=== PATIENT | male | born 1950 | race Caucasian/White ===

== ENCOUNTER → 2017-08-10 08:59 | Outpatient (CLI) | payer MEDICARE, MEDICAID, SELFPAY ==
[2017-08-10 10:46] VITALS: PULSE 83; PULSE 84; PULSE 91; PULSE 95; PULSE 98; PULSE 99; O2SAT 94; O2SAT 95; O2SAT 96; O2SAT 97
--- NOTE | 2017-08-10 12:11 | WT_ITS ---
PSN 6 Minute Walk Test - 6 Minute Walk Test 6 Minute Walk Test: 6 Minute Walk Test PSN:6-Minute Walk Test Start: 08/10/17 09: 33 Freq: Status: Active Protocol: RESP.6MINW Document 08/10/17 10:46 MISAELSANDEE (Rec: 08/10/17 10:48 TATYANALUCASSANDEE [id number]) 6 Minute Walk Test Date Performed 08/10/17 Time Performed 09:15 Height 5 ft 8 in Weight: 205 lb Weight in Pounds 205.[address]: Carlos Pop Assistive device used: None Pre-test Oxygen Delivery Method Room Air Pulse Ox (%) 94 Pulse Rate (60-100 beats/min) 84 Dyspnea Rico Scale (0-10) 0 Exertion Rico Scale (6-20) 6 1st minute Oxygen Delivery Method Room Air Pulse Ox (%) 95 Pulse Rate (60-100 beats/min) 91 2nd minute Oxygen Delivery Method Room Air Pulse Ox (%) 95 Pulse Rate (60-100 beats/min) 99 3rd minute Oxygen Delivery Method Room Air Pulse Ox (%) 95 Pulse Rate (60-100 beats/min) 95 4th minute Oxygen Delivery Method Room Air Pulse Ox (%) 95 Pulse Rate (60-100 beats/min) 98 5th minute Oxygen Delivery Method Room Air Pulse Ox (%) 95 Pulse Rate (60-100 beats/min) 98 6th minute Oxygen Delivery Method Room Air Pulse Ox (%) 96 Pulse Rate (60-100 beats/min) 98 Dyspnea Rico Scale (0-10) 2 Exertion Rico Scale (6-20) 14 Post-test Oxygen Delivery Method Room Air Pulse Ox (%) 97 Pulse Rate (60-100 beats/min) 83 Full Laps Walked 14 Partial Lap, Number of Tiles Walked 15 Total Distance Walked (ft) 841 - Interpretation Interpretation: The patient ambulated 841 feet over the course of 6 minutes on room air without assistive devices or breaks. Pretesting oxygen saturation was noted to be 94% on room air. With ambulation, the michelle oxygen saturation was 95%. Although there was evidence of impaired walk distance, there was no significant exertional oxygen desaturation noted. - Recommendations Recommendations: There is no indication for the use of supplemental oxygen at this time.
== END ==
PROVIDERS: Family Provider Family Medicine; PCP Family Medicine; Visit Provider Internal Medicine Critical Care Medicine
DX: J44.9 Chronic obstructive pulmonary disease, unspecified (principal)
CPT/HCPCS: 94618

== ENCOUNTER 2017-08-20 04:36 | Emergency (ER) | payer MEDICARE, MEDICAID, SELFPAY ==
[2017-08-20 04:37] VITALS: BP 123/65; PULSE 87; RESP 17; TEMP 36.5; O2SAT 98; BMI 30.2
--- NOTE | 2017-08-20 04:58 | CT_ITS ---
STUDY: CT ABDOMEN AND PELVIS WITHOUT CONTRAST REASON FOR EXAM: Male, 67 years old. Nausea and vomiting. Lower abdominal pain for 5 days. History of gastric ulcer, MRI, stent, CABG, and lumbar surgery. RADIATION DOSAGE (If Supplied By Facility): CTDIvol = ( 13.87 ) mGy, DLP = ( 678.97 ) mGycm TECHNIQUE: Transaxial images were obtained from the dome of the diaphragm to the symphysis pubis without oral contrast, and without intravenous contrast. Sagittal and coronal images were reconstructed. Individualized dose optimization techniques were used for this CT. COMPARISON: CT scan 03/10/2017. 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 There is no demonstrated pulmonary infiltrate. The visualized portions of the heart are within normal limits. There are pacemaker wires. Normal liver. Normal gallbladder and extrahepatic biliary system. Normal spleen. Normal pancreas. Normal bilateral adrenal glands. Normal right kidney. Normal left kidney. There is a small hiatal hernia. Assessment of the stomach is otherwise limited by nondistention. Normal small intestine. There are multiple colonic diverticula consistent with diverticulosis. The appendix is visualized on axial images 102-109 and it appears normal.. There is diffuse atherosclerotic calcification of the abdominal aorta, without a demonstrated aneurysm. Normal inferior vena cava. Normal retroperitoneum. Normal urinary bladder. There is 400 mL of urine in the urinary bladder. There are small inguinal hernias which contain fat, but no bowel. There are multilevel degenerative changes of the visualized lumbar spine. CT/Abdomen/Pelvis without Cont IMPRESSION: Mild colonic diverticulosis, without evidence for acute diverticulitis. Small hiatal hernia. Atherosclerosis. No evidence for acute pathology. No demonstrated urinary calculi or hydronephrosis. No evidence for appendicitis. Electronically Signed: Aleksey Christian MD at 5:59 EST , Service support ,
--- NOTE | 2017-08-20 04:58 | EKG12_ITS ---
Test Reason : Blood Pressure : / mmHG Vent. Rate : 070 BPM Atrial Rate : 070 BPM P-R Int : 146 ms QRS Dur : 100 ms QT Int : 426 ms P-R-T Axes : 055 001 144 degrees QTc Int : 460 ms Normal sinus rhythm ST & T wave abnormality, consider anterolateral ischemia Prolonged QT Abnormal ECG Confirmed by GERONIMO BLOOM ([id number]), newspaper or periodical editor LANDRY YARBROUGH ([id number]) on 08/25/2017 10:12:36 AM Referred By: BRODIE Confirmed By:GERONIMO BLOOM
--- NOTE | 2017-08-20 05:00 | ED.VISSUMM ---
- ER Visit Summary Date of Service: 08/20/17 Chief Complaint: Nausea and vomiting History of Present Illness: The patient is a 67 M presenting with nausea and vomiting ?5 days. Patient states he has been dry heaving all day today. He has not been able to keep food or liquids down. He complains of diffuse abdominal cramping from dry heaving. Denies diarrhea. Denies fever. Denies chest pain or shortness of breath. He has Zofran at home which is not helping his symptoms. Physical Examination: Vitals are stable. Patient is afebrile. Alert no acute distress. HEENT exam is unremarkable. Neck is supple. Lungs are clear and equal bilaterally. Heart is regular rate and rhythm. Abdomen is soft mild diffuse tenderness with no rebound or guarding Extremities are unremarkable. Skin is warm and dry. No focal neurologic deficit. Remainder of exam is unremarkable. Emergency Department Course and Treatment: Patient is given IV fluids, Zofran. CBC, chemistries show BUN 25 creatinine 1.60 this is similar to previous. Liver lipase are normal. Troponin is negative. EKG is sinus rate 70 with anterolateral T-wave inversion unchanged from previous EKG. CT abdomen pelvis shows no acute pathology. Patient continues to have nausea. He was given Phenergan. He states he has had this in the past without allergy. He is feeling improved following Phenergan. He is able to tolerate p.o. in the emergency department. He will follow-up with his primary care physician. He is advised return to ED if worsening complaints. Disposition: Discharge home Impression: Nausea and vomiting This note was generated with TriOv[employer] dictation software. It may contain incorrect words, spelling, and punctuation that were not noted in review of the chart prior to signing ED Disposition - Plan for ED Patient: Disposition: Home or Assisted Living Chief Complaint: Nausea/Vomiting Referrals: Juan De La Vega III, MD [Primary Care Provider] -
[2017-08-20] MEDS: Ondansetron 4 MG/2 ML Vial IV (05:15)
[2017-08-20] MEDS: 0.9% Normal Saline 1,000 ML 1000 ML IV (05:15)
[2017-08-20 05:21] LABS: Absolute Lymphocyte Count 1.61 X10^3/ul (0.83-4.51); Absolute Neutrophil Count 4.3 X10^3/uL (2.0-7.7); Basophil# 0.03 X10^3/uL; Basophil% 0.4 % (0-1); Eosinophil# 0.26 X10^3/uL; Eosinophils% 3.7 % (0-5); Hematocrit 40.2 % (40-54); Hemoglobin 13.3 g/dl (13.0-16.5); Lymphocyte # 1.61 X10^3/ul (4.0); Lymphocyte % 22.9 % (19-41); Mean Corp Hgb Conc 33.1 g/gl (32-36); Mean Corpuscular Hgb 30.2 pg (27.0-32.0); Mean Corpuscular Volume 91.2 fL (80-94); Mean Platelet Vol. 9.8 fl (6.2-12.0); Monocyte# 0.79 X10^3/uL; Monocyte% 11.2 % (0-10); Neutrophil # 4.34 X10^3/uL (2.7-7.7); Neutrophil % 61.7 % (47-70); POSITIVE COUNT NO; POSITIVE DIFFERENTIAL NO; POSITIVE MORPHOLOGY NO; Platelet Count 280 K/mm3 (150-450); RBC Distribution Width CV 15.1 % (11.6-14.6); RBC Distribution Width SD 49.5 fl (35.1-43.9); Red Blood Count 4.41 M/mm3 (4.6-6.2)
--- NOTE | 2017-08-20 05:31 | ED.RN ---
PT REQUESTS PAIN MEDICATION, DR. CALLOWAY MADE AWARE.
[2017-08-20 05:47] LABS: ALB/GLOB Ratio 1.1 RATIO (0.9-2.4); AST(SGOT) 28 U/L (15-37); Alanine Aminotransfer ALT/SGPT 38 U/L (12-78); Albumin, Serum 3.9 g/dL (3.4-5.0); Alkaline Phosphatase 53 U/L (45-117); Anion Gap 10 (5-15); BUN 25 mg/dL (7-18); BUN/Creat Ratio 15.6 RATIO (10-20); Calcium,Total 8.5 mg/dL (8.5-10.1); Chloride 104 mmol/L (98-107); EST Glomerular Filtration Rate 46 mL/min (>60); Est Glom Filt Rate - Afr Amer 56 mL/min (>60); Estimated Creatinine Clearance 45.41 ml/min; Globulin 3.6 g/dL (2.2-4.2); Glucose 105 mg/dL (70-110); Lipase 65 U/L (73-393); Potassium 4.2 mmol/L (3.5-5.1); Protein, Total 7.5 g/dL (6.4-8.2); Sodium Level 138 mmol/L (136-145)
[2017-08-20 07:02] VITALS: BP 135/58; PULSE 68; O2SAT 94
--- NOTE | 2017-08-20 07:28 | ED.DEP ---
ED Disposition - Plan for ED Patient: Disposition: Home or Assisted Living Chief Complaint: Nausea/Vomiting Instructions: ED Nausea Vomiting Prescriptions: ProMETHAzine [Phenergan] 25 mg PO Q6H PRN PRN #10 tablet PRN Reason: Nausea Referrals: Juan De La Vega III, MD [Primary Care Provider] -
[2017-08-20 08:18] VITALS: BP 129/79; PULSE 72; RESP 18; O2SAT 97
== END 2017-08-20 08:23 | disposition home or self-care (01) ==
LOC: ED 05:20
PROVIDERS: Emergency Provider Emergency Medicine; Family Provider Family Medicine; PCP Family Medicine
DX: R11.2 Nausea with vomiting, unspecified (principal); R10.9 Unspecified abdominal pain; K21.9 Gastro-esophageal reflux disease without esophagitis; I25.10 Atherosclerotic heart disease of native coronary artery without angina pectoris; J44.9 Chronic obstructive pulmonary disease, unspecified; I50.9 Heart failure, unspecified; I25.2 Old myocardial infarction; E11.9 Type 2 diabetes mellitus without complications; E78.00 Pure hypercholesterolemia, unspecified; I12.9 Hypertensive chronic kidney disease with stage 1 through stage 4 chronic kidney disease, or unspecified chronic kidney disease; M10.9 Gout, unspecified
CPT/HCPCS: 74176; 80053; 83690; 84484; 85025; 87804; 93005; 96361; 96374; 96375; 99283; J7030; J2405

== ENCOUNTER 2017-09-08 06:36 | Day surgery (SDC) | payer MEDICARE, MEDICAID, SELFPAY ==
--- NOTE | 2017-09-07 08:30 | EGD_PTH ---
PATIENT: LANNY WRIGHT LOC: EN U#:[id number] AGE/SX: 67/M ROOM: RE09/08/[address]: Dr. Shimon De La Vega MD : [id number] BED: DIS: 09/08/2017 SPEC #: [id number] RECD: 09/08/17 12:42 STATUS: ISSA MARIO #: [id number] SHILOH: 09/07/17 08:[address]: Shimon De La Vega DEPT: SURGICAL PATHOLOGY RECD BY: Abrahan Hughes ENTERED: 09/08/17 13:57 SP TYPE: EGD BIOPSY DANUTA DR: Dr. Juan De La Vega III, MD Tissues: A - Gastric mucous membrane B - Esophageal mucous membrane C - Transverse colon Procedures: Surgery Specimen Level IV HEADER OPERATION: EGD with biopsy, colonoscopy with polypectomy PRE-OP DIAGNOSIS: Nausea and vomiting, abdomen pain TISSUE SUBMITTED: A ? Antrum biopsy, B ? Distal esophagus biopsy, C ? Mid transverse polyp MICROSCOPIC DIAGNOSIS A. Gastric antrum, biopsy: Minimal chronic inflammation. B. Distal esophagus, biopsy: No significant pathologic change. No change of reflux. C. Mid transverse colon polyp, biopsy: Tubular adenoma. Fecal debris. AM:violette 09/09/17 MICROSCOPIC DESCRIPTION Slides are reviewed. GROSS DESCRIPTION A - Received in fixative is one container labeled with the patient's name and designated antrum biopsy. The specimen consists of one irregular fragment of light cordova soft tissue that measures 0.3 x 0.3 x 0.1 cm. The specimen is totally submitted in one cassette. B - Received in fixative is one container labeled with the patient's name and designated distal esophagus. The specimen consists of one irregular fragment of light cordova soft tissue that measures 0.6 x 0.2 x 0.1 cm. The specimen is totally submitted in one cassette. C - Received in fixative is one container labeled with the patient's name and designated mid transverse polyp. The specimen consists of multiple irregular fragments of light cordova soft tissue that in aggregate measure 0.5 x 0.3 x 0.1 cm. The specimen is totally submitted in one cassette. / AM:violette 09/08/17 TC:5 CPT: 11841 x3
[2017-09-08 07:01] VITALS: BP 123/65; PULSE 90; RESP 18; TEMP 36.8; O2SAT 99
[2017-09-08 07:56] LABS: Bedside Glucose 105 mg/dL (70-110)
--- NOTE | 2017-09-08 09:02 | PCM.OPRPT ---
Problem List (1) Abdominal pain Status: Acute Qualifiers: Abdominal location: generalized Qualified Code(s): R10.84 - Generalized abdominal pain Report of Operation Date of Procedure: 09/08/17 Pre-Operative Diagnosis: Nausea and vomiting and diffuse abdominal pain with history of peptic ulcer disease. Post-Operative Diagnosis: Minimal antral gastritis, moderate hiatal hernia, nonobstructing Schatzki ring. 1.2 cm sessile mid transverse colon polyp. Descending and sigmoid diverticulosis Surgery/Procedure Performed:: Esophago-gastroduodenoscopy with antral and distal esophageal biopsies. Colonoscopy with saline lift and snare polypectomy with hemostatic clip placement Description of Surgical Findings:: Informed consent was obtained 67-year-old gentleman was taken to the endoscopy suite. Because of medical comorbidities who underwent monitored anesthesia care. Oropharynx anesthetized with Cetacaine. Flexible gastroscope was inserted through the proximal mid distal esophagus. The EG junction was at 40 cm. A small hiatal hernia noted with a nonobstructing Schatzki ring. The scope was advanced into the stomach and then readily advanced through the pylorus. The first and second portion of the duodenum were inspected this was not remarkable. The scope was withdrawn back into the stomach and the prior [place] area was carefully inspected. I did not see any evidence of ongoing ulceration. The scope was retroflexed the EG junction and cardia inspected. Small hiatal hernia noted. The greater and lesser curvatures were inspected this did not appear to be remarkable. Scope was advanced back to the prepyloric area where biopsy was obtained. Excess fluid and air was aspirated free the scope was withdrawn to the distal esophagus where the wide-open hiatal hernia and Schatzki ring was identified. Distal esophageal biopsy was obtained. It is of note that the patient was very reactive with a lot of oral secretions and the lack of movement despite the monitored anesthesia care. Visualization was challenged by this. I did not want to over stay treatment. The scope was withdrawn with the patient tolerating it well. Patient was kept in left upper skin position. Digital rectal exam demonstrated moderate internal and external hemorrhoids. 2+ smooth prostate. Flexible colonoscope inserted the rectum and advanced through a tortuous sigmoid colon the scope was then advanced through the transverse colon into the cecum. The cecum ileocecal valve area was achieved. The scope was carefully withdrawn from the ascending and transverse colon. In the mid transverse colon I thought there was a 1.2 cm diameter sessile polyp. Photographs obtained. Saline lift was used to inject and elevate the polyp. I then used a hot snare in piecemeal fashion to re-resect and retrieved. I placed 2 hemostatic clips to assure hemostasis and integrity. The scope was then further withdrawn through the remainder of the transverse colon descending colon and sigmoid colon. Diverticulosis of the descending and sigmoid colon noted but no active inflammation. The scope was withdrawn to the rectum retroflex anorectal verge inspected hemorrhoidal changes noted but no active bleeding. The procedure was completed with the patient tolerating it well. Impression resolved prepyloric ulcer with no evidence of active gastric disease. Hiatal hernia with Schatzki ring. Tiny would be suspicious for reflux esophagitis. Sessile polyp of the mid transverse colon. Diverticulosis of the descending and sigmoid colon. These findings correlate with abdominal pain. The patient will be notified of pathology results as they become available. Previous flexible sigmoidoscopy was February 13, 2016. Will recommend follow-up colonoscopy in 5 years. The patient will be notified of pathology results as they become available. Cc: Dr. Juan De La Vega, III The upper endoscopy was initiated at 0827. And completed at 0832. The colonoscopy was initiated at 0835. The cecum was reached at 0843.56. The upper endoscopy was completed at 0857.32 Type of Anesthesia:: MAC
[2017-09-08 09:07] VITALS: BP 123/65; BP 124/75; PULSE 78; RESP 20; TEMP 36.2; O2SAT 96
[2017-09-08 09:10] VITALS: BP 123/65; BP 124/75; PULSE 81; RESP 20; O2SAT 99
[2017-09-08 09:15] VITALS: BP 123/65; BP 132/85; PULSE 77; RESP 22; O2SAT 98
[2017-09-08 09:25] VITALS: BP 123/65; PULSE 69; RESP 20; TEMP 36.2; O2SAT 97
[2017-09-08 09:50] VITALS: BP 123/65
== END 2017-09-08 09:53 | disposition home or self-care (01) ==
LOC: EN 06:37 → AC 06:39
PROVIDERS: Family Provider Family Medicine; PCP Family Medicine; Visit Provider Surgery
PROC: 0DJD8ZZ Inspection of Lower Intestinal Tract, Via Natural or Artificial Opening Endoscopic (ICD-10-PCS; CPT 45378; principal; 2017-09-08 07:40)
DX: D12.3 Benign neoplasm of transverse colon (principal); R10.84 Generalized abdominal pain; K22.2 Esophageal obstruction; K57.30 Diverticulosis of large intestine without perforation or abscess without bleeding; K44.9 Diaphragmatic hernia without obstruction or gangrene; K64.4 Residual hemorrhoidal skin tags; I25.5 Ischemic cardiomyopathy; J44.9 Chronic obstructive pulmonary disease, unspecified; K21.9 Gastro-esophageal reflux disease without esophagitis; E78.00 Pure hypercholesterolemia, unspecified; E11.9 Type 2 diabetes mellitus without complications; N18.3 Chronic kidney disease, stage 3 (moderate); I12.9 Hypertensive chronic kidney disease with stage 1 through stage 4 chronic kidney disease, or unspecified chronic kidney disease; Z87.891 Personal history of nicotine dependence; I25.10 Atherosclerotic heart disease of native coronary artery without angina pectoris; I25.2 Old myocardial infarction; Z95.810 Presence of automatic (implantable) cardiac defibrillator; I50.22 Chronic systolic (congestive) heart failure; Z79.82 Long term (current) use of aspirin
CPT/HCPCS: 43239; 45385; 82962; 88305; J7120; A4216

== ENCOUNTER 2017-09-16 06:14 | Emergency (ER) | payer MEDICARE, MEDICAID, SELFPAY ==
[2017-09-16 06:15] VITALS: BP 140/68; PULSE 97; RESP 20; TEMP 36.4; O2SAT 99; BMI 31.3
--- NOTE | 2017-09-16 06:33 | CT_ITS ---
STUDY: CT ABDOMEN AND PELVIS WITHOUT CONTRAST REASON FOR EXAM: Male, 67 years old. 4 day history of abdominal pain and vomiting. RADIATION DOSAGE (If Supplied By Facility): CTDIvol = ( 13.27 ) mGy, DLP = ( 623.03 ) mGycm TECHNIQUE: Transaxial images were obtained from the dome of the diaphragm to the symphysis pubis without oral contrast, and without intravenous contrast. Sagittal and coronal images were reconstructed. Individualized dose optimization techniques were used for this CT. COMPARISON: Comparison is made with prior study dated August 20, 2017. FINDINGS: Stable mild increased markings of the lung bases suggests mild scarring. A dual-chamber pacemaker device is seen. Normal liver. Normal gallbladder and extrahepatic biliary system. Normal spleen. Normal pancreas. Normal bilateral adrenal glands. Normal right kidney. Normal left kidney. There is a small hiatal hernia. Normal small intestine. There are multiple colonic diverticula consistent with diverticulosis. The appendix is visualized and appears normal. There is diffuse atherosclerotic calcification of the abdominal aorta, without a demonstrated aneurysm. Normal inferior vena cava. There is borderline retroperitoneal lymphadenopathy with enlarged nodes no greater than 10mm in the short axis diameter. Distended urinary bladder. There are prostatic calcifications. Small bilateral inguinal hernias containing fat. Small benign-appearing bilateral inguinal lymph nodes. There are diffuse degenerative changes of the visualized lumbar spine. CT/Abdomen/Pelvis without Cont IMPRESSION: Small hiatal hernia. Sigmoid diverticulosis without evidence of diverticulitis. No other abnormality is seen. Electronically Signed: Arcenio Leary MD at 8:24 EST Tel [phone], Service support ,
[2017-09-16] MEDS: Ondansetron 4 MG/2 ML Vial IV (06:42)
[2017-09-16 06:51] LABS: Absolute Lymphocyte Count 1.52 X10^3/ul (0.83-4.51); Absolute Neutrophil Count 5.8 X10^3/uL (2.0-7.7); Basophil# 0.02 X10^3/uL; Basophil% 0.2 % (0-1); Eosinophil# 0.33 X10^3/uL; Eosinophils% 3.9 % (0-5); Hematocrit 39.3 % (40-54); Hemoglobin 12.8 g/dl (13.0-16.5); Lymphocyte # 1.52 X10^3/ul (4.0); Lymphocyte % 18.2 % (19-41); Mean Corp Hgb Conc 32.6 g/gl (32-36); Mean Platelet Vol. 9.9 fl (6.2-12.0); Monocyte% 8.4 % (0-10); Neutrophil # 5.78 X10^3/uL (2.7-7.7); Neutrophil % 69.2 % (47-70); Platelet Count 262 K/mm3 (150-450); RBC Distribution Width CV 14.8 % (11.6-14.6); RBC Distribution Width SD 49.6 fl (35.1-43.9); Red Blood Count 4.27 M/mm3 (4.6-6.2); White Blood Count 8.4 K/mm3 (4.4-11.0)
[2017-09-16 06:54] LABS: POSITIVE COUNT NO; POSITIVE DIFFERENTIAL NO; POSITIVE MORPHOLOGY NO
[2017-09-16 06:55] LABS: AST(SGOT) 46 U/L (15-37); Alanine Aminotransfer ALT/SGPT 39 U/L (16-61); Albumin, Serum 3.8 g/dL (3.2-5.0); Alkaline Phosphatase 81 U/L (45-117); Anion Gap 9 (5-15); BUN 33 mg/dL (7-18); BUN/Creat Ratio 15.3 RATIO (10-20); Calcium,Total 8.7 mg/dL (8.5-10.1); Chloride 105 mmol/L (98-107); Creatinine, Serum 2.15 mg/dL (0.70-1.30); EST Glomerular Filtration Rate 33 mL/min (>60); Est Glom Filt Rate - Afr Amer 40 mL/min (>60); Globulin 3.7 g/dL (2.2-4.2); Glucose 110 mg/dL (74-106); Lipase 102 U/L (73-393); Potassium 4.8 mmol/L (3.5-5.1); Protein, Total 7.5 g/dL (6.4-8.2); Sodium Level 140 mmol/L (136-145)
--- NOTE | 2017-09-16 07:32 | ED.RN ---
pt states medication not working. dr jensen
--- NOTE | 2017-09-16 08:05 | ED.VISSUMM ---
- ER Visit Summary Date of Service: 09/16/17 Chief Complaint: Abdominal pain, nausea or vomiting History of Present Illness: The patient is a 67 M 4 day history of generalized abdominal pain, nausea and vomiting. No hematemesis. He states over the past 4 days of vomiting 5060 times. Normal bowel movement yesterday. States that EGD, colonoscopy approximately a week ago by Dr. De La Vega, states his ulcers were not acting up also had a polypectomy. States he was told possibly his gallbladder. He has not eaten in 4 days. No urinary symptoms. Kidney stones when he was younger. States chronic kidney disease history. History of CHF. Inguinal hernia repair in the past. Physical Examination: General: Alert and oriented ?3, mild tress HEENT: Normocephalic, atraumatic. Dry generalized tenderness without guarding or rebound. Mucosa membranes Neck: supple, nontender. Cardiovascular: Regular rate and rhythm, no murmurs Respiratory: Normal breath sounds, symmetric, no distress Abdomen: Soft, generalized tenderness, mostly right upper quadrant, lower quadrants, no guarding or rebound. Incisional hernia epigastric region, reducible. Extremities: Nontender, no edema, pulses intact ?4 Neuro: no focal neurological deficits. Test Results: CBC with white count 8.9. Hemoglobin 12.8. Creatinine 2.15. BUN 33. Lipase 102. Liver enzymes normal. UA pending. CT abdomen pelvis pending Emergency Department Course and Treatment: Patient with a nonsurgical abdomen. However with discomfort given morphine Zofran IV fluids. Additional Phenergan was given. Abdominal labs normal except for creatinine 2.15. Previous creatinine was between 1.45-1.60. Continued IV fluids. CT scan is pending. Urine is pending. Patient will be signed out to morning physician for re-evaluation. Treatment Plan: [] Disposition: Pending Impression: 1. Abdominal pain 2. Nausea vomiting 3. Acute on chronic renal insufficiency This note was generated with F[employer]ptop dictation software. It may contain incorrect words, spelling, and punctuation that were not noted in review of the chart prior to signing ED Disposition - Plan for ED Patient: Chief Complaint: Nausea/Vomiting Diagnosis: Abdominal pain, Nausea and vomiting, Acute on chronic renal insufficiency Referrals: Juan De La Vega III, MD [Primary Care Provider] -
--- NOTE | 2017-09-16 08:15 | ED.DCSUM_ITS ---
- ER Visit Summary Date of Service: 09/16/17 Chief Complaint: Abdominal pain, nausea or vomiting History of Present Illness: The patient is a 67 M 4 day history of generalized abdominal pain, nausea and vomiting. No hematemesis. He states over the past 4 days of vomiting 5060 times. Normal bowel movement yesterday. States that EGD, colonoscopy approximately a week ago by Dr. De La Vega, states his ulcers were not acting up also had a polypectomy. States he was told possibly his gallbladder. He has not eaten in 4 days. No urinary symptoms. Kidney stones when he was younger. States chronic kidney disease history. History of CHF. Inguinal hernia repair in the past. Physical Examination: General: Alert and oriented ?3, mild tress HEENT: Normocephalic, atraumatic. Dry generalized tenderness without guarding or rebound. Mucosa membranes Neck: supple, nontender. Cardiovascular: Regular rate and rhythm, no murmurs Respiratory: Normal breath sounds, symmetric, no distress Abdomen: Soft, generalized tenderness, mostly right upper quadrant, lower quadrants, no guarding or rebound. Incisional hernia epigastric region, reducible. Extremities: Nontender, no edema, pulses intact ?4 Neuro: no focal neurological deficits. Test Results: CBC with white count 8.9. Hemoglobin 12.8. Creatinine 2.15. BUN 33. Lipase 102. Liver enzymes normal. UA pending. CT abdomen pelvis pending Emergency Department Course and Treatment: Patient with a nonsurgical abdomen. However with discomfort given morphine Zofran IV fluids. Additional Phenergan was given. Abdominal labs normal except for creatinine 2.15. Previous creatinine was between 1.45-1.60. Continued IV fluids. CT scan is pending. Urine is pending. Patient will be signed out to morning physician for re- evaluation. Treatment Plan: [] Disposition: Pending Impression: 1. Abdominal pain 2. Nausea vomiting 3. Acute on chronic renal insufficiency This note was generated with [employer] dictation software. It may contain incorrect words, spelling, and punctuation that were not noted in review of the chart prior to signing ED Disposition - Plan for ED Patient: Chief Complaint: Nausea/Vomiting Diagnosis: Abdominal pain, Nausea and vomiting, Acute on chronic renal insufficiency Referrals: Juan De La Vega III, MD [Primary Care Provider] -
[2017-09-16 08:26] VITALS: BP 111/65; PULSE 81; RESP 17; O2SAT 95
[2017-09-16] MEDS: 0.9% Normal Saline 1,000 ML 150 ML IV (09:02)
[2017-09-16 09:03] VITALS: BP 117/67; PULSE 89; RESP 20; O2SAT 96
[2017-09-16 09:04] LABS: Bacteria 0 SEEN /hpf (None Seen); Mucous, Urine 0 SEEN /hpf (<or=2+); Squamous Epithelial Cells - UA 0 SEEN /hpf (0-5)
[2017-09-16 09:06] LABS: Color, Urine Yellow (Yellow); Glucose, Dipstick Normal (Normal); Ketone-Dipstick Negative (Negative); Leukocyte Esterase-Dipstick Negative /ul (Negative); Nitrite-Dipstick Negative (Negative); Occult Blood-Urine Negative /ul (Negative); Protein-Dipstick Negative (Negative); Specific Gravity, Urine 1.015 (1.002-1.030); Urine Bilirubin Dipstick Negative (Negative); Urine Clarity Clear (Clear); Urine Urobilinogen Normal (Normal)
[2017-09-16 09:23] LABS: Red Blood Cells-Urine 0-5 SEEN /hpf (0-5); White Blood Cells 0-5 SEEN /hpf (0-5)
--- NOTE | 2017-09-16 09:43 | ED.RN ---
pt sleeping. respirations even and unlabored. maldonado has drained approx 1000
--- NOTE | 2017-09-16 09:55 | ED.DEP ---
ED Disposition - Plan for ED Patient: Disposition: Home or Assisted Living Chief Complaint: Nausea/Vomiting Diagnosis: Acute on chronic renal insufficiency Instructions: ED Retention Urinary Male, ED Insufficiency Renal Prescriptions: Tamsulosin HCl [Flomax] 0.4 mg PO DAILY #30 cap Referrals: Juan De La Vega III, MD [Primary Care Provider] - As soon as possible Adam Ryder MD [STAFF PHYSICIAN] - As soon as possible Additional Instructions: You will need to follow-up either with Dr. Juan De La Vega your primary care physician or Dr. Strauss prolonged no urologist to be reassessed. They will need to remove your Med[place] catheter and make sure that you are able to urinate. The reason why you are having abdominal pain today is because you are retaining urine. Only place the Medina catheter your bladder had over 1 L of urine in it. He will be placed on Flomax medication to help you urinate. He will need all this reevaluated. Your kidney function was a little worse today but that may improve now that you are able to urinate.
[2017-09-16 11:28] VITALS: BP 133/100; BP 133/107; PULSE 77; RESP 17
== END 2017-09-16 11:30 | disposition home or self-care (01) ==
PROVIDERS: Emergency Provider Emergency Medicine; Family Provider Family Medicine; PCP Family Medicine
DX: R33.9 Retention of urine, unspecified (principal); R10.9 Unspecified abdominal pain; R11.2 Nausea with vomiting, unspecified; R05 Cough; E11.9 Type 2 diabetes mellitus without complications; I12.9 Hypertensive chronic kidney disease with stage 1 through stage 4 chronic kidney disease, or unspecified chronic kidney disease; N18.9 Chronic kidney disease, unspecified; J44.9 Chronic obstructive pulmonary disease, unspecified; K21.9 Gastro-esophageal reflux disease without esophagitis; I25.10 Atherosclerotic heart disease of native coronary artery without angina pectoris; I50.9 Heart failure, unspecified; I25.2 Old myocardial infarction; Z95.1 Presence of aortocoronary bypass graft; Z72.0 Tobacco use; Z87.442 Personal history of urinary calculi
CPT/HCPCS: 51702; 74176; 80053; 81001; 83690; 85025; 96361; 96374; 96375; 99285; J7030; J7040; A4216; J2405

== ENCOUNTER 2017-10-16 08:50 | Observation (INO) | payer MEDICARE, SELFPAY ==
[2017-10-16] VITALS (18 sets, daily range): BP systolic 95–128; BP diastolic 55–76; PULSE 59–84; RESP 12–20; TEMP 36.6–37.1; O2SAT 94–100; BMI 30.9; BMI 32.5
--- NOTE | 2017-10-16 08:53 | EKG12_ITS ---
Test Reason : CP Blood Pressure : / mmHG Vent. Rate : 078 BPM Atrial Rate : 078 BPM P-R Int : 148 ms QRS Dur : 100 ms QT Int : 420 ms P-R-T Axes : 041 -01 148 degrees QTc Int : 478 ms Normal sinus rhythm ST & T wave abnormality, consider lateral ischemia Abnormal ECG Confirmed by SHAVONNE LUNDBERG, LISA ([id number]), continuity editor LANDRY YARBROUGH ([id number]) on 10/20/2017 1:29:08 PM Referred By: SELVIN Confirmed By:LISA MARVIN MD
--- NOTE | 2017-10-16 09:02 | RAD_ITS ---
STUDY: X-RAY CHEST REASON FOR EXAM: Male, 67 years old. Chest pain TECHNIQUE: Single AP portable view of the chest. COMPARISON: None. FINDINGS: Pacemaker is seen on the left side The lungs are clear and expanded. There is no demonstrated pleural abnormality. Normal size heart. Normal mediastinum and serjio. Normal visualized pulmonary arteries. Normal visualized aortic arch and descending thoracic aorta. Normal visualized thoracic spine. Normal visualized ribs, clavicles, and shoulders. There is no demonstrated abnormality of the visualized soft tissue structures of the upper abdomen. RAD/Chest 1 View (Portable) IMPRESSION: Normal x-ray examination of the chest. Electronically Signed: Lisa Aguilar MD at 9:25 EDT Tel , Service support ,
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
[2017-10-16 09:06] LABS: Absolute Lymphocyte Count 1.33 X10^3/ul (0.83-4.51); Absolute Neutrophil Count 4.1 X10^3/uL (2.0-7.7); Basophil# 0.02 X10^3/uL; Basophil% 0.3 % (0-1); Eosinophil# 0.35 X10^3/uL; Eosinophils% 5.3 % (0-5); Hemoglobin 12.1 g/dl (13.0-16.5); Lymphocyte # 1.33 X10^3/ul (4.0); Lymphocyte % 20.3 % (19-41); Mean Corp Hgb Conc 32.7 g/gl (32-36); Mean Corpuscular Hgb 30.3 pg (27.0-32.0); Mean Corpuscular Volume 92.5 fL (80-94); Mean Platelet Vol. 9.7 fl (6.2-12.0); Monocyte# 0.75 X10^3/uL; Monocyte% 11.5 % (0-10); Neutrophil # 4.09 X10^3/uL (2.7-7.7); Neutrophil % 62.4 % (47-70); Platelet Count 255 K/mm3 (150-450); RBC Distribution Width CV 14.6 % (11.6-14.6); White Blood Count 6.6 K/mm3 (4.4-11.0)
[2017-10-16 09:07] LABS: POSITIVE COUNT NO; POSITIVE DIFFERENTIAL NO; POSITIVE MORPHOLOGY NO
[2017-10-16] MEDS: 0.9% Normal Saline 1,000 ML 999 ML IV (09:09)
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
[2017-10-16 09:23] LABS: Anion Gap 7 (5-15); BUN 31 mg/dL (7-18); BUN/Creat Ratio 16.8 RATIO (10-20); Calcium,Total 8.4 mg/dL (8.5-10.1); Chloride 102 mmol/L (98-107); Creatinine, Serum 1.85 mg/dL (0.70-1.30); EST Glomerular Filtration Rate 39 mL/min (>60); Est Glom Filt Rate - Afr Amer 47 mL/min (>60); Estimated Creatinine Clearance 41.83 ml/min; Glucose 102 mg/dL (74-106); Potassium 3.8 mmol/L (3.5-5.1); Sodium Level 140 mmol/L (136-145)
[2017-10-16 09:31] LABS: Bacteria 0 SEEN /hpf (None Seen); Mucous, Urine 0 SEEN /hpf (<or=2+); Red Blood Cells-Urine 0 SEEN /hpf (0-5); Squamous Epithelial Cells - UA 0 SEEN /hpf (0-5); White Blood Cells 0 SEEN /hpf (0-5)
[2017-10-16 09:37] LABS: Color, Urine Yellow (Yellow); Glucose, Dipstick Normal (Normal); Ketone-Dipstick Negative (Negative); Leukocyte Esterase-Dipstick Negative /ul (Negative); Nitrite-Dipstick Negative (Negative); Occult Blood-Urine Negative /ul (Negative); Protein-Dipstick Negative (Negative); Specific Gravity, Urine 1.015 (1.002-1.030); Urine Bilirubin Dipstick Negative (Negative); Urine Clarity Clear (Clear); Urine Urobilinogen Normal (Normal)
[2017-10-16 09:45] LABS: Lactic Acid 1.3 mmol/L (0.4-2.0)
--- NOTE | 2017-10-16 09:55 | NURSING ---
HOSPITALIST PAGED DR MARVIN PAGED
--- NOTE | 2017-10-16 10:16 | NURSING ---
INTERIGATING PATIENTS
--- NOTE | 2017-10-16 10:47 | NURSING ---
DR VICKERS FOR DR RIVERA
--- NOTE | 2017-10-16 10:49 | NURSING ---
DR VICKERS WILL CALL BACK.
--- NOTE | 2017-10-16 11:12 | PCM.PACRNU ---
Pacer Nurse Hospital Visit Notes: Dual Chamber ICD Evaluation: Interrogation completed at bedside in ED rm#5 per MD order for ICD shocks reported by patient. Interrogation shows no VT/VF episodes since last check 05/14/17. Left pectoral pocket/incision w/o s/s of infection or erosion. Pt c/o chest pain and states he keeps getting shocked. Pt also stated this is not what I wanted to do on a Thursday afternoon and it is Thursday morning. Presenting rhythm shows NSR @ 77 bpm. Battery longevity approx 10.5 yrs. 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 1 MS episode, <1% total time since last check 05/14/17. Stored e-gram shows atrial flutter with appropriate MS lasting approx 3 secs. Lead impedances, sensing and ventricular threshold remain stable. Atrial threshold elevated since last threshold on 05/14/17 which was 0.9V/0.4ms today threshold is 1.7V/0.4ms. Increased A/V outputs for 2x safety margin. Counters cleared. ER physician, Dr. Khan notified of above and Dr. Inman notified of above. Pt had device implanted and has device followed at [facility]. Joy Abebe RN - Pacer Check Procedure Procedures: 53467 ICD Eval Dual
--- NOTE | 2017-10-16 11:31 | NURSING ---
PCU OBS CONFUSION??, ICD FIRED, LETHARGY ASHELFAH
[2017-10-16] MEDS: 0.9% Normal Saline 1,000 ML 75 ML IV (12:37)
--- NOTE | 2017-10-16 12:37 | PCM.HP.STD ---
Problem List (1) Diabetes mellitus Status: Chronic (2) Coronary atherosclerosis Status: Chronic (3) CHF (congestive heart failure) Status: Chronic (4) Chronic back pain Status: Chronic (5) HTN (hypertension) Status: Chronic (6) Presence of automatic implantable cardioverter-defibrillator Status: Resolved (7) H/O coronary artery bypass surgery Status: Resolved Comment: HUMPHREY-LAD, SVG-D1, SVG-OM (8) Chronic renal failure, stage 3 (moderate) Status: Chronic (9) Ischemic cardiomyopathy Status: Chronic Comment: 25% ejection fraction in November 2016 (10) Hyperlipidemia Status: Chronic (11) Type 2 diabetes mellitus Status: Chronic History of Present Illness Date of Admission: 10/16/17 Chief Complaint: Unclear history, reported firing defibrillator. The patient is a 67 year old M with multiple medical comorbidities as mentioned above presented to the emergency room because his ICD fired and because of reported chest pain. The patient is very poor informant and was not able to provide good history. When I asked him what is your main presenting symptom, he said abdominal pain that has been going on for months. Reportedly, patient was trying to drive himself to the hospital because of reported chest pain although at this time, patient denies any chest pain whatsoever today. Reportedly, patient's ICD fired. At this time, patient is somewhat sleepy and lethargic. He is oriented ?2, disoriented to time but he knows his full name, his date of and what he is at. At this time, he denied chest pain or shortness of breath. He mentioned that he take Percocet for chronic pain and today morning, he took his medication and he does not think that he overdosed on those medications. He had a history of CAD status post CABG and he has been on aspirin, Plavix, isosorbide mononitrate, metoprolol. He has a history of ischemic cardiomyopathy/chronic systolic CHF status post ICD and reportedly, his ICD fired today. He has a history of type 2 diabetes mellitus and has been on metformin, his most recent hemoglobin A1c was 6.7 on May,. In the emergency room, patient was afebrile, heart rate was stable, blood pressure was 95/65 and his pulse ox was 98% on room air. His routine blood work was remarkable for chronic anemia and creatinine 1.85 which is also chronic. His EKG revealed sinus rhythm without bundle branch block, no acute ischemic changes or cardiac arrhythmias. Chest x-ray showed no acute infiltrate, consolidation or effusion. ICD interrogation performed at the bedside in the ER showed no V. tach/V. fib episodes. Dr. Inman identified and he mentioned that his ICD did not fire today. He is being admitted for lethargy, confusion and questionable ICD firing. Past Medical History Past Medical History (Chronic Problems): Chronic Problems (Last Reviewed 08/25/17 @ 12:41 by Tara Baxter) Tobacco dependence in remission (Chronic) Obesity (Chronic) Nicotine dependence (Chronic) Chronic bronchitis (Chronic) Tubular adenoma of colon (Chronic) Tinea manus (Chronic) Heart failure (Chronic) Diabetes mellitus (Chronic) Degenerative cervical disc (Chronic) Coronary atherosclerosis (Chronic) Claudication (Chronic) CHF (congestive heart failure) (Chronic) Chronic back pain (Chronic) HTN (hypertension) (Chronic) Presence of automatic implantable cardioverter-defibrillator (Chronic) Chronic renal failure, stage 3 (moderate) (Chronic) Chronic back pain greater than 3 months duration (Chronic) Chronic systolic (congestive) heart failure (Chronic) Stented coronary artery (Chronic ~12/2016) has had 7 stents as of 06/15/17 Ischemic cardiomyopathy (Chronic) 25% ejection fraction in November 2016 V-tach (Chronic) has an AICD Benign essential hypertension (Chronic) Gastroesophageal reflux disease (Chronic) Hyperlipidemia (Chronic) Type 2 diabetes mellitus (Chronic) Morbid obesity (Chronic) Tobacco abuse (Chronic) CAD (coronary artery disease) (Chronic) Colitis (Chronic) Allergies chlorpromazine HCl [From Thorazine] Allergy (Severe, Verified 09/16/17 06:18) Hives PER PATIENT tramadol HCl [From Ultram] Allergy (Severe, Verified 09/16/17 06:18) Hives PER PATIENT codeine Allergy (Intermediate, Verified 09/16/17 06:18) Hives atorvastatin Adverse Reaction (Intermediate, Verified 09/16/17 06:18) Other LEG PAIN/CRAMPS naproxen Adverse Reaction (Verified 09/16/17 06:18) Upset Stomach Home Medications: Ambulatory Orders Medication Instructions Recorded Metformin HCl [Glucophage] 250 mg PO BIDCM 11/16/13 Nitroglycerin [Nitrostat] 0.4 mg SUBLINGUAL Q5M PRN 09/17/15 Isosorbide Mononitrate [Imdur] 30 mg PO DAILY 02/18/17 Albuterol Aerosols [Ventolin 2.5 mg INHALATION Q4H PRN PRN 02/23/17 Aerosols] Ondansetron [Zofran Odt] 4 mg PO Q4H PRN PRN #10 tab.rapdis 02/23/17 Allopurinol 100 mg PO DAILY 05/05/17 Oxycodone HCl/Acetaminophen 1 tab PO Q6H PRN PRN 06/15/17 [Percocet 7.5-325 mg Tablet] Clopidogrel Bisulfate [Plavix] 75 mg PO DAILY #30 tab 06/17/17 metoprolol succinate ER 50 mg 50 mg PO DAILY 07/09/17 tablet,extended release [address] 40 mg granules 40 mg PO QDAY 07/09/17 delayed-release for susp in packet albuterol sulfate HFA 90 2 puff INHALATION Q4H PRN g 07/31/17 mcg/actuation aerosol inhaler aspirin 81 mg tablet,delayed 81 mg PO QDAY 07/31/17 release fenofibrate nanocrystallized 145 145 mg PO DAILY 07/31/17 mg tablet guaifenesin ER 600 mg tablet, 600 mg PO Q12H PRN 07/31/17 extended release 12 hr hydroxyzine HCl 25 mg tablet 25 mg PO Q6H PRN tab 07/31/17 metoclopramide 10 mg tablet 10 mg PO QAC PRN tab 07/31/17 nicotine 14 mg/24 hr daily 14 mg TRANSDERMAL Q24H 07/31/17 transdermal patch rosuvastatin 40 mg tablet 40 mg PO DAILY 07/31/17 spironolactone 25 mg tablet 25 mg PO QAM 07/31/17 proMETHazine tablet [Phenergan] 25 mg PO Q6H PRN PRN #10 tab 08/20/17 Furosemide 40 mg PO DAILY 09/03/17 Umeclidinium Brm/Vilanterol Tr 1 inh INHALATION DAILY 09/03/17 [Anoro Ellipta 62.5-25 Mcg INH] Tamsulosin HCl [Flomax] 0.4 mg PO DAILY #30 cap 09/16/17 Surgical History: coronary bypass surgery, - - defibrillater, 2 back surgery, hernia surgery. has had PTCA with 7 stents Psychiatric History: No pertinent psych hx Smoking Status: Current every day smoker Alcohol: None Drugs: None - *Family History Paternal History Items: Cancer, Heart Disease Maternal History Items: Cancer Review of Systems Constitutional: Reports: Weakness. Denies: Anorexia, Chills, Fever Eyes: Denies: Blurred vision, Double vision, Drainage, Redness HEENT: Denies: Difficulty Hearing, Ear Pain, Eye Pain, Nasal Congestion, Sore Throat Cardiovascular: Denies: Chest Pain, Chest Pressure, Chest Tightness, Palpitations, Syncope Respiratory: Denies: Cough, Pleuritic Pain, Shortness of Breath, Sputum production Gastrointestinal: Reports: Abdominal Pain, Constipation. Denies: Diarrhea, Nausea, Vomiting Genitourinary: Denies: Dysuria, Frequency, Hematuria Musculoskeletal: Denies: Arm Pain, Foot Pain, Hand Pain, Leg Pain, Shoulder Pain Skin: Denies: Dryness, Rash Neurological: Reports: Confusion. Denies: Balance problems, Change in Speech, Slurred speech, Headaches, Incoordination, Numbness Psychiatric: Denies: Anxiety, Depression Endocrine: Denies: Change in Body Habitus, Polydipsia VTE Information - Inpt Only VTE Present on Admission: No VTE Mechan Device Prophylaxis: None VTE Pharm Prophylaxis ordered?: Yes - Physical Exam General: Alert, Lethargic - Sleepy, oriented ?2, disoriented to time. HEENT: Atraumatic, PERRLA, EOMI Oral: Moist Mucosa, No Gingival or Mucosal Lesions/ Ulcerations Neck: Supple, No JVD, Negative Carotid Bruits, Trachea Midline, Thyroid Normal Size and Texture Lungs: Clear to auscultation, No rhonchi, No wheeze, No rales, Diminished Cardiovascular: Regular rate, Regular Rhythm, Normal S1, Normal S2, PMI Normal Abdomen: Bowel Sounds Present, Soft, Non Tender, Non-Distended, No Hepato-splenomegaly Extremities: No clubbing, No cyanosis, Edema - Trace edema. Skin: No rashes, No breakdown Lymphatic: No Cervical, Supraclavicular, or Inguinal Adenopathy Neurological: Cranial nerves II-XII grossly intact, Motor Exam 5/5 strength throughout Psych/Mental Status: Flat Affect Vital Signs Temp Pulse Resp BP Pulse Ox 98.5 F 65 17 108/55 L 95 10/16/17 08:53 10/16/17 11:16 10/16/17 11:16 10/16/17 11:16 10/16/17 11:16 Weight: 213 lb 13.574 oz Body Mass Index (BMI) 32.5 Laboratory Tests 10/16/17 10/16/17 10/16/17 Range/Units 09:25 09:10 08:58 WBC (4.4-11.0) K/mm3 RBC (4.6-6.2) M/mm3 Hgb (13.0-16.5) g/dl Hct (40-54) % MCV (80-94) fL MCH (27.0-32.0) pg MCHC (32-36) g/gl RDW (11.6-14.6) % RDW Differential (35.1-43.9) fl Plt Count (150-450) K/mm3 MPV (6.2-12.0) fl Immature Gran % (Auto) (0.0-0.9) % Neut % (Auto) (47-70) % Lymph % (Auto) (19-41) % [place] % (Auto) (0-10) % Eos % (Auto) (0-5) % Baso % (Auto) (0-1) % Absolute Neuts (auto) (2.0-7.7) X10^3/uL Absolute Lymphs (auto) (0.83-4.51) X10^3/ul Total Counted Sodium 140 (136-145) mmol/L Potassium 3.8 (3.5-5.1) mmol/L Chloride 102 (98-107) mmol/L Carbon Dioxide 31.0 (21.0-32.0) mmol/L Anion Gap 7 (5-15) BUN 31 H (7-18) mg/dL Creatinine 1.85 H (0.70-1.30) mg/dL Estim Creat Clear Calc 41.83 ml/min Est GFR (MDRD) Af Amer 47 L (>60) mL/min Est GFR (MDRD) Non-Af 39 L (>60) mL/min BUN/Creatinine Ratio 16.8 (10-20) RATIO Glucose 102 (74-106) mg/dL Lactic Acid 1.3 (0.4-2.0) mmol/L Calcium 8.4 L (8.5-10.1) mg/dL Troponin I < 0.02 (<0.06) ng/mL Urine Color Yellow (Yellow) Urine Clarity Clear (Clear) Urine pH 6.0 (5.0 - 8.0) Ur Specific [place] 1.015 (1.002-1.030) Urine Protein Negative (Negative) mg/dl Urine Glucose (UA) Normal (Normal) mg/dl Urine Ketones Negative (Negative) mg/dl Urine Occult Blood Negative (Negative) /ul Urine Nitrite Negative (Negative) Urine Bilirubin Negative (Negative) mg/dL Urine Urobilinogen Normal (Normal) mg/dl Ur Leukocyte Esterase Negative (Negative) /ul Urine RBC 0 SEEN (0-5) /hpf Urine WBC 0 SEEN (0-5) /hpf Ur Squamous Epith Cells 0 SEEN (0-5) /hpf Urine Bacteria 0 SEEN (None Seen) /hpf Urine Mucus 0 SEEN (<or=2+) /hpf 10/16/17 Range/Units 08:58 WBC 6.6 (4.4-11.0) K/mm3 RBC 4.00 L (4.6-6.2) M/mm3 Hgb 12.1 L (13.0-16.5) g/dl Hct 37.0 L (40-54) % MCV 92.5 (80-94) fL MCH 30.3 (27.0-32.0) pg MCHC 32.7 (32-36) g/gl RDW 14.6 (11.6-14.6) % RDW Differential 48.0 H (35.1-43.9) fl Plt Count 255 (150-450) K/mm3 MPV 9.7 (6.2-12.0) fl Immature Gran % (Auto) 0.200 (0.0-0.9) % Neut % (Auto) 62.4 (47-70) % Lymph % (Auto) 20.3 (19-41) % Jefferson % (Auto) 11.5 H (0-10) % Eos % (Auto) 5.3 H (0-5) % Baso % (Auto) 0.3 (0-1) % Absolute Neuts (auto) 4.1 (2.0-7.7) X10^3/uL Absolute Lymphs (auto) 1.33 (0.83-4.51) X10^3/ul Total Counted Not Reportable Sodium (136-145) mmol/L Potassium (3.5-5.1) mmol/L Chloride (98-107) mmol/L Carbon Dioxide (21.0-32.0) mmol/L Anion Gap (5-15) BUN (7-18) mg/dL Creatinine (0.70-1.30) mg/dL Estim Creat Clear Calc ml/min Est GFR (MDRD) Af Amer (>60) mL/min Est GFR (MDRD) Non-Af (>60) mL/min BUN/Creatinine Ratio (10-20) RATIO Glucose (74-106) mg/dL Lactic Acid (0.4-2.0) mmol/L Calcium (8.5-10.1) mg/dL Troponin I (<0.06) ng/mL Urine Color (Yellow) Urine Clarity (Clear) Urine pH (5.0 - 8.0) Ur Specific [place] (1.002-1.030) Urine Protein (Negative) mg/dl Urine Glucose (UA) (Normal) mg/dl Urine Ketones (Negative) mg/dl Urine Occult Blood (Negative) /ul Urine Nitrite (Negative) Urine Bilirubin (Negative) mg/dL Urine Urobilinogen (Normal) mg/dl Ur Leukocyte Esterase (Negative) /ul Urine RBC (0-5) /hpf Urine WBC (0-5) /hpf Ur Squamous Epith Cells (0-5) /hpf Urine Bacteria (None Seen) /hpf Urine Mucus (<or=2+) /hpf Clinical Impression(s) from Imaging Studies Chest X-Ray 10/16/17 09:02 IMPRESSION: Normal x-ray examination of the chest. Electronically Signed: Lisa Aguilar MD at 9:25 EDT Tel , Service support , Assessment/Plan This is a 67 years old male patient brought to the emergency room by squad because of unclear history, reported chest pain, ICD fired and patient complains of vague abdominal pain that has been going on for a few months. #1 lethargy/sleepiness/possible encephalopathy: Unclear etiology. Patient is sleepy during my examination. Patient has been on Percocet for long time for chronic pain syndrome. He denies any focal deficit. He is oriented ?2, disoriented to time. His vital signs are stable, afebrile. His routine blood work was unremarkable, revealed chronic anemia and chronic elevated creatinine, otherwise normal. EKG revealed normal sinus rhythm and right bundle branch block, no acute ischemic changes or cardiac arrhythmias. Troponin is negative. Patient takes hydroxyzine, Reglan, Percocet and Phenergan at home and this is could be the etiology of his encephalopathy. There was a concern that patient may have hypotension but his blood pressure in the ER was 95/65. Plan: Admit to PCU for observation, cardiac monitoring, serial cardiac enzymes, IV fluids, hold narcotics and antihistamines, repeat CBC and BMP tomorrow morning, PT OT evaluation and treatment. #2 reported chest pain/ICD findings: There is a conflicting report about the chest pain. When I asked the patient about chest pain, he said no chest pain whatsoever today. Reportedly, patient had an episode chest pain. EKG revealed no acute ischemic changes. Troponin is negative ?2. Also, patient reports that his ICD fired today. ICD interrogation performed and showed no evidence of cardiac arrhythmias today. At this time, he is in sinus rhythm, heart rate stable, blood pressure stable. Plan: Serial cardiac enzymes, repeat EKG tomorrow morning. #3 ischemic cardiomyopathy/chronic systolic CHF/status post ICD: Clinically stable, euvolemic. No evidence of acute CHF. Continue isosorbide mononitrate, metoprolol and Aldactone, hold Lasix for tonight. #4 type 2 diabetes mellitus: ADA diet, Accu-Cheks, and sometimes scale, continue metformin. #5 hypertension: Blood pressure has been stable based on his ejection fraction 65%. Plan to continue isosorbide mononitrate, metoprolol and Aldactone, hold Lasix. #6 stage III chronic kidney disease: Baseline creatinine is around 1.3-1.7 mg/dL. Admission creatinine is 1.85 and recently in August,, it was 2.15. Seems to be fairly stable, plan to repeat BMP tomorrow morning, gentle IV fluids for hydration to avoid volume overload. #7 chronic pain syndrome: Hold Percocet, Phenergan, hydroxyzine as above. Tylenol as needed for pain. #8 DVT prophylaxis: Subcu heparin. This note was generated with Dragon dictation software. It may contain incorrect words, spelling, and punctuation that were not noted in checking the note before signing. Code Visit OBSV E&M: 15810 Initial observation care L3
--- NOTE | 2017-10-16 12:39 | NURSING ---
admitted to pcu 109, pt very lethargic returns to sleep after each question ask, unsure of month,able to answer other questions before returning to sleep, fall precautions initiated, sr on monitor
[2017-10-16 15:57] LABS: Bedside Glucose 87 mg/dL (70-110)
[2017-10-16] MEDS: Heparin Injection 5,000 UNITS/ML Syringe 5000 UNITS SC (16:43)
[2017-10-16] MEDS: guaiFENesin 600 MG Tablet PO (16:45)
[2017-10-16] MEDS: Naloxone 0.4 MG/ML Syringe IV (17:29)
--- NOTE | 2017-10-16 17:38 | NURSING ---
narcan 0.4iv x1 given as per order awakens briefly
[2017-10-16] MEDS: Albuterol 2.5 MG/3 ML VIAL.NEB. INHALATION (17:42)
[2017-10-16 22:45] LABS: Bedside Glucose 91 mg/dL (70-110)
[2017-10-17] VITALS (11 sets, daily range): BP systolic 107–137; BP diastolic 53–77; PULSE 67–85; RESP 16–20; TEMP 36.6–36.9; O2SAT 95–97
[2017-10-17] MEDS: Acetaminophen 325 MG Tablet 650 MG PO ×2 (02:31→10:52)
[2017-10-17 06:26] LABS: Absolute Lymphocyte Count 1.42 X10^3/ul (0.83-4.51); Absolute Neutrophil Count 2.8 X10^3/uL (2.0-7.7); Basophil# 0.02 X10^3/uL; Basophil% 0.4 % (0-1); Eosinophil# 0.27 X10^3/uL; Eosinophils% 5.4 % (0-5); Hematocrit 37.8 % (40-54); Hemoglobin 12.1 g/dl (13.0-16.5); Lymphocyte # 1.42 X10^3/ul (4.0); Lymphocyte % 28.2 % (19-41); Mean Corpuscular Volume 93.6 fL (80-94); Monocyte# 0.57 X10^3/uL; Monocyte% 11.3 % (0-10); Neutrophil # 2.75 X10^3/uL (2.7-7.7); Neutrophil % 54.7 % (47-70); POSITIVE COUNT NO; POSITIVE DIFFERENTIAL NO; POSITIVE MORPHOLOGY NO; Platelet Count 241 K/mm3 (150-450); RBC Distribution Width CV 14.5 % (11.6-14.6); RBC Distribution Width SD 48.1 fl (35.1-43.9); Red Blood Count 4.04 M/mm3 (4.6-6.2)
[2017-10-17 06:58] LABS: Anion Gap 8 (5-15); BUN 25 mg/dL (7-18); BUN/Creat Ratio 19.1 RATIO (10-20); Calcium,Total 8.2 mg/dL (8.5-10.1); Chloride 105 mmol/L (98-107); Creatinine, Serum 1.31 mg/dL (0.70-1.30); EST Glomerular Filtration Rate 58 mL/min (>60); Est Glom Filt Rate - Afr Amer 70 mL/min (>60); Estimated Creatinine Clearance 53.66 ml/min; Glucose 74 mg/dL (74-106); Potassium 3.8 mmol/L (3.5-5.1); Sodium Level 141 mmol/L (136-145)
[2017-10-17 07:00] LABS: Bedside Glucose 77 mg/dL (70-110)
[2017-10-17] MEDS: Albuterol 2.5 MG/3 ML VIAL.NEB. INHALATION (07:00)
--- NOTE | 2017-10-17 07:48 | EKG12_ITS ---
Test Reason : CP Blood Pressure : / mmHG Vent. Rate : 072 BPM Atrial Rate : 072 BPM P-R Int : 154 ms QRS Dur : 106 ms QT Int : 420 ms P-R-T Axes : 058 026 134 degrees QTc Int : 459 ms Normal sinus rhythm Incomplete left bundle branch block ST & T wave abnormality, consider lateral ischemia Abnormal ECG When compared with ECG of 16-OCT-2017 08:49, MANUAL COMPARISON REQUIRED, DATA IS UNCONFIRMED Confirmed by SHAVONNE LUNDBERG, LISA ([id number]), image editor LANDRY YARBROUGH ([id number]) on 10/22/2017 3:39:14 PM Referred By: SHAVONNE Confirmed By:LISA MARVIN MD
--- NOTE | 2017-10-17 07:59 | CT_ITS ---
STUDY: CT BRAIN WITHOUT CONTRAST REASON FOR EXAM: Male, 67 years old. Confusion, disorientation, lethargy RADIATION DOSAGE (If Supplied By Facility): CTDIvol = ( 44.99 ) mGy, DLP = ( 745.49 ) mGycm TECHNIQUE: Transaxial CT imaging of the brain was performed without administration of intravenous contrast material. Sagittal and coronal images are reformatted. Individualized dose optimization techniques were used for this CT. COMPARISON: 11/08/2016. FINDINGS: Normal soft tissue structures. Normal calvarium. Normal size ventricles and extra-axial spaces for the patient's age. There are areas of decreased attenuation within the white matter tracts of the supratentorial brain, consistent with microvascular disease changes. Area of encephalomalacia posterior left parietal lobe. Normal basal ganglia and thalami. Normal brainstem. Normal cerebellum. There is no intracranial hemorrhage. There are no findings of an acute ischemic infarction. Normal visualized paranasal sinuses. CT/Brain/Head without Contrast IMPRESSION: Chronic involutional changes of the brain. 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 No acute intracranial process. Electronically Signed: Jeremy Villafuerte DO at 9:51 EDT , Service support ,
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
[2017-10-17] MEDS: oxyCODONE 5 MG Tablet PO ×2 (08:56→10:52)
[2017-10-17] MEDS: Furosemide 40 MG/4 ML Vial IV (08:56)
[2017-10-17] MEDS: Tamsulosin HCl 0.4 MG Capsule PO (08:58)
[2017-10-17] MEDS: Fenofibrate 145 MG Tablet PO (09:03)
[2017-10-17] MEDS: Aspirin E.C. 81 MG Tablet PO (09:03)
[2017-10-17] MEDS: Allopurinol 100 MG Tablet PO (09:04)
[2017-10-17] MEDS: Metoprolol(XL)Succ 50 MG Tablet PO (10:49)
[2017-10-17] MEDS: Clopidogrel Bisulfate 75 MG Tablet PO (10:49)
[2017-10-17] MEDS: Pantoprazole Sodium 40 MG Tablet PO (10:49)
[2017-10-17] MEDS: ROSUVASTATIN CALCIUM 40 MG TABLET PO (10:49)
[2017-10-17] MEDS: Isosorbide Mononitrate 30 MG Tablet PO (10:49)
[2017-10-17] MEDS: Spironolactone 25 MG Tablet PO (10:49)
[2017-10-17] MEDS: Furosemide 40 MG Tablet PO (10:49)
[2017-10-17] MEDS: Ipratropium/Albuterol Sulfate 3 ML AMPUL.NEB INHALATION (10:53)
[2017-10-17 11:11] LABS: Bedside Glucose 99 mg/dL (70-110)
--- NOTE | 2017-10-17 14:06 | PCM.DC ---
You will use the following diet at home:: Cardiac Your food should be the consistency of: Regular Discharge Activity: Return to Normal Activity, May not drive while taking narcotic pain medications. Weight Bearing Status: Weight bearing as tolerated Call your doctor if you observe: Fever of 101 or Higher, Shortness of breath, Dizziness, Fainting spells, Chest pain, Increased palpitations (irregular heartbeat), Uncontrolled pain Allergies/Adverse Reactions: Allergies chlorpromazine HCl [From Thorazine] Allergy (Severe, Verified 09/16/17 06:18) Hives PER PATIENT tramadol HCl [From Ultram] Allergy (Severe, Verified 09/16/17 06:18) Hives PER PATIENT codeine Allergy (Intermediate, Verified 09/16/17 06:18) Hives atorvastatin Adverse Reaction (Intermediate, Verified 09/16/17 06:18) Other LEG PAIN/CRAMPS naproxen Adverse Reaction (Verified 09/16/17 06:18) Upset Stomach Medications to take at Discharge Metformin HCl [Glucophage] 250 mg PO BIDCM 11/16/13 Nitroglycerin [Nitrostat] 0.4 mg SUBLINGUAL Q5M PRN 09/17/15 Isosorbide Mononitrate [Imdur] 30 mg PO DAILY 02/18/17 Albuterol Aerosols [Ventolin Aerosols] 2.5 mg INHALATION Q4H PRN PRN 02/23/17 Ondansetron [Zofran Odt] 4 mg PO Q4H PRN PRN #10 tab.rapdis 02/23/17 Allopurinol 100 mg PO DAILY 05/05/17 Oxycodone HCl/Acetaminophen [Percocet 7.5-325 mg Tablet] 1 tab PO Q6H PRN PRN 06/15/17 Clopidogrel Bisulfate [Plavix] 75 mg PO DAILY #30 tab 06/17/17 metoprolol succinate ER 50 mg tablet,extended release 24 hr 50 mg PO DAILY 07/09/[address] 40 mg granules delayed-release for susp in packet 40 mg PO QDAY 07/09/17 albuterol sulfate HFA 90 mcg/actuation aerosol inhaler 2 puff INHALATION Q4H PRN g 07/31/17 aspirin 81 mg tablet,delayed release 81 mg PO QDAY 07/31/17 fenofibrate nanocrystallized 145 mg tablet 145 mg PO DAILY 07/31/17 guaifenesin ER 600 mg tablet, extended release 12 hr 600 mg PO Q12H PRN 07/31/17 metoclopramide 10 mg tablet 10 mg PO QAC PRN tab 07/31/17 nicotine 14 mg/24 hr daily transdermal patch 14 mg TRANSDERMAL Q24H 07/31/17 rosuvastatin 40 mg tablet 40 mg PO DAILY 07/31/17 spironolactone 25 mg tablet 25 mg PO QAM 07/31/17 Furosemide 40 mg PO DAILY 09/03/17 Umeclidinium Brm/Vilanterol Tr [Anoro Ellipta 62.5-25 Mcg INH] 1 inh INHALATION DAILY 09/03/17 Tamsulosin HCl [Flomax] 0.4 mg PO DAILY #30 cap 09/16/17 Primary Care Physician: Juan De La Vega III, MD [Primary Care Provider] - Please follow up with your Primary Care Physician in: 1 week.
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
--- NOTE | 2017-10-17 15:40 | NURSING ---
Reviewed and agreed on all charting with Brett Santillan RN
== END 2017-10-17 15:20 | disposition home or self-care (01) ==
LOC: ED 11:46 → PCU 11:48
PROVIDERS: Admitting Provider Hospitalist; Emergency Provider Emergency Medicine; Family Provider Family Medicine; PCP Family Medicine; Visit Provider Hospitalist
DX: G93.40 Encephalopathy, unspecified (principal); R53.83 Other fatigue; I13.0 Hypertensive heart and chronic kidney disease with heart failure and stage 1 through stage 4 chronic kidney disease, or unspecified chronic kidney disease; E11.22 Type 2 diabetes mellitus with diabetic chronic kidney disease; N18.3 Chronic kidney disease, stage 3 (moderate); I50.22 Chronic systolic (congestive) heart failure; E78.5 Hyperlipidemia, unspecified; I25.10 Atherosclerotic heart disease of native coronary artery without angina pectoris; J44.9 Chronic obstructive pulmonary disease, unspecified; E66.01 Morbid (severe) obesity due to excess calories; Z68.32 Body mass index [BMI] 32.0-32.9, adult; Z71.3 Dietary counseling and surveillance; Z79.899 Other long term (current) drug therapy; Z79.84 Long term (current) use of oral hypoglycemic drugs; Z95.810 Presence of automatic (implantable) cardiac defibrillator; Z79.02 Long term (current) use of antithrombotics/antiplatelets; Z79.82 Long term (current) use of aspirin; Z95.1 Presence of aortocoronary bypass graft; K21.9 Gastro-esophageal reflux disease without esophagitis; F17.200 Nicotine dependence, unspecified, uncomplicated; G89.4 Chronic pain syndrome
CPT/HCPCS: 36415; 70450; 71045; 80048; 81001; 82962; 83605; 84484; 85025; 87633; 93005; 94640; 96361; 96372; 96374; 96375; 97162; 97165; 97530; 99218; 99285; 99406; J7030; A4216; G0378; J1940; J2310

== ENCOUNTER 2017-11-15 04:33 | Inpatient (IN) | payer MEDICARE, MEDICAID, SELFPAY ==
[2017-11-15] VITALS (24 sets, daily range): BP systolic 96–128; BP diastolic 42–104; PULSE 78–103; RESP 15–22; TEMP 36.3–37.1; O2SAT 92–97; BMI 33.0; BMI 32.5
--- NOTE | 2017-11-15 05:25 | EKG12_ITS ---
Test Reason : SOB Blood Pressure : / mmHG Vent. Rate : 080 BPM Atrial Rate : 080 BPM P-R Int : 156 ms QRS Dur : 106 ms QT Int : 434 ms P-R-T Axes : 042 -33 132 degrees QTc Int : 500 ms Normal sinus rhythm Left axis deviation T wave abnormality, consider lateral ischemia Prolonged QT Abnormal ECG Confirmed by SHAVONNE LUNDBERG, LISA ([id number]), field map editor LANDRY YARBROUGH ([id number]) on 11/20/2017 1:13:55 PM Referred By: EDUARDO Confirmed By:LISA MARVIN MD
--- NOTE | 2017-11-15 05:27 | RAD_ITS ---
STUDY: X-RAY CHEST REASON FOR EXAM: Male, 67 years old. Shortness of breath for a few days. TECHNIQUE: Single AP portable view of the chest. 2 images COMPARISON: 10/16/2017. 04/12/2017 FINDINGS: There is a left subclavian approach multilead permanent pacemaker. Stable small calcified nodule right base. There is no demonstrated pleural abnormality. Sternal cerclage wires and vascular clips are present from a prior sternotomy and coronary artery bypass graft procedure (CABG). Normal mediastinum and serjio. Normal visualized pulmonary arteries. Normal visualized aortic arch and descending thoracic aorta. Normal visualized thoracic spine. Normal visualized ribs, clavicles, and shoulders. There is no demonstrated abnormality of the visualized soft tissue structures of the upper abdomen. RAD/Chest 1 View (Portable) IMPRESSION: No acute cardiopulmonary disease. No significant interval change. Electronically Signed: Mónica Castañeda MD at 5:48 EDT , Service support ,
[2017-11-15] MEDS: Ipratropium/Albuterol Sulfate 3 ML AMPUL.NEB INHALATION ×6 (05:33→22:42)
[2017-11-15] MEDS: MethylPREDNISolone 125 MG/2 ML Vial IV (05:49)
[2017-11-15] MEDS: Morphine 4 MG/ML Syringe IV ×2 (06:06→08:03)
[2017-11-15] MEDS: Ondansetron 4 MG/2 ML Vial IV (06:06)
[2017-11-15 06:13] LABS: Absolute Lymphocyte Count 1.29 X10^3/ul (0.83-4.51); Absolute Neutrophil Count 6.1 X10^3/uL (2.0-7.7); Basophil# 0.02 X10^3/uL; Basophil% 0.2 % (0-1); Eosinophil# 0.31 X10^3/uL; Eosinophils% 3.7 % (0-5); Hemoglobin 11.9 g/dl (13.0-16.5); Lymphocyte # 1.29 X10^3/ul (4.0); Lymphocyte % 15.2 % (19-41); Mean Corp Hgb Conc 32.2 g/gl (32-36); Mean Corpuscular Hgb 29.9 pg (27.0-32.0); Mean Platelet Vol. 9.6 fl (6.2-12.0); Monocyte% 9.4 % (0-10); Neutrophil # 6.05 X10^3/uL (2.7-7.7); Neutrophil % 71.4 % (47-70); Platelet Count 252 K/mm3 (150-450); RBC Distribution Width CV 14.8 % (11.6-14.6); RBC Distribution Width SD 48.6 fl (35.1-43.9); Red Blood Count 3.98 M/mm3 (4.6-6.2); White Blood Count 8.5 K/mm3 (4.4-11.0)
[2017-11-15 06:15] LABS: POSITIVE COUNT NO; POSITIVE DIFFERENTIAL NO; POSITIVE MORPHOLOGY NO
[2017-11-15 06:16] LABS: Anion Gap 9 (5-15); BUN 56 mg/dL (7-18); BUN/Creat Ratio 20.4 RATIO (10-20); Calcium,Total 8.2 mg/dL (8.5-10.1); Chloride 102 mmol/L (98-107); Creatinine, Serum 2.75 mg/dL (0.70-1.30); EST Glomerular Filtration Rate 25 mL/min (>60); Est Glom Filt Rate - Afr Amer 30 mL/min (>60); Estimated Creatinine Clearance 25.56 ml/min; Glucose 121 mg/dL (74-106); Potassium 4.2 mmol/L (3.5-5.1); Sodium Level 141 mmol/L (136-145)
--- NOTE | 2017-11-15 06:32 | ED.RN ---
LAB CALLS WITH CRITICAL RESULT, D-DIMER 0.50, DR. RIVERA MADE AWARE.
--- NOTE | 2017-11-15 07:30 | ED.VISSUMM ---
- ER Visit Summary Date of Service: 11/15/17 Chief Complaint: Chest pain shortness of breath. History of Present Illness: The patient is a 67 M history of CAD prior [place] 10 cardiac stents, defibrillator, diabetes, COPD and prior bypass 11 years ago. Patient states that he has had chest with shortness of breath for the last 3 days. Progressively getting worse. It is intermittent. Denies any hemoptysis. Nonproductive cough. Is not on home O2. He denies any prior history of DVT or PE he denies any calf pain or leg swelling. He has had several recent admissions in the last 3 months. Physical Examination: Older male vital signs are stable afebrile. Pulse ox 90% on room air no hypoxia. HEENT exam unremarkable neck nontender lungs clear to auscultation. Heart regular rhythm chest wall nontender abdomen soft nontender nondistended no giving or masses extremities moves all 4. Calves nontender no edema no cords neurologically he is awake alert answering questions following commands. Test Results: Chest x-ray shows chronic changes no acute process read both by myself and the radiologist. Left-sided pacemaker defibrillator. EKG sinus rhythm rate 80 and is unchanged from 1 from 09/2017. CBC shows chronic anemia hemoglobin 11.9. BMP shows a BUN of 56 creatinine 2.75 which is worsening chronic renal insufficiency prior creatinine was 1.3. Troponin normal d-dimer is barely above normal 0.5. We cannot do a CTA on the patient due to his renal function. Emergency Department Course and Treatment: Patient is doing better after IV morphine and Zofran. He requested a NicoDerm patch. I spoke to the hospitalist Dr. Staci grider and she will admit the patient for further evaluation and workup. At this time we are not anticoagulate him any further he is already on Plavix and aspirin. She will decide any further workup for PE or DVT but I think that is less likely. Treatment Plan: Admission Disposition: Admission Impression: Atypical chest pain and shortness of breath History of known prior [place], prior quadruple bypass, cardiac stents ?10, pacemaker defibrillator This note was generated with [employer] dictation software. It may contain incorrect words, spelling, and punctuation that were not noted in review of the chart prior to signing ED Disposition - Plan for ED Patient: Chief Complaint: Shortness of Breath Referrals: Juan De La Vega III, MD [Primary Care Provider] -
--- NOTE | 2017-11-15 07:34 | ED.DCSUM_ITS ---
- ER Visit Summary Date of Service: 11/15/17 Chief Complaint: Chest pain shortness of breath. History of Present Illness: The patient is a 67 M history of CAD prior [place] 10 cardiac stents, defibrillator, diabetes, COPD and prior bypass 11 years ago. Patient states that he has had chest with shortness of breath for the last 3 days. Progressively getting worse. It is intermittent. Denies any hemoptysis. Nonproductive cough. Is not on home O2. He denies any prior history of DVT or PE he denies any calf pain or leg swelling. He has had several recent admissions in the last 3 months. Physical Examination: Older male vital signs are stable afebrile. Pulse ox 90% on room air no hypoxia. HEENT exam unremarkable neck nontender lungs clear to auscultation. Heart regular rhythm chest wall nontender abdomen soft nontender nondistended no giving or masses extremities moves all 4. Calves nontender no edema no cords neurologically he is awake alert answering questions following commands. Test Results: Chest x-ray shows chronic changes no acute process read both by myself and the radiologist. Left-sided pacemaker defibrillator. EKG sinus rhythm rate 80 and is unchanged from 1 from 09/2017. CBC shows chronic anemia hemoglobin 11.9. BMP shows a BUN of 56 creatinine 2.75 which is worsening chronic renal insufficiency prior creatinine was 1.3. Troponin normal d-dimer is barely above normal 0.5. We cannot do a CTA on the patient due to his renal function. Emergency Department Course and Treatment: Patient is doing better after IV morphine and Zofran. He requested a NicoDerm patch. I spoke to the hospitalist Dr. Staci grider and she will admit the patient for further evaluation and workup. At this time we are not anticoagulate him any further he is already on Plavix and aspirin. She will decide any further workup for PE or DVT but I think that is less likely. Treatment Plan: Admission Disposition: Admission Impression: Atypical chest pain and shortness of breath History of known prior [place], prior quadruple bypass, cardiac stents ?10, pacemaker defibrillator This note was generated with [employer] dictation software. It may contain incorrect words, spelling, and punctuation that were not noted in review of the chart prior to signing ED Disposition - Plan for ED Patient: Chief Complaint: Shortness of Breath Referrals: Juan De La Vega III, MD [Primary Care Provider] -
--- NOTE | 2017-11-15 07:59 | HP.PCM_ITS ---
Problem List (1) Musculoskeletal chest pain Status: Acute (2) URI (upper respiratory infection) Status: Acute (3) Acute renal failure superimposed on stage 3 chronic kidney disease Status: Acute (4) Abdominal pain Status: Resolved Qualifiers: Abdominal location: generalized Qualified Code(s): R10.84 - Generalized abdominal pain (5) Acute non-ST segment elevation myocardial infarction Status: Resolved (6) Gout Status: Chronic (7) Hx of hernia repair Status: Inactive (8) Sciatica Status: Chronic (9) Benign essential hypertension Status: Chronic (10) CAD (coronary artery disease) Status: Chronic (11) Chronic back pain Status: Chronic (12) Chronic bronchitis Status: Chronic (13) Chronic renal failure, stage 3 (moderate) Status: Chronic (14) Chronic systolic (congestive) heart failure Status: Chronic (15) Claudication Status: Chronic (16) Colitis Status: Inactive (17) Degenerative cervical disc Status: Chronic (18) Gastroesophageal reflux disease Status: Chronic (19) Hyperlipidemia Status: Chronic (20) Ischemic cardiomyopathy Status: Chronic Comment: 25% ejection fraction in November 2016 (21) Morbid obesity Status: Chronic (22) Nicotine dependence Status: Chronic Qualifiers: Substance use status: in remission (23) Presence of automatic implantable cardioverter-defibrillator Status: Chronic (24) Stented coronary artery Status: Chronic Comment: has had 7 stents as of 06/15/17 (25) Tinea manus Status: Inactive (26) Tubular adenoma of colon Status: Inactive (27) Type 2 diabetes mellitus Status: Chronic (28) V-tach Status: Chronic Comment: has an AICD (29) Sleep-disordered breathing Status: Suspected (30) H/O coronary artery bypass surgery Status: Resolved Comment: HUMPHREY-LAD, SVG-D1, SVG-OM (31) Presence of automatic implantable cardioverter-defibrillator Status: Resolved (32) Previous back surgery Status: Inactive (33) Status post left heart catheterization Status: Inactive History of Present Illness Date of Admission: 11/15/17 Chief Complaint: dry cough, SOB and chest pain with coughing The patient is a 67 year old M with COPD, CAD, hx of CABG, Hx of PTCA/EZ X 10, DM II, HLD, former smoking hx (in remission currently with ongoing Nicoderm requirement), sleep disordered breathing, ischemic CM, chronic back pain with sciatica, VT with AICD placement, PVD with claudication and CRF stage 3 who presented to the ED at [facility] on 11/15/17 c/o SOB with coughing and exertion, CP with coughing, dry cough for 3 days, myalgias, malaise and sore throat. He denied fever and chills. Denied sick contacts. The chest pain is only with coughing. AICD has not recently fired. Has been taking Motrin 2-4 times a day for pain. No recent changes in his prescribed medications. No change in urine output recently. He admits to occasional lightheadedness when first standing up...but this is not new. Vital signs at presentation to the emergency room were temperature 97.8, pulse rate 89, blood pressure 128/104, respiratory rate 19 and he was 92% saturated on room air. White blood cell count was normal at 8.5 with an unremarkable differential. Hemoglobin is 11.9 and the platelet count is 252,000. Electrolytes are within normal limits and the BUN is 56 with a creatinine of 2.75. Creatinine on October 17, 2017 was 1.31. He admitted that he has been taking Motrin 2-4 times a day. Troponin was less than 0.02. Chest x-ray showed no pleural effusions, infiltrates or pulmonary vascular congestion. EKG showed no significant ST or T-wave changes. He was diagnosed with a URI and probable musculoskeletal chest pain and admitted to a monitored bed on PCU. Past Medical History Past Medical History (Chronic Problems): Chronic Problems (Last Reviewed 08/25/17 @ 12:41 by Tara Baxter) Nicotine dependence (Chronic) Chronic bronchitis (Chronic) Sciatica (Chronic) Gout (Chronic) Degenerative cervical disc (Chronic) Claudication (Chronic) Chronic back pain (Chronic) Presence of automatic implantable cardioverter-defibrillator (Chronic) Chronic renal failure, stage 3 (moderate) (Chronic) Chronic systolic (congestive) heart failure (Chronic) Stented coronary artery (Chronic ~12/2016) has had 7 stents as of 06/15/17 Ischemic cardiomyopathy (Chronic) 25% ejection fraction in November 2016 V-tach (Chronic) has an AICD Benign essential hypertension (Chronic) Gastroesophageal reflux disease (Chronic) Hyperlipidemia (Chronic) Type 2 diabetes mellitus (Chronic) Morbid obesity (Chronic) CAD (coronary artery disease) (Chronic) Allergies chlorpromazine HCl [From Thorazine] Allergy (Severe, Verified 11/15/17 04:34) Hives PER PATIENT tramadol HCl [From Ultram] Allergy (Severe, Verified 11/15/17 04:34) Hives PER PATIENT codeine Allergy (Intermediate, Verified 11/15/17 04:34) Hives atorvastatin Adverse Reaction (Intermediate, Verified 11/15/17 04:34) Other LEG PAIN/CRAMPS naproxen Adverse Reaction (Verified 11/15/17 04:34) Upset Stomach Home Medications: Ambulatory Orders Medication Instructions Recorded Nitroglycerin [Nitrostat] 0.4 mg SUBLINGUAL Q5M PRN 09/17/15 Isosorbide Mononitrate [Imdur] 30 mg PO DAILY 02/18/17 Albuterol Aerosols [Ventolin 2.5 mg INHALATION Q4H PRN PRN 02/23/17 Aerosols] Ondansetron [Zofran Odt] 4 mg PO Q4H PRN PRN #10 tab.rapdis 02/23/17 Allopurinol 300 mg PO DAILY 05/05/17 Oxycodone HCl/Acetaminophen 1 tab PO Q6H PRN PRN 06/15/17 [Percocet 7.5-325 mg Tablet] Clopidogrel Bisulfate [Plavix] 75 mg PO DAILY #30 tab 06/17/17 metoprolol succinate ER 50 mg 100 mg PO DAILY 07/09/17 tablet,extended release 24 hr albuterol sulfate HFA 90 2 puff INHALATION Q4H PRN g 07/31/17 mcg/actuation aerosol inhaler fenofibrate nanocrystallized 145 145 mg PO DAILY 07/31/17 mg tablet nicotine 14 mg/24 hr daily 21 mg TRANSDERMAL Q24H 07/31/17 transdermal patch rosuvastatin 40 mg tablet 40 mg PO DAILY 07/31/17 spironolactone 25 mg tablet 25 mg PO QAM 07/31/17 Furosemide 40 mg PO DAILY 09/03/17 Umeclidinium Brm/Vilanterol Tr 1 inh INHALATION DAILY 09/03/17 [Anoro Ellipta 62.5-25 Mcg INH] Tamsulosin HCl [Flomax] 0.4 mg PO DAILY #30 cap 09/16/17 Aspirin 325 mg PO DAILY@0800 11/15/17 Pantoprazole Sodium [Protonix] 40 mg PO DAILY 11/15/17 Surgical History: coronary bypass surgery, - - defibrillater, 2 back surgery, hernia surgery. has had PTCA with 7 stents Psychiatric History: No pertinent psych hx Lives: Alone Smoking Status: Former smoker - using a nicotine patch Tobacco Use: Non-smoker Alcohol: Occasional Drugs: None - *Family History Paternal History Items: Cancer, Heart Disease Maternal History Items: Cancer Review of Systems Constitutional: Reports: Malaise. Denies: Anorexia, Chills, Fever Eyes: Denies: Blurred vision, Redness HEENT: Reports: Sore Throat. Denies: Difficulty Hearing, Difficulty Swallowing , Ear Pain, Nasal bleeding Cardiovascular: Reports: Chest Pain - only with coughing, Light Headedness - occasional when first standing up. Denies: Orthopnea, Palpitations, Paroxysmal Noc. Dyspnea, Syncope Respiratory: Reports: Cough, Shortness of Breath, Shortness of breath upon exertion, Wheezing. Denies: Sputum production Gastrointestinal: Denies: Abdominal Pain, Diarrhea, Nausea, Vomiting Genitourinary: Denies: Dysuria Musculoskeletal: Reports: Muscle pain Skin: Denies: Jaundice, Rash, Wounds Neurological: Denies: Numbness, Tingling, Focal weakness Psychiatric: Denies: Homicidal Ideations, Suicidal Ideations Endocrine: Denies: Change in Body Habitus Hematologic/ Lymphatic: Denies: Hx of blood clot VTE Information - Inpt Only VTE Present on Admission: No VTE Mechan Device Prophylaxis: SCD's VTE Pharm Prophylaxis ordered?: Yes Patient Problems: Active and Suspected Problems (Last Reviewed 08/25/17 @ 12:41 by Tara Baxter) Musculoskeletal chest pain (Acute) URI (upper respiratory infection) (Acute) Acute renal failure superimposed on stage 3 chronic kidney disease (Acute) - Physical Exam General: Alert, Oriented x3, Cooperative, Well developed, Well nourished, - - He was getting an aerosol when I initially entered the room and when he coughs he grabs his chest. HEENT: Atraumatic, PERRLA, EOMI, Normocephalic Oral: Moist Mucosa, No Gingival or Mucosal Lesions/ Ulcerations Neck: Supple, No Nodes, No Nuchal Rigidity, Trachea Midline Lungs: No rhonchi, No rales, Diminished, Wheezes - occasional Cardiovascular: Regular rate, Regular Rhythm, Normal S1, Normal S2, No murmurs, No rub noted, No Gallop, - - heart sounds are distant Abdomen: Bowel Sounds Present, Soft, Non Tender, Non-Distended, Obese, - - he has a ventral hernia.....reduces easily Extremities: No cyanosis, No edema, Diminished Peripheral Pulses, - - both feet are warm to touch Skin: No rashes, No breakdown, - - superficial varicosities of the LE's Musculoskeletal: No Muscle Wasting, Arthritic Changes, - - no red, swollen or tender joints Neurological: Cranial nerves II-XII grossly intact, Neuro grossly intact Psych/Mental Status: Normal Affect, Appropriate Vital Signs Temp Pulse Resp BP Pulse Ox 97.8 F 86 15 114/77 93 11/15/17 04:34 11/15/17 07:45 11/15/17 07:45 11/15/17 07:45 11/15/17 07:45 Oxygen Flow Rate (L/min) 4 Oxygen Delivery Method Nasal Cannula Weight: 217 lb 2.485 oz Body Mass Index (BMI) 33.0 Laboratory Tests Past 24 Hrs 11/15/17 11/15/17 11/15/17 05:45 05:45 05:45 WBC 8.5 RBC 3.98 L Hgb 11.9 L Hct 37.0 L MCV 93.0 MCH 29.9 MCHC 32.2 RDW 14.8 H RDW Differential 48.6 H Plt Count 252 MPV 9.6 Immature Gran % (Auto) 0.100 Neut % (Auto) 71.4 H Lymph % (Auto) 15.2 L Lea % (Auto) 9.4 Eos % (Auto) 3.7 Baso % (Auto) 0.2 Absolute Neuts (auto) 6.1 Absolute Lymphs (auto) 1.29 Total Counted Not Reportable D-Dimer Quant (PE/DVT) 0.50 H Sodium 141 Potassium 4.2 Chloride 102 Carbon Dioxide 30.0 Anion Gap 9 BUN 56 H Creatinine 2.75 H Estim Creat Clear Calc 25.56 Est GFR (MDRD) Af Amer 30 L Est GFR (MDRD) Non-Af 25 L BUN/Creatinine Ratio 20.4 H Glucose 121 H Calcium 8.2 L Troponin I < 0.02 Assessment/Plan Active and Suspected Problems (Last Reviewed 08/25/17 @ 12:41 by Tara Baxter) Musculoskeletal chest pain (Acute) URI (upper respiratory infection) (Acute) Acute renal failure superimposed on stage 3 chronic kidney disease (Acute) Impressions 1. URI, likely viral, with exacerbation COPD 2. acute exacerbation COPD - mild 3. musculoskeletal chest pain 4. CAD with hx of CABG and PTCA X 10 with stents 5. severe ischemic CM 6. DM II 7. probable PVD - has claudication 8. former smoker 9. HLD 10. HTN 11. BPH 12. sleep disordered breathing Sputum for GM stain C&S Influenza swab Respiratory panel Legionella and Streptococcal antigens in the urine Around the clock aerosol treatments and Q 2H ALbuterol aerosols for wheezing/SOB Prednisone 40 mg p.o. daily Mucinex Incentive spirometry PEP therapy DVT prophylaxis Ambulatory pulse ox prior to DC Serial cardiac enzymes Liver panel, magnesium, phosphorus, lipid panel now If troponin turns + will consult Dr. Lay Code Visit Inpatient E&M: 78629 Init Hosp L2
[2017-11-15 09:12] LABS: AST(SGOT) 50 U/L (15-37); Alanine Aminotransfer ALT/SGPT 39 U/L (16-61); Albumin, Serum 3.8 g/dL (3.2-5.0); Alkaline Phosphatase 53 U/L (45-117); Bilirubin, Direct 0.08 mg/dL (0.00-0.30); Cholesterol 188 mg/dL (200); Globulin 3.2 g/dL (2.2-4.2); High Density Lipoprotein 15 mg/dL; Magnesium 2.6 mg/dL (1.6-2.6); Triglycerides 420 mg/dL
[2017-11-15 09:13] LABS: Hemoglobin A1c 6.5 % (4.2-6.3)
[2017-11-15] MEDS: oxyCODONE 5 MG Tablet PO ×4 (09:32→23:44)
[2017-11-15] MEDS: ROSUVASTATIN CALCIUM 40 MG TABLET PO (10:21)
[2017-11-15] MEDS: Clopidogrel Bisulfate 75 MG Tablet PO (10:21)
[2017-11-15] MEDS: Tamsulosin HCl 0.4 MG Capsule PO (10:21)
[2017-11-15] MEDS: Spironolactone 25 MG Tablet PO (10:21)
[2017-11-15] MEDS: Pantoprazole Sodium 40 MG Tablet PO (10:21)
[2017-11-15] MEDS: Metoprolol(XL)Succ 50 MG Tablet PO (10:21)
[2017-11-15] MEDS: Aspirin E.C. 81 MG Tablet PO (10:21)
[2017-11-15] MEDS: Furosemide 40 MG Tablet PO (10:21)
[2017-11-15] MEDS: Allopurinol 100 MG Tablet PO (10:21)
[2017-11-15 10:31] LABS: Bedside Glucose 158 mg/dL (70-110)
[2017-11-15 12:01] LABS: Bedside Glucose 221 mg/dL (70-110)
[2017-11-15] MEDS: Nitroglycerin Oint 1 INCH PACKET TRANSDERM. (12:09)
[2017-11-15] MEDS: Heparin Injection 5,000 UNITS/ML Syringe 5000 UNITS SC ×2 (13:29→21:30)
[2017-11-15 16:36] LABS: Bedside Glucose 218 mg/dL (70-110)
[2017-11-15] MEDS: guaiFENesin 600 MG Tablet PO (19:35)
[2017-11-15 22:30] LABS: Bedside Glucose 151 mg/dL (70-110)
[2017-11-16] VITALS (18 sets, daily range): BP systolic 110–128; BP diastolic 50–72; PULSE 70–89; RESP 16–22; TEMP 36.2–36.9; O2SAT 93–97
[2017-11-16] MEDS: Ipratropium/Albuterol Sulfate 3 ML AMPUL.NEB INHALATION ×6 (03:07→22:41)
[2017-11-16] MEDS: oxyCODONE 5 MG Tablet PO ×5 (03:50→21:20)
[2017-11-16] MEDS: Albuterol 2.5 MG/3 ML VIAL.NEB. INHALATION ×2 (04:52→13:17)
[2017-11-16] MEDS: Heparin Injection 5,000 UNITS/ML Syringe 5000 UNITS SC ×3 (05:33→21:21)
--- NOTE | 2017-11-16 05:55 | EKG12_ITS ---
Test Reason : AM EKG Blood Pressure : / mmHG Vent. Rate : 073 BPM Atrial Rate : 073 BPM P-R Int : 164 ms QRS Dur : 120 ms QT Int : 446 ms P-R-T Axes : 058 -06 145 degrees QTc Int : 491 ms Normal sinus rhythm Incomplete left bundle branch block T wave abnormality, consider lateral ischemia Abnormal ECG Confirmed by BERYL LUNDBERG, MICHELLE ([id number]), editorial project manager LANDRY YARBROUGH ([id number]) on 11/19/2017 1:43:24 PM Referred By: PAZ Confirmed By:MICHELLE CORDOBA MD
[2017-11-16 06:02] LABS: Hematocrit 35.8 % (40-54); Hemoglobin 11.5 g/dl (13.0-16.5); Mean Corp Hgb Conc 32.1 g/gl (32-36); Mean Corpuscular Hgb 29.9 pg (27.0-32.0); Mean Corpuscular Volume 93.2 fL (80-94); Mean Platelet Vol. 9.9 fl (6.2-12.0); Platelet Count 259 K/mm3 (150-450); RBC Distribution Width CV 14.8 % (11.6-14.6); RBC Distribution Width SD 48.5 fl (35.1-43.9); Red Blood Count 3.84 M/mm3 (4.6-6.2); White Blood Count 6.5 K/mm3 (4.4-11.0)
[2017-11-16 06:05] LABS: Anion Gap 8 (5-15); BUN 40 mg/dL (7-18); BUN/Creat Ratio 23.3 RATIO (10-20); Calcium,Total 8.4 mg/dL (8.5-10.1); Chloride 102 mmol/L (98-107); Creatinine, Serum 1.72 mg/dL (0.70-1.30); EST Glomerular Filtration Rate 42 mL/min (>60); Est Glom Filt Rate - Afr Amer 51 mL/min (>60); Estimated Creatinine Clearance 40.87 ml/min; Glucose 120 mg/dL (74-106); Magnesium 2.6 mg/dL (1.6-2.6); Phosphorus 3.3 mg/dL (2.5-4.9); Potassium 4.3 mmol/L (3.5-5.1); Sodium Level 138 mmol/L (136-145)
[2017-11-16 06:20] LABS: Scan Indicated on CBC? Y/N NO
[2017-11-16 06:50] LABS: Bedside Glucose 128 mg/dL (70-110)
[2017-11-16] MEDS: Aspirin E.C. 81 MG Tablet PO (07:58)
[2017-11-16] MEDS: predniSONE 20 MG Tablet 40 MG PO (08:01)
--- NOTE | 2017-11-16 10:16 | VDLE_ITS ---
Reason For Study: LEG PAIN RIGHT LEFT GSV is normal. GSV is normal. CFV is compressible, spontaneous, phasic, CFV is compressible, spontaneous, phasic, competent and demonstrates normal competent, and demonstrates normal augmentation. augmentation. FV is compressible, spontaneous, phasic, FV is compressible, spontaneous, phasic, competent and demonstrates normal competent and demonstrates normal augmentation. augmentation. POP V is compressible, spontaneous, phasic, POP V is compressible, spontaneous, phasic, competent and demonstrates normal competent and demonstrates normal augmentation. augmentation. T/P Trunk is compressible. T/P Trunk is compressible. PTV is compressible. PTV is compressible. RT PerV is compressible. LT PerV is compressible. Procedure Exam performed in department. A preliminary report was called and/or faxed to [facility]. Interpretation Summary No evidence for acute deep venous thrombosis bilateral lower extremities with patent and compressible bilateral great saphenous veins. Ordering Physician: Miguel Barbosa Referring Physician: LISA De La Vega M.D. Performed By: Bozena Mauro RVT
[2017-11-16] MEDS: Spironolactone 25 MG Tablet PO (10:30)
[2017-11-16] MEDS: Furosemide 40 MG Tablet PO (10:30)
[2017-11-16] MEDS: Tamsulosin HCl 0.4 MG Capsule PO (10:30)
[2017-11-16] MEDS: Isosorbide Mononitrate 30 MG Tablet PO (10:30)
[2017-11-16] MEDS: ROSUVASTATIN CALCIUM 40 MG TABLET PO (10:30)
[2017-11-16] MEDS: Metoprolol(XL)Succ 50 MG Tablet PO (10:31)
[2017-11-16] MEDS: Pantoprazole Sodium 40 MG Tablet PO (10:31)
[2017-11-16] MEDS: Allopurinol 100 MG Tablet PO (10:31)
[2017-11-16] MEDS: Clopidogrel Bisulfate 75 MG Tablet PO (10:31)
--- NOTE | 2017-11-16 11:16 | PCM.PN.HOSP ---
Patient Problems: Active and Suspected Problems (Last Reviewed 08/25/17 @ 12:41 by Tara Baxter) Musculoskeletal chest pain (Acute) URI (upper respiratory infection) (Acute) Acute renal failure superimposed on stage 3 chronic kidney disease (Acute) Subjective: Patient is a 67-year-old gentleman with multiple comorbidities who presented with progressive shortness of breath associated with a dry cough imaging studies obtained on admission did not demonstrate any infiltrates and assessment of suspected infectious bronchitis made admitted to regular nursing floor where patient has since been managed 11/16/2017: Patient seen complains of excruciating pain in both coughs more on the right than the left; venous duplex ordered for subsequent evaluation Objective: GENERAL; cooperative HEENT: Clear conjunctiva, NECK; supple, normal thyroid, CHEST: Diminished to auscultation bilaterally, HEART: Regular S1 S2, ABDOMEN: soft, normoactive bowel sounds, RECTAL: deferred EXTREMITIES: No edema, no clubbing, no cyanosis. 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, no lateralizing signs SKIN: No rash Vitals/I&O's: Vital Signs Temp Pulse Resp BP Pulse Ox 98.0 F 89 20 H 110/69 93 11/16/17 07:56 11/16/17 11:02 11/16/17 10:47 11/16/17 07:56 11/16/17 07:56 Oxygen Flow Rate (L/min) 2 Oxygen Delivery Method Room Air Weight: 97.1 kg Body Mass Index (BMI) 32.5 Intake and Output for Last 24 Hours 11/14/17 11/15/17 11/16/17 23:59 23:59 23:59 Intake Total 1160 / 1160 220 / 220 Output Total 520 / 520 Balance 1160 / 1160 -300 / -300 Microbiology Past 72 Hours 11/15/17 Unknown Sputum, Expectorated/Coughed Gram Stain - Preliminary 11/15/17 14:45 Urine, Clean Catch Legionella Antigen - Final 11/15/17 14:45 Urine, Clean Catch Streptococcus pneumoniae Antigen (M - Final 11/15/17 08:45 Mucosa - Nasopharyngeal Respiratory Panel (PCR) - Final Laboratory Results 11/15/17 11:55: POC Glucose 221 H 11/15/17 13:25: Troponin I < 0.02 11/15/17 16:28: POC Glucose 218 H 11/15/17 19:35: Troponin I < 0.02 11/15/17 21:28: POC Glucose 151 H 11/16/17 05:10: WBC 6.5, RBC 3.84 L, Hgb 11.5 L, Hct 35.8 L, MCV 93.2, MCH 29.9, MCHC 32.1, RDW 14.8 H, RDW Differential 48.5 H, Plt Count 259, MPV 9.9 11/16/17 05:10: Sodium 138, Potassium 4.3, Chloride 102, Carbon Dioxide 28.0, Anion Gap 8, BUN 40 H, Creatinine 1.72 H, Estim Creat Clear Calc 40.87, Est GFR (MDRD) Af Amer 51 L, Est GFR (MDRD) Non-Af 42 L, BUN/Creatinine Ratio 23.3 H, Glucose 120 H, Calcium 8.4 L, Phosphorus 3.3, Magnesium 2.6 11/16/17 05:10: D-Dimer Quant (PE/DVT) Pending 11/16/17 06:44: POC Glucose 128 H Current Medications Albuterol Sulfate (Ventolin Aerosols) 2.5 mg INHALATION Q2H PRN PRN Reason: WHEEZING Last Admin: 11/16/17 04:52 Dose: 2.5 mg Albuterol/Ipratropium (Duoneb) 3 ml INHALATION Q4H.RT [facility] Last Admin: 11/16/17 10:49 Dose: 3 ml Allopurinol (Zyloprim) 100 mg PO DAILY [facility] Last Admin: 11/16/17 10:31 Dose: 100 mg [facility] ([facility]) [facility] Last Admin: 11/16/17 07:58 Dose: 81 mg Clopidogrel Bisulfate (Plavix) 75 mg PO DAILY [facility] Last Admin: 11/16/17 10:31 Dose: 75 mg Dextrose (D50w Syringe) 0 gm IV X1 PRN; Protocol PRN Reason: Hypoglycemia Furosemide (Lasix) 40 mg PO DAILY [facility] Last Admin: 11/16/17 10:30 Dose: 40 mg Glucagon () 1 mg IM .X1 PRN PRN Reason: Hypoglycemia Guaifenesin (Mucinex) 600 mg PO Q12H PRN PRN Reason: COUGH Last Admin: 11/15/17 19:35 Dose: 600 mg Heparin Sodium (Porcine) () 5,000 units SC Q8 [facility] Last Admin: 11/16/17 05:33 Dose: 5,000 units Hydrocodone Bit/Homatropine Methylb (Hycodan Syrup) 10 ml PO Q6H PRN PRN PRN Reason: dry cough Last Admin: 11/15/17 18:25 Dose: 10 ml Insulin Aspart (Novolog Flexpen (Bkc)) 0 units SC ACHS CAROLYN PRN Reason: Protocol Last Admin: 11/16/17 07:42 Dose: Not Given Isosorbide Mononitrate (Imdur) 30 mg PO DAILY [facility] Last Admin: 11/16/17 10:30 Dose: 30 mg Magnesium Hydroxide (Milk Of Magnesia) 30 ml PO DAILY PRN PRN Reason: Constipation Metoprolol Succinate (Toprol Xl (Beta Sina)) 50 mg PO DAILY [facility] Last Admin: 11/16/17 10:31 Dose: 50 mg Nicotine (Nicoderm Cq (Pbkc)) 14 mg TRANSDERM. Q24 [facility] Last Admin: 11/16/17 10:31 Dose: 14 mg Nitroglycerin (Nitrostat) 0.4 mg SUBLINGUAL Q5M PRN PRN Reason: Chest Pain Ondansetron HCl (Zofran Odt) 4 mg PO Q4H PRN PRN PRN Reason: NAUSEA Oxycodone HCl (Oxyir) 5 - 10 mg PO Q4H PRN PRN PRN Reason: SEVERE PAIN (6-10/10) Last Admin: 11/16/17 07:58 Dose: 10 mg Pantoprazole Sodium (Protonix) 40 mg PO DAILY [facility] Last Admin: 11/16/17 10:31 Dose: 40 mg Prednisone () 40 mg PO DAILY@0800 [facility] Last Admin: 11/16/17 08:01 Dose: 40 mg Rosuvastatin Calcium (Crestor) 40 mg PO DAILY [facility] Last Admin: 11/16/17 10:30 Dose: 40 mg Sodium Chloride () 5 - 30 ml IV UD PRN PRN Reason: SALINE FLUSH Spironolactone (Aldactone) 25 mg PO QAM [facility] Last Admin: 11/16/17 10:30 Dose: 25 mg Tamsulosin HCl (Flomax) 0.4 mg PO DAILY [facility] Last Admin: 11/16/17 10:30 Dose: 0.4 mg Medical Necessity - Tobacco Use Smoking Status: Former smoker Tobacco Use: Non-smoker Assessment/Plan Active and Suspected Problems (Last Reviewed 08/25/17 @ 12:41 by Tara Baxter) Musculoskeletal chest pain (Acute) URI (upper respiratory infection) (Acute) Acute renal failure superimposed on stage 3 chronic kidney disease (Acute) Patient is a 67-year-old gentleman with multiple comorbidities who presented with progressive shortness of breath associated with a dry cough imaging studies obtained on admission did not demonstrate any infiltrates and assessment of suspected infectious bronchitis made admitted to regular nursing floor where patient has since been managed 1. Acute infectious bronchitis: Patient admitted to a monitored bed check history obtained on admission did not demonstrate any infiltrate managed symptomatically with Mucinex as well as aerosol treatment 2. CAD with previous CABG and subsequent stentS placement. Optimal medical therapy 3. History of VT status post AICD placement 4. Chronic kidney disease stage III secondary to diabetic nephropathy 5. Hypertension blood pressure stable did continue with home meds 6. COPD mild exacerbation management as discussed above 7. Diabetes mellitus type II patient is on metformin but continue also placed on oxygen position at bedtime, sliding scale insulin 8. Obesity with BMI of 32.5 weight reduction counseled 9. Dyslipidemia patient is on statin therapy at home 10. GERD patient is on PPI 11. Suspected sleep apnea 12. Chronic back pain with sciatica 13. Gout On allopurinol 14. DVT prophylaxis SC Heparin Code Visit Inpatient E&M: [id number] [facility] Hosp L3
[2017-11-16 11:21] LABS: D-Dimer Quantitative (DVT/PE) 0.96 FEU/ug/m (0.27-0.49)
[2017-11-16 11:31] LABS: Bedside Glucose 155 mg/dL (70-110)
--- NOTE | 2017-11-16 11:43 | NM_ITS ---
CLINICAL: Male, 67 years old. Infectious bronchitis. NUCLEAR VENTILATION/PERFUSION - LUNG TECHNIQUE: The patient was administered 5.7 mCi of Tc MAA followed by a perfusion lung scan. The patient was administered 50 mCi of Tc DTPA aerosol followed by a ventilation lung scan. Comparison made to prior chest radiograph dated November 15, 2017. COMPARISON STUDIES : NM - None. CR - Not available for review at this time. CT - Not available for review at this time. MR - Not available for review at this time. FINDINGS: The pulmonary perfusion study demonstrates uniform perfusion throughout both lung bui. There are no demonstrated segmental or subsegmental perfusion defects The ventilation study demonstrates uniform ventilation throughout both lung bui. There are no segmental or subsegmental ventilation abnormalities. There is central clumping of aerosol. NM/Lung Scan Vent/Perf IMPRESSION: Normal 99m Tc MAA pulmonary perfusion Tc DTPA aerosol ventilation imaging survey, according to revised PIOPED interpretive criteria. Electronically Signed: Willie Moreno MD at 13:23 EDT , Service support ,
--- NOTE | 2017-11-16 12:49 | CASEMGMT ---
Face to Face with patient for initial transition planning/care coordination assessment. RN ESTIVEN introduced self and role at [facility], pt voices understanding and consents to assessment at this time. Pt is lying in bed in no distress at this time. Pt is A/Ox4 at this time and answers all questions appropriately at this time. Care providers, pharmacy, and demographics verified. See attached link. Pt voices no further concerns/needs at this time. Advised pt to ask for CM if any further questions/concerns/needs arise, voices understanding. CM to follow for any further discharge planning/needs. [place] [facility]
[2017-11-16 16:16] LABS: Bedside Glucose 223 mg/dL (70-110)
[2017-11-16 18:40] LABS: CPK Total, Creatine Kinase 652 U/L (39-308)
[2017-11-16 21:21] LABS: Bedside Glucose 174 mg/dL (70-110)
[2017-11-17] VITALS (12 sets, daily range): BP systolic 112–125; BP diastolic 48–74; PULSE 74–85; RESP 16–20; TEMP 36.4–36.6; O2SAT 93–97
[2017-11-17] MEDS: oxyCODONE 5 MG Tablet PO ×3 (01:27→10:52)
[2017-11-17] MEDS: Ipratropium/Albuterol Sulfate 3 ML AMPUL.NEB INHALATION ×3 (02:33→11:08)
[2017-11-17] MEDS: Heparin Injection 5,000 UNITS/ML Syringe 5000 UNITS SC (05:58)
[2017-11-17 06:46] LABS: Bedside Glucose 105 mg/dL (70-110)
[2017-11-17] MEDS: Aspirin E.C. 81 MG Tablet PO (08:04)
[2017-11-17] MEDS: predniSONE 20 MG Tablet 40 MG PO (08:04)
[2017-11-17] MEDS: Tamsulosin HCl 0.4 MG Capsule PO (09:35)
[2017-11-17] MEDS: Pantoprazole Sodium 40 MG Tablet PO (09:35)
[2017-11-17] MEDS: Metoprolol(XL)Succ 50 MG Tablet PO (09:35)
[2017-11-17] MEDS: Isosorbide Mononitrate 30 MG Tablet PO (09:35)
[2017-11-17] MEDS: Clopidogrel Bisulfate 75 MG Tablet PO (09:35)
[2017-11-17] MEDS: Furosemide 40 MG Tablet PO (09:35)
[2017-11-17] MEDS: Allopurinol 100 MG Tablet PO (09:35)
[2017-11-17] MEDS: ROSUVASTATIN CALCIUM 40 MG TABLET PO (09:36)
[2017-11-17] MEDS: Spironolactone 25 MG Tablet PO (09:36)
--- NOTE | 2017-11-17 10:22 | PCM.DC ---
- Discharge Diagnoses Current Active Problems: Current Active and Chronic Problems (Last Reviewed 08/25/17 @ 12:41 by Tara Baxter) Musculoskeletal chest pain (Acute) URI (upper respiratory infection) (Acute) Acute renal failure superimposed on stage 3 chronic kidney disease (Acute) Allergies/Adverse Reactions: Allergies chlorpromazine HCl [From Thorazine] Allergy (Severe, Verified 11/15/17 04:34) Hives PER PATIENT tramadol HCl [From Ultram] Allergy (Severe, Verified 11/15/17 04:34) Hives PER PATIENT codeine Allergy (Intermediate, Verified 11/15/17 04:34) Hives atorvastatin Adverse Reaction (Intermediate, Verified 11/15/17 04:34) Other LEG PAIN/CRAMPS naproxen Adverse Reaction (Verified 11/15/17 04:34) Upset Stomach Medications to take at Discharge Nitroglycerin [Nitrostat] 0.4 mg SUBLINGUAL Q5M PRN 09/17/15 Isosorbide Mononitrate [Imdur] 30 mg PO DAILY 02/18/17 Albuterol Aerosols [Ventolin Aerosols] 2.5 mg INHALATION Q4H PRN PRN 02/23/17 Ondansetron [Zofran Odt] 4 mg PO Q4H PRN PRN #10 tab.rapdis 02/23/17 Allopurinol 300 mg PO DAILY 05/05/17 Oxycodone HCl/Acetaminophen [Percocet 7.5-325 mg Tablet] 1 tab PO Q6H PRN PRN 06/15/17 Clopidogrel Bisulfate [Plavix] 75 mg PO DAILY #30 tab 06/17/17 metoprolol succinate ER 50 mg tablet,extended release 24 hr 100 mg PO DAILY 07/09/17 albuterol sulfate HFA 90 mcg/actuation aerosol inhaler 2 puff INHALATION Q4H PRN g 07/31/17 fenofibrate nanocrystallized 145 mg tablet 145 mg PO DAILY 07/31/17 nicotine 14 mg/24 hr daily transdermal patch 21 mg TRANSDERMAL Q24H 07/31/17 rosuvastatin 40 mg tablet 40 mg PO DAILY 07/31/17 spironolactone 25 mg tablet 25 mg PO QAM 07/31/17 Furosemide 40 mg PO DAILY 09/03/17 Umeclidinium Brm/Vilanterol Tr [Anoro Ellipta 62.5-25 Mcg INH] 1 inh INHALATION DAILY 09/03/17 Tamsulosin HCl [Flomax] 0.4 mg PO DAILY #30 cap 09/16/17 Aspirin 325 mg PO DAILY@0800 11/15/17 Pantoprazole Sodium [Protonix] 40 mg PO DAILY 11/15/17 Doxycycline 100 mg PO BID #14 cap 11/17/17 Guaifenesin [Mucinex] 1,200 mg PO BID #14 tab 11/17/17 Prednisone 20 mg PO BID #10 tab 11/17/17 The following prescriptions were given: Doxycycline 100 mg PO BID #14 cap Guaifenesin [Mucinex] 1,200 mg PO BID #14 tab Prednisone 20 mg PO BID #10 tab Primary Care Physician: Juan De La Vega III, MD [Primary Care Provider] - Proposed Discharge Date: 11/17/17
[2017-11-17 10:27] LABS: Anion Gap 6 (5-15); BUN 34 mg/dL (7-18); BUN/Creat Ratio 21.4 RATIO (10-20); Calcium,Total 8.4 mg/dL (8.5-10.1); Chloride 103 mmol/L (98-107); Creatinine, Serum 1.59 mg/dL (0.70-1.30); EST Glomerular Filtration Rate 46 mL/min (>60); Est Glom Filt Rate - Afr Amer 56 mL/min (>60); Estimated Creatinine Clearance 44.21 ml/min; Glucose 209 mg/dL (74-106); Potassium 3.8 mmol/L (3.5-5.1); Sodium Level 137 mmol/L (136-145)
--- NOTE | 2017-11-17 10:29 | DCINST_ITS ---
- Discharge Diagnoses Current Active Problems: Current Active and Chronic Problems (Last Reviewed 08/25/17 @ 12:41 by Tara Baxter) Musculoskeletal chest pain (Acute) URI (upper respiratory infection) (Acute) Acute renal failure superimposed on stage 3 chronic kidney disease (Acute) Allergies/Adverse Reactions: Allergies chlorpromazine HCl [From Thorazine] Allergy (Severe, Verified 11/15/17 04:34) Hives PER PATIENT tramadol HCl [From Ultram] Allergy (Severe, Verified 11/15/17 04:34) Hives PER PATIENT codeine Allergy (Intermediate, Verified 11/15/17 04:34) Hives atorvastatin Adverse Reaction (Intermediate, Verified 11/15/17 04:34) Other LEG PAIN/CRAMPS naproxen Adverse Reaction (Verified 11/15/17 04:34) Upset Stomach Medications to take at Discharge Nitroglycerin [Nitrostat] 0.4 mg SUBLINGUAL Q5M PRN 09/17/15 Isosorbide Mononitrate [Imdur] 30 mg PO DAILY 02/18/17 Albuterol Aerosols [Ventolin Aerosols] 2.5 mg INHALATION Q4H PRN PRN 02/23/17 Ondansetron [Zofran Odt] 4 mg PO Q4H PRN PRN #10 tab.rapdis 02/23/17 Allopurinol 300 mg PO DAILY 05/05/17 Oxycodone HCl/Acetaminophen [Percocet 7.5-325 mg Tablet] 1 tab PO Q6H PRN PRN Clopidogrel Bisulfate [Plavix] 75 mg PO DAILY #30 tab 06/17/17 metoprolol succinate ER 50 mg tablet,extended release 24 hr 100 mg PO DAILY albuterol sulfate HFA 90 mcg/actuation aerosol inhaler 2 puff INHALATION Q4H PRN g 07/31/17 fenofibrate nanocrystallized 145 mg tablet 145 mg PO DAILY 07/31/17 nicotine 14 mg/24 hr daily transdermal patch 21 mg TRANSDERMAL Q24H 07/31/17 rosuvastatin 40 mg tablet 40 mg PO DAILY 07/31/17 spironolactone 25 mg tablet 25 mg PO QAM 07/31/17 Furosemide 40 mg PO DAILY 09/03/17 Umeclidinium Brm/Vilanterol Tr [Anoro Ellipta 62.5-25 Mcg INH] 1 inh INHALATION DAILY 09/03/17 Tamsulosin HCl [Flomax] 0.4 mg PO DAILY #30 cap 09/16/17 Aspirin 325 mg PO DAILY@0800 11/15/17 Pantoprazole Sodium [Protonix] 40 mg PO DAILY 11/15/17 Doxycycline 100 mg PO BID #14 cap 11/17/17 Guaifenesin [Mucinex] 1,200 mg PO BID #14 tab 11/17/17 Prednisone 20 mg PO BID #10 tab 11/17/17 The following prescriptions were given: Doxycycline 100 mg PO BID #14 cap Guaifenesin [Mucinex] 1,200 mg PO BID #14 tab Prednisone 20 mg PO BID #10 tab Primary Care Physician: Juan De La Vega III, MD [Primary Care Provider] - Proposed Discharge Date: 11/17/17
--- NOTE | 2017-11-17 10:37 | PCM.DC.SUM ---
Discharge Date and Diagnosis - Problem List Patient Problems: Active and Suspected Problems (Last Reviewed 08/25/17 @ 12:41 by Tara Baxter) Musculoskeletal chest pain (Acute) URI (upper respiratory infection) (Acute) Acute renal failure superimposed on stage 3 chronic kidney disease (Acute) Date of Admission: 11/15/17 Date of Discharge: 11/17/17 - Primary Discharge Diagnosis Active and Suspected Problems (Last Reviewed 08/25/17 @ 12:41 by Tara Baxter) Musculoskeletal chest pain (Acute) URI (upper respiratory infection) (Acute) Acute renal failure superimposed on stage 3 chronic kidney disease (Acute) - Secondary Discharge Diagnosis Chronic Problems (Last Reviewed 08/25/17 @ 12:41 by Tara Baxter) Nicotine dependence (Chronic) Chronic bronchitis (Chronic) Sciatica (Chronic) Gout (Chronic) Degenerative cervical disc (Chronic) Claudication (Chronic) Chronic back pain (Chronic) Presence of automatic implantable cardioverter-defibrillator (Chronic) Chronic renal failure, stage 3 (moderate) (Chronic) Chronic systolic (congestive) heart failure (Chronic) Stented coronary artery (Chronic ~12/2016) has had 7 stents as of 06/15/17 Ischemic cardiomyopathy (Chronic) 25% ejection fraction in November 2016 V-tach (Chronic) has an AICD Benign essential hypertension (Chronic) Gastroesophageal reflux disease (Chronic) Hyperlipidemia (Chronic) Type 2 diabetes mellitus (Chronic) Morbid obesity (Chronic) CAD (coronary artery disease) (Chronic) Hospital Course and Treatment Imaging Results: Clinical Impression(s) from Imaging Studies Chest X-Ray 11/15/17 05:27 IMPRESSION: No acute cardiopulmonary disease. No significant interval change. Electronically Signed: Mónica Castañeda MD at 5:48 EDT , Service support , Lung Scan-VQ DE 11/16/17 11:43 IMPRESSION: Normal 99m Tc MAA pulmonary perfusion Tc DTPA aerosol ventilation imaging survey, according to revised PIOPED interpretive criteria. Electronically Signed: Willie Moreno MD at 13:23 EDT , Service support , Operations: None Summary of Care Provided: Patient is a 67-year-old gentleman with multiple comorbidities who presented with progressive shortness of breath associated with a dry cough imaging studies obtained on admission did not demonstrate any infiltrates and assessment of suspected infectious bronchitis made admitted to regular nursing floor where patient has since been managed 1. Acute infectious bronchitis: Patient admitted to a monitored bed chest Xray obtained on admission did not demonstrate any infiltrate managed symptomatically with Mucinex as well as aerosol treatment patient also had venous duplex as well as VQ scan as a result of elevated d-dimer both of which came back unremarkable 2. CAD with previous CABG and subsequent stents placement. Optimal medical therapy 3. History of VT status post AICD placement 4. Chronic kidney disease stage III secondary to diabetic nephropathy 5. Hypertension blood pressure stable did continue with home meds 6. COPD mild exacerbation management as discussed above 7. Diabetes mellitus type II patient is on metformin but continue also placed on oxygen position at bedtime, sliding scale insulin 8. Obesity with BMI of 32.5 weight reduction counseled 9. Dyslipidemia patient is on statin therapy at home 10. GERD patient is on PPI 11. Suspected sleep apnea 12. Chronic back pain with sciatica 13. Gout On allopurinol 14. DVT prophylaxis SC Heparin Discharge Diet: Low fat/ Low Cholesterol Home Medications: Medications to take at Discharge Nitroglycerin [Nitrostat] 0.4 mg SUBLINGUAL Q5M PRN 09/17/15 Isosorbide Mononitrate [Imdur] 30 mg PO DAILY 02/18/17 Albuterol Aerosols [Ventolin Aerosols] 2.5 mg INHALATION Q4H PRN PRN 02/23/17 Ondansetron [Zofran Odt] 4 mg PO Q4H PRN PRN #10 tab.rapdis 02/23/17 Allopurinol 300 mg PO DAILY 05/05/17 Oxycodone HCl/Acetaminophen [Percocet 7.5-325 mg Tablet] 1 tab PO Q6H PRN PRN 06/15/17 Clopidogrel Bisulfate [Plavix] 75 mg PO DAILY #30 tab 06/17/17 metoprolol succinate ER 50 mg tablet,extended release 24 hr 100 mg PO DAILY 07/09/17 albuterol sulfate HFA 90 mcg/actuation aerosol inhaler 2 puff INHALATION Q4H PRN g 07/31/17 fenofibrate nanocrystallized 145 mg tablet 145 mg PO DAILY 07/31/17 nicotine 14 mg/24 hr daily transdermal patch 21 mg TRANSDERMAL Q24H 07/31/17 rosuvastatin 40 mg tablet 40 mg PO DAILY 07/31/17 spironolactone 25 mg tablet 25 mg PO QAM 07/31/17 Furosemide 40 mg PO DAILY 09/03/17 Umeclidinium Brm/Vilanterol Tr [Anoro Ellipta 62.5-25 Mcg INH] 1 inh INHALATION DAILY 09/03/17 Tamsulosin HCl [Flomax] 0.4 mg PO DAILY #30 cap 09/16/17 Aspirin 325 mg PO DAILY@0800 11/15/17 Pantoprazole Sodium [Protonix] 40 mg PO DAILY 11/15/17 Doxycycline 100 mg PO BID #14 cap 11/17/17 Guaifenesin [Mucinex] 1,200 mg PO BID #14 tab 11/17/17 Prednisone 20 mg PO BID #10 tab 11/17/17 Following Prescrptions Were Given to Patient: Doxycycline 100 mg PO BID #14 cap Guaifenesin [Mucinex] 1,200 mg PO BID #14 tab Prednisone 20 mg PO BID #10 tab Primary Care Physician: Juan De La Vega III, MD [Primary Care Provider] - Please follow up with your Primary Care Physician in: in 5-7 days Disposition: Home Minutes spent on discharge:: 35 Patient Condition:: Stable Medical Necessity - Tobacco Use Smoking Status: Former smoker Tobacco Use: Non-smoker Meaningful Use Info Meaningful Use Diagnoses (Choose all that apply): None applicable Code Visit Inpatient E&M: 19329 Disch Hosp
--- NOTE | 2017-11-17 10:40 | DS.PCM_ITS ---
Discharge Date and Diagnosis - Problem List Patient Problems: Active and Suspected Problems (Last Reviewed 08/25/17 @ 12:41 by Tara Baxter) Musculoskeletal chest pain (Acute) URI (upper respiratory infection) (Acute) Acute renal failure superimposed on stage 3 chronic kidney disease (Acute) Date of Admission: 11/15/17 Date of Discharge: 11/17/17 - Primary Discharge Diagnosis Active and Suspected Problems (Last Reviewed 08/25/17 @ 12:41 by Tara Baxter) Musculoskeletal chest pain (Acute) URI (upper respiratory infection) (Acute) Acute renal failure superimposed on stage 3 chronic kidney disease (Acute) - Secondary Discharge Diagnosis Chronic Problems (Last Reviewed 08/25/17 @ 12:41 by Tara Baxter) Nicotine dependence (Chronic) Chronic bronchitis (Chronic) Sciatica (Chronic) Gout (Chronic) Degenerative cervical disc (Chronic) Claudication (Chronic) Chronic back pain (Chronic) Presence of automatic implantable cardioverter-defibrillator (Chronic) Chronic renal failure, stage 3 (moderate) (Chronic) Chronic systolic (congestive) heart failure (Chronic) Stented coronary artery (Chronic ~12/2016) has had 7 stents as of 06/15/17 Ischemic cardiomyopathy (Chronic) 25% ejection fraction in November 2016 V-tach (Chronic) has an AICD Benign essential hypertension (Chronic) Gastroesophageal reflux disease (Chronic) Hyperlipidemia (Chronic) Type 2 diabetes mellitus (Chronic) Morbid obesity (Chronic) CAD (coronary artery disease) (Chronic) Hospital Course and Treatment Imaging Results: Clinical Impression(s) from Imaging Studies Chest X-Ray 11/15/17 05:27 IMPRESSION: No acute cardiopulmonary disease. No significant interval change. Electronically Signed: Mónica Castañeda MD at 5:48 EDT , Service support , Lung Scan-VQ [place] 11/16/17 11:43 IMPRESSION: Normal 99m Tc MAA pulmonary perfusion Tc DTPA aerosol ventilation imaging survey, according to revised PIOPED interpretive criteria. Electronically Signed: Willie Moreno MD at 13:23 EDT , Service support , Operations: None Summary of Care Provided: Patient is a 67-year-old gentleman with multiple comorbidities who presented with progressive shortness of breath associated with a dry cough imaging studies obtained on admission did not demonstrate any infiltrates and assessment of suspected infectious bronchitis made admitted to regular nursing floor where patient has since been managed 1. Acute infectious bronchitis: Patient admitted to a monitored bed chest Xray obtained on admission did not demonstrate any infiltrate managed symptomatically with Mucinex as well as aerosol treatment patient also had venous duplex as well as VQ scan as a result of elevated d-dimer both of which came back unremarkable 2. CAD with previous CABG and subsequent stents placement. Optimal medical therapy 3. History of VT status post AICD placement 4. Chronic kidney disease stage III secondary to diabetic nephropathy 5. Hypertension blood pressure stable did continue with home meds 6. COPD mild exacerbation management as discussed above 7. Diabetes mellitus type II patient is on metformin but continue also placed on oxygen position at bedtime, sliding scale insulin 8. Obesity with BMI of 32.5 weight reduction counseled 9. Dyslipidemia patient is on statin therapy at home 10. GERD patient is on PPI 11. Suspected sleep apnea 12. Chronic back pain with sciatica 13. Gout On allopurinol 14. DVT prophylaxis SC Heparin Discharge Diet: Low fat/ Low Cholesterol Home Medications: Medications to take at Discharge Nitroglycerin [Nitrostat] 0.4 mg SUBLINGUAL Q5M PRN 09/17/15 Isosorbide Mononitrate [Imdur] 30 mg PO DAILY 02/18/17 Albuterol Aerosols [Ventolin Aerosols] 2.5 mg INHALATION Q4H PRN PRN 02/23/17 Ondansetron [Zofran Odt] 4 mg PO Q4H PRN PRN #10 tab.rapdis 02/23/17 Allopurinol 300 mg PO DAILY 05/05/17 Oxycodone HCl/Acetaminophen [Percocet 7.5-325 mg Tablet] 1 tab PO Q6H PRN PRN Clopidogrel Bisulfate [Plavix] 75 mg PO DAILY #30 tab 06/17/17 metoprolol succinate ER 50 mg tablet,extended release 24 hr 100 mg PO DAILY albuterol sulfate HFA 90 mcg/actuation aerosol inhaler 2 puff INHALATION Q4H PRN g 07/31/17 fenofibrate nanocrystallized 145 mg tablet 145 mg PO DAILY 07/31/17 nicotine 14 mg/24 hr daily transdermal patch 21 mg TRANSDERMAL Q24H 07/31/17 rosuvastatin 40 mg tablet 40 mg PO DAILY 07/31/17 spironolactone 25 mg tablet 25 mg PO QAM 07/31/17 Furosemide 40 mg PO DAILY 09/03/17 Umeclidinium Brm/Vilanterol Tr [Anoro Ellipta 62.5-25 Mcg INH] 1 inh INHALATION DAILY 09/03/17 Tamsulosin HCl [Flomax] 0.4 mg PO DAILY #30 cap 09/16/17 Aspirin 325 mg PO DAILY@0800 11/15/17 Pantoprazole Sodium [Protonix] 40 mg PO DAILY 11/15/17 Doxycycline 100 mg PO BID #14 cap 11/17/17 Guaifenesin [Mucinex] 1,200 mg PO BID #14 tab 11/17/17 Prednisone 20 mg PO BID #10 tab 11/17/17 Following Prescrptions Were Given to Patient: Doxycycline 100 mg PO BID #14 cap Guaifenesin [Mucinex] 1,200 mg PO BID #14 tab Prednisone 20 mg PO BID #10 tab Primary Care Physician: Juan De La Vega III, MD [Primary Care Provider] - Please follow up with your Primary Care Physician in: in 5-7 days Disposition: Home Minutes spent on discharge:: 35 Patient Condition:: Stable Medical Necessity - Tobacco Use Smoking Status: Former smoker Tobacco Use: Non-smoker Meaningful Use Info Meaningful Use Diagnoses (Choose all that apply): None applicable Code Visit Inpatient E&M: 59777 Disch Hosp
[2017-11-17 12:01] LABS: Bedside Glucose 155 mg/dL (70-110)
--- NOTE | 2017-11-20 16:25 | CASEMGMT ---
RN CM DISCHARGE F/U PHONE CALL- ATTEMPTED AT THIS TIME WITHOUT SUCCESS, LEFT VOICEMAIL WITH RN CM CONTACT INFORMATION. SSTATEN RN CM
--- NOTE | 2017-11-20 16:34 | CASEMGMT ---
LEONIE JEAN-BAPTISTE DISCHARGE F/U PHONE CALL LACE: 13 STRATA: 4 CALL DATE: 11/20/17 DISCHARGE DATE: 11/17/17 TIME OF CALL: 1633 DURATION: 3 MINUTES ADM DX: JILLIAN, CHEST PAIN, CAD PT STATES HAS BEEN DOING 'GOOD' SINCE DISCHARGE. PT STATES NO QUESTIONS REGARDING D/C INSTRUCTIONS OR MEDICATIONS AT THIS TIME. PT STATES THAT HE GOT ALL HIS SCRIPTS FILLED. PT STATES PLANS TO ATTEND F/U APPT SCHEDULED WITH DR BECK ON 11/24. PT STATES THAT EVERYONE AT [facility] 'DID GREAT' AND STATES NO CONCERNS/SUGGESTIONS AT THIS TIME. PT STATES NO FURTHER CONCERNS/NEEDS AT THIS TIME AND THAT HE HAS THIS LEONIE JEAN-BAPTISTE'S PHONE NUMBER ON HIS PHONE FOR ANY FURTHER QUESTIONS/CONCERNS/NEEDS. SSTATEN LEONIE JEAN-BAPTISTE
== END 2017-11-17 12:25 | disposition home or self-care (01) | DRG 191 ==
LOC: ED 05:36 → PCU 08:11
PROVIDERS: Admitting Provider Internal Medicine; Emergency Provider Emergency Medicine; Family Provider Family Medicine; PCP Family Medicine; Visit Provider Internal Medicine
DX: J44.0 Chronic obstructive pulmonary disease with (acute) lower respiratory infection (principal); N17.9 Acute kidney failure, unspecified; I50.32 Chronic diastolic (congestive) heart failure; J44.1 Chronic obstructive pulmonary disease with (acute) exacerbation; J20.9 Acute bronchitis, unspecified; I12.9 Hypertensive chronic kidney disease with stage 1 through stage 4 chronic kidney disease, or unspecified chronic kidney disease; N18.3 Chronic kidney disease, stage 3 (moderate); I25.10 Atherosclerotic heart disease of native coronary artery without angina pectoris; K21.9 Gastro-esophageal reflux disease without esophagitis; E66.01 Morbid (severe) obesity due to excess calories; Z95.1 Presence of aortocoronary bypass graft; Z95.810 Presence of automatic (implantable) cardiac defibrillator; Z68.32 Body mass index [BMI] 32.0-32.9, adult; Z87.891 Personal history of nicotine dependence; E78.5 Hyperlipidemia, unspecified; M10.9 Gout, unspecified; M54.30 Sciatica, unspecified side; G89.29 Other chronic pain; E11.21 Type 2 diabetes mellitus with diabetic nephropathy; E11.22 Type 2 diabetes mellitus with diabetic chronic kidney disease; G47.30 Sleep apnea, unspecified; I25.5 Ischemic cardiomyopathy
CPT/HCPCS: 36415; 71045; 78582; 80048; 80061; 80076; 82550; 82962; 83036; 83735; 84100; 84484; 85025; 85027; 85379; 87070; 87205; 87449; 87633; 93005; 93970; 94640; 99283; 99406; A9540; A9567; A4216

== ENCOUNTER 2017-12-02 03:55 | Inpatient (IN) | payer MEDICARE, MEDICAID, SELFPAY ==
[2017-12-02] VITALS (22 sets, daily range): BP systolic 108–125; BP diastolic 56–69; PULSE 74–101; RESP 17–32; TEMP 36.4–37.2; O2SAT 92–97; BMI 32.2; BMI 31.2; BMI 31.3
--- NOTE | 2017-12-02 04:01 | RAD_ITS ---
STUDY: X-RAY CHEST REASON FOR EXAM: Male, 67 years old. Chest pain and shortness of breath TECHNIQUE: PA and lateral COMPARISON: 11/15/2017 FINDINGS: Pacemaker leads are in proper position. There is a calcified granuloma the RIGHT lung base. There are fibrotic changes at the lung bases. There is a 15 mm nodular shadow along the LEFT heart border. Pulmonary nodule not excluded. There is NO pleural effusion or pneumothorax. Normal size heart. There has been open heart surgery. Normal mediastinum and serjio. Normal visualized pulmonary arteries. Normal visualized aortic arch and descending thoracic aorta. Normal visualized thoracic spine. Normal visualized ribs, clavicles, and shoulders. There is no demonstrated abnormality of the visualized soft tissue structures of the upper abdomen. RAD/Chest PA and Lateral IMPRESSION: Pacemaker leads are in proper position. There is a calcified granuloma the RIGHT lung base. There are fibrotic changes at the lung bases. There is a 15 mm nodular shadow along the LEFT heart border. Pulmonary nodule not excluded. There is NO pleural effusion or pneumothorax. Normal size heart. There has been open heart surgery. Electronically Signed: Serge Motley MD at 4:55 EDT , Service support ,
--- NOTE | 2017-12-02 04:01 | EKG12_ITS ---
Test Reason : CP Blood Pressure : / mmHG Vent. Rate : 082 BPM Atrial Rate : 082 BPM P-R Int : 146 ms QRS Dur : 098 ms QT Int : 396 ms P-R-T Axes : 058 031 158 degrees QTc Int : 462 ms Normal sinus rhythm ST & T wave abnormality, consider inferolateral ischemia Prolonged QT Abnormal ECG Confirmed by SHAVONNE LUNDBERG, LISA ([id number]), medical editor LANDRY YARBROUGH ([id number]) on 12/04/2017 1:59:16 PM Referred By: BRUNILDA Confirmed By:LISA MARVIN MD
--- NOTE | 2017-12-02 04:06 | ED.DCSUM_ITS ---
- ER Visit Summary Date of Service: 12/02/17 Chief Complaint: [Chest pain, shortness of breath] History of Present Illness: The patient is a 67 M [who presents the emergency department with chest pain and shortness of breath. He started coughing at 12 AM. At 2 AM he became short of breath and had pain in his chest. He thinks it is from coughing so much. He is not coughing up anything. He has a history of coronary artery disease and is status post bypass 11 years ago and has had 10 stents. He also has COPD. He denies any fever. Denies any pain or swelling in his legs. States that he was admitted to the hospital for 3 days 2 weeks ago for pneumonia.] Physical Examination: [] Blood pressure 125/56 heart rate 83 respiratory rate 32 pulse ox 96% on room air temperature 98.2 WN WD mild distress PERRL EOMI MMM NECK supple and nontender, no masses RRR no murmur rub or gallop, no peripheral edema, symmetric radial pulses Diminished breath sounds diffusely with end expiratory wheezing mild accessory muscle use and tachypnea ABDOMEN is soft and nontender, normal bowel sounds, no distension, no rebound or guarding SKIN is warm and dry no rashes Alert and Oriented x3, CN II-XII in tact, no motor or sensory deficits, gait normal No lymphadenopathy Test Results: [] Emergency Department Course and Treatment: [EKG was obtained and sinus at a rate of 82 is unchanged from previous]. Patient was given aerosols and Solu- Medrol. He had really no improvement. He had severe pain in his left chest especially when coughing. He was given aspirin and [place]. And nitro. I do think the patient's symptoms represent a COPD exacerbation. His chest x-ray shows chronic changes. He has a very complex cardiac history and I do think he requires admission. Patient is in agreement with this plan. Treatment Plan: [] Disposition: [Admit] Impression: [1. COPD exacerbation 2. Chest pain] This note was generated with [employer] dictation software. It may contain incorrect words, spelling, and punctuation that were not noted in review of the chart prior to signing ED Disposition - Plan for ED Patient: Chief Complaint: Shortness of Breath Referrals: Juan De La Vega III, MD [Primary Care Provider] -
[2017-12-02] MEDS: Aspirin 81 MG TAB.CHEW 324 MG PO (04:09)
[2017-12-02] MEDS: MethylPREDNISolone 125 MG/2 ML Vial IV (04:09)
[2017-12-02] MEDS: Ipratropium/Albuterol Sulfate 3 ML AMPUL.NEB INHALATION ×6 (04:09→23:55)
[2017-12-02] MEDS: Albuterol 2.5 MG/3 ML VIAL.NEB. INHALATION ×3 (04:09→04:22)
[2017-12-02 04:22] LABS: Absolute Neutrophil Count 6.4 X10^3/uL (2.0-7.7); Basophil# 0.04 X10^3/uL; Basophil% 0.4 % (0-1); Eosinophil# 0.29 X10^3/uL; Eosinophils% 3.2 % (0-5); Hematocrit 38.6 % (40-54); Hemoglobin 12.8 g/dl (13.0-16.5); Lymphocyte % 14.6 % (19-41); Mean Corp Hgb Conc 33.2 g/gl (32-36); Mean Corpuscular Volume 90.6 fL (80-94); Mean Platelet Vol. 10.2 fl (6.2-12.0); Monocyte# 0.84 X10^3/uL; Monocyte% 9.4 % (0-10); Neutrophil # 6.44 X10^3/uL (2.7-7.7); Neutrophil % 72.2 % (47-70); Platelet Count 266 K/mm3 (150-450); RBC Distribution Width CV 14.5 % (11.6-14.6); RBC Distribution Width SD 47.2 fl (35.1-43.9); Red Blood Count 4.26 M/mm3 (4.6-6.2); White Blood Count 8.9 K/mm3 (4.4-11.0)
[2017-12-02 04:23] LABS: POSITIVE COUNT NO; POSITIVE DIFFERENTIAL NO; POSITIVE MORPHOLOGY NO
[2017-12-02 04:46] LABS: Anion Gap 10 (5-15); BUN 35 mg/dL (7-18); BUN/Creat Ratio 16.8 RATIO (10-20); Chloride 108 mmol/L (98-107); Creatinine, Serum 2.08 mg/dL (0.70-1.30); EST Glomerular Filtration Rate 34 mL/min (>60); Est Glom Filt Rate - Afr Amer 41 mL/min (>60); Estimated Creatinine Clearance 34.93 ml/min; Glucose 137 mg/dL (74-106); Potassium 4.6 mmol/L (3.5-5.1); Sodium Level 142 mmol/L (136-145)
[2017-12-02 04:54] LABS: BNP,B-Type NATRIURETIC PEPTIDE 111.3 pg/mL (0-100)
[2017-12-02] MEDS: HYDROcodone Bitartrate/Apap 5/325 Tablet PO (05:36)
--- NOTE | 2017-12-02 05:41 | PCM.HP.STD ---
Problem List (1) COPD (chronic obstructive pulmonary disease) Status: Chronic Qualifiers: COPD type: unspecified COPD Qualified Code(s): J44.9 - Chronic obstructive pulmonary disease, unspecified (2) Obesity (BMI 30.0-34.9) Status: Chronic (3) Chronic back pain Status: Chronic Qualifiers: Back pain location: back pain in unspecified location Back pain laterality: unspecified Qualified Code(s): M54.9 - Dorsalgia, unspecified; G89.29 - Other chronic pain (4) Presence of automatic implantable cardioverter-defibrillator Status: Chronic (5) H/O coronary artery bypass surgery Status: Resolved Comment: HUMPHREY-LAD, SVG-D1, SVG-OM (6) Chronic renal failure, stage 3 (moderate) Status: Chronic (7) Chronic systolic (congestive) heart failure Status: Chronic (8) Stented coronary artery Status: Chronic Comment: has had 7 stents as of 06/15/17 (9) Ischemic cardiomyopathy Status: Chronic Comment: 25% ejection fraction in November 2016 (10) Benign essential hypertension Status: Chronic (11) Gastroesophageal reflux disease Status: Chronic Qualifiers: Esophagitis presence: esophagitis presence not specified Qualified Code(s): K21.9 - Gastro-esophageal reflux disease without esophagitis (12) Hyperlipidemia Status: Chronic Qualifiers: Hyperlipidemia type: unspecified Qualified Code(s): E78.5 - Hyperlipidemia, unspecified (13) Type 2 diabetes mellitus Status: Chronic Qualifiers: Diabetes mellitus penitentiary insulin use: without termination clerk use Diabetes mellitus complication status: with unspecified complications Qualified Code(s): E11.8 - Type 2 diabetes mellitus with unspecified complications (14) CAD (coronary artery disease) Status: Chronic Qualifiers: Coronary Disease-Associated Artery/Lesion type: unspecified vessel or lesion type [place] vs. transplanted heart: unspecified whether [place] or transplanted heart Associated angina: angina presence unspecified Qualified Code(s): I25.10 - Atherosclerotic heart disease of [place] coronary artery without angina pectoris (15) COPD exacerbation Status: Acute (16) Chest pain Status: Acute Qualifiers: Chest pain type: unspecified Qualified Code(s): R07.9 - Chest pain, unspecified (17) JILLIAN (acute kidney injury) Status: Acute History of Present Illness Date of Admission: 12/02/17 Chief Complaint: Chest pain, dyspnea, coughing The patient is a 67 y/o M w/ PMHx: CAD s/p CABG and PCI x 10, Diabetes mellitus type II, Obesity, HTN, HLD, Chronic COPD, Tobacco use history, Chronic Back Pain, Chronic Systolic CHF/Ischemic Cardiomyopathy, Hx VT s/p AICD placement, PVD w/ chronic claudication, CKD stage III (baseline Cr 1.6) who was recently evaluated 11/15/17-11/16/17 for URI, JILLAIN and musculoskeletal chest discomfort who now re-presents to the [facility] ED on 12/02/17 with mild improvement over the last week; however, had onset last 24 hours worsened cough, mildly productive cough with associated diffuse, although he notes > left sided chest discomfort, severe pain primarily with coughing or palpation w/ initial ED presentation w/ accessory usage, increased RR, notably wheezing. In the ED work-up included T 98.2, heart rate 83, BP 125/56, respiratory rate 32, 96% on room air, CBC with W BC 8.9, hemoglobin 12.8, platelet 266 without market shift, BMP with chloride 108, BUN 35/creatinine 2.08, glucose 137, troponin less than 0.02, BNP 111.3, rapid influenza negative, chest x-ray with calcified granuloma right lung base, fibrotic lung changes, 50 mm nodular shadow along the left heart border, status post CABG, EKG with chronic changes w/ no acute evidence ischemic. In the ED patient administered Solu-Medrol, aspirin, DuoNeb, albuterol, [place]. Past Medical History Past Medical History (Chronic Problems): Chronic Problems (Last Reviewed 08/25/17 @ 12:41 by Tara Baxter) COPD (chronic obstructive pulmonary disease) (Chronic) Obesity (BMI 30.0-34.9) (Chronic) Nicotine dependence (Chronic) Chronic bronchitis (Chronic) Sciatica (Chronic) Gout (Chronic) Degenerative cervical disc (Chronic) Claudication (Chronic) Chronic back pain (Chronic) Presence of automatic implantable cardioverter-defibrillator (Chronic) Chronic renal failure, stage 3 (moderate) (Chronic) Chronic systolic (congestive) heart failure (Chronic) Stented coronary artery (Chronic ~12/2016) has had 7 stents as of 06/15/17 Ischemic cardiomyopathy (Chronic) 25% ejection fraction in November 2016 V-tach (Chronic) has an AICD Benign essential hypertension (Chronic) Gastroesophageal reflux disease (Chronic) Hyperlipidemia (Chronic) Type 2 diabetes mellitus (Chronic) Morbid obesity (Chronic) CAD (coronary artery disease) (Chronic) Allergies chlorpromazine HCl [From Thorazine] Allergy (Severe, Verified 12/02/17 04:08) Hives PER PATIENT tramadol HCl [From Ultram] Allergy (Severe, Verified 12/02/17 04:08) Hives PER PATIENT codeine Allergy (Intermediate, Verified 12/02/17 04:08) Hives atorvastatin Adverse Reaction (Intermediate, Verified 12/02/17 04:08) Other LEG PAIN/CRAMPS naproxen Adverse Reaction (Verified 12/02/17 04:08) Upset Stomach Home Medications: Ambulatory Orders Medication Instructions Recorded Nitroglycerin [Nitrostat] 0.4 mg SUBLINGUAL Q5M PRN 09/17/15 Isosorbide Mononitrate [Imdur] 30 mg PO DAILY 02/18/17 Albuterol Aerosols [Ventolin 2.5 mg INHALATION Q4H PRN PRN 02/23/17 Aerosols] Ondansetron [Zofran Odt] 4 mg PO Q4H PRN PRN #10 tab.rapdis 02/23/17 Allopurinol 300 mg PO DAILY 05/05/17 Oxycodone HCl/Acetaminophen 1 tab PO Q6H PRN PRN 06/15/17 [Percocet 7.5-325 mg Tablet] Clopidogrel Bisulfate [Plavix] 75 mg PO DAILY #30 tab 06/17/17 metoprolol succinate ER 50 mg 100 mg PO DAILY 07/09/17 tablet,extended release 24 hr albuterol sulfate HFA 90 2 puff INHALATION Q4H PRN g 07/31/17 mcg/actuation aerosol inhaler fenofibrate nanocrystallized 145 145 mg PO DAILY 07/31/17 mg tablet nicotine 14 mg/24 hr daily 21 mg TRANSDERMAL Q24H 07/31/17 transdermal patch rosuvastatin 40 mg tablet 40 mg PO DAILY 07/31/17 spironolactone 25 mg tablet 25 mg PO QAM 07/31/17 Furosemide 40 mg PO DAILY 09/03/17 Umeclidinium Brm/Vilanterol Tr 1 inh INHALATION DAILY 09/03/17 [Anoro Ellipta 62.5-25 Mcg INH] Aspirin 325 mg PO DAILY@0800 11/15/17 Pantoprazole Sodium [Protonix] 40 mg PO DAILY 11/15/17 Surgical History: - - AICD placement, back surgery x 2, hernia repair, CABG x 4, PCI x 10. Psychiatric History: Anxiety, Depression Lives: Spouse/ Significant Other, With Family Smoking Status: Former smoker - Quit 3 months prior, using NR patch. Tobacco Use: Non-smoker Alcohol: None Drugs: None - *Family History Paternal History Items: Cancer, Heart Disease Maternal History Items: Cancer Review of Systems Constitutional: Reports: Malaise, Weakness, Fatigue. Denies: Chills, Fever, Weight Change HEENT: Denies: Head Aches, Sinus Congestion, Sinus Drainage Cardiovascular: Reports: Chest Pain. Denies: Palpitations Respiratory: Reports: Cough, Pleuritic Pain, Shortness of Breath, Shortness of breath at rest, Shortness of breath upon exertion, Sputum production, Wheezing Gastrointestinal: Denies: Abdominal Pain, Nausea, Vomiting Genitourinary: Denies: Dysuria Musculoskeletal: Reports: Back Pain. Denies: Joint Pain, Joint Tenderness Skin: Denies: Rash, Wounds Neurological: Denies: Numbness, Tingling, Focal weakness Psychiatric: Reports: Anxiety, Depression. Denies: Homicidal Ideations, Suicidal Ideations Hematologic/ Lymphatic: Reports: Anemia. Denies: Easy Bruising, Easy Bleeding VTE Information - Inpt Only VTE Present on Admission: No VTE Mechan Device Prophylaxis: SCD's VTE Pharm Prophylaxis ordered?: Yes Patient Problems: Active and Suspected Problems (Last Reviewed 08/25/17 @ 12:41 by Tara Baxter) COPD exacerbation (Acute) Chest pain (Acute) JILLIAN (acute kidney injury) (Acute) Subjective: Seated upright in the ED bed, fatigued appearance, coughing during examination, gasping in pain and grabbing chest w/ coughing. Objective: Physical Examination: General: awake, alert, oriented x 3 and cooperative, seated upright in the ED bed, fatigued appearance, notes ongoing chest discomfort w/ coughing. Skin: normal color, turgor, no icterus, cyanosis. HEENT: AT/NC, EOMI, PERRLA, moderately dry MM, no carotid bruits or JVD noted. Lungs: Severely diminished, > bases, poor effort, harshing coughing but no productive sputum, expiratory wheezing. Heart: Regular rate and rhythm; no gallop, rub audible, + diffuse discomfort w/ anterior chest palpation. Abdomen: soft, obese, NTTP, ND, normal BS, no HSM. Extremities: no cyanosis, clubbing, or edema. Neurological: patient awake, alert, oriented x 3; cognitive function intact; pupils equally reactive to light and accomodation; cranial nerves II-XII grossly normal, moving all 4 extremities, no focal deficits, strength severely globally decreased secondary to acute presentation. Psychiatric: affect appears fatigued, no acute evidence of depressive or anxiety feelings. - Physical Exam Vital Signs Temp Pulse Resp BP Pulse Ox 98.2 F 89 20 H 108/57 L 94 12/02/17 03:56 12/02/17 05:15 12/02/17 05:15 12/02/17 05:15 12/02/17 05:15 Oxygen Delivery Method Room Air Weight: 218 lb 4.122 oz Body Mass Index (BMI) 32.2 Microbiology Past 72 Hours 12/02/17 04:08 Influenza Types A,B Direct FA (PAT) - Final Mucosa - Nose Laboratory Tests Past 24 Hrs 12/02/17 12/02/17 12/02/17 04:05 04:05 04:05 WBC 8.9 RBC 4.26 L Hgb 12.8 L Hct 38.6 L MCV 90.6 MCH 30.0 MCHC 33.2 RDW 14.5 RDW Differential 47.2 H Plt Count 266 MPV 10.2 Immature Gran % (Auto) 0.200 Neut % (Auto) 72.2 H Lymph % (Auto) 14.6 L [place] % (Auto) 9.4 Eos % (Auto) 3.2 Baso % (Auto) 0.4 Absolute Neuts (auto) 6.4 Absolute Lymphs (auto) 1.30 Total Counted Not Reportable Sodium 142 Potassium 4.6 Chloride 108 H Carbon Dioxide 24.0 Anion Gap 10 BUN 35 H Creatinine 2.08 H Estim Creat Clear Calc 34.93 Est GFR (MDRD) Af Amer 41 L Est GFR (MDRD) Non-Af 34 L BUN/Creatinine Ratio 16.8 Glucose 137 H Calcium 8.0 L Troponin I < 0.02 B-Natriuretic Peptide 111.3 H Assessment/Plan Active and Suspected Problems (Last Reviewed 08/25/17 @ 12:41 by Tara Baxter) COPD exacerbation (Acute) Chest pain (Acute) JILLIAN (acute kidney injury) (Acute) The patient is a 67 y/o M w/ PMHx: CAD s/p CABG and PCI x 10, Diabetes mellitus type II, Obesity, HTN, HLD, Chronic COPD, Tobacco use history, Chronic Back Pain, Chronic Systolic CHF/Ischemic Cardiomyopathy, Hx VT s/p AICD placement, PVD w/ chronic claudication, CKD stage III (baseline Cr 1.6) who was recently evaluated 11/15/17-11/16/17 for URI, JILLIAN and musculoskeletal chest discomfort who now re-presents to the [facility] ED on 12/02/17 with mild improvement over the last week; however, had onset last 24 hours worsened cough, mildly productive cough with associated diffuse, although he notes > left sided chest discomfort, severe pain primarily with coughing or palpation w/ initial ED presentation w/ accessory usage, increased RR, notably wheezing. (1) Acute on chronic COPD exacerbation: CXR w/ chronic changes. Will admit to PCU, maintain on oxygen with wean as tolerated to room air, continue ATC duonebs, PRN albuterol, IV methylprednisolone with prednisone transition, HOB, IS parameters, defer abx, pending sputum Cx request, pending respiratory viral panel. (2) Acute kidney injury: Secondary to recently acute illness, decreased oral intake. Admission BUN/Cr 35/2.08, prior baseline creatinine noted to be 1.6. Will gently hydrate given CHF history, hold nephrotoxic medications and repeat chemistry in AM. (3) Chest Pain: EKG without acute findings, trop normal x 1, EKG with chronic changes. Will place on a monitored bed to assure no acute myocardial infarction with serial cardiac enzymes and EKGs. Likely secondary to #1. ASA, NG, morphine. (4) Diabetes mellitus type II: Hold oral home regimen, ADA diet, accu checks w/ ISS. (5) CAD: s/p CABG and PCI history. Will continue home regimen asa, plavix, statin, BB. (6) Hypertension: Continue home regimen including lasix, imdur, isosorbid, PRN hydralazine. (7) Hyperlipidemia: Continue home statin and fenofibrate regimen. (8) Tobacco: Encouraged continued cessation with nicotine patch usage, RT for cessation education. (9) Chronic Systolic CHF/Ischemic Cardiomyopathy: s/p AICD history, maintained on asa, plavix, statin, BB, spironolactone, not on ACEI/ARB. (10) Hx VT; s/p AICD placement. (11) GERD: PPI. (12) DVT Prophylaxis: SCDs, heparin. Code Visit Inpatient E&M: 54676 Init Hosp L3
--- NOTE | 2017-12-02 05:54 | HP.PCM_ITS ---
Problem List (1) COPD (chronic obstructive pulmonary disease) Status: Chronic Qualifiers: COPD type: unspecified COPD Qualified Code(s): J44.9 - Chronic obstructive pulmonary disease, unspecified (2) Obesity (BMI 30.0-34.9) Status: Chronic (3) Chronic back pain Status: Chronic Qualifiers: Back pain location: back pain in unspecified location Back pain laterality : unspecified Qualified Code(s): M54.9 - Dorsalgia, unspecified; G89.29 - Other chronic pain (4) Presence of automatic implantable cardioverter-defibrillator Status: Chronic (5) H/O coronary artery bypass surgery Status: Resolved Comment: HUMPHREY-LAD, SVG-D1, SVG-OM (6) Chronic renal failure, stage 3 (moderate) Status: Chronic (7) Chronic systolic (congestive) heart failure Status: Chronic (8) Stented coronary artery Status: Chronic Comment: has had 7 stents as of 06/15/17 (9) Ischemic cardiomyopathy Status: Chronic Comment: 25% ejection fraction in November 2016 (10) Benign essential hypertension Status: Chronic (11) Gastroesophageal reflux disease Status: Chronic Qualifiers: Esophagitis presence: esophagitis presence not specified Qualified Code(s) : K21.9 - Gastro-esophageal reflux disease without esophagitis (12) Hyperlipidemia Status: Chronic Qualifiers: Hyperlipidemia type: unspecified Qualified Code(s): E78.5 - Hyperlipidemia , unspecified (13) Type 2 diabetes mellitus Status: Chronic Qualifiers: Diabetes mellitus senior care insulin use: without senior care use Diabetes mellitus complication status: with unspecified complications Qualified Code(s) : E11.8 - Type 2 diabetes mellitus with unspecified complications (14) CAD (coronary artery disease) Status: Chronic Qualifiers: Coronary Disease-Associated Artery/Lesion type: unspecified vessel or lesion type [place] vs. transplanted heart: unspecified whether [place] or transplanted heart Associated angina: angina presence unspecified Qualified Code(s): I25.10 - Atherosclerotic heart disease of [place] coronary artery without angina pectoris (15) COPD exacerbation Status: Acute (16) Chest pain Status: Acute Qualifiers: Chest pain type: unspecified Qualified Code(s): R07.9 - Chest pain, unspecified (17) JILLIAN (acute kidney injury) Status: Acute History of Present Illness Date of Admission: 12/02/17 Chief Complaint: Chest pain, dyspnea, coughing The patient is a 67 y/o M w/ PMHx: CAD s/p CABG and PCI x 10, Diabetes mellitus type II, Obesity, HTN, HLD, Chronic COPD, Tobacco use history, Chronic Back Pain , Chronic Systolic CHF/Ischemic Cardiomyopathy, Hx VT s/p AICD placement, PVD w / chronic claudication, CKD stage III (baseline Cr 1.6) who was recently evaluated 11/15/17-11/16/17 for URI, JILLIAN and musculoskeletal chest discomfort who now re-presents to the [facility] ED on 12/02/17 with mild improvement over the last week ; however, had onset last 24 hours worsened cough, mildly productive cough with associated diffuse, although he notes > left sided chest discomfort, severe pain primarily with coughing or palpation w/ initial ED presentation w/ accessory usage, increased RR, notably wheezing. In the ED work-up included T 98.2, heart rate 83, BP 125/56, respiratory rate 32, 96% on room air, CBC with W BC 8.9, hemoglobin 12.8, platelet 266 without market shift, BMP with chloride 108, BUN 35/creatinine 2.08, glucose 137, troponin less than 0.02, BNP 111.3, rapid influenza negative, chest x-ray with calcified granuloma right lung base, fibrotic lung changes, 50 mm nodular shadow along the left heart border, status post CABG, EKG with chronic changes w/ no acute evidence ischemic. In the ED patient administered Solu-Medrol, aspirin, DuoNeb, albuterol, Mauldin. Past Medical History Past Medical History (Chronic Problems): Chronic Problems (Last Reviewed 08/25/17 @ 12:41 by Tara Baxter) COPD (chronic obstructive pulmonary disease) (Chronic) Obesity (BMI 30.0-34.9) (Chronic) Nicotine dependence (Chronic) Chronic bronchitis (Chronic) Sciatica (Chronic) Gout (Chronic) Degenerative cervical disc (Chronic) Claudication (Chronic) Chronic back pain (Chronic) Presence of automatic implantable cardioverter-defibrillator (Chronic) Chronic renal failure, stage 3 (moderate) (Chronic) Chronic systolic (congestive) heart failure (Chronic) Stented coronary artery (Chronic ~12/2016) has had 7 stents as of 06/15/17 Ischemic cardiomyopathy (Chronic) 25% ejection fraction in November 2016 V-tach (Chronic) has an AICD Benign essential hypertension (Chronic) Gastroesophageal reflux disease (Chronic) Hyperlipidemia (Chronic) Type 2 diabetes mellitus (Chronic) Morbid obesity (Chronic) CAD (coronary artery disease) (Chronic) Allergies chlorpromazine HCl [From Thorazine] Allergy (Severe, Verified 12/02/17 04:08) Hives PER PATIENT tramadol HCl [From Ultram] Allergy (Severe, Verified 12/02/17 04:08) Hives PER PATIENT codeine Allergy (Intermediate, Verified 12/02/17 04:08) Hives atorvastatin Adverse Reaction (Intermediate, Verified 12/02/17 04:08) Other LEG PAIN/CRAMPS naproxen Adverse Reaction (Verified 12/02/17 04:08) Upset Stomach Home Medications: Ambulatory Orders Medication Instructions Recorded Nitroglycerin [Nitrostat] 0.4 mg SUBLINGUAL Q5M PRN 09/17/15 Isosorbide Mononitrate [Imdur] 30 mg PO DAILY 02/18/17 Albuterol Aerosols [Ventolin 2.5 mg INHALATION Q4H PRN PRN 02/23/17 Aerosols] Ondansetron [Zofran Odt] 4 mg PO Q4H PRN PRN #10 tab.rapdis 02/23/17 Allopurinol 300 mg PO DAILY 05/05/17 Oxycodone HCl/Acetaminophen 1 tab PO Q6H PRN PRN 06/15/17 [Percocet 7.5-325 mg Tablet] Clopidogrel Bisulfate [Plavix] 75 mg PO DAILY #30 tab 06/17/17 metoprolol succinate ER 50 mg 100 mg PO DAILY 07/09/17 tablet,extended release 24 hr albuterol sulfate HFA 90 2 puff INHALATION Q4H PRN g 07/31/17 mcg/actuation aerosol inhaler fenofibrate nanocrystallized 145 145 mg PO DAILY 07/31/17 mg tablet nicotine 14 mg/24 hr daily 21 mg TRANSDERMAL Q24H 07/31/17 transdermal patch rosuvastatin 40 mg tablet 40 mg PO DAILY 07/31/17 spironolactone 25 mg tablet 25 mg PO QAM 07/31/17 Furosemide 40 mg PO DAILY 09/03/17 Umeclidinium Brm/Vilanterol Tr 1 inh INHALATION DAILY 09/03/17 [Anoro Ellipta 62.5-25 Mcg INH] Aspirin 325 mg PO DAILY@0800 11/15/17 Pantoprazole Sodium [Protonix] 40 mg PO DAILY 11/15/17 Surgical History: - - AICD placement, back surgery x 2, hernia repair, CABG x 4 , PCI x 10. Psychiatric History: Anxiety, Depression Lives: Spouse/ Significant Other, With Family Smoking Status: Former smoker - Quit 3 months prior, using NR patch. Tobacco Use: Non-smoker Alcohol: None Drugs: None - *Family History Paternal History Items: Cancer, Heart Disease Maternal History Items: Cancer Review of Systems Constitutional: Reports: Malaise, Weakness, Fatigue. Denies: Chills, Fever, Weight Change HEENT: Denies: Head Aches, Sinus Congestion, Sinus Drainage Cardiovascular: Reports: Chest Pain. Denies: Palpitations Respiratory: Reports: Cough, Pleuritic Pain, Shortness of Breath, Shortness of breath at rest, Shortness of breath upon exertion, Sputum production, Wheezing Gastrointestinal: Denies: Abdominal Pain, Nausea, Vomiting Genitourinary: Denies: Dysuria Musculoskeletal: Reports: Back Pain. Denies: Joint Pain, Joint Tenderness Skin: Denies: Rash, Wounds Neurological: Denies: Numbness, Tingling, Focal weakness Psychiatric: Reports: Anxiety, Depression. Denies: Homicidal Ideations, Suicidal Ideations Hematologic/ Lymphatic: Reports: Anemia. Denies: Easy Bruising, Easy Bleeding VTE Information - Inpt Only VTE Present on Admission: No VTE Mechan Device Prophylaxis: SCD's VTE Pharm Prophylaxis ordered?: Yes Patient Problems: Active and Suspected Problems (Last Reviewed 08/25/17 @ 12:41 by Tara Baxter) COPD exacerbation (Acute) Chest pain (Acute) JILLIAN (acute kidney injury) (Acute) Subjective: Seated upright in the ED bed, fatigued appearance, coughing during examination, gasping in pain and grabbing chest w/ coughing. Objective: Physical Examination: General: awake, alert, oriented x 3 and cooperative, seated upright in the ED bed, fatigued appearance, notes ongoing chest discomfort w/ coughing. Skin: normal color, turgor, no icterus, cyanosis. HEENT: AT/NC, EOMI, PERRLA, moderately dry MM, no carotid bruits or JVD noted. Lungs: Severely diminished, > bases, poor effort, harshing coughing but no productive sputum, expiratory wheezing. Heart: Regular rate and rhythm; no gallop, rub audible, + diffuse discomfort w/ anterior chest palpation. Abdomen: soft, obese, NTTP, ND, normal BS, no HSM. Extremities: no cyanosis, clubbing, or edema. Neurological: patient awake, alert, oriented x 3; cognitive function intact; pupils equally reactive to light and accomodation; cranial nerves II-XII grossly normal, moving all 4 extremities, no focal deficits, strength severely globally decreased secondary to acute presentation. Psychiatric: affect appears fatigued, no acute evidence of depressive or anxiety feelings. - Physical Exam Vital Signs Temp Pulse Resp BP Pulse Ox 98.2 F 89 20 H 108/57 L 94 12/02/17 03:56 12/02/17 05:15 12/02/17 05:15 12/02/17 05:15 12/02/17 05:15 Oxygen Delivery Method Room Air Weight: 218 lb 4.122 oz Body Mass Index (BMI) 32.2 Microbiology Past 72 Hours 12/02/17 04:08 Influenza Types A,B Direct FA (PAT) - Final Mucosa - Nose Laboratory Tests Past 24 Hrs 12/02/17 12/02/17 12/02/17 04:05 04:05 04:05 WBC 8.9 RBC 4.26 L Hgb 12.8 L Hct 38.6 L MCV 90.6 MCH 30.0 MCHC 33.2 RDW 14.5 RDW Differential 47.2 H Plt Count 266 MPV 10.2 Immature Gran % (Auto) 0.200 Neut % (Auto) 72.2 H Lymph % (Auto) 14.6 L Charles % (Auto) 9.4 Eos % (Auto) 3.2 Baso % (Auto) 0.4 Absolute Neuts (auto) 6.4 Absolute Lymphs (auto) 1.30 Total Counted Not Reportable Sodium 142 Potassium 4.6 Chloride 108 H Carbon Dioxide 24.0 Anion Gap 10 BUN 35 H Creatinine 2.08 H Estim Creat Clear Calc 34.93 Est GFR (MDRD) Af Amer 41 L Est GFR (MDRD) Non-Af 34 L BUN/Creatinine Ratio 16.8 Glucose 137 H Calcium 8.0 L Troponin I < 0.02 B-Natriuretic Peptide 111.3 H Assessment/Plan Active and Suspected Problems (Last Reviewed 08/25/17 @ 12:41 by Tara Baxter) COPD exacerbation (Acute) Chest pain (Acute) JILLIAN (acute kidney injury) (Acute) The patient is a 67 y/o M w/ PMHx: CAD s/p CABG and PCI x 10, Diabetes mellitus type II, Obesity, HTN, HLD, Chronic COPD, Tobacco use history, Chronic Back Pain , Chronic Systolic CHF/Ischemic Cardiomyopathy, Hx VT s/p AICD placement, PVD w / chronic claudication, CKD stage III (baseline Cr 1.6) who was recently evaluated 11/15/17-11/16/17 for URI, JILLIAN and musculoskeletal chest discomfort who now re-presents to the [facility] ED on 12/02/17 with mild improvement over the last week ; however, had onset last 24 hours worsened cough, mildly productive cough with associated diffuse, although he notes > left sided chest discomfort, severe pain primarily with coughing or palpation w/ initial ED presentation w/ accessory usage, increased RR, notably wheezing. (1) Acute on chronic COPD exacerbation: CXR w/ chronic changes. Will admit to PCU, maintain on oxygen with wean as tolerated to room air, continue ATC duonebs , PRN albuterol, IV methylprednisolone with prednisone transition, HOB, IS parameters, defer abx, pending sputum Cx request, pending respiratory viral panel. (2) Acute kidney injury: Secondary to recently acute illness, decreased oral intake. Admission BUN/Cr 35/2.08, prior baseline creatinine noted to be 1.6. Will gently hydrate given CHF history, hold nephrotoxic medications and repeat chemistry in AM. (3) Chest Pain: EKG without acute findings, trop normal x 1, EKG with chronic changes. Will place on a monitored bed to assure no acute myocardial infarction with serial cardiac enzymes and EKGs. Likely secondary to #1. ASA, NG, morphine. (4) Diabetes mellitus type II: Hold oral home regimen, ADA diet, accu checks w/ ISS. (5) CAD: s/p CABG and PCI history. Will continue home regimen asa, plavix, statin, BB. (6) Hypertension: Continue home regimen including lasix, imdur, isosorbid, PRN hydralazine. (7) Hyperlipidemia: Continue home statin and fenofibrate regimen. (8) Tobacco: Encouraged continued cessation with nicotine patch usage, RT for cessation education. (9) Chronic Systolic CHF/Ischemic Cardiomyopathy: s/p AICD history, maintained on asa, plavix, statin, BB, spironolactone, not on ACEI/ARB. (10) Hx VT; s/p AICD placement. (11) GERD: PPI. (12) DVT Prophylaxis: SCDs, heparin. Code Visit Inpatient E&M: 60594 Init Hosp L3
--- NOTE | 2017-12-02 07:13 | EKG12_ITS ---
Test Reason : ROUTINE Blood Pressure : / mmHG Vent. Rate : 082 BPM Atrial Rate : 082 BPM P-R Int : 148 ms QRS Dur : 100 ms QT Int : 430 ms P-R-T Axes : 067 036 178 degrees QTc Int : 502 ms Normal sinus rhythm ST & T wave abnormality, consider inferior ischemia ST & T wave abnormality, consider anterolateral ischemia Prolonged QT Abnormal ECG When compared with ECG of 02-DEC-2017 03:59, MANUAL COMPARISON REQUIRED, DATA IS UNCONFIRMED Confirmed by SHAVONNE LUNDBERG, LISA ([id number]), book editor LANDRY YARBROUGH ([id number]) on 12/04/2017 2:26:49 PM Referred By: AMBROSIO Confirmed By:LISA MARVIN MD
[2017-12-02] MEDS: Aspirin 325 MG Tablet PO (09:06)
[2017-12-02] MEDS: Metoprolol(XL)Succ 100 MG Tablet PO (09:06)
[2017-12-02] MEDS: 0.9% Normal Saline 1,000 ML 100 ML IV (09:06)
[2017-12-02] MEDS: Furosemide 40 MG Tablet PO (09:06)
[2017-12-02] MEDS: guaiFENesin 1,200 MG Tablet 1200 MG PO ×2 (09:06→21:04)
[2017-12-02] MEDS: Spironolactone 25 MG Tablet PO (09:06)
[2017-12-02] MEDS: Allopurinol 300 MG Tablet PO (09:06)
[2017-12-02] MEDS: Pantoprazole Sodium 40 MG Tablet PO (09:06)
[2017-12-02] MEDS: Fenofibrate 145 MG Tablet PO (09:06)
[2017-12-02] MEDS: Isosorbide Mononitrate 30 MG Tablet PO (09:06)
[2017-12-02] MEDS: Clopidogrel Bisulfate 75 MG Tablet PO (09:06)
[2017-12-02 09:21] LABS: Bedside Glucose 158 mg/dL (70-110)
[2017-12-02] MEDS: Morphine 2 MG/ML Syringe IV ×3 (11:23→17:49)
[2017-12-02 12:00] LABS: Bedside Glucose 289 mg/dL (70-110)
--- NOTE | 2017-12-02 12:04 | CASEMGMT ---
Face to Face with patient for initial transition planning/care coordination assessment. RN ESTIVEN introduced self and role at [facility], pt voices understanding and consents to assessment at this time. Pt is lying in bed in no distress at this time. Pt is A/O x4 at this time and answers all questions appropriately at this time. Care providers, pharmacy, and demographics verified. See attached link. Pt voices no further concerns/needs at this time. Advsied pt to ask for CM for any further questions/concerns/needs arise, voices understanding. CM to follow for any further discharge planning/needs. PLAN[place] [facility]
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
--- NOTE | 2017-12-02 13:47 | ECHOCS_ITS ---
Reason For Study: CAD/ASHD Procedure This was a 2D Doppler, Color Flow transthoracic echocardiogram. The study was technically difficult. Exam performed portable in patient room. Left Ventricle Mildly dilated left ventricle. The estimated ejection fraction is 25 %. Stage 1 diastolic dysfunction. There are regional wall motion abnormalities as specified. Right Ventricle Normal size and thickness. ICD or pacer leads identified within the right ventricle. Normal systolic function. Atria The left atrium is mildly enlarged. Normal right atrium. Normal atrial septum. Mitral Valve Mild diffuse mitral valve thickening. Mild mitral valve stenosis. Trivial mitral valve insufficiency. Tricuspid Valve Normal tricuspid valve. Trivial tricuspid valve insufficiency. Unable to estimate RV systolic pressure/pulmonary artery pressure due to technically difficult study. Aortic Valve Trisinus/trileaflet aortic valve. Mild diffuse aortic valve thickening. Mild aortic stenosis. Pulmonic Valve Normal pulmonic valve. Great Vessels Normal aortic root. Normal arch. Normal inferior vena cava. Inferior vena cava collapse with sniff. Pericardium/Pleural No pericardial effusion. Medication Definity0.5ml given slow IV push to enhance endocardial definition. MMode/2D Measurements & Calculations LVIDd: 5.1 cm IVSd: 1.3 cm LVOT diam: 2.1 cm LVIDs: 4.4 cm LVPWd: 1.1 cm LVOT area: 3.5 cm2 RVDd: 4.1 cm FS: 14.2 % Ao root diam: 3.6 cm LAV(MOD-bp): 61.9 ml LA A4 area: 21.6 cm2 LA dimension: 4.4 cm LAV(MOD-bp) Indexed: 29.3 ml/m2 LAV(MOD-sp2): 55.4 ml LAV(MOD-sp4): 73.2 ml RA A4 area: 12.8 cm2 Time Measurements MV dec time: 0.06 sec Doppler Measurements & Calculations MV E max neal: 83.7 cm/sec Lat Peak E' Neal: 6.8 cm/sec Med Peak E' Neal: 3.6 cm/sec MV A max neal: 141.4 cm/sec E/E' lat: 12.2 E/E' med: 23.2 MV E/A: 0.59 MV V2 max: 158.5 cm/sec MV P1/2t max neal: 105.2 cm/sec Ao V2 max: 218.9 cm/sec MV max P.1 mmHg MV P1/2t: 80.3 msec Ao max P.2 mmHg MV V2 mean: 93.8 cm/sec MV dec slope: 383.7 cm/sec2 Ao V2 mean: 146.3 cm/sec MV mean P.0 mmHg MVA(P1/2t): 2.7 cm2 Ao mean P.7 mmHg MV V2 VTI: 34.2 cm Ao V2 VTI: 39.6 cm MVA(VTI): 2.6 cm2 DEMETRIS(I,D): 2.3 cm2 DEMETRIS(V,D): 2.1 cm2 LV V1 max: 128.8 cm/sec SV(LVOT): 90.0 ml PA V2 max: 146.4 cm/sec LV V1 max P.6 mmHg LV V1 mean P.6 mmHg LV V1 mean: 89.8 cm/sec LV V1 VTI: 25.6 cm Interpretation Summary Mildly dilated left ventricle. The estimated ejection fraction is 25 %. Stage 1 diastolic dysfunction. There are regional wall motion abnormalities as specified. Unable to estimate RV systolic pressure/pulmonary artery pressure due to technically difficult study. Mild aortic stenosis. Mild mitral valve stenosis. Compared to echo report dated 11/28/2016, no appreciable changes noted. The study was technically difficult. Contrast injection was performed. Ordering Physician: Gentyr Ponce Referring Physician: Juan De La Vega Performed By: Jeanette Park, KALINA, RVT
[2017-12-02] MEDS: Heparin Injection (Vial) 5,000 UNIT/ML VIAL 5000 UNIT SC ×2 (14:12→21:04)
--- NOTE | 2017-12-02 14:43 | CON.PCM_ITS ---
Problem List (1) COPD exacerbation Status: Acute (2) Chest pain Status: Acute Qualifiers: Chest pain type: unspecified Qualified Code(s): R07.9 - Chest pain, unspecified (3) Nicotine dependence Status: Chronic Qualifiers: Substance use status: in remission (4) Presence of automatic implantable cardioverter-defibrillator Status: Chronic (5) H/O coronary artery bypass surgery Status: Resolved Comment: HUMPHREY-LAD, SVG-D1, SVG-OM (6) Ischemic cardiomyopathy Status: Chronic Comment: 25% ejection fraction in November 2016 (7) Hyperlipidemia Status: Chronic Qualifiers: Hyperlipidemia type: unspecified Qualified Code(s): E78.5 - Hyperlipidemia , unspecified (8) CAD (coronary artery disease) Status: Chronic Qualifiers: Coronary Disease-Associated Artery/Lesion type: unspecified vessel or lesion type [place] vs. transplanted heart: unspecified whether [place] or transplanted heart Associated angina: angina presence unspecified Qualified Code(s): I25.10 - Atherosclerotic heart disease of [place] coronary artery without angina pectoris Reason for Consult Date of Consultation: 12/02/17 Reason for Consultation: Chest pain, shortness of breath, coronary disease, ischemic cardio myopathy, status post AICD, History of Present Illness: The patient is a 67 year old M, former patient of Dr. Santos, current patient of Dr. Inman, last seen in the office on 07/09/[address] Inman. He has a history of hypertension, hypercholesterolemia, chronic renal insufficiency, coronary artery disease status post urgent four-vessel bypass surgery by Dr. Payton on 04/30/09. At that time he received a HUMPHREY to the LAD, saphenous vein graft to the diagonal, saphenous vein graft to the right ventricular branch of the RCA, and a saphenous vein graft of the obtuse marginal. Patient has had several catheterizations since that time, and has required a total of 10 stents over that period of time. The most recent occurred on 08/05/16 at which time he was transferred [facility] and when repeat catheterization by Dr. Worley. This demonstrated severe three-vessel coronary artery disease atretic HUMPHREY to the LAD, occluded saphenous vein grafts to the first diagonal and distal RCA, patent saphenous vein graft to the OM #1 with a patent proximal body stent with 50% mid in-stent restenosis, 90% mid body de romi stenosis which was last remaining conduit. At that time he had a high risk intervention receiving a 4.0X 16 drug-eluting stent to the saphenous vein graft to the OM. His EF is 25% and he has an AICD. He has had no AICD discharges. Patient was doing well until yesterday when he had consumed a copious amount of pickles as well as the pickle juice itself, as well as a copious amount of salted chicken noodle soup. Last night while he was sleeping he was awoken with substernal chest pain and significant shortness of breath requiring him to come to the emergency room. In the emergency room he was found to be in respiratory distress and received IV diuretic therapy, DuoNeb, and steroid therapy. An EKG was done which showed normal sinus rhythm with a incomplete left bundle branch block anterior T-wave inversion and old anterior septal wall myocardial infarction. Overnight the patient has been doing fairly well, has a significant cough. He denies any fevers or chills. He does produce some mucus as well. His first 2 troponins were essentially negative. Echocardiogram is pending. Patient states that he is compliant with his medicines but has an increased abdominal girth, early satiety, and progressively worsening orthopnea. He is also medically noncompliant with salt and fluid intake. [] Past Medical History Allergies/Adverse Reactions: Allergies chlorpromazine HCl [From Thorazine] Allergy (Severe, Verified 12/02/17 04:08) Hives PER PATIENT tramadol HCl [From Ultram] Allergy (Severe, Verified 12/02/17 04:08) Hives PER PATIENT codeine Allergy (Intermediate, Verified 12/02/17 04:08) Hives atorvastatin Adverse Reaction (Intermediate, Verified 12/02/17 04:08) Other LEG PAIN/CRAMPS naproxen Adverse Reaction (Verified 12/02/17 04:08) Upset Stomach Home Medications: Ambulatory Orders Medication Instructions Recorded Nitroglycerin [Nitrostat] 0.4 mg SUBLINGUAL Q5M PRN 09/17/15 Isosorbide Mononitrate [Imdur] 30 mg PO DAILY 02/18/17 Albuterol Aerosols [Ventolin 2.5 mg INHALATION Q4H PRN PRN 02/23/17 Aerosols] Ondansetron [Zofran Odt] 4 mg PO Q4H PRN PRN #10 tab.rapdis 02/23/17 Allopurinol 300 mg PO DAILY 05/05/17 Oxycodone HCl/Acetaminophen 1 tab PO Q6H PRN PRN 06/15/17 [Percocet 7.5-325 mg Tablet] Clopidogrel Bisulfate [Plavix] 75 mg PO DAILY #30 tab 06/17/17 metoprolol succinate ER 50 mg 100 mg PO DAILY 07/09/17 tablet,extended release 24 hr albuterol sulfate HFA 90 2 puff INHALATION Q4H PRN g 07/31/17 mcg/actuation aerosol inhaler fenofibrate nanocrystallized 145 145 mg PO DAILY 07/31/17 mg tablet nicotine 14 mg/24 hr daily 21 mg TRANSDERMAL Q24H 07/31/17 transdermal patch rosuvastatin 40 mg tablet 40 mg PO DAILY 07/31/17 spironolactone 25 mg tablet 25 mg PO QAM 07/31/17 Furosemide 40 mg PO DAILY 09/03/17 Umeclidinium Brm/Vilanterol Tr 1 inh INHALATION DAILY 09/03/17 [Anoro Ellipta 62.5-25 Mcg INH] Aspirin 325 mg PO DAILY@0800 11/15/17 Pantoprazole Sodium [Protonix] 40 mg PO DAILY 11/15/17 Past Medical History (Chronic Problems): Chronic Problems (Last Reviewed 08/25/17 @ 12:41 by Tara Baxter) COPD (chronic obstructive pulmonary disease) (Chronic) Obesity (BMI 30.0-34.9) (Chronic) Nicotine dependence (Chronic) Chronic bronchitis (Chronic) Sciatica (Chronic) Gout (Chronic) Degenerative cervical disc (Chronic) Claudication (Chronic) Chronic back pain (Chronic) Presence of automatic implantable cardioverter-defibrillator (Chronic) Chronic renal failure, stage 3 (moderate) (Chronic) Chronic systolic (congestive) heart failure (Chronic) Stented coronary artery (Chronic ~12/2016) has had 7 stents as of 06/15/17 Ischemic cardiomyopathy (Chronic) 25% ejection fraction in November 2016 V-tach (Chronic) has an AICD Benign essential hypertension (Chronic) Gastroesophageal reflux disease (Chronic) Hyperlipidemia (Chronic) Type 2 diabetes mellitus (Chronic) Morbid obesity (Chronic) CAD (coronary artery disease) (Chronic) Surgical History: - - AICD placement, back surgery x 2, hernia repair, CABG x 4 , PCI x 10. Psychiatric History: Anxiety, Depression - *Family History Paternal Family History: Family History (Last Reviewed 08/25/17 @ 12:41 by Tara Baxter) Brother CAD (coronary artery disease) Myocardial infarction Sudden cardiac Mother Cancer Hypertension Father Cancer COPD (chronic obstructive pulmonary disease) History Items: Cancer, Heart Disease Maternal Family History: Family History (Last Reviewed 08/25/17 @ 12:41 by Tara Baxter) Brother CAD (coronary artery disease) Myocardial infarction Sudden cardiac Mother Cancer Hypertension Father Cancer COPD (chronic obstructive pulmonary disease) History Items: Cancer Lives: Spouse/ Significant Other, With Family Smoking Status: Former smoker Tobacco Use: Non-smoker Alcohol: None Drugs: None Subjectve: Patient laying in bed, no acute distress. Objective: Vital Signs Temp Pulse Resp BP Pulse Ox 98.4 F 99 18 119/59 L 94 12/02/17 11:36 12/02/17 11:36 12/02/17 11:36 12/02/17 11:36 12/02/17 11:36 Oxygen Delivery Method Room Air Weight: 211 lb 10.3 oz Body Mass Index (BMI) 31.2 Intake and Output for Last 24 Hours 11/30/17 12/01/17 12/02/17 23:59 23:59 23:59 Intake Total 886 / 886 Balance 886 / 886 General: Awake, Alert, Oriented x 3 HEENT: PERRL, EOMI, Sclera Non Icteric Neck: Supple, Good ROM, No Lymph Node Enlargement Lungs: Expiratory Wheezes-Stone Cardiovascular: Regular Rhythm, Normal S1, Normal S2, No Murmurs, No Rubs, No Gallops Vascular: No Carotid Bruits, Normal Femoral Pulses, Normal Radial Pulses, Normal Dorsalis Pedal Pulse, Normal Posterior Tibial Pulses Abdomen: Bowel Sounds Present, Soft, Non Tender, No HSM, No Organomegaly Extremities: No Cyanosis, No Clubbing, No edema Neurological: No Focal Motor or Sensory Deficit 12/02/17 07:15: Troponin I 0.02 12/02/17 10:00: Troponin I 0.028 Rhythm: EKG: As above ECHO: Pending Stress Test: Pending Cardiac Cath: PCI: CT Surgery: Holter monitor: EPS: PPM: CXR: Chest CT Scan: Assessment/Plan 1. Ischemic cardiomyopathy: The patient has had dietary and fluid noncompliance going on now for many weeks, and presents with acute shortness of breath which is similar to his anginal equivalent that he had recently requiring high risk angioplasty of the vein graft to the obtuse marginal. Patient has known severe multivessel coronary disease, and severe graft disease as well. He has reportedly maintain his medical treatment, but has had increased abdominal girth which may prohibit absorption of his medications. Patient has audible wheezing bilaterally upon expiration which may be due to cardiac asthma versus his COPD which is known. Recommend IV diuretic therapy in the form of Lasix 40 mg IV twice daily, and obtain a 2D echo with Doppler. His chest x-ray shows minimal pulmonary edema, and no evidence of pleural effusions. In addition I would recommend a Lexiscan/MPI to determine whether he has any areas of ischemia that may benefit from repeat catheterization given his multitude of previous stents, and chronic renal insufficiency. If the patient has a large area of lateral ischemia, consistent with his previous angioplasty site, may require repeat catheterization and perhaps repeat angioplasty of that area. As it appears it may be the last remaining coronary, he may not be a candidate for intervention here [facility] should that be necessary. In addition I recommend a 1500 cc fluid restriction. 2. Dietary indiscretion: I had a long and thorough discussion relating the patient's ischemic cardiomyopathy with respect to his dietary intake and chronic renal insufficiency. I told him that he should not consume any more pickles, to say nothing of the pickle juice that he drinks as well. I have explained to him the relationship between the fluid intake, salt intake, and the need to get rid of it with diuretic therapy. Patient has voiced understanding, and hopefully will comply. 3. Hyperlipidemia: Recommend obtaining a fasting lipid profile. His LDL should be less than 70. Continue Zocor. 4. Thank you very much for the opportunity to participate in the cardiac care of your patient. Consultation time took place between 1 PM and 1:30 PM. Code Visit Inpatient E&M: 81393 Init Hosp L2
--- NOTE | 2017-12-02 14:54 | PCM.PROGNOTE ---
<Taras Burden - Last Filed: 12/02/17 14:54> Patient Problems: Active and Suspected Problems (Last Reviewed 08/25/17 @ 12:41 by Tara Baxter) COPD exacerbation (Acute) Chest pain (Acute) JILLIAN (acute kidney injury) (Acute) Subjective: Pt seen this AM sitting upright side of bed clutching chest, cough, very red in face and stating he was having severe BL anterior chest pain radiating across the front of his chest. He has had no improvement in SOB/wheeziness/ or CP since admission. he has had multiple admission in the past 6 months. He had a stress test last year that was negative. - Physical Exam General: Alert, Oriented x3, Cooperative, - - face very red HEENT: Atraumatic, PERRLA, EOMI, Normocephalic Neck: Supple, No JVD, Negative Carotid Bruits Lungs: Wheezes - BL expiratory Cardiovascular: Regular rate, No murmurs, - - + pimentel sign Abdomen: Bowel Sounds Present, Soft, Non Tender Extremities: No edema, Capillary Refill Less than 3 Seconds Skin: No rashes, No breakdown Musculoskeletal: No Tenderness to Palpation of Joints or Extremities Neurological: Cranial nerves II-XII grossly intact Psych/Mental Status: Normal Affect, Appropriate, Alert and oriented to time, place, person, mood and affect Vital Signs Temp Pulse Resp BP Pulse Ox 98.4 F 99 18 119/59 L 94 12/02/17 11:36 12/02/17 11:36 12/02/17 11:36 12/02/17 11:36 12/02/17 11:36 Oxygen Delivery Method Room Air Weight: 96 kg Body Mass Index (BMI) 31.2 Intake and Output for Last 24 Hours 11/30/17 12/01/17 12/02/17 23:59 23:59 23:59 Intake Total 886 / 886 Balance 886 / 886 Laboratory Tests Past 24 Hrs 12/02/17 12/02/17 07:15 10:00 Troponin I 0.02 0.028 POC Glucose 12/02/17 12/02/17 11:40 06:59 POC Glucose 289 H 158 H Medical Necessity - Tobacco Use Smoking Status: Former smoker Tobacco Use: Non-smoker Assessment/Plan Active and Suspected Problems (Last Reviewed 08/25/17 @ 12:41 by Tara Baxter) COPD exacerbation (Acute) Chest pain (Acute) JILLIAN (acute kidney injury) (Acute) 1. Chest pain / SOB / underlying CAD with prior CABG/PCI - possibly 2/2 acute systolic congestive heart failure exacerbation complicated by hx of ischemic cardiomyopathy-increased SOB, wheezing, chest pain. Pulmonology and Cardiology consulted. Pulmonology does not feel that this necessarily represents worsening of his COPD. He has end expiratory wheezing. He will remain on prednisone and duonebs. The patient has had a large salt intake over the past week and has severe dietary noncompliance which cardiology discussed with him thoroughly. They have placed him on Lasix. Will discontinue fluids. Monitor strict I's and O's. 1500 mg salt daily restriction. Repeat echo is pending. He may undergo repeat stress test. -continue BB, statin, isosorbide, plavix, asa -troponin neg -BNP elevated -Mag normal -Prior EF 25% -Has AICD 2. ? Acute COPD exacerbation - contineu steroids and aerosols. IS. 3. DNt2 with obesity - dietary restrictions. Hold orals. SSI. 4. HLD - on statin, DC fenofibrate for now. 5. JILLIAN on CKDIII -suspect secondary to dietary noncompliance and fluid overload. Elevated Creatinine, will monitor closely with addition of lasix therapy. 6. Tobacco abuse - patch 7. GERD - PPI DVT ppx: Heparin DC planning: pending further workup and response to therapy. Minimal improvement at this point. This patient was seen by Taras Burden PA-C under the supervision of Doctor Chelsey. <Mgiuel Barbosa - Last Filed: 12/02/17 16:14> - Physical Exam Vital Signs Temp Pulse Resp BP Pulse Ox 98.4 F 99 18 119/59 L 94 12/02/17 11:36 12/02/17 11:36 12/02/17 11:36 12/02/17 11:36 12/02/17 11:36 Oxygen Delivery Method Room Air Weight: 96 kg Body Mass Index (BMI) 31.2 Intake and Output for Last 24 Hours 11/30/17 12/01/17 12/02/17 23:59 23:59 23:59 Intake Total 886 / 886 Balance 886 / 886 Laboratory Tests Past 24 Hrs 05/09/18 05/09/18 07:15 10:00 Troponin I 0.02 0.028 POC Glucose 12/02/17 12/02/17 11:40 06:59 POC Glucose 289 H 158 H Assessment/Plan This patient was seen in conjunction with Tarsa LINDSAY. I have independently interviewed and examined the patient and reviewed pertinent historical, laboratory, and other data. Please refer to Taras LINDSAY note for details of this patient's presentation, findings, and recommendations. I have reviewed Taras LINDSAY note and concur with documented findings. In brief, patient is a 7-year-old gentleman with known history of CAD who presents with progressive shortness of breath as well as left shoulder pain Physical Examination: GENERAL: cooperative HEENT: Clear conjunctiva, NECK; supple, normal thyroid, CHEST: Diminished to auscultation bilaterally, HEART: Regular S1 S2, ABDOMEN: soft, normoactive bowel sounds, RECTAL: deferred EXTREMITIES: No clubbing, no cyanosis. PAROLE DIRECTOR: Awake, no lateralizing signs Assessment: 1. Chest pain in a patient with underlying known CAD 2. Ischemic cardiomyopathy 3. Acute kidney injury 4. COPD with mild exacerbation 5. Diabetes mellitus type II 6. Dyslipidemia 7. Obesity with BMI of 31.3 8. Tobacco dependence. 9. GERD 10. DVT prophylaxis SC Heparin Recommendations: 1. I have discussed the results of my overview and impressions with the patient 2. Options for management were reviewed Code Visit Inpatient E&M: 69841 Subs Hosp L3
[2017-12-02] MEDS: Furosemide 40 MG/4 ML Vial IV (16:02)
[2017-12-02] MEDS: 0.9% NaCl Peripheral Flush Adult/Peds IV ×2 (16:02→21:04)
[2017-12-02 16:51] LABS: Bedside Glucose 167 mg/dL (70-110)
[2017-12-02 17:33] LABS: Amphetamine Urine VISTA NEGATIVE (<1000 ng/mL); Barbiturate Urine VISTA NEGATIVE (< 200 ng/mL); Benzodiazepine Urine VISTA NEGATIVE (< 200 ng/mL); Cocaine Urine VISTA NEGATIVE (< 300 ng/mL); Ecstacy Urine VISTA NEGATIVE (< 500 ng/mL); Methadone Urine VISTA NEGATIVE (< 300 ng/mL); PCP Urine VISTA NEGATIVE (< 25 ng/mL); THC Urine VISTA NEGATIVE (< 50 ng/mL); Vista UDS pH Range 5
--- NOTE | 2017-12-02 17:42 | PCM.CONS.R ---
Consultation - Renal 12/02/17 PCP/ Referring MD: Requesting physician: Miguel Barbosa Primary care physician: Juan De La Vega Reason for Consultation:: JILLIAN on CKD stage 3 - History of Present Illness History of Present Illness: The patient is a 67 y/o M who was admitted for sudden onset of shortness of breath, cough with chest tightness last night. He felt fine all day yesterday until last night. He denied fever, chills. Denied jaw pain, arm pain but admit to pain on left sided rib cage worse with cough. He has a history of CAD s/p CABG, multiple stents, DM type 2, HTN, HPL, PAD. He has COPD with history of tobacco use. He was treated for COPD exacerbation in ED. He admits to sick contact with grandjung last week. He has systolic ischemic CMP s/p AICD placement. He has CKD stage 3 with baseline creatinine of 1.6 on 11/17/17. Creatinine on admit was 2.08. He has a history of chronic NSAID use with ibuprofen 800mg three times a day for diffuse arthritic pain. He is on percocet as well. He has BPH but denied hesitancy, urgency or dribbling. He was recently hospitalized on 11/15/17-11/16/17 for URI, JILLIAN and musculoskeletal chest discomfort. Creatinine was 2.7 improved to 1.7 prior to discharge. In ER, BNP was 111.3, rapid influenza negative, chest x-ray with calcified granuloma right lung base, fibrotic lung changes, 50 mm nodular shadow along the left heart border. - Allergies Allergies: Allergies chlorpromazine HCl [From Thorazine] Allergy (Severe, Verified 12/02/17 04:08) Hives PER PATIENT tramadol HCl [From Ultram] Allergy (Severe, Verified 12/02/17 04:08) Hives PER PATIENT codeine Allergy (Intermediate, Verified 12/02/17 04:08) Hives atorvastatin Adverse Reaction (Intermediate, Verified 12/02/17 04:08) Other LEG PAIN/CRAMPS naproxen Adverse Reaction (Verified 12/02/17 04:08) Upset Stomach - Current Medications Current Medications: Current Medications Acetaminophen (Tylenol) 650 mg PO Q6H PRN PRN PRN Reason: Mild Pain (scale 0-3)/T>100.7 Al Hydroxide/Mg Hydroxide (Mylanta Ii) 30 ml PO Q6H PRN PRN PRN Reason: Gastric burning Albuterol Sulfate (Ventolin Aerosols) 2.5 mg INHALATION Q2H PRN PRN PRN Reason: SHORTNESS OF BREATH Albuterol/Ipratropium (Duoneb) 3 ml INHALATION Q4H.RT [facility] Last Admin: 12/02/17 14:25 Dose: 3 ml Allopurinol (Zyloprim) 300 mg PO DAILY [facility] Last Admin: 12/02/17 09:06 Dose: 300 mg Aspirin (Aspirin) 325 mg PO DAILY@0800 [facility] Last Admin: 12/02/17 09:06 Dose: 325 mg Clopidogrel Bisulfate (Plavix) 75 mg PO DAILY [facility] Last Admin: 12/02/17 09:06 Dose: 75 mg Dextrose (D50w Syringe) 0 gm IV X1 PRN; Protocol PRN Reason: Hypoglycemia Furosemide (Lasix) 40 mg IV BID@1000,1800 [facility] Last Admin: 12/02/17 16:02 Dose: 40 mg Glucagon () 1 mg IM .X1 PRN PRN Reason: Hypoglycemia Guaifenesin (Mucinex) 1,200 mg PO BID [facility] Last Admin: 12/02/17 09:06 Dose: 1,200 mg Heparin Sodium (Porcine) (Heparin Na) 5,000 unit SC Q8 [facility] Last Admin: 12/02/17 14:12 Dose: 5,000 units Hydralazine HCl (Apresoline Iv) 10 mg IV Q4H PRN PRN PRN Reason: SBP > 160 Sodium Chloride () 250 mls @ 15 mls/hr IV .[id number] PRN PRN Reason: SALINE FLUSH Insulin Aspart (Novolog Flexpen (Bkc)) 0 units SC ACHS [facility] PRN Reason: Protocol Last Admin: 12/02/17 16:40 Dose: 167 unit Isosorbide Mononitrate (Imdur) 30 mg PO DAILY [facility] Last Admin: 12/02/17 09:06 Dose: 30 mg Magnesium Hydroxide (Milk Of Magnesia) 30 ml PO DAILY PRN PRN Reason: Constipation Metoprolol Succinate (Toprol Xl (Beta Sina)) 100 mg PO DAILY [facility] Last Admin: 12/02/17 09:06 Dose: 100 mg Morphine Sulfate () 2 - 4 mg IV Q3H PRN PRN PRN Reason: Severe Pain (pain scale 6-10) Last Admin: 12/02/17 14:19 Dose: 4 mg Morphine Sulfate () 1 - 2 mg IV Q4H PRN PRN PRN Reason: Moderate Pain (pain scale 4-5) Nicotine (Nicoderm Cq (Pbkc)) 14 mg TRANSDERM. DAILY [facility] Last Admin: 12/02/17 09:06 Dose: 14 mg Ondansetron HCl (Zofran) 4 mg IV Q8H PRN PRN PRN Reason: NAUSEA Oxycodone HCl (Oxyir) 5 mg PO Q4H PRN PRN PRN Reason: Moderate Pain (pain scale 4-5) Pantoprazole Sodium (Protonix) 40 mg PO DAILY [facility] Last Admin: 12/02/17 09:06 Dose: 40 mg Prednisone () 40 mg PO DAILY@0800 [facility] Rosuvastatin Calcium (Crestor) 40 mg PO QHS [facility] Sodium Chloride () 5 - 30 ml IV UD PRN PRN Reason: SALINE FLUSH Last Admin: 12/02/17 16:02 Dose: 10 ml Temazepam (Restoril) 15 mg PO QHS PRN PRN PRN Reason: insomnia - Past Medical History Past Medical History (Chronic Problems): Chronic Problems (Last Reviewed 08/25/17 @ 12:41 by Tara Baxter) COPD (chronic obstructive pulmonary disease) (Chronic) Obesity (BMI 30.0-34.9) (Chronic) Nicotine dependence (Chronic) Chronic bronchitis (Chronic) Sciatica (Chronic) Gout (Chronic) Degenerative cervical disc (Chronic) Claudication (Chronic) Chronic back pain (Chronic) Presence of automatic implantable cardioverter-defibrillator (Chronic) Chronic renal failure, stage 3 (moderate) (Chronic) Chronic systolic (congestive) heart failure (Chronic) Stented coronary artery (Chronic ~12/2016) has had 7 stents as of 06/15/17 Ischemic cardiomyopathy (Chronic) 25% ejection fraction in November 2016 V-tach (Chronic) has an AICD Benign essential hypertension (Chronic) Gastroesophageal reflux disease (Chronic) Hyperlipidemia (Chronic) Type 2 diabetes mellitus (Chronic) Morbid obesity (Chronic) CAD (coronary artery disease) (Chronic) - Past Surgical History Surgical History: angioplasty - stents x10, coronary bypass surgery, - - AICD placement, back surgery x 2, hernia repair - Social History Smoking Status: Former smoker Alcohol: None Drugs: None - Family History Paternal Family History: Family History (Last Reviewed 08/25/17 @ 12:41 by Tara Baxter) Brother CAD (coronary artery disease) Myocardial infarction Sudden cardiac Mother Cancer Hypertension Father Cancer COPD (chronic obstructive pulmonary disease) History Items: Cancer, Heart Disease Maternal Family History: Family History (Last Reviewed 08/25/17 @ 12:41 by Tara Baxter) Brother CAD (coronary artery disease) Myocardial infarction Sudden cardiac Mother Cancer Hypertension Father Cancer COPD (chronic obstructive pulmonary disease) History Items: Cancer Review of Systems Constitutional: Denies: Anorexia, Chills, Fever, Weight Change Eyes: Denies: Blurred vision HEENT: Denies: Difficulty Hearing, Head Aches, Sore Throat Cardiovascular: Reports: Chest Pain. Denies: Edema, Syncope Respiratory: Reports: Cough, Pleuritic Pain - left sided rib pain, Shortness of Breath. Denies: Hemoptysis Gastrointestinal: Denies: Abdominal Pain, Constipation, Diarrhea, Nausea, Vomiting Genitourinary: Reports: Hesitancy, - - BPH. Denies: Dysuria, Frequency, Incontinence, Retention, Urgency Musculoskeletal: Reports: Back Pain, Joint stiffness, Neck Pain, - - hip pain, knee pain, - - cramps in legs Skin: Denies: Rash Neurological: Denies: Balance problems, Focal weakness, Tremor, Seizures Psychiatric: Denies: Anxiety, Depression Endocrine: Denies: Polydipsia, Polyuria Hematologic/ Lymphatic: Denies: Anemia, Hx of blood clot - Physical Exam General: Alert, Oriented x3, Cooperative, - - coughing with chest wall pain HEENT: PERRLA, EOMI Oral: Dry Mucosa Neck: Supple, No JVD Lungs: Clear to auscultation Cardiovascular: Regular rate, - - no carotid bruit Abdomen: Bowel Sounds Present, Soft, Non Tender, Non-Distended Extremities: No edema, Diminished Peripheral Pulses, - - audible femoral bruit bilat Lymphatic: No Cervical, Supraclavicular, or Inguinal Adenopathy Neurological: Cranial nerves II-XII grossly intact Psych/Mental Status: Normal Affect, Appropriate, Alert and oriented to time, place, person, mood and affect Vital Signs Temp Pulse Resp BP Pulse Ox 98.9 F 93 20 H 122/68 H 94 12/02/17 16:20 12/02/17 16:20 12/02/17 16:20 12/02/17 16:20 12/02/17 16:20 Oxygen Flow Rate (L/min) [ 0 AMBULATING on Room Air] Oxygen Delivery Method Room Air Weight: 96 kg Body Mass Index (BMI) 31.2 Intake and Output for Last 24 Hours 11/30/17 12/01/17 12/02/17 23:59 23:59 23:59 Intake Total 886 / 886 Balance 886 / 886 Laboratory Tests Past 24 Hrs 12/02/17 12/02/17 12/02/17 07:15 10:00 16:35 Troponin I 0.02 0.028 Urine Opiates Screen POSITIVE H Urine Methadone Screen NEGATIVE Ur Barbiturates Screen NEGATIVE Ur Phencyclidine Scrn NEGATIVE Ur Amphetamines Screen NEGATIVE U Methamphetamin-MDMA NEGATIVE U Benzodiazepines Scrn NEGATIVE Urine Cocaine Screen NEGATIVE U Cannabinoids Screen NEGATIVE Ur Drug Screen Comment POC Glucose 12/02/17 12/02/17 12/02/17 16:32 11:40 06:59 POC Glucose 167 H 289 H 158 H Clinical Impression(s) from Imaging Studies Chest X-Ray 12/02/17 04:01 IMPRESSION: Pacemaker leads are in proper position. There is a calcified granuloma the RIGHT lung base. There are fibrotic changes at the lung bases. There is a 15 mm nodular shadow along the LEFT heart border. Pulmonary nodule not excluded. There is NO pleural effusion or pneumothorax. Normal size heart. There has been open heart surgery. Electronically Signed: Serge Motley MD at 4:55 EDT , Service support , Assessment/Plan 1. Acute on CKD stage 3. Creatinine 2.08 with baseline at 1.6 likely due to NSAID use, ibuprofen. Advised to avoid NSAIDs. May have underlying arterionephrosclerosis. Check renal US. UA without protein from September 2017. 2. CAD s/p CABG, Stents, SC, ischemic cmp. Cardiology consulted. Stress test possible heart cath. Discussed risk of contrast nephropathy if requires heart cath. 3. Acute dyspnea, cough with chest pain. BNP unremarkable. Flu, resp panel negative. Possible COPD exacerbation vs cardiac event 4. DM2 A1C 6.5 on 11/15 5. HTN stable 6. COPD exacerbation. 7. PAD with claudication
--- NOTE | 2017-12-02 17:52 | CON.PCM_ITS ---
Consultation - Renal 12/02/17 PCP/ Referring MD: Requesting physician: Miguel Barbosa Primary care physician: Juan De La Vega Reason for Consultation:: JILLIAN on CKD stage 3 - History of Present Illness History of Present Illness: The patient is a 67 y/o M who was admitted for sudden onset of shortness of breath, cough with chest tightness last night. He felt fine all day yesterday until last night. He denied fever, chills. Denied jaw pain, arm pain but admit to pain on left sided rib cage worse with cough. He has a history of CAD s/p CABG, multiple stents, DM type 2, HTN, HPL, PAD. He has COPD with history of tobacco use. He was treated for COPD exacerbation in ED. He admits to sick contact with grandjung last week. He has systolic ischemic CMP s/p AICD placement. He has CKD stage 3 with baseline creatinine of 1.6 on 11/17/17. Creatinine on admit was 2.08. He has a history of chronic NSAID use with ibuprofen 800mg three times a day for diffuse arthritic pain. He is on percocet as well. He has BPH but denied hesitancy, urgency or dribbling. He was recently hospitalized on 11/15/17-11/16/17 for URI, JILLIAN and musculoskeletal chest discomfort. Creatinine was 2.7 improved to 1.7 prior to discharge. In ER, BNP was 111.3, rapid influenza negative, chest x- ray with calcified granuloma right lung base, fibrotic lung changes, 50 mm nodular shadow along the left heart border. - Allergies Allergies: Allergies chlorpromazine HCl [From Thorazine] Allergy (Severe, Verified 12/02/17 04:08) Hives PER PATIENT tramadol HCl [From Ultram] Allergy (Severe, Verified 12/02/17 04:08) Hives PER PATIENT codeine Allergy (Intermediate, Verified 12/02/17 04:08) Hives atorvastatin Adverse Reaction (Intermediate, Verified 12/02/17 04:08) Other LEG PAIN/CRAMPS naproxen Adverse Reaction (Verified 12/02/17 04:08) Upset Stomach - Current Medications Current Medications: Current Medications Acetaminophen (Tylenol) 650 mg PO Q6H PRN PRN PRN Reason: Mild Pain (scale 0-3)/T>100.7 Al Hydroxide/Mg Hydroxide (Mylanta Ii) 30 ml PO Q6H PRN PRN PRN Reason: Gastric burning Albuterol Sulfate (Ventolin Aerosols) 2.5 mg INHALATION Q2H PRN PRN PRN Reason: SHORTNESS OF BREATH Albuterol/Ipratropium (Duoneb) 3 ml INHALATION Q4H.RT [facility] Last Admin: 12/02/17 14:25 Dose: 3 ml Allopurinol (Zyloprim) 300 mg PO DAILY [facility] Last Admin: 12/02/17 09:06 Dose: 300 mg Aspirin (Aspirin) 325 mg PO DAILY@0800 [facility] Last Admin: 12/02/17 09:06 Dose: 325 mg Clopidogrel Bisulfate (Plavix) 75 mg PO DAILY [facility] Last Admin: 12/02/17 09:06 Dose: 75 mg Dextrose (D50w Syringe) 0 gm IV X1 PRN; Protocol PRN Reason: Hypoglycemia Furosemide (Lasix) 40 mg IV BID@1000,1800 [facility] Last Admin: 12/02/17 16:02 Dose: 40 mg Glucagon () 1 mg IM .X1 PRN PRN Reason: Hypoglycemia Guaifenesin (Mucinex) 1,200 mg PO BID [facility] Last Admin: 12/02/17 09:06 Dose: 1,200 mg Heparin Sodium (Porcine) (Heparin Na) 5,000 unit SC Q8 [facility] Last Admin: 12/02/17 14:12 Dose: 5,000 units Hydralazine HCl (Apresoline Iv) 10 mg IV Q4H PRN PRN PRN Reason: SBP > 160 Sodium Chloride () 250 mls @ 15 mls/hr IV .[id number] PRN PRN Reason: SALINE FLUSH Insulin Aspart (Novolog Flexpen (Bkc)) 0 units SC ACHS [facility] PRN Reason: Protocol Last Admin: 12/02/17 16:40 Dose: 167 unit Isosorbide Mononitrate (Imdur) 30 mg PO DAILY [facility] Last Admin: 12/02/17 09:06 Dose: 30 mg Magnesium Hydroxide (Milk Of Magnesia) 30 ml PO DAILY PRN PRN Reason: Constipation Metoprolol Succinate (Toprol Xl (Beta Sina)) 100 mg PO DAILY [facility] Last Admin: 12/02/17 09:06 Dose: 100 mg Morphine Sulfate () 2 - 4 mg IV Q3H PRN PRN PRN Reason: Severe Pain (pain scale 6-10) Last Admin: 12/02/17 14:19 Dose: 4 mg Morphine Sulfate () 1 - 2 mg IV Q4H PRN PRN PRN Reason: Moderate Pain (pain scale 4-5) Nicotine (Nicoderm Cq (Pbkc)) 14 mg TRANSDERM. DAILY [facility] Last Admin: 12/02/17 09:06 Dose: 14 mg Ondansetron HCl (Zofran) 4 mg IV Q8H PRN PRN PRN Reason: NAUSEA Oxycodone HCl (Oxyir) 5 mg PO Q4H PRN PRN PRN Reason: Moderate Pain (pain scale 4-5) Pantoprazole Sodium (Protonix) 40 mg PO DAILY [facility] Last Admin: 12/02/17 09:06 Dose: 40 mg Prednisone () 40 mg PO DAILY@0800 [facility] Rosuvastatin Calcium (Crestor) 40 mg PO QHS [facility] Sodium Chloride () 5 - 30 ml IV UD PRN PRN Reason: SALINE FLUSH Last Admin: 12/02/17 16:02 Dose: 10 ml Temazepam (Restoril) 15 mg PO QHS PRN PRN PRN Reason: insomnia - Past Medical History Past Medical History (Chronic Problems): Chronic Problems (Last Reviewed 08/25/17 @ 12:41 by Tara Baxter) COPD (chronic obstructive pulmonary disease) (Chronic) Obesity (BMI 30.0-34.9) (Chronic) Nicotine dependence (Chronic) Chronic bronchitis (Chronic) Sciatica (Chronic) Gout (Chronic) Degenerative cervical disc (Chronic) Claudication (Chronic) Chronic back pain (Chronic) Presence of automatic implantable cardioverter-defibrillator (Chronic) Chronic renal failure, stage 3 (moderate) (Chronic) Chronic systolic (congestive) heart failure (Chronic) Stented coronary artery (Chronic ~12/2016) has had 7 stents as of 06/15/17 Ischemic cardiomyopathy (Chronic) 25% ejection fraction in November 2016 V-tach (Chronic) has an AICD Benign essential hypertension (Chronic) Gastroesophageal reflux disease (Chronic) Hyperlipidemia (Chronic) Type 2 diabetes mellitus (Chronic) Morbid obesity (Chronic) CAD (coronary artery disease) (Chronic) - Past Surgical History Surgical History: angioplasty - stents x10, coronary bypass surgery, - - AICD placement, back surgery x 2, hernia repair - Social History Smoking Status: Former smoker Alcohol: None Drugs: None - Family History Paternal Family History: Family History (Last Reviewed 08/25/17 @ 12:41 by Tara Baxter) Brother CAD (coronary artery disease) Myocardial infarction Sudden cardiac Mother Cancer Hypertension Father Cancer COPD (chronic obstructive pulmonary disease) History Items: Cancer, Heart Disease Maternal Family History: Family History (Last Reviewed 08/25/17 @ 12:41 by Tara Baxter) Brother CAD (coronary artery disease) Myocardial infarction Sudden cardiac Mother Cancer Hypertension Father Cancer COPD (chronic obstructive pulmonary disease) History Items: Cancer Review of Systems Constitutional: Denies: Anorexia, Chills, Fever, Weight Change Eyes: Denies: Blurred vision HEENT: Denies: Difficulty Hearing, Head Aches, Sore Throat Cardiovascular: Reports: Chest Pain. Denies: Edema, Syncope Respiratory: Reports: Cough, Pleuritic Pain - left sided rib pain, Shortness of Breath. Denies: Hemoptysis Gastrointestinal: Denies: Abdominal Pain, Constipation, Diarrhea, Nausea, Vomiting Genitourinary: Reports: Hesitancy, - - BPH. Denies: Dysuria, Frequency, Incontinence, Retention, Urgency Musculoskeletal: Reports: Back Pain, Joint stiffness, Neck Pain, - - hip pain, knee pain, - - cramps in legs Skin: Denies: Rash Neurological: Denies: Balance problems, Focal weakness, Tremor, Seizures Psychiatric: Denies: Anxiety, Depression Endocrine: Denies: Polydipsia, Polyuria Hematologic/ Lymphatic: Denies: Anemia, Hx of blood clot - Physical Exam General: Alert, Oriented x3, Cooperative, - - coughing with chest wall pain HEENT: PERRLA, EOMI Oral: Dry Mucosa Neck: Supple, No JVD Lungs: Clear to auscultation Cardiovascular: Regular rate, - - no carotid bruit Abdomen: Bowel Sounds Present, Soft, Non Tender, Non-Distended Extremities: No edema, Diminished Peripheral Pulses, - - audible femoral bruit bilat Lymphatic: No Cervical, Supraclavicular, or Inguinal Adenopathy Neurological: Cranial nerves II-XII grossly intact Psych/Mental Status: Normal Affect, Appropriate, Alert and oriented to time, place, person, mood and affect Vital Signs Temp Pulse Resp BP Pulse Ox 98.9 F 93 20 H 122/68 H 94 12/02/17 16:20 12/02/17 16:20 12/02/17 16:20 12/02/17 16:20 12/02/17 16:20 Oxygen Flow Rate (L/min) [ 0 AMBULATING on Room Air] Oxygen Delivery Method Room Air Weight: 96 kg Body Mass Index (BMI) 31.2 Intake and Output for Last 24 Hours 11/30/17 12/01/17 12/02/17 23:59 23:59 23:59 Intake Total 886 / 886 Balance 886 / 886 Laboratory Tests Past 24 Hrs 12/02/17 12/02/17 12/02/17 07:15 10:00 16:35 Troponin I 0.02 0.028 Urine Opiates Screen POSITIVE H Urine Methadone Screen NEGATIVE Ur Barbiturates Screen NEGATIVE Ur Phencyclidine Scrn NEGATIVE Ur Amphetamines Screen NEGATIVE U Methamphetamin-MDMA NEGATIVE U Benzodiazepines Scrn NEGATIVE Urine Cocaine Screen NEGATIVE U Cannabinoids Screen NEGATIVE Ur Drug Screen Comment POC Glucose 12/02/17 12/02/17 12/02/17 16:32 11:40 06:59 POC Glucose 167 H 289 H 158 H Clinical Impression(s) from Imaging Studies Chest X-Ray 12/02/17 04:01 IMPRESSION: Pacemaker leads are in proper position. There is a calcified granuloma the RIGHT lung base. There are fibrotic changes at the lung bases. There is a 15 mm nodular shadow along the LEFT heart border. Pulmonary nodule not excluded. There is NO pleural effusion or pneumothorax. Normal size heart. There has been open heart surgery. Electronically Signed: Serge Motley MD at 4:55 EDT , Service support , Assessment/Plan 1. Acute on CKD stage 3. Creatinine 2.08 with baseline at 1.6 likely due to NSAID use, ibuprofen. Advised to avoid NSAIDs. May have underlying arterionephrosclerosis. Check renal US. UA without protein from September 2017. 2. CAD s/p CABG, Stents, CT, ischemic cmp. Cardiology consulted. Stress test possible heart cath. Discussed risk of contrast nephropathy if requires heart cath. 3. Acute dyspnea, cough with chest pain. BNP unremarkable. Flu, resp panel negative. Possible COPD exacerbation vs cardiac event 4. DM2 A1C 6.5 on 11/15 5. HTN stable 6. COPD exacerbation. 7. PAD with claudication
[2017-12-02] MEDS: ROSUVASTATIN CALCIUM 40 MG TABLET PO (21:04)
[2017-12-02] MEDS: Morphine 4 MG/ML Syringe IV (21:05)
[2017-12-02 21:56] LABS: Bedside Glucose 179 mg/dL (70-110)
[2017-12-03] VITALS (9 sets, daily range): BP systolic 105–107; BP diastolic 63–89; PULSE 75–95; RESP 16–20; TEMP 36.3–36.6; O2SAT 92–96
[2017-12-03] MEDS: Morphine 4 MG/ML Syringe IV ×2 (01:38→05:37)
[2017-12-03] MEDS: 0.9% NaCl Peripheral Flush Adult/Peds IV ×4 (01:40→11:14)
[2017-12-03] MEDS: Ondansetron 4 MG/2 ML Vial IV ×2 (01:43→11:59)
[2017-12-03 05:36] LABS: Mean Corp Hgb Conc 33.3 g/gl (32-36); Mean Corpuscular Hgb 30.2 pg (27.0-32.0); Mean Corpuscular Volume 90.7 fL (80-94); Mean Platelet Vol. 10.1 fl (6.2-12.0); Platelet Count 237 K/mm3 (150-450); RBC Distribution Width CV 14.4 % (11.6-14.6); RBC Distribution Width SD 47.1 fl (35.1-43.9); Red Blood Count 3.97 M/mm3 (4.6-6.2); White Blood Count 11.4 K/mm3 (4.4-11.0)
[2017-12-03] MEDS: Aspirin 325 MG Tablet PO (05:37)
[2017-12-03] MEDS: Clopidogrel Bisulfate 75 MG Tablet PO (05:37)
[2017-12-03 05:40] LABS: Prothrombin Time (Protime)PT. 12.8 SECONDS (11.7-14.9)
[2017-12-03 05:41] LABS: Partial Thromboplast Time 29.7 Seconds (24.1-36.2)
[2017-12-03 05:43] LABS: Scan Indicated on CBC? Y/N NO
[2017-12-03 05:46] LABS: Bedside Glucose 179 mg/dL (70-110)
[2017-12-03 05:48] LABS: Anion Gap 9 (5-15); BUN 37 mg/dL (7-18); BUN/Creat Ratio 23.7 RATIO (10-20); Calcium,Total 8.9 mg/dL (8.5-10.1); Chloride 103 mmol/L (98-107); Creatinine, Serum 1.56 mg/dL (0.70-1.30); EST Glomerular Filtration Rate 48 mL/min (>60); Est Glom Filt Rate - Afr Amer 57 mL/min (>60); Estimated Creatinine Clearance 46.58 ml/min; Glucose 170 mg/dL (74-106); Potassium 3.9 mmol/L (3.5-5.1); Sodium Level 138 mmol/L (136-145)
--- NOTE | 2017-12-03 05:55 | EKG12_ITS ---
Test Reason : AM EKG Blood Pressure : / mmHG Vent. Rate : 083 BPM Atrial Rate : 083 BPM P-R Int : 152 ms QRS Dur : 116 ms QT Int : 402 ms P-R-T Axes : 063 035 145 degrees QTc Int : 472 ms Normal sinus rhythm Incomplete left bundle branch block ST & T wave abnormality, consider lateral ischemia Prolonged QT Abnormal ECG Confirmed by BERYL LUNDBERG, MICHELLE ([id number]), content editor LANDRY YARBROUGH ([id number] on 12/10/2017 1:11:01 PM Referred By: RUBI Confirmed By:MICHELLE CORDOBA MD
--- NOTE | 2017-12-03 07:10 | PN.CARD_ITS ---
Subjectve: Patient seen and evaluated this morning appears to be doing well is breathing much better. Objective: Vital Signs Temp Pulse Resp BP Pulse Ox 97.8 F 80 20 H 107/63 94 12/03/17 03:04 12/03/17 03:21 12/03/17 03:21 12/03/17 03:04 12/03/17 03:23 Oxygen Flow Rate (L/min) [ 0 AMBULATING on Room Air] Oxygen Delivery Method Room Air Weight: 211 lb 10.3 oz Body Mass Index (BMI) 31.2 Intake and Output for Last 24 Hours 12/01/17 12/02/17 12/03/17 23:59 23:59 23:59 Intake Total 1606 / 1606 Output Total 2925 / 2925 400 / 400 Balance -1319 / -1319 -400 / -400 General: Awake, Alert, Oriented x 3 HEENT: PERRL, EOMI, Sclera Non Icteric Neck: Supple, Good ROM, No Lymph Node Enlargement Lungs: Clear to auscultation Cardiovascular: Regular Rhythm, Normal S1, Normal S2, No Murmurs, No Rubs, No Gallops Vascular: No Carotid Bruits, Normal Femoral Pulses, Normal Radial Pulses, Normal Dorsalis Pedal Pulse, Normal Posterior Tibial Pulses Abdomen: Bowel Sounds Present, Soft, Non Tender, No HSM, No Organomegaly Extremities: No Cyanosis, No Clubbing, No edema Neurological: No Focal Motor or Sensory Deficit 12/02/17 07:15: Troponin I 0.02 12/02/17 10:00: Troponin I 0.028 12/03/17 05:00: WBC 11.4 H, RBC 3.97 L, Hgb 12.0 L, Hct 36.0 L, MCV 90.7, MCH 30.2, MCHC 33.3, RDW 14.4, RDW Differential 47.1 H, Plt Count 237, MPV 10.1 12/03/17 05:00: Sodium 138, Potassium 3.9, Chloride 103, Carbon Dioxide 26.0, Anion Gap 9, BUN 37 H, Creatinine 1.56 H, Est GFR (MDRD) Af Amer 57 L, Est GFR ( MDRD) Non-Af 48 L, BUN/Creatinine Ratio 23.7 H, Glucose 170 H, Calcium 8.9 12/03/17 05:00: PT 12.8, INR 1.0, APTT 29.7 Rhythm: EKG: Normal sinus rhythm. Medical Necessity - Tobacco Use Smoking Status: Former smoker Tobacco Use: Non-smoker Assessment/Plan 1. Chest pain with abnormal cardiac enzymes. The patient is scheduled to undergo a myocardial perfusion scan this morning. His previous scan had demonstrated extensive anterior anterolateral and apical infarct as well as inferior infarct. The lateral wall was well perfused. Depending on what his scan shows this morning further recommendations will be made. In the meantime he will be continued on his medical therapy. 2. Ischemic cardiomyopathy. He does have a history of ischemic cardiomyopathy and appears to have gone into mild congestive heart failure likely secondary to dietary indiscretion. He will be continued on his current medications as well as diuretics and be followed up as an outpatient. 3. Status post ICD implantation. His ICD is in place. There is no evidence that he has had any defibrillator firing. We will continue to monitor the above through the office. 4. Risk factor modification. He will continue with aggressive risk factor modification with lipid lowering medication to attempt to get his LDL less than 70. Thank you for allowing me to participate in the care of your patient. Please don't hesitate to call if any issues arise
--- NOTE | 2017-12-03 08:52 | PCM.PROGNOTE ---
Patient Problems: Active and Suspected Problems (Last Reviewed 08/25/17 @ 12:41 by Tara Baxter) COPD exacerbation (Acute) Chest pain (Acute) JILLIAN (acute kidney injury) (Acute) Subjective: The patient was seen and examined. He is sitting up at the bedside. Reports he is still having chest pain. His cough has improved. Denies sputum production. He underwent a stress test this morning and is waiting on the results. Objective: Recent lab and culture data reviewed. Respiratory viral panel was negative. Patient remains afebrile and hemodynamically stable. Echocardiogram 12/02 showed mildly dilated left ventricle with an estimated EF of 25%, stage I diastolic dysfunction, regional wall motion abnormalities, RVSP was not estimated secondary to technically difficult study. There is mild aortic and mitral valve stenosis. - Physical Exam General: Alert, Oriented x3, Cooperative, - - no conversational dyspnea HEENT: Atraumatic, Normocephalic Oral: Moist Mucosa Neck: Supple, Trachea Midline Lungs: No rhonchi, No wheeze, No rales, Diminished Cardiovascular: Regular rate, Regular Rhythm, Normal S1, Normal S2, No murmurs, No rub noted, No Gallop Abdomen: Bowel Sounds Present, Soft, Non Tender, Obese Extremities: No clubbing, No cyanosis, No edema Skin: - - no changes Musculoskeletal: Tenderness - to L scapular area, unchanged from previous assmt Lymphatic: No Cervical, Supraclavicular, or Inguinal Adenopathy Neurological: Neuro grossly intact Psych/Mental Status: Alert and oriented to time, place, person, mood and affect Vital Signs Temp Pulse Resp BP Pulse Ox 97.8 F 81 20 H 107/63 94 12/03/17 03:04 12/03/17 06:13 12/03/17 03:21 12/03/17 03:04 12/03/17 03:23 Oxygen Flow Rate (L/min) [ 0 AMBULATING on Room Air] Oxygen Delivery Method Room Air Weight: 211 lb 10.3 oz Body Mass Index (BMI) 31.2 Intake and Output for Last 24 Hours 12/01/17 12/02/17 12/03/17 23:59 23:59 23:59 Intake Total 1606 / 1606 Output Total 2925 / 2925 400 / 400 Balance -1319 / -1319 -400 / -400 Laboratory Tests Past 24 Hrs 12/02/17 12/02/17 12/03/17 10:00 16:35 05:00 WBC 11.4 H RBC 3.97 L Hgb 12.0 L Hct 36.0 L MCV 90.7 MCH 30.2 MCHC 33.3 RDW 14.4 RDW Differential 47.1 H Plt Count 237 MPV 10.1 PT INR APTT Sodium Potassium Chloride Carbon Dioxide Anion Gap BUN Creatinine Estim Creat Clear Calc Est GFR (MDRD) Af Amer Est GFR (MDRD) Non-Af BUN/Creatinine Ratio Glucose Calcium Troponin I 0.028 Urine Opiates Screen POSITIVE H Urine Methadone Screen NEGATIVE Ur Barbiturates Screen NEGATIVE Ur Phencyclidine Scrn NEGATIVE Ur Amphetamines Screen NEGATIVE U Methamphetamin-MDMA NEGATIVE U Benzodiazepines Scrn NEGATIVE Urine Cocaine Screen NEGATIVE U Cannabinoids Screen NEGATIVE Ur Drug Screen Comment 12/03/17 12/03/17 05:00 05:00 WBC RBC Hgb Hct MCV MCH MCHC RDW RDW Differential Plt Count MPV PT 12.8 INR 1.0 APTT 29.7 Sodium 138 Potassium 3.9 Chloride 103 Carbon Dioxide 26.0 Anion Gap 9 BUN 37 H Creatinine 1.56 H Estim Creat Clear Calc 46.58 Est GFR (MDRD) Af Amer 57 L Est GFR (MDRD) Non-Af 48 L BUN/Creatinine Ratio 23.7 H Glucose 170 H Calcium 8.9 Troponin I Urine Opiates Screen Urine Methadone Screen Ur Barbiturates Screen Ur Phencyclidine Scrn Ur Amphetamines Screen U Methamphetamin-MDMA U Benzodiazepines Scrn Urine Cocaine Screen U Cannabinoids Screen Ur Drug Screen Comment POC Glucose 12/03/17 12/02/17 12/02/17 05:41 20:58 16:32 POC Glucose 179 H 179 H 167 H 12/02/17 12/02/17 11:40 06:59 POC Glucose 289 H 158 H Medical Necessity - Tobacco Use Smoking Status: Former smoker Tobacco Use: Non-smoker Assessment/Plan Active and Suspected Problems (Last Reviewed 08/25/17 @ 12:41 by Tara Baxter) COPD exacerbation (Acute) Chest pain (Acute) JILLIAN (acute kidney injury) (Acute) RECOMMENDATIONS 1. Oxygen supplementation to keep saturations greater than 89%. 2. Encourage incentive spirometer 3. Increase activity as tolerated, mobilize 4. Continue aerosols, at discharge continue Anoro and PRN albuterol 5. Oral steroids for 5 day burst 6. Continue nicotine patches, mucolytic, diuresis, fluid restriction with education on CHF and ongoing smoking cessation 7. Use narcotics cautiously, patient likely has sleep disordered breathing/known apnea 8. Await stress test results, okay to discharge from pulmonary perspective pending testing 9. Ambulatory pulse oximetry prior to discharge 10. Follow-up in the pulmonary clinic in 2 weeks with REDUCTION PLANT SUPERVISOR IMPRESSIONS 1. Atypical chest pain/CAD/history of CHF Unclear etiology. Does not appear to be in an acute COPD exacerbation. Patient does have wheezing but it is with forced expiration only. No sputum production, cough and shortness of breath came on suddenly while sleeping, associated with chest pain. Suspect muscle strain with forceful coughing. Patient does also have significant cardiac history with prior CAD/CABG. Last known ejection fraction was 25%. No increased lower extremity edema or abdominal distention. BNP was mildly elevated. Potential etiology of shortness of breath is untreated sleep disordered breathing. Noncompliant with dietary restrictions. Patient has yet to be evaluated for ARIADNA, he has canceled his last 2 pulmonary appointments. Could also have pulmonary embolism, however unlikely. Patient had a lung VQ scan 11/16/[address] was in January 2017. We will switch steroids to oral, this may help with his pleuritic pain and back pain. Continue nicotine replacement therapy, patient advised this is not for long-term therapy. He has not smoked in 3 months. Cardiology following, awaiting stress test results. 2. COPD/shortness of breath PFTs in July 2017 show a mild obstructive ventilatory defect. Patient currently on Anoro and as needed albuterol MDI as well as nebulizers. He complains of ongoing shortness of breath intermittently at home, using his albuterol at least 4 times per day. Suspect has an element of anxiety that is contributory to his shortness of breath as his symptoms do not correlate with level of COPD. No significant changes in echocardiogram. Patient should follow-up in 2 weeks in the pulmonary clinic, at which time testing can be reviewed and we can pursue polysomnogram. If cardiac etiology ruled out, can discuss further plan of care for his shortness of breath. 3. JILLIAN/stage III CKD Improved. Follow labs. 4. Hypertension/hyperlipidemia/type II DM/chronic back pain with narcotic use/gout/obesity/suspected sleep apnea Complicates care, management, recovery, and prognosis. Continue medications per hospitalist recommendations. Patient takes narcotics daily, may have some medication seeking behaviors. Will run OARRS. Thank you for the opportunity to participate in this patient's care, please do not hesitate to contact us with any further questions or concerns. This note was generated with [employer] dictation software. It may contain incorrect words, spelling, and punctuation that were not noted in checking the note before signing.
--- NOTE | 2017-12-03 09:11 | PN_ITS ---
Patient Problems: Active and Suspected Problems (Last Reviewed 08/25/17 @ 12:41 by Tara Baxter) COPD exacerbation (Acute) Chest pain (Acute) JILLIAN (acute kidney injury) (Acute) Subjective: The patient was seen and examined. He is sitting up at the bedside. Reports he is still having chest pain. His cough has improved. Denies sputum production. He underwent a stress test this morning and is waiting on the results. Objective: Recent lab and culture data reviewed. Respiratory viral panel was negative. Patient remains afebrile and hemodynamically stable. Echocardiogram 12/02 showed mildly dilated left ventricle with an estimated EF of 25%, stage I diastolic dysfunction, regional wall motion abnormalities, RVSP was not estimated secondary to technically difficult study. There is mild aortic and mitral valve stenosis. - Physical Exam General: Alert, Oriented x3, Cooperative, - - no conversational dyspnea HEENT: Atraumatic, Normocephalic Oral: Moist Mucosa Neck: Supple, Trachea Midline Lungs: No rhonchi, No wheeze, No rales, Diminished Cardiovascular: Regular rate, Regular Rhythm, Normal S1, Normal S2, No murmurs, No rub noted, No Gallop Abdomen: Bowel Sounds Present, Soft, Non Tender, Obese Extremities: No clubbing, No cyanosis, No edema Skin: - - no changes Musculoskeletal: Tenderness - to L scapular area, unchanged from previous assmt Lymphatic: No Cervical, Supraclavicular, or Inguinal Adenopathy Neurological: Neuro grossly intact Psych/Mental Status: Alert and oriented to time, place, person, mood and affect Vital Signs Temp Pulse Resp BP Pulse Ox 97.8 F 81 20 H 107/63 94 12/03/17 03:04 12/03/17 06:13 12/03/17 03:21 12/03/17 03:04 12/03/17 03:23 Oxygen Flow Rate (L/min) [ 0 AMBULATING on Room Air] Oxygen Delivery Method Room Air Weight: 211 lb 10.3 oz Body Mass Index (BMI) 31.2 Intake and Output for Last 24 Hours 12/01/17 12/02/17 12/03/17 23:59 23:59 23:59 Intake Total 1606 / 1606 Output Total 2925 / 2925 400 / 400 Balance -1319 / -1319 -400 / -400 Laboratory Tests Past 24 Hrs 12/02/17 12/02/17 12/03/17 10:00 16:35 05:00 WBC 11.4 H RBC 3.97 L Hgb 12.0 L Hct 36.0 L MCV 90.7 MCH 30.2 MCHC 33.3 RDW 14.4 RDW Differential 47.1 H Plt Count 237 MPV 10.1 PT INR APTT Sodium Potassium Chloride Carbon Dioxide Anion Gap BUN Creatinine Estim Creat Clear Calc Est GFR (MDRD) Af Amer Est GFR (MDRD) Non-Af BUN/Creatinine Ratio Glucose Calcium Troponin I 0.028 Urine Opiates Screen POSITIVE H Urine Methadone Screen NEGATIVE Ur Barbiturates Screen NEGATIVE Ur Phencyclidine Scrn NEGATIVE Ur Amphetamines Screen NEGATIVE U Methamphetamin-MDMA NEGATIVE U Benzodiazepines Scrn NEGATIVE Urine Cocaine Screen NEGATIVE U Cannabinoids Screen NEGATIVE Ur Drug Screen Comment 12/03/17 12/03/17 05:00 05:00 WBC RBC Hgb Hct MCV MCH MCHC RDW RDW Differential Plt Count MPV PT 12.8 INR 1.0 APTT 29.7 Sodium 138 Potassium 3.9 Chloride 103 Carbon Dioxide 26.0 Anion Gap 9 BUN 37 H Creatinine 1.56 H Estim Creat Clear Calc 46.58 Est GFR (MDRD) Af Amer 57 L Est GFR (MDRD) Non-Af 48 L BUN/Creatinine Ratio 23.7 H Glucose 170 H Calcium 8.9 Troponin I Urine Opiates Screen Urine Methadone Screen Ur Barbiturates Screen Ur Phencyclidine Scrn Ur Amphetamines Screen U Methamphetamin-MDMA U Benzodiazepines Scrn Urine Cocaine Screen U Cannabinoids Screen Ur Drug Screen Comment POC Glucose 12/03/17 12/02/17 12/02/17 05:41 20:58 16:32 POC Glucose 179 H 179 H 167 H 12/02/17 12/02/17 11:40 06:59 POC Glucose 289 H 158 H Medical Necessity - Tobacco Use Smoking Status: Former smoker Tobacco Use: Non-smoker Assessment/Plan Active and Suspected Problems (Last Reviewed 08/25/17 @ 12:41 by Tara Baxter) COPD exacerbation (Acute) Chest pain (Acute) JILLIAN (acute kidney injury) (Acute) RECOMMENDATIONS 1. Oxygen supplementation to keep saturations greater than 89%. 2. Encourage incentive spirometer 3. Increase activity as tolerated, mobilize 4. Continue aerosols, at discharge continue Anoro and PRN albuterol 5. Oral steroids for 5 day burst 6. Continue nicotine patches, mucolytic, diuresis, fluid restriction with education on CHF and ongoing smoking cessation 7. Use narcotics cautiously, patient likely has sleep disordered breathing/ known apnea 8. Await stress test results, okay to discharge from pulmonary perspective pending testing 9. Ambulatory pulse oximetry prior to discharge 10. Follow-up in the pulmonary clinic in 2 weeks with SENIOR PROPERTY ACCOUNTANT IMPRESSIONS 1. Atypical chest pain/CAD/history of CHF Unclear etiology. Does not appear to be in an acute COPD exacerbation. Patient does have wheezing but it is with forced expiration only. No sputum production, cough and shortness of breath came on suddenly while sleeping, associated with chest pain. Suspect muscle strain with forceful coughing. Patient does also have significant cardiac history with prior CAD/CABG. Last known ejection fraction was 25%. No increased lower extremity edema or abdominal distention. BNP was mildly elevated. Potential etiology of shortness of breath is untreated sleep disordered breathing. Noncompliant with dietary restrictions. Patient has yet to be evaluated for ARIADNA, he has canceled his last 2 pulmonary appointments. Could also have pulmonary embolism, however unlikely. Patient had a lung VQ scan 11/16/[address] was in January 2017. We will switch steroids to oral, this may help with his pleuritic pain and back pain. Continue nicotine replacement therapy, patient advised this is not for long-term therapy. He has not smoked in 3 months. Cardiology following, awaiting stress test results. 2. COPD/shortness of breath PFTs in July 2017 show a mild obstructive ventilatory defect. Patient currently on Anoro and as needed albuterol MDI as well as nebulizers. He complains of ongoing shortness of breath intermittently at home, using his albuterol at least 4 times per day. Suspect has an element of anxiety that is contributory to his shortness of breath as his symptoms do not correlate with level of COPD. No significant changes in echocardiogram. Patient should follow -up in 2 weeks in the pulmonary clinic, at which time testing can be reviewed and we can pursue polysomnogram. If cardiac etiology ruled out, can discuss further plan of care for his shortness of breath. 3. JILLIAN/stage III CKD Improved. Follow labs. 4. Hypertension/hyperlipidemia/type II DM/chronic back pain with narcotic use/ gout/obesity/suspected sleep apnea Complicates care, management, recovery, and prognosis. Continue medications per hospitalist recommendations. Patient takes narcotics daily, may have some medication seeking behaviors. Will run OARRS. Thank you for the opportunity to participate in this patient's care, please do not hesitate to contact us with any further questions or concerns. This note was generated with [employer] dictation software. It may contain incorrect words, spelling, and punctuation that were not noted in checking the note before signing.
[2017-12-03] MEDS: guaiFENesin 1,200 MG Tablet 1200 MG PO (09:16)
[2017-12-03] MEDS: predniSONE 20 MG Tablet 40 MG PO (09:16)
[2017-12-03] MEDS: oxyCODONE 5 MG Tablet PO (09:16)
[2017-12-03] MEDS: Pantoprazole Sodium 40 MG Tablet PO (09:17)
[2017-12-03] MEDS: Allopurinol 300 MG Tablet PO (09:17)
[2017-12-03] MEDS: Isosorbide Mononitrate 30 MG Tablet PO (09:17)
--- NOTE | 2017-12-03 09:54 | STRESSREP ---
Stress Test Report Date: 12/03/2017 Procedure: Pharmacologic stress nuclear imaging study Indications: Chest pain; CAD; CT; PCI; CABG; ICD Consent: Per the patient Procedure: The patient underwent pharmacologic (Regadenoson) evaluation with a peak heart rate of 96 beats per minute (62 predicted maximal heart rate) and a peak blood pressure of 122/70 mmHg. The baseline ECG demonstrated normal sinus rhythm, poor R-wave progression, ST/T-wave abnormality. The peak pharmacologic ECG demonstrated somatic/motion artifact with no obvious ECG changes. There were no cardiac dysrhythmias pretest, during pharmacologic infusion, or recovery. There was no complaint of chest discomfort during pharmacologic infusion or recovery. The examination was discontinued secondary to completion of protocol. Impression: 1. Pharmacologic (Regadenoson) evaluation 2. Peak pharmacologic ECG with no obvious ECG changes. 3. No cardiac dysrhythmias pretest, during pharmacologic infusion, or recovery 4. Nuclear images pending Myocardial perfusion imaging study: Technique: The patient was injected with 14.4 millicuries of technetium 99m Cardiolite and subsequently rest SPECT Cardiolite nuclear imaging was obtained in the horizontal long, vertical long, and short axis views. The patient underwent pharmacologic (Regadenoson) evaluation with a peak heart rate of 96 beats per minute (62 % percent predicted maximal heart rate) and a peak blood pressure of 122/70 mmHg. The patient was injected with 44.2 millicuries of technetium 99m Cardiolite and subsequently stress SPECT Cardiolite nuclear imaging was obtained in the horizontal long, vertical long, and short axis views. A gated Cardiolite study at peak stress was obtained. Interpretation: Rest and stress SPECT Cardiolite nuclear imaging status post realignment, normalization, and attenuation correction demonstrate the appearance of diminished absence of myocardial perfusion/tracer uptake in portions of the mid to distal anterior, mid to distal anterolateral, distal anteroseptal, distal inferior, and apical segments without significant change between rest and stress. There is diminished end systolic thickening and brightening in the aforementioned areas. The gated Cardiolite study demonstrates diminished myocardial thickening and inward wall motion in the aforementioned areas. The reported LVEF is 24 %. Impression: 1. Rest and stress SPECT Cardiolite nuclear imaging demonstrating myocardial perfusion changes compatible with previous myocardial injury/infarction involving portions of the mid to distal anterior, distal anterolateral, distal anteroseptal, distal inferior, and apical segments with no myocardial perfusion changes consider diagnostic for associated stress-induced myocardial ischemia. 2. The gated Cardiolite study reports an LVEF of 24%. This note was generated with [employer] software. It may contain incorrect words, spelling, and punctuation that were not noted in checking the note before signing.
--- NOTE | 2017-12-03 10:01 | STRESSREP_ITS ---
Stress Test Report Date: 12/03/2017 Procedure: Pharmacologic stress nuclear imaging study Indications: Chest pain; CAD; LA; PCI; CABG; ICD Consent: Per the patient Procedure: The patient underwent pharmacologic (Regadenoson) evaluation with a peak heart rate of 96 beats per minute (62 predicted maximal heart rate) and a peak blood pressure of 122/70 mmHg. The baseline ECG demonstrated normal sinus rhythm, poor R-wave progression, ST/T -wave abnormality. The peak pharmacologic ECG demonstrated somatic/motion artifact with no obvious ECG changes. There were no cardiac dysrhythmias pretest, during pharmacologic infusion, or recovery. There was no complaint of chest discomfort during pharmacologic infusion or recovery. The examination was discontinued secondary to completion of protocol. Impression: 1. Pharmacologic (Regadenoson) evaluation 2. Peak pharmacologic ECG with no obvious ECG changes. 3. No cardiac dysrhythmias pretest, during pharmacologic infusion, or recovery 4. Nuclear images pending Myocardial perfusion imaging study: Technique: The patient was injected with 14.4 millicuries of technetium 99m Cardiolite and subsequently rest SPECT Cardiolite nuclear imaging was obtained in the horizontal long, vertical long, and short axis views. The patient underwent pharmacologic (Regadenoson) evaluation with a peak heart rate of 96 beats per minute (62 % percent predicted maximal heart rate) and a peak blood pressure of 122/70 mmHg. The patient was injected with 44.2 millicuries of technetium 99m Cardiolite and subsequently stress SPECT Cardiolite nuclear imaging was obtained in the horizontal long, vertical long, and short axis views. A gated Cardiolite study at peak stress was obtained. Interpretation: Rest and stress SPECT Cardiolite nuclear imaging status post realignment, normalization, and attenuation correction demonstrate the appearance of diminished absence of myocardial perfusion/tracer uptake in portions of the mid to distal anterior, mid to distal anterolateral, distal anteroseptal, distal inferior, and apical segments without significant change between rest and stress. There is diminished end systolic thickening and brightening in the aforementioned areas. The gated Cardiolite study demonstrates diminished myocardial thickening and inward wall motion in the aforementioned areas. The reported LVEF is 24 %. Impression: 1. Rest and stress SPECT Cardiolite nuclear imaging demonstrating myocardial perfusion changes compatible with previous myocardial injury/infarction involving portions of the mid to distal anterior, distal anterolateral, distal anteroseptal, distal inferior, and apical segments with no myocardial perfusion changes consider diagnostic for associated stress-induced myocardial ischemia. 2. The gated Cardiolite study reports an LVEF of 24%. This note was generated with [employer] software. It may contain incorrect words, spelling, and punctuation that were not noted in checking the note before signing.
--- NOTE | 2017-12-03 10:34 | PCM.DC ---
- Discharge Diagnoses Current Active Problems: Current Active and Chronic Problems (Last Reviewed 08/25/17 @ 12:41 by Tara Baxter) COPD (chronic obstructive pulmonary disease) (Chronic) Obesity (BMI 30.0-34.9) (Chronic) COPD exacerbation (Acute) Chest pain (Acute) JILLIAN (acute kidney injury) (Acute) You will use the following diet at home:: Cardiac Instructions: ED Chest Pain NonCardiac Allergies/Adverse Reactions: Allergies chlorpromazine HCl [From Thorazine] Allergy (Severe, Verified 12/02/17 04:08) Hives PER PATIENT tramadol HCl [From Ultram] Allergy (Severe, Verified 12/02/17 04:08) Hives PER PATIENT codeine Allergy (Intermediate, Verified 12/02/17 04:08) Hives atorvastatin Adverse Reaction (Intermediate, Verified 12/02/17 04:08) Other LEG PAIN/CRAMPS naproxen Adverse Reaction (Verified 12/02/17 04:08) Upset Stomach Medications to take at Discharge Nitroglycerin [Nitrostat] 0.4 mg SUBLINGUAL Q5M PRN 09/17/15 Isosorbide Mononitrate [Imdur] 30 mg PO DAILY 02/18/17 Albuterol Aerosols [Ventolin Aerosols] 2.5 mg INHALATION Q4H PRN PRN 02/23/17 Ondansetron [Zofran Odt] 4 mg PO Q4H PRN PRN #10 tab.rapdis 02/23/17 Allopurinol 300 mg PO DAILY 05/05/17 Clopidogrel Bisulfate [Plavix] 75 mg PO DAILY #30 tab 06/17/17 metoprolol succinate ER 50 mg tablet,extended release 24 hr 100 mg PO DAILY 07/09/17 albuterol sulfate HFA 90 mcg/actuation aerosol inhaler 2 puff INHALATION Q4H PRN g 07/31/17 fenofibrate nanocrystallized 145 mg tablet 145 mg PO DAILY 07/31/17 nicotine 14 mg/24 hr daily transdermal patch 21 mg TRANSDERMAL Q24H 07/31/17 rosuvastatin 40 mg tablet 40 mg PO DAILY 07/31/17 spironolactone 25 mg tablet 25 mg PO QAM 07/31/17 Furosemide 40 mg PO DAILY 09/03/17 Umeclidinium Brm/Vilanterol Tr [Anoro Ellipta 62.5-25 Mcg INH] 1 inh INHALATION DAILY 09/03/17 Aspirin 325 mg PO DAILY@0800 11/15/17 Pantoprazole Sodium [Protonix] 40 mg PO DAILY 11/15/17 Acetaminophen [Tylenol Tablet] 650 mg PO Q6H PRN PRN #0 tablet 12/03/17 Doxycycline 100 mg PO BID #14 cap 12/03/17 Guaifenesin [Mucinex] 1,200 mg PO BID #14 tab 12/03/17 Oxycodone HCl/Acetaminophen [Percocet 7.5-325 mg Tablet] 1 tab PO Q6H PRN PRN 5 Days #15 tab 12/03/17 Prednisone 10 mg PO UD #30 tab 12/03/17 The following prescriptions were given: Doxycycline 100 mg PO BID #14 cap Guaifenesin [Mucinex] 1,200 mg PO BID #14 tab Oxycodone HCl/Acetaminophen [Percocet 7.5-325 mg Tablet] 1 tab PO Q6H PRN PRN 5 Days #15 tab PRN Reason: Pain Prednisone 10 mg PO UD #30 tab Primary Care Physician: Juan De La Vega III, MD [Primary Care Provider] - Please follow up with your Primary Care Physician in: in 3-5 days Please Follow Up With: Gordy Inman MD When: in 2-4 weeks Please Follow Up With: Sandy Edmond DO When: in 1-2 weeks Proposed Discharge Date: 12/03/17
--- NOTE | 2017-12-03 10:37 | PCM.DC.SUM ---
Discharge Date and Diagnosis - Problem List Patient Problems: Active and Suspected Problems (Last Reviewed 08/25/17 @ 12:41 by Tara Baxter) COPD exacerbation (Acute) Chest pain (Acute) JILLIAN (acute kidney injury) (Acute) Date of Admission: 12/02/17 Date of Discharge: 12/03/17 - Primary Discharge Diagnosis Active and Suspected Problems (Last Reviewed 08/25/17 @ 12:41 by Tara Baxter) COPD exacerbation (Acute) Chest pain (Acute) JILLIAN (acute kidney injury) (Acute) - Secondary Discharge Diagnosis Chronic Problems (Last Reviewed 08/25/17 @ 12:41 by Tara Baxter) COPD (chronic obstructive pulmonary disease) (Chronic) Obesity (BMI 30.0-34.9) (Chronic) Nicotine dependence (Chronic) Chronic bronchitis (Chronic) Sciatica (Chronic) Gout (Chronic) Degenerative cervical disc (Chronic) Claudication (Chronic) Chronic back pain (Chronic) Presence of automatic implantable cardioverter-defibrillator (Chronic) Chronic renal failure, stage 3 (moderate) (Chronic) Chronic systolic (congestive) heart failure (Chronic) Stented coronary artery (Chronic ~12/2016) has had 7 stents as of 06/15/17 Ischemic cardiomyopathy (Chronic) 25% ejection fraction in November 2016 V-tach (Chronic) has an AICD Benign essential hypertension (Chronic) Gastroesophageal reflux disease (Chronic) Hyperlipidemia (Chronic) Type 2 diabetes mellitus (Chronic) Morbid obesity (Chronic) CAD (coronary artery disease) (Chronic) Hospital Course and Treatment Imaging Results: Clinical Impression(s) from Imaging Studies Chest X-Ray 12/02/17 04:01 IMPRESSION: Pacemaker leads are in proper position. There is a calcified granuloma the RIGHT lung base. There are fibrotic changes at the lung bases. There is a 15 mm nodular shadow along the LEFT heart border. Pulmonary nodule not excluded. There is NO pleural effusion or pneumothorax. Normal size heart. There has been open heart surgery. Electronically Signed: Serge Motley MD at 4:55 EDT , Service support , Operations: None Summary of Care Provided: In brief, patient is a 7-year-old gentleman with known history of CAD who presents with progressive shortness of breath as well as left shoulder pain 1. Chest pain in a patient with underlying known CAD and was placed on a monitored bed did rule out [place] with serial cardiac enzymes patient underwent a nuclear stress test as recommended by cardiology which was negative for stress-induced ischemia 2. Acute infectious bronchitis with underlying COPD treated with aerosol treatment discharge him on doxycycline with plans for patient to follow-up with pulmonary medicine as outpatient 3. Ischemic cardiomyopathy with an ejection fraction of 20-25% status post AICD placement 4. Acute kidney injury secondary to frequent use of NSAIDs patient was counseled on the need to quit was also seen in consultation by Dr. Sandy Edmond with neurology. Patient kidney function did improve prior to discharge 5. Diabetes mellitus type II 6. Dyslipidemia 7. Obesity with BMI of 31.3 8. Tobacco dependence. 9. GERD 10. Chronic pain syndrome secondary to degenerative joint disease patient is on chronic narcotics was instructed to follow-up with PCP to consider alternative treatment 10. DVT prophylaxis SC Heparin Physical Examination on Discharge GENERAL: cooperative HEENT: Clear conjunctiva, NECK; supple, normal thyroid, CHEST: Diminished to auscultation bilaterally, HEART: Regular S1 S2, ABDOMEN: soft, normoactive bowel sounds, RECTAL: deferred EXTREMITIES: No clubbing, no cyanosis. EDUCATION LIAISON: Awake, no lateralizing signs Discharge Diet: Low fat/ Low Cholesterol Home Medications: Medications to take at Discharge Nitroglycerin [Nitrostat] 0.4 mg SUBLINGUAL Q5M PRN 09/17/15 Isosorbide Mononitrate [Imdur] 30 mg PO DAILY 02/18/17 Albuterol Aerosols [Ventolin Aerosols] 2.5 mg INHALATION Q4H PRN PRN 02/23/17 Ondansetron [Zofran Odt] 4 mg PO Q4H PRN PRN #10 tab.rapdis 02/23/17 Allopurinol 300 mg PO DAILY 05/05/17 Clopidogrel Bisulfate [Plavix] 75 mg PO DAILY #30 tab 06/17/17 metoprolol succinate ER 50 mg tablet,extended release 24 hr 100 mg PO DAILY 07/09/17 albuterol sulfate HFA 90 mcg/actuation aerosol inhaler 2 puff INHALATION Q4H PRN g 07/31/17 fenofibrate nanocrystallized 145 mg tablet 145 mg PO DAILY 07/31/17 nicotine 14 mg/24 hr daily transdermal patch 21 mg TRANSDERMAL Q24H 07/31/17 rosuvastatin 40 mg tablet 40 mg PO DAILY 07/31/17 spironolactone 25 mg tablet 25 mg PO QAM 07/31/17 Furosemide 40 mg PO DAILY 09/03/17 Umeclidinium Brm/Vilanterol Tr [Anoro Ellipta 62.5-25 Mcg INH] 1 inh INHALATION DAILY 09/03/17 Aspirin 325 mg PO DAILY@0800 11/15/17 Pantoprazole Sodium [Protonix] 40 mg PO DAILY 11/15/17 Acetaminophen [Tylenol Tablet] 650 mg PO Q6H PRN PRN #0 tablet 12/03/17 Doxycycline 100 mg PO BID #14 cap 12/03/17 Guaifenesin [Mucinex] 1,200 mg PO BID #14 tab 12/03/17 Oxycodone HCl/Acetaminophen [Percocet 7.5-325 mg Tablet] 1 tab PO Q6H PRN PRN 5 Days #15 tab 12/03/17 Prednisone 10 mg PO UD #30 tab 12/03/17 Following Prescrptions Were Given to Patient: Doxycycline 100 mg PO BID #14 cap Guaifenesin [Mucinex] 1,200 mg PO BID #14 tab Oxycodone HCl/Acetaminophen [Percocet 7.5-325 mg Tablet] 1 tab PO Q6H PRN PRN 5 Days #15 tab PRN Reason: Pain Prednisone 10 mg PO UD #30 tab Primary Care Physician: Juan De La Vega III, MD [Primary Care Provider] - Please follow up with your Primary Care Physician in: in 3-5 days Please Follow Up With: Gordy Inman MD When: in 2-4 weeks Please Follow Up With: Sandy Edmond DO When: in 1-2 weeks Patient Instructions: ED Chest Pain NonCardiac Disposition: Home Minutes spent on discharge:: 35 Patient Condition:: Stable Medical Necessity - Tobacco Use Smoking Status: Former smoker Tobacco Use: Non-smoker Meaningful Use Info Meaningful Use Diagnoses (Choose all that apply): None applicable Code Visit Inpatient E&M: 90882 Disch Hosp
--- NOTE | 2017-12-03 10:47 | DS.PCM_ITS ---
Discharge Date and Diagnosis - Problem List Patient Problems: Active and Suspected Problems (Last Reviewed 08/25/17 @ 12:41 by Tara Baxter) COPD exacerbation (Acute) Chest pain (Acute) JILLIAN (acute kidney injury) (Acute) Date of Admission: 12/02/17 Date of Discharge: 12/03/17 - Primary Discharge Diagnosis Active and Suspected Problems (Last Reviewed 08/25/17 @ 12:41 by Tara Baxter) COPD exacerbation (Acute) Chest pain (Acute) JILLIAN (acute kidney injury) (Acute) - Secondary Discharge Diagnosis Chronic Problems (Last Reviewed 08/25/17 @ 12:41 by Tara Baxter) COPD (chronic obstructive pulmonary disease) (Chronic) Obesity (BMI 30.0-34.9) (Chronic) Nicotine dependence (Chronic) Chronic bronchitis (Chronic) Sciatica (Chronic) Gout (Chronic) Degenerative cervical disc (Chronic) Claudication (Chronic) Chronic back pain (Chronic) Presence of automatic implantable cardioverter-defibrillator (Chronic) Chronic renal failure, stage 3 (moderate) (Chronic) Chronic systolic (congestive) heart failure (Chronic) Stented coronary artery (Chronic ~12/2016) has had 7 stents as of 06/15/17 Ischemic cardiomyopathy (Chronic) 25% ejection fraction in November 2016 V-tach (Chronic) has an AICD Benign essential hypertension (Chronic) Gastroesophageal reflux disease (Chronic) Hyperlipidemia (Chronic) Type 2 diabetes mellitus (Chronic) Morbid obesity (Chronic) CAD (coronary artery disease) (Chronic) Hospital Course and Treatment Imaging Results: Clinical Impression(s) from Imaging Studies Chest X-Ray 12/02/17 04:01 IMPRESSION: Pacemaker leads are in proper position. There is a calcified granuloma the RIGHT lung base. There are fibrotic changes at the lung bases. There is a 15 mm nodular shadow along the LEFT heart border. Pulmonary nodule not excluded. There is NO pleural effusion or pneumothorax. Normal size heart. There has been open heart surgery. Electronically Signed: Serge Motley MD at 4:55 EDT , Service support , Operations: None Summary of Care Provided: In brief, patient is a 7-year-old gentleman with known history of CAD who presents with progressive shortness of breath as well as left shoulder pain 1. Chest pain in a patient with underlying known CAD and was placed on a monitored bed did rule out [place] with serial cardiac enzymes patient underwent a nuclear stress test as recommended by cardiology which was negative for stress- induced ischemia 2. Acute infectious bronchitis with underlying COPD treated with aerosol treatment discharge him on doxycycline with plans for patient to follow-up with pulmonary medicine as outpatient 3. Ischemic cardiomyopathy with an ejection fraction of 20-25% status post AICD placement 4. Acute kidney injury secondary to frequent use of NSAIDs patient was counseled on the need to quit was also seen in consultation by Dr. Sandy Edmond with neurology. Patient kidney function did improve prior to discharge 5. Diabetes mellitus type II 6. Dyslipidemia 7. Obesity with BMI of 31.3 8. Tobacco dependence. 9. GERD 10. Chronic pain syndrome secondary to degenerative joint disease patient is on chronic narcotics was instructed to follow-up with PCP to consider alternative treatment 10. DVT prophylaxis SC Heparin Physical Examination on Discharge GENERAL: cooperative HEENT: Clear conjunctiva, NECK; supple, normal thyroid, CHEST: Diminished to auscultation bilaterally, HEART: Regular S1 S2, ABDOMEN: soft, normoactive bowel sounds, RECTAL: deferred EXTREMITIES: No clubbing, no cyanosis. FOOD SERVICE REPRESENTATIVE: Awake, no lateralizing signs Discharge Diet: Low fat/ Low Cholesterol Home Medications: Medications to take at Discharge Nitroglycerin [Nitrostat] 0.4 mg SUBLINGUAL Q5M PRN 09/17/15 Isosorbide Mononitrate [Imdur] 30 mg PO DAILY 02/18/17 Albuterol Aerosols [Ventolin Aerosols] 2.5 mg INHALATION Q4H PRN PRN 02/23/17 Ondansetron [Zofran Odt] 4 mg PO Q4H PRN PRN #10 tab.rapdis 02/23/17 Allopurinol 300 mg PO DAILY 05/05/17 Clopidogrel Bisulfate [Plavix] 75 mg PO DAILY #30 tab 06/17/17 metoprolol succinate ER 50 mg tablet,extended release 24 hr 100 mg PO DAILY albuterol sulfate HFA 90 mcg/actuation aerosol inhaler 2 puff INHALATION Q4H PRN g 07/31/17 fenofibrate nanocrystallized 145 mg tablet 145 mg PO DAILY 07/31/17 nicotine 14 mg/24 hr daily transdermal patch 21 mg TRANSDERMAL Q24H 07/31/17 rosuvastatin 40 mg tablet 40 mg PO DAILY 07/31/17 spironolactone 25 mg tablet 25 mg PO QAM 07/31/17 Furosemide 40 mg PO DAILY 09/03/17 Umeclidinium Brm/Vilanterol Tr [Anoro Ellipta 62.5-25 Mcg INH] 1 inh INHALATION DAILY 09/03/17 Aspirin 325 mg PO DAILY@0800 11/15/17 Pantoprazole Sodium [Protonix] 40 mg PO DAILY 11/15/17 Acetaminophen [Tylenol Tablet] 650 mg PO Q6H PRN PRN #0 tablet 12/03/17 Doxycycline 100 mg PO BID #14 cap 12/03/17 Guaifenesin [Mucinex] 1,200 mg PO BID #14 tab 12/03/17 Oxycodone HCl/Acetaminophen [Percocet 7.5-325 mg Tablet] 1 tab PO Q6H PRN PRN 5 Days #15 tab 12/03/17 Prednisone 10 mg PO UD #30 tab 12/03/17 Following Prescrptions Were Given to Patient: Doxycycline 100 mg PO BID #14 cap Guaifenesin [Mucinex] 1,200 mg PO BID #14 tab Oxycodone HCl/Acetaminophen [Percocet 7.5-325 mg Tablet] 1 tab PO Q6H PRN PRN 5 Days #15 tab PRN Reason: Pain Prednisone 10 mg PO UD #30 tab Primary Care Physician: Juan De La Vega III, MD [Primary Care Provider] - Please follow up with your Primary Care Physician in: in 3-5 days Please Follow Up With: Gordy Inman MD When: in 2-4 weeks Please Follow Up With: Sandy Edmond DO When: in 1-2 weeks Patient Instructions: ED Chest Pain NonCardiac Disposition: Home Minutes spent on discharge:: 35 Patient Condition:: Stable Medical Necessity - Tobacco Use Smoking Status: Former smoker Tobacco Use: Non-smoker Meaningful Use Info Meaningful Use Diagnoses (Choose all that apply): None applicable Code Visit Inpatient E&M: 09561 Disch Hosp
[2017-12-03] MEDS: Ipratropium/Albuterol Sulfate 3 ML AMPUL.NEB INHALATION (11:09)
[2017-12-03] MEDS: Furosemide 40 MG/4 ML Vial IV (11:12)
[2017-12-03] MEDS: HYDROmorphone 1 MG/ML Syringe IV (11:13)
[2017-12-03] MEDS: Metoprolol(XL)Succ 100 MG Tablet PO (11:13)
[2017-12-03 12:41] LABS: Bedside Glucose 132 mg/dL (70-110)
== END 2017-12-03 12:36 | disposition home or self-care (01) | DRG 191 ==
LOC: ED 04:19 → PCU 06:31
PROVIDERS: Internal Medicine Cardiovascular Disease; Internal Medicine Critical Care Medicine; Admitting Provider Family Medicine; Emergency Provider Emergency Medicine; Family Provider Family Medicine; PCP Family Medicine; Visit Provider Internal Medicine
DX: J44.0 Chronic obstructive pulmonary disease with (acute) lower respiratory infection (principal); N17.9 Acute kidney failure, unspecified; I13.0 Hypertensive heart and chronic kidney disease with heart failure and stage 1 through stage 4 chronic kidney disease, or unspecified chronic kidney disease; I50.22 Chronic systolic (congestive) heart failure; J20.9 Acute bronchitis, unspecified; J44.1 Chronic obstructive pulmonary disease with (acute) exacerbation; E66.9 Obesity, unspecified; I25.10 Atherosclerotic heart disease of native coronary artery without angina pectoris; E78.5 Hyperlipidemia, unspecified; E11.22 Type 2 diabetes mellitus with diabetic chronic kidney disease; N18.3 Chronic kidney disease, stage 3 (moderate); Z68.31 Body mass index [BMI] 31.0-31.9, adult; F17.200 Nicotine dependence, unspecified, uncomplicated; I25.5 Ischemic cardiomyopathy; Z95.5 Presence of coronary angioplasty implant and graft; K21.9 Gastro-esophageal reflux disease without esophagitis; Z95.810 Presence of automatic (implantable) cardiac defibrillator; M10.9 Gout, unspecified; Z95.1 Presence of aortocoronary bypass graft; M54.30 Sciatica, unspecified side; G89.4 Chronic pain syndrome; M19.90 Unspecified osteoarthritis, unspecified site; Z79.899 Other long term (current) drug therapy
CPT/HCPCS: 36415; 71046; 78452; 80048; 80307; 82962; 83735; 83880; 84484; 85025; 85027; 85610; 85730; 87633; 87804; 93005; 93017; 93306; 94640; 99251; 99285; A9500; J7030; Q9957; A4216; C8929; G0463; J1940; J2405; J2785

== ENCOUNTER 2017-12-06 11:14 | Inpatient (IN) | payer MEDICARE, MEDICAID, SELFPAY ==
[2017-12-06] VITALS (17 sets, daily range): BP systolic 96–127; BP diastolic 45–86; PULSE 75–89; RESP 12–28; TEMP 36.6–36.8; O2SAT 94–99; BMI 33.5; BMI 31.1; BMI 31.2
--- NOTE | 2017-12-06 11:39 | EKG12_ITS ---
Test Reason : Blood Pressure : / mmHG Vent. Rate : 085 BPM Atrial Rate : 085 BPM P-R Int : 142 ms QRS Dur : 106 ms QT Int : 388 ms P-R-T Axes : 052 031 135 degrees QTc Int : 461 ms Normal sinus rhythm ST & T wave abnormality, consider lateral ischemia Prolonged QT Abnormal ECG Confirmed by SHAVONNE LUNDBERG, LISA ([id number]), purchasing expeditor LANDRY YARBROUGH ([id number]) on 12/08/2017 1:23:35 PM Referred By: Confirmed By:LISA MARVIN MD
--- NOTE | 2017-12-06 11:45 | RAD_ITS ---
STUDY: X-RAY CHEST REASON FOR EXAM: Male, 67 years old. Chest pain TECHNIQUE: Frontal view of the chest COMPARISON: 12/02/2017 FINDINGS: The lungs are clear. There are no pleural effusions. There is no pneumothorax. The heart is normal in size.. Again noted is a pacemaker. The visualized osseous structures are within normal limits. RAD/Chest 1 View (Portable) IMPRESSION: No acute thoracic pathology. Electronically Signed: Mehdi Campa, at 12:12 EDT Tel , Service support ,
[2017-12-06 11:49] LABS: Absolute Lymphocyte Count 1.82 X10^3/ul (0.83-4.51); Absolute Neutrophil Count 7.3 X10^3/uL (2.0-7.7); Basophil# 0.02 X10^3/uL; Basophil% 0.2 % (0-1); Hematocrit 41.1 % (40-54); Hemoglobin 13.6 g/dl (13.0-16.5); Lymphocyte # 1.82 X10^3/ul (4.0); Lymphocyte % 18.2 % (19-41); Mean Corp Hgb Conc 33.1 g/gl (32-36); Mean Corpuscular Hgb 29.7 pg (27.0-32.0); Mean Corpuscular Volume 89.7 fL (80-94); Mean Platelet Vol. 9.3 fl (6.2-12.0); Monocyte# 0.69 X10^3/uL; Monocyte% 6.9 % (0-10); Neutrophil # 7.28 X10^3/uL (2.7-7.7); Neutrophil % 72.6 % (47-70); POSITIVE COUNT NO; POSITIVE DIFFERENTIAL NO; POSITIVE MORPHOLOGY NO; Platelet Count 264 K/mm3 (150-450); RBC Distribution Width CV 14.1 % (11.6-14.6); RBC Distribution Width SD 46.3 fl (35.1-43.9); Red Blood Count 4.58 M/mm3 (4.6-6.2)
[2017-12-06] MEDS: Morphine 4 MG/ML Syringe IV ×2 (12:02→13:22)
[2017-12-06 12:03] LABS: Anion Gap 9 (5-15); BUN 29 mg/dL (7-18); BUN/Creat Ratio 21.8 RATIO (10-20); Calcium,Total 9.4 mg/dL (8.5-10.1); Chloride 101 mmol/L (98-107); Creatinine, Serum 1.33 mg/dL (0.70-1.30); EST Glomerular Filtration Rate 57 mL/min (>60); Est Glom Filt Rate - Afr Amer 69 mL/min (>60); Estimated Creatinine Clearance 54.63 ml/min; Glucose 141 mg/dL (74-106); Potassium 3.6 mmol/L (3.5-5.1); Sodium Level 137 mmol/L (136-145)
[2017-12-06] MEDS: Ondansetron 4 MG/2 ML Vial IV (12:03)
--- NOTE | 2017-12-06 12:57 | ED.VISSUMM ---
- ER Visit Summary Date of Service: 12/06/17 Chief Complaint: Shortness of breath History of Present Illness: The patient is a 67 M presenting with chest pain and shortness of breath. Patient states this started around 3 AM. He states he started suddenly having difficulty breathing. This morning he called EMS. He was put on CPAP en route to the hospital. On arrival he continues to have increased work of breathing and was switched to BiPAP. Patient was recently admitted and had a stress test which was negative for stress-induced ischemia. He has a history of diabetes, hypertension, hypercholesterolemia, CHF, COPD, chronic kidney disease, ischemic cardiomyopathy with an EF of 25%. He has a defibrillator. He denies fever or other complaints. Physical Examination: Vitals are stable. Patient is afebrile. Alert no acute distress. HEENT exam is unremarkable. Neck is supple. Lungs diminished breath sounds with rales bases bilaterally. Accessory muscle use Heart is regular rate and rhythm. Abdomen is soft nontender nondistended. Extremities are unremarkable. Skin is warm and dry. No focal neurologic deficit. Remainder of exam is unremarkable. Emergency Department Course and Treatment: EKG is sinus rate of 85 unchanged from previous. Chest x-ray shows no acute process. CBC, chemistries unremarkable other than glucose 141, BUN 29, creatinine 1.33. Troponin 0 0.023. Patient was given aspirin, morphine, Zofran. His breathing has improved while on BiPAP. Discussed with Dr. Barbosa for admission. Disposition: Admission Impression: Respiratory failure, history of ischemic cardiomyopathy This note was generated with [employer] dictation software. It may contain incorrect words, spelling, and punctuation that were not noted in review of the chart prior to signing ED Disposition - Plan for ED Patient: Disposition: Acute Care Hospital [facility] Chief Complaint: Chest Pain
--- NOTE | 2017-12-06 13:01 | ED.DCSUM_ITS ---
- ER Visit Summary Date of Service: 12/06/17 Chief Complaint: Shortness of breath History of Present Illness: The patient is a 67 M presenting with chest pain and shortness of breath. Patient states this started around 3 AM. He states he started suddenly having difficulty breathing. This morning he called EMS. He was put on CPAP en route to the hospital. On arrival he continues to have increased work of breathing and was switched to BiPAP. Patient was recently admitted and had a stress test which was negative for stress-induced ischemia. He has a history of diabetes, hypertension, hypercholesterolemia, CHF, COPD, chronic kidney disease, ischemic cardiomyopathy with an EF of 25%. He has a defibrillator. He denies fever or other complaints. Physical Examination: Vitals are stable. Patient is afebrile. Alert no acute distress. HEENT exam is unremarkable. Neck is supple. Lungs diminished breath sounds with rales bases bilaterally. Accessory muscle use Heart is regular rate and rhythm. Abdomen is soft nontender nondistended. Extremities are unremarkable. Skin is warm and dry. No focal neurologic deficit. Remainder of exam is unremarkable. Emergency Department Course and Treatment: EKG is sinus rate of 85 unchanged from previous. Chest x-ray shows no acute process. CBC, chemistries unremarkable other than glucose 141, BUN 29, creatinine 1.33. Troponin 0 0.023. Patient was given aspirin, morphine, Zofran. His breathing has improved while on BiPAP. Discussed with Dr. Barbosa for admission. Disposition: Admission Impression: Respiratory failure, history of ischemic cardiomyopathy This note was generated with [employer] dictation software. It may contain incorrect words, spelling, and punctuation that were not noted in review of the chart prior to signing ED Disposition - Plan for ED Patient: Disposition: Acute Care Hospital [facility] Chief Complaint: Chest Pain
--- NOTE | 2017-12-06 13:16 | PCM.HP.STD ---
Problem List (1) Acute hypoxemic respiratory failure Status: Acute (2) COPD exacerbation Status: Acute (3) Chest pain Status: Chronic Qualifiers: (4) Musculoskeletal chest pain Status: Chronic (5) URI (upper respiratory infection) Status: Resolved (6) Benign essential hypertension Status: Chronic (7) CAD (coronary artery disease) Status: Chronic Qualifiers: (8) COPD (chronic obstructive pulmonary disease) Status: Chronic Qualifiers: (9) Chronic back pain Status: Chronic Qualifiers: (10) Chronic bronchitis Status: Chronic (11) Chronic renal failure, stage 3 (moderate) Status: Chronic (12) Chronic systolic (congestive) heart failure Status: Chronic (13) Claudication Status: Chronic (14) Degenerative cervical disc Status: Chronic (15) Gastroesophageal reflux disease Status: Chronic Qualifiers: (16) Gout Status: Chronic (17) Hyperlipidemia Status: Chronic Qualifiers: (18) Ischemic cardiomyopathy Status: Chronic Comment: 25% ejection fraction in November 2016 (19) Morbid obesity Status: Chronic (20) Nicotine dependence Status: Chronic (21) Obesity (BMI 30.0-34.9) Status: Chronic (22) Presence of automatic implantable cardioverter-defibrillator Status: Chronic (23) Sciatica Status: Chronic (24) Stented coronary artery Status: Chronic Comment: has had 7 stents as of 06/15/17 (25) Type 2 diabetes mellitus Status: Chronic Qualifiers: (26) V-tach Status: Chronic Comment: has an AICD (27) Sleep-disordered breathing Status: Suspected (28) H/O coronary artery bypass surgery Status: Resolved Comment: HUMPHREY-LAD, SVG-D1, SVG-OM (29) Presence of automatic implantable cardioverter-defibrillator Status: Resolved History of Present Illness Date of Admission: 12/06/17 Chief Complaint: Shortness of breath The patient is a 67 year old M with multiple comorbidities including cardiomyopathy with an ejection fraction of 25% discharged from the hospital 3 days prior to his readmission. Patient was on admission for chest pain underwent a nuclear stress test which was negative for stress-induced ischemia. Patient woke up on the morning of his presentation around 3 AM with significant difficulty breathing. His condition worsened as the morning progressed he finally called the squad who found him to be significantly dyspneic. Was placed on noninvasive ventilation and brought to the emergency department. In the emergency department patient underwent imaging studies with chest x-ray which was questionable for fluid overload. Patient was maintained on BiPAP and admitted to monitored bed for further management Past Medical History Past Medical History (Chronic Problems): Chronic Problems (Last Reviewed 08/25/17 @ 12:41 by Tara Baxter) Musculoskeletal chest pain (Chronic) COPD (chronic obstructive pulmonary disease) (Chronic) Obesity (BMI 30.0-34.9) (Chronic) Chest pain (Chronic) Nicotine dependence (Chronic) Chronic bronchitis (Chronic) Sciatica (Chronic) Gout (Chronic) Degenerative cervical disc (Chronic) Claudication (Chronic) Chronic back pain (Chronic) Presence of automatic implantable cardioverter-defibrillator (Chronic) Chronic renal failure, stage 3 (moderate) (Chronic) Chronic systolic (congestive) heart failure (Chronic) Stented coronary artery (Chronic ~12/2016) has had 7 stents as of 06/15/17 Ischemic cardiomyopathy (Chronic) 25% ejection fraction in November 2016 V-tach (Chronic) has an AICD Benign essential hypertension (Chronic) Gastroesophageal reflux disease (Chronic) Hyperlipidemia (Chronic) Type 2 diabetes mellitus (Chronic) Morbid obesity (Chronic) CAD (coronary artery disease) (Chronic) Allergies chlorpromazine HCl [From Thorazine] Allergy (Severe, Verified 12/06/17 11:20) Hives PER PATIENT tramadol HCl [From Ultram] Allergy (Severe, Verified 12/06/17 11:20) Hives PER PATIENT codeine Allergy (Intermediate, Verified 12/06/17 11:20) Hives atorvastatin Adverse Reaction (Intermediate, Verified 12/06/17 11:20) Other LEG PAIN/CRAMPS naproxen Adverse Reaction (Verified 12/06/17 11:20) Upset Stomach Home Medications: Ambulatory Orders Medication Instructions Recorded Nitroglycerin [Nitrostat] 0.4 mg SUBLINGUAL Q5M PRN 09/17/15 Isosorbide Mononitrate [Imdur] 30 mg PO DAILY 02/18/17 Albuterol Aerosols [Ventolin 2.5 mg INHALATION Q4H PRN PRN 02/23/17 Aerosols] Ondansetron [Zofran Odt] 4 mg PO Q4H PRN PRN #10 tab.rapdis 02/23/17 Allopurinol 300 mg PO DAILY 05/05/17 Clopidogrel Bisulfate [Plavix] 75 mg PO DAILY #30 tab 06/17/17 metoprolol succinate ER 50 mg 100 mg PO DAILY 07/09/17 tablet,extended release 24 hr albuterol sulfate HFA 90 2 puff INHALATION Q4H PRN g 07/31/17 mcg/actuation aerosol inhaler fenofibrate nanocrystallized 145 145 mg PO DAILY 07/31/17 mg tablet nicotine 14 mg/24 hr daily 21 mg TRANSDERMAL Q24H 07/31/17 transdermal patch rosuvastatin 40 mg tablet 40 mg PO DAILY 07/31/17 spironolactone 25 mg tablet 25 mg PO QAM 07/31/17 Furosemide 40 mg PO DAILY 09/03/17 Umeclidinium Brm/Vilanterol Tr 1 inh INHALATION DAILY 09/03/17 [Anoro Ellipta 62.5-25 Mcg INH] Pantoprazole Sodium [Protonix] 40 mg PO DAILY 11/15/17 Acetaminophen [Tylenol Tablet] 650 mg PO Q6H PRN PRN #0 tablet 12/03/17 Doxycycline 100 mg PO BID #14 cap 12/03/17 Guaifenesin [Mucinex] 1,200 mg PO BID #14 tab 12/03/17 Oxycodone HCl/Acetaminophen 1 tab PO Q6H PRN PRN 5 Days #15 tab 12/03/17 [Percocet 7.5-325 mg Tablet] Prednisone 10 mg PO UD #30 tab 12/03/17 Surgical History: angioplasty - stents x10, coronary bypass surgery, - - AICD placement, back surgery x 2, hernia repair Smoking Status: Former smoker - *Family History Paternal History Items: Cancer, Heart Disease Maternal History Items: Cancer Review of Systems Constitutional: Denies: Anorexia, Chills, Fever, Night Sweats, Weight Change HEENT: Denies: Head Aches, Sinus Congestion, Sinus Drainage Cardiovascular: Reports: Chest Pain. Denies: Orthopnea, Palpitations, Paroxysmal Noc. Dyspnea Respiratory: Reports: Shortness of Breath. Denies: Cough Gastrointestinal: Denies: Abdominal Pain, Hematemesis, Hematochezia, Nausea, Melena, Vomiting Genitourinary: Denies: Dysuria, Frequency, Hematuria, Urgency Musculoskeletal: Denies: Joint Pain, Joint Tenderness Skin: Denies: Rash Neurological: Denies: Focal weakness, Numbness, Tingling Psychiatric: Denies: Homicidal Ideations, Suicidal Ideations Hematologic/ Lymphatic: Denies: Easy Bruising, Easy Bleeding VTE Information - Inpt Only VTE Present on Admission: No VTE Mechan Device Prophylaxis: Knee High FLAVIA Hose VTE Pharm Prophylaxis ordered?: Yes Patient Problems: Active and Suspected Problems (Last Reviewed 08/25/17 @ 12:41 by Tara Baxter) Acute hypoxemic respiratory failure (Acute) Objective: GENERAL: Dyspneic at rest using accessory muscles in breathing HEENT: Clear conjunctiva, moist oral mucosa NECK; supple, normal thyroid, no distended JVD. CHEST: Markedly diminished to auscultation bilaterally, HEART: Regular S1 S2, tachycardiac ABDOMEN: soft, non-tender, normoactive bowel sounds, RECTAL: deferred EXTREMITIES: No edema, no clubbing, no cyanosis. OVEN TECHNICIAN: Awake; no lateralizing signs. SKIN: No Rash - Physical Exam Vital Signs Temp Pulse Resp BP Pulse Ox 97.9 F 77 17 110/76 94 12/06/17 11:15 12/06/17 13:01 12/06/17 13:01 12/06/17 13:01 12/06/17 13:01 Oxygen Delivery Method Bi-pap Weight: 102.8 kg Body Mass Index (BMI) 33.5 Laboratory Tests Past 24 Hrs 12/06/17 12/06/17 11:25 11:25 WBC 10.0 RBC 4.58 L Hgb 13.6 Hct 41.1 MCV 89.7 MCH 29.7 MCHC 33.1 RDW 14.1 RDW Differential 46.3 H Plt Count 264 MPV 9.3 Immature Gran % (Auto) 0.100 Neut % (Auto) 72.6 H Lymph % (Auto) 18.2 L [place] % (Auto) 6.9 Eos % (Auto) 2.0 Baso % (Auto) 0.2 Absolute Neuts (auto) 7.3 Absolute Lymphs (auto) 1.82 Total Counted Not Reportable Sodium 137 Potassium 3.6 Chloride 101 Carbon Dioxide 27.0 Anion Gap 9 BUN 29 H Creatinine 1.33 H Estim Creat Clear Calc 54.63 Est GFR (MDRD) Af Amer 69 Est GFR (MDRD) Non-Af 57 L BUN/Creatinine Ratio 21.8 H Glucose 141 H Calcium 9.4 Troponin I 0.023 Assessment/Plan Active and Suspected Problems (Last Reviewed 01/30/18 @ 12:41 by Tara Baxter) Acute hypoxemic respiratory failure (Acute) Patient is a 67-year-old gentleman with known history of CAD who presents with progressive shortness of breath; and assessment of acute hypoxic respiratory failure made admitted to a monitored bed for further management 1. Acute hypoxemic respiratory failure secondary to combination of COPD as well as CHF patient placed on noninvasive ventilation BiPAP admitted to monitored bed for further management 2. Musculoskeletal chest pain patient underwent a nuclear stress test during his previous admission which was negative for stress-induced ischemia 3. Acute on chronic systolic heart failure with an ejection fraction of 20-25% patient is on Lasix did continue also placed on fluid restriction as well as noninvasive ventilation 4. Recent admission for Acute infectious bronchitis with underlying COPD; patient is on doxycycline did continue in addition to his local dilator treatment as well as systemic steroid 5. CAD patient is on recommended medications including dual antiplatelet therapy as well as started therapy 6. Dyslipidemia-patient is on statin therapy, continued at home dose 7. Obesity with BMI of 33.5 ; weight loss advised 8. Tobacco dependence counseled on cessation, offered nicotine patch for tobacco cravings 9. GERD 10. Chronic pain syndrome secondary to degenerative joint disease 11. DVT prophylaxis SC Lovenox Advanced planning did discuss with patient again regarding his wishes in the event of cardiopulmonary arrest patient wishes to remain full code time spent in discussion 18 minutes Code Visit Inpatient E&M: 78862 Subs Hosp L2 Procedures: 86088 Advncd Care Plan 30 Min
[2017-12-06] MEDS: Ipratropium/Albuterol Sulfate 3 ML AMPUL.NEB INHALATION ×3 (15:10→22:56)
[2017-12-06] MEDS: Morphine 2 MG/ML Syringe IV (15:55)
[2017-12-06 17:11] LABS: Bedside Glucose 196 mg/dL (70-110)
[2017-12-06] MEDS: guaiFENesin 1,200 MG Tablet 1200 MG PO (21:01)
[2017-12-06] MEDS: Acetaminophen 325 MG Tablet 650 MG PO (21:01)
[2017-12-06] MEDS: 0.9% NaCl Peripheral Flush Adult/Peds IV (21:02)
[2017-12-06] MEDS: oxyCODONE 5 MG Tablet PO (21:03)
[2017-12-06] MEDS: Doxycycline 100 MG CAPSULE PO (21:04)
[2017-12-06] MEDS: Rosuvastatin 20 MG Tablet 40 MG PO (21:21)
[2017-12-06 22:16] LABS: Bedside Glucose 234 mg/dL (70-110)
[2017-12-07] VITALS (17 sets, daily range): BP systolic 107–120; BP diastolic 46–68; PULSE 66–89; RESP 16–20; TEMP 36.5–37; O2SAT 92–96
--- NOTE | 2017-12-07 00:41 | CPS ---
Patient refused Bipap
[2017-12-07] MEDS: Morphine 4 MG/ML Syringe IV ×4 (01:12→15:48)
[2017-12-07] MEDS: 0.9% NaCl Peripheral Flush Adult/Peds IV ×5 (01:13→22:29)
[2017-12-07] MEDS: Ondansetron ODT 4 MG Tablet PO (01:18)
--- NOTE | 2017-12-07 02:16 | CPS ---
Patient refuses Bipap.
[2017-12-07] MEDS: Ipratropium/Albuterol Sulfate 3 ML AMPUL.NEB INHALATION ×6 (02:51→23:23)
[2017-12-07 05:24] LABS: Hematocrit 37.9 % (40-54); Mean Corp Hgb Conc 34.3 g/gl (32-36); Mean Corpuscular Volume 90.2 fL (80-94); Mean Platelet Vol. 9.7 fl (6.2-12.0); Platelet Count 263 K/mm3 (150-450); RBC Distribution Width CV 13.9 % (11.6-14.6); RBC Distribution Width SD 45.2 fl (35.1-43.9); White Blood Count 9.6 K/mm3 (4.4-11.0)
[2017-12-07 05:36] LABS: Scan Indicated on CBC? Y/N NO
--- NOTE | 2017-12-07 05:42 | CPS ---
Patient refused Bipap
[2017-12-07 05:45] LABS: Anion Gap 10 (5-15); BUN 38 mg/dL (7-18); BUN/Creat Ratio 23.2 RATIO (10-20); Calcium,Total 8.8 mg/dL (8.5-10.1); Chloride 100 mmol/L (98-107); Creatinine, Serum 1.64 mg/dL (0.70-1.30); EST Glomerular Filtration Rate 45 mL/min (>60); Est Glom Filt Rate - Afr Amer 54 mL/min (>60); Estimated Creatinine Clearance 42.87 ml/min; Glucose 231 mg/dL (74-106); Potassium 4.4 mmol/L (3.5-5.1); Sodium Level 136 mmol/L (136-145)
[2017-12-07 07:06] LABS: Bedside Glucose 223 mg/dL (70-110)
[2017-12-07] MEDS: oxyCODONE 5 MG Tablet PO (08:25)
[2017-12-07] MEDS: Allopurinol 300 MG Tablet PO (08:25)
[2017-12-07] MEDS: guaiFENesin 1,200 MG Tablet 1200 MG PO ×2 (10:51→22:59)
[2017-12-07] MEDS: Isosorbide Mononitrate 30 MG Tablet PO (10:51)
[2017-12-07] MEDS: Spironolactone 25 MG Tablet PO (10:51)
[2017-12-07] MEDS: Furosemide 40 MG Tablet PO (10:51)
[2017-12-07] MEDS: Doxycycline 100 MG CAPSULE PO ×2 (10:51→22:59)
[2017-12-07] MEDS: Enoxaparin 40 MG/0.4 ML Syringe SC (10:52)
[2017-12-07] MEDS: Clopidogrel Bisulfate 75 MG Tablet PO (10:52)
[2017-12-07] MEDS: Pantoprazole Sodium 40 MG Tablet PO (10:52)
[2017-12-07] MEDS: Metoprolol(XL)Succ 100 MG Tablet PO (10:52)
[2017-12-07] MEDS: Fenofibrate 145 MG Tablet PO (10:52)
[2017-12-07 11:11] LABS: Bedside Glucose 174 mg/dL (70-110)
--- NOTE | 2017-12-07 12:13 | PN_ITS ---
<Alyssa Corbett - Last Filed: 12/07/17 12:13> Patient Problems: Active and Suspected Problems (Last Reviewed 08/25/17 @ 12:41 by Tara Baxter) Acute hypoxemic respiratory failure (Acute) Subjective: Patient seen and examined. Denies further shortness of breath. Denies chest pain. Complains of significant back pain. States Dilaudid is the only thing that has worked for him in the past. He states he takes Percocet at home. States he has chronic back pain however this is worse than normal. Denies other complaints. - Physical Exam General: Alert, Oriented x3, Cooperative HEENT: Atraumatic, PERRLA, EOMI, Normocephalic Neck: Supple, No JVD, Negative Carotid Bruits Lungs: Clear to auscultation, Diminished Cardiovascular: Regular rate, No murmurs Abdomen: Bowel Sounds Present, Soft, Non Tender, Non-Distended, Obese Extremities: No clubbing, No cyanosis, No edema, Capillary Refill Less than 3 Seconds Skin: No rashes, No breakdown Musculoskeletal: No Tenderness to Palpation of Joints or Extremities Neurological: Cranial nerves II-XII grossly intact, Neuro grossly intact Psych/Mental Status: Normal Affect, Appropriate Vital Signs Temp Pulse Resp BP Pulse Ox 98.3 F 84 18 112/46 L 94 12/07/17 10:45 12/07/17 11:09 12/07/17 10:45 12/07/17 10:45 12/07/17 10:45 Oxygen Flow Rate (L/min) 2 Oxygen Delivery Method Nasal Cannula Weight: 93.1 kg Body Mass Index (BMI) 31.1 Intake and Output for Last 24 Hours 12/05/17 12/06/17 12/07/17 23:59 23:59 23:59 Intake Total 1320 / 1320 220 / 220 Output Total 700 / 700 400 / 400 Balance 620 / 620 -180 / -180 Laboratory Tests Past 24 Hrs 12/07/17 12/07/17 05:05 05:05 WBC 9.6 RBC 4.20 L Hgb 13.0 Hct 37.9 L MCV 90.2 MCH 31.0 MCHC 34.3 RDW 13.9 RDW Differential 45.2 H Plt Count 263 MPV 9.7 Sodium 136 Potassium 4.4 Chloride 100 Carbon Dioxide 26.0 Anion Gap 10 BUN 38 H Creatinine 1.64 H Estim Creat Clear Calc 42.87 Est GFR (MDRD) Af Amer 54 L Est GFR (MDRD) Non-Af 45 L BUN/Creatinine Ratio 23.2 H Glucose 231 H Calcium 8.8 POC Glucose 12/07/17 12/07/17 12/06/17 11:02 06:52 21:07 POC Glucose 174 H 223 H 234 H 12/06/17 17:04 POC Glucose 196 H Medical Necessity - Tobacco Use Smoking Status: Former smoker Assessment/Plan Active and Suspected Problems (Last Reviewed 08/25/17 @ 12:41 by Tara Baxter) Acute hypoxemic respiratory failure (Acute) Patient is a 67-year-old male admitted 12/06/2017 due to shortness of breath. He has a past medical history of CAD, type 2 diabetes mellitus, hypertension, hyperlipidemia, GERD, V. tach status post AICD, ischemic cardiomyopathy, chronic systolic CHF, chronic kidney disease stage III, chronic back pain with degenerative cervical disc disease, sciatica, chronic bronchitis, nicotine dependence, COPD, obesity. 1. Acute on chronic back pain-reported history of degenerative cervical disc disease, sciatica. No previous imaging in our records or outside records. Patient states he had an MRI at [facility] facility in the past. Request records. Obtain MRI lumbar and thoracic spine if possible given patient's AICD. Consult Dr. Gamez. Continue current pain regimen. PT/OT. Suspect possible pain seeking behavior. Patient states he prefers Dilaudid. 2. Shortness of breath-resolved. Recent discharge for acute bronchitis and COPD exacerbation 12/03/2017. Patient follows with Dr. Pop, pulmonary medicine. Continue previously prescribed doxycycline and prednisone taper regimen. Continue albuterol and DuoNeb aerosols. Complete walking pulse ox. Wean oxygen as tolerated to maintain O2 at or above 90%. Lungs are clear at time of examination. Patient denies further shortness of breath. Denies cough , fever, chills. 3. Acute kidney injury on chronic kidney disease stage III-decrease Lasix regimen. Monitor BMP. Patient has been seen by Dr. Edmond during previous admission. Consider consult if no improvement of creatinine. 4. Chronic COPD/chronic bronchitis-no acute exacerbation. Continue current treatment as noted above. 5. Chronic systolic CHF-no acute exacerbation. Echocardiogram December 03, 2017 showed an EF of 25%, stage I diastolic dysfunction, mild aortic stenosis. 6. History of V. tach/ischemic cardiomyopathy-status post AICD. 7. Hypertension-stable, continue current regimen. 8. Hyperlipidemia-continue statin. 9. Type 2 diabetes [id number] before meals at bedtime with sliding scale insulin. 10. CAD-recent stress test 12/03/2017 without evidence of ischemia. Continue home regimen including Plavix, Imdur, metoprolol, statin. 11. Nicotine dependence-encourage smoking cessation. 12. Obesity-encouraged diet and lifestyle modifications. 13. GERD-continue PPI. DVT prophylaxis-Lovenox subcu. This patient was seen by TISH Kerns under the supervision of Dr. Lara. <Malaika Lara - Last Filed: 12/07/17 15:34> - Physical Exam Vital Signs Temp Pulse Resp BP Pulse Ox 98.3 F 89 18 112/46 L 94 12/07/17 10:45 12/07/17 15:03 12/07/17 10:45 12/07/17 10:45 12/07/17 10:45 Oxygen Flow Rate (L/min) 2 Oxygen Delivery Method Nasal Cannula Weight: 93.1 kg Body Mass Index (BMI) 31.1 Intake and Output for Last 24 Hours 12/05/17 12/06/17 12/07/17 23:59 23:59 23:59 Intake Total 1320 / 1320 920 / 920 Output Total 700 / 700 400 / 400 Balance 620 / 620 520 / 520 Laboratory Tests Past 24 Hrs 12/07/17 12/07/17 05:05 05:05 WBC 9.6 RBC 4.20 L Hgb 13.0 Hct 37.9 L MCV 90.2 MCH 31.0 MCHC 34.3 RDW 13.9 RDW Differential 45.2 H Plt Count 263 MPV 9.7 Sodium 136 Potassium 4.4 Chloride 100 Carbon Dioxide 26.0 Anion Gap 10 BUN 38 H Creatinine 1.64 H Estim Creat Clear Calc 42.87 Est GFR (MDRD) Af Amer 54 L Est GFR (MDRD) Non-Af 45 L BUN/Creatinine Ratio 23.2 H Glucose 231 H Calcium 8.8 POC Glucose 12/07/17 12/07/17 12/06/17 11:02 06:52 21:07 POC Glucose 174 H 223 H 234 H 12/06/17 17:04 POC Glucose 196 H Assessment/Plan Patient was seen and examined independently. I agree with the above interval history physical exam and assessment and plan as outlined by nurse practitioner Alyssa Corbett. Patient complains of severe back pain. Denies any numbness or tingling or weakness of the lower extremities. Admits to having had an MRI about a year ago and also hospital. Denies any fever or chills. Vitals reviewed and are stable. Physical exam is significant for tenderness over the cervical, thoracic and lumbar spine. Otherwise no wheezes on exam. Medications reviewed. We will consult pain management, Dr. Evans. Will get an MRI of the thoracic and lumbar spine. Continue current pain medications Code Visit Inpatient E&M: 72383 Subs Hosp L2
[2017-12-07] MEDS: Lidocaine 5% Patch 2 PATCH TOPICAL (14:44)
--- NOTE | 2017-12-07 15:03 | CASEMGMT ---
Readmission Chart Review-see assessment completed by this RN CM on 12/02/17. Pt returns for dyspnea and chest pain. Per Dr. Lara, pt is repeatedly asking for Dilaudid but none has been ordered at this time, only Morphine. MRI added on today for pt c/o back pain. CM to follow for any further discharge planning/needs. S[place]en LEONIE JEAN-BAPTISTE
[2017-12-07 16:31] LABS: Bedside Glucose 190 mg/dL (70-110)
--- NOTE | 2017-12-07 19:30 | NURSING ---
Dr. Evans here to see pt. Verbal orders given for CT scan w/o contrast lumbar spine and Dilaudid 0.5 mg IV Q 4 hours prn
--- NOTE | 2017-12-07 19:50 | CT_ITS ---
STUDY: CT LUMBAR SPINE WITHOUT CONTRAST REASON FOR EXAM: Male, 67 years old. Lower back pain RADIATION DOSAGE (If Supplied By Facility): CTDIvol = ( 25.19 ) mGy, DLP = ( 618.33 ) mGycm TECHNIQUE: The patient was scanned in a multi detector CT scanner. High resolution transaxial imaging was performed. Images were obtained through the lumbar spine. Sagittal and coronal images were reconstructed. Individualized dose optimization techniques were used for this CT. COMPARISON: None FINDINGS: There is no evidence of fracture or dislocation in the lumbar spine. The vertebral body heights are well-maintained. There are moderate multilevel degenerative changes with facet hypertrophy, disc space narrowing and small osteophytes. The visualized paraspinal soft tissues are within normal limits. CT/Spine Lumbar without Contrast IMPRESSION: No fracture or dislocation in the lumbar spine. Moderate degenerative change. Electronically Signed: Mehdi Campa, at 21:09 EDT Tel , Service support ,
[2017-12-07] MEDS: HYDROmorphone 0.5 MG/0.5 ML SYRINGE IV (22:28)
[2017-12-07] MEDS: Rosuvastatin 20 MG Tablet 40 MG PO (22:59)
[2017-12-07 23:25] LABS: Bedside Glucose 127 mg/dL (70-110)
[2017-12-08] VITALS (9 sets, daily range): BP systolic 101–103; BP diastolic 61–66; PULSE 64–82; RESP 16–20; TEMP 36.4–36.6; O2SAT 94–96
[2017-12-08] MEDS: Morphine 4 MG/ML Syringe IV ×2 (02:15→08:22)
[2017-12-08] MEDS: 0.9% NaCl Peripheral Flush Adult/Peds IV ×5 (02:16→11:28)
[2017-12-08] MEDS: Ipratropium/Albuterol Sulfate 3 ML AMPUL.NEB INHALATION ×3 (03:28→10:50)
[2017-12-08] MEDS: HYDROmorphone 0.5 MG/0.5 ML SYRINGE IV ×2 (06:01→11:28)
[2017-12-08 06:49] LABS: Anion Gap 8 (5-15); BUN 39 mg/dL (7-18); BUN/Creat Ratio 26.4 RATIO (10-20); Calcium,Total 9.2 mg/dL (8.5-10.1); Chloride 100 mmol/L (98-107); Creatinine, Serum 1.48 mg/dL (0.70-1.30); EST Glomerular Filtration Rate 50 mL/min (>60); Est Glom Filt Rate - Afr Amer 61 mL/min (>60); Glucose 86 mg/dL (74-106); Potassium 4.1 mmol/L (3.5-5.1); Sodium Level 137 mmol/L (136-145)
[2017-12-08 07:01] LABS: Bedside Glucose 123 mg/dL (70-110)
[2017-12-08] MEDS: predniSONE 10 MG Tablet 40 MG PO (08:21)
[2017-12-08] MEDS: Allopurinol 300 MG Tablet PO (08:22)
[2017-12-08] MEDS: Doxycycline 100 MG CAPSULE PO (10:02)
[2017-12-08] MEDS: Enoxaparin 40 MG/0.4 ML Syringe SC (10:02)
[2017-12-08] MEDS: Furosemide 20 MG Tablet PO (10:02)
[2017-12-08] MEDS: Spironolactone 25 MG Tablet PO (10:02)
[2017-12-08] MEDS: Metoprolol(XL)Succ 100 MG Tablet PO (10:02)
[2017-12-08] MEDS: guaiFENesin 1,200 MG Tablet 1200 MG PO (10:02)
[2017-12-08] MEDS: Clopidogrel Bisulfate 75 MG Tablet PO (10:02)
[2017-12-08] MEDS: Fenofibrate 145 MG Tablet PO (10:02)
[2017-12-08] MEDS: Pantoprazole Sodium 40 MG Tablet PO (10:02)
[2017-12-08] MEDS: Isosorbide Mononitrate 30 MG Tablet PO (10:02)
--- NOTE | 2017-12-08 10:20 | PCM.DC ---
- Discharge Diagnoses Current Active Problems: Current Active and Chronic Problems (Last Reviewed 08/25/17 @ 12:41 by Tara Baxter) Acute hypoxemic respiratory failure (Acute) You will use the following diet at home:: Cardiac Discharge Activity: Return to Normal Activity Call your doctor if you observe: Shortness of breath, Dizziness, Fainting spells, Chest pain Allergies/Adverse Reactions: Allergies chlorpromazine HCl [From Thorazine] Allergy (Severe, Verified 12/06/17 11:20) Hives PER PATIENT tramadol HCl [From Ultram] Allergy (Severe, Verified 12/06/17 11:20) Hives PER PATIENT codeine Allergy (Intermediate, Verified 12/06/17 11:20) Hives atorvastatin Adverse Reaction (Intermediate, Verified 12/06/17 11:20) Other LEG PAIN/CRAMPS naproxen Adverse Reaction (Verified 12/06/17 11:20) Upset Stomach Medications to take at Discharge Nitroglycerin [Nitrostat] 0.4 mg SUBLINGUAL Q5M PRN 09/17/15 Isosorbide Mononitrate [Imdur] 30 mg PO DAILY 02/18/17 Albuterol Aerosols [Ventolin Aerosols] 2.5 mg INHALATION Q4H PRN PRN 02/23/17 Ondansetron [Zofran Odt] 4 mg PO Q4H PRN PRN #10 tab.rapdis 02/23/17 Allopurinol 300 mg PO DAILY 05/05/17 Clopidogrel Bisulfate [Plavix] 75 mg PO DAILY #30 tab 06/17/17 metoprolol succinate ER 50 mg tablet,extended release 24 hr 100 mg PO DAILY 07/09/17 albuterol sulfate HFA 90 mcg/actuation aerosol inhaler 2 puff INHALATION Q4H PRN g 07/31/17 fenofibrate nanocrystallized 145 mg tablet 145 mg PO DAILY 07/31/17 nicotine 14 mg/24 hr daily transdermal patch 21 mg TRANSDERMAL Q24H 07/31/17 rosuvastatin 40 mg tablet 40 mg PO DAILY 07/31/17 spironolactone 25 mg tablet 25 mg PO QAM 07/31/17 Umeclidinium Brm/Vilanterol Tr [Anoro Ellipta 62.5-25 Mcg INH] 1 inh INHALATION DAILY 09/03/17 Pantoprazole Sodium [Protonix] 40 mg PO DAILY 11/15/17 Acetaminophen [Tylenol Tablet] 650 mg PO Q6H PRN PRN #0 tablet 12/03/17 Guaifenesin [Mucinex] 1,200 mg PO BID #14 tab 12/03/17 Oxycodone HCl/Acetaminophen [Percocet 7.5-325 mg Tablet] 1 tab PO Q6H PRN PRN 5 Days #15 tab 12/03/17 Doxycycline 100 mg PO BID #14 cap 12/08/17 Furosemide [Lasix] 20 mg PO DAILY #30 tab 12/08/17 Prednisone See Taper PO UD #26 tab 12/08/17 The following prescriptions were given: Furosemide [Lasix] 20 mg PO DAILY #30 tab Prednisone See Taper PO UD #26 tab Primary Care Physician: Juan De La Vega III, MD [Primary Care Provider] - Please follow up with your Primary Care Physician in: 1 Week Please Follow Up With: Nicole Evans MD When: Call to schedule prior to DC, soonest available. Please Follow Up With: aCrlos Pop DO When: 1 Week Please Follow Up With: Sandy Edmond DO When: 1-2 Weeks Please Follow Up With: Richard Park NP-C When: As scheduled 12/23/18 Proposed Discharge Date: 12/08/17
--- NOTE | 2017-12-08 10:26 | DCINST_ITS ---
- Discharge Diagnoses Current Active Problems: Current Active and Chronic Problems (Last Reviewed 08/25/17 @ 12:41 by Tara Baxter) Acute hypoxemic respiratory failure (Acute) You will use the following diet at home:: Cardiac Discharge Activity: Return to Normal Activity Call your doctor if you observe: Shortness of breath, Dizziness, Fainting spells , Chest pain Allergies/Adverse Reactions: Allergies chlorpromazine HCl [From Thorazine] Allergy (Severe, Verified 12/06/17 11:20) Hives PER PATIENT tramadol HCl [From Ultram] Allergy (Severe, Verified 12/06/17 11:20) Hives PER PATIENT codeine Allergy (Intermediate, Verified 12/06/17 11:20) Hives atorvastatin Adverse Reaction (Intermediate, Verified 12/06/17 11:20) Other LEG PAIN/CRAMPS naproxen Adverse Reaction (Verified 12/06/17 11:20) Upset Stomach Medications to take at Discharge Nitroglycerin [Nitrostat] 0.4 mg SUBLINGUAL Q5M PRN 09/17/15 Isosorbide Mononitrate [Imdur] 30 mg PO DAILY 02/18/17 Albuterol Aerosols [Ventolin Aerosols] 2.5 mg INHALATION Q4H PRN PRN 02/23/17 Ondansetron [Zofran Odt] 4 mg PO Q4H PRN PRN #10 tab.rapdis 02/23/17 Allopurinol 300 mg PO DAILY 05/05/17 Clopidogrel Bisulfate [Plavix] 75 mg PO DAILY #30 tab 06/17/17 metoprolol succinate ER 50 mg tablet,extended release 24 hr 100 mg PO DAILY albuterol sulfate HFA 90 mcg/actuation aerosol inhaler 2 puff INHALATION Q4H PRN g 07/31/17 fenofibrate nanocrystallized 145 mg tablet 145 mg PO DAILY 07/31/17 nicotine 14 mg/24 hr daily transdermal patch 21 mg TRANSDERMAL Q24H 07/31/17 rosuvastatin 40 mg tablet 40 mg PO DAILY 07/31/17 spironolactone 25 mg tablet 25 mg PO QAM 07/31/17 Umeclidinium Brm/Vilanterol Tr [Anoro Ellipta 62.5-25 Mcg INH] 1 inh INHALATION DAILY 09/03/17 Pantoprazole Sodium [Protonix] 40 mg PO DAILY 11/15/17 Acetaminophen [Tylenol Tablet] 650 mg PO Q6H PRN PRN #0 tablet 12/03/17 Guaifenesin [Mucinex] 1,200 mg PO BID #14 tab 12/03/17 Oxycodone HCl/Acetaminophen [Percocet 7.5-325 mg Tablet] 1 tab PO Q6H PRN PRN 5 Days #15 tab 12/03/17 Doxycycline 100 mg PO BID #14 cap 12/08/17 Furosemide [Lasix] 20 mg PO DAILY #30 tab 12/08/17 Prednisone See Taper PO UD #26 tab 12/08/17 The following prescriptions were given: Furosemide [Lasix] 20 mg PO DAILY #30 tab Prednisone See Taper PO UD #26 tab Primary Care Physician: Juan De La Vega III, MD [Primary Care Provider] - Please follow up with your Primary Care Physician in: 1 Week Please Follow Up With: Nicole Evans MD When: Call to schedule prior to DC, soonest available. Please Follow Up With: Carlos Pop DO When: 1 Week Please Follow Up With: Sandy Edmond DO When: 1-2 Weeks Please Follow Up With: Richard Park NP-C When: As scheduled 12/23/18 Proposed Discharge Date: 12/08/17
--- NOTE | 2017-12-08 10:26 | PCM.DC.SUM ---
<Alyssa Corbett - Last Filed: 12/08/17 10:32> Discharge Date and Diagnosis Date of Admission: 12/06/17 Date of Discharge: 12/08/17 - Primary Discharge Diagnosis Active and Suspected Problems (Last Reviewed 08/25/17 @ 12:41 by Tara Baxter) 1. Acute on chronic back pain 2. Acute kidney injury on chronic kidney disease stage III 3. Suspected pain seeking behavior - Secondary Discharge Diagnosis Chronic Problems (Last Reviewed 08/25/17 @ 12:41 by Tara Baxter) Musculoskeletal chest pain (Chronic) COPD (chronic obstructive pulmonary disease) (Chronic) Obesity (BMI 30.0-34.9) (Chronic) Chest pain (Chronic) Nicotine dependence (Chronic) Chronic bronchitis (Chronic) Sciatica (Chronic) Gout (Chronic) Degenerative cervical disc (Chronic) Claudication (Chronic) Chronic back pain (Chronic) Presence of automatic implantable cardioverter-defibrillator (Chronic) Chronic renal failure, stage 3 (moderate) (Chronic) Chronic systolic (congestive) heart failure (Chronic) Stented coronary artery (Chronic ~12/2016) has had 7 stents as of 06/15/17 Ischemic cardiomyopathy (Chronic) 25% ejection fraction in November 2016 V-tach (Chronic) has an AICD Benign essential hypertension (Chronic) Gastroesophageal reflux disease (Chronic) Hyperlipidemia (Chronic) Type 2 diabetes mellitus (Chronic) Morbid obesity (Chronic) CAD (coronary artery disease) (Chronic) Hospital Course and Treatment Imaging Results: Diagnostic Data Chest X-Ray 12/06/17 11:45 IMPRESSION: No acute thoracic pathology. Electronically Signed: Mehdi Campa, at 12:12 EDT Tel , Service support , Lumbar Spine CT 12/07/17 19:50 IMPRESSION: No fracture or dislocation in the lumbar spine. Moderate degenerative change. Electronically Signed: Mehdi Campa, at 21:09 EDT Tel , Service support , Dr. Evans- Pain management Operations: None Procedures: None Summary of Care Provided: Patient is a 67-year-old male admitted 12/06/2017 due to shortness of breath. He has a past medical history of CAD, type 2 diabetes mellitus, hypertension, hyperlipidemia, GERD, V. tach status post AICD, ischemic cardiomyopathy, chronic systolic CHF, chronic kidney disease stage III, chronic back pain with degenerative cervical disc disease, sciatica, chronic bronchitis, nicotine dependence, COPD, obesity. 1. Acute on chronic back pain-reported history of degenerative cervical disc disease, sciatica. No previous imaging in our records or outside records. Patient states he had an MRI at [facility] in the past. Records were requested but not able to be obtained. Unable to obtain MRI of lumbar and thoracic spine given patient's AICD. Dr. Gamez consulted who patient will follow up with as outpatient for pain management. Patient requesting Dilaudid during admission. Suspect pain seeking behavior. Lumbar spine CT showed no fracture or dislocation in the lumbar spine. Moderate degenerative changes. Patient will continue home Percocet regimen and follow-up as outpatient with pain management. 2. Shortness of breath-resolved. Recent discharge for acute bronchitis and COPD exacerbation 12/03/2017. Patient follows with Dr. Pop, pulmonary medicine. Continue previously prescribed doxycycline and prednisone taper regimen. Walking pulse ox completed prior to discharge and patient did not qualify for home oxygen. Oxygen stable on room air. Patient denies further shortness of breath, fever, chills. Continue outpatient follow-up with Dr. Pop. 3. Acute kidney injury on chronic kidney disease stage III-decrease home Lasix regimen to 20 mg daily. Creatinine improved with decreased Lasix dosing. Patient has been seen by Dr. Edmond during previous admission. Follow-up with Dr. Edmond in 1-2 weeks. 4. Chronic COPD/chronic bronchitis-no acute exacerbation. 5. Chronic systolic CHF-no acute exacerbation. Echocardiogram December 03, 2017 showed an EF of 25%, stage I diastolic dysfunction, mild aortic stenosis. 6. History of V. tach/ischemic cardiomyopathy-status post AICD. 7. Hypertension-stable, continue current regimen. 8. Hyperlipidemia-continue statin. 9. Type 2 diabetes cyweiznd-Ghle-[id number] before meals at bedtime with sliding scale insulin. 10. CAD-recent stress test 12/03/2017 without evidence of ischemia. Continue home regimen including Plavix, Imdur, metoprolol, statin. 11. Nicotine dependence-encourage smoking cessation. 12. Obesity-encouraged diet and lifestyle modifications. 13. GERD-continue PPI. General: Alert, Oriented x3, Cooperative HEENT: Atraumatic, PERRLA, EOMI, Normocephalic Neck: Supple, No JVD, Negative Carotid Bruits Lungs: Clear to auscultation, Diminished Cardiovascular: Regular rate, No murmurs Abdomen: Bowel Sounds Present, Soft, Non Tender, Non-Distended, Obese Extremities: No clubbing, No cyanosis, No edema, Capillary Refill Less than 3 Seconds Skin: No rashes, No breakdown Musculoskeletal: No Tenderness to Palpation of Joints or Extremities Neurological: Cranial nerves II-XII grossly intact, Neuro grossly intact Psych/Mental Status: Normal Affect, Appropriate Patient seen and examined prior to discharge. Physical assessment as noted above. Patient stable for discharge home with the recommendations as noted above. This patient was seen by TISH Kerns under the supervision of Dr. Lara. Discharge Diet: Low fat/ Low Cholesterol, 8 Cup Fluid Restriciton, 2000 mg Sodium Diet Discharge Activity: Return to Normal Activity Call your doctor if you observe: Shortness of breath, Dizziness, Fainting spells, Chest pain Home Medications: Medications to take at Discharge Nitroglycerin [Nitrostat] 0.4 mg SUBLINGUAL Q5M PRN 09/17/15 Isosorbide Mononitrate [Imdur] 30 mg PO DAILY 02/18/17 Albuterol Aerosols [Ventolin Aerosols] 2.5 mg INHALATION Q4H PRN PRN 02/23/17 Ondansetron [Zofran Odt] 4 mg PO Q4H PRN PRN #10 tab.rapdis 02/23/17 Allopurinol 300 mg PO DAILY 05/05/17 Clopidogrel Bisulfate [Plavix] 75 mg PO DAILY #30 tab 06/17/17 metoprolol succinate ER 50 mg tablet,extended release 24 hr 100 mg PO DAILY 07/09/17 albuterol sulfate HFA 90 mcg/actuation aerosol inhaler 2 puff INHALATION Q4H PRN g 07/31/17 fenofibrate nanocrystallized 145 mg tablet 145 mg PO DAILY 07/31/17 nicotine 14 mg/24 hr daily transdermal patch 21 mg TRANSDERMAL Q24H 07/31/17 rosuvastatin 40 mg tablet 40 mg PO DAILY 07/31/17 spironolactone 25 mg tablet 25 mg PO QAM 07/31/17 Umeclidinium Brm/Vilanterol Tr [Anoro Ellipta 62.5-25 Mcg INH] 1 inh INHALATION DAILY 09/03/17 Pantoprazole Sodium [Protonix] 40 mg PO DAILY 11/15/17 Acetaminophen [Tylenol Tablet] 650 mg PO Q6H PRN PRN #0 tablet 12/03/17 Guaifenesin [Mucinex] 1,200 mg PO BID #14 tab 12/03/17 Oxycodone HCl/Acetaminophen [Percocet 7.5-325 mg Tablet] 1 tab PO Q6H PRN PRN 5 Days #15 tab 12/03/17 Doxycycline 100 mg PO BID #14 cap 12/08/17 Furosemide [Lasix] 20 mg PO DAILY #30 tab 12/08/17 Prednisone See Taper PO UD #26 tab 12/08/17 Following Prescrptions Were Given to Patient: Furosemide [Lasix] 20 mg PO DAILY #30 tab Prednisone See Taper PO UD #26 tab Primary Care Physician: Juan De La Vega III, MD [Primary Care Provider] - Please follow up with your Primary Care Physician in: 1 Week Please Follow Up With: Nicole Evans MD When: Call to schedule prior to DC, soonest available. Please Follow Up With: Carlos Pop DO When: 1 Week Please Follow Up With: Sandy Edmond DO When: 1-2 Weeks Please Follow Up With: Richard Park NP-C When: As scheduled 12/23/18 Disposition: Home Minutes spent on discharge:: 35 Patient Condition:: Stable Medical Necessity - Tobacco Use Smoking Status: Former smoker Meaningful Use Info Meaningful Use Diagnoses (Choose all that apply): None applicable <Marco,[place] - Last Filed: 12/08/17 11:10> Discharge Date and Diagnosis - Secondary Discharge Diagnosis Chronic Problems (Last Reviewed 08/25/17 @ 12:41 by Tara Baxter) Musculoskeletal chest pain (Chronic) COPD (chronic obstructive pulmonary disease) (Chronic) Obesity (BMI 30.0-34.9) (Chronic) Chest pain (Chronic) Nicotine dependence (Chronic) Chronic bronchitis (Chronic) Sciatica (Chronic) Gout (Chronic) Degenerative cervical disc (Chronic) Claudication (Chronic) Chronic back pain (Chronic) Presence of automatic implantable cardioverter-defibrillator (Chronic) Chronic renal failure, stage 3 (moderate) (Chronic) Chronic systolic (congestive) heart failure (Chronic) Stented coronary artery (Chronic ~12/2016) has had 7 stents as of 06/15/17 Ischemic cardiomyopathy (Chronic) 25% ejection fraction in November 2016 V-tach (Chronic) has an AICD Benign essential hypertension (Chronic) Gastroesophageal reflux disease (Chronic) Hyperlipidemia (Chronic) Type 2 diabetes mellitus (Chronic) Morbid obesity (Chronic) CAD (coronary artery disease) (Chronic) Hospital Course and Treatment Summary of Care Provided: The patient is a 67 year old M [] Code Visit Inpatient E&M: 84025 Disch Hosp
--- NOTE | 2017-12-08 10:31 | DS.PCM_ITS ---
<Alyssa Corbett - Last Filed: 12/08/17 10:32> Discharge Date and Diagnosis Date of Admission: 12/06/17 Date of Discharge: 12/08/17 - Primary Discharge Diagnosis Active and Suspected Problems (Last Reviewed 08/25/17 @ 12:41 by Tara Baxter) 1. Acute on chronic back pain 2. Acute kidney injury on chronic kidney disease stage III 3. Suspected pain seeking behavior - Secondary Discharge Diagnosis Chronic Problems (Last Reviewed 08/25/17 @ 12:41 by Tara Baxter) Musculoskeletal chest pain (Chronic) COPD (chronic obstructive pulmonary disease) (Chronic) Obesity (BMI 30.0-34.9) (Chronic) Chest pain (Chronic) Nicotine dependence (Chronic) Chronic bronchitis (Chronic) Sciatica (Chronic) Gout (Chronic) Degenerative cervical disc (Chronic) Claudication (Chronic) Chronic back pain (Chronic) Presence of automatic implantable cardioverter-defibrillator (Chronic) Chronic renal failure, stage 3 (moderate) (Chronic) Chronic systolic (congestive) heart failure (Chronic) Stented coronary artery (Chronic ~12/2016) has had 7 stents as of 06/15/17 Ischemic cardiomyopathy (Chronic) 25% ejection fraction in November 2016 V-tach (Chronic) has an AICD Benign essential hypertension (Chronic) Gastroesophageal reflux disease (Chronic) Hyperlipidemia (Chronic) Type 2 diabetes mellitus (Chronic) Morbid obesity (Chronic) CAD (coronary artery disease) (Chronic) Hospital Course and Treatment Imaging Results: Diagnostic Data Chest X-Ray 12/06/17 11:45 IMPRESSION: No acute thoracic pathology. Electronically Signed: Mehdi Campa, at 12:12 EDT Tel , Service support , Lumbar Spine CT 12/07/17 19:50 IMPRESSION: No fracture or dislocation in the lumbar spine. Moderate degenerative change. Electronically Signed: Mehdi Campa, at 21:09 EDT Tel , Service support , Dr. Evans- Pain management Operations: None Procedures: None Summary of Care Provided: Patient is a 67-year-old male admitted 12/06/2017 due to shortness of breath. He has a past medical history of CAD, type 2 diabetes mellitus, hypertension, hyperlipidemia, GERD, V. tach status post AICD, ischemic cardiomyopathy, chronic systolic CHF, chronic kidney disease stage III, chronic back pain with degenerative cervical disc disease, sciatica, chronic bronchitis, nicotine dependence, COPD, obesity. 1. Acute on chronic back pain-reported history of degenerative cervical disc disease, sciatica. No previous imaging in our records or outside records. Patient states he had an MRI at [facility] in the past. Records were requested but not able to be obtained. Unable to obtain MRI of lumbar and thoracic spine given patient's AICD. Dr. Gamez consulted who patient will follow up with as outpatient for pain management. Patient requesting Dilaudid during admission. Suspect pain seeking behavior. Lumbar spine CT showed no fracture or dislocation in the lumbar spine. Moderate degenerative changes. Patient will continue home Percocet regimen and follow-up as outpatient with pain management. 2. Shortness of breath-resolved. Recent discharge for acute bronchitis and COPD exacerbation 12/03/2017. Patient follows with Dr. Pop, pulmonary medicine. Continue previously prescribed doxycycline and prednisone taper regimen. Walking pulse ox completed prior to discharge and patient did not qualify for home oxygen. Oxygen stable on room air. Patient denies further shortness of breath, fever, chills. Continue outpatient follow-up with Dr. Pop. 3. Acute kidney injury on chronic kidney disease stage III-decrease home Lasix regimen to 20 mg daily. Creatinine improved with decreased Lasix dosing. Patient has been seen by Dr. Edmond during previous admission. Follow-up with Dr. Edmond in 1-2 weeks. 4. Chronic COPD/chronic bronchitis-no acute exacerbation. 5. Chronic systolic CHF-no acute exacerbation. Echocardiogram December 03, 2017 showed an EF of 25%, stage I diastolic dysfunction, mild aortic stenosis. 6. History of V. tach/ischemic cardiomyopathy-status post AICD. 7. Hypertension-stable, continue current regimen. 8. Hyperlipidemia-continue statin. 9. Type 2 diabetes [id number]-[id number]-[id number] before meals at bedtime with sliding scale insulin. 10. CAD-recent stress test 12/03/2017 without evidence of ischemia. Continue home regimen including Plavix, Imdur, metoprolol, statin. 11. Nicotine dependence-encourage smoking cessation. 12. Obesity-encouraged diet and lifestyle modifications. 13. GERD-continue PPI. General: Alert, Oriented x3, Cooperative HEENT: Atraumatic, PERRLA, EOMI, Normocephalic Neck: Supple, No JVD, Negative Carotid Bruits Lungs: Clear to auscultation, Diminished Cardiovascular: Regular rate, No murmurs Abdomen: Bowel Sounds Present, Soft, Non Tender, Non-Distended, Obese Extremities: No clubbing, No cyanosis, No edema, Capillary Refill Less than 3 Seconds Skin: No rashes, No breakdown Musculoskeletal: No Tenderness to Palpation of Joints or Extremities Neurological: Cranial nerves II-XII grossly intact, Neuro grossly intact Psych/Mental Status: Normal Affect, Appropriate Patient seen and examined prior to discharge. Physical assessment as noted above. Patient stable for discharge home with the recommendations as noted above. This patient was seen by TISH Kerns under the supervision of Dr. Lara. Discharge Diet: Low fat/ Low Cholesterol, 8 Cup Fluid Restriciton, 2000 mg Sodium Diet Discharge Activity: Return to Normal Activity Call your doctor if you observe: Shortness of breath, Dizziness, Fainting spells , Chest pain Home Medications: Medications to take at Discharge Nitroglycerin [Nitrostat] 0.4 mg SUBLINGUAL Q5M PRN 09/17/15 Isosorbide Mononitrate [Imdur] 30 mg PO DAILY 02/18/17 Albuterol Aerosols [Ventolin Aerosols] 2.5 mg INHALATION Q4H PRN PRN 02/23/17 Ondansetron [Zofran Odt] 4 mg PO Q4H PRN PRN #10 tab.rapdis 02/23/17 Allopurinol 300 mg PO DAILY 05/05/17 Clopidogrel Bisulfate [Plavix] 75 mg PO DAILY #30 tab 06/17/17 metoprolol succinate ER 50 mg tablet,extended release 24 hr 100 mg PO DAILY albuterol sulfate HFA 90 mcg/actuation aerosol inhaler 2 puff INHALATION Q4H PRN g 07/31/17 fenofibrate nanocrystallized 145 mg tablet 145 mg PO DAILY 07/31/17 nicotine 14 mg/24 hr daily transdermal patch 21 mg TRANSDERMAL Q24H 07/31/17 rosuvastatin 40 mg tablet 40 mg PO DAILY 07/31/17 spironolactone 25 mg tablet 25 mg PO QAM 07/31/17 Umeclidinium Brm/Vilanterol Tr [Anoro Ellipta 62.5-25 Mcg INH] 1 inh INHALATION DAILY 09/03/17 Pantoprazole Sodium [Protonix] 40 mg PO DAILY 11/15/17 Acetaminophen [Tylenol Tablet] 650 mg PO Q6H PRN PRN #0 tablet 12/03/17 Guaifenesin [Mucinex] 1,200 mg PO BID #14 tab 12/03/17 Oxycodone HCl/Acetaminophen [Percocet 7.5-325 mg Tablet] 1 tab PO Q6H PRN PRN 5 Days #15 tab 12/03/17 Doxycycline 100 mg PO BID #14 cap 12/08/17 Furosemide [Lasix] 20 mg PO DAILY #30 tab 12/08/17 Prednisone See Taper PO UD #26 tab 12/08/17 Following Prescrptions Were Given to Patient: Furosemide [Lasix] 20 mg PO DAILY #30 tab Prednisone See Taper PO UD #26 tab Primary Care Physician: Juan De La Vega III, MD [Primary Care Provider] - Please follow up with your Primary Care Physician in: 1 Week Please Follow Up With: Nicole Evans MD When: Call to schedule prior to DC, soonest available. Please Follow Up With: Carlos Pop DO When: 1 Week Please Follow Up With: Sandy Edmond DO When: 1-2 Weeks Please Follow Up With: Richard Park NP-C When: As scheduled 12/23/18 Disposition: Home Minutes spent on discharge:: 35 Patient Condition:: Stable Medical Necessity - Tobacco Use Smoking Status: Former smoker Meaningful Use Info Meaningful Use Diagnoses (Choose all that apply): None applicable <Marco,[place] - Last Filed: 12/08/17 11:10> Discharge Date and Diagnosis - Secondary Discharge Diagnosis Chronic Problems (Last Reviewed 08/25/17 @ 12:41 by Tara Baxter) Musculoskeletal chest pain (Chronic) COPD (chronic obstructive pulmonary disease) (Chronic) Obesity (BMI 30.0-34.9) (Chronic) Chest pain (Chronic) Nicotine dependence (Chronic) Chronic bronchitis (Chronic) Sciatica (Chronic) Gout (Chronic) Degenerative cervical disc (Chronic) Claudication (Chronic) Chronic back pain (Chronic) Presence of automatic implantable cardioverter-defibrillator (Chronic) Chronic renal failure, stage 3 (moderate) (Chronic) Chronic systolic (congestive) heart failure (Chronic) Stented coronary artery (Chronic ~12/2016) has had 7 stents as of 06/15/17 Ischemic cardiomyopathy (Chronic) 25% ejection fraction in November 2016 V-tach (Chronic) has an AICD Benign essential hypertension (Chronic) Gastroesophageal reflux disease (Chronic) Hyperlipidemia (Chronic) Type 2 diabetes mellitus (Chronic) Morbid obesity (Chronic) CAD (coronary artery disease) (Chronic) Hospital Course and Treatment Summary of Care Provided: The patient is a 67 year old M [] Code Visit Inpatient E&M: 05862 Disch Hosp
[2017-12-08 11:26] LABS: Bedside Glucose 205 mg/dL (70-110)
--- NOTE | 2017-12-11 11:48 | CASEMGMT ---
LEONIE JEAN-BAPTISTE DC F/U Phone Call. Intro role of CM to patient via his home phone call. Pt states he is still painful, no significant improvement. States he was able to have prescriptions filled. No questions re: instructions for medications. F/U: pt states he has made f/u appointments and has appointment to see Dr. Evans this afternoon. Pt denied needing assistance/information re: any other dc needs. LEONIE JEAN-BAPTISTE inquired re: his stay and any suggestions. Pt states staff was wonderful, no suggestions. LEONIE JEAN-BAPTISTE thanked pt for using [facility]. Frankie HADLEY BSN ACM
== END 2017-12-08 12:10 | disposition home or self-care (01) | DRG 291 ==
LOC: ED 11:46 → PCU 13:20
PROVIDERS: Nurse Practitioner Family; Admitting Provider Internal Medicine; Emergency Provider Emergency Medicine; Family Provider Family Medicine; PCP Family Medicine; Visit Provider Internal Medicine
DX: I13.0 Hypertensive heart and chronic kidney disease with heart failure and stage 1 through stage 4 chronic kidney disease, or unspecified chronic kidney disease (principal); J96.01 Acute respiratory failure with hypoxia; I50.23 Acute on chronic systolic (congestive) heart failure; J44.1 Chronic obstructive pulmonary disease with (acute) exacerbation; E11.22 Type 2 diabetes mellitus with diabetic chronic kidney disease; I25.10 Atherosclerotic heart disease of native coronary artery without angina pectoris; K21.9 Gastro-esophageal reflux disease without esophagitis; E78.5 Hyperlipidemia, unspecified; M10.9 Gout, unspecified; F17.210 Nicotine dependence, cigarettes, uncomplicated; Z95.810 Presence of automatic (implantable) cardiac defibrillator; M54.9 Dorsalgia, unspecified; Z68.31 Body mass index [BMI] 31.0-31.9, adult; G89.4 Chronic pain syndrome; I25.5 Ischemic cardiomyopathy; E66.01 Morbid (severe) obesity due to excess calories; I35.0 Nonrheumatic aortic (valve) stenosis
CPT/HCPCS: 36415; 71045; 72131; 80048; 82962; 84484; 85025; 85027; 93005; 94002; 94640; 97162; 97802; 99251; 99285; 99406; A4216; G0463; J2405

== ENCOUNTER 2017-12-17 02:51 | Emergency (ER) | payer MEDICARE, MEDICAID, SELFPAY ==
[2017-12-17] VITALS (9 sets, daily range): BP systolic 108–151; BP diastolic 44–86; PULSE 93–108; RESP 16–25; TEMP 37.2; O2SAT 94–97; BMI 33.7
--- NOTE | 2017-12-17 03:07 | EKG12_ITS ---
Test Reason : SHORTNESS OF BREATH Blood Pressure : / mmHG Vent. Rate : 088 BPM Atrial Rate : 088 BPM P-R Int : 144 ms QRS Dur : 096 ms QT Int : 370 ms P-R-T Axes : 061 043 136 degrees QTc Int : 447 ms Normal sinus rhythm with sinus arrhythmia Poor R wave progression ST & T wave abnormality, consider anterolateral ischemia Abnormal ECG Confirmed by BERYL LUNDBERG, MICHELLE ([id number]), newspaper or periodical editor LANDRY YARBROUGH ([id number]) on 12/23/2017 1:33:40 PM Referred By: BRODIE Confirmed By:MICHELLE CORDOBA MD
--- NOTE | 2017-12-17 03:10 | RAD_ITS ---
STUDY: X-RAY CHEST REASON FOR EXAM: Male, 67 years old. Chest pain with cough. Vomiting. TECHNIQUE: Single AP portable view of the chest. COMPARISON: 12/06/2017. FINDINGS: There is a calcified granuloma overlying the right lung base. There are no demonstrated pulmonary infiltrates. There is no demonstrated pleural abnormality. Normal size heart. There is an atrioventricular pacemaker. There are sternotomy wires and surgical clips suggesting previous CABG. Normal mediastinum and serjio. Normal visualized pulmonary arteries. Normal visualized aortic arch and descending thoracic aorta. Normal visualized thoracic spine. Normal visualized ribs, clavicles, and shoulders. There is no demonstrated abnormality of the visualized soft tissue structures of the upper abdomen. RAD/Chest 1 View (Portable) IMPRESSION: No evidence for acute cardiopulmonary pathology. Pacemaker. Electronically Signed: Aleksey Christian MD at 3:45 EDT , Service support ,
--- NOTE | 2017-12-17 03:27 | ED.VISSUMM ---
- ER Visit Summary Date of Service: 12/17/17 Chief Complaint: Nausea, vomiting History of Present Illness: The patient is a 67 M presenting with nausea, vomiting. He also has chest pain with coughing and shortness of breath. He has history of similar symptoms multiple times in the past. He was discharged from the hospital on December 06, 2017. He has a history of CAD, ischemic cardiomyopathy, CHF, COPD, diabetes, hypertension, hypercholesteremia, chronic back pain, chronic kidney disease. He has a defibrillator. He states his chest pain is worsened with cough. He had a stress test earlier this month which showed no evidence of ischemia. Physical Examination: Vitals are stable. Patient is afebrile. Alert no acute distress. HEENT exam is unremarkable. Neck is supple. Lungs are clear and equal bilaterally. Heart is regular rate and rhythm. Abdomen is soft nontender nondistended. Extremities are unremarkable. Skin is warm and dry. No focal neurologic deficit. Remainder of exam is unremarkable. Emergency Department Course and Treatment: EKG is sinus rate of 88 with anterolateral T-wave changes unchanged from previous EKG. he was given morphine, Phenergan. CBC shows a white count of 16.4. Chemistries shows glucose 112, BUN 37, creatinine 1.73. Lipase is normal. Troponin 0.024. This is similar to previous. Chest x-ray shows no acute process. Patient was given additional Phenergan and Zofran. He continues to have nausea and vomiting. Discussed with Dr. Landeros. Patient was evaluated by the hospitalist in the emergency department. He feels there is no indication for admission at this time. Patient has had 3 admissions to the hospital in the past month. He requested a social work consult for possible placement. Disposition pending social work. Disposition: pending Impression: Intractable nausea vomiting This note was generated with [employer] dictation software. It may contain incorrect words, spelling, and punctuation that were not noted in review of the chart prior to signing ED Disposition - Plan for ED Patient: Chief Complaint: Shortness of Breath Referrals: Juan De La Vega III, MD [Primary Care Provider] -
[2017-12-17 03:28] LABS: Absolute Lymphocyte Count 2.37 X10^3/ul (0.83-4.51); Absolute Neutrophil Count 12.9 X10^3/uL (2.0-7.7); Basophil# 0.03 X10^3/uL; Basophil% 0.2 % (0-1); Eosinophil# 0.37 X10^3/uL; Eosinophils% 2.3 % (0-5); Hematocrit 41.3 % (40-54); Hemoglobin 13.7 g/dl (13.0-16.5); Lymphocyte # 2.37 X10^3/ul (4.0); Lymphocyte % 14.4 % (19-41); Mean Corp Hgb Conc 33.2 g/gl (32-36); Mean Corpuscular Hgb 30.8 pg (27.0-32.0); Mean Corpuscular Volume 92.8 fL (80-94); Mean Platelet Vol. 9.4 fl (6.2-12.0); Monocyte# 0.69 X10^3/uL; Monocyte% 4.2 % (0-10); Neutrophil # 12.88 X10^3/uL (2.7-7.7); Neutrophil % 78.4 % (47-70); Platelet Count 233 K/mm3 (150-450); RBC Distribution Width CV 14.9 % (11.6-14.6); RBC Distribution Width SD 48.8 fl (35.1-43.9); Red Blood Count 4.45 M/mm3 (4.6-6.2); White Blood Count 16.4 K/mm3 (4.4-11.0)
[2017-12-17 03:34] LABS: POSITIVE COUNT NO; POSITIVE DIFFERENTIAL NO; POSITIVE MORPHOLOGY NO
[2017-12-17] MEDS: proMETHazine 25 MG/ML Syringe 6.25 MG IV ×2 (03:34→04:27)
[2017-12-17] MEDS: Morphine 4 MG/ML Syringe IV (03:37)
[2017-12-17 03:39] LABS: Anion Gap 9 (5-15); BUN 37 mg/dL (7-18); BUN/Creat Ratio 21.4 RATIO (10-20); Calcium,Total 8.5 mg/dL (8.5-10.1); Chloride 102 mmol/L (98-107); Creatinine, Serum 1.73 mg/dL (0.70-1.30); EST Glomerular Filtration Rate 42 mL/min (>60); Est Glom Filt Rate - Afr Amer 51 mL/min (>60); Estimated Creatinine Clearance 40.64 ml/min; Glucose 112 mg/dL (74-106); Lipase 125 U/L (73-393); Sodium Level 141 mmol/L (136-145)
[2017-12-17] MEDS: Aspirin 81 MG TAB.CHEW 324 MG PO (04:27)
[2017-12-17] MEDS: Ondansetron 4 MG/2 ML Vial IV (05:06)
--- NOTE | 2017-12-17 07:44 | ED.RN ---
PT RESTING IN BED W/EYES CLOSED WHEN THIS NURSE ENTERED ROOM- PT ASKED FOR WATER- WATER GIVEN. PT FALLS BACK TO SLEEP. 5MIN LATER THIS NURSE ENTERS THE ROOM AGAIN PT OPENS EYES I DON'T FEEL GOOD MY HEAD AND STOMACH HURT. THEN PT FALLS BACK TO SLEEP. DR CORTES-HARRIETO. PT RESTING IN BED W/EYES CLOSED NO DISTRESS NOTED.
--- NOTE | 2017-12-17 10:05 | ED.RN ---
QUINCY,DENYS NOTIFIED THAT PT NEEDS [facility]. QUINCY TO COME EVALUATE PT.
--- NOTE | 2017-12-17 10:57 | CM.ED ---
CM ASSESSMENT: Referral to case management for discharge planning. Home: Patient lives in a two story home with his . Patient denies any problems with the stairs and ambulating. HHS/Aides: Patient states he had aide services a few months ago. They would come clean. No services at this time. Patient states his drives him to his appointments. DME: Denies use of DME and need. Home Oxygen: Denies. Pharmacy: [facility] in [place] Advance Directives: Denies and declines assistance at this time. PCP: Juan De La Vega Specialists: Dr. Inman (cardiology) and Dr. Cai (pulmonology) Discussed palliative care services and CCN. Patient is agreeable to referral. Patient states he is agreeable with discharging to home at this time. Care team updated. DC Plan: Home with referral to [facility]
--- NOTE | 2017-12-17 11:04 | ED.DEP ---
ED Disposition - Plan for ED Patient: Disposition: Home or Assisted Living Chief Complaint: Shortness of Breath Instructions: ED Diet Vomiting Diarrhea Referrals: Juan De La Vega III, MD [Primary Care Provider] -
--- NOTE | 2017-12-17 11:52 | CM.ED ---
Patient's , Alma Rosa, is now at bedside and requests to speak with CM. Alma Rosa states that the patient is noncompliant with his diet. She says, I caught him drinking a jar of pickle juice yesterday. Patient states he is so tired of being in the hospital that he just doesn't care anymore. Reviewed Palliative Care and CCN referrals with Alam Rosa. Alma Rosa is agreeable with these referrals and states she does feel palliative services would help the patient. I did ask Alma Rosa if she felt anxiety was any component of the patient's shortness of breath and she states she does not believe so. Patient states he does have a nebulizer at home, but that [facility] told him his insurance won't pay for his aerosols. I called [facility] in [place] and they do not have the patient's [employer] card on file. Alma Rosa was updated that if she brings his card to the pharmacy they will fill his prescription. Provided contact information to Alma Rosa and asked her to call me if she has any problems or needs any assistance. Alma Rosa states agreement and understanding. She states the patient was home and went to lay down at this time.
--- NOTE | 2017-12-17 12:15 | CM.ED ---
Becky, from Palliative Care, received referral and states she will call the patient. Email sent to Golden, with CCN. Golden replies that they will reach out to the patient next week.
--- NOTE | 2017-12-18 10:01 | CM.ED ---
ED CALLBACK: Follow-up call placed to patient. Patient's , Alma Rosa, answers and states the patient is feeling better today and that he is out with a friend. Alma Rosa states that Palliative Care has not yet been in touch with them. I told her they should be in touch today and to please call me if she needs any assistance.
--- NOTE | 2018-01-05 09:38 | CCN.REFER ---
PATIENT ADAMANTLY DECLINING CCN. SHILPA MADE AWARE.
== END 2017-12-17 11:29 | disposition home or self-care (01) ==
LOC: ED 05:00 → MS2 05:23 → ED 11:05
PROVIDERS: Emergency Provider Emergency Medicine; Family Provider Family Medicine; PCP Family Medicine
DX: R11.2 Nausea with vomiting, unspecified (principal); R10.9 Unspecified abdominal pain; R05 Cough; R07.9 Chest pain, unspecified; R06.00 Dyspnea, unspecified; I25.10 Atherosclerotic heart disease of native coronary artery without angina pectoris; K21.9 Gastro-esophageal reflux disease without esophagitis; E11.9 Type 2 diabetes mellitus without complications; E78.00 Pure hypercholesterolemia, unspecified; J44.9 Chronic obstructive pulmonary disease, unspecified; I25.5 Ischemic cardiomyopathy; Z87.891 Personal history of nicotine dependence; G89.29 Other chronic pain; M54.9 Dorsalgia, unspecified; I12.9 Hypertensive chronic kidney disease with stage 1 through stage 4 chronic kidney disease, or unspecified chronic kidney disease; N18.9 Chronic kidney disease, unspecified
CPT/HCPCS: 71045; 80048; 83690; 84484; 85025; 93005; 96374; 96375; 99285; J7030; A4216; J2405

== ENCOUNTER 2018-02-02 09:52 | Observation (INO) | payer MEDICARE, MEDICAID, SELFPAY ==
[2018-02-02] VITALS (14 sets, daily range): BP systolic 108–115; BP diastolic 59–69; PULSE 61–93; RESP 14–18; TEMP 36.5–36.8; O2SAT 91–99; BMI 30.4; BMI 31.4
--- NOTE | 2018-02-02 10:04 | EKG12_ITS ---
Test Reason : CP Blood Pressure : / mmHG Vent. Rate : 072 BPM Atrial Rate : 072 BPM P-R Int : 146 ms QRS Dur : 102 ms QT Int : 418 ms P-R-T Axes : 058 002 132 degrees QTc Int : 457 ms Normal sinus rhythm ST & T wave abnormality, consider lateral ischemia Abnormal ECG Confirmed by SHAVONNE LUNDBERG, LISA ([id number]), video editor LANDRY YARBROUGH ([id number]) on 02/04/2018 1:40:32 PM Referred By: MARVIN Confirmed By:LISA MARVIN MD
[2018-02-02] MEDS: Ipratropium/Albuterol Sulfate 3 ML AMPUL.NEB INHALATION ×3 (10:15→18:51)
[2018-02-02 10:24] LABS: Absolute Lymphocyte Count 2.27 X10^3/ul (0.83-4.51); Absolute Neutrophil Count 5.8 X10^3/uL (2.0-7.7); Basophil# 0.02 X10^3/uL; Basophil% 0.2 % (0-1); Eosinophil# 0.16 X10^3/uL; Eosinophils% 1.7 % (0-5); Hematocrit 43.8 % (40-54); Lymphocyte # 2.27 X10^3/ul (4.0); Lymphocyte % 24.4 % (19-41); Mean Corp Hgb Conc 34.2 g/gl (32-36); Mean Corpuscular Hgb 30.1 pg (27.0-32.0); Mean Platelet Vol. 9.2 fl (6.2-12.0); Monocyte# 0.99 X10^3/uL; Monocyte% 10.7 % (0-10); Neutrophil # 5.83 X10^3/uL (2.7-7.7); Neutrophil % 62.8 % (47-70); POSITIVE COUNT NO; POSITIVE DIFFERENTIAL NO; POSITIVE MORPHOLOGY NO; Platelet Count 272 K/mm3 (150-450); RBC Distribution Width CV 14.4 % (11.6-14.6); RBC Distribution Width SD 46.1 fl (35.1-43.9); Red Blood Count 4.98 M/mm3 (4.6-6.2); White Blood Count 9.3 K/mm3 (4.4-11.0)
[2018-02-02] MEDS: Albuterol 2.5 MG/3 ML VIAL.NEB. INHALATION (10:25)
[2018-02-02 10:43] LABS: Anion Gap 9 (5-15); BUN 19 mg/dL (7-18); BUN/Creat Ratio 13.6 RATIO (10-20); Calcium,Total 9.9 mg/dL (8.5-10.1); Chloride 100 mmol/L (98-107); EST Glomerular Filtration Rate 54 mL/min (>60); Est Glom Filt Rate - Afr Amer 65 mL/min (>60); Estimated Creatinine Clearance 50.21 ml/min; Glucose 109 mg/dL (74-106); Potassium 4.4 mmol/L (3.5-5.1); Sodium Level 137 mmol/L (136-145)
[2018-02-02] MEDS: MethylPREDNISolone 125 MG/2 ML Vial IV (10:49)
[2018-02-02] MEDS: Ketorolac 15 MG/ML Vial IV (10:50)
--- NOTE | 2018-02-02 10:53 | RAD_ITS ---
STUDY: X-RAY CHEST REASON FOR EXAM: Male, 67 years old. Shortness of breath/dyspnea. TECHNIQUE: PA and lateral views of the chest. COMPARISON: Comparison is made with prior study dated December 17, 2017. FINDINGS: EKG electrodes are seen. Stable calcified granulomas. Mild increased linear markings at the lung bases suggestive mild scarring. There is no demonstrated pleural abnormality. Sternal cerclage wires and vascular clips are present from a prior sternotomy and coronary artery bypass graft procedure (CABG). A left-sided dual-chamber pacemaker is seen. Normal mediastinum and serjio. There is prominence of the pulmonary hilar arteries without peripheral pulmonary vascular congestion, suggesting pulmonary hypertension. There is atherosclerotic calcification of the aortic arch with tortuosity. There are degenerative changes of the visualized thoracic spine. Normal visualized ribs, clavicles, and shoulders. There is no demonstrated abnormality of the visualized soft tissue structures of the upper abdomen. RAD/Chest PA and Lateral IMPRESSION: Stable mild bibasilar linear scarring. Prominence of the central pulmonary arteries. Electronically Signed: Arcenio Leary MD at 11:14 EDT Tel [phone], Service support ,
--- NOTE | 2018-02-02 11:29 | NURSING ---
DR CRAIG FOR DR WONG
[2018-02-02] MEDS: Azithromycin 250 MG Tablet 500 MG PO (11:46)
--- NOTE | 2018-02-02 11:47 | NURSING ---
219 RAFA COPD EXAC
--- NOTE | 2018-02-02 11:48 | NURSING ---
DR CRAIG IN ER
[2018-02-02] MEDS: oxyCODONE 5 MG Tablet PO ×3 (13:03→22:19)
[2018-02-02] MEDS: Heparin Injection (Vial) 5,000 UNIT/ML VIAL 5000 UNIT SC ×2 (13:03→22:18)
[2018-02-02] MEDS: Furosemide 20 MG/2 ML VIAL IV (13:03)
[2018-02-02 13:11] LABS: BNP,B-Type NATRIURETIC PEPTIDE 115.6 pg/mL (0-100)
--- NOTE | 2018-02-02 13:51 | NURSING ---
1216 called ed charge and notified ready to recieve patient
--- NOTE | 2018-02-02 14:41 | EKG12_ITS ---
Test Reason : CHEST PAIN Blood Pressure : / mmHG Vent. Rate : 077 BPM Atrial Rate : 077 BPM P-R Int : 152 ms QRS Dur : 106 ms QT Int : 432 ms P-R-T Axes : 053 -18 132 degrees QTc Int : 488 ms Normal sinus rhythm Incomplete left bundle branch block T wave abnormality, consider lateral ischemia Prolonged QT Abnormal ECG Confirmed by SHAVONNE LUNDBERG, LISA ([id number]), editor house organ LANDRY YARBROUGH ([id number]) on 02/08/2018 2:14:44 PM Referred By: RAFA Confirmed By:LISA MARVIN MD
--- NOTE | 2018-02-02 16:13 | HP.PCM_ITS ---
Problem List (1) Shortness of breath Status: Acute History of Present Illness Date of Admission: 02/02/18 Chief Complaint: Shortness of breath The patient is a 67 year old M who was seen in the emergency room at [facility] with chief complaint of increasing shortness of breath over the last 48 hours. Patient denies any purulent sputum production, chills, fever , admits to increased cough. Patient denies any hemoptysis. Patient complains of chest discomfort but he states that he has been coughing over the last couple of days and he feels it may be from that. Evaluation in the emergency room included a chest x-ray which showed bibasilar linear scarring, labs showed a normal white blood cell count, creatinine was 1.4 and BUN was 19. Patient's pulse ox on room air was 99%. According to the emergency room physician, patient had expiratory wheezes and rhonchi bilaterally on initial examination, aerosol treatments were given to the patient and he received IV Solu-Medrol. At the time my examination, I heard no expiratory wheezes, there was significant inspiratory rales at the bases bilaterally however. Patient did not appear in any distress but he was on 2 L of oxygen. Patient will be placed in observation status for exacerbation of COPD and possible CHF, a BNP was ordered, if this is elevated significantly, I will place the patient on IV Lasix , for now, I have placed him on IV Lasix until the results of the BNP are back. Patient will receive aerosol treatments and I will place him on IV Solu-Medrol Past Medical History Past Medical History (Chronic Problems): Chronic Problems (Last Reviewed 12/15/17 @ 10:18 by Ramonita Alcantar) Musculoskeletal chest pain (Chronic) COPD (chronic obstructive pulmonary disease) (Chronic) Obesity (BMI 30.0-34.9) (Chronic) Chest pain (Chronic) Nicotine dependence (Chronic) Chronic bronchitis (Chronic) Sciatica (Chronic) Gout (Chronic) Degenerative cervical disc (Chronic) Claudication (Chronic) Chronic back pain (Chronic) Presence of automatic implantable cardioverter-defibrillator (Chronic) Chronic renal failure, stage 3 (moderate) (Chronic) Chronic systolic (congestive) heart failure (Chronic) Stented coronary artery (Chronic ~12/2016) has had 7 stents as of 06/15/17 Ischemic cardiomyopathy (Chronic) 25% ejection fraction in November 2016 V-tach (Chronic) has an AICD Benign essential hypertension (Chronic) Gastroesophageal reflux disease (Chronic) Hyperlipidemia (Chronic) Type 2 diabetes mellitus (Chronic) Morbid obesity (Chronic) CAD (coronary artery disease) (Chronic) Medical History: Medical History (Last Reviewed 12/15/17 @ 10:18 by Ramonita Alcantar) Nicotine dependence (Chronic) F17.200 Chronic bronchitis (Chronic) J42 Sciatica (Chronic) M54.30 Gout (Chronic) M10.9 Degenerative cervical disc (Chronic) M50.30 Claudication (Chronic) I73.9 Chronic back pain (Chronic) M54.9, G89.29 Chronic renal failure, stage 3 (moderate) (Chronic) N18.3 Chronic systolic (congestive) heart failure (Chronic) I50.22 Ischemic cardiomyopathy (Chronic) I25.5 25% ejection fraction in November 2016 V-tach (Chronic) I47.2 has an AICD Benign essential hypertension (Chronic) I10 Gastroesophageal reflux disease (Chronic) K21.9 Hyperlipidemia (Chronic) E78.5 Type 2 diabetes mellitus (Chronic) E11.9 Morbid obesity (Chronic) E66.01 CAD (coronary artery disease) (Chronic) I25.10 Acute non-ST segment elevation myocardial infarction (Resolved) I21.4 Colitis (Inactive) Tinea manus (Inactive) B35.2 Tubular adenoma of colon (Inactive) D12.6 Allergies chlorpromazine HCl [From Thorazine] Allergy (Severe, Verified 02/02/18 09:52) Hives PER PATIENT tramadol HCl [From Ultram] Allergy (Severe, Verified 02/02/18 09:52) Hives PER PATIENT codeine Allergy (Intermediate, Verified 02/02/18 09:52) Hives atorvastatin Adverse Reaction (Intermediate, Verified 02/02/18 09:52) Other LEG PAIN/CRAMPS naproxen Adverse Reaction (Verified 02/02/18 09:52) Upset Stomach promethazine [From Phenergan] Adverse Reaction (Verified 02/02/18 09:52) Other CONFUSION Home Medications: Ambulatory Orders Medication Instructions Recorded Nitroglycerin [Nitrostat] 0.4 mg SUBLINGUAL Q5M PRN 09/17/15 Isosorbide Mononitrate [Imdur] 30 mg PO DAILY 02/18/17 Albuterol Aerosols [Ventolin 2.5 mg INHALATION Q4H PRN PRN 02/23/17 Aerosols] Allopurinol 300 mg PO DAILY 05/05/17 Clopidogrel Bisulfate [Plavix] 75 mg PO DAILY #30 tab 06/17/17 metoprolol succinate ER 50 mg 100 mg PO DAILY 07/09/17 tablet,extended release 24 hr albuterol sulfate HFA 90 2 puff INHALATION Q4H PRN g 07/31/17 mcg/actuation aerosol inhaler fenofibrate nanocrystallized 145 145 mg PO DAILY 07/31/17 mg tablet nicotine 14 mg/24 hr daily 21 mg TRANSDERMAL Q24H 07/31/17 transdermal patch rosuvastatin 40 mg tablet 40 mg PO DAILY 07/31/17 spironolactone 25 mg tablet 25 mg PO QAM 07/31/17 Umeclidinium Brm/Vilanterol Tr 1 inh INHALATION DAILY 09/03/17 [Anoro Ellipta 62.5-25 Mcg INH] Pantoprazole Sodium [Protonix] 40 mg PO DAILY 11/15/17 Oxycodone HCl/Acetaminophen 1 tab PO Q6H PRN PRN 5 Days #15 tab 12/03/17 [Percocet 7.5-325 mg Tablet] Furosemide [Lasix] 20 mg PO DAILY #30 tab 12/08/17 Aspirin E.C. [Ecotrin] 81 mg PO DAILY 02/02/18 Dicyclomine HCl 20 mg PO TID PRN 02/02/18 Metoclopramide [Reglan] 10 mg PO TID PRN 02/02/18 proMETHazine tablet [Phenergan 25 mg PO Q6H PRN PRN 02/02/18 tablet] Surgical History: Surgical History (Last Reviewed 12/15/17 @ 10:18 by Ramonita Alcantar) Presence of automatic implantable cardioverter-defibrillator (Resolved) Z95.810 H/O coronary artery bypass surgery (Resolved) Onset Date: ~2008 Z95.1 HUMPHREY-LAD, SVG-D1, SVG-OM Stented coronary artery (Chronic) Onset Date: ~12/2016 has had 7 stents as of 06/15/17 Hx of hernia repair (Inactive) Z98.890, Z87.19 Previous back surgery (Inactive) Z98.890 Status post left heart catheterization (Inactive) Onset Date: ~12/2016 Z98.890 Surgical History: angioplasty - stents x10, coronary bypass surgery, - - AICD placement, back surgery x 2, hernia repair Psychiatric History: No pertinent psych hx Lives: Spouse/ Significant Other Smoking Status: Light Smoker (<10/day) Tobacco Use: Cigarettes Alcohol: None Drugs: None - *Family History Paternal Family History: Family History (Last Reviewed 12/15/17 @ 10:18 by Ramonita Alcantar) Brother CAD (coronary artery disease) Myocardial infarction Sudden cardiac Mother Cancer Hypertension Father Cancer COPD (chronic obstructive pulmonary disease) History Items: Cancer, Heart Disease Maternal Family History: Family History (Last Reviewed 12/15/17 @ 10:18 by Ramonita Alcantar) Brother CAD (coronary artery disease) Myocardial infarction Sudden cardiac Mother Cancer Hypertension Father Cancer COPD (chronic obstructive pulmonary disease) History Items: Cancer Review of Systems Constitutional: Denies: Anorexia, Chills, Fever, Night Sweats, Malaise, Weakness , Weight Change, Fatigue Eyes: Denies: Blurred vision, Cataracts, Conjunctivae Inflammation, Double vision, Drainage HEENT: Denies: Difficulty Hearing, Difficulty Swallowing, Dysphasia, Ear Pain, Eye Pain, Hearing Changes, Nasal bleeding, Nasal Congestion, Post Nasal Drip Cardiovascular: Reports: Chest Pain. Denies: Claudication, Chest Pressure, Chest Tightness, Edema, Heaviness, Light Headedness, Orthopnea, Palpitations, Paroxysmal Noc. Dyspnea, Syncope Respiratory: Reports: Cough, Pleuritic Pain, Shortness of Breath, Shortness of breath at rest, Shortness of breath upon exertion. Denies: Hemoptysis, Sputum production Gastrointestinal: Denies: Abdominal Pain, Constipation, Diarrhea, Hematemesis, Hematochezia, Nausea, Melena, Vomiting Genitourinary: Denies: Dysuria, Frequency, Hematuria, Hesitancy, Incontinence, Urgency Musculoskeletal: Reports: Back Pain - Patient has chronic back pain and takes narcotics chronically. Denies: Foot Pain, Hand Pain, Joint Pain, Joint stiffness, Joint swelling, Joint Tenderness, Leg Pain Skin: Denies: Dryness, Pruritis, Rash Neurological: Denies: Balance problems, Blurred vision, Double vision, Slurred speech, Difficulty swallowing, Focal weakness, Headaches, Incoordination, Numbness, Tingling Psychiatric: Denies: Anxiety, Depression, Homicidal Ideations, Suicidal Ideations Endocrine: Denies: Change in Body Habitus, Heat/ Cold Intolerance, Polydipsia, Polyuria Hematologic/ Lymphatic: Denies: Adenopathy, Anemia, Easy Bruising, Easy Bleeding , Petechiae, Purpura VTE Information - Inpt Only VTE Present on Admission: No VTE Mechan Device Prophylaxis: None VTE Pharm Prophylaxis ordered?: Yes Patient Problems: Active and Suspected Problems (Last Reviewed 12/15/17 @ 10:18 by Ramonita Alcantar) Shortness of breath (Acute) - Physical Exam General: Alert, Oriented x3, Cooperative, No apparent distress, Well developed, Well nourished HEENT: Atraumatic, PERRLA, EOMI, Normocephalic Oral: Moist Mucosa Neck: Supple, No JVD, Negative Carotid Bruits, No Nuchal Rigidity, Trachea Midline, Thyroid Normal Size and Texture Lungs: Clear to auscultation, Normal air movement, No rhonchi, No wheeze, Rales - Inspiratory rales are noted at the bases bilaterally Cardiovascular: Regular rate, Regular Rhythm, Normal S1, Normal S2, No murmurs, PMI Normal, No rub noted, No Gallop Abdomen: Bowel Sounds Present, Soft, Non Tender, Non-Distended, No hernias noted Extremities: No clubbing, No cyanosis, No edema, Capillary Refill Less than 3 Seconds Skin: No rashes, No breakdown Musculoskeletal: No Tenderness to Palpation of Joints or Extremities Neurological: Cranial nerves II-XII grossly intact, Neuro grossly intact, Sensory exam intact to light touch and pain, Coordination normal Psych/Mental Status: Normal Affect, Appropriate, Alert and oriented to time, place, person, mood and affect Vital Signs Temp Pulse Resp BP Pulse Ox 97.8 F 87 16 115/59 L 91 02/02/18 12:44 02/02/18 15:00 02/02/18 13:34 02/02/18 12:44 02/02/18 13:34 Oxygen Delivery Method Room Air Weight: 90.9 kg Body Mass Index (BMI) 31.4 Assessment/Plan All Active Problems (Last Reviewed 12/15/17 @ 10:18 by Ramonita Alcantar) Shortness of breath (Acute) URI (upper respiratory infection) (Resolved) Acute renal failure superimposed on stage 3 chronic kidney disease (Resolved) COPD exacerbation (Acute) JILLIAN (acute kidney injury) (Resolved) Acute hypoxemic respiratory failure (Resolved) Presence of automatic implantable cardioverter-defibrillator (Resolved) H/O coronary artery bypass surgery (Resolved ~2008) Abdominal pain (Resolved) Acute non-ST segment elevation myocardial infarction (Resolved) NSTEMI (non-ST elevated myocardial infarction) (Resolved) Non-STEMI (non-ST elevated myocardial infarction) (Resolved) #1 acute exacerbation of COPD-patient will be placed and observation status on PCU, aerosol treatments will be given, patient will receive IV Solu-Medrol and pulse ox will be monitored. 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
--- NOTE | 2018-02-02 16:36 | ED.VISSUMM ---
- ER Visit Summary Date of Service: 02/02/18 Chief Complaint: Patient presents with shortness of breath History of Present Illness: The patient is a 67 M with a history of COPD and CHF. Yesterday he felt ill and went to bed for 18 hours. When he woke up last evening she felt extremely short of breath. He tried some aerosols. He is not sure of what dose of his diuretic he should be taking. Denies any fevers. Denies any sputum production but does note that he has been cautious feeding very forcefully causing the anterior aspect of his chest to hurt. Physical Examination: Afebrile vital signs are stable Gen: Well-nourished well-developed Head: Normocephalic atraumatic Eyes: Perrl EOMI ENT: TMs clear no rhinorrhea moist mucous membranes Neck: Supple no lymphadenopathy no JVD nontender CVS: Regular rate rhythm no murmurs normal S1-S2 Respiratory: Patient is tachypneic with bilateral inspiratory expiratory wheezing and rhonchi anterior chest wall is diffusely tender to palpation Abdomen: Soft nontender nondistended normal bowel sounds no masses Back: Nontender Extremity: Nontender no edema Skin: Normal color no rash Neuro: alert orientated ?3 CN II-XII intact normal strength sensation reflexes gait cerebellar Psych: Normal affect normal mood Test Results: Patient chest x-ray does not show overt failure or infiltrate. EKG showed a sinus rhythm. Troponin negative. Emergency Department Course and Treatment: Patient received breathing treatments. He also received Solu-Medrol and azithromycin. The patient continues to have inspiratory expiratory wheezing. He continues to have rhonchi. I believe he would benefit from inpatient care. Impression: 1. COPD exacerbation This note was generated with K[employer] dictation software. It may contain incorrect words, spelling, and punctuation that were not noted in review of the chart prior to signing ED Disposition - Plan for ED Patient: Chief Complaint: Chest Other
[2018-02-02] MEDS: 0.9% NaCl Peripheral Flush Adult/Peds IV ×2 (16:46→22:19)
[2018-02-02] MEDS: Insulin Lispro 100 UNIT/ML INSULN.PEN SC (22:19)
[2018-02-02 23:00] LABS: Bedside Glucose 281 mg/dL (70-110)
[2018-02-03] VITALS (10 sets, daily range): BP systolic 103–123; BP diastolic 58–60; PULSE 78–91; RESP 16–18; TEMP 36.5–36.9; O2SAT 91–96
[2018-02-03] MEDS: Ipratropium/Albuterol Sulfate 3 ML AMPUL.NEB INHALATION ×2 (00:15→07:01)
[2018-02-03] MEDS: oxyCODONE 5 MG Tablet PO ×2 (02:23→08:07)
[2018-02-03 06:17] LABS: Anion Gap 12 (5-15); BUN 33 mg/dL (7-18); BUN/Creat Ratio 17.5 RATIO (10-20); Calcium,Total 8.4 mg/dL (8.5-10.1); Chloride 100 mmol/L (98-107); Creatinine, Serum 1.89 mg/dL (0.70-1.30); EST Glomerular Filtration Rate 38 mL/min (>60); Est Glom Filt Rate - Afr Amer 46 mL/min (>60); Estimated Creatinine Clearance 35.95 ml/min; Glucose 182 mg/dL (74-106); Sodium Level 135 mmol/L (136-145)
[2018-02-03] MEDS: Heparin Injection (Vial) 5,000 UNIT/ML VIAL 5000 UNIT SC (06:19)
[2018-02-03] MEDS: 0.9% NaCl Peripheral Flush Adult/Peds IV (06:19)
[2018-02-03 07:00] LABS: Bedside Glucose 184 mg/dL (70-110)
[2018-02-03] MEDS: Insulin Lispro 100 UNIT/ML INSULN.PEN SC (08:05)
[2018-02-03] MEDS: Allopurinol 300 MG Tablet PO (09:46)
[2018-02-03] MEDS: Metoprolol(XL)Succ 100 MG Tablet PO (09:47)
[2018-02-03] MEDS: Isosorbide Mononitrate 30 MG Tablet PO (09:47)
[2018-02-03] MEDS: Spironolactone 25 MG Tablet PO (09:47)
[2018-02-03] MEDS: Clopidogrel Bisulfate 75 MG Tablet PO (09:47)
[2018-02-03] MEDS: Furosemide 40 MG Tablet PO (09:47)
[2018-02-03] MEDS: Pantoprazole Sodium 40 MG Tablet PO (09:47)
--- NOTE | 2018-02-03 10:02 | PCM.DC ---
- Discharge Diagnoses Current Active Problems: Current Active and Chronic Problems (Last Reviewed 12/15/17 @ 10:18 by Ramonita Alcantar) Shortness of breath (Acute) You will use the following diet at home:: Regular Your food should be the consistency of: Regular Your liquids should be the consistency of: Regular/Thin Discharge Activity: Return to Normal Activity Weight Bearing Status: Full weight bearing Additional Instructions: no smoking Allergies/Adverse Reactions: Allergies chlorpromazine HCl [From Thorazine] Allergy (Severe, Verified 02/02/18 09:52) Hives PER PATIENT tramadol HCl [From Ultram] Allergy (Severe, Verified 02/02/18 09:52) Hives PER PATIENT codeine Allergy (Intermediate, Verified 02/02/18 09:52) Hives atorvastatin Adverse Reaction (Intermediate, Verified 02/02/18 09:52) Other LEG PAIN/CRAMPS naproxen Adverse Reaction (Verified 02/02/18 09:52) Upset Stomach promethazine [From Phenergan] Adverse Reaction (Verified 02/02/18 09:52) Other CONFUSION Medications to take at Discharge Nitroglycerin [Nitrostat] 0.4 mg SUBLINGUAL Q5M PRN 09/17/15 Isosorbide Mononitrate [Imdur] 30 mg PO DAILY 02/18/17 Albuterol Aerosols [Ventolin Aerosols] 2.5 mg INHALATION Q4H PRN PRN 02/23/17 Allopurinol 300 mg PO DAILY 05/05/17 Clopidogrel Bisulfate [Plavix] 75 mg PO DAILY #30 tab 06/17/17 metoprolol succinate ER 50 mg tablet,extended release 24 hr 100 mg PO DAILY 07/09/17 albuterol sulfate HFA 90 mcg/actuation aerosol inhaler 2 puff INHALATION Q4H PRN g 07/31/17 fenofibrate nanocrystallized 145 mg tablet 145 mg PO DAILY 07/31/17 rosuvastatin 40 mg tablet 40 mg PO DAILY 07/31/17 spironolactone 25 mg tablet 25 mg PO QAM 07/31/17 Umeclidinium Brm/Vilanterol Tr [Anoro Ellipta 62.5-25 Mcg INH] 1 inh INHALATION DAILY 09/03/17 Pantoprazole Sodium [Protonix] 40 mg PO DAILY 11/15/17 Oxycodone HCl/Acetaminophen [Percocet 7.5-325 mg Tablet] 1 tab PO Q6H PRN PRN 5 Days #15 tab 12/03/17 Aspirin E.C. [Ecotrin] 81 mg PO DAILY 02/02/18 proMETHazine tablet [Phenergan tablet] 25 mg PO Q6H PRN PRN 02/02/18 Furosemide [Lasix] 40 mg PO DAILY #60 tab 02/03/18 Nicotine [Nicoderm] 14 mg TRANSDERM. DAILY #30 patch 02/03/18 Prednisone 10 mg PO UD #30 tab 02/03/18 The following prescriptions were given: Furosemide [Lasix] 40 mg PO DAILY #60 tab Nicotine [Nicoderm] 14 mg TRANSDERM. DAILY #30 patch Prednisone 10 mg PO UD #30 tab Primary Care Physician: Juan De La Vega III, MD [Primary Care Provider] - Please follow up with your Primary Care Physician in: in 7 days Test Results: Test results from this visit will be discussed in further detail at your follow-up appointment, if applicable.
--- NOTE | 2018-02-04 17:51 | PCM.DC.SUM ---
Discharge Date and Diagnosis Date of Admission: 02/02/18 Date of Discharge: 02/03/18 - Primary Discharge Diagnosis #1 acute exacerbation of COPD #2 dyspnea secondary to #1 #3 noncompliance with medical regimen #4 ischemic cardiomyopathy with reduced ejection fraction #5 chronic kidney disease stage III Congestive heart failure was ruled out - Secondary Discharge Diagnosis Chronic Problems (Last Reviewed 12/15/17 @ 10:18 by Ramonita Alcantar) Musculoskeletal chest pain (Chronic) COPD (chronic obstructive pulmonary disease) (Chronic) Obesity (BMI 30.0-34.9) (Chronic) Chest pain (Chronic) Nicotine dependence (Chronic) Chronic bronchitis (Chronic) Sciatica (Chronic) Gout (Chronic) Degenerative cervical disc (Chronic) Claudication (Chronic) Chronic back pain (Chronic) Presence of automatic implantable cardioverter-defibrillator (Chronic) Chronic renal failure, stage 3 (moderate) (Chronic) Chronic systolic (congestive) heart failure (Chronic) Stented coronary artery (Chronic ~12/2016) has had 7 stents as of 06/15/17 Ischemic cardiomyopathy (Chronic) 25% ejection fraction in November 2016 V-tach (Chronic) has an AICD Benign essential hypertension (Chronic) Gastroesophageal reflux disease (Chronic) Hyperlipidemia (Chronic) Type 2 diabetes mellitus (Chronic) Morbid obesity (Chronic) CAD (coronary artery disease) (Chronic) Hospital Course and Treatment Operations: None Procedures: None Summary of Care Provided: The patient is a 67 year old M at [facility] with a chief complaint of increased shortness of breath over 48 hours prior to being seen in the emergency room. Evaluation in the emergency room included chest x-ray which showed bibasilar linear scarring, patient's pulse ox on room air was 99%, he had a normal white blood cell count, BUN was slightly elevated as was his creatinine. On examination patient had marked expiratory wheezing and was given aerosol treatments and IV Solu-Medrol. Hospitalist service was called to admit the patient for exacerbation of COPD, I did not feel the patient needed to be a full admission and he was placed and observation status, given IV Solu-Medrol, aerosol treatments, and a beta natruretic peptide was obtained to rule out congestive heart failure-the beta natruretic peptide did not indicate the patient had CHF. The following day on 02/03/18, patient was seen and examined, he had significantly less wheezing, he did not require supplemental oxygen. I had a long discussion with him about smoking at home-he continued to smoke at home and using nicotine patch, I told him he could not do both and that he had to stop smoking and decrease his nicotine patch to 14 mcg. Patient was discharged on 02/03/18 in stable condition Discharge Activity: Return to Normal Activity Weight Bearing Status: Full weight bearing Home Medications: Medications to take at Discharge Nitroglycerin [Nitrostat] 0.4 mg SUBLINGUAL Q5M PRN 09/17/15 Isosorbide Mononitrate [Imdur] 30 mg PO DAILY 02/18/17 Albuterol Aerosols [Ventolin Aerosols] 2.5 mg INHALATION Q4H PRN PRN 02/23/17 Allopurinol 300 mg PO DAILY 05/05/17 Clopidogrel Bisulfate [Plavix] 75 mg PO DAILY #30 tab 06/17/17 metoprolol succinate ER 50 mg tablet,extended release 24 hr 100 mg PO DAILY 07/09/17 albuterol sulfate HFA 90 mcg/actuation aerosol inhaler 2 puff INHALATION Q4H PRN g 07/31/17 fenofibrate nanocrystallized 145 mg tablet 145 mg PO DAILY 07/31/17 rosuvastatin 40 mg tablet 40 mg PO DAILY 07/31/17 spironolactone 25 mg tablet 25 mg PO QAM 07/31/17 Umeclidinium Brm/Vilanterol Tr [Anoro Ellipta 62.5-25 Mcg INH] 1 inh INHALATION DAILY 09/03/17 Pantoprazole Sodium [Protonix] 40 mg PO DAILY 11/15/17 Oxycodone HCl/Acetaminophen [Percocet 7.5-325 mg Tablet] 1 tab PO Q6H PRN PRN 5 Days #15 tab 12/03/17 Aspirin E.C. [Ecotrin] 81 mg PO DAILY 02/02/18 proMETHazine tablet [Phenergan tablet] 25 mg PO Q6H PRN PRN 02/02/18 Furosemide [Lasix] 40 mg PO DAILY #60 tab 02/03/18 Nicotine [Nicoderm] 14 mg TRANSDERM. DAILY #30 patch 02/03/18 Prednisone 10 mg PO UD #30 tab 02/03/18 Following Prescrptions Were Given to Patient: Furosemide [Lasix] 40 mg PO DAILY #60 tab Nicotine [Nicoderm] 14 mg TRANSDERM. DAILY #30 patch Prednisone 10 mg PO UD #30 tab Primary Care Physician: Juan De La Vega III, MD [Primary Care Provider] - Please follow up with your Primary Care Physician in: in 7 days Disposition: Home Minutes spent on discharge:: 25 Patient Condition:: Stable Medical Necessity - Tobacco Use Smoking Status: Light Smoker (<10/day) Tobacco Use: Cigarettes Meaningful Use Info Meaningful Use Diagnoses (Choose all that apply): None applicable Code Visit OBSV E&M: 37018 Observation care discharge
== END 2018-02-03 10:03 | disposition home or self-care (01) ==
LOC: ED 12:17 → PCU 12:20
PROVIDERS: Admitting Provider Internal Medicine; Emergency Provider Emergency Medicine; Family Provider Family Medicine; PCP Family Medicine; Visit Provider Internal Medicine
DX: J44.1 Chronic obstructive pulmonary disease with (acute) exacerbation (principal); I25.5 Ischemic cardiomyopathy; I13.0 Hypertensive heart and chronic kidney disease with heart failure and stage 1 through stage 4 chronic kidney disease, or unspecified chronic kidney disease; E11.22 Type 2 diabetes mellitus with diabetic chronic kidney disease; N18.3 Chronic kidney disease, stage 3 (moderate); I50.22 Chronic systolic (congestive) heart failure; K21.9 Gastro-esophageal reflux disease without esophagitis; E78.5 Hyperlipidemia, unspecified; G89.29 Other chronic pain; M10.9 Gout, unspecified; I25.2 Old myocardial infarction; E66.01 Morbid (severe) obesity due to excess calories; Z68.31 Body mass index [BMI] 31.0-31.9, adult; Z71.3 Dietary counseling and surveillance; Z91.19 Patient's noncompliance with other medical treatment and regimen; Z79.02 Long term (current) use of antithrombotics/antiplatelets; Z79.899 Other long term (current) drug therapy; Z79.82 Long term (current) use of aspirin; Z95.5 Presence of coronary angioplasty implant and graft; F17.210 Nicotine dependence, cigarettes, uncomplicated; M47.896 Other spondylosis, lumbar region
CPT/HCPCS: 36415; 71046; 80048; 82962; 83880; 84484; 85025; 93005; 94640; 96372; 96374; 96375; 96376; 99218; 99251; 99282; A4216; G0378; G0463; J1940

== ENCOUNTER 2018-04-24 12:24 | Emergency (ER) | payer MEDICARE, MEDICAID, SELFPAY ==
[2018-04-24 12:26] VITALS: BP 109/60; PULSE 74; RESP 15; TEMP 36.5; O2SAT 96; BMI 33.4
--- NOTE | 2018-04-24 12:53 | CT_ITS ---
STUDY: CT BRAIN WITHOUT CONTRAST REASON FOR EXAM: Male, 68 years old. Fall with head injury RADIATION DOSAGE (If Supplied By Facility): CTDIvol = ( 44.99 ) mGy, DLP = ( 829.85 ) mGycm TECHNIQUE: Transaxial CT imaging of the brain was performed without administration of intravenous contrast material. Individualized dose optimization techniques were used for this CT. COMPARISON: 10/17/2017 FINDINGS: Normal soft tissue structures. Normal calvarium. There is moderate cerebral atrophy with widening of the extra-axial spaces and ventricular dilatation. There are areas of decreased attenuation within the white matter tracts of the supratentorial brain, consistent with microvascular disease changes. Normal basal ganglia and thalami. Normal brainstem. There is mild cerebellar atrophy. 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 There is no intracranial hemorrhage. There are no findings of an acute ischemic infarction. Normal visualized paranasal sinuses. CT/Brain/Head without Contrast IMPRESSION: Chronic involutional changes of the brain. Electronically Signed: Yosef Simpson DO at 13:55 EDT Tel , Service support ,
--- NOTE | 2018-04-24 12:54 | CT_ITS ---
STUDY: CT ABDOMEN AND PELVIS WITHOUT CONTRAST REASON FOR EXAM: Male, 68 years old. Back pain after fall RADIATION DOSAGE (If Supplied By Facility): CTDIvol = ( 22.05 ) mGy, DLP = ( 1057.86 ) mGycm TECHNIQUE: Transaxial images were obtained from the dome of the diaphragm to the symphysis pubis without oral contrast, and without intravenous contrast. Sagittal and coronal images were reconstructed. Individualized dose optimization techniques were used for this CT. COMPARISON: 09/16/2017 FINDINGS: The visualized lung bases are unremarkable. Cardiomegaly. Normal liver. Normal gallbladder and extrahepatic biliary system. Normal spleen. Normal pancreas. Normal bilateral adrenal glands. Normal right kidney. Normal left kidney. There is a small hiatal hernia. Normal small intestine. There are multiple colonic diverticula consistent with diverticulosis. The appendix is visualized and appears normal. There is diffuse atherosclerotic calcification of the abdominal aorta, without a demonstrated aneurysm. Normal inferior vena cava. Normal retroperitoneum. Normal urinary bladder. Normal visualized prostate gland. Normal abdominal wall. There are diffuse degenerative changes of the visualized lumbar spine. CT/Abdomen/Pelvis without Cont IMPRESSION: No acute findings. Stable chronic changes. Electronically Signed: Yosef Simpson DO at 13:51 EDT Tel , Service support ,
--- NOTE | 2018-04-24 12:54 | CT_ITS ---
STUDY: CT CERVICAL SPINE WITHOUT CONTRAST REASON FOR EXAM: Male, 68 years old. Status post fall with neck pain RADIATION DOSAGE (If Supplied By Facility): CTDIvol = ( 27.45 ) mGy, DLP = ( 605.08 ) mGycm TECHNIQUE: High resolution transaxial imaging was performed without contrast material. Sagittal and coronal images were reconstructed. Individualized dose optimization techniques were used for this CT. COMPARISON: 12/07/2017 FINDINGS: Normal craniovertebral junction. Normal anterior atlantoaxial articulation. Normal odontoid process. Normal cervical lordosis. Normal vertebral bodies and posterior osseous elements. No acute fracture or listhesis. Mild multilevel degenerative disc disease without critical central canal stenosis. Normal visualized soft tissue structures. CT/Spine Cervical without Contras IMPRESSION: Multilevel degenerative changes, as described above. Electronically Signed: Yosef Simpson DO at 13:53 EDT Tel , Service support ,
--- NOTE | 2018-04-24 12:55 | RAD_ITS ---
STUDY: X-RAY - LEFT SHOULDER REASON FOR EXAM: Male, 68 years old. Pain following fall. TECHNIQUE: 2 view(s) of the shoulder. COMPARISON: None. FINDINGS: Normal glenohumeral articulation. Normal acromioclavicular joint. Normal acromion. Normal humeral head and visualized proximal humerus. There is periarticular soft tissue calcification consistent with a calcific tendinitis. There is a dual-chamber left pacemaker. RAD/Shoulder min 2 Views IMPRESSION: 1. No demonstrated acute fracture or dislocation. 2. Minimal calcific tendinitis of the left shoulder. Electronically Signed: Bruno Mccullough MD at 14:02 EDT Tel , Service support ,
[2018-04-24] MEDS: 0.9% Normal Saline 1,000 ML 150 ML IV (13:11)
[2018-04-24] MEDS: Ondansetron 4 MG/2 ML Vial IV (13:11)
[2018-04-24] MEDS: Morphine 4 MG/ML Syringe IV (13:11)
--- NOTE | 2018-04-24 13:30 | RAD_ITS ---
STUDY: X-RAY - LEFT ELBOW REASON FOR EXAM: Male, 68 years old. Left elbow pain after fall TECHNIQUE: 3 view(s) of the elbow. COMPARISON: None. FINDINGS: Normal visualized humerus, radius and ulna. Normal radiocapitellar and ulnotrochlear articulations. The soft tissue structures are unremarkable. RAD/Elbow min 3 Views IMPRESSION: Normal x-ray examination of the elbow. Electronically Signed: Yosef Simpson DO at 14:19 EDT Tel , Service support ,
[2018-04-24] MEDS: HYDROmorphone 1 MG/ML Syringe IV (13:50)
--- NOTE | 2018-04-24 14:07 | ED.VISSUMM ---
- ER Visit Summary Date of Service: 04/24/18 Chief Complaint: [Fall] History of Present Illness: The patient is a 68 M [since the emergency department complaint of a fall that occurred randomly 40 minutes prior to coming the emergency department. Patient states that he tripped over his new house slippers while walking down the driveway. Patient states he was walking his great granddaughter out to her car. Patient states that he kind of fell backwards with his low back against the curb. Patient did hit his head but denies loss of consciousness. Patient was able to stand was ambulatory but presents via EMS. Patient complains of pain in his neck, left shoulder, left elbow, back, and left hip.] Physical Examination: [HEENT-PERRLA, EOMI. Cranial nerves II through XII grossly intact. TMs clear. Mucous membranes moist. No adenopathy. Patient has a c-collar in place and diffuse tenderness to palpation over the C-spine. No bony step-offs noted. Cardiovascular-regular rate and rhythm without murmur or ectopy Lungs-clear to auscultation, chest wall stable without crepitus or subcu emphysema Abdomen-normoactive bowel sounds, soft, nontender, no rebound or rigidity, no peritoneal signs. Back exam-patient does have tenderness diffusely about the lumbar spine. No significant tenderness over the thoracic spine. No bony step-offs noted. Extremities-intact ?4, normal range of motion, normal pulses. Patient has some mild tenderness over the left shoulder diffusely. No obvious deformity. No sulcus sign. Patient also has some mild tenderness diffusely about the elbow and he does have a superficial skin avulsion. Neurovascular intact distally. Left hip-mild tenderness to palpation however there is no shortening or external rotation of the extremity. Test Results: [CT scan of the brain without contrast showed chronic involutional changes otherwise nothing acute. CT C-spine showed degenerative changes. CT abdomen and pelvis showed nothing acute. X-rays of the left shoulder and left elbow were negative for fracture.] Emergency Department Course and Treatment: [Initially medicated with morphine and Zofran however he continued complaint of pain and was medicated with Dilaudid 1 mg IV.] Treatment Plan: [Patient advised to follow-up with his primary care physician within next 5-7 days. Patient has Percocet at home for pain.] Disposition: [Discharged home in stable condition] Impression: [Mechanical fall Close head injury Cervical strain Contusion back Contusion left elbow and shoulder.] This note was generated with [employer] dictation software. It may contain incorrect words, spelling, and punctuation that were not noted in review of the chart prior to signing ED Disposition - Plan for ED Patient: Chief Complaint: Fall Referrals: Juan De La Vega III, MD [Primary Care Provider] -
--- NOTE | 2018-04-24 14:10 | ED.DEP ---
ED Disposition - Plan for ED Patient: Chief Complaint: Fall Instructions: ED Mechanical Fall, ED Sprain Strain Neck, ED Head Injury Closed, ED Contusion Back, ED Contusion Elbow Referrals: Juan De La Vega III, MD [Primary Care Provider] - 5-7 Days
[2018-04-24] MEDS: Diphth,Pertuss(Acell),Tet Vac 0.5 ML Vial IM (14:41)
== END 2018-04-24 14:47 | disposition home or self-care (01) ==
LOC: ED 13:43
PROVIDERS: Emergency Provider Emergency Medicine; Family Provider Family Medicine; PCP Family Medicine
DX: S16.1XXA Strain of muscle, fascia and tendon at neck level, initial encounter (principal); S30.0XXA Contusion of lower back and pelvis, initial encounter; S50.02XA Contusion of left elbow, initial encounter; S40.012A Contusion of left shoulder, initial encounter; W18.09XA Striking against other object with subsequent fall, initial encounter; Y93.01 Activity, walking, marching and hiking; Y92.093 Driveway of other non-institutional residence as the place of occurrence of the external cause; Y99.9 Unspecified external cause status; I25.10 Atherosclerotic heart disease of native coronary artery without angina pectoris; E11.9 Type 2 diabetes mellitus without complications; E78.00 Pure hypercholesterolemia, unspecified; J44.9 Chronic obstructive pulmonary disease, unspecified; N18.9 Chronic kidney disease, unspecified; M54.9 Dorsalgia, unspecified; G89.29 Other chronic pain; Z95.1 Presence of aortocoronary bypass graft; I12.9 Hypertensive chronic kidney disease with stage 1 through stage 4 chronic kidney disease, or unspecified chronic kidney disease
CPT/HCPCS: 70450; 72125; 73030; 73080; 74176; 90471; 90715; 96361; 96374; 96375; 99285; J7030; J2405

== ENCOUNTER 2018-05-08 10:49 | Emergency (ER) | payer MEDICARE, MEDICAID, SELFPAY ==
[2018-05-08] VITALS (9 sets, daily range): BP systolic 81–108; BP diastolic 45–70; PULSE 69–89; RESP 13–21; TEMP 36.5; O2SAT 91–97; BMI 33.4
--- NOTE | 2018-05-08 11:19 | EKG12_ITS ---
Test Reason : CP Blood Pressure : / mmHG Vent. Rate : 089 BPM Atrial Rate : 089 BPM P-R Int : 150 ms QRS Dur : 100 ms QT Int : 404 ms P-R-T Axes : 045 -06 125 degrees QTc Int : 491 ms Normal sinus rhythm ST & T wave abnormality, consider lateral ischemia Prolonged QT Abnormal ECG Confirmed by SHAVONNE LUNDBERG, LISA ([id number]), content editor LANDRY YARBROUGH ([id number]) on 05/10/2018 3:32:07 PM Referred By: ISABELL/MAURO Confirmed By:LISA MARVIN MD
--- NOTE | 2018-05-08 11:19 | RAD_ITS ---
STUDY: X-RAY CHEST REASON FOR EXAM: Male, 68 years old. Chest pain and dyspnea. TECHNIQUE: PA and lateral views of the chest. COMPARISON: 02/02/2018. FINDINGS: There again is a dual-chamber left pacemaker in stable position. There is a small calcified granuloma in the right lower lung. No new infiltrate is seen. There is no demonstrated pleural abnormality. Sternal cerclage wires and vascular clips are present from a prior sternotomy and coronary artery bypass graft procedure (CABG). The heart is within normal limits in size. Normal mediastinum and serjio. Normal visualized pulmonary arteries. There is mild atherosclerotic tortuosity of the aortic arch and descending thoracic aorta. There are mild degenerative changes of the visualized thoracic spine. Normal visualized ribs, clavicles, and shoulders. There is no demonstrated abnormality of the visualized soft tissue structures of the upper abdomen. RAD/Chest PA and Lateral IMPRESSION: 1. No significant change. 2. No active pulmonary disease. 3. Left pacemaker in stable position. 4. Status post CABG. Electronically Signed: Bruno Mccullough MD at 13:23 EDT Tel , Service support ,
--- NOTE | 2018-05-08 11:24 | ED.DCSUM_ITS ---
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 Started with coughing and wheezing, progressively worsening, and progressing to gradual onset of bilateral chest discomfort that is much worse with movement and coughing especially. He states it does not feel like angina. - Past Medical History (1) Benign essential hypertension Status: Chronic (2) CAD (coronary artery disease) Status: Chronic (3) COPD (chronic obstructive pulmonary disease) Status: Chronic (4) Chronic back pain Status: Chronic (5) Chronic renal failure, stage 3 (moderate) Status: Chronic (6) Chronic systolic (congestive) heart failure Status: Chronic (7) Degenerative cervical disc Status: Chronic (8) Gastroesophageal reflux disease Status: Chronic (9) Gout Status: Chronic (10) Hyperlipidemia Status: Chronic (11) Ischemic cardiomyopathy Status: Chronic Comment: 25% ejection fraction in November 2016 (12) Presence of automatic implantable cardioverter-defibrillator Status: Chronic (13) Sciatica Status: Chronic (14) Type 2 diabetes mellitus Status: Chronic (15) V-tach Status: Chronic Comment: has an AICD (16) H/O coronary artery bypass surgery Status: Resolved Comment: HUMPHREY-LAD, SVG-D1, SVG-OM Past Medical History - Allergies and Home Meds Allergies/Adverse Reactions: Allergies chlorpromazine HCl [From Thorazine] Allergy (Severe, Verified 05/08/18 11:10) Hives PER PATIENT tramadol HCl [From Ultram] Allergy (Severe, Verified 05/08/18 11:10) Hives PER PATIENT codeine Allergy (Intermediate, Verified 05/08/18 11:10) Hives atorvastatin Adverse Reaction (Intermediate, Verified 05/08/18 11:10) Other LEG PAIN/CRAMPS naproxen Adverse Reaction (Verified 05/08/18 11:10) Upset Stomach promethazine [From Phenergan] Adverse Reaction (Verified 05/08/18 11:10) Other CONFUSION Primary Care Physician: Juan De La Vega III, MD [Primary Care Provider] - Surgical History: angioplasty - stents x10, coronary bypass surgery, - - AICD placement, back surgery x 2, hernia repair Smoking Status: Current some day smoker - Family History Paternal Family History: Family History (Last Reviewed 12/15/17 @ 10:18 by Ramonita Alcantar) Brother CAD (coronary artery disease) Myocardial infarction Sudden cardiac Mother Cancer Hypertension Father Cancer COPD (chronic obstructive pulmonary disease) Family History: Reports: Cancer, Heart Disease Maternal Family History: Family History (Last Reviewed 12/15/17 @ 10:18 by Ramonita Alcantar) Brother CAD (coronary artery disease) Myocardial infarction Sudden cardiac Mother Cancer Hypertension Father Cancer COPD (chronic obstructive pulmonary disease) Family History: Reports: Cancer Review of Systems General: Reports: Malaise. Denies: Chills, Fever, Sweats Eyes: Denies: Visual changes - bilaterally, Diplopia ENT: Denies: Bilateral ear pain, Sore throat Cardiovascular: Reports: Chest pain. Denies: Palpitations Respiratory: Reports: Dyspnea, Cough, Dyspnea on exertion. Denies: Sputum, Orthopnea Gastrointestinal: Reports: Nausea, Vomiting. Denies: Abdominal pain, Diarrhea, Melena, Hematochezia Genitourinary: Denies: Dysuria, Hematuria, Frequency Musculoskeletal: Reports: Myalgias - Especially calves, cramping, Back pain - Chronic. Denies: Swelling Skin: Denies: Rash, Wounds Neurological: Denies: Headache, Weakness, Numbness Psych: Denies: Depression, Anxiety Endocrine: Denies: Heat intolerance, Cold intolerance Hematologic: Denies: Easy bruising, Easy bleeding Allergy: Denies: Swelling of the mouth, Swelling of the tongue Physical Exam Vital Signs/Narrative: Vital Signs Temp Pulse Resp BP Pulse Ox 05/08/18 10:53 89 20 H 93/62 97 05/08/18 10:50 97.7 F L 88 20 H 93/62 95 Inital Vital Signs reviewed: Yes General: Well nourished, Well developed Head: Normocephalic, Atraumatic Eyes: Perrl, EOMI ENT: Moist mucous membranes, No rhinorrhea Neck: Supple, Nontender, No lymphadenopathy, No JVD Cardiovascular: Regular rate, Regular rhythm, No murmurs Respiratory: No distress, Wheezing, Chest tenderness - diffuse significantly tender anteriorly. Negative for: Rales, Rhonchi Abdomen: Soft, Nontender, Nondistended, Normal bowel sounds Back: Normal Inspection. Negative for: CVA tenderness Extremities: Nontender, No edema Skin: Normal color, No rash Neurological: Alert, Oriented x3, Cranial nerves II-XII grossly intact, Normal Strength, Normal Sensation Psychological: Normal affect Diagnostic/Tx/Re-eval Impressions Chest X-Ray 05/08/18 11:19 IMPRESSION: 1. No significant change. 2. No active pulmonary disease. 3. Left pacemaker in stable position. 4. Status post CABG. Electronically Signed: Bruno Mccullough MD at 13:23 EDT Tel , Service support , 05/08/18 11:19 Chest PA and Lateral [RAD] Stat Laboratory Results 05/08/18 05/08/18 05/08/18 11:00 11:00 15:28 WBC 7.1 RBC 3.86 L Hgb 11.6 L Hct 35.5 L MCV 92.0 MCH 30.1 MCHC 32.7 RDW 15.0 H RDW Differential 50.3 H Plt Count 202 MPV 9.8 Immature Gran % (Auto) 0.000 Neut % (Auto) 54.2 Lymph % (Auto) 28.5 [place] % (Auto) 11.6 H Eos % (Auto) 5.6 H Baso % (Auto) 0.1 Absolute Neuts (auto) 3.8 Absolute Lymphs (auto) 2.02 Total Counted Not Reportable Sodium 141 Potassium 4.3 Chloride 105 Carbon Dioxide 24.0 Anion Gap 12 BUN 36 H Creatinine 1.66 H Estim Creat Clear Calc 43.18 Est GFR (MDRD) Af Amer 53 L Est GFR (MDRD) Non-Af 44 L BUN/Creatinine Ratio 21.7 H Glucose 126 H Calcium 8.9 Troponin I 0.022 Urine Color Yellow Urine Clarity Clear Urine pH 6.0 Ur Specific [place] 1.015 Urine Protein Negative Urine Glucose (UA) Normal Urine Ketones Negative Urine Occult Blood Negative Urine Nitrite Negative Urine Bilirubin Negative Urine Urobilinogen Normal Ur Leukocyte Esterase Negative - Rhythm Strip Rhythm Strip: Sinus Rhythm Rate: 89 Ectopy: None - EKG Initial EKG Interpretation: Sinus Rhythm, No Acute Injury Pattern, Non-Specific ST Changes, - - mildly prolonged QTc - Medical Decision Making Patient received several doses of morphine as well as a half dose of Toradol because of his chest wall pain. And troponin confirm that he is not having acute coronary syndrome. His x-ray shows no infiltrates. He had done for her albuterol treatments prior to arrival so he was given a duo nebulizer, improved but still wanted some more treatment so later he was given 2 more albuterol's. He was much better on reevaluation but after the pain medication his blood pressure dropped to 85/50. He was a little somnolent but easily arousable. He states that his doctor once his blood pressure on the low side, around 100 systolic. He was 93/67 when he got here which I think is okay, he was given 500 cc of fluid, his blood pressure is now 108/70 and he is doing well. He was given Solu-Medrol 125 mg IV. His chest discomfort was much better, clearly musculoskeletal in nature. He wanted something prior to discharge so he was given Tylenol. I do not think he needs to be prescribed narcotics for this. I think he is okay to be discharged home. Given his slight decrease in blood pressure, we performed a urinalysis that is normal showing no signs of infection. I do not think he is septic. He is discharged on doxycycline given his mildly prolonged QTC, avoiding macrolides and fluoroquinolones, as well as prednisone taper. Advised to follow-up closely. ED Disposition - Plan for ED Patient: Disposition: Home or Assisted Living Chief Complaint: Chest Pain Diagnosis: Musculoskeletal chest pain, Chronic bronchitis, COPD exacerbation Instructions: ED Strain Chest Wall, ED COPD Flare Prescriptions: Prednisone 10 mg PO UD #30 tab Doxycycline Hyclate 1 cap PO BID #20 cap Referrals: Juan De La Vega III, MD [Primary Care Provider] - 3-5 Days if not improving
[2018-05-08] MEDS: Ipratropium/Albuterol Sulfate 3 ML AMPUL.NEB INHALATION (11:28)
[2018-05-08 11:32] LABS: Absolute Lymphocyte Count 2.02 X10^3/ul (0.83-4.51); Absolute Neutrophil Count 3.8 X10^3/uL (2.0-7.7); Basophil# 0.01 X10^3/uL; Basophil% 0.1 % (0-1); Eosinophils% 5.6 % (0-5); Hematocrit 35.5 % (40-54); Hemoglobin 11.6 g/dl (13.0-16.5); Lymphocyte # 2.02 X10^3/ul (4.0); Lymphocyte % 28.5 % (19-41); Mean Corp Hgb Conc 32.7 g/gl (32-36); Mean Corpuscular Hgb 30.1 pg (27.0-32.0); Mean Platelet Vol. 9.8 fl (6.2-12.0); Monocyte# 0.82 X10^3/uL; Monocyte% 11.6 % (0-10); Neutrophil # 3.83 X10^3/uL (2.7-7.7); Neutrophil % 54.2 % (47-70); POSITIVE COUNT NO; POSITIVE DIFFERENTIAL NO; POSITIVE MORPHOLOGY NO; Platelet Count 202 K/mm3 (150-450); RBC Distribution Width SD 50.3 fl (35.1-43.9); Red Blood Count 3.86 M/mm3 (4.6-6.2); White Blood Count 7.1 K/mm3 (4.4-11.0)
[2018-05-08] MEDS: Ondansetron 4 MG/2 ML Vial IV (11:37)
[2018-05-08] MEDS: MethylPREDNISolone 125 MG/2 ML Vial IV (11:37)
[2018-05-08] MEDS: Morphine 4 MG/ML Syringe IV ×2 (11:38→13:29)
[2018-05-08] MEDS: Ketorolac 15 MG/ML Vial IV (11:42)
[2018-05-08 11:46] LABS: Anion Gap 12 (5-15); BUN 36 mg/dL (7-18); BUN/Creat Ratio 21.7 RATIO (10-20); Calcium,Total 8.9 mg/dL (8.5-10.1); Chloride 105 mmol/L (98-107); Creatinine, Serum 1.66 mg/dL (0.70-1.30); EST Glomerular Filtration Rate 44 mL/min (>60); Est Glom Filt Rate - Afr Amer 53 mL/min (>60); Estimated Creatinine Clearance 43.18 ml/min; Glucose 126 mg/dL (74-106); Potassium 4.3 mmol/L (3.5-5.1); Sodium Level 141 mmol/L (136-145)
--- NOTE | 2018-05-08 12:43 | ED.RN ---
NOTIFIED DR. WHYTE OF PATIENTS BLOOD PRESSURE.
[2018-05-08] MEDS: Albuterol 2.5 MG/3 ML VIAL.NEB. INHALATION ×2 (12:46)
[2018-05-08] MEDS: Mag Hydrox/Al Hydrox/Simeth 30 ML UDC PO (12:52)
[2018-05-08 15:40] LABS: Bacteria 0 SEEN /hpf (None Seen); Mucous, Urine 0 SEEN /hpf (<or=2+); Red Blood Cells-Urine 0 SEEN /hpf (0-5); Squamous Epithelial Cells - UA 0 SEEN /hpf (0-5)
[2018-05-08 15:41] LABS: Color, Urine Yellow (Yellow); Glucose, Dipstick Normal (Normal); Ketone-Dipstick Negative (Negative); Leukocyte Esterase-Dipstick Negative /ul (Negative); Nitrite-Dipstick Negative (Negative); Occult Blood-Urine Negative /ul (Negative); Protein-Dipstick Negative (Negative); Specific Gravity, Urine 1.015 (1.002-1.030); Urine Bilirubin Dipstick Negative (Negative); Urine Clarity Clear (Clear); Urine Urobilinogen Normal (Normal)
[2018-05-08] MEDS: Acetaminophen 325 MG Tablet 650 MG PO (16:15)
[2018-05-08 16:28] LABS: Hyaline Cast 5-10 SEEN /lpf (0-5)
[2018-05-08 16:30] LABS: White Blood Cells 0-5 SEEN /hpf (0-5)
== END 2018-05-08 16:43 | disposition home or self-care (01) ==
PROVIDERS: Emergency Provider Emergency Medicine; Family Provider Family Medicine; PCP Family Medicine
DX: R07.89 Other chest pain (principal); J42 Unspecified chronic bronchitis; I25.10 Atherosclerotic heart disease of native coronary artery without angina pectoris; I50.32 Chronic diastolic (congestive) heart failure; N18.3 Chronic kidney disease, stage 3 (moderate); I12.9 Hypertensive chronic kidney disease with stage 1 through stage 4 chronic kidney disease, or unspecified chronic kidney disease; E78.5 Hyperlipidemia, unspecified; E11.9 Type 2 diabetes mellitus without complications; M54.9 Dorsalgia, unspecified; G89.29 Other chronic pain; K21.9 Gastro-esophageal reflux disease without esophagitis; M10.9 Gout, unspecified; I25.5 Ischemic cardiomyopathy; Z95.1 Presence of aortocoronary bypass graft; F17.200 Nicotine dependence, unspecified, uncomplicated
CPT/HCPCS: 71046; 80048; 81001; 84484; 85025; 93005; 94640; 99285; J7030; J7040; A4216; J2405

== ENCOUNTER 2018-05-11 12:27 | Emergency (ER) | payer MEDICARE, MEDICAID, SELFPAY ==
[2018-05-11 12:28] VITALS: BP 147/70; PULSE 102; RESP 20; TEMP 36.5; O2SAT 97; BMI 33.6
--- NOTE | 2018-05-11 12:58 | CT_ITS ---
STUDY: CT CERVICAL SPINE WITHOUT CONTRAST REASON FOR EXAM: Male, 68 years old. History of fall. Nasal abrasion. RADIATION DOSAGE (If Supplied By Facility): CTDIvol = ( 36.53 ) mGy, DLP = ( 743.90 ) mGycm TECHNIQUE: High resolution transaxial imaging was performed without contrast material. Sagittal and coronal images were reconstructed. Individualized dose optimization techniques were used for this CT. COMPARISON: Comparison is made with prior study dated April 24, 2018. FINDINGS: Normal craniovertebral junction. There are degenerative changes of the anterior atlantoaxial articulation. Normal odontoid process. There is straightening of the normal cervical lordosis. Normal vertebral bodies and posterior osseous elements. C2-3: Normal endplates. Normal disc height and morphology. Normal central canal and intervertebral neuroforamina. C3-4: Normal endplates. Normal disc height and morphology. Normal central canal and intervertebral neuroforamina. C4-5: Moderate degree of disc space narrowing with spondylosis. Uncovertebral arthrosis. Bilateral neural foraminal stenosis is worse on the right side. C5-6: Mild degree of disc space narrowing. Minimal anterior listhesis of C5 on C6. Facet joint hypertrophy and osteoarthritis of the right facet joint. Uncovertebral arthrosis. Bilateral neural foraminal stenosis worse on the right side. C6-7: Normal endplates. Normal disc height and morphology. Normal central canal and intervertebral neuroforamina. Normal visualized soft tissue structures. CT/Spine Cervical without Contras IMPRESSION: Multilevel degenerative changes, as described above. Electronically Signed: Arcenio Leary MD at 14:03 EDT Tel [phone], Service support ,
--- NOTE | 2018-05-11 12:58 | CT_ITS ---
STUDY: CT BRAIN WITHOUT CONTRAST REASON FOR EXAM: Male, 68 years old. Nasal laceration following a fall. Dizziness. RADIATION DOSAGE (If Supplied By Facility): CTDIvol = ( 60.81 ) mGy, DLP = ( 1067.08 ) mGycm TECHNIQUE: Transaxial CT imaging of the brain was performed without administration of intravenous contrast material. Individualized dose optimization techniques were used for this CT. COMPARISON: Comparison is made with prior study dated April 24, 2018. FINDINGS: Normal soft tissue structures. Normal calvarium. There is mild cerebral atrophy with widening of the extra-axial spaces and ventricular dilatation. There are areas of decreased attenuation within the white matter tracts of the supratentorial brain, consistent with microvascular disease changes. Stable encephalomalacia in the posterior aspect of the left parietal occipital lobes. Normal basal ganglia and thalami. Normal brainstem. Normal cerebellum. There is no intracranial hemorrhage. There are no findings of an acute ischemic infarction. Atherosclerotic calcification of the vertebral arteries and cavernous portions of the internal carotid arteries bilaterally. Mucosal thickening of the ethmoid sinuses. CT/Brain/Head without Contrast IMPRESSION: Chronic involutional changes of the brain. 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 No acute abnormality is seen. Electronically Signed: Arcenio Leary MD at 13:49 EDT Tel [phone], Service support ,
--- NOTE | 2018-05-11 13:02 | ED.DCSUM_ITS ---
- ER Visit Summary Date of Service: 05/11/18 Chief Complaint: [] Fall out of bed today History of Present Illness: The patient is a 68 M [] history of CABG, chronic lumbar back pain lumbar back surgery, reports he simply turned in bed did not realize he was at the edge of the bed and fell out of the bed striking his face. He had no LOC, he takes Percocet chronically for back pain indicates that back pain persisted he had some slight dizziness so he basically came to the emergency department via public transportation for evaluation. He has had no vomiting chest or abdominal pain his cardiovascular status and general health condition has been very stable and he again reports he simply turned and fell off the edge of the bed Physical Examination: [] Small abrasion to the bridge of his nose he is vital signs are within normal range she is in no distress his HEENT exam is otherwise unremarkable pupils equal reactive cranial nerves are normal complaint is very not mild paracervical neck discomfort no real midline neck discomfort his neck has full range of motion the chest heart tones seem normal and regular the lungs sound clear the abdomen soft nontender pelvis is stable he complains of vague pain to the low lumbar back he has full range of motion of his lower extremities and upper extremities his cranial nerves are normal his NIH is 0 He Did Walk into the emergency department without difficulty Test Results: [] Emergency Department Course and Treatment: [] His complaints and the fact that he is on Plavix head CT neck CT lumbar spine [place] for pain The patient's head and neck CT and lumbar spine x-rays show DJD old findings nothing acute, I made the patient aware of all the above he is currently on Percocet for chronic pain management I have asked him to continue to use that is given head injury instruction sheets I have cautioned him at the concept of multilevel cervical spine DJD and the need to follow-up his family doctors for all the above and he will do so, he is comfortable with discharge Treatment Plan: [] Disposition: [] Home stable Impression: [] fall With head neck and lumbar back injury This note was generated with [employer] [place] - 2 dictation software. It may contain incorrect words, spelling, and punctuation that were not noted in review of the chart prior to signing ED Disposition - Plan for ED Patient: Chief Complaint: Fall Referrals: Juan De La Vega III, MD [Primary Care Provider] -
[2018-05-11] MEDS: HYDROcodone Bitartrate/Apap 5/325 Tablet PO (13:12)
--- NOTE | 2018-05-11 13:27 | RAD_ITS ---
STUDY: X-RAY - LUMBAR SPINE REASON FOR EXAM: Male, 68 years old. Back pain following a fall. TECHNIQUE: 5 view(s) of the lumbar spine were obtained including oblique views. COMPARISON: Comparison is made with prior study dated October 12, 2015. FINDINGS: Normal lumbar lordosis. There is no substantial scoliosis. There is a normal alignment of the vertebrae. There is multilevel endplate spondylosis of the lumbar vertebrae. There is multi-level degenerative disc disease with multi-level disc space narrowing. There is atherosclerotic calcification of the abdominal aorta without a demonstrated aneurysm. RAD/L/S Spine Min 4 Views IMPRESSION: Degenerative changes of the spine, as detailed above. Electronically Signed: Arcenio Leary MD at 14:04 EDT Tel [phone], Service support ,
--- NOTE | 2018-05-11 14:09 | ED.DEP ---
ED Disposition - Plan for ED Patient: Chief Complaint: Fall Instructions: ED Mechanical Fall, ED Head Injury Closed Referrals: Juan De La Vega III, MD [Primary Care Provider] -
[2018-05-11 14:27] VITALS: RESP 18
== END 2018-05-11 14:33 | disposition home or self-care (01) ==
LOC: ED 13:24
PROVIDERS: Emergency Provider Emergency Medicine; Family Provider Family Medicine; PCP Family Medicine
DX: S39.92XA Unspecified injury of lower back, initial encounter (principal); S09.90XA Unspecified injury of head, initial encounter; S19.9XXA Unspecified injury of neck, initial encounter; W06.XXXA Fall from bed, initial encounter; Y93.9 Activity, unspecified; Y92.003 Bedroom of unspecified non-institutional (private) residence as the place of occurrence of the external cause; Y99.9 Unspecified external cause status; M54.5 Low back pain; G89.29 Other chronic pain; Z95.1 Presence of aortocoronary bypass graft
CPT/HCPCS: 70450; 72110; 72125; 99283

== ENCOUNTER 2018-05-20 15:44 | Inpatient (IN) | payer MEDICARE, MEDICAID, SELFPAY ==
[2018-05-20] VITALS (15 sets, daily range): BP systolic 87–114; BP diastolic 55–75; PULSE 79–99; RESP 16–28; TEMP 36.4–36.9; O2SAT 90–95; BMI 30.8; BMI 30.7
--- NOTE | 2018-05-20 16:26 | EKG12_ITS ---
Test Reason : Blood Pressure : / mmHG Vent. Rate : 086 BPM Atrial Rate : 086 BPM P-R Int : 138 ms QRS Dur : 104 ms QT Int : 404 ms P-R-T Axes : 053 008 130 degrees QTc Int : 483 ms Sinus rhythm with Premature atrial complexes ST & T wave abnormality, consider lateral ischemia Prolonged QT Abnormal ECG Confirmed by GERONIMO BLOOM ([id number]), legal editor LANDRY YARBROUGH ([id number] on 05/25/2018 8:50:34 AM Referred By: BRODIE Confirmed By:GERONIMO BLOOM
--- NOTE | 2018-05-20 16:26 | RAD_ITS ---
STUDY: X-RAY CHEST REASON FOR EXAM: Male, 68 years old. Severe cough and shortness of breath. TECHNIQUE: Single AP portable view of the chest. COMPARISON: Prior chest radiograph of May 08, 2018. FINDINGS: Lung bui are expanded with stable chronic changes without new consolidation, focal atelectasis or a substantial pleural effusion. There is no demonstrated pleural abnormality. Normal size heart. Status post prior midline sternotomy with a right atrial pacemaker in good position and a right ventricular defibrillator lead in good position. Normal visualized pulmonary arteries. Mild elongation of the thoracic aorta. Normal visualized ribs, clavicles, and shoulders. There is no demonstrated abnormality of the visualized soft tissue structures of the upper abdomen. RAD/Chest 1 View (Portable) IMPRESSION: Lung bui expanded without new consolidation, focal atelectasis or a substantial pleural effusion. Normal cardiac size status post prior midline sternotomy with ICD in good position. Electronically Signed: Rupinder Levine MD at 16:55 EDT , Service support ,
[2018-05-20 16:40] LABS: Absolute Lymphocyte Count 2.65 X10^3/ul (0.83-4.51); Basophil# 0.01 X10^3/uL; Basophil% 0.1 % (0-1); Eosinophil# 0.14 X10^3/uL; Eosinophils% 1.3 % (0-5); Hematocrit 40.5 % (40-54); Hemoglobin 13.2 g/dl (13.0-16.5); Lymphocyte # 2.65 X10^3/ul (4.0); Lymphocyte % 25.3 % (19-41); Mean Corp Hgb Conc 32.6 g/gl (32-36); Mean Corpuscular Hgb 30.4 pg (27.0-32.0); Mean Corpuscular Volume 93.3 fL (80-94); Mean Platelet Vol. 9.7 fl (6.2-12.0); Monocyte# 0.64 X10^3/uL; Monocyte% 6.1 % (0-10); Neutrophil # 7.02 X10^3/uL (2.7-7.7); Neutrophil % 66.9 % (47-70); Platelet Count 227 K/mm3 (150-450); RBC Distribution Width SD 51.3 fl (35.1-43.9); Red Blood Count 4.34 M/mm3 (4.6-6.2); White Blood Count 10.5 K/mm3 (4.4-11.0)
[2018-05-20] MEDS: Albuterol 2.5 MG/3 ML VIAL.NEB. INHALATION ×3 (16:45→17:26)
[2018-05-20 16:50] LABS: POSITIVE COUNT NO; POSITIVE DIFFERENTIAL NO; POSITIVE MORPHOLOGY NO
[2018-05-20 17:04] LABS: Lactic Acid 1.2 mmol/L (0.4-2.0)
[2018-05-20 17:05] LABS: Anion Gap 10 (5-15); BUN 31 mg/dL (7-18); BUN/Creat Ratio 21.4 RATIO (10-20); Calcium,Total 8.5 mg/dL (8.5-10.1); Chloride 102 mmol/L (98-107); Creatinine, Serum 1.45 mg/dL (0.70-1.30); EST Glomerular Filtration Rate 52 mL/min (>60); Est Glom Filt Rate - Afr Amer 62 mL/min (>60); Estimated Creatinine Clearance 49.44 ml/min; Glucose 181 mg/dL (74-106); Potassium 3.4 mmol/L (3.5-5.1); Sodium Level 139 mmol/L (136-145)
[2018-05-20] MEDS: MethylPREDNISolone 125 MG/2 ML Vial IV (17:43)
--- NOTE | 2018-05-20 17:46 | ED.VISSUMM ---
- ER Visit Summary Date of Service: 05/20/18 Chief Complaint: Shortness of breath History of Present Illness: The patient is a 68 M who presents with shortness of breath. This is been worse over the past 2 days. He was recently seen and diagnosed with COPD exacerbation. He was placed on prednisone at that time. He complains of congestion rhinorrhea sore throat sweats severe cough. He has had some mild diarrhea as well. He complains of bilateral rib pain from coughing. He states that he is not coughing so hard it has caused him to pass out. This has occurred before. He does have a history of coronary disease with AICD and prior CABG. He also has a history of congestive heart failure. Physical Examination: Afebrile vitals are stable Patient is tachypneic with bilateral rhonchi and wheezing Heart is regular rate and rhythm Abdomen soft 1+ symmetric lower extremity edema Alert Normal affect Test Results: EKG shows sinus rhythm at a rate of 86. He has T wave inversions in the lateral leads in 1 aVL and V4 through V6 this is similar to prior. Chest x-ray shows prior sternotomy and ICD no acute process. Labs notable for BUN 31, creatinine 1.45. Troponin negative. Lactic normal. Emergency Department Course and Treatment: Patient was given a DuoNeb aerosol. He was given a [place] for his chest wall pain. He was given IV Solu-Medrol. I do not believe his pain is due to acute cardiac ischemia given unchanged EKG and negative troponin and reproducibility of pain. I do believe this is likely related to chest wall strain from coughing associated with COPD exacerbation. Given the severity of his symptoms and reported posttussive syncope I feel he should be admitted. Treatment Plan: [] Disposition: Admit Impression: COPD exacerbation This note was generated with [employer] dictation software. It may contain incorrect words, spelling, and punctuation that were not noted in review of the chart prior to signing ED Disposition - Plan for ED Patient: Chief Complaint: Shortness of Breath Referrals: Juan De La Vega III, MD [Primary Care Provider] -
[2018-05-20] MEDS: oxyCODONE 5 MG Tablet PO (17:55)
--- NOTE | 2018-05-20 18:05 | PCM.HP.STD ---
Problem List (1) Shortness of breath Status: Acute History of Present Illness Date of Admission: 05/20/18 Chief Complaint: shortness of breath, cough The patient is a 68 year old M with a history of COPD, heart failure with reduced ejection fraction, Hypertension and hyperlipidemia, as well as CAD s/p CABG and AICD. He was admitted through the ED with a complaint of worsening shortness of breath for the past 3 days. He had assisted orthopnea, PND, wheezing but denied any lower extremity edema. He was recently seen and diagnosed with COPD exacerbation and given prednisone taper at that time and also complains of congestion, rhinorrhea, sore throat and sweats. He also had a cough which was productive of scanty sputum. He denies any assisted fever or chills, and also denied chest pain, abdominal pain, any diarrhea vomiting or lower extremity swelling. In the ED, vitals were significant for blood pressure 100/55 respiratory rate of 19 as well as temperature of 97.6. He was saturating at 95% on 2 L of oxygen. He is not on oxygen at home. Chemistry was significant for potassium of 3.4 and creatinine 1.45, which is around his baseline. CBC was unremarkable. EKG showed normal sinus rhythm with rate of 86 and T wave inversions in the lateral leads which is similar to previous EKGs. Chest x-ray showed sternotomy and ICD in no acute cardia pulmonary process. Initial troponin was negative. He has been admitted to be managed for COPD exacerbation. [] Past Medical History Past Medical History (Chronic Problems): Chronic Problems (Last Reviewed 12/15/17 @ 10:18 by Ramonita Alcantar) Musculoskeletal chest pain (Chronic) COPD (chronic obstructive pulmonary disease) (Chronic) Obesity (BMI 30.0-34.9) (Chronic) Chest pain (Chronic) Nicotine dependence (Chronic) Chronic bronchitis (Chronic) Sciatica (Chronic) Gout (Chronic) Degenerative cervical disc (Chronic) Claudication (Chronic) Chronic back pain (Chronic) Presence of automatic implantable cardioverter-defibrillator (Chronic) Chronic renal failure, stage 3 (moderate) (Chronic) Chronic systolic (congestive) heart failure (Chronic) Stented coronary artery (Chronic ~12/2016) has had 7 stents as of 06/15/17 Ischemic cardiomyopathy (Chronic) 25% ejection fraction in November 2016 V-tach (Chronic) has an AICD Benign essential hypertension (Chronic) Gastroesophageal reflux disease (Chronic) Hyperlipidemia (Chronic) Type 2 diabetes mellitus (Chronic) Morbid obesity (Chronic) CAD (coronary artery disease) (Chronic) Medical History: Medical History (Last Reviewed 12/15/17 @ 10:18 by Ramonita Alcantar) Nicotine dependence (Chronic) F17.200 Chronic bronchitis (Chronic) J42 Sciatica (Chronic) M54.30 Gout (Chronic) M10.9 Degenerative cervical disc (Chronic) M50.30 Claudication (Chronic) I73.9 Chronic back pain (Chronic) M54.9, G89.29 Chronic renal failure, stage 3 (moderate) (Chronic) N18.3 Chronic systolic (congestive) heart failure (Chronic) I50.22 Ischemic cardiomyopathy (Chronic) I25.5 25% ejection fraction in November 2016 V-tach (Chronic) I47.2 has an AICD Benign essential hypertension (Chronic) I10 Gastroesophageal reflux disease (Chronic) K21.9 Hyperlipidemia (Chronic) E78.5 Type 2 diabetes mellitus (Chronic) E11.9 Morbid obesity (Chronic) E66.01 CAD (coronary artery disease) (Chronic) I25.10 Acute non-ST segment elevation myocardial infarction (Resolved) I21.4 Colitis (Inactive) Tinea manus (Inactive) B35.2 Tubular adenoma of colon (Inactive) D12.6 Allergies chlorpromazine HCl [From Thorazine] Allergy (Severe, Verified 05/20/18 15:45) Hives PER PATIENT tramadol HCl [From Ultram] Allergy (Severe, Verified 05/20/18 15:45) Hives PER PATIENT codeine Allergy (Intermediate, Verified 05/20/18 15:45) Hives atorvastatin Adverse Reaction (Intermediate, Verified 05/20/18 15:45) Other LEG PAIN/CRAMPS naproxen Adverse Reaction (Verified 05/20/18 15:45) Upset Stomach promethazine [From Phenergan] Adverse Reaction (Verified 05/20/18 15:45) Other CONFUSION Home Medications: Ambulatory Orders Medication Instructions Recorded Nitroglycerin [Nitrostat] 0.4 mg SUBLINGUAL Q5M PRN 09/17/15 Isosorbide Mononitrate [Imdur] 30 mg PO DAILY 02/18/17 Albuterol Aerosols [Ventolin 2.5 mg INHALATION Q4H PRN PRN 02/23/17 Aerosols] Clopidogrel Bisulfate [Plavix] 75 mg PO DAILY #30 tab 06/17/17 albuterol sulfate HFA 90 2 puff INHALATION Q4H PRN g 07/31/17 mcg/actuation aerosol inhaler fenofibrate nanocrystallized 145 145 mg PO DAILY 07/31/17 mg tablet rosuvastatin 40 mg tablet 40 mg PO DAILY 07/31/17 spironolactone 25 mg tablet 25 mg PO QAM 07/31/17 Pantoprazole Sodium [Protonix] 40 mg PO DAILY 11/15/17 Oxycodone HCl/Acetaminophen 1 tab PO Q6H PRN PRN 5 Days #15 tab 12/03/17 [Percocet 7.5-325 mg Tablet] Aspirin E.C. [Ecotrin] 81 mg PO DAILY 02/02/18 proMETHazine tablet [Phenergan 25 mg PO Q6H PRN PRN 02/02/18 tablet] Prednisone 10 mg PO UD #30 tab 02/03/18 umeclidinium 62.5 mcg-vilanterol 1 inh INHALATION DAILY #60 ea 02/05/18 25 mcg/actuation powdr for inhalation Doxycycline Hyclate 1 cap PO BID #20 cap 05/08/18 Prednisone 10 mg PO UD #30 tab 05/08/18 Allopurinol 300 mg PO DAILY 05/20/18 Furosemide 40 mg PO DAILY 05/20/18 Metoprolol Succinate [Toprol Xl] 100 mg PO DAILY 05/20/18 Nicotine [Nicotine Patch] 21 mg TP DAILY 05/20/18 Surgical History: Surgical History (Last Reviewed 12/15/17 @ 10:18 by Ramonita Alcantar) Presence of automatic implantable cardioverter-defibrillator (Resolved) Z95.810 H/O coronary artery bypass surgery (Resolved) Onset Date: ~2008 Z95.1 HUMPHREY-LAD, SVG-D1, SVG-OM Stented coronary artery (Chronic) Onset Date: ~12/2016 has had 7 stents as of 06/15/17 Hx of hernia repair (Inactive) Z98.890, Z87.19 Previous back surgery (Inactive) Z98.890 Status post left heart catheterization (Inactive) Onset Date: ~12/2016 Z98.890 Surgical History: angioplasty - stents x10, coronary bypass surgery, - - AICD placement, back surgery x 2, hernia repair Smoking Status: Current some day smoker - *Family History Paternal Family History: Family History (Last Reviewed 12/15/17 @ 10:18 by Ramonita Alcantar) Brother CAD (coronary artery disease) Myocardial infarction Sudden cardiac Mother Cancer Hypertension Father Cancer COPD (chronic obstructive pulmonary disease) History Items: Cancer, Heart Disease Maternal Family History: Family History (Last Reviewed 12/15/17 @ 10:18 by Ramonita Alcantar) Brother CAD (coronary artery disease) Myocardial infarction Sudden cardiac Mother Cancer Hypertension Father Cancer COPD (chronic obstructive pulmonary disease) History Items: Cancer Review of Systems Constitutional: Reports: Malaise, Weakness, Fatigue. Denies: Anorexia, Chills, Fever Eyes: Denies: Blurred vision HEENT: Denies: Head Aches, Sinus Congestion, Sinus Drainage Cardiovascular: Reports: Orthopnea, Paroxysmal Noc. Dyspnea. Denies: Chest Pain, Chest Pressure, Edema, Light Headedness, Palpitations Respiratory: Reports: Cough, Shortness of Breath, Shortness of breath at rest, Shortness of breath upon exertion, Sputum production, Wheezing Gastrointestinal: Denies: Abdominal Pain, Nausea, Vomiting Genitourinary: Denies: Dysuria Musculoskeletal: Denies: Joint Pain, Joint Tenderness Skin: Denies: Rash, Wounds Neurological: Denies: Numbness, Tingling, Focal weakness Psychiatric: Denies: Anxiety, Depression, Homicidal Ideations, Suicidal Ideations Hematologic/ Lymphatic: Denies: Easy Bruising, Easy Bleeding VTE Information - Inpt Only VTE Present on Admission: No VTE Pharm Prophylaxis ordered?: Yes - Physical Exam General: Alert, Oriented x3, Cooperative, - - patient looks uncomfortable HEENT: Atraumatic, PERRLA, EOMI, Normocephalic Oral: Moist Mucosa Neck: Supple, No JVD, Negative Carotid Bruits Lungs: - - bilateral wheezing in all lung bui, with some coarse crackles bibasally. Cardiovascular: Regular Rhythm, Normal S1, Normal S2, No murmurs, Tachycardic Abdomen: Bowel Sounds Present, Soft, Non Tender, Non-Distended, No Hepato-splenomegaly Extremities: No clubbing, No cyanosis, No edema, Capillary Refill Less than 3 Seconds Skin: No rashes, No breakdown Musculoskeletal: No Tenderness to Palpation of Joints or Extremities Lymphatic: No Cervical, Supraclavicular, or Inguinal Adenopathy Neurological: Cranial nerves II-XII grossly intact, Neuro grossly intact Psych/Mental Status: Normal Affect, Appropriate, Alert and oriented to time, place, person, mood and affect Vital Signs Temp Pulse Resp BP Pulse Ox 97.6 F L 88 19 H 100/55 L 95 05/20/18 15:46 05/20/18 17:56 05/20/18 17:56 05/20/18 17:56 05/20/18 17:56 Oxygen Flow Rate (L/min) 2 Oxygen Delivery Method Nasal Cannula Weight: 208 lb 15.971 oz Body Mass Index (BMI) 30.8 Laboratory Tests Past 24 Hrs 05/20/18 05/20/18 05/20/18 16:20 16:20 16:20 WBC 10.5 RBC 4.34 L Hgb 13.2 Hct 40.5 MCV 93.3 MCH 30.4 MCHC 32.6 RDW 15.0 H RDW Differential 51.3 H Plt Count 227 MPV 9.7 Immature Gran % (Auto) 0.300 Neut % (Auto) 66.9 Lymph % (Auto) 25.3 [place] % (Auto) 6.1 Eos % (Auto) 1.3 Baso % (Auto) 0.1 Absolute Neuts (auto) 7.0 Absolute Lymphs (auto) 2.65 Total Counted Not Reportable Sodium 139 Potassium 3.4 L Chloride 102 Carbon Dioxide 27.0 Anion Gap 10 BUN 31 H Creatinine 1.45 H Estim Creat Clear Calc 49.44 Est GFR (MDRD) Af Amer 62 Est GFR (MDRD) Non-Af 52 L BUN/Creatinine Ratio 21.4 H Glucose 181 H Lactic Acid 1.2 Calcium 8.5 Troponin I < 0.015 Diagnostic Data Chest X-Ray 05/20/18 16:26 IMPRESSION: Lung bui expanded without new consolidation, focal atelectasis or a substantial pleural effusion. Normal cardiac size status post prior midline sternotomy with ICD in good position. Electronically Signed: Rupinder Levine MD at 16:55 EDT , Service support , Assessment/Plan All Active Problems (Last Reviewed 12/15/17 @ 10:18 by Ramonita Alcantar) Shortness of breath (Acute) URI (upper respiratory infection) (Resolved) Acute renal failure superimposed on stage 3 chronic kidney disease (Resolved) COPD exacerbation (Acute) JILLIAN (acute kidney injury) (Resolved) Acute hypoxemic respiratory failure (Resolved) Presence of automatic implantable cardioverter-defibrillator (Resolved) H/O coronary artery bypass surgery (Resolved ~2008) Abdominal pain (Resolved) Acute non-ST segment elevation myocardial infarction (Resolved) NSTEMI (non-ST elevated myocardial infarction) (Resolved) Non-STEMI (non-ST elevated myocardial infarction) (Resolved) [age]-year-old male with a history of COPD and heart failure with reduced ejection fraction admitted with a complaint of worsening shortness of breath and wheezing as well as a cough for the past 3 days. 1. COPD exacerbation Has wheezing in all lung bui and crackles bibasally Chest x-ray showed no acute cardia pulmonary process Previously admitted recently and given prednisone taper for COPD exacerbation. admit To PCU with telemetry IV Solu Medrol 40 mg every 8 Breathing treatments with duo nebs In light of recent COPD exacerbation, will start IV Levaquin Patient has received flu shot. Will still screen for influenza. We will cycle troponin to be sure to not due to coronary artery disease. Will also check BNP to make sure that it is not related to heart failure. guafenesin for cough 2. Hypokalemia: K is 3.4. will replace. 3. CAD s/p CSBG: on aspirina nd plavix, metoprolol and rosuvastatin. 4. HFrEF s/p AICD: EF ~ 25%. On lasix 40mg bid, imdur, and spironolactone 25 mg daily. 5. Hypertension: On metoprolol 50 mg daily and spironolactone. 6. Hyperlipidemia: On statin and fenofibrate DVT prophylaxis: Heparin GI prophylaxis: Famotidine CODE STATUS: FUll code Patient counseled extensively about different types of CODE STATUS including full code, DNR CCA and DNR CCA. Patient elects to be full code. [id number] time 18 minutes. Code Visit Inpatient E&M: 74869 Init Hosp L3 Procedures: 30003 Advncd Care Plan 30 Min
--- NOTE | 2018-05-20 18:10 | HP.PCM_ITS ---
Problem List (1) Shortness of breath Status: Acute History of Present Illness Date of Admission: 05/20/18 Chief Complaint: shortness of breath, cough The patient is a 68 year old M with a history of COPD, heart failure with reduced ejection fraction, Hypertension and hyperlipidemia, as well as CAD s/p CABG and AICD. He was admitted through the ED with a complaint of worsening shortness of breath for the past 3 days. He had assisted orthopnea, PND, w heezing but denied any lower extremity edema. He was recently seen and diagnosed with COPD exacerbation and given prednisone taper at that time and also complains of congestion, rhinorrhea, sore throat and sweats. He also had a cough which was productive of scanty sputum. He denies any assisted fever or chills, and also denied chest pain, abdominal pain, any diarrhea vomiting or lower extremity swelling. In the ED, vitals were significant for blood pressure 100/55 respiratory rate of 19 as well as temperature of 97.6. He was saturating at 95% on 2 L of oxygen. He is not on oxygen at home. Chemistry was significant for potassium of 3.4 and creatinine 1.45, which is around his baseline. CBC was unremarkable. EKG showed normal sinus rhythm with rate of 86 and T wave inversions in the lateral leads which is similar to previous EKGs. Chest x-ray showed sternotomy and ICD in no acute cardia pulmonary process. Initial troponin was negative. He has been admitted to be managed for COPD exacerbation. [] Past Medical History Past Medical History (Chronic Problems): Chronic Problems (Last Reviewed 12/15/17 @ 10:18 by Ramonita Alcantar) Musculoskeletal chest pain (Chronic) COPD (chronic obstructive pulmonary disease) (Chronic) Obesity (BMI 30.0-34.9) (Chronic) Chest pain (Chronic) Nicotine dependence (Chronic) Chronic bronchitis (Chronic) Sciatica (Chronic) Gout (Chronic) Degenerative cervical disc (Chronic) Claudication (Chronic) Chronic back pain (Chronic) Presence of automatic implantable cardioverter-defibrillator (Chronic) Chronic renal failure, stage 3 (moderate) (Chronic) Chronic systolic (congestive) heart failure (Chronic) Stented coronary artery (Chronic ~12/2016) has had 7 stents as of 06/15/17 Ischemic cardiomyopathy (Chronic) 25% ejection fraction in November 2016 V-tach (Chronic) has an AICD Benign essential hypertension (Chronic) Gastroesophageal reflux disease (Chronic) Hyperlipidemia (Chronic) Type 2 diabetes mellitus (Chronic) Morbid obesity (Chronic) CAD (coronary artery disease) (Chronic) Medical History: Medical History (Last Reviewed 12/15/17 @ 10:18 by Ramonita Alcantar) Nicotine dependence (Chronic) F17.200 Chronic bronchitis (Chronic) J42 Sciatica (Chronic) M54.30 Gout (Chronic) M10.9 Degenerative cervical disc (Chronic) M50.30 Claudication (Chronic) I73.9 Chronic back pain (Chronic) M54.9, G89.29 Chronic renal failure, stage 3 (moderate) (Chronic) N18.3 Chronic systolic (congestive) heart failure (Chronic) I50.22 Ischemic cardiomyopathy (Chronic) I25.5 25% ejection fraction in November 2016 V-tach (Chronic) I47.2 has an AICD Benign essential hypertension (Chronic) I10 Gastroesophageal reflux disease (Chronic) K21.9 Hyperlipidemia (Chronic) E78.5 Type 2 diabetes mellitus (Chronic) E11.9 Morbid obesity (Chronic) E66.01 CAD (coronary artery disease) (Chronic) I25.10 Acute non-ST segment elevation myocardial infarction (Resolved) I21.4 Colitis (Inactive) Tinea manus (Inactive) B35.2 Tubular adenoma of colon (Inactive) D12.6 Allergies chlorpromazine HCl [From Thorazine] Allergy (Severe, Verified 05/20/18 15:45) Hives PER PATIENT tramadol HCl [From Ultram] Allergy (Severe, Verified 05/20/18 15:45) Hives PER PATIENT codeine Allergy (Intermediate, Verified 05/20/18 15:45) Hives atorvastatin Adverse Reaction (Intermediate, Verified 05/20/18 15:45) Other LEG PAIN/CRAMPS naproxen Adverse Reaction (Verified 05/20/18 15:45) Upset Stomach promethazine [From Phenergan] Adverse Reaction (Verified 05/20/18 15:45) Other CONFUSION Home Medications: Ambulatory Orders Medication Instructions Recorded Nitroglycerin [Nitrostat] 0.4 mg SUBLINGUAL Q5M PRN 09/17/15 Isosorbide Mononitrate [Imdur] 30 mg PO DAILY 02/18/17 Albuterol Aerosols [Ventolin 2.5 mg INHALATION Q4H PRN PRN 02/23/17 Aerosols] Clopidogrel Bisulfate [Plavix] 75 mg PO DAILY #30 tab 06/17/17 albuterol sulfate HFA 90 2 puff INHALATION Q4H PRN g 07/31/17 mcg/actuation aerosol inhaler fenofibrate nanocrystallized 145 145 mg PO DAILY 07/31/17 mg tablet rosuvastatin 40 mg tablet 40 mg PO DAILY 07/31/17 spironolactone 25 mg tablet 25 mg PO QAM 07/31/17 Pantoprazole Sodium [Protonix] 40 mg PO DAILY 11/15/17 Oxycodone HCl/Acetaminophen 1 tab PO Q6H PRN PRN 5 Days #15 tab 12/03/17 [Percocet 7.5-325 mg Tablet] Aspirin E.C. [Ecotrin] 81 mg PO DAILY 02/02/18 proMETHazine tablet [Phenergan 25 mg PO Q6H PRN PRN 02/02/18 tablet] Prednisone 10 mg PO UD #30 tab 02/03/18 umeclidinium 62.5 mcg-vilanterol 1 inh INHALATION DAILY #60 ea 02/05/18 25 mcg/actuation powdr for inhalation Doxycycline Hyclate 1 cap PO BID #20 cap 05/08/18 Prednisone 10 mg PO UD #30 tab 05/08/18 Allopurinol 300 mg PO DAILY 05/20/18 Furosemide 40 mg PO DAILY 05/20/18 Metoprolol Succinate [Toprol Xl] 100 mg PO DAILY 05/20/18 Nicotine [Nicotine Patch] 21 mg TP DAILY 05/20/18 Surgical History: Surgical History (Last Reviewed 12/15/17 @ 10:18 by Ramonita Alcantar) Presence of automatic implantable cardioverter-defibrillator (Resolved) Z95.810 H/O coronary artery bypass surgery (Resolved) Onset Date: ~2008 Z95.1 HUMPHREY-LAD, SVG-D1, SVG-OM Stented coronary artery (Chronic) Onset Date: ~12/2016 has had 7 stents as of 06/15/17 Hx of hernia repair (Inactive) Z98.890, Z87.19 Previous back surgery (Inactive) Z98.890 Status post left heart catheterization (Inactive) Onset Date: ~12/2016 Z98.890 Surgical History: angioplasty - stents x10, coronary bypass surgery, - - AICD placement, back surgery x 2, hernia repair Smoking Status: Current some day smoker - *Family History Paternal Family History: Family History (Last Reviewed 12/15/17 @ 10:18 by Ramonita Alcantar) Brother CAD (coronary artery disease) Myocardial infarction Sudden cardiac Mother Cancer Hypertension Father Cancer COPD (chronic obstructive pulmonary disease) History Items: Cancer, Heart Disease Maternal Family History: Family History (Last Reviewed 12/15/17 @ 10:18 by Ramonita Alcantar) Brother CAD (coronary artery disease) Myocardial infarction Sudden cardiac Mother Cancer Hypertension Father Cancer COPD (chronic obstructive pulmonary disease) History Items: Cancer Review of Systems Constitutional: Reports: Malaise, Weakness, Fatigue. Denies: Anorexia, Chills, Fever Eyes: Denies: Blurred vision HEENT: Denies: Head Aches, Sinus Congestion, Sinus Drainage Cardiovascular: Reports: Orthopnea, Paroxysmal Noc. Dyspnea. Denies: Chest Pain, Chest Pressure, Edema, Light Headedness, Palpitations Respiratory: Reports: Cough, Shortness of Breath, Shortness of breath at rest, Shortness of breath upon exertion, Sputum production, Wheezing Gastrointestinal: Denies: Abdominal Pain, Nausea, Vomiting Genitourinary: Denies: Dysuria Musculoskeletal: Denies: Joint Pain, Joint Tenderness Skin: Denies: Rash, Wounds Neurological: Denies: Numbness, Tingling, Focal weakness Psychiatric: Denies: Anxiety, Depression, Homicidal Ideations, Suicidal Ideations Hematologic/ Lymphatic: Denies: Easy Bruising, Easy Bleeding VTE Information - Inpt Only VTE Present on Admission: No VTE Pharm Prophylaxis ordered?: Yes - Physical Exam General: Alert, Oriented x3, Cooperative, - - patient looks uncomfortable HEENT: Atraumatic, PERRLA, EOMI, Normocephalic Oral: Moist Mucosa Neck: Supple, No JVD, Negative Carotid Bruits Lungs: - - bilateral wheezing in all lung bui, with some coarse crackles bibasally. Cardiovascular: Regular Rhythm, Normal S1, Normal S2, No murmurs, Tachycardic Abdomen: Bowel Sounds Present, Soft, Non Tender, Non-Distended, No Hepato- splenomegaly Extremities: No clubbing, No cyanosis, No edema, Capillary Refill Less than 3 Seconds Skin: No rashes, No breakdown Musculoskeletal: No Tenderness to Palpation of Joints or Extremities Lymphatic: No Cervical, Supraclavicular, or Inguinal Adenopathy Neurological: Cranial nerves II-XII grossly intact, Neuro grossly intact Psych/Mental Status: Normal Affect, Appropriate, Alert and oriented to time, place, person, mood and affect Vital Signs Temp Pulse Resp BP Pulse Ox 97.6 F L 88 19 H 100/55 L 95 05/20/18 15:46 05/20/18 17:56 05/20/18 17:56 05/20/18 17:56 05/20/18 17:56 Oxygen Flow Rate (L/min) 2 Oxygen Delivery Method Nasal Cannula Weight: 208 lb 15.971 oz Body Mass Index (BMI) 30.8 Laboratory Tests Past 24 Hrs 05/20/18 05/20/18 05/20/18 16:20 16:20 16:20 WBC 10.5 RBC 4.34 L Hgb 13.2 Hct 40.5 MCV 93.3 MCH 30.4 MCHC 32.6 RDW 15.0 H RDW Differential 51.3 H Plt Count 227 MPV 9.7 Immature Gran % (Auto) 0.300 Neut % (Auto) 66.9 Lymph % (Auto) 25.3 Curry % (Auto) 6.1 Eos % (Auto) 1.3 Baso % (Auto) 0.1 Absolute Neuts (auto) 7.0 Absolute Lymphs (auto) 2.65 Total Counted Not Reportable Sodium 139 Potassium 3.4 L Chloride 102 Carbon Dioxide 27.0 Anion Gap 10 BUN 31 H Creatinine 1.45 H Estim Creat Clear Calc 49.44 Est GFR (MDRD) Af Amer 62 Est GFR (MDRD) Non-Af 52 L BUN/Creatinine Ratio 21.4 H Glucose 181 H Lactic Acid 1.2 Calcium 8.5 Troponin I < 0.015 Diagnostic Data Chest X-Ray 05/20/18 16:26 IMPRESSION: Lung bui expanded without new consolidation, focal atelectasis or a substantial pleural effusion. Normal cardiac size status post prior midline sternotomy with ICD in good position. Electronically Signed: Rupinder Levine MD at 16:55 EDT , Service support , Assessment/Plan All Active Problems (Last Reviewed 12/15/17 @ 10:18 by Ramonita Alcantar) Shortness of breath (Acute) URI (upper respiratory infection) (Resolved) Acute renal failure superimposed on stage 3 chronic kidney disease (Resolved) COPD exacerbation (Acute) JILLIAN (acute kidney injury) (Resolved) Acute hypoxemic respiratory failure (Resolved) Presence of automatic implantable cardioverter-defibrillator (Resolved) H/O coronary artery bypass surgery (Resolved ~2008) Abdominal pain (Resolved) Acute non-ST segment elevation myocardial infarction (Resolved) NSTEMI (non-ST elevated myocardial infarction) (Resolved) Non-STEMI (non-ST elevated myocardial infarction) (Resolved) [age]-year-old male with a history of COPD and heart failure with reduced ejection fraction admitted with a complaint of worsening shortness of breath and wheezing as well as a cough for the past 3 days. 1. COPD exacerbation * Has wheezing in all lung bui and crackles bibasally * Chest x-ray showed no acute cardia pulmonary process * Previously admitted recently and given prednisone taper for COPD exacerbation. * admit To PCU with telemetry * IV Solu Medrol 40 mg every 8 * Breathing treatments with duo nebs * In light of recent COPD exacerbation, will start IV Levaquin * Patient has received flu shot. Will still screen for influenza. * We will cycle troponin to be sure to not due to coronary artery disease. Will also check BNP to make sure that it is not related to heart failure. * guafenesin for cough 2. Hypokalemia: K is 3.4. will replace. 3. CAD s/p CSBG: on aspirina nd plavix, metoprolol and rosuvastatin. 4. HFrEF s/p AICD: EF ~ 25%. On lasix 40mg bid, imdur, and spironolactone 25 mg daily. 5. Hypertension: On metoprolol 50 mg daily and spironolactone. 6. Hyperlipidemia: On statin and fenofibrate DVT prophylaxis: Heparin GI prophylaxis: Famotidine CODE STATUS: FUll code * Patient counseled extensively about different types of CODE STATUS including full code, DNR CCA and DNR CCA. Patient elects to be full code. [id number] time 18 minutes. Code Visit Inpatient E&M: 74688 Init Hosp L3 Procedures: 02303 Advncd Care Plan 30 Min
[2018-05-20] MEDS: levoFLOXacin IV 750 MG/150 ML BAG 100 MG IV (19:27)
[2018-05-20 19:39] LABS: BNP,B-Type NATRIURETIC PEPTIDE 128.8 pg/mL (0-100)
[2018-05-20] MEDS: Ipratropium/Albuterol Sulfate 3 ML AMPUL.NEB INHALATION ×2 (19:53→23:40)
[2018-05-20] MEDS: Morphine 2 MG/ML Syringe IV (21:28)
[2018-05-20] MEDS: Rosuvastatin 20 MG Tablet 40 MG PO (21:33)
[2018-05-20 21:45] LABS: Bedside Glucose 198 mg/dL (70-110)
[2018-05-20] MEDS: 0.9% NaCl Peripheral Flush Adult/Peds IV (23:02)
[2018-05-20] MEDS: Insulin Lispro 100 UNIT/ML INSULN.PEN SC (23:02)
[2018-05-21] VITALS (19 sets, daily range): BP systolic 101–138; BP diastolic 53–78; PULSE 81–103; RESP 16–18; TEMP 36.6–37.2; O2SAT 92–96
[2018-05-21] MEDS: oxyCODONE 5 MG Tablet 7.5 MG PO ×4 (00:28→22:07)
[2018-05-21] MEDS: Morphine 2 MG/ML Syringe IV ×2 (02:42→10:38)
[2018-05-21] MEDS: 0.9% NaCl Peripheral Flush Adult/Peds IV ×5 (02:43→22:11)
[2018-05-21] MEDS: Ipratropium/Albuterol Sulfate 3 ML AMPUL.NEB INHALATION ×5 (03:26→18:44)
[2018-05-21 06:46] LABS: Bedside Glucose 228 mg/dL (70-110)
[2018-05-21] MEDS: Insulin Lispro 100 UNIT/ML INSULN.PEN SC ×4 (08:20→22:10)
[2018-05-21] MEDS: Aspirin E.C. 81 MG Tablet PO (08:20)
[2018-05-21] MEDS: Fenofibrate 145 MG Tablet PO (08:21)
[2018-05-21] MEDS: Allopurinol 300 MG Tablet PO (08:21)
[2018-05-21] MEDS: Metoprolol(XL)Succ 100 MG Tablet PO (08:22)
[2018-05-21] MEDS: Spironolactone 25 MG Tablet PO (08:22)
[2018-05-21] MEDS: Enoxaparin 40 MG/0.4 ML Syringe SC (08:22)
[2018-05-21] MEDS: Clopidogrel Bisulfate 75 MG Tablet PO (08:22)
[2018-05-21] MEDS: Pantoprazole Sodium 40 MG Tablet PO (08:22)
[2018-05-21] MEDS: Isosorbide Mononitrate 30 MG Tablet PO (08:22)
[2018-05-21] MEDS: Furosemide 40 MG Tablet PO (08:22)
--- NOTE | 2018-05-21 08:28 | NURSING ---
medications given early per pt request to be given with breakfast
[2018-05-21 09:52] LABS: Hemoglobin A1c 6.6 % (4.2-6.3)
--- NOTE | 2018-05-21 10:25 | CASEMGMT ---
LEONIE JEAN-BAPTISTE assessment: Face to Face with patient for initial transition planning/care coordination assessment. LEONIE JEAN-BAPTISTE introduced self and role at [facility], pt voices understanding and consents to assessment at this time. Pt is sitting up on side of bed in no distress at this time. Pt is A/Ox4 at this time and answers all questions appropriately at this time. Care providers, pharmacy, and demographics verified at this time. PCP: Yolette GONZALEZ Specialists: Henny-cardio; Mayito-nephro Preferred Pharmacy: [facility] Insurance: [facility] Living Will/HPOA: Pt states does not have LW/HPOA and declines info at this time. LNOK: Alma Rosa [place], Living Arrangements: Pt lives with in apt and states has flight of stairs to 2nd floor and states no concerns at home at this time. Transportation: Pt states drives self and states no transportation concerns at this time. DME/HHC: Pt states has a walker(does not use) and nebulizer at home and states no need for any further DME at this time. Pt states no hx of HHC or SNF in the past. Pt states no concern with going home at time of discharge. Pt states smokes 1-2cigarettes/day but knows that he needs to quit and states does not drink ETOH. Pt voices no further concerns/needs at this time. CM to follow for any further discharge planning/needs. Advised pt to ask for CM if any further questions/concerns/needs arise, voices understanding. Plan: [place] LEONIE JEAN-BAPTISTE
[2018-05-21 11:21] LABS: Bedside Glucose 202 mg/dL (70-110)
[2018-05-21 16:15] LABS: Bedside Glucose 174 mg/dL (70-110)
--- NOTE | 2018-05-21 17:46 | PCM.PN.HOSP ---
Subjective: Breathing a little easier. Still with wheezing. HAs chronic back pain. Vitals/I&O's: Vital Signs Temp Pulse Resp BP Pulse Ox 97.8 F 92 16 111/59 L 92 05/21/18 17:28 05/21/18 17:28 05/21/18 17:28 05/21/18 17:28 05/21/18 17:28 Oxygen Flow Rate (L/min) 2 Oxygen Delivery Method Room Air Weight: 208 lb 1.862 oz Body Mass Index (BMI) 30.7 Intake and Output for Last 24 Hours 05/19/18 05/20/18 05/21/18 23:59 23:59 23:59 Intake Total 2383 / 2383 Output Total 500 / 500 Balance 1883 / 1883 General: Alert, Oriented x3, Cooperative, No apparent distress HEENT: Atraumatic, EOMI, Normocephalic Oral: Moist Mucosa Neck: Supple, No JVD Lungs: Normal air movement, No rhonchi, No rales, Wheezes Cardiovascular: Regular rate, Regular Rhythm, Normal S1, Normal S2, No murmurs Abdomen: Soft, Non Tender, Non-Distended, No Hepato-splenomegaly Skin: No rashes, No breakdown Neurological: Neuro grossly intact, Sensory exam intact to light touch and pain Psych/Mental Status: Normal Affect, Appropriate Laboratory Results 05/20/18 16:20: B-Natriuretic Peptide 128.8 H 05/20/18 20:44: Troponin I < 0.015 05/20/18 21:39: POC Glucose 198 H 05/21/18 06:40: POC Glucose 228 H 05/21/18 09:28: Hemoglobin A1c 6.6 H 05/21/18 11:07: POC Glucose 202 H 05/21/18 16:08: POC Glucose 174 H Current Medications Albuterol Sulfate (Ventolin Aerosols) 2.5 mg INHALATION Q2H PRN PRN PRN Reason: shortness of breath/wheezing Albuterol/Ipratropium (Duoneb) 3 ml INHALATION Q4HWA.RT [facility] Last Admin: 05/21/18 15:27 Dose: 3 ml [facility] ([facility]) [facility] Last Admin: 05/21/18 08:21 Dose: 300 mg Aspirin (Ecotrin) [facility] Last Admin: 05/21/18 08:20 Dose: 81 mg Clopidogrel Bisulfate (Plavix) 75 mg PO DAILY [facility] Last Admin: 05/21/18 08:22 Dose: 75 mg Enoxaparin Sodium (Lovenox) 40 mg SC DAILY@1000 [facility] Last Admin: 05/21/18 08:22 Dose: 40 mg Fenofibrate (Tricor) 145 mg PO DAILYCM [facility] Last Admin: 05/21/18 08:21 Dose: 145 mg Furosemide (Lasix) 40 mg PO DAILY [facility] Last Admin: 05/21/18 08:22 Dose: 40 mg Insulin Human Lispro (Humalog Kwikpen (Bkc)) 0 unit SC [facility]; Protocol Last Admin: 05/21/18 16:09 Dose: 1 u Isosorbide Mononitrate (Imdur) 30 mg PO DAILY [facility] Last Admin: 05/21/18 08:22 Dose: 30 mg Magnesium Hydroxide (Milk Of Magnesia) 30 ml PO DAILY PRN PRN PRN Reason: Constipation Melatonin (Melatonin) 3 mg PO QHS [facility] Methylprednisolone (Solu-Medrol) 40 mg IV Q8 [facility] Last Admin: 05/21/18 13:48 Dose: 40 mg Metoprolol Succinate (Toprol Xl (Beta Sina)) 100 mg PO DAILY [facility] Last Admin: 05/21/18 08:22 Dose: 100 mg Morphine Sulfate () 1 - 2 mg IV Q4H PRN PRN PRN Reason: PAIN Last Admin: 05/21/18 10:38 Dose: 2 mg Nicotine (Nicoderm Cq (Pbkc)) 21 mg TRANSDERM. DAILY [facility] Last Admin: 05/21/18 08:23 Dose: 21 mg Nitroglycerin (Nitrostat) 0.4 mg SUBLINGUAL Q5M PRN PRN Reason: Chest Pain Oxycodone HCl (Oxyir) 7.5 mg PO Q6H PRN PRN PRN Reason: PAIN Last Admin: 05/21/18 16:02 Dose: 7.5 mg Pantoprazole Sodium (Protonix) 40 mg PO DAILY [facility] Last Admin: 05/21/18 08:22 Dose: 40 mg Rosuvastatin Calcium (Crestor) 40 mg PO QHS [facility] Last Admin: 05/20/18 21:33 Dose: 40 mg Sodium Chloride () 5 - 30 ml IV UD PRN PRN Reason: SALINE FLUSH Last Admin: 05/21/18 13:48 Dose: 10 ml Spironolactone (Aldactone) 25 mg PO QAM [facility] Last Admin: 05/21/18 08:22 Dose: 25 mg Medical Necessity - Tobacco Use Smoking Status: Current some day smoker Assessment/Plan All Active Problems (Last Reviewed 12/15/17 @ 10:18 by Ramonita Alcantar) Shortness of breath (Acute) URI (upper respiratory infection) (Resolved) Acute renal failure superimposed on stage 3 chronic kidney disease (Resolved) COPD exacerbation (Acute) JILLIAN (acute kidney injury) (Resolved) Acute hypoxemic respiratory failure (Resolved) Presence of automatic implantable cardioverter-defibrillator (Resolved) H/O coronary artery bypass surgery (Resolved ~2008) Abdominal pain (Resolved) Acute non-ST segment elevation myocardial infarction (Resolved) NSTEMI (non-ST elevated myocardial infarction) (Resolved) Non-STEMI (non-ST elevated myocardial infarction) (Resolved) 1. COPD exacerbation - Currently not requiring any O2 - CXR was negative for any infiltrate, consolidation or pleural effusion - Solumedrol 40 mg TID - Was very recently discharged from the ER with a steroid taper over the course of a week - C/w duonebs - Troponin negative x2 - No productive cough 2. CAD s/p CABG/chronic systolic CHF/HTN/HLD - C/w lasix 40 mg BID, imdur and aldactone - monitor renal function - Stable not active at the moment - C/w BB, statin and fenofibrate DVT prophylaxis: Heparin Code Visit Inpatient E&M: 26442 Subs Hosp L2
--- NOTE | 2018-05-21 17:51 | PN_ITS ---
Subjective: Breathing a little easier. Still with wheezing. HAs chronic back pain. Vitals/I&O's: Vital Signs Temp Pulse Resp BP Pulse Ox 97.8 F 92 16 111/59 L 92 05/21/18 17:28 05/21/18 17:28 05/21/18 17:28 05/21/18 17:28 05/21/18 17:28 Oxygen Flow Rate (L/min) 2 Oxygen Delivery Method Room Air Weight: 208 lb 1.862 oz Body Mass Index (BMI) 30.7 Intake and Output for Last 24 Hours 05/19/18 05/20/18 05/21/18 23:59 23:59 23:59 Intake Total 2383 / 2383 Output Total 500 / 500 Balance 1883 / 1883 General: Alert, Oriented x3, Cooperative, No apparent distress HEENT: Atraumatic, EOMI, Normocephalic Oral: Moist Mucosa Neck: Supple, No JVD Lungs: Normal air movement, No rhonchi, No rales, Wheezes Cardiovascular: Regular rate, Regular Rhythm, Normal S1, Normal S2, No murmurs Abdomen: Soft, Non Tender, Non-Distended, No Hepato-splenomegaly Skin: No rashes, No breakdown Neurological: Neuro grossly intact, Sensory exam intact to light touch and pain Psych/Mental Status: Normal Affect, Appropriate Laboratory Results 05/20/18 16:20: B-Natriuretic Peptide 128.8 H 05/20/18 20:44: Troponin I < 0.015 05/20/18 21:39: POC Glucose 198 H 05/21/18 06:40: POC Glucose 228 H 05/21/18 09:28: Hemoglobin A1c 6.6 H 05/21/18 11:07: POC Glucose 202 H 05/21/18 16:08: POC Glucose 174 H Current Medications Albuterol Sulfate (Ventolin Aerosols) 2.5 mg INHALATION Q2H PRN PRN PRN Reason: shortness of breath/wheezing Albuterol/Ipratropium (Duoneb) 3 ml INHALATION Q4HWA.RT ON LICENSE OF [facility] Last Admin: 05/21/18 15:27 Dose: 3 ml [facility]) [facility] Admin: 05/21/18 08:21 Dose: 300 mg Aspirin (Ecotrin) [facility] Last Admin: 05/21/18 08:20 Dose: 81 mg Clopidogrel Bisulfate (Plavix) 75 mg PO DAILY [facility] Last Admin: 05/21/18 08:22 Dose: 75 mg Enoxaparin Sodium (Lovenox) 40 mg SC DAILY@1000 [facility] Last Admin: 05/21/18 08:22 Dose: 40 mg Fenofibrate (Tricor) 145 mg PO DAILYCM ON LICENSE OF [facility] Last Admin: 05/21/18 08:21 Dose: 145 mg Furosemide (Lasix) 40 mg PO DAILY [facility] Last Admin: 05/21/18 08:22 Dose: 40 mg Insulin Human Lispro (Humalog Kwikpen (Bkc)) 0 unit SC [facility] ON LICENSE OF [facility]; Protocol Last Admin: 05/21/18 16:09 Dose: 1 u Isosorbide Mononitrate (Imdur) 30 mg PO DAILY [facility] Last Admin: 05/21/18 08:22 Dose: 30 mg Magnesium Hydroxide (Milk Of Magnesia) 30 ml PO DAILY PRN PRN PRN Reason: Constipation Melatonin (Melatonin) 3 mg PO QHS ON LICENSE OF [facility] Methylprednisolone (Solu-Medrol) 40 mg IV Q8 [facility] Last Admin: 05/21/18 13:48 Dose: 40 mg Metoprolol Succinate (Toprol Xl (Beta Sina)) 100 mg PO DAILY [facility] OF [facility] Last Admin: 05/21/18 08:22 Dose: 100 mg Morphine Sulfate () 1 - 2 mg IV Q4H PRN PRN PRN Reason: PAIN Last Admin: 05/21/18 10:38 Dose: 2 mg Nicotine (Nicoderm Cq (Pbkc)) 21 mg TRANSDERM. DAILY [facility] OF [facility] Last Admin: 05/21/18 08:23 Dose: 21 mg Nitroglycerin (Nitrostat) 0.4 mg SUBLINGUAL Q5M PRN PRN Reason: Chest Pain Oxycodone HCl (Oxyir) 7.5 mg PO Q6H PRN PRN PRN Reason: PAIN Last Admin: 05/21/18 16:02 Dose: 7.5 mg Pantoprazole Sodium (Protonix) 40 mg PO DAILY [facility] OF [facility] Last Admin: 05/21/18 08:22 Dose: 40 mg Rosuvastatin Calcium (Crestor) 40 mg PO QHS [facility] OF [facility] Last Admin: 05/20/18 21:33 Dose: 40 mg Sodium Chloride () 5 - 30 ml IV UD PRN PRN Reason: SALINE FLUSH Last Admin: 05/21/18 13:48 Dose: 10 ml Spironolactone (Aldactone) 25 mg PO QAM [facility] Last Admin: 05/21/18 08:22 Dose: 25 mg Medical Necessity - Tobacco Use Smoking Status: Current some day smoker Assessment/Plan All Active Problems (Last Reviewed 12/15/17 @ 10:18 by Ramonita Alcantar) Shortness of breath (Acute) URI (upper respiratory infection) (Resolved) Acute renal failure superimposed on stage 3 chronic kidney disease (Resolved) COPD exacerbation (Acute) JILLIAN (acute kidney injury) (Resolved) Acute hypoxemic respiratory failure (Resolved) Presence of automatic implantable cardioverter-defibrillator (Resolved) H/O coronary artery bypass surgery (Resolved ~2008) Abdominal pain (Resolved) Acute non-ST segment elevation myocardial infarction (Resolved) NSTEMI (non-ST elevated myocardial infarction) (Resolved) Non-STEMI (non-ST elevated myocardial infarction) (Resolved) 1. COPD exacerbation - Currently not requiring any O2 - CXR was negative for any infiltrate, consolidation or pleural effusion - Solumedrol 40 mg TID - Was very recently discharged from the ER with a steroid taper over the course of a week - C/w duonebs - Troponin negative x2 - No productive cough 2. CAD s/p CABG/chronic systolic CHF/HTN/HLD - C/w lasix 40 mg BID, imdur and aldactone - monitor renal function - Stable not active at the moment - C/w BB, statin and fenofibrate DVT prophylaxis: Heparin Code Visit Inpatient E&M: 22667 Subs Hosp L2
[2018-05-21] MEDS: MELATONIN 3 MG TABLET PO (22:07)
[2018-05-21] MEDS: Rosuvastatin 20 MG Tablet 40 MG PO (22:12)
[2018-05-21] MEDS: Albuterol 2.5 MG/3 ML VIAL.NEB. INHALATION (22:22)
[2018-05-21 23:01] LABS: Bedside Glucose 244 mg/dL (70-110)
[2018-05-22] VITALS (14 sets, daily range): BP systolic 109–121; BP diastolic 68–73; PULSE 70–93; RESP 16–24; TEMP 36.3–36.9; O2SAT 94–95
[2018-05-22] MEDS: oxyCODONE 5 MG Tablet 7.5 MG PO ×2 (04:29→11:24)
[2018-05-22] MEDS: 0.9% NaCl Peripheral Flush Adult/Peds IV ×5 (05:54→21:22)
[2018-05-22 06:55] LABS: Bedside Glucose 223 mg/dL (70-110)
[2018-05-22 07:11] LABS: Anion Gap 8 (5-15); BUN 31 mg/dL (7-18); BUN/Creat Ratio 22.8 RATIO (10-20); Chloride 104 mmol/L (98-107); Creatinine, Serum 1.36 mg/dL (0.70-1.30); EST Glomerular Filtration Rate 56 mL/min (>60); Est Glom Filt Rate - Afr Amer 67 mL/min (>60); Estimated Creatinine Clearance 52.71 ml/min; Glucose 172 mg/dL (74-106); Potassium 4.2 mmol/L (3.5-5.1); Sodium Level 138 mmol/L (136-145)
[2018-05-22] MEDS: Ipratropium/Albuterol Sulfate 3 ML AMPUL.NEB INHALATION ×4 (07:22→19:20)
[2018-05-22] MEDS: Fenofibrate 145 MG Tablet PO (08:04)
[2018-05-22] MEDS: Aspirin E.C. 81 MG Tablet PO (08:04)
[2018-05-22] MEDS: Allopurinol 300 MG Tablet PO (08:05)
[2018-05-22] MEDS: Insulin Lispro 100 UNIT/ML INSULN.PEN SC ×4 (08:06→21:20)
[2018-05-22] MEDS: Pantoprazole Sodium 40 MG Tablet PO (10:02)
[2018-05-22] MEDS: Spironolactone 25 MG Tablet PO (10:03)
[2018-05-22] MEDS: Metoprolol(XL)Succ 100 MG Tablet PO (10:03)
[2018-05-22] MEDS: Isosorbide Mononitrate 30 MG Tablet PO (10:03)
[2018-05-22] MEDS: Enoxaparin 40 MG/0.4 ML Syringe SC (10:03)
[2018-05-22] MEDS: Furosemide 40 MG Tablet PO (10:04)
[2018-05-22] MEDS: Clopidogrel Bisulfate 75 MG Tablet PO (10:04)
[2018-05-22 11:41] LABS: Bedside Glucose 199 mg/dL (70-110)
--- NOTE | 2018-05-22 16:27 | PCM.PN.HOSP ---
Subjective: Breathing about the same but states that his back pain is worse today. Vitals/I&O's: Vital Signs Temp Pulse Resp BP Pulse Ox 98.0 F 80 20 H 119/73 95 05/22/18 10:01 05/22/18 15:13 05/22/18 11:09 05/22/18 10:03 05/22/18 10:01 Oxygen Flow Rate (L/min) 2 Oxygen Delivery Method Room Air Weight: 208 lb 1.862 oz Body Mass Index (BMI) 30.7 Intake and Output for Last 24 Hours 05/20/18 05/21/18 05/22/18 23:59 23:59 23:59 Intake Total 2383 / 2383 700 / 700 Output Total 500 / 500 Balance 1883 / 1883 700 / 700 General: Alert, Oriented x3, Cooperative, No apparent distress HEENT: Atraumatic, EOMI, Normocephalic Oral: Moist Mucosa Neck: Supple, No JVD Lungs: Normal air movement, No rhonchi, No rales, Wheezes in all bui, a little improved from yesterday Cardiovascular: Regular rate, Regular Rhythm, Normal S1, Normal S2, No murmurs Abdomen: Soft, Non Tender, Non-Distended, No Hepato-splenomegaly Extremities: No edema Skin: No rashes, No breakdown Neurological: Neuro grossly intact, Sensory exam intact to light touch and pain Psych/Mental Status: Normal Affect, Appropriate Laboratory Results 05/21/18 22:09: POC Glucose 244 H 05/22/18 05:45: Sodium 138, Potassium 4.2, Chloride 104, Carbon Dioxide 26.0, Anion Gap 8, BUN 31 H, Creatinine 1.36 H, Estim Creat Clear Calc 52.71, Est GFR (MDRD) Af Amer 67, Est GFR (MDRD) Non-Af 56 L, BUN/Creatinine Ratio 22.8 H, Glucose 172 H, Calcium 9.0 05/22/18 06:50: POC Glucose 223 H 05/22/18 11:23: POC Glucose 199 H Current Medications Acetaminophen (Tylenol) 650 mg PO Q6H PRN PRN PRN Reason: pain Albuterol Sulfate (Ventolin Aerosols) 2.5 mg INHALATION Q2H PRN PRN PRN Reason: shortness of breath/wheezing Last Admin: 05/21/18 22:22 Dose: 2.5 mg Albuterol/Ipratropium (Duoneb) 3 ml INHALATION Q4HWA.RT [facility] Last Admin: 05/22/18 14:56 Dose: 3 [facility] Last Admin: 05/22/18 08:05 Dose: 300 mg Aspirin (Ecotrin) 81 mg PO DAILYCM [facility] Last Admin: 05/22/18 08:04 Dose: 81 mg Clopidogrel Bisulfate (Plavix) 75 mg PO DAILY [facility] Last Admin: 05/22/18 10:04 Dose: 75 mg Enoxaparin Sodium (Lovenox) 40 mg SC DAILY@1000 [facility] Last Admin: 05/22/18 10:03 Dose: 40 mg [facility]ofibrate (Tricor) [facility] Last Admin: 05/22/18 08:04 Dose: 145 mg Furosemide (Lasix) 40 mg PO DAILY [facility] Last Admin: 05/22/18 10:04 Dose: 40 mg Insulin Human Lispro (Humalog Kwikpen (Bkc)) 0 unit SC [facility]; Protocol Last Admin: 05/22/18 11:25 Dose: 2 u Isosorbide Mononitrate (Imdur) 30 mg PO DAILY [facility] Last Admin: 05/22/18 10:03 Dose: 30 mg Magnesium Hydroxide (Milk Of Magnesia) 30 ml PO DAILY PRN PRN PRN Reason: Constipation Melatonin (Melatonin) 3 mg PO QHS [facility] Last Admin: 05/21/18 22:07 Dose: 3 mg Methylprednisolone (Solu-Medrol) 40 mg IV Q8 [facility] Last Admin: 05/22/18 14:42 Dose: 40 mg Metoprolol Succinate (Toprol Xl (Beta Sina)) 100 mg PO DAILY [facility] Last Admin: 05/22/18 10:03 Dose: 100 mg Nicotine (Nicoderm Cq (Pbkc)) 21 mg TRANSDERM. DAILY [facility] Last Admin: 05/22/18 10:02 Dose: 21 mg Nitroglycerin (Nitrostat) 0.4 mg SUBLINGUAL Q5M PRN PRN Reason: Chest Pain Oxycodone HCl (Oxyir) 0 mg PO Q6H PRN PRN PRN Reason: PAIN Pantoprazole Sodium (Protonix) 40 mg PO DAILY [facility] Last Admin: 05/22/18 10:02 Dose: 40 mg Rosuvastatin Calcium (Crestor) 40 mg PO QHS [facility] Last Admin: 05/21/18 22:12 Dose: 40 mg Sodium Chloride () 5 - 30 ml IV UD PRN PRN Reason: SALINE FLUSH Last Admin: 05/22/18 14:42 Dose: 10 ml Spironolactone (Aldactone) 25 mg PO QAM [facility] Last Admin: 05/22/18 10:03 Dose: 25 mg Medical Necessity - Tobacco Use Smoking Status: Current some day smoker Assessment/Plan All Active Problems (Last Reviewed 12/15/17 @ 10:18 by Ramonita Alcantar) Shortness of breath (Acute) URI (upper respiratory infection) (Resolved) Acute renal failure superimposed on stage 3 chronic kidney disease (Resolved) COPD exacerbation (Acute) JILLIAN (acute kidney injury) (Resolved) Acute hypoxemic respiratory failure (Resolved) Presence of automatic implantable cardioverter-defibrillator (Resolved) H/O coronary artery bypass surgery (Resolved ~2008) Abdominal pain (Resolved) Acute non-ST segment elevation myocardial infarction (Resolved) NSTEMI (non-ST elevated myocardial infarction) (Resolved) Non-STEMI (non-ST elevated myocardial infarction) (Resolved) 1. COPD exacerbation - Currently not requiring any O2 - CXR was negative for any infiltrate, consolidation or pleural effusion - Solumedrol 40 mg TID - Was very recently discharged from the ER with a steroid taper over the course of a week - If no improvement tomorrow will consult pulmonary medicine, CXR in the am - BNP 128 on admission, he has been as high as the 700's on previous admission - C/w duonebs - Troponin negative x2 - No productive cough 2. CAD s/p CABG/chronic systolic CHF/HTN/HLD - C/w lasix 40 mg BID, imdur and aldactone - monitor renal function - Stable not active at the moment - C/w BB, statin and fenofibrate 3. Chronic back pain - He takes percocet 7.5 mg at home q6 hours - occasionally he will take 2 - C/w oxycodone 7.5 mg 1-2 q6 prn - His biggest concern seems to be his back pain and not his breathing, I would recommend pain management as an outpatient DVT prophylaxis: Heparin Code Visit Inpatient E&M: 36297 Subs Hosp L2
--- NOTE | 2018-05-22 16:44 | PN_ITS ---
Subjective: Breathing about the same but states that his back pain is worse today. Vitals/I&O's: Vital Signs Temp Pulse Resp BP Pulse Ox 98.0 F 80 20 H 119/73 95 05/22/18 10:01 05/22/18 15:13 05/22/18 11:09 05/22/18 10:03 05/22/18 10:01 Oxygen Flow Rate (L/min) 2 Oxygen Delivery Method Room Air Weight: 208 lb 1.862 oz Body Mass Index (BMI) 30.7 Intake and Output for Last 24 Hours 05/20/18 05/21/18 05/22/18 23:59 23:59 23:59 Intake Total 2383 / 2383 700 / 700 Output Total 500 / 500 Balance 1883 / 1883 700 / 700 General: Alert, Oriented x3, Cooperative, No apparent distress HEENT: Atraumatic, EOMI, Normocephalic Oral: Moist Mucosa Neck: Supple, No JVD Lungs: Normal air movement, No rhonchi, No rales, Wheezes in all bui, a little improved from yesterday Cardiovascular: Regular rate, Regular Rhythm, Normal S1, Normal S2, No murmurs Abdomen: Soft, Non Tender, Non-Distended, No Hepato-splenomegaly Extremities: No edema Skin: No rashes, No breakdown Neurological: Neuro grossly intact, Sensory exam intact to light touch and pain Psych/Mental Status: Normal Affect, Appropriate Laboratory Results 05/21/18 22:09: POC Glucose 244 H 05/22/18 05:45: Sodium 138, Potassium 4.2, Chloride 104, Carbon Dioxide 26.0, Anion Gap 8, BUN 31 H, Creatinine 1.36 H, Estim Creat Clear Calc 52.71, Est GFR (MDRD) Af Amer 67, Est GFR (MDRD) Non-Af 56 L, BUN/Creatinine Ratio 22.8 H, Glucose 172 H, Calcium 9.0 05/22/18 06:50: POC Glucose 223 H 05/22/18 11:23: POC Glucose 199 H Current Medications Acetaminophen (Tylenol) 650 mg PO Q6H PRN PRN PRN Reason: pain Albuterol Sulfate (Ventolin Aerosols) 2.5 mg INHALATION Q2H PRN PRN PRN Reason: shortness of breath/wheezing Last Admin: 05/21/18 22:22 Dose: 2.5 mg Albuterol/Ipratropium (Duoneb) 3 ml INHALATION Q4HWA.RT [facility] Last Admin: 05/22/18 14:56 Dose: 3 ml [facility]) [facility] Last Admin: 05/22/18 08:05 Dose: 300 mg Aspirin (Ecotrin) 81 mg PO DAILYCM [facility] Last Admin: 05/22/18 08:04 Dose: 81 mg Clopidogrel Bisulfate (Plavix) 75 mg PO DAILY [facility] Last Admin: 05/22/18 10:04 Dose: 75 mg Enoxaparin Sodium (Lovenox) 40 mg SC DAILY@1000 [facility] Last Admin: 05/22/18 10:03 Dose: 40 mg Fenofibrate (Tricor) [facility] Last Admin: 05/22/18 08:04 Dose: 145 mg Furosemide (Lasix) 40 mg PO DAILY [facility] Last Admin: 05/22/18 10:04 Dose: 40 mg Insulin Human Lispro (Humalog Kwikpen (Bkc)) 0 unit SC [facility]; Protocol Last Admin: 05/22/18 11:25 Dose: 2 u Isosorbide Mononitrate (Imdur) 30 mg PO DAILY [facility] Last Admin: 05/22/18 10:03 Dose: 30 mg Magnesium Hydroxide (Milk Of Magnesia) 30 ml PO DAILY PRN PRN PRN Reason: Constipation Melatonin (Melatonin) 3 mg PO QHS [facility] Last Admin: 05/21/18 22:07 Dose: 3 mg Methylprednisolone (Solu-Medrol) 40 mg IV Q8 [facility] Last Admin: 05/22/18 14:42 Dose: 40 mg Metoprolol Succinate (Toprol Xl (Beta Sina)) 100 mg PO DAILY [facility] Last Admin: 05/22/18 10:03 Dose: 100 mg Nicotine (Nicoderm Cq (Pbkc)) 21 mg TRANSDERM. DAILY [facility] Last Admin: 05/22/18 10:02 Dose: 21 mg Nitroglycerin (Nitrostat) 0.4 mg SUBLINGUAL Q5M PRN PRN Reason: Chest Pain Oxycodone HCl (Oxyir) 0 mg PO Q6H PRN PRN PRN Reason: PAIN Pantoprazole Sodium (Protonix) 40 mg PO DAILY [facility] Last Admin: 05/22/18 10:02 Dose: 40 mg Rosuvastatin Calcium (Crestor) 40 mg PO QHS [facility] Last Admin: 05/21/18 22:12 Dose: 40 mg Sodium Chloride () 5 - 30 ml IV UD PRN PRN Reason: SALINE FLUSH Last Admin: 05/22/18 14:42 Dose: 10 ml Spironolactone (Aldactone) 25 mg PO QAM [facility] Last Admin: 05/22/18 10:03 Dose: 25 mg Medical Necessity - Tobacco Use Smoking Status: Current some day smoker Assessment/Plan All Active Problems (Last Reviewed 12/15/17 @ 10:18 by Ramonita Alcantar) Shortness of breath (Acute) URI (upper respiratory infection) (Resolved) Acute renal failure superimposed on stage 3 chronic kidney disease (Resolved) COPD exacerbation (Acute) JILLIAN (acute kidney injury) (Resolved) Acute hypoxemic respiratory failure (Resolved) Presence of automatic implantable cardioverter-defibrillator (Resolved) H/O coronary artery bypass surgery (Resolved ~2008) Abdominal pain (Resolved) Acute non-ST segment elevation myocardial infarction (Resolved) NSTEMI (non-ST elevated myocardial infarction) (Resolved) Non-STEMI (non-ST elevated myocardial infarction) (Resolved) 1. COPD exacerbation - Currently not requiring any O2 - CXR was negative for any infiltrate, consolidation or pleural effusion - Solumedrol 40 mg TID - Was very recently discharged from the ER with a steroid taper over the course of a week - If no improvement tomorrow will consult pulmonary medicine, CXR in the am - BNP 128 on admission, he has been as high as the 700's on previous admission - C/w duonebs - Troponin negative x2 - No productive cough 2. CAD s/p CABG/chronic systolic CHF/HTN/HLD - C/w lasix 40 mg BID, imdur and aldactone - monitor renal function - Stable not active at the moment - C/w BB, statin and fenofibrate 3. Chronic back pain - He takes percocet 7.5 mg at home q6 hours - occasionally he will take 2 - C/w oxycodone 7.5 mg 1-2 q6 prn - His biggest concern seems to be his back pain and not his breathing, I would recommend pain management as an outpatient DVT prophylaxis: Heparin Code Visit Inpatient E&M: 02953 Subs Hosp L2
[2018-05-22 16:51] LABS: Bedside Glucose 207 mg/dL (70-110)
[2018-05-22] MEDS: Budesonide Respules 0.5 MG/2 ML AMPUL.NEB. INHALATION (19:20)
[2018-05-22] MEDS: oxyCODONE 5 MG Tablet PO (20:01)
[2018-05-22] MEDS: Acetaminophen 325 MG Tablet 650 MG PO (20:01)
[2018-05-22] MEDS: MELATONIN 3 MG TABLET PO (21:20)
[2018-05-22] MEDS: Rosuvastatin 20 MG Tablet 40 MG PO (21:20)
[2018-05-22 23:10] LABS: Bedside Glucose 256 mg/dL (70-110)
[2018-05-23] VITALS (18 sets, daily range): BP systolic 110–129; BP diastolic 54–71; PULSE 70–86; RESP 18–24; TEMP 36.3–37.1; O2SAT 89–96
[2018-05-23] MEDS: Ipratropium/Albuterol Sulfate 3 ML AMPUL.NEB INHALATION ×5 (02:13→18:44)
[2018-05-23] MEDS: Acetaminophen 325 MG Tablet 650 MG PO ×4 (02:22→22:04)
[2018-05-23] MEDS: oxyCODONE 5 MG Tablet PO ×4 (02:23→22:04)
[2018-05-23] MEDS: 0.9% NaCl Peripheral Flush Adult/Peds IV ×5 (05:20→22:05)
[2018-05-23 06:55] LABS: Bedside Glucose 226 mg/dL (70-110)
[2018-05-23 07:07] LABS: Absolute Neutrophil Count 14.4 X10^3/uL (2.0-7.7); Hematocrit 38.6 % (40-54); Hemoglobin 12.4 g/dl (13.0-16.5); Lymphocyte % 5.7 % (19-41); Mean Corp Hgb Conc 32.1 g/gl (32-36); Mean Corpuscular Hgb 29.9 pg (27.0-32.0); Mean Platelet Vol. 10.2 fl (6.2-12.0); Monocyte# 0.36 X10^3/uL; Monocyte% 2.3 % (0-10); Neutrophil # 14.38 X10^3/uL (2.7-7.7); Neutrophil % 91.9 % (47-70); Platelet Count 222 K/mm3 (150-450); RBC Distribution Width CV 15.1 % (11.6-14.6); RBC Distribution Width SD 51.3 fl (35.1-43.9); Red Blood Count 4.15 M/mm3 (4.6-6.2); White Blood Count 15.7 K/mm3 (4.4-11.0)
[2018-05-23 07:15] LABS: POSITIVE COUNT NO; POSITIVE DIFFERENTIAL NO; POSITIVE MORPHOLOGY NO
[2018-05-23] MEDS: Budesonide Respules 0.5 MG/2 ML AMPUL.NEB. INHALATION ×2 (07:23→18:44)
[2018-05-23 07:40] LABS: Anion Gap 11 (5-15); BUN 40 mg/dL (7-18); Calcium,Total 8.7 mg/dL (8.5-10.1); Chloride 101 mmol/L (98-107); Creatinine, Serum 1.38 mg/dL (0.70-1.30); EST Glomerular Filtration Rate 55 mL/min (>60); Est Glom Filt Rate - Afr Amer 66 mL/min (>60); Estimated Creatinine Clearance 51.94 ml/min; Glucose 211 mg/dL (74-106); Potassium 4.4 mmol/L (3.5-5.1); Sodium Level 139 mmol/L (136-145)
--- NOTE | 2018-05-23 08:00 | RAD_ITS ---
STUDY: X-RAY CHEST REASON FOR EXAM: Male, 68 years old. Shortness of breath. TECHNIQUE: PA and lateral views. COMPARISON: 05/20/2018. FINDINGS: Pacing lead tips remain in the right atrium and right ventricle. Small calcified granuloma in the lateral segment of the right middle lobe. No confluent infiltrates. No suspicious pulmonary nodules. There is no demonstrated pleural abnormality. Normal size heart. Median sternotomy from prior CABG procedure. Normal mediastinum and serjio. Normal visualized pulmonary arteries. Normal visualized aortic arch and descending thoracic aorta. Minimal anterior wedging of the T11 superior endplate is presumably from remote injury. Normal visualized ribs, clavicles, and shoulders. There is no demonstrated abnormality of the visualized soft tissue structures of the upper abdomen. RAD/Chest PA and Lateral IMPRESSION: 1. No acute cardiopulmonary pathology. 2. Pulmonary hyperinflation with flattening of the hemidiaphragms are suggestive of mild COPD. 3. Minimal anterior wedging of T11 vertebral body is presumably from remote injury. 4. No significant interval changes when compared to 05/20/2018. Electronically Signed: Davi Mendoza MD at 8:14 EDT , Service support ,
[2018-05-23] MEDS: Insulin Lispro 100 UNIT/ML INSULN.PEN SC ×4 (08:41→22:05)
[2018-05-23] MEDS: Pantoprazole Sodium 40 MG Tablet PO (08:41)
[2018-05-23] MEDS: Metoprolol(XL)Succ 100 MG Tablet PO (08:42)
[2018-05-23] MEDS: Enoxaparin 40 MG/0.4 ML Syringe SC (08:42)
[2018-05-23] MEDS: Furosemide 40 MG Tablet PO (08:42)
[2018-05-23] MEDS: Isosorbide Mononitrate 30 MG Tablet PO (08:42)
[2018-05-23] MEDS: Aspirin E.C. 81 MG Tablet PO (08:43)
[2018-05-23] MEDS: Allopurinol 300 MG Tablet PO (08:43)
[2018-05-23] MEDS: Clopidogrel Bisulfate 75 MG Tablet PO (08:43)
[2018-05-23] MEDS: Spironolactone 25 MG Tablet PO (08:43)
[2018-05-23] MEDS: Fenofibrate 145 MG Tablet PO (08:43)
[2018-05-23 11:30] LABS: Bedside Glucose 205 mg/dL (70-110)
--- NOTE | 2018-05-23 11:47 | PCM.PN.HOSP ---
Subjective: Pain is improved and now he is concerned that his breathing is not better than when he came in. He still feels SOB. Per nursing he is using his Oxygen periodically. Vitals/I&O's: Vital Signs Temp Pulse Resp BP Pulse Ox 97.7 F L 70 18 119/71 96 05/23/18 08:39 05/23/18 08:42 05/23/18 08:39 05/23/18 08:42 05/23/18 08:39 Oxygen Flow Rate (L/min) 2 Oxygen Delivery Method Room Air Weight: 208 lb 1.862 oz Body Mass Index (BMI) 30.7 Intake and Output for Last 24 Hours 05/21/18 05/22/18 05/23/18 23:59 23:59 23:59 Intake Total 2383 / 2383 1780 / 1780 400 / 400 Output Total 500 / 500 Balance 1883 / 1883 1780 / 1780 400 / 400 General: Alert, Oriented x3, Cooperative, No apparent distress HEENT: Atraumatic, EOMI, Normocephalic Oral: Moist Mucosa Neck: Supple, No JVD Lungs: Normal air movement, No rhonchi, No rales, Wheezes in all bui Cardiovascular: Regular rate, Regular Rhythm, Normal S1, Normal S2, No murmurs Abdomen: Soft, Non Tender, Non-Distended, No Hepato-splenomegaly Extremities: No edema Skin: No rashes, No breakdown Neurological: Neuro grossly intact, Sensory exam intact to light touch and pain Psych/Mental Status: Normal Affect, Appropriate Laboratory Results 05/22/18 16:35: POC Glucose 207 H 05/22/18 21:14: POC Glucose 256 H 05/23/18 05:50: WBC 15.7 H, RBC 4.15 L, Hgb 12.4 L, Hct 38.6 L, MCV 93.0, MCH 29.9, MCHC 32.1, RDW 15.1 H, RDW Differential 51.3 H, Plt Count 222, MPV 10.2, Immature Gran % (Auto) 0.100, Neut % (Auto) 91.9 H, Lymph % (Auto) 5.7 L, Divide % (Auto) 2.3, Eos % (Auto) 0.0, Baso % (Auto) 0.0, Absolute Neuts (auto) 14.4 H, Absolute Lymphs (auto) 0.90, Total Counted Not Reportable 05/23/18 05:50: Sodium 139, Potassium 4.4, Chloride 101, Carbon Dioxide 27.0, Anion Gap 11, BUN 40 H, Creatinine 1.38 H, Estim Creat Clear Calc 51.94, Est GFR (MDRD) Af Amer 66, Est GFR (MDRD) Non-Af 55 L, BUN/Creatinine Ratio 29.0 H, Glucose 211 H, Calcium 8.7 05/23/18 06:48: POC Glucose 226 H 05/23/18 11:19: POC Glucose 205 H Current Medications Acetaminophen (Tylenol) 650 mg PO Q6H PRN PRN PRN Reason: pain Last Admin: 05/23/18 08:54 Dose: 650 mg Albuterol Sulfate (Ventolin Aerosols) 2.5 mg INHALATION Q2H PRN PRN PRN Reason: shortness of breath/wheezing Last Admin: 05/21/18 22:22 Dose: 2.5 mg Albuterol/Ipratropium (Duoneb) 3 ml INHALATION Q4HWA.RT [facility] Last Admin: 05/23/18 10:48 Dose: 3 ml [facility] ([facility]) [facility] Last Admin: 05/23/18 08:43 Dose: 300 mg [facility]irin (Ecotrin) [facility] Last Admin: 05/23/18 08:43 Dose: 81 mg Budesonide (Pulmicort Aerosol) 0.5 mg INHALATION BID.RT [facility] Last Admin: 05/23/18 07:23 Dose: 0.5 mg Clopidogrel Bisulfate (Plavix) 75 mg PO DAILY [facility] Last Admin: 05/23/18 08:43 Dose: 75 mg Enoxaparin Sodium (Lovenox) 40 mg SC DAILY@1000 [facility] Last Admin: 05/23/18 08:42 Dose: 40 mg Fenofibrate (Tricor) [facility] Last Admin: 05/23/18 08:43 Dose: 145 mg Furosemide (Lasix) 40 mg PO DAILY [facility] Last Admin: 05/23/18 08:42 Dose: 40 mg Insulin Human Lispro (Humalog Kwikpen (Bkc)) 0 unit SC [facility]; Protocol Last Admin: 05/23/18 11:21 Dose: 2 u Isosorbide Mononitrate (Imdur) 30 mg PO DAILY [facility] Last Admin: 05/23/18 08:42 Dose: 30 mg Magnesium Hydroxide (Milk Of Magnesia) 30 ml PO DAILY PRN PRN PRN Reason: Constipation Melatonin (Melatonin) 3 mg PO QHS [facility] Last Admin: 05/22/18 21:20 Dose: 3 mg Metoprolol Succinate (Toprol Xl (Beta Sina)) 100 mg PO DAILY [facility] Last Admin: 05/23/18 08:42 Dose: 100 mg Nicotine (Nicoderm Cq (Pbkc)) 21 mg TRANSDERM. DAILY [facility] Last Admin: 05/23/18 08:42 Dose: 21 mg Nitroglycerin (Nitrostat) 0.4 mg SUBLINGUAL Q5M PRN PRN Reason: Chest Pain Oxycodone HCl (Oxyir) 7.5 - 15 mg PO Q6H PRN PRN PRN Reason: PAIN Last Admin: 05/23/18 08:54 Dose: 10 mg Pantoprazole Sodium (Protonix) 40 mg PO DAILY [facility] Last Admin: 05/23/18 08:41 Dose: 40 mg Rosuvastatin Calcium (Crestor) 40 mg PO QHS [facility] Last Admin: 05/22/18 21:20 Dose: 40 mg Sodium Chloride () 5 - 30 ml IV UD PRN PRN Reason: SALINE FLUSH Last Admin: 05/23/18 05:20 Dose: 10 ml Spironolactone (Aldactone) 25 mg PO QAM [facility] Last Admin: 05/23/18 08:43 Dose: 25 mg Medical Necessity - Tobacco Use Smoking Status: Current some day smoker Assessment/Plan All Active Problems (Last Reviewed 12/15/17 @ 10:18 by Ramonita Alcantar) Shortness of breath (Acute) URI (upper respiratory infection) (Resolved) Acute renal failure superimposed on stage 3 chronic kidney disease (Resolved) COPD exacerbation (Acute) JILLIAN (acute kidney injury) (Resolved) Acute hypoxemic respiratory failure (Resolved) Presence of automatic implantable cardioverter-defibrillator (Resolved) H/O coronary artery bypass surgery (Resolved ~2008) Abdominal pain (Resolved) Acute non-ST segment elevation myocardial infarction (Resolved) NSTEMI (non-ST elevated myocardial infarction) (Resolved) Non-STEMI (non-ST elevated myocardial infarction) (Resolved) 1. COPD exacerbation - Charted as 96% on RA and then sitting in the room with the NC inplace at 2 L - CXR was negative for any infiltrate, consolidation or pleural effusion - Solumedrol 40 mg TID, which is causing his leukocytosis given he is afebrile - Was very recently discharged from the ER with a steroid taper over the course of a week - Added inhaled budesonide - C/w levaquin for now - BNP 128 on admission, he has been as high as the 700's on previous admission - C/w duonebs - Troponin negative x2 - No productive cough - PFT a year ago with irreversible airway disease and DLCO of 60% - Will obtain an ambulatory pulse-Ox today 2. CAD s/p CABG/chronic systolic CHF/HTN/HLD - C/w lasix 40 mg BID, imdur and aldactone - monitor renal function - Stable not active at the moment - C/w BB, statin and fenofibrate 3. Chronic back pain - He takes percocet 7.5 mg at home q6 hours - occasionally he will take 2 - C/w oxycodone 7.5 mg 1-2 q6 prn - His biggest concern seems to be his back pain and not his breathing, I would recommend pain management as an outpatient DVT prophylaxis: Heparin Code Visit Inpatient E&M: 58741 Subs Hosp L2
--- NOTE | 2018-05-23 11:59 | PN_ITS ---
Subjective: Pain is improved and now he is concerned that his breathing is not better than when he came in. He still feels SOB. Per nursing he is using his Oxygen periodically. Vitals/I&O's: Vital Signs Temp Pulse Resp BP Pulse Ox 97.7 F L 70 18 119/71 96 05/23/18 08:39 05/23/18 08:42 05/23/18 08:39 05/23/18 08:42 05/23/18 08:39 Oxygen Flow Rate (L/min) 2 Oxygen Delivery Method Room Air Weight: 208 lb 1.862 oz Body Mass Index (BMI) 30.7 Intake and Output for Last 24 Hours 05/21/18 05/22/18 05/23/18 23:59 23:59 23:59 Intake Total 2383 / 2383 1780 / 1780 400 / 400 Output Total 500 / 500 Balance 1883 / 1883 1780 / 1780 400 / 400 General: Alert, Oriented x3, Cooperative, No apparent distress HEENT: Atraumatic, EOMI, Normocephalic Oral: Moist Mucosa Neck: Supple, No JVD Lungs: Normal air movement, No rhonchi, No rales, Wheezes in all bui Cardiovascular: Regular rate, Regular Rhythm, Normal S1, Normal S2, No murmurs Abdomen: Soft, Non Tender, Non-Distended, No Hepato-splenomegaly Extremities: No edema Skin: No rashes, No breakdown Neurological: Neuro grossly intact, Sensory exam intact to light touch and pain Psych/Mental Status: Normal Affect, Appropriate Laboratory Results 05/22/18 16:35: POC Glucose 207 H 05/22/18 21:14: POC Glucose 256 H 05/23/18 05:50: WBC 15.7 H, RBC 4.15 L, Hgb 12.4 L, Hct 38.6 L, MCV 93.0, MCH 29.9, MCHC 32.1, RDW 15.1 H, RDW Differential 51.3 H, Plt Count 222, MPV 10.2, Immature Gran % (Auto) 0.100, Neut % (Auto) 91.9 H, Lymph % (Auto) 5.7 L, [place] % (Auto) 2.3, Eos % (Auto) 0.0, Baso % (Auto) 0.0, Absolute Neuts (auto) 14.4 H, Absolute Lymphs (auto) 0.90, Total Counted Not Reportable 05/23/18 05:50: Sodium 139, Potassium 4.4, Chloride 101, Carbon Dioxide 27.0, Anion Gap 11, BUN 40 H, Creatinine 1.38 H, Estim Creat Clear Calc 51.94, Est GFR (MDRD) Af Amer 66, Est GFR (MDRD) Non-Af 55 L, BUN/Creatinine Ratio 29.0 H, Glucose 211 H, Calcium 8.7 05/23/18 06:48: POC Glucose 226 H 05/23/18 11:19: POC Glucose 205 H Current Medications Acetaminophen (Tylenol) 650 mg PO Q6H PRN PRN PRN Reason: pain Last Admin: 05/23/18 08:54 Dose: 650 mg Albuterol Sulfate (Ventolin Aerosols) 2.5 mg INHALATION Q2H PRN PRN PRN Reason: shortness of breath/wheezing Last Admin: 05/21/18 22:22 Dose: 2.5 mg Albuterol/Ipratropium (Duoneb) 3 ml INHALATION Q4HWA.RT [facility] Last Admin: 05/23/18 10:48 Dose: 3 ml Allop[facility] ([facility]oprim) [facility] Last Admin: 05/23/18 08:43 Dose: 300 mg Aspirin (Ecotrin) [facility] Last Admin: 05/23/18 08:43 Dose: 81 mg Budesonide (Pulmicort Aerosol) 0.5 mg INHALATION BID.RT [facility] Last Admin: 05/23/18 07:23 Dose: 0.5 mg Clopidogrel Bisulfate (Plavix) 75 mg PO DAILY [facility] Last Admin: 05/23/18 08:43 Dose: 75 mg Enoxaparin Sodium (Lovenox) 40 mg SC DAILY@1000 [facility] Last Admin: 05/23/18 08:42 Dose: 40 mg Fenofibrate (Tricor) [facility] Last Admin: 05/23/18 08:43 Dose: 145 mg Furosemide (Lasix) 40 mg PO DAILY [facility] Last Admin: 05/23/18 08:42 Dose: 40 mg Insulin Human Lispro (Humalog Kwikpen (Bkc)) 0 unit SC [facility]; Protocol Last Admin: 05/23/18 11:21 Dose: 2 u Isosorbide Mononitrate (Imdur) 30 mg PO DAILY [facility] Last Admin: 05/23/18 08:42 Dose: 30 mg Magnesium Hydroxide (Milk Of Magnesia) 30 ml PO DAILY PRN PRN PRN Reason: Constipation Melatonin (Melatonin) 3 mg PO QHS [facility] Last Admin: 05/22/18 21:20 Dose: 3 mg Metoprolol Succinate (Toprol Xl (Beta Sina)) 100 mg PO DAILY [facility] Last Admin: 05/23/18 08:42 Dose: 100 mg Nicotine (Nicoderm Cq (Pbkc)) 21 mg TRANSDERM. DAILY [facility] Last Admin: 05/23/18 08:42 Dose: 21 mg Nitroglycerin (Nitrostat) 0.4 mg SUBLINGUAL Q5M PRN PRN Reason: Chest Pain Oxycodone HCl (Oxyir) 7.5 - 15 mg PO Q6H PRN PRN PRN Reason: PAIN Last Admin: 05/23/18 08:54 Dose: 10 mg Pantoprazole Sodium (Protonix) 40 mg PO DAILY [facility] Last Admin: 05/23/18 08:41 Dose: 40 mg Rosuvastatin Calcium (Crestor) 40 mg PO QHS [facility] Last Admin: 05/22/18 21:20 Dose: 40 mg Sodium Chloride () 5 - 30 ml IV UD PRN PRN Reason: SALINE FLUSH Last Admin: 05/23/18 05:20 Dose: 10 ml Spironolactone (Aldactone) 25 mg PO QAM [facility] Last Admin: 05/23/18 08:43 Dose: 25 mg Medical Necessity - Tobacco Use Smoking Status: Current some day smoker Assessment/Plan All Active Problems (Last Reviewed 12/15/17 @ 10:18 by Ramonita Alcantar) Shortness of breath (Acute) URI (upper respiratory infection) (Resolved) Acute renal failure superimposed on stage 3 chronic kidney disease (Resolved) COPD exacerbation (Acute) JILLIAN (acute kidney injury) (Resolved) Acute hypoxemic respiratory failure (Resolved) Presence of automatic implantable cardioverter-defibrillator (Resolved) H/O coronary artery bypass surgery (Resolved ~2008) Abdominal pain (Resolved) Acute non-ST segment elevation myocardial infarction (Resolved) NSTEMI (non-ST elevated myocardial infarction) (Resolved) Non-STEMI (non-ST elevated myocardial infarction) (Resolved) 1. COPD exacerbation - Charted as 96% on RA and then sitting in the room with the NC inplace at 2 L - CXR was negative for any infiltrate, consolidation or pleural effusion - Solumedrol 40 mg TID, which is causing his leukocytosis given he is afebrile - Was very recently discharged from the ER with a steroid taper over the course of a week - Added inhaled budesonide - C/w levaquin for now - BNP 128 on admission, he has been as high as the 700's on previous admission - C/w duonebs - Troponin negative x2 - No productive cough - PFT a year ago with irreversible airway disease and DLCO of 60% - Will obtain an ambulatory pulse-Ox today 2. CAD s/p CABG/chronic systolic CHF/HTN/HLD - C/w lasix 40 mg BID, imdur and aldactone - monitor renal function - Stable not active at the moment - C/w BB, statin and fenofibrate 3. Chronic back pain - He takes percocet 7.5 mg at home q6 hours - occasionally he will take 2 - C/w oxycodone 7.5 mg 1-2 q6 prn - His biggest concern seems to be his back pain and not his breathing, I would recommend pain management as an outpatient DVT prophylaxis: Heparin Code Visit Inpatient E&M: 00955 Subs Hosp L2
[2018-05-23] MEDS: levoFLOXacin IV 750 MG/150 ML BAG 100 MG IV (13:15)
[2018-05-23 14:50] LABS: Bedside Glucose 173 mg/dL (70-110)
[2018-05-23 16:55] LABS: Bedside Glucose 182 mg/dL (70-110)
[2018-05-23] MEDS: Rosuvastatin 20 MG Tablet 40 MG PO (22:00)
[2018-05-23] MEDS: MELATONIN 3 MG TABLET PO (22:04)
[2018-05-23 22:41] LABS: Bedside Glucose 225 mg/dL (70-110)
[2018-05-24] VITALS (11 sets, daily range): BP systolic 115–121; BP diastolic 68–74; PULSE 65–86; RESP 16–20; TEMP 36.6; O2SAT 93–94
[2018-05-24] MEDS: Albuterol 2.5 MG/3 ML VIAL.NEB. INHALATION (00:12)
[2018-05-24] MEDS: oxyCODONE 5 MG Tablet PO ×2 (05:40→11:43)
[2018-05-24] MEDS: 0.9% NaCl Peripheral Flush Adult/Peds IV ×2 (05:40→09:09)
[2018-05-24] MEDS: Acetaminophen 325 MG Tablet 650 MG PO ×2 (05:40→11:42)
[2018-05-24 06:36] LABS: Absolute Lymphocyte Count 0.81 X10^3/ul (0.83-4.51); Absolute Neutrophil Count 9.7 X10^3/uL (2.0-7.7); Basophil# 0.01 X10^3/uL; Basophil% 0.1 % (0-1); Hematocrit 40.3 % (40-54); Hemoglobin 13.1 g/dl (13.0-16.5); Lymphocyte # 0.81 X10^3/ul (4.0); Lymphocyte % 7.4 % (19-41); Mean Corp Hgb Conc 32.5 g/gl (32-36); Mean Corpuscular Hgb 30.4 pg (27.0-32.0); Mean Corpuscular Volume 93.5 fL (80-94); Monocyte# 0.34 X10^3/uL; Monocyte% 3.1 % (0-10); Neutrophil # 9.74 X10^3/uL (2.7-7.7); Platelet Count 212 K/mm3 (150-450); RBC Distribution Width CV 14.9 % (11.6-14.6); RBC Distribution Width SD 51.1 fl (35.1-43.9); Red Blood Count 4.31 M/mm3 (4.6-6.2); White Blood Count 10.9 K/mm3 (4.4-11.0)
[2018-05-24 06:40] LABS: POSITIVE COUNT NO; POSITIVE DIFFERENTIAL NO; POSITIVE MORPHOLOGY NO
[2018-05-24 06:46] LABS: Anion Gap 9 (5-15); BUN 40 mg/dL (7-18); BUN/Creat Ratio 28.4 RATIO (10-20); Calcium,Total 8.4 mg/dL (8.5-10.1); Chloride 103 mmol/L (98-107); Creatinine, Serum 1.41 mg/dL (0.70-1.30); EST Glomerular Filtration Rate 53 mL/min (>60); Est Glom Filt Rate - Afr Amer 64 mL/min (>60); Estimated Creatinine Clearance 50.84 ml/min; Glucose 150 mg/dL (74-106); Magnesium 2.6 mg/dL (1.6-2.6); Potassium 4.6 mmol/L (3.5-5.1); Sodium Level 140 mmol/L (136-145)
[2018-05-24 07:16] LABS: Bedside Glucose 162 mg/dL (70-110)
[2018-05-24] MEDS: Ipratropium/Albuterol Sulfate 3 ML AMPUL.NEB INHALATION ×2 (07:17→11:33)
[2018-05-24] MEDS: Budesonide Respules 0.5 MG/2 ML AMPUL.NEB. INHALATION (07:17)
[2018-05-24] MEDS: Insulin Lispro 100 UNIT/ML INSULN.PEN SC ×2 (09:04→11:20)
[2018-05-24] MEDS: Allopurinol 300 MG Tablet PO (09:05)
[2018-05-24] MEDS: Fenofibrate 145 MG Tablet PO (09:05)
[2018-05-24] MEDS: Furosemide 40 MG Tablet PO (09:05)
[2018-05-24] MEDS: Aspirin E.C. 81 MG Tablet PO (09:05)
[2018-05-24] MEDS: Spironolactone 25 MG Tablet PO (09:05)
[2018-05-24] MEDS: Isosorbide Mononitrate 30 MG Tablet PO (09:05)
[2018-05-24] MEDS: Pantoprazole Sodium 40 MG Tablet PO (09:06)
[2018-05-24] MEDS: Metoprolol(XL)Succ 100 MG Tablet PO (09:06)
[2018-05-24] MEDS: Clopidogrel Bisulfate 75 MG Tablet PO (09:06)
[2018-05-24] MEDS: levoFLOXacin IV 750 MG/150 ML BAG 100 MG IV (09:09)
[2018-05-24] MEDS: predniSONE 20 MG Tablet 40 MG PO (09:09)
--- NOTE | 2018-05-24 09:29 | DCINST_ITS ---
You will use the following diet at home:: Cardiac Your food should be the consistency of: Regular Discharge Activity: Return to Normal Activity Weight Bearing Status: Weight bearing as tolerated Call your doctor if you observe: Fever of 101 or Higher, Shortness of breath, Dizziness, Fainting spells, Chest pain, Increased palpitations (irregular heartbeat), Uncontrolled pain Instructions: Discharge Instructions: COPD Allergies/Adverse Reactions: Allergies chlorpromazine HCl [From Thorazine] Allergy (Severe, Verified 05/20/18 15:45) Hives PER PATIENT tramadol HCl [From Ultram] Allergy (Severe, Verified 05/20/18 15:45) Hives PER PATIENT codeine Allergy (Intermediate, Verified 05/20/18 15:45) Hives atorvastatin Adverse Reaction (Intermediate, Verified 05/20/18 15:45) Other LEG PAIN/CRAMPS naproxen Adverse Reaction (Verified 05/20/18 15:45) Upset Stomach promethazine [From Phenergan] Adverse Reaction (Verified 05/20/18 15:45) Other CONFUSION Medications to take at Discharge Nitroglycerin [Nitrostat] 0.4 mg SUBLINGUAL Q5M PRN 09/17/15 Isosorbide Mononitrate [Imdur] 30 mg PO DAILY 02/18/17 Albuterol Aerosols [Ventolin Aerosols] 2.5 mg INHALATION Q4H PRN PRN 02/23/17 Clopidogrel Bisulfate [Plavix] 75 mg PO DAILY #30 tab 06/17/17 albuterol sulfate HFA 90 mcg/actuation aerosol inhaler 2 puff INHALATION Q4H PRN g 07/31/17 fenofibrate nanocrystallized 145 mg tablet 145 mg PO DAILY 07/31/17 rosuvastatin 40 mg tablet 40 mg PO DAILY 07/31/17 spironolactone 25 mg tablet 25 mg PO QAM 07/31/17 Pantoprazole Sodium [Protonix] 40 mg PO DAILY 11/15/17 Oxycodone HCl/Acetaminophen [Percocet 7.5-325 mg Tablet] 1 tab PO Q6H PRN PRN 5 Days #15 tab 12/03/17 Aspirin E.C. [Ecotrin] 81 mg PO DAILY 02/02/18 proMETHazine tablet [Phenergan tablet] 25 mg PO Q6H PRN PRN 02/02/18 umeclidinium 62.5 mcg-vilanterol 25 mcg/actuation powdr for inhalation 1 inh INHALATION DAILY #60 ea 02/05/18 Allopurinol 300 mg PO DAILY 05/20/18 Furosemide 40 mg PO DAILY 05/20/18 Metoprolol Succinate [Toprol Xl] 100 mg PO DAILY 05/20/18 Nicotine [Nicotine Patch] 21 mg TP DAILY 05/20/18 Lisinopril [Zestril] 2.5 mg PO DAILY 05/21/18 Levofloxacin [Levaquin] 500 mg PO DAILY #5 tablet 05/24/18 Prednisone 40 mg PO DAILY #5 tab 05/24/18 The following prescriptions were given: Levofloxacin [Levaquin] 500 mg PO DAILY #5 tablet Prednisone 40 mg PO DAILY #5 tab Primary Care Physician: Juan De La Vega III, MD [Primary Care Provider] - Please follow up with your Primary Care Physician in: 1 week. Test Results: Test results from this visit will be discussed in further detail at your follow- up appointment, if applicable.
--- NOTE | 2018-05-24 09:40 | CPS ---
Patient reported working on PEP therapy on own.
[2018-05-24 11:30] LABS: Bedside Glucose 178 mg/dL (70-110)
--- NOTE | 2018-05-24 14:45 | PCM.DC.SUM ---
Discharge Date and Diagnosis Date of Admission: 05/20/18 Date of Discharge: 05/24/18 - Primary Discharge Diagnosis Acute COPD exacerbation. - Secondary Discharge Diagnosis Chronic Problems (Last Reviewed 12/15/17 @ 10:18 by Ramonita Alcantar) Musculoskeletal chest pain (Chronic) COPD (chronic obstructive pulmonary disease) (Chronic) Obesity (BMI 30.0-34.9) (Chronic) Chest pain (Chronic) Nicotine dependence (Chronic) Chronic bronchitis (Chronic) Sciatica (Chronic) Gout (Chronic) Degenerative cervical disc (Chronic) Claudication (Chronic) Chronic back pain (Chronic) Presence of automatic implantable cardioverter-defibrillator (Chronic) Chronic renal failure, stage 3 (moderate) (Chronic) Chronic systolic (congestive) heart failure (Chronic) Stented coronary artery (Chronic ~12/2016) has had 7 stents as of 06/15/17 Ischemic cardiomyopathy (Chronic) 25% ejection fraction in November 2016 V-tach (Chronic) has an AICD Benign essential hypertension (Chronic) Gastroesophageal reflux disease (Chronic) Hyperlipidemia (Chronic) Type 2 diabetes mellitus (Chronic) Morbid obesity (Chronic) CAD (coronary artery disease) (Chronic) Hospital Course and Treatment Imaging Results: Clinical Impression(s) from Imaging Studies Chest X-Ray 05/20/18 16:26 IMPRESSION: Lung bui expanded without new consolidation, focal atelectasis or a substantial pleural effusion. Normal cardiac size status post prior midline sternotomy with ICD in good position. Electronically Signed: Rupinder Levine MD at 16:55 EDT , Service support , Chest X-Ray 05/23/18 08:00 IMPRESSION: 1. No acute cardiopulmonary pathology. 2. Pulmonary hyperinflation with flattening of the hemidiaphragms are suggestive of mild COPD. 3. Minimal anterior wedging of T11 vertebral body is presumably from remote injury. 4. No significant interval changes when compared to 05/20/2018. Electronically Signed: Davi Mendoza MD at 8:14 EDT , Service support , Operations: None Procedures: None Summary of Care Provided: Patient seen and examined on the day of discharge and appeared to be stable to be discharged home. Reported continuing improvement of his shortness of breath and his walking pulse oximeter was 92% on room air. Reported cough without sputum production. His vital signs are stable. Hospital course: The patient is a 68 year old M admitted because of worsening shortness of breath and dry cough and he was found to have acute COPD exacerbation. His chest x-ray showed chronic findings consistent with COPD without evidence of acute infiltrate. Pneumonia ruled out. He was treated with bronchodilators, IV steroids and antibiotics. His routine blood work was remarkable for mild hypokalemia and chronic elevated creatinine which was stable. With above-mentioned treatment, patient was improved. His walking pulse oximeter done twice and on May 23, 2018, it was 89% on room air with ambulation. On the day of discharge, walking pulse oximeter was 92% on room air with ambulation. Patient symptoms improved and he was able to maintain his pulse ox without oxygen. There was no indication for home oxygen. Patient discharged home in a stable medical condition, discharged on tapering course of prednisone, discharged on Levaquin for 5 days, continued on albuterol as needed and Vilanterol, continued his other home medication without any changes, recommended from PCP in 1 week. - Physical Exam General: Alert, Oriented x3, Cooperative HEENT: Atraumatic, PERRLA, EOMI, Normocephalic Oral: Moist Mucosa, No Gingival or Mucosal Lesions/ Ulcerations Neck: Supple, No JVD, Negative Carotid Bruits, Trachea Midline, Thyroid Normal Size and Texture Lungs: No wheeze, No rales, Diminished, Rhonchi, - - Diminished breath sounds bilateral, scattered rhonchi. Cardiovascular: Regular rate, Regular Rhythm, Normal S1, Normal S2, PMI Normal Abdomen: Bowel Sounds Present, Soft, Non Tender, Non-Distended, No Hepato-splenomegaly Extremities: No clubbing, No cyanosis, No edema Skin: No rashes, No breakdown Lymphatic: No Cervical, Supraclavicular, or Inguinal Adenopathy Neurological: Cranial nerves II-XII grossly intact, Motor Exam 5/5 strength throughout Psych/Mental Status: Normal Affect, Alert and oriented to time, place, person, mood and affect Vital Signs Temp Pulse Resp BP Pulse Ox 97.9 F 82 18 115/68 93 05/24/18 08:32 05/24/18 11:35 05/24/18 11:35 05/24/18 08:32 05/24/18 09:01 Oxygen Flow Rate (L/min) [ 0 AMBULATING on Room Air] Oxygen Flow Rate (L/min) 2 Oxygen Delivery Method Room Air Weight: 208 lb 1.862 oz Body Mass Index (BMI) 30.7 Intake and Output for Last 24 Hours 05/22/18 05/23/18 05/24/18 23:59 23:59 23:59 Intake Total 1780 / 1780 2463 / 2463 799 / 799 Balance 1780 / 1780 2463 / 2463 799 / 799 Laboratory Tests Past 24 Hrs 05/24/18 05/24/18 05:36 05:36 WBC 10.9 RBC 4.31 L Hgb 13.1 Hct 40.3 MCV 93.5 MCH 30.4 MCHC 32.5 RDW 14.9 H RDW Differential 51.1 H Plt Count 212 MPV 10.0 Immature Gran % (Auto) 0.400 Neut % (Auto) 89.0 H Lymph % (Auto) 7.4 L [place] % (Auto) 3.1 Eos % (Auto) 0.0 Baso % (Auto) 0.1 Absolute Neuts (auto) 9.7 H Absolute Lymphs (auto) 0.81 L Total Counted Not Reportable Sodium 140 Potassium 4.6 Chloride 103 Carbon Dioxide 28.0 Anion Gap 9 BUN 40 H Creatinine 1.41 H Estim Creat Clear Calc 50.84 Est GFR (MDRD) Af Amer 64 Est GFR (MDRD) Non-Af 53 L BUN/Creatinine Ratio 28.4 H Glucose 150 H Calcium 8.4 L Magnesium 2.6 POC Glucose 05/24/18 05/24/18 05/23/18 11:18 07:04 21:59 POC Glucose 178 H 162 H 225 H 05/23/18 05/23/18 16:34 14:48 POC Glucose 182 H 173 H Discharge Activity: Return to Normal Activity Weight Bearing Status: Weight bearing as tolerated Call your doctor if you observe: Fever of 101 or Higher, Shortness of breath, Dizziness, Fainting spells, Chest pain, Increased palpitations (irregular heartbeat), Uncontrolled pain Home Medications: Medications to take at Discharge Nitroglycerin [Nitrostat] 0.4 mg SUBLINGUAL Q5M PRN 09/17/15 Isosorbide Mononitrate [Imdur] 30 mg PO DAILY 02/18/17 Albuterol Aerosols [Ventolin Aerosols] 2.5 mg INHALATION Q4H PRN PRN 02/23/17 Clopidogrel Bisulfate [Plavix] 75 mg PO DAILY #30 tab 06/17/17 albuterol sulfate HFA 90 mcg/actuation aerosol inhaler 2 puff INHALATION Q4H PRN g 07/31/17 fenofibrate nanocrystallized 145 mg tablet 145 mg PO DAILY 07/31/17 rosuvastatin 40 mg tablet 40 mg PO DAILY 07/31/17 spironolactone 25 mg tablet 25 mg PO QAM 07/31/17 Pantoprazole Sodium [Protonix] 40 mg PO DAILY 11/15/17 Oxycodone HCl/Acetaminophen [Percocet 7.5-325 mg Tablet] 1 tab PO Q6H PRN PRN 5 Days #15 tab 12/03/17 Aspirin E.C. [Ecotrin] 81 mg PO DAILY 02/02/18 proMETHazine tablet [Phenergan tablet] 25 mg PO Q6H PRN PRN 02/02/18 umeclidinium 62.5 mcg-vilanterol 25 mcg/actuation powdr for inhalation 1 inh INHALATION DAILY #60 ea 02/05/18 Allopurinol 300 mg PO DAILY 05/20/18 Furosemide 40 mg PO DAILY 05/20/18 Metoprolol Succinate [Toprol Xl] 100 mg PO DAILY 05/20/18 Nicotine [Nicotine Patch] 21 mg TP DAILY 05/20/18 Lisinopril [Zestril] 2.5 mg PO DAILY 05/21/18 Levofloxacin [Levaquin] 500 mg PO DAILY #5 tablet 05/24/18 Prednisone 40 mg PO DAILY #5 tab 05/24/18 Following Prescrptions Were Given to Patient: Levofloxacin [Levaquin] 500 mg PO DAILY #5 tablet Prednisone 40 mg PO DAILY #5 tab Primary Care Physician: Juan De La Vega III, MD [Primary Care Provider] - Please follow up with your Primary Care Physician in: 1 week. Patient Instructions: Discharge Instructions: COPD Medical Necessity - Tobacco Use Smoking Status: Current some day smoker Tobacco Use: Cigarettes Meaningful Use Info Meaningful Use Diagnoses (Choose all that apply): None applicable Code Visit Inpatient E&M: 60462 Disch Hosp
--- NOTE | 2018-05-25 12:04 | CASEMGMT ---
FOLLOW-UP CALL: Call placed to patient's home phone number. A member of the household answered the phone and offered to take a message, as the patient is sleeping. I provided return contact information to the family member.
== END 2018-05-24 12:20 | disposition home or self-care (01) | DRG 191 ==
LOC: ED 17:09 → PCU 18:36
PROVIDERS: Family Medicine; Admitting Provider Student in an Organized Health Care Education/Training Program; Emergency Provider Emergency Medicine; Family Provider Family Medicine; PCP Family Medicine; Visit Provider Hospitalist
DX: J44.1 Chronic obstructive pulmonary disease with (acute) exacerbation (principal); I50.22 Chronic systolic (congestive) heart failure; E87.6 Hypokalemia; E78.5 Hyperlipidemia, unspecified; I25.10 Atherosclerotic heart disease of native coronary artery without angina pectoris; M10.9 Gout, unspecified; G89.29 Other chronic pain; M54.9 Dorsalgia, unspecified; I25.5 Ischemic cardiomyopathy; E66.01 Morbid (severe) obesity due to excess calories; K21.9 Gastro-esophageal reflux disease without esophagitis; I12.9 Hypertensive chronic kidney disease with stage 1 through stage 4 chronic kidney disease, or unspecified chronic kidney disease; N18.3 Chronic kidney disease, stage 3 (moderate); Z95.810 Presence of automatic (implantable) cardiac defibrillator; Z95.1 Presence of aortocoronary bypass graft; Z66 Do not resuscitate; Z68.30 Body mass index [BMI] 30.0-30.9, adult; F17.200 Nicotine dependence, unspecified, uncomplicated
CPT/HCPCS: 36415; 71045; 71046; 80048; 82962; 83036; 83605; 83735; 83880; 84484; 85025; 93005; 94640; 94667; 94668; 97802; 99285; 99406; J7040; A4216

== ENCOUNTER 2018-05-31 10:09 | Emergency (ER) | payer MEDICARE, MEDICAID, SELFPAY ==
[2018-05-31 10:11] VITALS: BP 101/59; PULSE 83; RESP 18; TEMP 36.1; O2SAT 94
[2018-05-31 11:10] VITALS: PULSE 85; RESP 18
[2018-05-31] MEDS: Ipratropium/Albuterol Sulfate 3 ML AMPUL.NEB INHALATION (11:10)
[2018-05-31 11:12] VITALS: O2SAT 96
--- NOTE | 2018-05-31 11:15 | RAD_ITS ---
STUDY: X-RAY CHEST REASON FOR EXAM: Male, 68 years old. Cough. History of chronic bronchitis. TECHNIQUE: PA and lateral views of the chest. COMPARISON: Comparison is made with prior study dated May 23, 2018. FINDINGS: Hyperinflation. Scattered calcified granulomas. There is no demonstrated pleural abnormality. Sternal cerclage wires and vascular clips are present from a prior sternotomy and coronary artery bypass graft procedure (CABG). A left-sided dual-chamber pacemaker is seen. Normal mediastinum and serjio. There is prominence of the pulmonary hilar arteries without peripheral pulmonary vascular congestion, suggesting pulmonary hypertension. Normal visualized aortic arch and descending thoracic aorta. There are degenerative changes of the visualized thoracic spine. Normal visualized ribs, clavicles, and shoulders. There is no demonstrated abnormality of the visualized soft tissue structures of the upper abdomen. RAD/Chest PA and Lateral IMPRESSION: Hyperinflation. No acute abnormality is seen. Electronically Signed: Arcenio Leary MD at 11:32 EST Tel [phone], Service support ,
--- NOTE | 2018-05-31 12:25 | ED.DCSUM_ITS ---
- ER Visit Summary Date of Service: 05/31/18 Chief Complaint: [Mouth pain] History of Present Illness: The patient is a 68 M [presents the emergency department complaint of mouth pain for for 5 days. Patient states that he was just admitted to the hospital last week and discharged after being diagnosed wit h an upper respiratory infection. Patient's been on Levaquin which she finished and is still currently on prednisone. Patient continues to cough but really not much, not. He denies any fever. Patient does have a history of COPD, diabetes, high cholesterol, and coronary artery disease.] Physical Examination: [HEENT-PERRLA, EOMI. Cranial nerves II through XII grossly intact. TMs clear. Mucous membranes moist. No adenopathy. Patient does have diffuse erythema of the soft palate and oral mucosa as well as of the tongue. No white plaques noted. Cardiovascular-regular rate and rhythm without murmur or ectopy Lungs-good aeration bilaterally. Patient has some faint expiratory wheezes bilaterally. No accessory muscle use or retractions. Abdomen-normoactive bowel sounds, soft, nontender, no rebound or rigidity, no peritoneal signs. Extremities-intact ?4, normal range of motion, normal pulses, atraumatic] Test Results: [Chest x-ray obtained showed nothing acute. I did send off a throat culture which is pending.] Emergency Department Course and Treatment: [Case was discussed with Dr. Ravin day of ENT who asked that we start patient on nystatin oral solution. Patient to follow-up with his office.] Treatment Plan: [We will treat with nystatin and Magic mouthwash. Patient to follow-up with ENT] Disposition: [Discharged home stable condition] Impression: [Glossitis-Patsy infection] This note was generated with [employer] dictation software. It may contain incorrect words, spelling, and punctuation that were not noted in review of the chart prior to signing ED Disposition - Plan for ED Patient: Chief Complaint: Cough Referrals: Juan De La Vega III, MD [Primary Care Provider] -
--- NOTE | 2018-05-31 12:26 | ED.DEP ---
ED Disposition - Plan for ED Patient: Chief Complaint: Cough Instructions: Oral Thrush Prescriptions: Nystatin 100,000 unit PO BID #20 oral.susp Magic Mouth Wash 10 ml PO TID #150 ml Referrals: Juan De La Vega III, MD [Primary Care Provider] - Ravin Cornejo MD [STAFF PHYSICIAN] - 5-7 Days
[2018-05-31 12:35] VITALS: BP 118/64; PULSE 78; RESP 18; O2SAT 96
== END 2018-05-31 12:36 | disposition home or self-care (01) ==
LOC: ED 11:08
PROVIDERS: Emergency Provider Emergency Medicine; Family Provider Family Medicine; PCP Family Medicine
DX: K14.0 Glossitis (principal); B37.9 Candidiasis, unspecified; J44.9 Chronic obstructive pulmonary disease, unspecified; E11.9 Type 2 diabetes mellitus without complications; E78.00 Pure hypercholesterolemia, unspecified; I25.10 Atherosclerotic heart disease of native coronary artery without angina pectoris; R05 Cough; Z72.0 Tobacco use
CPT/HCPCS: 71046; 87070; 94640; 99282

== ENCOUNTER 2018-06-16 14:54 | Emergency (ER) | payer MEDICARE, MEDICAID, SELFPAY ==
[2018-06-16 14:56] VITALS: BP 107/66; PULSE 77; RESP 28; TEMP 36.6; O2SAT 93; BMI 31.3
[2018-06-16 15:00] VITALS: O2SAT 97
--- NOTE | 2018-06-16 15:14 | CT_ITS ---
STUDY: CT CHEST WITH CONTRAST REASON FOR EXAM: Male, 68 years old. Trauma RADIATION DOSAGE (If Supplied By Facility): CTDIvol = ( 19.75 ) mGy, DLP = ( 1814.37 ) mGycm TECHNIQUE: Transaxial imaging was performed following intravenous administration of 100CC ml of Isovue 300 contrast material. Individualized dose optimization techniques were used for this CT. COMPARISON: Previous study of 12/30/2012 FINDINGS: A left-sided pacemaker is present with intracardiac wires noted. Evaluation of the lungs is limited due to significant breathing motion artifact. There are mild emphysematous changes of the upper lobes. There is no demonstrated pleural abnormality. The heart size is within normal limits. There is no pericardial effusion. Intracardiac pacing wires are seen. Coronary arterial calcifications are noted. There are scattered nonpathologically enlarged mediastinal nodes. Normal hilar regions. Normal enhanced pulmonary arteries. There are calcified plaques of the thoracic aorta. There are nondisplaced fractures of the lateral right sixth and seventh ribs. Status post sternotomy changes are evident. There is mild endplate spondylosis of the thoracic spine. Abdominal findings are reported separately. CT/Chest WITH Contrast IMPRESSION: 1. Nondisplaced fractures of the lateral right sixth and seventh ribs. 2. There is no evidence of hemo or pneumothorax or pulmonary contusion. 3. Mild emphysematous changes of the upper lobes. 4. Status post sternotomy. Electronically Signed: Ziyad Howell MD at 17:02 EST , Service support ,
--- NOTE | 2018-06-16 15:14 | CT_ITS ---
STUDY: CT ABDOMEN AND PELVIS WITH CONTRAST REASON FOR EXAM: Male, 68 years old. Trauma RADIATION DOSAGE (If Supplied By Facility): CTDIvol = ( 19.75 ) mGy, DLP = ( 1814.37 ) mGycm TECHNIQUE: Transaxial images were obtained from the dome of the diaphragm to the symphysis pubis without oral contrast. 100CC ml of Isovue 300 contrast was administered. Sagittal and coronal images were reconstructed. Individualized dose optimization techniques were used for this CT. COMPARISON: Previous study of 04/24/2018 FINDINGS: Chest findings are reported separately. Normal liver. Normal gallbladder and extrahepatic biliary system. Normal spleen. Normal pancreas. Normal bilateral adrenal glands. Normal right kidney. Normal left kidney. Normal visualized stomach. Normal small intestine. There are scattered colonic diverticuli with no evidence of associated diverticulitis. The appendix is visualized and appears normal. There are calcified plaques of the abdominal aorta and common iliac arteries. Normal inferior vena cava. Normal retroperitoneum. Normal urinary bladder. There are small bilateral fat-containing inguinal hernias. There are severe degenerative changes of the lumbar spine. CT/Abdomen/Pelvis W IV Cont ONLY IMPRESSION: 1. Colonic diverticulosis with no evidence of associated diverticulitis. 2. Small bilateral fat-containing inguinal hernias. 3. Severe degenerative changes of the lumbar spine. 4. There is no evidence of free intra-abdominal or intrapelvic air or fluid. Electronically Signed: Ziyad Howell MD at 16:55 EST , Service support ,
--- NOTE | 2018-06-16 15:23 | ED.VISSUMM ---
- ER Visit Summary Date of Service: 06/16/18 Chief Complaint: Fall History of Present Illness: The patient is a 68 M presenting after fall. Patient was sleeping and states he rolled out of bed. He hit his right side of his chest on a chair. He denies hitting his head. He denies loss of consciousness. He was able to ambulate after the fall. Denies other injuries. He is on Plavix. Physical Examination: Vitals are stable. Patient is afebrile. Alert no acute distress. HEENT exam is unremarkable. Neck is nontender Lungs are clear and equal bilaterally. Right lateral chest tenderness with no crepitus Heart is regular rate and rhythm. Abdomen is soft right upper quadrant tenderness with no rebound or guarding Extremities are unremarkable. Skin is warm and dry. No focal neurologic deficit. Remainder of exam is unremarkable. Emergency Department Course and Treatment: Patient is given Dilaudid and Zofran IV. CT chest shows nondisplaced fracture right sixth and seventh rib with no evidence of pneumothorax. CT abdomen and pelvis shows no acute process. Patient was given additional Dilaudid IV. CBC, chemistries unremarkable other than BUN 24. Discussed with the hospitalist for admission for pain control. Patient was seen by Dr. Solis in the ED. He had discussion with the patient and his . Patient prefers to go home for Thanksgiving. He will be discharged on Percocet. He was given an incentive spirometer. Advised return to ED if worsening complaints. Disposition: Discharge home Impression: Right sixth and seventh rib fracture This note was generated with [employer] dictation software. It may contain incorrect words, spelling, and punctuation that were not noted in review of the chart prior to signing ED Disposition - Plan for ED Patient: Chief Complaint: Fall Instructions: ED Fx Rib Prescriptions: Oxycodone HCl/Acetaminophen [Percocet 5/325] 1 tablet PO Q6H PRN PRN 5 Days #20 tablet PRN Reason: Pain Referrals: Juan De La Vega III, MD [Primary Care Provider] -
[2018-06-16] MEDS: HYDROmorphone 1 MG/ML Syringe IV ×2 (15:53→17:25)
[2018-06-16] MEDS: Ondansetron 4 MG/2 ML Vial IV (15:53)
[2018-06-16] MEDS: 0.9% Normal Saline 1,000 ML 999 ML IV (15:53)
[2018-06-16 17:00] VITALS: BP 130/78; PULSE 80; RESP 16; O2SAT 98
[2018-06-16 17:54] LABS: Absolute Lymphocyte Count 1.66 X10^3/ul (0.83-4.51); Absolute Neutrophil Count 4.8 X10^3/uL (2.0-7.7); Basophil# 0.01 X10^3/uL; Basophil% 0.1 % (0-1); Eosinophil# 0.12 X10^3/uL; Eosinophils% 1.6 % (0-5); Hemoglobin 13.6 g/dl (13.0-16.5); Lymphocyte # 1.66 X10^3/ul (4.0); Lymphocyte % 22.1 % (19-41); Mean Corp Hgb Conc 32.4 g/gl (32-36); Mean Corpuscular Hgb 30.6 pg (27.0-32.0); Mean Corpuscular Volume 94.4 fL (80-94); Mean Platelet Vol. 9.5 fl (6.2-12.0); Monocyte# 0.87 X10^3/uL; Monocyte% 11.6 % (0-10); Neutrophil # 4.83 X10^3/uL (2.7-7.7); Neutrophil % 64.3 % (47-70); Platelet Count 223 K/mm3 (150-450); RBC Distribution Width CV 15.3 % (11.6-14.6); RBC Distribution Width SD 52.2 fl (35.1-43.9); Red Blood Count 4.45 M/mm3 (4.6-6.2); White Blood Count 7.5 K/mm3 (4.4-11.0)
[2018-06-16 17:58] LABS: POSITIVE COUNT NO; POSITIVE DIFFERENTIAL NO; POSITIVE MORPHOLOGY NO
[2018-06-16 18:06] LABS: Anion Gap 7 (5-15); BUN 24 mg/dL (7-18); BUN/Creat Ratio 19.7 RATIO (10-20); Calcium,Total 8.3 mg/dL (8.5-10.1); Chloride 102 mmol/L (98-107); Creatinine, Serum 1.22 mg/dL (0.70-1.30); EST Glomerular Filtration Rate 63 mL/min (>60); Est Glom Filt Rate - Afr Amer 76 mL/min (>60); Estimated Creatinine Clearance 58.76 ml/min; Glucose 82 mg/dL (74-106); Potassium 3.9 mmol/L (3.5-5.1); Sodium Level 138 mmol/L (136-145)
--- NOTE | 2018-06-16 18:40 | ED.DEP ---
ED Disposition - Plan for ED Patient: Chief Complaint: Fall Instructions: ED Fx Rib Prescriptions: Oxycodone HCl/Acetaminophen [Percocet 5/325] 1 tablet PO Q6H PRN PRN 5 Days #20 tablet PRN Reason: Pain Referrals: Juan De La Vega III, MD [Primary Care Provider] -
[2018-06-16 19:00] VITALS: BP 134/90; PULSE 75; RESP 22; O2SAT 94
[2018-06-16 19:10] VITALS: BP 134/90; PULSE 75; RESP 22; O2SAT 94
== END 2018-06-16 19:12 | disposition home or self-care (01) ==
LOC: ED 15:25
PROVIDERS: Emergency Provider Emergency Medicine; Family Provider Family Medicine; PCP Family Medicine
DX: S22.31XA Fracture of one rib, right side, initial encounter for closed fracture (principal); W06.XXXA Fall from bed, initial encounter; E11.9 Type 2 diabetes mellitus without complications; I10 Essential (primary) hypertension; E78.00 Pure hypercholesterolemia, unspecified; I25.10 Atherosclerotic heart disease of native coronary artery without angina pectoris; J44.9 Chronic obstructive pulmonary disease, unspecified; K21.9 Gastro-esophageal reflux disease without esophagitis; Z95.1 Presence of aortocoronary bypass graft; Z72.0 Tobacco use
CPT/HCPCS: 71260; 74177; 80048; 85025; 96361; 96374; 96375; 96376; 99285; J7030; Q9967; A4216; J2405

== ENCOUNTER 2018-06-20 06:32 | Emergency (ER) | payer MEDICARE, MEDICAID, SELFPAY ==
[2018-06-20 06:33] VITALS: BP 106/89; PULSE 82; RESP 25; TEMP 36.1; O2SAT 97; BMI 30.4
[2018-06-20 06:35] VITALS: O2SAT 96
--- NOTE | 2018-06-20 07:33 | EKG12_ITS ---
Test Reason : SOB Blood Pressure : / mmHG Vent. Rate : 083 BPM Atrial Rate : 083 BPM P-R Int : 138 ms QRS Dur : 102 ms QT Int : 390 ms P-R-T Axes : 060 -06 141 degrees QTc Int : 458 ms Sinus rhythm with Premature atrial complexes ST & T wave abnormality, consider anterolateral ischemia Abnormal ECG Confirmed by SHAVONNE LUNDBERG, LISA ([id number]), editorial writer AYESHA HARRIS ([id number]) on 06/22/2018 4:20:48 PM Referred By: AMEENA Confirmed By:LISA MARVIN MD
[2018-06-20] MEDS: Ipratropium/Albuterol Sulfate 3 ML AMPUL.NEB INHALATION (07:42)
[2018-06-20 07:43] VITALS: PULSE 73; RESP 20
--- NOTE | 2018-06-20 07:47 | ED.DCSUM_ITS ---
- ER Visit Summary Date of Service: 06/20/18 Chief Complaint: Chest pain and shortness of breath History of Present Illness: The patient is a 68 M who presents with the above chief complaint that has been getting worse over the past week. Patient states he fell out of bed last week and has fractures of his right lower ribs. Patient states his breathing has been getting worse. Patient states his breathing is worse with deep breathing and coughing. Patient denies any fevers or chills. Patient denies any sputum production. Patient describes his pain is squeezing. Patient states it is over the right lower chest area. Patient denies any nausea or vomiting. Patient denies any diaphoresis. Physical Examination: Vital signs are stable. Patient is afebrile. Patient is in no acute distress. Oral mucosa is pink and moist. Neck is supple. Trachea is midline. There is no JVD noted. Heart was regular rate and rhythm. Lungs showed diffuse expiratory wheezing. There is tenderness over the right lower chest area. Abdomen is soft. Bowel sounds are normal. There is some mild tenderness over the epigastric area. There is no rebound or guarding noted. Cranial nerves II through XII are intact. There are no focal motor or sensory deficits noted. The remaining physical exam is within normal limits. Test Results: EKG showed normal sinus rhythm with rate of 83. There is an occasional PAC noted. There is T wave inversion in the lateral leads. This was unchanged compared to previous EKG dated 05/20/2018. PA and lateral chest x-ray was obtained. There is no acute cardiopulmonary process. Emergency Department Course and Treatment: Patient was given a DuoNeb aerosol here. Patient was given a repeat albuterol aerosol here. Patient was given a dose of morphine here. Patient was instructed to take 10-15 deep breaths every hour while awake to prevent atelectasis and pneumonia. Patient was given a prescription for a short course of Binford. Patient was instructed to follow-up with his primary care physician in 5-7 days. Patient understood and was agreeable with the plan. All questions were answered. Disposition: Discharged home Impression: 1. Dyspnea 2. History of right lower rib fractures This note was generated with [employer] software. It may contain incorrect words, spelling, and punctuation that were not noted in review of the chart prior to signing ED Disposition - Plan for ED Patient: Disposition: Home or Assisted Living Chief Complaint: Shortness of Breath Diagnosis: Dyspnea, Right rib fracture Instructions: ED COPD Flare Prescriptions: Hydrocodone Bitart/Apap 5-325 [Binford 5MG-325MG] 1 tab PO Q6H PRN PRN 3 Days #10 tab PRN Reason: Pain Referrals: Juan De La Vega III, MD [Primary Care Provider] -
--- NOTE | 2018-06-20 08:18 | RAD_ITS ---
STUDY: X-RAY CHEST REASON FOR EXAM: Male, 68 years old. Pain with shortness of breath. With known rib fracture on the right side. TECHNIQUE: PA and lateral chest COMPARISON: 05/31/2018. FINDINGS: Left pectoral AICD device with 2 wire leads, stable. Median sternotomy with apparent CABG. Minimal basilar atelectasis. No defined infiltrate. No effusion or pneumothorax. No cardiomegaly. Normal mediastinal silhouette, serjio and pleural margins. There is no visible rib fracture. RAD/Chest PA and Lateral IMPRESSION: Minimal lung base atelectasis. Otherwise no acute cardiopulmonary process. Electronically Signed: Babatunde Ferguson MD at 8:48 EST Tel , Service support ,
[2018-06-20] MEDS: Albuterol 2.5 MG/3 ML VIAL.NEB. INHALATION (09:34)
[2018-06-20] MEDS: Morphine 4 MG/ML Syringe IV (09:36)
[2018-06-20 09:43] VITALS: PULSE 82; RESP 20
[2018-06-20 09:57] VITALS: BP 119/49; PULSE 79; RESP 16; O2SAT 98
== END 2018-06-20 10:32 | disposition home or self-care (01) ==
PROVIDERS: Emergency Provider Emergency Medicine; Family Provider Family Medicine; PCP Family Medicine
DX: R07.9 Chest pain, unspecified (principal); R06.00 Dyspnea, unspecified
CPT/HCPCS: 71046; 93005; 94640; 99284; A4216

== ENCOUNTER 2018-07-03 12:36 | Emergency (ER) | payer MEDICARE, MEDICAID, SELFPAY ==
[2018-07-03 12:37] VITALS: BP 141/119; PULSE 87; RESP 22; TEMP 37; O2SAT 94; BMI 31.0
--- NOTE | 2018-07-03 12:51 | RAD_ITS ---
STUDY: X-RAY CHEST REASON FOR EXAM: Male, 68 years old. Cough. Chest pain. Fell last night. Dizziness. TECHNIQUE: PA and lateral views of the chest. COMPARISON: June 20, 2018. FINDINGS: The lungs are clear and expanded. There is no demonstrated pleural abnormality. Sternal cerclage wires are present from a prior sternotomy. The heart remains enlarged. Stable cardiac pacemaker. Normal mediastinum and serjio. Normal visualized pulmonary arteries. Normal visualized aortic arch and descending thoracic aorta. There is demineralization of the osseous structures. Normal visualized ribs, clavicles, and shoulders. There is no demonstrated abnormality of the visualized soft tissue structures of the upper abdomen. RAD/Chest PA and Lateral IMPRESSION: Cardiomegaly with cardiac pacemaker and evidence of median sternotomy. There is no acute pulmonary disease. Electronically Signed: Dawit Robins DO at 14:15 EST Tel [phone], Service support ,
--- NOTE | 2018-07-03 12:51 | EKG12_ITS ---
Test Reason : CP Blood Pressure : / mmHG Vent. Rate : 082 BPM Atrial Rate : 082 BPM P-R Int : 148 ms QRS Dur : 102 ms QT Int : 396 ms P-R-T Axes : 047 000 129 degrees QTc Int : 462 ms Normal sinus rhythm ST & T wave abnormality, consider lateral ischemia Prolonged QT Abnormal ECG Confirmed by SHAVONNE LUNDBERG, LISA ([id number]), publishing editor LANDRY YARBROUGH ([id number]) on 07/05/2018 1:41:19 PM Referred By: BENJAMIN Confirmed By:LISA MARVIN MD
--- NOTE | 2018-07-03 12:59 | CT_ITS ---
STUDY: CT CERVICAL SPINE WITHOUT CONTRAST REASON FOR EXAM: Male, 68 years old. Injury. Fall. RADIATION DOSAGE (If Supplied By Facility): CTDIvol = ( 27.25 ) mGy, DLP = ( 549.48 ) mGycm TECHNIQUE: High resolution transaxial imaging was performed without contrast material. Sagittal and coronal images were reconstructed. Individualized dose optimization techniques were used for this CT. COMPARISON: April 23, 2018 FINDINGS: Normal craniovertebral junction. There are degenerative changes of the anterior atlantoaxial articulation. Normal odontoid process. There is straightening of the normal cervical lordosis. There is no acute fracture seen. Normal vertebral bodies and posterior osseous elements. C2-3: Normal endplates. Normal disc height and morphology. Normal central canal and intervertebral neuroforamina. C3-4: Mild spurring. Facet spurring on the left. Normal central canal and intervertebral neuroforamina. C4-5: Disc space narrowing with endplate changes. Disc bulge and spurring flattening the thecal sac. Facet and uncovertebral spurring with right greater than left foraminal narrowing and encroachment. Moderate canal stenosis. C5-6: Disc bulge with mild spurring. Facet spurring on the right more than the left. Uncovertebral spurring with right foraminal narrowing. No canal stenosis. C6-7: Disc bulge. Facet spurring on the right more than the left. No canal stenosis or foraminal encroachment. C7-T1: Normal endplates. Normal disc height and morphology. Normal central canal and intervertebral neuroforamina. Normal visualized soft tissue structures. There are atherosclerotic calcifications of the carotid arteries with moderate narrowing suggested at the right carotid bifurcation. CT/Spine Cervical without Contras IMPRESSION: Multilevel degenerative changes, as described above. Electronically Signed: Willie Moreno MD at 14:08 EST , Service support ,
--- NOTE | 2018-07-03 12:59 | CT_ITS ---
STUDY: CT BRAIN WITHOUT CONTRAST REASON FOR EXAM: Male, 68 years old. Injury. Fall yesterday. RADIATION DOSAGE (If Supplied By Facility): CTDIvol = ( 44.99 ) mGy, DLP = ( 779.24 ) mGycm TECHNIQUE: Transaxial CT imaging of the brain was performed without administration of intravenous contrast material. Individualized dose optimization techniques were used for this CT. COMPARISON: May 11, 2018. FINDINGS: Normal soft tissue structures. Normal calvarium. There is mild cerebral atrophy with widening of the extra-axial spaces and ventricular dilatation. Normal white matter tracts of the cerebral hemispheres. There is encephalomalacia involving the left posterior parietal lobe suggesting remote infarct. Normal basal ganglia and thalami. Normal brainstem. Normal cerebellum. There is no intracranial hemorrhage. There are no findings of an acute ischemic infarction. Normal visualized paranasal sinuses. 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 There is no interval change. Electronically Signed: Dawit Robins DO at 13:56 EST Tel [phone], Service support ,
[2018-07-03] MEDS: Morphine 4 MG/ML Syringe IV (13:01)
[2018-07-03] MEDS: MethylPREDNISolone 125 MG/2 ML Vial IV (13:01)
[2018-07-03] MEDS: Ipratropium/Albuterol Sulfate 3 ML AMPUL.NEB INHALATION (13:01)
[2018-07-03 13:08] VITALS: O2SAT 91
[2018-07-03 13:10] VITALS: PULSE 83; RESP 16
[2018-07-03 13:13] LABS: Absolute Lymphocyte Count 1.58 X10^3/ul (0.83-4.51); Basophil# 0.02 X10^3/uL; Basophil% 0.3 % (0-1); Eosinophil# 0.15 X10^3/uL; Eosinophils% 2.3 % (0-5); Hemoglobin 12.6 g/dl (13.0-16.5); Lymphocyte # 1.58 X10^3/ul (4.0); Lymphocyte % 24.2 % (19-41); Mean Corp Hgb Conc 32.3 g/gl (32-36); Mean Corpuscular Volume 92.9 fL (80-94); Mean Platelet Vol. 9.4 fl (6.2-12.0); Monocyte# 0.75 X10^3/uL; Monocyte% 11.5 % (0-10); Neutrophil # 4.01 X10^3/uL (2.7-7.7); Neutrophil % 61.5 % (47-70); Platelet Count 280 K/mm3 (150-450); RBC Distribution Width CV 14.5 % (11.6-14.6); RBC Distribution Width SD 48.7 fl (35.1-43.9); White Blood Count 6.5 K/mm3 (4.4-11.0)
[2018-07-03 13:14] LABS: POSITIVE COUNT NO; POSITIVE DIFFERENTIAL NO; POSITIVE MORPHOLOGY NO
[2018-07-03 13:25] LABS: Anion Gap 10 (5-15); BUN 19 mg/dL (7-18); BUN/Creat Ratio 11.2 RATIO (10-20); Calcium,Total 8.8 mg/dL (8.5-10.1); Chloride 104 mmol/L (98-107); EST Glomerular Filtration Rate 43 mL/min (>60); Est Glom Filt Rate - Afr Amer 52 mL/min (>60); Estimated Creatinine Clearance 42.17 ml/min; Glucose 158 mg/dL (74-106); Potassium 3.9 mmol/L (3.5-5.1); Sodium Level 140 mmol/L (136-145)
[2018-07-03 13:52] VITALS: BP 119/59; PULSE 74; RESP 20; O2SAT 97
[2018-07-03 14:15] VITALS: BP 107/82; PULSE 76; RESP 18; O2SAT 96
--- NOTE | 2018-07-03 14:33 | ED.DCSUM_ITS ---
- ER Visit Summary Date of Service: 07/03/18 Chief Complaint: Syncope History of Present Illness: The patient is a [address] Martinez C1 Dr. Inman. He reports that yesterday he was standing in the [place] and had a coughing episode. States the next thing he knew he woke up on the floor. Reports that he did hit his head. He has a headache to 6 out of 10 severity. He has neck pain Zeta 10 severity. He reports he has chronic back pain that is unchanged. He denies any shoulder, wrist, or hip pain. Patient also reports that he is short of breath and that that began yesterday. Is gradually gotten worse. Severe at worst moderate currently. Is worsened by exertion. Is taking albuterol with minimal relief. Reports he had a nonproductive cough for the past week. He denies any fever or chills. Patient also reports that he has lower chest pain on the right that is sharp. States that it is been constant since he fell out of bed and fractured my ribs approximately 2 weeks ago. Reports pain is 10-10 at worst and 6 out of 10 currently. Physical Examination: Vitals: Stable. Afebrile. General: Well-nourished and well-developed. Head: Normocephalic atraumatic. Neck: Supple, no lymphadenopathy. No JVD. Moderate diffuse tenderness palpation over the entire C-spine. No point tenderness. Full range of motion without any difficulty.. Cardiovascular: Regular rate and rhythm. No murmurs. Respiratory: No respiratory distress. Clear to auscultation bilaterally. Severe tenderness palpation over the lower ribs on the right. Abdominal: Soft, nontender, nondistended, normal bowel sounds. No guarding, rebound, or peritoneal signs. Back: Nontender. Extremities: Nontender, no edema. Skin: Normal color, no rash. Neurologic: Alert and oriented ?3. Cranial nerves II through XII are intact. Normal strength and sensation. Psych: Normal affect. Test Results: EKG is sinus at 82 with T wave inversions in leads unchanged from last month. Troponin is negative. Chem-7 is more for BUN of 19, creatinine 1.7, glucose 158. Patient does have renal insufficiency. However, this is the highest his creatinine is been since January. CBC is marked for an H&H of 12.6 and 39.0 and monocytes of 12. Chest x-ray shows cardiomegaly and chronic changes. No acute disease. CT brain shows chronic changes. CT C-spine shows degenerative changes. Emergency Department Course and Treatment: An [facility] report was obtained which shows the patient had 17 prescriptions for opiates in the past year. Currently he takes 4 7.5 mg Percocet a day. He was given a dose of morphine IV here. However, I discussed them that further treatment of his pain with opiate-based medications is not in his best interest. I offered Tylenol. He reports that he cannot take Tylenol and asked for ibuprofen. I discussed his renal insufficiency with him and suggested that he not take ibuprofen any further. Patient shortness of breath was treated with an albuterol aerosol here. On repeat exam his wheezing has essentially resolved and his air movement is improved. His pulse ox is 96% on room air. He was given a dose of Solu-Medrol IV. Treatment Plan: The patient was discussed with Dr. Inman. At this time it is not felt that he needs to be admitted for this syncopal episode which seemed to have a clear inciting cause. He will be discharged instructions continue his Percocet. Follow-up with Dr. Juan De La Vega iii for further treatment of his pain. Follow-up Dr. Inman as an outpatient for the syncopal episode. Return to the emergency department for any worsening symptoms. Disposition: To home in improved and stable condition. Impression: 1. Syncope, vasovagal. 2. Concussion. 3. COPD. This note was generated with [employer] dictation software. It may contain incorrect words, spelling, and punctuation that were not noted in review of the chart prior to signing ED Disposition - Plan for ED Patient: Disposition: Home or Assisted Living Chief Complaint: Shortness of Breath Instructions: ED Fainting Unkn Cause Referrals: Juan De La Vega III, MD [Primary Care Provider] - 3-5 Days Gordy Inman MD [STAFF PHYSICIAN] - As soon as possible
[2018-07-03 14:43] VITALS: BP 106/68; PULSE 79; RESP 17; O2SAT 93
== END 2018-07-03 14:47 | disposition home or self-care (01) ==
LOC: ED 13:17
PROVIDERS: Emergency Provider Emergency Medicine; Family Provider Family Medicine; PCP Family Medicine
DX: R55 Syncope and collapse (principal); S06.0X9A Concussion with loss of consciousness of unspecified duration, initial encounter; W18.30XA Fall on same level, unspecified, initial encounter; Y93.9 Activity, unspecified; Y92.000 Kitchen of unspecified non-institutional (private) residence as the place of occurrence of the external cause; Y99.9 Unspecified external cause status; J44.9 Chronic obstructive pulmonary disease, unspecified; G89.29 Other chronic pain; M54.9 Dorsalgia, unspecified; E11.9 Type 2 diabetes mellitus without complications; I10 Essential (primary) hypertension; I25.10 Atherosclerotic heart disease of native coronary artery without angina pectoris; E78.00 Pure hypercholesterolemia, unspecified; F17.210 Nicotine dependence, cigarettes, uncomplicated; Z95.5 Presence of coronary angioplasty implant and graft; N28.9 Disorder of kidney and ureter, unspecified; I51.7 Cardiomegaly
CPT/HCPCS: 70450; 71046; 72125; 80048; 84484; 85025; 93005; 94640; 96374; 96375; 99285; A4216

== ENCOUNTER 2018-08-22 22:38 | Emergency (ER) | payer MEDICARE, MEDICAID, SELFPAY ==
[2018-08-22 22:40] VITALS: BP 142/74; PULSE 104; RESP 25; TEMP 36.7; O2SAT 96; BMI 32.8
--- NOTE | 2018-08-22 22:56 | ED.VISSUMM ---
- ER Visit Summary Date of Service: 08/22/18 Chief Complaint: [] Nausea and vomiting History of Present Illness: The patient is a 68 M who stated he started vomiting 4 days ago. He has been feeling nauseous. He has had a lot of dry heaves. He thinks he is probably vomited more than 10 times per day. He has had this in the past. He has Zofran and Phenergan at home but states he cannot keep keep any of his home meds down. He does not have oral dissolving Zofran. He also has chronic COPD he said is at its baseline. He has chronic dry cough. No significant changes. He uses albuterol 4 times a day. No sick contacts. No bad food exposures and he stated he has had no significant diarrhea. No fevers or chills. He stated that he is unsure why this happens to him. Physical Examination: [] Vital signs reviewed General: Well-nourished well-developed Head: Normocephalic atraumatic Eyes: Pupils equal round and reactive to light extraocular movements intact ENT: TMs clear no hemotympanum no trauma Neck: Nontender full range of motion Cardiovascular: Regular cardia with normal rhythm no murmurs normal S1-S2 Respiratory: No distress. Mild end expiratory wheezes throughout all lung bui chest nontender Abdomen: Soft nontender nondistended normal bowel sounds no masses Back: Nontender no CVA tenderness Extremities: Nontender active range of motion ?4 extremities no trauma Skin: Normal color no trauma Neuro alert oriented cranial nerves II through XII intact normal strength sensation reflexes Test Results: [] Emergency Department Course and Treatment: [] Patient given IV fluids, Zofran for his nausea and vomiting. Lab work obtained. Patient also given a DuoNeb breathing treatment for his expiratory wheezes Treatment Plan: [] Disposition: [] Impression: [] This note was generated with [employer] dictation software. It may contain incorrect words, spelling, and punctuation that were not noted in review of the chart prior to signing ED Disposition - Plan for ED Patient: Chief Complaint: Nausea/Vomiting Referrals: Juan De La Vega III, MD [Primary Care Provider] -
[2018-08-22] MEDS: Ipratropium/Albuterol Sulfate 3 ML AMPUL.NEB INHALATION (22:58)
[2018-08-22 22:59] VITALS: PULSE 107; RESP 23
[2018-08-22] MEDS: 0.9% Normal Saline 1,000 ML 1000 ML IV (23:01)
[2018-08-22] MEDS: Ondansetron 4 MG/2 ML Vial IV (23:01)
[2018-08-22 23:03] LABS: Absolute Lymphocyte Count 2.04 X10^3/ul (0.83-4.51); Absolute Neutrophil Count 3.7 X10^3/uL (2.0-7.7); Basophil# 0.03 X10^3/uL; Basophil% 0.5 % (0-1); Eosinophil# 0.15 X10^3/uL; Eosinophils% 2.3 % (0-5); Hematocrit 40.5 % (40-54); Hemoglobin 13.7 g/dl (13.0-16.5); Lymphocyte # 2.04 X10^3/ul (4.0); Lymphocyte % 31.2 % (19-41); Mean Corp Hgb Conc 33.8 g/gl (32-36); Mean Corpuscular Hgb 31.3 pg (27.0-32.0); Mean Corpuscular Volume 92.5 fL (80-94); Mean Platelet Vol. 9.9 fl (6.2-12.0); Monocyte# 0.61 X10^3/uL; Monocyte% 9.3 % (0-10); Neutrophil # 3.69 X10^3/uL (2.7-7.7); Neutrophil % 56.5 % (47-70); POSITIVE COUNT NO; POSITIVE DIFFERENTIAL NO; POSITIVE MORPHOLOGY NO; Platelet Count 216 K/mm3 (150-450); RBC Distribution Width CV 14.4 % (11.6-14.6); RBC Distribution Width SD 47.3 fl (35.1-43.9); Red Blood Count 4.38 M/mm3 (4.6-6.2); White Blood Count 6.5 K/mm3 (4.4-11.0)
[2018-08-22 23:12] LABS: ALB/GLOB Ratio 0.9 RATIO (0.9-2.4); AST(SGOT) 21 U/L (15-37); Alanine Aminotransfer ALT/SGPT 43 U/L (16-61); Albumin, Serum 3.3 g/dL (3.2-5.0); Alkaline Phosphatase 99 U/L (45-117); Anion Gap 11 (5-15); BUN 27 mg/dL (7-18); BUN/Creat Ratio 20.9 RATIO (10-20); Calcium,Total 8.4 mg/dL (8.5-10.1); Chloride 111 mmol/L (98-107); Creatinine, Serum 1.29 mg/dL (0.70-1.30); EST Glomerular Filtration Rate 59 mL/min (>60); Est Glom Filt Rate - Afr Amer 71 mL/min (>60); Estimated Creatinine Clearance 50.14 ml/min; Globulin 3.7 g/dL (2.2-4.2); Glucose 150 mg/dL (74-106); Lipase 170 U/L (73-393); Potassium 3.8 mmol/L (3.5-5.1); Sodium Level 144 mmol/L (136-145)
[2018-08-23 00:25] VITALS: BP 123/73; PULSE 97; RESP 20; O2SAT 94
--- NOTE | 2018-08-23 00:28 | ED.DEP ---
ED Disposition - Plan for ED Patient: Disposition: Home or Assisted Living Chief Complaint: Nausea/Vomiting Instructions: ED Nausea Vomiting Prescriptions: Ondansetron [Zofran Odt] 4 mg PO Q8H PRN PRN #10 tab PRN Reason: Nausea Referrals: Juan De La Vega III, MD [Primary Care Provider] -
[2018-08-23] MEDS: Ketorolac 30 MG/ML Syringe IV (00:29)
== END 2018-08-23 00:37 | disposition home or self-care (01) ==
PROVIDERS: Emergency Provider Emergency Medicine; Family Provider Family Medicine; PCP Family Medicine
DX: R11.2 Nausea with vomiting, unspecified (principal); J44.9 Chronic obstructive pulmonary disease, unspecified; E66.9 Obesity, unspecified; I25.10 Atherosclerotic heart disease of native coronary artery without angina pectoris; I10 Essential (primary) hypertension; E11.9 Type 2 diabetes mellitus without complications; Z72.0 Tobacco use
CPT/HCPCS: 80053; 83690; 85025; 94640; 96361; 96374; 96375; 99285; J7030; A4216; J2405

== ENCOUNTER 2018-09-01 05:13 | Observation (INO) | payer MEDICARE, MEDICAID, SELFPAY ==
[2018-09-01] VITALS (15 sets, daily range): BP systolic 97–132; BP diastolic 40–83; PULSE 71–95; RESP 16–20; TEMP 36.5–37.3; O2SAT 2–97; BMI 31.3; BMI 34.4; BMI 34.5
--- NOTE | 2018-09-01 06:29 | EKG12_ITS ---
Test Reason : SOB Blood Pressure : / mmHG Vent. Rate : 072 BPM Atrial Rate : 072 BPM P-R Int : 148 ms QRS Dur : 106 ms QT Int : 450 ms P-R-T Axes : 064 002 129 degrees QTc Int : 492 ms Normal sinus rhythm Incomplete left bundle branch block T wave abnormality, consider anterolateral ischemia Prolonged QT Abnormal ECG Confirmed by SHAVONNE LUNDBERG, LISA ([id number]), graphic editor LANDRY YARBROUGH ([id number]) on 09/06/2018 9:49:33 AM Referred By: AMEENA Confirmed By:LISA MARVIN MD
[2018-09-01] MEDS: Albuterol 2.5 MG/3 ML VIAL.NEB. INHALATION (06:50)
[2018-09-01] MEDS: Ipratropium/Albuterol Sulfate 3 ML AMPUL.NEB INHALATION ×3 (06:50→14:52)
[2018-09-01 07:03] LABS: Absolute Lymphocyte Count 1.76 X10^3/ul (0.83-4.51); Absolute Neutrophil Count 3.3 X10^3/uL (2.0-7.7); Basophil# 0.03 X10^3/uL; Basophil% 0.5 % (0-1); Eosinophil# 0.26 X10^3/uL; Eosinophils% 4.3 % (0-5); Hematocrit 38.1 % (40-54); Hemoglobin 12.3 g/dl (13.0-16.5); Lymphocyte # 1.76 X10^3/ul (4.0); Lymphocyte % 29.1 % (19-41); Mean Corp Hgb Conc 32.3 g/gl (32-36); Mean Corpuscular Hgb 30.5 pg (27.0-32.0); Mean Corpuscular Volume 94.5 fL (80-94); Mean Platelet Vol. 9.8 fl (6.2-12.0); Monocyte% 11.6 % (0-10); Neutrophil # 3.29 X10^3/uL (2.7-7.7); Neutrophil % 54.3 % (47-70); Platelet Count 191 K/mm3 (150-450); RBC Distribution Width CV 14.7 % (11.6-14.6); RBC Distribution Width SD 50.2 fl (35.1-43.9); Red Blood Count 4.03 M/mm3 (4.6-6.2); White Blood Count 6.1 K/mm3 (4.4-11.0)
[2018-09-01 07:04] LABS: Differential Indicated SCAN CRITERIA MET; POSITIVE COUNT NO; POSITIVE DIFFERENTIAL NO; POSITIVE MORPHOLOGY YES
[2018-09-01] MEDS: MethylPREDNISolone 125 MG/2 ML Vial IV (07:05)
[2018-09-01 07:14] LABS: Anion Gap 7 (5-15); BUN 39 mg/dL (7-18); BUN/Creat Ratio 19.7 RATIO (10-20); Calcium,Total 8.6 mg/dL (8.5-10.1); Chloride 104 mmol/L (98-107); Creatinine, Serum 1.98 mg/dL (0.70-1.30); EST Glomerular Filtration Rate 36 mL/min (>60); Est Glom Filt Rate - Afr Amer 44 mL/min (>60); Glucose 97 mg/dL (74-106); Potassium 4.1 mmol/L (3.5-5.1); Sodium Level 139 mmol/L (136-145)
[2018-09-01 07:16] LABS: Allen Test POS; Base Excess 2 mmol/L (-2 to +2); Bicarbonate 27.3 mmol/L (22-26); Blood Gas Specimen Type ART; O2 Delivery Device Nasal Can; PO2 67 mmHG (75-100); SITE L Radial; SO2 92 % (95-99); Time Given 655; Total Carbon Dioxide 29 mmol/L; pCO2 48.2 mmHg (35-45); pH 7.36 (7.35-7.45)
--- NOTE | 2018-09-01 07:34 | ED.VISSUMM ---
- ER Visit Summary Date of Service: 09/01/18 Chief Complaint: Fall and shortness of breath History of Present Illness: The patient is a 68 M who essentially presents with 2 separate complaints. He fell on the ice 4 days ago. He slipped and fell onto his left hip. Since that time he has been having pain in his lower back radiating into his left hip and all the way down to his ankle. He is able to ambulate although this is becoming increasingly limited and painful. He also notes that over the last couple of days he has developed shortness of breath. He does complain of some congestion. He complains of a nonproductive cough. Prior to his fall he was having some nausea and vomiting several days ago which she was seen in the emergency department for. This has since resolved. He denies any abdominal pain. He denies chest pain. No fevers that he is aware of although he has not checked temperature at home. When he fell on the ice he denies any head injury or loss of consciousness no headache. In regards to shortness of breath he is concerned he may be in congestive heart failure as he is also developed some lower extremity edema. He does have a history of COPD but is not on home oxygen. Physical Examination: Temperature 97.8 initial pulse ox was 85% on room air he was placed on 2 L nasal cannula with improvement in 95%. Blood pressure heart rate normal. Respiratory rate 20 Patient is in no distress but he is slightly tachypneic he has decreased air exchange and diffuse inspiratory and expiratory wheezing Heart is regular rate and rhythm Abdomen is soft nontender nondistended Patient has been mild midline lumbar left paraspinal tenderness he has pain with range of motion of the left hip he has 2+ symmetric lower extremity pitting edema Alert and oriented with a GCS of 15 no focal or lateralizing neurological deficit Test Results: EKG shows sinus rhythm at a rate of 72 with no acute ischemic changes. ABG shows pH 7.36, PCO2 48, PO2 67. Labs notable for hemoglobin 12.3, BUN 39, creatinine 1.98. Troponin is negative. BNP pending at the time of this dictation. There is delay due to maintenance on the machine. Chest x-ray on my review shows no acute process. Left hip x-rays and lumbar x-rays as reviewed by me show no acute fractures. Emergency Department Course and Treatment: Patient was symptomatically treated here with albuterol and Atrovent aerosols. He was given IV Solu-Medrol. He was given morphine for his back and hip pain. Given his report of dry cough congestion and significant wheezing I believe his hypoxia is most likely related to acute COPD exacerbation. He was also given doxycycline for COPD exacerbation. Patient to be discussed with the hospitalist and admitted. Treatment Plan: [] Disposition: Admit Impression: Acute hypoxic respiratory failure COPD exacerbation Mechanical fall Left hip contusion Sciatica This note was generated with [employer] dictation software. It may contain incorrect words, spelling, and punctuation that were not noted in review of the chart prior to signing ED Disposition - Plan for ED Patient: Referrals: Juan De La Vega III, MD [Primary Care Provider] -
--- NOTE | 2018-09-01 07:36 | RAD_ITS ---
STUDY: X-RAY CHEST REASON FOR EXAM: Male, 68 years old. Shortness of breath. COPD. TECHNIQUE: Single AP portable view of the chest. COMPARISON: Comparison is made with prior study dated July 03, 2018. FINDINGS: The lungs are clear and expanded. There is no demonstrated pleural abnormality. Sternal cerclage wires and vascular clips are present from a prior sternotomy and coronary artery bypass graft procedure (CABG). A left-sided dual-chamber pacemaker is seen. Normal mediastinum and serjio. Normal visualized pulmonary arteries. There is atherosclerotic tortuosity of the aortic arch and descending thoracic aorta. Normal visualized thoracic spine. Normal visualized ribs, clavicles, and shoulders. There is no demonstrated abnormality of the visualized soft tissue structures of the upper abdomen. RAD/Chest 1 View (Portable) IMPRESSION: No acute abnormality is seen. Electronically Signed: Arcenio Leary MD at 8:31 EST , Service support ,
--- NOTE | 2018-09-01 07:41 | RAD_ITS ---
STUDY: X-RAY - PELVIS AND LEFT HIP REASON FOR EXAM: Pain status post fall. TECHNIQUE: 2 views of the pelvis and hip. COMPARISON: None. FINDINGS: There is vascular calcification. Normal bilateral iliac wings, sacroiliac joints and visualized sacrum. Normal bilateral superior and inferior pubic rami. Normal pubic symphysis. There is mild enthesopathy of the bilateral ischial tuberosities. Normal visualized femoral head. Normal acetabulum. Normal hip joint. RAD/HIP, UNI W/ Pelvis 2-3 Views IMPRESSION: Mild enthesopathy. No demonstrated fracture. Electronically Signed: Dany Hayes MD at 8:37 EST Tel , Service support ,
--- NOTE | 2018-09-01 07:49 | RAD_ITS ---
STUDY: X-RAY - LUMBAR SPINE REASON FOR EXAM: Male, 68 years old. Pain following a fall. TECHNIQUE: 3 view(s) of the lumbar spine were obtained. COMPARISON: None FINDINGS: Normal lumbar lordosis. There is no substantial scoliosis. Minimal retrolisthesis of L2 on L3 and L3 on L4 most likely secondary to facet joint osteoarthritis. There is multilevel endplate spondylosis of the lumbar vertebrae. There is multi-level degenerative disc disease with multi-level disc space narrowing. There is atherosclerotic calcification of the abdominal aorta without a demonstrated aneurysm. RAD/Lumbar Spine 2 or 3 Views IMPRESSION: Degenerative changes of the spine, as detailed above. Electronically Signed: Arcenio Leary MD at 8:30 EST , Service support ,
[2018-09-01] MEDS: Morphine 4 MG/ML Syringe IV (08:09)
[2018-09-01] MEDS: Doxycycline 100 MG CAPSULE PO (08:09)
[2018-09-01] MEDS: Ondansetron 4 MG/2 ML Vial IV (08:10)
[2018-09-01] MEDS: oxyCODONE 5 MG Tablet PO (16:20)
[2018-09-01] MEDS: Furosemide 40 MG/4 ML Vial IV (16:21)
--- NOTE | 2018-09-01 16:57 | HP.PCM_ITS ---
Problem List (1) COPD (chronic obstructive pulmonary disease) Status: Chronic Qualifiers: COPD type: COPD with acute exacerbation Qualified Code(s): J44.1 - Chronic obstructive pulmonary disease with (acute) exacerbation (2) Obesity (BMI 30.0-34.9) Status: Chronic (3) Nicotine dependence Status: Chronic (4) Gout Status: Chronic (5) Degenerative cervical disc Status: Chronic (6) Chronic back pain Status: Chronic Qualifiers: (7) Chronic systolic (congestive) heart failure Status: Chronic (8) Stented coronary artery Status: Chronic Comment: has had 7 stents as of 06/15/17 (9) Benign essential hypertension Status: Chronic (10) Gastroesophageal reflux disease Status: Chronic Qualifiers: (11) Hyperlipidemia Status: Chronic Qualifiers: (12) Type 2 diabetes mellitus Status: Chronic Qualifiers: History of Present Illness Date of Admission: 09/01/18 Chief Complaint: Shortness of breath and left hip pain The patient is a 68 year old M with PMH as below who presents after a fall 4 days ago on ice. He states that he landed on his left side and has since had progressively worsening pain in his left hip and in his low back. He also states that he has been more short of breath over the last couple of weeks but has not gone to his primary care physician. He has noticed that he is wheezing more and also that his swelling has worsened in his lower extremities. In the ER he was hypoxic at 86% necessitating oxygen therapy. He was given a dose of IV steroids. Chest x-ray did not show any significant signs of vascular congestion to indicate a heart failure exacerbation. X-rays of the left hip and low back were negative for fracture. He does have chronic pain for which she takes Percocet at home. Past Medical History Past Medical History (Chronic Problems): Chronic Problems (Last Updated 05/24/18 @ 14:48 by Kana Khan MD) COPD (chronic obstructive pulmonary disease) (Chronic) Obesity (BMI 30.0-34.9) (Chronic) Nicotine dependence (Chronic) Gout (Chronic) Degenerative cervical disc (Chronic) Claudication (Chronic) Chronic back pain (Chronic) Presence of automatic implantable cardioverter-defibrillator (Chronic) Chronic renal failure, stage 3 (moderate) (Chronic) Chronic systolic (congestive) heart failure (Chronic) Stented coronary artery (Chronic ~12/2016) has had 7 stents as of 06/15/17 Ischemic cardiomyopathy (Chronic) 25% ejection fraction in November 2016 V-tach (Chronic) has an AICD Benign essential hypertension (Chronic) Gastroesophageal reflux disease (Chronic) Hyperlipidemia (Chronic) Type 2 diabetes mellitus (Chronic) Morbid obesity (Chronic) CAD (coronary artery disease) (Chronic) Medical History: Medical History (Last Updated 05/24/18 @ 14:48 by Kana Khan MD) Nicotine dependence (Chronic) F17.200 Gout (Chronic) M10.9 Degenerative cervical disc (Chronic) M50.30 Claudication (Chronic) I73.9 Chronic back pain (Chronic) M54.9, G89.29 Chronic renal failure, stage 3 (moderate) (Chronic) N18.3 Chronic systolic (congestive) heart failure (Chronic) I50.22 Ischemic cardiomyopathy (Chronic) I25.5 25% ejection fraction in November 2016 V-tach (Chronic) I47.2 has an AICD Benign essential hypertension (Chronic) I10 Gastroesophageal reflux disease (Chronic) K21.9 Hyperlipidemia (Chronic) E78.5 Type 2 diabetes mellitus (Chronic) E11.9 Morbid obesity (Chronic) E66.01 CAD (coronary artery disease) (Chronic) I25.10 Acute non-ST segment elevation myocardial infarction (Resolved) I21.4 Colitis (Inactive) Tinea manus (Inactive) B35.2 Tubular adenoma of colon (Inactive) D12.6 Allergies chlorpromazine HCl [From Thorazine] Allergy (Severe, Verified 08/22/18 22:44) Hives PER PATIENT tramadol HCl [From Ultram] Allergy (Severe, Verified 08/22/18 22:44) Hives PER PATIENT codeine Allergy (Intermediate, Verified 08/22/18 22:44) Hives atorvastatin Adverse Reaction (Intermediate, Verified 08/22/18 22:44) Other LEG PAIN/CRAMPS naproxen Adverse Reaction (Verified 08/22/18 22:44) Upset Stomach promethazine [From Phenergan] Adverse Reaction (Verified 08/22/18 22:44) Other CONFUSION Home Medications: Ambulatory Orders Medication Instructions Recorded Nitroglycerin [Nitrostat] 0.4 mg SUBLINGUAL Q5M PRN 09/17/15 Isosorbide Mononitrate [Imdur] 30 mg PO DAILY 02/18/17 Albuterol Aerosols [Ventolin 2.5 mg INHALATION Q4H PRN PRN 02/23/17 Aerosols] albuterol sulfate HFA 90 2 puff INHALATION Q4H PRN g 07/31/17 mcg/actuation aerosol inhaler fenofibrate nanocrystallized 145 145 mg PO DAILY 07/31/17 mg tablet Pantoprazole Sodium [Protonix] 40 mg PO DAILY 11/15/17 umeclidinium 62.5 mcg-vilanterol 1 inh INHALATION DAILY #60 ea MDD 02/05/18 25 mcg/actuation powdr for copd inhalation Allopurinol 300 mg PO DAILY 05/20/18 Metoprolol Succinate [Toprol Xl] 100 mg PO DAILY 05/20/18 Nicotine [Nicotine Patch] 21 mg TP DAILY 05/20/18 Lisinopril [Zestril] 2.5 mg PO DAILY 05/21/18 Rosuvastatin Calcium [Crestor] 40 mg PO DAILY 06/16/18 Spironolactone 25 mg PO DAILY 06/16/18 Clopidogrel Bisulfate [Plavix] 75 mg PO DAILY 09/01/18 Furosemide 40 mg PO DAILY 09/01/18 Surgical History: Surgical History (Last Reviewed 12/15/17 @ 10:18 by Ramonita Alcantar) Presence of automatic implantable cardioverter-defibrillator (Resolved) Z95.810 H/O coronary artery bypass surgery (Resolved) Onset Date: ~2008 Z95.1 HUMPHREY-LAD, SVG-D1, SVG-OM Stented coronary artery (Chronic) Onset Date: ~12/2016 has had 7 stents as of 06/15/17 Hx of hernia repair (Inactive) Z98.890, Z87.19 Previous back surgery (Inactive) Z98.890 Status post left heart catheterization (Inactive) Onset Date: ~12/2016 Z98.890 Surgical History: angioplasty - stents x10, coronary bypass surgery, - - AICD placement, back surgery x 2, hernia repair Smoking Status: Current every day smoker Tobacco Use: Cigarettes Alcohol: None Drugs: None - *Family History Paternal Family History: Family History (Last Reviewed 12/15/17 @ 10:18 by Ramonita Alcantar) Brother CAD (coronary artery disease) Myocardial infarction Sudden cardiac Mother Cancer Hypertension Father Cancer COPD (chronic obstructive pulmonary disease) History Items: Cancer, Heart Disease Maternal Family History: Family History (Last Reviewed 12/15/17 @ 10:18 by Ramonita Alcantar) Brother CAD (coronary artery disease) Myocardial infarction Sudden cardiac Mother Cancer Hypertension Father Cancer COPD (chronic obstructive pulmonary disease) History Items: Cancer Review of Systems Constitutional: Denies: Chills, Fever, Weight Change HEENT: Denies: Head Aches, Sinus Congestion, Sinus Drainage Cardiovascular: Reports: Edema. Denies: Chest Pain, Orthopnea, Palpitations Respiratory: Reports: Shortness of Breath. Denies: Cough, Shortness of breath at rest, Sputum production Gastrointestinal: Denies: Abdominal Pain, Nausea, Vomiting Genitourinary: Denies: Dysuria Musculoskeletal: Reports: Back Pain, Leg Pain. Denies: Joint Pain, Joint Tenderness Skin: Denies: Rash, Wounds Neurological: Denies: Numbness, Tingling, Focal weakness Psychiatric: Denies: Anxiety, Depression Hematologic/ Lymphatic: Denies: Easy Bruising, Easy Bleeding VTE Information - Inpt Only VTE Present on Admission: No - Physical Exam General: Alert, Oriented x3, Cooperative, No apparent distress HEENT: Atraumatic, PERRLA, EOMI, Normocephalic Oral: Moist Mucosa Neck: Supple, No JVD, Trachea Midline Lungs: Normal air movement, No rhonchi, No rales, Wheezes Cardiovascular: Regular rate, Regular Rhythm, Normal S1, Normal S2, No murmurs Abdomen: Soft, Non Tender, Non-Distended, No Hepato-splenomegaly Extremities: Capillary Refill Less than 3 Seconds, Edema - Trace Skin: No rashes, No breakdown, - - Ecchymosis of her left hip Musculoskeletal: Tenderness - Palpation of left hip Neurological: Neuro grossly intact, Sensory exam intact to light touch and pain Psych/Mental Status: Normal Affect, Appropriate Vital Signs Temp Pulse Resp BP Pulse Ox 98.5 F 80 18 118/79 92 09/01/18 15:57 09/01/18 15:57 09/01/18 15:57 09/01/18 15:57 09/01/18 15:57 Oxygen Flow Rate (L/min) 95 Oxygen Delivery Method Room Air Weight: 220 lb 3.869 oz Body Mass Index (BMI) 34.4 Intake and Output for Last 24 Hours 08/30/18 08/31/18 09/01/18 23:59 23:59 23:59 Intake Total 240 / 240 Balance 240 / 240 Laboratory Tests Past 24 Hrs 09/01/18 09/01/18 09/01/18 06:45 06:45 06:45 WBC 6.1 RBC 4.03 L Hgb 12.3 L Hct 38.1 L MCV 94.5 H MCH 30.5 MCHC 32.3 RDW 14.7 H RDW Differential 50.2 H Plt Count 191 MPV 9.8 Immature Gran % (Auto) 0.200 Neut % (Auto) 54.3 Lymph % (Auto) 29.1 [place] % (Auto) 11.6 H Eos % (Auto) 4.3 Baso % (Auto) 0.5 Absolute Neuts (auto) 3.3 Absolute Lymphs (auto) 1.76 Total Counted Not Reportable Specimen Type Sample Site pH Bicarbonate Actual POC Total CO2 Base Excess O2 Saturation ABG pCO2 ABG pO2 Greg Test O2 Delivery Device Liter Flow Blood Gas Notified Whom Blood Gas Notified Time Sodium 139 Potassium 4.1 Chloride 104 Carbon Dioxide 28.0 Anion Gap 7 BUN 39 H Creatinine 1.98 H Estim Creat Clear Calc 36.20 Est GFR (MDRD) Af Amer 44 L Est GFR (MDRD) Non-Af 36 L BUN/Creatinine Ratio 19.7 Glucose 97 Calcium 8.6 Troponin I < 0.015 B-Natriuretic Peptide 279.0 H 09/01/18 07:08 WBC RBC Hgb Hct MCV MCH MCHC RDW RDW Differential Plt Count MPV Immature Gran % (Auto) Neut % (Auto) Lymph % (Auto) [place] % (Auto) Eos % (Auto) Baso % (Auto) Absolute Neuts (auto) Absolute Lymphs (auto) Total Counted Specimen Type ART Sample Site L Radial pH 7.36 Bicarbonate Actual 27.3 H POC Total CO2 29 Base Excess 2 O2 Saturation 92 L ABG pCO2 48.2 H ABG pO2 67 L Greg Test POS O2 Delivery Device Nasal Can Liter Flow 3.0 Blood Gas Notified Whom ED MD Blood Gas Notified Time 655 Sodium Potassium Chloride Carbon Dioxide Anion Gap BUN Creatinine Estim Creat Clear Calc Est GFR (MDRD) Af Amer Est GFR (MDRD) Non-Af BUN/Creatinine Ratio Glucose Calcium Troponin I B-Natriuretic Peptide Assessment/Plan All Active Problems (Last Updated 05/24/18 @ 14:48 by Kana Khan MD) Presence of automatic implantable cardioverter-defibrillator (Resolved) H/O coronary artery bypass surgery (Resolved ~2008) Abdominal pain (Resolved) Acute non-ST segment elevation myocardial infarction (Resolved) NSTEMI (non-ST elevated myocardial infarction) (Resolved) Non-STEMI (non-ST elevated myocardial infarction) (Resolved) 1. Mechanical fall with contusion of left hip/chronic back pain -X-ray of hip and low back were negative for fracture -He does have a contusion on his left hip that I explained to him will get worse before it gets better -We will continue his pain regimen here in the hospital and plan for him to go home without any changes to his narcotic regimen 2. Acute hypoxic respiratory failure secondary to COPD exacerbation/acute on chronic systolic CHF/HLD/HTN/coronary artery disease status post CABG and stents x7/CKD 3 -His BNP is elevated more than it usually is which could be secondary to his renal dysfunction -We will continue with IV Solu-Medrol and breathing treatments for his COPD -He is on home Lasix will transition to IV 40 mg twice daily -Continue with Aldactone, Crestor, Imdur, Plavix, metoprolol 3. Gout -Stable -Continue with allopurinol 4. GERD -Stable -Continue with Protonix DVT: SCDs Code Visit Inpatient E&M: 70882 Init Hosp L3
[2018-09-01] MEDS: 0.9% NaCl Peripheral Flush Adult/Peds IV (22:43)
[2018-09-02] VITALS (8 sets, daily range): BP systolic 91–128; BP diastolic 57–63; PULSE 76–93; RESP 16–20; TEMP 36.7–37.1; O2SAT 93–95
[2018-09-02] MEDS: oxyCODONE 5 MG Tablet PO ×2 (03:58→09:59)
[2018-09-02] MEDS: 0.9% NaCl Peripheral Flush Adult/Peds IV ×3 (05:12→09:56)
[2018-09-02 07:05] LABS: Anion Gap 10 (5-15); BUN 34 mg/dL (7-18); BUN/Creat Ratio 24.1 RATIO (10-20); Calcium,Total 8.6 mg/dL (8.5-10.1); Chloride 106 mmol/L (98-107); Creatinine, Serum 1.41 mg/dL (0.70-1.30); EST Glomerular Filtration Rate 53 mL/min (>60); Est Glom Filt Rate - Afr Amer 64 mL/min (>60); Estimated Creatinine Clearance 47.53 ml/min; Glucose 183 mg/dL (74-106); Potassium 4.7 mmol/L (3.5-5.1); Sodium Level 139 mmol/L (136-145)
[2018-09-02] MEDS: Spironolactone 25 MG Tablet PO (09:56)
[2018-09-02] MEDS: Clopidogrel Bisulfate 75 MG Tablet PO (09:56)
[2018-09-02] MEDS: Metoprolol(XL)Succ 100 MG Tablet PO (09:56)
[2018-09-02] MEDS: Fenofibrate 145 MG Tablet PO (09:56)
[2018-09-02] MEDS: Allopurinol 300 MG Tablet PO (09:56)
[2018-09-02] MEDS: Lisinopril 2.5 MG Tablet PO (09:56)
[2018-09-02] MEDS: Pantoprazole Sodium 40 MG Tablet PO (09:56)
[2018-09-02] MEDS: Isosorbide Mononitrate 30 MG Tablet PO (09:56)
[2018-09-02] MEDS: Rosuvastatin 20 MG Tablet 40 MG PO (09:57)
[2018-09-02] MEDS: Furosemide 40 MG/4 ML Vial IV (09:57)
[2018-09-02] MEDS: Ipratropium/Albuterol Sulfate 3 ML AMPUL.NEB INHALATION (10:47)
--- NOTE | 2018-09-02 10:52 | DCINST_ITS ---
You will use the following diet at home:: Calorie/Carbohydrate Controlled (specify 1200, 1400, etc), Cardiac Your food should be the consistency of: Regular Your liquids should be the consistency of: Regular/Thin Discharge Activity: Return to Normal Activity Call your doctor if you observe: Fever of 101 or Higher, Shortness of breath, Dizziness, Fainting spells, Chest pain, Prolonged hiccoughing Allergies/Adverse Reactions: Allergies chlorpromazine HCl [From Thorazine] Allergy (Severe, Verified 08/22/18 22:44) Hives PER PATIENT tramadol HCl [From Ultram] Allergy (Severe, Verified 08/22/18 22:44) Hives PER PATIENT codeine Allergy (Intermediate, Verified 08/22/18 22:44) Hives atorvastatin Adverse Reaction (Intermediate, Verified 08/22/18 22:44) Other LEG PAIN/CRAMPS naproxen Adverse Reaction (Verified 08/22/18 22:44) Upset Stomach promethazine [From Phenergan] Adverse Reaction (Verified 08/22/18 22:44) Other CONFUSION Medications to take at Discharge Nitroglycerin [Nitrostat] 0.4 mg SUBLINGUAL Q5M PRN 09/17/15 Isosorbide Mononitrate [Imdur] 30 mg PO DAILY 02/18/17 Albuterol Aerosols [Ventolin Aerosols] 2.5 mg INHALATION Q4H PRN PRN 02/23/17 albuterol sulfate HFA 90 mcg/actuation aerosol inhaler 2 puff INHALATION Q4H PRN g 07/31/17 fenofibrate nanocrystallized 145 mg tablet 145 mg PO DAILY 07/31/17 Pantoprazole Sodium [Protonix] 40 mg PO DAILY 11/15/17 umeclidinium 62.5 mcg-vilanterol 25 mcg/actuation powdr for inhalation 1 inh INHALATION DAILY #60 ea MDD copd 02/05/18 Allopurinol 300 mg PO DAILY 05/20/18 Metoprolol Succinate [Toprol Xl] 100 mg PO DAILY 05/20/18 Nicotine [Nicotine Patch] 21 mg TP DAILY 05/20/18 Lisinopril [Zestril] 2.5 mg PO DAILY 05/21/18 Rosuvastatin Calcium [Crestor] 40 mg PO DAILY 06/16/18 Spironolactone 25 mg PO DAILY 06/16/18 Clopidogrel Bisulfate [Plavix] 75 mg PO DAILY 09/01/18 Furosemide 40 mg PO DAILY 09/01/18 Prednisone [Deltasone] 40 mg PO DAILY #14 tablet 09/02/18 The following prescriptions were given: Prednisone [Deltasone] 40 mg PO DAILY #14 tablet Primary Care Physician: Juan De La Vega III, MD [Primary Care Provider] - Please follow up with your Primary Care Physician in: 3-5 days Test Results: Test results from this visit will be discussed in further detail at your follow- up appointment, if applicable.
--- NOTE | 2018-09-02 10:52 | PCM.DC.SUM ---
Discharge Date and Diagnosis Date of Admission: 09/01/18 Date of Discharge: 09/02/18 - Secondary Discharge Diagnosis Chronic Problems (Last Updated 05/24/18 @ 14:48 by Kana Khan MD) COPD (chronic obstructive pulmonary disease) (Chronic) Obesity (BMI 30.0-34.9) (Chronic) Nicotine dependence (Chronic) Gout (Chronic) Degenerative cervical disc (Chronic) Claudication (Chronic) Chronic back pain (Chronic) Presence of automatic implantable cardioverter-defibrillator (Chronic) Chronic renal failure, stage 3 (moderate) (Chronic) Chronic systolic (congestive) heart failure (Chronic) Stented coronary artery (Chronic ~12/2016) has had 7 stents as of 06/15/17 Ischemic cardiomyopathy (Chronic) 25% ejection fraction in November 2016 V-tach (Chronic) has an AICD Benign essential hypertension (Chronic) Gastroesophageal reflux disease (Chronic) Hyperlipidemia (Chronic) Type 2 diabetes mellitus (Chronic) Morbid obesity (Chronic) CAD (coronary artery disease) (Chronic) Hospital Course and Treatment Imaging Results: CXR: IMPRESSION: No acute abnormality is seen. L Hip XR: IMPRESSION: Mild enthesopathy. No demonstrated fracture. Lumbar XR: IMPRESSION: Degenerative changes of the spine, as detailed above. Consults: None Operations: None Procedures: None Summary of Care Provided: HPI: The patient is a 68 year old M with PMH as below who presents after a fall 4 days ago on ice. He states that he landed on his left side and has since had progressively worsening pain in his left hip and in his low back. He also states that he has been more short of breath over the last couple of weeks but has not gone to his primary care physician. He has noticed that he is wheezing more and also that his swelling has worsened in his lower extremities. In the ER he was hypoxic at 86% necessitating oxygen therapy. He was given a dose of IV steroids. Chest x-ray did not show any significant signs of vascular congestion to indicate a heart failure exacerbation. X-rays of the left hip and low back were negative for fracture. He does have chronic pain for which she takes Percocet at home. Hospital Course: 1. Mechanical fall with contusion of his left hip/chronic back pain-x-rays of his left hip and low back were negative he does have a large ecchymosis on his left hip and I explained to him that this will likely be painful for the next several days to possibly weeks. He does have Percocet at home which is the only thing that I would recommend for this at this time as he has no acute fracture. 2. Acute hypoxic respiratory failure secondary to a COPD exacerbation and possible acute on chronic systolic CHF/HLD/HTN/CAD status post CABG and stents x7/CKD 3-renal function is much improved today from 1.9 to 1.4. He did receive a dose of 40 mg of IV Lasix yesterday. He continues to have very coarse breath sounds however he is breathing a little bit better and was taken off of oxygen yesterday evening. He has remained on room air and is satting 93%. Will discharge with his home inhalers as well as a 7-day course of prednisone 40 mg daily. He will need to follow-up with his primary care physician as an outpatient in 3-5 days. Explained to him that he can increase his p.o. Lasix to twice a day for the next 2 days for improved diuresis. He improved much faster than anticipated. 3. His other medical diagnoses were evaluated and his home medications were continued where appropriate Objective: General: Alert, Oriented x3, Cooperative, No apparent distress HEENT: Atraumatic, PERRLA, EOMI, Normocephalic Oral: Moist Mucosa Neck: Supple, No JVD, Trachea Midline Lungs: Normal air movement, No rhonchi, No rales, Wheezes bilaterally and coarse Cardiovascular: Regular rate, Regular Rhythm, Normal S1, Normal S2, No murmurs Abdomen: Soft, Non Tender, Non-Distended, No Hepato-splenomegaly Extremities: Capillary Refill Less than 3 Seconds, Edema - Trace Skin: No rashes, No breakdown, - - Ecchymosis of his left hip Musculoskeletal: Tenderness - Palpation of left hip Neurological: Neuro grossly intact, Sensory exam intact to light touch and pain Psych/Mental Status: Normal Affect, Appropriate - Physical Exam Vital Signs Temp Pulse Resp BP Pulse Ox 98.1 F 76 18 114/57 L 93 09/02/18 08:30 09/02/18 09:56 09/02/18 08:30 09/02/18 08:30 09/02/18 08:30 Oxygen Flow Rate (L/min) 95 Oxygen Delivery Method Room Air Weight: 220 lb 3.869 oz Body Mass Index (BMI) 34.4 Intake and Output for Last 24 Hours 08/31/18 09/01/18 09/02/18 23:59 23:59 23:59 Intake Total 840 / 840 240 / 240 Balance 840 / 840 240 / 240 Laboratory Tests Past 24 Hrs 09/02/18 06:05 Sodium 139 Potassium 4.7 Chloride 106 Carbon Dioxide 23.0 Anion Gap 10 BUN 34 H Creatinine 1.41 H Estim Creat Clear Calc 47.53 Est GFR (MDRD) Af Amer 64 Est GFR (MDRD) Non-Af 53 L BUN/Creatinine Ratio 24.1 H Glucose 183 H Calcium 8.6 Discharge Activity: Return to Normal Activity Call your doctor if you observe: Fever of 101 or Higher, Shortness of breath, Dizziness, Fainting spells, Chest pain, Prolonged hiccoughing Home Medications: Medications to take at Discharge Nitroglycerin [Nitrostat] 0.4 mg SUBLINGUAL Q5M PRN 09/17/15 Isosorbide Mononitrate [Imdur] 30 mg PO DAILY 02/18/17 Albuterol Aerosols [Ventolin Aerosols] 2.5 mg INHALATION Q4H PRN PRN 02/23/17 albuterol sulfate HFA 90 mcg/actuation aerosol inhaler 2 puff INHALATION Q4H PRN g 07/31/17 fenofibrate nanocrystallized 145 mg tablet 145 mg PO DAILY 07/31/17 Pantoprazole Sodium [Protonix] 40 mg PO DAILY 11/15/17 umeclidinium 62.5 mcg-vilanterol 25 mcg/actuation powdr for inhalation 1 inh INHALATION DAILY #60 ea MDD copd 02/05/18 Allopurinol 300 mg PO DAILY 05/20/18 Metoprolol Succinate [Toprol Xl] 100 mg PO DAILY 05/20/18 Nicotine [Nicotine Patch] 21 mg TP DAILY 05/20/18 Lisinopril [Zestril] 2.5 mg PO DAILY 05/21/18 Rosuvastatin Calcium [Crestor] 40 mg PO DAILY 06/16/18 Spironolactone 25 mg PO DAILY 06/16/18 Clopidogrel Bisulfate [Plavix] 75 mg PO DAILY 09/01/18 Furosemide 40 mg PO DAILY 09/01/18 Prednisone [Deltasone] 40 mg PO DAILY #14 tablet 09/02/18 Following Prescrptions Were Given to Patient: Prednisone [Deltasone] 40 mg PO DAILY #14 tablet Primary Care Physician: Juan De La Vega III, MD [Primary Care Provider] - Please follow up with your Primary Care Physician in: 3-5 days Disposition: Home Minutes spent on discharge:: 35 Patient Condition:: Good Medical Necessity - Tobacco Use Smoking Status: Current every day smoker Tobacco Use: Cigarettes Meaningful Use Info Meaningful Use Diagnoses (Choose all that apply): None applicable Code Visit Inpatient E&M: 48528 Disch Hosp
--- NOTE | 2018-09-02 10:56 | CASEMGMT ---
LEONIE JEAN-BAPTISTE assessment: Face to Face with patient for initial transition planning/care coordination assessment. LEONIE JEAN-BAPTISTE introduced self and role at [facility], pt voices understanding and consents to assessment at this time. Pt is sitting up in bed in no distress at this time. Pt is A/Ox4 at this time and answers all questions appropriately at this time. Care providers, pharmacy, and demographics verified at this time. PCP: Yolette Specialists: Henny, cardio; marlena Cai Preferred Pharmacy: [facility] Insurance: [facility] dual/[facility] Prescription Benefit: Yes Living Will/HPOA: Pt states does not have LW/HPOA and declines info at this time. LNOK: Alma Rosa [place], Living Arrangements: Pt states lives with in an apartment with flight of stairs. Pt states struggles at times with stairs. Pt states completes ADL's independently at home. Transportation: Pt states drives self and states no transportation concerns at this time. DME/HHC: Pt states has a walker and nebulizer at home and states no need for any further DME at this time. Pt states no hx of HHC or SNF in the past. Pt states no concerns with going home at time of discharge. Pt states is retired. Pt states smokes 2-3cigarettes daily and does not drink ETOH. Pt states no further concerns/needs at this time. CM to follow for any further discharge planning/needs. Advised pt to ask for CM if any further questions/concerns/needs arise, voices understanding. Plan: [place] LEONIE JEAN-BAPTISTE
== END 2018-09-02 11:30 | disposition home or self-care (01) ==
LOC: ED 06:14 → PCU 09:42
PROVIDERS: Admitting Provider Family Medicine; Emergency Provider Emergency Medicine; Family Provider Family Medicine; PCP Family Medicine; Visit Provider Family Medicine
DX: J44.1 Chronic obstructive pulmonary disease with (acute) exacerbation (principal); S70.02XA Contusion of left hip, initial encounter; W00.0XXA Fall on same level due to ice and snow, initial encounter; Y93.9 Activity, unspecified; Y92.9 Unspecified place or not applicable; J96.01 Acute respiratory failure with hypoxia; M10.9 Gout, unspecified; E78.5 Hyperlipidemia, unspecified; K21.9 Gastro-esophageal reflux disease without esophagitis; E11.22 Type 2 diabetes mellitus with diabetic chronic kidney disease; I13.0 Hypertensive heart and chronic kidney disease with heart failure and stage 1 through stage 4 chronic kidney disease, or unspecified chronic kidney disease; N18.3 Chronic kidney disease, stage 3 (moderate); F17.210 Nicotine dependence, cigarettes, uncomplicated; I50.23 Acute on chronic systolic (congestive) heart failure; E66.01 Morbid (severe) obesity due to excess calories; G89.29 Other chronic pain; Z79.899 Other long term (current) drug therapy; Z79.02 Long term (current) use of antithrombotics/antiplatelets; Z68.34 Body mass index [BMI] 34.0-34.9, adult; Z71.3 Dietary counseling and surveillance; Z95.810 Presence of automatic (implantable) cardiac defibrillator
CPT/HCPCS: 36415; 36600; 71045; 72100; 73502; 80048; 82803; 83880; 84484; 85025; 93005; 94640; 96374; 96375; 96376; 99218; 99284; 99406; A4216; G0378; J1940; J2405

== ENCOUNTER 2018-09-20 13:06 | Observation (INO) | payer MEDICARE, SELFPAY ==
[2018-09-01 10:11] VITALS: BMI 34.4
[2018-09-20] VITALS (12 sets, daily range): BP systolic 83–123; BP diastolic 60–88; PULSE 67–90; RESP 14–20; TEMP 36.4–36.9; O2SAT 93–98; BMI 31.0; BMI 33.2
--- NOTE | 2018-09-20 13:53 | EKG12_ITS ---
Test Reason : SOB/CP Blood Pressure : / mmHG Vent. Rate : 070 BPM Atrial Rate : 070 BPM P-R Int : 146 ms QRS Dur : 112 ms QT Int : 444 ms P-R-T Axes : 053 -10 131 degrees QTc Int : 479 ms Normal sinus rhythm Incomplete left bundle branch block ST & T wave abnormality, consider anterolateral ischemia Prolonged QT Abnormal ECG Confirmed by BERYL LUNDBERG, MICHELLE ([id number]), scientific publications editor AYESHA HARRIS ([id number]) on 09/22/2018 9:57:22 AM Referred By: Lyla Swanson Confirmed By:MICHELLE CORDOBA MD
--- NOTE | 2018-09-20 13:53 | RAD_ITS ---
STUDY: X-RAY CHEST REASON FOR EXAM: Male, 68 years old. Chest pain. Cough. TECHNIQUE: Single AP portable view of the chest. COMPARISON: Comparison is made with prior study dated September 01, 2018. FINDINGS: EKG electrodes are seen. Stable mild degree of increased markings at the lung bases suggesting scarring. Hyperinflation. There is no demonstrated pleural abnormality. Sternal cerclage wires and vascular clips are present from a prior sternotomy and coronary artery bypass graft procedure (CABG). A left-sided dual-chamber pacemaker is seen. Mild cardiomegaly. Normal mediastinum and serjio. Normal visualized pulmonary arteries. Normal visualized aortic arch and descending thoracic aorta. Normal visualized thoracic spine. Normal visualized ribs, clavicles, and shoulders. There is no demonstrated abnormality of the visualized soft tissue structures of the upper abdomen. RAD/Chest 1 View (Portable) IMPRESSION: Hyperinflation. The lungs are clear. Electronically Signed: Arcenio Leary MD at 15:04 EST , Service support ,
[2018-09-20] MEDS: Aspirin 81 MG TAB.CHEW 324 MG PO (14:06)
[2018-09-20 14:08] LABS: Absolute Neutrophil Count 6.1 X10^3/uL (2.0-7.7); Basophil# 0.02 X10^3/uL; Basophil% 0.2 % (0-1); Eosinophil# 0.17 X10^3/uL; Eosinophils% 1.9 % (0-5); Hematocrit 46.3 % (40-54); Lymphocyte % 22.1 % (19-41); Mean Corp Hgb Conc 32.4 g/gl (32-36); Mean Corpuscular Hgb 29.9 pg (27.0-32.0); Mean Corpuscular Volume 92.2 fL (80-94); Mean Platelet Vol. 10.1 fl (6.2-12.0); Monocyte# 0.79 X10^3/uL; Monocyte% 8.7 % (0-10); Neutrophil # 6.05 X10^3/uL (2.7-7.7); Neutrophil % 66.8 % (47-70); POSITIVE COUNT NO; POSITIVE DIFFERENTIAL NO; POSITIVE MORPHOLOGY NO; Platelet Count 201 K/mm3 (150-450); RBC Distribution Width CV 14.1 % (11.6-14.6); RBC Distribution Width SD 47.1 fl (35.1-43.9); Red Blood Count 5.02 M/mm3 (4.6-6.2); White Blood Count 9.1 K/mm3 (4.4-11.0)
[2018-09-20 14:14] LABS: Anion Gap 9 (5-15); BUN 26 mg/dL (7-18); BUN/Creat Ratio 20.6 RATIO (10-20); Calcium,Total 9.2 mg/dL (8.5-10.1); Chloride 104 mmol/L (98-107); Creatinine, Serum 1.26 mg/dL (0.70-1.30); EST Glomerular Filtration Rate 61 mL/min (>60); Est Glom Filt Rate - Afr Amer 73 mL/min (>60); Estimated Creatinine Clearance 56.89 ml/min; Glucose 91 mg/dL (74-106); Potassium 3.8 mmol/L (3.5-5.1); Sodium Level 138 mmol/L (136-145)
[2018-09-20] MEDS: Ipratropium/Albuterol Sulfate 3 ML AMPUL.NEB INHALATION ×3 (14:37→22:57)
[2018-09-20] MEDS: Albuterol 2.5 MG/3 ML VIAL.NEB. INHALATION (14:43)
--- NOTE | 2018-09-20 16:04 | PCM.HP.STD ---
Problem List (1) COPD exacerbation Status: Acute (2) COPD (chronic obstructive pulmonary disease) Status: Chronic Qualifiers: COPD type: COPD with acute exacerbation Qualified Code(s): J44.1 - Chronic obstructive pulmonary disease with (acute) exacerbation (3) Obesity (BMI 30.0-34.9) Status: Chronic (4) Nicotine dependence Status: Chronic Qualifiers: Nicotine product type: cigarettes (5) Chronic back pain Status: Chronic Qualifiers: Back pain location: back pain in unspecified location Back pain laterality: unspecified Qualified Code(s): M54.9 - Dorsalgia, unspecified; G89.29 - Other chronic pain (6) Presence of automatic implantable cardioverter-defibrillator Status: Chronic (7) H/O coronary artery bypass surgery Status: Chronic Comment: HUMPHREY-LAD, SVG-D1, SVG-OM (8) Chronic renal failure, stage 3 (moderate) Status: Chronic (9) Chronic systolic (congestive) heart failure Status: Chronic (10) Ischemic cardiomyopathy Status: Chronic Comment: 25% ejection fraction in November 2016 (11) Benign essential hypertension Status: Chronic (12) Gastroesophageal reflux disease Status: Chronic Qualifiers: Esophagitis presence: esophagitis presence not specified Qualified Code(s): K21.9 - Gastro-esophageal reflux disease without esophagitis (13) Hyperlipidemia Status: Chronic Qualifiers: Hyperlipidemia type: pure hypercholesterolemia Qualified Code(s): E78.00 - Pure hypercholesterolemia, unspecified; E78.0 - Pure hypercholesterolemia (14) Type 2 diabetes mellitus Status: Chronic Qualifiers: Diabetes mellitus manager terminal insulin use: without longterm use Diabetes mellitus complication status: with unspecified complications Qualified Code(s): E11.8 - Type 2 diabetes mellitus with unspecified complications (15) CAD (coronary artery disease) Status: Chronic Qualifiers: Coronary Disease-Associated Artery/Lesion type: unspecified vessel or lesion type [place] vs. transplanted heart: unspecified whether [place] or transplanted heart Associated angina: angina presence unspecified Qualified Code(s): I25.10 - Atherosclerotic heart disease of [place] coronary artery without angina pectoris History of Present Illness Date of Admission: 09/20/18 Chief Complaint: Cough, severe intracostal muscle pain w/ coughing, dyspnea, wheezing, N/V/D The patient is a 68 y/o M w/ PMHx: CAD s/p CABG and PCI x 10, Diabetes mellitus type II, Obesity, HTN, HLD, Chronic COPD, Tobacco use history, Chronic Back Pain, Chronic Systolic CHF/Ischemic Cardiomyopathy, Hx VT s/p AICD placement, PVD w/ chronic claudication, CKD stage III (baseline Cr 1.6) who presents to the [facility] ED on 09/20/18 with history of ongoing fatigue, malaise, minimally productive cough with dyspnea and wheezing with severe intercostal muscle pain notably with coughing it is become very debilitating with additionally nausea occasional emesis and loose stool over the last week, not improving prompting eventual ED presentation. Workup in the ED included T 97.5, heart rate 67, BP 110/63--> P BP 83/66 improvement with hydration to 100/66, respiratory rate 20, initially 97% on room air CBC with WBC 9.1, hemoglobin 15, platelet 201 without marked shift, BMP with BUN/Cr 26/1.26, glucose 91, trop < 0.015 rapid influenza negative, chest x-ray with no acute cardio pony findings with chronic changes. In the ED patient administered albuterol, DuoNeb's, aspirin, fentanyl, Solu-Medrol 125 mg IV x1 as well as normal saline IV fluid bolus. Past Medical History Past Medical History (Chronic Problems): Chronic Problems (Last Updated 05/24/18 @ 14:48 by Kana Khan MD) COPD (chronic obstructive pulmonary disease) (Chronic) Obesity (BMI 30.0-34.9) (Chronic) Nicotine dependence (Chronic) Gout (Chronic) Degenerative cervical disc (Chronic) Claudication (Chronic) Chronic back pain (Chronic) Presence of automatic implantable cardioverter-defibrillator (Chronic) Presence of automatic implantable cardioverter-defibrillator (Chronic) H/O coronary artery bypass surgery (Chronic ~2008) HUMPHREY-LAD, SVG-D1, SVG-OM Chronic renal failure, stage 3 (moderate) (Chronic) Chronic systolic (congestive) heart failure (Chronic) Stented coronary artery (Chronic ~12/2016) has had 7 stents as of 06/15/17 Ischemic cardiomyopathy (Chronic) 25% ejection fraction in November 2016 V-tach (Chronic) has an AICD Benign essential hypertension (Chronic) Gastroesophageal reflux disease (Chronic) Hyperlipidemia (Chronic) Type 2 diabetes mellitus (Chronic) Morbid obesity (Chronic) CAD (coronary artery disease) (Chronic) Medical History: Medical History (Last Updated 05/24/18 @ 14:48 by Kana Khan MD) Nicotine dependence (Chronic) F17.200 Gout (Chronic) M10.9 Degenerative cervical disc (Chronic) M50.30 Claudication (Chronic) I73.9 Chronic back pain (Chronic) M54.9, G89.29 Chronic renal failure, stage 3 (moderate) (Chronic) N18.3 Chronic systolic (congestive) heart failure (Chronic) I50.22 Ischemic cardiomyopathy (Chronic) I25.5 25% ejection fraction in November 2016 V-tach (Chronic) I47.2 has an AICD Benign essential hypertension (Chronic) I10 Gastroesophageal reflux disease (Chronic) K21.9 Hyperlipidemia (Chronic) E78.5 Type 2 diabetes mellitus (Chronic) E11.9 Morbid obesity (Chronic) E66.01 CAD (coronary artery disease) (Chronic) I25.10 Acute non-ST segment elevation myocardial infarction (Resolved) I21.4 Colitis (Inactive) Tinea manus (Inactive) B35.2 Tubular adenoma of colon (Inactive) D12.6 Allergies chlorpromazine HCl [From Thorazine] Allergy (Severe, Verified 09/20/18 13:14) Hives PER PATIENT tramadol HCl [From Ultram] Allergy (Severe, Verified 09/20/18 13:14) Hives PER PATIENT codeine Allergy (Intermediate, Verified 09/20/18 13:14) Hives atorvastatin Adverse Reaction (Intermediate, Verified 09/20/18 13:14) Other LEG PAIN/CRAMPS naproxen Adverse Reaction (Verified 09/20/18 13:14) Upset Stomach promethazine [From Phenergan] Adverse Reaction (Verified 09/20/18 13:14) Other CONFUSION Home Medications: Ambulatory Orders Medication Instructions Recorded Nitroglycerin [Nitrostat] 0.4 mg SUBLINGUAL Q5M PRN 09/17/15 Isosorbide Mononitrate [Imdur] 30 mg PO DAILY 02/18/17 Albuterol Aerosols [Ventolin 2.5 mg INHALATION Q4H PRN PRN 02/23/17 Aerosols] albuterol sulfate HFA 90 2 puff INHALATION Q4H PRN g 07/31/17 mcg/actuation aerosol inhaler Pantoprazole Sodium [Protonix] 40 mg PO DAILY 11/15/17 umeclidinium 62.5 mcg-vilanterol 1 inh INHALATION DAILY #60 ea MDD 02/05/18 25 mcg/actuation powdr for copd inhalation Metoprolol Succinate [Toprol Xl] 100 mg PO DAILY 05/20/18 Lisinopril [Zestril] 2.5 mg PO DAILY 05/21/18 Rosuvastatin Calcium [Crestor] 40 mg PO DAILY 06/16/18 Spironolactone 25 mg PO DAILY 06/16/18 Clopidogrel Bisulfate [Plavix] 75 mg PO DAILY 09/01/18 Furosemide 40 mg PO DAILY 09/01/18 Allopurinol 300 mg PO DAILY 09/20/18 Aspirin E.C. [Ecotrin] 325 mg PO DAILY@0800 09/20/18 Nicotine [Nicoderm Cq ([facility])] 21 mg TRANSDERM. DAILY 09/20/18 Surgical History: Surgical History (Last Reviewed 12/15/17 @ 10:18 by Ramonita Alcantar) Presence of automatic implantable cardioverter-defibrillator (Resolved) Z95.810 H/O coronary artery bypass surgery (Resolved) Onset Date: ~2008 Z95.1 HUMPHREY-LAD, SVG-D1, SVG-OM Stented coronary artery (Chronic) Onset Date: ~12/2016 has had 7 stents as of 06/15/17 Hx of hernia repair (Inactive) Z98.890, Z87.19 Previous back surgery (Inactive) Z98.890 Status post left heart catheterization (Inactive) Onset Date: ~12/2016 Z98.890 Surgical History: angioplasty - stents x10, coronary bypass surgery, - - AICD placement, back surgery x 2, hernia repair Psychiatric History: No pertinent psych hx Lives: Spouse/ Significant Other Smoking Status: Current every day smoker - Patient is currently down to 2 cigarettes/day although prior to this was 1 pack/day since he was a teenager. He notes he has been using a nicotine 21 mg replacement for the last 2 months with plan transition down to 14 mg and likely 1 month. Tobacco Use: Cigarettes Alcohol: None Drugs: None - *Family History Paternal Family History: Family History (Last Reviewed 12/15/17 @ 10:18 by Ramonita Alcantar) Brother CAD (coronary artery disease) Myocardial infarction Sudden cardiac Mother Cancer Hypertension Father Cancer COPD (chronic obstructive pulmonary disease) History Items: Cancer, Heart Disease Maternal Family History: Family History (Last Reviewed 12/15/17 @ 10:18 by Ramonita Alcantar) Brother CAD (coronary artery disease) Myocardial infarction Sudden cardiac Mother Cancer Hypertension Father Cancer COPD (chronic obstructive pulmonary disease) History Items: - - Patient notes a paternal family history of chronic lung disease, lung cancer with history of tobacco use. Review of Systems Constitutional: Reports: Anorexia, Malaise, Weakness, Fatigue. Denies: Chills, Fever, Weight Change HEENT: Reports: Post Nasal Drip, Sinus Congestion, Sinus Drainage. Denies: Head Aches Cardiovascular: Reports: Chest Pain. Denies: Palpitations Respiratory: Reports: Cough, Pleuritic Pain, Shortness of Breath, Shortness of breath at rest, Shortness of breath upon exertion, Sputum production, Wheezing Gastrointestinal: Reports: Diarrhea, Nausea, Vomiting. Denies: Abdominal Pain Genitourinary: Denies: Dysuria Musculoskeletal: Reports: Back Pain, Joint Pain, Muscle pain. Denies: Joint Tenderness Skin: Denies: Rash, Wounds Neurological: Denies: Numbness, Tingling, Focal weakness Psychiatric: Denies: Anxiety, Depression, Homicidal Ideations, Suicidal Ideations Hematologic/ Lymphatic: Denies: Easy Bruising, Easy Bleeding VTE Information - Inpt Only VTE Present on Admission: No VTE Mechan Device Prophylaxis: SCD's VTE Pharm Prophylaxis ordered?: Yes Patient Problems: Active and Suspected Problems (Last Updated 05/24/18 @ 14:48 by Kana Khan MD) COPD exacerbation (Acute) Subjective: Seated upright in the ED bedside chair, fatigued appearing, holding his chest with noted severe discomfort with any coughing. Objective: Physical Examination: General: awake, alert, oriented x 3 and cooperative, seated upright in the ED bedside chair, fatigued appearance, ongoing chest pain w/ coughing fits. Skin: normal color, turgor, no icterus, cyanosis. HEENT: AT/NC, EOMI, PERRLA, moderately dry MM, no carotid bruits or JVD noted. Lungs: Severely diminished, > bases, poor effort, harsh coughing with severe intercostal muscle discomfort, reproducible with palpation, and expiratory wheezing noted. Heart: Regular rate and rhythm; no gallop, rub audible, reproducible discomfort with palpation of intercostal muscles. Abdomen: soft, obese, NTTP, ND, normal BS, no HSM. Extremities: no cyanosis, clubbing, or edema. Neurological: patient awake, alert, oriented x 3; cognitive function intact; pupils equally reactive to light and accomodation; cranial nerves II-XII grossly normal, moving all 4 extremities, no focal deficits, strength severely globally decreased secondary to acute presentation. Psychiatric: affect appears fatigued, ill-appearing, no acute evidence of depressive or anxiety feelings. - Physical Exam Vital Signs Temp Pulse Resp BP Pulse Ox 97.5 F L 80 14 83/66 L 95 09/20/18 13:07 09/20/18 15:00 09/20/18 15:00 09/20/18 15:00 09/20/18 15:00 Oxygen Flow Rate (L/min) 2 Oxygen Delivery Method Room Air Weight: 210 lb Body Mass Index (BMI) 31.0 Microbiology Past 72 Hours 09/20/18 14:52 Influenza Types A,B Direct FA (PAT) - Final Mucosa - Nasopharyngeal Laboratory Tests Past 24 Hrs 09/20/18 09/20/18 13:20 13:20 WBC 9.1 RBC 5.02 Hgb 15.0 Hct 46.3 MCV 92.2 MCH 29.9 MCHC 32.4 RDW 14.1 RDW Differential 47.1 H Plt Count 201 MPV 10.1 Immature Gran % (Auto) 0.300 Neut % (Auto) 66.8 Lymph % (Auto) 22.1 [place] % (Auto) 8.7 Eos % (Auto) 1.9 Baso % (Auto) 0.2 Absolute Neuts (auto) 6.1 Absolute Lymphs (auto) 2.00 Total Counted Not Reportable Sodium 138 Potassium 3.8 Chloride 104 Carbon Dioxide 25.0 Anion Gap 9 BUN 26 H Creatinine 1.26 Estim Creat Clear Calc 56.89 Est GFR (MDRD) Af Amer 73 Est GFR (MDRD) Non-Af 61 BUN/Creatinine Ratio 20.6 H Glucose 91 Calcium 9.2 Troponin I < 0.015 Assessment/Plan All Active Problems (Last Updated 05/24/18 @ 14:48 by Kana Khan MD) COPD exacerbation (Acute) Abdominal pain (Resolved) Acute non-ST segment elevation myocardial infarction (Resolved) NSTEMI (non-ST elevated myocardial infarction) (Resolved) Non-STEMI (non-ST elevated myocardial infarction) (Resolved) The patient is a 68 y/o M w/ PMHx: CAD s/p CABG and PCI x 10, Diabetes mellitus type II, Obesity, HTN, HLD, Chronic COPD, Tobacco use history, Chronic Back Pain, Chronic Systolic CHF/Ischemic Cardiomyopathy, Hx VT s/p AICD placement, PVD w/ chronic claudication, CKD stage III (baseline Cr 1.6) who presents to the [facility] ED on 09/20/18 with history of ongoing fatigue, malaise, minimally productive cough with dyspnea and wheezing with severe intercostal muscle pain notably with coughing it is become very debilitating with additionally nausea occasional emesis and loose stool over the last week, not improving prompting eventual ED presentation. (1) Acute on chronic COPD exacerbation w/ suspected Acute Viral Syndrome, Possibly Influenza B (N/V/D associated): Workup in the ED included T 97.5, heart rate 67, BP 110/63--> P BP 83/66 improvement with hydration to 100/66, respiratory rate 20, initially 97% on room air CBC with W BC 9.1, heme globin 15, platelet 201 without marked shift, BMP with BUN/Cr 26/1.26, glucose 91, trop < 0.015 rapid influenza negative, chest x-ray with no acute cardio pony findings with chronic changes. As noted patient with concurrent recent nausea, emesis and diarrhea over the last week. Will admit to [facility], maintain on oxygen with wean as tolerated to room air, continue ATC duonebs, PRN albuterol, IV methylprednisolone, HOB, IS parameters, defer antibiotics and suspected viral etiology, obtain respiratory viral panel as given presentation suspect possible influenza B or alternate viral syndrome, obtain sputum culture. To be cautious, stool cultures also requested but again suspected viral syndrome. (2) Hypotensive: Likely secondary to GI losses, improved w/ hydration in the ED, will continue to gently hydrate and place hold parameters on patient BP/cardiac regimen. (3) CAD: s/p CABG x 4 and PCI x 7. Will continue home regimen asa, plavix, statin, BB. (4) Hypertension: Continue home regimen including lasix, imdur, isosorbid, metoprolol, ACEI with hold parameters given hypotensive upon initial ED presentation, PRN hydralazine. (5) Hyperlipidemia: Continue home statin regimen. (6) Tobacco Use: Encouraged continued reduction tobacco use, currently using 21 mg NR, will continue with encouraged reduction to 14 mg patch, tobacco cessation requested. (7) Chronic Systolic CHF/Ischemic Cardiomyopathy: s/p AICD history, maintained on asa, plavix, statin, BB, spironolactone, BEHZAD w/ hold parameters given hypotension upon initial presentation likely suspected to GI losses. (8) CKD stage III: Admission BUN/Cr 26/1.26, baseline from prior appears 1.6, gently hydrating given cardiac disease history, repeat BMP in AM. (9) Diabetes mellitus type II: Regimen, obtain hemoglobin A1c with level 6.8%, ADA diet, accu checks w/ ISS, consulted for education and teaching. (10) Hx VT; s/p AICD placement. (11) GERD: PPI. (12) DVT Prophylaxis: SCDs, lovenox. Code Visit Inpatient E&M: 97483 Init Hosp L3
--- NOTE | 2018-09-20 16:10 | NURSING ---
MED SURG COPD EXAC WHITE
--- NOTE | 2018-09-20 16:23 | ED.VISSUMM ---
- ER Visit Summary Date of Service: 09/20/18 Chief Complaint: Chest pain, shortness of breath History of Present Illness: The patient is a 68 M presenting with chest pain, shortness of breath. He states his symptoms have been ongoing for the past week. Pain is worse with coughing and deep inspiration. He was seen by Dr. De La Vega today his primary care physician and was sent to the ED for further evaluation. Patient has a history of coronary disease, CHF, COPD, diabetes, hypertension. He complains of nonproductive cough. He has had vomiting and diarrhea. Denies fever. Physical Examination: Vitals are stable. Blood pressure is 83/66. Patient is afebrile. Alert no acute distress. HEENT exam is unremarkable. Neck is supple. Lungs are clear and equal bilaterally. Heart is regular rate and rhythm. Abdomen is soft nontender nondistended. Extremities are unremarkable. Skin is warm and dry. No focal neurologic deficit. Remainder of exam is unremarkable. Emergency Department Course and Treatment: EKG is sinus rate of 70 unchanged from previous. Chest x-ray shows hyperinflation. CBC, chemistries unremarkable. Troponin is negative. Influenza negative. He was given albuterol Atrovent aerosols. He is given Solu-Medrol IV. He was given aspirin on arrival. He was given fentanyl for pain. Discussed with the hospitalist for admission. Disposition: Admission Impression: COPD exacerbation This note was generated with [employer] dictation software. It may contain incorrect words, spelling, and punctuation that were not noted in review of the chart prior to signing ED Disposition - Plan for ED Patient: Referrals: Juan De La Vega III, MD [Primary Care Provider] -
[2018-09-20] MEDS: fentaNYL 100 MCG/2 ML Ampul 50 MCG IV (16:38)
[2018-09-20] MEDS: MethylPREDNISolone 125 MG/2 ML Vial IV (16:38)
[2018-09-20 17:19] LABS: Magnesium 1.8 mg/dL (1.6-2.6)
[2018-09-20] MEDS: 0.9% Normal Saline 1,000 ML 100 ML IV (17:31)
[2018-09-20] MEDS: guaiFENesin 10 ML UDC (200MG/10ML) PO ×2 (17:31→22:50)
[2018-09-20] MEDS: Morphine 2 MG/ML Syringe IV ×2 (17:31→21:20)
[2018-09-20 17:40] LABS: Hemoglobin A1c 6.8 % (4.2-6.3)
[2018-09-20] MEDS: MELATONIN 3 MG TABLET PO (22:50)
[2018-09-20] MEDS: oxyCODONE 5 MG Tablet PO (22:50)
[2018-09-20] MEDS: Insulin Lispro 100 UNIT/ML INSULN.PEN SC (22:55)
[2018-09-20 23:06] LABS: Bedside Glucose 253 mg/dL (70-110)
[2018-09-21] VITALS (11 sets, daily range): BP systolic 109–129; BP diastolic 42–75; PULSE 70–97; RESP 18–20; TEMP 36.2–37; O2SAT 92–95
[2018-09-21] MEDS: Ketorolac 15 MG/ML Vial IV (00:36)
[2018-09-21] MEDS: Ipratropium/Albuterol Sulfate 3 ML AMPUL.NEB INHALATION ×4 (02:26→15:21)
[2018-09-21] MEDS: Morphine 2 MG/ML Syringe IV (02:52)
[2018-09-21] MEDS: guaiFENesin 10 ML UDC (200MG/10ML) PO (02:52)
--- NOTE | 2018-09-21 04:19 | NURSING ---
I had told patient at the beginning of the shift that he is not allowed to leave his room as we had to put him on contact precautions. I found Pt in bed eating and frozen ice from the freezer. I ask patient if he had gone and gotten them because I told the aid he couldn't have anymore because his sugar was high. Patient said he had left room. I told him again he is not allowed to leave his room because of the contact precautions and that he could possibably transmit them to other patients. He tried giving me the frozen ice, but I told him once they were in his room I can't put them back in the freezer. I moved the remaining icees to the other freezer.
--- NOTE | 2018-09-21 05:55 | RAD_ITS ---
STUDY: X-RAY CHEST REASON FOR EXAM: Male, 68 years old. Cough and shortness of breath TECHNIQUE: PA and lateral views of the chest. COMPARISON: Chest x-ray yesterday FINDINGS: Stable COPD. Lungs are clear. Stable right lower lobe granuloma. There is no demonstrated pleural abnormality. Sternal cerclage wires are present from a prior sternotomy. Stable mild cardiomegaly with left chest wall pacing device. Normal mediastinum and serjio. Normal visualized pulmonary arteries. Normal visualized aortic arch and descending thoracic aorta. Normal visualized thoracic spine. Normal visualized ribs, clavicles, and shoulders. There is no demonstrated abnormality of the visualized soft tissue structures of the upper abdomen. RAD/Chest PA and Lateral IMPRESSION: No acute cardiopulmonary disease Electronically Signed: Yosef Simpson DO at 15:07 EST Tel , Service support ,
[2018-09-21] MEDS: oxyCODONE 5 MG Tablet PO ×2 (05:56→15:20)
[2018-09-21] MEDS: 0.9% NaCl Peripheral Flush Adult/Peds IV (05:56)
[2018-09-21 06:25] LABS: Anion Gap 13 (5-15); BUN 29 mg/dL (7-18); Calcium,Total 8.3 mg/dL (8.5-10.1); Chloride 102 mmol/L (98-107); Creatinine, Serum 1.53 mg/dL (0.70-1.30); EST Glomerular Filtration Rate 48 mL/min (>60); Est Glom Filt Rate - Afr Amer 59 mL/min (>60); Estimated Creatinine Clearance 42.28 ml/min; Glucose 286 mg/dL (74-106); Potassium 3.9 mmol/L (3.5-5.1); Sodium Level 135 mmol/L (136-145)
[2018-09-21 06:26] LABS: Absolute Lymphocyte Count 0.38 X10^3/ul (0.83-4.51); Hemoglobin 12.4 g/dl (13.0-16.5); Lymphocyte # 0.38 X10^3/ul (4.0); Lymphocyte % 8.6 % (19-41); Mean Corp Hgb Conc 32.6 g/gl (32-36); Mean Corpuscular Hgb 30.2 pg (27.0-32.0); Mean Corpuscular Volume 92.7 fL (80-94); Monocyte# 0.06 X10^3/uL; Monocyte% 1.4 % (0-10); Neutrophil # 3.98 X10^3/uL (2.7-7.7); Platelet Count 189 K/mm3 (150-450); RBC Distribution Width CV 13.5 % (11.6-14.6); RBC Distribution Width SD 44.6 fl (35.1-43.9); White Blood Count 4.4 K/mm3 (4.4-11.0)
[2018-09-21 06:35] LABS: POSITIVE COUNT NO; POSITIVE DIFFERENTIAL YES
[2018-09-21 06:36] LABS: Differential Indicated SCAN CRITERIA MET; POSITIVE MORPHOLOGY NO
[2018-09-21] MEDS: Insulin Lispro 100 UNIT/ML INSULN.PEN SC ×2 (06:36→12:06)
[2018-09-21 06:50] LABS: Bedside Glucose 227 mg/dL (70-110)
[2018-09-21] MEDS: Aspirin E.C. 325 MG Tablet PO (08:31)
[2018-09-21] MEDS: Isosorbide Mononitrate 30 MG Tablet PO (10:56)
[2018-09-21] MEDS: Metoprolol(XL)Succ 100 MG Tablet PO (10:57)
[2018-09-21] MEDS: Pantoprazole Sodium 40 MG Tablet PO (10:57)
[2018-09-21] MEDS: Spironolactone 25 MG Tablet PO (10:57)
[2018-09-21] MEDS: Clopidogrel Bisulfate 75 MG Tablet PO (10:57)
[2018-09-21] MEDS: Enoxaparin 40 MG/0.4 ML Syringe SC (10:57)
[2018-09-21] MEDS: Lisinopril 2.5 MG Tablet PO (10:57)
[2018-09-21] MEDS: Allopurinol 300 MG Tablet PO (10:57)
[2018-09-21] MEDS: Furosemide 40 MG Tablet PO (10:57)
[2018-09-21] MEDS: Rosuvastatin 20 MG Tablet 40 MG PO (11:03)
[2018-09-21 11:35] LABS: Bedside Glucose 195 mg/dL (70-110)
--- NOTE | 2018-09-21 13:17 | CASEMGMT ---
RN CM Assessment Presentation: COPD exacerbation Intro role of CM and purpose of RN CM assessment. Pt sitting at side of bed, able to participate in RN CM Assessment. Pt states he is independent @ home and helps care for his when needed. is also patient in hospital presently. Pt states he has not seen her yet due to being in isolation. PCP: Dr. Vane Morgan Preferred [facility]acy: [email or web address] [facility] Prescription Benefit: yes through insurance LNOK: [place]. Living Arrangements: Two story home with bedroom, bathroom on second floor. No steps into home. Transportation: Drives DME: nebulizer. (no oxygen, cpap or ambulatory device use per pt) HHC: none DC PLAN: Home, no needs identified. Frankie SAUCEDO RN ACM
[2018-09-21] MEDS: predniSONE 20 MG Tablet 40 MG PO (13:59)
[2018-09-21] MEDS: Glucerna Shake 120 ML LIQUID PO (14:00)
--- NOTE | 2018-09-21 15:06 | DCINST_ITS ---
- Discharge Diagnoses Current Active Problems: Current Active and Chronic Problems (Last Updated 05/24/18 @ 14:48 by Kana Khan MD) COPD exacerbation (Acute) You will use the following diet at home:: Other - resume previous diet Your food should be the consistency of: Regular Your liquids should be the consistency of: Regular/Thin Discharge Activity: May not drive while taking narcotic pain medications. - This includes the cough medication you are being sent home with Call your doctor if you observe: Fever of 101 or Higher, Shortness of breath, Dizziness, Fainting spells, Chest pain, - - worsening symptoms Additional Instructions: 1. You do not have Pneumonia. The respiratory panel is negative for any respiratory viruses we have a test for but, you most likely had a virus. You do not have the flu. Antibiotics do NOT work for viruses and you just have to ride it out. 2. I have given you a prescription for Hycodan cough syrup to suppress the dry cough. This medication can make you sleepy and you should not drive while taking this. 3. Get plenty of rest but, get up and take a walk around the house at least every 2 hours. Use the aerosol machine every 4 hours while awake for the next 3-4 days at least. I am sending you home with a prescription for prednisone and this will tapered over the next 10 days. Pending Tests on Discharge: final on the sputum culture Allergies/Adverse Reactions: Allergies chlorpromazine HCl [From Thorazine] Allergy (Severe, Verified 09/20/18 13:14) Hives PER PATIENT tramadol HCl [From Ultram] Allergy (Severe, Verified 09/20/18 13:14) Hives PER PATIENT codeine Allergy (Intermediate, Verified 09/20/18 13:14) Hives atorvastatin Adverse Reaction (Intermediate, Verified 09/20/18 13:14) Other LEG PAIN/CRAMPS naproxen Adverse Reaction (Verified 09/20/18 13:14) Upset Stomach promethazine [From Phenergan] Adverse Reaction (Verified 09/20/18 13:14) Other CONFUSION Medications to take at Discharge Nitroglycerin [Nitrostat] 0.4 mg SUBLINGUAL Q5M PRN 09/17/15 Isosorbide Mononitrate [Imdur] 30 mg PO DAILY 02/18/17 Albuterol Aerosols [Ventolin Aerosols] 2.5 mg INHALATION Q4H PRN PRN 02/23/17 albuterol sulfate HFA 90 mcg/actuation aerosol inhaler 2 puff INHALATION Q4H PRN g 07/31/17 Pantoprazole Sodium [Protonix] 40 mg PO DAILY 11/15/17 umeclidinium 62.5 mcg-vilanterol 25 mcg/actuation powdr for inhalation 1 inh INHALATION DAILY #60 ea MDD copd 02/05/18 Metoprolol Succinate [Toprol Xl] 100 mg PO DAILY 05/20/18 Lisinopril [Zestril] 2.5 mg PO DAILY 05/21/18 Rosuvastatin Calcium [Crestor] 40 mg PO DAILY 06/16/18 Spironolactone 25 mg PO DAILY 06/16/18 Clopidogrel Bisulfate [Plavix] 75 mg PO DAILY 09/01/18 Furosemide 40 mg PO DAILY 09/01/18 Allopurinol 300 mg PO DAILY 09/20/18 Aspirin E.C. [Ecotrin] 325 mg PO DAILY@0800 09/20/18 Hydrocodone Bit/Homatropine [Hycodan Syrup] 5 ml GT Q6H PRN PRN 7 Days #90 mls 09/21/18 Nicotine [Nicoderm Cq] 21 mg TRANSDERM. DAILY #28 patch 09/21/18 Prednisone 10 mg PO UD #30 tab 09/21/18 The following prescriptions were given: Hydrocodone Bit/Homatropine [Hycodan Syrup] 5 ml GT Q6H PRN PRN 7 Days #90 mls PRN Reason: dry cough Nicotine [Nicoderm Cq] 21 mg TRANSDERM. DAILY #28 patch Prednisone 10 mg PO UD #30 tab Primary Care Physician: Juan De La Vega III, MD [Primary Care Provider] - Please follow up with your Primary Care Physician in: 7-10 days Test Results: Test results from this visit will be discussed in further detail at your follow- up appointment, if applicable. Proposed Discharge Date: 09/21/18
--- NOTE | 2018-09-21 15:22 | DS.PCM_ITS ---
Discharge Date and Diagnosis - Problem List Patient Problems: Active and Suspected Problems (Last Updated 05/24/18 @ 14:48 by Kana Khan MD) COPD exacerbation (Acute) Date of Admission: 09/20/18 Date of Discharge: 09/21/18 - Primary Discharge Diagnosis Active and Suspected Problems (Last Updated 05/24/18 @ 14:48 by Kana Khan MD) COPD exacerbation (Acute) - Secondary Discharge Diagnosis Chronic Problems (Last Updated 05/24/18 @ 14:48 by Kana Khan MD) COPD (chronic obstructive pulmonary disease) (Chronic) Obesity (BMI 30.0-34.9) (Chronic) Nicotine dependence (Chronic) Gout (Chronic) Degenerative cervical disc (Chronic) Claudication (Chronic) Chronic back pain (Chronic) Presence of automatic implantable cardioverter-defibrillator (Chronic) Presence of automatic implantable cardioverter-defibrillator (Chronic) H/O coronary artery bypass surgery (Chronic ~2008) HUMPHREY-LAD, SVG-D1, SVG-OM Chronic renal failure, stage 3 (moderate) (Chronic) Chronic systolic (congestive) heart failure (Chronic) Stented coronary artery (Chronic ~12/2016) has had 7 stents as of 06/15/17 Ischemic cardiomyopathy (Chronic) 25% ejection fraction in November 2016 V-tach (Chronic) has an AICD Benign essential hypertension (Chronic) Gastroesophageal reflux disease (Chronic) Hyperlipidemia (Chronic) Type 2 diabetes mellitus (Chronic) Morbid obesity (Chronic) CAD (coronary artery disease) (Chronic) Hospital Course and Treatment Imaging Results: Clinical Impression(s) from Imaging Studies Chest X-Ray 09/20/18 13:53 IMPRESSION: Hyperinflation. The lungs are clear. Electronically Signed: Arcenio Leary MD at 15:04 EST , Service support , Chest X-Ray 09/21/18 05:55 IMPRESSION: No acute cardiopulmonary disease Electronically Signed: Yosef Simpson DO at 15:07 EST Tel , Service support , Laboratory Results - last 24 hr 0209/20/18 09/20/18 13:20 13:20 22:55 WBC RBC Hgb Hct MCV MCH MCHC RDW RDW Differential Plt Count MPV Immature Gran % (Auto) Neut % (Auto) Lymph % (Auto) Sibley % (Auto) Eos % (Auto) Baso % (Auto) Absolute Neuts (auto) Absolute Lymphs (auto) Total Counted Sodium Potassium Chloride Carbon Dioxide Anion Gap BUN Creatinine Estim Creat Clear Calc Est GFR (MDRD) Af Amer Est GFR (MDRD) Non-Af BUN/Creatinine Ratio Glucose Hemoglobin A1c 6.8 H Calcium Magnesium 1.8 POC Glucose 253 H 09/21/18 09/21/18 09/21/18 05:25 05:25 06:34 WBC 4.4 RBC 4.10 L Hgb 12.4 L Hct 38.0 L MCV 92.7 MCH 30.2 MCHC 32.6 RDW 13.5 RDW Differential 44.6 H Plt Count 189 MPV 10.0 Immature Gran % (Auto) 0.000 Neut % (Auto) 90.0 H Lymph % (Auto) 8.6 L Sibley % (Auto) 1.4 Eos % (Auto) 0.0 Baso % (Auto) 0.0 Absolute Neuts (auto) 4.0 Absolute Lymphs (auto) 0.38 L Total Counted Not Reportable Sodium 135 L Potassium 3.9 Chloride 102 Carbon Dioxide 20.0 L Anion Gap 13 BUN 29 H Creatinine 1.53 H Estim Creat Clear Calc 42.28 Est GFR (MDRD) Af Amer 59 L Est GFR (MDRD) Non-Af 48 L BUN/Creatinine Ratio 19.0 Glucose 286 H Hemoglobin A1c Calcium 8.3 L Magnesium POC Glucose 227 H 09/21/18 11:34 WBC RBC Hgb Hct MCV MCH MCHC RDW RDW Differential Plt Count MPV Immature Gran % (Auto) Neut % (Auto) Lymph % (Auto) Sibley % (Auto) Eos % (Auto) Baso % (Auto) Absolute Neuts (auto) Absolute Lymphs (auto) Total Counted Sodium Potassium Chloride Carbon Dioxide Anion Gap BUN Creatinine Estim Creat Clear Calc Est GFR (MDRD) Af Amer Est GFR (MDRD) Non-Af BUN/Creatinine Ratio Glucose Hemoglobin A1c Calcium Magnesium POC Glucose 195 H Microbiology 09/20/18 20:56 Sputum, Expectorated/Coughed Gram Stain - Final 09/20/18 20:56 Sputum, Expectorated/Coughed Respiratory Culture - Preliminary Appears to be normal respiratory zhang. Further studies to follow. 09/20/18 19:35 Mucosa - Nasopharyngeal Respiratory Panel (PCR) - Final 09/20/18 14:52 Mucosa - Nasopharyngeal Influenza Types A,B Direct FA (PAT) - Final none Operations: None Procedures: None Summary of Care Provided: The patient is a 68 year old M with a past medical history of COPD, ongoing tobacco dependence, coronary artery disease, multiple PCI's, AICD placement, ischemic cardiomyopathy with a 25% ejection fraction, chronic back pain, diabetes mellitus type 2, chronic renal failure stage III, hypertension, GERD, hyperlipidemia who presented to the emergency department at [facility] on 09/20/2018 complaining of a dry cough, chest pain with coughing, wheezing, fatigue and intermittent nausea/vomiting/loose stool over the preceding week. Vital signs in the emergency room were temperature 97.5, heart rate 67, blood pressure 110/63, respiratory rate 20 and he was 97% saturated on room air. CBC showed a normal white blood cell count at 9.1 with a normal differential. Hemoglobin was 10 and the platelet count was 201,000. Electrolytes were within normal limits and the BUN was 26 with a creatinine of 1.26 which is within his baseline over the past few years. Troponin was less than 0.015. Hemoglobin A1c was 6.8. Rapid influenza swab was negative. Chest x-ray showed no pleural effusions, pulmonary vascular congestion or infiltrates. Auscultation of the lungs by Dr. Bowen in the emergency department revealed them to be clear to auscultation and equal bilaterally. Auscultation of the lungs by the admitting hospitalist revealed him to be diminished and there was a poor inspiratory effort. There was end-expiratory wheezing noted. He was admitted to the hospital and placed on inhaled bronchodilators, intravenous steroids and Toradol for the musculoskeletal pain. He was afebrile for the duration of his hospital visit. The respiratory panel was negative. Sputum Gram stain had 1+ WBCs and the preliminary report appears to be normal respiratory zhang. Chest x-ray was repeated on 09/21/2018 and once again had no infiltrates, pleural effusions or pulmonary vascular congestion. He was observed walking from his room in 317 to his 's room in 308 and when he got there he was not tachypneic and his lungs were CTA. He was discharged home with a probable viral URI. His tested + for HMP virus and I suspect this is what he had as well....he was ill first. Was discharged with a prescription for prednisone 40 mg and this will be tapered over the next 10 days. He was given a prescription for Hycodan, 90 cc, and will take 1 teaspoon every 6 hours as needed for dry cough. He was instructed not to drive while taking the cough syrup. He will follow-up with Dr. Juan De La Vega iii in the office in 7-10 days. Smoking cessation was advised. Alert and oriented x3, no apparent distress Heart-regular rate and rhythm, no gallop Lungs-diminished but clear to auscultation throughout, not tachypneic, no conversational dyspnea, no accessory muscle use Abdomen-soft, nontender, nondistended, normal bowel sounds..... He has had good oral intake and took 2690 cc overnight without nausea/vomiting/diarrhea. No peripheral edema This note was generated with [employer] dictation software. It may contain incorrect words, spelling, and punctuation that were not noted in checking the note before signing. Patient Problems: Active and Suspected Problems (Last Updated 05/24/18 @ 14:48 by Kana Khan MD) COPD exacerbation (Acute) - Physical Exam Vital Signs Temp Pulse Resp BP Pulse Ox 98.6 F 89 18 129/75 H 93 09/21/18 14:04 09/21/18 14:04 09/21/18 14:04 09/21/18 14:04 09/21/18 14:04 Oxygen Flow Rate (L/min) 2 Oxygen Delivery Method Room Air Weight: 213 lb 13.574 oz Body Mass Index (BMI) 33.2 Intake and Output for Last 24 Hours 09/19/18 09/20/18 09/21/18 23:59 23:59 23:59 Intake Total 3855 / 3855 Output Total 400 / 400 Balance 3455 / 3455 Microbiology Past 72 Hours 09/20/18 20:56 Gram Stain - Final Sputum, Expectorated/Coughed Respiratory Culture - Preliminary Appears to be normal respiratory zhang. Further studies to follow. 09/20/18 19:35 Respiratory Panel (PCR) - Final Mucosa - Nasopharyngeal 09/20/18 14:52 Influenza Types A,B Direct FA (PAT) - Final Mucosa - Nasopharyngeal Laboratory Tests Past 24 Hrs 09/20/18 09/20/18 09/21/18 13:20 13:20 05:25 WBC 4.4 RBC 4.10 L Hgb 12.4 L Hct 38.0 L MCV 92.7 MCH 30.2 MCHC 32.6 RDW 13.5 RDW Differential 44.6 H Plt Count 189 MPV 10.0 Immature Gran % (Auto) 0.000 Neut % (Auto) 90.0 H Lymph % (Auto) 8.6 L Sibley % (Auto) 1.4 Eos % (Auto) 0.0 Baso % (Auto) 0.0 Absolute Neuts (auto) 4.0 Absolute Lymphs (auto) 0.38 L Total Counted Not Reportable Sodium Potassium Chloride Carbon Dioxide Anion Gap BUN Creatinine Estim Creat Clear Calc Est GFR (MDRD) Af Amer Est GFR (MDRD) Non-Af BUN/Creatinine Ratio Glucose Hemoglobin A1c 6.8 H Calcium Magnesium 1.8 09/21/18 05:25 WBC RBC Hgb Hct MCV MCH MCHC RDW RDW Differential Plt Count MPV Immature Gran % (Auto) Neut % (Auto) Lymph % (Auto) Sibley % (Auto) Eos % (Auto) Baso % (Auto) Absolute Neuts (auto) Absolute Lymphs (auto) Total Counted Sodium 135 L Potassium 3.9 Chloride 102 Carbon Dioxide 20.0 L Anion Gap 13 BUN 29 H Creatinine 1.53 H Estim Creat Clear Calc 42.28 Est GFR (MDRD) Af Amer 59 L Est GFR (MDRD) Non-Af 48 L BUN/Creatinine Ratio 19.0 Glucose 286 H Hemoglobin A1c Calcium 8.3 L Magnesium POC Glucose 09/21/18 09/21/18 09/20/18 11:34 06:34 22:55 POC Glucose 195 H 227 H 253 H Discharge Activity: May not drive while taking narcotic pain medications. - This includes the cough medication you are being sent home with Call your doctor if you observe: Fever of 101 or Higher, Shortness of breath, Dizziness, Fainting spells, Chest pain, - - worsening symptoms Home Medications: Medications to take at Discharge Nitroglycerin [Nitrostat] 0.4 mg SUBLINGUAL Q5M PRN 09/17/15 Isosorbide Mononitrate [Imdur] 30 mg PO DAILY 02/18/17 Albuterol Aerosols [Ventolin Aerosols] 2.5 mg INHALATION Q4H PRN PRN 02/23/17 albuterol sulfate HFA 90 mcg/actuation aerosol inhaler 2 puff INHALATION Q4H PRN g 07/31/17 Pantoprazole Sodium [Protonix] 40 mg PO DAILY 11/15/17 umeclidinium 62.5 mcg-vilanterol 25 mcg/actuation powdr for inhalation 1 inh INHALATION DAILY #60 ea MDD copd 02/05/18 Metoprolol Succinate [Toprol Xl] 100 mg PO DAILY 05/20/18 Lisinopril [Zestril] 2.5 mg PO DAILY 05/21/18 Rosuvastatin Calcium [Crestor] 40 mg PO DAILY 06/16/18 Spironolactone 25 mg PO DAILY 06/16/18 Clopidogrel Bisulfate [Plavix] 75 mg PO DAILY 09/01/18 Furosemide 40 mg PO DAILY 09/01/18 Allopurinol 300 mg PO DAILY 09/20/18 Aspirin E.C. [Ecotrin] 325 mg PO DAILY@0800 09/20/18 Hydrocodone Bit/Homatropine [Hycodan Syrup] 5 ml GT Q6H PRN PRN 7 Days #90 mls 09/21/18 Nicotine [Nicoderm Cq] 21 mg TRANSDERM. DAILY #28 patch 09/21/18 Prednisone 10 mg PO UD #30 tab 09/21/18 Following Prescrptions Were Given to Patient: Hydrocodone Bit/Homatropine [Hycodan Syrup] 5 ml GT Q6H PRN PRN 7 Days #90 mls PRN Reason: dry cough Nicotine [Nicoderm Cq] 21 mg TRANSDERM. DAILY #28 patch Prednisone 10 mg PO UD #30 tab Primary Care Physician: Juan De La Vega III, MD [Primary Care Provider] - Please follow up with your Primary Care Physician in: 7-10 days Disposition: Home Minutes spent on discharge:: 30 Patient Condition:: Stable Medical Necessity - Tobacco Use Smoking Status: Current every day smoker Tobacco Use: Cigarettes Meaningful Use Info Meaningful Use Diagnoses (Choose all that apply): None applicable Code Visit OBSV E&M: 51302 Observation care discharge
== END 2018-09-21 13:55 | disposition home or self-care (01) ==
LOC: ED 14:15 → MS3 16:48
PROVIDERS: Admitting Provider Family Medicine; Emergency Provider Emergency Medicine; Family Provider Family Medicine; PCP Family Medicine; Referring Provider Family Medicine; Visit Provider Internal Medicine
DX: R07.89 Other chest pain (principal); J44.1 Chronic obstructive pulmonary disease with (acute) exacerbation; E66.9 Obesity, unspecified; K21.9 Gastro-esophageal reflux disease without esophagitis; E78.5 Hyperlipidemia, unspecified; E11.22 Type 2 diabetes mellitus with diabetic chronic kidney disease; I13.0 Hypertensive heart and chronic kidney disease with heart failure and stage 1 through stage 4 chronic kidney disease, or unspecified chronic kidney disease; N18.3 Chronic kidney disease, stage 3 (moderate); I25.10 Atherosclerotic heart disease of native coronary artery without angina pectoris; F17.210 Nicotine dependence, cigarettes, uncomplicated; I95.9 Hypotension, unspecified; I50.22 Chronic systolic (congestive) heart failure; Z95.810 Presence of automatic (implantable) cardiac defibrillator; Z79.899 Other long term (current) drug therapy; Z79.02 Long term (current) use of antithrombotics/antiplatelets; Z79.82 Long term (current) use of aspirin; Z68.34 Body mass index [BMI] 34.0-34.9, adult; Z71.3 Dietary counseling and surveillance
CPT/HCPCS: 36415; 71045; 71046; 80048; 82962; 83036; 83735; 84484; 85025; 87070; 87205; 87633; 87804; 93005; 94640; 94667; 96361; 96372; 96374; 96375; 96376; 97802; 99218; 99285; J7030; J7040; A4216; G0378

== ENCOUNTER 2018-10-06 06:59 | Inpatient (IN) | payer MEDICARE, SELFPAY ==
[2018-09-20 17:14] VITALS: BMI 33.2
[2018-10-06] VITALS (16 sets, daily range): BP systolic 85–117; BP diastolic 41–91; PULSE 71–94; RESP 12–26; TEMP 36.2–37.7; O2SAT 90–95; BMI 31.1; BMI 28.9
--- NOTE | 2018-10-06 07:08 | RAD_ITS ---
STUDY: X-RAY CHEST REASON FOR EXAM: Male, 68 years old. Cough x3 weeks. TECHNIQUE: AP upright portable view. COMPARISON: 09/21/2018. FINDINGS: Dual-chamber pacing lead tips remain in the right atrium and right ventricle. Calcified granuloma in the right middle lobe is unchanged. Mild emphysema of the right upper lobe more than the left upper lobe. No confluent infiltrates. No suspicious pulmonary nodules. There is no demonstrated pleural abnormality. Normal size heart. Median sternotomies from prior CABG procedure. Normal serjio. Normal visualized pulmonary arteries. Normal visualized aortic arch and descending thoracic aorta. Normal visualized thoracic spine. Normal visualized ribs, clavicles, and shoulders. There is no demonstrated abnormality of the visualized soft tissue structures of the upper abdomen. RAD/Chest 1 View (Portable) IMPRESSION: 1. No acute cardiopulmonary pathology. 2. 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 High resolution CT chest will be helpful for further evaluation if desired. 3. No significant interval change when compared to 09/21/2018. Electronically Signed: Davi Mendoza MD at 9:00 EDT , Service support ,
--- NOTE | 2018-10-06 07:08 | EKG12_ITS ---
Test Reason : Blood Pressure : / mmHG Vent. Rate : 092 BPM Atrial Rate : 092 BPM P-R Int : 138 ms QRS Dur : 114 ms QT Int : 396 ms P-R-T Axes : 059 004 121 degrees QTc Int : 489 ms Normal sinus rhythm ST & T wave abnormality, consider lateral ischemia Prolonged QT Abnormal ECG Confirmed by SHAVONNE LUNDBERG, LISA ([id number]), society editor LANDRY YARBROUGH ([id number]) on 10/08/2018 8:37:36 AM Referred By: TAYLOR Confirmed By:LISA MARVIN MD
--- NOTE | 2018-10-06 07:08 | CT_ITS ---
STUDY: CT ABDOMEN AND PELVIS WITH CONTRAST REASON FOR EXAM: Male, 68 years old. Nausea, vomiting and diarrhea x1 week. RADIATION DOSAGE (If Supplied By Facility): CTDIvol = ( 16.99 ) mGy, DLP = ( 1162.78 ) mGycm TECHNIQUE: Transaxial images were obtained from the dome of the diaphragm to the symphysis pubis without oral contrast. Isovue 300 75 IV was administered. Sagittal and coronal images were reconstructed. Individualized dose optimization techniques were used for this CT. COMPARISON: None. FINDINGS: New interstitial infiltrates in the right lower lobe. Cardiomegaly is unchanged. No pericardial fluid. Normal liver. Normal gallbladder and extrahepatic biliary system. Normal spleen. Normal pancreas. Normal bilateral adrenal glands. Normal right kidney. Normal left kidney. Normal visualized stomach. Normal small intestine. Normal colon. The appendix is visualized and appears normal. Atherosclerotic calcifications along the abdominal aorta and iliac arteries. Normal inferior vena cava. Normal retroperitoneum. Mild thickening of the urinary bladder wall. Normal abdominal wall. Multilevel pronounced degenerative disc space height narrowing with degenerative vacuum phenomenon at L1-L2, L2-L3, L3-L4 and L5-S1 disc space levels. No acute osseous abnormality. CT/Abdomen/Pelvis W IV Cont ONLY IMPRESSION: 1. Right lower lobe interstitial pneumonitis, new when compared to 06/16/2018. 2. Mild thickening of the urinary bladder wall is also a new finding. 3. No suspicious mass or acute abnormality in the abdomen and pelvis. 4. Pronounced multilevel degenerative disc space narrowing with degenerative vacuum phenomenon at L1-L2, L2-L3, L3-L4 and L5-S1 disc space levels. 5. No other additional findings or changes when compared to 06/16/2018. Electronically Signed: Davi Mendoza MD at 9:09 EDT , Service support ,
--- NOTE | 2018-10-06 07:08 | ED.RN ---
PT TOLD ER DR THAT HE HAS HAD A COUGH X 3 WEEKS. DENIES FEVER. STATES HAD ONE EPISODE OF DIARRHEA THIS MORNING AND DENIES VOMITING. FELT NAUSEATED THIS MORNING.
--- NOTE | 2018-10-06 07:20 | ED.DCSUM_ITS ---
- ER Visit Summary Date of Service: 10/06/18 Chief Complaint: Cough, diarrhea History of Present Illness: The patient is a 68 M with multiple complaints who presents to the emergency department with cough and diarrhea. The patient does have a history of COPD. He is not on oxygen at home. He does continue to smoke. He was recently admitted for a COPD exacerbation. He states since then, he has not been himself. He states he has had persistent cough with productive sputum. He admits to fevers and chills. He admits to exertional dyspnea. He has not had chest pain though. States today, he had explosive diarrhea. He states he is also been feeling nauseated and has had some abdominal pain. Luis arambula does have a history of four-vessel CABG. He had no other abdominal surgery. He does state he is been compliant with his medications. Physical Examination: Vital signs reviewed General: Well-nourished, well-developed Head: Normocephalic, atraumatic Eyes: Pupils equal and reactive, extraocular muscles intact Neck, supple, no lymphadenopathy Heart: Regular rate and rhythm Respiratory: No distress, wheezing throughout focal change in the right Abdomen: Soft, mildly tender in the left lower quadrant without rebound or guarding, nondistended, no peritoneal signs Back: Nontender Extremities: Nontender, no edema, no cords Skin: Normal color no rash Neuro: Alert and oriented, no focal or lateralizing deficits Test Results: [] Emergency Department Course and Treatment: The patient's symptoms do seem primarily infectious. IV was established. Patient's blood pressure was borderline. However, his maps greater than 65. He was given IV fluids. Screening labs were obtained. He does have a leukocytosis of 17,000. He did finish his steroids 10 days ago. He also has mild renal insufficiency which do es appear to be acute on chronic. Cardiac enzymes are normal. EKG does not demonstrate any acute ischemic change compared to prior. Patient's lactate was normal. Blood cultures were obtained. Chest x-ray does not show any definite infiltrate. I did obtain CT was abdomen pelvis as the patient does have a history of colitis. His abdomen was normal, but he does have a right lower lobe infiltrate. Patient does have COPD and is not on oxygen at home. He is now requiring supplemental oxygen. He has evidence of infection. He has responded to fluids. The patient had blood cultures obtained. He will be given doxycycline and Rocephin. He will be admitted. Treatment Plan: [] Disposition: Admission Impression: 1. Community-acquired pneumonia 2. Hypoxia 3. Sepsis This note was generated with [employer] dictation software. It may contain incorrect words, spelling, and punctuation that were not noted in review of the chart prior to signing ED Disposition - Plan for ED Patient: Referrals: Juan De La Vega III, MD [Primary Care Provider] -
[2018-10-06] MEDS: Morphine 4 MG/ML Syringe IV (07:35)
[2018-10-06] MEDS: 0.9% Normal Saline 1,000 ML 1000 ML IV (07:36)
[2018-10-06] MEDS: Ondansetron 4 MG/2 ML Vial IV (07:36)
[2018-10-06 08:02] LABS: Absolute Lymphocyte Count 1.14 X10^3/ul (0.83-4.51); Absolute Neutrophil Count 14.6 X10^3/uL (2.0-7.7); Basophil# 0.02 X10^3/uL; Basophil% 0.1 % (0-1); Hematocrit 44.7 % (40-54); Hemoglobin 14.5 g/dl (13.0-16.5); Lymphocyte # 1.14 X10^3/ul (4.0); Lymphocyte % 6.7 % (19-41); Mean Corp Hgb Conc 32.4 g/gl (32-36); Mean Corpuscular Hgb 29.8 pg (27.0-32.0); Mean Corpuscular Volume 91.8 fL (80-94); Mean Platelet Vol. 10.5 fl (6.2-12.0); Monocyte# 1.21 X10^3/uL; Monocyte% 7.1 % (0-10); Neutrophil # 14.55 X10^3/uL (2.7-7.7); Neutrophil % 85.9 % (47-70); Platelet Count 242 K/mm3 (150-450); RBC Distribution Width CV 14.3 % (11.6-14.6); Red Blood Count 4.87 M/mm3 (4.6-6.2)
[2018-10-06] MEDS: Ipratropium/Albuterol Sulfate 3 ML AMPUL.NEB INHALATION ×3 (08:02→19:11)
[2018-10-06] MEDS: Albuterol 2.5 MG/3 ML VIAL.NEB. INHALATION (08:02)
[2018-10-06 08:03] LABS: POSITIVE COUNT NO; POSITIVE DIFFERENTIAL NO; POSITIVE MORPHOLOGY NO
[2018-10-06 08:07] LABS: ALB/GLOB Ratio 0.5 RATIO (0.9-2.4); AST(SGOT) 75 U/L (15-37); Alanine Aminotransfer ALT/SGPT 137 U/L (16-61); Albumin, Serum 2.8 g/dL (3.2-5.0); Alkaline Phosphatase 92 U/L (45-117); Anion Gap 11 (5-15); BUN 35 mg/dL (7-18); BUN/Creat Ratio 17.8 RATIO (10-20); Calcium,Total 8.8 mg/dL (8.5-10.1); Chloride 95 mmol/L (98-107); Creatinine, Serum 1.97 mg/dL (0.70-1.30); EST Glomerular Filtration Rate 36 mL/min (>60); Est Glom Filt Rate - Afr Amer 44 mL/min (>60); Globulin 5.1 g/dL (2.2-4.2); Glucose 148 mg/dL (74-106); Potassium 3.8 mmol/L (3.5-5.1); Protein, Total 7.9 g/dL (6.4-8.2); Sodium Level 132 mmol/L (136-145)
[2018-10-06 08:25] LABS: Lactic Acid 1.5 mmol/L (0.4-2.0)
--- NOTE | 2018-10-06 09:27 | NURSING ---
MED SURG KORAM PNEUMONIA, HYPOXIA, SEPSIS
--- NOTE | 2018-10-06 09:55 | HP.PCM_ITS ---
History of Present Illness Date of Admission: 10/06/18 Chief Complaint: general malaise, cough The patient is a 68 year old M with a PMH as listed who was admitted with a complaint of cough, generalized malaise and diarrhea. Patient was recently admitted and managed for COPD exacerbation. He was discharged home but said he had not felt himself since then. He had a persistent cough which was productive of yellowish sputum as well as shortness of breath and wheezing and fever and chills. He also had some diarrhea today and had assisted nausea and abdominal pain. He denied any chest pain, palpitations, right. 3. Review of systems otherwise negative. The ED, he was found to have leukocytosis of 17 but he had just finished a steroid dose. Chest x-ray showed no acute cardiopulmonary pathology with asymmetric emphysematous changes of the left upper lobes with right greater than the left. Abdominopelvic CT done on account of diarrhea and abdominal pain showed no infiltrates in the right lower lobe. He was admitted and is being managed for health assisted pneumonia. On admission to the [facility] floor, patient started complaining of chest pain which he said felt like someone was sitting on his chest with assisted lightheadedness. EKG done showed T wave inversions in lateral leads. Initial EKG done was negative. He also be worked up for chest pain to rule out ACS. [] Past Medical History Past Medical History (Chronic Problems): Chronic Problems (Last Updated 05/24/18 @ 14:48 by Kana Khan MD) COPD (chronic obstructive pulmonary disease) (Chronic) Obesity (BMI 30.0-34.9) (Chronic) Nicotine dependence (Chronic) Gout (Chronic) Degenerative cervical disc (Chronic) Claudication (Chronic) Chronic back pain (Chronic) Presence of automatic implantable cardioverter-defibrillator (Chronic) Presence of automatic implantable cardioverter-defibrillator (Chronic) H/O coronary artery bypass surgery (Chronic ~2008) HUMPHREY-LAD, SVG-D1, SVG-OM Chronic renal failure, stage 3 (moderate) (Chronic) Chronic systolic (congestive) heart failure (Chronic) Stented coronary artery (Chronic ~12/2016) has had 7 stents as of 06/15/17 Ischemic cardiomyopathy (Chronic) 25% ejection fraction in November 2016 V-tach (Chronic) has an AICD Benign essential hypertension (Chronic) Gastroesophageal reflux disease (Chronic) Hyperlipidemia (Chronic) Type 2 diabetes mellitus (Chronic) Morbid obesity (Chronic) CAD (coronary artery disease) (Chronic) Medical History: Medical History (Last Updated 05/24/18 @ 14:48 by Kana Khan MD) Nicotine dependence (Chronic) F17.200 Gout (Chronic) M10.9 Degenerative cervical disc (Chronic) M50.30 Claudication (Chronic) I73.9 Chronic back pain (Chronic) M54.9, G89.29 Chronic renal failure, stage 3 (moderate) (Chronic) N18.3 Chronic systolic (congestive) heart failure (Chronic) I50.22 Ischemic cardiomyopathy (Chronic) I25.5 25% ejection fraction in November 2016 V-tach (Chronic) I47.2 has an AICD Benign essential hypertension (Chronic) I10 Gastroesophageal reflux disease (Chronic) K21.9 Hyperlipidemia (Chronic) E78.5 Type 2 diabetes mellitus (Chronic) E11.9 Morbid obesity (Chronic) E66.01 CAD (coronary artery disease) (Chronic) I25.10 Acute non-ST segment elevation myocardial infarction (Resolved) I21.4 Colitis (Inactive) Tinea manus (Inactive) B35.2 Tubular adenoma of colon (Inactive) D12.6 Allergies chlorpromazine HCl [From Thorazine] Allergy (Severe, Verified 09/20/18 13:14) Hives PER PATIENT tramadol HCl [From Ultram] Allergy (Severe, Verified 09/20/18 13:14) Hives PER PATIENT codeine Allergy (Intermediate, Verified 09/20/18 13:14) Hives atorvastatin Adverse Reaction (Intermediate, Verified 09/20/18 13:14) Other LEG PAIN/CRAMPS naproxen Adverse Reaction (Verified 09/20/18 13:14) Upset Stomach promethazine [From Phenergan] Adverse Reaction (Verified 09/20/18 13:14) Other CONFUSION Home Medications: Ambulatory Orders Medication Instructions Recorded Nitroglycerin [Nitrostat] 0.4 mg SUBLINGUAL Q5M PRN 09/17/15 Isosorbide Mononitrate [Imdur] 30 mg PO DAILY 02/18/17 Albuterol Aerosols [Ventolin 2.5 mg INHALATION Q4H PRN PRN 02/23/17 Aerosols] albuterol sulfate HFA 90 2 puff INHALATION Q4H PRN g 07/31/17 mcg/actuation aerosol inhaler Pantoprazole Sodium [Protonix] 40 mg PO DAILY 11/15/17 umeclidinium 62.5 mcg-vilanterol 1 inh INHALATION DAILY #60 ea MDD 02/05/18 25 mcg/actuation powdr for copd inhalation Metoprolol Succinate [Toprol Xl] 100 mg PO DAILY 05/20/18 Lisinopril [Zestril] 2.5 mg PO DAILY 05/21/18 Rosuvastatin Calcium [Crestor] 40 mg PO DAILY 06/16/18 Spironolactone 25 mg PO DAILY 06/16/18 Clopidogrel Bisulfate [Plavix] 75 mg PO DAILY 09/01/18 Furosemide 40 mg PO DAILY 09/01/18 Allopurinol 300 mg PO DAILY 09/20/18 Aspirin E.C. [Ecotrin] 325 mg PO DAILY@0800 09/20/18 Nicotine [Nicoderm Cq] 21 mg TRANSDERM. DAILY #28 patch 09/21/18 Prednisone 10 mg PO UD #30 tab 09/21/18 Surgical History: Surgical History (Last Reviewed 12/15/17 @ 10:18 by Ramonita Alcantar) Presence of automatic implantable cardioverter-defibrillator (Chronic) Z95.810 H/O coronary artery bypass surgery (Chronic) Onset Date: ~2008 Z95.1 HUMPHREY-LAD, SVG-D1, SVG-OM Stented coronary artery (Chronic) Onset Date: ~12/2016 has had 7 stents as of 06/15/17 Hx of hernia repair (Inactive) Z98.890, Z87.19 Previous back surgery (Inactive) Z98.890 Status post left heart catheterization (Inactive) Onset Date: ~12/2016 Z98.890 Surgical History: angioplasty - stents x10, coronary bypass surgery, - - AICD placement, back surgery x 2, hernia repair Psychiatric History: No pertinent psych hx Smoking Status: Current some day smoker - *Family History Paternal Family History: Family History (Last Reviewed 12/15/17 @ 10:18 by Ramonita Alcantar) Brother CAD (coronary artery disease) Myocardial infarction Sudden cardiac Mother Cancer Hypertension Father Cancer COPD (chronic obstructive pulmonary disease) History Items: Cancer, Heart Disease Maternal Family History: Family History (Last Reviewed 12/15/17 @ 10:18 by Ramonita Alcantar) Brother CAD (coronary artery disease) Myocardial infarction Sudden cardiac Mother Cancer Hypertension Father Cancer COPD (chronic obstructive pulmonary disease) History Items: - - Patient notes a paternal family history of chronic lung disease, lung cancer with history of tobacco use. Review of Systems Constitutional: Reports: Anorexia, Fever, Malaise, Weakness, Fatigue Eyes: Denies: Blurred vision HEENT: Denies: Head Aches, Sinus Congestion, Sinus Drainage Cardiovascular: Reports: Chest Pain. Denies: Chest Pressure, Chest Tightness, Edema, Heaviness, Light Headedness, Orthopnea, Palpitations, Paroxysmal Noc. Dyspnea, Syncope Respiratory: Reports: Cough, Pleuritic Pain, Shortness of Breath, Shortness of breath at rest, Shortness of breath upon exertion, Sputum production, Wheezing Gastrointestinal: Reports: Diarrhea. Denies: Abdominal Pain, Nausea, Vomiting Genitourinary: Denies: Dysuria Musculoskeletal: Denies: Joint Pain, Joint Tenderness Skin: Denies: Rash, Wounds Neurological: Denies: Numbness, Tingling, Focal weakness Psychiatric: Denies: Anxiety, Depression, Homicidal Ideations, Suicidal Ideations Hematologic/ Lymphatic: Denies: Easy Bruising, Easy Bleeding VTE Information - Inpt Only VTE Present on Admission: No VTE Pharm Prophylaxis ordered?: Yes - Physical Exam General: Alert, Oriented x3, Cooperative, No apparent distress HEENT: Atraumatic, PERRLA, EOMI, Normocephalic Oral: Dry Mucosa Neck: Supple, No JVD, Negative Carotid Bruits Lungs: Short of Breath, - - lung sound very tight, with wheezing in all lung bui, and rales. No crackles auscultated. Cardiovascular: Regular rate, Regular Rhythm, Normal S1, Normal S2, No murmurs Abdomen: Bowel Sounds Present Extremities: No clubbing, No cyanosis, No edema, Capillary Refill Less than 3 Seconds Skin: No rashes, No breakdown Musculoskeletal: No Tenderness to Palpation of Joints or Extremities Lymphatic: No Cervical, Supraclavicular, or Inguinal Adenopathy Neurological: Cranial nerves II-XII grossly intact, Neuro grossly intact Psych/Mental Status: Normal Affect, Appropriate, Alert and oriented to time, place, person, mood and affect Vital Signs Temp Pulse Resp BP Pulse Ox 98.5 F 84 20 H 110/89 H 92 10/06/18 08:26 10/06/18 08:26 10/06/18 08:26 10/06/18 08:26 10/06/18 08:26 Oxygen Flow Rate (L/min) 3 Oxygen Delivery Method Nasal Cannula Weight: 204 lb 12.951 oz Body Mass Index (BMI) 31.1 Laboratory Tests Past 24 Hrs 10/06/18 10/06/18 10/06/18 07:30 07:30 07:30 WBC 17.0 H RBC 4.87 Hgb 14.5 Hct 44.7 MCV 91.8 MCH 29.8 MCHC 32.4 RDW 14.3 RDW Differential 48.0 H Plt Count 242 MPV 10.5 Immature Gran % (Auto) 0.200 Neut % (Auto) 85.9 H Lymph % (Auto) 6.7 L [place] % (Auto) 7.1 Eos % (Auto) 0.0 Baso % (Auto) 0.1 Absolute Neuts (auto) 14.6 H Absolute Lymphs (auto) 1.14 Total Counted Not Reportable Sodium 132 L Potassium 3.8 Chloride 95 L Carbon Dioxide 26.0 Anion Gap 11 BUN 35 H Creatinine 1.97 H Estim Creat Clear Calc 35.20 Est GFR (MDRD) Af Amer 44 L Est GFR (MDRD) Non-Af 36 L BUN/Creatinine Ratio 17.8 Glucose 148 H Lactic Acid 1.5 Calcium 8.8 Total Bilirubin 0.90 AST 75 H ALT 137 H Alkaline Phosphatase 92 Troponin I 0.031 Total Protein 7.9 Albumin 2.8 L Globulin 5.1 H Albumin/Globulin Ratio 0.5 L Diagnostic Data Abdomen/Pelvis CT 10/06/18 07:08 IMPRESSION: 1. Right lower lobe interstitial pneumonitis, new when compared to 06/16/2018. 2. Mild thickening of the urinary bladder wall is also a new finding. 3. No suspicious mass or acute abnormality in the abdomen and pelvis. 4. Pronounced multilevel degenerative disc space narrowing with degenerative vacuum phenomenon at L1-L2, L2-L3, L3-L4 and L5-S1 disc space levels. 5. No other additional findings or changes when compared to 06/16/2018. Electronically Signed: Davi Mendoza MD at 9:09 EDT , Service support , Chest X-Ray 10/06/18 07:08 IMPRESSION: 1. No acute cardiopulmonary pathology. 2. 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 High resolution CT chest will be helpful for further evaluation if desired. 3. No significant interval change when compared to 09/21/2018. Electronically Signed: Davi Mendoza MD at 9:00 EDT , Service support , Assessment/Plan All Active Problems (Last Updated 05/24/18 @ 14:48 by Kana Khan MD) COPD exacerbation (Acute) Abdominal pain (Resolved) Acute non-ST segment elevation myocardial infarction (Resolved) NSTEMI (non-ST elevated myocardial infarction) (Resolved) Non-STEMI (non-ST elevated myocardial infarction) (Resolved) 68 y/o admitted with a complaint of productive cough and generalised malaise 1. Post viral pneumonia * recently admitted and managed for COPD exacerbation; symptoms however persisted and worsened * has leucocytosis, likely due to steroids * Chest x-ray showed mild COPD with asymmetric emphysema of the upper lobes * Abdominal CT showed right lower lobe infiltrates * Start patient on IV ceftriaxone and doxycycline. Unable to give azithromycin or levofloxacin on account of QT prolongation of 49 ms. * Breathing treatments. IV Solu-Medrol * Guaifenesin to help with cough. * chest physiotherapy * blood cultures, sputum cultures, respiratory panel and urine for stre and legionella Ag ordered. * 2. Chest pain to r/o ACS * started complaining of pressure like chest pain * EKG showed T wave inversions in leads I and aVL. Troponin negative and is 0.031. We will cycle troponins. * SL nitroglycerin as needed * 3. Acute hypoxic respiratory insufficiency due to post viral pneumonia * requiring up to 4L of oxygen; not on oxygen at home * on breathing treatments and steroids. * Chest physiotherapy. Titrate oxygen to maintain saturation more than 90%. * 4. Hyponatremia: na is 132. Likely due to dehydration. Will hydrate with IVF and monitor 5,. CKD 3: Cr is 0.97 which is on her baseline. Will monitor. 6. CAD status post CABG: On aspirin and Plavix as well as imdur 7. hypertension: On metoprolol and lisinopril and spironolactone DVT prophylaxis: lovenox-renally dosed CODE STATUS: DNR CCA * Patient counseled extensively about different types of CODE STATUS including full code, DNR CCA and DNR CCA. Patient elects to be DNRCCA. Total f priscila-to-face time 17 minutes. Code Visit Inpatient E&M: 83144 Init Hosp L3 Procedures: 49940 Advncd Care Plan 30 Min
[2018-10-06] MEDS: MethylPREDNISolone 125 MG/2 ML Vial IV (12:20)
[2018-10-06] MEDS: Ceftriaxone 1 GM/50 ML BAG IV (12:43)
--- NOTE | 2018-10-06 12:47 | EKG12_ITS ---
Test Reason : CP Blood Pressure : / mmHG Vent. Rate : 084 BPM Atrial Rate : 084 BPM P-R Int : 152 ms QRS Dur : 112 ms QT Int : 418 ms P-R-T Axes : 061 -08 130 degrees QTc Int : 493 ms Sinus rhythm with occasional Premature ventricular complexes and Premature atrial complexes ST & T wave abnormality, consider lateral ischemia Prolonged QT Abnormal ECG When compared with ECG of 06-OCT-2018 07:48, MANUAL COMPARISON REQUIRED, DATA IS UNCONFIRMED Confirmed by GERONIMO BLOOM ([id number]), web content editor AYESHA HARRIS ([id number]) on 10/11/2018 5:10:58 PM Referred By: ARIANNA Confirmed By:GERONIMO BLOOM
[2018-10-06] MEDS: Enoxaparin 30 MG/0.3 ML Syringe SC (15:05)
[2018-10-06] MEDS: oxyCODONE 5 MG Tablet 7.5 MG PO (16:45)
[2018-10-06] MEDS: Acetaminophen 325 MG Tablet 650 MG PO (16:46)
[2018-10-06 17:09] LABS: Red Blood Cells-Urine 0 SEEN /hpf (0-5)
[2018-10-06 17:37] LABS: Color, Urine Yellow (Yellow); Glucose, Dipstick Normal (Normal); Ketone-Dipstick Negative (Negative); Leukocyte Esterase-Dipstick Negative /ul (Negative); Nitrite-Dipstick Negative (Negative); Occult Blood-Urine 25 /ul (Negative); Protein-Dipstick 30 mg/dl (Negative); Urine Bilirubin Dipstick Negative (Negative); Urine Clarity Sl. Cloudy (Clear); Urine Urobilinogen Normal (Normal)
[2018-10-06] MEDS: Furosemide 40 MG Tablet PO (17:42)
[2018-10-06] MEDS: Aspirin E.C. 325 MG Tablet PO (17:42)
[2018-10-06 18:05] LABS: Bacteria 2+ /hpf (None Seen); Fine Granular Cast- Urine 0-5 SEEN /lpf (0-5); Hyaline Cast 0-5 SEEN /lpf (0-5); Mucous, Urine 1+ /hpf (<or=2+); Squamous Epithelial Cells - UA 0-5 SEEN /hpf (0-5); White Blood Cells 0-5 SEEN /hpf (0-5)
[2018-10-06] MEDS: Rosuvastatin 20 MG Tablet 40 MG PO (21:21)
[2018-10-06] MEDS: guaiFENesin 1,200 MG Tablet 1200 MG PO (21:21)
[2018-10-07] VITALS (18 sets, daily range): BP systolic 102–133; BP diastolic 55–76; PULSE 60–89; RESP 18–22; TEMP 36.1–36.8; O2SAT 90–98
[2018-10-07] MEDS: oxyCODONE 5 MG Tablet 7.5 MG PO ×3 (00:39→14:01)
[2018-10-07 06:16] LABS: Anion Gap 13 (5-15); BUN 38 mg/dL (7-18); BUN/Creat Ratio 19.8 RATIO (10-20); Calcium,Total 8.7 mg/dL (8.5-10.1); Chloride 98 mmol/L (98-107); Creatinine, Serum 1.92 mg/dL (0.70-1.30); EST Glomerular Filtration Rate 37 mL/min (>60); Est Glom Filt Rate - Afr Amer 45 mL/min (>60); Estimated Creatinine Clearance 37.33 ml/min; Glucose 273 mg/dL (74-106); Potassium 3.3 mmol/L (3.5-5.1); Sodium Level 134 mmol/L (136-145)
[2018-10-07 06:30] LABS: Absolute Lymphocyte Count 0.57 X10^3/ul (0.83-4.51); Absolute Neutrophil Count 6.5 X10^3/uL (2.0-7.7); Basophil# 0.01 X10^3/uL; Basophil% 0.1 % (0-1); Hematocrit 42.8 % (40-54); Hemoglobin 13.7 g/dl (13.0-16.5); Lymphocyte # 0.57 X10^3/ul (4.0); Lymphocyte % 7.8 % (19-41); Mean Corpuscular Volume 93.7 fL (80-94); Monocyte# 0.22 X10^3/uL; Neutrophil # 6.48 X10^3/uL (2.7-7.7); Platelet Count 194 K/mm3 (150-450); RBC Distribution Width SD 47.8 fl (35.1-43.9); Red Blood Count 4.57 M/mm3 (4.6-6.2); White Blood Count 7.3 K/mm3 (4.4-11.0)
[2018-10-07 06:34] LABS: Differential Indicated SCAN CRITERIA MET; POSITIVE COUNT NO; POSITIVE DIFFERENTIAL YES; POSITIVE MORPHOLOGY NO
[2018-10-07] MEDS: Ipratropium/Albuterol Sulfate 3 ML AMPUL.NEB INHALATION ×4 (06:58→19:19)
[2018-10-07 07:48] LABS: Absolute Neutrophil Count 8.1 X10^3/uL (2.0-7.7); Hematocrit 41.9 % (40-54); Hemoglobin 13.6 g/dl (13.0-16.5); Lymphocyte % 7.6 % (19-41); Mean Corp Hgb Conc 32.5 g/gl (32-36); Mean Corpuscular Hgb 29.3 pg (27.0-32.0); Mean Corpuscular Volume 90.3 fL (80-94); Mean Platelet Vol. 9.8 fl (6.2-12.0); Monocyte# 0.36 X10^3/uL; Monocyte% 3.9 % (0-10); Neutrophil # 8.09 X10^3/uL (2.7-7.7); Neutrophil % 88.3 % (47-70); Platelet Count 223 K/mm3 (150-450); RBC Distribution Width CV 13.6 % (11.6-14.6); Red Blood Count 4.64 M/mm3 (4.6-6.2); White Blood Count 9.2 K/mm3 (4.4-11.0)
[2018-10-07 07:52] LABS: POSITIVE COUNT NO; POSITIVE DIFFERENTIAL NO; POSITIVE MORPHOLOGY NO
[2018-10-07 08:12] LABS: Anion Gap 8 (5-15); BUN 40 mg/dL (7-18); BUN/Creat Ratio 21.4 RATIO (10-20); Calcium,Total 8.9 mg/dL (8.5-10.1); Chloride 97 mmol/L (98-107); Creatinine, Serum 1.87 mg/dL (0.70-1.30); EST Glomerular Filtration Rate 38 mL/min (>60); Est Glom Filt Rate - Afr Amer 47 mL/min (>60); Estimated Creatinine Clearance 38.33 ml/min; Glucose 231 mg/dL (74-106); Potassium 3.2 mmol/L (3.5-5.1); Sodium Level 132 mmol/L (136-145)
--- NOTE | 2018-10-07 08:19 | CT_ITS ---
STUDY: CT CHEST WITHOUT CONTRAST REASON FOR EXAM: Male, 68 years old. Cough and COPD. Prior myocardial infarction and stents. RADIATION DOSAGE (If Supplied By Facility): CTDIvol = ( 19.14 ) mGy, DLP = ( 693.39 ) mGycm TECHNIQUE: Transaxial imaging was performed without the administration of intravenous contrast material. Multiplanar coronal and sagittal images were reformatted. Individualized dose optimization techniques were used for this CT. COMPARISON: Comparison is made with prior study dated June 16, 2018. FINDINGS: A left-sided double-lumen pacemaker is seen. There now is evidence of bibasilar pulmonary infiltrates worse on the right side there is evidence of a emphysematous changes involving both lungs. There is no demonstrated pleural abnormality. There are calcifications of the coronary arteries. Sternal cerclage wires and vascular clips are present from a prior sternotomy and coronary artery bypass graft procedure (CABG). There are multiple small lymph nodes within the mediastinum, which are normal in size and morphology most compatible with reactive lymph hyperplasia. Normal hilar regions. Normal unenhanced pulmonary arteries. There is atherosclerotic calcification of the aortic arch with tortuosity and elongation of the aortic arch and descending thoracic aorta. There are mild degenerative changes of the thoracic spine. Healed right sixth and seventh rib fractures. There is no demonstrated abnormality of the visualized upper abdomen. CT/Chest without Contrast IMPRESSION: Bibasilar pulmonary infiltrates worse on the right side. Follow-up is recommended. Electronically Signed: Arcenio Leary, at 9:51 EDT , Service support ,
[2018-10-07] MEDS: Aspirin E.C. 325 MG Tablet PO (09:18)
[2018-10-07] MEDS: Allopurinol 300 MG Tablet PO (09:18)
[2018-10-07] MEDS: Spironolactone 25 MG Tablet PO (09:18)
[2018-10-07] MEDS: Enoxaparin 30 MG/0.3 ML Syringe SC (09:19)
[2018-10-07] MEDS: Isosorbide Mononitrate 30 MG Tablet PO (09:19)
[2018-10-07] MEDS: guaiFENesin 1,200 MG Tablet 1200 MG PO ×2 (09:19→21:20)
[2018-10-07] MEDS: Furosemide 40 MG Tablet PO (09:19)
[2018-10-07] MEDS: Clopidogrel Bisulfate 75 MG Tablet PO (09:20)
[2018-10-07] MEDS: Pantoprazole Sodium 40 MG Tablet PO (09:20)
[2018-10-07] MEDS: Metoprolol(XL)Succ 100 MG Tablet PO (09:20)
[2018-10-07] MEDS: Lisinopril 2.5 MG Tablet PO (09:21)
--- NOTE | 2018-10-07 09:40 | CASEMGMT ---
LEONIE JEAN-BAPTISTE NOTE: To room to talk with pt. Sitting up in room beside bed. Reviewed WAY form with pt, questions answered, and form signed by pt. Copy made and placed on chart and pt given original. Luca SAUCEDO RN CM
--- NOTE | 2018-10-07 10:11 | PCM.PN.HOSP ---
Subjective: Patient seen and examined. He still feels horrible and shortness of breath has not resolved. He is also wheezing badly and still coughing. He is requiring 4 L of oxygen this morning. He denied any fever or chills, palpitations or dizziness, abdominal pain, diarrhea vomiting. Review of systems otherwise negative. Vitals/I&O's: Vital Signs Temp Pulse Resp BP Pulse Ox 98.2 F 60 18 124/68 H 93 10/07/18 08:45 10/07/18 09:20 10/07/18 08:45 10/07/18 08:45 10/07/18 08:45 Oxygen Flow Rate (L/min) 4 Oxygen Delivery Method Nasal Cannula Weight: 195 lb 12.328 oz Body Mass Index (BMI) 28.9 Intake and Output for Last 24 Hours 10/05/18 10/06/18 10/07/18 23:59 23:59 23:59 Intake Total 1000 / 1000 Balance 1000 / 1000 General: Alert, Oriented x3, Cooperative, mildly distressed HEENT: Atraumatic, PERRLA, EOMI, Normocephalic Oral: Dry Mucosa Neck: Supple, No JVD, Negative Carotid Bruits Lungs: Short of Breath, - -still has coarse wheezing in all lung bui, mild bilateral crackles. on 4L of oxygen Cardiovascular: Regular rate, Regular Rhythm, Normal S1, Normal S2, No murmurs Abdomen: Bowel Sounds Present Extremities: No clubbing, No cyanosis, No edema, Capillary Refill Less than 3 Seconds Skin: No rashes, No breakdown Musculoskeletal: No Tenderness to Palpation of Joints or Extremities Lymphatic: No Cervical, Supraclavicular, or Inguinal Adenopathy Neurological: Cranial nerves II-XII grossly intact, Neuro grossly intact Psych/Mental Status: Normal Affect, Appropriate, Alert and oriented to time, place, person, mood and affect Microbiology Past 72 Hours 10/06/18 17:00 Sputum, Expectorated/Coughed Gram Stain - Preliminary 10/06/18 16:50 Urine, Clean Catch Legionella Antigen - Final 10/06/18 16:50 Urine, Clean Catch Streptococcus pneumoniae Antigen (M - Final Laboratory Results 10/06/18 13:45: Troponin I 0.032 10/06/18 16:15: Troponin I 0.019 10/06/18 16:50: Urine Color Yellow, Urine Clarity Sl. Cloudy, Urine pH 5.0, Ur Specific [place] 1.020, Urine Protein 30 H, Urine Glucose (UA) Normal, Urine Ketones Negative, Urine Occult Blood 25 H, Urine Nitrite Negative, Urine Bilirubin Negative, Urine Urobilinogen Normal, Ur Leukocyte Esterase Negative, Urine RBC 0 SEEN, Urine WBC 0-5 SEEN, Ur Squamous Epith Cells 0-5 SEEN, Urine Bacteria 2+, Hyaline Casts 0-5 SEEN, Fine Granular Casts 0-5 SEEN, Urine Mucus 1+ 10/06/18 19:30: Troponin I 0.015 10/07/18 05:14: WBC 7.3, RBC 4.57 L, Hgb 13.7, Hct 42.8, MCV 93.7, MCH 30.0, MCHC 32.0, RDW 14.0, RDW Differential 47.8 H, Plt Count 194, MPV 10.0, Immature Gran % (Auto) 0.100, Neut % (Auto) 89.0 H, Lymph % (Auto) 7.8 L, [place] % (Auto) 3.0, Eos % (Auto) 0.0, Baso % (Auto) 0.1, Absolute Neuts (auto) 6.5, Absolute Lymphs (auto) 0.57 L, Total Counted Not Reportable 10/07/18 05:14: Sodium 134 L, Potassium 3.3 L, Chloride 98, Carbon Dioxide 23.0, Anion Gap 13, BUN 38 H, Creatinine 1.92 H, Estim Creat Clear Calc 37.33, Est GFR (MDRD) Af Amer 45 L, Est GFR (MDRD) Non-Af 37 L, BUN/Creatinine Ratio 19.8, Glucose 273 H, Calcium 8.7 10/07/18 07:30: WBC 9.2, RBC 4.64, Hgb 13.6, Hct 41.9, MCV 90.3, MCH 29.3, MCHC 32.5, RDW 13.6, RDW Differential 45.0 H, Plt Count 223, MPV 9.8, Immature Gran % (Auto) 0.200, Neut % (Auto) 88.3 H, Lymph % (Auto) 7.6 L, [place] % (Auto) 3.9, Eos % (Auto) 0.0, Baso % (Auto) 0.0, Absolute Neuts (auto) 8.1 H, Absolute Lymphs (auto) 0.70 L, Total Counted Not Reportable 10/07/18 07:30: Sodium 132 L, Potassium 3.2 L, Chloride 97 L, Carbon Dioxide 27.0, Anion Gap 8, BUN 40 H, Creatinine 1.87 H, Estim Creat Clear Calc 38.33, Est GFR (MDRD) Af Amer 47 L, Est GFR (MDRD) Non-Af 38 L, BUN/Creatinine Ratio 21.4 H, Glucose 231 H, Calcium 8.9 Diagnostic Data Abdomen/Pelvis CT 10/06/18 07:08 IMPRESSION: 1. Right lower lobe interstitial pneumonitis, new when compared to 06/16/2018. 2. Mild thickening of the urinary bladder wall is also a new finding. 3. No suspicious mass or acute abnormality in the abdomen and pelvis. 4. Pronounced multilevel degenerative disc space narrowing with degenerative vacuum phenomenon at L1-L2, L2-L3, L3-L4 and L5-S1 disc space levels. 5. No other additional findings or changes when compared to 06/16/2018. Electronically Signed: Davi Mednoza MD at 9:09 EDT , Service support , Chest X-Ray 10/06/18 07:08 IMPRESSION: 1. No acute cardiopulmonary pathology. 2. 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 High resolution CT chest will be helpful for further evaluation if desired. 3. No significant interval change when compared to 09/21/2018. Electronically Signed: Davi Mendoza MD at 9:00 EDT , Service support , Chest CT 10/07/18 08:19 IMPRESSION: Bibasilar pulmonary infiltrates worse on the right side. Follow-up is recommended. Electronically Signed: Arcenio Leary, at 9:51 EDT , Service support , Current Medications Acetaminophen (Tylenol) 650 mg PO Q6H PRN PRN PRN Reason: PAIN Last Admin: 10/06/18 16:46 Dose: 325 mg Albuterol/Ipratropium (Duoneb) 3 ml INHALATION Q4HWA.RT [facility] Last Admin: 10/07/18 06:58 Dose: 3 ml Allopurinol (Zyloprim) 300 mg PO DAILYCM [facility] Last Admin: 10/07/18 09:18 Dose: 300 mg Aspirin (Ecotrin) 325 mg PO DAILY@0800 [facility] Last Admin: 10/07/18 09:18 Dose: 325 mg Clopidogrel Bisulfate (Plavix) 75 mg PO DAILY [facility] Last Admin: 10/07/18 09:20 Dose: 75 mg Enoxaparin Sodium (Lovenox) 30 mg SC DAILY@1000 [facility] Last Admin: 10/07/18 09:19 Dose: 30 mg Furosemide (Lasix) 40 mg PO DAILY [facility] Last Admin: 10/07/18 09:19 Dose: 40 mg Guaifenesin (Mucinex) 1,200 mg PO BID [facility] Last Admin: 10/07/18 09:19 Dose: 1,200 mg Ceftriaxone Sodium (Rocephin) 1 gm in 50 mls @ 100 mls/hr IV Q24 [facility] Doxycycline Hyclate 100 mg/ (Dextrose) 260 mls @ 250 mls/hr IV Q12 [facility] Last Admin: 10/07/18 09:20 Dose: 250 mls/hr Isosorbide Mononitrate (Imdur) 30 mg PO DAILY [facility] Last Admin: 10/07/18 09:19 Dose: 30 mg Lisinopril (Zestril) 2.5 mg PO DAILY [facility] Last Admin: 10/07/18 09:21 Dose: 2.5 mg Magnesium Hydroxide (Milk Of Magnesia) 30 ml PO DAILY PRN PRN PRN Reason: Constipation Methylprednisolone (Solu-Medrol) 40 mg IV Q8 [facility] Last Admin: 10/07/18 06:19 Dose: 40 mg Metoprolol Succinate (Toprol Xl (Beta Sina)) 100 mg PO DAILY [facility] Last Admin: 10/07/18 09:20 Dose: 100 mg Nicotine (Nicoderm Cq (Pbkc)) 21 mg TRANSDERM. DAILY [facility] Last Admin: 10/07/18 09:19 Dose: 21 mg Nitroglycerin (Nitrostat) 0.4 mg SUBLINGUAL Q5M PRN PRN Reason: Chest Pain Nutritional Formula (Lactose Free) (Ensure Enlive) 120 ml PO 4X/DAY [facility] Last Admin: 10/07/18 07:24 Dose: 120 ml Oxycodone HCl (Oxyir) 7.5 mg PO 4X/DAY PRN PRN Reason: PAIN Last Admin: 10/07/18 07:24 Dose: 7.5 mg Pantoprazole Sodium (Protonix) 40 mg PO DAILY [facility] Last Admin: 10/07/18 09:20 Dose: 40 mg Rosuvastatin Calcium (Crestor) 40 mg PO QHS [facility] Last Admin: 10/06/18 21:21 Dose: 40 mg Spironolactone (Aldactone) 25 mg PO DAILY [facility] Last Admin: 10/07/18 09:18 Dose: 25 mg Medical Necessity - Tobacco Use Smoking Status: Current some day smoker Assessment/Plan All Active Problems (Last Updated 05/24/18 @ 14:48 by Kana Khan MD) COPD exacerbation (Acute) Abdominal pain (Resolved) Acute non-ST segment elevation myocardial infarction (Resolved) NSTEMI (non-ST elevated myocardial infarction) (Resolved) Non-STEMI (non-ST elevated myocardial infarction) (Resolved) 68 y/o admitted with a complaint of productive cough and generalised malaise 1. 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 Breathing treatments and IV salmeterol. Early on IV ceftriaxone and doxycycline. Had mild QT prolongation and so unable to give azithromycin or levofloxacin. On guaifenesin. Chest CT obtained this morning showed bibasilar pulmonary infiltrates worse on the right side with evidence of emphysematous changes involving both lungs. Multiple lymph nodes in the mediastinum which are normal in size and morphology and compatible with reactive lymph hyperplasia. respiratory panel pending; blood and sputum cultures also pending. 2. Chest pain, likely pleuritic still complaining of chest pain. Troponins were not elevated. Worsened by coughing EKG showed T wave inversions in leads I and aVL which were also present on EKG from August 2018. Po aspirin 81mg daily. SL nitroglycerin as needed 3. Acute hypoxic respiratory insufficiency due to post viral pneumonia and bronchial hyperresponsiveness still needing 4L of oxygen. on breathing treatments and steroids. Chest physiotherapy. Titrate oxygen to maintain saturation more than 90%. 4. Hypokalemia: Potassium is 3.2 today. We will replace and monitor. 5. Hyponatremia: Na is still 132.WIll check BNP to ensure there is no fluid overload contributing to hyponatremia 6. CKD 3: Cr is 1.87 today. baseline is ~ 1.97. WIll monitor 7. Chronic HFrEF; EF is 25%, per echo done in 2017. on PO lasix 40mg daily. BNP pending. Also has a pacemaker in place. 8. CAD s/p CABG: on aspirin, plavix and imdur. 9. Hypertension: On metoprolol, lisinopril and spironolactone. 10. CKD 3: Cr is 0.97 which is on her baseline. Will monitor. 11. CAD status post CABG: On aspirin and Plavix as well as imdur 12. hypertension: On metoprolol and lisinopril and spironolactone DVT prophylaxis: lovenox-renally dosed Code Visit Inpatient E&M: [id number] [place] [id number]
--- NOTE | 2018-10-07 10:26 | PN_ITS ---
Subjective: Patient seen and examined. He still feels horrible and shortness of breath has not resolved. He is also wheezing badly and still coughing. He is requiring 4 L of oxygen this morning. He denied any fever or chills, palpitations or dizziness, abdominal pain, diarrhea vomiting. Review of systems otherwise negative. Vitals/I&O's: Vital Signs Temp Pulse Resp BP Pulse Ox 98.2 F 60 18 124/68 H 93 10/07/18 08:45 10/07/18 09:20 10/07/18 08:45 10/07/18 08:45 10/07/18 08:45 Oxygen Flow Rate (L/min) 4 Oxygen Delivery Method Nasal Cannula Weight: 195 lb 12.328 oz Body Mass Index (BMI) 28.9 Intake and Output for Last 24 Hours 10/05/18 10/06/18 10/07/18 23:59 23:59 23:59 Intake Total 1000 / 1000 Balance 1000 / 1000 General: Alert, Oriented x3, Cooperative, mildly distressed HEENT: Atraumatic, PERRLA, EOMI, Normocephalic Oral: Dry Mucosa Neck: Supple, No JVD, Negative Carotid Bruits Lungs: Short of Breath, - -still has coarse wheezing in all lung bui, mild bilateral crackles. on 4L of oxygen Cardiovascular: Regular rate, Regular Rhythm, Normal S1, Normal S2, No murmurs Abdomen: Bowel Sounds Present Extremities: No clubbing, No cyanosis, No edema, Capillary Refill Less than 3 Seconds Skin: No rashes, No breakdown Musculoskeletal: No Tenderness to Palpation of Joints or Extremities Lymphatic: No Cervical, Supraclavicular, or Inguinal Adenopathy Neurological: Cranial nerves II-XII grossly intact, Neuro grossly intact Psych/Mental Status: Normal Affect, Appropriate, Alert and oriented to time, place, person, mood and affect Microbiology Past 72 Hours 10/06/18 17:00 Sputum, Expectorated/Coughed Gram Stain - Preliminary 10/06/18 16:50 Urine, Clean Catch Legionella Antigen - Final 10/06/18 16:50 Urine, Clean Catch Streptococcus pneumoniae Antigen (M - Final Laboratory Results 10/06/18 13:45: Troponin I 0.032 10/06/18 16:15: Troponin I 0.019 10/06/18 16:50: Urine Color Yellow, Urine Clarity Sl. Cloudy, Urine pH 5.0, Ur Specific [place] 1.020, Urine Protein 30 H, Urine Glucose (UA) Normal, Urine Ketones Negative, Urine Occult Blood 25 H, Urine Nitrite Negative, Urine Bilirubin Negative, Urine Urobilinogen Normal, Ur Leukocyte Esterase Negative, Urine RBC 0 SEEN, Urine WBC 0-5 SEEN, Ur Squamous Epith Cells 0-5 SEEN, Urine Bacteria 2+, Hyaline Casts 0-5 SEEN, Fine Granular Casts 0-5 SEEN, Urine Mucus 1+ 10/06/18 19:30: Troponin I 0.015 10/07/18 05:14: WBC 7.3, RBC 4.57 L, Hgb 13.7, Hct 42.8, MCV 93.7, MCH 30.0, MCHC 32.0, RDW 14.0, RDW Differential 47.8 H, Plt Count 194, MPV 10.0, Immature Gran % (Auto) 0.100, Neut % (Auto) 89.0 H, Lymph % (Auto) 7.8 L, [place] % (Auto) 3.0, Eos % (Auto) 0.0, Baso % (Auto) 0.1, Absolute Neuts (auto) 6.5, Absolute Lymphs (auto) 0.57 L, Total Counted Not Reportable 10/07/18 05:14: Sodium 134 L, Potassium 3.3 L, Chloride 98, Carbon Dioxide 23.0, Anion Gap 13, BUN 38 H, Creatinine 1.92 H, Estim Creat Clear Calc 37.33, Est GFR (MDRD) Af Amer 45 L, Est GFR (MDRD) Non-Af 37 L, BUN/Creatinine Ratio 19.8, Glucose 273 H, Calcium 8.7 10/07/18 07:30: WBC 9.2, RBC 4.64, Hgb 13.6, Hct 41.9, MCV 90.3, MCH 29.3, MCHC 32.5, RDW 13.6, RDW Differential 45.0 H, Plt Count 223, MPV 9.8, Immature Gran % (Auto) 0.200, Neut % (Auto) 88.3 H, Lymph % (Auto) 7.6 L, [place] % (Auto) 3.9, Eos % (Auto) 0.0, Baso % (Auto) 0.0, Absolute Neuts (auto) 8.1 H, Absolute Lymphs (auto) 0.70 L, Total Counted Not Reportable 10/07/18 07:30: Sodium 132 L, Potassium 3.2 L, Chloride 97 L, Carbon Dioxide 27.0, Anion Gap 8, BUN 40 H, Creatinine 1.87 H, Estim Creat Clear Calc 38.33, Est GFR (MDRD) Af Amer 47 L, Est GFR (MDRD) Non-Af 38 L, BUN/Creatinine Ratio 21.4 H, Glucose 231 H, Calcium 8.9 Diagnostic Data Abdomen/Pelvis CT 10/06/18 07:08 IMPRESSION: 1. Right lower lobe interstitial pneumonitis, new when compared to 06/16/2018. 2. Mild thickening of the urinary bladder wall is also a new finding. 3. No suspicious mass or acute abnormality in the abdomen and pelvis. 4. Pronounced multilevel degenerative disc space narrowing with degenerative vacuum phenomenon at L1-L2, L2-L3, L3-L4 and L5-S1 disc space levels. 5. No other additional findings or changes when compared to 06/16/2018. Electronically Signed: Davi Mendoza MD at 9:09 EDT , Service support , Chest X-Ray 10/06/18 07:08 IMPRESSION: 1. No acute cardiopulmonary pathology. 2. 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 High resolution CT chest will be helpful for further evaluation if desired. 3. No significant interval change when compared to 09/21/2018. Electronically Signed: Davi Mendoza MD at 9:00 EDT , Service support , Chest CT 10/07/18 08:19 IMPRESSION: Bibasilar pulmonary infiltrates worse on the right side. Follow-up is recommended. Electronically Signed: Arcenio Leary, at 9:51 EDT , Service support , Current Medications Acetaminophen (Tylenol) 650 mg PO Q6H PRN PRN PRN Reason: PAIN Last Admin: 10/06/18 16:46 Dose: 325 mg Albuterol/Ipratropium (Duoneb) 3 ml INHALATION Q4HWA.RT [facility] Last Admin: 10/07/18 06:58 Dose: 3 ml Allopurinol (Zyloprim) 300 mg PO DAILYCM [facility] Last Admin: 10/07/18 09:18 Dose: 300 mg Aspirin (Ecotrin) 325 mg PO DAILY@0800 [facility] Last Admin: 10/07/18 09:18 Dose: 325 mg Clopidogrel Bisulfate (Plavix) 75 mg PO DAILY [facility] Last Admin: 10/07/18 09:20 Dose: 75 mg Enoxaparin Sodium (Lovenox) 30 mg SC DAILY@1000 [facility] Last Admin: 10/07/18 09:19 Dose: 30 mg Furosemide (Lasix) 40 mg PO DAILY [facility] Last Admin: 10/07/18 09:19 Dose: 40 mg Guaifenesin (Mucinex) 1,200 mg PO BID [facility] Last Admin: 10/07/18 09:19 Dose: 1,200 mg Ceftriaxone Sodium (Rocephin) 1 gm in 50 mls @ 100 mls/hr IV Q24 [facility] Doxycycline Hyclate 100 mg/ (Dextrose) 260 mls @ 250 mls/hr IV Q12 [facility] Last Admin: 10/07/18 09:20 Dose: 250 mls/hr Isosorbide Mononitrate (Imdur) 30 mg PO DAILY [facility] Last Admin: 10/07/18 09:19 Dose: 30 mg Lisinopril (Zestril) 2.5 mg PO DAILY [facility] Last Admin: 10/07/18 09:21 Dose: 2.5 mg Magnesium Hydroxide (Milk Of Magnesia) 30 ml PO DAILY PRN PRN PRN Reason: Constipation Methylprednisolone (Solu-Medrol) 40 mg IV Q8 [facility] Last Admin: 10/07/18 06:19 Dose: 40 mg Metoprolol Succinate (Toprol Xl (Beta Sina)) 100 mg PO DAILY [facility] Last Admin: 10/07/18 09:20 Dose: 100 mg Nicotine (Nicoderm Cq (Pbkc)) 21 mg TRANSDERM. DAILY [facility] Last Admin: 10/07/18 09:19 Dose: 21 mg Nitroglycerin (Nitrostat) 0.4 mg SUBLINGUAL Q5M PRN PRN Reason: Chest Pain Nutritional Formula (Lactose Free) (Ensure Enlive) 120 ml PO 4X/DAY [facility] Last Admin: 10/07/18 07:24 Dose: 120 ml Oxycodone HCl (Oxyir) 7.5 mg PO 4X/DAY PRN PRN Reason: PAIN Last Admin: 10/07/18 07:24 Dose: 7.5 mg Pantoprazole Sodium (Protonix) 40 mg PO DAILY [facility] Last Admin: 10/07/18 09:20 Dose: 40 mg Rosuvastatin Calcium (Crestor) 40 mg PO QHS [facility] Last Admin: 10/06/18 21:21 Dose: 40 mg Spironolactone (Aldactone) 25 mg PO DAILY [facility] Last Admin: 10/07/18 09:18 Dose: 25 mg Medical Necessity - Tobacco Use Smoking Status: Current some day smoker Assessment/Plan All Active Problems (Last Updated 05/24/18 @ 14:48 by Kana Khan MD) COPD exacerbation (Acute) Abdominal pain (Resolved) Acute non-ST segment elevation myocardial infarction (Resolved) NSTEMI (non-ST elevated myocardial infarction) (Resolved) Non-STEMI (non-ST elevated myocardial infarction) (Resolved) 68 y/o admitted with a complaint of productive cough and generalised malaise 1. 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 * Breathing treatments and IV salmeterol. * Early on IV ceftriaxone and doxycycline. Had mild QT prolongation and so unable to give azithromycin or levofloxacin. * On guaifenesin. * Chest CT obtained this morning showed bibasilar pulmonary infiltrates worse on the right side with evidence of emphysematous changes involving both lungs. Multiple lymph nodes in the mediastinum which are normal in size and morphology and compatible with reactive lymph hyperplasia. * respiratory panel pending; blood and sputum cultures also pending. * * 2. Chest pain, likely pleuritic * still complaining of chest pain. Troponins were not elevated. Worsened by coughing * EKG showed T wave inversions in leads I and aVL which were also present on EKG from August 2018. * Po aspirin 81mg daily. * SL nitroglycerin as needed * 3. Acute hypoxic respiratory insufficiency due to post viral pneumonia and bronchial hyperresponsiveness * still needing 4L of oxygen. * on breathing treatments and steroids. * Chest physiotherapy. Titrate oxygen to maintain saturation more than 90%. * 4. Hypokalemia: Potassium is 3.2 today. We will replace and monitor. 5. Hyponatremia: Na is still 132.WIll check BNP to ensure there is no fluid overload contributing to hyponatremia 6. CKD 3: Cr is 1.87 today. baseline is ~ 1.97. WIll monitor 7. Chronic HFrEF; EF is 25%, per echo done in 2017. on PO lasix 40mg daily. BNP pending. Also has a pacemaker in place. 8. CAD s/p CABG: on aspirin, plavix and imdur. 9. Hypertension: On metoprolol, lisinopril and spironolactone. 10. CKD 3: Cr is 0.97 which is on her baseline. Will monitor. 11. CAD status post CABG: On aspirin and Plavix as well as imdur 12. hypertension: On metoprolol and lisinopril and spironolactone DVT prophylaxis: lovenox-renally dosed Code Visit Inpatient E&M: 12667 Subs Hosp L3
--- NOTE | 2018-10-07 10:45 | CASEMGMT ---
RN [employer]IVEN [employer]BILE HOME SERVICER CM to room to meet with patient for initial transition planning/care coordination assessment. LEONIE JEAN-BAPTISTE introduced self and role at [facility]. Pt voices understanding and consents to assessment at this time. Pt sitting up in chair in no distress at this time. Pt is A/O at this time and answers all questions appropriately. Care providers, pharmacy, and demographics verified/updated at this time. PCP: Juan De La Vega Specialists: Henny-cardiology, Donn-pulmonology Preferred Pharmacy: [facility] on day of discharge only. [facility] thereafter. Insurance: [facility] [employer], [employer]. Has a Transmission Tester through the [facility] but does not remember their name. States the information is @ his home. Prescription Benefit: Yes Living Will/HPOA: does not have LW or HCPOA . Interested in more information but does not want to talk with SW at this time to complete paperwork. Provided information on advanced directives and given Social Service rac card with number to call if chooses in the future to utilize [facility] social work for advanced directive completion. Educated patient that, if patient so chooses, can come back to [facility] and meet with a SW as an outpatient to complete health care advanced directives. Patient expresses understanding. LNOK: and 6 adult children. Living Arrangements: Lives with his in 2-story apt. Bedroom and bath on 2nd floor, with rails on stairs. does struggle @ times using the stairs. No stairs to enter home. Is independent with ADL's. does most of the cooking. Transportation: provides transportation. has an appt in December in [place] to have his defibrillator tested. He states his is unable to take him because she won't drive in the city. Call placed to [facility]. They state they provide transportation and their transportation # is . Pt was made aware and given this number. He was also made aware he can call the member services number on the back of [facility] card and be directed to transportation services as well. Pt voiced understanding. DME: has the following DME: shower chair, walker, medical alert button and nebulizer. has a W/C stored @ his step-daughter's that he could get if he needed. does not have home oxygen or BIPAP/CPAP. Denies preference of DME company if he would need to go home on oxygen. Pt states he would like the small portable O2 tanks if he would need home O2. Mary, MS3 RN CM made aware. Pt states no need for further DME at this time. HHC/SNF: Has never had HHC or been to a SNF. Pt states he would like HHC once he is discharged. States his is currently receiving [facility] and that he would like [facility] as well. Pt wishes to return home and states has no concerns with going home at time of discharge. Pt states he smokes 6-7 cigarettes a day but states, I plan on going back on that patch once I get home. Discussed importance of not smoking when using oxygen and pt states he is aware. Denies drinking ETOH. CM to follow for home oxygen needs and any further discharge planning/needs. Will need home oxygen qualification testing completed prior to discharge. Discussed CCN with pt and he declines at this time. Given CCN rac card and made aware that if he is interested in CCN after [facility] has discharged him, to contact CCN to discuss with them. Pt voices understanding. Pt voices no further concerns/needs at this time. Advised pt to ask for CM if any further questions/concerns/needs arise. Voices understanding. PLAN: Home with HHC: half-way and PT/OT. Follow for Home oxygen needs. Luca SAUCEDO RN, CM
[2018-10-07 10:56] LABS: BNP,B-Type NATRIURETIC PEPTIDE 134.7 pg/mL (0-100)
[2018-10-07] MEDS: Ceftriaxone 1 GM/50 ML BAG IV (11:56)
--- NOTE | 2018-10-07 13:13 | CASEMGMT ---
Addendum entered by Mark Santamaria 10/07/18 15:37: Call received from Brittany [facility]. She states they are able to accept pt. She asked for someone to notify them if pt is not discharged tomorrow 10/08. Original Note: Addendum entered by Mark Santamaria 10/07/18 13:18: [facility]: PH:[phone] Original Note: LEONIE JEAN-BAPTISTE NOTE: Call received from [facility]. She states they are not in network with [facility] and are not able to accept pt. RN CM to room to talk with pt and he was made aware. He states he has no other preference for [facility] agency. Call placed to [facility]. She states they are in network and she was made aware anticipated discharge either tomorrow 10/08 or possibly over the weekend. Referral faxed for senior care, PT/OT. Awaiting acceptance. Luca SAUCEDO RN CM
[2018-10-07] MEDS: Acetaminophen 325 MG Tablet 650 MG PO (14:02)
--- NOTE | 2018-10-07 14:40 | CASEMGMT ---
Social Work Note SW received call from pt's CM Yuli Rodriguez at [facility]. Yuli states pt has emergency response button but has refused home health aides. DENYS informed Yuli that pt will be discharged home with [facility]. Yuli asks to be notified when pt is discharged. . Sera Galan CHICKEN HAND[employer]ER, PUBLIC HEALTH DIRECTOR
[2018-10-07] MEDS: Morphine 2 MG/ML Syringe IV ×2 (18:25→23:57)
[2018-10-07] MEDS: Rosuvastatin 20 MG Tablet 40 MG PO (21:48)
[2018-10-07 21:51] LABS: Bedside Glucose 337 mg/dL (70-110)
[2018-10-07] MEDS: Insulin Lispro 100 UNIT/ML INSULN.PEN SC (23:56)
[2018-10-08] VITALS (16 sets, daily range): BP systolic 102–117; BP diastolic 43–63; PULSE 64–87; RESP 16–20; TEMP 36.4–36.7; O2SAT 92–95
[2018-10-08 00:11] LABS: Bedside Glucose 340 mg/dL (70-110)
[2018-10-08] MEDS: Ipratropium/Albuterol Sulfate 3 ML AMPUL.NEB INHALATION ×4 (04:26→19:32)
[2018-10-08] MEDS: Morphine 2 MG/ML Syringe IV ×2 (05:16→09:37)
[2018-10-08 06:14] LABS: Absolute Lymphocyte Count 0.72 X10^3/ul (0.83-4.51); Absolute Neutrophil Count 14.5 X10^3/uL (2.0-7.7); Basophil# 0.01 X10^3/uL; Basophil% 0.1 % (0-1); Hematocrit 37.9 % (40-54); Hemoglobin 12.4 g/dl (13.0-16.5); Lymphocyte # 0.72 X10^3/ul (4.0); Lymphocyte % 4.6 % (19-41); Mean Corp Hgb Conc 32.7 g/gl (32-36); Mean Corpuscular Hgb 29.8 pg (27.0-32.0); Mean Corpuscular Volume 91.1 fL (80-94); Mean Platelet Vol. 10.6 fl (6.2-12.0); Monocyte% 2.5 % (0-10); Neutrophil # 14.52 X10^3/uL (2.7-7.7); Neutrophil % 92.5 % (47-70); Platelet Count 241 K/mm3 (150-450); RBC Distribution Width CV 13.3 % (11.6-14.6); RBC Distribution Width SD 43.3 fl (35.1-43.9); Red Blood Count 4.16 M/mm3 (4.6-6.2); White Blood Count 15.7 K/mm3 (4.4-11.0)
[2018-10-08 06:21] LABS: POSITIVE COUNT NO; POSITIVE DIFFERENTIAL NO; POSITIVE MORPHOLOGY NO
[2018-10-08 06:23] LABS: Anion Gap 8 (5-15); BUN 38 mg/dL (7-18); BUN/Creat Ratio 22.8 RATIO (10-20); Calcium,Total 8.5 mg/dL (8.5-10.1); Chloride 99 mmol/L (98-107); Creatinine, Serum 1.67 mg/dL (0.70-1.30); EST Glomerular Filtration Rate 44 mL/min (>60); Est Glom Filt Rate - Afr Amer 53 mL/min (>60); Estimated Creatinine Clearance 42.92 ml/min; Glucose 281 mg/dL (74-106); Potassium 3.5 mmol/L (3.5-5.1); Sodium Level 132 mmol/L (136-145)
[2018-10-08] MEDS: Insulin Lispro 100 UNIT/ML INSULN.PEN SC ×4 (06:51→22:18)
[2018-10-08 07:01] LABS: Bedside Glucose 238 mg/dL (70-110)
[2018-10-08 08:25] LABS: Osmolality, Serum 295 mOsm/KG (280-301)
[2018-10-08] MEDS: Ceftriaxone 1 GM/50 ML BAG IV (09:36)
[2018-10-08] MEDS: Allopurinol 300 MG Tablet PO (09:39)
[2018-10-08] MEDS: Aspirin E.C. 325 MG Tablet PO (09:39)
[2018-10-08] MEDS: Isosorbide Mononitrate 30 MG Tablet PO (09:40)
[2018-10-08] MEDS: Spironolactone 25 MG Tablet PO (09:40)
[2018-10-08] MEDS: guaiFENesin 1,200 MG Tablet 1200 MG PO ×2 (09:41→22:18)
[2018-10-08] MEDS: Enoxaparin 30 MG/0.3 ML Syringe SC (09:41)
[2018-10-08] MEDS: Furosemide 40 MG Tablet PO (09:41)
[2018-10-08] MEDS: Pantoprazole Sodium 40 MG Tablet PO (09:42)
[2018-10-08] MEDS: Metoprolol(XL)Succ 100 MG Tablet PO (09:42)
[2018-10-08] MEDS: Lisinopril 2.5 MG Tablet PO (09:42)
[2018-10-08] MEDS: Clopidogrel Bisulfate 75 MG Tablet PO (09:42)
[2018-10-08] MEDS: Glucerna Shake 120 ML LIQUID PO ×4 (10:04→22:16)
--- NOTE | 2018-10-08 11:05 | ECHOCS_ITS ---
Reason For Study: Dyspnea/SOB Procedure This was a 2D Doppler, Color Flow transthoracic echocardiogram. Exam performed portable in patient room. Left Ventricle Mildly dilated left ventricle. The estimated ejection fraction is 35 %. Stage 1 diastolic dysfunction. Septal motion consistent with IVCD. There are regional wall motion abnormalities as specified. Right Ventricle Normal size and thickness. ICD or pacer leads identified within the right ventricle. Normal systolic function. Atria The left atrium is moderately enlarged. Normal atrial septum. Mitral Valve Mild diffuse mitral valve thickening. Tricuspid Valve Normal tricuspid valve. Unable to estimate RV systolic pressure due to inadequate jet, pulmonary artery pressure probably normal. Aortic Valve Trisinus/trileaflet aortic valve. Mild diffuse aortic valve thickening. Mild aortic stenosis. Pulmonic Valve The pulmonic valve is not well visualized. Great Vessels Normal aortic root. Normal arch. Normal inferior vena cava. Inferior vena cava collapse with sniff. Pericardium/Pleural No pericardial effusion. Medication Diluted definity 4ml given slow IV push to enhance endocardial definition. MMode/2D Measurements & Calculations LVIDd: 4.4 cm IVSd: 2.1 cm LAV(MOD-bp): 72.2 ml LVIDs: 3.7 cm LVPWd: 1.2 cm FS: 15.5 % LAV(MOD-bp) Indexed: 33.6 ml/m2 LAV(MOD-sp2): 54.4 ml LAV(MOD-sp4): 95.2 ml LA A4 area: 25.0 cm2 Time Measurements MV dec time: 0.25 sec Doppler Measurements & Calculations MV E max neal: 71.8 cm/sec Lat Peak E' Neal: 5.9 cm/sec Med Peak E' Neal: 5.9 cm/sec MV A max neal: 129.8 cm/sec E/E' lat: 12.2 E/E' med: 12.2 MV E/A: 0.55 MV V2 max: 149.3 cm/sec MV P1/2t max neal: 84.7 cm/sec Ao V2 max: 185.7 cm/sec MV max P.9 mmHg MV P1/2t: 96.8 msec Ao max P.8 mmHg MV V2 mean: 69.8 cm/sec Ao V2 mean: 108.5 cm/sec MV mean P.4 mmHg MV dec slope: 256.5 cm/sec2 Ao mean P.9 mmHg MV V2 VTI: 39.2 cm MVA(P1/2t): 2.3 cm2 Ao V2 VTI: 31.1 cm LV V1 max: 96.9 cm/sec MR max neal: 410.7 cm/sec PA V2 max: 160.8 cm/sec LV V1 max P.8 mmHg MR max P.5 mmHg LV V1 mean P.8 mmHg LV V1 mean: 60.8 cm/sec LV V1 VTI: 18.3 cm Interpretation Summary Mildly dilated left ventricle. The estimated ejection fraction is 35 %. Stage 1 diastolic dysfunction. There are regional wall motion abnormalities as specified. The left atrium is moderately enlarged. Unable to estimate RV systolic pressure due to inadequate jet, pulmonary artery pressure probably normal. Mild aortic stenosis. Compared to echo report dated 12/12/2017, LV function appears to have improved from 25% to 35%, allowing for technically difficult images. The study was technically difficult. Contrast injection was performed. Ordering Physician: Preeti Gonzalez Performed By: Clem Ovalle RCS
--- NOTE | 2018-10-08 12:16 | PCM.PN.HOSP ---
Subjective: Patient seen and examined. He still feels SOB and is wheezing. Cough is less productive. He denies any fever, chills, palpitations, dizziness, diarrhea or vomiting. Review of systems otherwise negative. Labs and vitals reviewed. Vitals/I&O's: Vital Signs Temp Pulse Resp BP Pulse Ox 98.1 F 85 20 H 102/43 L 95 10/08/18 09:28 10/08/18 10:26 10/08/18 10:26 10/08/18 09:28 10/08/18 10:26 Oxygen Flow Rate (L/min) 4 Oxygen Delivery Method Nasal Cannula Weight: 195 lb 12.328 oz Body Mass Index (BMI) 28.9 Intake and Output for Last 24 Hours 10/06/18 10/07/18 10/08/18 23:59 23:59 23:59 Intake Total 1000 / 1000 1180 / 1180 Balance 1000 / 1000 1180 / 1180 General: Alert, Oriented x3, Cooperative HEENT: Atraumatic, PERRLA, EOMI, Normocephalic Oral: Dry Mucosa Neck: Supple, No JVD, Negative Carotid Bruits Lungs: Short of Breath, - -still has coarse wheezing in all lung bui, mild bilateral crackles. on 4L of oxygen Cardiovascular: Regular rate, Regular Rhythm, Normal S1, Normal S2, No murmurs Abdomen: Bowel Sounds Present Extremities: No clubbing, No cyanosis, No edema, Capillary Refill Less than 3 Seconds Skin: No rashes, No breakdown Musculoskeletal: No Tenderness to Palpation of Joints or Extremities Lymphatic: No Cervical, Supraclavicular, or Inguinal Adenopathy Neurological: Cranial nerves II-XII grossly intact, Neuro grossly intact Psych/Mental Status: Normal Affect, Appropriate, Alert and oriented to time, place, person, mood and affect Microbiology Past 72 Hours 10/07/18 11:00 Mucosa - Nasopharyngeal Respiratory Panel (PCR) - Final 10/06/18 17:00 Sputum, Expectorated/Coughed Gram Stain - Final 10/06/18 17:00 Sputum, Expectorated/Coughed Respiratory Culture - Preliminary Gram negative cocco bacillus 10/06/18 16:50 Urine, Clean Catch Legionella Antigen - Final 10/06/18 16:50 Urine, Clean Catch Streptococcus pneumoniae Antigen (M - Final Laboratory Results 10/07/18 21:35: POC Glucose 337 H 10/07/18 23:51: POC Glucose 340 H 10/08/18 05:04: WBC 15.7 H, RBC 4.16 L, Hgb 12.4 L, Hct 37.9 L, MCV 91.1, MCH 29.8, MCHC 32.7, RDW 13.3, RDW Differential 43.3, Plt Count 241, MPV 10.6, Immature Gran % (Auto) 0.300, Neut % (Auto) 92.5 H, Lymph % (Auto) 4.6 L, [place] % (Auto) 2.5, Eos % (Auto) 0.0, Baso % (Auto) 0.1, Absolute Neuts (auto) 14.5 H, Absolute Lymphs (auto) 0.72 L, Total Counted Not Reportable 10/08/18 05:04: Sodium 132 L, Potassium 3.5, Chloride 99, Carbon Dioxide 25.0, Anion Gap 8, BUN 38 H, Creatinine 1.67 H, Estim Creat Clear Calc 42.92, Est GFR (MDRD) Af Amer 53 L, Est GFR (MDRD) Non-Af 44 L, BUN/Creatinine Ratio 22.8 H, Glucose 281 H, Calcium 8.5 10/08/18 06:48: POC Glucose 238 H 10/08/18 07:45: Serum Osmolality 295 Current Medications Acetaminophen (Tylenol) 650 mg PO Q6H PRN PRN PRN Reason: PAIN Last Admin: 10/07/18 14:02 Dose: 650 mg Albuterol/Ipratropium (Duoneb) 3 ml INHALATION Q4HWA.RT [facility] Last Admin: 10/08/18 10:26 Dose: 3 ml Allopurinol (Zyloprim) 300 mg PO DAILYCM [facility] Last Admin: 10/08/18 09:39 Dose: 300 mg Aspirin (Ecotrin) 325 mg PO DAILY@0800 [facility] Last Admin: 10/08/18 09:39 Dose: 325 mg Clopidogrel Bisulfate (Plavix) 75 mg PO DAILY [facility] Last Admin: 10/08/18 09:42 Dose: 75 mg Enoxaparin Sodium (Lovenox) 30 mg SC DAILY@1000 [facility] Last Admin: 10/08/18 09:41 Dose: 30 mg Furosemide (Lasix) 40 mg PO DAILY [facility] Last Admin: 10/08/18 09:41 Dose: 40 mg Guaifenesin (Mucinex) 1,200 mg PO BID [facility] Last Admin: 10/08/18 09:41 Dose: 1,200 mg Ceftriaxone Sodium (Rocephin) 1 gm in 50 mls @ 100 mls/hr IV Q24 [facility] Last Admin: 10/08/18 09:36 Dose: 100 mls/hr Doxycycline Hyclate 100 mg/ (Dextrose) 260 mls @ 250 mls/hr IV Q12 [facility] Last Admin: 10/08/18 10:40 Dose: 250 mls/hr Insulin Human Lispro (Humalog Kwikpen (Bkc)) 0 unit SC ACHS [facility]; Protocol Last Admin: 10/08/18 06:51 Dose: 4 u Isosorbide Mononitrate (Imdur) 30 mg PO DAILY [facility] Last Admin: 10/08/18 09:40 Dose: 30 mg Lisinopril (Zestril) 2.5 mg PO DAILY [facility] Last Admin: 10/08/18 09:42 Dose: 2.5 mg Magnesium Hydroxide (Milk Of Magnesia) 30 ml PO DAILY PRN PRN PRN Reason: Constipation Methylprednisolone (Solu-Medrol) 40 mg IV Q8 [facility] Last Admin: 10/08/18 05:16 Dose: 40 mg Metoprolol Succinate (Toprol Xl (Beta Sina)) 100 mg PO DAILY [facility] Last Admin: 10/08/18 09:42 Dose: 100 mg Morphine Sulfate () 2 mg IV Q4H PRN PRN PRN Reason: SEVERE PAIN (6-10/10) Last Admin: 10/08/18 09:37 Dose: 2 mg Nicotine (Nicoderm Cq (Pbkc)) 21 mg TRANSDERM. DAILY [facility] Last Admin: 10/08/18 09:41 Dose: 21 mg Nitroglycerin (Nitrostat) 0.4 mg SUBLINGUAL Q5M PRN PRN Reason: Chest Pain Nutritional Formula (Lactose Free) (Glucerna Shake) 120 ml PO 4X/DAY [facility] Last Admin: 10/08/18 10:04 Dose: 120 ml Oxycodone HCl (Oxyir) 7.5 mg PO 4X/DAY PRN PRN Reason: PAIN Last Admin: 10/07/18 14:01 Dose: 7.5 mg Pantoprazole Sodium (Protonix) 40 mg PO DAILY [facility] Last Admin: 10/08/18 09:42 Dose: 40 mg Rosuvastatin Calcium (Crestor) 40 mg PO QHS [facility] Last Admin: 10/07/18 21:48 Dose: 40 mg Spironolactone (Aldactone) 25 mg PO DAILY [facility] Last Admin: 10/08/18 09:40 Dose: 25 mg Medical Necessity - Tobacco Use Smoking Status: Current some day smoker Assessment/Plan All Active Problems (Last Updated 05/24/18 @ 14:48 by Kana Khan MD) COPD exacerbation (Acute) Abdominal pain (Resolved) Acute non-ST segment elevation myocardial infarction (Resolved) NSTEMI (non-ST elevated myocardial infarction) (Resolved) Non-STEMI (non-ST elevated myocardial infarction) (Resolved) 68 y/o admitted with a complaint of productive cough and generalised malaise 1. 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 Breathing treatments and IV solumedrol On IV ceftriaxone and doxycycline. Had mild QT prolongation and so unable to give azithromycin or levofloxacin. On guaifenesin. Chest CT: showed bibasilar pulmonary infiltrates worse on the right side with evidence of emphysematous changes involving both lungs. Multiple lymph nodes in the mediastinum which are normal in size and morphology and compatible with reactive lymph hyperplasia. respiratory panel pending; sputum cultyures grew gram negative cocco bacillus. 2. Chest pain, likely pleuritic relieved by morphine and oxycodone. EKG showed T wave inversions in leads I and aVL which were also present on EKG from August 2018. Po aspirin 81mg daily. SL nitroglycerin as needed 3. Acute hypoxic respiratory insufficiency due to post viral pneumonia and bronchial hyperresponsiveness still needing 4L of oxygen. on breathing treatments and steroids. Chest physiotherapy. Titrate oxygen to maintain saturation more than 90%. pulmo consult as patient still remains SOB. will get 2D echo as well. 4. Hypokalemia: resolved. K is 3.5. 5. Hyponatremia: Na is still 132. BNP is 134.7. Serum osmolality is 295. WIll monitor 6. CKD 3: Cr is 1.67 today. baseline is ~ 1.97. WIll monitor 7. Chronic HFrEF; EF is 25%, per echo done in 2017. on PO lasix 40mg daily. BNP is 134.7. Also has a pacemaker in place. 8. CAD s/p CABG: on aspirin, plavix and imdur. 9. Hypertension: On metoprolol, lisinopril and spironolactone. 10. CKD 3: Cr is 0.97 which is on her baseline. Will monitor. 11. CAD status post CABG: On aspirin and Plavix as well as imdur 12. hypertension: On metoprolol and lisinopril and spironolactone DVT prophylaxis: lovenox-renally dosed Code Visit Inpatient E&M: 80448 Subs Hosp L3
--- NOTE | 2018-10-08 12:20 | PN_ITS ---
Subjective: Patient seen and examined. He still feels SOB and is wheezing. Cough is less productive. He denies any fever, chills, palpitations, dizziness, diarrhea or vomiting. Review of systems otherwise negative. Labs and vitals reviewed. Vitals/I&O's: Vital Signs Temp Pulse Resp BP Pulse Ox 98.1 F 85 20 H 102/43 L 95 10/08/18 09:28 10/08/18 10:26 10/08/18 10:26 10/08/18 09:28 10/08/18 10:26 Oxygen Flow Rate (L/min) 4 Oxygen Delivery Method Nasal Cannula Weight: 195 lb 12.328 oz Body Mass Index (BMI) 28.9 Intake and Output for Last 24 Hours 10/06/18 10/07/18 10/08/18 23:59 23:59 23:59 Intake Total 1000 / 1000 1180 / 1180 Balance 1000 / 1000 1180 / 1180 General: Alert, Oriented x3, Cooperative HEENT: Atraumatic, PERRLA, EOMI, Normocephalic Oral: Dry Mucosa Neck: Supple, No JVD, Negative Carotid Bruits Lungs: Short of Breath, - -still has coarse wheezing in all lung bui, mild bilateral crackles. on 4L of oxygen Cardiovascular: Regular rate, Regular Rhythm, Normal S1, Normal S2, No murmurs Abdomen: Bowel Sounds Present Extremities: No clubbing, No cyanosis, No edema, Capillary Refill Less than 3 Seconds Skin: No rashes, No breakdown Musculoskeletal: No Tenderness to Palpation of Joints or Extremities Lymphatic: No Cervical, Supraclavicular, or Inguinal Adenopathy Neurological: Cranial nerves II-XII grossly intact, Neuro grossly intact Psych/Mental Status: Normal Affect, Appropriate, Alert and oriented to time, place, person, mood and affect Microbiology Past 72 Hours 10/07/18 11:00 Mucosa - Nasopharyngeal Respiratory Panel (PCR) - Final 10/06/18 17:00 Sputum, Expectorated/Coughed Gram Stain - Final 10/06/18 17:00 Sputum, Expectorated/Coughed Respiratory Culture - Preliminary Gram negative cocco bacillus 10/06/18 16:50 Urine, Clean Catch Legionella Antigen - Final 10/06/18 16:50 Urine, Clean Catch Streptococcus pneumoniae Antigen (M - Final Laboratory Results 10/07/18 21:35: POC Glucose 337 H 10/07/18 23:51: POC Glucose 340 H 10/08/18 05:04: WBC 15.7 H, RBC 4.16 L, Hgb 12.4 L, Hct 37.9 L, MCV 91.1, MCH 29.8, MCHC 32.7, RDW 13.3, RDW Differential 43.3, Plt Count 241, MPV 10.6, Immature Gran % (Auto) 0.300, Neut % (Auto) 92.5 H, Lymph % (Auto) 4.6 L, [place] % (Auto) 2.5, Eos % (Auto) 0.0, Baso % (Auto) 0.1, Absolute Neuts (auto) 14.5 H, Absolute Lymphs (auto) 0.72 L, Total Counted Not Reportable 10/08/18 05:04: Sodium 132 L, Potassium 3.5, Chloride 99, Carbon Dioxide 25.0, Anion Gap 8, BUN 38 H, Creatinine 1.67 H, Estim Creat Clear Calc 42.92, Est GFR (MDRD) Af Amer 53 L, Est GFR (MDRD) Non-Af 44 L, BUN/Creatinine Ratio 22.8 H, Glucose 281 H, Calcium 8.5 10/08/18 06:48: POC Glucose 238 H 10/08/18 07:45: Serum Osmolality 295 Current Medications Acetaminophen (Tylenol) 650 mg PO Q6H PRN PRN PRN Reason: PAIN Last Admin: 10/07/18 14:02 Dose: 650 mg Albuterol/Ipratropium (Duoneb) 3 ml INHALATION Q4HWA.RT [facility] Last Admin: 10/08/18 10:26 Dose: 3 ml Allopurinol (Zyloprim) 300 mg PO DAILYCM [facility] Last Admin: 10/08/18 09:39 Dose: 300 mg Aspirin (Ecotrin) 325 mg PO DAILY@0800 [facility] Last Admin: 10/08/18 09:39 Dose: 325 mg Clopidogrel Bisulfate (Plavix) 75 mg PO DAILY [facility] Last Admin: 10/08/18 09:42 Dose: 75 mg Enoxaparin Sodium (Lovenox) 30 mg SC DAILY@1000 [facility] Last Admin: 10/08/18 09:41 Dose: 30 mg Furosemide (Lasix) 40 mg PO DAILY [facility] Last Admin: 10/08/18 09:41 Dose: 40 mg Guaifenesin (Mucinex) 1,200 mg PO BID [facility] Last Admin: 10/08/18 09:41 Dose: 1,200 mg Ceftriaxone Sodium (Rocephin) 1 gm in 50 mls @ 100 mls/hr IV Q24 [facility] Last Admin: 10/08/18 09:36 Dose: 100 mls/hr Doxycycline Hyclate 100 mg/ (Dextrose) 260 mls @ 250 mls/hr IV Q12 [facility] Last Admin: 10/08/18 10:40 Dose: 250 mls/hr Insulin Human Lispro (Humalog Kwikpen (Bkc)) 0 unit SC ACHS [facility]; Protocol Last Admin: 10/08/18 06:51 Dose: 4 u Isosorbide Mononitrate (Imdur) 30 mg PO DAILY [facility] Last Admin: 10/08/18 09:40 Dose: 30 mg Lisinopril (Zestril) 2.5 mg PO DAILY [facility] Last Admin: 10/08/18 09:42 Dose: 2.5 mg Magnesium Hydroxide (Milk Of Magnesia) 30 ml PO DAILY PRN PRN PRN Reason: Constipation Methylprednisolone (Solu-Medrol) 40 mg IV Q8 [facility] Last Admin: 10/08/18 05:16 Dose: 40 mg Metoprolol Succinate (Toprol Xl (Beta Sina)) 100 mg PO DAILY [facility] Last Admin: 10/08/18 09:42 Dose: 100 mg Morphine Sulfate () 2 mg IV Q4H PRN PRN PRN Reason: SEVERE PAIN (6-10/10) Last Admin: 10/08/18 09:37 Dose: 2 mg Nicotine (Nicoderm Cq (Pbkc)) 21 mg TRANSDERM. DAILY [facility] Last Admin: 10/08/18 09:41 Dose: 21 mg Nitroglycerin (Nitrostat) 0.4 mg SUBLINGUAL Q5M PRN PRN Reason: Chest Pain Nutritional Formula (Lactose Free) (Glucerna Shake) 120 ml PO 4X/DAY [facility] Last Admin: 10/08/18 10:04 Dose: 120 ml Oxycodone HCl (Oxyir) 7.5 mg PO 4X/DAY PRN PRN Reason: PAIN Last Admin: 10/07/18 14:01 Dose: 7.5 mg Pantoprazole Sodium (Protonix) 40 mg PO DAILY [facility] Last Admin: 10/08/18 09:42 Dose: 40 mg Rosuvastatin Calcium (Crestor) 40 mg PO QHS [facility] Last Admin: 10/07/18 21:48 Dose: 40 mg Spironolactone (Aldactone) 25 mg PO DAILY [facility] Last Admin: 10/08/18 09:40 Dose: 25 mg Medical Necessity - Tobacco Use Smoking Status: Current some day smoker Assessment/Plan All Active Problems (Last Updated 05/24/18 @ 14:48 by Kana Khan MD) COPD exacerbation (Acute) Abdominal pain (Resolved) Acute non-ST segment elevation myocardial infarction (Resolved) NSTEMI (non-ST elevated myocardial infarction) (Resolved) Non-STEMI (non-ST elevated myocardial infarction) (Resolved) 68 y/o admitted with a complaint of productive cough and generalised malaise 1. 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 * Breathing treatments and IV solumedrol * On IV ceftriaxone and doxycycline. Had mild QT prolongation and so unable to give azithromycin or levofloxacin. * On guaifenesin. * Chest CT: showed bibasilar pulmonary infiltrates worse on the right side with evidence of emphysematous changes involving both lungs. Multiple lymph nodes in the mediastinum which are normal in size and morphology and compatible with reactive lymph hyperplasia. * respiratory panel pending; sputum cultyures grew gram negative cocco bacillus. * * 2. Chest pain, likely pleuritic * relieved by morphine and oxycodone. * EKG showed T wave inversions in leads I and aVL which were also present on EKG from August 2018. * Po aspirin 81mg daily. * SL nitroglycerin as needed * 3. Acute hypoxic respiratory insufficiency due to post viral pneumonia and bronchial hyperresponsiveness * still needing 4L of oxygen. * on breathing treatments and steroids. * Chest physiotherapy. Titrate oxygen to maintain saturation more than 90%. * pulmo consult as patient still remains SOB. * will get 2D echo as well. * 4. Hypokalemia: resolved. K is 3.5. 5. Hyponatremia: Na is still 132. BNP is 134.7. Serum osmolality is 295. WIll monitor 6. CKD 3: Cr is 1.67 today. baseline is ~ 1.97. WIll monitor 7. Chronic HFrEF; EF is 25%, per echo done in 2017. on PO lasix 40mg daily. BNP is 134.7. Also has a pacemaker in place. 8. CAD s/p CABG: on aspirin, plavix and imdur. 9. Hypertension: On metoprolol, lisinopril and spironolactone. 10. CKD 3: Cr is 0.97 which is on her baseline. Will monitor. 11. CAD status post CABG: On aspirin and Plavix as well as imdur 12. hypertension: On metoprolol and lisinopril and spironolactone DVT prophylaxis: lovenox-renally dosed Code Visit Inpatient E&M: 84799 [facility] Hosp L3
[2018-10-08 12:40] LABS: Bedside Glucose 316 mg/dL (70-110)
--- NOTE | 2018-10-08 13:46 | PCM.CONS.GEN ---
Reason for Consult Date of Consultation: 10/08/18 Reason for Consultation: Acute respiratory insufficiency History of Present Illness: The patient is a 68-year-old male, with a history as outlined below, who presented to the emergency department on October 06 with complaints of exertional dyspnea and productive cough. The patient had just been discharged from the hospital on September 21 after having been admitted for a COPD exacerbation. I did see the patient one time in the pulmonary medicine clinic in July 2017. The patient subsequently completed pulmonary function studies which revealed evidence of an irreversible mild large airways obstructive ventilatory defect with associated symmetric reduction in diffusing capacity. At the time of my last office visit with the patient, he was started on Anoro and was supposed to follow-up, but failed to do so. The patient does have a history of coronary artery disease for which he underwent PCI and is post triple-vessel CABG 10 years ago. He has a long-standing tobacco abuse history of approximately 60 pack years and continues to smoke 0.5 packs/day. 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 The patient currently only utilizes an albuterol rescue inhaler at home environment and he does so on a frequent daily basis. On presentation to the emergency department, the patient was noted to be afebrile and hemodynamically stable. He was initially documented to be saturating 95% on room air. Laboratory evaluation revealed no evidence of a leukocytosis. Chemistry profile was notable for a potassium of 3.2 and an elevated creatinine of 1.87. BNP and troponin were negative. A CT abdomen/pelvis was obtained in the ED due to complaints of nausea and vomiting along with diarrhea. That imaging study did confirm evidence of a right lower lobe infiltrate. The patient received supplemental IV fluids and antibiotics. He was subsequently admitted to the hospital for ongoing management. The patient has been maintained on antibiotics, steroids and bronchodilators throughout his hospital stay. His supplemental oxygen requirement has been increased to 4 L/min. The patient's sputum culture is currently growing gram-negative coccobacillus. A CT chest was completed yesterday and did again confirm evidence of bibasilar pulmonary infiltrates, right greater than left. The patient reports ongoing cough, but has been unable to expectorate sputum. He does report continued fatigue, chest tightness, wheezing and pleuritic chest pain. Past Medical History Past Medical History (Chronic Problems): Chronic Problems (Last Updated 05/24/18 @ 14:48 by Kana Khan MD) COPD (chronic obstructive pulmonary disease) (Chronic) Obesity (BMI 30.0-34.9) (Chronic) Nicotine dependence (Chronic) Gout (Chronic) Degenerative cervical disc (Chronic) Claudication (Chronic) Chronic back pain (Chronic) Presence of automatic implantable cardioverter-defibrillator (Chronic) Presence of automatic implantable cardioverter-defibrillator (Chronic) H/O coronary artery bypass surgery (Chronic ~2008) HUMPHREY-LAD, SVG-D1, SVG-OM Chronic renal failure, stage 3 (moderate) (Chronic) Chronic systolic (congestive) heart failure (Chronic) Stented coronary artery (Chronic ~12/2016) has had 7 stents as of 06/15/17 Ischemic cardiomyopathy (Chronic) 25% ejection fraction in November 2016 V-tach (Chronic) has an AICD Benign essential hypertension (Chronic) Gastroesophageal reflux disease (Chronic) Hyperlipidemia (Chronic) Type 2 diabetes mellitus (Chronic) Morbid obesity (Chronic) CAD (coronary artery disease) (Chronic) Medical History: Medical History (Last Updated 05/24/18 @ 14:48 by Kana Khan MD) Nicotine dependence (Chronic) F17.200 Gout (Chronic) M10.9 Degenerative cervical disc (Chronic) M50.30 Claudication (Chronic) I73.9 Chronic back pain (Chronic) M54.9, G89.29 Chronic renal failure, stage 3 (moderate) (Chronic) N18.3 Chronic systolic (congestive) heart failure (Chronic) I50.22 Ischemic cardiomyopathy (Chronic) I25.5 25% ejection fraction in November 2016 V-tach (Chronic) I47.2 has an AICD Benign essential hypertension (Chronic) I10 Gastroesophageal reflux disease (Chronic) K21.9 Hyperlipidemia (Chronic) E78.5 Type 2 diabetes mellitus (Chronic) E11.9 Morbid obesity (Chronic) E66.01 CAD (coronary artery disease) (Chronic) I25.10 Acute non-ST segment elevation myocardial infarction (Resolved) I21.4 Colitis (Inactive) Tinea manus (Inactive) B35.2 Tubular adenoma of colon (Inactive) D12.6 Allergies chlorpromazine HCl [From Thorazine] Allergy (Severe, Verified 09/20/18 13:14) Hives PER PATIENT tramadol HCl [From Ultram] Allergy (Severe, Verified 09/20/18 13:14) Hives PER PATIENT codeine Allergy (Intermediate, Verified 09/20/18 13:14) Hives atorvastatin Adverse Reaction (Intermediate, Verified 09/20/18 13:14) Other LEG PAIN/CRAMPS naproxen Adverse Reaction (Verified 09/20/18 13:14) Upset Stomach promethazine [From Phenergan] Adverse Reaction (Verified 09/20/18 13:14) Other CONFUSION Home Medications: Ambulatory Orders Medication Instructions Recorded Nitroglycerin [Nitrostat] 0.4 mg SUBLINGUAL Q5M PRN 09/17/15 Isosorbide Mononitrate [Imdur] 30 mg PO DAILY 02/18/17 Albuterol Aerosols [Ventolin 2.5 mg INHALATION Q4H PRN PRN 02/23/17 Aerosols] albuterol sulfate HFA 90 2 puff INHALATION Q4H PRN g 07/31/17 mcg/actuation aerosol inhaler Pantoprazole Sodium [Protonix] 40 mg PO DAILY 11/15/17 umeclidinium 62.5 mcg-vilanterol 1 inh INHALATION DAILY #60 ea MDD 02/05/18 25 mcg/actuation powdr for copd inhalation Metoprolol Succinate [Toprol Xl] 100 mg PO DAILY 05/20/18 Lisinopril [Zestril] 2.5 mg PO DAILY 05/21/18 Rosuvastatin Calcium [Crestor] 40 mg PO DAILY 06/16/18 Spironolactone 25 mg PO DAILY 06/16/18 Clopidogrel Bisulfate [Plavix] 75 mg PO DAILY 09/01/18 Furosemide 40 mg PO DAILY 09/01/18 Allopurinol 300 mg PO DAILY 09/20/18 Aspirin E.C. [Ecotrin] 325 mg PO DAILY@0800 09/20/18 Nicotine [Nicoderm Cq] 21 mg TRANSDERM. DAILY #28 patch 09/21/18 Prednisone 10 mg PO UD #30 tab 09/21/18 Oxycodone HCl/Acetaminophen 1 tab PO 4X/DAY PRN 10/06/18 [Percocet 7.5-325 mg Tablet] Surgical History: Surgical History (Last Reviewed 12/15/17 @ 10:18 by Ramonita Alcantar) Presence of automatic implantable cardioverter-defibrillator (Chronic) Z95.810 H/O coronary artery bypass surgery (Chronic) Onset Date: ~2008 Z95.1 HUMPHREY-LAD, SVG-D1, SVG-OM Stented coronary artery (Chronic) Onset Date: ~12/2016 has had 7 stents as of 06/15/17 Hx of hernia repair (Inactive) Z98.890, Z87.19 Previous back surgery (Inactive) Z98.890 Status post left heart catheterization (Inactive) Onset Date: ~12/2016 Z98.890 Surgical History: angioplasty - stents x10, coronary bypass surgery, - - AICD placement, back surgery x 2, hernia repair Psychiatric History: No pertinent psych hx Smoking Status: Current some day smoker - *Family History Paternal Family History: Family History (Last Reviewed 12/15/17 @ 10:18 by Ramonita Alcantar) Brother CAD (coronary artery disease) Myocardial infarction Sudden cardiac Mother Cancer Hypertension Father Cancer COPD (chronic obstructive pulmonary disease) History Items: Cancer, Heart Disease Maternal Family History: Family History (Last Reviewed 12/15/17 @ 10:18 by Ramonita Alcantar) Brother CAD (coronary artery disease) Myocardial infarction Sudden cardiac Mother Cancer Hypertension Father Cancer COPD (chronic obstructive pulmonary disease) History Items: - - Patient notes a paternal family history of chronic lung disease, lung cancer with history of tobacco use. Review of Systems Constitutional: Reports: Malaise, Weakness, Fatigue Eyes: Denies: Blurred vision, Double vision HEENT: Denies: Head Aches, Sinus Congestion, Sinus Drainage Cardiovascular: Denies: Chest Pain, Palpitations Respiratory: Reports: Pleuritic Pain, Shortness of Breath, Wheezing Gastrointestinal: Denies: Abdominal Pain, Nausea, Vomiting Genitourinary: Denies: Dysuria Musculoskeletal: Denies: Joint Pain, Joint Tenderness Skin: Denies: Rash, Wounds Neurological: Denies: Numbness, Tingling, Focal weakness Psychiatric: Denies: Anxiety, Depression, Homicidal Ideations, Suicidal Ideations Hematologic/ Lymphatic: Denies: Easy Bruising, Easy Bleeding Objective: The patient's most recent lab work, culture data and imaging studies have all been personally reviewed. - Physical Exam General: Alert, Cooperative, - - Quite fatigued in appearance HEENT: Atraumatic, PERRLA, Normocephalic Oral: No Gingival or Mucosal Lesions/ Ulcerations Neck: Supple, No Nodes, Trachea Midline Lungs: Diminished, Rales, Short of Breath, Wheezes Cardiovascular: Regular rate, Regular Rhythm, Normal S1, Normal S2, No murmurs Abdomen: Bowel Sounds Present, Soft, Non Tender Extremities: No clubbing, No cyanosis, No edema Skin: No breakdown Musculoskeletal: No Tenderness to Palpation of Joints or Extremities Lymphatic: No Cervical, Supraclavicular, or Inguinal Adenopathy Neurological: Cranial nerves II-XII grossly intact, Neuro grossly intact Psych/Mental Status: Normal Affect, Appropriate Vital Signs Temp Pulse Resp BP Pulse Ox 36.7 C 72 20 H 102/43 L 95 10/08/18 09:28 10/08/18 13:41 10/08/18 10:26 10/08/18 09:28 10/08/18 10:26 Oxygen Flow Rate (L/min) 4 Oxygen Delivery Method Nasal Cannula Weight: 195 lb 12.328 oz Body Mass Index (BMI) 28.9 Intake and Output for Last 24 Hours 10/06/18 10/07/18 10/08/18 23:59 23:59 23:59 Intake Total 1000 / 1000 1180 / 1180 Balance 1000 / 1000 1180 / 1180 Microbiology Past 72 Hours 10/07/18 11:00 Respiratory Panel (PCR) - Final Mucosa - Nasopharyngeal 10/06/18 17:00 Gram Stain - Final Sputum, Expectorated/Coughed Respiratory Culture - Preliminary Gram negative cocco bacillus 10/06/18 16:50 Legionella Antigen - Final Urine, Clean Catch 10/06/18 16:50 Streptococcus pneumoniae Antigen (M - Final Urine, Clean Catch Laboratory Tests Past 24 Hrs 10/08/18 10/08/18 10/08/18 05:04 05:04 07:45 WBC 15.7 H RBC 4.16 L Hgb 12.4 L Hct 37.9 L MCV 91.1 MCH 29.8 MCHC 32.7 RDW 13.3 RDW Differential 43.3 Plt Count 241 MPV 10.6 Immature Gran % (Auto) 0.300 Neut % (Auto) 92.5 H Lymph % (Auto) 4.6 L [place] % (Auto) 2.5 Eos % (Auto) 0.0 Baso % (Auto) 0.1 Absolute Neuts (auto) 14.5 H Absolute Lymphs (auto) 0.72 L Total Counted Not Reportable Sodium 132 L Potassium 3.5 Chloride 99 Carbon Dioxide 25.0 Anion Gap 8 BUN 38 H Creatinine 1.67 H Estim Creat Clear Calc 42.92 Est GFR (MDRD) Af Amer 53 L Est GFR (MDRD) Non-Af 44 L BUN/Creatinine Ratio 22.8 H Glucose 281 H Serum Osmolality 295 Calcium 8.5 POC Glucose 10/08/18 10/08/18 10/07/18 12:06 06:48 23:51 POC Glucose 316 H 238 H 340 H 10/07/18 21:35 POC Glucose 337 H Clinical Impression(s) from Imaging Studies Abdomen/Pelvis CT 10/06/18 07:08 IMPRESSION: 1. Right lower lobe interstitial pneumonitis, new when compared to 06/16/2018. 2. Mild thickening of the urinary bladder wall is also a new finding. 3. No suspicious mass or acute abnormality in the abdomen and pelvis. 4. Pronounced multilevel degenerative disc space narrowing with degenerative vacuum phenomenon at L1-L2, L2-L3, L3-L4 and L5-S1 disc space levels. 5. No other additional findings or changes when compared to 06/16/2018. Electronically Signed: Davi Mendoza MD at 9:09 EDT , Service support , Chest X-Ray 10/06/18 07:08 IMPRESSION: 1. No acute cardiopulmonary pathology. 2. 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 High resolution CT chest will be helpful for further evaluation if desired. 3. No significant interval change when compared to 09/21/2018. Electronically Signed: Davi Mendoza MD at 9:00 EDT , Service support , Chest CT 10/07/18 08:19 IMPRESSION: Bibasilar pulmonary infiltrates worse on the right side. Follow-up is recommended. Electronically Signed: Arcenio Leary, at 9:51 EDT , Service support , Assessment/Plan All Active Problems (Last Updated 05/24/18 @ 14:48 by Kana Khan MD) COPD exacerbation (Acute) Abdominal pain (Resolved) Acute non-ST segment elevation myocardial infarction (Resolved) NSTEMI (non-ST elevated myocardial infarction) (Resolved) Non-STEMI (non-ST elevated myocardial infarction) (Resolved) RECOMMENDATIONS: 1. At this time, I am going to empirically broaden the patient's antibiotics until his sputum culture is finalized. 2. Agree with continuing scheduled bronchodilators along with IV steroids. 3. Continue to wean supplemental oxygen to maintain saturations at or above 90%. 4. Initiate bronchopulmonary hygiene with incentive spirometry and PEP therapy. 5. Continue nicotine replacement therapy. IMPRESSIONS: 1. Acute hypoxemic respiratory insufficiency secondary to bibasilar pneumonia The patient's chest CT did reveal evidence of bibasilar pneumonia, right greater than left. Sputum culture is currently growing a gram-negative. At this time, I am going to broaden the patient's antibiotics until his infectious workup is finalized. I agree with continuing scheduled bronchodilators and IV steroids. Continue to wean supplemental oxygen to maintain saturations at or above 90%. Would encourage bronchopulmonary hygiene in the form of incentive spirometer and PEP therapy. 2. Baseline mild COPD with exacerbation Continue scheduled bronchodilators along with IV steroids. The patient undoubtedly needs to follow-up in the pulmonary medicine clinic for further optimization of his baseline pulmonary status. 3. Tobacco dependency Smoking cessation is strongly advised. Agree with continuing nicotine replacement therapy. 4. Coronary artery disease/hypertension/hyperlipidemia Complicates care, management, recovery and prognosis. Continue home medications as indicated. This note was generated with [employer] software. It may contain incorrect words, spelling, and punctuation that were not noted in checking the note before signing. Code Visit Inpatient E&M: 26305 Init Hosp L3
[2018-10-08 16:55] LABS: Bedside Glucose 318 mg/dL (70-110)
[2018-10-08] MEDS: oxyCODONE 5 MG Tablet 7.5 MG PO (17:00)
[2018-10-08] MEDS: Acetaminophen 325 MG Tablet 650 MG PO (17:01)
[2018-10-08] MEDS: Rosuvastatin 20 MG Tablet 40 MG PO (22:18)
[2018-10-08 22:31] LABS: Bedside Glucose 349 mg/dL (70-110)
[2018-10-09] VITALS (19 sets, daily range): BP systolic 100–134; BP diastolic 56–64; PULSE 58–76; RESP 16–20; TEMP 36.2–36.6; O2SAT 90–96
[2018-10-09] MEDS: Acetaminophen 325 MG Tablet 650 MG PO ×3 (04:05→17:56)
[2018-10-09] MEDS: oxyCODONE 5 MG Tablet 7.5 MG PO ×2 (04:05→11:08)
[2018-10-09] MEDS: Ipratropium/Albuterol Sulfate 3 ML AMPUL.NEB INHALATION ×6 (04:14→22:25)
--- NOTE | 2018-10-09 06:50 | PCM.PROGNOTE ---
Subjective: The patient was seen and examined at the bedside this morning. Events from the last 24 hours have been reviewed. The patient is currently afebrile, hemodynamically stable and maintaining appropriate oxygen saturations on 4 L/min via nasal cannula. The patient is currently receiving an aerosol treatment and does report some interval improvement in his breathing quality. Objective: The patient's most recent lab work, culture data and imaging studies have all been personally reviewed. Pulmonary function studies revealed evidence of an irreversible mild large airways obstructive ventilatory defect with associated symmetric reduction in diffusing capacity. A CT abdomen/pelvis obtained in the ED did confirm evidence of a right lower lobe infiltrate. CT chest, dated October 07, did again confirm evidence of bibasilar pulmonary infiltrates, right greater than left. Blood cultures have been unrevealing to date. Strep and urine Legionella antigens were both negative. Respiratory viral panel was negative. Sputum culture is positive for Haemophilus influenza. - Physical Exam General: Alert, Oriented x3, Cooperative, No apparent distress HEENT: Atraumatic, PERRLA, Normocephalic Oral: No Gingival or Mucosal Lesions/ Ulcerations Neck: Supple, No Nodes, Trachea Midline Lungs: - - Improved air movement from previous. However, the patient still has bilateral expiratory wheezes. Cardiovascular: Regular rate, Regular Rhythm, Normal S1, Normal S2, No murmurs Abdomen: Bowel Sounds Present, Soft, Non Tender, Non-Distended Extremities: No clubbing, No cyanosis, No edema Skin: No breakdown Musculoskeletal: No Tenderness to Palpation of Joints or Extremities, No Muscle Wasting Lymphatic: No Cervical, Supraclavicular, or Inguinal Adenopathy Neurological: Cranial nerves II-XII grossly intact, Neuro grossly intact Psych/Mental Status: Alert and oriented to time, place, person, mood and affect Vital Signs Temp Pulse Resp BP Pulse Ox 36.6 C 61 16 134/58 H 96 10/09/18 02:20 10/09/18 04:52 10/09/18 04:15 10/09/18 02:20 10/09/18 02:20 Oxygen Flow Rate (L/min) 4 Oxygen Delivery Method Nasal Cannula Weight: 195 lb 12.328 oz Body Mass Index (BMI) 28.9 Intake and Output for Last 24 Hours 10/07/18 10/08/18 10/09/18 23:59 23:59 23:59 Intake Total 1000 / 1000 1180 / 1180 390 / 390 Output Total 100 / 100 Balance 1000 / 1000 1180 / 1180 290 / 290 Microbiology Past 72 Hours 10/06/18 17:00 Gram Stain - Final Sputum, Expectorated/Coughed Respiratory Culture - Final Haemophilus influenzae 10/07/18 11:00 Respiratory Panel (PCR) - Final Mucosa - Nasopharyngeal 10/06/18 16:50 Legionella Antigen - Final Urine, Clean Catch 10/06/18 16:50 Streptococcus pneumoniae Antigen (M - Final Urine, Clean Catch Laboratory Tests Past 24 Hrs 10/08/18 07:45 Serum Osmolality 295 POC Glucose 10/08/18 10/08/18 10/08/18 22:15 16:45 12:06 POC Glucose 349 H 318 H 316 H 10/08/18 06:48 POC Glucose 238 H Labs (Last 48 Hours) 10/07/18 10/07/18 10/07/18 05:14 07:30 07:30 WBC 9.2 RBC 4.64 Hgb 13.6 Hct 41.9 MCV 90.3 MCH 29.3 MCHC 32.5 RDW 13.6 RDW Differential 45.0 H Plt Count 223 MPV 9.8 Immature Gran % (Auto) 0.200 Neut % (Auto) 88.3 H Lymph % (Auto) 7.6 L [place] % (Auto) 3.9 Eos % (Auto) 0.0 Baso % (Auto) 0.0 Absolute Neuts (auto) 8.1 H Absolute Lymphs (auto) 0.70 L Total Counted Not Reportable Not Reportable Sodium 132 L Potassium 3.2 L Chloride 97 L Carbon Dioxide 27.0 Anion Gap 8 BUN 40 H Creatinine 1.87 H Estim Creat Clear Calc 38.33 Est GFR (MDRD) Af Amer 47 L Est GFR (MDRD) Non-Af 38 L BUN/Creatinine Ratio 21.4 H Glucose 231 H Serum Osmolality Calcium 8.9 B-Natriuretic Peptide POC Glucose 10/07/18 10/07/18 10/07/18 07:30 21:35 23:51 WBC RBC Hgb Hct MCV MCH MCHC RDW RDW Differential Plt Count MPV Immature Gran % (Auto) Neut % (Auto) Lymph % (Auto) [place] % (Auto) Eos % (Auto) Baso % (Auto) Absolute Neuts (auto) Absolute Lymphs (auto) Total Counted Sodium Potassium Chloride Carbon Dioxide Anion Gap BUN Creatinine Estim Creat Clear Calc Est GFR (MDRD) Af Amer Est GFR (MDRD) Non-Af BUN/Creatinine Ratio Glucose Serum Osmolality Calcium B-Natriuretic Peptide 134.7 H POC Glucose 337 H 340 H 10/08/18 10/08/18 10/08/18 05:04 05:04 06:48 WBC 15.7 H RBC 4.16 L Hgb 12.4 L Hct 37.9 L MCV 91.1 MCH 29.8 MCHC 32.7 RDW 13.3 RDW Differential 43.3 Plt Count 241 MPV 10.6 Immature Gran % (Auto) 0.300 Neut % (Auto) 92.5 H Lymph % (Auto) 4.6 L [place] % (Auto) 2.5 Eos % (Auto) 0.0 Baso % (Auto) 0.1 Absolute Neuts (auto) 14.5 H Absolute Lymphs (auto) 0.72 L Total Counted Not Reportable Sodium 132 L Potassium 3.5 Chloride 99 Carbon Dioxide 25.0 Anion Gap 8 BUN 38 H Creatinine 1.67 H Estim Creat Clear Calc 42.92 Est GFR (MDRD) Af Amer 53 L Est GFR (MDRD) Non-Af 44 L BUN/Creatinine Ratio 22.8 H Glucose 281 H Serum Osmolality Calcium 8.5 B-Natriuretic Peptide POC Glucose 238 H 10/08/18 10/08/18 10/08/18 07:45 12:06 16:45 WBC RBC Hgb Hct MCV MCH MCHC RDW RDW Differential Plt Count MPV Immature Gran % (Auto) Neut % (Auto) Lymph % (Auto) [place] % (Auto) Eos % (Auto) Baso % (Auto) Absolute Neuts (auto) Absolute Lymphs (auto) Total Counted Sodium Potassium Chloride Carbon Dioxide Anion Gap BUN Creatinine Estim Creat Clear Calc Est GFR (MDRD) Af Amer Est GFR (MDRD) Non-Af BUN/Creatinine Ratio Glucose Serum Osmolality 295 Calcium B-Natriuretic Peptide POC Glucose 316 H 318 H 10/08/18 22:15 WBC RBC Hgb Hct MCV MCH MCHC RDW RDW Differential Plt Count MPV Immature Gran % (Auto) Neut % (Auto) Lymph % (Auto) [place] % (Auto) Eos % (Auto) Baso % (Auto) Absolute Neuts (auto) Absolute Lymphs (auto) Total Counted Sodium Potassium Chloride Carbon Dioxide Anion Gap BUN Creatinine Estim Creat Clear Calc Est GFR (MDRD) Af Amer Est GFR (MDRD) Non-Af BUN/Creatinine Ratio Glucose Serum Osmolality Calcium B-Natriuretic Peptide POC Glucose 349 H Microbiology 10/06/18 17:00 Sputum, Expectorated/Coughed Gram Stain - Final 10/06/18 17:00 Sputum, Expectorated/Coughed Respiratory Culture - Final Haemophilus influenzae 10/07/18 11:00 Mucosa - Nasopharyngeal Respiratory Panel (PCR) - Final Clinical Impression(s) from Imaging Studies Abdomen/Pelvis CT 10/06/18 07:08 IMPRESSION: 1. Right lower lobe interstitial pneumonitis, new when compared to 06/16/2018. 2. Mild thickening of the urinary bladder wall is also a new finding. 3. No suspicious mass or acute abnormality in the abdomen and pelvis. 4. Pronounced multilevel degenerative disc space narrowing with degenerative vacuum phenomenon at L1-L2, L2-L3, L3-L4 and L5-S1 disc space levels. 5. No other additional findings or changes when compared to 06/16/2018. Electronically Signed: Davi Mendoza MD at 9:09 EDT , Service support , Chest X-Ray 10/06/18 07:08 IMPRESSION: 1. No acute cardiopulmonary pathology. 2. 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 High resolution CT chest will be helpful for further evaluation if desired. 3. No significant interval change when compared to 09/21/2018. Electronically Signed: Davi Mendoza MD at 9:00 EDT , Service support , Chest CT 10/07/18 08:19 IMPRESSION: Bibasilar pulmonary infiltrates worse on the right side. Follow-up is recommended. Electronically Signed: Arcenio Leary, at 9:51 EDT , Service support , Medical Necessity - Tobacco Use Smoking Status: Current some day smoker Assessment/Plan All Active Problems (Last Updated 05/24/18 @ 14:48 by Kana Khan MD) COPD exacerbation (Acute) Abdominal pain (Resolved) Acute non-ST segment elevation myocardial infarction (Resolved) NSTEMI (non-ST elevated myocardial infarction) (Resolved) Non-STEMI (non-ST elevated myocardial infarction) (Resolved) RECOMMENDATIONS: 1. Given the patient's positive sputum culture, will plan to de-escalate antibiotics today. 2. Continue scheduled bronchodilators along with IV steroids. Transition to prednisone beginning tomorrow. Anticipate prolonged steroid taper. 3. Continue to wean supplemental oxygen to maintain saturations at or above 90%. 4. Continue bronchopulmonary hygiene with incentive spirometry and PEP therapy. 5. Continue nicotine replacement therapy. 6. Perform walking oximetry study prior to consideration for discharge from the hospital. 7. The patient should ideally follow up in the pulmonary medicine clinic within 2 weeks of his discharge from the hospital. IMPRESSIONS: 1. Acute hypoxemic respiratory insufficiency secondary to Haemophilus influenza pneumonia The patient's chest CT did reveal evidence of bibasilar pneumonia, right greater than left. Sputum culture was noted to be positive for Haemophilus influenza. The patient's antibiotics were de-escalated this morning to Augmentin. Recommend continuing antibiotics for 7 days. Continue scheduled bronchodilators and steroids as ordered. Plan to transition to prednisone 40 mg daily beginning tomorrow. At the time of his discharge, I would taper his prednisone by 10 mg every 3 days. I do also anticipate that the patient will likely have a supplemental oxygen requirement at discharge. I stressed the importance of outpatient pulmonary follow-up to the patient. I recommend that he follow-up in the pulmonary medicine clinic within 2 weeks of his discharge from the hospital. 2. Baseline mild COPD with exacerbation Continue scheduled bronchodilators along with steroids. The patient undoubtedly needs to follow-up in the pulmonary medicine clinic for further optimization of his baseline pulmonary status. 3. Tobacco dependency Smoking cessation is strongly advised. Continue nicotine replacement therapy as ordered. 4. Coronary artery disease/hypertension/hyperlipidemia Complicates care, management, recovery and prognosis. Continue home medications as indicated. This note was generated with [employer] software. It may contain incorrect words, spelling, and punctuation that were not noted in checking the note before signing. Code Visit Inpatient E&M: 00846 Subs Hosp L2
[2018-10-09] MEDS: Insulin Lispro 100 UNIT/ML INSULN.PEN SC ×4 (06:52→23:00)
[2018-10-09 07:01] LABS: Bedside Glucose 203 mg/dL (70-110)
[2018-10-09 08:13] LABS: Absolute Lymphocyte Count 0.53 X10^3/ul (0.83-4.51); Absolute Neutrophil Count 11.8 X10^3/uL (2.0-7.7); Hematocrit 39.7 % (40-54); Lymphocyte # 0.53 X10^3/ul (4.0); Lymphocyte % 4.2 % (19-41); Mean Corp Hgb Conc 32.7 g/gl (32-36); Mean Corpuscular Volume 91.5 fL (80-94); Mean Platelet Vol. 10.4 fl (6.2-12.0); Monocyte# 0.34 X10^3/uL; Monocyte% 2.7 % (0-10); Neutrophil # 11.79 X10^3/uL (2.7-7.7); Neutrophil % 92.9 % (47-70); Platelet Count 265 K/mm3 (150-450); RBC Distribution Width CV 13.5 % (11.6-14.6); RBC Distribution Width SD 44.5 fl (35.1-43.9); Red Blood Count 4.34 M/mm3 (4.6-6.2); White Blood Count 12.7 K/mm3 (4.4-11.0)
[2018-10-09 08:15] LABS: Differential Indicated SCAN CRITERIA MET; POSITIVE COUNT NO; POSITIVE DIFFERENTIAL YES; POSITIVE MORPHOLOGY NO
[2018-10-09 08:37] LABS: Anion Gap 8 (5-15); BUN 38 mg/dL (7-18); Calcium,Total 8.8 mg/dL (8.5-10.1); Chloride 101 mmol/L (98-107); Creatinine, Serum 1.41 mg/dL (0.70-1.30); EST Glomerular Filtration Rate 53 mL/min (>60); Est Glom Filt Rate - Afr Amer 64 mL/min (>60); Estimated Creatinine Clearance 50.84 ml/min; Glucose 189 mg/dL (74-106); Potassium 3.9 mmol/L (3.5-5.1); Sodium Level 138 mmol/L (136-145)
--- NOTE | 2018-10-09 10:32 | PCM.PN.HOSP ---
Subjective: Patient seen and examined. Shortness of breath has improved slightly today though he remains on 4 L of oxygen. Wheezing is improved and his cough is improving and he is expectorating more. He denies any fever or chills but admits to some abdominal pain on account of the incessant coughing. He denies any chest pain or palpitations, dizziness, diarrhea vomiting. Review of systems otherwise negative. Labs and vitals reviewed. Antibioitics were broadened by pulmonary yesterday to IV Zosyn. Vitals/I&O's: Vital Signs Temp Pulse Resp BP Pulse Ox 98 F 60 16 134/58 H 93 10/09/18 02:20 10/09/18 07:41 10/09/18 07:41 10/09/18 02:20 10/09/18 07:41 Oxygen Flow Rate (L/min) 4 Oxygen Delivery Method Nasal Cannula Weight: 195 lb 12.328 oz Body Mass Index (BMI) 28.9 Intake and Output for Last 24 Hours 10/07/18 10/08/18 10/09/18 23:59 23:59 23:59 Intake Total 1000 / 1000 1180 / 1180 725 / 725 Output Total 100 / 100 Balance 1000 / 1000 1180 / 1180 625 / 625 General: Alert, Oriented x3, Cooperative HEENT: Atraumatic, PERRLA, EOMI, Normocephalic Oral: Dry Mucosa Neck: Supple, No JVD, Negative Carotid Bruits Lungs: Short of Breath, - -mild wheezing in all lung bui, with bilateral few crackles. on 4L of oxygen Cardiovascular: Regular rate, Regular Rhythm, Normal S1, Normal S2, No murmurs Abdomen: Bowel Sounds Present Extremities: No clubbing, No cyanosis, No edema, Capillary Refill Less than 3 Seconds Skin: No rashes, No breakdown Musculoskeletal: No Tenderness to Palpation of Joints or Extremities Lymphatic: No Cervical, Supraclavicular, or Inguinal Adenopathy Neurological: Cranial nerves II-XII grossly intact, Neuro grossly intact Psych/Mental Status: Normal Affect, Appropriate, Alert and oriented to time, place, person, mood and affect Microbiology Past 72 Hours 10/06/18 17:00 Sputum, Expectorated/Coughed Gram Stain - Final 10/06/18 17:00 Sputum, Expectorated/Coughed Respiratory Culture - Final Haemophilus influenzae 10/07/18 11:00 Mucosa - Nasopharyngeal Respiratory Panel (PCR) - Final 10/06/18 16:50 Urine, Clean Catch Legionella Antigen - Final 10/06/18 16:50 Urine, Clean Catch Streptococcus pneumoniae Antigen (M - Final Laboratory Results 10/08/18 12:06: POC Glucose 316 H 10/08/18 16:45: POC Glucose 318 H 10/08/18 22:15: POC Glucose 349 H 10/09/18 06:51: POC Glucose 203 H 10/09/18 07:36: WBC 12.7 H, RBC 4.34 L, Hgb 13.0, Hct 39.7 L, MCV 91.5, MCH 30.0, MCHC 32.7, RDW 13.5, RDW Differential 44.5 H, Plt Count 265, MPV 10.4, Immature Gran % (Auto) 0.200, Neut % (Auto) 92.9 H, Lymph % (Auto) 4.2 L, [place] % (Auto) 2.7, Eos % (Auto) 0.0, Baso % (Auto) 0.0, Absolute Neuts (auto) 11.8 H, Absolute Lymphs (auto) 0.53 L, Total Counted Not Reportable 10/09/18 07:36: Sodium 138, Potassium 3.9, Chloride 101, Carbon Dioxide 29.0, Anion Gap 8, BUN 38 H, Creatinine 1.41 H, Estim Creat Clear Calc 50.84, Est GFR (MDRD) Af Amer 64, Est GFR (MDRD) Non-Af 53 L, BUN/Creatinine Ratio 27.0 H, Glucose 189 H, Calcium 8.8 Diagnostic Data Abdomen/Pelvis CT 10/06/18 07:08 IMPRESSION: 1. Right lower lobe interstitial pneumonitis, new when compared to 06/16/2018. 2. Mild thickening of the urinary bladder wall is also a new finding. 3. No suspicious mass or acute abnormality in the abdomen and pelvis. 4. Pronounced multilevel degenerative disc space narrowing with degenerative vacuum phenomenon at L1-L2, L2-L3, L3-L4 and L5-S1 disc space levels. 5. No other additional findings or changes when compared to 06/16/2018. Electronically Signed: Davi Mendoza MD at 9:09 EDT , Service support , Chest X-Ray 10/06/18 07:08 IMPRESSION: 1. No acute cardiopulmonary pathology. 2. 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 High resolution CT chest will be helpful for further evaluation if desired. 3. No significant interval change when compared to 09/21/2018. Electronically Signed: Davi Mendoza MD at 9:00 EDT , Service support , Chest CT 10/07/18 08:19 IMPRESSION: Bibasilar pulmonary infiltrates worse on the right side. Follow-up is recommended. Electronically Signed: Arcenio Leary, at 9:51 EDT , Service support , Current Medications Acetaminophen (Tylenol) 650 mg PO Q6H PRN PRN PRN Reason: PAIN Last Admin: 10/09/18 04:05 Dose: 650 mg Albuterol/Ipratropium (Duoneb) 3 ml INHALATION Q4HWA.RT [facility] Last Admin: 10/09/18 07:41 Dose: 3 ml [facility]op[facility]) [facility] Last Admin: 10/08/18 09:39 Dose: 300 mg Amoxicillin/Clavulanate Potassium (Augmentin Tablet) 875 mg PO BID [facility] Stop: 10/15/18 22:01 Aspirin (Ecotrin) 325 mg PO DAILY@0800 [facility] Last Admin: 10/08/18 09:39 Dose: 325 mg Clopidogrel Bisulfate (Plavix) 75 mg PO DAILY [facility] Last Admin: 10/08/18 09:42 Dose: 75 mg Enoxaparin Sodium (Lovenox) 30 mg SC DAILY@1000 [facility] Last Admin: 10/08/18 09:41 Dose: 30 mg Furosemide (Lasix) 40 mg PO DAILY [facility] Last Admin: 10/08/18 09:41 Dose: 40 mg Guaifenesin (Mucinex) 1,200 mg PO BID [facility] Last Admin: 10/08/18 22:18 Dose: 1,200 mg Insulin Human Lispro (Humalog Kwikpen (Bkc)) 0 unit SC ACHS [facility]; Protocol Last Admin: 10/09/18 06:52 Dose: 4 u Isosorbide Mononitrate (Imdur) 30 mg PO DAILY [facility] Last Admin: 10/08/18 09:40 Dose: 30 mg Lisinopril (Zestril) 2.5 mg PO DAILY [facility] Last Admin: 10/08/18 09:42 Dose: 2.5 mg Magnesium Hydroxide (Milk Of Magnesia) 30 ml PO DAILY PRN PRN PRN Reason: Constipation Methylprednisolone (Solu-Medrol) 40 mg IV Q8 [facility] Last Admin: 10/09/18 06:52 Dose: 40 mg Metoprolol Succinate (Toprol Xl (Beta Sina)) 100 mg PO DAILY [facility] Last Admin: 10/08/18 09:42 Dose: 100 mg Nicotine (Nicoderm Cq (Pbkc)) 21 mg TRANSDERM. DAILY [facility] Last Admin: 10/08/18 09:41 Dose: 21 mg Nitroglycerin (Nitrostat) 0.4 mg SUBLINGUAL Q5M PRN PRN Reason: Chest Pain Nutritional Formula (Lactose Free) (Glucerna Shake) 120 ml PO 4X/DAY [facility] Last Admin: 10/08/18 22:16 Dose: 120 ml Oxycodone HCl (Oxyir) 7.5 mg PO 4X/DAY PRN PRN Reason: PAIN Last Admin: 10/09/18 04:05 Dose: 7.5 mg Pantoprazole Sodium (Protonix) 40 mg PO DAILY [facility] Last Admin: 10/08/18 09:42 Dose: 40 mg Rosuvastatin Calcium (Crestor) 40 mg PO QHS [facility] Last Admin: 10/08/18 22:18 Dose: 40 mg Sodium Chloride () 5 - 15 ml IV UD PRN PRN Reason: SALINE FLUSH Spironolactone (Aldactone) 25 mg PO DAILY [facility] Last Admin: 10/08/18 09:40 Dose: 25 mg Medical Necessity - Tobacco Use Smoking Status: Current some day smoker Assessment/Plan All Active Problems (Last Updated 05/24/18 @ 14:48 by Kana Khan MD) COPD exacerbation (Acute) Abdominal pain (Resolved) Acute non-ST segment elevation myocardial infarction (Resolved) NSTEMI (non-ST elevated myocardial infarction) (Resolved) Non-STEMI (non-ST elevated myocardial infarction) (Resolved) 68 y/o admitted with a complaint of productive cough and generalised malaise 1. Post viral pneumonia and bronchial hyperresponsiveness SOB is improving, though he is still on 4L of oxygen wbc is down to 12.7 antibiotics broadened to IV zosyn on guaifenesin, expectorating more sputum cultured H. influenzae; urine for strep and Legionella were negative. pulmo on board 2. Chest pain, likely pleuritic relieved by morphine and oxycodone. Improving. EKG showed T wave inversions in leads I and aVL which were also present on EKG from August 2018. Po aspirin 81mg daily. SL nitroglycerin as needed 3. Acute hypoxic respiratory insufficiency due to post viral pneumonia and bronchial hyperresponsiveness still on 4L of oxygen, though he is beginning to feel better on breathing treatments and steroids. Chest physiotherapy. Titrate oxygen to maintain saturation more than 90%. pulmo on board will get 2D echo as well. 4. Hypokalemia: resolved. K is 3.9 today 5. Hyponatremia: Resolved. Sodium is up to 138 today. 6. CKD 3: Cr is 1.41 today. baseline is ~ 1.97. WIll monitor 7. Chronic HFrEF; EF is 25%, per echo done in 2017. on PO lasix 40mg daily. BNP is 134.7. Also has a pacemaker in place. 8. CAD s/p CABG: on aspirin, plavix and imdur. 9. Hypertension: On metoprolol, lisinopril and spironolactone. DVT prophylaxis: lovenox-renally dosed Code Visit Inpatient E&M: [id number] [facility] L3
--- NOTE | 2018-10-09 10:39 | PN_ITS ---
Subjective: Patient seen and examined. Shortness of breath has improved slightly today though he remains on 4 L of oxygen. Wheezing is improved and his cough is improving and he is expectorating more. He denies any fever or chills but admits to some abdominal pain on account of the incessant coughing. He denies any chest pain or palpitations, dizziness, diarrhea vomiting. Review of systems otherwise negative. Labs and vitals reviewed. Antibioitics were broadened by pulmonary yesterday to IV Zosyn. Vitals/I&O's: Vital Signs Temp Pulse Resp BP Pulse Ox 98 F 60 16 134/58 H 93 10/09/18 02:20 10/09/18 07:41 10/09/18 07:41 10/09/18 02:20 10/09/18 07:41 Oxygen Flow Rate (L/min) 4 Oxygen Delivery Method Nasal Cannula Weight: 195 lb 12.328 oz Body Mass Index (BMI) 28.9 Intake and Output for Last 24 Hours 10/07/18 10/08/18 10/09/18 23:59 23:59 23:59 Intake Total 1000 / 1000 1180 / 1180 725 / 725 Output Total 100 / 100 Balance 1000 / 1000 1180 / 1180 625 / 625 General: Alert, Oriented x3, Cooperative HEENT: Atraumatic, PERRLA, EOMI, Normocephalic Oral: Dry Mucosa Neck: Supple, No JVD, Negative Carotid Bruits Lungs: Short of Breath, - -mild wheezing in all lung bui, with bilateral few crackles. on 4L of oxygen Cardiovascular: Regular rate, Regular Rhythm, Normal S1, Normal S2, No murmurs Abdomen: Bowel Sounds Present Extremities: No clubbing, No cyanosis, No edema, Capillary Refill Less than 3 Seconds Skin: No rashes, No breakdown Musculoskeletal: No Tenderness to Palpation of Joints or Extremities Lymphatic: No Cervical, Supraclavicular, or Inguinal Adenopathy Neurological: Cranial nerves II-XII grossly intact, Neuro grossly intact Psych/Mental Status: Normal Affect, Appropriate, Alert and oriented to time, place, person, mood and affect Microbiology Past 72 Hours 10/06/18 17:00 Sputum, Expectorated/Coughed Gram Stain - Final 10/06/18 17:00 Sputum, Expectorated/Coughed Respiratory Culture - Final Haemophilus influenzae 10/07/18 11:00 Mucosa - Nasopharyngeal Respiratory Panel (PCR) - Final 10/06/18 16:50 Urine, Clean Catch Legionella Antigen - Final 10/06/18 16:50 Urine, Clean Catch Streptococcus pneumoniae Antigen (M - Final Laboratory Results 10/08/18 12:06: POC Glucose 316 H 10/08/18 16:45: POC Glucose 318 H 10/08/18 22:15: POC Glucose 349 H 10/09/18 06:51: POC Glucose 203 H 10/09/18 07:36: WBC 12.7 H, RBC 4.34 L, Hgb 13.0, Hct 39.7 L, MCV 91.5, MCH 3 0.0, MCHC 32.7, RDW 13.5, RDW Differential 44.5 H, Plt Count 265, MPV 10.4, Immature Gran % (Auto) 0.200, Neut % (Auto) 92.9 H, Lymph % (Auto) 4.2 L, [place] % (Auto) 2.7, Eos % (Auto) 0.0, Baso % (Auto) 0.0, Absolute Neuts (auto) 11.8 H, Absolute Lymphs (auto) 0.53 L, Total Counted Not Reportable 10/09/18 07:36: Sodium 138, Potassium 3.9, Chloride 101, Carbon Dioxide 29.0, Anion Gap 8, BUN 38 H, Creatinine 1.41 H, Estim Creat Clear Calc 50.84, Est GFR (MDRD) Af Amer 64, Est GFR (MDRD) Non-Af 53 L, BUN/Creatinine Ratio 27.0 H, Glucose 189 H, Calcium 8.8 Diagnostic Data Abdomen/Pelvis CT 10/06/18 07:08 IMPRESSION: 1. Right lower lobe interstitial pneumonitis, new when compared to 06/16/2018. 2. Mild thickening of the urinary bladder wall is also a new finding. 3. No suspicious mass or acute abnormality in the abdomen and pelvis. 4. Pronounced multilevel degenerative disc space narrowing with degenerative vacuum phenomenon at L1-L2, L2-L3, L3-L4 and L5-S1 disc space levels. 5. No other additional findings or changes when compared to 06/16/2018. Electronically Signed: Davi Mendoza MD at 9:09 EDT , Service support , Chest X-Ray 10/06/18 07:08 IMPRESSION: 1. No acute cardiopulmonary pathology. 2. 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 High resolution CT chest will be helpful for further evaluation if desired. 3. No significant interval change when compared to 09/21/2018. Electronically Signed: Davi Mendoza MD at 9:00 EDT , Service support , Chest CT 10/07/18 08:19 IMPRESSION: Bibasilar pulmonary infiltrates worse on the right side. Follow-up is recommended. Electronically Signed: Arcenio Leary, at 9:51 EDT , Service support , Current Medications Acetaminophen (Tylenol) 650 mg PO Q6H PRN PRN PRN Reason: PAIN Last Admin: 10/09/18 04:05 Dose: 650 mg Albuterol/Ipratropium (Duoneb) 3 ml INHALATION Q4HWA.RT [facility] Last Admin: 10/09/18 07:41 Dose: 3 ml [facility]) [facility] Last Admin: 10/08/18 09:39 Dose: 300 mg Amoxicillin/Clavulanate Potassium (Augmentin Tablet) 875 mg PO BID [facility] Stop: 10/15/18 22:01 Aspirin (Ecotrin) 325 mg PO DAILY@0800 [facility] Last Admin: 10/08/18 09:39 Dose: 325 mg Clopidogrel Bisulfate (Plavix) 75 mg PO DAILY [facility] Last Admin: 10/08/18 09:42 Dose: 75 mg Enoxaparin Sodium (Lovenox) 30 mg SC DAILY@1000 [facility] Last Admin: 10/08/18 09:41 Dose: 30 mg Furosemide (Lasix) 40 mg PO DAILY [facility] Last Admin: 10/08/18 09:41 Dose: 40 mg Guaifenesin (Mucinex) 1,200 mg PO BID [facility] Last Admin: 10/08/18 22:18 Dose: 1,200 mg Insulin Human Lispro (Humalog Kwikpen ([facility])) 0 unit SC ACHS [facility]; Protocol Last Admin: 10/09/18 06:52 Dose: 4 u Isosorbide Mononitrate (Imdur) 30 mg PO DAILY [facility] Last Admin: 10/08/18 09:40 Dose: 30 mg Lisinopril (Zestril) 2.5 mg PO DAILY [facility] Last Admin: 10/08/18 09:42 Dose: 2.5 mg Magnesium Hydroxide (Milk Of Magnesia) 30 ml PO DAILY PRN PRN PRN Reason: Constipation Methylprednisolone (Solu-Medrol) 40 mg IV Q8 [facility] Last Admin: 10/09/18 06:52 Dose: 40 mg Metoprolol Succinate (Toprol Xl (Beta Sina)) 100 mg PO DAILY [facility] Last Admin: 10/08/18 09:42 Dose: 100 mg Nicotine (Nicoderm Cq (Pbkc)) 21 mg TRANSDERM. DAILY [facility] Last Admin: 10/08/18 09:41 Dose: 21 mg Nitroglycerin (Nitrostat) 0.4 mg SUBLINGUAL Q5M PRN PRN Reason: Chest Pain Nutritional Formula (Lactose Free) (Glucerna Shake) 120 ml PO 4X/DAY [facility] Last Admin: 10/08/18 22:16 Dose: 120 ml Oxycodone HCl (Oxyir) 7.5 mg PO 4X/DAY PRN PRN Reason: PAIN Last Admin: 10/09/18 04:05 Dose: 7.5 mg Pantoprazole Sodium (Protonix) 40 mg PO DAILY [facility] Last Admin: 10/08/18 09:42 Dose: 40 mg Rosuvastatin Calcium (Crestor) 40 mg PO QHS [facility] Last Admin: 10/08/18 22:18 Dose: 40 mg Sodium Chloride () 5 - 15 ml IV UD PRN PRN Reason: SALINE FLUSH Spironolactone (Aldactone) 25 mg PO DAILY [facility] Last Admin: 10/08/18 09:40 Dose: 25 mg Medical Necessity - Tobacco Use Smoking Status: Current some day smoker Assessment/Plan All Active Problems (Last Updated 05/24/18 @ 14:48 by Kana Khan MD) COPD exacerbation (Acute) Abdominal pain (Resolved) Acute non-ST segment elevation myocardial infarction (Resolved) NSTEMI (non-ST elevated myocardial infarction) (Resolved) Non-STEMI (non-ST elevated myocardial infarction) (Resolved) 68 y/o admitted with a complaint of productive cough and generalised malaise 1. Post viral pneumonia and bronchial hyperresponsiveness * SOB is improving, though he is still on 4L of oxygen * wbc is down to 12.7 * antibiotics broadened to IV zosyn * on guaifenesin, expectorating more * sputum cultured H. influenzae; urine for strep and Legionella were negative. * pulmo on board * * 2. Chest pain, likely pleuritic * relieved by morphine and oxycodone. Improving. * EKG showed T wave inversions in leads I and aVL which were also present on EKG from August 2018. * Po aspirin 81mg daily. * SL nitroglycerin as needed * 3. Acute hypoxic respiratory insufficiency due to post viral pneumonia and bronchial hyperresponsiveness * still on 4L of oxygen, though he is beginning to feel better * on breathing treatments and steroids. * Chest physiotherapy. Titrate oxygen to maintain saturation more than 90%. * pulmo on board * will get 2D echo as well. * 4. Hypokalemia: resolved. K is 3.9 today 5. Hyponatremia: Resolved. Sodium is up to 138 today. 6. CKD 3: Cr is 1.41 today. baseline is ~ 1.97. WIll monitor 7. Chronic HFrEF; EF is 25%, per echo done in 2017. on PO lasix 40mg daily. BNP is 134.7. Also has a pacemaker in place. 8. CAD s/p CABG: on aspirin, plavix and imdur. 9. Hypertension: On metoprolol, lisinopril and spironolactone. DVT prophylaxis: lovenox-renally dosed Code Visit Inpatient E&M: [id number] [facility] L3
[2018-10-09] MEDS: Lisinopril 2.5 MG Tablet PO (11:02)
[2018-10-09] MEDS: Clopidogrel Bisulfate 75 MG Tablet PO (11:02)
[2018-10-09] MEDS: Pantoprazole Sodium 40 MG Tablet PO (11:02)
[2018-10-09] MEDS: guaiFENesin 1,200 MG Tablet 1200 MG PO ×2 (11:02→22:37)
[2018-10-09] MEDS: Metoprolol(XL)Succ 100 MG Tablet PO (11:03)
[2018-10-09] MEDS: Furosemide 40 MG Tablet PO (11:03)
[2018-10-09] MEDS: Isosorbide Mononitrate 30 MG Tablet PO (11:03)
[2018-10-09] MEDS: Spironolactone 25 MG Tablet PO (11:04)
[2018-10-09] MEDS: Aspirin E.C. 325 MG Tablet PO (11:04)
[2018-10-09] MEDS: Allopurinol 300 MG Tablet PO (11:04)
[2018-10-09] MEDS: Enoxaparin 30 MG/0.3 ML Syringe SC (11:05)
[2018-10-09] MEDS: Amox/Clavulanate 875 MG Tablet PO ×2 (11:08→22:37)
[2018-10-09] MEDS: Glucerna Shake 120 ML LIQUID PO ×4 (11:14→22:57)
[2018-10-09 11:30] LABS: Bedside Glucose 322 mg/dL (70-110)
[2018-10-09 17:20] LABS: Bedside Glucose 311 mg/dL (70-110)
[2018-10-09] MEDS: oxyCODONE 5 MG Tablet 10 MG PO (17:56)
[2018-10-09] MEDS: Rosuvastatin 20 MG Tablet 40 MG PO (22:37)
[2018-10-09 23:26] LABS: Bedside Glucose 272 mg/dL (70-110)
[2018-10-10] VITALS (14 sets, daily range): BP systolic 100–132; BP diastolic 61–78; PULSE 60–92; RESP 16–20; TEMP 36.4–36.6; O2SAT 92–96
[2018-10-10] MEDS: oxyCODONE 5 MG Tablet 10 MG PO ×4 (00:04→19:38)
[2018-10-10] MEDS: Acetaminophen 325 MG Tablet 650 MG PO ×4 (00:04→19:37)
[2018-10-10] MEDS: Ipratropium/Albuterol Sulfate 3 ML AMPUL.NEB INHALATION ×4 (04:44→19:13)
--- NOTE | 2018-10-10 06:24 | PCM.PROGNOTE ---
Subjective: The patient was seen and examined at the bedside this morning. Events from the last 24 hours have been reviewed. The patient is currently afebrile, hemodynamically stable and maintaining appropriate oxygen saturations on 1 L/min via nasal cannula. The patient's IV antibiotics were in to p.o. Augmentin yesterday. The patient continues to report improvement in his shortness of breath and cough. Objective: The patient's most recent lab work, culture data and imaging studies have all been personally reviewed. Pulmonary function studies revealed evidence of an irreversible mild large airways obstructive ventilatory defect with associated symmetric reduction in diffusing capacity. A CT abdomen/pelvis obtained in the ED did confirm evidence of a right lower lobe infiltrate. CT chest, dated October 07, did again confirm evidence of bibasilar pulmonary infiltrates, right greater than left. Blood cultures have been unrevealing to date. Strep and urine Legionella antigens were both negative. Respiratory viral panel was negative. Sputum culture is positive for Haemophilus influenza. - Physical Exam General: Alert, Cooperative, No apparent distress HEENT: Atraumatic, PERRLA, Normocephalic Oral: No Gingival or Mucosal Lesions/ Ulcerations Neck: Supple, No Nodes, Trachea Midline Lungs: Diminished, - - Residual wheezing, although improved. Cardiovascular: Regular rate, Regular Rhythm, Normal S1, Normal S2, No murmurs Abdomen: Bowel Sounds Present, Soft, Non Tender Extremities: No clubbing, No cyanosis, No edema Skin: No breakdown Musculoskeletal: No Tenderness to Palpation of Joints or Extremities, No Muscle Wasting Lymphatic: No Cervical, Supraclavicular, or Inguinal Adenopathy Neurological: Cranial nerves II-XII grossly intact, Neuro grossly intact Psych/Mental Status: Alert and oriented to time, place, person, mood and affect Vital Signs Temp Pulse Resp BP Pulse Ox 36.4 C L 66 20 H 132/78 H 94 10/10/18 04:18 10/10/18 04:45 10/10/18 04:45 10/10/18 04:18 10/10/18 04:18 Oxygen Flow Rate (L/min) 1 Oxygen Delivery Method Nasal Cannula Weight: 195 lb 12.328 oz Body Mass Index (BMI) 28.9 Intake and Output for Last 24 Hours 10/08/18 10/09/18 10/10/18 23:59 23:59 23:59 Intake Total 1180 / 1180 2563.7 / 2563.7 595 / 595 Output Total 100 / 100 Balance 1180 / 1180 2463.7 / 2463.7 595 / 595 Microbiology Past 72 Hours 10/06/18 17:00 Gram Stain - Final Sputum, Expectorated/Coughed Respiratory Culture - Final Haemophilus influenzae 10/07/18 11:00 Respiratory Panel (PCR) - Final Mucosa - Nasopharyngeal Laboratory Tests Past 24 Hrs 10/09/18 10/09/18 07:36 07:36 WBC 12.7 H RBC 4.34 L Hgb 13.0 Hct 39.7 L MCV 91.5 MCH 30.0 MCHC 32.7 RDW 13.5 RDW Differential 44.5 H Plt Count 265 MPV 10.4 Immature Gran % (Auto) 0.200 Neut % (Auto) 92.9 H Lymph % (Auto) 4.2 L Saunders % (Auto) 2.7 Eos % (Auto) 0.0 Baso % (Auto) 0.0 Absolute Neuts (auto) 11.8 H Absolute Lymphs (auto) 0.53 L Total Counted Not Reportable Sodium 138 Potassium 3.9 Chloride 101 Carbon Dioxide 29.0 Anion Gap 8 BUN 38 H Creatinine 1.41 H Estim Creat Clear Calc 50.84 Est GFR (MDRD) Af Amer 64 Est GFR (MDRD) Non-Af 53 L BUN/Creatinine Ratio 27.0 H Glucose 189 H Calcium 8.8 POC Glucose 10/09/18 10/09/18 10/09/18 22:59 15:49 11:18 POC Glucose 272 H 311 H 322 H 10/09/18 06:51 POC Glucose 203 H Clinical Impression(s) from Imaging Studies Abdomen/Pelvis CT 10/06/18 07:08 IMPRESSION: 1. Right lower lobe interstitial pneumonitis, new when compared to 06/16/2018. 2. Mild thickening of the urinary bladder wall is also a new finding. 3. No suspicious mass or acute abnormality in the abdomen and pelvis. 4. Pronounced multilevel degenerative disc space narrowing with degenerative vacuum phenomenon at L1-L2, L2-L3, L3-L4 and L5-S1 disc space levels. 5. No other additional findings or changes when compared to 06/16/2018. Electronically Signed: Davi Mendoza MD at 9:09 EDT , Service support , Chest X-Ray 10/06/18 07:08 IMPRESSION: 1. No acute cardiopulmonary pathology. 2. 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 High resolution CT chest will be helpful for further evaluation if desired. 3. No significant interval change when compared to 09/21/2018. Electronically Signed: Davi Mendoza MD at 9:00 EDT , Service support , Chest CT 10/07/18 08:19 IMPRESSION: Bibasilar pulmonary infiltrates worse on the right side. Follow-up is recommended. Electronically Signed: Arcenio Sapphire, at 9:51 EDT , Service support , Medical Necessity - Tobacco Use Smoking Status: Current some day smoker Assessment/Plan All Active Problems (Last Updated 05/24/18 @ 14:48 by Kana Khan MD) COPD exacerbation (Acute) Abdominal pain (Resolved) Acute non-ST segment elevation myocardial infarction (Resolved) NSTEMI (non-ST elevated myocardial infarction) (Resolved) Non-STEMI (non-ST elevated myocardial infarction) (Resolved) RECOMMENDATIONS: 1. Continue Augmentin as ordered, with plans to complete a 7-day treatment course. 2. Continue scheduled bronchodilators. 3. Transition from IV steroids to prednisone 40 mg daily. 4. At discharge, recommend tapering the patient's prednisone by 10 mg every 3 days until follow-up in the pulmonary medicine clinic. 5. Continue to wean supplemental oxygen to maintain saturations at or above 90%. 6. Continue bronchopulmonary hygiene with incentive spirometry and PEP therapy. 7. Continue nicotine replacement therapy. 8. Perform walking oximetry study prior to consideration for discharge from the hospital. 9. The patient should ideally follow up in the pulmonary medicine clinic within 2 weeks of his discharge from the hospital. IMPRESSIONS: 1. Acute hypoxemic respiratory insufficiency secondary to Haemophilus influenza pneumonia The patient's chest CT did reveal evidence of bibasilar pneumonia, right greater than left. Sputum culture was noted to be positive for Haemophilus influenza. The patient's antibiotics were de-escalated to Augmentin, with plans to complete a 7-day treatment course. The patient's IV steroids will be transitioned to prednisone 40 mg daily by mouth beginning today. At the time of his discharge, I would taper his prednisone by 10 mg every 3 days. I do also anticipate that the patient may have a supplemental oxygen requirement at discharge. I stressed the importance of outpatient pulmonary follow-up to the patient. I recommend that he follow-up in the pulmonary medicine clinic within 2 weeks of his discharge from the hospital. 2. Baseline mild COPD with exacerbation Continue scheduled bronchodilators along with steroids. The patient undoubtedly needs to follow-up in the pulmonary medicine clinic for further optimization of his baseline pulmonary status. 3. Tobacco dependency Smoking cessation is strongly advised. Continue nicotine replacement therapy as ordered. 4. Coronary artery disease/hypertension/hyperlipidemia Complicates care, management, recovery and prognosis. Continue home medications as indicated. This note was generated with [employer] dictation software. It may contain incorrect words, spelling, and punctuation that were not noted in checking the note before signing. Code Visit Inpatient E&M: 39276 Subs Hosp L2
--- NOTE | 2018-10-10 06:28 | PN_ITS ---
Subjective: The patient was seen and examined at the bedside this morning. Events from the last 24 hours have been reviewed. The patient is currently afebrile, hemodynamically stable and maintaining appropriate oxygen saturations on 1 L/min via nasal cannula. The patient's IV antibiotics were in to p.o. Augmentin yesterday. The patient continues to report improvement in his shortness of breath and cough. Objective: The patient's most recent lab work, culture data and imaging studies have all been personally reviewed. Pulmonary function studies revealed evidence of an irreversible mild large airways obstructive ventilatory defect with associated symmetric reduction in diffusing capacity. A CT abdomen/pelvis obtained in the ED did confirm evidence of a right lower lobe infiltrate. CT chest, dated October 07, did again confirm evidence of bibasilar pulmonary infiltrates, right greater than left. Blood cultures have been unrevealing to date. Strep and urine Legionella antigens were both negative. Respiratory viral panel was negative. Sputum culture is positive for Haemophilus influenza. - Physical Exam General: Alert, Cooperative, No apparent distress HEENT: Atraumatic, PERRLA, Normocephalic Oral: No Gingival or Mucosal Lesions/ Ulcerations Neck: Supple, No Nodes, Trachea Midline Lungs: Diminished, - - Residual wheezing, although improved. Cardiovascular: Regular rate, Regular Rhythm, Normal S1, Normal S2, No murmurs Abdomen: Bowel Sounds Present, Soft, Non Tender Extremities: No clubbing, No cyanosis, No edema Skin: No breakdown Musculoskeletal: No Tenderness to Palpation of Joints or Extremities, No Muscle Wasting Lymphatic: No Cervical, Supraclavicular, or Inguinal Adenopathy Neurological: Cranial nerves II-XII grossly intact, Neuro grossly intact Psych/Mental Status: Alert and oriented to time, place, person, mood and affect Vital Signs Temp Pulse Resp BP Pulse Ox 36.4 C L 66 20 H 132/78 H 94 10/10/18 04:18 10/10/18 04:45 10/10/18 04:45 10/10/18 04:18 10/10/18 04:18 Oxygen Flow Rate (L/min) 1 Oxygen Delivery Method Nasal Cannula Weight: 195 lb 12.328 oz Body Mass Index (BMI) 28.9 Intake and Output for Last 24 Hours 10/08/18 10/09/18 10/10/18 23:59 23:59 23:59 Intake Total 1180 / 1180 2563.7 / 2563.7 595 / 595 Output Total 100 / 100 Balance 1180 / 1180 2463.7 / 2463.7 595 / 595 Microbiology Past 72 Hours 10/06/18 17:00 Gram Stain - Final Sputum, Expectorated/Coughed Respiratory Culture - Final Haemophilus influenzae 10/07/18 11:00 Respiratory Panel (PCR) - Final Mucosa - Nasopharyngeal Laboratory Tests Past 24 Hrs 10/09/18 10/09/18 07:36 07:36 WBC 12.7 H RBC 4.34 L Hgb 13.0 Hct 39.7 L MCV 91.5 MCH 30.0 MCHC 32.7 RDW 13.5 RDW Differential 44.5 H Plt Count 265 MPV 10.4 Immature Gran % (Auto) 0.200 Neut % (Auto) 92.9 H Lymph % (Auto) 4.2 L Hemphill % (Auto) 2.7 Eos % (Auto) 0.0 Baso % (Auto) 0.0 Absolute Neuts (auto) 11.8 H Absolute Lymphs (auto) 0.53 L Total Counted Not Reportable Sodium 138 Potassium 3.9 Chloride 101 Carbon Dioxide 29.0 Anion Gap 8 BUN 38 H Creatinine 1.41 H Estim Creat Clear Calc 50.84 Est GFR (MDRD) Af Amer 64 Est GFR (MDRD) Non-Af 53 L BUN/Creatinine Ratio 27.0 H Glucose 189 H Calcium 8.8 POC Glucose 10/09/18 10/09/18 10/09/18 22:59 15:49 11:18 POC Glucose 272 H 311 H 322 H 10/09/18 06:51 POC Glucose 203 H Clinical Impression(s) from Imaging Studies Abdomen/Pelvis CT 10/06/18 07:08 IMPRESSION: 1. Right lower lobe interstitial pneumonitis, new when compared to 06/16/2018. 2. Mild thickening of the urinary bladder wall is also a new finding. 3. No suspicious mass or acute abnormality in the abdomen and pelvis. 4. Pronounced multilevel degenerative disc space narrowing with degenerative vacuum phenomenon at L1-L2, L2-L3, L3-L4 and L5-S1 disc space levels. 5. No other additional findings or changes when compared to 06/16/2018. Electronically Signed: Davi Mendoza MD at 9:09 EDT , Service support , Chest X-Ray 10/06/18 07:08 IMPRESSION: 1. No acute cardiopulmonary pathology. 2. 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 High resolution CT chest will be helpful for further evaluation if desired. 3. No significant interval change when compared to 09/21/2018. Electronically Signed: Davi Mendoza MD at 9:00 EDT , Service support , Chest CT 10/07/18 08:19 IMPRESSION: Bibasilar pulmonary infiltrates worse on the right side. Follow-up is recommended. Electronically Signed: Arcenio Sapphire, at 9:51 EDT , Service support , Medical Necessity - Tobacco Use Smoking Status: Current some day smoker Assessment/Plan All Active Problems (Last Updated 05/24/18 @ 14:48 by Kana Khan MD) COPD exacerbation (Acute) Abdominal pain (Resolved) Acute non-ST segment elevation myocardial infarction (Resolved) NSTEMI (non-ST elevated myocardial infarction) (Resolved) Non-STEMI (non-ST elevated myocardial infarction) (Resolved) RECOMMENDATIONS: 1. Continue Augmentin as ordered, with plans to complete a 7-day treatment course. 2. Continue scheduled bronchodilators. 3. Transition from IV steroids to prednisone 40 mg daily. 4. At discharge, recommend tapering the patient's prednisone by 10 mg every 3 days until follow-up in the pulmonary medicine clinic. 5. Continue to wean supplemental oxygen to maintain saturations at or above 90%. 6. Continue bronchopulmonary hygiene with incentive spirometry and PEP therapy. 7. Continue nicotine replacement therapy. 8. Perform walking oximetry study prior to consideration for discharge from the hospital. 9. The patient should ideally follow up in the pulmonary medicine clinic within 2 weeks of his discharge from the hospital. IMPRESSIONS: 1. Acute hypoxemic respiratory insufficiency secondary to Haemophilus influenza pneumonia The patient's chest CT did reveal evidence of bibasilar pneumonia, right greater than left. Sputum culture was noted to be positive for Haemophilus influenza. The patient's antibiotics were de-escalated to Augmentin, with plans to complete a 7-day treatment course. The patient's IV steroids will be transitioned to prednisone 40 mg daily by mouth beginning today. At the time of his discharge, I would taper his prednisone by 10 mg every 3 days. I do also anticipate that the patient may have a supplemental oxygen requirement at discharge. I stressed the importance of outpatient pulmonary follow-up to the patient. I recommend that he follow-up in the pulmonary medicine clinic within 2 weeks of his discharge from the hospital. 2. Baseline mild COPD with exacerbation Continue scheduled bronchodilators along with steroids. The patient undoubtedly needs to follow-up in the pulmonary medicine clinic for further optimization of his baseline pulmonary status. 3. Tobacco dependency Smoking cessation is strongly advised. Continue nicotine replacement therapy as ordered. 4. Coronary artery disease/hypertension/hyperlipidemia Complicates care, management, recovery and prognosis. Continue home medications as indicated. This note was generated with [employer] dictation software. It may contain incorrect words, spelling, and punctuation that were not noted in checking the note before signing. Code Visit Inpatient E&M: 69891 Subs Hosp L2
[2018-10-10] MEDS: Insulin Lispro 100 UNIT/ML INSULN.PEN SC ×4 (06:38→22:27)
[2018-10-10 06:51] LABS: Absolute Lymphocyte Count 0.58 X10^3/ul (0.83-4.51); Absolute Neutrophil Count 9.2 X10^3/uL (2.0-7.7); Hematocrit 40.4 % (40-54); Hemoglobin 13.1 g/dl (13.0-16.5); Lymphocyte # 0.58 X10^3/ul (4.0); Lymphocyte % 5.7 % (19-41); Mean Corp Hgb Conc 32.4 g/gl (32-36); Mean Corpuscular Hgb 29.5 pg (27.0-32.0); Mean Platelet Vol. 10.2 fl (6.2-12.0); Monocyte# 0.32 X10^3/uL; Monocyte% 3.1 % (0-10); Neutrophil # 9.24 X10^3/uL (2.7-7.7); Platelet Count 273 K/mm3 (150-450); RBC Distribution Width CV 13.6 % (11.6-14.6); RBC Distribution Width SD 44.6 fl (35.1-43.9); Red Blood Count 4.44 M/mm3 (4.6-6.2); White Blood Count 10.2 K/mm3 (4.4-11.0)
[2018-10-10 06:55] LABS: Differential Indicated SCAN CRITERIA MET; POSITIVE COUNT NO; POSITIVE DIFFERENTIAL YES; POSITIVE MORPHOLOGY NO
[2018-10-10 07:11] LABS: Bedside Glucose 187 mg/dL (70-110)
[2018-10-10 07:31] LABS: Anion Gap 10 (5-15); BUN 40 mg/dL (7-18); BUN/Creat Ratio 25.5 RATIO (10-20); Calcium,Total 8.4 mg/dL (8.5-10.1); Chloride 98 mmol/L (98-107); Creatinine, Serum 1.57 mg/dL (0.70-1.30); EST Glomerular Filtration Rate 47 mL/min (>60); Est Glom Filt Rate - Afr Amer 57 mL/min (>60); Estimated Creatinine Clearance 45.66 ml/min; Glucose 223 mg/dL (74-106); Potassium 4.2 mmol/L (3.5-5.1); Sodium Level 136 mmol/L (136-145)
--- NOTE | 2018-10-10 09:42 | PCM.PN.HOSP ---
Subjective: Patient seen and examined. Shortness of breath has improved he is down to 1 L of oxygen now. He states he is able to bring up much more sputum now. He denies any chest pain palpitations or dizziness, abdominal pain, diarrhea vomiting. Review of systems otherwise negative. Vitals/I&O's: Vital Signs Temp Pulse Resp BP Pulse Ox 97.6 F L 62 20 H 132/78 H 96 10/10/18 04:18 10/10/18 07:07 10/10/18 07:07 10/10/18 04:18 10/10/18 07:07 Oxygen Flow Rate (L/min) 3 Oxygen Delivery Method Nasal Cannula Weight: 195 lb 12.328 oz Body Mass Index (BMI) 28.9 Intake and Output for Last 24 Hours 10/08/18 10/09/18 10/10/18 23:59 23:59 23:59 Intake Total 1180 / 1180 2563.7 / 2563.7 870 / 870 Output Total 100 / 100 Balance 1180 / 1180 2463.7 / 2463.7 870 / 870 General: Alert, Oriented x3, Cooperative HEENT: Atraumatic, PERRLA, EOMI, Normocephalic Oral: Dry Mucosa Neck: Supple, No JVD, Negative Carotid Bruits Lungs: Short of Breath, - -mild wheezing in all lung bui, with bilateral few crackles. on 1L of oxygen. Lungs sound much better than before Cardiovascular: Regular rate, Regular Rhythm, Normal S1, Normal S2, No murmurs Abdomen: Bowel Sounds Present Extremities: No clubbing, No cyanosis, No edema, Capillary Refill Less than 3 Seconds Skin: No rashes, No breakdown Musculoskeletal: No Tenderness to Palpation of Joints or Extremities Lymphatic: No Cervical, Supraclavicular, or Inguinal Adenopathy Neurological: Cranial nerves II-XII grossly intact, Neuro grossly intact Psych/Mental Status: Normal Affect, Appropriate, Alert and oriented to time, place, person, mood and affect Microbiology Past 72 Hours 10/06/18 17:00 Sputum, Expectorated/Coughed Gram Stain - Final 10/06/18 17:00 Sputum, Expectorated/Coughed Respiratory Culture - Final Haemophilus influenzae 10/07/18 11:00 Mucosa - Nasopharyngeal Respiratory Panel (PCR) - Final Laboratory Results 10/09/18 11:18: POC Glucose 322 H 10/09/18 15:49: POC Glucose 311 H 10/09/18 22:59: POC Glucose 272 H 10/10/18 05:40: WBC 10.2, RBC 4.44 L, Hgb 13.1, Hct 40.4, MCV 91.0, MCH 29.5, MCHC 32.4, RDW 13.6, RDW Differential 44.6 H, Plt Count 273, MPV 10.2, Immature Gran % (Auto) 0.200, Neut % (Auto) 91.0 H, Lymph % (Auto) 5.7 L, Wilkes % (Auto) 3.1, Eos % (Auto) 0.0, Baso % (Auto) 0.0, Absolute Neuts (auto) 9.2 H, Absolute Lymphs (auto) 0.58 L, Total Counted Not Reportable, Differential Comment 10/10/18 05:40: Sodium 136, Potassium 4.2, Chloride 98, Carbon Dioxide 28.0, Anion Gap 10, BUN 40 H, Creatinine 1.57 H, Estim Creat Clear Calc 45.66, Est GFR (MDRD) Af Amer 57 L, Est GFR (MDRD) Non-Af 47 L, BUN/Creatinine Ratio 25.5 H, Glucose 223 H, Calcium 8.4 L 10/10/18 06:38: POC Glucose 187 H Current Medications Acetaminophen (Tylenol) 650 mg PO Q6H PRN PRN PRN Reason: PAIN Last Admin: 10/10/18 06:36 Dose: 650 mg Albuterol/Ipratropium (Duoneb) 3 ml INHALATION Q4HWA.RT [facility] Last Admin: 10/10/18 07:07 Dose: 3 ml [facility]) [facility] Last Admin: 10/09/18 11:04 Dose: 300 mg Amoxicillin/Clavulanate Potassium (Augmentin Tablet) 875 mg PO BID [facility] Stop: 10/15/18 22:01 Last Admin: 10/09/18 22:37 Dose: 875 mg Aspirin (Ecotrin) 325 mg PO DAILY@0800 [facility] Last Admin: 10/09/18 11:04 Dose: 325 mg Clopidogrel Bisulfate (Plavix) 75 mg PO DAILY [facility] Last Admin: 10/09/18 11:02 Dose: 75 mg Enoxaparin Sodium (Lovenox) 30 mg SC DAILY@1000 [facility] Last Admin: 10/09/18 11:05 Dose: 30 mg Furosemide (Lasix) 40 mg PO DAILY [facility] Last Admin: 10/09/18 11:03 Dose: 40 mg Guaifenesin (Mucinex) 1,200 mg PO BID [facility] Last Admin: 10/09/18 22:37 Dose: 1,200 mg Insulin Human Lispro (Humalog Kwikpen (Bkc)) 0 unit SC [facility]; Protocol Last Admin: 10/10/18 06:38 Dose: 2 u Isosorbide Mononitrate (Imdur) 30 mg PO DAILY [facility] Last Admin: 10/09/18 11:03 Dose: 30 mg Lisinopril (Zestril) 2.5 mg PO DAILY [facility] Last Admin: 10/09/18 11:02 Dose: 2.5 mg Magnesium Hydroxide (Milk Of Magnesia) 30 ml PO DAILY PRN PRN PRN Reason: Constipation Metoprolol Succinate (Toprol Xl (Beta Sina)) 100 mg PO DAILY [facility] Last Admin: 10/09/18 11:03 Dose: 100 mg Nicotine (Nicoderm Cq (Pbkc)) 21 mg TRANSDERM. DAILY [facility] Last Admin: 10/09/18 11:03 Dose: 21 mg Nitroglycerin (Nitrostat) 0.4 mg SUBLINGUAL Q5M PRN PRN Reason: Chest Pain Nutritional Formula (Lactose Free) (Glucerna Shake) 120 ml PO 4X/DAY [facility] Last Admin: 10/09/18 22:57 Dose: 120 ml Oxycodone HCl (Oxyir) 10 mg PO Q6H PRN PRN PRN Reason: SEVERE PAIN (6-10/10) Last Admin: 10/10/18 06:35 Dose: 10 mg Pantoprazole Sodium (Protonix) 40 mg PO DAILY [facility] Last Admin: 10/09/18 11:02 Dose: 40 mg Prednisone () 40 mg PO DAILY@0800 [facility] Rosuvastatin Calcium (Crestor) 40 mg PO QHS [facility] Last Admin: 10/09/18 22:37 Dose: 40 mg Sodium Chloride () 5 - 15 ml IV UD PRN PRN Reason: SALINE FLUSH Spironolactone (Aldactone) 25 mg PO DAILY [facility] Last Admin: 10/09/18 11:04 Dose: 25 mg Medical Necessity - Tobacco Use Smoking Status: Current some day smoker Assessment/Plan All Active Problems (Last Updated 05/24/18 @ 14:48 by Kana Khan MD) COPD exacerbation (Acute) Abdominal pain (Resolved) Acute non-ST segment elevation myocardial infarction (Resolved) NSTEMI (non-ST elevated myocardial infarction) (Resolved) Non-STEMI (non-ST elevated myocardial infarction) (Resolved) 68 y/o admitted with a complaint of productive cough and generalised malaise 1. Post viral pneumonia and bronchial hyperresponsiveness SOB is improving, now down to 1L of oxygen wbc is down to 10.2 on guaifenesin sputum cultured H. influenzae; urine for strep and Legionella were negative. pulmo on board, antibiotics de-escalated to PO augmentin will need tapering dose of steroids upon discharge. 2. Chest pain, likely pleuritic relieved by morphine and oxycodone. Improving. Po aspirin 81mg daily. SL nitroglycerin as needed 3. Acute hypoxic respiratory insufficiency due to post viral pneumonia and bronchial hyperresponsiveness now on 1L of oxygen, feels better on breathing treatments and steroids; steroids switched to PO Chest physiotherapy. Titrate oxygen to maintain saturation more than 90%. pulmo on board 2D echo: EF of 35%, with stage 1 diastolic dysfunction. 4. Hypokalemia: resolved. K is 4.2 today 5. Hyponatremia: Resolved. 6. CKD 3: Cr is 1.41 today. baseline is ~ 1.97. WIll monitor 7. Chronic HFrEF;Repeat ECho during this admission as under 3. on PO lasix 40mg daily. Also has a pacemaker in place. 8. CAD s/p CABG: on aspirin, plavix and imdur. 9. Hypertension: On metoprolol, lisinopril and spironolactone. DVT prophylaxis: lovenox-renally dosed Code Visit Inpatient E&M: 15128 [facility] Hosp L3
--- NOTE | 2018-10-10 09:46 | PN_ITS ---
Subjective: Patient seen and examined. Shortness of breath has improved he is down to 1 L of oxygen now. He states he is able to bring up much more sputum now. He denies any chest pain palpitations or dizziness, abdominal pain, diarrhea vomiting. Review of systems otherwise negative. Vitals/I&O's: Vital Signs Temp Pulse Resp BP Pulse Ox 97.6 F L 62 20 H 132/78 H 96 10/10/18 04:18 10/10/18 07:07 10/10/18 07:07 10/10/18 04:18 10/10/18 07:07 Oxygen Flow Rate (L/min) 3 Oxygen Delivery Method Nasal Cannula Weight: 195 lb 12.328 oz Body Mass Index (BMI) 28.9 Intake and Output for Last 24 Hours 10/08/18 10/09/18 10/10/18 23:59 23:59 23:59 Intake Total 1180 / 1180 2563.7 / 2563.7 870 / 870 Output Total 100 / 100 Balance 1180 / 1180 2463.7 / 2463.7 870 / 870 General: Alert, Oriented x3, Cooperative HEENT: Atraumatic, PERRLA, EOMI, Normocephalic Oral: Dry Mucosa Neck: Supple, No JVD, Negative Carotid Bruits Lungs: Short of Breath, - -mild wheezing in all lung bui, with bilateral few crackles. on 1L of oxygen. Lungs sound much better than before Cardiovascular: Regular rate, Regular Rhythm, Normal S1, Normal S2, No murmurs Abdomen: Bowel Sounds Present Extremities: No clubbing, No cyanosis, No edema, Capillary Refill Less than 3 Seconds Skin: No rashes, No breakdown Musculoskeletal: No Tenderness to Palpation of Joints or Extremities Lymphatic: No Cervical, Supraclavicular, or Inguinal Adenopathy Neurological: Cranial nerves II-XII grossly intact, Neuro grossly intact Psych/Mental Status: Normal Affect, Appropriate, Alert and oriented to time, place, person, mood and affect Microbiology Past 72 Hours 10/06/18 17:00 Sputum, Expectorated/Coughed Gram Stain - Final 10/06/18 17:00 Sputum, Expectorated/Coughed Respiratory Culture - Final Haemophilus influenzae 10/07/18 11:00 Mucosa - Nasopharyngeal Respiratory Panel (PCR) - Final Laboratory Results 10/09/18 11:18: POC Glucose 322 H 10/09/18 15:49: POC Glucose 311 H 10/09/18 22:59: POC Glucose 272 H 10/10/18 05:40: WBC 10.2, RBC 4.44 L, Hgb 13.1, Hct 40.4, MCV 91.0, MCH 29.5, MCHC 32.4, RDW 13.6, RDW Differential 44.6 H, Plt Count 273, MPV 10.2, Immature Gran % (Auto) 0.200, Neut % (Auto) 91.0 H, Lymph % (Auto) 5.7 L, Emmons % (Auto) 3.1, Eos % (Auto) 0.0, Baso % (Auto) 0.0, Absolute Neuts (auto) 9.2 H, Absolute Lymphs (auto) 0.58 L, Total Counted Not Reportable, Differential Comment 10/10/18 05:40: Sodium 136, Potassium 4.2, Chloride 98, Carbon Dioxide 28.0, Anion Gap 10, BUN 40 H, Creatinine 1.57 H, Estim Creat Clear Calc 45.66, Est GFR (MDRD) Af Amer 57 L, Est GFR (MDRD) Non-Af 47 L, BUN/Creatinine Ratio 25.5 H, Glucose 223 H, Calcium 8.4 L 10/10/18 06:38: POC Glucose 187 H Current Medications Acetaminophen (Tylenol) 650 mg PO Q6H PRN PRN PRN Reason: PAIN Last Admin: 10/10/18 06:36 Dose: 650 mg Albuterol/Ipratropium (Duoneb) 3 ml INHALATION Q4HWA.RT [facility] Last Admin: 10/10/18 07:07 Dose: 3 ml [facility] Admin: 10/09/18 11:04 Dose: 300 mg Amoxicillin/Clavulanate Potassium (Augmentin Tablet) 875 mg PO BID [facility] Stop: 10/15/18 22:01 Last Admin: 10/09/18 22:37 Dose: 875 mg Aspirin (Ecotrin) 325 mg PO DAILY@0800 [facility] Last Admin: 10/09/18 11:04 Dose: 325 mg Clopidogrel Bisulfate (Plavix) 75 mg PO DAILY [facility] Last Admin: 10/09/18 11:02 Dose: 75 mg Enoxaparin Sodium (Lovenox) 30 mg SC DAILY@1000 [facility] Last Admin: 10/09/18 11:05 Dose: 30 mg Furosemide (Lasix) 40 mg PO DAILY [facility] Last Admin: 10/09/18 11:03 Dose: 40 mg Guaifenesin (Mucinex) 1,200 mg PO BID [facility] Last Admin: 10/09/18 22:37 Dose: 1,200 mg Insulin Human Lispro (Humalog Kwikpen (Bkc)) 0 unit SC [facility]; Protocol Last Admin: 10/10/18 06:38 Dose: 2 u Isosorbide Mononitrate (Imdur) 30 mg PO DAILY [facility] Last Admin: 10/09/18 11:03 Dose: 30 mg Lisinopril (Zestril) 2.5 mg PO DAILY [facility] Last Admin: 10/09/18 11:02 Dose: 2.5 mg Magnesium Hydroxide (Milk Of Magnesia) 30 ml PO DAILY PRN PRN PRN Reason: Constipation Metoprolol Succinate (Toprol Xl (Beta Sina)) 100 mg PO DAILY [facility] Last Admin: 10/09/18 11:03 Dose: 100 mg Nicotine (Nicoderm Cq (Pbkc)) 21 mg TRANSDERM. DAILY [facility] Last Admin: 10/09/18 11:03 Dose: 21 mg Nitroglycerin (Nitrostat) 0.4 mg SUBLINGUAL Q5M PRN PRN Reason: Chest Pain Nutritional Formula (Lactose Free) (Glucerna Shake) 120 ml PO 4X/DAY [facility] Last Admin: 10/09/18 22:57 Dose: 120 ml Oxycodone HCl (Oxyir) 10 mg PO Q6H PRN PRN PRN Reason: SEVERE PAIN (6-10/10) Last Admin: 10/10/18 06:35 Dose: 10 mg Pantoprazole Sodium (Protonix) 40 mg PO DAILY [facility] Last Admin: 10/09/18 11:02 Dose: 40 mg Prednisone () 40 mg PO DAILY@0800 [facility] Rosuvastatin Calcium (Crestor) 40 mg PO QHS [facility] Last Admin: 10/09/18 22:37 Dose: 40 mg Sodium Chloride () 5 - 15 ml IV UD PRN PRN Reason: SALINE FLUSH Spironolactone (Aldactone) 25 mg PO DAILY [facility] Last Admin: 10/09/18 11:04 Dose: 25 mg Medical Necessity - Tobacco Use Smoking Status: Current some day smoker Assessment/Plan All Active Problems (Last Updated 05/24/18 @ 14:48 by Kana Khan MD) COPD exacerbation (Acute) Abdominal pain (Resolved) Acute non-ST segment elevation myocardial infarction (Resolved) NSTEMI (non-ST elevated myocardial infarction) (Resolved) Non-STEMI (non-ST elevated myocardial infarction) (Resolved) 68 y/o admitted with a complaint of productive cough and generalised malaise 1. Post viral pneumonia and bronchial hyperresponsiveness * SOB is improving, now down to 1L of oxygen * wbc is down to 10.2 * on guaifenesin * sputum cultured H. influenzae; urine for strep and Legionella were negative. * pulmo on board, antibiotics de-escalated to PO augmentin * will need tapering dose of steroids upon discharge. * * 2. Chest pain, likely pleuritic * relieved by morphine and oxycodone. Improving. * Po aspirin 81mg daily. * SL nitroglycerin as needed * 3. Acute hypoxic respiratory insufficiency due to post viral pneumonia and bronchial hyperresponsiveness * now on 1L of oxygen, feels better * on breathing treatments and steroids; steroids switched to PO * Chest physiotherapy. Titrate oxygen to maintain saturation more than 90%. * pulmo on board * 2D echo: EF of 35%, with stage 1 diastolic dysfunction. * 4. Hypokalemia: resolved. K is 4.2 today 5. Hyponatremia: Resolved. 6. CKD 3: Cr is 1.41 today. baseline is ~ 1.97. WIll monitor 7. Chronic HFrEF;Repeat ECho during this admission as under 3. on PO lasix 40mg daily. Also has a pacemaker in place. 8. CAD s/p CABG: on aspirin, plavix and imdur. 9. Hypertension: On metoprolol, lisinopril and spironolactone. DVT prophylaxis: lovenox-renally dosed Code Visit Inpatient E&M: 52120 [facility] L3
[2018-10-10] MEDS: Aspirin E.C. 325 MG Tablet PO (09:56)
[2018-10-10] MEDS: Furosemide 40 MG Tablet PO (09:56)
[2018-10-10] MEDS: Amox/Clavulanate 875 MG Tablet PO ×2 (09:56→22:24)
[2018-10-10] MEDS: Clopidogrel Bisulfate 75 MG Tablet PO (09:57)
[2018-10-10] MEDS: Spironolactone 25 MG Tablet PO (09:57)
[2018-10-10] MEDS: Allopurinol 300 MG Tablet PO (09:57)
[2018-10-10] MEDS: guaiFENesin 1,200 MG Tablet 1200 MG PO ×2 (09:57→22:24)
[2018-10-10] MEDS: Pantoprazole Sodium 40 MG Tablet PO (09:57)
[2018-10-10] MEDS: Isosorbide Mononitrate 30 MG Tablet PO (09:58)
[2018-10-10] MEDS: Enoxaparin 30 MG/0.3 ML Syringe SC (09:58)
[2018-10-10] MEDS: predniSONE 20 MG Tablet 40 MG PO (10:00)
[2018-10-10] MEDS: Glucerna Shake 120 ML LIQUID PO ×3 (10:00→22:24)
[2018-10-10 12:16] LABS: Bedside Glucose 222 mg/dL (70-110)
[2018-10-10 17:01] LABS: Bedside Glucose 228 mg/dL (70-110)
[2018-10-10] MEDS: Rosuvastatin 20 MG Tablet 40 MG PO (22:24)
[2018-10-10 23:11] LABS: Bedside Glucose 220 mg/dL (70-110)
[2018-10-11] VITALS (8 sets, daily range): BP systolic 116–123; BP diastolic 68–76; PULSE 70–88; RESP 18–21; TEMP 36.3–36.6; O2SAT 92–94
[2018-10-11] MEDS: Acetaminophen 325 MG Tablet 650 MG PO ×2 (02:00→08:08)
[2018-10-11] MEDS: oxyCODONE 5 MG Tablet 10 MG PO ×2 (02:00→08:08)
[2018-10-11] MEDS: Ipratropium/Albuterol Sulfate 3 ML AMPUL.NEB INHALATION ×2 (03:09→07:10)
[2018-10-11 06:13] LABS: Absolute Lymphocyte Count 1.52 X10^3/ul (0.83-4.51); Absolute Neutrophil Count 7.2 X10^3/uL (2.0-7.7); Basophil# 0.02 X10^3/uL; Basophil% 0.2 % (0-1); Hematocrit 43.7 % (40-54); Hemoglobin 14.3 g/dl (13.0-16.5); Lymphocyte # 1.52 X10^3/ul (4.0); Lymphocyte % 16.2 % (19-41); Mean Corp Hgb Conc 32.7 g/gl (32-36); Mean Corpuscular Hgb 30.5 pg (27.0-32.0); Mean Corpuscular Volume 93.2 fL (80-94); Mean Platelet Vol. 10.2 fl (6.2-12.0); Monocyte# 0.56 X10^3/uL; Neutrophil # 7.23 X10^3/uL (2.7-7.7); Neutrophil % 76.9 % (47-70); Platelet Count 231 K/mm3 (150-450); RBC Distribution Width SD 47.3 fl (35.1-43.9); Red Blood Count 4.69 M/mm3 (4.6-6.2); White Blood Count 9.4 K/mm3 (4.4-11.0)
[2018-10-11 06:27] LABS: POSITIVE COUNT NO; POSITIVE DIFFERENTIAL NO; POSITIVE MORPHOLOGY NO
[2018-10-11 06:38] LABS: Anion Gap 6 (5-15); BUN 45 mg/dL (7-18); BUN/Creat Ratio 31.9 RATIO (10-20); Calcium,Total 8.3 mg/dL (8.5-10.1); Chloride 99 mmol/L (98-107); Creatinine, Serum 1.41 mg/dL (0.70-1.30); EST Glomerular Filtration Rate 53 mL/min (>60); Est Glom Filt Rate - Afr Amer 64 mL/min (>60); Estimated Creatinine Clearance 50.84 ml/min; Glucose 133 mg/dL (74-106); Potassium 3.9 mmol/L (3.5-5.1); Sodium Level 133 mmol/L (136-145)
[2018-10-11 06:56] LABS: Bedside Glucose 134 mg/dL (70-110)
[2018-10-11] MEDS: Pantoprazole Sodium 40 MG Tablet PO (08:09)
[2018-10-11] MEDS: Lisinopril 2.5 MG Tablet PO (08:09)
[2018-10-11] MEDS: guaiFENesin 1,200 MG Tablet 1200 MG PO (08:09)
[2018-10-11] MEDS: Clopidogrel Bisulfate 75 MG Tablet PO (08:09)
[2018-10-11] MEDS: Isosorbide Mononitrate 30 MG Tablet PO (08:09)
[2018-10-11] MEDS: Amox/Clavulanate 875 MG Tablet PO (08:09)
[2018-10-11] MEDS: Allopurinol 300 MG Tablet PO (08:10)
[2018-10-11] MEDS: predniSONE 20 MG Tablet 40 MG PO (08:10)
[2018-10-11] MEDS: Spironolactone 25 MG Tablet PO (08:10)
[2018-10-11] MEDS: Furosemide 40 MG Tablet PO (08:10)
[2018-10-11] MEDS: Aspirin E.C. 325 MG Tablet PO (08:10)
[2018-10-11] MEDS: Glucerna Shake 120 ML LIQUID PO (08:10)
[2018-10-11] MEDS: Enoxaparin 30 MG/0.3 ML Syringe SC (08:11)
[2018-10-11] MEDS: Metoprolol(XL)Succ 100 MG Tablet PO (08:11)
--- NOTE | 2018-10-11 09:45 | DCINST_ITS ---
You will use the following diet at home:: Cardiac Your food should be the consistency of: Regular Your liquids should be the consistency of: Regular/Thin Discharge Activity: Return to Normal Activity Weight Bearing Status: Weight bearing as tolerated Call your doctor if you observe: Fever of 101 or Higher, Shortness of breath, Chest pain Instructions: What Is Pneumonia?, Discharge Instructions for Pneumonia Allergies/Adverse Reactions: Allergies chlorpromazine HCl [From Thorazine] Allergy (Severe, Verified 09/20/18 13:14) Hives PER PATIENT tramadol HCl [From Ultram] Allergy (Severe, Verified 09/20/18 13:14) Hives PER PATIENT codeine Allergy (Intermediate, Verified 09/20/18 13:14) Hives atorvastatin Adverse Reaction (Intermediate, Verified 09/20/18 13:14) Other LEG PAIN/CRAMPS naproxen Adverse Reaction (Verified 09/20/18 13:14) Upset Stomach promethazine [From Phenergan] Adverse Reaction (Verified 09/20/18 13:14) Other CONFUSION Medications to take at Discharge Nitroglycerin [Nitrostat] 0.4 mg SUBLINGUAL Q5M PRN 09/17/15 Isosorbide Mononitrate [Imdur] 30 mg PO DAILY 02/18/17 Albuterol Aerosols [Ventolin Aerosols] 2.5 mg INHALATION Q4H PRN PRN 02/23/17 albuterol sulfate HFA 90 mcg/actuation aerosol inhaler 2 puff INHALATION Q4H PRN g 07/31/17 Pantoprazole Sodium [Protonix] 40 mg PO DAILY 11/15/17 umeclidinium 62.5 mcg-vilanterol 25 mcg/actuation powdr for inhalation 1 inh INHALATION DAILY #60 ea MDD copd 02/05/18 Metoprolol Succinate [Toprol Xl] 100 mg PO DAILY 05/20/18 Lisinopril [Zestril] 2.5 mg PO DAILY 05/21/18 Rosuvastatin Calcium [Crestor] 40 mg PO DAILY 06/16/18 Spironolactone 25 mg PO DAILY 06/16/18 Clopidogrel Bisulfate [Plavix] 75 mg PO DAILY 09/01/18 Furosemide 40 mg PO DAILY 09/01/18 Allopurinol 300 mg PO DAILY 09/20/18 Aspirin E.C. [Ecotrin] 325 mg PO DAILY@0800 09/20/18 Nicotine [Nicoderm Cq] 21 mg TRANSDERM. DAILY #28 patch 09/21/18 Oxycodone HCl/Acetaminophen [Percocet 7.5-325 mg Tablet] 1 tab PO 4X/DAY PRN 10/06/18 Amox/Clavulanate Tablet [Augmentin Tablet] 875 mg PO BID #14 tablet 10/11/18 Guaifenesin [Mucinex] 1,200 mg PO BID #30 tablet 10/11/18 MethylPREDNISolone DosePak [Medrol DosePak] 4 mg PO UD #1 box 10/11/18 The following prescriptions were given: MethylPREDNISolone DosePak [Medrol DosePak] 4 mg PO UD #1 box Amox/Clavulanate Tablet [Augmentin Tablet] 875 mg PO BID #14 tablet Guaifenesin [Mucinex] 1,200 mg PO BID #30 tablet Primary Care Physician: Juan De La Vega III, MD [Primary Care Provider] - Please follow up with your Primary Care Physician in: one week Test Results: Test results from this visit will be discussed in further detail at your follow- up appointment, if applicable. Please Follow Up With: Carlos Pop DO When: 1 week Proposed Discharge Date: 10/11/18
--- NOTE | 2018-10-11 09:45 | PCM.DC.SUM ---
Discharge Date and Diagnosis Date of Admission: 10/06/18 - Secondary Discharge Diagnosis Chronic Problems (Last Updated 05/24/18 @ 14:48 by Kana Khan MD) COPD (chronic obstructive pulmonary disease) (Chronic) Obesity (BMI 30.0-34.9) (Chronic) Nicotine dependence (Chronic) Gout (Chronic) Degenerative cervical disc (Chronic) Claudication (Chronic) Chronic back pain (Chronic) Presence of automatic implantable cardioverter-defibrillator (Chronic) Presence of automatic implantable cardioverter-defibrillator (Chronic) H/O coronary artery bypass surgery (Chronic ~2008) HUMPHREY-LAD, SVG-D1, SVG-OM Chronic renal failure, stage 3 (moderate) (Chronic) Chronic systolic (congestive) heart failure (Chronic) Stented coronary artery (Chronic ~12/2016) has had 7 stents as of 06/15/17 Ischemic cardiomyopathy (Chronic) 25% ejection fraction in November 2016 V-tach (Chronic) has an AICD Benign essential hypertension (Chronic) Gastroesophageal reflux disease (Chronic) Hyperlipidemia (Chronic) Type 2 diabetes mellitus (Chronic) Morbid obesity (Chronic) CAD (coronary artery disease) (Chronic) Hospital Course and Treatment Operations: None Summary of Care Provided: The patient is a 68 year old M [] - Physical Exam Vital Signs Temp Pulse Resp BP Pulse Ox 97.4 F L 70 18 116/68 94 10/11/18 08:10 10/11/18 08:11 10/11/18 08:10 10/11/18 08:10 10/11/18 08:10 Oxygen Flow Rate (L/min) [ 0 AMBULATING on Room Air] Oxygen Flow Rate (L/min) [At 0 REST on Room Air] Oxygen Flow Rate (L/min) 3 Oxygen Delivery Method Room Air Weight: 195 lb 12.328 oz Body Mass Index (BMI) 28.9 Intake and Output for Last 24 Hours 10/09/18 10/10/18 10/11/18 23:59 23:59 23:59 Intake Total 2563.7 / 2563.7 1570 / 1570 420 / 420 Output Total 100 / 100 Balance 2463.7 / 2463.7 1570 / 1570 420 / 420 Microbiology Past 72 Hours 10/06/18 17:00 Gram Stain - Final Sputum, Expectorated/Coughed Respiratory Culture - Final Haemophilus influenzae 10/07/18 11:00 Respiratory Panel (PCR) - Final Mucosa - Nasopharyngeal Laboratory Tests Past 24 Hrs 10/11/18 10/11/18 10/11/18 05:18 05:18 06:08 WBC 9.4 RBC 4.69 Hgb 14.3 Hct 43.7 MCV 93.2 MCH 30.5 MCHC 32.7 RDW 14.0 RDW Differential 47.3 H Plt Count 231 MPV 10.2 Immature Gran % (Auto) 0.700 Neut % (Auto) 76.9 H Lymph % (Auto) 16.2 L Hitchcock % (Auto) 6.0 Eos % (Auto) 0.0 Baso % (Auto) 0.2 Absolute Neuts (auto) 7.2 Absolute Lymphs (auto) 1.52 Total Counted Not Reportable Sodium Cancelled 133 L Potassium Cancelled 3.9 Chloride Cancelled 99 Carbon Dioxide Cancelled 28.0 Anion Gap Cancelled 6 BUN Cancelled 45 H Creatinine Cancelled 1.41 H Estim Creat Clear Calc Cancelled 50.84 Est GFR (MDRD) Af Amer Cancelled 64 Est GFR (MDRD) Non-Af Cancelled 53 L BUN/Creatinine Ratio Cancelled 31.9 H Glucose Cancelled 133 H Calcium Cancelled 8.3 L POC Glucose 10/11/18 10/10/18 10/10/18 06:38 22:27 16:51 POC Glucose 134 H 220 H 228 H 10/10/18 12:01 POC Glucose 222 H Discharge Activity: Return to Normal Activity Weight Bearing Status: Weight bearing as tolerated Call your doctor if you observe: Fever of 101 or Higher, Shortness of breath, Chest pain Home Medications: Medications to take at Discharge Nitroglycerin [Nitrostat] 0.4 mg SUBLINGUAL Q5M PRN 09/17/15 Isosorbide Mononitrate [Imdur] 30 mg PO DAILY 02/18/17 Albuterol Aerosols [Ventolin Aerosols] 2.5 mg INHALATION Q4H PRN PRN 02/23/17 albuterol sulfate HFA 90 mcg/actuation aerosol inhaler 2 puff INHALATION Q4H PRN g 07/31/17 Pantoprazole Sodium [Protonix] 40 mg PO DAILY 11/15/17 umeclidinium 62.5 mcg-vilanterol 25 mcg/actuation powdr for inhalation 1 inh INHALATION DAILY #60 ea MDD copd 02/05/18 Metoprolol Succinate [Toprol Xl] 100 mg PO DAILY 05/20/18 Lisinopril [Zestril] 2.5 mg PO DAILY 05/21/18 Rosuvastatin Calcium [Crestor] 40 mg PO DAILY 06/16/18 Spironolactone 25 mg PO DAILY 06/16/18 Clopidogrel Bisulfate [Plavix] 75 mg PO DAILY 09/01/18 Furosemide 40 mg PO DAILY 09/01/18 Allopurinol 300 mg PO DAILY 09/20/18 Aspirin E.C. [Ecotrin] 325 mg PO DAILY@0800 09/20/18 Nicotine [Nicoderm Cq] 21 mg TRANSDERM. DAILY #28 patch 09/21/18 Oxycodone HCl/Acetaminophen [Percocet 7.5-325 mg Tablet] 1 tab PO 4X/DAY PRN 10/06/18 Amox/Clavulanate Tablet [Augmentin Tablet] 875 mg PO BID #14 tablet 10/11/18 Guaifenesin [Mucinex] 1,200 mg PO BID #30 tablet 10/11/18 MethylPREDNISolone DosePak [Medrol DosePak] 4 mg PO UD #1 box 10/11/18 Following Prescrptions Were Given to Patient: MethylPREDNISolone DosePak [Medrol DosePak] 4 mg PO UD #1 box Amox/Clavulanate Tablet [Augmentin Tablet] 875 mg PO BID #14 tablet Guaifenesin [Mucinex] 1,200 mg PO BID #30 tablet Primary Care Physician: Juan De La Vega III, MD [Primary Care Provider] - Please follow up with your Primary Care Physician in: one week Please Follow Up With: Carlos Pop DO When: 1 week Patient Instructions: What Is Pneumonia?, Discharge Instructions for Pneumonia Medical Necessity - Tobacco Use Smoking Status: Current some day smoker
--- NOTE | 2018-10-11 10:19 | PN_ITS ---
Subjective: Patient did well overnight. No acute issues were reported. Patient is supposed to go home today, but feels nervous about decompensation. Patient currently on room air and doing well. - Physical Exam General: Alert, Oriented x3, Cooperative, No apparent distress, - - No conversational dyspnea appreciated. HEENT: Atraumatic, PERRLA, EOMI, Normocephalic, - - No scleral icterus or injection noted. Oral: Moist Mucosa, No Gingival or Mucosal Lesions/ Ulcerations Neck: Supple, No JVD, No Nodes, Trachea Midline Lungs: No rhonchi, No wheeze, No rales, Diminished Cardiovascular: Regular rate, Regular Rhythm, Normal S1, Normal S2, No murmurs, No rub noted, No Gallop Abdomen: Bowel Sounds Present, Soft, Non Tender, Non-Distended Extremities: No clubbing, No cyanosis, No edema, Capillary Refill Less than 3 Seconds Skin: No rashes, No breakdown, - - Dry skin noted. Musculoskeletal: No Tenderness to Palpation of Joints or Extremities Lymphatic: No Cervical, Supraclavicular, or Inguinal Adenopathy Neurological: Cranial nerves II-XII grossly intact, Neuro grossly intact, Motor Exam 5/5 strength throughout Psych/Mental Status: Alert and oriented to time, place, person, mood and affect Vital Signs Temp Pulse Resp BP Pulse Ox 36.3 C L 70 18 116/68 94 10/11/18 08:10 10/11/18 08:11 10/11/18 08:10 10/11/18 08:10 10/11/18 08:15 Oxygen Flow Rate (L/min) [ 0 AMBULATING on Room Air] Oxygen Flow Rate (L/min) [At 0 REST on Room Air] Oxygen Flow Rate (L/min) 3 Oxygen Delivery Method Room Air Weight: 88.8 kg Body Mass Index (BMI) 28.9 Intake and Output for Last 24 Hours 10/09/18 10/10/18 10/11/18 23:59 23:59 23:59 Intake Total 2563.7 / 2563.7 1570 / 1570 420 / 420 Output Total 100 / 100 Balance 2463.7 / 2463.7 1570 / 1570 420 / 420 Microbiology Past 72 Hours 10/06/18 17:00 Gram Stain - Final Sputum, Expectorated/Coughed Respiratory Culture - Final Haemophilus influenzae 10/07/18 11:00 Respiratory Panel (PCR) - Final Mucosa - Nasopharyngeal Laboratory Tests Past 24 Hrs 10/11/18 10/11/18 10/11/18 05:18 05:18 06:08 WBC 9.4 RBC 4.69 Hgb 14.3 Hct 43.7 MCV 93.2 MCH 30.5 MCHC 32.7 RDW 14.0 RDW Differential 47.3 H Plt Count 231 MPV 10.2 Immature Gran % (Auto) 0.700 Neut % (Auto) 76.9 H Lymph % (Auto) 16.2 L Benzie % (Auto) 6.0 Eos % (Auto) 0.0 Baso % (Auto) 0.2 Absolute Neuts (auto) 7.2 Absolute Lymphs (auto) 1.52 Total Counted Not Reportable Sodium Cancelled 133 L Potassium Cancelled 3.9 Chloride Cancelled 99 Carbon Dioxide Cancelled 28.0 Anion Gap Cancelled 6 BUN Cancelled 45 H Creatinine Cancelled 1.41 H Estim Creat Clear Calc Cancelled 50.84 Est GFR (MDRD) Af Amer Cancelled 64 Est GFR (MDRD) Non-Af Cancelled 53 L BUN/Creatinine Ratio Cancelled 31.9 H Glucose Cancelled 133 H Calcium Cancelled 8.3 L POC Glucose 10/11/18 10/10/18 10/10/18 06:38 22:27 16:51 POC Glucose 134 H 220 H 228 H 10/10/18 12:01 POC Glucose 222 H Medical Necessity - Tobacco Use Smoking Status: Current some day smoker Assessment/Plan All Active Problems (Last Updated 05/24/18 @ 14:48 by Kana Khan MD) COPD exacerbation (Acute) Abdominal pain (Resolved) Acute non-ST segment elevation myocardial infarction (Resolved) NSTEMI (non-ST elevated myocardial infarction) (Resolved) Non-STEMI (non-ST elevated myocardial infarction) (Resolved) RECOMMENDATIONS: 1. Continue Augmentin as ordered, with plans to complete a 7-day treatment course. 2. Wean steroids over the next 12-14 days 3. Walking oximetry prior to discharge 4. Continue bronchopulmonary hygiene with incentive spirometry and PEP therapy. 5. Continue nicotine replacement therapy. 6. The patient should ideally follow up in the pulmonary medicine clinic within 2 weeks of his discharge from the hospital with nurse practitioner. IMPRESSIONS: 1. Acute hypoxemic respiratory insufficiency secondary to Haemophilus influenza pneumonia Patient appears to be responding to therapy well. Patient has been transitioned to prednisone therapy and is tolerating this well. Patient should complete a 7-day course of antibiotics. Would be happy to see patient in 2 weeks with nurse practitioner in the office. Pulmonary function test for quantification and clarification of lung function can be completed at that time. Patient should have a walking oximetry prior to discharge to exclude exertional hypoxemia. Okay to discharge from pulmonary perspective if no supplemental oxy gen is indicated. 2. Baseline mild COPD with exacerbation Continue scheduled bronchodilators along with steroids. The patient undoubtedly needs to follow-up in the pulmonary medicine clinic for further optimization of his baseline pulmonary status. 3. Tobacco dependency Smoking cessation is strongly advised. Continue nicotine replacement therapy as ordered. 4. Coronary artery disease/hypertension/hyperlipidemia Complicates care, management, recovery and prognosis. Continue home medications as indicated. Code Visit Inpatient E&M: 39989 [facility] L2
--- NOTE | 2018-10-11 15:24 | DS.PCM_ITS ---
Discharge Date and Diagnosis Date of Admission: 10/06/18 Date of Discharge: 10/11/18 - Primary Discharge Diagnosis post viral community acquired pneumonia' acute hypoxemic respiratory insufficiency - Secondary Discharge Diagnosis Chronic Problems (Last Updated 05/24/18 @ 14:48 by Kana Khan MD) COPD (chronic obstructive pulmonary disease) (Chronic) Obesity (BMI 30.0-34.9) (Chronic) Nicotine dependence (Chronic) Gout (Chronic) Degenerative cervical disc (Chronic) Claudication (Chronic) Chronic back pain (Chronic) Presence of automatic implantable cardioverter-defibrillator (Chronic) Presence of automatic implantable cardioverter-defibrillator (Chronic) H/O coronary artery bypass surgery (Chronic ~2008) HUMPHREY-LAD, SVG-D1, SVG-OM Chronic renal failure, stage 3 (moderate) (Chronic) Chronic systolic (congestive) heart failure (Chronic) Stented coronary artery (Chronic ~12/2016) has had 7 stents as of 06/15/17 Ischemic cardiomyopathy (Chronic) 25% ejection fraction in November 2016 V-tach (Chronic) has an AICD Benign essential hypertension (Chronic) Gastroesophageal reflux disease (Chronic) Hyperlipidemia (Chronic) Type 2 diabetes mellitus (Chronic) Morbid obesity (Chronic) CAD (coronary artery disease) (Chronic) Hospital Course and Treatment Imaging Results: Diagnostic Data Abdomen/Pelvis CT 10/06/18 07:08 IMPRESSION: 1. Right lower lobe interstitial pneumonitis, new when compared to 06/16/2018. 2. Mild thickening of the urinary bladder wall is also a new finding. 3. No suspicious mass or acute abnormality in the abdomen and pelvis. 4. Pronounced multilevel degenerative disc space narrowing with degenerative vacuum phenomenon at L1-L2, L2-L3, L3-L4 and L5-S1 disc space levels. 5. No other additional findings or changes when compared to 06/16/2018. Electronically Signed: Davi Mendoza MD at 9:09 EDT , Service support , Chest X-Ray 10/06/18 07:08 IMPRESSION: 1. No acute cardiopulmonary pathology. 2. 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 High resolution CT chest will be helpful for further evaluation if desired. 3. No significant interval change when compared to 09/21/2018. Electronically Signed: Davi Mendoza MD at 9:00 EDT , Service support , Chest CT 10/07/18 08:19 IMPRESSION: Bibasilar pulmonary infiltrates worse on the right side. Follow-up is recommended. Electronically Signed: Arcenio Leary, at 9:51 EDT , Service support , pulmonology- Dr Pop Operations: None Procedures: None Summary of Care Provided: The patient is a 68 year old M with a PMH as listed who was admitted with a complaint of cough, generalized malaise and diarrhea. Patient was recently admitted and managed for COPD exacerbation. He was discharged home but said he had not felt himself since then. He had a persistent cough which was productive of yellowish sputum as well as shortness of breath and wheezing and fever and chills. He also had some diarrhea and had associated nausea and abdominal pain. He denied any chest pain, palpitations, right. 3. Review of systems otherwise negative. TIn he ED, he was found to have leukocytosis of 17 but he had just finished a steroid dose. Chest x-ray showed no acute cardiopulmonary pathology with asymmetric emphysematous changes of the left upper lobes with right greater than the left. Abdominopelvic CT done on account of diarrhea and abdominal pain showed no infiltrates in the right lower lobe. He was admitted and is managed for post viral pneumonia and bronchial hyperresponsiveness as well as acute hypoxic respiratory insufficiency. On admission to the [facility] floor, patient started complaining of chest pain which he said felt like someone was sitting on his chest with assisted lightheadedness. EKG done showed T wave inversions in lateral leads. Initial EKG done was negative. He also be worked up for chest pain to rule out ACS. Patient was started on IV ceftriaxone and doxycycline. He was also started on IV Solu-Medrol and Mucinex as well as chest physiotherapy. Sputum cultures, blood cultures and respiratory panel as well as urine for strep and Legionella were obtained. These were all negative apart from sputum culturing H influenza. Patient's chest pain was noted to be mainly with coughing and so was therefore thought to be mainly pleuritic. Troponins were also negative. Patient still remains short of breath and a 2D echo was ordered which showed EF of 35%. Pulmonology was consulted on account of patient's persistent shortness of breath and wheezing and antibiotics were broadened to IV Zosyn. Patient gradually improved and was titrated down to 1 L of oxygen and eventually came off oxygen completely. Antibiotics were narrowed down to p.o. Augmentin. Patient remained stable and walking pulse ox showed saturation of 92-93% therefore patient did not qualify for home oxygen. He was discharged home with a prescription for p.o. Augmentin for 7 days. He is to follow-up with his primary care doctor and pulmonology as he would require pulmonary function test on outpatient basis. Was also discharged with a prescription for Medrol Dosepak. Patient seen and examined prior to discharge. He had no complaints. He was shortness of breath had resolved. However he had concerns about decompensating at home as he had been admitted for COPD exacerbation, went home and then came back with his condition. Patient was counseled and reassured that he had been in the hospital for 5 days and had been treated with antibiotics and breathing treatments and so there was less likelihood that he would decompensate at home. Review of systems otherwise negative. Labs and vitals reviewed. Home medication reviewed and reconciled. o/e: Vital Signs Height 5 ft 9 in Weight: 195 lb 12.328 oz Weight in Pounds 195.8 lbs Pulse Ox [AMBULATING on Room 92 Air] Pulse Ox [At REST on Room Air] 94 Pulse Ox 94 Temperature 97.4 F Pulse Rate 70 Respiratory Rate 18 Blood Pressure [BP] 100/63 Blood Pressure 116/68 Blood Pressure Position [BP] Semi-Fowlers Blood Pressure Position Sitting General: Alert, Oriented x3, Cooperative HEENT: Atraumatic, PERRLA, EOMI, Normocephalic Oral: Dry Mucosa Neck: Supple, No JVD, Negative Carotid Bruits Lungs: Short of Breath, - -mild wheezing in all lung bui, very few crackles in lung bases. ON room air. Cardiovascular: Regular rate, Regular Rhythm, Normal S1, Normal S2, No murmurs Abdomen: Bowel Sounds Present Extremities: No clubbing, No cyanosis, No edema, Capillary Refill Less than 3 Seconds Skin: No rashes, No breakdown Musculoskeletal: No Tenderness to Palpation of Joints or Extremities Lymphatic: No Cervical, Supraclavicular, or Inguinal Adenopathy Neurological: Cranial nerves II-XII grossly intact, Neuro grossly intact Psych/Mental Status: Normal Affect, Appropriate, Alert and oriented to time, place, person, mood and affect Plan as above. - Physical Exam Vital Signs Temp Pulse Resp BP Pulse Ox 97.4 F L 70 18 116/68 94 10/11/18 08:10 10/11/18 08:11 10/11/18 08:10 10/11/18 08:10 10/11/18 08:15 Oxygen Flow Rate (L/min) [ 0 AMBULATING on Room Air] Oxygen Flow Rate (L/min) [At 0 REST on Room Air] Oxygen Flow Rate (L/min) 3 Oxygen Delivery Method Room Air Weight: 195 lb 12.328 oz Body Mass Index (BMI) 28.9 Intake and Output for Last 24 Hours 10/09/18 10/10/18 10/11/18 23:59 23:59 23:59 Intake Total 2563.7 / 2563.7 1570 / 1570 420 / 420 Output Total 100 / 100 Balance 2463.7 / 2463.7 1570 / 1570 420 / 420 Microbiology Past 72 Hours 10/06/18 08:08 Blood Culture - Final Blood Culture (Wb) - Anticubital Right No growth in 5 days. 10/06/18 07:30 Blood Culture - Final Blood Culture (Wb) - Anticubital Left No growth in 5 days. 10/06/18 17:00 Gram Stain - Final Sputum, Expectorated/Coughed Respiratory Culture - Final Haemophilus influenzae Laboratory Tests Past 24 Hrs 10/11/18 10/11/18 10/11/18 05:18 05:18 06:08 WBC 9.4 RBC 4.69 Hgb 14.3 Hct 43.7 MCV 93.2 MCH 30.5 MCHC 32.7 RDW 14.0 RDW Differential 47.3 H Plt Count 231 MPV 10.2 Immature Gran % (Auto) 0.700 Neut % (Auto) 76.9 H Lymph % (Auto) 16.2 L [place] % (Auto) 6.0 Eos % (Auto) 0.0 Baso % (Auto) 0.2 Absolute Neuts (auto) 7.2 Absolute Lymphs (auto) 1.52 Total Counted Not Reportable Sodium Cancelled 133 L Potassium Cancelled 3.9 Chloride Cancelled 99 Carbon Dioxide Cancelled 28.0 Anion Gap Cancelled 6 BUN Cancelled 45 H Creatinine Cancelled 1.41 H Estim Creat Clear Calc Cancelled 50.84 Est GFR (MDRD) Af Amer Cancelled 64 Est GFR (MDRD) Non-Af Cancelled 53 L BUN/Creatinine Ratio Cancelled 31.9 H Glucose Cancelled 133 H Calcium Cancelled 8.3 L POC Glucose 10/11/18 10/10/18 10/10/18 06:38 22:27 16:51 POC Glucose 134 H 220 H 228 H Discharge Diet: Low fat/ Low Cholesterol Discharge Activity: Return to Normal Activity Weight Bearing Status: Weight bearing as tolerated Call your doctor if you observe: Fever of 101 or Higher, Shortness of breath, Chest pain Home Medications: Medications to take at Discharge Nitroglycerin [Nitrostat] 0.4 mg SUBLINGUAL Q5M PRN 09/17/15 Isosorbide Mononitrate [Imdur] 30 mg PO DAILY 02/18/17 Albuterol Aerosols [Ventolin Aerosols] 2.5 mg INHALATION Q4H PRN PRN 02/23/17 albuterol sulfate HFA 90 mcg/actuation aerosol inhaler 2 puff INHALATION Q4H PRN g 07/31/17 Pantoprazole Sodium [Protonix] 40 mg PO DAILY 11/15/17 umeclidinium 62.5 mcg-vilanterol 25 mcg/actuation powdr for inhalation 1 inh INHALATION DAILY #60 ea MDD copd 02/05/18 Metoprolol Succinate [Toprol Xl] 100 mg PO DAILY 05/20/18 Lisinopril [Zestril] 2.5 mg PO DAILY 05/21/18 Rosuvastatin Calcium [Crestor] 40 mg PO DAILY 06/16/18 Spironolactone 25 mg PO DAILY 06/16/18 Clopidogrel Bisulfate [Plavix] 75 mg PO DAILY 09/01/18 Furosemide 40 mg PO DAILY 09/01/18 Allopurinol 300 mg PO DAILY 09/20/18 Aspirin E.C. [Ecotrin] 325 mg PO DAILY@0800 09/20/18 Nicotine [Nicoderm Cq] 21 mg TRANSDERM. DAILY #28 patch 09/21/18 Oxycodone HCl/Acetaminophen [Percocet 7.5-325 mg Tablet] 1 tab PO 4X/DAY PRN 10/06/18 Amox/Clavulanate Tablet [Augmentin Tablet] 875 mg PO BID #14 tablet 10/11/18 Guaifenesin [Mucinex] 1,200 mg PO BID #30 tablet 10/11/18 MethylPREDNISolone DosePak [Medrol DosePak] 4 mg PO UD #1 box 10/11/18 Following Prescrptions Were Given to Patient: MethylPREDNISolone DosePak [Medrol DosePak] 4 mg PO UD #1 box Amox/Clavulanate Tablet [Augmentin Tablet] 875 mg PO BID #14 tablet Guaifenesin [Mucinex] 1,200 mg PO BID #30 tablet Primary Care Physician: Juan De La Vega III, MD [Primary Care Provider] - Please follow up with your Primary Care Physician in: one week Please Follow Up With: Carlos Pop, DO When: 1 week Patient Instructions: What Is Pneumonia?, Discharge Instructions for Pneumonia Disposition: Home Minutes spent on discharge:: 40 Patient Condition:: Stable Medical Necessity - Tobacco Use Smoking Status: Current some day smoker Meaningful Use Info Meaningful Use Diagnoses (Choose all that apply): None applicable Code Visit Inpatient E&M: 05048 Disch Hosp
--- NOTE | 2018-10-12 15:59 | CASEMGMT ---
LEONIE JEAN-BAPTISTE Discharge Follow-up Phone Call: RONAK: Mee Strata: 4 Call Date: 10/12/18 Discharge Date: 10/11/18 Time of Call: 1550 Duration: 5 minutes ? Admitting Diagnosis: Pneumonia This LEONIE JEAN-BAPTISTE contacted patient via phone regarding discharge. Pt states he has been doing well since discharge. Inquired regarding contact from home health and pt stated his insurance will not pay if he is not homebound. Pt adamantly stated he would not be a prisoner in his own home and states it would be like he was in senior care. Pt denies any difficulty breathing as long as he takes it slow. Denies any difficulty maneuvering around his home. Pt states he has his follow-up appointments with Dr. Pop and Dr. Hortensia De La Vega and has obtained his prescriptions including the medrol dose julio and the antibiotic. Pt states the Mucinex was not covered by his insurance since it is available [id number] but he has some at home that he is taking. Pt denies any additional questions or concerns at this time. Elise Mckeon RN
== END 2018-10-11 10:49 | disposition home or self-care (01) | DRG 194 ==
LOC: ED 10:19 → MS3 11:45 → ED 10-07 10:20 → MS3 10-07 11:42
PROVIDERS: Admitting Provider Student in an Organized Health Care Education/Training Program; Emergency Provider Emergency Medicine; Family Provider Family Medicine; PCP Family Medicine; Visit Provider Student in an Organized Health Care Education/Training Program
DX: J14 Pneumonia due to Hemophilus influenzae (principal); E87.1 Hypo-osmolality and hyponatremia; I13.0 Hypertensive heart and chronic kidney disease with heart failure and stage 1 through stage 4 chronic kidney disease, or unspecified chronic kidney disease; I50.22 Chronic systolic (congestive) heart failure; J44.1 Chronic obstructive pulmonary disease with (acute) exacerbation; I25.10 Atherosclerotic heart disease of native coronary artery without angina pectoris; Z66 Do not resuscitate; R06.89 Other abnormalities of breathing; R09.02 Hypoxemia; E78.5 Hyperlipidemia, unspecified; E11.22 Type 2 diabetes mellitus with diabetic chronic kidney disease; N18.3 Chronic kidney disease, stage 3 (moderate); K21.9 Gastro-esophageal reflux disease without esophagitis; I25.5 Ischemic cardiomyopathy; M10.9 Gout, unspecified; Z95.5 Presence of coronary angioplasty implant and graft; I25.2 Old myocardial infarction; Z95.1 Presence of aortocoronary bypass graft; Z95.810 Presence of automatic (implantable) cardiac defibrillator; F17.200 Nicotine dependence, unspecified, uncomplicated; E87.6 Hypokalemia; G89.29 Other chronic pain; M54.9 Dorsalgia, unspecified
CPT/HCPCS: 36415; 71045; 71250; 74177; 80048; 80053; 81001; 82962; 83605; 83880; 83930; 84484; 85025; 87040; 87070; 87077; 87205; 87449; 87633; 93005; 93306; 94640; 94667; 94668; 97162; 97166; 97530; 97802; 99285; 99406; J7030; Q9957; Q9967; A4216; C8929; J2405

== ENCOUNTER 2018-10-22 09:18 | Emergency (ER) | payer MEDICARE, SELFPAY ==
[2018-10-06 12:56] VITALS: BMI 28.9
[2018-10-22 09:19] VITALS: BP 99/64; PULSE 83; RESP 18; TEMP 36.4; O2SAT 92; BMI 31.1
--- NOTE | 2018-10-22 09:37 | RAD_ITS ---
STUDY: X-RAY CHEST REASON FOR EXAM: Male, 68 years old. Cough. Shortness of breath. TECHNIQUE: PA and lateral views of the chest. COMPARISON: Comparison is made with prior study dated October 06, 2018. FINDINGS: EKG electrodes are seen. Scattered calcified granulomas. There is no demonstrated pleural abnormality. Sternal cerclage wires and vascular clips are present from a prior sternotomy and coronary artery bypass graft procedure (CABG). Coronary artery stent. A left-sided dual-chamber pacemaker is seen. Normal mediastinum and serjio. Normal visualized pulmonary arteries. There is atherosclerotic tortuosity of the aortic arch and descending thoracic aorta. There is demineralization of the osseous structures. Normal visualized ribs, clavicles, and shoulders. There is no demonstrated abnormality of the visualized soft tissue structures of the upper abdomen. RAD/Chest PA and Lateral IMPRESSION: No acute abnormality is seen. Stable examination. Electronically Signed: Arcenio Leary, at 10:39 EDT , Service support ,
--- NOTE | 2018-10-22 09:37 | EKG12_ITS ---
Test Reason : DYSRHYTHMIA Blood Pressure : / mmHG Vent. Rate : 072 BPM Atrial Rate : 072 BPM P-R Int : 140 ms QRS Dur : 104 ms QT Int : 414 ms P-R-T Axes : 047 -17 137 degrees QTc Int : 453 ms Sinus rhythm with marked sinus arrhythmia ST & T wave abnormality, consider anterolateral ischemia Poor R-Wave Progression Abnormal ECG Confirmed by BERYL LUNDBERG, MICHELLE ([id number]), content editor COREY BRYANT ([id number]) on 10/25/2018 1:41:21 PM Referred By: ISABELL Confirmed By:MICHELLE CORDOBA MD
[2018-10-22 09:41] VITALS: O2SAT 96
--- NOTE | 2018-10-22 09:43 | ED.DCSUM_ITS ---
History of Present Illness Chief Complaint: Shortness of Breath Informant: Patient Onset: Today Context: Sudden Onset - woke him up around 3am Timing: Continuous Quality: sob Location: chest Current Severity: Mild Maximum Severity: Severe Worsened by: exertion, lying down Relieved by: O2 in ED, rest Associated Symptoms: YARD HOSTLER cough Narrative: Patient states he was recently released from the hospital here, being an inpatient for pneumonia, CHF, COPD. He is on no oxygen at home. He woke up really short of breath this morning. States he has had a nonproductive cough for about a month. Feels like he needs to get sputum up but cannot (he was apparently producing yellow sputum while in the hospital). Denies any chest discomfort or palpitations or syncope. No swelling in his legs recently. He was about to perform a nebulizer treatment on himself when his home health nurse arrived and told him to go right to the ER, so he did not do his nebulizer treatment and has had no other treatments this morning. Took his last pill of antibiotic yesterday, Augmentin. - Past Medical History (1) COPD (chronic obstructive pulmonary disease) Status: Chronic (2) Gout Status: Chronic (3) Degenerative cervical disc Status: Chronic (4) Claudication Status: Chronic (5) Chronic back pain Status: Chronic (6) Presence of automatic implantable cardioverter-defibrillator Status: Chronic (7) Chronic renal failure, stage 3 (moderate) Status: Chronic (8) Chronic systolic (congestive) heart failure Status: Chronic (9) Ischemic cardiomyopathy Status: Chronic Comment: 25% ejection fraction in November 2016 (10) V-tach Status: Chronic Comment: has an AICD (11) Benign essential hypertension Status: Chronic (12) Gastroesophageal reflux disease Status: Chronic (13) Hyperlipidemia Status: Chronic (14) Type 2 diabetes mellitus Status: Chronic (15) CAD (coronary artery disease) Status: Chronic Past Medical History - Allergies and Home Meds Allergies/Adverse Reactions: Allergies chlorpromazine HCl [From Thorazine] Allergy (Severe, Verified 10/22/18 09:19) Hives PER PATIENT tramadol HCl [From Ultram] Allergy (Severe, Verified 10/22/18 09:19) Hives PER PATIENT codeine Allergy (Intermediate, Verified 10/22/18 09:19) Hives atorvastatin Adverse Reaction (Intermediate, Verified 10/22/18 09:19) Other LEG PAIN/CRAMPS naproxen Adverse Reaction (Verified 10/22/18 09:19) Upset Stomach promethazine [From Phenergan] Adverse Reaction (Verified 10/22/18 09:19) Other CONFUSION Primary Care Physician: Juan De La Vega III, MD [Primary Care Provider] - Surgical History: angioplasty - stents x10, coronary bypass surgery, - - AICD placement, back surgery x 2, hernia repair Lives: Alone Smoking Status: Former smoker Drugs: None - Family History Paternal Family History: Family History (Last Reviewed 12/15/17 @ 10:18 by Ramonita Alcantar) Brother CAD (coronary artery disease) Myocardial infarction Sudden cardiac Mother Cancer Hypertension Father Cancer COPD (chronic obstructive pulmonary disease) Family History: Reports: Cancer, Heart Disease Maternal Family History: Family History (Last Reviewed 12/15/17 @ 10:18 by Ramonita Alcantar) Brother CAD (coronary artery disease) Myocardial infarction Sudden cardiac Mother Cancer Hypertension Father Cancer COPD (chronic obstructive pulmonary disease) Family History: Reports: - - Patient notes a paternal family history of chronic lung disease, lung cancer with history of tobacco use. Review of Systems General: Reports: Fever - 101 last night, Malaise. Denies: Chills Eyes: Denies: Visual changes - bilaterally, Diplopia ENT: Denies: Rhinorrhea, Sore throat Cardiovascular: Denies: Chest pain, Palpitations Respiratory: Reports: Dyspnea, Cough, Orthopnea - chronic, Paroxysmal nocturnal dyspnea. Denies: Sputum Gastrointestinal: Denies: Abdominal pain, Nausea, Vomiting, Diarrhea, Melena, Hematochezia Genitourinary: Denies: Dysuria, Hematuria, Frequency Musculoskeletal: Denies: Back pain, Swelling, Extremity Pain Skin: Denies: Rash, Wounds Neurological: Denies: Headache, Weakness, Numbness Physical Exam Vital Signs/Narrative: Vital Signs Temp Pulse Resp BP Pulse Ox 10/22/18 09:19 97.5 F L 83 18 99/64 92 Inital Vital Signs reviewed: Yes General: Well nourished, Well developed, No Acute Distress Head: Normocephalic, Atraumatic Eyes: Perrl, EOMI ENT: Moist mucous membranes, No rhinorrhea Neck: Supple, Nontender, No JVD Cardiovascular: Regular rate, Regular rhythm, No murmurs - faint HSs Respiratory: No distress, Chest nontender, Rales - right base, Diminished - throughout, symmetrically Abdomen: Soft, Nontender, Nondistended, Normal bowel sounds Back: Nontender, Normal Inspection. Negative for: CVA tenderness Extremities: Nontender, No edema. Negative for: Calf Tenderness Skin: Normal color, No rash Neurological: Alert, Oriented x3, Cranial nerves II-XII grossly intact, Normal Strength, Normal Sensation Psychological: Normal affect, Normal Mood Diagnostic/Tx/Re-eval Impressions Chest X-Ray 10/22/18 09:37 IMPRESSION: No acute abnormality is seen. Stable examination. Electronically Signed: Arcenio Patelrichard, at 10:39 EDT , Service support , 10/22/18 09:37 Chest PA and Lateral [RAD] Stat Laboratory Results 10/22/18 10/22/18 09:59 09:59 WBC 10.5 RBC 4.60 Hgb 13.8 Hct 42.9 MCV 93.3 MCH 30.0 MCHC 32.2 RDW 15.0 H RDW Differential 50.6 H Plt Count 163 MPV 9.8 Immature Gran % (Auto) 0.400 Neut % (Auto) 78.3 H Lymph % (Auto) 12.9 L [place] % (Auto) 7.1 Eos % (Auto) 1.1 Baso % (Auto) 0.2 Absolute Neuts (auto) 8.2 H Absolute Lymphs (auto) 1.36 Total Counted Not Reportable Sodium 143 Potassium 4.3 Chloride 108 H Carbon Dioxide 29.0 Anion Gap 6 BUN 24 H Creatinine 1.89 H Estim Creat Clear Calc 36.69 Est GFR (MDRD) Af Amer 46 L Est GFR (MDRD) Non-Af 38 L BUN/Creatinine Ratio 12.7 Glucose 116 H Calcium 8.9 Troponin I 0.024 - Rhythm Strip Rhythm Strip: Sinus Rhythm Rate: 72 Ectopy: None - EKG Initial EKG Interpretation: Sinus Rhythm, No Acute Injury Pattern, LBBB, Non-Specific ST Changes - lateral repol abn Prior: Unchanged - Medical Decision Making Other than chronic renal insufficiency, his workup is unremarkable, EKG is stable. He was hypoxic in the mid 80s when he arrived here today, so he was placed on 2 L nasal cannula with oxygen saturations at 92% then. He was found to be sleeping and apneic for 20+ seconds in the ED, arousable, but refused CPAP or BiPAP. Has a history of sleep apnea. Therefore obtained an ABG, it shows that his pH is neutral with a PCO2 51, PO2 73 on 2 L nasal cannula with oxygen saturations at 94% and bicarb calculated around 30. This is consistent with compensated chronic respiratory acidosis due to COPD and subsequent CO2 retention. He was treated with a duo nebulizer treatment. He feels better afterwards. I took him off of his oxygen. He wavered between 89-92% on room air. I had him walk down the kaur and back to the room on his own, he had no dyspnea, and his pulse ox was 94% when he returned to the room immediately afterwards. He prefers to go home. I think this is reasonable. I think red oing a prednisone taper with another Medrol Dosepak would be reasonable, and putting him on a macrolide to cover for atypicals. He states that he saw his doctor 2 days ago, he heard possible persistent pneumonia in the right lower lobe, my exam also included some rhonchi/rales in the right lower lobe. In the hospital his chest x-ray did not show anything significant there, but his CT showed interstitial infiltrates in the right lower lobe, our x-ray looks good here as well. This is likely related to his COPD. I think treating him as an exacerbation that is persistent and covering for atypicals is reasonable along with close outpatient follow-up which he is already planning on doing after the weekend. Patient is comfortable with all of this plan. ED Disposition - Plan for ED Patient: Disposition: Home or Assisted Living Diagnosis: COPD exacerbation Instructions: ED COPD Flare Prescriptions: Azithromycin 250 mg PO DAILY #6 tablet MethylPREDNISolone DosePak [Medrol DosePak] 4 mg PO UD #1 box Referrals: Juan De La Vega III, MD [Primary Care Provider] - 3-5 Days
[2018-10-22] MEDS: Ipratropium/Albuterol Sulfate 3 ML AMPUL.NEB INHALATION (09:54)
[2018-10-22 09:55] VITALS: PULSE 75; RESP 16
[2018-10-22 10:07] LABS: Absolute Lymphocyte Count 1.36 X10^3/ul (0.83-4.51); Absolute Neutrophil Count 8.2 X10^3/uL (2.0-7.7); Basophil# 0.02 X10^3/uL; Basophil% 0.2 % (0-1); Eosinophil# 0.12 X10^3/uL; Eosinophils% 1.1 % (0-5); Hematocrit 42.9 % (40-54); Hemoglobin 13.8 g/dl (13.0-16.5); Lymphocyte # 1.36 X10^3/ul (4.0); Lymphocyte % 12.9 % (19-41); Mean Corp Hgb Conc 32.2 g/gl (32-36); Mean Corpuscular Volume 93.3 fL (80-94); Mean Platelet Vol. 9.8 fl (6.2-12.0); Monocyte# 0.75 X10^3/uL; Monocyte% 7.1 % (0-10); Neutrophil # 8.22 X10^3/uL (2.7-7.7); Neutrophil % 78.3 % (47-70); POSITIVE COUNT NO; POSITIVE DIFFERENTIAL NO; POSITIVE MORPHOLOGY NO; Platelet Count 163 K/mm3 (150-450); RBC Distribution Width SD 50.6 fl (35.1-43.9); White Blood Count 10.5 K/mm3 (4.4-11.0)
[2018-10-22 10:22] VITALS: BP 93/57; PULSE 72; RESP 16; TEMP 36.4; O2SAT 95
[2018-10-22 10:29] LABS: BUN 24 mg/dL (7-18); Creatinine, Serum 1.89 mg/dL (0.70-1.30); Glucose 116 mg/dL (74-106)
[2018-10-22 10:30] LABS: Anion Gap 6 (5-15); BUN/Creat Ratio 12.7 RATIO (10-20); Calcium,Total 8.9 mg/dL (8.5-10.1); Chloride 108 mmol/L (98-107); EST Glomerular Filtration Rate 38 mL/min (>60); Est Glom Filt Rate - Afr Amer 46 mL/min (>60); Estimated Creatinine Clearance 36.69 ml/min; Potassium 4.3 mmol/L (3.5-5.1); Sodium Level 143 mmol/L (136-145)
[2018-10-22 10:51] LABS: Allen Test POS; Base Excess 5 mmol/L (-2 to +2); Bicarbonate 29.9 mmol/L (22-26); Blood Gas Specimen Type ART; O2 Delivery Device Nasal Can; PO2 73 mmHG (75-100); SITE L Radial; SO2 94 % (95-99); Time Given 1044; Total Carbon Dioxide 31 mmol/L; pCO2 51.3 mmHg (35-45); pH 7.37 (7.35-7.45)
[2018-10-22 11:48] VITALS: BP 98/69; PULSE 73; RESP 22; TEMP 36.2; O2SAT 92
== END 2018-10-22 11:58 | disposition home or self-care (01) ==
PROVIDERS: Emergency Provider Emergency Medicine; Family Provider Family Medicine; PCP Family Medicine
DX: J44.1 Chronic obstructive pulmonary disease with (acute) exacerbation (principal); Z87.891 Personal history of nicotine dependence; M10.9 Gout, unspecified; M54.9 Dorsalgia, unspecified; G89.29 Other chronic pain; N18.3 Chronic kidney disease, stage 3 (moderate); Z95.810 Presence of automatic (implantable) cardiac defibrillator; I25.5 Ischemic cardiomyopathy; I12.9 Hypertensive chronic kidney disease with stage 1 through stage 4 chronic kidney disease, or unspecified chronic kidney disease; K21.9 Gastro-esophageal reflux disease without esophagitis; E78.5 Hyperlipidemia, unspecified; I25.10 Atherosclerotic heart disease of native coronary artery without angina pectoris; E11.9 Type 2 diabetes mellitus without complications
CPT/HCPCS: 36600; 71046; 80048; 82803; 84484; 85025; 93005; 94640; 99283

== ENCOUNTER 2018-11-03 16:49 | Emergency (ER) | payer MEDICARE, SELFPAY ==
[2018-11-03] VITALS (9 sets, daily range): BP systolic 86–123; BP diastolic 47–81; PULSE 60–72; RESP 14–22; TEMP 35.9; O2SAT 90–99; BMI 30.4
--- NOTE | 2018-11-03 17:27 | RAD_ITS ---
STUDY: X-RAY CHEST REASON FOR EXAM: Male, 68 years old. Not feeling well and hypotension TECHNIQUE: PA and lateral COMPARISON: October 22, 2017 FINDINGS: Lungs are mildly hyperinflated. There is tiny calcified granuloma in right lower lobe.. There is no demonstrated pleural abnormality. Postop change status post median sternotomy and CABG. Normal size heart. Normal mediastinum and serjio. Normal visualized pulmonary arteries. Normal visualized aortic arch and descending thoracic aorta. Pacer noted on the left with electrodes in satisfactory position Normal visualized thoracic spine. Normal visualized ribs, clavicles, and shoulders. There is no demonstrated abnormality of the visualized soft tissue structures of the upper abdomen. RAD/Chest PA and Lateral IMPRESSION: Mild hyperinflation and old granulomatous disease. No acute cardiopulmonary pathology. Electronically Signed: Warner Brown MD at 18:24 EDT , Service support ,
--- NOTE | 2018-11-03 17:27 | EKG12_ITS ---
Test Reason : GENERAL ILLNESS Blood Pressure : / mmHG Vent. Rate : 060 BPM Atrial Rate : 060 BPM P-R Int : 178 ms QRS Dur : 098 ms QT Int : 462 ms P-R-T Axes : -03 022 157 degrees QTc Int : 462 ms Atrial-paced rhythm ST & T wave abnormality, consider anterolateral ischemia Prolonged QT Abnormal ECG Confirmed by SHAVONEN LUNDBERG, LISA ([id number]), visual effects editor LANDRY YARBROUGH ([id number]) on 11/08/2018 4:28:38 PM Referred By: MARVIN/MAURO Confirmed By:LISA MARVIN MD
--- NOTE | 2018-11-03 17:29 | RAD_ITS ---
STUDY: X-RAY - LUMBAR SPINE REASON FOR EXAM: Male, 68 years old. Trauma with left hip pain TECHNIQUE: 3 view(s) of the lumbar spine were obtained. COMPARISON: None FINDINGS: Normal lumbar lordosis. There is mild levoscoliosis or splinting secondary to muscle spasm. There is a normal alignment of the vertebrae. No evidence for acute fracture or subluxation.. Multilevel disc space narrowing and ossific spurring. Vacuum disc degeneration at L5-S1 Calcification of cavernous carotids without evidence for aneurysm. RAD/Lumbar Spine 2 or 3 Views IMPRESSION: Moderate spondylosis. No evidence for acute fracture Electronically Signed: Warner Brown MD at 18:25 EDT , Service support ,
--- NOTE | 2018-11-03 17:29 | RAD_ITS ---
STUDY: X-RAY - PELVIS REASON FOR EXAM: Male, 68 years old. Trauma with bilateral hip pain TECHNIQUE: One view of the pelvis was obtained. COMPARISON: None. FINDINGS: There is a non-specific bowel gas pattern. Normal visualized soft tissue structures. Normal bilateral iliac wings, sacroiliac joints and visualized sacrum. There is a radiolucency traversing the left superior pubis possibly representing hairline fracture or possibly artifact.. Normal pubic symphysis. Normal ischial tuberosities. Normal visualized right femoral head. Normal right acetabulum. Narrowed right hip joint. Normal visualized left femoral head. Normal left acetabulum. Narrowed left hip joint. RAD/Pelvis 1 or 2 Views IMPRESSION: Questionable hairline fracture of the left superior pubis. Otherwise no evidence for acute fracture of the hips or pelvis. Degenerative changes of both hips. CT may be useful for further evaluation if clinically indicated Electronically Signed: Warner Brown MD at 18:28 EDT , Service support ,
[2018-11-03] MEDS: 0.9% Normal Saline 1,000 ML 1000 ML IV (17:52)
[2018-11-03] MEDS: 0.9% Normal Saline 1,000 ML 150 ML IV (17:52)
[2018-11-03 18:10] LABS: Absolute Lymphocyte Count 1.95 X10^3/ul (0.83-4.51); Absolute Neutrophil Count 2.9 X10^3/uL (2.0-7.7); Basophil# 0.02 X10^3/uL; Basophil% 0.3 % (0-1); Eosinophil# 0.21 X10^3/uL; Eosinophils% 3.5 % (0-5); Hematocrit 41.9 % (40-54); Hemoglobin 13.8 g/dl (13.0-16.5); Lymphocyte # 1.95 X10^3/ul (4.0); Lymphocyte % 32.9 % (19-41); Mean Corp Hgb Conc 32.9 g/gl (32-36); Mean Corpuscular Hgb 30.3 pg (27.0-32.0); Mean Corpuscular Volume 91.9 fL (80-94); Mean Platelet Vol. 9.2 fl (6.2-12.0); Monocyte# 0.82 X10^3/uL; Monocyte% 13.9 % (0-10); Neutrophil # 2.88 X10^3/uL (2.7-7.7); Neutrophil % 48.7 % (47-70); Platelet Count 267 K/mm3 (150-450); RBC Distribution Width CV 14.6 % (11.6-14.6); Red Blood Count 4.56 M/mm3 (4.6-6.2); White Blood Count 5.9 K/mm3 (4.4-11.0)
[2018-11-03 18:11] LABS: POSITIVE COUNT NO; POSITIVE DIFFERENTIAL NO; POSITIVE MORPHOLOGY NO
[2018-11-03 18:21] LABS: AST(SGOT) 17 U/L (15-37); Alanine Aminotransfer ALT/SGPT 27 U/L (16-61); Albumin, Serum 3.4 g/dL (3.2-5.0); Alkaline Phosphatase 89 U/L (45-117); Anion Gap 7 (5-15); BUN 29 mg/dL (7-18); BUN/Creat Ratio 19.6 RATIO (10-20); Bilirubin, Direct 0.08 mg/dL (0.00-0.30); Calcium,Total 8.7 mg/dL (8.5-10.1); Chloride 103 mmol/L (98-107); Creatinine, Serum 1.48 mg/dL (0.70-1.30); EST Glomerular Filtration Rate 50 mL/min (>60); Est Glom Filt Rate - Afr Amer 61 mL/min (>60); Estimated Creatinine Clearance 46.86 ml/min; Globulin 3.7 g/dL (2.2-4.2); Glucose 99 mg/dL (74-106); Lipase 131 U/L (73-393); Potassium 4.2 mmol/L (3.5-5.1); Protein, Total 7.1 g/dL (6.4-8.2); Sodium Level 137 mmol/L (136-145)
[2018-11-03 18:23] LABS: Bacteria 0 SEEN /hpf (None Seen); Mucous, Urine 0 SEEN /hpf (<or=2+); Red Blood Cells-Urine 0 SEEN /hpf (0-5); Squamous Epithelial Cells - UA 0 SEEN /hpf (0-5); White Blood Cells 0 SEEN /hpf (0-5)
[2018-11-03 18:27] LABS: Color, Urine Straw (Yellow); Glucose, Dipstick Normal (Normal); Ketone-Dipstick Negative (Negative); Leukocyte Esterase-Dipstick Negative /ul (Negative); Nitrite-Dipstick Negative (Negative); Occult Blood-Urine Negative /ul (Negative); Protein-Dipstick Negative (Negative); Specific Gravity, Urine 1.015 (1.002-1.030); Urine Bilirubin Dipstick Negative (Negative); Urine Clarity Clear (Clear); Urine Urobilinogen Normal (Normal)
--- NOTE | 2018-11-03 18:41 | CT_ITS ---
STUDY: CT ABDOMEN AND PELVIS WITH CONTRAST REASON FOR EXAM: Male, 68 years old. Abdominal and low back pain RADIATION DOSAGE (If Supplied By Facility): CTDIvol = ( 20.34 ) mGy, DLP = ( 1040.51 ) mGycm TECHNIQUE: Transaxial images were obtained from the dome of the diaphragm to the symphysis pubis without oral contrast. 100ML IV Isovue 300 was administered. Sagittal and coronal images were reconstructed. Individualized dose optimization techniques were used for this CT. COMPARISON: October 06, 2018 FINDINGS: There is prominence of the interstitial markings. Heart is enlarged.. Small hiatal hernia is present. Normal liver. Normal gallbladder and extrahepatic biliary system. Normal spleen. Normal pancreas. Normal bilateral adrenal glands. Normal right kidney. Normal left kidney. There is thickening of the pride of stomach and narrowing of the lumen which may be consistent with nonspecific gastritis. Normal small intestine. There is diffuse fecal retention within the colon. Diverticular changes of the descending and sigmoid colon without evidence for acute diverticulitis. The appendix is visualized and appears normal. Atherosclerotic changes of the aorta without evidence for aneurysm. Normal inferior vena cava. Normal retroperitoneum. There is mild diffuse thickening of the bladder wall. There are bilateral fat-containing inguinal hernias. Lumbar spine demonstrates mild spondylosis CT/Abdomen/Pelvis W IV Cont ONLY IMPRESSION: Bibasilar interstitial prominence. Findings which may be consistent with nonspecific gastritis. Diverticulosis of the descending and sigmoid colon without evidence for acute diverticulitis Other findings as above. Electronically Signed: Warner Brown MD at 19:30 EDT , Service support ,
--- NOTE | 2018-11-03 18:45 | ED.DCSUM_ITS ---
- ER Visit Summary Date of Service: 11/03/18 Chief Complaint: Generalized weakness History of Present Illness: The patient is a 68 M who presents the emergency department with generalized weakness. Patient states he has not been feeling well for several days. He notes decreased energy. He notes he has been sleeping more than normal. He notes decreased intake stating he is just not hungry. No vomiting or diarrhea. He states he feels short of breath and has a cough but it is not changed from normal. Today he was going on the stairs and slipped and fell landed on his buttock. He notes pain in the buttock region. States that home health took his blood pressure and stated that it was low and that he should come to the emergency room. Physical Examination: Afebrile vital signs are stable Gen: Well-nourished well-developed Head: Normocephalic atraumatic Eyes: Perrl EOMI ENT: TMs clear no rhinorrhea moist mucous membranes Neck: Supple no lymphadenopathy no JVD nontender CVS: Regular rate rhythm no murmurs normal S1-S2 Respiratory: No distress clear to auscultation bilaterally chest nontender Abdomen: Soft nontender nondistended normal bowel sounds no masses Back: Tender palpation of the lower lumbar and sacral region without contusion noted. No step-offs. Extremity: Nontender no edema Skin: Normal color no rash Neuro: alert orientated ?3 CN II-XII intact normal strength sensation reflexes Psych: Normal affect normal mood Emergency Department Course and Treatment: EKG shows an atrial paced rhythm at a rate of 60. CBC and chemistry showed a BUN of 28 creatinine 1.48. Liver lipase normal. Urinalysis normal troponin negative. Chest x-ray negative x-rays of the pelvis and lumbar spine showed a possible pubic rami fracture therefore CT of the abdomen pelvis is ordered she does not demonstrate a fracture or any other acute intra-abdominal pathology. Patient received IV fluids of 2 L. He also received OxyIR as he was having pain and then later Toradol. This point I believe the patient can be discharged home. [place] follow with primary care. He is tolerated p.o.[] Impression: 1. Weakness 2. Dehydration This note was generated with [employer] dictation software. It may contain incorrect words, spelling, and punctuation that were not noted in review of the chart prior to signing ED Disposition - Plan for ED Patient: Disposition: Home or Assisted Living Instructions: ED Weakness [facility] Referrals: Juan De La Vega III, MD [Primary Care Provider] - 2 Days
[2018-11-03] MEDS: oxyCODONE 5 MG Tablet 10 MG PO (19:26)
[2018-11-03] MEDS: 0.9% Normal Saline 1,000 ML 999 ML IV (20:28)
[2018-11-03] MEDS: Ketorolac 15 MG/ML Vial IV (21:02)
== END 2018-11-03 21:37 | disposition home or self-care (01) ==
PROVIDERS: Emergency Provider Emergency Medicine; Family Provider Family Medicine; PCP Family Medicine
DX: R53.1 Weakness (principal); E86.0 Dehydration; R51 Headache; R05 Cough; J44.9 Chronic obstructive pulmonary disease, unspecified; Z87.891 Personal history of nicotine dependence
CPT/HCPCS: 71046; 72100; 72170; 74177; 80048; 80076; 81001; 83690; 84484; 85025; 93005; 96361; 96374; 99285; J7030; Q9967; A4216

== ENCOUNTER 2018-11-06 10:37 | Emergency (ER) | payer MEDICARE, SELFPAY ==
[2018-11-03 16:50] VITALS: BMI 30.4
[2018-11-06 10:38] VITALS: BP 101/64; PULSE 83; RESP 20; TEMP 36.4; O2SAT 93; BMI 30.9
--- NOTE | 2018-11-06 10:52 | EKG12_ITS ---
Test Reason : SOB Blood Pressure : / mmHG Vent. Rate : 075 BPM Atrial Rate : 075 BPM P-R Int : 144 ms QRS Dur : 104 ms QT Int : 418 ms P-R-T Axes : 059 -22 150 degrees QTc Int : 466 ms Sinus rhythm with Premature atrial complexes ST & T wave abnormality, consider anterolateral ischemia Prolonged QT Abnormal ECG Confirmed by GERONIMO BLOOM ([id number]), magazine editor LANDRY YARBROUGH ([id number]) on 11/08/2018 4:40:34 PM Referred By: SUZI Confirmed By:GERONIMO BLOOM
--- NOTE | 2018-11-06 10:52 | RAD_ITS ---
STUDY: X-RAY CHEST REASON FOR EXAM: Male, 68 years old. Dyspnea and shortness of breath with recent pneumonia TECHNIQUE: PA and lateral views of the chest. COMPARISON: 11/03/2018 FINDINGS: EKG leads project over the chest. Coarsened interstitial lung markings in the lung bases but no airspace consolidation. There is no demonstrated pleural abnormality. Stable granuloma in the right lung base. There is mild cardiac enlargement. Two lead cardiac conduction device is seen via the left subclavian vein with lead tips projecting over the right atrium and right ventricle, respectively. Sternal wires and mediastinal surgical clips compatible with prior CABG. Normal visualized pulmonary arteries. Normal visualized aortic arch and descending thoracic aorta. There is demineralization of the osseous structures. Normal visualized ribs, clavicles, and shoulders. There is no demonstrated abnormality of the visualized soft tissue structures of the upper abdomen. RAD/Chest PA and Lateral IMPRESSION: No airspace consolidation or pleural effusion. Stable exam. Electronically Signed: Christian Bauman MD at 11:45 EDT , Service support ,
[2018-11-06] MEDS: Ipratropium/Albuterol Sulfate 3 ML AMPUL.NEB INHALATION (11:04)
[2018-11-06 11:06] VITALS: PULSE 60; RESP 18
[2018-11-06] MEDS: 0.9% Normal Saline 1,000 ML 150 ML IV (11:18)
[2018-11-06] MEDS: MethylPREDNISolone 125 MG/2 ML Vial IV (11:18)
[2018-11-06 11:31] LABS: Absolute Lymphocyte Count 1.83 X10^3/ul (0.83-4.51); Absolute Neutrophil Count 3.6 X10^3/uL (2.0-7.7); Basophil# 0.02 X10^3/uL; Basophil% 0.3 % (0-1); Eosinophil# 0.16 X10^3/uL; Eosinophils% 2.5 % (0-5); Hematocrit 41.6 % (40-54); Hemoglobin 13.9 g/dl (13.0-16.5); Lymphocyte # 1.83 X10^3/ul (4.0); Lymphocyte % 28.5 % (19-41); Mean Corp Hgb Conc 33.4 g/gl (32-36); Mean Corpuscular Volume 89.7 fL (80-94); Mean Platelet Vol. 9.3 fl (6.2-12.0); Monocyte% 12.5 % (0-10); Neutrophil # 3.58 X10^3/uL (2.7-7.7); Neutrophil % 55.7 % (47-70); POSITIVE COUNT NO; POSITIVE DIFFERENTIAL NO; POSITIVE MORPHOLOGY NO; Platelet Count 259 K/mm3 (150-450); RBC Distribution Width CV 14.4 % (11.6-14.6); RBC Distribution Width SD 46.5 fl (35.1-43.9); Red Blood Count 4.64 M/mm3 (4.6-6.2); White Blood Count 6.4 K/mm3 (4.4-11.0)
[2018-11-06 11:44] LABS: Anion Gap 6 (5-15); BUN 23 mg/dL (7-18); BUN/Creat Ratio 18.4 RATIO (10-20); Calcium,Total 8.9 mg/dL (8.5-10.1); Chloride 105 mmol/L (98-107); Creatinine, Serum 1.25 mg/dL (0.70-1.30); EST Glomerular Filtration Rate 61 mL/min (>60); Est Glom Filt Rate - Afr Amer 74 mL/min (>60); Estimated Creatinine Clearance 55.48 ml/min; Glucose 119 mg/dL (74-106); Potassium 4.2 mmol/L (3.5-5.1); Sodium Level 138 mmol/L (136-145)
[2018-11-06 12:07] LABS: BNP,B-Type NATRIURETIC PEPTIDE 157.1 pg/mL (0-100)
--- NOTE | 2018-11-06 12:52 | ED.VISSUMM ---
- ER Visit Summary Date of Service: 11/06/18 Chief Complaint: [Shortness of breath] History of Present Illness: The patient is a 68 M [presents to the emergency department with complaint of shortness of breath that started about a week ago. Patient complains of a cough that is nonproductive. He denies any fever. Patient complains of pain in his chest but only with coughing and with certain movement. Patient was sent in by his nurse who felt that patient may have pneumonia. Patient has a history of coronary artery disease, diabetes, hypertension, high cholesterol, COPD, and chronic back pain. Patient is not on home O2.] Physical Examination: [HEENT-PERRLA, EOMI. Cranial nerves II through XII grossly intact. TMs clear. Mucous membranes moist. No adenopathy. Cardiovascular-regular rate and rhythm without murmur or ectopy Lungs-mild tachypnea. No accessory muscle use or retractions. good aeration bilaterally. Patient has rhonchi next Tory wheezes bilaterally. Patient has some Abdomen-normoactive bowel sounds, soft, nontender, no rebound or rigidity, no peritoneal signs. Extremities-intact ?4, normal range of motion, normal pulses, atraumatic] Test Results: [EKG obtained arrival shows sinus rhythm with a ventricular rate of 75 bpm with some nonspecific ST changes. CBC with differential showed a white count of 6.4, hemoglobin 14, hematocrit 41, placed 259. Chemistries unremarkable troponin less than 0.015. BNP is 157]. Chest x-ray was unremarkable. Emergency Department Course and Treatment: [Patient was given a DuoNeb aerosol as well as Solu-Medrol 125 mill grams IV.] Treatment Plan: [Patient to follow-up with primary care physician 3-5 days. Patient given a prescription for doxycycline and prednisone.] Disposition: [Discharged home stable condition.] Patient to return if increasing shortness of breath or condition should worsen anyway. Impression: [COPD exacerbation.] This note was generated with [employer] dictation software. It may contain incorrect words, spelling, and punctuation that were not noted in review of the chart prior to signing ED Disposition - Plan for ED Patient: Referrals: Juan De La Vega III, MD [Primary Care Provider] -
--- NOTE | 2018-11-06 12:55 | ED.DEP ---
ED Disposition - Plan for ED Patient: Instructions: ED COPD Flare Prescriptions: Doxycycline 100 mg PO BID #20 cap Prednisone [Deltasone] 20 mg PO BID #10 tab Referrals: Juan De La Vega III, MD [Primary Care Provider] - 3-5 Days
[2018-11-06 13:05] VITALS: BP 141/75; PULSE 62; RESP 19; O2SAT 95
[2018-11-06] MEDS: Doxycycline 100 MG CAPSULE PO (13:06)
== END 2018-11-06 13:07 | disposition home or self-care (01) ==
LOC: ED 11:19
PROVIDERS: Emergency Provider Emergency Medicine; Family Provider Family Medicine; PCP Family Medicine
DX: J44.1 Chronic obstructive pulmonary disease with (acute) exacerbation (principal); I25.10 Atherosclerotic heart disease of native coronary artery without angina pectoris; E11.9 Type 2 diabetes mellitus without complications; I10 Essential (primary) hypertension; E78.00 Pure hypercholesterolemia, unspecified; K21.9 Gastro-esophageal reflux disease without esophagitis; G47.33 Obstructive sleep apnea (adult) (pediatric); G89.29 Other chronic pain; M54.9 Dorsalgia, unspecified
CPT/HCPCS: 71046; 80048; 83880; 84484; 85025; 87040; 93005; 94640; 96361; 96374; 99285; J7030

== ENCOUNTER 2018-12-01 16:38 | Inpatient (IN) | payer MEDICARE, SELFPAY ==
[2018-12-01] VITALS (9 sets, daily range): BP systolic 100–142; BP diastolic 56–91; PULSE 60–78; RESP 15–24; TEMP 36.6–36.9; O2SAT 94–100; BMI 32.4; BMI 32.1
--- NOTE | 2018-12-01 16:54 | EKG12_ITS ---
Test Reason : SOB Blood Pressure : / mmHG Vent. Rate : 070 BPM Atrial Rate : 070 BPM P-R Int : 140 ms QRS Dur : 102 ms QT Int : 424 ms P-R-T Axes : 067 -08 140 degrees QTc Int : 457 ms Normal sinus rhythm ST & T wave abnormality, consider anterolateral ischemia Abnormal ECG Confirmed by GERONIMO BLOOM ([id number]), staff editor COREY BRYANT ([id number]) on 12/06/2018 2:11:53 PM Referred By: EDUARDO Confirmed By:GERONIMO BLOOM
--- NOTE | 2018-12-01 16:57 | ED.VISSUMM ---
- ER Visit Summary Date of Service: 12/01/18 Chief Complaint: Shortness of breath History of Present Illness: The patient is a 68 M history of COPD without home O2, CAD, [place], multiple cardiac stents, prior quadruple bypass, renal insufficiency and diet-controlled diabetes. Patient states that he has been short of breath since yesterday. Nonproductive cough. No fever or chills. No chest pain except with coughing. No hemoptysis. No history of DVT or PE. No recent travel, surgery or immobilization. No leg pain or swelling. Physical Examination: Older male vital signs are stable blood pressure 123/65. Pulse ox on room air is 94%. He does not look septic or toxic. HEENT exam unremarkable. Moist with memories. Neck nontender no lymphadenopathy. No JVD. Lungs: Respiratory phase bilaterally. Wheezing throughout. No rales or rhonchi. Heart regular rhythm about 70 no murmur. Abdomen soft and nontender. Patient is moving all 4 extremities. Calves are nontender without edema or cords. Neurologically is awake and alert with no focal motor deficits. Test Results: Portable chest x-ray 1 view chronic changes no acute process. Left-sided pacemaker defibrillator. Read by myself the radiologist. EKG sinus rhythm rate of 70 inverted T waves V2 through V6. No acute OR. CBC White count 9. Hemoglobin 13. Electrolytes unremarkable creatinine 1.3. Normal gap. Troponin normal. BNP slightly elevated 171. Emergency Department Course and Treatment: Patient be treated with albuterol and DuoNeb aerosols. Also IV Solu-Medrol. Treatment Plan: Repeat exam at 1814 patient still wheezing and dyspneic even just sitting in bed. Wearing get him up to try to walking but I think she will have significant dyspnea on exertion and may become hypoxic. I do not think he will be able to go home. I will speak to the hospitalist about admission. Disposition: Admission Impression: Acute dyspnea secondary to exacerbation of COPD History of CAD, OR, diabetes, cardiac stents, defibrillator and prior quadruple bypass This note was generated with [employer] dictation software. It may contain incorrect words, spelling, and punctuation that were not noted in review of the chart prior to signing ED Disposition - Plan for ED Patient: Referrals: Juan De La Vega III, MD [Primary Care Provider] -
--- NOTE | 2018-12-01 17:00 | ED.DCSUM_ITS ---
- ER Visit Summary Date of Service: 12/01/18 Chief Complaint: Shortness of breath History of Present Illness: The patient is a 68 M history of COPD without home O2, CAD, [place], multiple cardiac stents, prior quadruple bypass, renal insufficiency and diet-controlled diabetes. Patient states that he has been sh ort of breath since yesterday. Nonproductive cough. No fever or chills. No chest pain except with coughing. No hemoptysis. No history of DVT or PE. No recent travel, surgery or immobilization. No leg pain or swelling. Physical Examination: Older male vital signs are stable blood pressure 123/65. Pulse ox on room air is 94%. He does not look septic or toxic. HEENT exam unremarkable. Moist with memories. Neck nontender no lymphadenopathy. No JVD. Lungs: Respiratory phase bilaterally. Wheezing throughout. No rales or rhonchi. Heart regular rhythm about 70 no murmur. Abdomen soft and nontender. Patient is moving all 4 extremities. Calves are nontender without edema or cords. Neurologically is awake and alert with no focal motor deficits. Test Results: Portable chest x-ray 1 view chronic changes no acute process. Left-sided pacemaker defibrillator. Read by myself the radiologist. EKG sinus rhythm rate of 70 inverted T waves V2 through V6. No acute [place]. CBC White count 9. Hemoglobin 13. Electrolytes unremarkable creatinine 1.3. Normal gap. Troponin normal. BNP slightly elevated 171. Emergency Department Course and Treatment: Patient be treated with albuterol and DuoNeb aerosols. Also IV Solu-Medrol. Treatment Plan: Repeat exam at 1814 patient still wheezing and dyspneic even just sitting in bed. Wearing get him up to try to walking but I think she will have significant dyspnea on exertion and may become hypoxic. I do not think he will be able to go home. I will speak to the hospitalist about admission. Disposition: Admission Impression: Acute dyspnea secondary to exacerbation of COPD History of CAD, [place], diabetes, cardiac stents, defibrillator and prior quadruple bypass This note was generated with [employer] dictation software. It may contain incorrect words, spelling, and punctuation that were not noted in review of the chart prior to signing ED Disposition - Plan for ED Patient: Referrals: Juan De La Vega III, MD [Primary Care Provider] -
--- NOTE | 2018-12-01 17:00 | RAD_ITS ---
STUDY: X-RAY CHEST REASON FOR EXAM: Male, 68 years old. Chest pain TECHNIQUE: Frontal view of the chest COMPARISON: X-Ray Chest November 06, 2018 FINDINGS: Left chest pacemaker is present. Intact sternotomy wires present. There is mild pulmonary vascular prominence without samara edema. There is no consolidation. There are no pleural effusions. There is no pneumothorax. The heart is normal in size. The visualized osseous structures are within normal limits. RAD/Chest 1 View (Portable) IMPRESSION: Mild pulmonary vascular prominence without samara edema. Electronically Signed: Warner Barroso, at 17:15 EDT Tel , Service support ,
[2018-12-01] MEDS: Albuterol 2.5 MG/3 ML VIAL.NEB. INHALATION ×3 (17:09)
[2018-12-01] MEDS: Ipratropium/Albuterol Sulfate 3 ML AMPUL.NEB INHALATION (17:09)
[2018-12-01] MEDS: MethylPREDNISolone 125 MG/2 ML Vial IV (17:20)
[2018-12-01 17:27] LABS: Absolute Lymphocyte Count 1.96 X10^3/ul (0.83-4.51); Absolute Neutrophil Count 5.8 X10^3/uL (2.0-7.7); Basophil# 0.02 X10^3/uL; Basophil% 0.2 % (0-1); Eosinophil# 0.25 X10^3/uL; Eosinophils% 2.7 % (0-5); Hematocrit 39.9 % (40-54); Lymphocyte # 1.96 X10^3/ul (4.0); Lymphocyte % 21.5 % (19-41); Mean Corp Hgb Conc 32.6 g/gl (32-36); Mean Corpuscular Hgb 29.8 pg (27.0-32.0); Mean Corpuscular Volume 91.5 fL (80-94); Mean Platelet Vol. 9.2 fl (6.2-12.0); Monocyte# 1.08 X10^3/uL; Monocyte% 11.8 % (0-10); Neutrophil # 5.79 X10^3/uL (2.7-7.7); Neutrophil % 63.5 % (47-70); Platelet Count 279 K/mm3 (150-450); RBC Distribution Width SD 49.3 fl (35.1-43.9); Red Blood Count 4.36 M/mm3 (4.6-6.2); White Blood Count 9.1 K/mm3 (4.4-11.0)
[2018-12-01 17:30] LABS: POSITIVE COUNT NO; POSITIVE DIFFERENTIAL NO; POSITIVE MORPHOLOGY NO
[2018-12-01 17:44] LABS: Anion Gap 5 (5-15); BUN 21 mg/dL (7-18); BUN/Creat Ratio 15.3 RATIO (10-20); Calcium,Total 8.8 mg/dL (8.5-10.1); Chloride 103 mmol/L (98-107); Creatinine, Serum 1.37 mg/dL (0.70-1.30); EST Glomerular Filtration Rate 55 mL/min (>60); Est Glom Filt Rate - Afr Amer 67 mL/min (>60); Estimated Creatinine Clearance 50.62 ml/min; Glucose 132 mg/dL (74-106); Potassium 4.2 mmol/L (3.5-5.1); Sodium Level 137 mmol/L (136-145)
[2018-12-01] MEDS: oxyCODONE 5 MG Tablet PO ×2 (18:45→21:16)
--- NOTE | 2018-12-01 18:47 | HP.PCM_ITS ---
Problem List (1) COPD (chronic obstructive pulmonary disease) Status: Chronic Qualifiers: (2) Gout Status: Chronic (3) Chronic back pain Status: Chronic Qualifiers: (4) Presence of automatic implantable cardioverter-defibrillator Status: Chronic (5) Chronic systolic (congestive) heart failure Status: Chronic (6) Stented coronary artery Status: Chronic Comment: has had 7 stents as of 06/15/17 (7) Ischemic cardiomyopathy Status: Chronic Comment: 25% ejection fraction in November 2016 (8) V-tach Status: Chronic Comment: has an AICD (9) Benign essential hypertension Status: Chronic (10) Gastroesophageal reflux disease Status: Chronic Qualifiers: (11) Hyperlipidemia Status: Chronic Qualifiers: (12) Type 2 diabetes mellitus Status: Chronic Qualifiers: (13) CAD (coronary artery disease) Status: Chronic Qualifiers: History of Present Illness Date of Admission: 12/01/18 Chief Complaint: Shortness of breath. The patient is a 68 year old M with multiple medical comorbidities as mentioned above presented to the medicine because of shortness of breath. His illness started yesterday with shortness of breath even at rest, worsen with even minimal activity, no relieving factor and associated with cough with minimal sputum as well as wheezing. He reported chest discomfort upon coughing. Denied real anterior chest pain. He denied fever or chills. He denied leg edema or weight gain. He denied PND or orthopnea. In the emergency department, he was afebrile, blood pressure and heart rate were stable and pulse ox was 97% on 3 L. His routine blood work was remarkable for BUN of 21 and creatinine of 1.27, otherwise normal. EKG revealed normal sinus rhythm with T wave inversion in lateral chest leads and those changes are chronic compared to recent EKG from November 03, 2018. No acute ischemic changes. His BNP was 171 but has been chronically elevated. Troponin was negative. Chest x-ray revealed questionable mild pulmonary vascular congestion, no acute infiltrate or consolidation. He is being admitted for acute hypoxic respiratory insufficiency likely due to acute COPD exacerbation and could be exaggerated by chronic systolic CHF. Past Medical History Past Medical History (Chronic Problems): Chronic Problems (Last Updated 12/01/18 @ 18:43 by Kana Khan MD) COPD (chronic obstructive pulmonary disease) (Chronic) Obesity (BMI 30.0-34.9) (Chronic) Nicotine dependence (Chronic) Gout (Chronic) Degenerative cervical disc (Chronic) Chronic back pain (Chronic) Presence of automatic implantable cardioverter-defibrillator (Chronic) H/O coronary artery bypass surgery (Chronic ~2008) HUMPHREY-LAD, SVG-D1, SVG-OM Chronic renal failure, stage 3 (moderate) (Chronic) Chronic systolic (congestive) heart failure (Chronic) Stented coronary artery (Chronic ~12/2016) has had 7 stents as of 06/15/17 Ischemic cardiomyopathy (Chronic) 25% ejection fraction in November 2016 V-tach (Chronic) has an AICD Benign essential hypertension (Chronic) Gastroesophageal reflux disease (Chronic) Hyperlipidemia (Chronic) Type 2 diabetes mellitus (Chronic) Morbid obesity (Chronic) CAD (coronary artery disease) (Chronic) Medical History: Medical History (Last Updated 12/01/18 @ 18:43 by Kana Khan MD) Nicotine dependence (Chronic) F17.200 Gout (Chronic) M10.9 Degenerative cervical disc (Chronic) M50.30 Chronic back pain (Chronic) M54.9, G89.29 Chronic renal failure, stage 3 (moderate) (Chronic) N18.3 Chronic systolic (congestive) heart failure (Chronic) I50.22 Ischemic cardiomyopathy (Chronic) I25.5 25% ejection fraction in November 2016 V-tach (Chronic) I47.2 has an AICD Benign essential hypertension (Chronic) I10 Gastroesophageal reflux disease (Chronic) K21.9 Hyperlipidemia (Chronic) E78.5 Type 2 diabetes mellitus (Chronic) E11.9 Morbid obesity (Chronic) E66.01 CAD (coronary artery disease) (Chronic) I25.10 Tubular adenoma of colon (Inactive) D12.6 Allergies chlorpromazine HCl [From Thorazine] Allergy (Severe, Verified 12/01/18 16:41) Hives PER PATIENT tramadol HCl [From Ultram] Allergy (Severe, Verified 12/01/18 16:41) Hives PER PATIENT codeine Allergy (Intermediate, Verified 12/01/18 16:41) Hives atorvastatin Adverse Reaction (Intermediate, Verified 12/01/18 16:41) Other LEG PAIN/CRAMPS naproxen Adverse Reaction (Verified 12/01/18 16:41) Upset Stomach promethazine [From Phenergan] Adverse Reaction (Verified 12/01/18 16:41) Other CONFUSION Home Medications: Ambulatory Orders Medication Instructions Recorded Isosorbide Mononitrate [Imdur] 30 mg PO DAILY 02/18/17 Albuterol Aerosols [Ventolin 2.5 mg INHALATION Q4H PRN PRN 02/23/17 Aerosols] albuterol sulfate HFA 90 2 puff INHALATION Q4H PRN g 07/31/17 mcg/actuation aerosol inhaler Pantoprazole Sodium [Protonix] 40 mg PO DAILY 11/15/17 umeclidinium 62.5 mcg-vilanterol 1 inh INHALATION DAILY #60 ea MDD 02/05/18 25 mcg/actuation powdr for copd inhalation Lisinopril [Zestril] 2.5 mg PO DAILY 05/21/18 Rosuvastatin Calcium [Crestor] 40 mg PO DAILY 06/16/18 Spironolactone 25 mg PO DAILY 06/16/18 Clopidogrel Bisulfate [Plavix] 75 mg PO DAILY 09/01/18 Furosemide 40 mg PO DAILY 09/01/18 Allopurinol 300 mg PO DAILY 09/20/18 Aspirin E.C. [Ecotrin] 325 mg PO DAILY@0800 09/20/18 Oxycodone HCl/Acetaminophen 1 tab PO 4X/DAY PRN 10/06/18 [Percocet 7.5-325 mg Tablet] Metoprolol Succinate 100 mg PO DAILY 12/01/18 Nicotine [Nicoderm Cq] 21 mg TRANSDERM. 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-C) Presence of automatic implantable cardioverter-defibrillator (Chronic) Z95.810 H/O coronary artery bypass surgery (Chronic) Onset Date: ~2008 Z95.1 HUMPHREY-LAD, SVG-D1, SVG-OM Stented coronary artery (Chronic) Onset Date: ~12/2016 has had 7 stents as of 06/15/17 Hx of hernia repair (Inactive) Z98.890, Z87.19 Previous back surgery (Inactive) Z98.890 Surgical History: angioplasty - stents x10, coronary bypass surgery, - - AICD placement, back surgery x 2, hernia repair Psychiatric History: No pertinent psych hx Lives: Spouse/ Significant Other Smoking Status: Current some day smoker Tobacco Use: Cigarettes Alcohol: None Drugs: None - *Family History Paternal Family History: Family History (Last Reviewed 10/27/18 @ 10:35 by TISH Blankenship) Brother CAD (coronary artery disease) Myocardial infarction Sudden cardiac Mother Cancer Hypertension Father Cancer COPD (chronic obstructive pulmonary disease) History Items: Cancer, Heart Disease Maternal Family History: Family History (Last Reviewed 10/27/18 @ 10:35 by TISH Blankenship) Brother CAD (coronary artery disease) Myocardial infarction Sudden cardiac Mother Cancer Hypertension Father Cancer COPD (chronic obstructive pulmonary disease) History Items: - - Patient notes a paternal family history of chronic lung disease, lung cancer with history of tobacco use. Review of Systems Constitutional: Reports: Weakness. Denies: Anorexia, Chills, Fever Eyes: Denies: Blurred vision, Double vision, Drainage, Redness HEENT: Denies: Difficulty Hearing, Ear Pain, Eye Pain, Nasal Congestion, Sore Throat Cardiovascular: Denies: Chest Pain, Chest Pressure, Edema, Heaviness, Light Headedness, Orthopnea, Paroxysmal Noc. Dyspnea, Syncope Respiratory: Reports: Cough, Pleuritic Pain, Shortness of Breath, Shortness of breath at rest, Shortness of breath upon exertion, Sputum production, Wheezing Gastrointestinal: Denies: Abdominal Pain, Constipation, Diarrhea, Nausea, Vomiting Genitourinary: Denies: Dysuria, Frequency, Hematuria Musculoskeletal: Denies: Arm Pain, Back Pain, Foot Pain Skin: Denies: Dryness, Rash Neurological: Denies: Balance problems, Double vision, Change in Speech, Slurred speech, Confusion, Focal weakness, Headaches, Incoordination, Numbness Psychiatric: Denies: Anxiety, Depression Endocrine: Denies: Change in Body Habitus, Polydipsia VTE Information - Inpt Only VTE Present on Admission: No VTE Mechan Device Prophylaxis: None VTE Pharm Prophylaxis ordered?: Yes - Physical Exam General: Alert, Oriented x3, Cooperative, - - Moderately short of breath at rest . HEENT: Atraumatic, PERRLA, EOMI, Normocephalic Oral: Moist Mucosa, No Gingival or Mucosal Lesions/ Ulcerations Neck: Supple, No JVD, Negative Carotid Bruits, Trachea Midline, Thyroid Normal Size and Texture Lungs: Diminished, Rhonchi, Short of Breath, Tachypneic, Wheezes, - - Decreased breath sounds bilateral, bilateral expiratory wheezes, rhonchi. Cardiovascular: Regular rate, Regular Rhythm, Normal S1, Normal S2, PMI Normal Abdomen: Bowel Sounds Present, Soft, Non Tender, Non-Distended, No Hepato- splenomegaly, Obese Extremities: No clubbing, No cyanosis, No edema Skin: No rashes, No breakdown Lymphatic: No Cervical, Supraclavicular, or Inguinal Adenopathy Neurological: Cranial nerves II-XII grossly intact, Motor Exam 5/5 strength throughout Psych/Mental Status: Normal Affect, Appropriate, Alert and oriented to time, place, person, mood and affect Vital Signs Temp Pulse Resp BP Pulse Ox 97.8 F 60 18 107/91 H 97 12/01/18 16:39 12/01/18 18:13 12/01/18 18:13 12/01/18 18:13 12/01/18 18:13 Oxygen Flow Rate (L/min) 3 Oxygen Delivery Method Nasal Cannula Weight: 213 lb 2.992 oz Body Mass Index (BMI) 32.4 Laboratory Tests Past 24 Hrs 12/01/18 12/01/18 12/01/18 17:15 17:15 17:15 WBC 9.1 RBC 4.36 L Hgb 13.0 Hct 39.9 L MCV 91.5 MCH 29.8 MCHC 32.6 RDW 15.0 H RDW Differential 49.3 H Plt Count 279 MPV 9.2 Immature Gran % (Auto) 0.300 Neut % (Auto) 63.5 Lymph % (Auto) 21.5 [place] % (Auto) 11.8 H Eos % (Auto) 2.7 Baso % (Auto) 0.2 Absolute Neuts (auto) 5.8 Absolute Lymphs (auto) 1.96 Total Counted Not Reportable Sodium 137 Potassium 4.2 Chloride 103 Carbon Dioxide 29.0 Anion Gap 5 BUN 21 H Creatinine 1.37 H Estim Creat Clear Calc 50.62 Est GFR (MDRD) Af Amer 67 Est GFR (MDRD) Non-Af 55 L BUN/Creatinine Ratio 15.3 Glucose 132 H Calcium 8.8 Troponin I 0.035 B-Natriuretic Peptide 171.0 H Clinical Impression(s) from Imaging Studies Chest X-Ray 12/01/18 17:00 IMPRESSION: Mild pulmonary vascular prominence without samara edema. Electronically Signed: Warner Barroso, at 17:15 EDT Tel , Service support , Assessment/Plan This is a 68 years old male patient presented to the emergency room because of shortness of breath, found to have acute hypoxic respiratory insufficiency likely due to acute COPD exacerbation and he is being admitted for treatment. #1 acute hypoxic respiratory insufficiency: This is attributed mainly to acute COPD exacerbation. Patient does have history of chronic suspect CHF and ischemic cardiomyopathy. His BNP is chronically elevated. Chest x-ray revealed questionable mild pulmonary vascular congestion. According to the clinical picture and his history, this acute respiratory insufficiency is likely due to acute COPD exacerbation. Plan: Admit to PCU, cardiac monitoring, serial cardiac enzymes, DuoNeb every 4 hours, albuterol as needed, IV cell Medrol, #2 acute COPD exacerbation: Chest x-ray reviewed as above. Plan: DuoNeb every 4 hours, albuterol IV Levaquin, PRN, IV Solu-Medrol, incentive spirometer, chest physiotherapy, oxygen to keep O2 saturation more than 92%. #3 ischemic cardiomyopathy/chronic systolic CHF: At this time, I doubt acute exacerbation but because of chest x-ray finding, I will give him couple of doses of IV Lasix. Continue nitrate, lisinopril and metoprolol. #4 type 2 diabetes mellitus: ADA diet, Accu-Cheks, insulin sliding scale, patient is not on any antidiabetic medications at home. #5 hypertension: Blood pressure stable, continue lisinopril, metoprolol and nitrate. #6 CAD status post CABG and stents: EKG reviewed as above, plan as above. Continue aspirin, Plavix, statins, BEHZAD inhibitors, beta-blockers and nitrates. #7 stage III chronic kidney disease: Baseline creatinine has been around 1.3 to 1.9 mg/dL, admission creatinine is 1.27, stable at baseline. #8 chronic back pain: Continue Percocet as needed, start OxyIR as needed. #9 history of V. tach status post ICD: EKG reviewed as above, no acute findings. #10 DVT prophylaxis: Subcu heparin. This note was generated with Dragon dictation software. It may contain incorrect words, spelling, and punctuation that were not noted in checking the note before signing. Code Visit Inpatient E&M: 34594 Init Hosp L3
[2018-12-01] MEDS: Heparin Injection (Vial) 5,000 UNIT/ML VIAL 5000 UNIT SC (21:00)
[2018-12-01] MEDS: levoFLOXacin IV 500 MG/100 ML BAG 100 MG IV (21:00)
[2018-12-01] MEDS: guaiFENesin 1,200 MG Tablet 1200 MG PO (21:01)
[2018-12-01] MEDS: Rosuvastatin 20 MG Tablet 40 MG PO (21:01)
[2018-12-01] MEDS: Insulin Lispro 100 UNIT/ML INSULN.PEN SQ (21:11)
[2018-12-01 22:26] LABS: Bedside Glucose 220 mg/dL (70-110)
[2018-12-02] VITALS (17 sets, daily range): BP systolic 99–123; BP diastolic 40–67; PULSE 64–103; RESP 16–20; TEMP 36.4–37.1; O2SAT 92–96
[2018-12-02] MEDS: oxyCODONE 5 MG Tablet PO ×6 (01:43→22:30)
[2018-12-02] MEDS: Ipratropium/Albuterol Sulfate 3 ML AMPUL.NEB INHALATION ×5 (02:10→22:27)
[2018-12-02] MEDS: Heparin Injection (Vial) 5,000 UNIT/ML VIAL 5000 UNIT SC ×3 (05:50→21:24)
[2018-12-02] MEDS: 0.9% NaCl Peripheral Flush Adult/Peds IV ×3 (05:51→17:31)
[2018-12-02] MEDS: Insulin Lispro 100 UNIT/ML INSULN.PEN SQ ×4 (06:34→21:24)
[2018-12-02 06:46] LABS: Absolute Lymphocyte Count 0.65 X10^3/ul (0.83-4.51); Hematocrit 40.2 % (40-54); Hemoglobin 13.2 g/dl (13.0-16.5); Lymphocyte # 0.65 X10^3/ul (4.0); Lymphocyte % 13.8 % (19-41); Mean Corp Hgb Conc 32.8 g/gl (32-36); Mean Corpuscular Hgb 29.7 pg (27.0-32.0); Mean Corpuscular Volume 90.5 fL (80-94); Mean Platelet Vol. 9.5 fl (6.2-12.0); Monocyte# 0.09 X10^3/uL; Monocyte% 1.9 % (0-10); Neutrophil # 3.98 X10^3/uL (2.7-7.7); Neutrophil % 84.3 % (47-70); Platelet Count 272 K/mm3 (150-450); RBC Distribution Width CV 14.6 % (11.6-14.6); Red Blood Count 4.44 M/mm3 (4.6-6.2); White Blood Count 4.7 K/mm3 (4.4-11.0)
[2018-12-02 06:49] LABS: POSITIVE COUNT NO; POSITIVE DIFFERENTIAL NO; POSITIVE MORPHOLOGY NO
[2018-12-02 06:56] LABS: Bedside Glucose 230 mg/dL (70-110)
[2018-12-02 06:59] LABS: Anion Gap 8 (5-15); BUN 24 mg/dL (7-18); BUN/Creat Ratio 18.6 RATIO (10-20); Calcium,Total 8.9 mg/dL (8.5-10.1); Chloride 103 mmol/L (98-107); Creatinine, Serum 1.29 mg/dL (0.70-1.30); EST Glomerular Filtration Rate 59 mL/min (>60); Est Glom Filt Rate - Afr Amer 71 mL/min (>60); Estimated Creatinine Clearance 53.76 ml/min; Glucose 211 mg/dL (74-106); Potassium 4.6 mmol/L (3.5-5.1); Sodium Level 137 mmol/L (136-145)
[2018-12-02] MEDS: Isosorbide Mononitrate 30 MG Tablet PO (09:01)
[2018-12-02] MEDS: Spironolactone 25 MG Tablet PO (09:01)
[2018-12-02] MEDS: guaiFENesin 1,200 MG Tablet 1200 MG PO ×2 (09:01→21:24)
[2018-12-02] MEDS: Pantoprazole Sodium 40 MG Tablet PO (09:02)
[2018-12-02] MEDS: Clopidogrel Bisulfate 75 MG Tablet PO (09:02)
[2018-12-02] MEDS: Aspirin E.C. 325 MG Tablet PO (09:03)
[2018-12-02] MEDS: Allopurinol 300 MG Tablet PO (09:03)
[2018-12-02] MEDS: 0.9% Normal Saline 1,000 ML 75 ML IV (09:10)
[2018-12-02] MEDS: levoFLOXacin IV 500 MG/100 ML BAG 100 MG IV (09:17)
--- NOTE | 2018-12-02 10:50 | PCM.PN.HOSP ---
Subjective: Patient seen and examined. He was admitted with a complaint of shortness of breath and is been managed for acute COPD exacerbation. As of breath is a bit better than when he came in. He initially could not expectorate his sputum but is now able to cough it up. He could not tell the color of the sputum. His does admit to some wheezing but denies any chest pain or palpitations, dizziness, diarrhea vomiting. Review of systems otherwise negative. Labs and vitals reviewed. Vitals/I&O's: Vital Signs Temp Pulse Resp BP Pulse Ox 98.8 F 70 16 99/44 L 93 12/02/18 09:00 12/02/18 09:00 12/02/18 09:00 12/02/18 09:00 12/02/18 09:00 Oxygen Flow Rate (L/min) 2 Oxygen Delivery Method Room Air Weight: 211 lb 3.2 oz Body Mass Index (BMI) 32.1 Intake and Output for Last 24 Hours 11/30/18 12/01/18 12/02/18 23:59 23:59 23:59 Intake Total 611 / 611 Balance 611 / 611 General: Alert, Oriented x3, Cooperative, No apparent distress HEENT: Atraumatic, PERRLA, EOMI, Normocephalic Oral: Moist Mucosa Neck: Supple, No JVD, Negative Carotid Bruits Lungs: Wheezes, - - decreased breath sounds bibasally, with moderate wheezes in all lung bui, and no crackles.saturating well on 2L of oxygen Cardiovascular: Regular rate, Regular Rhythm, Normal S1, Normal S2, No murmurs Abdomen: Bowel Sounds Present, Soft, Non Tender, Non-Distended, No Hepato-splenomegaly Extremities: No clubbing, No cyanosis, No edema, Capillary Refill Less than 3 Seconds Skin: No rashes, No breakdown Musculoskeletal: No Tenderness to Palpation of Joints or Extremities Lymphatic: No Cervical, Supraclavicular, or Inguinal Adenopathy Neurological: Cranial nerves II-XII grossly intact, Neuro grossly intact, Motor Exam 5/5 strength throughout Psych/Mental Status: Normal Affect, Appropriate, Alert and oriented to time, place, person, mood and affect Microbiology Past 72 Hours 12/02/18 02:15 Sputum, Expectorated/Coughed Gram Stain - Preliminary Laboratory Results 12/01/18 17:15: WBC 9.1, RBC 4.36 L, Hgb 13.0, Hct 39.9 L, MCV 91.5, MCH 29.8, MCHC 32.6, RDW 15.0 H, RDW Differential 49.3 H, Plt Count 279, MPV 9.2, Immature Gran % (Auto) 0.300, Neut % (Auto) 63.5, Lymph % (Auto) 21.5, [place] % (Auto) 11.8 H, Eos % (Auto) 2.7, Baso % (Auto) 0.2, Absolute Neuts (auto) 5.8, Absolute Lymphs (auto) 1.96, Total Counted Not Reportable 12/01/18 17:15: Sodium 137, Potassium 4.2, Chloride 103, Carbon Dioxide 29.0, Anion Gap 5, BUN 21 H, Creatinine 1.37 H, Estim Creat Clear Calc 50.62, Est GFR (MDRD) Af Amer 67, Est GFR (MDRD) Non-Af 55 L, BUN/Creatinine Ratio 15.3, Glucose 132 H, Calcium 8.8, Troponin I 0.035 12/01/18 17:15: B-Natriuretic Peptide 171.0 H 12/01/18 20:42: Troponin I < 0.015 12/01/18 21:09: POC Glucose 220 H 12/01/18 23:00: Troponin I 0.017 12/02/18 05:55: WBC 4.7, RBC 4.44 L, Hgb 13.2, Hct 40.2, MCV 90.5, MCH 29.7, MCHC 32.8, RDW 14.6, RDW Differential 48.0 H, Plt Count 272, MPV 9.5, Immature Gran % (Auto) 0.000, Neut % (Auto) 84.3 H, Lymph % (Auto) 13.8 L, [place] % (Auto) 1.9, Eos % (Auto) 0.0, Baso % (Auto) 0.0, Absolute Neuts (auto) 4.0, Absolute Lymphs (auto) 0.65 L, Total Counted Not Reportable 12/02/18 05:55: Sodium 137, Potassium 4.6, Chloride 103, Carbon Dioxide 26.0, Anion Gap 8, BUN 24 H, Creatinine 1.29, Estim Creat Clear Calc 53.76, Est GFR (MDRD) Af Amer 71, Est GFR (MDRD) Non-Af 59 L, BUN/Creatinine Ratio 18.6, Glucose 211 H, Calcium 8.9 12/02/18 06:33: POC Glucose 230 H Diagnostic Data Chest X-Ray 12/01/18 17:00 IMPRESSION: Mild pulmonary vascular prominence without samara edema. Electronically Signed: Warner Barroso, at 17:15 EDT Tel , Service support , Current Medications Acetaminophen (Tylenol) 650 mg PO Q6H PRN PRN PRN Reason: Mild pain 1-3/Temp > 100.7 F Albuterol Sulfate (Ventolin Aerosols) 2.5 mg INHALATION Q2H PRN PRN PRN Reason: SHORTNESS OF BREATH Albuterol/Ipratropium (Duoneb) 3 ml INHALATION Q4H.RT [facility] Last Admin: 12/02/18 07:35 Dose: 3 ml Allopurinol (Zyloprim) 300 mg PO DAILY [facility] Last Admin: 12/02/18 09:03 Dose: 300 mg Aspirin (Ecotrin) 325 mg PO DAILY@0800 [facility] Last Admin: 12/02/18 09:03 Dose: 325 mg Clopidogrel Bisulfate (Plavix) 75 mg PO DAILY [facility] Last Admin: 12/02/18 09:02 Dose: 75 mg Dextrose (D50w Syringe) 0 gm IV X1 PRN; Protocol PRN Reason: Hypoglycemia Furosemide (Lasix) 40 mg IV BID@1000,1800 [facility] Stop: 12/03/18 10:01 Last Admin: 12/02/18 09:16 Dose: Not Given Glucagon () 1 mg IM .X1 PRN PRN Reason: Hypoglycemia Guaifenesin (Mucinex) 1,200 mg PO BID [facility] Last Admin: 12/02/18 09:01 Dose: 1,200 mg Heparin Sodium (Porcine) (Heparin Na) 5,000 unit SC Q8 [facility] Last Admin: 12/02/18 05:50 Dose: 5,000 unit Levofloxacin (Levaquin Iv) 500 mg in 100 mls @ 100 mls/hr IV Q24 [facility] Last Admin: 12/02/18 09:17 Dose: 100 mls/hr Sodium Chloride () 1,000 mls @ 75 mls/hr IV .[id number] [facility] Stop: 12/02/18 23:49 Last Admin: 12/02/18 09:10 Dose: 75 mls/hr Insulin Human Lispro (Humalog Kwikpen (Bkc)) 0 unit SQ ACHS [facility]; Protocol Last Admin: 12/02/18 06:34 Dose: 3 u Isosorbide Mononitrate (Imdur) 30 mg PO DAILY [facility] Last Admin: 12/02/18 09:01 Dose: 30 mg Lisinopril (Zestril) 2.5 mg PO DAILY [facility] Last Admin: 12/02/18 09:17 Dose: Not Given Methylprednisolone (Solu-Medrol) 40 mg IV Q8 [facility] Last Admin: 12/02/18 05:50 Dose: 40 mg Metoprolol Succinate (Toprol Xl (Beta Sina)) 100 mg PO DAILY [facility] Last Admin: 12/02/18 09:16 Dose: Not Given Nicotine (Nicoderm Cq (Pbkc)) 21 mg TRANSDERM. DAILY [facility] Last Admin: 12/02/18 09:01 Dose: 21 mg Ondansetron HCl (Zofran) 4 mg IV Q8H PRN PRN PRN Reason: NAUSEA/VOMITING Oxycodone HCl (Oxyir) 5 - 10 mg PO Q4H PRN PRN PRN Reason: Moderate Pain (pain scale 4-5) Last Admin: 12/02/18 09:25 Dose: 10 mg Pantoprazole Sodium (Protonix) 40 mg PO DAILY [facility] Last Admin: 12/02/18 09:02 Dose: 40 mg Rosuvastatin Calcium (Crestor) 40 mg PO QHS [facility] Last Admin: 12/01/18 21:01 Dose: 40 mg Sodium Chloride () 5 - 15 ml IV UD PRN PRN Reason: SALINE FLUSH Last Admin: 12/02/18 09:17 Dose: 10 ml Spironolactone (Aldactone) 25 mg PO DAILY [facility] Last Admin: 12/02/18 09:01 Dose: 25 mg Medical Necessity - Tobacco Use Smoking Status: Current some day smoker Tobacco Use: Cigarettes Assessment/Plan 68 y/o male admitted with a complaint of shortness of breath 1. Acute hypoxic respiratory insufficiency due to COPD exacerbation still on 2L of oxygen does have some wheezing in all lung bui CXR showed mild pulmonary vascular congestion on IV solumderol and breathing treatments on IV levaquin incentive spirometry and chest physiotherapy titrate oxygen to maintain sats>92% 2. Acute COPD exacerbation: as under 1 3. Chronic HFrEF with ischemic cardiomyopathy BNP was 171 on admission, but his BNP has been chronically elevated since 2016 continue diuresis and continue metoprolol and lisinopril 4. Diabetes mellitus type 2: ISS. Accuchecks ACHS. is diet controlled at home 5. hypertension: controlled. ON metoprolol and lisinopril 6. CKD 3: Cr is 1.29, which is around his baseline. 7. History of V tach s/p ICD: stable 8. Chronic back pain: on percocet as needed\ DVT prophylaxis: SCDs Code Visit Inpatient E&M: 77223 Subs Hosp L3
--- NOTE | 2018-12-02 10:54 | CASEMGMT ---
RN CM Assessment Presentation: COPD exacerbation/CHF Intro role of CM and purpose of RN CM assessment. Demographics, PCP and Pharmacy verified. PCP: Dr. Juan De La Vega III Specialists: Dr. Carlos Pop, pulmonology; Dr. Inman, cardiology Preferred Pharmacy: [facility] Insurance: [facility] D[employer] COMP HMO Prescription Benefit: yes, denies difficulty with coverage for prescriptions LNOK: Living Arrangements: Lives with in 2 story apt. Bedroom, bath on second floor. Independent in ADL's. Ambulates independently for limited distances. Transportation: States he is not driving for now, but his is able to provide transportation. DME: Nebulizer, shower chair, walker, medical alert and WC available if needed. -oxygen weaned in hospital to RA. [facility]: [facility]- called to notify of pt admission. Pt had Skilled RN services only. PH: [phone] FX: [phone] Patient DC goals: Home DC PLAN: Anticipate home on discharge. Frankie JOHNSONN RN ACM
--- NOTE | 2018-12-02 10:59 | PN_ITS ---
Subjective: Patient seen and examined. He was admitted with a complaint of shortness of breath and is been managed for acute COPD exacerbation. As of breath is a bit better than when he came in. He initially could not expectorate his sputum but is now able to cough it up. He could not tell the color of the sputum. His does admit to some wheezing but denies any chest pain or palpitations, dizziness, diarrhea vomiting. Review of systems otherwise negative. Labs and vitals reviewed. Vitals/I&O's: Vital Signs Temp Pulse Resp BP Pulse Ox 98.8 F 70 16 99/44 L 93 12/02/18 09:00 12/02/18 09:00 12/02/18 09:00 12/02/18 09:00 12/02/18 09:00 Oxygen Flow Rate (L/min) 2 Oxygen Delivery Method Room Air Weight: 211 lb 3.2 oz Body Mass Index (BMI) 32.1 Intake and Output for Last 24 Hours 11/30/18 12/01/18 12/02/18 23:59 23:59 23:59 Intake Total 611 / 611 Balance 611 / 611 General: Alert, Oriented x3, Cooperative, No apparent distress HEENT: Atraumatic, PERRLA, EOMI, Normocephalic Oral: Moist Mucosa Neck: Supple, No JVD, Negative Carotid Bruits Lungs: Wheezes, - - decreased breath sounds bibasally, with moderate wheezes in all lung bui, and no crackles.saturating well on 2L of oxygen Cardiovascular: Regular rate, Regular Rhythm, Normal S1, Normal S2, No murmurs Abdomen: Bowel Sounds Present, Soft, Non Tender, Non-Distended, No Hepato- splenomegaly Extremities: No clubbing, No cyanosis, No edema, Capillary Refill Less than 3 Seconds Skin: No rashes, No breakdown Musculoskeletal: No Tenderness to Palpation of Joints or Extremities Lymphatic: No Cervical, Supraclavicular, or Inguinal Adenopathy Neurological: Cranial nerves II-XII grossly intact, Neuro grossly intact, Motor Exam 5/5 strength throughout Psych/Mental Status: Normal Affect, Appropriate, Alert and oriented to time, place, person, mood and affect Microbiology Past 72 Hours 12/02/18 02:15 Sputum, Expectorated/Coughed Gram Stain - Preliminary Laboratory Results 12/01/18 17:15: WBC 9.1, RBC 4.36 L, Hgb 13.0, Hct 39.9 L, MCV 91.5, MCH 29.8, MCHC 32.6, RDW 15.0 H, RDW Differential 49.3 H, Plt Count 279, MPV 9.2, Immature Gran % (Auto) 0.300, Neut % (Auto) 63.5, Lymph % (Auto) 21.5, [place] % (Auto) 11.8 H, Eos % (Auto) 2.7, Baso % (Auto) 0.2, Absolute Neuts (auto) 5.8, Absolute Lymphs (auto) 1.96, Total Counted Not Reportable 12/01/18 17:15: Sodium 137, Potassium 4.2, Chloride 103, Carbon Dioxide 29.0, Anion Gap 5, BUN 21 H, Creatinine 1.37 H, Estim Creat Clear Calc 50.62, Est GFR (MDRD) Af Amer 67, Est GFR (MDRD) Non-Af 55 L, BUN/Creatinine Ratio 15.3, Glucose 132 H, Calcium 8.8, Troponin I 0.035 12/01/18 17:15: B-Natriuretic Peptide 171.0 H 12/01/18 20:42: Troponin I < 0.015 12/01/18 21:09: POC Glucose 220 H 12/01/18 23:00: Troponin I 0.017 12/02/18 05:55: WBC 4.7, RBC 4.44 L, Hgb 13.2, Hct 40.2, MCV 90.5, MCH 29.7, MCHC 32.8, RDW 14.6, RDW Differential 48.0 H, Plt Count 272, MPV 9.5, Immature Gran % (Auto) 0.000, Neut % (Auto) 84.3 H, Lymph % (Auto) 13.8 L, [place] % (Auto) 1.9, Eos % (Auto) 0.0, Baso % (Auto) 0.0, Absolute Neuts (auto) 4.0, Absolute Lymphs (auto) 0.65 L, Total Counted Not Reportable 12/02/18 05:55: Sodium 137, Potassium 4.6, Chloride 103, Carbon Dioxide 26.0, Anion Gap 8, BUN 24 H, Creatinine 1.29, Estim Creat Clear Calc 53.76, Est GFR (MDRD) Af Amer 71, Est GFR (MDRD) Non-Af 59 L, BUN/Creatinine Ratio 18.6, Glucose 211 H, Calcium 8.9 12/02/18 06:33: POC Glucose 230 H Diagnostic Data Chest X-Ray 12/01/18 17:00 IMPRESSION: Mild pulmonary vascular prominence without samara edema. Electronically Signed: Warner Barroso, at 17:15 EDT Tel , Service support , Current Medications Acetaminophen (Tylenol) 650 mg PO Q6H PRN PRN PRN Reason: Mild pain 1-3/Temp > 100.7 F Albuterol Sulfate (Ventolin Aerosols) 2.5 mg INHALATION Q2H PRN PRN PRN Reason: SHORTNESS OF BREATH Albuterol/Ipratropium (Duoneb) 3 ml INHALATION Q4H.RT [facility] Last Admin: 12/02/18 07:35 Dose: 3 ml Allopurinol (Zyloprim) 300 mg PO DAILY [facility] Last Admin: 12/02/18 09:03 Dose: 300 mg Aspirin (Ecotrin) 325 mg PO DAILY@0800 [facility] Last Admin: 12/02/18 09:03 Dose: 325 mg Clopidogrel Bisulfate (Plavix) 75 mg PO DAILY [facility] Last Admin: 12/02/18 09:02 Dose: 75 mg Dextrose (D50w Syringe) 0 gm IV X1 PRN; Protocol PRN Reason: Hypoglycemia Furosemide (Lasix) 40 mg IV BID@1000,1800 [facility] Stop: 12/03/18 10:01 Last Admin: 12/02/18 09:16 Dose: Not Given Glucagon () 1 mg IM .X1 PRN PRN Reason: Hypoglycemia Guaifenesin (Mucinex) 1,200 mg PO BID [facility] Last Admin: 12/02/18 09:01 Dose: 1,200 mg Heparin Sodium (Porcine) (Heparin Na) 5,000 unit SC Q8 [facility] Last Admin: 12/02/18 05:50 Dose: 5,000 unit Levofloxacin (Levaquin Iv) 500 mg in 100 mls @ 100 mls/hr IV Q24 [facility] Last Admin: 12/02/18 09:17 Dose: 100 mls/hr Sodium Chloride () 1,000 mls @ 75 mls/hr IV .[id number] [facility] Stop: 12/02/18 23:49 Last Admin: 12/02/18 09:10 Dose: 75 mls/hr Insulin Human Lispro (Humalog Kwikpen (Bkc)) 0 unit SQ ACHS [facility]; Protocol Last Admin: 12/02/18 06:34 Dose: 3 u Isosorbide Mononitrate (Imdur) 30 mg PO DAILY [facility] Last Admin: 12/02/18 09:01 Dose: 30 mg Lisinopril (Zestril) 2.5 mg PO DAILY [facility] Last Admin: 12/02/18 09:17 Dose: Not Given Methylprednisolone (Solu-Medrol) 40 mg IV Q8 [facility] Last Admin: 12/02/18 05:50 Dose: 40 mg Metoprolol Succinate (Toprol Xl (Beta Sina)) 100 mg PO DAILY [facility] Last Admin: 12/02/18 09:16 Dose: Not Given Nicotine (Nicoderm Cq (Pbkc)) 21 mg TRANSDERM. DAILY [facility] Last Admin: 12/02/18 09:01 Dose: 21 mg Ondansetron HCl (Zofran) 4 mg IV Q8H PRN PRN PRN Reason: NAUSEA/VOMITING Oxycodone HCl (Oxyir) 5 - 10 mg PO Q4H PRN PRN PRN Reason: Moderate Pain (pain scale 4-5) Last Admin: 12/02/18 09:25 Dose: 10 mg Pantoprazole Sodium (Protonix) 40 mg PO DAILY [facility] Last Admin: 12/02/18 09:02 Dose: 40 mg Rosuvastatin Calcium (Crestor) 40 mg PO QHS [facility] Last Admin: 12/01/18 21:01 Dose: 40 mg Sodium Chloride () 5 - 15 ml IV UD PRN PRN Reason: SALINE FLUSH Last Admin: 12/02/18 09:17 Dose: 10 ml Spironolactone (Aldactone) 25 mg PO DAILY [facility] Last Admin: 12/02/18 09:01 Dose: 25 mg Medical Necessity - Tobacco Use Smoking Status: Current some day smoker Tobacco Use: Cigarettes Assessment/Plan 68 y/o male admitted with a complaint of shortness of breath 1. Acute hypoxic respiratory insufficiency due to COPD exacerbation * still on 2L of oxygen * does have some wheezing in all lung bui * CXR showed mild pulmonary vascular congestion * on IV solumderol and breathing treatments * on IV levaquin * incentive spirometry and chest physiotherapy * titrate oxygen to maintain sats>92% * 2. Acute COPD exacerbation: as under 1 3. Chronic HFrEF with ischemic cardiomyopathy * BNP was 171 on admission, but his BNP has been chronically elevated since 2016 * continue diuresis and continue metoprolol and lisinopril * 4. Diabetes mellitus type 2: ISS. [place] ACHS. is diet controlled at home 5. hypertension: controlled. ON metoprolol and lisinopril 6. CKD 3: Cr is 1.29, which is around his baseline. 7. History of V tach s/p ICD: stable 8. Chronic back pain: on percocet as needed\ DVT prophylaxis: SCDs Code Visit Inpatient E&M: 15645 Subs Hosp L3
[2018-12-02 12:06] LABS: Bedside Glucose 217 mg/dL (70-110)
[2018-12-02 16:56] LABS: Bedside Glucose 212 mg/dL (70-110)
[2018-12-02] MEDS: Furosemide 40 MG/4 ML Vial IV (17:31)
[2018-12-02] MEDS: Rosuvastatin 20 MG Tablet 40 MG PO (22:24)
[2018-12-02 22:40] LABS: Bedside Glucose 216 mg/dL (70-110)
[2018-12-03] VITALS (11 sets, daily range): BP systolic 94–128; BP diastolic 45–55; PULSE 71–120; RESP 16–20; TEMP 36.5–36.6; O2SAT 90–93
[2018-12-03] MEDS: oxyCODONE 5 MG Tablet PO ×2 (03:47→09:04)
[2018-12-03] MEDS: Ipratropium/Albuterol Sulfate 3 ML AMPUL.NEB INHALATION ×2 (05:14→11:21)
[2018-12-03] MEDS: Heparin Injection (Vial) 5,000 UNIT/ML VIAL 5000 UNIT SC (06:01)
[2018-12-03] MEDS: 0.9% NaCl Peripheral Flush Adult/Peds IV ×2 (06:01→09:00)
[2018-12-03] MEDS: Insulin Lispro 100 UNIT/ML INSULN.PEN SQ ×2 (06:53→12:00)
[2018-12-03 07:10] LABS: Bedside Glucose 271 mg/dL (70-110)
[2018-12-03 07:20] LABS: Absolute Lymphocyte Count 0.61 X10^3/ul (0.83-4.51); Absolute Neutrophil Count 10.4 X10^3/uL (2.0-7.7); Hematocrit 37.7 % (40-54); Hemoglobin 12.3 g/dl (13.0-16.5); Lymphocyte # 0.61 X10^3/ul (4.0); Lymphocyte % 5.3 % (19-41); Mean Corp Hgb Conc 32.6 g/gl (32-36); Mean Corpuscular Hgb 29.9 pg (27.0-32.0); Mean Corpuscular Volume 91.5 fL (80-94); Mean Platelet Vol. 9.3 fl (6.2-12.0); Monocyte# 0.56 X10^3/uL; Monocyte% 4.8 % (0-10); Neutrophil # 10.42 X10^3/uL (2.7-7.7); Neutrophil % 89.8 % (47-70); Platelet Count 262 K/mm3 (150-450); RBC Distribution Width CV 15.1 % (11.6-14.6); RBC Distribution Width SD 50.8 fl (35.1-43.9); Red Blood Count 4.12 M/mm3 (4.6-6.2); White Blood Count 11.6 K/mm3 (4.4-11.0)
[2018-12-03 07:22] LABS: POSITIVE COUNT NO; POSITIVE DIFFERENTIAL NO; POSITIVE MORPHOLOGY NO
[2018-12-03 07:33] LABS: Anion Gap 7 (5-15); BUN 34 mg/dL (7-18); BUN/Creat Ratio 23.1 RATIO (10-20); Calcium,Total 8.7 mg/dL (8.5-10.1); Chloride 103 mmol/L (98-107); Creatinine, Serum 1.47 mg/dL (0.70-1.30); EST Glomerular Filtration Rate 51 mL/min (>60); Est Glom Filt Rate - Afr Amer 61 mL/min (>60); Estimated Creatinine Clearance 47.18 ml/min; Glucose 261 mg/dL (74-106); Potassium 4.2 mmol/L (3.5-5.1); Sodium Level 135 mmol/L (136-145)
[2018-12-03] MEDS: Albuterol 2.5 MG/3 ML VIAL.NEB. INHALATION (07:48)
[2018-12-03] MEDS: Isosorbide Mononitrate 30 MG Tablet PO (08:58)
[2018-12-03] MEDS: Allopurinol 300 MG Tablet PO (08:58)
[2018-12-03] MEDS: Spironolactone 25 MG Tablet PO (08:59)
[2018-12-03] MEDS: guaiFENesin 1,200 MG Tablet 1200 MG PO (08:59)
[2018-12-03] MEDS: Pantoprazole Sodium 40 MG Tablet PO (08:59)
[2018-12-03] MEDS: Aspirin E.C. 325 MG Tablet PO (08:59)
[2018-12-03] MEDS: Clopidogrel Bisulfate 75 MG Tablet PO (09:00)
[2018-12-03] MEDS: levoFLOXacin IV 500 MG/100 ML BAG 100 MG IV (09:11)
--- NOTE | 2018-12-03 10:14 | CASEMGMT ---
Patient is active with [facility]. SW called [facility] and his worker is Catina ([phone]). The only current service he has through [employer] is an emergency response button. Green sheet on chart. Alyssa JOHNSON MSW
--- NOTE | 2018-12-03 10:22 | DCINST_ITS ---
You will use the following diet at home:: No restrictions Your food should be the consistency of: Regular Your liquids should be the consistency of: Regular/Thin Discharge Activity: Return to Normal Activity Call your doctor if you observe: Fever of 101 or Higher, Shortness of breath Allergies/Adverse Reactions: Allergies chlorpromazine HCl [From Thorazine] Allergy (Severe, Verified 12/01/18 16:41) Hives PER PATIENT tramadol HCl [From Ultram] Allergy (Severe, Verified 12/01/18 16:41) Hives PER PATIENT codeine Allergy (Intermediate, Verified 12/01/18 16:41) Hives atorvastatin Adverse Reaction (Intermediate, Verified 12/01/18 16:41) Other LEG PAIN/CRAMPS naproxen Adverse Reaction (Verified 12/01/18 16:41) Upset Stomach promethazine [From Phenergan] Adverse Reaction (Verified 12/01/18 16:41) Other CONFUSION Medications to take at Discharge Isosorbide Mononitrate [Imdur] 30 mg PO DAILY 02/18/17 Albuterol Aerosols [Ventolin Aerosols] 2.5 mg INHALATION Q4H PRN PRN 02/23/17 albuterol sulfate HFA 90 mcg/actuation aerosol inhaler 2 puff INHALATION Q4H PRN g 07/31/17 Pantoprazole Sodium [Protonix] 40 mg PO DAILY 11/15/17 umeclidinium 62.5 mcg-vilanterol 25 mcg/actuation powdr for inhalation 1 inh INHALATION DAILY #60 ea MDD copd 02/05/18 Lisinopril [Zestril] 2.5 mg PO DAILY 05/21/18 Rosuvastatin Calcium [Crestor] 40 mg PO DAILY 06/16/18 Spironolactone 25 mg PO DAILY 06/16/18 Clopidogrel Bisulfate [Plavix] 75 mg PO DAILY 09/01/18 Furosemide 40 mg PO DAILY 09/01/18 Allopurinol 300 mg PO DAILY 09/20/18 Aspirin E.C. [Ecotrin] 325 mg PO DAILY@0800 09/20/18 Oxycodone HCl/Acetaminophen [Percocet 7.5-325 mg Tablet] 1 tab PO 4X/DAY PRN 10/06/18 Metoprolol Succinate 100 mg PO DAILY 12/01/18 Nicotine [Nicoderm Cq] 21 mg TRANSDERM. DAILY 12/01/18 Nitroglycerin 0.4 mg SL PRN PRN 12/01/18 Acetaminophen [Tylenol Tablet] 650 mg PO Q6H PRN PRN tablet 12/03/18 Guaifenesin [Mucinex] 1,200 mg PO BID #10 tablet 12/03/18 Nicotine [Nicoderm Cq] 21 mg TRANSDERM. DAILY patch 12/03/18 Prednisone [Deltasone] 2 tab PO DAILY #10 tablet 12/03/18 The following prescriptions were given: Prednisone [Deltasone] 2 tab PO DAILY #10 tablet Guaifenesin [Mucinex] 1,200 mg PO BID #10 tablet Primary Care Physician: Juan De La Vega III, MD [Primary Care Provider] - Within 2 Weeks Test Results: Test results from this visit will be discussed in further detail at your follow- up appointment, if applicable. Please Follow Up With: Carlos Pop DO When: 02/02/19 Proposed Discharge Date: 12/03/18
--- NOTE | 2018-12-03 10:22 | PCM.DC.SUM ---
Discharge Date and Diagnosis Date of Admission: 12/01/18 Date of Discharge: 12/03/18 - Primary Discharge Diagnosis acute exacerbation of COPD acute hypoxic respiratory insufficiency - Secondary Discharge Diagnosis Chronic Problems (Last Updated 12/01/18 @ 18:51 by Kana Khan MD) COPD (chronic obstructive pulmonary disease) (Chronic) Obesity (BMI 30.0-34.9) (Chronic) Nicotine dependence (Chronic) Gout (Chronic) Degenerative cervical disc (Chronic) Chronic back pain (Chronic) Presence of automatic implantable cardioverter-defibrillator (Chronic) H/O coronary artery bypass surgery (Chronic ~2008) HUMPHREY-LAD, SVG-D1, SVG-OM Chronic renal failure, stage 3 (moderate) (Chronic) Chronic systolic (congestive) heart failure (Chronic) Stented coronary artery (Chronic ~12/2016) has had 7 stents as of 06/15/17 Ischemic cardiomyopathy (Chronic) 25% ejection fraction in November 2016 V-tach (Chronic) has an AICD Benign essential hypertension (Chronic) Gastroesophageal reflux disease (Chronic) Hyperlipidemia (Chronic) Type 2 diabetes mellitus (Chronic) Morbid obesity (Chronic) CAD (coronary artery disease) (Chronic) Hospital Course and Treatment Imaging Results: Clinical Impression(s) from Imaging Studies Chest X-Ray 12/01/18 17:00 IMPRESSION: Mild pulmonary vascular prominence without samara edema. Electronically Signed: Warner Barroso, at 17:15 EDT Tel , Service support , None Operations: None Procedures: None Summary of Care Provided: The patient is a 68 year old M presents with shortness of breath. Patient been feeling ill for a few days prior. Denied any recent upper respiratory infections and denies any history of seasonal allergies. Patient was diagnosed with acute COPD exacerbation started on Solu-Medrol, Levaquin and bronchodilators. Today, the patient is feeling better and has no audible wheezes. Patient will be transitioned over to prednisone 40 mg daily for 5 days. Patient already has bronchodilators at home. Chest x-ray was negative for pneumonia so will not continue with antibiotics moving forward. Patient did receive 3 days of IV Levaquin while he was here. Patient will be discharged home in stable condition, but prior to discharge, he will have an amatory pulse ox to see if he may require oxygen. [] - Physical Exam General: Alert, No apparent distress HEENT: Atraumatic, Normocephalic Oral: Moist Mucosa, No Gingival or Mucosal Lesions/ Ulcerations Neck: No Nodes, Thyroid Normal Size and Texture Lungs: Clear to auscultation, Normal air movement, No rhonchi, No wheeze Cardiovascular: Regular rate, Regular Rhythm, Normal S1, Normal S2 Abdomen: Bowel Sounds Present, Soft, Non Tender, Non-Distended Vital Signs Temp Pulse Resp BP Pulse Ox 36.6 C 79 20 H 113/45 L 91 12/03/18 08:33 12/03/18 08:33 12/03/18 08:33 12/03/18 08:33 12/03/18 08:33 Oxygen Flow Rate (L/min) 2 Oxygen Delivery Method Room Air Weight: 95.9 kg Body Mass Index (BMI) 32.1 Intake and Output for Last 24 Hours 12/01/18 12/02/18 12/03/18 23:59 23:59 23:59 Intake Total 2766 / 2766 240 / 240 Output Total 2150 / 2150 Balance 616 / 616 240 / 240 Microbiology Past 72 Hours 12/02/18 13:50 Respiratory Panel (PCR) - Final Mucosa - Nasopharyngeal 12/02/18 02:15 Gram Stain - Final Sputum, Expectorated/Coughed Laboratory Tests Past 24 Hrs 12/03/18 12/03/18 06:53 06:53 WBC 11.6 H RBC 4.12 L Hgb 12.3 L Hct 37.7 L MCV 91.5 MCH 29.9 MCHC 32.6 RDW 15.1 H RDW Differential 50.8 H Plt Count 262 MPV 9.3 Immature Gran % (Auto) 0.100 Neut % (Auto) 89.8 H Lymph % (Auto) 5.3 L [place] % (Auto) 4.8 Eos % (Auto) 0.0 Baso % (Auto) 0.0 Absolute Neuts (auto) 10.4 H Absolute Lymphs (auto) 0.61 L Total Counted Not Reportable Sodium 135 L Potassium 4.2 Chloride 103 Carbon Dioxide 25.0 Anion Gap 7 BUN 34 H Creatinine 1.47 H Estim Creat Clear Calc 47.18 Est GFR (MDRD) Af Amer 61 Est GFR (MDRD) Non-Af 51 L BUN/Creatinine Ratio 23.1 H Glucose 261 H Calcium 8.7 POC Glucose 12/03/18 12/02/18 12/02/18 06:52 21:22 16:49 POC Glucose 271 H 216 H 212 H 12/02/18 11:56 POC Glucose 217 H Discharge Diet: Low fat/ Low Cholesterol, 6 Cup Fluid Restriction, 2000 mg Sodium Diet Discharge Activity: Return to Normal Activity Call your doctor if you observe: Fever of 101 or Higher, Shortness of breath Home Medications: Medications to take at Discharge Isosorbide Mononitrate [Imdur] 30 mg PO DAILY 02/18/17 Albuterol Aerosols [Ventolin Aerosols] 2.5 mg INHALATION Q4H PRN PRN 02/23/17 albuterol sulfate HFA 90 mcg/actuation aerosol inhaler 2 puff INHALATION Q4H PRN g 07/31/17 Pantoprazole Sodium [Protonix] 40 mg PO DAILY 11/15/17 umeclidinium 62.5 mcg-vilanterol 25 mcg/actuation powdr for inhalation 1 inh INHALATION DAILY #60 ea MDD copd 02/05/18 Lisinopril [Zestril] 2.5 mg PO DAILY 05/21/18 Rosuvastatin Calcium [Crestor] 40 mg PO DAILY 06/16/18 Spironolactone 25 mg PO DAILY 06/16/18 Clopidogrel Bisulfate [Plavix] 75 mg PO DAILY 09/01/18 Furosemide 40 mg PO DAILY 09/01/18 Allopurinol 300 mg PO DAILY 09/20/18 Aspirin E.C. [Ecotrin] 325 mg PO DAILY@0800 09/20/18 Oxycodone HCl/Acetaminophen [Percocet 7.5-325 mg Tablet] 1 tab PO 4X/DAY PRN 10/06/18 Metoprolol Succinate 100 mg PO DAILY 12/01/18 Nicotine [Nicoderm Cq] 21 mg TRANSDERM. DAILY 12/01/18 Nitroglycerin 0.4 mg SL PRN PRN 12/01/18 Acetaminophen [Tylenol Tablet] 650 mg PO Q6H PRN PRN tablet 12/03/18 Guaifenesin [Mucinex] 1,200 mg PO BID #10 tablet 12/03/18 Nicotine [Nicoderm Cq] 21 mg TRANSDERM. DAILY patch 12/03/18 Prednisone [Deltasone] 2 tab PO DAILY #10 tablet 12/03/18 Following Prescrptions Were Given to Patient: Prednisone [Deltasone] 2 tab PO DAILY #10 tablet Guaifenesin [Mucinex] 1,200 mg PO BID #10 tablet Primary Care Physician: Samara De La Vega III, MD [Primary Care Provider] - Within 2 Weeks Please Follow Up With: Carlos Pop DO When: 02/02/19 Disposition: Home Minutes spent on discharge:: 32 Patient Condition:: Good Medical Necessity - Tobacco Use Smoking Status: Current some day smoker Tobacco Use: Cigarettes Meaningful Use Info Meaningful Use Diagnoses (Choose all that apply): CHF - CHF BEHZAD/ARB ordered at discharge?: Yes Documented LVEF (%): 35 Code Visit Inpatient E&M: 33244 Disch Hosp
--- NOTE | 2018-12-03 10:44 | CASEMGMT ---
Resumption of care order, D/C instructions/summary faxed to [facility] at this time. Call to Brittany at [facility] to notify, voices understanding at this time. Doug HADLEY CM
--- NOTE | 2018-12-03 10:57 | CASEMGMT ---
Patient is ready for discharge today. DENYS faxed d/c instructions to [facility]. Alyssa JOHNSON MSW
[2018-12-03 12:10] LABS: Bedside Glucose 238 mg/dL (70-110)
--- NOTE | 2018-12-06 14:46 | CASEMGMT ---
LEONIE [facility] DC PHONE CALL DC DATE: 12/03/18 DC Disposition: Home LACE/STRATA: 14 Intro role of CM to pt's . Pt was speaking with his PCP at time of call. Per , pt is doing well and is checking with his physician re: questions. Frankie SAUCEDO RN ACM.
== END 2018-12-03 12:30 | disposition home or self-care (01) | DRG 191 ==
LOC: ED 17:45 → PCU 19:10
PROVIDERS: Student in an Organized Health Care Education/Training Program; Admitting Provider Hospitalist; Emergency Provider Emergency Medicine; Family Provider Family Medicine; PCP Family Medicine
DX: J44.1 Chronic obstructive pulmonary disease with (acute) exacerbation (principal); I13.0 Hypertensive heart and chronic kidney disease with heart failure and stage 1 through stage 4 chronic kidney disease, or unspecified chronic kidney disease; I50.22 Chronic systolic (congestive) heart failure; I25.10 Atherosclerotic heart disease of native coronary artery without angina pectoris; R06.89 Other abnormalities of breathing; R09.02 Hypoxemia; E66.9 Obesity, unspecified; M10.9 Gout, unspecified; F17.210 Nicotine dependence, cigarettes, uncomplicated; G89.29 Other chronic pain; M54.9 Dorsalgia, unspecified; E78.5 Hyperlipidemia, unspecified; K21.9 Gastro-esophageal reflux disease without esophagitis; Z95.810 Presence of automatic (implantable) cardiac defibrillator; Z68.32 Body mass index [BMI] 32.0-32.9, adult; Z95.5 Presence of coronary angioplasty implant and graft; Z95.1 Presence of aortocoronary bypass graft; E11.22 Type 2 diabetes mellitus with diabetic chronic kidney disease; N18.3 Chronic kidney disease, stage 3 (moderate); I25.5 Ischemic cardiomyopathy
CPT/HCPCS: 36415; 71045; 80048; 82962; 83880; 84484; 85025; 87070; 87205; 87633; 93005; 94640; 94667; 94668; 97161; 99285; 99406; J7030; J7040; A4216; J1940

== ENCOUNTER 2019-01-01 12:52 | Emergency (ER) | payer MEDICARE, MEDICAID, SELFPAY ==
[2018-12-24 13:41] VITALS: BMI 31.6
[2019-01-01 12:52] VITALS: BP 99/55; PULSE 76; RESP 16; TEMP 36.9; O2SAT 98; BMI 32.7
--- NOTE | 2019-01-01 13:45 | RAD_ITS ---
STUDY: X-RAY - LUMBAR SPINE REASON FOR EXAM: Male, 68 years old. Trauma TECHNIQUE: 3 view(s) of the lumbar spine were obtained. COMPARISON: None FINDINGS: Degenerative changes of the lumbar spine. Multilevel neural foraminal narrowing and disc space narrowing. Mild anterior wedging of the lower thoracic and upper lumbar vertebra. Endplate degenerative changes and hypertrophy of the spinous processes. Multilevel facet arthrosis. Minimal levoconvex lumbar curvature. Degenerative changes of the sacroiliac joints. Vascular calcifications are identified. IMPRESSION: Lumbar spondylotic changes with chronic wedging of the thoracolumbar vertebra. No definite evidence for acute lumbar spine fracture seen Electronically Signed: Ismael Marroquin, at 14:38 EDT Tel , Service support , RAD/Lumbar Spine 2 or 3 Views
--- NOTE | 2019-01-01 13:45 | RAD_ITS ---
STUDY: X-RAY - PELVIS AND LEFT HIP REASON FOR EXAM: Male, 68 years old. Trauma. Hip pain and pelvic pain TECHNIQUE: Single view of the pelvis and 2 views of the left hip were obtained views of the pelvis and hip. COMPARISON: None. FINDINGS: No definite evidence for acute fractures or dislocation. No evidence for disruption of the bony pelvic ring. Vascular calcifications are seen. No evidence for femoral neck fractures. Degenerative changes in the hip joints. IMPRESSION: No evidence for acute left-sided femoral neck fractures. No evidence for disruption of the bony pelvic ring seen. Electronically Signed: Ismael Marroquin, at 14:35 EDT Tel , Service support , RAD/HIP, UNI W/ Pelvis 2-3 Views
--- NOTE | 2019-01-01 13:58 | ED.VISSUMM ---
- ER Visit Summary Date of Service: 01/01/19 Chief Complaint: Fall History of Present Illness: The patient is a 68 M who states he fell last night due to a curb. States that when he landed he landed on the left hip. He states that 2 people attempted to help him up but they dropped him and he landed on the curb again well with his low back. He has had prior low back pain and surgery. He states he was able to bear weight but painful. Has not gotten better today so he came to the emergency department. Physical Examination: Afebrile vital signs are stable Gen: Well-nourished well-developed laying on his right side Head: Normocephalic atraumatic Eyes: Perrl EOMI ENT: TMs clear no rhinorrhea moist mucous membranes Neck: Supple no lymphadenopathy no JVD nontender CVS: Regular rate rhythm no murmurs normal S1-S2 Respiratory: No distress clear to auscultation bilaterally chest nontender Abdomen: Soft nontender nondistended normal bowel sounds no masses Back: Healed midline lumbar incision. No ecchymosis. Tender to palpation diffusely Extremity: To palpation over the lateral hip. No ecchymosis. He is able to lift his leg up off the bed to get his pants off. Skin: Normal color no rash Neuro: alert orientated ?3 CN II-XII intact normal strength sensation r Psych: Normal affect normal mood Test Results: X-rays of the lumbar spine and hip and pelvis were obtained. These were negative for fracture. Emergency Department Course and Treatment: Patient will be discharged home with supportive care. I will write for Flexeril. OARS report performed. He has Rx for opiates at home. Patient will discontinue the Flexeril if he notes any sedation or confusion. Patient informed nursing that he cannot take Flexeril because it makes him nauseous. He informed them that he should just stay at home and taken a Percocet. Impression: 1. Lower back contusion 2. Left hip contusion This note was generated with [employer] dictation software. It may contain incorrect words, spelling, and punctuation that were not noted in review of the chart prior to signing ED Disposition - Plan for ED Patient: Disposition: Home or Assisted Living Instructions: ED Contusion Back Prescriptions: cycloBENZAPRine HCl [Flexeril] 10 mg PO TID PRN #10 tab PRN Reason: Muscle Spasm Referrals: Juan De La Vega III, MD [Primary Care Provider] - 1 Week if not improving
[2019-01-01 15:06] VITALS: BP 99/76; PULSE 84; RESP 16
== END 2019-01-01 15:06 | disposition home or self-care (01) ==
PROVIDERS: Emergency Provider Emergency Medicine; Family Provider Family Medicine; PCP Family Medicine
DX: S30.0XXA Contusion of lower back and pelvis, initial encounter (principal); S70.02XA Contusion of left hip, initial encounter; M47.816 Spondylosis without myelopathy or radiculopathy, lumbar region; I25.10 Atherosclerotic heart disease of native coronary artery without angina pectoris; J44.9 Chronic obstructive pulmonary disease, unspecified; E11.9 Type 2 diabetes mellitus without complications; G47.33 Obstructive sleep apnea (adult) (pediatric); W10.1XXA Fall (on)(from) sidewalk curb, initial encounter; Y93.9 Activity, unspecified; Y92.480 Sidewalk as the place of occurrence of the external cause; Y99.9 Unspecified external cause status
CPT/HCPCS: 72100; 73502; 99282

== ENCOUNTER 2019-01-11 15:09 | Emergency (ER) | payer MEDICARE, MEDICAID, SELFPAY ==
[2019-01-11 15:11] VITALS: BP 109/71; PULSE 76; PULSE 82; RESP 26; RESP 28; TEMP 36.6; O2SAT 90; O2SAT 95; BMI 32.6
--- NOTE | 2019-01-11 15:35 | EKG12_ITS ---
Test Reason : SOB Blood Pressure : / mmHG Vent. Rate : 070 BPM Atrial Rate : 070 BPM P-R Int : 150 ms QRS Dur : 104 ms QT Int : 418 ms P-R-T Axes : 042 -38 145 degrees QTc Int : 451 ms Normal sinus rhythm Left axis deviation ST & T wave abnormality, consider lateral ischemia Abnormal ECG Confirmed by GERONIMO BLOOM ([id number]), commercial production editor HARINI STONE ([id number]) on 01/17/2019 10:21:00 AM Referred By: HOANG Confirmed By:GERONIMO BLOOM
--- NOTE | 2019-01-11 15:35 | RAD_ITS ---
STUDY: X-RAY CHEST REASON FOR EXAM: Male, 68 years old. SOB cough. TECHNIQUE: Portable chest. COMPARISON: 12/01/2018. FINDINGS: Stable calcified granulomas are noted in the right lung base. Pacemaker is again noted on the left. The lungs are clear and expanded. There is no demonstrated pleural abnormality. Normal size heart. Normal mediastinum and srejio. Normal visualized pulmonary arteries. Normal visualized aortic arch and descending thoracic aorta. Normal visualized thoracic spine. Normal visualized ribs, clavicles, and shoulders. There is no demonstrated abnormality of the visualized soft tissue structures of the upper abdomen. RAD/Chest 1 View (Portable) IMPRESSION: Normal x-ray examination of the chest. Electronically Signed: Paz Gaines MD at 16:30 EDT Tel , Service support ,
--- NOTE | 2019-01-11 15:39 | ED.DCSUM_ITS ---
History of Present Illness Chief Complaint: Shortness of Breath Informant: Patient Onset: Yesterday Narrative: Worsening shortness of breath since yesterday, 1 day of cough prior to that. States nonproductive and cannot clear his sputum. No fevers. History of COPD no home oxygen. Also has history of CHF and coronary disease. Denies any increased leg swelling he is on diuretics. States chest pain with cough. No nausea or vomiting. No diarrhea. Complains of generalized weakness. No urinary symptoms. He amylase with a walker. He comes from home, states lives with his spouse. He states admitted for similar symptoms within the last month. Status post DuoNeb treatment by EMS. Prior similar symptoms: Yes Past Medical History - Allergies and Home Meds Allergies/Adverse Reactions: Allergies chlorpromazine HCl [From Thorazine] Allergy (Severe, Verified 01/11/19 15:10) Hives PER PATIENT tramadol HCl [From Ultram] Allergy (Severe, Verified 01/11/19 15:10) Hives PER PATIENT codeine Allergy (Intermediate, Verified 01/11/19 15:10) Hives atorvastatin Adverse Reaction (Intermediate, Verified 01/11/19 15:10) Other LEG PAIN/CRAMPS cyclobenzaprine [From Flexeril] Adverse Reaction (Verified 01/11/19 15:10) Upset Stomach naproxen Adverse Reaction (Verified 01/11/19 15:10) Upset Stomach promethazine [From Phenergan] Adverse Reaction (Verified 01/11/19 15:10) Other CONFUSION Primary Care Physician: Juan De La Vega III, MD [Primary Care Provider] - Surgical History: angioplasty - stents x10, coronary bypass surgery, - - AICD placement, back surgery x 2, hernia repair Smoking Status: Current every day smoker - Family History Paternal Family History: Family History (Last Reviewed 12/24/18 @ 14:09 by TISH Blankenship) Brother CAD (coronary artery disease) Myocardial infarction Sudden cardiac Mother Cancer Hypertension Father Cancer COPD (chronic obstructive pulmonary disease) Family History: Reports: Cancer, Heart Disease Maternal Family History: Family History (Last Reviewed 12/24/18 @ 14:09 by TISH Blankenship) Brother CAD (coronary artery disease) Myocardial infarction Sudden cardiac Mother Cancer Hypertension Father Cancer COPD (chronic obstructive pulmonary disease) Family History: Reports: - - Patient notes a paternal family history of chronic lung disease, lung cancer with history of tobacco use. Review of Systems General: Denies: Chills, Fever, Sweats Eyes: Denies: Visual changes - bilaterally, Diplopia ENT: Denies: Rhinorrhea, Sore throat Cardiovascular: Reports: Chest pain. Denies: Palpitations Respiratory: Reports: Dyspnea, Cough. Denies: Sputum, Dyspnea on exertion Gastrointestinal: Denies: Abdominal pain, Nausea, Vomiting, Diarrhea, Melena, Hematochezia Genitourinary: Denies: Dysuria, Hematuria, Frequency Musculoskeletal: Denies: Back pain, Extremity Pain Skin: Denies: Rash, Wounds Neurological: Denies: Headache, Weakness, Numbness Physical Exam Vital Signs/Narrative: Vital Signs Temp Pulse Resp BP Pulse Ox 01/11/19 15:11 97.8 F 82 28 H 109/71 90 General: Well nourished, Well developed, - - Speaking in short sentences. Head: Normocephalic, Atraumatic Eyes: Perrl, EOMI ENT: Moist mucous membranes, No rhinorrhea Neck: Supple, Nontender Cardiovascular: Regular rate, Regular rhythm, No murmurs Respiratory: Chest nontender, - - Coarse breath sounds lower lobes, Abdomen: Soft, Nontender, Nondistended, Normal bowel sounds Back: Nontender, Normal Inspection Extremities: Nontender, - - Minimal lower extremity edema. Skin: Normal color, No rash Neurological: Alert, Oriented x3, Cranial nerves II-XII grossly intact, Normal Strength, Normal Sensation Psychological: Normal affect, Normal Mood Diagnostic/Tx/Re-eval Chest X-Ray - ED: 1 View, Read by ED Physician, Read by Radiologist, No Acute Disease Abnormal Lab Results 01/11/19 01/11/19 01/11/19 15:45 15:45 15:45 WBC 9.9 RBC 4.79 Hgb 14.5 Hct 43.6 MCV 91.0 MCH 30.3 MCHC 33.3 RDW 14.3 RDW Differential 47.5 H Plt Count 211 MPV 9.8 Immature Gran % (Auto) 0.200 Neut % (Auto) 68.3 Lymph % (Auto) 21.2 Jennings % (Auto) 9.0 Eos % (Auto) 1.1 Baso % (Auto) 0.2 Absolute Neuts (auto) 6.8 Absolute Lymphs (auto) 2.10 Total Counted Not Reportable Sodium 138 Potassium 4.3 Chloride 104 Carbon Dioxide 27.0 Anion Gap 7 BUN 32 H Creatinine 1.08 Estim Creat Clear Calc 64.21 Est GFR (MDRD) Af Amer 88 Est GFR (MDRD) Non-Af 72 BUN/Creatinine Ratio 29.6 H Glucose 95 Lactic Acid 1.0 Calcium 9.3 Troponin I 0.016 - EKG Initial EKG Interpretation: Sinus Rhythm - Sinus rate of 70, no ST changes. T wave inversions noted on lateral leads of V5 V6 aVL and 1. - Medical Decision Making Patient afebrile, slight tachypnea on arrival. He is not hypoxic. He is placed on oxygen for comfort by nursing. Coarse breath sounds on my initial exam, aerosol treatments lower dose steroids given due to his diabetes. Work-up with EKG labs chest x-ray are normal. His oxygen was turned off, remained stable, he was ambulated on room air went from 92 to 94%. After breathing treatment, respiratory rate did improve. With patient's chronic back pain he was initially ordered for oxycodone 5 mg however per nursing declined due to taking 7 and half milligrams at home. Discussed with patient discharged with outpatient treatment he started on Zithromax. Signs and symptoms discussed return. All questions were answered. ED Disposition - Plan for ED Patient: Disposition: Home or Assisted Living Diagnosis: COPD exacerbation Instructions: Copd Flare Prescriptions: Prednisone [Deltasone] 40 mg PO DAILY #80 tablet Azithromycin [Zithromax] 250 mg PO DAILY #4 tablet Referrals: Juan De La Vega III, MD [Primary Care Provider] - 3-5 Days
[2019-01-11] MEDS: Ipratropium/Albuterol Sulfate 3 ML AMPUL.NEB INHALATION (15:46)
[2019-01-11 15:47] VITALS: PULSE 77; RESP 18
[2019-01-11] MEDS: MethylPREDNISolone 125 MG/2 ML Vial 60 MG IV (15:57)
[2019-01-11 16:17] LABS: Absolute Neutrophil Count 6.8 X10^3/uL (2.0-7.7); Basophil# 0.02 X10^3/uL; Basophil% 0.2 % (0-1); Eosinophil# 0.11 X10^3/uL; Eosinophils% 1.1 % (0-5); Hematocrit 43.6 % (40-54); Hemoglobin 14.5 g/dl (13.0-16.5); Lymphocyte % 21.2 % (19-41); Mean Corp Hgb Conc 33.3 g/gl (32-36); Mean Corpuscular Hgb 30.3 pg (27.0-32.0); Mean Platelet Vol. 9.8 fl (6.2-12.0); Monocyte# 0.89 X10^3/uL; Neutrophil # 6.77 X10^3/uL (2.7-7.7); Neutrophil % 68.3 % (47-70); Platelet Count 211 K/mm3 (150-450); RBC Distribution Width CV 14.3 % (11.6-14.6); RBC Distribution Width SD 47.5 fl (35.1-43.9); Red Blood Count 4.79 M/mm3 (4.6-6.2); White Blood Count 9.9 K/mm3 (4.4-11.0)
[2019-01-11 16:29] LABS: Anion Gap 7 (5-15); BUN 32 mg/dL (7-18); BUN/Creat Ratio 29.6 RATIO (10-20); Calcium,Total 9.3 mg/dL (8.5-10.1); Chloride 104 mmol/L (98-107); Creatinine, Serum 1.08 mg/dL (0.70-1.30); EST Glomerular Filtration Rate 72 mL/min (>60); Est Glom Filt Rate - Afr Amer 88 mL/min (>60); Estimated Creatinine Clearance 64.21 ml/min; Glucose 95 mg/dL (74-106); Potassium 4.3 mmol/L (3.5-5.1); Sodium Level 138 mmol/L (136-145)
[2019-01-11 16:30] LABS: POSITIVE COUNT NO; POSITIVE DIFFERENTIAL NO; POSITIVE MORPHOLOGY NO
[2019-01-11 17:04] VITALS: BP 96/56; PULSE 75; RESP 22; O2SAT 92; O2SAT 94
[2019-01-11 17:24] LABS: BNP,B-Type NATRIURETIC PEPTIDE 92.8 pg/mL (0-100)
--- NOTE | 2019-01-11 17:31 | ED.RN ---
pt wanting to go home. aware and to dc. without second bc
[2019-01-11] MEDS: Azithromycin 250 MG Tablet 500 MG PO (17:35)
== END 2019-01-11 17:35 | disposition home or self-care (01) ==
PROVIDERS: Emergency Provider Emergency Medicine; Family Provider Family Medicine; PCP Family Medicine
DX: J44.1 Chronic obstructive pulmonary disease with (acute) exacerbation (principal); I50.9 Heart failure, unspecified; I25.10 Atherosclerotic heart disease of native coronary artery without angina pectoris; E11.9 Type 2 diabetes mellitus without complications; M54.9 Dorsalgia, unspecified; G89.29 Other chronic pain; Z95.810 Presence of automatic (implantable) cardiac defibrillator; Z79.82 Long term (current) use of aspirin; Z79.02 Long term (current) use of antithrombotics/antiplatelets; Z79.899 Other long term (current) drug therapy; F17.200 Nicotine dependence, unspecified, uncomplicated
CPT/HCPCS: 71045; 80048; 83605; 83880; 84484; 85025; 87040; 93005; 94640; 99285; A4216

== ENCOUNTER 2019-01-20 19:48 | Observation (INO) | payer MEDICARE, MEDICAID, SELFPAY ==
[2019-01-20] VITALS (10 sets, daily range): BP systolic 81–102; BP diastolic 38–66; PULSE 63–78; RESP 11–26; TEMP 36.5–37; O2SAT 93–96; BMI 32.3; BMI 31.3
--- NOTE | 2019-01-20 20:00 | EKG12_ITS ---
Test Reason : NAUSEA Blood Pressure : / mmHG Vent. Rate : 075 BPM Atrial Rate : 075 BPM P-R Int : 156 ms QRS Dur : 100 ms QT Int : 428 ms P-R-T Axes : 054 -23 128 degrees QTc Int : 477 ms Normal sinus rhythm ST & T wave abnormality, consider anterolateral ischemia Prolonged QT Poor R- wave Progression Abnormal ECG Confirmed by BERYL LUNDBERG, MICHELLE ([id number]), supervising editor news reel HARINI STONE ([id number]) on 01/24/2019 2:25:46 PM Referred By: Kana Khan Confirmed By:MICHELLE CORDOBA MD
--- NOTE | 2019-01-20 20:00 | CT_ITS ---
STUDY: CT ABDOMEN AND PELVIS WITHOUT CONTRAST REASON FOR EXAM: Male, 68 years old. Shortness of breath RADIATION DOSAGE (If Supplied By Facility): CTDIvol = ( 13.27 ) mGy, DLP = ( 616.77 ) mGycm TECHNIQUE: Transaxial images were obtained from the dome of the diaphragm to the symphysis pubis without oral contrast, and without intravenous contrast. Sagittal and coronal images were reconstructed. Individualized dose optimization techniques were used for this CT. COMPARISON: November 03, 2018 FINDINGS: The visualized lung bases are unremarkable. The visualized portions of the heart are within normal limits. Normal liver. Normal gallbladder and extrahepatic biliary system. Normal spleen. Normal pancreas. Normal bilateral adrenal glands. Normal right kidney. Normal left kidney. Normal visualized stomach. Normal small intestine. Normal colon. The appendix is visualized and appears normal. Calcified abdominal aorta. Normal inferior vena cava. Normal retroperitoneum. Normal urinary bladder. Mild fatty density at the inguinal canals. There is a small fatty ventral hernia in the upper anterior abdominal wall just below the xiphoid. Degenerative vertebral changes. CT/Abdomen/Pelvis without Cont IMPRESSION: Small fatty ventral hernia in the upper abdominal wall. Fatty density at the inguinal canals. Electronically Signed: Jonathan Sunshine DO at 21:15 EDT Tel [phone], Service support ,
--- NOTE | 2019-01-20 20:02 | ED.VISSUMM ---
- ER Visit Summary Date of Service: 01/20/19 Chief Complaint: Nausea and vomiting, shortness of breath History of Present Illness: The patient is a 68 M who has had 2 days of nausea and vomiting. He states he vomits every time he eats or smells food. This is associated with some cramping abdominal pain which he states is mild. He denies diarrhea. No urinary symptoms. His temperature was 101.5 ?F at home today. He does feel short of breath as well. He admits to coughing. He has a history of COPD. He does not wear any home oxygen. He denies any chest pain. He does have a history of coronary disease and has had bypass as well as 7 stents. Physical Examination: Vital signs reviewed. HEENT exam unremarkable. Heart is regular rate and rhythm without murmurs. Lungs have expiratory wheezing and rhonchorous breath sounds. His abdomen is soft with left lower quadrant tenderness to palpation. His extremities have no edema. He has no rashes. Neurologic exam is normal. Test Results: EKG was sinus rhythm with lateral T wave inversions and other nonspecific changes which are unchanged from an EKG done in October 2018. Laboratory studies are normal except for a troponin of 0.155. He has had normal troponins dating back to 2017. His chest x-ray had mild atelectasis. His CAT scan of his abdomen reveals some hernias but no other acute findings. Emergency Department Course and Treatment: She is given IV fluids and Zofran. He was given an albuterol treatment. He denies any chest pain but my concern is that this dyspnea could be cardiac related due to his history and the elevated troponins. The patient will be given aspirin and I will admit him to the hospital Treatment Plan: [] Disposition: Admit Impression: Dyspnea, elevated troponin, nausea and vomiting This note was generated with [employer] dictation software. It may contain incorrect words, spelling, and punctuation that were not noted in review of the chart prior to signing ED Disposition - Plan for ED Patient: Referrals: Juan De La Vega III, MD [Primary Care Provider] -
[2019-01-20] MEDS: 0.9% Normal Saline 1,000 ML 1000 ML IV (20:05)
[2019-01-20] MEDS: Ondansetron 4 MG/2 ML Vial IV (20:05)
--- NOTE | 2019-01-20 20:10 | RAD_ITS ---
STUDY: X-RAY CHEST REASON FOR EXAM: Male, 68 years old. Shortness of breath TECHNIQUE: Frontal view COMPARISON: January 11, 2019 FINDINGS: Stable sternotomy wires and left-sided pacemaker. The lungs are expanded. Mild basilar atelectasis. Stable right base granuloma. Normal size heart. Normal mediastinum and serjio. Normal visualized pulmonary arteries. Normal visualized aortic arch and descending thoracic aorta. Normal visualized thoracic spine. Normal visualized ribs, clavicles, and shoulders. There is no demonstrated abnormality of the visualized soft tissue structures of the upper abdomen. RAD/Chest 1 View (Portable) IMPRESSION: Mild basilar atelectasis. Electronically Signed: Jonathan Sunshine DO at 20:28 EDT Tel [phone], Service support ,
[2019-01-20 20:21] LABS: Absolute Lymphocyte Count 1.38 X10^3/ul (0.83-4.51); Absolute Neutrophil Count 7.6 X10^3/uL (2.0-7.7); Basophil# 0.01 X10^3/uL; Basophil% 0.1 % (0-1); Hematocrit 42.3 % (40-54); Hemoglobin 14.2 g/dl (13.0-16.5); Lymphocyte # 1.38 X10^3/ul (4.0); Lymphocyte % 13.5 % (19-41); Mean Corp Hgb Conc 33.6 g/gl (32-36); Mean Corpuscular Hgb 30.4 pg (27.0-32.0); Mean Corpuscular Volume 90.6 fL (80-94); Mean Platelet Vol. 9.4 fl (6.2-12.0); Monocyte# 0.98 X10^3/uL; Monocyte% 9.6 % (0-10); Neutrophil # 7.62 X10^3/uL (2.7-7.7); Neutrophil % 74.6 % (47-70); Platelet Count 188 K/mm3 (150-450); RBC Distribution Width CV 14.7 % (11.6-14.6); RBC Distribution Width SD 47.6 fl (35.1-43.9); Red Blood Count 4.67 M/mm3 (4.6-6.2); White Blood Count 10.2 K/mm3 (4.4-11.0)
[2019-01-20 20:23] LABS: POSITIVE COUNT NO; POSITIVE DIFFERENTIAL NO; POSITIVE MORPHOLOGY NO
[2019-01-20] MEDS: Albuterol 2.5 MG/3 ML VIAL.NEB. INHALATION (20:38)
[2019-01-20 20:41] LABS: ALB/GLOB Ratio 1.1 RATIO (0.9-2.4); AST(SGOT) 19 U/L (15-37); Alanine Aminotransfer ALT/SGPT 42 U/L (16-61); Albumin, Serum 3.5 g/dL (3.2-5.0); Alkaline Phosphatase 70 U/L (45-117); Anion Gap 4 (5-15); BUN 27 mg/dL (7-18); BUN/Creat Ratio 22.5 RATIO (10-20); Calcium,Total 8.7 mg/dL (8.5-10.1); Chloride 103 mmol/L (98-107); EST Glomerular Filtration Rate 64 mL/min (>60); Est Glom Filt Rate - Afr Amer 78 mL/min (>60); Estimated Creatinine Clearance 57.79 ml/min; Globulin 3.3 g/dL (2.2-4.2); Glucose 113 mg/dL (74-106); Lipase 67 U/L (73-393); Potassium 3.6 mmol/L (3.5-5.1); Protein, Total 6.8 g/dL (6.4-8.2); Sodium Level 136 mmol/L (136-145)
[2019-01-20] MEDS: Metoclopramide 10 MG/2 ML Vial IV (20:52)
--- NOTE | 2019-01-20 21:04 | ED.RN ---
NOTIFIED DR. SUN OF BP 81/38. PER PT IS THIS NORMAL FOR HIM.
--- NOTE | 2019-01-20 21:50 | PCM.HP.STD ---
Problem List (1) COPD (chronic obstructive pulmonary disease) Status: Chronic Qualifiers: (2) Presence of automatic implantable cardioverter-defibrillator Status: Chronic (3) H/O coronary artery bypass surgery Status: Chronic Comment: HUMPHREY-LAD, SVG-D1, SVG-OM (4) Chronic systolic (congestive) heart failure Status: Chronic (5) Ischemic cardiomyopathy Status: Chronic Comment: 25% ejection fraction in November 2016 (6) Benign essential hypertension Status: Chronic (7) Gastroesophageal reflux disease Status: Chronic Qualifiers: (8) Hyperlipidemia Status: Chronic Qualifiers: (9) Type 2 diabetes mellitus Status: Chronic (10) CAD (coronary artery disease) Status: Chronic Qualifiers: History of Present Illness Date of Admission: 01/20/19 Chief Complaint: Nausea, vomiting and shortness of breath. The patient is a 68 year old M with past medical history as mentioned above presented to the emergency room because of nausea, vomiting or shortness of breath. His symptoms started 2 days ago with nausea and vomiting, multiple times since yesterday without abdominal pain. On the same day, he started having shortness of breath, it is exertional, aggravated with activity, relieved with rest, associated with fever of up to 101.6 Fahrenheit as well as productive cough with small amount of yellow to white sputum. He denied abdominal pain, constipation or diarrhea. He denied chest pain, palpitation, dizziness or lightheadedness. He reported frequency, denies dysuria or hematuria. He mentioned that his grand daughter was sick with strep throat couple of days ago. In the emergency department, patient was afebrile, blood pressure borderline which is chronic, pulse ox was 95% on 2 L. His routine blood work was unremarkable. His EKG revealed normal sinus rhythm with T wave inversion in lateral chest leads and this is chronic finding compared to previous EKG, no acute ischemic changes. Troponin was 0.155. LFT and lipase were normal. Lactic acid was normal. Chest x-ray revealed no evidence of infiltrate or consolidation. CT scan abdomen and pelvis without contrast showed no evidence of acute interabdominal pathology. Patient is being admitted for probable healthcare associated pneumonia and abnormal cardiac enzymes. Past Medical History Past Medical History (Chronic Problems): Chronic Problems (Last Reviewed 12/24/18 @ 14:09 by ZORAN BlankenshipC) COPD (chronic obstructive pulmonary disease) (Chronic) Obesity (BMI 30.0-34.9) (Chronic) Nicotine dependence (Chronic) Gout (Chronic) Degenerative cervical disc (Chronic) Chronic back pain (Chronic) Presence of automatic implantable cardioverter-defibrillator (Chronic) H/O coronary artery bypass surgery (Chronic ~2008) HUMPHREY-LAD, SVG-D1, SVG-OM Chronic renal failure, stage 3 (moderate) (Chronic) Chronic systolic (congestive) heart failure (Chronic) Stented coronary artery (Chronic ~12/2016) has had 7 stents as of 06/15/17 Ischemic cardiomyopathy (Chronic) 25% ejection fraction in November 2016 V-tach (Chronic) has an AICD Benign essential hypertension (Chronic) Gastroesophageal reflux disease (Chronic) Hyperlipidemia (Chronic) Type 2 diabetes mellitus (Chronic) Morbid obesity (Chronic) CAD (coronary artery disease) (Chronic) Medical History: Medical History (Last Reviewed 12/24/18 @ 14:09 by Marlene Robles AUDIO EXPERIENCE EXPERT-C) Nicotine dependence (Chronic) F17.200 Gout (Chronic) M10.9 Degenerative cervical disc (Chronic) M50.30 Chronic back pain (Chronic) M54.9, G89.29 Chronic renal failure, stage 3 (moderate) (Chronic) N18.3 Chronic systolic (congestive) heart failure (Chronic) I50.22 Ischemic cardiomyopathy (Chronic) I25.5 25% ejection fraction in November 2016 V-tach (Chronic) I47.2 has an AICD Benign essential hypertension (Chronic) I10 Gastroesophageal reflux disease (Chronic) K21.9 Hyperlipidemia (Chronic) E78.5 Type 2 diabetes mellitus (Chronic) E11.9 Morbid obesity (Chronic) E66.01 CAD (coronary artery disease) (Chronic) I25.10 Tubular adenoma of colon (Inactive) D12.6 Allergies chlorpromazine HCl [From Thorazine] Allergy (Severe, Verified 01/20/19 19:50) Hives PER PATIENT tramadol HCl [From Ultram] Allergy (Severe, Verified 01/20/19 19:50) Hives PER PATIENT codeine Allergy (Intermediate, Verified 01/20/19 19:50) Hives atorvastatin Adverse Reaction (Intermediate, Verified 01/20/19 19:50) Other LEG PAIN/CRAMPS cyclobenzaprine [From Flexeril] Adverse Reaction (Verified 01/20/19 19:50) Upset Stomach naproxen Adverse Reaction (Verified 01/20/19 19:50) Upset Stomach promethazine [From Phenergan] Adverse Reaction (Verified 01/20/19 19:50) Other CONFUSION Home Medications: Ambulatory Orders Medication Instructions Recorded Isosorbide Mononitrate [Imdur] 30 mg PO DAILY 02/18/17 Albuterol Aerosols [Ventolin 2.5 mg INHALATION Q4H PRN PRN 02/23/17 Aerosols] albuterol sulfate HFA 90 2 puff INHALATION Q4H PRN g 07/31/17 mcg/actuation aerosol inhaler Pantoprazole Sodium [Protonix] 40 mg PO DAILY 11/15/17 Lisinopril [Zestril] 2.5 mg PO DAILY 05/21/18 Rosuvastatin Calcium [Crestor] 40 mg PO DAILY 06/16/18 Clopidogrel Bisulfate [Plavix] 75 mg PO DAILY 09/01/18 Furosemide 40 mg PO DAILY 09/01/18 Allopurinol 300 mg PO DAILY 09/20/18 Aspirin E.C. [Ecotrin] 325 mg PO DAILY@0800 09/20/18 Oxycodone HCl/Acetaminophen 1 tab PO 4X/DAY PRN 10/06/18 [Percocet 7.5-325 mg Tablet] Metoprolol Succinate 100 mg PO DAILY 12/01/18 Nitroglycerin 0.4 mg SL PRN PRN 12/01/18 Nicotine [Nicoderm Cq] 21 mg TRANSDERM. DAILY patch 12/03/18 Surgical History: Surgical History (Last Reviewed 12/24/18 @ 14:09 by Marlene Robles NP-C) Presence of automatic implantable cardioverter-defibrillator (Chronic) Z95.810 H/O coronary artery bypass surgery (Chronic) Onset Date: ~2008 Z95.1 HUMPHREY-LAD, SVG-D1, SVG-OM Stented coronary artery (Chronic) Onset Date: ~12/2016 has had 7 stents as of 06/15/17 Hx of hernia repair (Inactive) Z98.890, Z87.19 Previous back surgery (Inactive) Z98.890 Surgical History: angioplasty - stents x10, coronary bypass surgery, - - AICD placement, back surgery x 2, hernia repair Psychiatric History: No pertinent psych hx Lives: Spouse/ Significant Other Smoking Status: Current every day smoker Tobacco Use: Cigarettes Alcohol: None Drugs: None - *Family History Paternal Family History: Family History (Last Reviewed 12/24/18 @ 14:09 by TISH Blankenship) Brother CAD (coronary artery disease) Myocardial infarction Sudden cardiac Mother Cancer Hypertension Father Cancer COPD (chronic obstructive pulmonary disease) History Items: Cancer, Heart Disease Maternal Family History: Family History (Last Reviewed 12/24/18 @ 14:09 by TISH Blankenship) Brother CAD (coronary artery disease) Myocardial infarction Sudden cardiac Mother Cancer Hypertension Father Cancer COPD (chronic obstructive pulmonary disease) History Items: - - Patient notes a paternal family history of chronic lung disease, lung cancer with history of tobacco use. Review of Systems Constitutional: Reports: Fever. Denies: Anorexia, Chills, Weakness Eyes: Denies: Blurred vision, Double vision, Drainage, Redness HEENT: Denies: Difficulty Hearing, Ear Pain, Eye Pain, Nasal Congestion, Sore Throat Cardiovascular: Denies: Chest Pain, Chest Pressure, Chest Tightness, Heaviness, Light Headedness, Palpitations, Syncope Respiratory: Reports: Cough, Shortness of breath upon exertion, Sputum production. Denies: Pleuritic Pain, Wheezing Gastrointestinal: Reports: Nausea, Vomiting. Denies: Abdominal Pain, Constipation, Diarrhea Genitourinary: Reports: Frequency. Denies: Dysuria, Hematuria Musculoskeletal: Reports: Back Pain. Denies: Arm Pain, Foot Pain Skin: Denies: Dryness, Rash Neurological: Denies: Balance problems, Double vision, Change in Speech, Slurred speech, Focal weakness, Incoordination Psychiatric: Denies: Anxiety, Depression Endocrine: Denies: Change in Body Habitus, Polydipsia, Polyuria VTE Information - Inpt Only VTE Present on Admission: No VTE Mechan Device Prophylaxis: None VTE Pharm Prophylaxis ordered?: Yes - Physical Exam General: Alert, Oriented x3, Cooperative, No apparent distress HEENT: Atraumatic, PERRLA, EOMI, Normocephalic Oral: Moist Mucosa, No Gingival or Mucosal Lesions/ Ulcerations Neck: Supple, No JVD, Negative Carotid Bruits, Trachea Midline, Thyroid Normal Size and Texture Lungs: No wheeze, Diminished, Rales, Rhonchi, - - Diminished breath sounds bilaterally, faint bilateral basal crackles, more on the right base. Cardiovascular: Regular rate, Regular Rhythm, Normal S1, Normal S2, PMI Normal Abdomen: Bowel Sounds Present, Soft, Non Tender, Non-Distended, No Hepato-splenomegaly, Obese Extremities: No clubbing, No cyanosis, Edema - Trace edema. Skin: No rashes, No breakdown Lymphatic: No Cervical, Supraclavicular, or Inguinal Adenopathy Neurological: Cranial nerves II-XII grossly intact, Motor Exam 5/5 strength throughout Psych/Mental Status: Normal Affect, Appropriate, Alert and oriented to time, place, person, mood and affect Vital Signs Temp Pulse Resp BP Pulse Ox 98.6 F 67 12 81/38 L 95 01/20/19 19:52 01/20/19 21:05 01/20/19 21:05 01/20/19 21:05 01/20/19 21:05 Oxygen Flow Rate (L/min) 2 Oxygen Delivery Method Nasal Cannula Weight: 212 lb 4.882 oz Body Mass Index (BMI) 32.3 Laboratory Tests Past 24 Hrs 01/20/19 01/20/19 01/20/19 20:00 20:00 20:10 WBC 10.2 RBC 4.67 Hgb 14.2 Hct 42.3 MCV 90.6 MCH 30.4 MCHC 33.6 RDW 14.7 H RDW Differential 47.6 H Plt Count 188 MPV 9.4 Immature Gran % (Auto) 0.200 Neut % (Auto) 74.6 H Lymph % (Auto) 13.5 L [place] % (Auto) 9.6 Eos % (Auto) 2.0 Baso % (Auto) 0.1 Absolute Neuts (auto) 7.6 Absolute Lymphs (auto) 1.38 Total Counted Not Reportable Sodium 136 Potassium 3.6 Chloride 103 Carbon Dioxide 29.0 Anion Gap 4 L BUN 27 H Creatinine 1.20 Estim Creat Clear Calc 57.79 Est GFR (MDRD) Af Amer 78 Est GFR (MDRD) Non-Af 64 BUN/Creatinine Ratio 22.5 H Glucose 113 H Lactic Acid 1.0 Calcium 8.7 Total Bilirubin 0.50 AST 19 ALT 42 Alkaline Phosphatase 70 Troponin I 0.155 H Total Protein 6.8 Albumin 3.5 Globulin 3.3 Albumin/Globulin Ratio 1.1 Lipase 67 L Clinical Impression(s) from Imaging Studies Abdomen/Pelvis CT 01/20/19 20:00 IMPRESSION: Small fatty ventral hernia in the upper abdominal wall. Fatty density at the inguinal canals. Electronically Signed: Jonathan Sunshine DO at 21:15 EDT Tel [phone], Service support , Chest X-Ray 01/20/19 20:10 IMPRESSION: Mild basilar atelectasis. Electronically Signed: Jonathan Sunshine DO at 20:28 EDT Tel [phone], Service support , Assessment/Plan This is a 68 years old male patient presented to the emergency room because of nausea, vomiting shortness of breath with productive cough as well as fever, found to have unremarkable routine blood work as well as abnormal cardiac enzymes, chest x-ray without obvious infiltrate or consolidation and he is being admitted for probable healthcare associated pneumonia and abnormal cardiac enzymes. #1 probable healthcare associated pneumonia: This is based on symptoms of shortness of breath, productive cough with yellow sputum and fever. Although patient was afebrile in the ED, has no leukocytosis and chest x-ray revealed no obvious infiltrate or consolidation. Patient stated that his grandkids did have strep throat couple of days ago. His lactic acid was normal. Plan: Admit to PCU, cardiac monitoring, urinalysis, urine culture, sputum culture, pneumococcal and Legionella antigen, bronchodilators, start IV Zosyn empirically, repeat chest x-ray tomorrow morning, repeat CBC and BMP tomorrow morning, PT OT evaluation and treatment. #2 abnormal cardiac enzymes: Troponin is 0.155. Patient denies any chest pain. EKG reviewed, revealed T wave inversion in lateral chest leads and this is chronic findings, no acute ischemic changes. Patient had very low ejection fraction, it was 35% back on September,. Plan: Cardiac monitoring, serial enzymes, repeat EKG tomorrow morning. At this time, this minimally elevated troponin likely due to demand ischemia secondary to probable pneumonia. Will consider cardiology consult if the cardiac enzymes continue to rise. #3 CAD status post CABG and stents: EKG without new changes, patient denies chest pain. Plan as above, continue aspirin, Plavix, nitrates, metoprolol and lisinopril. #4 ischemic cardiomyopathy/chronic systolic CHF: Status post ICD. Clinically stable, compensated. I doubt acute CHF. He had to the echocardiogram back on September, that showed ejection fraction of 35%. Continue Lasix, nitrates, lisinopril and metoprolol, fluid restriction. #5 stage III chronic kidney disease: Baseline creatinine has been fluctuating anywhere between 1.2 up to 1.9. Admission creatinine is 1.20, stable at baseline. #6 type 2 diabetes mellitus: Diet-controlled, plan for Accu-Cheks, sliding scale. #7 COPD: DuoNeb every 6 hours, albuterol as needed, oxygen by nasal cannula. #8 hypertension: Blood pressure is borderline, that his baseline and he is asymptomatic. Continue lisinopril, metoprolol, nitrate and Lasix. #9 chronic back pain: Continue Percocet as needed. #10 history of V. tach: Status post ICD. #11 DVT prophylaxis: Subcu Lovenox. This note was generated with [employer] dictation software. It may contain incorrect words, spelling, and punctuation that were not noted in checking the note before signing. . Code Visit Inpatient E&M: 96297 Init Hosp L3
[2019-01-20 22:44] LABS: BNP,B-Type NATRIURETIC PEPTIDE 233.7 pg/mL (0-100)
[2019-01-20] MEDS: oxyCODONE 5 MG Tablet 7.5 MG PO (23:22)
[2019-01-20] MEDS: 0.9% NaCl Peripheral Flush Adult/Peds IV (23:26)
[2019-01-21] VITALS (10 sets, daily range): BP systolic 93–126; BP diastolic 46–77; PULSE 64–84; RESP 10–20; TEMP 36.7–36.9; O2SAT 93–100
[2019-01-21 00:46] LABS: Bedside Glucose 118 mg/dL (70-110)
[2019-01-21 02:24] LABS: Absolute Lymphocyte Count 1.76 X10^3/ul (0.83-4.51); Absolute Neutrophil Count 4.6 X10^3/uL (2.0-7.7); Basophil# 0.01 X10^3/uL; Basophil% 0.1 % (0-1); Eosinophils% 2.7 % (0-5); Hematocrit 41.9 % (40-54); Lymphocyte # 1.76 X10^3/ul (4.0); Mean Corp Hgb Conc 33.4 g/gl (32-36); Mean Corpuscular Hgb 29.9 pg (27.0-32.0); Mean Corpuscular Volume 89.3 fL (80-94); Mean Platelet Vol. 9.4 fl (6.2-12.0); Monocyte# 0.76 X10^3/uL; Monocyte% 10.4 % (0-10); Neutrophil # 4.59 X10^3/uL (2.7-7.7); Neutrophil % 62.5 % (47-70); Platelet Count 181 K/mm3 (150-450); RBC Distribution Width CV 14.6 % (11.6-14.6); RBC Distribution Width SD 47.2 fl (35.1-43.9); Red Blood Count 4.69 M/mm3 (4.6-6.2); White Blood Count 7.3 K/mm3 (4.4-11.0)
[2019-01-21 02:28] LABS: POSITIVE COUNT NO; POSITIVE DIFFERENTIAL NO; POSITIVE MORPHOLOGY NO; Prothrombin Time (Protime)PT. 13.2 SECONDS (11.7-14.9)
[2019-01-21 02:38] LABS: Anion Gap 6 (5-15); BUN 25 mg/dL (7-18); BUN/Creat Ratio 23.8 RATIO (10-20); Calcium,Total 8.4 mg/dL (8.5-10.1); Chloride 105 mmol/L (98-107); Creatinine, Serum 1.05 mg/dL (0.70-1.30); EST Glomerular Filtration Rate 75 mL/min (>60); Est Glom Filt Rate - Afr Amer 90 mL/min (>60); Estimated Creatinine Clearance 66.05 ml/min; Glucose 99 mg/dL (74-106); Potassium 3.6 mmol/L (3.5-5.1); Sodium Level 138 mmol/L (136-145)
[2019-01-21] MEDS: oxyCODONE 5 MG Tablet 7.5 MG PO (05:28)
--- NOTE | 2019-01-21 05:55 | RAD_ITS ---
STUDY: X-RAY CHEST REASON FOR EXAM: Male, 68 years old. Fever, dyspnea and chest pain TECHNIQUE: Frontal and lateral views of the chest. COMPARISON: 01/20/2019 FINDINGS: Pacemaker is seen on the left side Calcified granuloma is seen in the right lung base measures 3 mm. There is no demonstrated pleural abnormality. Sternal cerclage wires and vascular clips are present from a prior sternotomy and coronary artery bypass graft procedure (CABG). Normal mediastinum and serjio. Normal visualized pulmonary arteries. Normal visualized aortic arch and descending thoracic aorta. Normal visualized thoracic spine. There is degenerative osteoarthritis of the bilateral shoulders. There is no demonstrated abnormality of the visualized soft tissue structures of the upper abdomen. RAD/Chest PA and Lateral IMPRESSION: Degenerative changes, as described above. No demonstrated acute cardiopulmonary process. Electronically Signed: Lisa Aguilar, at 10:15 EDT Tel , Service support ,
--- NOTE | 2019-01-21 05:55 | EKG12_ITS ---
Test Reason : AM EKG Blood Pressure : / mmHG Vent. Rate : 073 BPM Atrial Rate : 073 BPM P-R Int : 156 ms QRS Dur : 108 ms QT Int : 424 ms P-R-T Axes : 074 019 146 degrees QTc Int : 467 ms Normal sinus rhythm Incomplete left bundle branch block ST & T wave abnormality, consider anterolateral ischemia Prolonged QT Abnormal ECG Confirmed by BERYL LUNDBERG, MICHELLE ([id number]), mapping editor LANDRY YARBROUGH ([id number]) on 01/25/2019 12:01:37 PM Referred By: Kana Khan Confirmed By:MICHELLE CORDOBA MD
[2019-01-21 07:01] LABS: Mucous, Urine 0 SEEN /hpf (<or=2+); Red Blood Cells-Urine 0 SEEN /hpf (0-5); White Blood Cells 0 SEEN /hpf (0-5)
[2019-01-21] MEDS: 0.9% NaCl Peripheral Flush Adult/Peds IV ×2 (07:03→12:00)
[2019-01-21 07:06] LABS: Color, Urine Yellow (Yellow); Glucose, Dipstick Normal (Normal); Ketone-Dipstick Negative (Negative); Leukocyte Esterase-Dipstick Negative /ul (Negative); Nitrite-Dipstick Negative (Negative); Occult Blood-Urine 10 /ul (Negative); Protein-Dipstick Negative (Negative); Urine Bilirubin Dipstick Negative (Negative); Urine Clarity Clear (Clear); Urine Urobilinogen Normal (Normal)
[2019-01-21 07:12] LABS: Squamous Epithelial Cells - UA 0-5 SEEN /hpf (0-5)
[2019-01-21 07:13] LABS: Bacteria RARE /hpf (None Seen)
[2019-01-21] MEDS: Ipratropium/Albuterol Sulfate 3 ML AMPUL.NEB INHALATION ×2 (07:17→13:45)
[2019-01-21] MEDS: Allopurinol 300 MG Tablet PO (09:28)
[2019-01-21] MEDS: Enoxaparin 30 MG/0.3 ML Syringe SC (09:29)
[2019-01-21] MEDS: Clopidogrel Bisulfate 75 MG Tablet PO (09:30)
[2019-01-21] MEDS: Pantoprazole Sodium 40 MG Tablet PO (09:30)
[2019-01-21 10:25] LABS: Bedside Glucose 99 mg/dL (70-110)
--- NOTE | 2019-01-21 11:42 | NURSING ---
Antihypertensives held d/t hypotension overnight and into this morning. Dr. Dorantes is aware.
[2019-01-21 11:56] LABS: Bedside Glucose 125 mg/dL (70-110)
[2019-01-21] MEDS: Morphine 4 MG/ML Syringe IV (11:59)
[2019-01-21] MEDS: Ondansetron 4 MG/2 ML Vial IV (12:04)
--- NOTE | 2019-01-21 13:08 | CASEMGMT ---
.RN CM Assessment Presentation: COPD, pneumonia. Intro role of CM and purpose of RN CM assessment to patient. Pt is alert, oriented and able to participate in assessment. Demographics, PCP and Pharmacy verified. Pt states he is independent at home and plans to return on dc. PCP: Dr. Juan De La Vega III Preferred [facility]acy: [facility] Insurance: [facility] Dual Prescription Benefit: yes LNOK: [facility] [place], Living Arrangements: Lives in two story home,states is able to do stairs, however states it tires him. Pt states he is independent with ADL, does not require assistance. Transportation: drives. DME: States he does not use DME, however has medical alert, walker, wheelchair. Denies oxygen or Cpap use. HHC: none Patient DC goals: Home on discharge. DC PLAN: Home on discharge. Frankie SAUCEDO RN ACM
--- NOTE | 2019-01-21 14:30 | PCM.DC ---
You will use the following diet at home:: Calorie/Carbohydrate Controlled (specify 1200, 1400, etc) - 1800 matheus Your food should be the consistency of: Regular Your liquids should be the consistency of: Regular/Thin Discharge Activity: Return to Normal Activity Weight Bearing Status: Full weight bearing Allergies/Adverse Reactions: Allergies chlorpromazine HCl [From Thorazine] Allergy (Severe, Verified 01/20/19 19:50) Hives PER PATIENT tramadol HCl [From Ultram] Allergy (Severe, Verified 01/20/19 19:50) Hives PER PATIENT codeine Allergy (Intermediate, Verified 01/20/19 19:50) Hives atorvastatin Adverse Reaction (Intermediate, Verified 01/20/19 19:50) Other LEG PAIN/CRAMPS cyclobenzaprine [From Flexeril] Adverse Reaction (Verified 01/20/19 19:50) Upset Stomach naproxen Adverse Reaction (Verified 01/20/19 19:50) Upset Stomach promethazine [From Phenergan] Adverse Reaction (Verified 01/20/19 19:50) Other CONFUSION Medications to take at Discharge Isosorbide Mononitrate [Imdur] 30 mg PO DAILY 02/18/17 Albuterol Aerosols [Ventolin Aerosols] 2.5 mg INHALATION Q4H PRN PRN 02/23/17 albuterol sulfate HFA 90 mcg/actuation aerosol inhaler 2 puff INHALATION Q4H PRN g 07/31/17 Pantoprazole Sodium [Protonix] 40 mg PO DAILY 11/15/17 Lisinopril [Zestril] 2.5 mg PO DAILY 05/21/18 Rosuvastatin Calcium [Crestor] 40 mg PO DAILY 06/16/18 Clopidogrel Bisulfate [Plavix] 75 mg PO DAILY 09/01/18 Furosemide 40 mg PO DAILY 09/01/18 Allopurinol 300 mg PO DAILY 09/20/18 Oxycodone HCl/Acetaminophen [Percocet 7.5-325 mg Tablet] 1 tab PO 4X/DAY PRN 10/06/18 Metoprolol Succinate 100 mg PO DAILY 12/01/18 Nitroglycerin 0.4 mg SL PRN PRN 12/01/18 Nicotine [Nicoderm Cq] 21 mg TRANSDERM. DAILY patch 12/03/18 Albuterol Aerosols [Ventolin Aerosols] 2.5 mg INHALATION Q2H PRN PRN vial.neb. 01/21/19 Aspirin [Aspir 81] 81 mg PO DAILY #1 tablet. 01/21/19 Prednisone 10 mg PO UD #30 tab 01/21/19 levoFLOXacin tablet [Levaquin tablet] 500 mg PO DAILY #7 tab 01/21/19 The following prescriptions were given: Aspirin [Aspir 81] 81 mg PO DAILY #1 tablet.dr Transmission Status: Pending to [facility] #30 levoFLOXacin tablet [Levaquin tablet] 500 mg PO DAILY #7 tab Transmission Status: Pending to [facility] #30 Prednisone 10 mg PO UD #30 tab Prescription Printed Primary Care Physician: Juan De La Vega III, MD [Primary Care Provider] - Please follow up with your Primary Care Physician in: next week Test Results: Test results from this visit will be discussed in further detail at your follow-up appointment, if applicable.
--- NOTE | 2019-01-23 10:56 | PCM.DC.SUM ---
Discharge Date and Diagnosis Date of Admission: 01/20/19 Date of Discharge: 01/21/19 - Primary Discharge Diagnosis #1 acute exacerbation of COPD #2 acute pkxvzlokgo-pxmp-wumxfvie bacterial #3 troponin elevation-not related to cardiac event, etiology unknown #4 coronary artery disease #5 ischemic cardiomyopathy #6 hypertension #7 type 2 diabetes #8 viral gastroenteritis - Secondary Discharge Diagnosis Chronic Problems (Last Reviewed 12/24/18 @ 14:09 by ZORAN BlankenshipC) COPD (chronic obstructive pulmonary disease) (Chronic) Obesity (BMI 30.0-34.9) (Chronic) Nicotine dependence (Chronic) Gout (Chronic) Degenerative cervical disc (Chronic) Chronic back pain (Chronic) Presence of automatic implantable cardioverter-defibrillator (Chronic) H/O coronary artery bypass surgery (Chronic ~2008) HUMPHREY-LAD, SVG-D1, SVG-OM Chronic renal failure, stage 3 (moderate) (Chronic) Chronic systolic (congestive) heart failure (Chronic) Stented coronary artery (Chronic ~12/2016) has had 7 stents as of 06/15/17 Ischemic cardiomyopathy (Chronic) 25% ejection fraction in November 2016 V-tach (Chronic) has an AICD Benign essential hypertension (Chronic) Gastroesophageal reflux disease (Chronic) Hyperlipidemia (Chronic) Type 2 diabetes mellitus (Chronic) Morbid obesity (Chronic) CAD (coronary artery disease) (Chronic) Hospital Course and Treatment Operations: None Procedures: None Summary of Care Provided: The patient is a 68 year old M was seen in the emergency room with a chief complaint of nausea and vomiting shortness of breath. Patient stated that his temperature was 101.5 at home the day before. Patient complained of feeling shortness of breath and admits to coughing. Work-up in the ER included lab studies which were unremarkable except for troponin I 0.155, chest x-ray showed only mild atelectasis, CAT scan of the abdomen revealed some hernia but no acute findings. Patient was given IV fluids and Zofran, he was given an albuterol aerosol treatment and he was admitted to the hospital for dyspnea, elevated troponin, nausea and vomiting. Patient was given aerosol treatments and fluids, his condition rapidly improved so much so that the next day the patient requested discharge and felt much better and had no nausea and vomiting. He was felt to have had a viral gastroenteritis and exacerbation of COPD with bronchitis. His rapid recovery was unexpected. On 01/21/2019, patient was seen and examined: On examination he appeared in good health and spirits. Vital signs as documented. Skin warm and dry and without overt rashes. Neck without JVD. Lungs-scattered expiratory wheezes were noted. Heart exam notable for regular rhythm, normal sounds and absence of murmurs, rubs or gallops. Abdomen unremarkable and without evidence of organomegaly, masses, or abdominal aortic enlargement. Extremities nonedematous. Neuro: Cranial nerves II through XII are grossly intact, no focal motor deficits were noted, sensation to light touch and pinprick intact. Psych: Patient is alert and oriented x3, he does not appear anxious or depressed On 01/21/2019, patient was seen and examined and felt to be stable condition for discharge home - Physical Exam Vital Signs Temp Pulse Resp BP Pulse Ox 98.5 F 78 16 126/77 H 94 01/21/19 14:31 01/21/19 14:31 01/21/19 14:31 01/21/19 14:31 01/21/19 14:31 Oxygen Flow Rate (L/min) 2 Oxygen Delivery Method Room Air Weight: 93.5 kg Body Mass Index (BMI) 31.3 Intake and Output for Last 24 Hours 01/21/19 01/22/19 01/23/19 23:59 23:59 23:59 Intake Total 1495.8 / 1495.8 Output Total 0 / 0 Balance 1495.8 / 1495.8 Microbiology Past 72 Hours 01/21/19 06:35 Urine Culture - Final Urine, Clean Catch Culture exhibits no growth. 01/21/19 06:35 Streptococcus pneumoniae Antigen (M - Final Urine, Clean Catch 01/21/19 06:35 Legionella Antigen - Final Urine, Clean Catch Discharge Activity: Return to Normal Activity Weight Bearing Status: Full weight bearing Home Medications: Medications to take at Discharge Isosorbide Mononitrate [Imdur] 30 mg PO DAILY 02/18/17 Albuterol Aerosols [Ventolin Aerosols] 2.5 mg INHALATION Q4H PRN PRN 02/23/17 albuterol sulfate HFA 90 mcg/actuation aerosol inhaler 2 puff INHALATION Q4H PRN g 07/31/17 Pantoprazole Sodium [Protonix] 40 mg PO DAILY 11/15/17 Lisinopril [Zestril] 2.5 mg PO DAILY 05/21/18 Rosuvastatin Calcium [Crestor] 40 mg PO DAILY 06/16/18 Clopidogrel Bisulfate [Plavix] 75 mg PO DAILY 09/01/18 Furosemide 40 mg PO DAILY 09/01/18 Allopurinol 300 mg PO DAILY 09/20/18 Oxycodone HCl/Acetaminophen [Percocet 7.5-325 mg Tablet] 1 tab PO 4X/DAY PRN 10/06/18 Metoprolol Succinate 100 mg PO DAILY 12/01/18 Nitroglycerin 0.4 mg SL PRN PRN 12/01/18 Nicotine [Nicoderm Cq] 21 mg TRANSDERM. DAILY patch 12/03/18 Albuterol Aerosols [Ventolin Aerosols] 2.5 mg INHALATION Q2H PRN PRN vial.neb. 01/21/19 Aspirin [Aspir 81] 81 mg PO DAILY #1 tablet. 01/21/19 Prednisone 10 mg PO UD #30 tab 01/21/19 levoFLOXacin tablet [Levaquin tablet] 500 mg PO DAILY #7 tab 01/21/19 Following Prescrptions Were Given to Patient: Aspirin [Aspir 81] 81 mg PO DAILY #1 tablet. Transmission Status: Received by [facility] levoFLOXacin tablet [Levaquin tablet] 500 mg PO DAILY #7 tab Transmission Status: Received by [facility] Prednisone 10 mg PO UD #30 tab Prescription Printed Primary Care Physician: Juan De La Vega III, MD [Primary Care Provider] - Please follow up with your Primary Care Physician in: next week Disposition: Home Minutes spent on discharge:: 31 Patient Condition:: Stable Medical Necessity - Tobacco Use Smoking Status: Current every day smoker Tobacco Use: Cigarettes Meaningful Use Info Meaningful Use Diagnoses (Choose all that apply): None applicable Code Visit Inpatient E&M: 30313 Disch Hosp
--- NOTE | 2019-01-24 14:58 | CASEMGMT ---
LEONIE JEAN-BAPTISTE DC PHONE CALL DC DATE: 01/20/19 DC Disposition: Home LACE/STRATA: 06/11 DC Diagnosis: COPD exacerbation Intro role of CM to patient. Pt states he is doing well. No questions re: dc instructions or prescriptions. Pt has not made f/u phone call yet. States his was ill all night and he was taking care of her. Appt will be made tomorrow. No care improvement suggestions were given, pt states, you guys are great. Frankie JOHNSONN RN ACM
== END 2019-01-21 15:17 | disposition home or self-care (01) ==
LOC: ED 20:40 → PCU 21:41
PROVIDERS: Admitting Provider Hospitalist; Emergency Provider Emergency Medicine; Family Provider Family Medicine; PCP Family Medicine; Referring Provider Hospitalist; Visit Provider Internal Medicine
DX: J44.0 Chronic obstructive pulmonary disease with (acute) lower respiratory infection (principal); J20.8 Acute bronchitis due to other specified organisms; J44.1 Chronic obstructive pulmonary disease with (acute) exacerbation; E11.22 Type 2 diabetes mellitus with diabetic chronic kidney disease; A08.4 Viral intestinal infection, unspecified; I50.22 Chronic systolic (congestive) heart failure; N18.3 Chronic kidney disease, stage 3 (moderate); I13.0 Hypertensive heart and chronic kidney disease with heart failure and stage 1 through stage 4 chronic kidney disease, or unspecified chronic kidney disease; I25.10 Atherosclerotic heart disease of native coronary artery without angina pectoris; I25.5 Ischemic cardiomyopathy; E78.5 Hyperlipidemia, unspecified; K21.9 Gastro-esophageal reflux disease without esophagitis; G89.29 Other chronic pain; M10.9 Gout, unspecified; F17.210 Nicotine dependence, cigarettes, uncomplicated; Z95.1 Presence of aortocoronary bypass graft; Z79.899 Other long term (current) drug therapy; Z79.82 Long term (current) use of aspirin; Z79.02 Long term (current) use of antithrombotics/antiplatelets; Z95.810 Presence of automatic (implantable) cardiac defibrillator
CPT/HCPCS: 36415; 71045; 71046; 74176; 80048; 80053; 81001; 82962; 83605; 83690; 83880; 84484; 85025; 85610; 87086; 87088; 87449; 93005; 94640; 96365; 96366; 96372; 96375; 96376; 97802; 99218; 99285; J7030; J7040; A4216; G0378; J2405

== ENCOUNTER 2019-02-02 13:02 | Emergency (ER) | payer MEDICARE, MEDICAID, SELFPAY ==
[2019-01-20 22:27] VITALS: BMI 31.3
[2019-02-02 13:03] VITALS: BP 105/66; PULSE 71; RESP 20; TEMP 36.4; O2SAT 92; BMI 31.7
--- NOTE | 2019-02-02 13:31 | ED.DCSUM_ITS ---
History of Present Illness Chief Complaint: Weakness Detail of Chief Complaint: States visiting nurse thought he was lethargic Informant: Patient Onset: - - Unknown Context: - - Unknown Timing: Continuous Quality: Generalized weakness Location: Residents Current Severity: Mild Maximum Severity: Moderate Worsened by: Nothing Relieved by: Nothing Associated Symptoms: He states lethargy Narrative: Patient is a 69-year-old man whose chief complaint is generalized weakness. Apparently the visiting nurse spoke to and recommended evaluation in the emergency department. Patient has no idea why he is here. He denies fever, chills night sweats. He denies ocular, visual auditory symptoms. He denies chest pain, shortness of breath difficulty breathing. He denies nausea, vomiting or diarrhea. He denies black or maroon stool. He denies dysuria, frequency, urgency or hematuria. His only complaint is generalized weakness. He denies history of obstructive sleep apnea he is a smoker and has history of COPD. Pulse ox 9193% on room air. Prior similar symptoms: No Recent Illness/Hospitalization: No - Past Medical History (1) Benign essential hypertension Status: Chronic (2) CAD (coronary artery disease) Status: Chronic (3) COPD (chronic obstructive pulmonary disease) Status: Chronic (4) Chronic renal failure, stage 3 (moderate) Status: Chronic (5) Chronic systolic (congestive) heart failure Status: Chronic (6) Degenerative cervical disc Status: Chronic (7) Gastroesophageal reflux disease Status: Chronic (8) Gout Status: Chronic (9) Hyperlipidemia Status: Chronic (10) Ischemic cardiomyopathy Status: Chronic Comment: 25% ejection fraction in November 2016 (11) Morbid obesity Status: Chronic (12) V-tach Status: Chronic Comment: has an AICD (13) ARIADNA (obstructive sleep apnea) Status: Suspected Past Medical History - Allergies and Home Meds Allergies/Adverse Reactions: Allergies chlorpromazine HCl [From Thorazine] Allergy (Severe, Verified 02/02/19 13:02) Hives PER PATIENT tramadol HCl [From Ultram] Allergy (Severe, Verified 02/02/19 13:02) Hives PER PATIENT codeine Allergy (Intermediate, Verified 02/02/19 13:02) Hives atorvastatin Adverse Reaction (Intermediate, Verified 02/02/19 13:02) Other LEG PAIN/CRAMPS cyclobenzaprine [From Flexeril] Adverse Reaction (Verified 02/02/19 13:02) Upset Stomach naproxen Adverse Reaction (Verified 02/02/19 13:02) Upset Stomach promethazine [From Phenergan] Adverse Reaction (Verified 02/02/19 13:02) Other CONFUSION Primary Care Physician: Juan De La Vega III, MD [Primary Care Provider] - Prior records reviewed: Yes Surgical History: angioplasty - stents x10, coronary bypass surgery, - - AICD placement, back surgery x 2, hernia repair Smoking Status: Current every day smoker - Family History Paternal Family History: Family History (Last Reviewed 12/24/18 @ 14:09 by TISH Blankenship) Brother CAD (coronary artery disease) Myocardial infarction Sudden cardiac Mother Cancer Hypertension Father Cancer COPD (chronic obstructive pulmonary disease) Family History: Reports: Cancer, Heart Disease Maternal Family History: Family History (Last Reviewed 12/24/18 @ 14:09 by TISH Blankenship) Brother CAD (coronary artery disease) Myocardial infarction Sudden cardiac Mother Cancer Hypertension Father Cancer COPD (chronic obstructive pulmonary disease) Family History: Reports: - - Patient notes a paternal family history of chronic lung disease, lung cancer with history of tobacco use. Review of Systems General: Reports: Malaise. Denies: Chills, Fever, Subjective, Sweats, Weight loss, - Eyes: Denies: Visual changes - bilaterally, Diplopia ENT: Denies: Rhinorrhea, Sore throat Cardiovascular: Denies: Chest pain, Palpitations Respiratory: Denies: Dyspnea, Cough, Dyspnea on exertion Gastrointestinal: Denies: Abdominal pain, Nausea, Vomiting, Diarrhea, Melena, Hematochezia Genitourinary: Denies: Dysuria, Hematuria, Frequency Musculoskeletal: Denies: Back pain, Extremity Pain Skin: Denies: Rash, Wounds Neurological: Reports: Weakness. Denies: Headache, Parasthesia, Numbness, -, - Hematologic: Denies: Easy bruising, Easy bleeding Physical Exam Vital Signs/Narrative: Vital Signs Temp Pulse Resp BP Pulse Ox 02/02/19 13:03 97.6 F L 71 20 H 105/66 92 Inital Vital Signs reviewed: Yes General: Well nourished, Well developed, Obese, No Acute Distress Head: Normocephalic, Atraumatic Eyes: Perrl, EOMI. Negative for: Pale conjunctiva, Scleral icterus ENT: Moist mucous membranes, No rhinorrhea, TM's clear Neck: Supple, Nontender, No lymphadenopathy, No JVD, - Cardiovascular: Regular rate, Regular rhythm, No murmurs, Normal S1, Normal S2 Respiratory: No distress, CTA bilaterally, Chest nontender Abdomen: Soft, Nontender, Nondistended, Normal bowel sounds, No masses Rectal: Deferred Back: Nontender, Normal Inspection. Negative for: CVA tenderness Extremities: Nontender, No edema Skin: Normal color, No rash, No Trauma. Negative for: Cyanosis, Diaphoresis, Jaundice Neurological: Alert, Oriented x3, Cranial nerves II-XII grossly intact, Normal Strength, Normal Sensation Psychological: Normal affect, Normal Mood Diagnostic/Tx/Re-eval Laboratory Results 02/02/19 02/02/19 02/02/19 13:34 13:34 13:45 WBC 6.3 RBC 4.74 Hgb 14.4 Hct 43.6 MCV 92.0 MCH 30.4 MCHC 33.0 RDW 14.4 RDW Differential 48.8 H Plt Count 182 MPV 9.4 Immature Gran % (Auto) 0.300 Neut % (Auto) 58.1 Lymph % (Auto) 27.7 [place] % (Auto) 12.0 H Eos % (Auto) 1.7 Baso % (Auto) 0.2 Absolute Neuts (auto) 3.7 Absolute Lymphs (auto) 1.75 Total Counted Not Reportable Specimen Type Sample Site pH Bicarbonate Actual POC Total CO2 Base Excess O2 Saturation ABG pCO2 ABG pO2 Greg Test O2 Delivery Device Blood Gas Notified Whom Blood Gas Notified Time Sodium 138 Potassium 4.0 Chloride 103 Carbon Dioxide 28.0 Anion Gap 7 BUN 15 Creatinine 1.20 Estim Creat Clear Calc 57.79 Est GFR (MDRD) Af Amer 77 Est GFR (MDRD) Non-Af 64 BUN/Creatinine Ratio 12.5 Glucose 134 H Calcium 8.6 Urine Color Yellow Urine Clarity Sl. Cloudy Urine pH 6.5 Ur Specific [place] 1.010 Urine Protein Negative Urine Glucose (UA) Normal Urine Ketones Negative Urine Occult Blood Negative Urine Nitrite Negative Urine Bilirubin Negative Urine Urobilinogen Normal Ur Leukocyte Esterase Negative 02/02/19 13:58 WBC RBC Hgb Hct MCV MCH MCHC RDW RDW Differential Plt Count MPV Immature Gran % (Auto) Neut % (Auto) Lymph % (Auto) [place] % (Auto) Eos % (Auto) Baso % (Auto) Absolute Neuts (auto) Absolute Lymphs (auto) Total Counted Specimen Type ART Sample Site R Radial pH 7.42 Bicarbonate Actual 27.0 H POC Total CO2 28 Base Excess 2 O2 Saturation 93 L ABG pCO2 42.0 ABG pO2 66 L Greg Test POS O2 Delivery Device Room Air Blood Gas Notified Whom ED MD Blood Gas Notified Time 1353 Sodium Potassium Chloride Carbon Dioxide Anion Gap BUN Creatinine Estim Creat Clear Calc Est GFR (MDRD) Af Amer Est GFR (MDRD) Non-Af BUN/Creatinine Ratio Glucose Calcium Urine Color Urine Clarity Urine pH Ur Specific [place] Urine Protein Urine Glucose (UA) Urine Ketones Urine Occult Blood Urine Nitrite Urine Bilirubin Urine Urobilinogen Ur Leukocyte Esterase - Medical Decision Making Review of old records indicate patient does have obstructive sleep apnea. With concern for lethargy will obtain an ABG to acid-base status and specifically CO2 CBC was unremarkable with no evidence of anemia. Renal function and CO2 are normal. ABG does not reveal evidence of CO2 retention. With no complaints other than generalized weakness he will be discharged home since there is no known etiology for his symptoms. His urine was negative as well. ED Disposition - Plan for ED Patient: Disposition: Home or Assisted Living Diagnosis: Weakness Referrals: Juan De La Vega III, MD [Primary Care Provider] - 3-5 Days if not improving
[2019-02-02 13:52] LABS: Absolute Lymphocyte Count 1.75 X10^3/ul (0.83-4.51); Absolute Neutrophil Count 3.7 X10^3/uL (2.0-7.7); Basophil# 0.01 X10^3/uL; Basophil% 0.2 % (0-1); Eosinophil# 0.11 X10^3/uL; Eosinophils% 1.7 % (0-5); Hematocrit 43.6 % (40-54); Hemoglobin 14.4 g/dl (13.0-16.5); Lymphocyte # 1.75 X10^3/ul (4.0); Lymphocyte % 27.7 % (19-41); Mean Corpuscular Hgb 30.4 pg (27.0-32.0); Mean Platelet Vol. 9.4 fl (6.2-12.0); Monocyte# 0.76 X10^3/uL; Neutrophil # 3.67 X10^3/uL (2.7-7.7); Neutrophil % 58.1 % (47-70); Platelet Count 182 K/mm3 (150-450); RBC Distribution Width CV 14.4 % (11.6-14.6); RBC Distribution Width SD 48.8 fl (35.1-43.9); Red Blood Count 4.74 M/mm3 (4.6-6.2); White Blood Count 6.3 K/mm3 (4.4-11.0)
[2019-02-02 13:53] LABS: POSITIVE COUNT NO; POSITIVE DIFFERENTIAL NO; POSITIVE MORPHOLOGY NO
[2019-02-02 13:58] LABS: Color, Urine Yellow (Yellow); Glucose, Dipstick Normal (Normal); Ketone-Dipstick Negative (Negative); Leukocyte Esterase-Dipstick Negative /ul (Negative); Nitrite-Dipstick Negative (Negative); Occult Blood-Urine Negative /ul (Negative); Protein-Dipstick Negative (Negative); Urine Bilirubin Dipstick Negative (Negative); Urine Clarity Sl. Cloudy (Clear); Urine Urobilinogen Normal (Normal); Urine pH 6.5 (5.0 - 8.0)
[2019-02-02 13:59] LABS: Anion Gap 7 (5-15); BUN 15 mg/dL (7-18); BUN/Creat Ratio 12.5 RATIO (10-20); Calcium,Total 8.6 mg/dL (8.5-10.1); Chloride 103 mmol/L (98-107); EST Glomerular Filtration Rate 64 mL/min (>60); Est Glom Filt Rate - Afr Amer 77 mL/min (>60); Estimated Creatinine Clearance 57.79 ml/min; Glucose 134 mg/dL (74-106); Sodium Level 138 mmol/L (136-145)
[2019-02-02 14:06] LABS: Allen Test POS; Base Excess 2 mmol/L (-2 to +2); Blood Gas Specimen Type ART; O2 Delivery Device Room Air; PO2 66 mmHG (75-100); SITE R Radial; SO2 93 % (95-99); Time Given 1353; Total Carbon Dioxide 28 mmol/L; pH 7.42 (7.35-7.45)
--- NOTE | 2019-02-02 14:39 | ED.VISSUMM ---
- ER Visit Summary Date of Service: 02/02/19 Chief Complaint: [] History of Present Illness: The patient is a 68 M [] Physical Examination: [] Test Results: [] Emergency Department Course and Treatment: [] Treatment Plan: [] Disposition: [] Impression: [] This note was generated with [employer] dictation software. It may contain incorrect words, spelling, and punctuation that were not noted in review of the chart prior to signing ED Disposition - Plan for ED Patient: Disposition: Home or Assisted Living Diagnosis: Weakness Instructions: WEAKNESS, Unk Cause Referrals: Juan De La Vega III, MD [Primary Care Provider] - 3-5 Days if not improving
[2019-02-02 15:08] VITALS: BP 81/58; PULSE 75; RESP 18; O2SAT 97
--- NOTE | 2019-02-02 15:08 | RAD_ITS ---
STUDY: X-RAY CHEST REASON FOR EXAM: Male, 68 years old. Generalized weakness. TECHNIQUE: Single AP portable view of the chest. COMPARISON: Comparison is made with prior study dated January 21, 2019. FINDINGS: EKG lead clips are seen. Hyperinflation. The lungs are clear. There is no demonstrated pleural abnormality. Sternal cerclage wires and vascular clips are present from a prior sternotomy and coronary artery bypass graft procedure (CABG). A left-sided dual-chamber pacemaker is seen. Normal mediastinum and serjio. Normal visualized pulmonary arteries. Normal visualized aortic arch and descending thoracic aorta. Normal visualized thoracic spine. Normal visualized ribs, clavicles, and shoulders. There is no demonstrated abnormality of the visualized soft tissue structures of the upper abdomen. RAD/Chest 1 View (Portable) IMPRESSION: Hyperinflation. The lungs are clear. Electronically Signed: Arcenio Leary, at 15:26 EDT , Service support ,
--- NOTE | 2019-02-02 15:10 | ED.RN ---
DR. BOLTON NOTIFIED OF PATIENTS BP OF 81/58. NEW ORDERS OBTAINED. WILL CONTINUE TO MONITOR.
[2019-02-02] MEDS: 0.9% Normal Saline 1,000 ML 1000 ML IV (15:30)
[2019-02-02 15:31] VITALS: BP 105/68
[2019-02-02 16:29] VITALS: BP 112/72; PULSE 66; RESP 18; O2SAT 94
[2019-02-02] MEDS: HYDROcodone Bitartrate/Apap 5/325 Tablet PO (16:30)
== END 2019-02-02 16:32 | disposition home or self-care (01) ==
PROVIDERS: Emergency Provider Emergency Medicine; Family Provider Family Medicine; PCP Family Medicine
DX: R53.1 Weakness (principal); R05 Cough; G47.33 Obstructive sleep apnea (adult) (pediatric); F17.200 Nicotine dependence, unspecified, uncomplicated; Z95.5 Presence of coronary angioplasty implant and graft; Z95.1 Presence of aortocoronary bypass graft; Z95.810 Presence of automatic (implantable) cardiac defibrillator; E66.01 Morbid (severe) obesity due to excess calories; M10.9 Gout, unspecified; I25.5 Ischemic cardiomyopathy; E78.5 Hyperlipidemia, unspecified; K21.9 Gastro-esophageal reflux disease without esophagitis; I50.22 Chronic systolic (congestive) heart failure; N18.3 Chronic kidney disease, stage 3 (moderate); J44.9 Chronic obstructive pulmonary disease, unspecified; I25.10 Atherosclerotic heart disease of native coronary artery without angina pectoris; I13.0 Hypertensive heart and chronic kidney disease with heart failure and stage 1 through stage 4 chronic kidney disease, or unspecified chronic kidney disease
CPT/HCPCS: 36600; 71045; 80048; 81002; 82803; 83605; 85025; 96360; 99285; J7030; A4216

== ENCOUNTER 2019-02-20 06:37 | Emergency (ER) | payer MEDICARE, MEDICAID, SELFPAY ==
[2019-02-20 06:37] VITALS: BP 110/73; PULSE 81; RESP 20; TEMP 36.6; O2SAT 94; BMI 31.7
--- NOTE | 2019-02-20 06:52 | RAD_ITS ---
STUDY: X-RAY - ACUTE ABDOMINAL SERIES REASON FOR EXAM: Male, 68 years old. Difficulty eating. TECHNIQUE: Single view of the chest. Supine, 3 view(s) of the abdomen were obtained. COMPARISON: February 02, 2019. FINDINGS: A left-sided pacemaker is noted. The lungs are clear and expanded. Normal size heart. Normal mediastinum and serjio. Normal visualized pulmonary arteries. Normal visualized aortic arch and descending thoracic aorta. There is a non-specific bowel gas pattern. The soft tissue structures of the abdomen and pelvis are unremarkable. Normal visualized osseous structures. RAD/Acute Abdomen Inc Chest IMPRESSION: Normal x-ray examination of the chest, abdomen, and pelvis. Electronically Signed: Gentry Henderson, at 7:45 EDT Tel , Service support ,
--- NOTE | 2019-02-20 06:53 | ED.VIS.GEN ---
History of Present Illness Informant: Patient Onset: Days - 3 Narrative: 3-day history of nausea and vomiting. No hematemesis. No diarrhea. States vomits every time he has any oral intake. Last bowel movement yesterday reports no flatus. No abdominal surgery history. No chest pains. Chronic dyspnea with history of COPD. No cough. No fevers. No abdominal pain. States previously with symptoms will treat his symptoms and would be able to go home. No urinary symptoms. Prior similar symptoms: Yes <Landry Landaverde - Last Filed: 02/20/19 06:53> <Willie Siddiqi - Last Filed: 02/20/19 10:30> Chief Complaint: Nausea/Vomiting Past Medical History Surgical History: angioplasty - stents x10, coronary bypass surgery, - - AICD placement, back surgery x 2, hernia repair Smoking Status: Former smoker - Family History Paternal Family History: Family History (Last Reviewed 12/24/18 @ 14:09 by TISH Blankenship) Brother CAD (coronary artery disease) Myocardial infarction Sudden cardiac Mother Cancer Hypertension Father Cancer COPD (chronic obstructive pulmonary disease) Family History: Reports: Cancer, Heart Disease Maternal Family History: Family History (Last Reviewed 12/24/18 @ 14:09 by TISH Blankenship) Brother CAD (coronary artery disease) Myocardial infarction Sudden cardiac Mother Cancer Hypertension Father Cancer COPD (chronic obstructive pulmonary disease) Family History: Reports: - - Patient notes a paternal family history of chronic lung disease, lung cancer with history of tobacco use. <Landry Landaverde - Last Filed: 02/20/19 06:53> - Family History Paternal Family History: Family History (Last Reviewed 12/24/18 @ 14:09 by Marlene Robles NP-Beth) Brother CAD (coronary artery disease) Myocardial infarction Sudden cardiac Mother Cancer Hypertension Father Cancer COPD (chronic obstructive pulmonary disease) Maternal Family History: Family History (Last Reviewed 12/24/18 @ 14:09 by TISH Blankenship) Brother CAD (coronary artery disease) Myocardial infarction Sudden cardiac Mother Cancer Hypertension Father Cancer COPD (chronic obstructive pulmonary disease) <Willie Siddiqi - Last Filed: 02/20/19 10:30> - Allergies and Home Meds Allergies/Adverse Reactions: Allergies chlorpromazine HCl [From Thorazine] Allergy (Severe, Verified 02/20/19 06:40) Hives PER PATIENT tramadol HCl [From Ultram] Allergy (Severe, Verified 02/20/19 06:40) Hives PER PATIENT codeine Allergy (Intermediate, Verified 02/20/19 06:40) Hives atorvastatin Adverse Reaction (Intermediate, Verified 02/20/19 06:40) Other LEG PAIN/CRAMPS cyclobenzaprine [From Flexeril] Adverse Reaction (Verified 02/20/19 06:40) Upset Stomach naproxen Adverse Reaction (Verified 02/20/19 06:40) Upset Stomach promethazine [From Phenergan] Adverse Reaction (Verified 02/20/19 06:40) Other CONFUSION Primary Care Physician: Juan De La Vega III, MD [Primary Care Provider] - Review of Systems All systems negative except as indicated General: Denies: Chills, Fever, Sweats Eyes: Denies: Visual changes - bilaterally, Diplopia ENT: Denies: Rhinorrhea, Sore throat Cardiovascular: Denies: Chest pain, Palpitations Respiratory: Denies: Dyspnea, Cough, Dyspnea on exertion Gastrointestinal: Reports: Nausea, Vomiting. Denies: Abdominal pain, Diarrhea, Melena, Hematochezia Genitourinary: Denies: Dysuria, Hematuria, Frequency Musculoskeletal: Denies: Back pain, Extremity Pain Skin: Denies: Rash, Wounds Neurological: Denies: Headache, Weakness, Numbness <Le,Landry - Last Filed: 02/20/19 06:53> Physical Exam Vital Signs/Narrative: Vital Signs Temp Pulse Resp BP Pulse Ox 02/20/19 06:37 97.8 F 81 20 H 110/73 94 Inital Vital Signs reviewed: Yes General: Well nourished, Well developed, No Acute Distress Head: Normocephalic, Atraumatic Eyes: Perrl, EOMI ENT: Moist mucous membranes, No rhinorrhea Neck: Supple, Nontender Cardiovascular: Regular rate, Regular rhythm, No murmurs Respiratory: No distress, CTA bilaterally, Chest nontender Abdomen: Soft, Nontender, Nondistended, Hypoactive bowel sounds Back: Nontender, Normal Inspection Extremities: Nontender, No edema Skin: Normal color, No rash Neurological: Alert, Oriented x3, Cranial nerves II-XII grossly intact, Normal Strength, Normal Sensation Psychological: Normal affect, Normal Mood <Landry Landaverde - Last Filed: 02/20/19 06:53> Vital Signs/Narrative: Vital Signs Temp Pulse Resp BP Pulse Ox 02/20/19 09:26 68 15 131/74 H 97 02/20/19 06:37 97.8 F 81 20 H 110/73 94 <Willie Siddiqi - Last Filed: 02/20/19 10:30> Diagnostic/Tx/Re-eval - Medical Decision Making Patient's vital signs stable. Nontoxic, nontender abdomen. Due to reported vomiting, IVs placed Zofran ordered we will check abdominal labs and abdominal series x-ray for further evaluation. Patient will be signed out to morning physician for reevaluation and disposition. <Landry Landaverde - Last Filed: 02/20/19 06:53> Impressions Acute Abdomen Series 02/20/19 06:52 IMPRESSION: Normal x-ray examination of the chest, abdomen, and pelvis. Electronically Signed: Gentry Santiago, at 7:45 EDT Tel , Service support , 02/20/19 06:52 Acute Abdomen Inc Chest [RAD] Stat Laboratory Results 02/20/19 02/20/19 02/20/19 07:10 07:10 07:30 WBC 6.4 RBC 5.28 Hgb 16.2 Hct 48.3 MCV 91.5 MCH 30.7 MCHC 33.5 RDW Std Deviation 45.6 H RDW Coeff of Maggie 13.7 Plt Count 215 MPV 9.7 Immature Gran % (Auto) 0.500 Neut % (Auto) 54.1 Lymph % (Auto) 33.4 [place] % (Auto) 10.1 H Eos % (Auto) 1.6 Baso % (Auto) 0.3 Absolute Neuts (auto) 3.5 Absolute Lymphs (auto) 2.14 Absolute Nucleated RBC 0.00 Nucleated RBC % 0 Sodium Cancelled 135 L Potassium Cancelled 3.3 L Chloride Cancelled 101 Carbon Dioxide Cancelled 27.0 Anion Gap Cancelled 7 BUN Cancelled 23 H Creatinine Cancelled 1.41 H Estim Creat Clear Calc Cancelled 49.18 Est GFR (MDRD) Af Amer Cancelled 64 Est GFR (MDRD) Non-Af Cancelled 53 L BUN/Creatinine Ratio Cancelled 16.3 Glucose Cancelled 130 H Calcium Cancelled 9.1 Total Bilirubin Cancelled 0.50 AST Cancelled 22 ALT Cancelled 29 Alkaline Phosphatase Cancelled 72 Total Protein Cancelled 7.2 Albumin Cancelled 3.7 Globulin Cancelled 3.5 Albumin/Globulin Ratio Cancelled 1.1 Lipase Cancelled 63 L - Medical Decision Making Other than chronic renal insufficiency that is relatively stable, his work-up is unremarkable. He is asking me why do I keep getting this he has had this 6 times and the last 6 months or so. He is a diabetic and possibly he has gastroparesis, I am not able to rule that out here. Certainly not able to rule out viral gastritis, he says is not having any diarrhea or fevers however. At this time, he is feeling better he required Phenergan as his Zofran only helped a little, but now he is feeling better and tolerating oral fluids and stable for discharge. Advised to follow-up closely. <Willie Siddiqi - Last Filed: 02/20/19 10:30> ED Disposition <Landry Landaverde - Last Filed: 02/20/19 06:53> <Willie Siddiqi - Last Filed: 02/20/19 10:30> - Plan for ED Patient: Disposition: Home or Assisted Living Diagnosis: Acute gastritis without hemorrhage Instructions: VOMITING (7y-Adult) Prescriptions: proMETHazine tablet [Phenergan] 25 mg PO Q6H PRN PRN #10 tab PRN Reason: Nausea Transmission Status: Pending to [facility] Referrals: Juan De La Vega III, MD [Primary Care Provider] - 3-5 Days
[2019-02-20] MEDS: Ondansetron 4 MG/2 ML Vial IV (07:07)
[2019-02-20 07:17] LABS: Absolute Lymphocyte Count 2.14 X10^3/uL (0.83-4.51); Absolute Neutrophil Count 3.5 X10^3/uL (2.0-7.7); Basophil# 0.02 X10^3/uL; Basophil% 0.3 % (0-1); Eosinophils% 1.6 % (0-5); Hematocrit 48.3 % (40-54); Hemoglobin 16.2 g/dL (13.0-16.5); Lymphocyte # 2.14 X10^3/ul (4.0); Lymphocyte % 33.4 % (19-41); Mean Corp Hgb Conc 33.5 g/dL (32-36); Mean Corpuscular Hgb 30.7 pg (27.0-32.0); Mean Corpuscular Volume 91.5 fL (80-94); Mean Platelet Vol. 9.7 fl (6.2-12.0); Monocyte# 0.65 X10^3/uL; Monocyte% 10.1 % (0-10); NRBC Flagged by Analyzer 0 % (0-5); Neutrophil # 3.47 X10^3/uL (2.7-7.7); Neutrophil % 54.1 % (47-70); Platelet Count 215 K/mm3 (150-450); RBC Distribution Width CV 13.7 % (11.6-14.6); RBC Distribution Width SD 45.6 fl (35.1-43.9); Red Blood Count 5.28 M/mm3 (4.6-6.2); White Blood Count 6.4 K/mm3 (4.4-11.0)
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
[2019-02-20 07:54] LABS: ALB/GLOB Ratio 1.1 RATIO (0.9-2.4); AST(SGOT) 22 U/L (15-37); Alanine Aminotransfer ALT/SGPT 29 U/L (16-61); Albumin, Serum 3.7 g/dL (3.2-5.0); Alkaline Phosphatase 72 U/L (45-117); Anion Gap 7 (5-15); BUN 23 mg/dL (7-18); BUN/Creat Ratio 16.3 RATIO (10-20); Calcium,Total 9.1 mg/dL (8.5-10.1); Chloride 101 mmol/L (98-107); Creatinine, Serum 1.41 mg/dL (0.70-1.30); EST Glomerular Filtration Rate 53 mL/min (>60); Est Glom Filt Rate - Afr Amer 64 mL/min (>60); Estimated Creatinine Clearance 49.18 ml/min; Globulin 3.5 g/dL (2.2-4.2); Glucose 130 mg/dL (74-106); Lipase 63 U/L (73-393); Potassium 3.3 mmol/L (3.5-5.1); Protein, Total 7.2 g/dL (6.4-8.2); Sodium Level 135 mmol/L (136-145)
[2019-02-20] MEDS: proMETHazine 25 MG/ML Syringe 6.25 MG IV (09:23)
[2019-02-20 09:26] VITALS: BP 131/74; PULSE 68; RESP 15; O2SAT 97
[2019-02-20 10:28] VITALS: BP 115/73; PULSE 83; RESP 14; O2SAT 94
== END 2019-02-20 10:40 | disposition home or self-care (01) ==
PROVIDERS: Emergency Provider Emergency Medicine; Family Provider Family Medicine; PCP Family Medicine
DX: K29.00 Acute gastritis without bleeding (principal); Z88.8 Allergy status to other drugs, medicaments and biological substances; Z87.891 Personal history of nicotine dependence; J44.9 Chronic obstructive pulmonary disease, unspecified
CPT/HCPCS: 74022; 80053; 83690; 85025; 96361; 96374; 96375; 99284; J7040; A4216; J2405

== ENCOUNTER 2019-02-24 11:39 | Observation (INO) | payer MEDICARE, MEDICAID, SELFPAY ==
[2019-02-24] VITALS (14 sets, daily range): BP systolic 100–126; BP diastolic 54–92; PULSE 64–86; RESP 12–22; TEMP 36.4–36.8; O2SAT 95–98; BMI 32.2; BMI 31.4
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
--- NOTE | 2019-02-24 12:48 | EKG12_ITS ---
Test Reason : Blood Pressure : / mmHG Vent. Rate : 066 BPM Atrial Rate : 066 BPM P-R Int : 158 ms QRS Dur : 114 ms QT Int : 450 ms P-R-T Axes : 057 -23 135 degrees QTc Int : 471 ms Normal sinus rhythm Incomplete left bundle branch block ST & T wave abnormality, consider lateral ischemia Prolonged QT Abnormal ECG Confirmed by SHAVONNE LUNDEBRG, LISA ([id number]), acquisitions editor LANDRY YARBROUGH ([id number] on 02/28/2019 1:13:57 PM Referred By: Christiano Billings Confirmed By:LISA MARVIN MD
--- NOTE | 2019-02-24 12:49 | ED.DCSUM_ITS ---
- ER Visit Summary Date of Service: 02/24/19 Chief Complaint: Falling asleep and short of breath History of Present Illness: The patient is a 68 M past medical history of diabetes, CVA, CAD, bypass surgery, cardiomyopathy, COPD without home O2 and cardiomyopathy with multiple cardiac stents. Patient is been short of breath the last several weeks saw his primary care physician in the office his sats were dropping in the office so they sent him into be evaluated. Primary care physician did call prior to patient's arrival. Patient denies any headache or chest pain. Physical Examination: Older male acute distress. Currently is on oxygen. Vital signs are stable afebrile. Pulse ox 97%. No hypoxia. H EENT exam unremarkable atraumatic. Pupils are unreactive light. No facial droop. Normal speech. Moist wheeze members. Neck nontender no JVD. Lungs clear to auscultation bilaterally. Heart regular rhythm no murmur. Rate about 60. Abdomen soft nontender. Patient moving all 4 extremities. Calves are nontender without edema. Neurologically is awake alert with no focal motor deficits. Throughout my exam on questioning patient will answer questions and fall asleep to wake him up at least 10 times during the exam. He has no motor deficits. Test Results: CBC White count 6. Hemoglobin 14. Hematocrit 45. No bands. Electrolytes BUN 38 creatinine 2.13 he does have known renal insufficiency. Gap of 9. Troponin normal. EKG sinus rhythm rate of 66 with incomplete left bundle branch block which is seen on a prior. EKG shows chronic changes left-sided pacemaker the prior sternotomy but otherwise no acute abnormality read both by myself and the radiologist. Emergency Department Course and Treatment: Patient be treated with IV Solu- Medrol and DuoNeb aerosol. Labs and x-ray will be obtained. On repeat exam at 1555 patient is doing well. He is awake he is not hypoxic but he falls asleep he becomes hypoxic may be undiagnosed sleep apnea. Treatment Plan: I spoke with the hospitalist. Disposition: Admission Impression: Acute dyspnea with transient hypoxia History of COPD History of diabetes History of cardiomyopathy with prior bypass surgery and cardiac stents This note was generated with [employer] dictation software. It may contain incorrect words, spelling, and punctuation that were not noted in review of the chart prior to signing ED Disposition - Plan for ED Patient: Referrals: Juan De La Vega III, MD [Primary Care Provider] -
--- NOTE | 2019-02-24 12:50 | RAD_ITS ---
STUDY: X-RAY CHEST REASON FOR EXAM: Male, 68 years old. Chest pain. TECHNIQUE: Single AP portable view of the chest. COMPARISON: Comparison is made with prior examinations dated February 02, 2019. FINDINGS: EKG electrodes are seen. There are increased markings at the lung bases slightly more prominent on the left side suggestive of bibasilar atelectasis. There is no demonstrated pleural abnormality. Sternal cerclage wires and vascular clips are present from a prior sternotomy and coronary artery bypass graft procedure (CABG). A left-sided dual-chamber pacemaker is seen. Normal mediastinum and serjio. Normal visualized pulmonary arteries. There is atherosclerotic tortuosity of the aortic arch and descending thoracic aorta. Normal visualized thoracic spine. Normal visualized ribs, clavicles, and shoulders. There is no demonstrated abnormality of the visualized soft tissue structures of the upper abdomen. RAD/Chest 1 View (Portable) IMPRESSION: Mild increased markings at the lung bases more prominent on the left side suggestive of bibasilar atelectasis. Electronically Signed: Arcenio Leary, at 13:15 EDT , Service support ,
[2019-02-24] MEDS: Ipratropium/Albuterol Sulfate 3 ML AMPUL.NEB INHALATION ×2 (13:03→19:07)
[2019-02-24 13:36] LABS: Allen Test POS; Base Excess -5 mmol/L (-2 to +2); Bicarbonate 21.7 mmol/L (22-26); Blood Gas Specimen Type ART; O2 Delivery Device Nasal Can; PO2 97 mmHG (75-100); SITE L Radial; SO2 97 % (95-99); Time Given 1320; Total Carbon Dioxide 23 mmol/L; pCO2 43.4 mmHg (35-45); pH 7.31 (7.35-7.45)
[2019-02-24] MEDS: MethylPREDNISolone 125 MG/2 ML Vial IV (13:54)
[2019-02-24 13:55] LABS: Absolute Lymphocyte Count 1.51 X10^3/uL (0.83-4.51); Absolute Neutrophil Count 3.8 X10^3/uL (2.0-7.7); Basophil# 0.04 X10^3/uL; Basophil% 0.6 % (0-1); Eosinophil# 0.12 X10^3/uL; Eosinophils% 1.9 % (0-5); Hemoglobin 14.8 g/dL (13.0-16.5); Lymphocyte # 1.51 X10^3/ul (4.0); Lymphocyte % 24.2 % (19-41); Mean Corp Hgb Conc 32.9 g/dL (32-36); Mean Corpuscular Hgb 30.6 pg (27.0-32.0); Mean Corpuscular Volume 93.2 fL (80-94); Mean Platelet Vol. 9.7 fl (6.2-12.0); Monocyte# 0.75 X10^3/uL; NRBC Flagged by Analyzer 0 % (0-5); Neutrophil # 3.82 X10^3/uL (2.7-7.7); Neutrophil % 61.1 % (47-70); Platelet Count 208 K/mm3 (150-450); RBC Distribution Width CV 13.9 % (11.6-14.6); RBC Distribution Width SD 46.6 fl (35.1-43.9); Red Blood Count 4.83 M/mm3 (4.6-6.2); White Blood Count 6.3 K/mm3 (4.4-11.0)
[2019-02-24 14:12] LABS: Anion Gap 9 (5-15); BUN 38 mg/dL (7-18); BUN/Creat Ratio 17.8 RATIO (10-20); Calcium,Total 9.4 mg/dL (8.5-10.1); Chloride 104 mmol/L (98-107); Creatinine, Serum 2.13 mg/dL (0.70-1.30); EST Glomerular Filtration Rate 33 mL/min (>60); Est Glom Filt Rate - Afr Amer 40 mL/min (>60); Estimated Creatinine Clearance 32.56 ml/min; Glucose 99 mg/dL (74-106); Potassium 4.9 mmol/L (3.5-5.1); Sodium Level 140 mmol/L (136-145)
--- NOTE | 2019-02-24 15:58 | NURSING ---
HOSPITALIST FOR DR RIVERA
--- NOTE | 2019-02-24 16:11 | NURSING ---
PCU HYPOXIA AND SOB OLEGHE
--- NOTE | 2019-02-24 16:13 | CM.ED ---
Social Work Referral: Depression/Mental Health Informant: RN, Dennis Liu Attempted to meet with patient multiple times. Patient continuing to be sleeping or falling asleep during assessment. This clinical social work therapist attempted to rouse patient, but patient stating to be tired and to have not been sleeping much due to life stress. This clinical social work therapist making hand off to social work team on acute as patient is being admitted. Social work to follow up with patient on acute for possible mental health needs. Vandana ABBIN, ELIZABETH
--- NOTE | 2019-02-24 16:28 | ED.RN ---
STEP DAUGHTER CALLED AND WANTED AN UPDATE, PT SAID IT WAS OK TO UPDATE HER. [phone]
--- NOTE | 2019-02-24 18:23 | PCM.HP.STD ---
Problem List (1) Hypoxia, sleep related Status: Acute History of Present Illness Date of Admission: 02/24/19 Chief Complaint: Shortness of breath and hypoxia The patient is a 68 year old M with a history of coronary artery disease status post stent and CABG, morbid obesity, type 2 diabetes, hypertension, stage III/IV chronic kidney disease and possible obstructive sleep apnea. Admitted from his primary care physician's office where routine checking of vital signs reviewed with patient to be hypoxic. It is said that patient had also been complaining of shortness of breath. Patient has also been very somnolent and drowsy but ABGs were fairly normal. Patient denies any chest pain, denies any increasing lower extremity swelling. Patient saturations appear to be normal when awake but on falling asleep this seemed to dip. [] Past Medical History Past Medical History (Chronic Problems): Chronic Problems (Last Reviewed 12/24/18 @ 14:09 by Marlene Robles NP-C) COPD (chronic obstructive pulmonary disease) (Chronic) Obesity (BMI 30.0-34.9) (Chronic) Nicotine dependence (Chronic) Gout (Chronic) Degenerative cervical disc (Chronic) Chronic back pain (Chronic) Presence of automatic implantable cardioverter-defibrillator (Chronic) H/O coronary artery bypass surgery (Chronic ~2008) HUMPHREY-LAD, SVG-D1, SVG-OM Chronic renal failure, stage 3 (moderate) (Chronic) Chronic systolic (congestive) heart failure (Chronic) Stented coronary artery (Chronic ~12/2016) has had 7 stents as of 06/15/17 Ischemic cardiomyopathy (Chronic) 25% ejection fraction in November 2016 V-tach (Chronic) has an AICD Benign essential hypertension (Chronic) Gastroesophageal reflux disease (Chronic) Hyperlipidemia (Chronic) Type 2 diabetes mellitus (Chronic) Morbid obesity (Chronic) CAD (coronary artery disease) (Chronic) Medical History: Medical History (Last Reviewed 12/24/18 @ 14:09 by Marlene Robles INSURANCE CLAIMS SPECIALIST-C) Nicotine dependence (Chronic) F17.200 Gout (Chronic) M10.9 Degenerative cervical disc (Chronic) M50.30 Chronic back pain (Chronic) M54.9, G89.29 Chronic renal failure, stage 3 (moderate) (Chronic) N18.3 Chronic systolic (congestive) heart failure (Chronic) I50.22 Ischemic cardiomyopathy (Chronic) I25.5 25% ejection fraction in November 2016 V-tach (Chronic) I47.2 has an AICD Benign essential hypertension (Chronic) I10 Gastroesophageal reflux disease (Chronic) K21.9 Hyperlipidemia (Chronic) E78.5 Type 2 diabetes mellitus (Chronic) E11.9 Morbid obesity (Chronic) E66.01 CAD (coronary artery disease) (Chronic) I25.10 Tubular adenoma of colon (Inactive) D12.6 Allergies chlorpromazine HCl [From Thorazine] Allergy (Severe, Verified 02/24/19 12:23) Hives PER PATIENT tramadol HCl [From Ultram] Allergy (Severe, Verified 02/24/19 12:23) Hives PER PATIENT codeine Allergy (Intermediate, Verified 02/24/19 12:23) Hives atorvastatin Adverse Reaction (Intermediate, Verified 02/24/19 12:23) Other LEG PAIN/CRAMPS cyclobenzaprine [From Flexeril] Adverse Reaction (Verified 02/24/19 12:23) Upset Stomach naproxen Adverse Reaction (Verified 02/24/19 12:23) Upset Stomach promethazine [From Phenergan] Adverse Reaction (Verified 02/24/19 12:23) Other CONFUSION Home Medications: Ambulatory Orders Medication Instructions Recorded Isosorbide Mononitrate [Imdur] 30 mg PO DAILY 02/18/17 Albuterol Aerosols [Ventolin 2.5 mg INHALATION Q4H PRN PRN 02/23/17 Aerosols] Pantoprazole Sodium [Protonix] 40 mg PO DAILY 11/15/17 Lisinopril [Zestril] 2.5 mg PO DAILY 05/21/18 Rosuvastatin Calcium [Crestor] 40 mg PO DAILY 06/16/18 Clopidogrel Bisulfate [Plavix] 75 mg PO DAILY 09/01/18 Furosemide 40 mg PO DAILY 09/01/18 Allopurinol 300 mg PO DAILY 09/20/18 Oxycodone HCl/Acetaminophen 1 tab PO 4X/DAY PRN 10/06/18 [Percocet 7.5-325 mg Tablet] Metoprolol Succinate 100 mg PO DAILY 12/01/18 Nitroglycerin 0.4 mg SL PRN PRN 12/01/18 Nicotine [Nicoderm Cq] 21 mg TRANSDERM. DAILY patch 12/03/18 Aspirin [Aspir 81] 81 mg PO DAILY #1 tablet. 01/21/19 proMETHazine tablet [Phenergan] 25 mg PO Q6H PRN PRN #10 tab 02/20/19 Albuterol Inhaler [Ventolin Hfa 2 puff INHALATION Q4H PRN PRN 02/24/19 (SP)] Spironolactone 25 mg PO DAILY 02/24/19 Surgical History: Surgical History (Last Reviewed 12/24/18 @ 14:09 by TISH Blankenship) Presence of automatic implantable cardioverter-defibrillator (Chronic) Z95.810 H/O coronary artery bypass surgery (Chronic) Onset Date: ~2008 Z95.1 HUMPHREY-LAD, SVG-D1, SVG-OM Stented coronary artery (Chronic) Onset Date: ~12/2016 has had 7 stents as of 06/15/17 Hx of hernia repair (Inactive) Z98.890, Z87.19 Previous back surgery (Inactive) Z98.890 Surgical History: angioplasty - stents x10, coronary bypass surgery, - - AICD placement, back surgery x 2, hernia repair Psychiatric History: No pertinent psych hx Smoking Status: Former smoker Tobacco Use: Cigarettes - *Family History Paternal Family History: Family History (Last Reviewed 12/24/18 @ 14:09 by TISH Blankenship) Brother CAD (coronary artery disease) Myocardial infarction Sudden cardiac Mother Cancer Hypertension Father Cancer COPD (chronic obstructive pulmonary disease) History Items: Cancer, Heart Disease Maternal Family History: Family History (Last Reviewed 12/24/18 @ 14:09 by TISH Blankenship) Brother CAD (coronary artery disease) Myocardial infarction Sudden cardiac Mother Cancer Hypertension Father Cancer COPD (chronic obstructive pulmonary disease) History Items: - - Patient notes a paternal family history of chronic lung disease, lung cancer with history of tobacco use. Review of Systems Constitutional: Reports: Fatigue. Denies: Anorexia, Chills Cardiovascular: Denies: Chest Pain Respiratory: Reports: Shortness of breath upon exertion Comment: All other systems were reviewed and essentially negative. VTE Information - Inpt Only VTE Present on Admission: No VTE Mechan Device Prophylaxis: None VTE Pharm Prophylaxis ordered?: Yes Patient Problems: Active and Suspected Problems (Last Reviewed 12/24/18 @ 14:09 by TISH Blankenship) Hypoxia, sleep related (Acute) - Physical Exam General: Alert, Oriented x3, Cooperative, No apparent distress, Lethargic, - - Very drowsy, somnolent and sleepy and having a very hard time staying awake for this interview. Obese HEENT: Atraumatic Oral: Moist Mucosa Neck: Supple, No JVD Lungs: - - Diminished breath sounds bilaterally especially in the bases. Cardiovascular: Regular rate, Regular Rhythm, Normal S1, Normal S2 Abdomen: Bowel Sounds Present, Soft, Non Tender, Non-Distended, No Hepato-splenomegaly Extremities: - - Ankle edema right more than the left. Skin: No rashes, No breakdown Musculoskeletal: No Muscle Wasting Neurological: Cranial nerves II-XII grossly intact, Neuro grossly intact Psych/Mental Status: Normal Affect, Appropriate Vital Signs Temp Pulse Resp BP Pulse Ox 98.2 F 68 16 112/70 97 02/24/19 18:20 02/24/19 18:20 02/24/19 18:20 02/24/19 18:20 02/24/19 18:20 Oxygen Flow Rate (L/min) 2 Oxygen Delivery Method Nasal Cannula Weight: 96.2 kg Body Mass Index (BMI) 32.2 Laboratory Tests Past 24 Hrs 02/24/19 02/24/19 02/24/19 13:27 13:45 13:45 WBC 6.3 RBC 4.83 Hgb 14.8 Hct 45.0 MCV 93.2 MCH 30.6 MCHC 32.9 RDW Std Deviation 46.6 H RDW Coeff of Maggie 13.9 Plt Count 208 MPV 9.7 Immature Gran % (Auto) 0.200 Neut % (Auto) 61.1 Lymph % (Auto) 24.2 [place] % (Auto) 12.0 H Eos % (Auto) 1.9 Baso % (Auto) 0.6 Absolute Neuts (auto) 3.8 Absolute Lymphs (auto) 1.51 Nucleated RBC % 0 Specimen Type ART Sample Site L Radial pH 7.31 L Bicarbonate Actual 21.7 L POC Total CO2 23 Base Excess -5 L O2 Saturation 97 ABG pCO2 43.4 ABG pO2 97 Greg Test POS O2 Delivery Device Nasal Can Liter Flow 3.0 Blood Gas Notified Whom ED Blood Gas Notified Time 1320 Sodium 140 Potassium 4.9 Chloride 104 Carbon Dioxide 27.0 Anion Gap 9 BUN 38 H Creatinine 2.13 H Estim Creat Clear Calc 32.56 Est GFR (MDRD) Af Amer 40 L Est GFR (MDRD) Non-Af 33 L BUN/Creatinine Ratio 17.8 Glucose 99 Calcium 9.4 Troponin I < 0.015 Assessment/Plan All Active Problems (Last Reviewed 12/24/18 @ 14:09 by Marlene Robles, GAVIN-C) Hypoxia, sleep related (Acute) 1. Sleep-related hypoxia. Diagnosis of obstructive sleep apnea on review of chart. Suspect that this is the cause. Appears this is not being treated. Will start patient on CPAP while here in the hospital he how he does with this. Oxygen supplementation. 2. COPD. This is definitely contributing to his hypoxia. Give breathing treatments and oxygen supplementation. 3. Questionable shortness of breath. I suspect he may be at his baseline as he has multiple comorbidities that would contribute to this symptom clearly morbid obesity, coronary artery disease and chronic systolic congestive heart failure. 4. Chronic systolic congestive heart failure secondary to ischemic cardiomyopathy. This appears clinically stable at this time and patient is not decompensated or in exacerbation. 5. Morbid obesity. Lifestyle modifications. 6. Type 2 diabetes. Will continue home regimen of treatment. 7. Hypertension. Fairly well controlled. Will continue antihypertensives. 8. Coronary artery disease status post stents and CABG. Code Visit OBSV E&M: [id number] Initial observation care L3
--- NOTE | 2019-02-24 19:38 | CPS ---
PT REFUSES TO WEAR CPAP, DOESN'T WEAR AT HOME EITHER
[2019-02-24] MEDS: oxyCODONE 5 MG Tablet 7.5 MG PO (20:43)
[2019-02-24] MEDS: Heparin Injection (Vial) 5,000 UNIT/ML VIAL 5000 UNIT SC (20:51)
[2019-02-25] VITALS (17 sets, daily range): BP systolic 91–115; BP diastolic 51–75; PULSE 68–89; RESP 16–20; TEMP 36.6–36.8; O2SAT 91–95
[2019-02-25] MEDS: Ipratropium/Albuterol Sulfate 3 ML AMPUL.NEB INHALATION ×4 (00:06→18:54)
[2019-02-25] MEDS: oxyCODONE 5 MG Tablet 7.5 MG PO ×3 (06:09→18:35)
[2019-02-25] MEDS: Heparin Injection (Vial) 5,000 UNIT/ML VIAL 5000 UNIT SC ×3 (06:11→22:19)
[2019-02-25 06:50] LABS: AST(SGOT) 22 U/L (15-37); Alanine Aminotransfer ALT/SGPT 26 U/L (16-61); Albumin, Serum 3.5 g/dL (3.2-5.0); Alkaline Phosphatase 67 U/L (45-117); Anion Gap 10 (5-15); BUN 38 mg/dL (7-18); BUN/Creat Ratio 27.5 RATIO (10-20); Calcium,Total 9.3 mg/dL (8.5-10.1); Chloride 107 mmol/L (98-107); Creatinine, Serum 1.38 mg/dL (0.70-1.30); EST Glomerular Filtration Rate 55 mL/min (>60); Est Glom Filt Rate - Afr Amer 66 mL/min (>60); Estimated Creatinine Clearance 49.57 ml/min; Globulin 3.6 g/dL (2.2-4.2); Glucose 152 mg/dL (74-106); Potassium 3.9 mmol/L (3.5-5.1); Protein, Total 7.1 g/dL (6.4-8.2); Sodium Level 141 mmol/L (136-145)
--- NOTE | 2019-02-25 07:45 | CT_ITS ---
STUDY: CT BRAIN WITHOUT CONTRAST REASON FOR EXAM: Male, 69 years old. Left-sided weakness and tremors. RADIATION DOSAGE (If Supplied By Facility): CTDIvol = ( 44.99 ) mGy, DLP = ( 796.11 ) mGycm TECHNIQUE: Transaxial CT imaging of the brain was performed without administration of intravenous contrast material. Individualized dose optimization techniques were used for this CT. COMPARISON: Comparison is made with prior examination dated July 03, 2018. FINDINGS: Normal soft tissue structures. Normal calvarium. There is mild cerebral atrophy with widening of the extra-axial spaces and ventricular dilatation. Stable area of decreased attenuation in the posterior aspect of the left parietal occipital lobes in keeping with encephalomalacia. This is unchanged. Normal basal ganglia and thalami. Normal brainstem. Normal cerebellum. There is no intracranial hemorrhage. There are no findings of an acute ischemic infarction. Atherosclerotic calcification of the vertebral arteries and cavernous portions of the internal carotid arteries bilaterally. Mucosal thickening of the ethmoid sinuses bilaterally. CT/Brain/Head without Contrast IMPRESSION: Chronic involutional changes of the brain. Stable focal encephalomalacia in the posterior left parietal occipital lobes. Electronically Signed: Arcenio Leary, at 10:27 EDT , Service support ,
--- NOTE | 2019-02-25 08:10 | NURSING ---
HAND TIRE TRIMMER CAME AND GOT RN FOR T SAYING HE WAS HAVING A STROKE. uPON ARRIVAL PT RESTING IN BED. VSS. NIH WAS 3 D/T ATAXIA OF LEG AND ARM. AND LEFT ARM WEAKNESS. DR. VENEGAS WAS PAGED AND CAME DOWN AND SAW PT. CALLED RN TO SEE WHAT WAS GOING ON. ALSO TOLD RN THAT SHE THINKS PT HAS A PROBLEM WITH HIS PERCOCET'S AT HOME. SHE COUNTED THEM BECAUSE THEY WERE JUST FILLED AND HE GETS 150, THERE WAS ONLY 54 LEFT. SHE HAS TRIED TO HIDE THEM FROM HIM BUT HE ALWAYS FINDS THEM. SHE IS GOING TO TALK TO DR. BECK ABOUT IT AND ALSO GIVE THEM TO A FAMILY MEMBER SO HE WONT HAVE ACCESS TO THEM.
[2019-02-25] MEDS: Lisinopril 2.5 MG Tablet PO (09:32)
[2019-02-25] MEDS: Metoprolol(XL)Succ 100 MG Tablet PO (09:32)
[2019-02-25] MEDS: Allopurinol 300 MG Tablet PO (09:32)
[2019-02-25] MEDS: Isosorbide Mononitrate 30 MG Tablet PO (09:32)
[2019-02-25] MEDS: Clopidogrel Bisulfate 75 MG Tablet PO (09:32)
[2019-02-25] MEDS: Furosemide 40 MG Tablet PO (09:32)
[2019-02-25] MEDS: Aspirin E.C. 81 MG Tablet PO (09:32)
[2019-02-25] MEDS: Spironolactone 25 MG Tablet PO (09:33)
[2019-02-25] MEDS: Rosuvastatin 20 MG Tablet 40 MG PO (09:33)
[2019-02-25] MEDS: Pantoprazole Sodium 40 MG Tablet PO (09:33)
--- NOTE | 2019-02-25 09:42 | PCM.PN.HOSP ---
Patient Problems: Active and Suspected Problems (Last Reviewed 12/24/18 @ 14:09 by TISH Blankenship) Hypoxia, sleep related (Acute) Subjective: Patient is a 69-year-old gentleman with multiple comorbidities who presented with progressive shortness of breath; he also did complain of multiple symptoms including tremors involving both upper and lower extremities with subjective weakness involving the left side. Also did complain of significant headache and did ask for narcotics. We did obtain call from patient's complained about patient's excessive narcotic use at home. Objective: GENERAL: Patient is cooperative HEENT: Atraumatic; moist oral mucosa EYES; Anicteric, Normal Conjunctiva NECK; supple, normal thyroid, RESPIRATORY: Diminished to auscultation CARDIOVASCULAR: Regular S1 S2, GI: soft, non-tender, normoactive bowel sounds, : No Renal angle tenderness; EXTREMITIES: No edema, no clubbing, MUSCULOSKELETAL: No Joint Tenderness; NEURO: Awake; no lateralizing signs. SKIN: No Rash PSYCH;flat affect Vitals/I&O's: Vital Signs Temp Pulse Resp BP Pulse Ox 98.1 F 77 18 115/75 94 02/25/19 07:31 02/25/19 09:32 02/25/19 07:31 02/25/19 07:31 02/25/19 07:31 Oxygen Flow Rate (L/min) 2 Oxygen Delivery Method Room Air Weight: 93.6 kg Body Mass Index (BMI) 31.4 Intake and Output for Last 24 Hours 02/23/19 02/24/19 02/25/19 23:59 23:59 23:59 Intake Total 320 / 320 400 / 400 Balance 320 / 320 400 / 400 Laboratory Results 02/24/19 13:27: Specimen Type ART, Sample Site L Radial, pH 7.31 L, Bicarbonate Actual 21.7 L, POC Total CO2 23, Base Excess -5 L, O2 Saturation 97, ABG pCO2 43.4, ABG pO2 97, Greg Test POS, O2 Delivery Device Nasal Can, Liter Flow 3.0, Blood Gas Notified Whom ED , Blood Gas Notified Time 1320 02/24/19 13:45: WBC 6.3, RBC 4.83, Hgb 14.8, Hct 45.0, MCV 93.2, MCH 30.6, MCHC 32.9, RDW Std Deviation 46.6 H, RDW Coeff of Maggie 13.9, Plt Count 208, MPV 9.7, Immature Gran % (Auto) 0.200, Neut % (Auto) 61.1, Lymph % (Auto) 24.2, [place] % (Auto) 12.0 H, Eos % (Auto) 1.9, Baso % (Auto) 0.6, Absolute Neuts (auto) 3.8, Absolute Lymphs (auto) 1.51, Nucleated RBC % 0 02/24/19 13:45: Sodium 140, Potassium 4.9, Chloride 104, Carbon Dioxide 27.0, Anion Gap 9, BUN 38 H, Creatinine 2.13 H, Estim Creat Clear Calc 32.56, Est GFR (MDRD) Af Amer 40 L, Est GFR (MDRD) Non-Af 33 L, BUN/Creatinine Ratio 17.8, Glucose 99, Calcium 9.4, Troponin I < 0.015 02/25/19 05:47: Sodium 141, Potassium 3.9, Chloride 107, Carbon Dioxide 24.0, Anion Gap 10, BUN 38 H, Creatinine 1.38 H, Estim Creat Clear Calc 49.57, Est GFR (MDRD) Af Amer 66, Est GFR (MDRD) Non-Af 55 L, BUN/Creatinine Ratio 27.5 H, Glucose 152 H, Calcium 9.3, Total Bilirubin 0.30, AST 22, ALT 26, Alkaline Phosphatase 67, Total Protein 7.1, Albumin 3.5, Globulin 3.6, Albumin/Globulin Ratio 1.0 Current Medications Acetaminophen (Tylenol) 650 mg PO Q6H PRN PRN PRN Reason: Mild Pain (1-3)/Temp > 100.7 F Albuterol/Ipratropium (Duoneb) 3 ml INHALATION Q6H.RT [facility] Last Admin: 02/25/19 06:52 Dose: 3 ml Documented by: Allopurinol (Zyloprim) 300 mg PO DAILY@0800 [facility] Last Admin: 02/25/19 09:32 Dose: 300 mg Documented by: Aspirin (Ecotrin) 81 mg PO DAILY@0800 [facility] Last Admin: 02/25/19 09:32 Dose: 81 mg Documented by: Clopidogrel Bisulfate (Plavix) 75 mg PO DAILY [facility] Last Admin: 02/25/19 09:32 Dose: 75 mg Documented by: Furosemide (Lasix) 40 mg PO DAILY [facility] Last Admin: 02/25/19 09:32 Dose: 40 mg Documented by: Heparin Sodium (Porcine) (Heparin Na) 5,000 unit SC Q8 [facility] Last Admin: 02/25/19 06:11 Dose: 5,000 unit Documented by: Isosorbide Mononitrate (Imdur) 30 mg PO DAILY [facility] Last Admin: 02/25/19 09:32 Dose: 30 mg Documented by: Lisinopril (Zestril) 2.5 mg PO DAILY [facility] Last Admin: 02/25/19 09:32 Dose: 2.5 mg Documented by: Metoprolol Succinate (Toprol Xl (Beta Sina)) 100 mg PO DAILY [facility] Last Admin: 02/25/19 09:32 Dose: 100 mg Documented by: Nicotine (Nicoderm Cq (Pbkc)) 21 mg TRANSDERM. DAILY [facility] Last Admin: 02/25/19 09:32 Dose: 21 mg Documented by: Oxycodone HCl (Oxyir) 7.5 mg PO Q6H PRN PRN PRN Reason: PAIN Last Admin: 02/25/19 06:09 Dose: 7.5 mg Documented by: Pantoprazole Sodium (Protonix) 40 mg PO DAILY [facility] Last Admin: 02/25/19 09:33 Dose: 40 mg Documented by: Rosuvastatin Calcium (Crestor) 40 mg PO DAILY [facility] Last Admin: 02/25/19 09:33 Dose: 40 mg Documented by: Sodium Chloride () 10 - 40 ml IV UD PRN PRN Reason: SALINE FLUSH Spironolactone (Aldactone) 25 mg PO DAILY [facility] Last Admin: 02/25/19 09:33 Dose: 25 mg Documented by: Medical Necessity - Tobacco Use Smoking Status: Former smoker Tobacco Use: Cigarettes Assessment/Plan All Active Problems (Last Reviewed 12/24/18 @ 14:09 by TISH Blankenship) Hypoxia, sleep related (Acute) Patient is a 69-year-old gentleman with multiple comorbidities who presented with progressive shortness of breath; 1. COPD with mild exacerbation: Admitted to monitored bed moderate managed with aerosol treatment as well as inhaled corticosteroids 2. Subjective left-sided weakness and tremors. Patient on examination did not exhibit logical signs however given his CT of the head was ordered consultation placed to neurology 3. Acute kidney injury patient kidney function did improve with rehydration 4 CAD with previous CABG and subsequent stentS placement. Optimal medical therapy 5. History of VT status post AICD placement 4. Chronic kidney disease stage III secondary to diabetic nephropathy 5. Hypertension blood pressure stable did continue with home meds 6. Chronic back pain with sciatica with pain seeking behavior patient was counseled 7. Diabetes mellitus type II; managed with diet placed on Accu-Cheks before meals and at bedtime with sliding scale coverage 8. Obesity with BMI of 32.5 weight reduction counseled 9. Dyslipidemia patient is on statin therapy at home 10. GERD patient is on PPI 11. Suspected sleep apnea 12. Gout On allopurinol 13. DVT prophylaxis SC Heparin Active Medications Acetaminophen (Tylenol) 650 mg PO Q6H PRN PRN PRN Reason: Mild Pain (1-3)/Temp > 100.7 F Albuterol/Ipratropium (Duoneb) 3 ml INHALATION Q6H.RT [facility] Last Admin: 02/25/19 06:52 Dose: 3 ml Documented by: Allopurinol (Zyloprim) 300 mg PO DAILY@0800 [facility] Last Admin: 02/25/19 09:32 Dose: 300 mg Documented by: Aspirin (Ecotrin) 81 mg PO DAILY@0800 [facility] Last Admin: 02/25/19 09:32 Dose: 81 mg Documented by: Clopidogrel Bisulfate (Plavix) 75 mg PO DAILY [facility] Last Admin: 02/25/19 09:32 Dose: 75 mg Documented by: Furosemide (Lasix) 40 mg PO DAILY [facility] Last Admin: 02/25/19 09:32 Dose: 40 mg Documented by: Heparin Sodium (Porcine) (Heparin Na) 5,000 unit SC Q8 [facility] Last Admin: 02/25/19 06:11 Dose: 5,000 unit Documented by: Isosorbide Mononitrate (Imdur) 30 mg PO DAILY [facility] Last Admin: 02/25/19 09:32 Dose: 30 mg Documented by: Lisinopril (Zestril) 2.5 mg PO DAILY [facility] Last Admin: 02/25/19 09:32 Dose: 2.5 mg Documented by: Metoprolol Succinate (Toprol Xl (Beta Sina)) 100 mg PO DAILY [facility] Last Admin: 02/25/19 09:32 Dose: 100 mg Documented by: Nicotine (Nicoderm Cq (Pbkc)) 21 mg TRANSDERM. DAILY [facility] Last Admin: 02/25/19 09:32 Dose: 21 mg Documented by: Oxycodone HCl (Oxyir) 7.5 mg PO Q6H PRN PRN PRN Reason: PAIN Last Admin: 02/25/19 06:09 Dose: 7.5 mg Documented by: Pantoprazole Sodium (Protonix) 40 mg PO DAILY [facility] Last Admin: 02/25/19 09:33 Dose: 40 mg Documented by: Rosuvastatin Calcium (Crestor) 40 mg PO DAILY [facility] Last Admin: 02/25/19 09:33 Dose: 40 mg Documented by: Sodium Chloride () 10 - 40 ml IV UD PRN PRN Reason: SALINE FLUSH Spironolactone (Aldactone) 25 mg PO DAILY [facility] Last Admin: 02/25/19 09:33 Dose: 25 mg Documented by: Code Visit OBSV E&M: 79772 Subsequent observation care L3
--- NOTE | 2019-02-25 12:50 | CASEMGMT ---
DENYS met with patient, introduced self and role at [facility]. DENYS told patient SW wanted to check in with him for depression. Patient was open to talking with SW. He opened up quite a bit and shared his situation with DENYS. He is unhappy at home, he said his hates him. He can't work anymore and gets a pension that is significantly less that what he got when he was working. He feels his is mad because she can't spend money like she used to. His grandson is in assisted for drugs. His son last year. No one told him and he found out via internet. He knows he is addicted to narcotics. SW listened and provided emotional support. SW asked if he has ever been to counseling and he has not. He was open to SW giving him a list of counselors in the area. He said he doesn't drive. SW asked if he is aware of the transportation resources in the are and he is aware. SW also let him know his insurance provides transportation to app as well. DENYS gave patient a list of in network counseling agencies. DENYS asked patient if he has ever had home health. He said he has a nurse that comes out every week. He did not know the name of the agency. DENYS asked if he is on [employer] and he said yes. DENYS offered to set up home health and have a pediatric social worker come out to see him. He said no as his would listen to everything. He would rather go somewhere. DENYS called [facility] and patient is active with them. His caseworker intake is Marialuisa Arriaza ([phone]). The only service he currently has is a medical alert button. Alyssa JOHNSON [employer]
--- NOTE | 2019-02-25 14:30 | CON.PCM_ITS ---
Problem List (1) Coarse tremors Status: Acute (2) Headache Status: Chronic Reason for Consult Date of Consultation: 02/25/19 Reason for Consultation: Questionable tremors, chronic headache History of Present Illness: The patient is a 69 year old M with PMH HTN, HLD, DM, CKD, history of CVA, CAD status post CABG, ischemic cardiomyopathy, chronic systolic congestive heart failure, status post AICD, tobacco abuse, COPD, history of lumbar surgery with chronic left foot drop, obesity admitted with dyspnea and hypoxia. Neurologist been consulted with as patient has been complaining of tremors. Per patient the tremor started only yesterday 02/24/2019 and he feels his hands and legs shake. No witnessed seizures. He also complains of generalized headache, without any photophobia phonophobia, nausea or visual disturbances. He denies any focal motor weakness, bradykinesia, hallucinations, sensory loss, visual disturbances or speech disturbances. Per documentation he has been asking for narcotics. He does complain of chronic neck pain, chronic low back pain with radicular symptoms. Per patient he denies any falls, has chronic left foot drop, does not use a cane or walker to ambulate. On aspirin and Plavix at baseline. [] Past Medical History Past Medical History (Chronic Problems): Chronic Problems (Last Reviewed 12/24/18 @ 14:09 by Marlene Robles NP-C) Headache (Chronic) COPD (chronic obstructive pulmonary disease) (Chronic) Obesity (BMI 30.0-34.9) (Chronic) Nicotine dependence (Chronic) Gout (Chronic) Degenerative cervical disc (Chronic) Chronic back pain (Chronic) Presence of automatic implantable cardioverter-defibrillator (Chronic) H/O coronary artery bypass surgery (Chronic ~2008) HUMPHREY-LAD, SVG-D1, SVG-OM Chronic renal failure, stage 3 (moderate) (Chronic) Chronic systolic (congestive) heart failure (Chronic) Stented coronary artery (Chronic ~12/2016) has had 7 stents as of 06/15/17 Ischemic cardiomyopathy (Chronic) 25% ejection fraction in November 2016 V-tach (Chronic) has an AICD Benign essential hypertension (Chronic) Gastroesophageal reflux disease (Chronic) Hyperlipidemia (Chronic) Type 2 diabetes mellitus (Chronic) Morbid obesity (Chronic) CAD (coronary artery disease) (Chronic) Medical History: Medical History (Last Reviewed 12/24/18 @ 14:09 by Marlene Robles NP-C) Nicotine dependence (Chronic) F17.200 Gout (Chronic) M10.9 Degenerative cervical disc (Chronic) M50.30 Chronic back pain (Chronic) M54.9, G89.29 Chronic renal failure, stage 3 (moderate) (Chronic) N18.3 Chronic systolic (congestive) heart failure (Chronic) I50.22 Ischemic cardiomyopathy (Chronic) I25.5 25% ejection fraction in November 2016 V-tach (Chronic) I47.2 has an AICD Benign essential hypertension (Chronic) I10 Gastroesophageal reflux disease (Chronic) K21.9 Hyperlipidemia (Chronic) E78.5 Type 2 diabetes mellitus (Chronic) E11.9 Morbid obesity (Chronic) E66.01 CAD (coronary artery disease) (Chronic) I25.10 Tubular adenoma of colon (Inactive) D12.6 Allergies chlorpromazine HCl [From Thorazine] Allergy (Severe, Verified 02/24/19 12:23) Hives PER PATIENT tramadol HCl [From Ultram] Allergy (Severe, Verified 02/24/19 12:23) Hives PER PATIENT codeine Allergy (Intermediate, Verified 02/24/19 12:23) Hives atorvastatin Adverse Reaction (Intermediate, Verified 02/24/19 12:23) Other LEG PAIN/CRAMPS cyclobenzaprine [From Flexeril] Adverse Reaction (Verified 02/24/19 12:23) Upset Stomach naproxen Adverse Reaction (Verified 02/24/19 12:23) Upset Stomach promethazine [From Phenergan] Adverse Reaction (Verified 02/24/19 12:23) Other CONFUSION Home Medications: Ambulatory Orders Medication Instructions Recorded Isosorbide Mononitrate [Imdur] 30 mg PO DAILY 02/18/17 Albuterol Aerosols [Ventolin 2.5 mg INHALATION Q4H PRN PRN 02/23/17 Aerosols] Pantoprazole Sodium [Protonix] 40 mg PO DAILY 11/15/17 Lisinopril [Zestril] 2.5 mg PO DAILY 05/21/18 Rosuvastatin Calcium [Crestor] 40 mg PO DAILY 06/16/18 Clopidogrel Bisulfate [Plavix] 75 mg PO DAILY 09/01/18 Furosemide 40 mg PO DAILY 09/01/18 Allopurinol 300 mg PO DAILY 09/20/18 Oxycodone HCl/Acetaminophen 1 tab PO 4X/DAY PRN 10/06/18 [Percocet 7.5-325 mg Tablet] Metoprolol Succinate 100 mg PO DAILY 12/01/18 Nitroglycerin 0.4 mg SL PRN PRN 12/01/18 Nicotine [Nicoderm Cq] 21 mg TRANSDERM. DAILY patch 12/03/18 Aspirin [Aspir 81] 81 mg PO DAILY #1 tablet. 01/21/19 proMETHazine tablet [Phenergan] 25 mg PO Q6H PRN PRN #10 tab 02/20/19 Albuterol Inhaler [Ventolin Hfa 2 puff INHALATION Q4H PRN PRN 02/24/19 (SP)] Spironolactone 25 mg PO DAILY 02/24/19 Surgical History: Surgical History (Last Reviewed 12/24/18 @ 14:09 by TISH Blankenship) Presence of automatic implantable cardioverter-defibrillator (Chronic) Z95.810 H/O coronary artery bypass surgery (Chronic) Onset Date: ~2008 Z95.1 HUMPHREY-LAD, SVG-D1, SVG-OM Stented coronary artery (Chronic) Onset Date: ~12/2016 has had 7 stents as of 06/15/17 Hx of hernia repair (Inactive) Z98.890, Z87.19 Previous back surgery (Inactive) Z98.890 Surgical History: angioplasty - stents x10, coronary bypass surgery, - - AICD placement, back surgery x 2, hernia repair Psychiatric History: No pertinent psych hx Lives: Spouse/ Significant Other Smoking Status: Former smoker Tobacco Use: Cigarettes Alcohol: None Drugs: None - *Family History Paternal Family History: Family History (Last Reviewed 12/24/18 @ 14:09 by TISH Blankenship) Brother CAD (coronary artery disease) Myocardial infarction Sudden cardiac Mother Cancer Hypertension Father Cancer COPD (chronic obstructive pulmonary disease) History Items: Cancer, Heart Disease Maternal Family History: Family History (Last Reviewed 12/24/18 @ 14:09 by TISH Blankenship) Brother CAD (coronary artery disease) Myocardial infarction Sudden cardiac Mother Cancer Hypertension Father Cancer COPD (chronic obstructive pulmonary disease) History Items: - - Patient notes a paternal family history of chronic lung disease, lung cancer with history of tobacco use. Review of Systems Constitutional: Reports: - - Complete ROS negative except as documented in HPI Patient Problems: Active and Suspected Problems (Last Reviewed 12/24/18 @ 14:09 by TISH Blankenship) Hypoxia, sleep related (Acute) Coarse tremors (Acute) - Physical Exam General: Alert HEENT: Normocephalic Neck: Supple Lungs: Normal air movement Cardiovascular: Normal S1, Normal S2 Abdomen: Bowel Sounds Present Extremities: No cyanosis Neurological: - - Conscious, alert, CN II through XII grossly intact, power 5 out of 5 both upper and lower extremities except chronic left foot drop, no sensory loss, no cerebellar signs, gait deferred, reflexes + B/L B/S/T/K/A, tone normal both upper extremities, no resting tremors but patient was shaking his leg and arms voluntarily intermittently. Psych/Mental Status: Normal Affect Vital Signs Temp Pulse Resp BP Pulse Ox 98.3 F 89 16 107/67 95 02/25/19 11:14 02/25/19 13:21 02/25/19 13:21 02/25/19 11:14 02/25/19 11:14 Oxygen Flow Rate (L/min) 2 Oxygen Delivery Method Room Air Weight: 93.6 kg Body Mass Index (BMI) 31.4 Intake and Output for Last 24 Hours 02/23/19 02/24/19 02/25/19 23:59 23:59 23:59 Intake Total 320 / 320 800 / 800 Balance 320 / 320 800 / 800 Laboratory Tests Past 24 Hrs 02/25/19 05:47 Sodium 141 Potassium 3.9 Chloride 107 Carbon Dioxide 24.0 Anion Gap 10 BUN 38 H Creatinine 1.38 H Estim Creat Clear Calc 49.57 Est GFR (MDRD) Af Amer 66 Est GFR (MDRD) Non-Af 55 L BUN/Creatinine Ratio 27.5 H Glucose 152 H Calcium 9.3 Total Bilirubin 0.30 AST 22 ALT 26 Alkaline Phosphatase 67 Total Protein 7.1 Albumin 3.5 Globulin 3.6 Albumin/Globulin Ratio 1.0 Assessment/Plan All Active Problems (Last Reviewed 12/24/18 @ 14:09 by Marlene Robles NP-C) Hypoxia, sleep related (Acute) Coarse tremors (Acute) The patient is a 69 year old M with PMH HTN, HLD, DM, CKD, history of CVA, CAD status post CABG, ischemic cardiomyopathy, chronic systolic congestive heart failure, status post AICD, tobacco abuse, COPD, history of lumbar surgery with chronic left foot drop, obesity admitted with dyspnea and hypoxia. Neurologist been consulted with as patient has been complaining of tremors. Per patient the tremor started only yesterday 02/24/2019 and he feels his hands and legs shake. No witnessed seizures. He also complains of generalized headache, without any photophobia phonophobia, nausea or visual disturbances. He denies any focal motor weakness, bradykinesia, hallucinations, sensory loss, visual disturbances or speech disturbances. Per documentation he has been asking for narcotics. He does complain of chronic neck pain, chronic low back pain with radicular symptoms. Per patient he denies any falls, has chronic left foot drop, does not use a cane or walker to ambulate. On aspirin and Plavix at baseline. Impression Tremors possibly medication induced versus withdrawal symptom Headache?chronic daily headache with analgesic abuse headache Plan ?Check CT lumbar spine without contrast ?We will hold off any treatment for the tremors at present. ?ESR, vitamin B12 level and TSH ?Medrol Dosepak use as directed at discharge if no contraindication. ?PT/OT ?GI/DVT prophylaxis ?Fall precautions ?Further medical management per hospitalist team ?Please call with questions if any ?Thank you for allowing us to participate in patient's care and management This note has been generated using [employer] dictation software. It may contain incorrect words, spellings or punctuation's that were not noted in the review of the note prior to signing. Code Visit Inpatient E&M: 72992 Init Hosp L3
--- NOTE | 2019-02-25 14:47 | CT_ITS ---
STUDY: CT CERVICAL SPINE WITHOUT CONTRAST REASON FOR EXAM: Male, 69 years old. Neck pain RADIATION DOSAGE (If Supplied By Facility): CTDIvol = ( 33.50 ) mGy, DLP = ( 694.78 ) mGycm TECHNIQUE: High resolution transaxial imaging was performed without contrast material. Sagittal and coronal images were reconstructed. Individualized dose optimization techniques were used for this CT. COMPARISON: CT cervical spine 07/03/2018 FINDINGS: Normal craniovertebral junction. There are degenerative changes at C1-C2.. Normal odontoid process. Normal cervical lordosis. Normal vertebral bodies and posterior osseous elements. There are mild multilevel Schmorl's nodes. C2-3: Normal endplates. Normal disc height and morphology. Normal central canal and intervertebral neuroforamina. C3-4: There is mild posterior bulging annulus at C3-C4 without disc protrusion. There is no central canal stenosis or right foraminal stenosis, there is borderline left foraminal stenosis. There are moderate left facet degenerative changes. C4-5: There is significant disc space narrowing with mild posterior disc osteophyte complex mild cord compression mild central stenosis with uncinate hypertrophy. There are Moderate facet degenerative changes. There is mild left foraminal stenosis. There is moderate right foraminal stenosis. C5-6: There is mild posterior bulging disc osteophyte complex there is significant uncinate hypertrophy. There is moderate to severe right facet degenerative changes. There is mild left facet degenerative changes. There is mild right foraminal stenosis. There is no left foraminal stenosis or central canal stenosis C6-7: There is no focal disc protrusion. There are moderate facet degenerative changes. There is no central canal or foraminal stenosis. There is mild increased loss of height through the superior endplate of C7. C7-T1: Normal disc height and morphology. Normal central canal and intervertebral neuroforamina. Normal visualized soft tissue structures. CT/Spine Cervical without Contras IMPRESSION: Significant multilevel spondylosis as above Slight increased loss of height of the superior endplate of C7 which most likely represents progression of degenerative changes, however subtle endplate fracture cannot be excluded Electronically Signed: Shimon Read, at 16:23 EDT Tel , Service support ,
--- NOTE | 2019-02-25 14:47 | CT_ITS ---
STUDY: CT LUMBAR SPINE WITHOUT CONTRAST REASON FOR EXAM: Male, 69 years old. Back pain RADIATION DOSAGE (If Supplied By Facility): CTDIvol = ( 30.00 ) mGy, DLP = ( 719.66 ) mGycm TECHNIQUE: The patient was scanned in a multi detector CT scanner. High resolution transaxial imaging was performed. Sagittal and coronal images were reconstructed. Individualized dose optimization techniques were used for this CT. COMPARISON: CT lumbar spine 12/07/2017 FINDINGS: Normal lumbar lordosis. There is no substantial scoliosis. Normal vertebrae of the lumbar spine. L1-2: There is disc space narrowing. There is mild posterior disc osteophyte complex. There is Mild central canal narrowing. Mild right lateral foraminal stenosis. There is no left foraminal stenosis. There is slight enlargement subchondral geode inferior endplate of L1 L2-3: There is disc space narrowing. There is mild posterior disc osteophyte complex. Mild central canal stenosis. There is no left foraminal stenosis. There is moderate right lateral foraminal stenosis there is no change. L3-4: There is disc space narrowing with left posterior lateral disc osteophyte complex. There is mild increased sclerosis inferior endplate of L3. There is mild to moderate central canal stenosis. There is significant ligamentous hypertrophy. Mild right foraminal stenosis. There is moderate left foraminal stenosis L4-5: There is posterior bulging annulus with small inferior disc extrusion. There is significant ligamentous hypertrophy. There is stable mild to moderate central canal stenosis. There is moderate bilateral foraminal stenosis. There is no change. L5-S1: There is disc space narrowing with posterior disc osteophyte complex. Mild central canal stenosis. There may be a left laminectomy defect. There is stable moderate bilateral foraminal stenosis. There is stable moderate facet degenerative changes. No change. Normal visualized paraspinous soft tissue structures. CT/Spine Lumbar without Contrast IMPRESSION: There is mild worsening degenerative changes.. Multilevel spondylosis most significant at L4-L5 with posterior bulging annulus with small inferior disc extrusion. There is no change at this level. There is significant ligamentous hypertrophy. There is stable mild to moderate central canal stenosis. There is moderate bilateral foraminal stenosis Possible left laminectomy defect at L5 this should be correlated with surgical history Electronically Signed: Shimon Read, at 22:08 EDT Tel , Service support ,
--- NOTE | 2019-02-25 14:59 | CASEMGMT ---
LEONIE JEAN-BAPTISTE Note: Intro role of CM to patient and WAY form explained re: Observation status for treatment of COPD. Explained hospitalization will be paid per? insurance policy for Outpatient billing?and condition will continue to be evaluated for Inpt necessity. Also let pt know that [facility] sends paper in the billing packet with their phone number if questions arise. Discussed Pharmacy section of WAY form and self administered medication guideline.? Pt verbalizes understanding and does not have further questions. Form signed and placed in chart, copy to pt. AMADO HADLEY BSN CM
[2019-02-25 15:28] LABS: Vitamin B12 338 pg/mL (211-911)
[2019-02-25 15:32] LABS: Erythrocyte Sedimentation Rate 26 mm/hr (0-20)
[2019-02-26] VITALS (9 sets, daily range): BP systolic 103–120; BP diastolic 58–76; PULSE 70–82; RESP 16–20; TEMP 36.4–36.7; O2SAT 93–98
[2019-02-26] MEDS: oxyCODONE 5 MG Tablet 7.5 MG PO ×2 (01:40→07:54)
[2019-02-26] MEDS: Heparin Injection (Vial) 5,000 UNIT/ML VIAL 5000 UNIT SC (05:18)
[2019-02-26 06:16] LABS: Bedside Glucose 114 mg/dL (70-110)
[2019-02-26] MEDS: Ipratropium/Albuterol Sulfate 3 ML AMPUL.NEB INHALATION (06:51)
[2019-02-26] MEDS: Allopurinol 300 MG Tablet PO (07:53)
[2019-02-26] MEDS: Aspirin E.C. 81 MG Tablet PO (07:54)
[2019-02-26] MEDS: Furosemide 40 MG Tablet PO (09:11)
[2019-02-26] MEDS: Isosorbide Mononitrate 30 MG Tablet PO (09:11)
[2019-02-26] MEDS: Pantoprazole Sodium 40 MG Tablet PO (09:12)
[2019-02-26] MEDS: Metoprolol(XL)Succ 100 MG Tablet PO (09:12)
[2019-02-26] MEDS: Clopidogrel Bisulfate 75 MG Tablet PO (09:12)
[2019-02-26] MEDS: Spironolactone 25 MG Tablet PO (09:12)
[2019-02-26] MEDS: Rosuvastatin 20 MG Tablet 40 MG PO (09:12)
[2019-02-26] MEDS: Lisinopril 2.5 MG Tablet PO (09:13)
--- NOTE | 2019-02-26 09:22 | DCINST_ITS ---
- Discharge Diagnoses Current Active Problems: Current Active and Chronic Problems (Last Reviewed 12/24/18 @ 14:09 by TISH Blankenship) Hypoxia, sleep related (Acute) Coarse tremors (Acute) Headache (Chronic) You will use the following diet at home:: Cardiac Discharge Activity: May not drive while taking narcotic pain medications. Allergies/Adverse Reactions: Allergies chlorpromazine HCl [From Thorazine] Allergy (Severe, Verified 02/24/19 12:23) Hives PER PATIENT tramadol HCl [From Ultram] Allergy (Severe, Verified 02/24/19 12:23) Hives PER PATIENT codeine Allergy (Intermediate, Verified 02/24/19 12:23) Hives atorvastatin Adverse Reaction (Intermediate, Verified 02/24/19 12:23) Other LEG PAIN/CRAMPS cyclobenzaprine [From Flexeril] Adverse Reaction (Verified 02/24/19 12:23) Upset Stomach naproxen Adverse Reaction (Verified 02/24/19 12:23) Upset Stomach promethazine [From Phenergan] Adverse Reaction (Verified 02/24/19 12:23) Other CONFUSION Medications to take at Discharge Isosorbide Mononitrate [Imdur] 30 mg PO DAILY 02/18/17 Albuterol Aerosols [Ventolin Aerosols] 2.5 mg INHALATION Q4H PRN PRN 02/23/17 Pantoprazole Sodium [Protonix] 40 mg PO DAILY 11/15/17 Lisinopril [Zestril] 2.5 mg PO DAILY 05/21/18 Rosuvastatin Calcium [Crestor] 40 mg PO DAILY 06/16/18 Clopidogrel Bisulfate [Plavix] 75 mg PO DAILY 09/01/18 Furosemide 40 mg PO DAILY 09/01/18 Allopurinol 300 mg PO DAILY 09/20/18 Oxycodone HCl/Acetaminophen [Percocet 7.5-325 mg Tablet] 1 tab PO 4X/DAY PRN 10/06/18 Metoprolol Succinate 100 mg PO DAILY 12/01/18 Nitroglycerin 0.4 mg SL PRN PRN 12/01/18 Nicotine [Nicoderm Cq] 21 mg TRANSDERM. DAILY patch 12/03/18 Aspirin [Aspir 81] 81 mg PO DAILY #1 tablet. 01/21/19 proMETHazine tablet [Phenergan tablet] 25 mg PO Q6H PRN PRN #10 tab 02/20/19 Albuterol Inhaler [Ventolin Hfa] 2 puff INHALATION Q4H PRN PRN 02/24/19 Spironolactone 25 mg PO DAILY 02/24/19 Primary Care Physician: Juan De La Vega III, MD [Primary Care Provider] - Please follow up with your Primary Care Physician in: in 3-5 days Test Results: Test results from this visit will be discussed in further detail at your follow- up appointment, if applicable. Proposed Discharge Date: 02/26/19
--- NOTE | 2019-02-26 09:23 | PCM.DC.SUM ---
Discharge Date and Diagnosis - Problem List Patient Problems: Active and Suspected Problems (Last Reviewed 12/24/18 @ 14:09 by TISH Blankenship) Hypoxia, sleep related (Acute) Coarse tremors (Acute) Date of Admission: 02/24/19 Date of Discharge: 02/26/19 - Primary Discharge Diagnosis Active and Suspected Problems (Last Reviewed 12/24/18 @ 14:09 by TISH Blankenship) Hypoxia, sleep related (Acute) Coarse tremors (Acute) - Secondary Discharge Diagnosis Chronic Problems (Last Reviewed 12/24/18 @ 14:09 by TISH Blankenship) Headache (Chronic) COPD (chronic obstructive pulmonary disease) (Chronic) Obesity (BMI 30.0-34.9) (Chronic) Nicotine dependence (Chronic) Gout (Chronic) Degenerative cervical disc (Chronic) Chronic back pain (Chronic) Presence of automatic implantable cardioverter-defibrillator (Chronic) H/O coronary artery bypass surgery (Chronic ~2008) HUMPHREY-LAD, SVG-D1, SVG-OM Chronic renal failure, stage 3 (moderate) (Chronic) Chronic systolic (congestive) heart failure (Chronic) Stented coronary artery (Chronic ~12/2016) has had 7 stents as of 06/15/17 Ischemic cardiomyopathy (Chronic) 25% ejection fraction in November 2016 V-tach (Chronic) has an AICD Benign essential hypertension (Chronic) Gastroesophageal reflux disease (Chronic) Hyperlipidemia (Chronic) Type 2 diabetes mellitus (Chronic) Morbid obesity (Chronic) CAD (coronary artery disease) (Chronic) Hospital Course and Treatment Imaging Results: Clinical Impression(s) from Imaging Studies Chest X-Ray 02/24/19 12:50 IMPRESSION: Mild increased markings at the lung bases more prominent on the left side suggestive of bibasilar atelectasis. Electronically Signed: Arcenio Leary, at 13:15 EDT , Service support , Brain CT 02/25/19 07:45 IMPRESSION: Chronic involutional changes of the brain. Stable focal encephalomalacia in the posterior left parietal occipital lobes. Electronically Signed: Arcenio Leary, at 10:27 EDT , Service support , Cervical Spine CT 02/25/19 14:47 IMPRESSION: Significant multilevel spondylosis as above Slight increased loss of height of the superior endplate of C7 which most likely represents progression of degenerative changes, however subtle endplate fracture cannot be excluded Electronically Signed: Shimon Read, at 16:23 EDT Tel , Service support , Lumbar Spine CT 02/25/19 14:47 IMPRESSION: There is mild worsening degenerative changes.. Multilevel spondylosis most significant at L4-L5 with posterior bulging annulus with small inferior disc extrusion. There is no change at this level. There is significant ligamentous hypertrophy. There is stable mild to moderate central canal stenosis. There is moderate bilateral foraminal stenosis Possible left laminectomy defect at L5 this should be correlated with surgical history Electronically Signed: Shimon Read, at 22:08 EDT Tel , Service support , Operations: None Summary of Care Provided: Patient is a 69-year-old gentleman with multiple comorbidities who presented with progressive shortness of breath; he also did complain of multiple symptoms including tremors involving both upper and lower extremities with subjective weakness involving the left side. A 1. COPD with mild exacerbation: Admitted to monitored bed moderate managed with aerosol treatment as well as inhaled corticosteroids patient did improve with therapy charge instructed to follow-up with his primary care physician within 3 to 5 days for subsequent care 2. Subjective left-sided weakness and tremors. Patient on examination did not exhibit logical signs however given his CT of the head was ordered consultation placed to neurology CT of the head demonstrated Stable focal encephalomalacia in the posterior left parietal occipital lobes. Patient was also seen by Dr. Buck Case was discussed with him also did review his notes. Patient subjective left-sided weakness had resolved at the time of discharge 3. Acute kidney injury patient kidney function did improve with rehydration 4 CAD with previous CABG and subsequent stentS placement. Optimal medical therapy 5. History of VT status post AICD placement 4. Chronic kidney disease stage III secondary to diabetic nephropathy 5. Hypertension blood pressure stable did continue with home meds 6. Chronic back pain with sciatica with pain seeking behavior patient was counseled 7. Diabetes mellitus type II; managed with diet placed on Accu-Cheks before meals and at bedtime with sliding scale coverage 8. Obesity with BMI of 32.5 weight reduction counseled 9. Dyslipidemia patient is on statin therapy at home 10. GERD patient is on PPI 11. Suspected sleep apnea 12. Gout On allopurinol 13. DVT prophylaxis SC Heparin Patient Problems: Active and Suspected Problems (Last Reviewed 12/24/18 @ 14:09 by TISH Blankenship) Hypoxia, sleep related (Acute) Coarse tremors (Acute) Objective: GENERAL: Patient is cooperative HEENT: Atraumatic; moist oral mucosa EYES; Anicteric, Normal Conjunctiva NECK; supple, normal thyroid, RESPIRATORY: Diminished to auscultation CARDIOVASCULAR: Regular S1 S2, GI: soft, non-tender, normoactive bowel sounds, : No Renal angle tenderness; EXTREMITIES: No edema, no clubbing, MUSCULOSKELETAL: No Joint Tenderness; NEURO: Awake; no lateralizing signs. SKIN: No Rash PSYCH;flat affect - Physical Exam Vital Signs Temp Pulse Resp BP Pulse Ox 97.6 F L 72 20 H 120/64 95 02/26/19 09:08 02/26/19 09:12 02/26/19 09:08 02/26/19 09:08 02/26/19 09:08 Oxygen Flow Rate (L/min) 2 Oxygen Delivery Method Room Air Weight: 93.6 kg Body Mass Index (BMI) 31.4 Intake and Output for Last 24 Hours 02/24/19 02/25/19 02/26/19 23:59 23:59 23:59 Intake Total 320 / 320 1450 / 1690 360 / 360 Balance 320 / 320 1450 / 1690 360 / 360 Laboratory Tests Past 24 Hrs 02/25/19 02/25/19 02/25/19 05:47 05:47 05:47 ESR 26 H Vitamin B12 338 TSH 0.20 L POC Glucose 02/26/19 05:25 POC Glucose 114 H Discharge Diet: Low fat/ Low Cholesterol Discharge Activity: May not drive while taking narcotic pain medications. Home Medications: Medications to take at Discharge Isosorbide Mononitrate [Imdur] 30 mg PO DAILY 02/18/17 Albuterol Aerosols [Ventolin Aerosols] 2.5 mg INHALATION Q4H PRN PRN 02/23/17 Pantoprazole Sodium [Protonix] 40 mg PO DAILY 11/15/17 Lisinopril [Zestril] 2.5 mg PO DAILY 05/21/18 Rosuvastatin Calcium [Crestor] 40 mg PO DAILY 06/16/18 Clopidogrel Bisulfate [Plavix] 75 mg PO DAILY 09/01/18 Furosemide 40 mg PO DAILY 09/01/18 Allopurinol 300 mg PO DAILY 09/20/18 Oxycodone HCl/Acetaminophen [Percocet 7.5-325 mg Tablet] 1 tab PO 4X/DAY PRN 10/06/18 Metoprolol Succinate 100 mg PO DAILY 12/01/18 Nitroglycerin 0.4 mg SL PRN PRN 12/01/18 Nicotine [Nicoderm Cq] 21 mg TRANSDERM. DAILY patch 12/03/18 Aspirin [Aspir 81] 81 mg PO DAILY #1 tablet. 01/21/19 proMETHazine tablet [Phenergan tablet] 25 mg PO Q6H PRN PRN #10 tab 02/20/19 Albuterol Inhaler [Ventolin Hfa] 2 puff INHALATION Q4H PRN PRN 02/24/19 Spironolactone 25 mg PO DAILY 02/24/19 Primary Care Physician: Juan De La Vega III, MD [Primary Care Provider] - Please follow up with your Primary Care Physician in: in 3-5 days Disposition: Home Minutes spent on discharge:: 35 Patient Condition:: Stable Medical Necessity - Tobacco Use Smoking Status: Former smoker Tobacco Use: Cigarettes Meaningful Use Info Meaningful Use Diagnoses (Choose all that apply): None applicable Code Visit OBSV E&M: 33702 Observation care discharge
--- NOTE | 2019-02-28 11:52 | CASEMGMT ---
D/c instructions were faxed to patient's Passport CM at [facility]. Alyssa JOHNSON MSW
== END 2019-02-26 09:22 | disposition home or self-care (01) ==
LOC: ED 17:01 → PCU 19:18
PROVIDERS: Psychiatry & Neurology Neurology; Admitting Provider Internal Medicine; Emergency Provider Emergency Medicine; Family Provider Family Medicine; PCP Family Medicine; Referring Provider Internal Medicine; Visit Provider Internal Medicine
DX: G25.2 Other specified forms of tremor (principal); G47.69 Other sleep related movement disorders; I25.10 Atherosclerotic heart disease of native coronary artery without angina pectoris; J44.9 Chronic obstructive pulmonary disease, unspecified; E11.22 Type 2 diabetes mellitus with diabetic chronic kidney disease; N18.4 Chronic kidney disease, stage 4 (severe); G47.33 Obstructive sleep apnea (adult) (pediatric); G89.29 Other chronic pain; I13.0 Hypertensive heart and chronic kidney disease with heart failure and stage 1 through stage 4 chronic kidney disease, or unspecified chronic kidney disease; I50.22 Chronic systolic (congestive) heart failure; M10.9 Gout, unspecified; K21.9 Gastro-esophageal reflux disease without esophagitis; I25.5 Ischemic cardiomyopathy; N17.9 Acute kidney failure, unspecified; E66.9 Obesity, unspecified; E78.5 Hyperlipidemia, unspecified; Z68.31 Body mass index [BMI] 31.0-31.9, adult; Z71.3 Dietary counseling and surveillance; Z95.1 Presence of aortocoronary bypass graft; Z79.899 Other long term (current) drug therapy; Z79.02 Long term (current) use of antithrombotics/antiplatelets; Z95.810 Presence of automatic (implantable) cardiac defibrillator; Z87.891 Personal history of nicotine dependence
CPT/HCPCS: 36415; 36600; 70450; 71045; 72125; 72131; 80048; 80053; 82607; 82803; 82962; 84443; 84484; 85025; 85652; 93005; 94640; 96372; 96374; 99218; 99285; J7030; A4216; G0378

== ENCOUNTER 2019-03-20 10:28 | Emergency (ER) | payer MEDICARE, MEDICAID, SELFPAY ==
[2019-02-24 18:24] VITALS: BMI 31.4
[2019-03-20 10:29] VITALS: BP 99/66; PULSE 77; RESP 20; TEMP 36.6; O2SAT 89; BMI 34.3
[2019-03-20 10:32] VITALS: O2SAT 93
--- NOTE | 2019-03-20 10:54 | RAD_ITS ---
STUDY: X-RAY - LEFT KNEE REASON FOR EXAM: Male, 69 years old. Fall last night, left knee pain TECHNIQUE: 2 view(s) of the knee. COMPARISON: None. FINDINGS: Normal visualized distal femur. Normal visualized proximal tibia and fibula. Normal proximal tibiofibular articulation. Normal medial femorotibial compartment. Normal lateral femorotibial compartment. Normal patellofemoral articulation. There is no demonstrated joint effusion. Surgical clips are noted. There are vascular calcifications. RAD/Knee 1 or 2 Views IMPRESSION: No fracture demonstrated. Electronically Signed: Christian Bauman MD ([place]) at 11:45 EDT , Service support ,
--- NOTE | 2019-03-20 10:54 | RAD_ITS ---
STUDY: X-RAY - LEFT ANKLE REASON FOR EXAM: Male, 69 years old. Fall last night, left ankle pain TECHNIQUE: 3 view(s) of the ankle. COMPARISON: None. FINDINGS: Normal visualized distal tibia and fibula. Normal medial and lateral malleoli. Normal tibiotalar articulation and ankle mortise. Normal visualized talus and calcaneus. The visualized subtalar, talonavicular, calcaneocuboid and tarsal articulations are normal. The soft tissue structures are unremarkable. RAD/Ankle min 3 Views IMPRESSION: No fracture or malalignment. Electronically Signed: Christian Bauman MD ([place]) at 11:46 EDT , Service support ,
--- NOTE | 2019-03-20 10:55 | RAD_ITS ---
STUDY: X-RAY - UNILATERAL RIBS ( LEFT ) WITH CHEST REASON FOR EXAM: Male, 69 years old. Fall last night, anterior left rib pain TECHNIQUE - RIBS: 4 view(s) of the ribs. TECHNIQUE - CHEST: Frontal COMPARISON: None. FINDINGS - RIBS: Normal visualized ribs without a demonstrated fracture. FINDINGS - CHEST: The lungs are clear and expanded. There is no demonstrated pleural abnormality. Normal size heart. Two lead cardiac conduction device is seen via the left subclavian vein with lead tips projecting over the right atrium and right ventricle, respectively. Sternal wires and mediastinal surgical clips compatible with prior CABG. Normal visualized pulmonary arteries. Normal visualized aortic arch and descending thoracic aorta. There are diffuse degenerative changes of the visualized thoracolumbar spine. Normal visualized ribs, clavicles, and shoulders. There is no demonstrated abnormality of the visualized soft tissue structures of the upper abdomen. RAD/Ribs Uni Min 3V w/PA Chest IMPRESSION: RIBS: No rib fracture identified. CHEST: Nonacute x-ray examination of the chest. Electronically Signed: Christian Bauman MD ([place]) at 11:45 EDT , Service support ,
--- NOTE | 2019-03-20 10:56 | ED.VIS.FALL ---
History of Present Illness Informant: Patient Occurred: Today Mechanism/Context: Same level fall, Trip, Slip Usually ambulates: Without assistance Location: Left ribs, left knee, left ankle Quality of Pain: Sharp Current Severity: Moderate Maximum Severity: Severe Worsened by: Movement, palpation, coughing Relieved by: rest Associated Symptoms: Negative for: Parasthesias, Weakness, Loss of function, Inability to ambulate, Loss of consciousness, Amnesia Narrative: 69-year-old male with a history of coronary artery disease presents to the emergency department after a fall by squad. He had a mechanical fall at home. He is wearing a new pair of shoes and states that the rubber of the bottom of the shoe got caught on the floor. He fell on his left side. He did not have any prodromal symptoms. He did not hit his head. He did not lose consciousness. He is having pain in his left ribs knee and ankle. He was able to stand up and ambulate after this but is having pain. He is on Plavix and aspirin only. He is not short of breath. He denies any other review of systems at this time. Tetanus Immunization: Unknown Prior similar symptoms: No Recent Illness/Hospitalization: No <Piter Love - Last Filed: 03/20/19 12:11> <Cindy Pacheco - Last Filed: 03/20/19 12:55> Chief Complaint: Fall Past Medical History Prior records reviewed: Yes Past Medical History: - - Coronary artery disease Surgical History: angioplasty - stents x10, coronary bypass surgery, - - AICD placement, back surgery x 2, hernia repair Smoking Status: Current some day smoker - Family History Paternal Family History: Family History (Last Reviewed 12/24/18 @ 14:09 by TISH Blankenship) Brother CAD (coronary artery disease) Myocardial infarction Sudden cardiac Mother Cancer Hypertension Father Cancer COPD (chronic obstructive pulmonary disease) Family History: Reports: Cancer, Heart Disease Maternal Family History: Family History (Last Reviewed 12/24/18 @ 14:09 by TISH Blankenship) Brother CAD (coronary artery disease) Myocardial infarction Sudden cardiac Mother Cancer Hypertension Father Cancer COPD (chronic obstructive pulmonary disease) Family History: Reports: - - Patient notes a paternal family history of chronic lung disease, lung cancer with history of tobacco use. <Piter Love - Last Filed: 03/20/19 12:11> - Family History Paternal Family History: Family History (Last Reviewed 12/24/18 @ 14:09 by TISH Blankenship) Brother CAD (coronary artery disease) Myocardial infarction Sudden cardiac Mother Cancer Hypertension Father Cancer COPD (chronic obstructive pulmonary disease) Maternal Family History: Family History (Last Reviewed 12/24/18 @ 14:09 by TISH Blankenship) Brother CAD (coronary artery disease) Myocardial infarction Sudden cardiac Mother Cancer Hypertension Father Cancer COPD (chronic obstructive pulmonary disease) <Cindy Pacheco - Last Filed: 03/20/19 12:55> - Allergies and Home Meds Allergies/Adverse Reactions: Allergies chlorpromazine HCl [From Thorazine] Allergy (Severe, Verified 03/20/19 10:35) Hives PER PATIENT tramadol HCl [From Ultram] Allergy (Severe, Verified 03/20/19 10:35) Hives PER PATIENT codeine Allergy (Intermediate, Verified 03/20/19 10:35) Hives atorvastatin Adverse Reaction (Intermediate, Verified 03/20/19 10:35) Other LEG PAIN/CRAMPS cyclobenzaprine [From Flexeril] Adverse Reaction (Verified 03/20/19 10:35) Upset Stomach naproxen Adverse Reaction (Verified 03/20/19 10:35) Upset Stomach promethazine [From Phenergan] Adverse Reaction (Verified 03/20/19 10:35) Other CONFUSION Primary Care Physician: Juan De La Vega III, MD [Primary Care Provider] - Review of Systems All systems negative except as indicated Respiratory: Reports: - - left rib pain Musculoskeletal: Reports: Swelling, Extremity Pain <Piter Love - Last Filed: 03/20/19 12:11> Physical Exam Vital Signs/Narrative: Vital Signs Temp Pulse Resp BP Pulse Ox 03/20/19 10:32 93 03/20/19 10:29 97.9 F 77 20 H 99/66 89 Inital Vital Signs reviewed: Yes General: Well nourished, Well developed Head: Normocephalic, Atraumatic Eyes: Perrl, EOMI ENT: No hemotympanum or drainage. Negative for: Hemotympanum, Nasal trauma, Nasal septal hematoma Neck: Nontender, Full ROM. Negative for: Spinal Tenderness, Paraspinal Tenderness Cardiovascular: Regular rate, Regular rhythm Respiratory: No distress, CTA bilaterally, Chest tenderness. Negative for: Retractions Abdomen: Soft, Nontender, Nondistended, Normal bowel sounds, No masses Back: Nontender, Negative SLR - Right, Negative SLR - Left. Negative for: CVA Tenderness - Right, CVA Tenderness - Left Skin: Normal color, No rash, No Trauma Neurological: Alert, Oriented x3, Cranial nerves II-XII grossly intact, Normal Strength, Normal Sensation <Piter Love - Last Filed: 03/20/19 12:11> Vital Signs/Narrative: Vital Signs Temp Pulse Resp BP Pulse Ox 03/20/19 10:32 93 03/20/19 10:29 97.9 F 77 20 H 99/66 89 <Cindy Pacheco - Last Filed: 03/20/19 12:55> Diagnostic/Tx/Re-eval - Medical Decision Making Pain treated with oxycodone. X-rays of the chest with a rib series on the left, left knee and ankle show no acute findings. He will be discharged home. He will be given an incentive spirometer. He has Percocet to take at home for pain. He will rest ice and follow-up with primary care or return to the emergency department for worsening symptoms which we discussed. <Piter Love - Last Filed: 03/20/19 12:11> - Medical Decision Making With Piter, patient reports he fell tripping on his shoes on exam he has pain to the left chest lungs are clear heart tones are normal no abdominal pain no crepitance subcu air he has a discomfort to the left knee ankle and foot he is able to fully extend and flex the knee dorsi and plantarflex the foot he has a contusion to the second toe, chronic neuropathy to lower extremities his neurologic exam is baseline for him he has no other complaints see x-ray reports in full chart for treatment details <Cindy Pacheco - Last Filed: 03/20/19 12:55> ED Disposition <Piter Love - Last Filed: 03/20/19 12:11> <Cindy Pacheco - Last Filed: 03/20/19 12:55> - Plan for ED Patient: Disposition: Home or Assisted Living Diagnosis: Contusion of rib on left side, Contusion of left knee, Contusion of left ankle Instructions: CONTUSION, Lower Extremity, Rib Contusion Referrals: Juan De La Vega III, MD [Primary Care Provider] -
[2019-03-20] MEDS: oxyCODONE 5 MG Tablet PO ×2 (11:06→12:50)
--- NOTE | 2019-03-20 11:15 | RAD_ITS ---
STUDY: X-RAY - LEFT FOOT CLINICAL: Male, 69 years old. Fall, abrasions TECHNIQUE: 3 view(s) of the foot. COMPARISON: None. FINDINGS: There is a plantar calcaneal spur. Normal visualized subtalar, talonavicular, calcaneocuboid, tarsal and tarsometatarsal articulations. Obliquely oriented nondisplaced fracture of the fifth metatarsal is seen on the oblique view. Normal metatarsophalangeal joint of the great toe. Normal tibial and fibular sesamoid bones. Normal interphalangeal joint of the great toe. Normal phalanges of the great toe. Normal second through fifth metatarsophalangeal joints. Normal interphalangeal joints and phalanges of the lesser toes. There is soft tissue swelling of the lateral foot. RAD/Foot min 3 Views IMPRESSION: 1. Nondisplaced fifth metatarsal fracture. Electronically Signed: Christian Bauman MD ([place]) at 12:16 EDT , Service support ,
[2019-03-20 12:50] VITALS: BP 101/67; PULSE 68; RESP 18; O2SAT 91
== END 2019-03-20 13:00 | disposition home or self-care (01) ==
PROVIDERS: Emergency Provider Physician Assistant Medical; Family Provider Family Medicine; PCP Family Medicine
DX: S20.212A Contusion of left front wall of thorax, initial encounter (principal); S80.02XA Contusion of left knee, initial encounter; S90.02XA Contusion of left ankle, initial encounter; S92.355A Nondisplaced fracture of fifth metatarsal bone, left foot, initial encounter for closed fracture; W01.0XXA Fall on same level from slipping, tripping and stumbling without subsequent striking against object, initial encounter; I25.10 Atherosclerotic heart disease of native coronary artery without angina pectoris; Z79.02 Long term (current) use of antithrombotics/antiplatelets; Z79.82 Long term (current) use of aspirin; Z82.49 Family history of ischemic heart disease and other diseases of the circulatory system; Z88.6 Allergy status to analgesic agent; Z88.8 Allergy status to other drugs, medicaments and biological substances; Z95.810 Presence of automatic (implantable) cardiac defibrillator
CPT/HCPCS: 71101; 73560; 73610; 73630; 99284

== ENCOUNTER 2019-03-24 08:14 | Emergency (ER) | payer MEDICARE, MEDICAID, SELFPAY ==
[2019-03-24 08:14] VITALS: BP 101/67; PULSE 89; RESP 18; TEMP 36.4; O2SAT 96; BMI 33.2
--- NOTE | 2019-03-24 08:21 | EKG12_ITS ---
Test Reason : NAUSEA/VOMITING Blood Pressure : / mmHG Vent. Rate : 083 BPM Atrial Rate : 083 BPM P-R Int : 152 ms QRS Dur : 104 ms QT Int : 404 ms P-R-T Axes : 052 -12 140 degrees QTc Int : 474 ms Sinus rhythm with sinus arrhythmia with occasional Premature ventricular complexes ST & T wave abnormality, consider lateral ischemia Prolonged QT Abnormal ECG Confirmed by SKYLER LUNDBERG, [place] ([id number]), magazine editor HARINI STONE ([id number]) on 03/29/2019 10:24:12 AM Referred By: SRINIVAS Confirmed By:SHAKIRA HOLLAND MD
--- NOTE | 2019-03-24 08:36 | ED.VIS.GEN ---
History of Present Illness Chief Complaint: Nausea/Vomiting Informant: Patient Onset: - Current Severity: Mild Narrative: Patient indicates he is having vomiting and intermittent crampy abdominal pain for last 4 days, he has had this for many years, has had extensive evaluation including multiple GI scopes, CAT scans, he was referred to surgery, the evaluation showed no obvious explanation for these intermittent episodes of vomiting. He was told at one time he has a malfunctioning gallbladder but given his CABG and cardiovascular history cholecystectomy is not advised. He denies pain in his right upper quadrant. Indicates the vomiting he is having is typical and usual of the intermittent syndrome of vomiting he is had of her last number of years, he has had no fever no cough no antibiotics no exposure tainted food or sick individuals his bowel habits been normal he just reports a constant sense of nausea Past Medical History - Allergies and Home Meds Allergies/Adverse Reactions: Allergies chlorpromazine HCl [From Thorazine] Allergy (Severe, Verified 03/24/19 08:17) Hives PER PATIENT tramadol HCl [From Ultram] Allergy (Severe, Verified 03/24/19 08:17) Hives PER PATIENT codeine Allergy (Intermediate, Verified 03/24/19 08:17) Hives atorvastatin Adverse Reaction (Intermediate, Verified 03/24/19 08:17) Other LEG PAIN/CRAMPS cyclobenzaprine [From Flexeril] Adverse Reaction (Verified 03/24/19 08:17) Upset Stomach naproxen Adverse Reaction (Verified 03/24/19 08:17) Upset Stomach promethazine [From Phenergan] Adverse Reaction (Verified 03/24/19 08:17) Other CONFUSION Primary Care Physician: Juan De La Vega III, MD [Primary Care Provider] - Past Medical History: - - CABG, as above Surgical History: angioplasty - stents x10, coronary bypass surgery, - - AICD placement, back surgery x 2, hernia repair Smoking Status: Current some day smoker - Family History Paternal Family History: Family History (Last Reviewed 12/24/18 @ 14:09 by TISH Blankenship) Brother CAD (coronary artery disease) Myocardial infarction Sudden cardiac Mother Cancer Hypertension Father Cancer COPD (chronic obstructive pulmonary disease) Family History: Reports: Cancer, Heart Disease Maternal Family History: Family History (Last Reviewed 12/24/18 @ 14:09 by TISH Blankenship) Brother CAD (coronary artery disease) Myocardial infarction Sudden cardiac Mother Cancer Hypertension Father Cancer COPD (chronic obstructive pulmonary disease) Family History: Reports: - - Patient notes a paternal family history of chronic lung disease, lung cancer with history of tobacco use. Review of Systems General: Denies: Chills, Fever, Sweats Eyes: Denies: Visual changes - bilaterally, Diplopia ENT: Denies: Rhinorrhea, Sore throat Cardiovascular: Denies: Chest pain, Palpitations Respiratory: Denies: Dyspnea, Cough, Dyspnea on exertion Gastrointestinal: Reports: Nausea, Vomiting. Denies: Abdominal pain, Diarrhea, Melena, Hematochezia Genitourinary: Denies: Dysuria, Hematuria, Frequency Musculoskeletal: Denies: Back pain, Extremity Pain Skin: Denies: Rash, Wounds Neurological: Denies: Headache, Weakness, Numbness Physical Exam Vital Signs/Narrative: Vital Signs Temp Pulse Resp BP Pulse Ox 03/24/19 08:14 97.6 F L 89 18 101/67 96 General: Well nourished, Well developed, No Acute Distress Head: Normocephalic, Atraumatic Eyes: Perrl, EOMI ENT: Moist mucous membranes, No rhinorrhea Neck: Supple, Nontender Cardiovascular: Regular rate, Regular rhythm, No murmurs Respiratory: No distress, CTA bilaterally, Chest nontender Abdomen: Soft, Nontender, Nondistended, Normal bowel sounds Back: Nontender, Normal Inspection Extremities: Nontender, No edema Skin: Normal color, No rash Neurological: Alert, Oriented x3, Cranial nerves II-XII grossly intact, Normal Strength, Normal Sensation Psychological: Normal affect, Normal Mood Diagnostic/Tx/Re-eval - Medical Decision Making Vital signs are unremarkable the abdomen soft there is no tenderness or guarding organomegaly no right upper quadrant pain clinically he looks well except he complains persistently of nausea we discussed ED work-up he agrees he does not wish to undergo any imaging studies as he reports he has had this before the unremarkable IV fluid screening labs IV meds Patient's EKG shows a sinus rhythm rate about 80 MO interval QRS duration other intervals are unremarkable no acute injury Reevaluation patient is feeling better, the patient's labs CBC chemistry are generally unremarkable see all those reports his creatinine is 1.39 near his baseline he understands to follow-up with his outpatient providers who have been helping him manage his chronic recurring problem to be given Zofran to use and return for change in symptoms Home stable Final impression Acute recurrent nausea resolved etiology unclear ED Disposition - Plan for ED Patient: Diagnosis: Vomiting Instructions: VOMITING AND DIARRHEA, Nonspecific (Adult) Prescriptions: Ondansetron [Zofran Odt] 4 mg PO Q8H PRN PRN #10 tab PRN Reason: Nausea Prescription Printed Referrals: Juan De La Vega III, MD [Primary Care Provider] -
[2019-03-24 08:48] LABS: Absolute Lymphocyte Count 1.33 X10^3/uL (0.83-4.51); Absolute Neutrophil Count 5.4 X10^3/uL (2.0-7.7); Basophil# 0.02 X10^3/uL; Basophil% 0.3 % (0-1); Eosinophil# 0.12 X10^3/uL; Eosinophils% 1.5 % (0-5); Hematocrit 41.8 % (40-54); Hemoglobin 13.9 g/dL (13.0-16.5); Lymphocyte # 1.33 X10^3/ul (4.0); Lymphocyte % 17.2 % (19-41); Mean Corp Hgb Conc 33.3 g/dL (32-36); Mean Corpuscular Hgb 29.8 pg (27.0-32.0); Mean Corpuscular Volume 89.7 fL (80-94); Mean Platelet Vol. 9.2 fl (6.2-12.0); Monocyte# 0.81 X10^3/uL; Monocyte% 10.5 % (0-10); NRBC Flagged by Analyzer 0 % (0-5); Neutrophil # 5.44 X10^3/uL (2.7-7.7); Neutrophil % 70.1 % (47-70); Platelet Count 203 K/mm3 (150-450); RBC Distribution Width CV 14.4 % (11.6-14.6); RBC Distribution Width SD 46.6 fl (35.1-43.9); Red Blood Count 4.66 M/mm3 (4.6-6.2); White Blood Count 7.8 K/mm3 (4.4-11.0)
[2019-03-24] MEDS: Ondansetron 4 MG/2 ML Vial IV ×2 (09:07→10:21)
[2019-03-24] MEDS: Morphine 4 MG/ML Syringe IV (09:08)
[2019-03-24] MEDS: 0.9% Normal Saline 1,000 ML 125 ML IV (09:08)
[2019-03-24 09:10] LABS: AST(SGOT) 32 U/L (15-37); Alanine Aminotransfer ALT/SGPT 43 U/L (16-61); Albumin, Serum 3.6 g/dL (3.2-5.0); Alkaline Phosphatase 75 U/L (45-117); Anion Gap 12 (5-15); BUN 19 mg/dL (7-18); BUN/Creat Ratio 13.7 RATIO (10-20); Bilirubin, Direct 0.11 mg/dL (0.00-0.30); Calcium,Total 9.3 mg/dL (8.5-10.1); Chloride 101 mmol/L (98-107); Creatinine, Serum 1.39 mg/dL (0.70-1.30); EST Glomerular Filtration Rate 54 mL/min (>60); Est Glom Filt Rate - Afr Amer 65 mL/min (>60); Globulin 3.8 g/dL (2.2-4.2); Glucose 124 mg/dL (74-106); Lipase 51 U/L (73-393); Potassium 3.6 mmol/L (3.5-5.1); Protein, Total 7.4 g/dL (6.4-8.2); Sodium Level 138 mmol/L (136-145)
[2019-03-24 11:06] LABS: Bacteria 0 SEEN /hpf (None Seen); Mucous, Urine 0 SEEN /hpf (<or=2+); Red Blood Cells-Urine 0 SEEN /hpf (0-5); White Blood Cells 0 SEEN /hpf (0-5)
[2019-03-24 11:08] LABS: Color, Urine Yellow (Yellow); Glucose, Dipstick Normal (Normal); Ketone-Dipstick Negative (Negative); Leukocyte Esterase-Dipstick Negative /ul (Negative); Nitrite-Dipstick Negative (Negative); Occult Blood-Urine Negative /ul (Negative); Protein-Dipstick Negative (Negative); Urine Bilirubin Dipstick Negative (Negative); Urine Clarity Clear (Clear); Urine Urobilinogen Normal (Normal)
[2019-03-24 11:13] LABS: Hyaline Cast 0-5 SEEN /lpf (0-5); Squamous Epithelial Cells - UA 0-5 SEEN /hpf (0-5)
[2019-03-24 11:47] VITALS: RESP 18
== END 2019-03-24 11:51 | disposition home or self-care (01) ==
PROVIDERS: Emergency Provider Emergency Medicine; Family Provider Family Medicine; PCP Family Medicine
DX: R11.2 Nausea with vomiting, unspecified (principal); Z82.49 Family history of ischemic heart disease and other diseases of the circulatory system; Z88.6 Allergy status to analgesic agent; Z88.8 Allergy status to other drugs, medicaments and biological substances; Z95.1 Presence of aortocoronary bypass graft; Z95.810 Presence of automatic (implantable) cardiac defibrillator
CPT/HCPCS: 80048; 80076; 81001; 83690; 84484; 85025; 93005; 96361; 96374; 96375; 96376; 99283; J7030; A4216; J2405

== ENCOUNTER 2019-05-02 09:02 | Observation (INO) | payer MEDICARE, MEDICAID, SELFPAY ==
[2019-05-02] VITALS (15 sets, daily range): BP systolic 118–145; BP diastolic 64–91; PULSE 76–96; RESP 11–27; TEMP 36.5–37.3; O2SAT 90–99; BMI 34.6; BMI 32.6
--- NOTE | 2019-05-02 09:08 | RAD_ITS ---
STUDY: X-RAY CHEST REASON FOR EXAM: Male, 69 years old. Respiratory failure TECHNIQUE: Single AP portable view of the chest. COMPARISON: February 24, 2019 FINDINGS: There remains a dual-lead pacer defibrillator device via left-sided approach unchanged in appearance. There is evidence of prior thoracic surgery with sternal wire sutures and mediastinal clips. Calcified granuloma noted in the right lower lobe. No evidence of focal infiltrate or failure. There is no demonstrated pleural abnormality. Top normal stable heart size noted. Normal mediastinum and serjio. Normal visualized pulmonary arteries. Normal visualized aortic arch and descending thoracic aorta. Normal visualized thoracic spine. Normal visualized ribs, clavicles, and shoulders. There is no demonstrated abnormality of the visualized soft tissue structures of the upper abdomen. RAD/Chest 1 View (Portable) IMPRESSION: No acute intrathoracic process or significant interval change. No evidence of acute failure. Electronically Signed: Hillary Yeboah MD at 9:30 EDT , Service support ,
--- NOTE | 2019-05-02 09:08 | EKG12_ITS ---
Test Reason : RESPIRATORY DISTRESS Blood Pressure : / mmHG Vent. Rate : 081 BPM Atrial Rate : 081 BPM P-R Int : 142 ms QRS Dur : 102 ms QT Int : 408 ms P-R-T Axes : 058 000 148 degrees QTc Int : 473 ms Normal sinus rhythm ST & T wave abnormality, consider lateral ischemia Prolonged QT Poor R-wave Progression Abnormal ECG Confirmed by BERYL LUNDBERG, MICHELLE ([id number]), publishing editor HARINI STONE ([id number]) on 05/04/2019 1:47:15 PM Referred By: Preeti Gonzalez Confirmed By:MICHELLE CORDOBA MD
[2019-05-02 09:21] LABS: Absolute Lymphocyte Count 1.58 X10^3/uL (0.83-4.51); Basophil# 0.03 X10^3/uL; Basophil% 0.5 % (0-1); Eosinophil# 0.13 X10^3/uL; Hemoglobin 13.9 g/dL (13.0-16.5); Lymphocyte # 1.58 X10^3/ul (4.0); Lymphocyte % 24.9 % (19-41); Mean Corp Hgb Conc 33.9 g/dL (32-36); Mean Corpuscular Hgb 30.7 pg (27.0-32.0); Mean Corpuscular Volume 90.5 fL (80-94); Mean Platelet Vol. 9.2 fl (6.2-12.0); Monocyte# 0.57 X10^3/uL; NRBC Flagged by Analyzer 0 % (0-5); Neutrophil # 4.02 X10^3/uL (2.7-7.7); Neutrophil % 63.3 % (47-70); Platelet Count 203 K/mm3 (150-450); RBC Distribution Width CV 14.4 % (11.6-14.6); RBC Distribution Width SD 46.9 fl (35.1-43.9); Red Blood Count 4.53 M/mm3 (4.6-6.2); White Blood Count 6.4 K/mm3 (4.4-11.0)
[2019-05-02 09:32] LABS: Prothrombin Time (Protime)PT. 13.1 SECONDS (11.7-14.9)
[2019-05-02 09:33] LABS: Partial Thromboplast Time 31.9 Seconds (24.1-36.2)
[2019-05-02 09:41] LABS: AST(SGOT) 24 U/L (15-37); Alanine Aminotransfer ALT/SGPT 33 U/L (16-61); Albumin, Serum 3.5 g/dL (3.2-5.0); Alkaline Phosphatase 80 U/L (45-117); Anion Gap 12 (5-15); BUN 30 mg/dL (7-18); BUN/Creat Ratio 22.4 RATIO (10-20); Bilirubin, Direct 0.11 mg/dL (0.00-0.30); Calcium,Total 8.6 mg/dL (8.5-10.1); Chloride 110 mmol/L (98-107); Creatinine, Serum 1.34 mg/dL (0.70-1.30); EST Glomerular Filtration Rate 56 mL/min (>60); Est Glom Filt Rate - Afr Amer 68 mL/min (>60); Estimated Creatinine Clearance 51.04 ml/min; Globulin 3.1 g/dL (2.2-4.2); Glucose 103 mg/dL (74-106); Lipase 115 U/L (73-393); Potassium 3.7 mmol/L (3.5-5.1); Protein, Total 6.6 g/dL (6.4-8.2); Sodium Level 144 mmol/L (136-145)
[2019-05-02 09:51] LABS: BNP,B-Type NATRIURETIC PEPTIDE 154.9 pg/mL (0-100)
[2019-05-02] MEDS: Mag Hydrox/Al Hydrox/Simeth 30 ML UDC PO (10:14)
[2019-05-02] MEDS: Albuterol 2.5 MG/3 ML VIAL.NEB. INHALATION (10:21)
--- NOTE | 2019-05-02 10:41 | CT_ITS ---
STUDY: CT ABDOMEN AND PELVIS WITH CONTRAST REASON FOR EXAM: Male, 69 years old. DYSPNEA, ABD PAIN,WHEEZING, SOB, COPD, HTN, [place], HEART CATH WITH STENTS, DB, CABG RADIATION DOSAGE (If Supplied By Facility): CTDIvol = ( 26.38 ) mGy, DLP = ( 1794.35 ) mGycm TECHNIQUE: Transaxial images were obtained from the dome of the diaphragm to the symphysis pubis without oral contrast. IV 100mL Isovue-370 100 was administered. Sagittal and coronal images were reconstructed. Individualized dose optimization techniques were used for this CT. COMPARISON: Acute abdomen study February 20, 2019, CT abdomen and pelvis January 20, 2019 FINDINGS: Minimal dependent positional hypoventilatory changes lungs noted. Cardiac pacer device present. No evidence pericardial effusion. Normal liver. Normal gallbladder and extrahepatic biliary system. Normal spleen. Normal pancreas. Normal bilateral adrenal glands. Normal right kidney. Normal left kidney. Stomach is contracted. Normal small intestine. Few scattered diverticula of the colon noted. No evidence diverticulitis. The appendix is visualized and appears normal. There is diffuse atherosclerotic calcification of the abdominal aorta, without a demonstrated aneurysm. Normal inferior vena cava. Normal retroperitoneum. Normal urinary bladder. Prominent fat extends into the inguinal canals bilaterally. There are diffuse degenerative changes of the visualized lumbar spine. Multilevel disc height loss and vacuum disc phenomena noted with multilevel marginal osteophytes. CT/Abdomen/Pelvis W IV Cont ONLY IMPRESSION: No acute intra-abdominal or pelvic abnormality. Electronically Signed: Hillary Yeboah MD at 11:46 EDT , Service support ,
--- NOTE | 2019-05-02 10:41 | CT_ITS ---
STUDY: CTA CHEST REASON FOR EXAM: Male, 69 years old. DYSPNEA, ABD PAIN,WHEEZING, SOB, COPD, HTN, [place], HEART CATH WITH STENTS, DB, CABG RADIATION DOSAGE (If Supplied By Facility): CTDIvol = ( 26.38 ) mGy, DLP = ( 1794.35 ) mGycm TECHNIQUE: The examination was performed with the intravenous administration of IV 100mL Isovue-370 100. Post-processing of the angiographic images was performed, with multiplanar reformation and 3D reconstruction. Individualized dose optimization techniques were used for this CT. COMPARISON: Chest x-ray May 02, 2019 FINDINGS: Left-sided pacer defibrillator device is present. Normal enhancement of the main pulmonary artery and right and left pulmonary arteries. Normal enhancement of the bilateral peripheral pulmonary arteries. There is no demonstrated pulmonary embolism. There is atherosclerotic calcification of the aortic arch with tortuosity. There is no demonstrated aortic dissection. Mild cardiomegaly with left ventricular prominence. There are calcifications of the coronary arteries. No pathologically enlarged nodes. There are a few scattered small lymph nodes. Normal hilar regions. There is some minimal fluid debris in the posterior trachea. Paraseptal emphysematous changes noted of the lung apices. There is also mild centrilobular emphysematous change of the lungs bilaterally more prominent in the upper lobes. No suspicious pulmonary nodule. There appears a calcified granuloma in the right middle lobe. Normal pleura. Normal chest wall structures. Sternal wire sutures noted. Normal osseous structures. Normal visualized upper abdomen. CT/CTA Chest W/WO Contrast IMPRESSION: No demonstrated pulmonary embolus. Mild emphysematous change. No evidence of acute failure. Atherosclerosis. Electronically Signed: Hillary Yeboah MD at 11:42 EDT , Service support ,
[2019-05-02] MEDS: Morphine 4 MG/ML Syringe IV (12:10)
[2019-05-02] MEDS: Ondansetron 4 MG/2 ML Vial IV (12:12)
[2019-05-02] MEDS: MethylPREDNISolone 125 MG/2 ML Vial IV (12:26)
--- NOTE | 2019-05-02 12:29 | HP.PCM_ITS ---
History of Present Illness Date of Admission: 05/02/19 Chief Complaint: shortness of breath The patient is a 69 year old M with an extensive past medical history as listed. He was admitted through the ED on 05/02/2019 with a complaint of shortness of breath was started the night before admission. He had associated wheezing and shortness of breath progressively got worse until he felt like he could even breathe at all. He used his nebulizer at home but it was not helping. He therefore called the squad. He was put on BiPAP immediately he got to the ED because of increased shortness of breath. His breathing at 24 breaths/min, vitals were otherwise within normal limits. Labs showed creatinine of 1.34 and BNP of 154.9. Troponin was less than 0.015. CBC showed no leukocytosis. Chest x-ray showed no acute intrathoracic process or significant interval change and no evidence of acute heart failure. CT angiogram showed no demonstrated pulmonary embolus with mild emphysematous change and no evidence of acute failure. Pelvic CT showed no acute intra-abdominal or pelvic abnormality. EKG done showed evidence of lateral ischemia but this was present on previous EKGs as well. He has been admitted to be managed for acute hypoxic respiratory insufficiency likely due to acute bronchitis. [] Past Medical History Past Medical History (Chronic Problems): Chronic Problems (Last Reviewed 12/24/18 @ 14:09 by TISH Blankenship) Headache (Chronic) COPD (chronic obstructive pulmonary disease) (Chronic) Obesity (BMI 30.0-34.9) (Chronic) Nicotine dependence (Chronic) Gout (Chronic) Degenerative cervical disc (Chronic) Chronic back pain (Chronic) Presence of automatic implantable cardioverter-defibrillator (Chronic) H/O coronary artery bypass surgery (Chronic ~2008) HUMPHREY-LAD, SVG-D1, SVG-OM Chronic renal failure, stage 3 (moderate) (Chronic) Chronic systolic (congestive) heart failure (Chronic) Stented coronary artery (Chronic ~12/2016) has had 7 stents as of 06/15/17 Ischemic cardiomyopathy (Chronic) 25% ejection fraction in November 2016 V-tach (Chronic) has an AICD Benign essential hypertension (Chronic) Gastroesophageal reflux disease (Chronic) Hyperlipidemia (Chronic) Type 2 diabetes mellitus (Chronic) Morbid obesity (Chronic) CAD (coronary artery disease) (Chronic) Medical History: Medical History (Last Reviewed 12/24/18 @ 14:09 by Marlene Robles NP-C) Nicotine dependence (Chronic) F17.200 Gout (Chronic) M10.9 Degenerative cervical disc (Chronic) M50.30 Chronic back pain (Chronic) M54.9, G89.29 Chronic renal failure, stage 3 (moderate) (Chronic) N18.3 Chronic systolic (congestive) heart failure (Chronic) I50.22 Ischemic cardiomyopathy (Chronic) I25.5 25% ejection fraction in November 2016 V-tach (Chronic) I47.2 has an AICD Benign essential hypertension (Chronic) I10 Gastroesophageal reflux disease (Chronic) K21.9 Hyperlipidemia (Chronic) E78.5 Type 2 diabetes mellitus (Chronic) E11.9 Morbid obesity (Chronic) E66.01 CAD (coronary artery disease) (Chronic) I25.10 Tubular adenoma of colon (Inactive) D12.6 Allergies chlorpromazine HCl [From Thorazine] Allergy (Severe, Verified 03/24/19 08:17) Hives PER PATIENT tramadol HCl [From Ultram] Allergy (Severe, Verified 03/24/19 08:17) Hives PER PATIENT codeine Allergy (Intermediate, Verified 03/24/19 08:17) Hives atorvastatin Adverse Reaction (Intermediate, Verified 03/24/19 08:17) Other LEG PAIN/CRAMPS cyclobenzaprine [From Flexeril] Adverse Reaction (Verified 03/24/19 08:17) Upset Stomach naproxen Adverse Reaction (Verified 03/24/19 08:17) Upset Stomach promethazine [From Phenergan] Adverse Reaction (Verified 03/24/19 08:17) Other CONFUSION Home Medications: Ambulatory Orders Medication Instructions Recorded Isosorbide Mononitrate [Imdur] 30 mg PO DAILY 02/18/17 Albuterol Aerosols [Ventolin 2.5 mg INHALATION Q4H PRN PRN 02/23/17 Aerosols] Pantoprazole Sodium [Protonix] 40 mg PO DAILY 11/15/17 Lisinopril [Zestril] 2.5 mg PO DAILY 05/21/18 Rosuvastatin Calcium [Crestor] 40 mg PO DAILY 06/16/18 Clopidogrel Bisulfate [Plavix] 75 mg PO DAILY 09/01/18 Furosemide 40 mg PO DAILY 09/01/18 Allopurinol 300 mg PO DAILY 09/20/18 Metoprolol Succinate 100 mg PO DAILY 12/01/18 Nitroglycerin 0.4 mg SL PRN PRN 12/01/18 Nicotine [Nicoderm Cq] 21 mg TRANSDERM. DAILY patch 12/03/18 Aspirin [Aspir 81] 81 mg PO DAILY #1 tablet. 01/21/19 proMETHazine tablet [Phenergan 25 mg PO Q6H PRN PRN #10 tab 02/20/19 tablet] Albuterol Inhaler [Ventolin Hfa] 2 puff INHALATION Q4H PRN PRN 02/24/19 Spironolactone 25 mg PO DAILY 02/24/19 Ondansetron [Zofran Odt] 4 mg PO Q8H PRN PRN #10 tab 03/24/19 Surgical History: Surgical History (Last Reviewed 12/24/18 @ 14:09 by TISH Blankenship) Presence of automatic implantable cardioverter-defibrillator (Chronic) Z95.810 H/O coronary artery bypass surgery (Chronic) Onset Date: ~2008 Z95.1 HUMPHREY-LAD, SVG-D1, SVG-OM Stented coronary artery (Chronic) Onset Date: ~12/2016 has had 7 stents as of 06/15/17 Hx of hernia repair (Inactive) Z98.890, Z87.19 Previous back surgery (Inactive) Z98.890 Surgical History: angioplasty - stents x10, coronary bypass surgery, - - AICD placement, back surgery x 2, hernia repair Psychiatric History: No pertinent psych hx Lives: With Family Smoking Status: Former smoker - quit 2 months ago Alcohol: None Drugs: None - *Family History Paternal Family History: Family History (Last Reviewed 12/24/18 @ 14:09 by TISH Blankenship) Brother CAD (coronary artery disease) Myocardial infarction Sudden cardiac Mother Cancer Hypertension Father Cancer COPD (chronic obstructive pulmonary disease) History Items: Cancer, Heart Disease Maternal Family History: Family History (Last Reviewed 12/24/18 @ 14:09 by TISH Blankenship) Brother CAD (coronary artery disease) Myocardial infarction Sudden cardiac Mother Cancer Hypertension Father Cancer COPD (chronic obstructive pulmonary disease) History Items: - - Patient notes a paternal family history of chronic lung disease, lung cancer with history of tobacco use. Review of Systems Constitutional: Reports: Malaise, Fatigue. Denies: Chills, Fever, Weakness, Weight Change Eyes: Denies: Blurred vision HEENT: Denies: Head Aches, Sinus Congestion, Sinus Drainage Cardiovascular: Denies: Chest Pain, Chest Pressure, Heaviness, Light Headedness, Orthopnea, Paroxysmal Noc. Dyspnea, Syncope Respiratory: Reports: Cough, Pleuritic Pain, Shortness of Breath, Shortness of breath at rest, Shortness of breath upon exertion, Sputum production, Wheezing Gastrointestinal: Denies: Abdominal Pain, Nausea, Vomiting Genitourinary: Denies: Dysuria Musculoskeletal: Denies: Joint Pain, Joint Tenderness Skin: Denies: Rash, Wounds Neurological: Denies: Numbness, Tingling, Focal weakness Psychiatric: Denies: Anxiety, Depression, Homicidal Ideations, Suicidal Ideations Hematologic/ Lymphatic: Denies: Easy Bruising, Easy Bleeding VTE Information - Inpt Only VTE Present on Admission: No VTE Pharm Prophylaxis ordered?: Yes - Physical Exam General: Alert, Oriented x3, Cooperative, Lethargic HEENT: Atraumatic, PERRLA, EOMI, Normocephalic Oral: Dry Mucosa Neck: Supple, No JVD, Negative Carotid Bruits Lungs: - - decreased breath sounds bibasally, with crackles in mid and lower lung bui. Cardiovascular: Regular rate, Regular Rhythm, Normal S1, Normal S2, No murmurs Abdomen: Bowel Sounds Present, Soft, Non-Distended, No Hepato-splenomegaly, - - mild epigastric tenderness, no guarding or rebound tenderness- attributes it to taking too much ibuprofen Extremities: No clubbing, No cyanosis, No edema, Capillary Refill Less than 3 Seconds Skin: No rashes, No breakdown Musculoskeletal: No Tenderness to Palpation of Joints or Extremities Lymphatic: No Cervical, Supraclavicular, or Inguinal Adenopathy Neurological: Cranial nerves II-XII grossly intact, Neuro grossly intact, Motor Exam 5/5 strength throughout Psych/Mental Status: Normal Affect, Appropriate, Alert and oriented to time, place, person, mood and affect Vital Signs Temp Pulse Resp BP Pulse Ox 99.1 F 84 27 H 118/64 96 05/02/19 09:02 05/02/19 12:14 05/02/19 12:14 05/02/19 12:14 05/02/19 12:14 Oxygen Flow Rate (L/min) 2 Oxygen Delivery Method Room Air Weight: 227 lb 8.273 oz Body Mass Index (BMI) 34.6 Laboratory Tests Past 24 Hrs 05/02/19 05/02/19 05/02/19 09:05 09:05 09:05 WBC 6.4 RBC 4.53 L Hgb 13.9 Hct 41.0 MCV 90.5 MCH 30.7 MCHC 33.9 RDW Std Deviation 46.9 H RDW Coeff of Maggie 14.4 Plt Count 203 MPV 9.2 Immature Gran % (Auto) 0.300 Neut % (Auto) 63.3 Lymph % (Auto) 24.9 [place] % (Auto) 9.0 Eos % (Auto) 2.0 Baso % (Auto) 0.5 Absolute Neuts (auto) 4.0 Absolute Lymphs (auto) 1.58 Nucleated RBC % 0 PT 13.1 INR 1.0 APTT 31.9 Sodium 144 Potassium 3.7 Chloride 110 H Carbon Dioxide 22.0 Anion Gap 12 BUN 30 H Creatinine 1.34 H Estim Creat Clear Calc 51.04 Est GFR (MDRD) Af Amer 68 Est GFR (MDRD) Non-Af 56 L BUN/Creatinine Ratio 22.4 H Glucose 103 Calcium 8.6 Total Bilirubin 0.40 Direct Bilirubin 0.11 AST 24 ALT 33 Alkaline Phosphatase 80 Troponin I < 0.015 B-Natriuretic Peptide Total Protein 6.6 Albumin 3.5 Globulin 3.1 Lipase 115 05/02/19 09:05 WBC RBC Hgb Hct MCV MCH MCHC RDW Std Deviation RDW Coeff of Maggie Plt Count MPV Immature Gran % (Auto) Neut % (Auto) Lymph % (Auto) [place] % (Auto) Eos % (Auto) Baso % (Auto) Absolute Neuts (auto) Absolute Lymphs (auto) Nucleated RBC % PT INR APTT Sodium Potassium Chloride Carbon Dioxide Anion Gap BUN Creatinine Estim Creat Clear Calc Est GFR (MDRD) Af Amer Est GFR (MDRD) Non-Af BUN/Creatinine Ratio Glucose Calcium Total Bilirubin Direct Bilirubin AST ALT Alkaline Phosphatase Troponin I B-Natriuretic Peptide 154.9 H Total Protein Albumin Globulin Lipase Diagnostic Data Chest X-Ray 05/02/19 09:08 IMPRESSION: No acute intrathoracic process or significant interval change. No evidence of acute failure. Electronically Signed: Hillary Yeboah MD at 9:30 EDT , Service support , Abdomen/Pelvis CT 05/02/19 10:41 IMPRESSION: No acute intra-abdominal or pelvic abnormality. Electronically Signed: Hillary Yeboah MD at 11:46 EDT , Service support , Chest CTA 05/02/19 10:41 IMPRESSION: No demonstrated pulmonary embolus. Mild emphysematous change. No evidence of acute failure. Atherosclerosis. Electronically Signed: Hillary Yeboah MD at 11:42 EDT , Service support , Assessment/Plan All Active Problems (Last Reviewed 12/24/18 @ 14:09 by Marlene Robles NP-C) Hypoxia, sleep related (Acute) Coarse tremors (Acute) 69 y/o presenting with a complaint of shortness of breath 1. Acute hypoxic respiratory insufficiency due to bronchitis and COPD exacerbation * had to be put on BIPAP on admission in ED, but was successfully transitioned off BIPAP to nasal canula in ED. * lungs have coarse crackles in mid and lower lung bui * admit to PCU with telemetry * BNP was 154.9; BNP is chronically elevated * IV solumedrol 40mg q8;breathing treatments prn with duonebs * no need for antibiotics for now * check respiratory panel and urine for Strep and Legionella * titrate oxygen to maintain saturation >90% * 2. Acute bronchitis and COPD exacerbation * as under 1. * 3. Gastritis likely due to ibuprofen use: * says he has been taking more tablets of ibuprofen than he should due to chronic back pain. * hold ibuprofen. * PO pantoprazole. 4. Chronic HFrEF with ischemic cardiomyopathy: * on lisinopril and metoprolol 5. Type 2 diabetes mellitus: * ISS. Accuchecks ACHS. Diet controlled. 6. Hypertension: * fairly controlled. On lisinopril and metoprolol 7. CKD stage 3:Cr is 1.34, which is around his baseline. Will monitor 8. History of Vtach s/p ICD: stable 9. chronic back pain: on percocet prn DVT prophylaxis: SCDs Code status: full code * Patient counseled extensively about different types of CODE STATUS including full code, DNR CCA and DNR CCA. * Patient elects to be full code. * Total hdif-cn-agpm time 17 minutes. Code Visit OBSV E&M: 08742 Initial observation care L3 Procedures: 07647 Advncd Care Plan 30 Min
[2019-05-02] MEDS: Ipratropium/Albuterol Sulfate 3 ML AMPUL.NEB INHALATION ×3 (12:55→19:14)
--- NOTE | 2019-05-02 15:31 | ED.DCSUM_ITS ---
- ER Visit Summary Date of Service: 05/02/19 Chief Complaint: Shortness of breath History of Present Illness: The patient is a 69 M who presents the emergency department emergently with EMS after calling them for shortness of breath. Patient has a history of COPD not on home oxygen. Tells me that yesterday he began to feel short of breath more so than normal. States that during the night he started coughing up some phlegm so he started doing home aerosols. By this morning he states he could barely breathe and he was experiencing what he said was chest pain (pointing to the epigastrium). He has a history of coronary artery disease having had a CABG and stents placed he has an AICD. Chronic kidn ey disease. He is on Plavix. Former smoker. No recent fevers. Physical Examination: Afebrile patient is noted to be Tachypneic while on CPAP Gen: Well-nourished well-developed Head: Normocephalic atraumatic Eyes: Perrl EOMI ENT: TMs clear no rhinorrhea moist mucous membranes Neck: Supple no lymphadenopathy no JVD nontender CVS: Regular rate rhythm no murmurs normal S1-S2 Respiratory: And is in moderate respiratory distress with rhonchi and faint expiratory wheezing but diminished breath sounds. Chest nontender Abdomen: Soft nontender nondistended normal bowel sounds no masses Back: Nontender Extremity: Nontender no edema Skin: Normal color no rash Neuro: alert orientated ?3 CN II-XII intact normal strength sensation Psych: Patient appears anxious Test Results: CBC BMP showed creatinine 1.34. Troponin negative BNP 154.9. EKG sinus at a rate of 81. Chest x-ray showed no acute findings. CT Yareli of the chest and pelvis were also negative. Emergency Department Course and Treatment: The patient was transitioned from CPAP by EMS to BiPAP here in the emergency department. This was able to slow his breathing down into the teens. Initially we could not get much history from the patient so I felt this could possibly be a pulmonary edema issue so I initially had ordered nitroglycerin and Lasix. However after obtaining the chest x-ray I discontinued those and proceeded to administer aerosols and Solu- Medrol. Patient received a GI cocktail for his pain in his epigastrium. This did help some. He tells me he has been taking a lot of ibuprofen because of his chronic back pain that he is no longer on narcotics for. He states his stools been black but he has been drinking a large amount of Pepto-Bismol. As mentioned above his hemoglobin is stable. Looking for other potential sources a CTA of the chest and pelvis was negative. This patient could certainly have a acute bronchitis episode that developed mucous plugging during the night. Given his amount of respiratory distress today is reasonable to observe him today. Impression: 1. Acute respiratory failure 2. Acute gastritis This note was generated with [employer] dictation software. It may contain incorrect words, spelling, and punctuation that were not noted in review of the chart prior to signing ED Disposition - Plan for ED Patient: Disposition: Acute [facility]
[2019-05-02] MEDS: HYDROcodone Bitartrate/Apap 5/325 Tablet PO ×2 (15:47→22:11)
[2019-05-02] MEDS: Insulin Lispro 100 UNIT/ML INSULN.PEN SC ×2 (17:01→22:10)
[2019-05-02 17:10] LABS: Bedside Glucose 184 mg/dL (70-110)
[2019-05-02] MEDS: 0.9% NaCl Peripheral Flush Adult/Peds IV ×2 (22:10→22:12)
[2019-05-02] MEDS: Rosuvastatin 20 MG Tablet 40 MG PO (22:10)
--- NOTE | 2019-05-02 22:37 | NURSING ---
Pt states pain has gotten so bad at home that he has considered eating a bullet. This RN asked pt if he was having thoughts of hurting/killing himself at this time. He denies. States he doesn't have a gun.
[2019-05-02 23:11] LABS: Bedside Glucose 163 mg/dL (70-110)
[2019-05-02] MEDS: oxyCODONE 5 MG Tablet PO (23:35)
[2019-05-03] VITALS (15 sets, daily range): BP systolic 103–142; BP diastolic 62–82; PULSE 79–98; RESP 10–20; TEMP 36.5–36.7; O2SAT 91–94
[2019-05-03] MEDS: Ipratropium/Albuterol Sulfate 3 ML AMPUL.NEB INHALATION ×6 (01:03→22:46)
[2019-05-03] MEDS: oxyCODONE 5 MG Tablet PO ×5 (04:29→21:39)
[2019-05-03] MEDS: 0.9% NaCl Peripheral Flush Adult/Peds IV ×5 (05:27→21:39)
[2019-05-03 06:36] LABS: Absolute Lymphocyte Count 0.53 X10^3/uL (0.83-4.51); Basophil# 0.01 X10^3/uL; Basophil% 0.1 % (0-1); Eosinophil# 0.13 X10^3/uL; Eosinophils% 1.9 % (0-5); Hematocrit 38.3 % (40-54); Hemoglobin 12.7 g/dL (13.0-16.5); Lymphocyte # 0.53 X10^3/ul (4.0); Lymphocyte % 7.8 % (19-41); Mean Corp Hgb Conc 33.2 g/dL (32-36); Mean Corpuscular Hgb 30.2 pg (27.0-32.0); Mean Corpuscular Volume 91.2 fL (80-94); Mean Platelet Vol. 9.8 fl (6.2-12.0); Monocyte# 0.17 X10^3/uL; Monocyte% 2.5 % (0-10); NRBC Flagged by Analyzer 0 % (0-5); Neutrophil # 5.96 X10^3/uL (2.7-7.7); Neutrophil % 87.3 % (47-70); POSITIVE DIFFERENTIAL YES; POSITIVE MORPHOLOGY YES; Platelet Count 187 K/mm3 (150-450); RBC Distribution Width CV 14.5 % (11.6-14.6); White Blood Count 6.8 K/mm3 (4.4-11.0)
[2019-05-03 06:39] LABS: Differential Indicated SCAN CRITERIA MET
[2019-05-03 06:55] LABS: Anion Gap 11 (5-15); BUN 34 mg/dL (7-18); BUN/Creat Ratio 24.1 RATIO (10-20); Calcium,Total 8.3 mg/dL (8.5-10.1); Chloride 105 mmol/L (98-107); Creatinine, Serum 1.41 mg/dL (0.70-1.30); EST Glomerular Filtration Rate 53 mL/min (>60); Est Glom Filt Rate - Afr Amer 64 mL/min (>60); Estimated Creatinine Clearance 48.51 ml/min; Glucose 204 mg/dL (74-106); Sodium Level 136 mmol/L (136-145)
[2019-05-03] MEDS: Insulin Lispro 100 UNIT/ML INSULN.PEN SC ×3 (07:00→21:37)
[2019-05-03 07:09] LABS: Platelet Estimate ADEQUATE (ADEQ)
[2019-05-03 07:10] LABS: Bedside Glucose 194 mg/dL (70-110)
[2019-05-03 07:10] LABS: Anisocytosis RARE; Macrocytosis RARE; Red Cell Morphology N CHROM NORMAL (NORM C&C)
[2019-05-03] MEDS: Enoxaparin 40 MG/0.4 ML Syringe SC (09:12)
[2019-05-03] MEDS: Pantoprazole Sodium 40 MG Tablet PO (09:13)
[2019-05-03] MEDS: Aspirin E.C. 81 MG Tablet PO (09:13)
[2019-05-03] MEDS: Furosemide 40 MG Tablet PO (09:13)
[2019-05-03] MEDS: Spironolactone 25 MG Tablet PO (09:13)
[2019-05-03] MEDS: Metoprolol(XL)Succ 100 MG Tablet PO (09:13)
[2019-05-03] MEDS: Isosorbide Mononitrate 30 MG Tablet PO (09:13)
[2019-05-03] MEDS: Clopidogrel Bisulfate 75 MG Tablet PO (09:13)
[2019-05-03] MEDS: Lisinopril 2.5 MG Tablet PO (09:13)
[2019-05-03] MEDS: Allopurinol 300 MG Tablet PO (09:13)
--- NOTE | 2019-05-03 09:20 | PCM.PN.HOSP ---
Subjective: Patient seen and examined. He says he feels better today. He is still wheezing and short of breath, with a cough. He denies any chest pain, palpitations, dizziness, diarrhea or vomiting. Review of systems is otherwise negative. Labs and vitals reviewed. Vitals/I&O's: Vital Signs Temp Pulse Resp BP Pulse Ox 97.7 F L 98 20 H 134/76 H 94 05/03/19 09:10 05/03/19 09:13 05/03/19 09:10 05/03/19 09:10 05/03/19 09:10 Oxygen Flow Rate (L/min) 2 Oxygen Delivery Method Room Air Weight: 214 lb 11.684 oz Body Mass Index (BMI) 32.6 Intake and Output for Last 24 Hours 05/01/19 05/02/19 05/03/19 23:59 23:59 23:59 Intake Total 320 / 320 370 / 370 Balance 320 / 320 370 / 370 - Physical Exam General: Alert, Oriented x3, Cooperative HEENT: Atraumatic, PERRLA, EOMI, Normocephalic Oral: Dry Mucosa Neck: Supple, No JVD, Negative Carotid Bruits Lungs: - - decreased breath sounds bibasally, with crackles in mid and lower lung bui. Cardiovascular: Regular rate, Regular Rhythm, Normal S1, Normal S2, No murmurs Abdomen: Bowel Sounds Present, Soft, Non-Distended, No Hepato-splenomegaly,epigastric tenderness has resolved Extremities: No clubbing, No cyanosis, No edema, Capillary Refill Less than 3 Seconds Skin: No rashes, No breakdown Musculoskeletal: No Tenderness to Palpation of Joints or Extremities Lymphatic: No Cervical, Supraclavicular, or Inguinal Adenopathy Neurological: Cranial nerves II-XII grossly intact, Neuro grossly intact, Motor Exam 5/5 strength throughout Psych/Mental Status: Normal Affect, Appropriate, Alert and oriented to time, place, person, mood and affect Microbiology Past 72 Hours 05/02/19 15:20 Urine, Clean Catch Legionella Antigen - Final 05/02/19 15:20 Urine, Clean Catch Streptococcus pneumoniae Antigen (M - Final Laboratory Results 05/02/19 09:05: WBC 6.4, RBC 4.53 L, Hgb 13.9, Hct 41.0, MCV 90.5, MCH 30.7, MCHC 33.9, RDW Std Deviation 46.9 H, RDW Coeff of Maggie 14.4, Plt Count 203, MPV 9.2, Immature Gran % (Auto) 0.300, Neut % (Auto) 63.3, Lymph % (Auto) 24.9, Kerr % (Auto) 9.0, Eos % (Auto) 2.0, Baso % (Auto) 0.5, Absolute Neuts (auto) 4.0, Absolute Lymphs (auto) 1.58, Nucleated RBC % 0 05/02/19 09:05: PT 13.1, INR 1.0, APTT 31.9 05/02/19 09:05: Sodium 144, Potassium 3.7, Chloride 110 H, Carbon Dioxide 22.0, Anion Gap 12, BUN 30 H, Creatinine 1.34 H, Estim Creat Clear Calc 51.04, Est GFR (MDRD) Af Amer 68, Est GFR (MDRD) Non-Af 56 L, BUN/Creatinine Ratio 22.4 H, Glucose 103, Calcium 8.6, Total Bilirubin 0.40, Direct Bilirubin 0.11, AST 24, ALT 33, Alkaline Phosphatase 80, Troponin I < 0.015, Total Protein 6.6, Albumin 3.5, Globulin 3.1, Lipase 115 05/02/19 09:05: B-Natriuretic Peptide 154.9 H 05/02/19 16:55: POC Glucose 184 H 05/02/19 22:08: POC Glucose 163 H 05/03/19 06:16: WBC 6.8, RBC 4.20 L, Hgb 12.7 L, Hct 38.3 L, MCV 91.2, MCH 30.2, MCHC 33.2, RDW Std Deviation 48.0 H, RDW Coeff of Maggie 14.5, Plt Count 187, MPV 9.8, Immature Gran % (Auto) 0.400, Neut % (Auto) 87.3 H, Lymph % (Auto) 7.8 L, Kerr % (Auto) 2.5, Eos % (Auto) 1.9, Baso % (Auto) 0.1, Absolute Neuts (auto) 6.0, Absolute Lymphs (auto) 0.53 L, Nucleated RBC % 0, Differential Comment SEE COMMENT, Diff Path Review May foll, Platelet Estimate ADEQUATE, RBC Morphology N CHROM, Anisocytosis RARE, Macrocytosis RARE 10/08/19 06:16: Sodium 136, Potassium 4.0, Chloride 105, Carbon Dioxide 20.0 L, Anion Gap 11, BUN 34 H, Creatinine 1.41 H, Estim Creat Clear Calc 48.51, Est GFR (MDRD) Af Amer 64, Est GFR (MDRD) Non-Af 53 L, BUN/Creatinine Ratio 24.1 H, Glucose 204 H, Calcium 8.3 L 05/03/19 06:58: POC Glucose 194 H Current Medications Albuterol/Ipratropium (Duoneb) 3 ml INHALATION Q4HWA.RT [facility] Last Admin: 05/03/19 07:17 Dose: 3 ml Documented by: Allopurinol (Zyloprim) 300 mg PO DAILY [facility] Last Admin: 05/03/19 09:13 Dose: 300 mg Documented by: Aspirin (Ecotrin) 81 mg PO DAILY@0800 [facility] Last Admin: 05/03/19 09:13 Dose: 81 mg Documented by: Clopidogrel Bisulfate (Plavix) 75 mg PO DAILY [facility] Last Admin: 05/03/19 09:13 Dose: 75 mg Documented by: Dextrose (D50w Syringe) 0 gm IV X1 PRN; Protocol PRN Reason: Hypoglycemia Enoxaparin Sodium (Lovenox) 40 mg SC DAILY@1000 [facility] Last Admin: 05/03/19 09:12 Dose: 40 mg Documented by: Furosemide (Lasix) 40 mg PO DAILY [facility] Last Admin: 05/03/19 09:13 Dose: 40 mg Documented by: Glucagon () 1 mg IM .X1 PRN PRN Reason: Hypoglycemia Guaifenesin (Robitussin) 20 ml PO Q4H PRN PRN PRN Reason: COUGH Sodium Chloride () 250 mls @ 15 mls/hr IV .[id number] PRN PRN Reason: SALINE FLUSH Insulin Human Lispro (Humalog Kwikpen (Bkc)) 0 unit SC ACHS [facility]; Protocol Last Admin: 05/03/19 07:00 Dose: 2 units Documented by: Isosorbide Mononitrate (Imdur) 30 mg PO DAILY [facility] Last Admin: 05/03/19 09:13 Dose: 30 mg Documented by: Lisinopril (Zestril) 2.5 mg PO DAILY [facility] Last Admin: 05/03/19 09:13 Dose: 2.5 mg Documented by: Methylprednisolone (Solu-Medrol) 40 mg IV Q8 [facility] Last Admin: 05/03/19 05:20 Dose: 40 mg Documented by: Metoprolol Succinate (Toprol Xl (Beta Sina)) 100 mg PO DAILY [facility] Last Admin: 05/03/19 09:13 Dose: 100 mg Documented by: Morphine Sulfate () 4 mg IV X1 PRN PRN Reason: Pain Score 1-10/10 Last Admin: 05/02/19 12:10 Dose: 4 mg Documented by: Nicotine (Nicoderm Cq (Pbkc)) 21 mg TRANSDERM. DAILY [facility] Last Admin: 05/03/19 09:11 Dose: 21 mg Documented by: Nitroglycerin (Nitrostat) 0.4 mg SUBLINGUAL .Q5M PRN PRN PRN Reason: CHEST PAIN Ondansetron HCl (Zofran) 4 mg IV Q4H PRN PRN PRN Reason: NAUSEA Last Admin: 05/02/19 12:12 Dose: 4 mg Documented by: Ondansetron HCl (Zofran Odt) 4 mg PO Q8H PRN PRN PRN Reason: NAUSEA Oxycodone HCl (Oxyir) 5 mg PO Q4H PRN PRN PRN Reason: Pain Score 6-10/10 Last Admin: 05/03/19 09:13 Dose: 5 mg Documented by: Pantoprazole Sodium (Protonix) 40 mg PO DAILY [facility] Last Admin: 05/03/19 09:13 Dose: 40 mg Documented by: Promethazine HCl (Phenergan Tablet) 25 mg PO Q6H PRN PRN PRN Reason: NAUSEA Rosuvastatin Calcium (Crestor) 40 mg PO QHS [facility] Last Admin: 05/02/19 22:10 Dose: 40 mg Documented by: Sodium Chloride () 5 - 15 ml IV UD PRN PRN Reason: SALINE FLUSH Last Admin: 05/03/19 05:28 Dose: 10 ml Documented by: Spironolactone (Aldactone) 25 mg PO DAILY [facility] Last Admin: 05/03/19 09:13 Dose: 25 mg Documented by: Medical Necessity - Tobacco Use Smoking Status: Former smoker Assessment/Plan All Active Problems (Last Reviewed 12/24/18 @ 14:09 by Marlene Robles NP-C) Hypoxia, sleep related (Acute) Coarse tremors (Acute) 69 y/o presenting with a complaint of shortness of breath 1. Acute hypoxic respiratory insufficiency due to bronchitis and COPD exacerbation feels better today on IV solumedrol 40mg q8 and breathing treatments with duonebs urine for strep and legionella antigens were negative respiratory panel is pending titrate oxygen to maintain saturations >90% 2. Acute bronchitis and COPD exacerbation as under 1. 3. Gastritis likely due to ibuprofen use: abdominal tenderness has resolved PO pantoprazole. 4. Chronic HFrEF with ischemic cardiomyopathy: on lisinopril and metoprolol 5. Type 2 diabetes mellitus: ISS. Accuchecks ACHS. Diet controlled. 6. Hypertension: fairly controlled. On lisinopril and metoprolol 7. CKD stage 3:Cr is 1.34, which is around his baseline. Will monitor 8. History of Vtach s/p ICD: stable 9. chronic back pain: on percocet prn. encouraged to follow up with pain management as he says only a nerve block has relieved his pain in the past. DVT prophylaxis: lovenox Code Visit OBSV E&M: 05723 Subsequent observation care L2
[2019-05-03 10:13] LABS: Pathologist Review Reviewed
[2019-05-03 11:21] LABS: Bedside Glucose 217 mg/dL (70-110)
--- NOTE | 2019-05-03 13:25 | CASEMGMT ---
Case Management Progress Note: This casualty underwriter went to patient bedside, watching tv, introduced self and role. Explained and reviewed WAY form with patient. Notified patient that Outpatient billing will be determined by his insurance policy and status will continue to be reviewed for any changes in condition that may warrant inpatient stay. Patient states understanding and signed WAY form which was placed in patient chart. Patient provided a copy of WAY form and denies any questions or concerns at this time. Joy Mahan RNCM
[2019-05-03 16:36] LABS: Bedside Glucose 147 mg/dL (70-110)
[2019-05-03] MEDS: MELATONIN 3 MG TABLET PO (21:38)
[2019-05-03] MEDS: Rosuvastatin 20 MG Tablet 40 MG PO (21:41)
[2019-05-04 02:11] LABS: Bedside Glucose 207 mg/dL (70-110)
--- NOTE | 2019-05-04 02:47 | NURSING ---
Verbal report given to Ariella Polk RN. She will resume care of patient at this time.
[2019-05-04] MEDS: oxyCODONE 5 MG Tablet PO ×3 (02:51→10:55)
[2019-05-04 03:00] VITALS: BP 122/72; PULSE 72; PULSE 81; RESP 18; TEMP 36.7; O2SAT 93
--- NOTE | 2019-05-04 05:28 | NURSING ---
This RN resuming care of patient at this time.
[2019-05-04] MEDS: 0.9% NaCl Peripheral Flush Adult/Peds IV ×2 (05:54→05:59)
[2019-05-04 06:30] VITALS: PULSE 82; RESP 20; O2SAT 92
[2019-05-04] MEDS: Ipratropium/Albuterol Sulfate 3 ML AMPUL.NEB INHALATION ×2 (06:30→10:46)
[2019-05-04] MEDS: Insulin Lispro 100 UNIT/ML INSULN.PEN SC (06:51)
[2019-05-04 06:55] LABS: Absolute Neutrophil Count 8.3 X10^3/uL (2.0-7.7); Eosinophil# 0.17 X10^3/uL; Eosinophils% 1.8 % (0-5); Hematocrit 37.4 % (40-54); Hemoglobin 12.2 g/dL (13.0-16.5); Lymphocyte % 7.3 % (19-41); Mean Corp Hgb Conc 32.6 g/dL (32-36); Mean Corpuscular Volume 91.9 fL (80-94); Mean Platelet Vol. 9.9 fl (6.2-12.0); Monocyte# 0.39 X10^3/uL; Monocyte% 4.1 % (0-10); NRBC Flagged by Analyzer 0 % (0-5); Neutrophil % 86.5 % (47-70); POSITIVE MORPHOLOGY YES; Platelet Count 204 K/mm3 (150-450); RBC Distribution Width CV 14.6 % (11.6-14.6); RBC Distribution Width SD 48.8 fl (35.1-43.9); Red Blood Count 4.07 M/mm3 (4.6-6.2); White Blood Count 9.6 K/mm3 (4.4-11.0)
[2019-05-04 07:01] LABS: Bedside Glucose 161 mg/dL (70-110)
[2019-05-04 07:02] VITALS: PULSE 80
[2019-05-04 07:03] LABS: Differential Indicated SCAN CRITERIA MET
[2019-05-04 07:19] LABS: Anion Gap 7 (5-15); BUN 42 mg/dL (7-18); BUN/Creat Ratio 32.6 RATIO (10-20); Calcium,Total 8.5 mg/dL (8.5-10.1); Chloride 109 mmol/L (98-107); Creatinine, Serum 1.29 mg/dL (0.70-1.30); EST Glomerular Filtration Rate 59 mL/min (>60); Est Glom Filt Rate - Afr Amer 71 mL/min (>60); Estimated Creatinine Clearance 53.02 ml/min; Glucose 168 mg/dL (74-106); Potassium 4.2 mmol/L (3.5-5.1); Sodium Level 139 mmol/L (136-145)
[2019-05-04 09:00] VITALS: BP 123/57; PULSE 82; RESP 20; TEMP 36.4; O2SAT 95
[2019-05-04 09:09] VITALS: PULSE 82
[2019-05-04] MEDS: Metoprolol(XL)Succ 100 MG Tablet PO (09:09)
[2019-05-04] MEDS: Allopurinol 300 MG Tablet PO (09:09)
[2019-05-04] MEDS: Isosorbide Mononitrate 30 MG Tablet PO (09:09)
[2019-05-04] MEDS: Clopidogrel Bisulfate 75 MG Tablet PO (09:09)
[2019-05-04] MEDS: Furosemide 40 MG Tablet PO (09:09)
[2019-05-04] MEDS: Lisinopril 2.5 MG Tablet PO (09:09)
[2019-05-04] MEDS: Pantoprazole Sodium 40 MG Tablet PO (09:09)
[2019-05-04] MEDS: Aspirin E.C. 81 MG Tablet PO (09:10)
[2019-05-04] MEDS: Enoxaparin 40 MG/0.4 ML Syringe SC (09:10)
[2019-05-04] MEDS: Spironolactone 25 MG Tablet PO (09:10)
--- NOTE | 2019-05-04 10:27 | PCM.DC ---
You will use the following diet at home:: Cardiac Your food should be the consistency of: Regular Your liquids should be the consistency of: Regular/Thin Discharge Activity: Return to Normal Activity Weight Bearing Status: Weight bearing as tolerated Call your doctor if you observe: Fever of 101 or Higher, Shortness of breath, Dizziness, Fainting spells, Swelling in the ankles, Chest pain Instructions: Treatments for COPD, Dyphylline, Guaifenesin Oral tablet, Chronic Lung Disease: Becoming More Active, Chronic Lung Disease: Preventing Lung Infections Allergies/Adverse Reactions: Allergies chlorpromazine HCl [From Thorazine] Allergy (Severe, Verified 03/24/19 08:17) Hives PER PATIENT tramadol HCl [From Ultram] Allergy (Severe, Verified 03/24/19 08:17) Hives PER PATIENT codeine Allergy (Intermediate, Verified 03/24/19 08:17) Hives atorvastatin Adverse Reaction (Intermediate, Verified 03/24/19 08:17) Other LEG PAIN/CRAMPS cyclobenzaprine [From Flexeril] Adverse Reaction (Verified 03/24/19 08:17) Upset Stomach naproxen Adverse Reaction (Verified 03/24/19 08:17) Upset Stomach promethazine [From Phenergan] Adverse Reaction (Verified 03/24/19 08:17) Other CONFUSION Medications to take at Discharge Isosorbide Mononitrate [Imdur] 30 mg PO DAILY 02/18/17 Albuterol Aerosols [Ventolin Aerosols] 2.5 mg INHALATION Q4H PRN PRN 02/23/17 Pantoprazole Sodium [Protonix] 40 mg PO DAILY 11/15/17 Lisinopril [Zestril] 2.5 mg PO DAILY 05/21/18 Rosuvastatin Calcium [Crestor] 40 mg PO DAILY 06/16/18 Clopidogrel Bisulfate [Plavix] 75 mg PO DAILY 09/01/18 Furosemide 40 mg PO DAILY 09/01/18 Allopurinol 300 mg PO DAILY 09/20/18 Metoprolol Succinate 100 mg PO DAILY 12/01/18 Nitroglycerin 0.4 mg SL PRN PRN 12/01/18 Nicotine [Nicoderm Cq] 21 mg TRANSDERM. DAILY patch 12/03/18 Aspirin [Aspir 81] 81 mg PO DAILY #1 tablet. 01/21/19 proMETHazine tablet [Phenergan tablet] 25 mg PO Q6H PRN PRN #10 tab 02/20/19 Albuterol Inhaler [Ventolin Hfa] 2 puff INHALATION Q4H PRN PRN 02/24/19 Spironolactone 25 mg PO DAILY 02/24/19 Ondansetron [Zofran Odt] 4 mg PO Q8H PRN PRN #10 tab 03/24/19 Oxycodone HCl/Acetaminophen [Oxycodon-Acetaminophen 7.5-325] 1 tab PO Q6H PRN 05/02/19 Guaifenesin [Mucinex] 1,200 mg PO BID #30 tbmp.12hr 05/04/19 predniSONE tablet 40 mg PO DAILY 5 Days #10 tab 05/04/19 The following prescriptions were given: Guaifenesin [Mucinex] 1,200 mg PO BID #30 tbmp.12hr Transmission Status: Pending to [facility] [place] #30 predniSONE tablet 40 mg PO DAILY 5 Days #10 tab Transmission Status: Pending to [facility] [place] #30 Primary Care Physician: Juan De La Vega III, MD [Primary Care Provider] - Please follow up with your Primary Care Physician in: 1-2 weeks Test Results: Test results from this visit will be discussed in further detail at your follow-up appointment, if applicable. Proposed Discharge Date: 05/04/19
--- NOTE | 2019-05-04 10:30 | DS.PCM_ITS ---
Discharge Date and Diagnosis Date of Admission: 05/02/19 Date of Discharge: 05/04/19 - Primary Discharge Diagnosis acute hypoxic respiratory insufficiency acute bronchitis COPD exacerbation - Secondary Discharge Diagnosis Chronic Problems (Last Reviewed 12/24/18 @ 14:09 by TISH Blankenship) Headache (Chronic) COPD (chronic obstructive pulmonary disease) (Chronic) Obesity (BMI 30.0-34.9) (Chronic) Nicotine dependence (Chronic) Gout (Chronic) Degenerative cervical disc (Chronic) Chronic back pain (Chronic) Presence of automatic implantable cardioverter-defibrillator (Chronic) H/O coronary artery bypass surgery (Chronic ~2008) HUMPHREY-LAD, SVG-D1, SVG-OM Chronic renal failure, stage 3 (moderate) (Chronic) Chronic systolic (congestive) heart failure (Chronic) Stented coronary artery (Chronic ~12/2016) has had 7 stents as of 06/15/17 Ischemic cardiomyopathy (Chronic) 25% ejection fraction in November 2016 V-tach (Chronic) has an AICD Benign essential hypertension (Chronic) Gastroesophageal reflux disease (Chronic) Hyperlipidemia (Chronic) Type 2 diabetes mellitus (Chronic) Morbid obesity (Chronic) CAD (coronary artery disease) (Chronic) Hospital Course and Treatment Imaging Results: Diagnostic Data Chest X-Ray 05/02/19 09:08 IMPRESSION: No acute intrathoracic process or significant interval change. No evidence of acute failure. Electronically Signed: Hillary Yeboah MD at 9:30 EDT , Service support , Abdomen/Pelvis CT 05/02/19 10:41 IMPRESSION: No acute intra-abdominal or pelvic abnormality. Electronically Signed: Hillary Yeboah MD at 11:46 EDT , Service support , Chest CTA 05/02/19 10:41 IMPRESSION: No demonstrated pulmonary embolus. Mild emphysematous change. No evidence of acute failure. Atherosclerosis. Electronically Signed: Hillary Yeboah MD at 11:42 EDT , Service support , Operations: None Procedures: None Summary of Care Provided: The patient is a 69 year old M with an extensive past medical history as listed. He was admitted through the ED on 05/02/2019 with a complaint of shortness of breath was started the night before admission. He had associated wheezing and shortness of breath progressively got worse until he felt like he could even breathe at all. He used his nebulizer at home but it was not helping. He therefore called the squad. He was put on BiPAP immediately he got to the ED because of increased shortness of breath. His breathing at 24 breaths/min, vitals were otherwise within normal limits. Labs showed creatinine of 1.34 and BNP of 154.9. Troponin was less than 0.015. CBC showed no leukocytosis. Chest x-ray showed no acute intrathoracic process or significant interval change and n o evidence of acute heart failure. CT angiogram showed no demonstrated pulmonary embolus with mild emphysematous change and no evidence of acute failure. Pelvic CT showed no acute intra-abdominal or pelvic abnormality. EKG done showed evidence of lateral ischemia but this was present on previous EKGs as well. He has been admitted to be managed for acute hypoxic respiratory insufficiency likely due to acute bronchitis. He was started on IV solumedrol and breathing treatments. Respiratory panel was negative and urine for strep and Legionella antigens were also negative. Patient improved on IV Solu-Medrol and breathing treatments. He was transitioned off of oxygen. He remained stable and was discharged home on 05/04/2018 with a prescription for p.o. prednisone for 5 days. He is to follow-up with his primary care doctor. He was counseled to be compliant with his inhaler use and also abstain from smoking. Patient seen and examined prior to discharge. He had no complaints. Shortness of breath had improved significantly. Review of systems otherwise negative. Labs and vitals reviewed. Home medication reviewed and reconciled. o/e: Vital Signs Height 5 ft 8 in Weight: 214 lb 11.684 oz Weight in Pounds 214.7 lbs Pulse Ox 95 Temperature 97.6 F Pulse Rate 82 Respiratory Rate 20 Blood Pressure 123/57 Blood Pressure Position Sitting General: Alert, Oriented x3, Cooperative HEENT: Atraumatic, PERRLA, EOMI, Normocephalic Oral: Dry Mucosa Neck: Supple, No JVD, Negative Carotid Bruits Lungs: - -clear to auscultation Cardiovascular: Regular rate, Regular Rhythm, Normal S1, Normal S2, No murmurs Abdomen: Bowel Sounds Present, Soft, Non-Distended, No Hepato- splenomegaly,epigastric tenderness has resolved Extremities: No clubbing, No cyanosis, No edema, Capillary Refill Less than 3 Seconds Skin: No rashes, No breakdown Musculoskeletal: No Tenderness to Palpation of Joints or Extremities Lymphatic: No Cervical, Supraclavicular, or Inguinal Adenopathy Neurological: Cranial nerves II-XII grossly intact, Neuro grossly intact, Motor Exam 5/5 strength throughout Psych/Mental Status: Normal Affect, Appropriate, Alert and oriented to time, place, person, mood and affect Plan as above. - Physical Exam Vital Signs Temp Pulse Resp BP Pulse Ox 97.6 F L 82 20 H 123/57 H 95 05/04/19 09:00 05/04/19 09:09 05/04/19 09:00 05/04/19 09:00 05/04/19 09:00 Oxygen Flow Rate (L/min) 2 Oxygen Delivery Method Room Air Weight: 214 lb 11.684 oz Body Mass Index (BMI) 32.6 Intake and Output for Last 24 Hours 05/02/19 05/03/19 05/04/19 23:59 23:59 23:59 Intake Total 320 / 320 1330 / 1330 200 / 200 Balance 320 / 320 1330 / 1330 200 / 200 Microbiology Past 72 Hours 05/02/19 14:51 Respiratory Panel (PCR) - Final Mucosa - Nose 05/02/19 15:20 Legionella Antigen - Final Urine, Clean Catch 05/02/19 15:20 Streptococcus pneumoniae Antigen (M - Final Urine, Clean Catch Laboratory Tests Past 24 Hrs 05/04/19 05/04/19 06:15 06:15 WBC 9.6 RBC 4.07 L Hgb 12.2 L Hct 37.4 L MCV 91.9 MCH 30.0 MCHC 32.6 RDW Std Deviation 48.8 H RDW Coeff of Maggie 14.6 Plt Count 204 MPV 9.9 Immature Gran % (Auto) 0.300 Neut % (Auto) 86.5 H Lymph % (Auto) 7.3 L [place] % (Auto) 4.1 Eos % (Auto) 1.8 Baso % (Auto) 0.0 Absolute Neuts (auto) 8.3 H Absolute Lymphs (auto) 0.70 L Nucleated RBC % 0 Sodium 139 Potassium 4.2 Chloride 109 H Carbon Dioxide 23.0 Anion Gap 7 BUN 42 H Creatinine 1.29 Estim Creat Clear Calc 53.02 Est GFR (MDRD) Af Amer 71 Est GFR (MDRD) Non-Af 59 L BUN/Creatinine Ratio 32.6 H Glucose 168 H Calcium 8.5 POC Glucose 05/04/19 05/03/19 05/03/19 06:49 21:26 16:29 POC Glucose 161 H 207 H 147 H 05/03/19 11:10 POC Glucose 217 H Discharge Diet: Low fat/ Low Cholesterol Discharge Activity: Return to Normal Activity Weight Bearing Status: Weight bearing as tolerated Call your doctor if you observe: Fever of 101 or Higher, Shortness of breath, Dizziness, Fainting spells, Swelling in the ankles, Chest pain Home Medications: Medications to take at Discharge Isosorbide Mononitrate [Imdur] 30 mg PO DAILY 02/18/17 Albuterol Aerosols [Ventolin Aerosols] 2.5 mg INHALATION Q4H PRN PRN 02/23/17 Pantoprazole Sodium [Protonix] 40 mg PO DAILY 11/15/17 Lisinopril [Zestril] 2.5 mg PO DAILY 05/21/18 Rosuvastatin Calcium [Crestor] 40 mg PO DAILY 06/16/18 Clopidogrel Bisulfate [Plavix] 75 mg PO DAILY 09/01/18 Furosemide 40 mg PO DAILY 09/01/18 Allopurinol 300 mg PO DAILY 09/20/18 Metoprolol Succinate 100 mg PO DAILY 12/01/18 Nitroglycerin 0.4 mg SL PRN PRN 12/01/18 Nicotine [Nicoderm Cq] 21 mg TRANSDERM. DAILY patch 12/03/18 Aspirin [Aspir 81] 81 mg PO DAILY #1 tablet. 01/21/19 proMETHazine tablet [Phenergan tablet] 25 mg PO Q6H PRN PRN #10 tab 02/20/19 Albuterol Inhaler [Ventolin Hfa] 2 puff INHALATION Q4H PRN PRN 02/24/19 Spironolactone 25 mg PO DAILY 02/24/19 Ondansetron [Zofran Odt] 4 mg PO Q8H PRN PRN #10 tab 03/24/19 Oxycodone HCl/Acetaminophen [Oxycodon-Acetaminophen 7.5-325] 1 tab PO Q6H PRN 05/02/19 Guaifenesin [Mucinex] 1,200 mg PO BID #30 tbmp.12hr 05/04/19 predniSONE tablet 40 mg PO DAILY 5 Days #10 tab 05/04/19 Following Prescrptions Were Given to Patient: Guaifenesin [Mucinex] 1,200 mg PO BID #30 tbmp.12hr Transmission Status: Received by [facility] #30 predniSONE tablet 40 mg PO DAILY 5 Days #10 tab Transmission Status: Received by [facility] [place] #30 Primary Care Physician: Juan De La Vega III, MD [Primary Care Provider] - Please follow up with your Primary Care Physician in: 1-2 weeks Patient Instructions: Dyphylline, Guaifenesin Oral tablet, Chronic Lung Disease: Preventing Lung Infections, Chronic Lung Disease: Becoming More Active, Treatments for COPD Disposition: Home Minutes spent on discharge:: 40 Patient Condition:: Stable Medical Necessity - Tobacco Use Smoking Status: Former smoker Meaningful Use Info Meaningful Use Diagnoses (Choose all that apply): None applicable Code Visit Inpatient E&M: 36692 Disch Hosp
[2019-05-04 10:46] VITALS: RESP 20
== END 2019-05-04 10:28 | disposition home or self-care (01) ==
LOC: ED 09:21 → PCU 12:54
PROVIDERS: Admitting Provider Student in an Organized Health Care Education/Training Program; Emergency Provider Emergency Medicine; Family Provider Family Medicine; PCP Family Medicine; Referring Provider Student in an Organized Health Care Education/Training Program; Visit Provider Student in an Organized Health Care Education/Training Program
DX: J44.0 Chronic obstructive pulmonary disease with (acute) lower respiratory infection (principal); J20.9 Acute bronchitis, unspecified; J44.1 Chronic obstructive pulmonary disease with (acute) exacerbation; M1A.9XX0 Chronic gout, unspecified, without tophus (tophi); G89.29 Other chronic pain; K29.00 Acute gastritis without bleeding; E66.9 Obesity, unspecified; I13.0 Hypertensive heart and chronic kidney disease with heart failure and stage 1 through stage 4 chronic kidney disease, or unspecified chronic kidney disease; N18.3 Chronic kidney disease, stage 3 (moderate); I50.22 Chronic systolic (congestive) heart failure; K21.9 Gastro-esophageal reflux disease without esophagitis; R06.89 Other abnormalities of breathing; I25.10 Atherosclerotic heart disease of native coronary artery without angina pectoris; E78.5 Hyperlipidemia, unspecified; E11.22 Type 2 diabetes mellitus with diabetic chronic kidney disease; I25.5 Ischemic cardiomyopathy; Z68.32 Body mass index [BMI] 32.0-32.9, adult; Z71.3 Dietary counseling and surveillance; Z95.810 Presence of automatic (implantable) cardiac defibrillator; Z95.1 Presence of aortocoronary bypass graft; Z79.899 Other long term (current) drug therapy; Z79.02 Long term (current) use of antithrombotics/antiplatelets; Z79.82 Long term (current) use of aspirin; Z87.891 Personal history of nicotine dependence
CPT/HCPCS: 36415; 71045; 71275; 74177; 80048; 80076; 82962; 83690; 83880; 84484; 85025; 85610; 85730; 87449; 87633; 93005; 94002; 94640; 96372; 96374; 96375; 96376; 97802; 99218; 99251; 99285; J7030; Q9967; A4216; G0378; G0463; J2405

== ENCOUNTER 2019-05-13 08:31 | Emergency (ER) | payer MEDICARE, MEDICAID, SELFPAY ==
[2019-05-02 13:52] VITALS: BMI 32.6
[2019-05-13 08:33] VITALS: BP 107/59; PULSE 69; RESP 16; TEMP 36.2; O2SAT 93; BMI 32.5
--- NOTE | 2019-05-13 08:48 | RAD_ITS ---
STUDY: X-RAY - ACUTE ABDOMINAL SERIES REASON FOR EXAM: Male, 69 years old. 3 day history of nausea and vomiting. Dyspnea. TECHNIQUE: Single view of the chest. Supine, and erect view(s) of the abdomen were obtained. COMPARISON: Comparison is made with prior chest radiograph dated May 02, 2019. FINDINGS: Atelectasis and/or infiltrate at the left lung base. Mild increased linear markings at the right lung base suggestive of atelectasis and/or scarring. There is blunting of the left costophrenic angle. Prior CABG. A left-sided dual-chamber pacemaker is seen. Normal mediastinum and serjio. Normal visualized pulmonary arteries. There is atherosclerotic tortuosity of the aortic arch and descending thoracic aorta. There is a moderate amount of colonic fecal material. The soft tissue structures of the abdomen and pelvis are unremarkable. There are diffuse degenerative changes of the visualized lumbar spine. RAD/Acute Abdomen Inc Chest IMPRESSION: Moderate amount of fecal material is seen in the colon. Left basilar infiltration and mild right basilar atelectasis. Electronically Signed: Arcenio Leary, at 10:11 EDT , Service support ,
[2019-05-13 09:01] LABS: Bedside Glucose 143 mg/dL (70-110)
[2019-05-13 09:19] LABS: Absolute Neutrophil Count 7.4 X10^3/uL (2.0-7.7); Basophil# 0.01 X10^3/uL; Basophil% 0.1 % (0-1); Eosinophil# 0.05 X10^3/uL; Eosinophils% 0.5 % (0-5); Hematocrit 42.6 % (40-54); Hemoglobin 13.9 g/dL (13.0-16.5); Lymphocyte % 11.6 % (19-41); Mean Corp Hgb Conc 32.6 g/dL (32-36); Mean Corpuscular Hgb 30.7 pg (27.0-32.0); Mean Platelet Vol. 9.3 fl (6.2-12.0); Monocyte# 0.86 X10^3/uL; NRBC Flagged by Analyzer 0 % (0-5); Neutrophil # 7.42 X10^3/uL (2.7-7.7); Neutrophil % 78.1 % (47-70); Platelet Count 186 K/mm3 (150-450); RBC Distribution Width CV 15.4 % (11.6-14.6); RBC Distribution Width SD 53.2 fl (35.1-43.9); Red Blood Count 4.53 M/mm3 (4.6-6.2); White Blood Count 9.5 K/mm3 (4.4-11.0)
[2019-05-13] MEDS: 0.9% Normal Saline 1,000 ML 1000 ML IV (09:24)
[2019-05-13] MEDS: Ondansetron 4 MG/2 ML Vial IV (09:24)
[2019-05-13] MEDS: Mag Hydrox/Al Hydrox/Simeth 30 ML UDC PO (09:24)
[2019-05-13 09:33] LABS: ALB/GLOB Ratio 1.1 RATIO (0.9-2.4); AST(SGOT) 24 U/L (15-37); Alanine Aminotransfer ALT/SGPT 43 U/L (16-61); Albumin, Serum 3.6 g/dL (3.2-5.0); Alkaline Phosphatase 62 U/L (45-117); Anion Gap 9 (5-15); BUN 25 mg/dL (7-18); BUN/Creat Ratio 19.4 RATIO (10-20); Calcium,Total 8.8 mg/dL (8.5-10.1); Chloride 97 mmol/L (98-107); Creatinine, Serum 1.29 mg/dL (0.70-1.30); EST Glomerular Filtration Rate 59 mL/min (>60); Est Glom Filt Rate - Afr Amer 71 mL/min (>60); Estimated Creatinine Clearance 53.02 ml/min; Globulin 3.3 g/dL (2.2-4.2); Glucose 142 mg/dL (74-106); Lipase 94 U/L (73-393); Potassium 3.5 mmol/L (3.5-5.1); Protein, Total 6.9 g/dL (6.4-8.2); Sodium Level 135 mmol/L (136-145)
--- NOTE | 2019-05-13 09:47 | ED.VISSUMM ---
- ER Visit Summary Date of Service: 05/13/19 Chief Complaint: Nausea and vomiting History of Present Illness: The patient is a 69 M with nausea and vomiting for 3 days. Patient is currently having dry heaves. Last bowel movement was 3 or 4 days ago. He said he has had this before and attributes it to taking [id number]-ayr-[id number] remedies for pain like ibuprofen. He is concerned he may have an ulcer. He is not having abdominal pain. He is having a headache. He suspects this is secondary to his nausea and vomiting with decreased sleep. Past medical history includes coronary disease, COPD, GERD, type 2 diabetes, hypertension, hyperlipidemia, obstructive sleep apnea, gout, CKD, cardia myopathy, V. tach, implanted defibrillator, stents, hernia repair, back surgery. Patient takes aspirin and Plavix among his other medications. Physical Examination: Afebrile and vital signs are unremarkable. Patient is holding an emesis bag which is empty. He appears uncomfortable but not toxic or in distress. Head normal inspection. Cranial nerves grossly intact. Moves all extremities. Heart regular. Lungs clear. Abdomen soft, nontender, nondistended, normal bowel sounds, no masses. Test Results: Labs unremarkable except sodium 135, chloride 97, glucose 142, BUN 25. CBC, hepatic panel, lipase unremarkable. Urinalysis and x-rays pending. Emergency Department Course and Treatment: Patient treated with fluids, Zofran, GI cocktail while awaiting x-rays, labs, and urinalysis. On reevaluation, patient had continued nausea. He was treated with Phenergan and his nausea resolved. His headache resolved. X-ray showed moderate fecal burden with left basilar infiltrate and right basilar atelectasis. I do not believe the patient has pneumonia. He has no cough, no sputum, no shortness of breath, no fevers, no leukocytosis. He has no urinary symptoms. His metabolic panel and lipase were normal. On reevaluation, patient is resting. He is symptom-free. He will be discharged with a course of Phenergan. He has had multiple ER evaluations for this including multiple abdominal CTs. There is no indication for further emergent testing. Treatment Plan: As above Disposition: Discharge Impression: 1. Nausea vomiting This note was generated with [employer] software. It may contain incorrect words, spelling, and punctuation that were not noted in review of the chart prior to signing ED Disposition - Plan for ED Patient: Referrals: Juan De La Vega III, MD [Primary Care Provider] -
[2019-05-13] MEDS: proMETHazine 25 MG/ML Syringe 6.25 MG IV (10:01)
[2019-05-13 11:00] VITALS: BP 105/66; PULSE 73; RESP 16; O2SAT 92
--- NOTE | 2019-05-13 11:02 | ED.DEP ---
ED Disposition - Plan for ED Patient: Instructions: VOMITING (7y-Adult) Prescriptions: proMETHazine tablet [Phenergan] 25 mg PO Q8H PRN PRN #10 tab PRN Reason: Nausea Prescription Printed Referrals: Juan De La Vega III, MD [Primary Care Provider] -
== END 2019-05-13 11:30 | disposition home or self-care (01) ==
LOC: ED 09:19
PROVIDERS: Emergency Provider Emergency Medicine; Family Provider Family Medicine; PCP Family Medicine
DX: R11.2 Nausea with vomiting, unspecified (principal); R51 Headache; I25.10 Atherosclerotic heart disease of native coronary artery without angina pectoris; J44.9 Chronic obstructive pulmonary disease, unspecified; K21.9 Gastro-esophageal reflux disease without esophagitis; E78.00 Pure hypercholesterolemia, unspecified; G47.33 Obstructive sleep apnea (adult) (pediatric); M10.9 Gout, unspecified; E11.22 Type 2 diabetes mellitus with diabetic chronic kidney disease; I12.9 Hypertensive chronic kidney disease with stage 1 through stage 4 chronic kidney disease, or unspecified chronic kidney disease; N18.9 Chronic kidney disease, unspecified; I42.9 Cardiomyopathy, unspecified; I47.2 Ventricular tachycardia; Z95.810 Presence of automatic (implantable) cardiac defibrillator; Z79.02 Long term (current) use of antithrombotics/antiplatelets; Z79.82 Long term (current) use of aspirin; Z79.899 Other long term (current) drug therapy; Z72.0 Tobacco use
CPT/HCPCS: 74022; 80053; 82962; 83690; 85025; 96361; 96374; 96375; 99285; J7030; A4216; J2405

== ENCOUNTER 2019-06-16 10:07 | Emergency (ER) | payer MEDICARE, SELFPAY ==
[2019-06-16] VITALS (8 sets, daily range): BP systolic 90–105; BP diastolic 58–68; PULSE 67–112; RESP 14–25; TEMP 36.4–36.8; O2SAT 94–989; BMI 32.5
--- NOTE | 2019-06-16 10:21 | EKG12_ITS ---
Test Reason : DYSPNEA Blood Pressure : / mmHG Vent. Rate : 076 BPM Atrial Rate : 076 BPM P-R Int : 150 ms QRS Dur : 114 ms QT Int : 428 ms P-R-T Axes : 060 -21 128 degrees QTc Int : 481 ms Normal sinus rhythm ST & T wave abnormality, consider lateral ischemia Prolonged QT Abnormal ECG Confirmed by SKYLER LUNDBERG, [place]VER ([id number]), editor news HARINI STONE ([id number]) on 06/20/2019 9:15:54 AM Referred By: NICOLE Confirmed By:SHAKIRA HOLLAND MD
--- NOTE | 2019-06-16 10:22 | ED.VISSUMM ---
- ER Visit Summary Date of Service: 06/16/19 Chief Complaint: Shortness of breath with cough and nausea, vomiting and diarrhea History of Present Illness: The patient is a 69 M history of CAD, CHF, COPD not on home O2. He had quadruple bypass and 7 cardiac stents. Has a history of diet-controlled diabetes and A. fib for which he is on Plavix and aspirin. Patient states for 5 days ago he started having cough at times yellowish sputum. No hemoptysis. Really no chest pain. Progressive shortness of breath. No leg pain or swelling. No recent travel or surgery. He thinks he may have been hospitalized in either March or April. He is never had a DVT or PE and he had a recent CTA of his chest that was unremarkable. He denies any melena. Physical Examination: Older male vital signs stable except for his initial blood pressure 90/58. Pulse ox 96% on room air no signs of hypoxia. He is afebrile. He does not look septic or toxic. H EENT exam mildly dry mixed membranes. Neck nontender no JVD. Lungs coarse breath sounds throughout. Cough. Expiratory wheezing throughout. No rales or rhonchi. Heart regular rhythm no murmur. Chest wall nontender. Abdomen soft and nontender. Normal bowel sounds no peritoneal signs. He is moving all 4 extremities. There are neurovascular intact. Calves are nontender without edema. Neurologically is awake and alert with no focal motor deficits. Test Results: Chest x-ray shows chronic changes no acute process also prior sternotomy and left-sided pacer defibrillator. EKG sinus rhythm rate of 76 with no acute signs of MO. There are inverted T waves in V3 through V6. Will obtain an old EKG for comparison. CBC normal white count of 5. Hemoglobin 13. No bands chemistries normal except for creatinine of 1.7. Troponin normal BNP elevated to 28. Chest x-ray was one view read by myself and radiologist. Emergency Department Course and Treatment: Older male with COPD and shortness of breath. Rule out COPD flare versus pneumonia versus other etiologies. Also receive IV fluids for his hypotension and clinical dehydration. And IV Zofran for his nausea. He will also receive aerosols and Solu-Medrol IV. Repeat exam the patient is doing well at 12:57 PM. He states that his blood pressure is always in the 90s. He states they keep it that low to make it less work on his heart. Patient I went over all his test. Treatment Plan: Prednisone 40 mg a day for 1 week. Follow-up with his primary care physician. Return if worse. Disposition: Discharge Impression: Acute dyspnea acute bronchitis and COPD History of COPD History of prior quadruple bypass, CAD and stents This note was generated with [employer] dictation software. It may contain incorrect words, spelling, and punctuation that were not noted in review of the chart prior to signing ED Disposition - Plan for ED Patient: Referrals: Juan De La Vega III, MD [Primary Care Provider] -
[2019-06-16] MEDS: Ipratropium/Albuterol Sulfate 3 ML AMPUL.NEB INHALATION (10:32)
[2019-06-16] MEDS: Albuterol 2.5 MG/3 ML VIAL.NEB. INHALATION ×3 (10:32)
[2019-06-16] MEDS: MethylPREDNISolone 125 MG/2 ML Vial IV (10:40)
[2019-06-16] MEDS: Ondansetron 4 MG/2 ML Vial IV ×2 (10:40→12:44)
[2019-06-16 10:41] LABS: Absolute Lymphocyte Count 1.66 X10^3/uL (0.83-4.51); Basophil# 0.02 X10^3/uL; Basophil% 0.4 % (0-1); Eosinophil# 0.14 X10^3/uL; Eosinophils% 2.6 % (0-5); Hematocrit 41.8 % (40-54); Hemoglobin 13.7 g/dL (13.0-16.5); Lymphocyte # 1.66 X10^3/ul (4.0); Lymphocyte % 31.3 % (19-41); Mean Corp Hgb Conc 32.8 g/dL (32-36); Mean Corpuscular Hgb 30.9 pg (27.0-32.0); Mean Corpuscular Volume 94.1 fL (80-94); Mean Platelet Vol. 9.4 fl (6.2-12.0); Monocyte# 0.53 X10^3/uL; NRBC Flagged by Analyzer 0 % (0-5); Neutrophil # 2.95 X10^3/uL (2.7-7.7); Neutrophil % 55.5 % (47-70); Platelet Count 222 K/mm3 (150-450); RBC Distribution Width CV 14.4 % (11.6-14.6); RBC Distribution Width SD 49.6 fl (35.1-43.9); Red Blood Count 4.44 M/mm3 (4.6-6.2); White Blood Count 5.3 K/mm3 (4.4-11.0)
[2019-06-16 10:44] LABS: Anion Gap 8 (5-15); BUN 29 mg/dL (7-18); BUN/Creat Ratio 17.1 RATIO (10-20); Calcium,Total 9.1 mg/dL (8.5-10.1); Chloride 104 mmol/L (98-107); EST Glomerular Filtration Rate 43 mL/min (>60); Est Glom Filt Rate - Afr Amer 52 mL/min (>60); Estimated Creatinine Clearance 40.24 ml/min; Glucose 107 mg/dL (74-106); Potassium 4.3 mmol/L (3.5-5.1); Sodium Level 138 mmol/L (136-145)
[2019-06-16 11:12] LABS: BNP,B-Type NATRIURETIC PEPTIDE 228.2 pg/mL (0-100)
--- NOTE | 2019-06-16 11:25 | RAD_ITS ---
STUDY: X-RAY CHEST REASON FOR EXAM: Male, 69 years old. Shortness of breath. Wheezing and productive cough. TECHNIQUE: PA and lateral views of the chest. COMPARISON: Comparison is made with prior study May 13, 2019. FINDINGS: EKG electrodes are seen. Hyperinflation. Stable increased markings at the lung bases suggestive of scarring. Scattered calcified granulomas. There is no demonstrated pleural abnormality. Sternal cerclage wires and vascular clips are present from a prior sternotomy and coronary artery bypass graft procedure (CABG). A left-sided dual-chamber pacemaker is seen. Normal mediastinum and serjio. Normal visualized pulmonary arteries. There is atherosclerotic calcification of the aortic arch with tortuosity. There are mild degenerative changes of the visualized thoracic spine. Normal visualized ribs, clavicles, and shoulders. There is no demonstrated abnormality of the visualized soft tissue structures of the upper abdomen. RAD/Chest PA and Lateral IMPRESSION: Stable mild degree of increased markings at the lung bases suggestive of scarring. Electronically Signed: Arcenio Leary, at 12:35 EST , Service support ,
--- NOTE | 2019-06-16 13:18 | ED.DEP ---
ED Disposition - Plan for ED Patient: Disposition: Home or Assisted Living Instructions: BRONCHITIS with Wheezing (Adult), Copd Flare Prescriptions: predniSONE tablet 40 mg PO DAILY #7 tab Prescription Printed Azithromycin [Zithromax Z-Anthony] 250 mg PO UD #1 box Prescription Printed Referrals: Juan De La Vega III, MD [Primary Care Provider] - 3-5 Days if not improving Additional Instructions: This seems to be a viral bronchitis. I wrote you for an antibiotic but I would not start that unless you are not improving in the next 3 to 5 days. I do not think the antibiotic would be necessary. Prednisone 40 mg a day for the next 7 days for the wheezing you can start that tomorrow. We gave you IV steroids here today. Plenty of fluids and rest. Follow-up with your doctor.
== END 2019-06-16 13:33 | disposition home or self-care (01) ==
PROVIDERS: Emergency Provider Emergency Medicine; Family Provider Family Medicine; PCP Family Medicine
DX: J44.0 Chronic obstructive pulmonary disease with (acute) lower respiratory infection (principal); J20.9 Acute bronchitis, unspecified; E11.9 Type 2 diabetes mellitus without complications; I25.10 Atherosclerotic heart disease of native coronary artery without angina pectoris; I48.91 Unspecified atrial fibrillation; I50.9 Heart failure, unspecified; Z79.02 Long term (current) use of antithrombotics/antiplatelets; Z79.82 Long term (current) use of aspirin; Z95.1 Presence of aortocoronary bypass graft; Z95.5 Presence of coronary angioplasty implant and graft
CPT/HCPCS: 71046; 80048; 83880; 84484; 85025; 93005; 94640; 96361; 96374; 96375; 96376; 99251; 99284; J7040; A4216; G0463; J2405

== ENCOUNTER 2019-06-27 10:01 | Emergency (ER) | payer MEDICARE, SELFPAY ==
[2019-06-16 10:09] VITALS: BMI 32.5
[2019-06-27 10:03] VITALS: BP 114/72; PULSE 66; RESP 20; TEMP 36.4; O2SAT 95; BMI 31.9
[2019-06-27 10:14] VITALS: BP 114/72; PULSE 66; RESP 20; TEMP 36.4; O2SAT 95
--- NOTE | 2019-06-27 10:33 | EKG12_ITS ---
Test Reason : ILNESS Blood Pressure : / mmHG Vent. Rate : 063 BPM Atrial Rate : 063 BPM P-R Int : 146 ms QRS Dur : 106 ms QT Int : 444 ms P-R-T Axes : 063 -12 140 degrees QTc Int : 454 ms Normal sinus rhythm Incomplete left bundle branch block ST & T wave abnormality, consider anterolateral ischemia Abnormal ECG Confirmed by BERYL LUNDBERG, MICHELLE ([id number]), film editor supervisor COREY BRYANT ([id number]) on 06/29/2019 12:56:59 PM Referred By: SUSSY Confirmed By:MICHELLE CORDOBA MD
--- NOTE | 2019-06-27 10:33 | RAD_ITS ---
STUDY: X-RAY CHEST REASON FOR EXAM: Male, 69 years old. 4 day history of fatigue and productive cough. TECHNIQUE: PA and lateral views of the chest. COMPARISON: Comparison is made with prior study dated June 16, 2019. FINDINGS: EKG electrodes are seen. Hyperinflation. Stable mild increased markings at the lung bases suggestive of scarring. There is no demonstrated pleural abnormality. Sternal cerclage wires and vascular clips are present from a prior sternotomy and coronary artery bypass graft procedure (CABG). A left-sided dual-chamber pacemaker is seen. Normal mediastinum and serjio. Normal visualized pulmonary arteries. There is atherosclerotic calcification of the aortic arch with tortuosity. There are diffuse degenerative changes of the visualized thoracic spine. Normal visualized ribs, clavicles, and shoulders. There is no demonstrated abnormality of the visualized soft tissue structures of the upper abdomen. RAD/Chest PA and Lateral IMPRESSION: Hyperinflation. Stable increased markings at the lung bases suggestive of scarring. Electronically Signed: Arcenio Leary, at 12:33 EST , Service support ,
--- NOTE | 2019-06-27 10:35 | ED.VIS.GEN ---
History of Present Illness Chief Complaint: General Illness Detail of Chief Complaint: Fatigue, cough, headache, body aches Informant: Patient Onset: Days - 4 days Context: Gradual Onset Timing: Waxes and wanes Current Severity: Moderate Maximum Severity: Moderate Narrative: Patient presents with extreme fatigue and body aches over the past 4 days. He does report a frontal headache that is throbbing in nature. He has had cough with occasional white sputum. He does feel he is wheezing. He also reports some mid back pain. He denies fever but has noted chills. He states to his great granddaughters were around him for the holidays and did have strep throat. Patient denies having a sore throat or URI type symptoms. - Past Medical History (1) Benign essential hypertension Status: Chronic (2) CAD (coronary artery disease) Status: Chronic (3) COPD (chronic obstructive pulmonary disease) Status: Chronic (4) Chronic back pain Status: Chronic (5) Chronic renal failure, stage 3 (moderate) Status: Chronic (6) Chronic systolic (congestive) heart failure Status: Chronic (7) Gastroesophageal reflux disease Status: Chronic (8) Gout Status: Chronic (9) H/O coronary artery bypass surgery Status: Chronic Comment: HUMPHREY-LAD, SVG-D1, SVG-OM (10) Hyperlipidemia Status: Chronic (11) Ischemic cardiomyopathy Status: Chronic Comment: 25% ejection fraction in November 2016 (12) Presence of automatic implantable cardioverter-defibrillator Status: Chronic (13) Type 2 diabetes mellitus Status: Chronic Past Medical History - Allergies and Home Meds Allergies/Adverse Reactions: Allergies chlorpromazine HCl [From Thorazine] Allergy (Severe, Verified 06/27/19 10:03) Hives PER PATIENT tramadol HCl [From Ultram] Allergy (Severe, Verified 06/27/19 10:03) Hives PER PATIENT codeine Allergy (Intermediate, Verified 06/27/19 10:03) Hives atorvastatin Adverse Reaction (Intermediate, Verified 06/27/19 10:03) Other LEG PAIN/CRAMPS cyclobenzaprine [From Flexeril] Adverse Reaction (Verified 06/27/19 10:03) Upset Stomach naproxen Adverse Reaction (Verified 06/27/19 10:03) Upset Stomach promethazine [From Phenergan] Adverse Reaction (Verified 06/27/19 10:03) Other CONFUSION Primary Care Physician: Juan De La Vega III, MD [Primary Care Provider] - 1 Week if not improving Prior records reviewed: Yes Surgical History: angioplasty - stents x10, coronary bypass surgery, - - AICD placement, back surgery x 2, hernia repair Smoking Status: Current every day smoker - Family History Paternal Family History: Family History (Last Reviewed 12/24/18 @ 14:09 by TISH Blaneknship) Brother CAD (coronary artery disease) Myocardial infarction Sudden cardiac Mother Cancer Hypertension Father Cancer COPD (chronic obstructive pulmonary disease) Family History: Reports: Cancer, Heart Disease Maternal Family History: Family History (Last Reviewed 12/24/18 @ 14:09 by TISH Blankenship) Brother CAD (coronary artery disease) Myocardial infarction Sudden cardiac Mother Cancer Hypertension Father Cancer COPD (chronic obstructive pulmonary disease) Family History: Reports: - - Patient notes a paternal family history of chronic lung disease, lung cancer with history of tobacco use. Review of Systems General: Reports: Chills. Denies: Fever Eyes: Denies: Visual changes - bilaterally ENT: Denies: Bilateral ear pain, Sore throat Cardiovascular: Denies: Chest pain Respiratory: Reports: Dyspnea, Cough, Sputum Gastrointestinal: Denies: Vomiting, Diarrhea, Constipation Genitourinary: Denies: Dysuria Musculoskeletal: Reports: Myalgias, Back pain Skin: Denies: Rash Neurological: Reports: Headache, Weakness - Generalized weakness Allergy: Denies: Uticaria Physical Exam Vital Signs/Narrative: Vital Signs Temp Pulse Resp BP Pulse Ox 06/27/19 10:14 97.6 F L 66 20 H 114/72 95 06/27/19 10:03 97.6 F L 66 20 H 114/72 95 Inital Vital Signs reviewed: Yes General: Well nourished, Well developed Head: Normocephalic ENT: Moist mucous membranes Neck: Supple Cardiovascular: Regular rate, Regular rhythm Respiratory: Wheezing - Mild end expratory wheezes Abdomen: Soft, Nontender, Hypoactive bowel sounds Extremities: Nontender, No edema Skin: Normal color, No rash Neurological: Alert, Oriented x3 Psychological: Normal affect Diagnostic/Tx/Re-eval Impressions Chest X-Ray 06/27/19 10:33 IMPRESSION: Hyperinflation. Stable increased markings at the lung bases suggestive of scarring. Electronically Signed: Arcenio Leary, at 12:33 EST , Service support , 06/27/19 10:33 Chest PA and Lateral [RAD] Stat 06/27/19 10:48 Mucosa - Nasopharyngeal Influenza Types A,B Direct FA ([facility]) - Final Laboratory Results 06/27/19 06/27/19 11:13 11:13 WBC 8.6 RBC 4.45 L Hgb 13.8 Hct 42.2 MCV 94.8 H MCH 31.0 MCHC 32.7 RDW Std Deviation 49.1 H RDW Coeff of Maggie 14.2 Plt Count 203 MPV 9.3 Immature Gran % (Auto) 0.800 Neut % (Auto) 66.7 Lymph % (Auto) 19.3 [place]iebach % (Auto) 11.6 H Eos % (Auto) 1.2 Baso % (Auto) 0.4 Absolute Neuts (auto) 5.7 Absolute Lymphs (auto) 1.65 Nucleated RBC % 0 Sodium 137 Potassium 4.4 Chloride 106 Carbon Dioxide 23.0 Anion Gap 8 BUN 34 H Creatinine 1.77 H Estim Creat Clear Calc 38.64 Est GFR (MDRD) Af Amer 49 L Est GFR (MDRD) Non-Af 41 L BUN/Creatinine Ratio 19.2 Glucose 97 Calcium 8.7 - EKG Initial EKG Interpretation: Sinus Rhythm - Sinus at 63. Include left bundle branch block is noted. This is not significantly changed when compared to prior study. He has chronic T inversions in anterolateral precordial leads that are also unchanged. - Medical Decision Making Patient was initially treated with Toradol, Reglan, Benadryl, and IV fluids. On repeat exam patient reported no improvement in his symptoms. He was given a single dose of Dilaudid. At this time patient is resting more comfortably. He does report improvement in his symptoms. I believe his symptoms are all consistent with viral syndrome. He is instructed to use Tylenol or ibuprofen and increase fluids. ED Disposition - Plan for ED Patient: Disposition: Home or Assisted Living Diagnosis: Viral syndrome Instructions: VIRAL SYNDROME (Adult) Referrals: Juan De La Vega III, MD [Primary Care Provider] - 1 Week if not improving
[2019-06-27 11:22] LABS: Absolute Lymphocyte Count 1.65 X10^3/uL (0.83-4.51); Absolute Neutrophil Count 5.7 X10^3/uL (2.0-7.7); Basophil# 0.03 X10^3/uL; Basophil% 0.4 % (0-1); Eosinophils% 1.2 % (0-5); Hematocrit 42.2 % (40-54); Hemoglobin 13.8 g/dL (13.0-16.5); Lymphocyte # 1.65 X10^3/ul (4.0); Lymphocyte % 19.3 % (19-41); Mean Corp Hgb Conc 32.7 g/dL (32-36); Mean Corpuscular Volume 94.8 fL (80-94); Mean Platelet Vol. 9.3 fl (6.2-12.0); Monocyte# 0.99 X10^3/uL; Monocyte% 11.6 % (0-10); NRBC Flagged by Analyzer 0 % (0-5); Neutrophil # 5.72 X10^3/uL (2.7-7.7); Neutrophil % 66.7 % (47-70); Platelet Count 203 K/mm3 (150-450); RBC Distribution Width CV 14.2 % (11.6-14.6); RBC Distribution Width SD 49.1 fl (35.1-43.9); Red Blood Count 4.45 M/mm3 (4.6-6.2); White Blood Count 8.6 K/mm3 (4.4-11.0)
[2019-06-27 11:33] LABS: Anion Gap 8 (5-15); BUN 34 mg/dL (7-18); BUN/Creat Ratio 19.2 RATIO (10-20); Calcium,Total 8.7 mg/dL (8.5-10.1); Chloride 106 mmol/L (98-107); Creatinine, Serum 1.77 mg/dL (0.70-1.30); EST Glomerular Filtration Rate 41 mL/min (>60); Est Glom Filt Rate - Afr Amer 49 mL/min (>60); Estimated Creatinine Clearance 38.64 ml/min; Glucose 97 mg/dL (74-106); Potassium 4.4 mmol/L (3.5-5.1); Sodium Level 137 mmol/L (136-145)
[2019-06-27] MEDS: 0.9% Normal Saline 1,000 ML 1000 ML IV (11:36)
[2019-06-27] MEDS: DiphenhydrAMINE 50 MG/ML Syringe 25 MG IV (11:37)
[2019-06-27] MEDS: Ketorolac 30 MG/ML Syringe IV (11:38)
[2019-06-27] MEDS: Metoclopramide 10 MG/2 ML Vial IV (11:39)
[2019-06-27 11:40] VITALS: BP 114/72; PULSE 66; RESP 20; TEMP 36.4; O2SAT 95
[2019-06-27 12:10] VITALS: PULSE 60; RESP 20; TEMP 36.4; O2SAT 95
[2019-06-27] MEDS: HYDROmorphone 1 MG/ML Syringe IV (12:53)
[2019-06-27] MEDS: 0.9% Normal Saline 1,000 ML 150 ML IV (12:54)
[2019-06-27 14:42] VITALS: BP 139/57; PULSE 84; RESP 16; O2SAT 97
== END 2019-06-27 14:43 | disposition home or self-care (01) ==
PROVIDERS: Emergency Provider Emergency Medicine; Family Provider Family Medicine; PCP Family Medicine
DX: B34.9 Viral infection, unspecified (principal); R53.83 Other fatigue; R51 Headache; R05 Cough; R68.83 Chills (without fever); R06.00 Dyspnea, unspecified; M79.10 Myalgia, unspecified site; R53.1 Weakness; M54.9 Dorsalgia, unspecified; G89.29 Other chronic pain; I44.7 Left bundle-branch block, unspecified; I25.10 Atherosclerotic heart disease of native coronary artery without angina pectoris; J44.9 Chronic obstructive pulmonary disease, unspecified; E11.22 Type 2 diabetes mellitus with diabetic chronic kidney disease; I13.0 Hypertensive heart and chronic kidney disease with heart failure and stage 1 through stage 4 chronic kidney disease, or unspecified chronic kidney disease; N18.3 Chronic kidney disease, stage 3 (moderate); I50.22 Chronic systolic (congestive) heart failure; K21.9 Gastro-esophageal reflux disease without esophagitis; M10.9 Gout, unspecified; E78.5 Hyperlipidemia, unspecified; I25.5 Ischemic cardiomyopathy; Z95.810 Presence of automatic (implantable) cardiac defibrillator; Z79.82 Long term (current) use of aspirin; Z79.02 Long term (current) use of antithrombotics/antiplatelets; Z79.899 Other long term (current) drug therapy; F17.200 Nicotine dependence, unspecified, uncomplicated
CPT/HCPCS: 71046; 80048; 85025; 87804; 93005; 96361; 96374; 96375; 99285; J7030; J7040; A4216

== ENCOUNTER 2019-06-29 05:21 | Inpatient (IN) | payer MEDICARE, MEDICAID, SELFPAY ==
[2019-06-29] VITALS (23 sets, daily range): BP systolic 96–141; BP diastolic 57–90; PULSE 74–128; RESP 14–33; TEMP 36.6–36.9; O2SAT 92–98; BMI 32.7; BMI 32.3
--- NOTE | 2019-06-29 05:23 | ED.RN ---
CALLED FOR EKG PER RN REQUEST, PULLED OLD EKGS FOR
--- NOTE | 2019-06-29 05:41 | EKG12_ITS ---
Test Reason : CP Blood Pressure : / mmHG Vent. Rate : 125 BPM Atrial Rate : 125 BPM P-R Int : 132 ms QRS Dur : 102 ms QT Int : 340 ms P-R-T Axes : 064 -27 115 degrees QTc Int : [address] & T wave abnormality, consider lateral ischemia Abnormal ECG Confirmed by GERONIMO BLOOM ([id number]), assistant editor LANDRY YARBROUGH ([id number]) on 07/03/2019 9:06:33 AM Referred By: Confirmed By:GERONIMO BLOOM
--- NOTE | 2019-06-29 05:41 | RAD_ITS ---
STUDY: X-RAY CHEST REASON FOR EXAM: Male, 69 years old. Chest pain and chronic shortness of breath. TECHNIQUE: AP portable chest. COMPARISON: June 27, 2019 and June 16, 2019. FINDINGS: The heart is not enlarged. Lungs are hyperinflated. There is now mild patchy density at both lung bases which could represent subsegmental atelectasis or pneumonia. No effusions. No pneumothorax. Sternal wires are present. Cardiac pacemaker overlies left hemithorax. Osseous structures unchanged. There is no demonstrated abnormality of the visualized soft tissue structures of the upper abdomen. RAD/Chest 1 View (Portable) IMPRESSION: Mild lower lobe densities compatible with either subsegmental atelectasis or possibly early pneumonia. COPD. Electronically Signed: Serge Ruvalcaba MD at 6:28 EST , Service support ,
--- NOTE | 2019-06-29 05:45 | ED.DCSUM_ITS ---
- ER Visit Summary Date of Service: 06/29/19 Chief Complaint: Chest pain History of Present Illness: The patient is a 69 M who has a long history of coronary artery disease as well as COPD. He comes to us tonight stating that he was awoken out of sleep feeling short of breath and having chest pain. Sharp and stabbing but also pressure component. Symptoms are worse with cough movement touch and deep breathing. He notes a productive cough. He was in the emergency department a couple days ago is diagnosed with a viral syndrome. He states his cough and his breathing have worsened since that time. He does not have a thermometer at home to know if he has had a fever or not. But he was in the emergency department couple days ago his flu swab was negative his chest x- ray was negative for infiltrate. Physical Examination: Afebrile vital signs are stable noted heart rate in the 120s. Initially there is a triage respiratory rate of 33 however this was an air and is actually 17 and unlabored Gen: Well-nourished well-developed Head: Normocephalic atraumatic Eyes: Perrl EOMI ENT: TMs clear no rhinorrhea moist mucous membranes Neck: Supple no lymphadenopathy no JVD nontender CVS: Regular rate rhythm no murmurs normal S1-S2 Respiratory: No distress chest is tender to palpation over the anterior chest. He has inspiratory and expiratory wheezing. Moist cough. Abdomen: Soft nontender nondistended normal bowel sounds no masses Back: Nontender Extremity: Nontender no edema Skin: Normal color no rash Neuro: alert orientated ?3 CN II-XII intact normal strength sensation reflexes Psych: Normal affect normal mood Test Results: EKG shows a sinus tachycardia at a rate of 125. White count is 8 with a hemoglobin of 13. Creatinine 1.34 glucose 170. Troponin elevated 0.67. Emergency Department Course and Treatment: Patient received breathing treatments and Solu-Medrol. Patient has remained tachycardic. Given his tachycardia chest pain bump in his troponin a CT Yareli of the chest was ordered to rule out pulmonary embolism because he has high pretest probability. He received fentanyl for pain. Impression: 1. Acute COPD exacerbation 2. Chest wall pain This note was generated with [employer] dictation software. It may contain incorrect words, spelling, and punctuation that were not noted in review of the chart prior to signing ED Disposition - Plan for ED Patient: Referrals: Juan De La Vega III, MD [Primary Care Provider] -
[2019-06-29] MEDS: MethylPREDNISolone 125 MG/2 ML Vial IV (05:49)
[2019-06-29] MEDS: Albuterol 2.5 MG/3 ML VIAL.NEB. INHALATION ×2 (05:54)
[2019-06-29] MEDS: Ipratropium/Albuterol Sulfate 3 ML AMPUL.NEB INHALATION ×3 (05:54→15:31)
[2019-06-29 05:57] LABS: Absolute Neutrophil Count 5.6 X10^3/uL (2.0-7.7); Basophil# 0.04 X10^3/uL; Basophil% 0.5 % (0-1); Eosinophil# 0.14 X10^3/uL; Eosinophils% 1.8 % (0-5); Hematocrit 41.3 % (40-54); Hemoglobin 13.4 g/dL (13.0-16.5); Lymphocyte % 13.8 % (19-41); Mean Corp Hgb Conc 32.4 g/dL (32-36); Mean Corpuscular Hgb 30.9 pg (27.0-32.0); Mean Corpuscular Volume 95.2 fL (80-94); Mean Platelet Vol. 9.3 fl (6.2-12.0); Monocyte# 1.01 X10^3/uL; Monocyte% 12.7 % (0-10); NRBC Flagged by Analyzer 0 % (0-5); Neutrophil # 5.62 X10^3/uL (2.7-7.7); Neutrophil % 70.7 % (47-70); Platelet Count 204 K/mm3 (150-450); RBC Distribution Width CV 14.1 % (11.6-14.6); RBC Distribution Width SD 49.1 fl (35.1-43.9); Red Blood Count 4.34 M/mm3 (4.6-6.2)
[2019-06-29 06:14] LABS: Anion Gap 8 (5-15); BUN 22 mg/dL (7-18); BUN/Creat Ratio 16.4 RATIO (10-20); Calcium,Total 8.7 mg/dL (8.5-10.1); Chloride 110 mmol/L (98-107); Creatinine, Serum 1.34 mg/dL (0.70-1.30); EST Glomerular Filtration Rate 56 mL/min (>60); Est Glom Filt Rate - Afr Amer 68 mL/min (>60); Estimated Creatinine Clearance 51.04 ml/min; Glucose 170 mg/dL (74-106); Potassium 4.2 mmol/L (3.5-5.1); Sodium Level 142 mmol/L (136-145)
[2019-06-29 06:26] LABS: AST(SGOT) 20 U/L (15-37); Alanine Aminotransfer ALT/SGPT 29 U/L (16-61); Albumin, Serum 3.2 g/dL (3.2-5.0); Alkaline Phosphatase 87 U/L (45-117); Bilirubin, Direct 0.06 mg/dL (0.00-0.30); Globulin 3.7 g/dL (2.2-4.2); Protein, Total 6.9 g/dL (6.4-8.2)
--- NOTE | 2019-06-29 06:34 | CT_ITS ---
STUDY: CTA CHEST REASON FOR EXAM: Male, 69 years old. Chest pain. RADIATION DOSAGE (If Supplied By Facility): CTDIvol = ( 13.44 ) mGy, DLP = ( 533.70 ) mGycm TECHNIQUE: The examination was performed with the intravenous administration of Isovue-370. Post-processing of the angiographic images was performed, with multiplanar reformation and 3D reconstruction. Individualized dose optimization techniques were used for this CT. COMPARISON: Comparison is made with prior study dated May 02, 2019. FINDINGS: Normal enhancement of the main pulmonary artery and right and left pulmonary arteries. Normal enhancement of the bilateral peripheral pulmonary arteries. There is no demonstrated pulmonary embolism. Normal thoracic aorta and visualized great vessels. There is no demonstrated aortic dissection. There are dual chamber pacemaker electrode leads in satisfactory position. There are calcifications of the coronary arteries. Prior CABG. There are visualized mediastinal lymph nodes, which are within normal size limits, and with normal morphology. Normal hilar regions. Normal visualized trachea and bronchi. The lungs are well expanded. Mild degree of emphysematous changes in the upper lobes. Mild degree of blood bibasilar scarring more prominent on the right lung base. Normal pleura. Normal chest wall structures. There are mild degenerative changes of thoracic spine. Mild degree of left perinephric stranding. CT/CTA Chest W/WO Contrast IMPRESSION: No evidence of pulmonary embolism. Mild degree of emphysematous changes in the lung apices as well as mild scarring at the bases. Electronically Signed: Arcenio Leary, at 9:08 EST , Service support ,
[2019-06-29] MEDS: fentaNYL 100 MCG/2 ML Ampul 50 MCG IV (06:35)
--- NOTE | 2019-06-29 06:53 | PCM.HP.STD ---
Problem List (1) COPD exacerbation Status: Acute (2) Acute respiratory distress Status: Acute (3) Cardiac enzymes elevated Status: Acute (4) ARIADNA (obstructive sleep apnea) Status: Suspected (5) Obesity (BMI 30.0-34.9) Status: Chronic (6) Chronic back pain Status: Chronic Qualifiers: Back pain location: back pain in unspecified location Back pain laterality: unspecified Qualified Code(s): M54.9 - Dorsalgia, unspecified; G89.29 - Other chronic pain (7) Presence of automatic implantable cardioverter-defibrillator Status: Chronic (8) H/O coronary artery bypass surgery Status: Chronic Comment: HUMPHREY-LAD, SVG-D1, SVG-OM (9) Chronic renal failure, stage 3 (moderate) Status: Chronic (10) Chronic systolic (congestive) heart failure Status: Chronic (11) Ischemic cardiomyopathy Status: Chronic Comment: 25% ejection fraction in November 2016 (12) V-tach Status: Chronic Comment: has an AICD (13) Benign essential hypertension Status: Chronic (14) Gastroesophageal reflux disease Status: Chronic Qualifiers: Esophagitis presence: esophagitis presence not specified (15) Hyperlipidemia Status: Chronic Qualifiers: Hyperlipidemia type: unspecified Qualified Code(s): E78.5 - Hyperlipidemia, unspecified (16) Type 2 diabetes mellitus Status: Chronic Qualifiers: Diabetes mellitus long term care pharmacist insulin use: without chcf use Diabetes mellitus complication status: with other specified complication Qualified Code(s): E11.69 - Type 2 diabetes mellitus with other specified complication (17) CAD (coronary artery disease) Status: Chronic Qualifiers: Coronary Disease-Associated Artery/Lesion type: unspecified vessel or lesion type [place] vs. transplanted heart: unspecified whether lummi or transplanted heart Associated angina: angina presence unspecified Qualified Code(s): I25.10 - Atherosclerotic heart disease of lummi coronary artery without angina pectoris History of Present Illness Date of Admission: 06/29/19 Chief Complaint: Chest pain, dyspnea The patient is a 69 y/o M w/ PMHx: CAD s/p CABG and PCI x 10, Diabetes mellitus type II, Obesity, HTN, HLD, Chronic COPD, Tobacco use history, Chronic Back Pain, Chronic Systolic CHF/Ischemic Cardiomyopathy, Hx VT s/p AICD placement, PVD w/ chronic claudication, CKD stage III (baseline Cr 1.6) who presents to the [facility] ED on 06/29/19 with history of ongoing fatigue, malaise, productive cough with dyspnea and wheezing with recent outpatient Z-Anthony treatment for suspected bronchitis without market improvement with onset of midsternal chest discomfort, 10 out of 10 in severity, described as a aching with radiation to the left upper extremity with increased dyspnea above baseline with no diaphoresis, nausea or emesis occurring the evening prior to admission with self administration of sublingual nitroglycerin x3 with resolution however recurred at approximately 3 AM on day of ED presentation awakening him from sleep, identical in appearance but not resolving with worsened dyspnea and notable wheezing prompting presentation to the ED. Work-up in the ED included T 98.3, heart rate 122, BP 120/60, respiratory rate 17, 92% on room air, CBC with RBC 8, hemoglobin 13.4, platelet 204 with not market left shift evident, coags pending, CMP with chloride 110, BUN/creatinine 22/1.34, glucose 170, lactic acid pending, troponin 0.627, blood culture x2 pending per ED, chest x-ray with mild lower lobe densities compatible with either sub-segmental atelectasis or possibly early pneumonia with chronic COPD changes, EKG with sinus tachycardia with no acute evidence of ischemia. In the ED patient administered Solu-Medrol 125 Milgram IV x1, fentanyl, DuoNeb, albuterol therapies. Refused ASA from squad secondary to history of ulcer. CTPA pending upon requested evaluation of patient. Per discussion with ED physician patient additionally administered lovenox 100 mg SQ x 1 now. Past Medical History Past Medical History (Chronic Problems): Chronic Problems (Last Reviewed 12/24/18 @ 14:09 by Marlene Robles NP-Beth) Headache (Chronic) COPD (chronic obstructive pulmonary disease) (Chronic) Obesity (BMI 30.0-34.9) (Chronic) Nicotine dependence (Chronic) Gout (Chronic) Degenerative cervical disc (Chronic) Chronic back pain (Chronic) Presence of automatic implantable cardioverter-defibrillator (Chronic) H/O coronary artery bypass surgery (Chronic ~2008) HUMPHREY-LAD, SVG-D1, SVG-OM Chronic renal failure, stage 3 (moderate) (Chronic) Chronic systolic (congestive) heart failure (Chronic) Stented coronary artery (Chronic ~12/2016) has had 7 stents as of 06/15/17 Ischemic cardiomyopathy (Chronic) 25% ejection fraction in November 2016 V-tach (Chronic) has an AICD Benign essential hypertension (Chronic) Gastroesophageal reflux disease (Chronic) Hyperlipidemia (Chronic) Type 2 diabetes mellitus (Chronic) Morbid obesity (Chronic) CAD (coronary artery disease) (Chronic) Medical History: Medical History (Last Reviewed 12/24/18 @ 14:09 by Marlene Robles NP-C) Nicotine dependence (Chronic) F17.200 Gout (Chronic) M10.9 Degenerative cervical disc (Chronic) M50.30 Chronic back pain (Chronic) M54.9, G89.29 Chronic renal failure, stage 3 (moderate) (Chronic) N18.3 Chronic systolic (congestive) heart failure (Chronic) I50.22 Ischemic cardiomyopathy (Chronic) I25.5 25% ejection fraction in November 2016 V-tach (Chronic) I47.2 has an AICD Benign essential hypertension (Chronic) I10 Gastroesophageal reflux disease (Chronic) K21.9 Hyperlipidemia (Chronic) E78.5 Type 2 diabetes mellitus (Chronic) E11.9 Morbid obesity (Chronic) E66.01 CAD (coronary artery disease) (Chronic) I25.10 Tubular adenoma of colon (Inactive) D12.6 Allergies chlorpromazine HCl [From Thorazine] Allergy (Severe, Verified 06/29/19 05:29) Hives PER PATIENT tramadol HCl [From Ultram] Allergy (Severe, Verified 06/29/19 05:29) Hives PER PATIENT codeine Allergy (Intermediate, Verified 06/29/19 05:29) Hives atorvastatin Adverse Reaction (Intermediate, Verified 06/29/19 05:29) Other LEG PAIN/CRAMPS cyclobenzaprine [From Flexeril] Adverse Reaction (Verified 06/29/19 05:29) Upset Stomach naproxen Adverse Reaction (Verified 06/29/19 05:29) Upset Stomach promethazine [From Phenergan] Adverse Reaction (Verified 06/29/19 05:29) Other CONFUSION Home Medications: Ambulatory Orders Medication Instructions Recorded Isosorbide Mononitrate [Imdur] 30 mg PO DAILY 02/18/17 Albuterol Aerosols [Ventolin 2.5 mg INHALATION Q4H PRN PRN 02/23/17 Aerosols] Pantoprazole Sodium [Protonix] 40 mg PO DAILY 11/15/17 Lisinopril [Zestril] 2.5 mg PO DAILY 05/21/18 Rosuvastatin Calcium [Crestor] 40 mg PO DAILY 06/16/18 Clopidogrel Bisulfate [Plavix] 75 mg PO DAILY 09/01/18 Allopurinol 300 mg PO DAILY 09/20/18 Metoprolol Succinate 100 mg PO DAILY 12/01/18 Nitroglycerin 0.4 mg SL PRN PRN 12/01/18 Nicotine [Nicoderm Cq] 21 mg TRANSDERM. DAILY patch 12/03/18 Aspirin [Aspir 81] 81 mg PO DAILY #1 tablet. 01/21/19 Albuterol Inhaler [Ventolin Hfa] 2 puff INHALATION Q4H PRN PRN 02/24/19 Spironolactone 25 mg PO DAILY 02/24/19 Ondansetron [Zofran Odt] 4 mg PO Q8H PRN PRN #10 tab 03/24/19 Oxycodone HCl/Acetaminophen 1 tab PO Q6H PRN 05/02/19 [Oxycodon-Acetaminophen 7.5-325] proMETHazine tablet [Phenergan] 25 mg PO Q8H PRN PRN #10 tab 05/13/19 Azithromycin [Zithromax Z-Anthony] 250 mg PO UD #1 box 06/16/19 predniSONE tablet 40 mg PO DAILY #7 tab 06/16/19 furosemide 40 mg tablet 40 mg PO DAILY #90 tab 06/27/19 Surgical History: Surgical History (Last Reviewed 12/24/18 @ 14:09 by Marlene Robles COLLECTIVE BARGAINING SPECIALIST-C) Presence of automatic implantable cardioverter-defibrillator (Chronic) Z95.810 H/O coronary artery bypass surgery (Chronic) Onset Date: ~2008 Z95.1 HUMPHREY-LAD, SVG-D1, SVG-OM Stented coronary artery (Chronic) Onset Date: ~12/2016 has had 7 stents as of 06/15/17 Hx of hernia repair (Inactive) Z98.890, Z87.19 Previous back surgery (Inactive) Z98.890 Surgical History: angioplasty - stents x10, coronary bypass surgery, - - AICD placement, back surgery x 2, hernia repair Psychiatric History: No pertinent psych hx Lives: Spouse/ Significant Other Smoking Status: Current every day smoker - Ongoing usage 21 mg patch with 1-2 cig daily, has not decreased his patch since initiation several months prior. Tobacco Use: Cigarettes Alcohol: None, Sober - Sober x 26 years. Drugs: None - *Family History Paternal Family History: Family History (Last Reviewed 12/24/18 @ 14:09 by TISH Blankenship) Brother CAD (coronary artery disease) Myocardial infarction Sudden cardiac Mother Cancer Hypertension Father Cancer COPD (chronic obstructive pulmonary disease) History Items: Cancer, Heart Disease Maternal Family History: Family History (Last Reviewed 12/24/18 @ 14:09 by TISH Blankenship) Brother CAD (coronary artery disease) Myocardial infarction Sudden cardiac Mother Cancer Hypertension Father Cancer COPD (chronic obstructive pulmonary disease) History Items: - - Patient notes a paternal family history of chronic lung disease, lung cancer with history of tobacco use. Review of Systems Constitutional: Reports: Anorexia, Malaise, Weakness, Fatigue. Denies: Chills, Fever, Weight Change HEENT: Denies: Head Aches, Sinus Congestion, Sinus Drainage Cardiovascular: Reports: Chest Pain, Edema. Denies: Chest Pressure, Chest Tightness, Light Headedness, Orthopnea, Palpitations, Syncope Respiratory: Reports: Cough, Shortness of Breath, Shortness of breath at rest, Shortness of breath upon exertion, Sputum production, Wheezing Gastrointestinal: Denies: Abdominal Pain, Nausea, Vomiting Genitourinary: Denies: Dysuria Musculoskeletal: Reports: Arm Pain, Back Pain, Joint Pain. Denies: Joint Tenderness Skin: Denies: Rash, Wounds Neurological: Denies: Numbness, Tingling, Focal weakness Psychiatric: Denies: Anxiety, Depression, Homicidal Ideations, Suicidal Ideations Hematologic/ Lymphatic: Reports: Easy Bruising, Easy Bleeding VTE Information - Inpt Only VTE Present on Admission: No VTE Mechan Device Prophylaxis: SCD's VTE Pharm Prophylaxis ordered?: Yes Patient Problems: Active and Suspected Problems (Last Reviewed 12/24/18 @ 14:09 by TISH Blankenship) COPD exacerbation (Acute) Acute respiratory distress (Acute) Cardiac enzymes elevated (Acute) Subjective: Seated upright in the ED bed, fatigued and ill appearance, hoarse voice, noting ongoing midsternal chest discomfort with radiation to his left upper extremity, moderately reproducible. Objective: Physical Examination: General: awake, alert, oriented x 3 and cooperative, seated upright in the ED bed, fatigued appearance, ongoing chest pain, 10/10, aching with radiation to LUE. Skin: normal color, turgor, no icterus, cyanosis. HEENT: AT/NC, EOMI, PERRLA, moderately dry MM, no carotid bruits or JVD noted. Lungs: Severely diminished, > bases, poor effort, no marked coughing during examination, mild reproducible pain w/ palpation anterior chest, rhonchorous, diffuse end expiratory wheezing, increased RR, accessory muscle usage evidence, requesting ABG. Heart: Regular rate and rhythm; no gallop, rub audible, moderate reproducible discomfort with palpation of anterior chest. Abdomen: soft, obese, NTTP except mild discomfort w/ deep palpation of the LLQ, notes he needs to urinate, ND, distant BS, no HSM. Extremities: no cyanosis, clubbing, or edema. Neurological: patient awake, alert, oriented x 3; cognitive function intact; pupils equally reactive to light and accomodation; cranial nerves II-XII grossly normal, moving all 4 extremities, no focal deficits, strength severely globally decreased secondary to acute presentation. Psychiatric: affect appears fatigued, uncomfortable appearing, no acute evidence of depressive or anxiety feelings. - Physical Exam Vitals/I&O's: Vital Signs Temp Pulse Resp BP Pulse Ox 98 F 117 H 24 H 109/90 H 92 06/29/19 06:37 06/29/19 06:37 06/29/19 06:37 06/29/19 06:37 06/29/19 06:37 Oxygen Flow Rate (L/min) 2 Oxygen Delivery Method Nasal Cannula Weight: 215 lb 2.738 oz Body Mass Index (BMI) 32.7 Laboratory Results 06/29/19 05:35: Total Bilirubin 0.20, Direct Bilirubin 0.06, AST 20, ALT 29, Alkaline Phosphatase 87, Total Protein 6.9, Albumin 3.2, Globulin 3.7 06/29/19 05:35: WBC 8.0, RBC 4.34 L, Hgb 13.4, Hct 41.3, MCV 95.2 H, MCH 30.9, MCHC 32.4, RDW Std Deviation 49.1 H, RDW Coeff of Maggie 14.1, Plt Count 204, MPV 9.3, Immature Gran % (Auto) 0.500, Neut % (Auto) 70.7 H, Lymph % (Auto) 13.8 L, [place] % (Auto) 12.7 H, Eos % (Auto) 1.8, Baso % (Auto) 0.5, Absolute Neuts (auto) 5.6, Absolute Lymphs (auto) 1.10, Nucleated RBC % 0 06/29/19 05:35: PT Cancelled, INR Cancelled, APTT Cancelled 06/29/19 05:35: Sodium 142, Potassium 4.2, Chloride 110 H, Carbon Dioxide 24.0, Anion Gap 8, BUN 22 H, Creatinine 1.34 H, Estim Creat Clear Calc 51.04, Est GFR (MDRD) Af Amer 68, Est GFR (MDRD) Non-Af 56 L, BUN/Creatinine Ratio 16.4, Glucose 170 H, Calcium 8.7, Troponin I 0.627 H* 06/29/19 05:35: Lactic Acid Cancelled 06/29/19 06:38: PT Pending, INR Pending, APTT Pending 06/29/19 06:38: Lactic Acid Pending Assessment/Plan All Active Problems (Last Reviewed 12/24/18 @ 14:09 by Marlene Robles, GAVIN-C) Hypoxia, sleep related (Acute) Coarse tremors (Acute) COPD exacerbation (Acute) Acute respiratory distress (Acute) Cardiac enzymes elevated (Acute) The patient is a 69 y/o M w/ PMHx: CAD s/p CABG and PCI x 10, Diabetes mellitus type II, Obesity, HTN, HLD, Chronic COPD, Tobacco use history, Chronic Back Pain, Chronic Systolic CHF/Ischemic Cardiomyopathy, Hx VT s/p AICD placement, PVD w/ chronic claudication, CKD stage III who presents to the [facility] ED on 06/29/19 with recent outpatient Z-Anthony treatment for suspected bronchitis without market improvement with onset of midsternal chest discomfort, 10 out of 10 in severity, described as a aching with radiation to the left upper extremity with increased dyspnea, resolving after NG x 3, recurring at approximately 3 AM on day of ED presentation awakening him from sleep, identical in appearance but not resolving with worsened dyspnea and notable wheezing prompting presentation to the ED. (1) Acute on chronic COPD exacerbation w/ suspected Acute Viral Syndrome: Work-up in the ED included T 98.3, heart rate 122, BP 120/60, respiratory rate 17, 92% on room air, CBC with RBC 8, hemoglobin 13.4, platelet 204 with not market left shift evident, coags pending, CMP with chloride 110, BUN/creatinine 22/1.34, glucose 170, lactic acid pending, troponin 0.627, blood culture x2 pending per ED, chest x-ray with mild lower lobe densities compatible with either sub-segmental atelectasis or possibly early pneumonia with chronic COPD changes, EKG with sinus tachycardia with no acute evidence of ischemia. Will admit to PCU given #2, awaiting CTPA, maintain on oxygen with wean as tolerated to room air, continue ATC duonebs, PRN albuterol, IV methylprednisolone, HOB, IS parameters, defer antibiotics as suspected viral etiology, obtain respiratory viral panel, sputum culture. (2) Chest Pain w/ Elevated Cardiac Enzyme: EKG in ED w/ sinus tachycardia with no acute evidence of ischemia, chest x-ray with mild lower lobe densities compatible with either sub-segmental atelectasis or possibly early pneumonia with chronic COPD changes, Trop elevated, 0.627. Will maintain on a monitored bed, continue serial cardiac enzymes and EKGs. Obtain magnesium level upon admission. Maintain on therapeutic lovenox. Continue medical management w/ asa, plavix, BB, statin w/ AM FLP. Awaiting CTPA, if no obvious significant PE as etiology for elevation will consult Cardiology. Maintain NPO status. ASA, NG, morphine. (3) CAD: s/p CABG x 4 and PCI x 7. Will continue home regimen asa, plavix, statin, BB. (4) Hypertension: Continue home regimen including lasix, imdur, isosorbid, metoprolol, ACEI with hold parameters given hypotensive upon initial ED presentation, PRN hydralazine. (5) Hyperlipidemia: Continue home statin regimen. (6) Tobacco Use: Encouraged continued reduction tobacco use, currently using 21 mg NR with 1-2 cig daily, will continue, RT cessation consultation. (7) Chronic Systolic CHF/Ischemic Cardiomyopathy: s/p AICD history, maintained on asa, plavix, statin, BB, spironolactone, BEHZAD. (8) CKD stage III: Admission BUN/Cr 22/1.34, baseline 1.6, gently hydrating for possible cardiac catheterization needs, repeat BMP in AM. (9) Diabetes mellitus type II: Not on regimen, obtain HgbA1c, ADA diet, accu checks w/ ISS, consulted for education and teaching. (10) Hx VT: s/p AICD placement. (11) GERD: PPI. (12) DVT Prophylaxis: SCDs, therapeutic lovenox. (13) CODE status: Patient does not have a healthcare power of corporate associate attorney or living will set up. He is and notes that his spouse understands what he wants which includes full CODE STATUS initially but transition if prolonged care needs. Discussed CODE status at length including difference between FULL code, DNR-CCA and DNR-CC status. Following discussions about the differences in these status, requested Full Code status. Advanced Care Planning Face to Face Time: 16 minutes. Code Visit Inpatient E&M: 41832 Init Hosp L3 Procedures: 19531 Advncd Care Plan 30 Min
[2019-06-29 06:55] LABS: Partial Thromboplast Time 33.2 Seconds (24.1-36.2)
[2019-06-29 07:11] LABS: Lactic Acid 2.1 mmol/L (0.4-2.0)
--- NOTE | 2019-06-29 07:11 | EKG12_ITS ---
Test Reason : CP Blood Pressure : / mmHG Vent. Rate : 115 BPM Atrial Rate : 115 BPM P-R Int : 144 ms QRS Dur : 108 ms QT Int : 332 ms P-R-T Axes : 070 -30 130 degrees QTc Int : 459 ms Sinus tachycardia Left axis deviation Incomplete left bundle branch block ST & T wave abnormality, consider lateral ischemia Abnormal ECG Confirmed by SKYLER LUNDBERG, [place] ([id number]), editor newspaper LANDRY YARBROUGH ([id number]) on 07/03/2019 9:45:55 AM Referred By: SCOT Confirmed By:SHAKIRA HOLLAND MD
--- NOTE | 2019-06-29 07:18 | NURSING ---
PCU COPD EXAC, CP, ELEVATED CARDIAC ENZYME, ?PE VS NSTEMI WHITE
[2019-06-29] MEDS: Enoxaparin 100 MG/ML Syringe SC (07:19)
[2019-06-29] MEDS: Aspirin 325 MG Tablet PO (07:19)
[2019-06-29] MEDS: Clopidogrel Bisulfate 75 MG Tablet PO (07:19)
[2019-06-29] MEDS: HYDROmorphone 0.5 MG/0.5 ML SYRINGE IV (07:20)
[2019-06-29 07:41] LABS: Base Excess -1 mmol/L (-2 to +2); Bicarbonate 24.2 mmol/L (22-26); Blood Gas Specimen Type ART; O2 Delivery Device Nasal Can; PO2 68 mmHG (75-100); SITE L Brachial; SO2 93 % (95-99); Time Given 730; Total Carbon Dioxide 25 mmol/L; pCO2 39.3 mmHg (35-45)
[2019-06-29] MEDS: Ondansetron 4 MG/2 ML Vial IV (07:42)
--- NOTE | 2019-06-29 08:01 | ECHOCS_ITS ---
Reason For Study: CAD Procedure This was a 2D Doppler, Color Flow transthoracic echocardiogram. The study was technically difficult. Contrast injection was performed. Exam performed portable in patient room. Left Ventricle Severely dilated left ventricle. The estimated ejection fraction is 20-25 %. Stage 2 diastolic dysfunction. There are regional wall motion abnormalities as specified. Right Ventricle Normal size and thickness. ICD or pacer leads identified within the right ventricle. Normal systolic function. Atria Normal left atrium. Normal right atrium. Normal atrial septum. Mitral Valve The mitral valve is structurally normal. No prolapse or stenosis seen. Mild (1+) mitral valve insufficiency. Tricuspid Valve Normal tricuspid valve. Unable to estimate RV systolic pressure due to insufficient tricuspid regurgitant envelope. Aortic Valve Trisinus/trileaflet aortic valve. Mild diffuse aortic valve thickening. Pulmonic Valve Normal pulmonic valve. Great Vessels Normal aortic root. Normal arch. Normal inferior vena cava. Inferior vena cava collapse with sniff. Pericardium/Pleural No pericardial effusion. Medication Diluted definity 6.0ml given slow IV push to enhance endocardial definition. MMode/2D Measurements & Calculations LVIDd: 6.1 cm IVSd: 0.92 cm Ao root diam: 3.3 cm LVIDs: 5.2 cm LVPWd: 0.94 cm RVDd: 3.4 cm FS: 15.3 % LAV(MOD-bp): 57.1 ml LVAd ap4: 54.8 cm2 SV(MOD-sp4): 45.9 ml LAV(MOD-bp) Indexed: 26.9 ml/m2 EDV(MOD-sp4): 226.6 ml LAV(MOD-sp2): 58.3 ml EDV(sp4-el): 226.8 ml LAV(MOD-sp4): 55.6 ml LVAs ap4: 47.2 cm2 ESV(MOD-sp4): 180.7 ml ESV(sp4-el): 189.2 ml EF(MOD-sp4): 20.3 % EF(sp4-el): 16.6 % SV(sp4-el): 37.6 ml LA A4 area: 19.1 cm2 LA dimension(2D): 5.5 cm RA A4 area: 10.7 cm2 Doppler Measurements & Calculations Lat Peak E' Neal: 5.3 cm/sec Med Peak E' Neal: 3.4 cm/sec Ao V2 max: 164.6 cm/sec Ao max P.8 mmHg LV V1 max: 113.1 cm/sec LV V1 max P.1 mmHg Interpretation Summary Severely dilated left ventricle. The estimated ejection fraction is 20-25 %. Stage 2 diastolic dysfunction. There are regional wall motion abnormalities as specified. Mild (1+) mitral valve insufficiency. Unable to estimate RV systolic pressure due to insufficient tricuspid regurgitant envelope. Compared to echo report dated 10/08/2018, LV function has decreased from 35% to 20-25% with new lateral hypokinesis. The study was technically difficult. Contrast injection was performed. Ordering Physician: Lyla Swanson Referring Physician: JEFFY BECK Performed By: Yadi Joel RDCS, RVT
--- NOTE | 2019-06-29 08:01 | EKG12_ITS ---
Test Reason : CP ADMISSION Blood Pressure : / mmHG Vent. Rate : 115 BPM Atrial Rate : 115 BPM P-R Int : 142 ms QRS Dur : 106 ms QT Int : 348 ms P-R-T Axes : 071 -27 117 degrees QTc Int : 481 ms Sinus tachycardia Incomplete left bundle branch block ST & T wave abnormality, consider anterolateral ischemia Abnormal ECG When compared with ECG of 29-JUN-2019 05:26, MANUAL COMPARISON REQUIRED, DATA IS UNCONFIRMED Confirmed by GERONIMO BLOOM ([id number]), sports editor LANDRY YARBROUGH ([id number]) on 07/03/2019 11:02:53 AM Referred By: AMBROSIO Confirmed By:GERONIMO BLOOM
[2019-06-29 08:13] LABS: Magnesium 1.9 mg/dL (1.6-2.6)
[2019-06-29 08:30] LABS: Hemoglobin A1c 6.5 % (4.2-6.3)
[2019-06-29] MEDS: Morphine 4 MG/ML Syringe IV ×2 (09:30→19:48)
[2019-06-29] MEDS: guaiFENesin 10 ML UDC (200MG/10ML) 20 ML PO (09:30)
[2019-06-29] MEDS: Pantoprazole Sodium 40 MG Tablet PO (09:31)
[2019-06-29] MEDS: Metoprolol(XL)Succ 100 MG Tablet PO (09:31)
[2019-06-29] MEDS: Spironolactone 25 MG Tablet PO (09:31)
[2019-06-29] MEDS: Furosemide 40 MG Tablet PO (09:31)
[2019-06-29] MEDS: Allopurinol 300 MG Tablet PO (09:32)
[2019-06-29] MEDS: Lisinopril 2.5 MG Tablet PO (09:32)
[2019-06-29] MEDS: Isosorbide Mononitrate 30 MG Tablet PO (09:32)
--- NOTE | 2019-06-29 10:08 | CON.PCM_ITS ---
<Richard Park - Last Filed: 06/29/19 11:13> Problem List (1) Cardiac enzymes elevated Status: Acute (2) Presence of automatic implantable cardioverter-defibrillator Status: Chronic (3) H/O coronary artery bypass surgery Status: Chronic Comment: HUMPHREY-LAD, SVG-D1, SVG-OM (4) Stented coronary artery Status: Chronic Comment: has had 7 stents as of 06/15/17 (5) Ischemic cardiomyopathy Status: Chronic Comment: 25% ejection fraction in November 2016 (6) V-tach Status: Chronic Comment: has an AICD (7) Benign essential hypertension Status: Chronic (8) Hyperlipidemia Status: Chronic Qualifiers: Hyperlipidemia type: unspecified Qualified Code(s): E78.5 - Hyperlipidemia, unspecified (9) CAD (coronary artery disease) Status: Chronic Qualifiers: Coronary Disease-Associated Artery/Lesion type: unspecified vessel or lesion type [place] vs. transplanted heart: unspecified whether [place] or transplanted heart Associated angina: angina presence unspecified Qualified Code(s): I25.10 - Atherosclerotic heart disease of [place] coronary artery without angina pectoris Reason for Consult Date of Consultation: 06/29/19 Reason for Consultation: Chest pain, elevated troponin, previous CAD history History of Present Illness: The patient is a 69 year old M who presented to [facility] Emergency Department on 06/29/2019 with shortness of breath and chest pain. He was last seen in cardiology outpatient office on 07/09/2017. He has a past medical history of coronary artery disease status post HUMPHREY to LAD, SVG to diagonal branch of LAD, SVG to right ventricular branch of the RCA and SVG to OM branch of LCx on 04/30/[address] [facility]. He was reevaluated at [facility] in 2017 after a heart catheterization at [facility] that showed his circumflex artery was small with 100% occlusion of the proximal segment. The saphenous vein graft to the second obtuse marginal branch was intervened on with a drug-eluting synergy 4.0?16 mm stent. There was residual 60% ostial stenosis and the second distal obtuse marginal branch. He had occlusion of his [place] vessels and the saphenous vein graft to the diagonal branch was occluded the saphenous vein graft to the right coronary artery was also occluded. His ejection fraction is noted to be 20-25%. Based on the above it was decided for him to undergo stress testing which demonstrated extensive anterolateral and apical infarct as well as inferior infarct. There was no ischemia noted and therefore medical therapy was recommended. He also has a history of ischemic cardiomyopathy, ventricle tachycardia, status post AICD on 12/02/2016 and follows with [facility], hypertension, hyperlipidemia, COPD, obstructive sleep apnea, and diabetes mellitus type 2. His Emergency Department work-up revealed an EKG showing sinus tachycardia at a rate of 125 bpm and no acute ST or T wave changes. He received breathing treatments and steroid therapy. He underwent a CT scan of his chest to rule out pulmonary embolism. This was noted to be negative. His troponin was noted be 0.627. His second troponin was noted to be 0.672. Cardiology was consulted for further input. Past Medical History Allergies/Adverse Reactions: Allergies chlorpromazine HCl [From Thorazine] Allergy (Severe, Verified 06/29/19 05:29) Hives PER PATIENT tramadol HCl [From Ultram] Allergy (Severe, Verified 06/29/19 05:29) Hives PER PATIENT codeine Allergy (Intermediate, Verified 06/29/19 05:29) Hives atorvastatin Adverse Reaction (Intermediate, Verified 06/29/19 05:29) Other LEG PAIN/CRAMPS cyclobenzaprine [From Flexeril] Adverse Reaction (Verified 06/29/19 05:29) Upset Stomach naproxen Adverse Reaction (Verified 06/29/19 05:29) Upset Stomach promethazine [From Phenergan] Adverse Reaction (Verified 06/29/19 05:29) Other CONFUSION Home Medications: Ambulatory Orders Medication Instructions Recorded Isosorbide Mononitrate [Imdur] 30 mg PO DAILY 02/18/17 Albuterol Aerosols [Ventolin 2.5 mg INHALATION Q4H PRN PRN 02/23/17 Aerosols] Pantoprazole Sodium [Protonix] 40 mg PO DAILY 11/15/17 Lisinopril [Zestril] 2.5 mg PO DAILY 05/21/18 Rosuvastatin Calcium [Crestor] 40 mg PO DAILY 06/16/18 Clopidogrel Bisulfate [Plavix] 75 mg PO DAILY 09/01/18 Allopurinol 300 mg PO DAILY 09/20/18 Metoprolol Succinate 100 mg PO DAILY 12/01/18 Nitroglycerin 0.4 mg SL PRN PRN 12/01/18 Nicotine [Nicoderm Cq] 21 mg TRANSDERM. DAILY patch 12/03/18 Aspirin [Aspir 81] 81 mg PO DAILY #1 tablet. 01/21/19 Albuterol Inhaler [Ventolin Hfa] 2 puff INHALATION Q4H PRN PRN 02/24/19 Spironolactone 25 mg PO DAILY 02/24/19 Ondansetron [Zofran Odt] 4 mg PO Q8H PRN PRN #10 tab 03/24/19 Oxycodone HCl/Acetaminophen 1 tab PO Q6H PRN 05/02/19 [Oxycodon-Acetaminophen 7.5-325] proMETHazine tablet [Phenergan] 25 mg PO Q8H PRN PRN #10 tab 05/13/19 Azithromycin [Zithromax Z-Anthony] 250 mg PO UD #1 box 06/16/19 predniSONE tablet 40 mg PO DAILY #7 tab 06/16/19 furosemide 40 mg tablet 40 mg PO DAILY #90 tab 06/27/19 Past Medical History (Chronic Problems): Chronic Problems (Last Reviewed 12/24/18 @ 14:09 by Marlene Robles NP-C) Headache (Chronic) COPD (chronic obstructive pulmonary disease) (Chronic) Obesity (BMI 30.0-34.9) (Chronic) Nicotine dependence (Chronic) Gout (Chronic) Degenerative cervical disc (Chronic) Chronic back pain (Chronic) Presence of automatic implantable cardioverter-defibrillator (Chronic) H/O coronary artery bypass surgery (Chronic ~2008) HUMPHREY-LAD, SVG-D1, SVG-OM Chronic renal failure, stage 3 (moderate) (Chronic) Chronic systolic (congestive) heart failure (Chronic) Stented coronary artery (Chronic ~12/2016) has had 7 stents as of 06/15/17 Ischemic cardiomyopathy (Chronic) 25% ejection fraction in November 2016 V-tach (Chronic) has an AICD Benign essential hypertension (Chronic) Gastroesophageal reflux disease (Chronic) Hyperlipidemia (Chronic) Type 2 diabetes mellitus (Chronic) Morbid obesity (Chronic) CAD (coronary artery disease) (Chronic) Surgical History: angioplasty - stents x10, coronary bypass surgery, - - AICD placement, back surgery x 2, hernia repair Psychiatric History: No pertinent psych hx - *Family History Paternal Family History: Family History (Last Reviewed 12/24/18 @ 14:09 by TISH Blankenship) Brother CAD (coronary artery disease) Myocardial infarction Sudden cardiac Mother Cancer Hypertension Father Cancer COPD (chronic obstructive pulmonary disease) History Items: Cancer, Heart Disease Maternal Family History: Family History (Last Reviewed 12/24/18 @ 14:09 by TISH Blankenship) Brother CAD (coronary artery disease) Myocardial infarction Sudden cardiac Mother Cancer Hypertension Father Cancer COPD (chronic obstructive pulmonary disease) History Items: - - Patient notes a paternal family history of chronic lung disease, lung cancer with history of tobacco use. Lives: Spouse/ Significant Other Smoking Status: Current every day smoker Tobacco Use: Cigarettes Alcohol: None, Sober - Sober x 26 years. Drugs: None Review of Systems - Review of Systems General: Reports: Fatigue. Denies: Fever Cardiovascular: Reports: Chest Discomfort, Shortness of Breath, Shortness of Breath at Rest, Shortness of Breath with Exertion, Orthopnea, Lightheadedness, Dizziness, Near Syncope. Denies: Chest Discomfort at Rest, Chest Discomfort with Exertion, Chest Pressure, Chest Tightness, Chest Heaviness, PND, Peripheral Edema, Palpitations, Syncope, Orthostatic Symptoms, Claudication Respiratory: Reports: Cough Neurological: Reports: Dizziness Subjectve: Patient seen and evaluated. He denies any chest pain or SOB currently. He acknowledges two episodes of chest pain over the last two nights. One that improved with 3 NTGs. The second episode resulted in calling EMS. He states worsening dyspnea on exertion and fatigue over the last 3-4 weeks. Objective: Vital Signs Temp Pulse Resp BP Pulse Ox 98.4 F 104 H 18 123/59 H 94 06/29/19 08:44 06/29/19 09:31 06/29/19 08:44 06/29/19 08:44 06/29/19 08:44 Oxygen Flow Rate (L/min) 2 Oxygen Delivery Method Nasal Cannula Weight: 212 lb 4.8 oz Body Mass Index (BMI) 32.3 General: Healthy Appearing, Awake, Alert, Oriented x 3, Cooperative, Lethargic HEENT: Atraumatic Oral: Moist Mucosa Neck: No JVD Lungs: Expiratory Wheezes-Stone Cardiovascular: Regular Rhythm, Normal S1, Normal S2, No Murmurs, No Rubs Vascular: No Carotid Bruits Abdomen: Bowel Sounds Present, Soft, Non Tender Extremities: No Cyanosis, No Clubbing, No edema, Normal Capillary Refill Neurological: No Focal Motor or Sensory Deficit Psych/Mental Status: Appropriate, Normal Affect 06/29/19 05:35: Total Bilirubin 0.20, Direct Bilirubin 0.06 06/29/19 05:35: WBC 8.0, RBC 4.34 L, Hgb 13.4, Hct 41.3, MCV 95.2 H, MCH 30.9, MCHC 32.4, Plt Count 204, MPV 9.3, Immature Gran % (Auto) 0.500, Neut % (Auto) 70.7 H, Lymph % (Auto) 13.8 L, [place] % (Auto) 12.7 H, Eos % (Auto) 1.8, Baso % (Auto) 0.5, Absolute Neuts (auto) 5.6, Nucleated RBC % 0 06/29/19 05:35: PT Cancelled, INR Cancelled, APTT Cancelled 06/29/19 05:35: Sodium 142, Potassium 4.2, Chloride 110 H, Carbon Dioxide 24.0, Anion Gap 8, BUN 22 H, Creatinine 1.34 H, Est GFR (MDRD) Af Amer 68, Est GFR (MDRD) Non-Af 56 L, BUN/Creatinine Ratio 16.4, Glucose 170 H, Calcium 8.7, Troponin I 0.627 H* 06/29/19 05:35: Lactic Acid Cancelled 06/29/19 06:38: PT 13.0, INR 1.0, APTT 33.2 06/29/19 06:38: Lactic Acid 2.1 H 06/29/19 06:38: Magnesium 1.9 06/29/19 06:38: Hemoglobin A1c 6.5 H 06/29/19 07:36: pH 7.40, Bicarbonate Actual 24.2, POC Total CO2 25, Base Excess -1, O2 Saturation 93 L, ABG pCO2 39.3, ABG pO2 68 L 06/29/19 08:54: Troponin I 0.672 H* Rhythm: EKG: ECHO: 10/08/2018 Interpretation Summary Mildly dilated left ventricle. The estimated ejection fraction is 35 %. Stage 1 diastolic dysfunction. There are regional wall motion abnormalities as specified. The left atrium is moderately enlarged. Unable to estimate RV systolic pressure due to inadequate jet, pulmonary artery pressure probably normal. Mild aortic stenosis. Compared to echo report dated 12/12/2017, LV function appears to have improved from 25% to 35%, allowing for technically difficult images. The study was technically difficult. Contrast injection was performed. Stress Test: 12/03/2017 Impression: 1. Pharmacologic (Regadenoson) evaluation 2. Peak pharmacologic ECG with no obvious ECG changes. 3. No cardiac dysrhythmias pretest, during pharmacologic infusion, or recovery 4. Nuclear images pending Impression: 1. Rest and stress SPECT Cardiolite nuclear imaging demonstrating myocardial perfusion changes compatible with previous myocardial injury/infarction involving portions of the mid to distal anterior, distal anterolateral, distal anteroseptal, distal inferior, and apical segments with no myocardial perfusion changes consider diagnostic for associated stress-induced myocardial ischemia. 2. The gated Cardiolite study reports an LVEF of 24%. Cardiac Cath: 01/20/2017 Conclusions: Severe [place] vessel disease, severe bypass graft diseas with severe stenosis in the last remaining saphenous vein graft Recommendations; 1. Referred for immediate PCI PCI: CT Surgery: Holter monitor: EPS: PPM: CXR: Chest CT Scan: Assessment/Plan 1. Atherosclerotic coronary artery disease As noted above, patient has history of coronary artery bypass x4 on 04/30/[address] [facility]. He also has had multiple stents since that time. Patient's EKG continues to show sinus tachycardia without acute ST or T wave changes. There are nonspecific T wave changes noted. His troponin trend has been 0.627 and 0.672. He has had decreased energy and increased shortness of breath over the last 3 to 4 weeks. 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 If this is found to be unchanged from previous heart catheterization or no intervention required, perhaps his change in cardiac enzymes is related to type II event due to supply?demand mismatch. If this is the case, his pulmonary status/COPD will be managed by primary team. Further recommendation will be made based on results of his heart catheterization. He will continue with Aspirin, Plavix, lisinopril, metoprolol, and Crestor. 2. Ischemic cardiomyopathy His last echocardiogram in September 2018 showed ejection of 35%, stage I diastolic dysfunction, mild aortic stenosis, and unable to estimate RV systolic pressure. He is status post ICD for this in November 2016. He does not appear to be in a fluid volume overload state on exam. His chest x- ray from 06/29/2019 revealed mild lower lobe densities compatible with either subsegmental atelectasis or possible early pneumonia and COPD. His chest CTA from 06/29/2019 was negative for pulmonary embolism with mild degree of emphysematous changes of the upper lobes with mild degree of blood bibasilar scarring more prominent in the right lung base. At this time, he will continue with lisinopril, metoprolol, isosorbide, Spironolactone, and Lasix therapy. 3. Presence of automatic implantable cardioverter?defibrillator He states that he follows with [facility] regarding this. He states this was last checked approximately 4 months ago and is unaware of any concerns noted on ICD check. 4. Hypertension Patient's blood pressure is well-controlled. We will continue to monitor. We will not make any medication regimen changes. 5. Hyperlipidemia He continue current statin medication. 6. Tachycardia Patient's hemoglobin on 04/29/2019 was noted be normal at 13.4. His electrolytes were noted within normal limits. His creatinine was noted be 1.34. He has not had his TSH reevaluated during this hospitalization. It was noted to be low in February 2019. Hopefully, this improves as his shortness of breath continues to improve from both a cardiac and noncardiac perspective. Patient's case was reviewed with Dr. Ponce, who will also personally evaluated patient. Thank you for allowing us to participate in the patients plan of care, if you have any questions please do not hesitate to call. This note was generated using a voice recognition system and there may be incorrect words, spelling or punctuation that were not noted when reviewing the office note prior to saving. <Gentry Ponce - Last Filed: 06/29/19 14:25> Problem List (1) Cardiac enzymes elevated Status: Acute (2) Chronic systolic (congestive) heart failure Status: Chronic (3) Stented coronary artery Status: Chronic Comment: has had 7 stents as of 06/15/17 (4) Ischemic cardiomyopathy Status: Chronic Comment: 25% ejection fraction in November 2016 (5) V-tach Status: Chronic Comment: has an AICD Reason for Consult History of Present Illness: The patient is a 69 year old M, known to me, presents with new onset chest pain, non-STEMI, and dynamic lateral ST segment depression. She was referred for left heart catheterization. [] Past Medical History - *Family History Paternal Family History: Family History (Last Reviewed 12/24/18 @ 14:09 by TISH Blankenship) Brother CAD (coronary artery disease) Myocardial infarction Sudden cardiac Mother Cancer Hypertension Father Cancer COPD (chronic obstructive pulmonary disease) Maternal Family History: Family History (Last Reviewed 12/24/18 @ 14:09 by ZORAN BlankenshipC) Brother CAD (coronary artery disease) Myocardial infarction Sudden cardiac Mother Cancer Hypertension Father Cancer COPD (chronic obstructive pulmonary disease) Objective: Vital Signs Temp Pulse Resp BP Pulse Ox 98.4 F 84 17 123/59 H 94 06/29/19 08:44 06/29/19 10:44 06/29/19 10:44 06/29/19 08:44 06/29/19 10:44 Oxygen Flow Rate (L/min) 2 Oxygen Delivery Method Nasal Cannula Weight: 212 lb 4.812 oz Body Mass Index (BMI) 32.3 Intake and Output for Last 24 Hours 06/27/19 06/28/19 06/29/19 23:59 23:59 23:59 Intake Total 100 / 100 Balance 100 / 100 06/29/19 05:35: Total Bilirubin 0.20, Direct Bilirubin 0.06 06/29/19 05:35: WBC 8.0, RBC 4.34 L, Hgb 13.4, Hct 41.3, MCV 95.2 H, MCH 30.9, MCHC 32.4, Plt Count 204, MPV 9.3, Immature Gran % (Auto) 0.500, Neut % (Auto) 70.7 H, Lymph % (Auto) 13.8 L, [place] % (Auto) 12.7 H, Eos % (Auto) 1.8, Baso % (Auto) 0.5, Absolute Neuts (auto) 5.6, Nucleated RBC % 0 06/29/19 05:35: PT Cancelled, INR Cancelled, APTT Cancelled 06/29/19 05:35: Sodium 142, Potassium 4.2, Chloride 110 H, Carbon Dioxide 24.0, Anion Gap 8, BUN 22 H, Creatinine 1.34 H, Est GFR (MDRD) Af Amer 68, Est GFR (MDRD) Non-Af 56 L, BUN/Creatinine Ratio 16.4, Glucose 170 H, Calcium 8.7, Troponin I 0.627 H* 06/29/19 05:35: Lactic Acid Cancelled 06/29/19 06:38: PT 13.0, INR 1.0, APTT 33.2 06/29/19 06:38: Lactic Acid 2.1 H 06/29/19 06:38: Magnesium 1.9 06/29/19 06:38: Hemoglobin A1c 6.5 H 06/29/19 07:36: pH 7.40, Bicarbonate Actual 24.2, POC Total CO2 25, Base Excess -1, O2 Saturation 93 L, ABG pCO2 39.3, ABG pO2 68 L 06/29/19 08:54: Troponin I 0.672 H* 06/29/19 11:50: Troponin I 1.600 H* Rhythm: EKG: ECHO: Stress Test: Cardiac Cath: PCI: CT Surgery: Holter monitor: EPS: PPM: CXR: Chest CT Scan: Assessment/Plan Interventional cardiology addendum: Patient seen and examined in conjunction with Richard and agree with above. Patient presents with new onset substernal chest pain and has known ischemic cardiomyopathy with severe LV dysfunction, severe [place] coronary disease, severe bypass graft occlusive disease and recent high risk angioplasty and stenting to his last remaining saphenous vein graft to circumflex vessel. I recommended the patient undergo a left heart catheterization with graft angiography which took place on 06/29/2019. This demonstrated severe [place] coronary artery occlusive disease including an occluded LAD with left to left collaterals, a significant [place] nondominant left circumflex stenosis of 75%, and occluded [place] right coronary artery, and occluded saphenous vein graft to the RCA, and occluded saphenous vein graft to the diagonal, and occluded HUMPHREY to the LAD, and a saphenous vein graft to the circumflex with widely patent saphenous vein graft stents with a new [place] occlusion of the proximal portion of the saphenous vein graft of approximately 85% superimposed on severe LV dysfunction with an EF of 15%. I recommended the patient be transferred to [facility] for high risk PCI possibly with intrinsic balloon pump assistance or Impella device given the last remaining significant vessel to be worked on. I discussed the patient's case and condition with lead investigator at [facility], as Dr. Quintana was unavailable in the Registered Sales Assistant. They have agreed to accept the patient, and we worked to transfer the patient. A copy of his catheterization film has been made and placed in the chart. I discussed this with Dr. Lyla Swanson who will facilitate transfer. At the conclusion of his angioplasty he will then be referred back to Dr. Ponce's office. Thank you very much for the opportunity to participate in the cardiac care of your patient. Consultation time took place between 130 and 2:30 PM. Code Visit Inpatient E&M: 96247 Init Hosp L2
[2019-06-29] MEDS: 0.9% Normal Saline 1,000 ML 100 ML IV (10:31)
--- NOTE | 2019-06-29 11:17 | CASEMGMT ---
According to the [facility] website, the following are in-network tertiary facilities: [facility], [place], [facility], [place], [facility], [facility], [facility], and . Doug HADLEY CM
--- NOTE | 2019-06-29 11:19 | CASEMGMT ---
RN ESTIVEN ASSISTANT PROFESSOR OF SPANISH CM to room to meet with patient for initial transition planning/care coordination assessment. LEONIE JEAN-BAPTISTE introduced self and role at [facility]. Pt voices understanding and consents to assessment at this time. Pt resting in bed in no distress at this time. Pt is A/O at this time and answers all questions appropriately. Care providers, pharmacy, and demographics verified at this time. PCP: Dr Juan De La Vega III Specialists: Dr Inman--cardiology, Dr Pop--pulmonology Preferred Pharmacy: [facility] [place] Insurance: [facility]. Prescription Benefit: Yes Living Will/HPOA: States does not have LW or HCPOA . Interested in more information but states does not want to talk with SW at this time to complete paperwork. Provided information on advanced directives and given Social Service rac card with number to call if chooses in the future to utilize [facility] social work for advanced directive completion. LNOK: , Alma Rosa Living Arrangements: Lives with in 2-story home. Bathroom is on 2nd floor. States able to do stairs but they are becoming increasingly difficult. Pt states he and share home mgmt tasks. He states he manages his own doctor appts and medications. Transportation: Pt states drives self and states no transportation concerns at this time. , Alma Rosa, also drives. Pt is aware of [facility] providing transportation services for appts if needed. He states he has utilized their services in the past. DME:States has the following DME but does not use: [facility], W/C, medical alert button. Discussed BSC with pt d/t difficulty with stairs, but pt declines wanting a BSC at this time, stating, I need the exercise. Pt advised to discuss getting a BSC with his PCP if in the future he feels he needs one. Pt voices understanding. Pt did say he is interested in getting a chair lift for the stairs and he plans to contact his insurance company to see if they will cover any of the cost of it. Has a nebulizer which he does use. Does not have home O2. States if needs O2 @ discharge, he does not have a preference of DME company. SNF: No history. HHC: States he thinks he has had HHC in the past, but does not remember name of agency. Discussed HHC and CCN with pt. He states he is not homebound, as he still is able to get out and go shopping/grocery store, etc. Pt agreeable to [facility] referral. Order placed and call placed to Golden @ [facility] to notify her of referral. Pt has Passport CM, Marialuisa Arriaza, through [facility] [facility]. DENYS, Alyssa, made aware. Pt wishes to return home and states has no concerns with going home at time of discharge. CM to follow for home oxygen needs and any further discharge planning/needs. Pt voices no further concerns/needs at this time. Advised pt to ask for CM if any further questions/concerns/needs arise. Voices understanding. Pt discharge plan: Home Plan: Home. CCN referral made. Luca SAUCEDO RN CM
[2019-06-29] MEDS: oxyCODONE 5 MG Tablet PO (12:15)
[2019-06-29 12:26] LABS: Bedside Glucose 188 mg/dL (70-110)
--- NOTE | 2019-06-29 12:33 | NURSING ---
verbal report given to LEONIE Pleitez in yard labor supervisor
[2019-06-29 14:16] LABS: ACT Activated Clotting Time 153 sec (74-137)
--- NOTE | 2019-06-29 14:17 | CL.D_ITS ---
Patient Name: LANNY WRIGHT Study Date: 06/29/2019 Performing: Gentry Ponce MD Ht: 68.11 inches 173 cm : 1950 Wt: 211.64 lbs 96 kg Age: 69 Gender: male BSA: 2.1 PROCEDURE(S) PERFORMED DU87-[id number]/COR/LV/CABG CLINICAL PROFILE AND INDICATIONS Patient presents with NSTEMI for urgent cardiac cath Indications: ACS > 24 hrs, Worsening Angina, Stable Known CAD, LV Dysfunction Heart Failure: NYHA Class: 2 Stress/Imaging Stress/Image Study Performed: No Angina Classification Anginal Classification w/in 2 Weeks: CCS IV CAD Presentations: Unstable angina. Non-STEMI. Symptom onset Date/Time: 06/29/2019 Time Not Avail able Comorbidities/Risk Factors: Current/Recent Smoker (< 1year) Hypertension Dyslipidemia Prior CHF Prior PCI CONCLUSIONS LVEF: by LV gram 15-20 % Yocha Dehe Multivessel CAD Occluded [place] mid LAD. Occluded [place] proximal RCA. Occluded SVG to DIAG Occluded SVG to RCA Occluded HUMPHREY to LAD. Severe 85% stenosis in last remaining vessel of SVG to LCX with widely patent SVG stents. Severe LV dysfunction. RECOMMENDATIONS Referred for immediate PCI Will tx to [facility] for high risk PCI to last remaining vessel of SVG to OM. Management as per referring Buncher Machine 4Fr sheath sutured in place. DESCRIPTION OF PROCEDURE The patient arrived to the procedure lab. The risks and benefits of the procedure as well as a full d escription of our services here and current unavailability of surgical backup were fully explained to the patient and/or their significant other prior to the catheterization. The Timeout was completed, verifying the correct patient and procedure. The patient's procedural site was prepped and draped in the usual fashion. Local anesthetic was given subcutaneously to right groin region with Lidocaine 2%. Using a modified Seldinger technique, arterial access was obtained via the right femoral artery, a 4 Fr sheath was inserted Left Coronary Artery selective angiography was performed in multiple views us ing a 4 Fr. JL5 catheter. Right Coronary Artery selective angiography was then performed in multiple views using a 4 Fr. 3DRC catheter - occluded. Saphenous Vein graft to the OM selective angiography wa s performed in multiple views using a 4 Fr. 3DRC catheter. Left internal mammary artery graft to the LAD selective angiography was performed in multiple views using a 4 Fr. AR MOD 2 cathete r. Left Ventriculography was performed in LOVE projection using a 4 Fr. Pigtail catheter. LV to AO pul lback pressures were then recorded. CORONARY ANGIOGRAPHY DOMINANCE: Right Dominant LEFT HEART ASSESSMENT Left Ventricular Ejection Fraction: by LV Gram 15-20 % Anterior Hypokinesis - Severe Depressed Left Ventricular systolic function LVEDP: 7 mmHg LEFT MAIN: Mild luminal irregularities less than 30% LEFT ANTERIOR DESCENDING ARTERY: MID LAD: is occluded CIRCUMFLEX ARTERY: DISTAL CIRC: 75 % Stenosis RIGHT CORONARY ARTERY: is occluded GRAFTS: HUMPHREY graft to the LAD is totally occluded Saphenous Vein graft to the RCA is totally occluded Saphenous Vein graft to the 1st Diagonal is totally occluded Saphenous Vein graft to the CIRC has a proximal lesion of 85 %, with widely patent SVG stents. COLLATERAL FLOW: Collateral flow from Left to Left COMPLICATIONS No Complications PROCEDURE MEDICATIONS Oxygen: 2 L/min via nasal cannula SUMMARY OF HEMODYNAMIC DATA Time AIR REST ECG 13:29:16 ECG 13:31:06 AO 82/61 (71) SA 13:40:52 LV 106/-8, 7 13:51:31 LV 108/-5, 9 13:51:37 LVp 107/-8, 21 13:51:54 AOp 104/55 (74) 13:51:59 14:06:34 Signed By Gentry Ponce MD On 06/29/2019 2:17:29 PM Signed By Gentry Ponce MD On 06/29/2019 2:16:33 PM Gentry Ponce MD
--- NOTE | 2019-06-29 14:19 | DS.PCM_ITS ---
Discharge Date and Diagnosis - Problem List Patient Problems: Active and Suspected Problems (Last Reviewed 12/24/18 @ 14:09 by TISH Blankenship) COPD exacerbation (Acute) Acute respiratory distress (Acute) Cardiac enzymes elevated (Acute) Date of Admission: 06/29/19 Date of Discharge: 06/29/19 - Primary Discharge Diagnosis Active and Suspected Problems (Last Reviewed 12/24/18 @ 14:09 by TISH Blankenship) (1) Chest Pain w/ Elevated Cardiac Enzyme w/ Severe 85% stenosis last remaining vessel of SVG to LCx with widely patent SVG stent with severe LV dysfunction referred for immediate high risk PCI to cardiology at [facility] (2) Acute on chronic COPD exacerbation w/ suspected Acute Viral Syndrome (3) CAD s/p CABG x 4 and PCI x 7 (4) Hypertension (5) Hyperlipidemia (6) Tobacco Use (7) Chronic Systolic CHF/Ischemic Cardiomyopathy (8) CKD stage III (9) Diabetes mellitus type II (10) Hx VT - Secondary Discharge Diagnosis Chronic Problems (Last Reviewed 12/24/18 @ 14:09 by TISH Blankenship) Headache (Chronic) COPD (chronic obstructive pulmonary disease) (Chronic) Obesity (BMI 30.0-34.9) (Chronic) Nicotine dependence (Chronic) Gout (Chronic) Degenerative cervical disc (Chronic) Chronic back pain (Chronic) Presence of automatic implantable cardioverter-defibrillator (Chronic) H/O coronary artery bypass surgery (Chronic ~2008) HUMPHREY-LAD, SVG-D1, SVG-OM Chronic renal failure, stage 3 (moderate) (Chronic) Chronic systolic (congestive) heart failure (Chronic) Stented coronary artery (Chronic ~12/2016) has had 7 stents as of 06/15/17 Ischemic cardiomyopathy (Chronic) 25% ejection fraction in November 2016 V-tach (Chronic) has an AICD Benign essential hypertension (Chronic) Gastroesophageal reflux disease (Chronic) Hyperlipidemia (Chronic) Type 2 diabetes mellitus (Chronic) Morbid obesity (Chronic) CAD (coronary artery disease) (Chronic) Hospital Course and Treatment Imaging Results: 06/29/19 05:41 Chest 1 View (Portable) [RAD] Stat 06/29/19 06:34 CTA Chest W/WO Contrast [CT] Stat 06/29/19 08:01 Echo Complete W/ Contrast [ECHO] Routine Operations: None Procedures: Cardiac catheterization, EKG Summary of Care Provided: The patient is a 69 y/o M w/ PMHx: CAD s/p CABG and PCI x 10, Diabetes mellitus type II, Obesity, HTN, HLD, Chronic COPD, Tobacco use history, Chronic Back Pain, Chronic Systolic CHF/Ischemic Cardiomyopathy, Hx VT s/p AICD placement, PVD w/ chronic claudication, CKD stage III (baseline Cr 1.6) who presented to the [facility] ED on 06/29/19 with history of ongoing fatigue, malaise, productive cough with dyspnea and wheezing with recent outpatient Z-Anthony treatment for suspected bronchitis without market improvement with onset of midsternal chest discomfort, 10 out of 10 in severity, described as a aching with radiation to the left upper extremity with increased dyspnea above baseline with no diaphoresis, nausea or emesis occurring the evening prior to admission with self administration of sublingual nitroglycerin x3 with resolution however recurred at approximately 3 AM on day of ED presentation awakening him from sleep, identical in appearance but not resolving with worsened dyspnea and notable wheezing prompting presentation to the ED. Work-up in the ED included T 98.3, heart rate 122, BP 120/60, respiratory rate 17, 92% on room air, CBC with RBC 8, hemoglobin 13.4, platelet 204 with not market left shift evident, coags pending, CMP with chloride 110, BUN/creatinine 22/1.34, glucose 170, lactic acid pending, troponin 0.627, blood culture x2 pending per ED, chest x-ray with mild lower lobe densities compatible with either sub-segmental atelectasis or possibly early pneumonia with chronic COPD changes, EKG with sinus tachycardia with no acute evidence of ischemia. In the ED patient administered Solu-Medrol 125 Milgram IV x1, fentanyl, DuoNeb, albuterol therapies. [facility] to history of ulcer. Patient administered therapeutic Lovenox 100 mg subcu x1 pending CTPA results which eventually resulted noting no obvious pulmonary embolism or dissection with chronic lung disease. Following this result discussed case with Dr. Ponce who evaluated patient and immediately transitioned him to cardiac catheterization lab severe 85% stenosis last remaining vessel of SVG to LCx with widely patent SVG stent with severe LV dysfunction referred for immediate high risk PCI to cardiology at [facility]. Additionally during mission prior to transfer patient treated for an acute on chronic COPD exacerbation suspected secondary to an acute viral syndrome with oxygen supplementation with wean as tolerated to room air, continue ATC duonebs, PRN albuterol, IV methylprednisolone, HOB, IS parameters, deferred antibiotics as suspected viral etiology, pending respiratory viral panel and sputum culture at transition to [facility]. Patient Problems: Active and Suspected Problems (Last Reviewed 12/24/18 @ 14:09 by TISH Blankenship) COPD exacerbation (Acute) Acute respiratory distress (Acute) Cardiac enzymes elevated (Acute) - Physical Exam Vitals/I&O's: Vital Signs Temp Pulse Resp BP Pulse Ox 98.4 F 84 17 123/59 H 94 06/29/19 08:44 06/29/19 10:44 06/29/19 10:44 06/29/19 08:44 06/29/19 10:44 Oxygen Flow Rate (L/min) 2 Oxygen Delivery Method Nasal Cannula Weight: 212 lb 4.812 oz Body Mass Index (BMI) 32.3 Intake and Output for Last 24 Hours 06/27/19 06/28/19 06/29/19 23:59 23:59 23:59 Intake Total 100 / 100 Balance 100 / 100 Laboratory Results 06/29/19 05:35: Total Bilirubin 0.20, Direct Bilirubin 0.06, AST 20, ALT 29, Alkaline Phosphatase 87, Total Protein 6.9, Albumin 3.2, Globulin 3.7 06/29/19 05:35: WBC 8.0, RBC 4.34 L, Hgb 13.4, Hct 41.3, MCV 95.2 H, MCH 30.9, MCHC 32.4, RDW Std Deviation 49.1 H, RDW Coeff of Maggie 14.1, Plt Count 204, MPV 9.3, Immature Gran % (Auto) 0.500, Neut % (Auto) 70.7 H, Lymph % (Auto) 13.8 L, Grand % (Auto) 12.7 H, Eos % (Auto) 1.8, Baso % (Auto) 0.5, Absolute Neuts (auto) 5.6, Absolute Lymphs (auto) 1.10, Nucleated RBC % 0 06/29/19 05:35: PT Cancelled, INR Cancelled, APTT Cancelled 06/29/19 05:35: Sodium 142, Potassium 4.2, Chloride 110 H, Carbon Dioxide 24.0, Anion Gap 8, BUN 22 H, Creatinine 1.34 H, Estim Creat Clear Calc 51.04, Est GFR (MDRD) Af Amer 68, Est GFR (MDRD) Non-Af 56 L, BUN/Creatinine Ratio 16.4, Glucose 170 H, Calcium 8.7, Troponin I 0.627 H* 06/29/19 05:35: Lactic Acid Cancelled 06/29/19 06:38: PT 13.0, INR 1.0, APTT 33.2 06/29/19 06:38: Lactic Acid 2.1 H 06/29/19 06:38: Magnesium 1.9 06/29/19 06:38: Hemoglobin A1c 6.5 H 06/29/19 07:36: Specimen Type ART, Sample Site L Brachial, pH 7.40, Bicarbonate Actual 24.2, POC Total CO2 25, Base Excess -1, O2 Saturation 93 L, ABG pCO2 39.3, ABG pO2 68 L, O2 Delivery Device Nasal Can, Liter Flow 2.0, Blood Gas Notified Whom HOSP , Blood Gas Notified Time 730 06/29/19 08:54: Troponin I 0.672 H* 06/29/19 11:50: Troponin I 1.600 H* 06/29/19 12:09: POC Glucose 188 H 06/29/19 13:43: Activated Clotting Time 153 H Current Medications Acetaminophen (Tylenol) 650 mg PO Q6H PRN PRN PRN Reason: Non-cardiac pain (mod-severe) Al Hydroxide/Mg Hydroxide (Mylanta Ii) 15 - 30 ml PO Q4H PRN PRN PRN Reason: INDIGESTION Albuterol Sulfate (Ventolin Aerosols) 2.5 mg INHALATION Q2H PRN PRN PRN Reason: dyspnea, wheezing Albuterol/Ipratropium (Duoneb) 3 ml INHALATION Q4HWA.RT [facility] Last Admin: 06/29/19 10:41 Dose: 3 ml Documented by: Allopurinol (Zyloprim) 300 mg PO DAILY[facility] RE[facility] Last Admin: 06/29/19 09:32 Dose: 300 mg Documented by: Aspirin (Ecotrin) 81 mg PO DAILY@0800 [facility] Clopidogrel Bisulfate (Plavix) 75 mg PO DAILY [facility] Dextrose (D50w Syringe) 0 gm IV X1 PRN; Protocol PRN Reason: Hypoglycemia Furosemide (Lasix) 40 mg PO DAILY [facility] Last Admin: 06/29/19 09:31 Dose: 40 mg Documented by: Glucagon () 1 mg IM .X1 PRN PRN Reason: Hypoglycemia Guaifenesin (Robitussin) 20 ml PO Q4H PRN PRN PRN Reason: COUGH Last Admin: 06/29/19 09:30 Dose: 20 ml Documented by: Heparin Sodium (Porcine) (Heparin Na) 0 unit IV UD PRN; Protocol Hydralazine HCl (Apresoline Iv) 10 mg IV Q4H PRN PRN PRN Reason: SBP > 160 Sodium Chloride () 1,000 mls @ 100 mls/hr IV .Q10H [facility] Last Admin: 06/29/19 10:31 Dose: 100 mls/hr Documented by: Sodium Chloride () 1,000 mls @ 15 mls/hr IV .Q48H [facility] Insulin Human Lispro (Humalog Kwikpen (Bkc)) 0 unit SC Q6 [facility]; Protocol Last Admin: 06/29/19 12:14 Dose: Not Given Documented by: Isosorbide Mononitrate (Imdur) 30 mg PO DAILY [facility] Last Admin: 06/29/19 09:32 Dose: 30 mg Documented by: Lisinopril (Zestril) 2.5 mg PO DAILY [facility] Last Admin: 06/29/19 09:32 Dose: 2.5 mg Documented by: Magnesium Hydroxide (Milk Of Magnesia) 30 ml PO DAILY PRN PRN Reason: Constipation Melatonin (Melatonin) 3 mg PO QHS PRN PRN PRN Reason: INSOMNIA Methylprednisolone (Solu-Medrol) 40 mg IV Q8 [facility] Metoprolol Succinate (Toprol Xl (Beta Sina)) 100 mg PO DAILY [facility] Last Admin: 06/29/19 09:31 Dose: 100 mg Documented by: Morphine Sulfate () 2 - 4 mg IV Q4H PRN PRN PRN Reason: Pain Score 1-10/10 Morphine Sulfate () 2 - 4 mg IV Q4H PRN PRN PRN Reason: Pain Score 1-10/10 Last Admin: 06/29/19 09:30 Dose: 4 mg Documented by: Nicotine (Nicoderm Cq (Pbkc)) 21 mg TRANSDERM. DAILY [facility] Last Admin: 06/29/19 09:32 Dose: 21 mg Documented by: Nitroglycerin (Nitrostat) 0.4 mg SUBLINGUAL Q5M PRN PRN Reason: CARDIAC/CHEST PAIN Ondansetron HCl (Zofran) 4 mg IV Q8H PRN PRN PRN Reason: NAUSEA/VOMITING Oxycodone HCl (Oxyir) 5 mg PO Q4H PRN PRN PRN Reason: Pain Score 6-10/10 Last Admin: 06/29/19 12:15 Dose: 5 mg Documented by: Pantoprazole Sodium (Protonix) 40 mg PO DAILY [facility] Last Admin: 06/29/19 09:31 Dose: 40 mg Documented by: Rosuvastatin Calcium (Crestor) 40 mg PO QHS [facility] Sodium Chloride () 10 - 40 ml IV UD PRN PRN Reason: SALINE FLUSH Spironolactone (Aldactone) 25 mg PO DAILY [facility] Last Admin: 06/29/19 09:31 Dose: 25 mg Documented by: Throat Lozenges (Cepacol Sore Throat Lozenge) 1 lozenge MUCOUS MEM Q2H PRN PRN PRN Reason: Sore Throat/Cough Home Medications: Medications to take at Discharge Isosorbide Mononitrate [Imdur] 30 mg PO DAILY 02/18/17 Albuterol Aerosols [Ventolin Aerosols] 2.5 mg INHALATION Q4H PRN PRN 02/23/17 Pantoprazole Sodium [Protonix] 40 mg PO DAILY 11/15/17 Lisinopril [Zestril] 2.5 mg PO DAILY 05/21/18 Rosuvastatin Calcium [Crestor] 40 mg PO DAILY 06/16/18 Clopidogrel Bisulfate [Plavix] 75 mg PO DAILY 09/01/18 Allopurinol 300 mg PO DAILY 09/20/18 Metoprolol Succinate 100 mg PO DAILY 12/01/18 Nitroglycerin 0.4 mg SL PRN PRN 12/01/18 Nicotine [Nicoderm Cq] 21 mg TRANSDERM. DAILY patch 12/03/18 Aspirin [Aspir 81] 81 mg PO DAILY #1 tablet. 01/21/19 Albuterol Inhaler [Ventolin Hfa] 2 puff INHALATION Q4H PRN PRN 02/24/19 Spironolactone 25 mg PO DAILY 02/24/19 Ondansetron [Zofran Odt] 4 mg PO Q8H PRN PRN #10 tab 03/24/19 Oxycodone HCl/Acetaminophen [Oxycodon-Acetaminophen 7.5-325] 1 tab PO Q6H PRN 05/02/19 proMETHazine tablet [Phenergan] 25 mg PO Q8H PRN PRN #10 tab 05/13/19 Azithromycin [Zithromax Z-Anthony] 250 mg PO UD #1 box 06/16/19 predniSONE tablet 40 mg PO DAILY #7 tab 06/16/19 furosemide 40 mg tablet 40 mg PO DAILY #90 tab 06/27/19 Primary Care Physician: Juan De La Vega III, MD [Primary Care Provider] - Disposition: Acute care Hospital Minutes spent on discharge:: 35 Patient Condition:: Stable Medical Necessity - Tobacco Use Smoking Status: Current every day smoker Tobacco Use: Cigarettes Meaningful Use Info Meaningful Use Diagnoses (Choose all that apply): None applicable Code Visit OBSV E&M: 89602 Observ/hosp same date L3
[2019-06-29] MEDS: 0.9% Saline Lock 10 ML Syringe IV (15:38)
[2019-06-29] MEDS: HYDROmorphone 1 MG/ML Syringe IV (15:39)
[2019-06-29 19:06] LABS: Bedside Glucose 157 mg/dL (70-110)
--- NOTE | 2019-06-29 20:40 | NURSING ---
Pt moved over into transport stretcher, R fem sheath intact and transduced w/pressurized heparinized saline. [facility] ground transport takes over care of pt following report. Pt is on his way to [facility], pt states that there is no person to notify of time of transport.
== END 2019-06-29 20:40 | disposition short-term general hospital (02) | DRG 281 ==
LOC: ED 07:19 → PCU 07:31 → ICU 14:46
PROVIDERS: Admitting Provider Family Medicine; Emergency Provider Emergency Medicine; Family Provider Family Medicine; PCP Family Medicine; Visit Provider Family Medicine
DX: I21.4 Non-ST elevation (NSTEMI) myocardial infarction (principal); J44.1 Chronic obstructive pulmonary disease with (acute) exacerbation; I50.22 Chronic systolic (congestive) heart failure; I13.0 Hypertensive heart and chronic kidney disease with heart failure and stage 1 through stage 4 chronic kidney disease, or unspecified chronic kidney disease; I25.810 Atherosclerosis of coronary artery bypass graft(s) without angina pectoris; B34.9 Viral infection, unspecified; E78.5 Hyperlipidemia, unspecified; I25.5 Ischemic cardiomyopathy; N18.3 Chronic kidney disease, stage 3 (moderate); F17.210 Nicotine dependence, cigarettes, uncomplicated; E11.22 Type 2 diabetes mellitus with diabetic chronic kidney disease; I25.10 Atherosclerotic heart disease of native coronary artery without angina pectoris; I25.82 Chronic total occlusion of coronary artery; Z95.810 Presence of automatic (implantable) cardiac defibrillator; Z95.5 Presence of coronary angioplasty implant and graft; Z79.02 Long term (current) use of antithrombotics/antiplatelets; Z79.82 Long term (current) use of aspirin
CPT/HCPCS: 36415; 36600; 71045; 71046; 71275; 80048; 80076; 82803; 82962; 83036; 83605; 83735; 84484; 85025; 85347; 85610; 85730; 87040; 87070; 87205; 87633; 87804; 93005; 93306; 93459; 94640; 96361; 96374; 96375; 97802; 99251; 99285; 99406; J7030; J7040; Q9957; Q9967; A4216; C1769; C1894; C8929; G0463; J2405

== ENCOUNTER 2019-07-05 09:39 | Observation (INO) | payer MEDICARE, MEDICAID, SELFPAY ==
[2019-06-29 08:04] VITALS: BMI 32.3
[2019-07-05] VITALS (13 sets, daily range): BP systolic 82–109; BP diastolic 47–73; PULSE 61–79; RESP 17–24; TEMP 36.4–36.8; O2SAT 94–96; BMI 32.7; BMI 32.5; BMI 32.6
--- NOTE | 2019-07-05 10:04 | EKG12_ITS ---
Test Reason : CP Blood Pressure : / mmHG Vent. Rate : 065 BPM Atrial Rate : 065 BPM P-R Int : 140 ms QRS Dur : 102 ms QT Int : 424 ms P-R-T Axes : 052 -24 144 degrees QTc Int : 440 ms Normal sinus rhythm ST & T wave abnormality, consider anterolateral ischemia Abnormal ECG Confirmed by SHAVONNE LUNDBERG, LISA ([id number]), dictionary editor LANDRY YARBROUGH ([id number]) on 07/06/2019 11:24:27 AM Referred By: Nathen Dorantes Confirmed By:LISA MARVIN MD
--- NOTE | 2019-07-05 10:05 | RAD_ITS ---
STUDY: X-RAY CHEST REASON FOR EXAM: Male, 69 years old. Weakness and wheezing. Chest pain. TECHNIQUE: Single AP portable view of the chest. COMPARISON: Comparison is made with prior examination dated June 29, 2019. FINDINGS: EKG electrodes are seen. Mild increased markings at the lung bases slightly worse on the left side suggestive of bibasilar infiltrates. Follow-up is recommended. There is no demonstrated pleural abnormality. Sternal cerclage wires and vascular clips are present from a prior sternotomy and coronary artery bypass graft procedure (CABG). A left-sided dual-chamber pacemaker is seen. Normal mediastinum and serjio. Normal visualized pulmonary arteries. Normal visualized aortic arch and descending thoracic aorta. Normal visualized thoracic spine. Normal visualized ribs, clavicles, and shoulders. There is no demonstrated abnormality of the visualized soft tissue structures of the upper abdomen. RAD/Chest 1 View (Portable) IMPRESSION: Patchy bibasilar infiltrates. Electronically Signed: Arcenio Leary, at 10:18 EST , Service support ,
[2019-07-05] MEDS: Ipratropium/Albuterol Sulfate 3 ML AMPUL.NEB INHALATION (10:12)
[2019-07-05] MEDS: 0.9% Normal Saline 1,000 ML 1000 ML IV (10:21)
[2019-07-05 10:29] LABS: Absolute Lymphocyte Count 2.16 X10^3/uL (0.83-4.51); Absolute Neutrophil Count 4.4 X10^3/uL (2.0-7.7); Basophil# 0.04 X10^3/uL; Basophil% 0.5 % (0-1); Eosinophil# 0.09 X10^3/uL; Eosinophils% 1.2 % (0-5); Hematocrit 42.1 % (40-54); Hemoglobin 14.1 g/dL (13.0-16.5); Lymphocyte # 2.16 X10^3/ul (4.0); Lymphocyte % 29.6 % (19-41); Mean Corp Hgb Conc 33.5 g/dL (32-36); Mean Corpuscular Hgb 31.1 pg (27.0-32.0); Mean Corpuscular Volume 92.7 fL (80-94); Mean Platelet Vol. 9.5 fl (6.2-12.0); Monocyte# 0.56 X10^3/uL; Monocyte% 7.7 % (0-10); NRBC Flagged by Analyzer 0 % (0-5); Neutrophil # 4.38 X10^3/uL (2.7-7.7); Neutrophil % 60.2 % (47-70); Platelet Count 227 K/mm3 (150-450); RBC Distribution Width CV 13.5 % (11.6-14.6); RBC Distribution Width SD 45.4 fl (35.1-43.9); Red Blood Count 4.54 M/mm3 (4.6-6.2); White Blood Count 7.3 K/mm3 (4.4-11.0)
[2019-07-05 10:47] LABS: Anion Gap 5 (5-15); BUN 29 mg/dL (7-18); Calcium,Total 8.7 mg/dL (8.5-10.1); Chloride 106 mmol/L (98-107); Creatinine, Serum 1.32 mg/dL (0.70-1.30); EST Glomerular Filtration Rate 57 mL/min (>60); Est Glom Filt Rate - Afr Amer 69 mL/min (>60); Estimated Creatinine Clearance 51.82 ml/min; Glucose 98 mg/dL (74-106); Potassium 4.5 mmol/L (3.5-5.1); Sodium Level 139 mmol/L (136-145)
[2019-07-05 10:54] LABS: Lactic Acid 1.6 mmol/L (0.4-1.9)
[2019-07-05 11:02] LABS: BNP,B-Type NATRIURETIC PEPTIDE 127.4 pg/mL (0-100)
--- NOTE | 2019-07-05 11:54 | ED.VISSUMM ---
- ER Visit Summary Date of Service: 07/05/19 Chief Complaint: Lysed weakness with low blood pressure History of Present Illness: The patient is a 69 M diet-controlled diabetes, CAD D with cardiac stents with COPD and an EF of 2024%. Recently hospitalized and had stents and was transferred to [facility]. Said he was discharged in the hospital about a week ago and is just been weak. Denies nausea, vomiting, diarrhea, fever or melena. Physical Examination: Older male initial blood pressure 82/61. Temperature 98. Pulse ox 95% on room air no signs hypoxia. H EENT exam unremarkable and mildly dry mucous membranes. Neck nontender no lymphadenopathy. No JVD. Lungs clear to auscultation bilaterally. Heart regular rate and rhythm no murmur rate about 65. Chest were nontender. Abdomen soft nontender normal bowel sounds no peritoneal signs. Extremities moves all 4. Calves nontender no edema no cords. Neurologically is awake alert with no focal motor deficits. Test Results: CBC shows white count of 7. Hemoglobin 14. Otherwise unremarkable. Chemistries normal. BUN 29 creatinine 1.3 which is baseline renal insufficiency. Normal gap. Troponin is slightly elevated 0.1 but recently it was as high as 1.6 it is coming down. BNP is 127. Lactate is normal 1.6. Patient's EKG shows a's normal sinus rhythm rate of 65 with incomplete left bundle branch block and unchanged from prior EKG from about a week ago. Chest x-ray shows chronic changes no acute process normal cardiac silhouette. Prior sternotomy and left-sided pacemaker. Read both myself and the radiologist. I do not see any signs of pneumonia. Emergency Department Course and Treatment: Patient treated with a liter of normal saline to try to increase his blood pressure. He presents hypotensive which may be from dehydration. Repeat exam no significant change. His blood pressure currently is 84/60. He has already received a liter of fluid. Lungs remain clear. I did review old labs he had a recent CTA of his chest which showed no PE. He is also had a recent CT of his abdomen showing no aneurysm. Treatment Plan: Due to his continued hypotension in spite of a liter of fluid I do feel like he needs to be admitted. He will need to be closely monitored for his blood pressure and carefully hydrated due to his EF of 25%. I have the hospitalist on page. Disposition: Admission Impression: Acute generalized weakness Acute hypotension History of CAD with dilated cardiomyopathy and EF of 25%. History of diabetes and cardiac stents This note was generated with [employer] dictation software. It may contain incorrect words, spelling, and punctuation that were not noted in review of the chart prior to signing ED Disposition - Plan for ED Patient: Referrals: Juan De La Vega III, MD [Primary Care Provider] -
[2019-07-05] MEDS: 0.9% Normal Saline 1,000 ML 75 ML IV (14:25)
--- NOTE | 2019-07-05 14:59 | PCM.HP.STD ---
Problem List (1) History of left heart catheterization Status: Chronic Comment: LVEF: by LV gram 15-20 %; Koi Multivessel CAD; Occluded [place] mid LAD. Occluded [place] proximal RCA. Occluded SVG to DIAG. Occluded SVG to RCA. Occluded HUMPHREY to LAD. Severe 85% stenosis in last remaining vessel of SVG to LCX with widely patent SVG stents. Severe LV dysfunction. Referred for immediate PCI: Will tx to [facility] for high risk PCI to last remaining vessel of SVG to OM. 06/29/19 per JACKIEN @ [facility] (2) Hypoxia, sleep related Status: Chronic (3) Coarse tremors Status: Chronic (4) Headache Status: Chronic (5) COPD exacerbation Status: Resolved (6) Cardiac enzymes elevated Status: Resolved (7) ARIADNA (obstructive sleep apnea) Status: Suspected (8) COPD (chronic obstructive pulmonary disease) Status: Chronic Qualifiers: (9) Obesity (BMI 30.0-34.9) Status: Chronic (10) Nicotine dependence Status: Chronic Qualifiers: Nicotine product type: other Substance use status: in remission Qualified Code(s): F17.291 - Nicotine dependence, other tobacco product, in remission (11) Gout Status: Chronic (12) Degenerative cervical disc Status: Chronic (13) Chronic back pain Status: Chronic Qualifiers: Back pain location: back pain in unspecified location Back pain laterality: unspecified Qualified Code(s): M54.9 - Dorsalgia, unspecified; G89.29 - Other chronic pain (14) Presence of automatic implantable cardioverter-defibrillator Status: Chronic (15) H/O coronary artery bypass surgery Status: Chronic Comment: HUMPHREY-LAD, SVG-D1, SVG-OM (16) Chronic renal failure, stage 3 (moderate) Status: Chronic (17) Chronic systolic (congestive) heart failure Status: Chronic (18) Stented coronary artery Status: Chronic Comment: has had 7 stents as of 06/15/17 (19) Ischemic cardiomyopathy Status: Chronic Comment: 25% ejection fraction in November 2016 (20) V-tach Status: Chronic Comment: has an AICD (21) Benign essential hypertension Status: Chronic (22) Gastroesophageal reflux disease Status: Chronic Qualifiers: Esophagitis presence: esophagitis presence not specified (23) Hyperlipidemia Status: Chronic Qualifiers: Hyperlipidemia type: unspecified Qualified Code(s): E78.5 - Hyperlipidemia, unspecified (24) Type 2 diabetes mellitus Status: Chronic Qualifiers: Diabetes mellitus intermediate card tender insulin use: without half-way use Diabetes mellitus complication status: with other specified complication Qualified Code(s): E11.69 - Type 2 diabetes mellitus with other specified complication (25) Morbid obesity Status: Chronic (26) CAD (coronary artery disease) Status: Chronic Qualifiers: Coronary Disease-Associated Artery/Lesion type: unspecified vessel or lesion type [place] vs. transplanted heart: unspecified whether [place] or transplanted heart Associated angina: angina presence unspecified Qualified Code(s): I25.10 - Atherosclerotic heart disease of [place] coronary artery without angina pectoris History of Present Illness Date of Admission: 07/05/19 Chief Complaint: Generalized weakness, shortness of breath. The patient is a 69 year old M who presents emergency room due to generalized weakness and shortness of breath. Patient reports he was discharged from [facility] 3 days ago following stent placement. Patient reports he has been very fatigued since that time and has been sleeping a lot. He also reports wheezing and shortness of breath. Patient was recently discharged from [facility] 06/29/2019 following chest pain and was transferred to [facility] for PCI. He was also noted to have COPD exacerbation secondary to RSV. Patient denies chest pain. Denies fever, chills. Denies productive cough. Patient has a past medical history of CAD status post multiple stents, COPD, hypertension, hyperlipidemia, type 2 diabetes mellitus, morbid obesity, ischemic cardiomyopathy, chronic back pain, tobacco dependence. Past Medical History Past Medical History (Chronic Problems): Chronic Problems (Last Reviewed 12/24/18 @ 14:09 by TISH Blankenship) History of left heart catheterization (Chronic 06/29/19) LVEF: by LV gram 15-20 %; Koi Multivessel CAD; Occluded [place] mid LAD. Occluded [place] proximal RCA. Occluded SVG to DIAG. Occluded SVG to RCA. Occluded HUMPHREY to LAD. Severe 85% stenosis in last remaining vessel of SVG to LCX with widely patent SVG stents. Severe LV dysfunction. Referred for immediate PCI: Will tx to [facility] for high risk PCI to last remaining vessel of SVG to OM. 06/29/19 per DANA @ [facility] Hypoxia, sleep related (Chronic) Coarse tremors (Chronic) Headache (Chronic) COPD (chronic obstructive pulmonary disease) (Chronic) Obesity (BMI 30.0-34.9) (Chronic) Nicotine dependence (Chronic) Gout (Chronic) Degenerative cervical disc (Chronic) Chronic back pain (Chronic) Presence of automatic implantable cardioverter-defibrillator (Chronic) H/O coronary artery bypass surgery (Chronic ~2008) HUMPHREY-LAD, SVG-D1, SVG-OM Chronic renal failure, stage 3 (moderate) (Chronic) Chronic systolic (congestive) heart failure (Chronic) Stented coronary artery (Chronic ~12/2016) has had 7 stents as of 06/15/17 Ischemic cardiomyopathy (Chronic) 25% ejection fraction in November 2016 V-tach (Chronic) has an AICD Benign essential hypertension (Chronic) Gastroesophageal reflux disease (Chronic) Hyperlipidemia (Chronic) Type 2 diabetes mellitus (Chronic) Morbid obesity (Chronic) CAD (coronary artery disease) (Chronic) Medical History: Medical History (Last Reviewed 12/24/18 @ 14:09 by Marlene Robles [employer]-C) Nicotine dependence (Chronic) F17.200 Gout (Chronic) M10.9 Degenerative cervical disc (Chronic) M50.30 Chronic back pain (Chronic) M54.9, G89.29 Chronic renal failure, stage 3 (moderate) (Chronic) N18.3 Chronic systolic (congestive) heart failure (Chronic) I50.22 Ischemic cardiomyopathy (Chronic) I25.5 25% ejection fraction in November 2016 V-tach (Chronic) I47.2 has an AICD Benign essential hypertension (Chronic) I10 Gastroesophageal reflux disease (Chronic) K21.9 Hyperlipidemia (Chronic) E78.5 Type 2 diabetes mellitus (Chronic) E11.9 Morbid obesity (Chronic) E66.01 CAD (coronary artery disease) (Chronic) I25.10 Tubular adenoma of colon (Inactive) D12.6 Allergies chlorpromazine HCl [From Thorazine] Allergy (Severe, Verified 07/05/19 09:41) Hives PER PATIENT tramadol HCl [From Ultram] Allergy (Severe, Verified 07/05/19 09:41) Hives PER PATIENT codeine Allergy (Intermediate, Verified 07/05/19 09:41) Hives atorvastatin Adverse Reaction (Intermediate, Verified 07/05/19 09:41) Other LEG PAIN/CRAMPS cyclobenzaprine [From Flexeril] Adverse Reaction (Verified 07/05/19 09:41) Upset Stomach metformin Adverse Reaction (Verified 07/05/19 09:41) Upset Stomach naproxen Adverse Reaction (Verified 07/05/19 09:41) Upset Stomach promethazine [From Phenergan] Adverse Reaction (Verified 07/05/19 09:41) Other CONFUSION Home Medications: Ambulatory Orders Medication Instructions Recorded Isosorbide Mononitrate [Imdur] 30 mg PO DAILY 02/18/17 Albuterol Aerosols [Ventolin 2.5 mg INHALATION Q4H PRN PRN 02/23/17 Aerosols] Pantoprazole Sodium [Protonix] 40 mg PO DAILY 11/15/17 Lisinopril [Zestril] 2.5 mg PO DAILY 05/21/18 Rosuvastatin Calcium [Crestor] 40 mg PO DAILY 06/16/18 Clopidogrel Bisulfate [Plavix] 75 mg PO DAILY 09/01/18 Allopurinol 300 mg PO DAILY 09/20/18 Metoprolol Succinate 100 mg PO DAILY 12/01/18 Nitroglycerin 0.4 mg SL PRN PRN 12/01/18 Nicotine [Nicoderm Cq] 21 mg TRANSDERM. DAILY patch 12/03/18 Aspirin [Aspir 81] 81 mg PO DAILY #1 tablet. 01/21/19 Albuterol Inhaler [Ventolin Hfa] 2 puff INHALATION Q4H PRN PRN 02/24/19 Spironolactone 25 mg PO DAILY 02/24/19 Ondansetron [Zofran Odt] 4 mg PO Q8H PRN PRN #10 tab 03/24/19 Oxycodone HCl/Acetaminophen 1 tab PO Q6H PRN 05/02/19 [Oxycodon-Acetaminophen 7.5-325] proMETHazine tablet [Phenergan] 25 mg PO Q8H PRN PRN #10 tab 05/13/19 Azithromycin [Zithromax Z-Anthony] 250 mg PO UD #1 box 06/16/19 predniSONE tablet 40 mg PO DAILY #7 tab 06/16/19 furosemide 40 mg tablet 40 mg PO DAILY #90 tab 06/27/19 Surgical History: Surgical History (Last Updated 06/29/19 @ 14:39 by Carmen Gray) History of left heart catheterization (Chronic) Onset Date: 06/29/19 Z98.890 LVEF: by LV gram 15-20 %; Koi Multivessel CAD; Occluded [place] mid LAD. Occluded [place] proximal RCA. Occluded SVG to DIAG. Occluded SVG to RCA. Occluded HUMPHREY to LAD. Severe 85% stenosis in last remaining vessel of SVG to LCX with widely patent SVG stents. Severe LV dysfunction. Referred for immediate PCI: Will tx to [facility] for high risk PCI to last remaining vessel of SVG to OM. 06/29/19 per DANA @ [facility] Presence of automatic implantable cardioverter-defibrillator (Chronic) Z95.810 H/O coronary artery bypass surgery (Chronic) Onset Date: ~2008 Z95.1 HUMPHREY-LAD, SVG-D1, SVG-OM Stented coronary artery (Chronic) Onset Date: ~12/2016 has had 7 stents as of 06/15/17 Hx of hernia repair (Inactive) Z98.890, Z87.19 Previous back surgery (Inactive) Z98.890 Surgical History: angioplasty - stents x10, coronary bypass surgery, - - AICD placement, back surgery x 2, hernia repair Psychiatric History: No pertinent psych hx Lives: Spouse/ Significant Other Smoking Status: Current every day smoker Tobacco Use: Cigarettes Alcohol: Sober Drugs: None - *Family History Paternal Family History: Family History (Last Reviewed 07/05/19 @ 16:09 by TISH Kerns) Brother CAD (coronary artery disease) Myocardial infarction Sudden cardiac Mother Cancer Hypertension Father Cancer COPD (chronic obstructive pulmonary disease) History Items: Cancer, Heart Disease Maternal Family History: Family History (Last Reviewed 07/05/19 @ 16:09 by TISH Kerns) Brother CAD (coronary artery disease) Myocardial infarction Sudden cardiac Mother Cancer Hypertension Father Cancer COPD (chronic obstructive pulmonary disease) History Items: - - Patient notes a paternal family history of chronic lung disease, lung cancer with history of tobacco use. Review of Systems Constitutional: Reports: Fatigue. Denies: Chills, Fever, Weight Change HEENT: Denies: Head Aches, Sinus Congestion, Sinus Drainage Cardiovascular: Denies: Chest Pain, Edema, Light Headedness, Palpitations, Syncope Respiratory: Reports: Shortness of Breath, Wheezing. Denies: Cough, Shortness of breath at rest, Sputum production Gastrointestinal: Reports: Abdominal Pain Genitourinary: Denies: Dysuria Musculoskeletal: Denies: Joint Pain, Joint Tenderness Skin: Denies: Rash, Wounds Neurological: Denies: Numbness, Tingling, Focal weakness Psychiatric: Denies: Anxiety, Depression, Homicidal Ideations, Suicidal Ideations Hematologic/ Lymphatic: Denies: Easy Bruising, Easy Bleeding VTE Information - Inpt Only VTE Present on Admission: No VTE Mechan Device Prophylaxis: None VTE Pharm Prophylaxis ordered?: Yes - Physical Exam Vitals/I&O's: Vital Signs Temp Pulse Resp BP Pulse Ox 98.2 F 67 18 96/56 L 96 07/05/19 14:00 07/05/19 14:00 07/05/19 14:00 07/05/19 14:00 07/05/19 14:00 Oxygen Delivery Method Room Air Weight: 215 lb 2.738 oz Body Mass Index (BMI) 32.5 Intake and Output for Last 24 Hours 07/03/19 07/04/19 07/05/19 23:59 23:59 23:59 Intake Total 1000 / 1000 Balance 1000 / 1000 General: Alert, Oriented x3, Cooperative HEENT: Atraumatic, PERRLA, EOMI, Normocephalic Oral: Dry Mucosa Neck: Supple, No JVD, Negative Carotid Bruits Lungs: Diminished, Wheezes Cardiovascular: Regular rate, Regular Rhythm, Normal S1, Normal S2, No murmurs Abdomen: Bowel Sounds Present, Soft, Non Tender, Non-Distended, Obese Extremities: No clubbing, No cyanosis, No edema, Capillary Refill Less than 3 Seconds Skin: No rashes, No breakdown Musculoskeletal: No Tenderness to Palpation of Joints or Extremities Neurological: Cranial nerves II-XII grossly intact, Neuro grossly intact Psych/Mental Status: Normal Affect, Appropriate Laboratory Results 07/05/19 10:22: WBC 7.3, RBC 4.54 L, Hgb 14.1, Hct 42.1, MCV 92.7, MCH 31.1, MCHC 33.5, RDW Std Deviation 45.4 H, RDW Coeff of Maggie 13.5, Plt Count 227, MPV 9.5, Immature Gran % (Auto) 0.800, Neut % (Auto) 60.2, Lymph % (Auto) 29.6, Loíza % (Auto) 7.7, Eos % (Auto) 1.2, Baso % (Auto) 0.5, Absolute Neuts (auto) 4.4, Absolute Lymphs (auto) 2.16, Nucleated RBC % 0 07/05/19 10:22: Sodium 139, Potassium 4.5, Chloride 106, Carbon Dioxide 28.0, Anion Gap 5, BUN 29 H, Creatinine 1.32 H, Estim Creat Clear Calc 51.82, Est GFR (MDRD) Af Amer 69, Est GFR (MDRD) Non-Af 57 L, BUN/Creatinine Ratio 22.0 H, Glucose 98, Calcium 8.7, Troponin I 0.109 H 07/05/19 10:22: B-Natriuretic Peptide 127.4 H 07/05/19 10:22: Lactic Acid 1.6 Current Medications Albuterol Sulfate (Ventolin Aerosols) 2.5 mg INHALATION Q4H PRN PRN PRN Reason: WHEEZING Aspirin (Ecotrin) 81 mg PO DAILYCM CAROLYN Clopidogrel Bisulfate (Plavix) 75 mg PO DAILY [facility] Heparin Sodium (Porcine) (Heparin Na) 5,000 unit SC Q12 [facility] Sodium Chloride () 1,000 mls @ 75 mls/hr IV .[id number] [facility] Last Admin: 07/05/19 14:25 Dose: 75 mls/hr Documented by: Isosorbide Mononitrate (Imdur) 30 mg PO DAILY CAROLYN Lisinopril (Zestril) 2.5 mg PO DAILY CAROLYN Nicotine (Nicoderm Cq (Pbkc)) 21 mg TRANSDERM. DAILY [facility] Nitroglycerin (Nitrostat) 0.4 mg SUBLINGUAL Q5M PRN PRN Reason: .CHEST PAIN Oxycodone HCl (Oxyir) 7.5 mg PO Q6H PRN PRN Reason: Pain Score 1-10/10 Pantoprazole Sodium (Protonix) 40 mg PO DAILY [facility] Prednisone () 40 mg PO DAILY@0800 CAROLYN Rosuvastatin Calcium (Crestor) 40 mg PO QHS [facility] Assessment/Plan All Active Problems (Last Reviewed 12/24/18 @ 14:09 by Marlene Robles NP-C) COPD exacerbation (Resolved) Cardiac enzymes elevated (Resolved) 1. Hypotension-hold Lasix, spironolactone regimen on hold. Gentle IV fluids. 2. CAD status post CABG x4 and multiple stents-recent PCI at [facility]. Continue aspirin, statin, Plavix. 3. Chronic COPD with recent exacerbation secondary to RSV-no acute exacerbation. As needed albuterol aerosol. Continue prior prednisone taper. 4. Hypertension-lisinopril, isosorbide discontinued. 5. Hyperlipidemia-continue statin. 6. Chronic systolic CHF/ischemic cardiomyopathy-status post AICD-continue aspirin, Plavix, statin, beta-vimal. 7. Chronic kidney disease stage III-at baseline, trend BMP. 8. Type 2 diabetes [id number] ACHS with sliding scale insulin. 9. GERD-continue PPI. 10. Tobacco dependence-encourage cessation. DVT prophylaxis-heparin subcu This patient was seen by TISH Kerns under the supervision of Dr. Dorantes.
[2019-07-05] MEDS: oxyCODONE 5 MG Tablet 7.5 MG PO ×2 (16:07→21:52)
--- NOTE | 2019-07-05 19:15 | NURSING ---
called resp therapy for breathing tx.
[2019-07-05] MEDS: Albuterol 2.5 MG/3 ML VIAL.NEB. INHALATION ×2 (19:30→22:30)
--- NOTE | 2019-07-05 20:58 | NURSING ---
pt with audible exp wheezes. requesting breathing tx. informed of Q4H prn. will inform hospitalist.
[2019-07-05] MEDS: Rosuvastatin 20 MG Tablet 40 MG PO (22:00)
[2019-07-05] MEDS: Heparin Injection (Vial) 5,000 UNIT/ML VIAL 5000 UNIT SC (22:01)
[2019-07-05] MEDS: predniSONE 20 MG Tablet PO (22:05)
[2019-07-05 22:11] LABS: Bedside Glucose 116 mg/dL (70-110)
[2019-07-06] VITALS (13 sets, daily range): BP systolic 98–129; BP diastolic 47–76; PULSE 71–88; RESP 18–20; TEMP 36.4–36.8; O2SAT 92–97
[2019-07-06] MEDS: Ketorolac 10 MG Tablet PO (00:27)
[2019-07-06] MEDS: Albuterol 2.5 MG/3 ML VIAL.NEB. INHALATION ×3 (03:30→10:32)
[2019-07-06] MEDS: 0.9% Normal Saline 1,000 ML 75 ML IV (03:37)
[2019-07-06] MEDS: oxyCODONE 5 MG Tablet 7.5 MG PO ×2 (03:38→11:31)
[2019-07-06 06:51] LABS: Bedside Glucose 148 mg/dL (70-110)
[2019-07-06 07:29] LABS: Anion Gap 5 (5-15); BUN 33 mg/dL (7-18); BUN/Creat Ratio 23.9 RATIO (10-20); Calcium,Total 8.4 mg/dL (8.5-10.1); Chloride 108 mmol/L (98-107); Creatinine, Serum 1.38 mg/dL (0.70-1.30); EST Glomerular Filtration Rate 54 mL/min (>60); Est Glom Filt Rate - Afr Amer 66 mL/min (>60); Estimated Creatinine Clearance 49.57 ml/min; Glucose 170 mg/dL (74-106); Potassium 6.4 mmol/L (3.5-5.1); Sodium Level 135 mmol/L (136-145)
[2019-07-06] MEDS: Sodium Polystyrene Sulfonate 15 GM/60 ML UDC 30 GM PO (07:57)
--- NOTE | 2019-07-06 10:40 | CASEMGMT ---
SW met with patient, introduced self and role at [facility]. SW brought up Palliative Care. SW explained the program. When SW asked patient if he was interested in a referral being made he said he has tried it before. He said he dropped it when they tried to force him to have another back surgery. SW asked if he was sure it was Palliative Care and he said he was sure. He is not interested in trying again. Alyssa JOHNSON MSW
[2019-07-06] MEDS: Heparin Injection (Vial) 5,000 UNIT/ML VIAL 5000 UNIT SC (11:20)
[2019-07-06] MEDS: Clopidogrel Bisulfate 75 MG Tablet PO (11:20)
[2019-07-06] MEDS: Aspirin E.C. 81 MG Tablet PO (11:20)
[2019-07-06] MEDS: Pantoprazole Sodium 40 MG Tablet PO (11:20)
[2019-07-06] MEDS: predniSONE 20 MG Tablet PO (11:21)
[2019-07-06] MEDS: Isosorbide Mononitrate 30 MG Tablet PO (11:21)
[2019-07-06] MEDS: Insulin Lispro 100 UNIT/ML INSULN.PEN SC (11:21)
[2019-07-06] MEDS: Lisinopril 2.5 MG Tablet PO (11:21)
[2019-07-06 11:45] LABS: Bedside Glucose 153 mg/dL (70-110)
--- NOTE | 2019-07-06 11:51 | DCINST_ITS ---
You will use the following diet at home:: Cardiac Discharge Activity: Return to Normal Activity Allergies/Adverse Reactions: Allergies chlorpromazine HCl [From Thorazine] Allergy (Severe, Verified 07/05/19 09:41) Hives PER PATIENT tramadol HCl [From Ultram] Allergy (Severe, Verified 07/05/19 09:41) Hives PER PATIENT codeine Allergy (Intermediate, Verified 07/05/19 09:41) Hives atorvastatin Adverse Reaction (Intermediate, Verified 07/05/19 09:41) Other LEG PAIN/CRAMPS cyclobenzaprine [From Flexeril] Adverse Reaction (Verified 07/05/19 09:41) Upset Stomach metformin Adverse Reaction (Verified 07/05/19 09:41) Upset Stomach naproxen Adverse Reaction (Verified 07/05/19:41) Upset Stomach promethazine [From Phenergan] Adverse Reaction (Verified 07/05/19 09:41) Other CONFUSION Medications to take at Discharge Isosorbide Mononitrate [Imdur] 30 mg PO DAILY 02/18/17 Albuterol Aerosols [Ventolin Aerosols] 2.5 mg INHALATION Q4H PRN PRN 02/23/17 Pantoprazole Sodium [Protonix] 40 mg PO DAILY 11/15/17 Lisinopril [Zestril] 2.5 mg PO DAILY 05/21/18 Rosuvastatin Calcium [Crestor] 40 mg PO DAILY 06/16/18 Clopidogrel Bisulfate [Plavix] 75 mg PO DAILY 09/01/18 Allopurinol 300 mg PO DAILY 09/20/18 Nitroglycerin 0.4 mg SL PRN PRN 12/01/18 Nicotine [Nicoderm Cq] 21 mg TRANSDERM. DAILY patch 12/03/18 Aspirin [Aspir 81] 81 mg PO DAILY #1 tablet. 01/21/19 Albuterol Inhaler [Ventolin Hfa] 2 puff INHALATION Q4H PRN PRN 02/24/19 Ondansetron [Zofran Odt] 4 mg PO Q8H PRN PRN #10 tab 03/24/19 Oxycodone HCl/Acetaminophen [Oxycodon-Acetaminophen 7.5-325] 1 tab PO Q6H PRN 05/02/19 proMETHazine tablet [Phenergan tablet] 25 mg PO Q8H PRN PRN #10 tab 10/18/19 furosemide 40 mg tablet 40 mg PO DAILY #90 tab 06/27/19 Metoprolol Tartrate 25 mg PO BID #60 tab 07/06/19 predniSONE tablet 40 mg PO DAILY #7 tab 07/06/19 The following prescriptions were given: Metoprolol Tartrate 25 mg PO BID #60 tab Transmission Status: Pending to [facility]30 Primary Care Physician: Juan De La Vega III, MD [Primary Care Provider] - Please follow up with your Primary Care Physician in: 1 Week Test Results: Test results from this visit will be discussed in further detail at your follow- up appointment, if applicable. Please Follow Up With: Richard Park NP-C When: As scheduled for routine follow up Proposed Discharge Date: 07/06/19
--- NOTE | 2019-07-06 13:44 | DS.PCM_ITS ---
Discharge Date and Diagnosis Date of Admission: 07/05/19 Date of Discharge: 07/06/19 - Primary Discharge Diagnosis 1. Hypotension 2. Hyperkalemia 3. CAD status post CABG x4 and multiple stents 4. Chronic COPD with recent exacerbation secondary to RSV 5. Hypertension 6. Hyperlipidemia 7. Chronic systolic CHF/ischemic cardiomyopathy-status post AICD 8. Chronic kidney disease stage III 9. Type 2 diabetes mellitus 10. GERD-continue PPI. 11. Tobacco dependence - Secondary Discharge Diagnosis Chronic Problems (Last Reviewed 12/24/18 @ 14:09 by Marlene Robles NP-Beth) History of left heart catheterization (Chronic 06/29/19) LVEF: by LV gram 15-20 %; [place] Multivessel CAD; Occluded otoe-missouria mid LAD. Occluded otoe-[place]ou[place] proximal RCA. Occluded SVG to DIAG. Occluded SVG to RCA. Occluded HUMPHREY to LAD. Severe 85% stenosis in last remaining vessel of SVG to LCX with widely patent SVG stents. Severe LV dysfunction. Referred for immediate PCI: Will tx to [facility] for high risk PCI to last remaining vessel of SVG to OM. 06/29/19 per DANA @ [facility] Hypoxia, sleep related (Chronic) Coarse tremors (Chronic) Headache (Chronic) COPD (chronic obstructive pulmonary disease) (Chronic) Obesity (BMI 30.0-34.9) (Chronic) Nicotine dependence (Chronic) Gout (Chronic) Degenerative cervical disc (Chronic) Chronic back pain (Chronic) Presence of automatic implantable cardioverter-defibrillator (Chronic) H/O coronary artery bypass surgery (Chronic ~2008) HUMPHREY-LAD, SVG-D1, SVG-OM Chronic renal failure, stage 3 (moderate) (Chronic) Chronic systolic (congestive) heart failure (Chronic) Stented coronary artery (Chronic ~12/2016) has had 7 stents as of 06/15/17 Ischemic cardiomyopathy (Chronic) 25% ejection fraction in November 2016 V-tach (Chronic) has an AICD Benign essential hypertension (Chronic) Gastroesophageal reflux disease (Chronic) Hyperlipidemia (Chronic) Type 2 diabetes mellitus (Chronic) Morbid obesity (Chronic) CAD (coronary artery disease) (Chronic) Hospital Course and Treatment Imaging Results: Diagnostic Data Chest X-Ray 07/05/19 10:05 IMPRESSION: Patchy bibasilar infiltrates. Electronically Signed: Arcenio Leary, at 10:18 EST , Service support , Operations: None Procedures: None Summary of Care Provided: The patient is a 69 year old M admitted 09/05/2017 due to generalized weakness, shortness of breath. 1. Hypotension- Lasix, spironolactone regimen held during admission. Hypotension quickly resolved. Resume Lasix regimen at discharge. Spironolactone regimen discontinued going forward. Follow-up with primary care physician in 1 week. Follow-up with cardiology as scheduled. 2. Hyperkalemia-suspect secondary to spironolactone regimen. Resolved following Kayexalate x1. Spironolactone discontinued at discharge. 3. CAD status post CABG x4 and multiple stents-recent PCI at [facility]. Continue aspirin, statin, Plavix. 4. Chronic COPD with recent exacerbation secondary to RSV-no acute exacerbation. Continue prior prednisone taper. 5. Hypertension-lisinopril, isosorbide discontinued. 6. Hyperlipidemia-continue statin. 7. Chronic systolic CHF/ischemic cardiomyopathy-status post AICD-continue aspirin, Plavix, statin, beta-vimal. 8. Chronic kidney disease stage III-at baseline, trend BMP. 9. Type 2 diabetes mellitus-not on regimen, diet controlled. 10. GERD-continue PPI. 11. Tobacco dependence-encourage cessation. General: Alert, Oriented x3, Cooperative HEENT: Atraumatic, PERRLA, EOMI, Normocephalic Oral: Dry Mucosa Neck: Supple, No JVD, Negative Carotid Bruits Lungs: Diminished, Wheezes Cardiovascular: Regular rate, Regular Rhythm, Normal S1, Normal S2, No murmurs Abdomen: Bowel Sounds Present, Soft, Non Tender, Non-Distended, Obese Extremities: No clubbing, No cyanosis, No edema, Capillary Refill Less than 3 Seconds Skin: No rashes, No breakdown Musculoskeletal: No Tenderness to Palpation of Joints or Extremities Neurological: Cranial nerves II-XII grossly intact, Neuro grossly intact Psych/Mental Status: Normal Affect, Appropriate Patient seen and examined prior to discharge. Physical assessment as noted above. Patient is stable for discharge with follow up recommendations as noted above. This patient was seen by TISH Kerns under the supervision of Dr. Dorantes. - Physical Exam Vitals/I&O's: Vital Signs Temp Pulse Resp BP Pulse Ox 97.6 F L 88 18 118/63 93 07/06/19 10:24 07/06/19 10:32 07/06/19 10:32 07/06/19 10:24 07/06/19 10:24 Oxygen Flow Rate (L/min) 2 Oxygen Delivery Method Room Air Weight: 215 lb 2.738 oz Body Mass Index (BMI) 32.5 Intake and Output for Last 24 Hours 07/04/19 07/05/19 07/06/19 23:59 23:59 23:59 Intake Total 1200 / 1700 1740 / 1740 Output Total 600 / 600 Balance 600 / 1100 1740 / 1740 Laboratory Results 07/05/19 21:59: POC Glucose 116 H 07/06/19 06:25: Sodium 135 L, Potassium 6.4 H*, Chloride 108 H, Carbon Dioxide 22.0, Anion Gap 5, BUN 33 H, Creatinine 1.38 H, Estim Creat Clear Calc 49.57, Est GFR (MDRD) Af Amer 66, Est GFR (MDRD) Non-Af 54 L, BUN/Creatinine Ratio 23.9 H, Glucose 170 H, Calcium 8.4 L 07/06/19 06:43: POC Glucose 148 H 07/06/19 11:05: POC Glucose 153 H Current Medications Albuterol Sulfate (Ventolin Aerosols) 2.5 mg INHALATION Q4H PRN PRN PRN Reason: WHEEZING Last Admin: 07/06/19 10:32 Dose: 2.5 mg Documented by: [facility] Admin: 07/06/19 11:20 Dose: 81 mg Documented by: Clopidogrel Bisulfate (Plavix) 75 mg PO DAILY [facility] Last Admin: 07/06/19 11:20 Dose: 75 mg Documented by: Heparin Sodium (Porcine) (Heparin Na) 5,000 unit SC Q12 [facility] Last Admin: 07/06/19 11:20 Dose: 5,000 unit Documented by: Sodium Chloride () 1,000 mls @ 75 mls/hr IV .[id number] [facility] Last Admin: 07/06/19 03:37 Dose: 75 mls/hr Documented by: Insulin Human Lispro (Humalog Kwikpen (Bkc)) 0 unit SC ACHS [facility]; Protocol Last Admin: 07/06/19 11:21 Dose: 1 u Documented by: Isosorbide Mononitrate (Imdur) 30 mg PO DAILY [facility] Last Admin: 07/06/19 11:21 Dose: 30 mg Documented by: Lisinopril (Zestril) 2.5 mg PO DAILY [facility] Last Admin: 07/06/19 11:21 Dose: 2.5 mg Documented by: Nicotine (Nicoderm Cq (Pbkc)) 21 mg TRANSDERM. DAILY [facility] Last Admin: 07/05/19 22:04 Dose: 21 mg Documented by: Nitroglycerin (Nitrostat) 0.4 mg SUBLINGUAL Q5M PRN PRN Reason: .CHEST PAIN Oxycodone HCl (Oxyir) 7.5 mg PO Q6H PRN PRN Reason: Pain Score 1-05/05 Last Admin: 07/06/19 11:31 Dose: 7.5 mg Documented by: Pantoprazole Sodium (Protonix) 40 mg PO DAILY [facility] Last Admin: 07/06/19 11:20 Dose: 40 mg Documented by: Prednisone () 20 mg PO DAILY@0800 [facility] Last Admin: 07/06/19 11:21 Dose: 20 mg Documented by: Rosuvastatin Calcium (Crestor) 40 mg PO QHS [facility] Last Admin: 07/05/19 22:00 Dose: 40 mg Documented by: Sodium Chloride () 10 - 40 ml IV UD PRN PRN Reason: SALINE FLUSH Discharge Diet: Low fat/ Low Cholesterol Discharge Activity: Return to Normal Activity Home Medications: Medications to take at Discharge Isosorbide Mononitrate [Imdur] 30 mg PO DAILY 02/18/17 Albuterol Aerosols [Ventolin Aerosols] 2.5 mg INHALATION Q4H PRN PRN 02/23/17 Pantoprazole Sodium [Protonix] 40 mg PO DAILY 11/15/17 Lisinopril [Zestril] 2.5 mg PO DAILY 05/21/18 Rosuvastatin Calcium [Crestor] 40 mg PO DAILY 06/16/18 Clopidogrel Bisulfate [Plavix] 75 mg PO DAILY 09/01/18 Allopurinol 300 mg PO DAILY 09/20/18 Nitroglycerin 0.4 mg SL PRN PRN 12/01/18 Nicotine [Nicoderm Cq] 21 mg TRANSDERM. DAILY patch 12/03/18 Aspirin [Aspir 81] 81 mg PO DAILY #1 tablet. 01/21/19 Albuterol Inhaler [Ventolin Hfa] 2 puff INHALATION Q4H PRN PRN 02/24/19 Ondansetron [Zofran Odt] 4 mg PO Q8H PRN PRN #10 tab 03/24/19 Oxycodone HCl/Acetaminophen [Oxycodon-Acetaminophen 7.5-325] 1 tab PO Q6H PRN 1 proMETHazine tablet [Phenergan tablet] 25 mg PO Q8H PRN PRN #10 tab 05/13/19 furosemide 40 mg tablet 40 mg PO DAILY #90 tab 06/27/19 Metoprolol Tartrate 25 mg PO BID #60 tab 07/06/19 predniSONE tablet 40 mg PO DAILY #7 tab 07/06/19 Following Prescrptions Were Given to Patient: Metoprolol Tartrate 25 mg PO BID #60 tab Transmission Status: Received by [facility] Primary Care Physician: Juan De La Vega III, MD [Primary Care Provider] - Please follow up with your Primary Care Physician in: 1 Week Please Follow Up With: Primary Orthopedic Physician Assistant When: As scheduled Disposition: Home Minutes spent on discharge:: 35 Patient Condition:: Stable Medical Necessity - Tobacco Use Smoking Status: Current every day smoker Tobacco Use: Cigarettes Meaningful Use Info Meaningful Use Diagnoses (Choose all that apply): None applicable
[2019-07-06 14:23] LABS: Potassium 4.3 mmol/L (3.5-5.1)
--- NOTE | 2019-07-08 11:37 | CCN.REFER ---
No answer and no returned calls x 1 week of phone calls and voicemails.
== END 2019-07-06 11:51 | disposition home or self-care (01) ==
LOC: ED 10:21 → PCU 12:49
PROVIDERS: Nurse Practitioner Family; Admitting Provider Internal Medicine; Emergency Provider Emergency Medicine; Family Provider Family Medicine; PCP Family Medicine; Referring Provider Internal Medicine; Visit Provider Internal Medicine
DX: I95.9 Hypotension, unspecified (principal); E87.5 Hyperkalemia; I25.10 Atherosclerotic heart disease of native coronary artery without angina pectoris; J44.9 Chronic obstructive pulmonary disease, unspecified; E78.5 Hyperlipidemia, unspecified; I13.0 Hypertensive heart and chronic kidney disease with heart failure and stage 1 through stage 4 chronic kidney disease, or unspecified chronic kidney disease; N18.3 Chronic kidney disease, stage 3 (moderate); E11.22 Type 2 diabetes mellitus with diabetic chronic kidney disease; I50.22 Chronic systolic (congestive) heart failure; K21.9 Gastro-esophageal reflux disease without esophagitis; E66.9 Obesity, unspecified; G89.29 Other chronic pain; I42.0 Dilated cardiomyopathy; G47.33 Obstructive sleep apnea (adult) (pediatric); Z95.1 Presence of aortocoronary bypass graft; Z68.32 Body mass index [BMI] 32.0-32.9, adult; Z71.3 Dietary counseling and surveillance; Z79.899 Other long term (current) drug therapy; Z79.02 Long term (current) use of antithrombotics/antiplatelets; Z79.82 Long term (current) use of aspirin; M10.9 Gout, unspecified; Z95.810 Presence of automatic (implantable) cardiac defibrillator; F17.210 Nicotine dependence, cigarettes, uncomplicated
CPT/HCPCS: 36415; 71045; 80048; 82962; 83605; 83880; 84132; 84484; 85025; 93005; 94640; 96360; 96361; 96372; 99218; 99285; J7030; G0378

== ENCOUNTER 2019-08-09 08:49 | Emergency (ER) | payer MEDICARE, MEDICAID, SELFPAY ==
[2019-07-05 13:50] VITALS: BMI 32.5
[2019-08-09] VITALS (7 sets, daily range): BP systolic 120–142; BP diastolic 78–86; PULSE 71–83; RESP 15–20; TEMP 36.4–36.6; O2SAT 95–98; BMI 33.6
--- NOTE | 2019-08-09 08:51 | EKG12_ITS ---
Test Reason : SOB Blood Pressure : / mmHG Vent. Rate : 072 BPM Atrial Rate : 072 BPM P-R Int : 150 ms QRS Dur : 118 ms QT Int : 450 ms P-R-T Axes : 046 -30 146 degrees QTc Int : 492 ms Sinus rhythm with occasional Premature ventricular complexes Left axis deviation Possible Anterior infarct , age undetermined ST & T wave abnormality, consider lateral ischemia Abnormal ECG Confirmed by SKYLER LUNDBERG, [place] ([id number]), avid editor HARINI STONE ([id number]) on 08/12/2019 9:53:35 AM Referred By: HOANG Confirmed By:SHAKIRA HOLLAND MD
--- NOTE | 2019-08-09 08:53 | ED.VIS.GEN ---
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 He has paradoxical breathing. Paramedics report respiratory rate was 32. Respiratory rate is presently 26. Patient denies fever, chills night sweats. Nu[place] headache. He denies visual, ocular auditory symptoms. He states he does have productive cough that started 2 to 3 days ago. He has white-colored sputum. Is not normal for him to have a white-colored sputum. He does have remote history of pneumonia. He has not been on prednisone recently. He denies history of sleep apnea. He denies orthopnea or PND. He is on Lasix for pedal edema. He is status post coronary bypass surgery. He states he has had a total of 7 vessels bypassed. He denies GI or symptoms. He denies neurologic symptoms. Prior similar symptoms: Yes - Greater than 1 month ago Recent Illness/Hospitalization: No - Past Medical History (1) Benign essential hypertension Status: Chronic (2) CAD (coronary artery disease) Status: Chronic (3) COPD (chronic obstructive pulmonary disease) Status: Chronic (4) Chronic renal failure, stage 3 (moderate) Status: Chronic (5) Chronic systolic (congestive) heart failure Status: Chronic (6) Coarse tremors Status: Chronic (7) Degenerative cervical disc Status: Chronic (8) Gout Status: Chronic (9) H/O coronary artery bypass surgery Status: Chronic Comment: HUMPHREY-LAD, SVG-D1, SVG-OM (10) Hyperlipidemia Status: Chronic (11) Hypoxia, sleep related Status: Chronic (12) Morbid obesity Status: Chronic (13) Obesity (BMI 30.0-34.9) Status: Chronic (14) Presence of automatic implantable cardioverter-defibrillator Status: Chronic (15) V-tach Status: Chronic Comment: has an AICD Past Medical History - Allergies and Home Meds Allergies/Adverse Reactions: Allergies chlorpromazine HCl [From Thorazine] Allergy (Severe, Verified 08/09/19 08:54) Hives PER PATIENT tramadol HCl [From Ultram] Allergy (Severe, Verified 08/09/19 08:54) Hives PER PATIENT codeine Allergy (Intermediate, Verified 08/09/19 08:54) Hives atorvastatin Adverse Reaction (Intermediate, Verified 08/09/19 08:54) Other LEG PAIN/CRAMPS cyclobenzaprine [From Flexeril] Adverse Reaction (Verified 08/09/19 08:54) Upset Stomach metformin Adverse Reaction (Verified 08/09/19 08:54) Upset Stomach naproxen Adverse Reaction (Verified 08/09/19 08:54) Upset Stomach promethazine [From Phenergan] Adverse Reaction (Verified 08/09/19 08:54) Other CONFUSION Primary Care Physician: Juan De La Vega III, MD [Primary Care Provider] - Prior records reviewed: Yes - Per review medical records patient does have sleep-related hypoxia and obst Surgical History: angioplasty - stents x10, coronary bypass surgery, - - AICD placement, back surgery x 2, hernia repair Smoking Status: Current every day smoker - Family History Paternal Family History: Family History (Last Reviewed 07/05/19 @ 16:09 by TISH Kerns) Brother CAD (coronary artery disease) Myocardial infarction Sudden cardiac Mother Cancer Hypertension Father Cancer COPD (chronic obstructive pulmonary disease) Family History: Reports: Cancer, Heart Disease Maternal Family History: Family History (Last Reviewed 07/05/19 @ 16:09 by TISH Kerns) Brother CAD (coronary artery disease) Myocardial infarction Sudden cardiac Mother Cancer Hypertension Father Cancer COPD (chronic obstructive pulmonary disease) Family History: Reports: - - Patient notes a paternal family history of chronic lung disease, lung cancer with history of tobacco use. Review of Systems General: Denies: Chills, Fever, Malaise, Subjective, Sweats Eyes: Denies: Visual changes - bilaterally, Blurred Vision - bilaterally ENT: Reports: - - Denies change in voice.. Denies: Bilateral ear pain, Rhinorrhea, Sore throat Cardiovascular: Denies: Chest pain, Palpitations Respiratory: Reports: Dyspnea, Cough, Sputum, Dyspnea on exertion, - - Patient has paradoxical breathing.. Denies: Orthopnea, Paroxysmal nocturnal dyspnea Gastrointestinal: Reports: - - There is a midline supraumbilical incisional reducible hernia.. Denies: Abdominal pain, Nausea, Vomiting, Diarrhea, Melena, Hematochezia Genitourinary: Denies: Dysuria, Hematuria, Frequency Musculoskeletal: Reports: Swelling - Ports new swelling of his lower extremities.. Denies: Myalgias, Arthralgias, Neck pain, Back pain, Extremity Pain, -, - Skin: Denies: Rash, Wounds Neurological: Denies: Headache, Weakness, Numbness Psych: Reports: Depression, Anxiety Endocrine: Denies: Polyuria, Polydipsia Hematologic: Denies: Easy bruising, Easy bleeding Physical Exam Inital Vital Signs reviewed: Yes General: Well nourished, Well developed, Obese, Acute Distress Head: Normocephalic, Atraumatic Eyes: Perrl, EOMI. Negative for: Pale conjunctiva, Scleral icterus ENT: Moist mucous membranes, No rhinorrhea, TM's clear Neck: Supple, Nontender, No lymphadenopathy, No JVD, - - There is expiratory stridor noted. Trachea is midline. Cardiovascular: Regular rate, Regular rhythm, No murmurs, Normal S1, Normal S2 Respiratory: Chest nontender, Rales - Rales noted on right only, Rhonchi, Wheezing - There is bilateral expiratory wheezing noted bilaterally, Decreased Air Movement, - - Paradoxical breathing Abdomen: Soft, Nontender, Nondistended, Normal bowel sounds, Hypoactive bowel sounds, Hernia reducible. Negative for: Hepatomegaly, Splenomegaly Rectal: Deferred Back: Nontender, Normal Inspection Extremities: Nontender, Edema - 4 mm pitting edema Skin: Normal color, No rash, No Trauma. Negative for: Cyanosis, Diaphoresis, Jaundice Neurological: Alert, Oriented x3, Cranial nerves II-XII grossly intact, Normal Strength, Normal Sensation Psychological: Depressed Diagnostic/Tx/Re-eval Chest X-Ray - ED: 2 View, Read by ED Physician, Normal, Heart, Bony Structures, No Acute Disease, Chronic Changes, - - Pacemaker noted. Sternal wires noted. Impressions Chest X-Ray 08/09/19 09:50 IMPRESSION: Hyperinflation. Stable increased markings at the lung bases suggestive of scarring. Electronically Signed: Arcenio Leary, at 10:33 EST , Service support , 08/09/19 09:50 Chest PA and Lateral [RAD] Stat Laboratory Results 08/09/19 08/09/19 08/09/19 09:30 09:30 09:30 WBC 5.7 RBC 4.25 L Hgb 13.0 Hct 39.4 L MCV 92.7 MCH 30.6 MCHC 33.0 RDW Std Deviation 47.7 H RDW Coeff of Maggie 14.1 Plt Count 181 MPV 9.2 Immature Gran % (Auto) 0.400 Neut % (Auto) 57.5 Lymph % (Auto) 25.9 [place] % (Auto) 12.2 H Eos % (Auto) 3.5 Baso % (Auto) 0.5 Absolute Neuts (auto) 3.3 Absolute Lymphs (auto) 1.47 Nucleated RBC % 0 Specimen Type Sample Site VBG pH VBG pO2 VBG O2 Sat (Calc) VBG O2 Content VBG Base Excess POC Mix VBG pCO2 Pt Tmp O2 Delivery Device Blood Gas Notified Whom Blood Gas Notified Time Sodium 138 Potassium 3.2 L Chloride 104 Carbon Dioxide 28.0 Anion Gap 6 BUN 21 H Creatinine 1.75 H Estim Creat Clear Calc 39.09 Est GFR (MDRD) Af Amer 50 L Est GFR (MDRD) Non-Af 41 L BUN/Creatinine Ratio 12.0 Glucose 134 H Lactic Acid 1.8 Calcium 8.4 L Troponin I 0.067 H B-Natriuretic Peptide 08/09/19 08/09/19 09:30 09:42 WBC RBC Hgb Hct MCV MCH MCHC RDW Std Deviation RDW Coeff of Maggie Plt Count MPV Immature Gran % (Auto) Neut % (Auto) Lymph % (Auto) [place] % (Auto) Eos % (Auto) Baso % (Auto) Absolute Neuts (auto) Absolute Lymphs (auto) Nucleated RBC % Specimen Type ELYSE Sample Site OTHER VBG pH 7.38 VBG pO2 69 H VBG O2 Sat (Calc) 93 H VBG O2 Content 28 VBG Base Excess 2 POC Mix VBG pCO2 Pt Tmp 46.0 O2 Delivery Device Room Air Blood Gas Notified Whom ED MD Blood Gas Notified Time 942 Sodium Potassium Chloride Carbon Dioxide Anion Gap BUN Creatinine Estim Creat Clear Calc Est GFR (MDRD) Af Amer Est GFR (MDRD) Non-Af BUN/Creatinine Ratio Glucose Lactic Acid Calcium Troponin I B-Natriuretic Peptide 431.1 H Troponin and BNP are elevated. Patient's had elevated troponin and BNP noted from prior records. Patient did not desaturate with ambulation. Therefore, will discharge to home with prescription for a burst of prednisone and antibiotics. - EKG Initial EKG Interpretation: Sinus Rhythm - Sinus rhythm with ventricular rate of 72. There is a premature ventricular complex noted. TN interval is 150 ms. QS duration 118 ms. QT duration 450 ms. [place] is to the left. There is decreased anterior force. He has biphasic T wave in V2, V3 with inverted T waves V4 through V6. This is unchanged from July 05, 2019. - Medical Decision Making Presents with respiratory distress. With history of obstructive sleep apnea ABG was obtained to assess pH and CO2. Patient received DuoNeb in route. He will receive 3 aerosol treatments of albuterol. On 25 million Solu-Medrol. Chest x-ray was obtained to assess for pneumonia. Since the pitting edema is reportedly new BNP was ordered. Suspect pulmonary hypertension from obstructive sleep apnea and right heart failure. Differential diagnosis includes viral illness, exacerbate COPD, pneumonia, need to evaluate for cardiac etiology as well with new onset pitting edema. She was reassessed at 1052. He does not appear in respiratory stress. He has minimal wheezing. Will ambulate to determine his pulse ox drops. ED Disposition - Plan for ED Patient: Disposition: Home or Assisted Living Diagnosis: Acute exacerbation of COPD with asthma, Chronic bronchitis with acute exacerbation, Lymphedema in adult patient, Elevated troponin level not due myocardial infarction, Right heart failure due to pulmonary hypertension Instructions: Copd Flare Prescriptions: Prednisone [Deltasone] 40 mg PO DAILY #10 tab Transmission Status: Pending to [facility] Doxycycline 100 mg PO BID #14 cap Transmission Status: Pending to [facility] Referrals: Juan De La Vega III, MD [Primary Care Provider] - 3-5 Days
[2019-08-09] MEDS: Ipratropium/Albuterol Sulfate 3 ML AMPUL.NEB INHALATION (09:02)
[2019-08-09] MEDS: MethylPREDNISolone 125 MG/2 ML Vial IV (09:36)
[2019-08-09 09:41] LABS: Absolute Lymphocyte Count 1.47 X10^3/uL (0.83-4.51); Absolute Neutrophil Count 3.3 X10^3/uL (2.0-7.7); Basophil# 0.03 X10^3/uL; Basophil% 0.5 % (0-1); Eosinophils% 3.5 % (0-5); Hematocrit 39.4 % (40-54); Lymphocyte # 1.47 X10^3/ul (4.0); Lymphocyte % 25.9 % (19-41); Mean Corpuscular Hgb 30.6 pg (27.0-32.0); Mean Corpuscular Volume 92.7 fL (80-94); Mean Platelet Vol. 9.2 fl (6.2-12.0); Monocyte# 0.69 X10^3/uL; Monocyte% 12.2 % (0-10); NRBC Flagged by Analyzer 0 % (0-5); Neutrophil # 3.26 X10^3/uL (2.7-7.7); Neutrophil % 57.5 % (47-70); Platelet Count 181 K/mm3 (150-450); RBC Distribution Width CV 14.1 % (11.6-14.6); RBC Distribution Width SD 47.7 fl (35.1-43.9); Red Blood Count 4.25 M/mm3 (4.6-6.2); White Blood Count 5.7 K/mm3 (4.4-11.0)
[2019-08-09 09:45] LABS: Blood Gas Specimen Type VEN; O2 Delivery Device Room Air; SITE OTHER; Time Given 942; VBG BASE EXCESS 2 mmol/L (-1.0-3.5); VBG Bicarbonate 27 mmol/L (22-26); VBG Oxygen Content 28 mmol/L (23-33); VBG PO2 69 mmHg (25-40); VBG SO2 93 % (50-70); VBG pH 7.38 (7.32-7.42)
--- NOTE | 2019-08-09 09:50 | RAD_ITS ---
STUDY: X-RAY CHEST REASON FOR EXAM: Male, 69 years old. DYSPNEA, COUGH, WHEEZING; -- COPD, CABG, H/O NE, ARRHYTHMIA TECHNIQUE: PA and lateral views of the chest. COMPARISON: Comparison is made with prior study dated July 05, 2019. FINDINGS: EKG electrodes are seen. Mild increased markings at the lung bases suggestive of scarring. This is worse at the left lung base. Blunting of the left costophrenic angle. Sternal cerclage wires and vascular clips are present from a prior sternotomy and coronary artery bypass graft procedure (CABG). A left-sided dual-chamber pacemaker is seen. Normal mediastinum and serjio. Normal visualized pulmonary arteries. There is atherosclerotic tortuosity of the aortic arch and descending thoracic aorta. Normal visualized thoracic spine. Normal visualized ribs, clavicles, and shoulders. There is no demonstrated abnormality of the visualized soft tissue structures of the upper abdomen. RAD/Chest PA and Lateral IMPRESSION: Hyperinflation. Stable increased markings at the lung bases suggestive of scarring. Electronically Signed: Arcenio Leary, at 10:33 EST , Service support ,
[2019-08-09 09:59] LABS: Anion Gap 6 (5-15); BUN 21 mg/dL (7-18); Calcium,Total 8.4 mg/dL (8.5-10.1); Chloride 104 mmol/L (98-107); Creatinine, Serum 1.75 mg/dL (0.70-1.30); EST Glomerular Filtration Rate 41 mL/min (>60); Est Glom Filt Rate - Afr Amer 50 mL/min (>60); Estimated Creatinine Clearance 39.09 ml/min; Glucose 134 mg/dL (74-106); Potassium 3.2 mmol/L (3.5-5.1); Sodium Level 138 mmol/L (136-145)
[2019-08-09] MEDS: Albuterol 2.5 MG/3 ML VIAL.NEB. INHALATION ×2 (10:01)
[2019-08-09 10:05] LABS: Lactic Acid 1.8 mmol/L (0.4-1.9)
[2019-08-09 10:16] LABS: BNP,B-Type NATRIURETIC PEPTIDE 431.1 pg/mL (0-100)
== END 2019-08-09 12:49 | disposition home or self-care (01) ==
PROVIDERS: Emergency Provider Emergency Medicine; Family Provider Family Medicine; PCP Family Medicine
DX: J44.1 Chronic obstructive pulmonary disease with (acute) exacerbation (principal); J45.901 Unspecified asthma with (acute) exacerbation; I89.0 Lymphedema, not elsewhere classified; I27.20 Pulmonary hypertension, unspecified; G47.33 Obstructive sleep apnea (adult) (pediatric); E78.5 Hyperlipidemia, unspecified; I25.10 Atherosclerotic heart disease of native coronary artery without angina pectoris; I13.0 Hypertensive heart and chronic kidney disease with heart failure and stage 1 through stage 4 chronic kidney disease, or unspecified chronic kidney disease; I25.2 Old myocardial infarction; Z88.8 Allergy status to other drugs, medicaments and biological substances; N18.3 Chronic kidney disease, stage 3 (moderate); M10.9 Gout, unspecified; I50.22 Chronic systolic (congestive) heart failure; F17.200 Nicotine dependence, unspecified, uncomplicated; Z82.49 Family history of ischemic heart disease and other diseases of the circulatory system; Z88.6 Allergy status to analgesic agent; Z95.1 Presence of aortocoronary bypass graft; Z95.810 Presence of automatic (implantable) cardiac defibrillator; E66.01 Morbid (severe) obesity due to excess calories
CPT/HCPCS: 71046; 80048; 82803; 83605; 83880; 84484; 85025; 93005; 94640; 99285; J7030; A4216

== ENCOUNTER 2019-09-07 14:54 | Emergency (ER) | payer MEDICARE, MEDICAID, SELFPAY ==
[2019-08-09 08:51] VITALS: BMI 33.6
[2019-09-07 14:56] VITALS: BP 112/75; PULSE 92; RESP 17; TEMP 36.4; O2SAT 96; BMI 31.1
--- NOTE | 2019-09-07 15:07 | ED.VISSUMM ---
- ER Visit Summary Date of Service: 09/07/19 Chief Complaint: Vomiting History of Present Illness: The patient is a 69 M who has nausea and vomiting. Started 2 days ago. Every time he eats he vomits. He denies any abdominal pain or chest pain associated with this. No diarrhea or urinary symptoms. He took nothing for it at home. He denies any fevers. Physical Examination: Vital signs reviewed. HEENT exam unremarkable. Heart is regular rate and rhythm without murmurs. Lungs are clear to auscultation. Abdomen is soft and nontender. Extremities reveal no edema. Skin exam normal. Neurologic exam normal. Test Results: Laboratory studies show sodium of 135 and a creatinine of 1.6 which is baseline Emergency Department Course and Treatment: Patient was given normal saline and Zofran. He then tells me that Zofran normally does not work for him. I gave him a dose of Phenergan. I will give him Phenergan for home. This is likely viral. I do not feel any imaging is necessary. He will call his doctor for follow-up Treatment Plan: [] Disposition: Discharge Impression: Nausea vomiting This note was generated with [facility] dictation software. It may contain incorrect words, spelling, and punctuation that were not noted in review of the chart prior to signing ED Disposition - Plan for ED Patient: Disposition: Home or Assisted Living Instructions: DIET, Vomiting or Diarrhea [6yr-Adult] Prescriptions: proMETHazine tablet [Phenergan] 25 mg PO Q6H PRN PRN #10 tab PRN Reason: Nausea Transmission Status: Pending to [facility] #30 Referrals: Juan De La Vega III, MD [Primary Care Provider] - Additional Instructions: Your prescription was transmitted to [facility]
[2019-09-07 15:31] LABS: Absolute Lymphocyte Count 1.19 X10^3/uL (0.83-4.51); Absolute Neutrophil Count 4.6 X10^3/uL (2.0-7.7); Basophil# 0.02 X10^3/uL; Basophil% 0.3 % (0-1); Eosinophil# 0.06 X10^3/uL; Eosinophils% 0.9 % (0-5); Hematocrit 48.1 % (40-54); Hemoglobin 15.8 g/dL (13.0-16.5); Lymphocyte # 1.19 X10^3/ul (4.0); Mean Corp Hgb Conc 32.8 g/dL (32-36); Mean Corpuscular Hgb 29.9 pg (27.0-32.0); Mean Corpuscular Volume 91.1 fL (80-94); Mean Platelet Vol. 9.2 fl (6.2-12.0); Monocyte# 0.71 X10^3/uL; Monocyte% 10.8 % (0-10); NRBC Flagged by Analyzer 0 % (0-5); Neutrophil # 4.59 X10^3/uL (2.7-7.7); Neutrophil % 69.5 % (47-70); Platelet Count 240 K/mm3 (150-450); RBC Distribution Width CV 13.6 % (11.6-14.6); Red Blood Count 5.28 M/mm3 (4.6-6.2); White Blood Count 6.6 K/mm3 (4.4-11.0)
[2019-09-07 15:44] LABS: ALB/GLOB Ratio 1.1 RATIO (0.9-2.4); AST(SGOT) 26 U/L (15-37); Alanine Aminotransfer ALT/SGPT 49 U/L (16-61); Albumin, Serum 4.1 g/dL (3.2-5.0); Alkaline Phosphatase 99 U/L (45-117); Anion Gap 12 (5-15); BUN 25 mg/dL (7-18); BUN/Creat Ratio 15.6 RATIO (10-20); Calcium,Total 9.6 mg/dL (8.5-10.1); Chloride 101 mmol/L (98-107); EST Glomerular Filtration Rate 46 mL/min (>60); Est Glom Filt Rate - Afr Amer 56 mL/min (>60); Estimated Creatinine Clearance 42.75 ml/min; Globulin 3.9 g/dL (2.2-4.2); Glucose 139 mg/dL (74-106); Lipase 76 U/L (73-393); Potassium 3.8 mmol/L (3.5-5.1); Sodium Level 135 mmol/L (136-145)
[2019-09-07] MEDS: Ondansetron 4 MG/2 ML Vial IV (15:50)
[2019-09-07] MEDS: 0.9% Normal Saline 1,000 ML 999 ML IV (15:50)
[2019-09-07] MEDS: proMETHazine 25 MG/ML Syringe 12.5 MG IV (16:36)
== END 2019-09-07 17:04 | disposition home or self-care (01) ==
PROVIDERS: Emergency Provider Emergency Medicine; PCP Family Medicine
DX: R11.2 Nausea with vomiting, unspecified (principal); I25.10 Atherosclerotic heart disease of native coronary artery without angina pectoris; J44.9 Chronic obstructive pulmonary disease, unspecified; I10 Essential (primary) hypertension; K21.9 Gastro-esophageal reflux disease without esophagitis; I50.9 Heart failure, unspecified
CPT/HCPCS: 80053; 83690; 85025; 99284; J7030; A4216; J2405

== ENCOUNTER 2019-09-23 08:08 | Inpatient (IN) | payer MEDICARE, MEDICAID, SELFPAY ==
[2019-09-23] VITALS (36 sets, daily range): BP systolic 80–141; BP diastolic 48–86; PULSE 72–98; RESP 14–95; TEMP 36.4–36.9; O2SAT 93–98; BMI 34.2; BMI 31.8
--- NOTE | 2019-09-23 08:11 | EKG12_ITS ---
Test Reason : SOB Blood Pressure : / mmHG Vent. Rate : 097 BPM Atrial Rate : 097 BPM P-R Int : 152 ms QRS Dur : 106 ms QT Int : 376 ms P-R-T Axes : 061 016 141 degrees QTc Int : 477 ms Normal sinus rhythm Incomplete left bundle branch block ST & T wave abnormality, consider lateral ischemia Abnormal ECG Confirmed by BERYL LUNDBERG, MICHELLE ([id number]), news copy editor COREY BRYANT ([id number]) on 09/26/2019 9:58:32 AM Referred By: HOANG Confirmed By:MICHELLE CORDOBA MD
--- NOTE | 2019-09-23 08:16 | ED.DCSUM_ITS ---
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 He states he slept in a chair upright yesterday. He admits to not taking his medications yesterday and admits to not being compliant with his diet. Paramedics informed me that pulse ox is 91 on room air. They did administer albuterol treatment. They are concerned he is in congestive heart failure. Patient does admit to cough. He states he does not know the color of the sputum. He denies fever or chills. He denies ocular, visual auditory symptoms. He does admit to orthopnea, but he denies PND. Does admit to swelling of his lower extremities. The swelling is possibly slightly worse than normal. He denies history of VTE. Prior similar symptoms: Yes Recent Illness/Hospitalization: Yes - Past Medical History (1) Benign essential hypertension Status: Chronic (2) CAD (coronary artery disease) Status: Chronic (3) COPD (chronic obstructive pulmonary disease) Status: Chronic (4) Chronic renal failure, stage 3 (moderate) Status: Chronic (5) Chronic systolic (congestive) heart failure Status: Chronic (6) Degenerative cervical disc Status: Chronic (7) Gastroesophageal reflux disease Status: Chronic (8) Gout Status: Chronic (9) H/O coronary artery bypass surgery Status: Chronic Comment: HUMPHREY-LAD, SVG-D1, SVG-OM (10) Hyperlipidemia Status: Chronic (11) Hypoxia, sleep related Status: Chronic (12) Ischemic cardiomyopathy Status: Chronic Comment: 25% ejection fraction in November 2016 (13) Morbid obesity Status: Chronic (14) Nicotine dependence Status: Chronic (15) Obesity (BMI 30.0-34.9) Status: Chronic (16) Presence of automatic implantable cardioverter-defibrillator Status: Chronic (17) V-tach Status: Chronic Comment: has an AICD Past Medical History - Allergies and Home Meds Allergies/Adverse Reactions: Allergies chlorpromazine HCl [From Thorazine] Allergy (Severe, Verified 09/07/19 14:56) Hives PER PATIENT tramadol HCl [From Ultram] Allergy (Severe, Verified 09/07/19 14:56) Hives PER PATIENT codeine Allergy (Intermediate, Verified 09/07/19 14:56) Hives atorvastatin Adverse Reaction (Intermediate, Verified 09/07/19 14:56) Other LEG PAIN/CRAMPS cyclobenzaprine [From Flexeril] Adverse Reaction (Verified 09/07/19 14:56) Upset Stomach metformin Adverse Reaction (Verified 09/07/19 14:56) Upset Stomach naproxen Adverse Reaction (Verified 09/07/19 14:56) Upset Stomach promethazine [From Phenergan] Adverse Reaction (Verified 09/07/19 14:56) Other CONFUSION Primary Care Physician: Juan De La Vega III, MD [Primary Care Provider] - Prior records reviewed: Yes - Last cardiac catheterization report. Surgical History: angioplasty - stents x10, coronary bypass surgery, - - AICD placement, back surgery x 2, hernia repair Smoking Status: Current some day smoker - Family History Paternal Family History: Family History (Last Reviewed 07/05/19 @ 16:09 by TISH Kerns) Brother CAD (coronary artery disease) Myocardial infarction Sudden cardiac Mother Cancer Hypertension Father Cancer COPD (chronic obstructive pulmonary disease) Family History: Reports: Cancer, Heart Disease Maternal Family History: Family History (Last Reviewed 07/05/19 @ 16:09 by TISH Kerns) Brother CAD (coronary artery disease) Myocardial infarction Sudden cardiac Mother Cancer Hypertension Father Cancer COPD (chronic obstructive pulmonary disease) Family History: Reports: - - Patient notes a paternal family history of chronic lung disease, lung cancer with history of tobacco use. Review of Systems General: Reports: Malaise. Denies: Chills, Fever, Subjective, Sweats Eyes: Denies: Visual changes - bilaterally, Blurred Vision - bilaterally ENT: Denies: Rhinorrhea, Sore throat Cardiovascular: Denies: Chest pain, Palpitations, Heart racing Respiratory: Reports: Dyspnea, Cough, Sputum, Dyspnea on exertion, Orthopnea. Denies: Paroxysmal nocturnal dyspnea Gastrointestinal: Denies: Abdominal pain, Nausea, Vomiting, Diarrhea, Melena, Hematochezia Genitourinary: Denies: Dysuria, Hematuria, Frequency Musculoskeletal: Reports: Swelling. Denies: Myalgias, Arthralgias, Neck pain, Back pain, Extremity Pain, -, - Skin: Denies: Rash, Wounds Neurological: Denies: Weakness Psych: Reports: Depression. Denies: Anxiety Endocrine: Denies: Polyuria, Polydipsia Hematologic: Denies: Easy bruising, Easy bleeding Allergy: Denies: Swelling of the mouth, Swelling of the tongue Physical Exam Vital Signs/Narrative: Vital Signs Temp Pulse Resp BP Pulse Ox 09/23/19 08:08 97.9 F 98 20 H 139/75 H 98 Inital Vital Signs reviewed: Yes General: Well nourished, Well developed, Obese, Acute Distress - Patient appears in respiratory distress. He has audible congestion with breathing. Eyes: Perrl, EOMI. Negative for: Pale conjunctiva, Scleral icterus ENT: Moist mucous membranes, No rhinorrhea Neck: Supple, Nontender, No lymphadenopathy, No JVD - Unable to determine if patient has JVD because of anatomy Cardiovascular: Regular rate, Regular rhythm, No murmurs, Normal S1, Normal S2 Respiratory: Chest nontender, Rales, Decreased Air Movement. Negative for: No distress, CTA bilaterally Abdomen: Soft, Nontender, Nondistended, Normal bowel sounds Rectal: Deferred Extremities: Nontender, Edema - Pitting edema approximately 2 to 4 mm bilaterally Skin: Normal color, No rash, No Trauma. Negative for: Cyanosis, Diaphoresis, Jaundice Neurological: Alert, Oriented x3, Cranial nerves II-XII grossly intact, Normal Strength, Normal Sensation Diagnostic/Tx/Re-eval Chest X-Ray - ED: 1 View, Read by ED Physician, Normal, Bony Structures, CHF, - - Single portable upright view reveals borderline cardiomegaly, there is cephalization with curly B-lines consistent with congestive heart failure. There is no evidence of pneumothorax or pleural effusion. Patient also has chronic interstitial changes noted. 09/23/19 08:32 Chest 1 View (Portable) [RAD] Stat Laboratory Results 09/23/19 09/23/19 09/23/19 08:29 08:29 08:29 WBC 5.3 RBC 4.61 Hgb 13.6 Hct 42.6 MCV 92.4 MCH 29.5 MCHC 31.9 L RDW Std Deviation 47.7 H RDW Coeff of Maggie 14.1 Plt Count 190 MPV 9.5 Immature Gran % (Auto) 0.200 Neut % (Auto) 64.6 Lymph % (Auto) 22.7 [place] % (Auto) 10.0 Eos % (Auto) 1.9 Baso % (Auto) 0.6 Absolute Neuts (auto) 3.4 Absolute Lymphs (auto) 1.20 Nucleated RBC % 0 PT 12.3 INR 0.9 APTT 30.1 Specimen Type VBG pH VBG pO2 VBG O2 Sat (Calc) VBG O2 Content VBG Base Excess POC Mix VBG pCO2 Pt Tmp O2 Delivery Device Liter Flow Blood Gas Notified Whom Blood Gas Notified Time Sodium 141 Potassium 3.8 Chloride 108 H Carbon Dioxide 26.0 Anion Gap 7 BUN 16 Creatinine 1.03 Estim Creat Clear Calc 66.41 Est GFR (MDRD) Af Amer 92 Est GFR (MDRD) Non-Af 76 BUN/Creatinine Ratio 15.5 Glucose 113 H Lactic Acid Calcium 8.7 Troponin I 0.286 H B-Natriuretic Peptide POC Glucose 09/23/19 09/23/19 09/23/19 08:29 08:29 08:34 WBC RBC Hgb Hct MCV MCH MCHC RDW Std Deviation RDW Coeff of Maggie Plt Count MPV Immature Gran % (Auto) Neut % (Auto) Lymph % (Auto) [place] % (Auto) Eos % (Auto) Baso % (Auto) Absolute Neuts (auto) Absolute Lymphs (auto) Nucleated RBC % PT INR APTT Specimen Type ELYSE VBG pH 7.43 H VBG pO2 46 H VBG O2 Sat (Calc) 83 H VBG O2 Content 27 VBG Base Excess 1 POC Mix VBG pCO2 Pt Tmp 39.0 L O2 Delivery Device Nasal Can Liter Flow 2.0 Blood Gas Notified Whom ED MD Blood Gas Notified Time 830 Sodium Potassium Chloride Carbon Dioxide Anion Gap BUN Creatinine Estim Creat Clear Calc Est GFR (MDRD) Af Amer Est GFR (MDRD) Non-Af BUN/Creatinine Ratio Glucose Lactic Acid 1.5 Calcium Troponin I B-Natriuretic Peptide 552.2 H POC Glucose 09/23/19 08:39 WBC RBC Hgb Hct MCV MCH MCHC RDW Std Deviation RDW Coeff of Maggie Plt Count MPV Immature Gran % (Auto) Neut % (Auto) Lymph % (Auto) [place] % (Auto) Eos % (Auto) Baso % (Auto) Absolute Neuts (auto) Absolute Lymphs (auto) Nucleated RBC % PT INR APTT Specimen Type VBG pH VBG pO2 VBG O2 Sat (Calc) VBG O2 Content VBG Base Excess POC Mix VBG pCO2 Pt Tmp O2 Delivery Device Liter Flow Blood Gas Notified Whom Blood Gas Notified Time Sodium Potassium Chloride Carbon Dioxide Anion Gap BUN Creatinine Estim Creat Clear Calc Est GFR (MDRD) Af Amer Est GFR (MDRD) Non-Af BUN/Creatinine Ratio Glucose Lactic Acid Calcium Troponin I B-Natriuretic Peptide POC Glucose 111 H Patient normally has an elevated troponin. However this is multiples higher than his baseline. His BNP is also elevated 552. Page was placed to Dr. Waldo Lay stone and plate preparer apprentice for cardiology and the hospitalist for admission to CCU - Rhythm Strip Rhythm Strip: Sinus Rhythm Rate: 95 Ectopy: None - EKG Initial EKG Interpretation: Sinus Rhythm - Sinus rhythm with a ventricular rate of 97. MO interval is 152 ms. QRS duration 106 ms. QT duration 376 ms. [place] to left. There is an intraventricular conduction delay suggestive of a left bundle branch block, incomplete. Computer is reading ST-T wave abnormality. This represents partially artifact. - Medical Decision Making Patient presents with shortness of breath and chest discomfort. Based on past medical history need to evaluate for cardiac ischemia, congestive heart failure, exacerbation of COPD with pneumonia. Work-up was initiated and included EKG, portable chest x-ray, appropriate blood work. VBG was obtained to assess for CO2 retention. Portable chest x-ray reveals congestive heart failure as etiology of his dyspnea. And since he is clinically fluid overloaded will administer 80 mg of Lasix since his normal dose is 40 mg twice daily and was started on nitroglycerin drip for preload reduction as well as treat his chest discomfort. VBG reveals a pH 7.425, PCO2 of 39, PO2 of 46, base excess of 1, bicarb of 25.6 and saturation of 83%. There is no acute acid-base disturbance and CO2 is normal. - Critical Care Time Critical care time (excluding procedures): 30-74 minutes - Care time 34 minutes. This includes history and physical, documentation, care for patient., Discussing w/Patient &/or Family/Cath Lab, Discussing w/Consultants, Arranging Admission or Transfer - CC Time 32 minutes: Includes H7P, Documentation, interpretation of Cxr and lab results. ED Disposition - Plan for ED Patient: Disposition: Acute Care Hospital [facility] Diagnosis: Unstable angina, Acute exacerbation of congestive heart failure Referrals: Juan De La Vega III, MD [Primary Care Provider] - Waldo Lay MD [STAFF PHYSICIAN] -
--- NOTE | 2019-09-23 08:32 | RAD_ITS ---
EXAM DESCRIPTION: PORTABLE AP CHEST CLINICAL HISTORY: 69 years Male, increased SOB for 2 days; h/o heart failure increased SOB for 2 days; h/o heart failure COMPARISON: Previous chest obtained on 08/09/2019 FINDINGS: A left cardiac pacemaker is noted in place. Sternotomy since they''re also seen. The rest of the thorax is intact. The heart and mediastinum appear to be within normal limits. The lungs appear to be well areated without evidence of pneumonic consolidation or pleural effusion. RAD/Chest 1 View (Portable) IMPRESSION: No acute pathology Electronically Signed: Richard Perez, at 14:39 EST Tel , Service support ,
[2019-09-23 08:37] LABS: Absolute Neutrophil Count 3.4 X10^3/uL (2.0-7.7); Basophil# 0.03 X10^3/uL; Basophil% 0.6 % (0-1); Eosinophils% 1.9 % (0-5); Hematocrit 42.6 % (40-54); Hemoglobin 13.6 g/dL (13.0-16.5); Lymphocyte % 22.7 % (19-41); Mean Corp Hgb Conc 31.9 g/dL (32-36); Mean Corpuscular Hgb 29.5 pg (27.0-32.0); Mean Corpuscular Volume 92.4 fL (80-94); Mean Platelet Vol. 9.5 fl (6.2-12.0); Monocyte# 0.53 X10^3/uL; NRBC Flagged by Analyzer 0 % (0-5); Neutrophil # 3.42 X10^3/uL (2.7-7.7); Neutrophil % 64.6 % (47-70); Platelet Count 190 K/mm3 (150-450); RBC Distribution Width CV 14.1 % (11.6-14.6); RBC Distribution Width SD 47.7 fl (35.1-43.9); Red Blood Count 4.61 M/mm3 (4.6-6.2); White Blood Count 5.3 K/mm3 (4.4-11.0)
[2019-09-23 08:41] LABS: Blood Gas Specimen Type VEN; O2 Delivery Device Nasal Can; Time Given 830; VBG BASE EXCESS 1 mmol/L (-1.0-3.5); VBG Bicarbonate 26 mmol/L (22-26); VBG Oxygen Content 27 mmol/L (23-33); VBG PO2 46 mmHg (25-40); VBG SO2 83 % (50-70); VBG pH 7.43 (7.32-7.42)
[2019-09-23 08:47] LABS: International Normalized Ratio 0.9; Prothrombin Time (Protime)PT. 12.3 SECONDS (11.7-14.9)
[2019-09-23 08:48] LABS: Partial Thromboplast Time 30.1 Seconds (24.1-36.2)
[2019-09-23 08:51] LABS: Bedside Glucose 111 mg/dL (70-110)
[2019-09-23 08:55] LABS: Anion Gap 7 (5-15); BUN 16 mg/dL (7-18); BUN/Creat Ratio 15.5 RATIO (10-20); Calcium,Total 8.7 mg/dL (8.5-10.1); Chloride 108 mmol/L (98-107); Creatinine, Serum 1.03 mg/dL (0.70-1.30); EST Glomerular Filtration Rate 76 mL/min (>60); Est Glom Filt Rate - Afr Amer 92 mL/min (>60); Estimated Creatinine Clearance 66.41 ml/min; Glucose 113 mg/dL (74-106); Potassium 3.8 mmol/L (3.5-5.1); Sodium Level 141 mmol/L (136-145)
[2019-09-23 09:05] LABS: BNP,B-Type NATRIURETIC PEPTIDE 552.2 pg/mL (0-100)
[2019-09-23 09:12] LABS: Lactic Acid 1.5 mmol/L (0.4-1.9)
--- NOTE | 2019-09-23 09:29 | HP.PCM_ITS ---
Problem List (1) COPD exacerbation Status: Acute (2) Unstable angina Status: Acute (3) History of left heart catheterization Status: Chronic Comment: LVEF: by LV gram 15-20 %; [place] Multivessel CAD; Occluded [place] mid LAD. Occluded [place] proximal RCA. Occluded SVG to DIAG. Occluded SVG to RCA. Occluded HUMPHREY to LAD. Severe 85% stenosis in last remaining vessel of SVG to LCX with widely patent SVG stents. Severe LV dysfunction. Referred for immediate PCI: Will tx to [facility] for high risk PCI to last remaining vessel of SVG to OM. 06/29/19 per DJN @ [facility] (4) Hypoxia, sleep related Status: Chronic (5) Coarse tremors Status: Chronic (6) Headache Status: Chronic (7) ARIADNA (obstructive sleep apnea) Status: Suspected (8) COPD (chronic obstructive pulmonary disease) Status: Chronic Qualifiers: (9) Obesity (BMI 30.0-34.9) Status: Chronic (10) Nicotine dependence Status: Chronic Qualifiers: Nicotine product type: other Substance use status: in remission Qualified Code(s): F17.291 - Nicotine dependence, other tobacco product, in remission (11) Gout Status: Chronic (12) Degenerative cervical disc Status: Chronic (13) Chronic back pain Status: Chronic Qualifiers: Back pain location: back pain in unspecified location Back pain laterality: unspecified Qualified Code(s): M54.9 - Dorsalgia, unspecified; G89.29 - Other chronic pain (14) Presence of automatic implantable cardioverter-defibrillator Status: Chronic (15) H/O coronary artery bypass surgery Status: Chronic Comment: HUMPHREY-LAD, SVG-D1, SVG-OM (16) Chronic renal failure, stage 3 (moderate) Status: Chronic (17) Chronic systolic (congestive) heart failure Status: Chronic (18) Stented coronary artery Status: Chronic Comment: has had 7 stents as of 06/15/17 (19) Ischemic cardiomyopathy Status: Chronic Comment: 25% ejection fraction in November 2016 (20) V-tach Status: Chronic Comment: has an AICD (21) Benign essential hypertension Status: Chronic (22) Gastroesophageal reflux disease Status: Chronic Qualifiers: Esophagitis presence: esophagitis presence not specified (23) Hyperlipidemia Status: Chronic Qualifiers: Hyperlipidemia type: unspecified Qualified Code(s): E78.5 - Hyperlipidemia, unspecified (24) Type 2 diabetes mellitus Status: Chronic Qualifiers: Diabetes mellitus keno terminal operator insulin use: without keno terminal operator use Diabetes mellitus complication status: with other specified complication Qualified Code(s): E11.69 - Type 2 diabetes mellitus with other specified complication (25) Morbid obesity Status: Chronic (26) CAD (coronary artery disease) Status: Chronic Qualifiers: Coronary Disease-Associated Artery/Lesion type: unspecified vessel or lesion type [place] vs. transplanted heart: unspecified whether [place] or transplanted heart Associated angina: angina presence unspecified Qualified Code(s): I25.10 - Atherosclerotic heart disease of [place] coronary artery without angina pectoris History of Present Illness Date of Admission: 09/23/19 Chief Complaint: Shortness of breath for 1 week The patient is a 69 year old M with multiple comorbidities including coronary artery status post CABG and chronic combined heart failure, EF 2025% in June 2019 status post AICD for V. tach came to ER for shortness of breath, progressively worsening for 1 week. Patient also has worsening of cough which is mainly dry along with wheezing. Mild increase in ankle edema. Patient denies any fever, sinus congestion or sore throat. Patient complain of chest tightness/pressure that started yesterday morning at rest and is still persist. In ED, blood pressure 120/62, pulse ox 93% on room air, respiratory rate 25/min. Started on nitro drip and given Lasix 80 mg IV and transferred to ICU. Chest x-ray independently reviewed and shows chronic interstitial changes but I do not appreciate pulmonary edema. BNP 1951 but it will be chronically elevated with EF 20 to 25% increase dilated LV. Past Medical History Past Medical History (Chronic Problems): Chronic Problems (Last Reviewed 12/24/18 @ 14:09 by Marlene Robles NP-C) History of left heart catheterization (Chronic 06/29/19) LVEF: by LV gram 15-20 %; [place] Multivessel CAD; Occluded [place] mid LAD. Occluded [place] proximal RCA. Occluded SVG to DIAG. Occluded SVG to RCA. Occluded HUMPHREY to LAD. Severe 85% stenosis in last remaining vessel of SVG to LCX with widely patent SVG stents. Severe LV dysfunction. Referred for immediate PCI: Will tx to [facility] for high risk PCI to last remaining vessel of SVG to OM. 06/29/19 per DANA @ [facility] Hypoxia, sleep related (Chronic) Coarse tremors (Chronic) Headache (Chronic) COPD (chronic obstructive pulmonary disease) (Chronic) Obesity (BMI 30.0-34.9) (Chronic) Nicotine dependence (Chronic) Gout (Chronic) Degenerative cervical disc (Chronic) Chronic back pain (Chronic) Presence of automatic implantable cardioverter-defibrillator (Chronic) H/O coronary artery bypass surgery (Chronic ~2008) HUMPHREY-LAD, SVG-D1, SVG-OM Chronic renal failure, stage 3 (moderate) (Chronic) Chronic systolic (congestive) heart failure (Chronic) Stented coronary artery (Chronic ~12/2016) has had 7 stents as of 06/15/17 Ischemic cardiomyopathy (Chronic) 25% ejection fraction in November 2016 V-tach (Chronic) has an AICD Benign essential hypertension (Chronic) Gastroesophageal reflux disease (Chronic) Hyperlipidemia (Chronic) Type 2 diabetes mellitus (Chronic) Morbid obesity (Chronic) CAD (coronary artery disease) (Chronic) Medical History: Medical History (Last Reviewed 12/24/18 @ 14:09 by Marlene Robles NP-C) Nicotine dependence (Chronic) F17.200 Gout (Chronic) M10.9 Degenerative cervical disc (Chronic) M50.30 Chronic back pain (Chronic) M54.9, G89.29 Chronic renal failure, stage 3 (moderate) (Chronic) N18.3 Chronic systolic (congestive) heart failure (Chronic) I50.22 Ischemic cardiomyopathy (Chronic) I25.5 25% ejection fraction in November 2016 V-tach (Chronic) I47.2 has an AICD Benign essential hypertension (Chronic) I10 Gastroesophageal reflux disease (Chronic) K21.9 Hyperlipidemia (Chronic) E78.5 Type 2 diabetes mellitus (Chronic) E11.9 Morbid obesity (Chronic) E66.01 CAD (coronary artery disease) (Chronic) I25.10 Tubular adenoma of colon (Inactive) D12.6 Allergies chlorpromazine HCl [From Thorazine] Allergy (Severe, Verified 09/07/19 14:56) Hives PER PATIENT tramadol HCl [From Ultram] Allergy (Severe, Verified 09/07/19 14:56) Hives PER PATIENT codeine Allergy (Intermediate, Verified 09/07/19 14:56) Hives atorvastatin Adverse Reaction (Intermediate, Verified 09/07/19 14:56) Other LEG PAIN/CRAMPS cyclobenzaprine [From Flexeril] Adverse Reaction (Verified 09/07/19 14:56) Upset Stomach metformin Adverse Reaction (Verified 09/07/19 14:56) Upset Stomach naproxen Adverse Reaction (Verified 09/07/19 14:56) Upset Stomach promethazine [From Phenergan] Adverse Reaction (Verified 09/07/19 14:56) Other CONFUSION Home Medications: Ambulatory Orders Medication Instructions Recorded Isosorbide Mononitrate [Imdur] 30 mg PO DAILY 02/18/17 Albuterol Aerosols [Ventolin 2.5 mg INHALATION Q4H PRN PRN 02/23/17 Aerosols] Pantoprazole Sodium [Protonix] 40 mg PO DAILY 11/15/17 Lisinopril [Zestril] 2.5 mg PO DAILY 05/21/18 Rosuvastatin Calcium [Crestor] 40 mg PO DAILY 06/16/18 Clopidogrel Bisulfate [Plavix] 75 mg PO DAILY 09/01/18 Allopurinol 300 mg PO DAILY 09/20/18 Nitroglycerin 0.4 mg SL PRN PRN 12/01/18 Nicotine [Nicoderm Cq] 21 mg TRANSDERM. DAILY patch 12/03/18 Aspirin [Aspir 81] 81 mg PO DAILY #1 tablet. 01/21/19 Albuterol Inhaler [Ventolin Hfa] 2 puff INHALATION Q4H PRN PRN 02/24/19 Oxycodone HCl/Acetaminophen 1 tab PO Q6H PRN 05/02/19 [Oxycodon-Acetaminophen 7.5-325] furosemide 40 mg tablet 40 mg PO DAILY #90 tab 06/27/19 Metoprolol Tartrate 25 mg PO BID #60 tab 07/06/19 Surgical History: Surgical History (Last Updated 06/29/19 @ 14:39 by Carmen Gray) History of left heart catheterization (Chronic) Onset Date: 06/29/19 Z98.890 LVEF: by LV gram 15-20 %; [place] Multivessel CAD; Occluded [place] mid LAD. Occluded [place] proximal RCA. Occluded SVG to DIAG. Occluded SVG to RCA. Occluded HUMPHREY to LAD. Severe 85% stenosis in last remaining vessel of SVG to LCX with widely patent SVG stents. Severe LV dysfunction. Referred for immediate PCI: Will tx to [facility] for high risk PCI to last remaining vessel of SVG to OM. 12/04/19 per DANA @ [facility] Presence of automatic implantable cardioverter-defibrillator (Chronic) Z95.810 H/O coronary artery bypass surgery (Chronic) Onset Date: ~2008 Z95.1 HUMPHREY-LAD, SVG-D1, SVG-OM Stented coronary artery (Chronic) Onset Date: ~12/2016 has had 7 stents as of 06/15/17 Hx of hernia repair (Inactive) Z98.890, Z87.19 Previous back surgery (Inactive) Z98.890 Surgical History: angioplasty - stents x10, coronary bypass surgery, - - AICD placement, back surgery x 2, hernia repair Psychiatric History: No pertinent psych hx Smoking Status: Current every day smoker Tobacco Use: Cigarettes - *Family History Paternal Family History: Family History (Last Reviewed 07/05/19 @ 16:09 by TISH Kerns) Brother CAD (coronary artery disease) Myocardial infarction Sudden cardiac Mother Cancer Hypertension Father Cancer COPD (chronic obstructive pulmonary disease) History Items: Cancer, Heart Disease Maternal Family History: Family History (Last Reviewed 07/05/19 @ 16:09 by TISH Kerns) Brother CAD (coronary artery disease) Myocardial infarction Sudden cardiac Mother Cancer Hypertension Father Cancer COPD (chronic obstructive pulmonary disease) History Items: - - Patient notes a paternal family history of chronic lung disease, lung cancer with history of tobacco use. Review of Systems Constitutional: Reports: Weakness. Denies: Chills, Fever, Weight Change HEENT: Denies: Head Aches, Sinus Congestion, Sinus Drainage Cardiovascular: Reports: Chest Pain, Chest Pressure. Denies: Palpitations Respiratory: Reports: Cough, Shortness of Breath, Shortness of breath at rest, Shortness of breath upon exertion, Wheezing. Denies: Hemoptysis, Pleuritic Pain, Sputum production Gastrointestinal: Denies: Abdominal Pain, Nausea, Vomiting Genitourinary: Denies: Dysuria Musculoskeletal: Reports: Back Pain, Joint Pain. Denies: Joint Tenderness Skin: Denies: Rash, Wounds Neurological: Reports: Balance problems. Denies: Focal weakness, Numbness, Tingling Psychiatric: Denies: Anxiety, Depression, Homicidal Ideations, Suicidal Ideations Hematologic/ Lymphatic: Denies: Easy Bruising, Easy Bleeding VTE Information - Inpt Only VTE Present on Admission: No VTE Mechan Device Prophylaxis: None VTE Pharm Prophylaxis ordered?: Yes Patient Problems: Active and Suspected Problems (Last Reviewed 12/24/18 @ 14:09 by TISH Blankenship) Unstable angina (Acute) COPD exacerbation (Acute) - Physical Exam Vitals/I&O's: Vital Signs Temp Pulse Resp BP Pulse Ox 98.3 F 89 25 H 120/62 93 09/23/19 08:46 09/23/19 08:46 09/23/19 08:46 09/23/19 08:46 09/23/19 08:46 Oxygen Flow Rate (L/min) 2 Oxygen Delivery Method Nasal Cannula Weight: 224 lb 13.944 oz Body Mass Index (BMI) 34.2 Finger Stick Blood Glucose 111 General: Alert, Oriented x3, Cooperative HEENT: Atraumatic, PERRLA, EOMI, Normocephalic Oral: No Gingival or Mucosal Lesions/ Ulcerations, Dry Mucosa Neck: Supple, No JVD, Negative Carotid Bruits Lungs: Diminished - Air entry diminished in all lung bui., Rhonchi - Expir atory rhonchi and wheezing present, Short of Breath, Wheezes Cardiovascular: Regular rate, Regular Rhythm, Normal S1, Normal S2, No murmurs, - - Low pitched, faint heart sound. AICD left subclavicular region. Abdomen: Bowel Sounds Present, Soft, Non Tender, Non-Distended Extremities: Capillary Refill Less than 3 Seconds, Edema Skin: No rashes, No breakdown Musculoskeletal: No Tenderness to Palpation of Joints or Extremities, Arthritic Changes Neurological: Cranial nerves II-XII grossly intact, Deep Tendon Reflexes 2+/4 and Symmetrical, Neuro grossly intact Psych/Mental Status: Normal Affect, Appropriate Laboratory Results 09/23/19 08:29: WBC 5.3, RBC 4.61, Hgb 13.6, Hct 42.6, MCV 92.4, MCH 29.5, MCHC 31.9 L, RDW Std Deviation 47.7 H, RDW Coeff of Maggie 14.1, Plt Count 190, MPV 9.5, Immature Gran % (Auto) 0.200, Neut % (Auto) 64.6, Lymph % (Auto) 22.7, [place] % (Auto) 10.0, Eos % (Auto) 1.9, Baso % (Auto) 0.6, Absolute Neuts (auto) 3.4, A bsolute Lymphs (auto) 1.20, Nucleated RBC % 0 09/23/19 08:29: PT 12.3, INR 0.9, APTT 30.1 09/23/19 08:29: Sodium 141, Potassium 3.8, Chloride 108 H, Carbon Dioxide 26.0, Anion Gap 7, BUN 16, Creatinine 1.03, Estim Creat Clear Calc 66.41, Est GFR (MDRD) Af Amer 92, Est GFR (MDRD) Non-Af 76, BUN/Creatinine Ratio 15.5, Glucose 113 H, Calcium 8.7, Troponin I 0.286 H 09/23/19 08:29: Lactic Acid 1.5 09/23/19 08:29: B-Natriuretic Peptide 552.2 H 09/23/19 08:34: Specimen Type ELYSE, VBG pH 7.43 H, VBG pO2 46 H, VBG O2 Sat (Calc) 83 H, VBG O2 Content 27, VBG Base Excess 1, POC Mix VBG pCO2 Pt Tmp 39.0 L, O2 Delivery Device Nasal Can, Liter Flow 2.0, Blood Gas Notified Whom ED MD, Blood Gas Notified Time 830 09/23/19 08:39: POC Glucose 111 H Current Medications Nitroglycerin/Dextrose () 250 mls @ 6 mls/hr CONT INF .[id number] [facility]; Protocol Assessment/Plan All Active Problems (Last Reviewed 12/24/18 @ 14:09 by Marlene Robles NP-C) Unstable angina (Acute) COPD exacerbation (Acute) COPD exacerbation (Resolved) Cardiac enzymes elevated (Resolved) The patient is a 69 year old M with multiple comorbidities including coronary artery status post CABG and chronic combined heart failure, EF 2025% in June 2019 status post AICD for V. tach came to ER for shortness of breath, progressively worsening for 1 week. Patient also has worsening of cough which is mainly dry along with wheezing. Mild increase in ankle edema. Patient denies any fever, sinus congestion or sore throat. Patient complain of chest tightness/pressure that started yesterday morning at rest and is still persist. In ED, blood pressure 120/62, pulse ox 93% on room air, respiratory rate 25/min. Started on nitro drip and given Lasix 80 mg IV and transferred to ICU. Chest x-ray independently reviewed and shows chronic interstitial changes but I do not appreciate pulmonary edema. BNP 1951 but it will be chronically elevated with EF 20 to 25% increase dilated LV. 1. Atypical chest pain, possible non-STEMI: Patient is being admitted in ICU on nitro drip. Serial troponin enzymes. One Piece Expansion Maker Hand consulted. Repeat EKG. Patient had echo in June 2019 which is as mentioned below. We will leave that decision on repeat echo on technical communicator. Continue aspirin and Plavix. Patient had CABG done with last cardiac cath in June 2019 and had PCI in [facility]. Obtain medical records from [facility]. As per last cath, severe anterior hypokinesis with depressed LV systolic function. Distal circumflex 75% stenosis. All grafts were totally occluded except SVG to circumflex. Collateral flow from left to left. 2. Acute on chronic combined heart failure status post AICD (leg edema, dyspnea on exertion): Patient had Lasix will continue it. Monitor as per CHF core measures including intake and output, daily weight, fluid restriction. On beta- vimal and lisinopril. 3. COPD exacerbation: On bronchodilator, IV Solu-Medrol, incentive spirometry and chest physiotherapy. Respiratory panel ordered. Chest x-ray does not show pneumonic consolidation or infiltrate. Lactic acid not elevated. Patient states he is not on home oxygen. 4. Diabetes mellitus type 2: Accu-Chek ACHS coverage Humalog sliding scale. Glucose is controlled. 5. Hypertension and dyslipidemia: Blood pressure is on lower side. Fasting profile ordered for tomorrow a.m. Patient is on Crestor 40 mg daily. Other comorbidities include morbid obesity, obstructive sleep apnea, CKD stage III, chronic back pain with degenerative cervical disc: Multiple comorbidities complicates the present care and expect difficult and delay recovery. Patient put on Duragesic 25 mcg patch every 72 hourly DVT prophylaxis: Lovenox 40 mg of daily Advance directive/MOLST: CODE STATUS: Patient does not have living will/advanced directive in place. This was suggested by his technical communicator long time ago. When asked directly about different options, he wants full code meaning thereby CPR, intubation, ventilator treatment, DC shocks, artificial tube feeding, central line insertion and vasopressor if needed. Full code. Total time spent in [id number] encounter in discussion of advanced directive 16 minutes. Echo in June 2019 Interpretation Summary Severely dilated left ventricle. The estimated ejection fraction is 20-25 %. Stage 2 diastolic dysfunction. There are regional wall motion abnormalities as specified. Mild (1+) mitral valve insufficiency. Unable to estimate RV systolic pressure due to insufficient tricuspid regurgitant envelope. Compared to echo report dated 10/08/2018, LV function has decreased from 35% to 20-25% with new lateral hypokinesis. The study was technically difficult. Contrast injection was performed. Cardiac cath in June 2019 DOMINANCE: Right Dominant LEFT HEART ASSESSMENT Left Ventricular Ejection Fraction: by LV Gram 15-20 % Anterior Hypokinesis - Severe Depressed Left Ventricular systolic function LVEDP: 7 mmHg LEFT MAIN: Mild luminal irregularities less than 30% LEFT ANTERIOR DESCENDING ARTERY: MID LAD: is occluded CIRCUMFLEX ARTERY: DISTAL CIRC: 75 % Stenosis RIGHT CORONARY ARTERY: is occluded GRAFTS: HUMPHREY graft to the LAD is totally occluded Saphenous Vein graft to the RCA is totally occluded Saphenous Vein graft to the 1st Diagonal is totally occluded Saphenous Vein graft to the CIRC has a proximal lesion of 85 %, with widely patent SVG stents. COLLATERAL FLOW: Collateral flow from Left to Left Code Visit Inpatient E&M: 05090 Init Hosp L3 Procedures: 50793 Advncd Care Plan 30 Min
[2019-09-23] MEDS: Furosemide 100 MG/10 ML Vial 80 MG IV (09:40)
[2019-09-23] MEDS: HYDROcodone Bitartrate/Apap 5/325 Tablet PO (09:44)
[2019-09-23] MEDS: Nitroglycerin Infusion 250 ML 6 MG CONT INF (09:44)
[2019-09-23] MEDS: Aspirin 81 MG TAB.CHEW 324 MG PO (11:35)
--- NOTE | 2019-09-23 11:56 | CON.PCM_ITS ---
<Richard Park - Last Filed: 09/23/19 12:29> Reason for Consult Date of Consultation: 09/23/19 Reason for Consultation: CHF, Chest pain History of Present Illness: The patient is a 69 year old M who presented to [facility] Emergency Department on 09/23/2019 for worsening shortness of breath and chest pain. He has a past medical history of coronary artery disease status post coronary artery bypass in 2008 with HUMPHREY to LAD, SVG diagonal 1, and SVG to OM, multiple coronary artery stent placement, ischemic cardiomyopathy, ventricular tachycardia, status post ICD, hypertension, hyperlipidemia, diabetes mellitus type 2, obesity, and tobacco abuse. Patient underwent laboratory evaluation in the Emergency Department that revealed a BNP of 552 and a troponin of 0.286. He underwent chest x-ray that was concerning for congestive heart failure. He was given Lasix 80 mg IV and admitted for further evaluation. Cardiology was consulted for further recommendation. Past Medical History Allergies/Adverse Reactions: Allergies chlorpromazine HCl [From Thorazine] Allergy (Severe, Verified 09/07/19 14:56) Hives PER PATIENT tramadol HCl [From Ultram] Allergy (Severe, Verified 09/07/19 14:56) Hives PER PATIENT codeine Allergy (Intermediate, Verified 09/07/19 14:56) Hives atorvastatin Adverse Reaction (Intermediate, Verified 09/07/19 14:56) Other LEG PAIN/CRAMPS cyclobenzaprine [From Flexeril] Adverse Reaction (Verified 09/07/19 14:56) Upset Stomach metformin Adverse Reaction (Verified 09/07/19 14:56) Upset Stomach naproxen Adverse Reaction (Verified 09/07/19 14:56) Upset Stomach promethazine [From Phenergan] Adverse Reaction (Verified 09/07/19 14:56) Other CONFUSION Home Medications: Ambulatory Orders Medication Instructions Recorded Isosorbide Mononitrate [Imdur] 30 mg PO DAILY 02/18/17 Albuterol Aerosols [Ventolin 2.5 mg INHALATION Q4H PRN PRN 02/23/17 Aerosols] Pantoprazole Sodium [Protonix] 40 mg PO DAILY 11/15/17 Lisinopril [Zestril] 2.5 mg PO DAILY 05/21/18 Rosuvastatin Calcium [Crestor] 40 mg PO DAILY 06/16/18 Clopidogrel Bisulfate [Plavix] 75 mg PO DAILY 09/01/18 Allopurinol 300 mg PO DAILY 09/20/18 Nitroglycerin 0.4 mg SL PRN PRN 12/01/18 Nicotine [Nicoderm Cq] 21 mg TRANSDERM. DAILY patch 12/03/18 Aspirin [Aspir 81] 81 mg PO DAILY #1 tablet. 01/21/19 Albuterol Inhaler [Ventolin Hfa] 2 puff INHALATION Q4H PRN PRN 02/24/19 Oxycodone HCl/Acetaminophen 1 tab PO Q6H PRN 05/02/19 [Oxycodon-Acetaminophen 7.5-325] furosemide 40 mg tablet 40 mg PO DAILY #90 tab 06/27/19 Metoprolol Tartrate 25 mg PO BID #60 tab 07/06/19 Past Medical History (Chronic Problems): Chronic Problems (Last Reviewed 12/24/18 @ 14:09 by Marlene Robles NP-C) History of left heart catheterization (Chronic 06/29/19) LVEF: by LV gram 15-20 %; [place] Multivessel CAD; Occluded [place] mid LAD. Occluded [place] proximal RCA. Occluded SVG to DIAG. Occluded SVG to RCA. Oc cluded HUMPHREY to LAD. Severe 85% stenosis in last remaining vessel of SVG to LCX with widely patent SVG stents. Severe LV dysfunction. Referred for immediate PCI: Will tx to [facility] for high risk PCI to last remaining vessel of SVG to OM. 06/29/19 per [facility] @ [facility] Hypoxia, sleep related (Chronic) Coarse tremors (Chronic) Headache (Chronic) COPD (chronic obstructive pulmonary disease) (Chronic) Obesity (BMI 30.0-34.9) (Chronic) Nicotine dependence (Chronic) Gout (Chronic) Degenerative cervical disc (Chronic) Chronic back pain (Chronic) Presence of automatic implantable cardioverter-defibrillator (Chronic) H/O coronary artery bypass surgery (Chronic ~2008) HUMPHREY-LAD, SVG-D1, SVG-OM Chronic renal failure, stage 3 (moderate) (Chronic) Chronic systolic (congestive) heart failure (Chronic) Stented coronary artery (Chronic ~12/2016) has had 7 stents as of 06/15/17 Ischemic cardiomyopathy (Chronic) 25% ejection fraction in November 2016 V-tach (Chronic) has an AICD Benign essential hypertension (Chronic) Gastroesophageal reflux disease (Chronic) Hyperlipidemia (Chronic) Type 2 diabetes mellitus (Chronic) Morbid obesity (Chronic) CAD (coronary artery disease) (Chronic) Surgical History: angioplasty - stents x10, coronary bypass surgery, - - AICD placement, back surgery x 2, hernia repair Psychiatric History: No pertinent psych hx - *Family History Paternal Family History: Family History (Last Reviewed 07/05/19 @ 16:09 by TISH Kerns) Brother CAD (coronary artery disease) Myocardial infarction Sudden cardiac Mother Cancer Hypertension Father Cancer COPD (chronic obstructive pulmonary disease) History Items: Cancer, Heart Disease Maternal Family History: Family History (Last Reviewed 07/05/19 @ 16:09 by TISH Kerns) Brother CAD (coronary artery disease) Myocardial infarction Sudden cardiac Mother Cancer Hypertension Father Cancer COPD (chronic obstructive pulmonary disease) History Items: - - Patient notes a paternal family history of chronic lung disease, lung cancer with history of tobacco use. Smoking Status: Current every day smoker Tobacco Use: Cigarettes Review of Systems - Review of Systems General: Reports: Fatigue. Denies: Fever Cardiovascular: Reports: Chest Discomfort, Chest Discomfort with Exertion, Chest Pressure, Shortness of Breath, Shortness of Breath at Rest, Shortness of Breath with Exertion, Orthopnea, Peripheral Edema. Denies: Chest Discomfort at Rest, Chest Tightness, Chest Heaviness, PND, Palpitations, Lightheadedness, Dizziness, Near Syncope, Syncope Respiratory: Reports: Cough Muscoloskeletal: Denies: Myalgias Skin: Denies: Rash Neurological: Denies: Dizziness, Vertigo Subjectve: Patient seen and evaluated. He continues to note shortness of breath. He acknowledges low back discomfort. He states improved chest pain. He denies any lightness, dizziness, presyncope, or palpitations. Objective: Vital Signs Temp Pulse Resp BP Pulse Ox 98.4 F 87 95 H 123/78 H 94 09/23/19 11:35 09/23/19 11:35 09/23/19 11:35 09/23/19 11:35 09/23/19 11:35 Oxygen Flow Rate (L/min) 2 Oxygen Delivery Method Nasal Cannula Weight: 224 lb 13.944 oz Body Mass Index (BMI) 34.2 Finger Stick Blood Glucose 111 General: Healthy Appearing, Awake, Alert, Oriented x 3, Cooperative, - - Uncomfortable HEENT: Atraumatic Neck: No JVD Lungs: Diminished Stone Bases, Inspiratory Wheezes-Left Cardiovascular: Regular Rhythm, Normal S1, Normal S2, No Murmurs, No Rubs, No Gallops Vascular: No Carotid Bruits Abdomen: Soft Extremities: No Cyanosis, No Clubbing, Normal Capillary Refill, Bilateral Edema +1 Musculoskeletal: No Erythema Skin: No Rashes Neurological: No Focal Motor or Sensory Deficit Psych/Mental Status: Appropriate, Normal Affect 09/23/19 08:29: WBC 5.3, RBC 4.61, Hgb 13.6, Hct 42.6, MCV 92.4, MCH 29.5, MCHC 31.9 L, Plt Count 190, MPV 9.5, Immature Gran % (Auto) 0.200, Neut % (Auto) 64.6, Lymph % (Auto) 22.7, Mason % (Auto) 10.0, Eos % (Auto) 1.9, Baso % (Auto) 0.6, Absolute Neuts (auto) 3.4, Nucleated RBC % 0 09/23/19 08:29: PT 12.3, INR 0.9, APTT 30.1 09/23/19 08:29: Sodium 141, Potassium 3.8, Chloride 108 H, Carbon Dioxide 26.0, Anion Gap 7, BUN 16, Creatinine 1.03, Est GFR (MDRD) Af Amer 92, Est GFR (MDRD) Non-Af 76, BUN/Creatinine Ratio 15.5, Glucose 113 H, Calcium 8.7, Troponin I 0.286 H 09/23/19 08:29: Lactic Acid 1.5 09/23/19 08:29: B-Natriuretic Peptide 552.2 H 09/23/19 08:34: VBG pH 7.43 H, VBG pO2 46 H, VBG O2 Sat (Calc) 83 H, VBG O2 Content 27, VBG Base Excess 1 Rhythm: EKG: ECHO: 06/29/2019 Interpretation Summary Severely dilated left ventricle. The estimated ejection fraction is 20-25 %. Stage 2 diastolic dysfunction. There are regional wall motion abnormalities as specified. Mild (1+) mitral valve insufficiency. Unable to estimate RV systolic pressure due to insufficient tricuspid regurgitant envelope. Compared to echo report dated 10/08/2018, LV function has decreased from 35% to 20-25% with new lateral hypokinesis. The study was technically difficult. Contrast injection was performed. Stress Test: Cardiac Cath: 06/29/2019 CONCLUSIONS LVEF: by LV gram 15-20 % [place] Multivessel CAD Occluded [place] mid LAD. Occluded [place] proximal RCA. Occluded SVG to DIAG Occluded SVG to RCA Occluded HU[place]HREY to LAD. Severe 85% stenosis in last remaining vessel of SVG to LCX with widely patent SVG stents. Severe LV dysfunction. RECOMMENDATIONS Referred for immediate PCI Will tx to [facility] for high risk PCI to last remaining vessel of SVG to OM. Management as per referring Career And Guidance Counselor 4Fr sheath sutured in place. CORONARY ANGIOGRAPHY DOMINANCE: Right Dominant LEFT HEART ASSESSMENT Left Ventricular Ejection Fraction: by LV Gram 15-20 % Anterior Hypokinesis - Severe Depressed Left Ventricular systolic function LVEDP: 7 mmHg LEFT MAIN: Mild luminal irregularities less than 30% LEFT ANTERIOR DESCENDING ARTERY: MID LAD: is occluded CIRCUMFLEX ARTERY: DISTAL CIRC: 75 % Stenosis RIGHT CORONARY ARTERY: is occluded GRAFTS: HUMPHREY graft to the LAD is totally occluded Saphenous Vein graft to the RCA is totally occluded Saphenous Vein graft to the 1st Diagonal is totally occluded Saphenous Vein graft to the CIRC has a proximal lesion of 85 %, with widely patent SVG stents. COLLATERAL FLOW: Collateral flow from Left to Left PCI: CT Surgery: Holter monitor: EPS: PPM: CXR: Chest CT Scan: Assessment/Plan 1. Atherosclerotic coronary artery disease patient underwent heart catheterization on 06/29/2019 that showed LVEF of 15-20%, multivessel coronary artery disease with occluded [place] mid LAD, occluded [place] proximal RCA, occluded SVG to diagonal, occluded SVG to RCA, and occluded HUMPHREY to LAD. There was severe 85% stenosis in last main vessel of SVG LCx with widely patent SVG stents. He was transferred to [facility] for high risk PCI of SVG to OM. These records are not available for review at this time and will be requested for further input. He states that he underwent stenting and blood vessel repair. Based on records and overall progress, further recommendation will be made. At this time, we will continue to trend troponin. His baseline troponin appears to be approximately 0.05-0.1. His troponin today was noted be 0.286. This may be result of fluid volume overload rather than acute event. He will continue with current medical therapy with adjustments as necessary. 2. Ischemic cardiomyopathy As noted above his heart catheterization June 2019 showed reduced ejection fraction 15-20%. He does present with symptoms consistent with congestive heart failure. BNP was noted be elevated at 552. He was given IV Lasix in the Emergency Department. Given his reduced ejection fraction, his BNP may be somewhat chronically elevated. He will continue with IV Lasix with routine laboratory screening to assess kidney function and electrolytes. He will continue with current medical therapy including metoprolol tartrate and lisinopril 2.5 mg. He will continue with IV nitroglycerin for now for afterload reduction. Depending on his overall progress, this can be transitioned to previous home nitrates medication and oral diuretic/Lasix. Depending on his overall progress, he may be a candidate for Entresto therapy, but would require 36-hour interruption of BEHZAD inhibitor. 3. Status post ICD It does not appear that he follows routinely with [facility] pacemaker clinic. He states it has been over 1 year since last evaluated. He denies any symptoms concerning for electrical abnormality. He was strongly urged to reestablish on an outpatient basis. 4. Hypertension Patient's blood pressure is well-controlled. We will continue to monitor. We will not make any medication regimen changes. 5. Tobacco abuse/COPD He does have a history of tobacco abuse and underlying COPD,. This may be contributing to his shortness of breath in conjunction to fluid volume overload. Patient's case was reviewed with Dr. Lay, who will also personally evaluate patient. Please see his dictation for further input and details. Thank you for allowing us to participate in the patients plan of care, if you have any questions please do not hesitate to call. This note was generated using a voice recognition system and there may be incorrect words, spelling or punctuation that were not noted when reviewing the office note prior to saving. <Waldo Lay - Last Filed: 09/23/19 16:59> Reason for Consult History of Present Illness: The patient is a 69 year old M [] Past Medical History - *Family History Paternal Family History: Family History (Last Reviewed 07/05/19 @ 16:09 by TISH Kerns) Brother CAD (coronary artery disease) Myocardial infarction Sudden cardiac Mother Cancer Hypertension Father Cancer COPD (chronic obstructive pulmonary disease) Maternal Family History: Family History (Last Reviewed 07/05/19 @ 16:09 by TISH Kerns) Brother CAD (coronary artery disease) Myocardial infarction Sudden cardiac Mother Cancer Hypertension Father Cancer COPD (chronic obstructive pulmonary disease) Objective: Vital Signs Temp Pulse Resp BP Pulse Ox 97.5 F L 88 16 112/72 98 09/23/19 11:46 09/23/19 15:29 09/23/19 15:29 09/23/19 12:04 09/23/19 15:29 Oxygen Flow Rate (L/min) 2 Oxygen Delivery Method Room Air Weight: 209 lb 7.026 oz Body Mass Index (BMI) 31.8 Finger Stick Blood Glucose 111 Intake and Output for Last 24 Hours 09/21/19 09/22/19 09/23/19 23:59 23:59 23:59 Intake Total Balance 09/23/19 08:29: WBC 5.3, RBC 4.61, Hgb 13.6, Hct 42.6, MCV 92.4, MCH 29.5, MCHC 31.9 L, Plt Count 190, MPV 9.5, Immature Gran % (Auto) 0.200, Neut % (Auto) 6 4.6, Lymph % (Auto) 22.7, Mason % (Auto) 10.0, Eos % (Auto) 1.9, Baso % (Auto) 0.6, Absolute Neuts (auto) 3.4, Nucleated RBC % 0 09/23/19 08:29: PT 12.3, INR 0.9, APTT 30.1 09/23/19 08:29: Sodium 141, Potassium 3.8, Chloride 108 H, Carbon Dioxide 26.0, Anion Gap 7, BUN 16, Creatinine 1.03, Est GFR (MDRD) Af Amer 92, Est GFR (MDRD) Non-Af 76, BUN/Creatinine Ratio 15.5, Glucose 113 H, Calcium 8.7, Troponin I 0.286 H 09/23/19 08:29: Lactic Acid 1.5 09/23/19 08:29: B-Natriuretic Peptide 552.2 H 09/23/19 08:29: Magnesium 1.9 09/23/19 08:29: Phosphorus 3.2 09/23/19 08:34: VBG pH 7.43 H, VBG pO2 46 H, VBG O2 Sat (Calc) 83 H, VBG O2 Content 27, VBG Base Excess 1 09/23/19 12:30: Urine Color Straw, Urine Clarity Clear, Urine pH 7.0, Ur Specific [place] 1.010, Urine Protein Negative, Urine Glucose (UA) Normal, Urine Ketones Negative, Urine Occult Blood Negative, Urine Nitrite Negative, Urine Bilirubin Negative, Urine Urobilinogen Normal, Ur Leukocyte Esterase Negative, Urine RBC 0 SEEN, Urine WBC 0 SEEN 09/23/19 14:33: Troponin I 0.317 H Rhythm: EKG: ECHO: Stress Test: Cardiac Cath: PCI: CT Surgery: Holter monitor: EPS: PPM: CXR: Chest CT Scan: Assessment/Plan Addendum: Date: 09/23/2019 The patient was independently evaluated / examined. The patient complained of worsening shortness of breath. He denied chest pain, palpitations, near syncope, or syncope. He states his ICD has not discharged. He was evaluated by the [facility] ED and found to have indeterminate troponin I levels, and elevated BTNP, and a CXR c/w CHF. He was placed in the ICU on medical therapy including diuresis therapy. He states he is breathing somewhat better at this time. His lungs demonstrated bilateral rales. His cardiovascular exam demonstrates a regular rhythm with a normal S1 and S2. His IC was checked and was not found to have discharged. It was reported as functioning appropriately. At the present time his concerns include a history of CAD, ischemic mediated cardiomyopathy, CHF (systolic: acute on chronic), s/p PCI, s/p CABG, s/p ICD, superimposed upon hyperlipidemia and hypertension. The plan will be to continue medical therapy and obtain a follow up echo/doppler to reevaluate the LV wall motion and systolic function. The patients case was discussed with Dr. Landeros and Richard Park CNP. This note was generated using a voice recognition system and there may be incorrect words, spelling or punctuation that were not noted when reviewing the office note prior to saving.
--- NOTE | 2019-09-23 12:29 | EKG12_ITS ---
Test Reason : AM EKG Blood Pressure : / mmHG Vent. Rate : 085 BPM Atrial Rate : 085 BPM P-R Int : 148 ms QRS Dur : 114 ms QT Int : 440 ms P-R-T Axes : 063 -10 167 degrees QTc Int : 523 ms Normal sinus rhythm Incomplete left bundle branch block ST & T wave abnormality, consider anterolateral ischemia Prolonged QT Abnormal ECG Confirmed by BERYL LUNDBERG, MICHELLE ([id number]), metropolitan editor HARINI STONE ([id number]) on 09/28/2019 1:52:08 PM Referred By: ZOË Confirmed By:MICHELLE CORDOBA MD
[2019-09-23 13:16] LABS: Bacteria 0 SEEN /hpf (None Seen); Mucous, Urine 0 SEEN /hpf (<or=2+); Red Blood Cells-Urine 0 SEEN /hpf (0-5); Squamous Epithelial Cells - UA 0 SEEN /hpf (0-5); White Blood Cells 0 SEEN /hpf (0-5)
[2019-09-23 13:17] LABS: Phosphorus 3.2 mg/dL (2.5-4.9)
[2019-09-23 13:18] LABS: Magnesium 1.9 mg/dL (1.6-2.6)
[2019-09-23 13:18] LABS: Color, Urine Straw (Yellow); Glucose, Dipstick Normal (Normal); Ketone-Dipstick Negative (Negative); Leukocyte Esterase-Dipstick Negative /ul (Negative); Nitrite-Dipstick Negative (Negative); Occult Blood-Urine Negative /ul (Negative); Protein-Dipstick Negative (Negative); Urine Bilirubin Dipstick Negative (Negative); Urine Clarity Clear (Clear); Urine Urobilinogen Normal (Normal)
[2019-09-23] MEDS: oxyCODONE 5 MG Tablet PO ×2 (14:30→21:19)
[2019-09-23] MEDS: Enoxaparin 40 MG/0.4 ML Syringe SC (14:53)
[2019-09-23] MEDS: guaiFENesin 1,200 MG Tablet 1200 MG PO ×2 (14:53→21:20)
[2019-09-23] MEDS: 0.9% Saline Lock 10 ML Syringe IV ×4 (14:54→22:29)
[2019-09-23 15:03] LABS: M R Staph aureus DNA By PCR Negative (Negative); Probe Check PASS; Specimen Processing Control PASS
[2019-09-23 15:26] LABS: Bedside Glucose 105 mg/dL (70-110)
[2019-09-23] MEDS: Ipratropium/Albuterol Sulfate 3 ML AMPUL.NEB INHALATION ×3 (15:29→23:17)
--- NOTE | 2019-09-23 15:59 | CHAPLAIN ---
Type of Pastoral Visit _x__ Initial Visit ___ Follow-up Visit ___ On-call Visit ___ General Patient Visit ___ Spiritual Assessment ___ Family Conference ___ Bereavement ___ Rapid Response ___ Code Blue ___ Other (describe below) Pastoral Care Referral From _x__ Patient ___ Family ___ Nurse ___ Physician ___ Irrigation Teacher ___ Ware Finisher ___ Other (describe below) Sacrament/Intervention _x__ Active listening ___ Anointing ___ Pentecostalism ___ Bereavement ___ Communion ___ Macrina exploration ___ ___ Life review ___ Prayer ___ Reconciliation ___ Sacrament of Sick _x__ Supportive presence ___ Wedding ___ Other (describe below) Pastoral Comments
[2019-09-23] MEDS: Furosemide 40 MG/4 ML Vial IV (18:08)
[2019-09-23 18:26] LABS: Bedside Glucose 137 mg/dL (70-110)
[2019-09-23] MEDS: Albuterol 2.5 MG/3 ML VIAL.NEB. INHALATION (21:00)
[2019-09-23] MEDS: Metoprolol Tartrate 25 MG Tablet PO (21:20)
[2019-09-23] MEDS: MELATONIN 3 MG TABLET PO (22:28)
[2019-09-23] MEDS: Insulin Lispro 100 UNIT/ML INSULN.PEN SC (22:29)
[2019-09-23 22:31] LABS: Bedside Glucose 185 mg/dL (70-110)
[2019-09-24] VITALS (32 sets, daily range): BP systolic 85–130; BP diastolic 46–78; PULSE 77–108; RESP 12–21; TEMP 36.6–37.1; O2SAT 88–96
[2019-09-24] MEDS: Ipratropium/Albuterol Sulfate 3 ML AMPUL.NEB INHALATION ×6 (03:09→23:26)
[2019-09-24] MEDS: oxyCODONE 5 MG Tablet PO (05:15)
[2019-09-24] MEDS: 0.9% Saline Lock 10 ML Syringe IV ×8 (05:16→22:37)
[2019-09-24 05:32] LABS: Absolute Neutrophil Count 5.7 X10^3/uL (2.0-7.7); Eosinophils% 1.6 % (0-5); Hematocrit 44.6 % (40-54); Hemoglobin 14.6 g/dL (13.0-16.5); Lymphocyte % 7.8 % (19-41); Mean Corp Hgb Conc 32.7 g/dL (32-36); Mean Corpuscular Hgb 29.4 pg (27.0-32.0); Mean Corpuscular Volume 89.9 fL (80-94); Mean Platelet Vol. 9.4 fl (6.2-12.0); Monocyte# 0.08 X10^3/uL; Monocyte% 1.2 % (0-10); NRBC Flagged by Analyzer 0 % (0-5); Neutrophil # 5.72 X10^3/uL (2.7-7.7); Neutrophil % 89.1 % (47-70); POSITIVE DIFFERENTIAL YES; POSITIVE MORPHOLOGY YES; Platelet Count 232 K/mm3 (150-450); RBC Distribution Width CV 14.1 % (11.6-14.6); RBC Distribution Width SD 45.7 fl (35.1-43.9); Red Blood Count 4.96 M/mm3 (4.6-6.2); White Blood Count 6.4 K/mm3 (4.4-11.0)
[2019-09-24 05:36] LABS: Differential Indicated SCAN CRITERIA MET
--- NOTE | 2019-09-24 05:55 | ECHOCS_ITS ---
Reason For Study: CHF Procedure This was a 2D Doppler, Color Flow transthoracic echocardiogram. The study was technically difficult. Contrast injection was performed. Exam performed portable in ICU/CCU. Left Ventricle Normal LV size. Severe segmental systolic dysfunction (see wall motion). The estimated ejection fraction is 15 %. There is evidence of diastolic dysfunction. Anterio-Basal: Hypokinetic. Lateral- Basal: Hypokinetic. Infero-Basal: Hypokinetic. Basal inferoseptal: Hypokinetic. Mid-Anterior : Akinetic. Mid-Lateral : Severely Hypokinetic. Mid-Posterior: Hypokinetic. Mid-Inferior: Hypokinetic. Mid-inferoseptal : Akinetic. Mid-anteroseptal : Akinetic. [place] : Akinetic. Right Ventricle Normal RV size. ICD or pacer leads identified within the right ventricle. Normal systolic function. Atria The left atrium is mildly enlarged. Normal right atrium. ICD or pacer leads identified within the right atrium. No doppler evidence for ASD. Mitral Valve There is no mitral annular calcification. Mild diffuse mitral valve thickening. Mild-Moderate (1-2+) mitral valve insufficiency. Tricuspid Valve Normal tricuspid valve. Trivial tricuspid valve insufficiency. Unable to estimate RV systolic pressure/pulmonary artery pressure due to technically difficult study. Aortic Valve Trisinus/trileaflet aortic valve. Mild diffuse aortic valve thickening. Mild focal aortic valve calcification. Pulmonic Valve The pulmonic valve is not well visualized. Great Vessels Normal sized aortic root. Pericardium/Pleural No pericardial effusion. Medication Diluted definity 5ml given slow IV push to enhance endocardial definition. MMode/2D Measurements & Calculations LVIDd: 5.4 cm IVSd: 1.4 cm Ao root diam: 3.4 cm LVIDs: 4.1 cm LVPWd: 1.3 cm RVDd: 3.0 cm FS: 23.9 % LAV(MOD-bp): 69.2 ml LVAd ap4: 48.5 cm2 LA A4 area: 21.7 cm2 LAV(MOD-bp) Indexed: 33.7 ml/m2 EDV(MOD-sp4): 210.2 ml LAV(MOD-sp2): 70.1 ml EDV(sp4-el): 221.7 ml LAV(MOD-sp4): 67.1 ml LA dimension(2D): 5.2 cm RA A4 area: 12.2 cm2 Time Measurements MV dec time: 0.09 sec Doppler Measurements & Calculations MV E max neal: 109.3 cm/sec Lat Peak E' Neal: 4.7 cm/sec Med Peak E' Neal: 3.1 cm/sec MV A max neal: 133.7 cm/sec E/E' lat: 23.2 E/E' med: 35.3 MV E/A: 0.82 MV V2 max: 158.5 cm/sec MV P1/2t max neal: 94.9 cm/sec Ao V2 max: 161.0 cm/sec MV max P.1 mmHg MV P1/2t: 142.0 msec Ao max P.4 mmHg MV V2 mean: 84.3 cm/sec MV dec slope: 195.8 cm/sec2 Ao V2 mean: 125.0 cm/sec MV mean P.3 mmHg Ao mean P.6 mmHg MV V2 VTI: 34.0 cm MVA(P1/2t): 1.5 cm2 Ao V2 VTI: 32.1 cm LV V1 max: 112.1 cm/sec PA V2 max: 123.1 cm/sec LV V1 max P.0 mmHg Interpretation Summary The study was technically difficult. Contrast injection was performed. Severe segmental systolic dysfunction (see wall motion). The estimated ejection fraction is 15 %. The left atrium is mildly enlarged. Mild diffuse mitral valve thickening. Mild-Moderate (1-2+) mitral valve insufficiency. Trivial tricuspid valve insufficiency. Mild diffuse aortic valve thickening. Mild focal aortic valve calcification. Unable to estimate RV systolic pressure/pulmonary artery pressure due to technically difficult study. There is evidence of diastolic dysfunction. Ordering Physician: Waldo Lay Referring Physician: Juan De La Vega Performed By: Jeanette Park, KALINA, RVT
[2019-09-24 05:59] LABS: Anion Gap 10 (5-15); BUN 28 mg/dL (7-18); BUN/Creat Ratio 19.6 RATIO (10-20); Calcium,Total 9.1 mg/dL (8.5-10.1); Chloride 101 mmol/L (98-107); Cholesterol 189 mg/dL (200); Creatinine, Serum 1.43 mg/dL (0.70-1.30); EST Glomerular Filtration Rate 52 mL/min (>60); Est Glom Filt Rate - Afr Amer 63 mL/min (>60); Estimated Creatinine Clearance 47.83 ml/min; Glucose 176 mg/dL (74-106); High Density Lipoprotein 46 mg/dL; Phosphorus 3.1 mg/dL (2.5-4.9); Potassium 3.9 mmol/L (3.5-5.1); Sodium Level 137 mmol/L (136-145); Thyroid Stim Hormone (TSH) 0.24 uIU/mL (0.358-3.74); Triglycerides 294 mg/dL; Very Low Density Lipoprotein 59 mg/dL (5-40)
[2019-09-24 06:01] LABS: Atypical Lymphocyte RARE %; Differential Comment SCANNED; Platelet Estimate ADEQUATE (ADEQ)
--- NOTE | 2019-09-24 08:47 | PN_ITS ---
Patient Problems: Active and Suspected Problems (Last Reviewed 12/24/18 @ 14:09 by TISH Blankenship) Unstable angina (Acute) COPD exacerbation (Acute) Reason for Visit: CHF/COPD exacerbation, chest pain, non-STEMI Subjective: Seen and examined. Patient chest pain/pressure is resolved. Shortness of breath is improved. Patient complain of back pain and could not sleep last night secondary to hospital bed. Objective: Blood pressure is on the lower side, 102/70, 85/50. Vitals/I&O's: Vital Signs Temp Pulse Resp BP Pulse Ox 98 F 88 16 85/50 L 96 09/24/19 05:00 09/24/19 06:32 09/24/19 06:32 09/24/19 05:00 09/24/19 06:32 Oxygen Flow Rate (L/min) 2 Oxygen Delivery Method Room Air Weight: 202 lb 13.204 oz Body Mass Index (BMI) 31.8 Finger Stick Blood Glucose 111 Intake and Output for Last 24 Hours 09/22/19 09/23/19 09/24/19 23:59 23:59 23:59 Intake Total 550.1 / 575.1 75 / 75 Output Total 3800 / 3800 Balance -3249.9 / -3224.9 75 / 75 General: Alert, Oriented x3, Cooperative HEENT: Atraumatic, PERRLA, EOMI, Normocephalic Neck: Supple, No JVD, Negative Carotid Bruits Lungs: Diminished, Rhonchi - Expiratory rhonchi present Cardiovascular: Regular rate, Regular Rhythm, Normal S1, Normal S2, No murmurs, - - Muffled heart sound Abdomen: Bowel Sounds Present, Soft, Non Tender, Non-Distended Extremities: Capillary Refill Less than 3 Seconds, Edema Skin: No rashes, No breakdown Musculoskeletal: No Tenderness to Palpation of Joints or Extremities, Arthritic Changes Neurological: Cranial nerves II-XII grossly intact, Deep Tendon Reflexes 2+/4 and Symmetrical, Neuro grossly intact Psych/Mental Status: Normal Affect, Appropriate Laboratory Results 09/23/19 08:29: PT 12.3, INR 0.9, APTT 30.1 09/23/19 08:29: Sodium 141, Potassium 3.8, Chloride 108 H, Carbon Dioxide 26.0, Anion Gap 7, BUN 16, Creatinine 1.03, Estim Creat Clear Calc 66.41, Est GFR (MDRD) Af Amer 92, Est GFR (MDRD) Non-Af 76, BUN/Creatinine Ratio 15.5, Glucose 113 H, Calcium 8.7, Troponin I 0.286 H 09/23/19 08:29: Lactic Acid 1.5 09/23/19 08:29: B-Natriuretic Peptide 552.2 H 09/23/19 08:29: Magnesium 1.9 09/23/19 08:29: Phosphorus 3.2 09/23/19 08:39: POC Glucose 111 H 09/23/19 12:30: MRSA (PCR) Negative 09/23/19 12:30: Urine Color Straw, Urine Clarity Clear, Urine pH 7.0, Ur Specific [place] 1.010, Urine Protein Negative, Urine Glucose (UA) Normal, Urine Ketones Negative, Urine Occult Blood Negative, Urine Nitrite Negative, Urine Bilirubin Negative, Urine Urobilinogen Normal, Ur Leukocyte Esterase Negative, Urine RBC 0 SEEN, Urine WBC 0 SEEN, Ur Squamous Epith Cells 0 SEEN, Urine Bacteria 0 SEEN, Urine Mucus 0 SEEN 09/23/19 14:33: Troponin I 0.317 H 09/23/19 15:21: POC Glucose 105 09/23/19 16:35: Troponin I 0.290 H 09/23/19 17:58: POC Glucose 137 H 09/23/19 19:41: Troponin I 0.191 H 09/23/19 22:23: POC Glucose 185 H 09/24/19 05:28: WBC 6.4, RBC 4.96, Hgb 14.6, Hct 44.6, MCV 89.9, MCH 29.4, MCHC 32.7, RDW Std Deviation 45.7 H, RDW Coeff of Maggie 14.1, Plt Count 232, MPV 9.4, I mmature Gran % (Auto) 0.300, Neut % (Auto) 89.1 H, Lymph % (Auto) 7.8 L, [place] % (Auto) 1.2, Eos % (Auto) 1.6, Baso % (Auto) 0.0, Absolute Neuts (auto) 5.7, Absolute Lymphs (auto) 0.50 L, Nucleated RBC % 0, Differential Comment SCANNED, Atypical Lymphocytes RARE, Platelet Estimate ADEQUATE 09/24/19 05:28: Sodium 137, Potassium 3.9, Chloride 101, Carbon Dioxide 26.0, Anion Gap 10, BUN 28 H, Creatinine 1.43 H, Estim Creat Clear Calc 47.83, Est GFR (MDRD) Af Amer 63, Est GFR (MDRD) Non-Af 52 L, BUN/Creatinine Ratio 19.6, Glucose 176 H, Calcium 9.1, Phosphorus 3.1, Triglycerides 294 H, Cholesterol 189, LDL Cholesterol 84, VLDL Cholesterol 59 H, HDL Cholesterol 46, TSH 0.24 L Current Medications Acetaminophen (Tylenol) 650 mg PO Q6H PRN PRN PRN Reason: Pain Score 1-10/Temp > 100.7 F Albuterol Sulfate (Ventolin Aerosols) 2.5 mg INHALATION Q2H PRN PRN PRN Reason: SOB/Wheezing Last Admin: 09/23/19 21:00 Dose: 2.5 mg Documented by: Albuterol/Ipratropium (Duoneb) 3 ml INHALATION Q4H.RT [facility] Last Admin: 09/24/19 06:32 Dose: 3 ml Documented by: Allopurinol (Zyloprim) 300 mg PO DAILY@0800 [facility] Aspirin (Ecotrin) 81 mg PO DAILY@0800 [facility] Clopidogrel Bisulfate (Plavix) 75 mg PO DAILY [facility] Enoxaparin Sodium (Lovenox) 40 mg SC DAILY [facility] Last Admin: 09/23/19 14:53 Dose: 40 mg Documented by: Fentanyl (Duragesic Patch) 12 mcg TRANSDERM. Q3D [facility] Last Admin: 09/23/19 15:10 Dose: 12 mcg Documented by: Furosemide (Lasix) 40 mg IV BIDLX [facility] Last Admin: 09/23/19 18:08 Dose: 40 mg Documented by: Glucagon () 1 mg IM .X1 PRN PRN Reason: Hypoglycemia Guaifenesin (Mucinex) 1,200 mg PO BID [facility] Last Admin: 09/23/19 21:20 Dose: 1,200 mg Documented by: Sodium Chloride () 250 mls @ 15 mls/hr IV .[id number] PRN PRN Reason: Saline Flush Last Admin: 09/23/19 14:55 Dose: 15 mls/hr Documented by: Sodium Chloride () 250 mls @ 15 mls/hr IV .[id number] PRN PRN Reason: Additional IVPB Infusion Azithromycin 500 mg/ Dextrose 255 mls @ 250 mls/hr IV Q24 [facility] Stop: 09/25/19 11:02 Last Admin: 09/23/19 14:53 Dose: 250 mls/hr Documented by: Dextrose (Dextrose 10%-Water) 250 mls @ 999 mls/hr IV .Q16M PRN; Protocol PRN Reason: HYPOGLYCEMIA Insulin Human Lispro (Humalog Kwikpen (Bkc)) 0 unit SC ACHS [facility]; Protocol Last Admin: 09/23/19 22:29 Dose: 2 units Documented by: Lisinopril (Zestril) 2.5 mg PO DAILY [facility] Melatonin (Melatonin) 3 mg PO QHS PRN PRN PRN Reason: INSOMNIA Last Admin: 09/23/19 22:28 Dose: 3 mg Documented by: Methylprednisolone (Solu-Medrol) 40 mg IV Q8 [facility] Last Admin: 09/24/19 05:16 Dose: 40 mg Documented by: Metoprolol Tartrate (Lopressor (Beta Sina)) 25 mg PO BID [facility] Last Admin: 09/23/19 21:20 Dose: 25 mg Documented by: Morphine Sulfate () 2 mg IV Q3H PRN PRN PRN Reason: Pain Score 6-10/10 Nicotine (Nicoderm Cq (Pbkc)) 21 mg TRANSDERM. DAILY [facility] Last Admin: 09/23/19 14:53 Dose: 21 mg Documented by: Nitroglycerin (Nitrostat) 0.4 mg SUBLINGUAL Q5M PRN PRN Reason: CARDIAC/CHEST PAIN Oxycodone HCl (Oxyir) 5 mg PO Q4H PRN PRN PRN Reason: Pain Score 4-5/10 Last Admin: 09/24/19 05:15 Dose: 5 mg Documented by: Pantoprazole Sodium (Protonix) 40 mg PO DAILY [facility] Polyethylene Glycol (Miralax) 17 gm PO DAILY [facility] Prochlorperazine Edisylate (Compazine Iv) 5 mg IV Q4H PRN PRN PRN Reason: Breakthrough Nausea/Vomiting Psyllium Hydrophilic Mucilloid (Metamucil) 1 packet PO DAILY PRN PRN PRN Reason: Constipation Rosuvastatin Calcium (Crestor) 40 mg PO QHS [facility] Senna/Docusate Sodium (Senokot-S, Salima-Colace) 2 tablet PO BID PRN PRN Reason: Constipation Sodium Chloride () 10 - 40 ml IV UD PRN PRN Reason: SALINE FLUSH Last Admin: 09/24/19 05:16 Dose: 10 ml Documented by: Throat Lozenges (Cepacol Sore Throat Lozenge) 1 lozenge MUCOUS MEM Q2H PRN PRN PRN Reason: SORE THROAT STROKE Vital Signs/Narrative: Vital Signs Temp Pulse Resp BP Pulse Ox 09/24/19 06:32 88 16 96 09/24/19 05:00 98 F 78 14 85/50 L 90 Medical Necessity - Tobacco Use Smoking Status: Current every day smoker Tobacco Use: Cigarettes Assessment/Plan All Active Problems (Last Reviewed 12/24/18 @ 14:09 by ZORAN BlankenshipC) Unstable angina (Acute) COPD exacerbation (Acute) COPD exacerbation (Resolved) Cardiac enzymes elevated (Resolved) The patient is a 69 year old M with multiple comorbidities including coronary artery status post CABG and chronic combined heart failure, EF 2025% in June 2019 status post AICD for V. tach came to ER for shortness of breath, progressively worsening for 1 week. Patient also has worsening of cough which is mainly dry along with wheezing. Mild increase in ankle edema. Patient denies any fever, sinus congestion or sore throat. Patient complain of chest tightness/pressure that started yesterday morning at rest and is still persist. In ED, blood pressure 120/62, pulse ox 93% on room air, respiratory rate 25/min. Started on nitro drip and given Lasix 80 mg IV and transferred to ICU. Chest x-ray independently reviewed and shows chronic interstitial changes but I do not appreciate pulmonary edema. BNP 1951 but it will be chronically elevated with EF 20 to 25% increase dilated LV. 1. Atypical chest pain, possible non-STEMI;: Patient is being admitted in ICU on nitro drip. Serial troponin enzymes. Planing Machine Operator consulted. Repeat EKG. Patient had echo in June 2019 which is as mentioned below. We will leave that decision on repeat echo on program proposals coordinator. Continue aspirin and Plavix. Patient had CABG done with last cardiac cath in June 2019 and had PCI in [facility]. Obtain medical records from [facility]. As per last cath, severe anterior hypokinesis with depressed LV systolic function. Distal circumflex 75% stenosis. All grafts were totally occluded except SVG to circumflex. Collateral flow from left to left. : Chest pressure resolved and shortness of breath is improved. Shortness of breath. Troponins are elevated 0.286, 0.317 and 0.191. Lipid profile total cholesterol 294, LDL 84. TSH low at 0.24. Free T4 ordered. On guideline management for heart failure and non-STEMI. AICD was interrogated and was reported functioning appropriately. 2D echo is is just done. 2. Acute on chronic combined heart failure status post AICD (leg edema, dyspnea on exertion): Patient had Lasix will continue it. Monitor as per CHF core measures including intake and output, daily weight, fluid restriction. On beta- sina and lisinopril. 3. COPD exacerbation: On bronchodilator, IV Solu-Medrol, incentive spirometry and chest physiotherapy. Respiratory panel ordered. Chest x-ray does not show pneumonic consolidation or infiltrate. Lactic acid not elevated. Patient states he is not on home oxygen. : Respiratory panel is pending. Patient denies history of sleep apnea or CPAP but never had sleep study done. 4. Diabetes mellitus type 2: Accu-Chek ACHS coverage Humalog sliding scale. Glucose is controlled. 5. Hypertension and dyslipidemia: Blood pressure is on lower side. Fasting profile ordered for tomorrow a.m. Patient is on Crestor 40 mg daily. Other comorbidities include morbid obesity, obstructive sleep apnea, CKD stage III, chronic back pain with degenerative cervical disc: Multiple comorbidities complicates the present care and expect difficult and delay recovery. Patient put on Duragesic 25 mcg patch every 72 hourly DVT prophylaxis: Lovenox 40 mg daily Advance directive/MOLST: CODE STATUS: Patient does not have living will/advanced directive in place. This was suggested by his program proposals coordinator long time ago. When asked directly about different options, he wants full code meaning thereby CPR, intubation, ventilator treatment, DC shocks, artificial tube feeding, central line insertion and vasopressor if needed. Full code. Total time spent in [id number] encounter in discussion of advanced directive 16 minutes. Laboratory Results 09/23/19 14:33: Troponin I 0.317 H 09/23/19 15:21: POC Glucose 105 09/23/19 16:35: Troponin I 0.290 H 09/23/19 17:58: POC Glucose 137 H 09/23/19 19:41: Troponin I 0.191 H 09/23/19 22:23: POC Glucose 185 H 09/24/19 05:28: WBC 6.4, RBC 4.96, Hgb 14.6, Hct 44.6, MCV 89.9, MCH 29.4, MCHC 32.7, RDW Std Deviation 45.7 H, RDW Coeff of Maggie 14.1, Plt Count 232, MPV 9.4, Immature Gran % (Auto) 0.300, Neut % (Auto) 89.1 H, Lymph % (Auto) 7.8 L, [place] % (Auto) 1.2, Eos % (Auto) 1.6, Baso % (Auto) 0.0, Absolute Neuts (auto) 5.7, Absolute Lymphs (auto) 0.50 L, Nucleated RBC % 0, Differential Comment SCANNED, Atypical Lymphocytes RARE, Platelet Estimate ADEQUATE 09/24/19 05:28: Sodium 137, Potassium 3.9, Chloride 101, Carbon Dioxide 26.0, Anion Gap 10, BUN 28 H, Creatinine 1.43 H, Estim Creat Clear Calc 47.83, Est GFR (MDRD) Af Amer 63, Est GFR (MDRD) Non-Af 52 L, BUN/Creatinine Ratio 19.6, Glucose 176 H, Calcium 9.1, Phosphorus 3.1, Triglycerides 294 H, Cholesterol 189, LDL Cholesterol 84, VLDL Cholesterol 59 H, HDL Cholesterol 46, TSH 0.24 L Echo in June 2019 Interpretation Summary Severely dilated left ventricle. The estimated ejection fraction is 20-25 %. Stage 2 diastolic dysfunction. There are regional wall motion abnormalities as specified. Mild (1+) mitral valve insufficiency. Unable to estimate RV systolic pressure due to insufficient tricuspid regurgitant envelope. Compared to echo report dated 10/08/2018, LV function has decreased from 35% to 20-25% with new lateral hypokinesis. The study was technically difficult. Contrast injection was performed. Cardiac cath in June 2019 DOMINANCE: Right Dominant LEFT HEART ASSESSMENT Left Ventricular Ejection Fraction: by LV Gram 15-20 % Anterior Hypokinesis - Severe Depressed Left Ventricular systolic function LVEDP: 7 mmHg LEFT MAIN: Mild luminal irregularities less than 30% LEFT ANTERIOR DESCENDING ARTERY: MID LAD: is occluded CIRCUMFLEX ARTERY: DISTAL CIRC: 75 % Stenosis RIGHT CORONARY ARTERY: is occluded GRAFTS: HUMPHREY graft to the LAD is totally occluded Saphenous Vein graft to the RCA is totally occluded Saphenous Vein graft to the 1st Diagonal is totally occluded Saphenous Vein graft to the CIRC has a proximal lesion of 85 %, with widely patent SVG stents. COLLATERAL FLOW: Collateral flow from Left to Left Code Visit Inpatient E&M: 02427 Subs Hosp L3
[2019-09-24] MEDS: Insulin Lispro 100 UNIT/ML INSULN.PEN SC ×4 (08:50→21:35)
[2019-09-24] MEDS: Morphine 2 MG/ML Syringe IV ×3 (08:50→22:36)
[2019-09-24] MEDS: Aspirin E.C. 81 MG Tablet PO (08:50)
[2019-09-24] MEDS: Allopurinol 300 MG Tablet PO (08:50)
[2019-09-24] MEDS: Metoprolol Tartrate 25 MG Tablet PO ×2 (09:50→21:42)
[2019-09-24] MEDS: Pantoprazole Sodium 40 MG Tablet PO (09:50)
[2019-09-24] MEDS: Furosemide 40 MG/4 ML Vial IV ×2 (09:51→17:20)
[2019-09-24] MEDS: Enoxaparin 40 MG/0.4 ML Syringe SC (09:52)
[2019-09-24] MEDS: guaiFENesin 1,200 MG Tablet 1200 MG PO ×2 (09:52→21:31)
[2019-09-24] MEDS: Lisinopril 2.5 MG Tablet PO (09:53)
[2019-09-24] MEDS: Clopidogrel Bisulfate 75 MG Tablet PO (09:53)
[2019-09-24 10:26] LABS: Bedside Glucose 183 mg/dL (70-110)
[2019-09-24 11:14] LABS: Free T3 2.6 pg/mL (2.18-3.98); T4 Free Direct 0.81 ng/dL (0.76-1.46)
--- NOTE | 2019-09-24 11:43 | CM.UR ---
RN CM Assessment Introduced role of RN CM to patient. Patient is alert and able to participate in RN CM Assessment. Care providers, pharmacy, and demographics verified. at bedside. Presentation: sob, chest pain and orthopnea Admit Dx: CHF exac, NSTEMI Re-Admit: No Barriers/Issues: possibly denial or doesn't want to ask for help. PCP: Dr. De La Vega Specialists: Dr. Pop and Dr. Inman Preferred Pharmacy: [facility]. [facility] [employer] [facility] [place]: yes [employer]. No medication copays LNOK: , Alma Rosa LW/HPOA: None. Declines information. States has forms at home just haven't done it yet. Living Arrangements: Lives in 2 story with and grandson. Has 13 steps with railings on both sides. His bedroom and bathroom are on the 2nd floor. ADL?s: Patient states he is independent with all ADLs. tried to speak up and say that he has needed more help recently but he told her to shut up. Transportation: Patient able to drive on a normal basis and able to drive when he can't. DME: rollator, nebulizer, shower chair, wheelchair and grab bars. has [employer] CONSULTANT 1x per week and she has made recommendations and helped add the grab bar in bathroom. DME co: No preference as long as in-network. HHC: Had HHC before but can't remember the agency. SNF: None Goal: Return home. DC PLAN: Home, no needs noted at this time. Instructed that CM will remain available should any needs arise. Verb understanding. Alyson Moran RN, [facility].
[2019-09-24 11:46] LABS: Bedside Glucose 222 mg/dL (70-110)
--- NOTE | 2019-09-24 12:15 | PN.CARD_ITS ---
Subjectve: The patient is awake and alert. He states his breathing has improved. He also notes his lower extremity edema has improved. Objective: Vital Signs Temp Pulse Resp BP Pulse Ox 98 F 90 16 85/50 L 96 09/24/19 05:00 09/24/19 09:50 09/24/19 06:32 09/24/19 05:00 09/24/19 06:32 Oxygen Flow Rate (L/min) 2 Oxygen Delivery Method Room Air Weight: 202 lb 13.204 oz Body Mass Index (BMI) 31.8 Finger Stick Blood Glucose 111 Intake and Output for Last 24 Hours 09/22/19 09/23/19 09/24/19 23:59 23:59 23:59 Intake Total 805.1 / 830.1 580 / 580 Output Total 3800 / 3800 Balance -2994.9 / -2969.9 580 / 580 General: Awake, Alert, Oriented x 3, Cooperative, No Acute Distress, Obese HEENT: Atraumatic, Normocephalic, PERRL, EOMI, Sclera Non Icteric Oral: Moist Mucosa Neck: Supple, Good ROM, No JVD Lungs: Diminished Stone Bases Cardiovascular: Regular Rhythm, Normal S1, Normal S2 Abdomen: Bowel Sounds Present, Soft, Non Tender Extremities: No edema Psych/Mental Status: Appropriate 09/23/19 08:29: Magnesium 1.9 09/23/19 08:29: Phosphorus 3.2 09/23/19 12:30: Urine Color Straw, Urine Clarity Clear, Urine pH 7.0, Ur Specific [place] 1.010, Urine Protein Negative, Urine Glucose (UA) Normal, Urine Ketones Negative, Urine Occult Blood Negative, Urine Nitrite Negative, Urine Bilirubin Negative, Urine Urobilinogen Normal, Ur Leukocyte Esterase Negative, Urine RBC 0 SEEN, Urine WBC 0 SEEN 09/23/19 14:33: Troponin I 0.317 H 09/23/19 16:35: Troponin I 0.290 H 09/23/19 19:41: Troponin I 0.191 H 09/24/19 05:28: WBC 6.4, RBC 4.96, Hgb 14.6, Hct 44.6, MCV 89.9, MCH 29.4, MCHC 32.7, Plt Count 232, MPV 9.4, Immature Gran % (Auto) 0.300, Neut % (Auto) 89.1 H , Lymph % (Auto) 7.8 L, [place] % (Auto) 1.2, Eos % (Auto) 1.6, Baso % (Auto) 0.0, Absolute Neuts (auto) 5.7, Nucleated RBC % 0 09/24/19 05:28: Sodium 137, Potassium 3.9, Chloride 101, Carbon Dioxide 26.0, Anion Gap 10, BUN 28 H, Creatinine 1.43 H, Est GFR (MDRD) Af Amer 63, Est GFR (MDRD) Non-Af 52 L, BUN/Creatinine Ratio 19.6, Glucose 176 H, Calcium 9.1, Phosphorus 3.1, Triglycerides 294 H, Cholesterol 189, LDL Cholesterol 84, VLDL Cholesterol 59 H, HDL Cholesterol 46 Rhythm: Sinus rhythm EKG: Sinus rhythm; incomplete left bundle branch block; ST and T wave changes- consider anterolateral myocardial ischemia Medical Necessity - Tobacco Use Smoking Status: Current every day smoker Tobacco Use: Cigarettes Assessment/Plan 1. Atherosclerotic coronary artery disease The patient underwent heart catheterization on 06/29/2019 that showed LVEF of 15- 20%, multivessel coronary artery disease with occluded qawalangin mid LAD, occluded qawalangin proximal RCA, occluded SVG to diagonal, occluded SVG to RCA, and occluded HUMPHREY to LAD. There was severe 85% stenosis in last main vessel of SVG LCx with widely patent SVG stents. He was transferred to [facility] for high risk PCI of SVG to . He has been following with troponin I levels. They are trending down. An echocardiogram has been requested to reassess his left ventricular wall motion and systolic function. He will continue with current medical therapy with adjustments as necessary. Ending upon his clinical course he may or may not need repeat evaluation in the cardiac catheterization laboratory. If he does this may need to be performed at [facility] where he had his high risk PCI performed previously. 2. Ischemic cardiomyopathy As noted above his heart catheterization June 2019 showed reduced ejection fraction 15-20%. He notes with his medical management/diuresis he has had improvement in his breathing and his lower extremity edema. He will continue with IV Lasix with routine laboratory screening to assess kidney function and electrolytes. Depending on his overall progress, he may be a candidate for Entresto therapy, but would require 36-hour interruption of BEHZAD inhibitor. 3. Status post ICD It does not appear that he follows routinely with [facility] pacemaker clinic. He states it has been over 1 year since last evaluated. He denies any symptoms concerning for electrical abnormality. He was strongly urged to reestablish on an outpatient basis. Interim his ICD was interrogated. It appears to be functioning appropriately. 4. Hyperlipidemia He will continue risk factor evaluation and care and medical management. 5. Hypertension He will continue evaluation care as deemed appropriate. 6. Tobacco abuse/COPD He does have a history of tobacco abuse and underlying COPD. His spouse states that she has encouraged him to discontinue tobacco use however he continues to smoke. Comment: The patient's case was discussed and reviewed with the patient and his spouse. This note was generated using a voice recognition system and there may be incorrect words, spelling or punctuation that were not noted when reviewing the office note prior to saving.
[2019-09-24 17:31] LABS: Bedside Glucose 195 mg/dL (70-110)
--- NOTE | 2019-09-24 18:00 | NURSING ---
Pt arrived to the floor in room 129. Pt showered thoroughly and moved to room 121. All patient belongings double bagged with gooseneck tie.
[2019-09-24] MEDS: oxyCODONE 5 MG Tablet 10 MG PO (20:27)
[2019-09-24] MEDS: Rosuvastatin 20 MG Tablet 40 MG PO (21:32)
[2019-09-24] MEDS: MELATONIN 3 MG TABLET PO (22:41)
[2019-09-24 22:45] LABS: Bedside Glucose 215 mg/dL (70-110)
--- NOTE | 2019-09-24 23:39 | NURSING ---
Patient was given shower Nicotine patch and Fetanyl patch fell off with previous shift.
[2019-09-25] VITALS (17 sets, daily range): BP systolic 100–112; BP diastolic 50–68; PULSE 77–96; RESP 17–20; TEMP 36.4–36.6; O2SAT 90–95
[2019-09-25] MEDS: oxyCODONE 5 MG Tablet 10 MG PO ×5 (01:48→21:28)
[2019-09-25] MEDS: Albuterol 2.5 MG/3 ML VIAL.NEB. INHALATION (05:38)
[2019-09-25] MEDS: Insulin Lispro 100 UNIT/ML INSULN.PEN SC ×4 (06:45→21:32)
[2019-09-25 06:50] LABS: Bedside Glucose 152 mg/dL (70-110)
[2019-09-25 07:29] LABS: Absolute Neutrophil Count 10.4 X10^3/uL (2.0-7.7); Basophil# 0.01 X10^3/uL; Basophil% 0.1 % (0-1); Hematocrit 42.6 % (40-54); Hemoglobin 13.9 g/dL (13.0-16.5); Lymphocyte % 5.3 % (19-41); Mean Corp Hgb Conc 32.6 g/dL (32-36); Mean Corpuscular Hgb 29.8 pg (27.0-32.0); Mean Corpuscular Volume 91.2 fL (80-94); Mean Platelet Vol. 9.9 fl (6.2-12.0); Monocyte# 0.35 X10^3/uL; Monocyte% 3.1 % (0-10); NRBC Flagged by Analyzer 0 % (0-5); Neutrophil # 10.38 X10^3/uL (2.7-7.7); Neutrophil % 91.1 % (47-70); POSITIVE DIFFERENTIAL YES; Platelet Count 231 K/mm3 (150-450); RBC Distribution Width CV 14.3 % (11.6-14.6); RBC Distribution Width SD 47.5 fl (35.1-43.9); Red Blood Count 4.67 M/mm3 (4.6-6.2); White Blood Count 11.4 K/mm3 (4.4-11.0)
[2019-09-25 07:35] LABS: Differential Indicated SCAN CRITERIA MET
[2019-09-25 07:53] LABS: Anion Gap 10 (5-15); BUN 47 mg/dL (7-18); BUN/Creat Ratio 35.3 RATIO (10-20); Calcium,Total 8.6 mg/dL (8.5-10.1); Chloride 104 mmol/L (98-107); Creatinine, Serum 1.33 mg/dL (0.70-1.30); EST Glomerular Filtration Rate 57 mL/min (>60); Est Glom Filt Rate - Afr Amer 69 mL/min (>60); Estimated Creatinine Clearance 51.43 ml/min; Glucose 152 mg/dL (74-106); Potassium 4.3 mmol/L (3.5-5.1); Sodium Level 139 mmol/L (136-145)
[2019-09-25] MEDS: Morphine 2 MG/ML Syringe IV ×4 (08:07→23:02)
[2019-09-25] MEDS: 0.9% Saline Lock 10 ML Syringe IV ×8 (08:07→23:03)
[2019-09-25 08:12] LABS: Platelet Estimate ADEQUATE (ADEQ); Red Cell Morphology NORM C+C NORMAL (NORM C&C)
[2019-09-25] MEDS: Aspirin E.C. 81 MG Tablet PO (10:00)
[2019-09-25] MEDS: Allopurinol 300 MG Tablet PO (10:02)
[2019-09-25] MEDS: Metoprolol Tartrate 25 MG Tablet PO ×2 (10:02→21:28)
[2019-09-25] MEDS: Clopidogrel Bisulfate 75 MG Tablet PO (10:03)
[2019-09-25] MEDS: guaiFENesin 1,200 MG Tablet 1200 MG PO ×2 (10:03→21:29)
[2019-09-25] MEDS: Lisinopril 2.5 MG Tablet PO (10:03)
[2019-09-25] MEDS: Pantoprazole Sodium 40 MG Tablet PO (10:03)
[2019-09-25] MEDS: Polyethylene Glycol 3350 17 GM PACKET PO (10:04)
[2019-09-25] MEDS: Enoxaparin 40 MG/0.4 ML Syringe SC (10:07)
[2019-09-25] MEDS: Furosemide 40 MG/4 ML Vial IV ×2 (10:08→17:20)
--- NOTE | 2019-09-25 10:43 | RAD_ITS ---
STUDY: X-RAY CHEST REASON FOR EXAM: Male, 69 years old. SOB, COUGH -- pt states SOB for awhile, it got better and now its worse TECHNIQUE: PA and lateral views of the chest. COMPARISON: 09/23/2019 FINDINGS: Two lead cardiac conduction device is seen via the left subclavian vein with lead tips projecting over the right atrium and right ventricle, respectively. Sternal wires and mediastinal surgical clips compatible with prior CABG. EKG leads project over the chest. Granuloma in the right lung base is stable. No airspace consolidation. There is no demonstrated pleural abnormality. Normal size heart. Normal mediastinum and serjio. Normal visualized pulmonary arteries. Normal visualized aortic arch and descending thoracic aorta. There are diffuse degenerative changes of the visualized thoracic spine. Normal visualized ribs, clavicles, and shoulders. There is no demonstrated abnormality of the visualized soft tissue structures of the upper abdomen. RAD/Chest PA and Lateral IMPRESSION: Stable, nonacute x-ray examination of the chest. Electronically Signed: Christian Bauman MD ([place]) at 12:43 EST , Service support ,
[2019-09-25] MEDS: Ipratropium/Albuterol Sulfate 3 ML AMPUL.NEB INHALATION ×3 (11:06→19:51)
--- NOTE | 2019-09-25 12:18 | PCM.PN.CARD ---
Subjectve: The patient appears to be somewhat more short of breath today. He has audible expiratory wheezing. Objective: Vital Signs Temp Pulse Resp BP Pulse Ox 97.6 F L 87 17 112/50 L 91 09/25/19 09:40 09/25/19 11:44 09/25/19 11:37 09/25/19 10:02 09/25/19 10:08 Oxygen Flow Rate (L/min) 2 Oxygen Delivery Method Room Air Weight: 204 lb 12.951 oz Body Mass Index (BMI) 31.8 Finger Stick Blood Glucose 111 Intake and Output for Last 24 Hours 09/23/19 09/24/19 09/25/19 23:59 23:59 23:59 Intake Total 805.1 / 830.1 1540 / 1540 735 / 735 Output Total 3800 / 3800 Balance -2994.9 / -2969.9 1540 / 1540 735 / 735 General: Awake, Alert, Oriented x 3, Cooperative, Ill Appearing, Obese HEENT: Atraumatic, Normocephalic, PERRL, EOMI, Sclera Non Icteric Oral: Moist Mucosa Neck: Supple, Good ROM, No JVD Lungs: Rhonchi, Expiratory Wheezes-Stone Cardiovascular: Regular Rhythm, Normal S1, Normal S2 Abdomen: Bowel Sounds Present, Soft, Non Tender Extremities: No edema Psych/Mental Status: Appropriate 09/25/19 07:05: WBC 11.4 H, RBC 4.67, Hgb 13.9, Hct 42.6, MCV 91.2, MCH 29.8, MCHC 32.6, Plt Count 231, MPV 9.9, Immature Gran % (Auto) 0.400, Neut % (Auto) 91.1 H, Lymph % (Auto) 5.3 L, [place] % (Auto) 3.1, Eos % (Auto) 0.0, Baso % (Auto) 0.1, Absolute Neuts (auto) 10.4 H, Nucleated RBC % 0 09/25/19 07:05: Sodium 139, Potassium 4.3, Chloride 104, Carbon Dioxide 25.0, Anion Gap 10, BUN 47 H, Creatinine 1.33 H, Est GFR (MDRD) Af Amer 69, Est GFR (MDRD) Non-Af 57 L, BUN/Creatinine Ratio 35.3 H, Glucose 152 H, Calcium 8.6 Rhythm: Sinus rhythm Medical Necessity - Tobacco Use Smoking Status: Current every day smoker Tobacco Use: Cigarettes Assessment/Plan 1. Atherosclerotic coronary artery disease The patient underwent heart catheterization on 06/29/2019 that showed LVEF of 15-20%, multivessel coronary artery disease with occluded [place] mid LAD, occluded [place] proximal RCA, occluded SVG to diagonal, occluded SVG to RCA, and occluded HUMPHREY to LAD. There was severe 85% stenosis in last main vessel of SVG LCx with widely patent SVG stents. He was transferred to [facility] for high risk PCI of SVG to OM. He has been following with troponin I levels. They are trending down. An echocardiogram has been performed. His estimated LVEF remains approximately 15%. He will continue with current medical therapy with adjustments as necessary. Ending upon his clinical course he may or may not need repeat evaluation in the cardiac catheterization laboratory. If he does this may need to be performed at [facility] where he had his high risk PCI performed previously. 2. Ischemic cardiomyopathy As noted above his heart catheterization June 2019 showed reduced ejection fraction 15-20%. He notes with his medical management/diuresis he has had improvement in his breathing and his lower extremity edema. He will continue with IV Lasix with routine laboratory screening to assess kidney function and electrolytes. Depending on his overall progress, he may be a candidate for Entresto therapy, but would require 36-hour interruption of BEHZAD inhibitor. 3. Status post ICD It does not appear that he follows routinely with [facility] pacemaker clinic. He states it has been over 1 year since last evaluated. He denies any symptoms concerning for electrical abnormality. He was strongly urged to reestablish on an outpatient basis. Interim his ICD was interrogated. It appears to be functioning appropriately. 4. Hyperlipidemia He will continue risk factor evaluation and care and medical management. 5. Hypertension He will continue evaluation care as deemed appropriate. 6. Tobacco abuse/COPD He does have a history of tobacco abuse and underlying COPD. His examination today demonstrates expiratory wheezing. There is concern this may be related to a separate underlying pulmonary disease process. He is being evaluated by internal medicine. A chest x-ray has been performed. The results are pending at this time. Comment: The patient's case was discussed and reviewed with the patient and Dr. Landeros. This note was generated using a voice recognition system and there may be incorrect words, spelling or punctuation that were not noted when reviewing the office note prior to saving.
[2019-09-25 12:30] LABS: Bedside Glucose 236 mg/dL (70-110)
--- NOTE | 2019-09-25 12:51 | PCM.PN.HOSP ---
Patient Problems: Active and Suspected Problems (Last Reviewed 12/24/18 @ 14:09 by TISH Blankenship) Unstable angina (Acute) COPD exacerbation (Acute) Reason for Visit: Shortness of breath, chest pain Objective: Patient looks more short of breath today as compared to yesterday and expiratory wheezing. Repeat chest x-ray ordered. No fevers or chills. Pulse ox 95% on room air. No tachypnea Vitals/I&O's: Vital Signs Temp Pulse Resp BP Pulse Ox 97.6 F L 87 17 112/50 L 91 09/25/19 09:40 09/25/19 11:44 09/25/19 11:37 09/25/19 10:02 09/25/19 10:08 Oxygen Flow Rate (L/min) 2 Oxygen Delivery Method Room Air Weight: 204 lb 12.951 oz Body Mass Index (BMI) 31.8 Finger Stick Blood Glucose 111 Intake and Output for Last 24 Hours 09/23/19 09/24/19 09/25/19 23:59 23:59 23:59 Intake Total 805.1 / 830.1 1540 / 1540 735 / 735 Output Total 3800 / 3800 Balance -2994.9 / -2969.9 1540 / 1540 735 / 735 General: Alert, Oriented x3, Cooperative HEENT: Atraumatic, PERRLA, EOMI, Normocephalic Neck: Supple, No JVD, Negative Carotid Bruits Lungs: Diminished - Air entry diminished in bilateral lung bases, Rhonchi, Short of Breath, Wheezes - Expiratory wheezing present Cardiovascular: Regular rate, Regular Rhythm, Normal S1, Normal S2, No murmurs Abdomen: Bowel Sounds Present, Soft, Non Tender, Non-Distended Extremities: Capillary Refill Less than 3 Seconds, Edema Skin: No rashes, No breakdown Musculoskeletal: No Tenderness to Palpation of Joints or Extremities, Arthritic Changes Neurological: Cranial nerves II-XII grossly intact, Deep Tendon Reflexes 2+/4 and Symmetrical, Neuro grossly intact Psych/Mental Status: Normal Affect, Appropriate Microbiology Past 72 Hours 09/23/19 15:24 Mucosa - Nasopharyngeal Respiratory Panel (PCR) - Final Laboratory Results 09/24/19 17:18: POC Glucose 195 H 09/24/19 21:29: POC Glucose 215 H 09/25/19 06:41: POC Glucose 152 H 09/25/19 07:05: WBC 11.4 H, RBC 4.67, Hgb 13.9, Hct 42.6, MCV 91.2, MCH 29.8, MCHC 32.6, RDW Std Deviation 47.5 H, RDW Coeff of Maggie 14.3, Plt Count 231, MPV 9.9, Immature Gran % (Auto) 0.400, Neut % (Auto) 91.1 H, Lymph % (Auto) 5.3 L, [place] % (Auto) 3.1, Eos % (Auto) 0.0, Baso % (Auto) 0.1, Absolute Neuts (auto) 10.4 H, Absolute Lymphs (auto) 0.60 L, Nucleated RBC % 0, Platelet Estimate ADEQUATE, RBC Morphology NORM C+C 09/25/19 07:05: Sodium 139, Potassium 4.3, Chloride 104, Carbon Dioxide 25.0, Anion Gap 10, BUN 47 H, Creatinine 1.33 H, Estim Creat Clear Calc 51.43, Est GFR (MDRD) Af Amer 69, Est GFR (MDRD) Non-Af 57 L, BUN/Creatinine Ratio 35.3 H, Glucose 152 H, Calcium 8.6 09/25/19 12:18: POC Glucose 236 H Current Medications Acetaminophen (Tylenol) 650 mg PO Q6H PRN PRN PRN Reason: Pain Score 1-10/Temp > 100.7 F Albuterol Sulfate (Ventolin Aerosols) 2.5 mg INHALATION Q2H PRN PRN PRN Reason: SOB/Wheezing Last Admin: 09/25/19 05:38 Dose: 2.5 mg Documented by: Albuterol/Ipratropium (Duoneb) 3 ml INHALATION Q4H.RT [facility] Last Admin: 09/25/19 11:06 Dose: 3 ml Documented by: Allopurinol (Zyloprim) 300 mg PO DAILY@0800 [facility] Last Admin: 09/25/19 10:02 Dose: 300 mg Documented by: Aspirin (Ecotrin) 81 mg PO DAILY@0800 [facility] Last Admin: 09/25/19 10:00 Dose: 81 mg Documented by: Clopidogrel Bisulfate (Plavix) 75 mg PO DAILY [facility] Last Admin: 09/25/19 10:03 Dose: 75 mg Documented by: Enoxaparin Sodium (Lovenox) 40 mg SC DAILY [facility] Last Admin: 09/25/19 10:07 Dose: 40 mg Documented by: Fentanyl (Duragesic Patch) 12 mcg TRANSDERM. Q3D [facility] Last Admin: 09/23/19 15:10 Dose: 12 mcg Documented by: Furosemide (Lasix) 40 mg IV BIDLX [facility] Last Admin: 09/25/19 10:08 Dose: 40 mg Documented by: Glucagon () 1 mg IM .X1 PRN PRN Reason: Hypoglycemia Guaifenesin (Mucinex) 1,200 mg PO BID [facility] Last Admin: 09/25/19 10:03 Dose: 1,200 mg Documented by: Sodium Chloride () 250 mls @ 15 mls/hr IV .[id number] PRN PRN Reason: Saline Flush Last Infusion: 09/24/19 08:58 Dose: Infused Documented by: Sodium Chloride () 250 mls @ 15 mls/hr IV .[id number] PRN PRN Reason: Additional IVPB Infusion Dextrose (Dextrose 10%-Water) 250 mls @ 999 mls/hr IV .Q16M PRN; Protocol PRN Reason: HYPOGLYCEMIA Insulin Human Lispro (Humalog Kwikpen (Bkc)) 0 unit SC ACHS [facility]; Protocol Last Admin: 09/25/19 12:20 Dose: 4 units Documented by: Lisinopril (Zestril) 2.5 mg PO DAILY [facility] Last Admin: 09/25/19 10:03 Dose: 2.5 mg Documented by: Melatonin (Melatonin) 3 mg PO QHS PRN PRN PRN Reason: INSOMNIA Last Admin: 09/24/19 22:41 Dose: 3 mg Documented by: Methylprednisolone (Solu-Medrol) 40 mg IV Q8 [facility] Last Admin: 09/25/19 05:51 Dose: 40 mg Documented by: Metoprolol Tartrate (Lopressor (Beta Sina)) 25 mg PO BID [facility] Last Admin: 09/25/19 10:02 Dose: 25 mg Documented by: Morphine Sulfate () 2 mg IV Q3H PRN PRN PRN Reason: Pain Score 6-10/10 Last Admin: 09/25/19 08:07 Dose: 2 mg Documented by: Nicotine (Nicoderm Cq (Pbkc)) 21 mg TRANSDERM. DAILY [facility] Last Admin: 09/25/19 10:11 Dose: 21 mg Documented by: Nicotine (Nicoderm Cq (Pbkc)) 21 mg TRANSDERM. DAILY [facility] Last Admin: 09/25/19 10:13 Dose: Not Given Documented by: Nitroglycerin (Nitrostat) 0.4 mg SUBLINGUAL Q5M PRN PRN Reason: CARDIAC/CHEST PAIN Oxycodone HCl (Oxyir) 5 mg PO Q4H PRN PRN PRN Reason: Pain Score 4-5/10 Last Admin: 09/24/19 05:15 Dose: 5 mg Documented by: Oxycodone HCl (Oxyir) 10 mg PO Q4H PRN PRN PRN Reason: Pain Score 6-10/10 Last Admin: 09/25/19 10:21 Dose: 10 mg Documented by: Pantoprazole Sodium (Protonix) 40 mg PO DAILY [facility] Last Admin: 09/25/19 10:03 Dose: 40 mg Documented by: Polyethylene Glycol (Miralax) 17 gm PO DAILY [facility] Last Admin: 09/25/19 10:04 Dose: 17 gm Documented by: Prochlorperazine Edisylate (Compazine Iv) 5 mg IV Q4H PRN PRN PRN Reason: Breakthrough Nausea/Vomiting Psyllium Hydrophilic Mucilloid (Metamucil) 1 packet PO DAILY PRN PRN PRN Reason: Constipation Rosuvastatin Calcium (Crestor) 40 mg PO QHS [facility] Last Admin: 09/24/19 21:32 Dose: 40 mg Documented by: Senna/Docusate Sodium (Senokot-S, Salima-Colace) 2 tablet PO BID PRN PRN Reason: Constipation Sodium Chloride () 10 - 40 ml IV UD PRN PRN Reason: SALINE FLUSH Last Admin: 09/25/19 10:08 Dose: 10 ml Documented by: Throat Lozenges (Cepacol Sore Throat Lozenge) 1 lozenge MUCOUS MEM Q2H PRN PRN PRN Reason: SORE THROAT STROKE Vital Signs/Narrative: Vital Signs Temp Pulse Resp BP Pulse Ox 09/25/19 11:44 87 09/25/19 11:37 84 17 09/25/19 10:08 91 09/25/19 10:02 84 112/50 L 09/25/19 09:40 97.6 F L 84 18 112/50 L 95 Medical Necessity - Tobacco Use Smoking Status: Current every day smoker Tobacco Use: Cigarettes Assessment/Plan All Active Problems (Last Reviewed 12/24/18 @ 14:09 by TISH Blankenship) Unstable angina (Acute) COPD exacerbation (Acute) COPD exacerbation (Resolved) Cardiac enzymes elevated (Resolved) The patient is a 69 year old M with multiple comorbidities including coronary artery status post CABG and chronic combined heart failure, EF 2025% in June 2019 status post AICD for V. tach came to ER for shortness of breath, progressively worsening for 1 week. Patient also has worsening of cough which is mainly dry along with wheezing. Mild increase in ankle edema. Patient denies any fever, sinus congestion or sore throat. Patient complain of chest tightness/pressure that started yesterday morning at rest and is still persist. In ED, blood pressure 120/62, pulse ox 93% on room air, respiratory rate 25/min. Started on nitro drip and given Lasix 80 mg IV and transferred to ICU. Chest x-ray independently reviewed and shows chronic interstitial changes but I do not appreciate pulmonary edema. BNP 1951 but it will be chronically elevated with EF 20 to 25% increase dilated LV. 1. Atypical chest pain, possible non-STEMI;: Patient is being admitted in ICU on nitro drip. Serial troponin enzymes. Realtime Court Reporter consulted. Repeat EKG. Patient had echo in June 2019 which is as mentioned below. We will leave that decision on repeat echo on bowling ball assembler. Continue aspirin and Plavix. Patient had CABG done with last cardiac cath in June 2019 and had PCI in [facility]. Obtain medical records from [facility]. As per last cath, severe anterior hypokinesis with depressed LV systolic function. Distal circumflex 75% stenosis. All grafts were totally occluded except SVG to circumflex. Collateral flow from left to left. : Chest pressure resolved and shortness of breath is improved. Shortness of breath. Troponins are elevated 0.286, 0.317 and 0.191. Lipid profile total cholesterol 294, LDL 84. TSH low at 0.24. On guideline management for heart failure and non-STEMI. AICD was interrogated and was reported functioning appropriately. 2D echo is is just done. 09/24: Free T4 0.81. TSH low therefore will start on low-dose thyroxine 25 mcg daily. 2. Acute on chronic combined heart failure status post AICD (leg edema, dyspnea on exertion): Patient had Lasix will continue it. Monitor as per CHF core measures including intake and output, daily weight, fluid restriction. On beta-sina and lisinopril. 09/24: 2D echo reviewed. Overall EF 10 to 15%, suggestive of combined systolic and diastolic heart failure Severe segmental systolic dysfunction (see wall motion). The estimated ejection fraction is 15 %. The left atrium is mildly enlarged. Mild diffuse mitral valve thickening. Mild-Moderate (1-2+) mitral valve insufficiency. Trivial tricuspid valve insufficiency. Mild diffuse aortic valve thickening. Mild focal aortic valve calcification. Unable to estimate RV systolic pressure/pulmonary artery pressure due to technically difficult study. There is evidence of diastolic dysfunction. Patient is on diuretic and guideline heart failure management as mentioned above 3. COPD exacerbation: Chest x-ray does not show pneumonic consolidation or infiltrate. Lactic acid not elevated. Patient states he is not on home oxygen. : Respiratory panel is pending. Patient denies history of sleep apnea or CPAP but never had sleep study done. 09/24: Respiratory panel is negative. His sputum culture not done as patient not coughing up sputum. Repeat chest x-ray was done and independently reviewed. No acute focal infiltrate or consolidation. Chest x-ray reported as nonacute x-ray exam. Continue bronchodilator, IV Solu-Medrol, chest physiotherapy and incentive spirometry 4. Diabetes mellitus type 2: Accu-Chek ACHS coverage Humalog sliding scale. Glucose is controlled. 5. Hypertension and dyslipidemia: Blood pressure is on lower side. Fasting profile ordered for tomorrow a.m. Patient is on Crestor 40 mg daily. Other comorbidities include morbid obesity, obstructive sleep apnea, CKD stage III, chronic back pain with degenerative cervical disc: Multiple comorbidities complicates the present care and expect difficult and delay recovery. Patient put on Duragesic 25 mcg patch every 72 hourly DVT prophylaxis: Lovenox 40 mg daily Total time of the visit including total time spent in counseling or coordination of care, (more than 50% of the total time, spent in obtaining medical information from nurses and other ancillary care providers), discussion with student union consultant, bowling ball assembler, review of labs and imaging is 35 minutes Advance directive/MOLST: CODE STATUS: Patient does not have living will/advanced directive in place. This was suggested by his bowling ball assembler long time ago. When asked directly about different options, he wants full code meaning thereby CPR, intubation, ventilator treatment, DC shocks, artificial tube feeding, central line insertion and vasopressor if needed. Full code. Microbiology Past 72 Hours 09/23/19 15:24 Mucosa - Nasopharyngeal Respiratory Panel (PCR) - Final Laboratory Results 09/24/19 17:18: POC Glucose 195 H 09/24/19 21:29: POC Glucose 215 H 09/25/19 06:41: POC Glucose 152 H 09/25/19 07:05: WBC 11.4 H, RBC 4.67, Hgb 13.9, Hct 42.6, MCV 91.2, MCH 29.8, MCHC 32.6, RDW Std Deviation 47.5 H, RDW Coeff of Maggie 14.3, Plt Count 231, MPV 9.9, Immature Gran % (Auto) 0.400, Neut % (Auto) 91.1 H, Lymph % (Auto) 5.3 L, [place] % (Auto) 3.1, Eos % (Auto) 0.0, Baso % (Auto) 0.1, Absolute Neuts (auto) 10.4 H, Absolute Lymphs (auto) 0.60 L, Nucleated RBC % 0, Platelet Estimate ADEQUATE, RBC Morphology NORM C+C 09/25/19 07:05: Sodium 139, Potassium 4.3, Chloride 104, Carbon Dioxide 25.0, Anion Gap 10, BUN 47 H, Creatinine 1.33 H, Estim Creat Clear Calc 51.43, Est GFR (MDRD) Af Amer 69, Est GFR (MDRD) Non-Af 57 L, BUN/Creatinine Ratio 35.3 H, Glucose 152 H, Calcium 8.6 09/25/19 12:18: POC Glucose 236 H Echo in June 2019 Interpretation Summary Severely dilated left ventricle. The estimated ejection fraction is 20-25 %. Stage 2 diastolic dysfunction. There are regional wall motion abnormalities as specified. Mild (1+) mitral valve insufficiency. Unable to estimate RV systolic pressure due to insufficient tricuspid regurgitant envelope. Compared to echo report dated 10/08/2018, LV function has decreased from 35% to 20-25% with new lateral hypokinesis. The study was technically difficult. Contrast injection was performed. Cardiac cath in June 2019 DOMINANCE: Right Dominant LEFT HEART ASSESSMENT Left Ventricular Ejection Fraction: by LV Gram 15-20 % Anterior Hypokinesis - Severe Depressed Left Ventricular systolic function LVEDP: 7 mmHg LEFT MAIN: Mild luminal irregularities less than 30% LEFT ANTERIOR DESCENDING ARTERY: MID LAD: is occluded CIRCUMFLEX ARTERY: DISTAL CIRC: 75 % Stenosis RIGHT CORONARY ARTERY: is occluded GRAFTS: HUMPHREY graft to the LAD is totally occluded Saphenous Vein graft to the RCA is totally occluded Saphenous Vein graft to the 1st Diagonal is totally occluded Saphenous Vein graft to the CIRC has a proximal lesion of 85 %, with widely patent SVG stents. COLLATERAL FLOW: Collateral flow from Left to Left Code Visit Inpatient E&M: [id number] [facility] Hosp L3
--- NOTE | 2019-09-25 13:31 | CPS ---
started by nursing
[2019-09-25] MEDS: Levothyroxine 25 MCG TABLET PO (15:45)
[2019-09-25 17:11] LABS: Bedside Glucose 156 mg/dL (70-110)
[2019-09-25] MEDS: Rosuvastatin 20 MG Tablet 40 MG PO (21:29)
[2019-09-25] MEDS: MELATONIN 3 MG TABLET PO (23:02)
[2019-09-25 23:15] LABS: Bedside Glucose 186 mg/dL (70-110)
[2019-09-26] VITALS (13 sets, daily range): BP systolic 111–137; BP diastolic 56–84; PULSE 71–87; RESP 12–18; TEMP 36.4–36.9; O2SAT 92–95
[2019-09-26] MEDS: Ipratropium/Albuterol Sulfate 3 ML AMPUL.NEB INHALATION ×5 (01:29→19:18)
[2019-09-26] MEDS: oxyCODONE 5 MG Tablet 10 MG PO ×5 (02:11→21:23)
[2019-09-26 06:17] LABS: Absolute Lymphocyte Count 0.59 X10^3/uL (0.83-4.51); Absolute Neutrophil Count 9.7 X10^3/uL (2.0-7.7); Basophil# 0.01 X10^3/uL; Basophil% 0.1 % (0-1); Hematocrit 43.6 % (40-54); Lymphocyte # 0.59 X10^3/ul (4.0); Lymphocyte % 5.5 % (19-41); Mean Corp Hgb Conc 32.1 g/dL (32-36); Mean Corpuscular Hgb 29.5 pg (27.0-32.0); Mean Platelet Vol. 9.7 fl (6.2-12.0); Monocyte# 0.35 X10^3/uL; Monocyte% 3.3 % (0-10); NRBC Flagged by Analyzer 0 % (0-5); Neutrophil % 90.6 % (47-70); POSITIVE DIFFERENTIAL YES; Platelet Count 218 K/mm3 (150-450); RBC Distribution Width CV 14.1 % (11.6-14.6); RBC Distribution Width SD 47.6 fl (35.1-43.9); Red Blood Count 4.74 M/mm3 (4.6-6.2); White Blood Count 10.7 K/mm3 (4.4-11.0)
[2019-09-26] MEDS: Levothyroxine 25 MCG TABLET PO (06:34)
[2019-09-26 06:36] LABS: Anion Gap 7 (5-15); BUN 49 mg/dL (7-18); BUN/Creat Ratio 35.5 RATIO (10-20); Calcium,Total 8.7 mg/dL (8.5-10.1); Chloride 105 mmol/L (98-107); Creatinine, Serum 1.38 mg/dL (0.70-1.30); EST Glomerular Filtration Rate 54 mL/min (>60); Est Glom Filt Rate - Afr Amer 66 mL/min (>60); Estimated Creatinine Clearance 49.57 ml/min; Glucose 145 mg/dL (74-106); Potassium 4.3 mmol/L (3.5-5.1); Sodium Level 139 mmol/L (136-145)
[2019-09-26 06:51] LABS: Bedside Glucose 137 mg/dL (70-110)
[2019-09-26 07:01] LABS: Differential Indicated SCAN CRITERIA MET
--- NOTE | 2019-09-26 08:23 | PN.CARD_ITS ---
Subjectve: Patient seen and evaluated. Appears to be doing much better this morning. Objective: Vital Signs Temp Pulse Resp BP Pulse Ox 98.0 F 80 18 117/65 94 09/26/19 03:20 09/26/19 03:20 09/26/19 03:20 09/26/19 03:20 09/26/19 03:20 Oxygen Flow Rate (L/min) 2 Oxygen Delivery Method Room Air Weight: 206 lb 5.643 oz Body Mass Index (BMI) 31.8 Finger Stick Blood Glucose 111 Intake and Output for Last 24 Hours 09/24/19 09/25/19 09/26/19 23:59 23:59 23:59 Intake Total 1540 / 1540 1395 / 1395 240 / 240 Output Total 2550 / 2550 500 / 500 Balance 1540 / 1540 -1155 / -1155 -260 / -260 General: Awake, Alert, Oriented x 3 HEENT: PERRL, EOMI, Sclera Non Icteric Neck: Supple, Good ROM, No Lymph Node Enlargement Lungs: Clear to auscultation Cardiovascular: Regular Rhythm, Normal S1, Normal S2, No Murmurs, No Rubs, No Gallops Vascular: No Carotid Bruits, Normal Femoral Pulses, Normal Radial Pulses, Normal Dorsalis Pedal Pulse, Normal Posterior Tibial Pulses Abdomen: Bowel Sounds Present, Soft, Non Tender, No HSM, No Organomegaly Extremities: No Cyanosis, No Clubbing, No edema Musculoskeletal: No Erythema Skin: No Rashes Lymphatic: No Lymph Node Enlargement Neurological: No Focal Motor or Sensory Deficit Psych/Mental Status: Appropriate 09/26/19 05:38: WBC 10.7, RBC 4.74, Hgb 14.0, Hct 43.6, MCV 92.0, MCH 29.5, MCHC 32.1, Plt Count 218, MPV 9.7, Immature Gran % (Auto) 0.500, Neut % (Auto) 90.6 H , Lymph % (Auto) 5.5 L, [place] % (Auto) 3.3, Eos % (Auto) 0.0, Baso % (Auto) 0.1, Absolute Neuts (auto) 9.7 H, Nucleated RBC % 0 09/26/19 05:38: Sodium 139, Potassium 4.3, Chloride 105, Carbon Dioxide 27.0, Anion Gap 7, BUN 49 H, Creatinine 1.38 H, Est GFR (MDRD) Af Amer 66, Est GFR (MDRD) Non-Af 54 L, BUN/Creatinine Ratio 35.5 H, Glucose 145 H, Calcium 8.7 Rhythm: EKG: ECHO: Stress Test: Cardiac Cath: PCI: CT Surgery: Holter monitor: EPS: PPM: CXR: Chest CT Scan: Medical Necessity - Tobacco Use Smoking Status: Current every day smoker Tobacco Use: Cigarettes Assessment/Plan 1. Atherosclerotic coronary artery disease The patient underwent heart catheterization on 06/29/2019 that showed LVEF of 15- 20%, multivessel coronary artery disease with occluded [place] mid LAD, occluded [place] proximal RCA, occluded SVG to diagonal, occluded SVG to RCA, and occluded HUMPHREY to LAD. There was severe 85% stenosis in last main vessel of SVG LCx with widely patent SVG stents. He was transferred to [facility] for high risk PCI of SVG to OM. His echocardiogram demonstrated reduced eje ction fraction. At this time I do not see a reason to pursue invasive approach to management. 2. Ischemic cardiomyopathy As noted above his heart catheterization June 2019 showed reduced ejection fraction 15-20%. He appears to be fairly euvolemic at this particular time. We will continue on his current medication. We may consider Entresto as an outpatient. 3. Status post ICD It does not appear that he follows routinely with [facility] pacemaker clinic. He states it has been over 1 year since last evaluated. He denies any symptoms concerning for electrical abnormality. He was strongly urged to reestablish on an outpatient basis. His ICD interrogation is noted to be normal. 4. Hyperlipidemia He will continue risk factor evaluation and care and medical management. 5. Hypertension He will continue evaluation care as deemed appropriate. 6. Tobacco abuse/COPD He has been counseled about the above. At this particular time he appears to be fairly stable and we should consider outpatient management. Thank you for allowing me to participate in the care of your patient. Please don't hesitate to call if any issues arise
[2019-09-26] MEDS: Allopurinol 300 MG Tablet PO (08:32)
[2019-09-26] MEDS: Aspirin E.C. 81 MG Tablet PO (08:32)
[2019-09-26] MEDS: Furosemide 40 MG/4 ML Vial IV (08:33)
[2019-09-26] MEDS: Enoxaparin 40 MG/0.4 ML Syringe SC (08:34)
[2019-09-26] MEDS: Polyethylene Glycol 3350 17 GM PACKET PO (08:34)
[2019-09-26] MEDS: Metoprolol Tartrate 25 MG Tablet PO (08:34)
[2019-09-26] MEDS: guaiFENesin 1,200 MG Tablet 1200 MG PO ×2 (08:34→21:24)
[2019-09-26] MEDS: Clopidogrel Bisulfate 75 MG Tablet PO (08:35)
[2019-09-26] MEDS: Pantoprazole Sodium 40 MG Tablet PO (08:36)
[2019-09-26] MEDS: Lisinopril 2.5 MG Tablet PO (08:36)
[2019-09-26] MEDS: Carvedilol 6.25 MG Tablet PO ×2 (10:38→21:25)
[2019-09-26] MEDS: Insulin Lispro 100 UNIT/ML INSULN.PEN SC ×3 (12:31→21:24)
[2019-09-26 12:37] LABS: Hemoglobin A1c 6.8 % (4.2-6.3)
[2019-09-26 13:06] LABS: Bedside Glucose 195 mg/dL (70-110)
--- NOTE | 2019-09-26 14:44 | PN_ITS ---
<Alyssa Corbett - Last Filed: 09/26/19 15:05> Patient Problems: Active and Suspected Problems (Last Reviewed 12/24/18 @ 14:09 by TISH Blankenship) Unstable angina (Acute) COPD exacerbation (Acute) Subjective: Patient seen and examined. Reports improvement in breathing. Ambulating in room. Denies chest pain. Reports continued back pain. - Physical Exam Vitals/I&O's: Vital Signs Temp Pulse Resp BP Pulse Ox 98.1 F 74 16 137/81 H 95 09/26/19 09:20 09/26/19 11:10 09/26/19 11:10 09/26/19 09:20 09/26/19 09:20 Oxygen Flow Rate (L/min) 2 Oxygen Delivery Method Room Air Weight: 206 lb 5.643 oz Body Mass Index (BMI) 31.8 Finger Stick Blood Glucose 111 Intake and Output for Last 24 Hours 09/24/19 09/25/19 09/26/19 23:59 23:59 23:59 Intake Total 1540 / 1540 1395 / 1395 840 / 840 Output Total 2550 / 2550 1350 / 1350 Balance 1540 / 1540 -1155 / -1155 -510 / -510 General: Alert, Oriented x3, Cooperative HEENT: Atraumatic, PERRLA, EOMI, Normocephalic Neck: Supple, No JVD, Negative Carotid Bruits Lungs: Diminished, Wheezes Cardiovascular: Regular rate, Regular Rhythm, Normal S1, Normal S2, No murmurs Abdomen: Bowel Sounds Present, Soft, Non Tender, Non-Distended Extremities: No clubbing, No cyanosis, No edema, Capillary Refill Less than 3 Seconds Skin: No rashes, No breakdown Musculoskeletal: No Tenderness to Palpation of Joints or Extremities Neurological: Cranial nerves II-XII grossly intact, Neuro grossly intact Psych/Mental Status: Anxious Microbiology Past 72 Hours 09/23/19 15:24 Mucosa - Nasopharyngeal Respiratory Panel (PCR) - Final Laboratory Results 09/25/19 17:04: POC Glucose 156 H 09/25/19 21:17: POC Glucose 186 H 09/26/19 05:38: WBC 10.7, RBC 4.74, Hgb 14.0, Hct 43.6, MCV 92.0, MCH 29.5, MCHC 32.1, RDW Std Deviation 47.6 H, RDW Coeff of Maggie 14.1, Plt Count 218, MPV 9.7, Immature Gran % (Auto) 0.500, Neut % (Auto) 90.6 H, Lymph % (Auto) 5.5 L, Darke % (Auto) 3.3, Eos % (Auto) 0.0, Baso % (Auto) 0.1, Absolute Neuts (auto) 9.7 H, Absolute Lymphs (auto) 0.59 L, Nucleated RBC % 0, Differential Comment COMMENT 09/26/19 05:38: Sodium 139, Potassium 4.3, Chloride 105, Carbon Dioxide 27.0, Anion Gap 7, BUN 49 H, Creatinine 1.38 H, Estim Creat Clear Calc 49.57, Est GFR (MDRD) Af Amer 66, Est GFR (MDRD) Non-Af 54 L, BUN/Creatinine Ratio 35.5 H, Glucose 145 H, Calcium 8.7 09/26/19 05:38: Hemoglobin A1c 6.8 H 09/26/19 06:33: POC Glucose 137 H 09/26/19 12:30: POC Glucose 195 H Current Medications Acetaminophen (Tylenol) 650 mg PO Q6H PRN PRN PRN Reason: Pain Score 1-10/Temp > 100.7 F Albuterol Sulfate (Ventolin Aerosols) 2.5 mg INHALATION Q2H PRN PRN PRN Reason: SOB/Wheezing Last Admin: 09/25/19 05:38 Dose: 2.5 mg Documented by: Albuterol/Ipratropium (Duoneb) 3 ml INHALATION Q4H.RT [facility] Last Admin: 09/26/19 11:10 Dose: 3 ml Documented by: Allopurinol (Zyloprim) 300 mg PO DAILY@0800 [facility] Last Admin: 09/26/19 08:32 Dose: 300 mg Documented by: Aspirin (Ecotrin) 81 mg PO DAILY@0800 [facility] Last Admin: 09/26/19 08:32 Dose: 81 mg Documented by: Carvedilol (Coreg) 6.25 mg PO BID [facility] Last Admin: 09/26/19 10:38 Dose: 6.25 mg Documented by: Clopidogrel Bisulfate (Plavix) 75 mg PO DAILY [facility] Last Admin: 09/26/19 08:35 Dose: 75 mg Documented by: Enoxaparin Sodium (Lovenox) 40 mg SC DAILY [facility] Last Admin: 09/26/19 08:34 Dose: 40 mg Documented by: Furosemide (Lasix) 40 mg PO BID@1000,1800 [facility] Last Admin: 09/26/19 09:44 Dose: Not Given Documented by: Glucagon () 1 mg IM .X1 PRN PRN Reason: Hypoglycemia Guaifenesin (Mucinex) 1,200 mg PO BID [facility] Last Admin: 09/26/19 08:34 Dose: 1,200 mg Documented by: Sodium Chloride () 250 mls @ 15 mls/hr IV .[id number] PRN PRN Reason: Saline Flush Last Infusion: 09/24/19 08:58 Dose: Infused Documented by: Sodium Chloride () 250 mls @ 15 mls/hr IV .[id number] PRN PRN Reason: Additional IVPB Infusion Dextrose (Dextrose 10%-Water) 250 mls @ 999 mls/hr IV .Q16M PRN; Protocol PRN Reason: HYPOGLYCEMIA Insulin Glargine (Lantus (Bk)) 10 units SC BID [facility] Last Admin: 09/26/19 08:33 Dose: 10 u Documented by: Insulin Human Lispro (Humalog Kwikpen ([facility])) 0 unit SC ACHS [facility]; Protocol Last Admin: 09/26/19 12:31 Dose: 2 units Documented by: Levothyroxine Sodium (Synthroid) 25 mcg PO DAILY@0600 [facility] Last Admin: 09/26/19 06:34 Dose: 25 mcg Documented by: Lisinopril (Zestril) 2.5 mg PO DAILY [facility] Last Admin: 09/26/19 08:36 Dose: 2.5 mg Documented by: Melatonin (Melatonin) 3 mg PO QHS PRN PRN PRN Reason: INSOMNIA Last Admin: 09/25/19 23:02 Dose: 3 mg Documented by: Methylprednisolone (Solu-Medrol) 40 mg IV Q8 [facility] Last Admin: 09/26/19 12:32 Dose: 40 mg Documented by: Morphine Sulfate () 2 mg IV Q3H PRN PRN PRN Reason: Pain Score 6-10/10 Last Admin: 09/25/19 23:02 Dose: 2 mg Documented by: Nicotine (Nicoderm Cq ([facility])) 21 mg TRANSDERM. DAILY [facility] Last Admin: 09/26/19 08:35 Dose: 21 mg Documented by: Nicotine (Nicoderm Cq (Pbkc)) 21 mg TRANSDERM. DAILY [facility] Last Admin: 09/26/19 09:43 Dose: Not Given Documented by: Nitroglycerin (Nitrostat) 0.4 mg SUBLINGUAL Q5M PRN PRN Reason: CARDIAC/CHEST PAIN Oxycodone HCl (Oxyir) 5 mg PO Q4H PRN PRN PRN Reason: Pain Score 4-5/10 Last Admin: 09/24/19 05:15 Dose: 5 mg Documented by: Oxycodone HCl (Oxyir) 10 mg PO Q4H PRN PRN PRN Reason: Pain Score 6-10/10 Last Admin: 09/26/19 10:37 Dose: 10 mg Documented by: Pantoprazole Sodium (Protonix) 40 mg PO DAILY [facility] Last Admin: 09/26/19 08:36 Dose: 40 mg Documented by: Polyethylene Glycol (Miralax) 17 gm PO DAILY [facility] Last Admin: 09/26/19 08:34 Dose: 17 gm Documented by: Prochlorperazine Edisylate (Compazine Iv) 5 mg IV Q4H PRN PRN PRN Reason: Breakthrough Nausea/Vomiting Psyllium Hydrophilic Mucilloid (Metamucil) 1 packet PO DAILY PRN PRN PRN Reason: Constipation Rosuvastatin Calcium (Crestor) 40 mg PO QHS [facility] Last Admin: 09/25/19 21:29 Dose: 40 mg Documented by: Senna/Docusate Sodium (Senokot-S, Salima-Colace) 2 tablet PO BID PRN PRN Reason: Constipation Sodium Chloride () 10 - 40 ml IV UD PRN PRN Reason: SALINE FLUSH Last Admin: 09/25/19 23:03 Dose: 10 ml Documented by: Throat Lozenges (Cepacol Sore Throat Lozenge) 1 lozenge MUCOUS MEM Q2H PRN PRN PRN Reason: SORE THROAT Medical Necessity - Tobacco Use Smoking Status: Current every day smoker Tobacco Use: Cigarettes Assessment/Plan All Active Problems (Last Reviewed 12/24/18 @ 14:09 by Marlene Robles NP-C) Unstable angina (Acute) COPD exacerbation (Acute) COPD exacerbation (Resolved) Cardiac enzymes elevated (Resolved) 1. Abnormal troponin with CAD status post CABG x4 and multiple stents- cardiology following. Continue aspirin, statin, Plavix, beta-vimal. Patient underwent heart cath 06/29/2019 which showed multivessel CAD with occluded [place] mid LAD, occluded [place] proximal RCA, occluded SVG to diagonal, occluded SVG to RCA, and occluded [place] to LAD. There was 85% stenosis in left main vessel of SVG LCx with widely patent SVG stents. He was transferred at that time to [facility] for high risk PCI of SVG to OM. Continue medical management. 2. Acute on chronic systolic CHF/ischemic cardiomyopathy-status post AICD- continue aspirin, Plavix, statin, beta-vimal. 1500 cc fluid restriction. Daily weight. Echocardiogram demonstrates EF 15%. Transition to oral Lasix 40 mg twice daily. 3. Acute exacerbation of COPD-respiratory panel negative. IV Solu-Medrol. Albuterol DuoNeb aerosols. Oxygen stable on room air. 4. ARIADNA-continue home CPAP regimen. 5. Hypertension-continue lisinopril, metoprolol, isosorbide. 6. Hyperlipidemia-continue statin. 7. Tobacco dependence-encourage cessation. 8. Chronic kidney disease stage III-at baseline, trend BMP. 9. Type 2 diabetes [id number] with sliding scale insulin. 10. GERD-continue PPI. DVT prophylaxis-Lovenox subcu This patient was seen by TISH Kerns under the supervision of Dr. Lara. <Malaika Lara - Last Filed: 09/26/19 16:09> - Physical Exam Vitals/I&O's: Vital Signs Temp Pulse Resp BP Pulse Ox 98.1 F 74 16 137/81 H 95 09/26/19 09:20 09/26/19 11:10 09/26/19 11:10 09/26/19 09:20 09/26/19 09:20 Oxygen Flow Rate (L/min) 2 Oxygen Delivery Method Room Air Weight: 93.6 kg Body Mass Index (BMI) 31.8 Finger Stick Blood Glucose 111 Intake and Output for Last 24 Hours 09/24/19 09/25/19 09/26/19 23:59 23:59 23:59 Intake Total 1540 / 1540 1395 / 1395 840 / 840 Output Total 2550 / 2550 1350 / 1350 Balance 1540 / 1540 -1155 / -1155 -510 / -510 Microbiology Past 72 Hours 09/23/19 15:24 Mucosa - Nasopharyngeal Respiratory Panel (PCR) - Final Laboratory Results 09/25/19 17:04: POC Glucose 156 H 09/25/19 21:17: POC Glucose 186 H 09/26/19 05:38: WBC 10.7, RBC 4.74, Hgb 14.0, Hct 43.6, MCV 92.0, MCH 29.5, MCHC 32.1, RDW Std Deviation 47.6 H, RDW Coeff of Maggie 14.1, Plt Count 218, MPV 9.7, Immature Gran % (Auto) 0.500, Neut % (Auto) 90.6 H, Lymph % (Auto) 5.5 L, Darke % (Auto) 3.3, Eos % (Auto) 0.0, Baso % (Auto) 0.1, Absolute Neuts (auto) 9.7 H, Absolute Lymphs (auto) 0.59 L, Nucleated RBC % 0, Differential Comment COMMENT 09/26/19 05:38: Sodium 139, Potassium 4.3, Chloride 105, Carbon Dioxide 27.0, Anion Gap 7, BUN 49 H, Creatinine 1.38 H, Estim Creat Clear Calc 49.57, Est GFR (MDRD) Af Amer 66, Est GFR (MDRD) Non-Af 54 L, BUN/Creatinine Ratio 35.5 H, Glucose 145 H, Calcium 8.7 09/26/19 05:38: Hemoglobin A1c 6.8 H 09/26/19 06:33: POC Glucose 137 H 09/26/19 12:30: POC Glucose 195 H Current Medications Acetaminophen (Tylenol) 650 mg PO Q6H PRN PRN PRN Reason: Pain Score 1-10/Temp > 100.7 F Albuterol Sulfate (Ventolin Aerosols) 2.5 mg INHALATION Q2H PRN PRN PRN Reason: SOB/Wheezing Last Admin: 09/25/19 05:38 Dose: 2.5 mg Documented by: Albuterol/Ipratropium (Duoneb) 3 ml INHALATION Q4H.RT [facility] Last Admin: 09/26/19 15:39 Dose: 3 ml Documented by: Allopurinol (Zyloprim) 300 mg PO DAILY@0800 [facility] Last Admin: 09/26/19 08:32 Dose: 300 mg Documented by: Aspirin (Ecotrin) 81 mg PO DAILY@0800 [facility] Last Admin: 09/26/19 08:32 Dose: 81 mg Documented by: Carvedilol (Coreg) 6.25 mg PO BID [facility] Last Admin: 09/26/19 10:38 Dose: 6.25 mg Documented by: Clopidogrel Bisulfate (Plavix) 75 mg PO DAILY [facility] Last Admin: 09/26/19 08:35 Dose: 75 mg Documented by: Enoxaparin Sodium (Lovenox) 40 mg SC DAILY [facility] Last Admin: 09/26/19 08:34 Dose: 40 mg Documented by: Furosemide (Lasix) 40 mg PO BID@1000,1800 [facility] Last Admin: 09/26/19 09:44 Dose: Not Given Documented by: Glucagon () 1 mg IM .X1 PRN PRN Reason: Hypoglycemia Guaifenesin (Mucinex) 1,200 mg PO BID [facility] Last Admin: 09/26/19 08:34 Dose: 1,200 mg Documented by: Sodium Chloride () 250 mls @ 15 mls/hr IV .[id number] PRN PRN Reason: Saline Flush Last Infusion: 09/24/19 08:58 Dose: Infused Documented by: Sodium Chloride () 250 mls @ 15 mls/hr IV .[id number] PRN PRN Reason: Additional IVPB Infusion Dextrose (Dextrose 10%-Water) 250 mls @ 999 mls/hr IV .Q16M PRN; Protocol PRN Reason: HYPOGLYCEMIA Insulin Glargine (Lantus (Bkc)) 10 units SC BID [facility] Last Admin: 09/26/19 08:33 Dose: 10 u Documented by: Insulin Human Lispro (Humalog Kwikpen (Bk)) 0 unit SC ACHS [facility]; Protocol Last Admin: 09/26/19 12:31 Dose: 2 units Documented by: Levothyroxine Sodium (Synthroid) 25 mcg PO DAILY@0600 [facility] Last Admin: 09/26/19 06:34 Dose: 25 mcg Documented by: Lisinopril (Zestril) 2.5 mg PO DAILY [facility] Last Admin: 09/26/19 08:36 Dose: 2.5 mg Documented by: Melatonin (Melatonin) 3 mg PO QHS PRN PRN PRN Reason: INSOMNIA Last Admin: 09/25/19 23:02 Dose: 3 mg Documented by: Methylprednisolone (Solu-Medrol) 40 mg IV Q8 [facility] Last Admin: 09/26/19 12:32 Dose: 40 mg Documented by: Morphine Sulfate () 2 mg IV Q3H PRN PRN PRN Reason: Pain Score 6-10/10 Last Admin: 09/25/19 23:02 Dose: 2 mg Documented by: Nicotine (Nicoderm Cq (Pbkc)) 21 mg TRANSDERM. DAILY [facility] Last Admin: 09/26/19 08:35 Dose: 21 mg Documented by: Nicotine (Nicoderm Cq (Pbkc)) 21 mg TRANSDERM. DAILY [facility] Last Admin: 09/26/19 09:43 Dose: Not Given Documented by: Nitroglycerin (Nitrostat) 0.4 mg SUBLINGUAL Q5M PRN PRN Reason: CARDIAC/CHEST PAIN Oxycodone HCl (Oxyir) 5 mg PO Q4H PRN PRN PRN Reason: Pain Score 4-5/10 Last Admin: 09/24/19 05:15 Dose: 5 mg Documented by: Oxycodone HCl (Oxyir) 10 mg PO Q4H PRN PRN PRN Reason: Pain Score 6-10/10 Last Admin: 09/26/19 10:37 Dose: 10 mg Documented by: Pantoprazole Sodium (Protonix) 40 mg PO DAILY [facility] Last Admin: 09/26/19 08:36 Dose: 40 mg Documented by: Polyethylene Glycol (Miralax) 17 gm PO DAILY [facility] Last Admin: 09/26/19 08:34 Dose: 17 gm Documented by: Prochlorperazine Edisylate (Compazine Iv) 5 mg IV Q4H PRN PRN PRN Reason: Breakthrough Nausea/Vomiting Psyllium Hydrophilic Mucilloid (Metamucil) 1 packet PO DAILY PRN PRN PRN Reason: Constipation Rosuvastatin Calcium (Crestor) 40 mg PO QHS [facility] Last Admin: 09/25/19 21:29 Dose: 40 mg Documented by: Senna/Docusate Sodium (Senokot-S, Salima-Colace) 2 tablet PO BID PRN PRN Reason: Constipation Sodium Chloride () 10 - 40 ml IV UD PRN PRN Reason: SALINE FLUSH Last Admin: 09/25/19 23:03 Dose: 10 ml Documented by: Throat Lozenges (Cepacol Sore Throat Lozenge) 1 lozenge MUCOUS MEM Q2H PRN PRN PRN Reason: SORE THROAT Assessment/Plan This patient was seen in conjunction with Alyssa Corbett NP. I have independently interviewed and examined the patient and reviewed pertinent historical, laboratory, and other data. Please refer to her note for patient's presentation, findings, and recommendations. Patient was seen and examined. He complains of feeling short of breath. Denies any fever or chills. No chest pain or dizziness or palpitations Vitals were reviewed -stable Physical Exam: Gen: Comfortable, not pale, not jaundiced, alert oriented x3 CVS:HS I +II, regular, no murmurs RESP: Diminished, wheezes plus plus GI: BS present and normal, nontender, no palpable organs EXT:No edema Labs reviewed: ASSESSMENT: 1. Acute COPD exacerbation 2. Acute on chronic systolic CHF/ischemic cardiomyopathy status post AICD, EF 15% 3. Hypertension 4. Hyperlipidemia 5. Nicotine dependence 6. CKD stage III 7. Type II DM 8. GERD 9. Elevated troponins Meds reviewed Plan: Appreciate cardiology follow-up Continue on oral Lasix, carvedilol Continue on IV Solu-Medrol and breathing treatments for now Will reassess tomorrow for possible discharge Code Visit Inpatient E&M: [id number] [facility] Hosp L2
[2019-09-26] MEDS: Furosemide 40 MG Tablet PO (16:31)
[2019-09-26 16:46] LABS: Bedside Glucose 164 mg/dL (70-110)
[2019-09-26] MEDS: Rosuvastatin 20 MG Tablet 40 MG PO (21:25)
[2019-09-26 21:35] LABS: Bedside Glucose 189 mg/dL (70-110)
[2019-09-27] VITALS (11 sets, daily range): BP systolic 108–136; BP diastolic 58–67; PULSE 66–98; RESP 18–22; TEMP 36.4–36.6; O2SAT 93–96
[2019-09-27] MEDS: oxyCODONE 5 MG Tablet 10 MG PO ×4 (01:29→14:10)
[2019-09-27] MEDS: Ipratropium/Albuterol Sulfate 3 ML AMPUL.NEB INHALATION ×4 (03:58→14:35)
[2019-09-27] MEDS: Levothyroxine 25 MCG TABLET PO (05:45)
[2019-09-27] MEDS: 0.9% Saline Lock 10 ML Syringe IV (05:47)
[2019-09-27] MEDS: Insulin Lispro 100 UNIT/ML INSULN.PEN SC ×2 (06:39→12:06)
[2019-09-27 06:45] LABS: Bedside Glucose 155 mg/dL (70-110)
--- NOTE | 2019-09-27 07:15 | PN.CARD_ITS ---
Subjectve: Patient seen and evaluated. Still somewhat short of breath. Objective: Vital Signs Temp Pulse Resp BP Pulse Ox 97.6 F L 71 18 108/58 L 96 09/27/19 05:40 09/27/19 05:40 09/27/19 05:40 09/27/19 05:40 09/27/19 05:40 Oxygen Flow Rate (L/min) 2 Oxygen Delivery Method Room Air Weight: 204 lb 2.369 oz Body Mass Index (BMI) 31.8 Finger Stick Blood Glucose 111 Intake and Output for Last 24 Hours 09/25/19 09/26/19 09/27/19 23:59 23:59 23:59 Intake Total 1395 / 1395 1460 / 1460 100 / 100 Output Total 2550 / 2550 2750 / 2750 1350 / 1350 Balance -1155 / -1155 -1290 / -1290 -1250 / -1250 General: Awake, Alert, Oriented x 3 HEENT: PERRL, EOMI, Sclera Non Icteric Neck: Supple, Good ROM, No Lymph Node Enlargement Lungs: Clear to auscultation Cardiovascular: Regular Rhythm, Normal S1, Normal S2, No Murmurs, No Rubs, No Gallops Vascular: No Carotid Bruits, Normal Femoral Pulses, Normal Radial Pulses, Normal Dorsalis Pedal Pulse, Normal Posterior Tibial Pulses Abdomen: Bowel Sounds Present, Soft, Non Tender, No HSM, No Organomegaly Extremities: No Cyanosis, No Clubbing, No edema Musculoskeletal: No Erythema Skin: No Rashes Lymphatic: No Lymph Node Enlargement Neurological: No Focal Motor or Sensory Deficit Psych/Mental Status: Appropriate 09/26/19 05:38: Hemoglobin A1c 6.8 H Rhythm: EKG: ECHO: Stress Test: Cardiac Cath: PCI: CT Surgery: Holter monitor: EPS: PPM: CXR: Chest CT Scan: Medical Necessity - Tobacco Use Smoking Status: Current every day smoker Tobacco Use: Cigarettes Assessment/Plan 1. Atherosclerotic coronary artery disease The patient underwent heart catheterization on 06/29/2019 that showed LVEF of 15- 20%, multivessel coronary artery disease with occluded [place] mid LAD, occluded [place] proximal RCA, occluded SVG to diagonal, occluded SVG to RCA, and occluded [place] to LAD. There was severe 85% stenosis in last main vessel of SVG LCx with widely patent SVG stents. He was transferred to [facility] for high risk PCI of SVG to . His echocardiogram demonstrated reduced ejection fraction. At this time I do not see a reason to pursue invasive approach to management. 2. Ischemic cardiomyopathy As noted above his heart catheterization June 2019 showed reduced ejection fraction 15-20%. He appears to be fairly euvolemic at this particular time. We will continue on his current medication. We may consider Entresto as an outpatient. I have added carvedilol to his regimen which will be titrated. He is also on a diuretic with Lasix 40 mg twice a day. 3. Status post ICD It does not appear that he follows routinely with [facility] pacemaker clinic. He states it has been over 1 year since last evaluated. He denies any symptoms concerning for electrical abnormality. He was strongly urged to reestablish on an outpatient basis. His ICD interrogation is noted to be normal. 4. Hyperlipidemia He will continue risk factor evaluation and care and medical management. 5. Hypertension He will continue evaluation care as deemed appropriate. 6. Tobacco abuse/COPD He has been counseled about the above. At this particular time he appears to be fairly stable and we should consider outpatient management. Thank you for allowing me to participate in the care of your patient. Please don't hesitate to call if any issues arise
[2019-09-27 09:01] LABS: Anion Gap 10 (5-15); BUN 54 mg/dL (7-18); BUN/Creat Ratio 35.5 RATIO (10-20); Calcium,Total 8.9 mg/dL (8.5-10.1); Chloride 102 mmol/L (98-107); Creatinine, Serum 1.52 mg/dL (0.70-1.30); EST Glomerular Filtration Rate 49 mL/min (>60); Est Glom Filt Rate - Afr Amer 59 mL/min (>60); Glucose 165 mg/dL (74-106); Potassium 4.2 mmol/L (3.5-5.1); Sodium Level 137 mmol/L (136-145)
[2019-09-27] MEDS: Furosemide 40 MG Tablet PO (09:31)
[2019-09-27] MEDS: Pantoprazole Sodium 40 MG Tablet PO (09:33)
[2019-09-27] MEDS: guaiFENesin 1,200 MG Tablet 1200 MG PO (09:34)
[2019-09-27] MEDS: Enoxaparin 40 MG/0.4 ML Syringe SC (09:35)
[2019-09-27] MEDS: Carvedilol 6.25 MG Tablet PO (09:36)
[2019-09-27] MEDS: Aspirin E.C. 81 MG Tablet PO (09:36)
[2019-09-27] MEDS: Allopurinol 300 MG Tablet PO (09:36)
[2019-09-27] MEDS: Clopidogrel Bisulfate 75 MG Tablet PO (09:36)
[2019-09-27] MEDS: Polyethylene Glycol 3350 17 GM PACKET PO (09:37)
[2019-09-27] MEDS: Lisinopril 2.5 MG Tablet PO (09:38)
[2019-09-27 11:46] LABS: Bedside Glucose 228 mg/dL (70-110)
--- NOTE | 2019-09-27 11:57 | DCINST_ITS ---
- Discharge Diagnoses Current Active Problems: Current Active and Chronic Problems (Last Reviewed 12/24/18 @ 14:09 by TISH Blankenship) Unstable angina (Acute) COPD exacerbation (Acute) You will use the following diet at home:: Cardiac, Fluid restricted (specify 2000 mls, 1500 mls) - 1500cc Discharge Activity: Return to Normal Activity Call your doctor if you observe: Shortness of breath, Dizziness, Fainting spells, Chest pain Allergies/Adverse Reactions: Allergies chlorpromazine HCl [From Thorazine] Allergy (Severe, Verified 09/07/19 14:56) Hives PER PATIENT tramadol HCl [From Ultram] Allergy (Severe, Verified 09/07/19 14:56) Hives PER PATIENT codeine Allergy (Intermediate, Verified 09/07/19 14:56) Hives atorvastatin Adverse Reaction (Intermediate, Verified 09/07/19 14:56) Other LEG PAIN/CRAMPS cyclobenzaprine [From Flexeril] Adverse Reaction (Verified 09/07/19 14:56) Upset Stomach metformin Adverse Reaction (Verified 09/07/19 14:56) Upset Stomach naproxen Adverse Reaction (Verified 09/07/19 14:56) Upset Stomach promethazine [From Phenergan] Adverse Reaction (Verified 09/07/19 14:56) Other CONFUSION Medications to take at Discharge Isosorbide Mononitrate [Imdur] 30 mg PO DAILY 02/18/17 Albuterol Aerosols [Ventolin Aerosols] 2.5 mg INHALATION Q4H PRN PRN 02/23/17 Pantoprazole Sodium [Protonix] 40 mg PO DAILY 11/15/17 Lisinopril [Zestril] 2.5 mg PO DAILY 05/21/18 Rosuvastatin Calcium [Crestor] 40 mg PO DAILY 06/16/18 Clopidogrel Bisulfate [Plavix] 75 mg PO DAILY 09/01/18 Allopurinol 300 mg PO DAILY 09/20/18 Nitroglycerin 0.4 mg SL PRN PRN 12/01/18 Nicotine [Nicoderm Cq] 21 mg TRANSDERM. DAILY patch 12/03/18 Aspirin [Aspir 81] 81 mg PO DAILY #1 tablet. 01/21/19 Albuterol Inhaler [Ventolin Hfa] 2 puff INHALATION Q4H PRN PRN 02/24/19 Oxycodone HCl/Acetaminophen [Oxycodon-Acetaminophen 7.5-325] 1 tab PO Q6H PRN 05/02/19 Carvedilol [Coreg (Beta Sina)] 6.25 mg PO BID #60 tab 09/27/19 Furosemide [Lasix] 40 mg PO BID@1000,1800 #60 tab 09/27/19 Glimepiride [Amaryl] 1 mg PO DAILY #30 tab 09/27/19 Levothyroxine [Synthroid] 25 mcg PO DAILY@0600 #30 tab 09/27/19 Prednisone See Taper PO DAILY #30 tab 09/27/19 The following prescriptions were given: Glimepiride [Amaryl] 1 mg PO DAILY #30 tab Transmission Status: Pending to [facility] [place] Carvedilol [Coreg (Beta Sina)] 6.25 mg PO BID #60 tab Transmission Status: Pending to [facility] [place] Furosemide [Lasix] 40 mg PO BID@1000,1800 #60 tab Transmission Status: Pending to [facility] [place] Prednisone See Taper PO DAILY #30 tab Transmission Status: Pending to [facility] [place] Levothyroxine [Synthroid] 25 mcg PO DAILY@0600 #30 tab Transmission Status: Pending to [facility] [place] Primary Care Physician: Juan De La Vega III, MD [Primary Care Provider] - Please follow up with your Primary Care Physician in: 1 Week Test Results: Test results from this visit will be discussed in further detail at your follow- up appointment, if applicable. Please Follow Up With: Richard Park NP-C When: 1-2 Weeks Proposed Discharge Date: 09/27/19
--- NOTE | 2019-09-27 12:18 | PCM.DC.SUM ---
<Alyssa Corbett - Last Filed: 09/27/19 12:47> Discharge Date and Diagnosis Date of Admission: 09/23/19 Date of Discharge: 09/27/19 - Primary Discharge Diagnosis Active and Suspected Problems (Last Reviewed 12/24/18 @ 14:09 by Marlene Robles NP-C) 1. Abnormal troponin with CAD status post CABG x4 and multiple stents 2. Acute on chronic systolic CHF/ischemic cardiomyopathy-status post AICD 3. Acute exacerbation of COPD 4. ARIADNA 5. Hypertension 6. Hyperlipidemia 7. Tobacco dependence 8. Chronic kidney disease stage III 9. Type 2 diabetes mellitus 10. GERD 11. Subclinical hypothyroidism - Secondary Discharge Diagnosis Chronic Problems (Last Reviewed 12/24/18 @ 14:09 by Marlene Robles NP-C) History of left heart catheterization (Chronic 06/29/19) LVEF: by LV gram 15-20 %; [place] Multivessel CAD; Occluded [place] mid LAD. Occluded [place] proximal RCA. Occluded SVG to DIAG. Occluded SVG to RCA. Occluded HUMPHREY to LAD. Severe 85% stenosis in last remaining vessel of SVG to LCX with widely patent SVG stents. Severe LV dysfunction. Referred for immediate PCI: Will tx to [facility] for high risk PCI to last remaining vessel of SVG to OM. 06/29/19 per DANA @ [facility] Hypoxia, sleep related (Chronic) Coarse tremors (Chronic) Headache (Chronic) COPD (chronic obstructive pulmonary disease) (Chronic) Obesity (BMI 30.0-34.9) (Chronic) Nicotine dependence (Chronic) Gout (Chronic) Degenerative cervical disc (Chronic) Chronic back pain (Chronic) Presence of automatic implantable cardioverter-defibrillator (Chronic) H/O coronary artery bypass surgery (Chronic ~2008) HUMPHREY-LAD, SVG-D1, SVG-OM Chronic renal failure, stage 3 (moderate) (Chronic) Chronic systolic (congestive) heart failure (Chronic) Stented coronary artery (Chronic ~12/2016) has had 7 stents as of 06/15/17 Ischemic cardiomyopathy (Chronic) 25% ejection fraction in November 2016 V-tach (Chronic) has an AICD Benign essential hypertension (Chronic) Gastroesophageal reflux disease (Chronic) Hyperlipidemia (Chronic) Type 2 diabetes mellitus (Chronic) Morbid obesity (Chronic) CAD (coronary artery disease) (Chronic) Hospital Course and Treatment Imaging Results: Diagnostic Data Chest X-Ray 09/25/19 10:43 IMPRESSION: Stable, nonacute x-ray examination of the chest. Electronically Signed: Christian Bauman MD ([place]) at 12:43 EST , Service support , Dr. Lay/Dr. Inman- Cardiology Operations: None Procedures: 2-D Echocardiogram Summary of Care Provided: The patient is a 69 year old M admitted 09/23/2019 due to shortness of breath. 1. Abnormal troponin with CAD status post CABG x4 and multiple stents-cardiology consulted during admission. Continue aspirin, statin, Plavix, beta-sina. Switch from metoprolol to carvedilol 6.25 mg twice daily per cardiology. Patient underwent heart cath 06/29/2019 which showed multivessel CAD with occluded [place] mid LAD, occluded [place] proximal RCA, occluded SVG to diagonal, occluded SVG to RCA, and occluded HUMPHREY to LAD. There was 85% stenosis in left main vessel of SVG LCx with widely patent SVG stents. He was transferred at that time to [facility] for high risk PCI of SVG to OM. Continue medical management. Follow-up with cardiology in 2 weeks. Patient may be a candidate for Entresto which will be evaluated by cardiology on an outpatient basis. 2. Acute on chronic systolic CHF/ischemic cardiomyopathy-status post AICD-continue aspirin, Plavix, statin, beta-sina. 1500 cc fluid restriction. Echocardiogram demonstrates EF 15%. Home Lasix regimen increased to 40 mg twice daily. 3. Acute exacerbation of COPD-respiratory panel negative. Oxygen stable on room air. Ambulatory pulse ox prior to discharge. Continue home aerosol regimen. Prednisone taper at discharge. 4. ARIADNA-continue home CPAP regimen. 5. Hypertension-continue lisinopril, metoprolol, isosorbide, carvedilol. 6. Hyperlipidemia-continue statin. 7. Tobacco dependence-encourage cessation. 8. Chronic kidney disease stage III-at baseline. 9. Type 2 diabetes mellitus-not previously on medication regimen. Hemoglobin A1c 6.8%. Initiated on glimepiride 1 mg daily with further outpatient titration. 10. GERD-continue PPI. 11. Subclinical hypothyroidism-TSH 0.24, free T4 0.81, free T3 2.6. Initiated on Synthroid 25 mcg daily. Recommend repeat TSH in 4 to 6 weeks by primary care provider. General: Alert, Oriented x3, Cooperative HEENT: Atraumatic, PERRLA, EOMI, Normocephalic Neck: Supple, No JVD, Negative Carotid Bruits Lungs: Diminished, Wheezes Cardiovascular: Regular rate, Regular Rhythm, Normal S1, Normal S2, No murmurs Abdomen: Bowel Sounds Present, Soft, Non Tender, Non-Distended Extremities: No clubbing, No cyanosis, No edema, Capillary Refill Less than 3 Seconds Skin: No rashes, No breakdown Musculoskeletal: No Tenderness to Palpation of Joints or Extremities Neurological: Cranial nerves II-XII grossly intact, Neuro grossly intact Psych/Mental Status: Anxious Patient seen and examined prior to discharge. Physical assessment as noted above. Patient is stable for discharge with follow up recommendations as noted above. This patient was seen by TISH Kerns under the supervision of Dr. Lara. - Physical Exam Vitals/I&O's: Vital Signs Temp Pulse Resp BP Pulse Ox 97.7 F L 82 22 H 136/65 H 96 09/27/19 09:21 09/27/19 09:21 09/27/19 11:31 09/27/19 09:21 09/27/19 09:21 Oxygen Flow Rate (L/min) 2 Oxygen Delivery Method Room Air Weight: 204 lb 2.369 oz Body Mass Index (BMI) 31.8 Finger Stick Blood Glucose 111 Intake and Output for Last 24 Hours 09/25/19 09/26/19 09/27/19 23:59 23:59 23:59 Intake Total 1395 / 1395 1460 / 1460 540 / 540 Output Total 2550 / 2550 2750 / 2750 1350 / 1350 Balance -1155 / -1155 -1290 / -1290 -810 / -810 Microbiology Past 72 Hours 09/23/19 15:24 Mucosa - Nasopharyngeal Respiratory Panel (PCR) - Final Laboratory Results 09/26/19 05:38: Hemoglobin A1c 6.8 H 09/26/19 12:30: POC Glucose 195 H 09/26/19 16:33: POC Glucose 164 H 09/26/19 21:22: POC Glucose 189 H 09/27/19 06:37: POC Glucose 155 H 09/27/19 08:32: Sodium 137, Potassium 4.2, Chloride 102, Carbon Dioxide 25.0, Anion Gap 10, BUN 54 H, Creatinine 1.52 H, Estim Creat Clear Calc 45.00, Est GFR (MDRD) Af Amer 59 L, Est GFR (MDRD) Non-Af 49 L, BUN/Creatinine Ratio 35.5 H, Glucose 165 H, Calcium 8.9 09/27/19 11:38: POC Glucose 228 H Current Medications Acetaminophen (Tylenol) 650 mg PO Q6H PRN PRN PRN Reason: Pain Score 1-10/Temp > 100.7 F Albuterol Sulfate (Ventolin Aerosols) 2.5 mg INHALATION Q2H PRN PRN PRN Reason: SOB/Wheezing Last Admin: 09/25/19 05:38 Dose: 2.5 mg Documented by: Albuterol/Ipratropium (Duoneb) 3 ml INHALATION Q4H.RT [facility] Last Admin: 09/27/19 11:31 Dose: 3 ml Documented by: Allopurinol (Zyloprim) 300 mg PO DAILY@0800 [facility] Last Admin: 09/27/19 09:36 Dose: 300 mg Documented by: Aspirin (Ecotrin) 81 mg PO DAILY@0800 [facility] Last Admin: 09/27/19 09:36 Dose: 81 mg Documented by: Carvedilol (Coreg) 6.25 mg PO BID [facility] Last Admin: 09/27/19 09:36 Dose: 6.25 mg Documented by: Clopidogrel Bisulfate (Plavix) 75 mg PO DAILY [facility] Last Admin: 09/27/19 09:36 Dose: 75 mg Documented by: Enoxaparin Sodium (Lovenox) 40 mg SC DAILY [facility] Last Admin: 09/27/19 09:35 Dose: 40 mg Documented by: Furosemide (Lasix) 40 mg PO BID@1000,1800 [facility] Last Admin: 09/27/19 09:31 Dose: 40 mg Documented by: Glucagon () 1 mg IM .X1 PRN PRN Reason: Hypoglycemia Guaifenesin (Mucinex) 1,200 mg PO BID [facility] Last Admin: 09/27/19 09:34 Dose: 1,200 mg Documented by: Sodium Chloride () 250 mls @ 15 mls/hr IV .[id number] PRN PRN Reason: Saline Flush Last Infusion: 09/24/19 08:58 Dose: Infused Documented by: Sodium Chloride () 250 mls @ 15 mls/hr IV .[id number] PRN PRN Reason: Additional IVPB Infusion Dextrose (Dextrose 10%-Water) 250 mls @ 999 mls/hr IV .Q16M PRN; Protocol PRN Reason: HYPOGLYCEMIA Insulin Glargine (Lantus ([facility])) 10 units SC BID [facility] Last Admin: 09/27/19 09:31 Dose: 10 u Documented by: Insulin Human Lispro (Humalog Kwikpen ([facility])) 0 unit SC ACHS [facility]; Protocol Last Admin: 09/27/19 12:06 Dose: 4 units Documented by: Levothyroxine Sodium (Synthroid) 25 mcg PO DAILY@0600 [facility] Last Admin: 09/27/19 05:45 Dose: 25 mcg Documented by: Lisinopril (Zestril) 2.5 mg PO DAILY [facility] Last Admin: 09/27/19 09:38 Dose: 2.5 mg Documented by: Melatonin (Melatonin) 3 mg PO QHS PRN PRN PRN Reason: INSOMNIA Last Admin: 09/25/19 23:02 Dose: 3 mg Documented by: Methylprednisolone (Solu-Medrol) 40 mg IV Q8 [facility] Last Admin: 09/27/19 05:45 Dose: 40 mg Documented by: Morphine Sulfate () 2 mg IV Q3H PRN PRN PRN Reason: Pain Score 6-10/10 Last Admin: 09/25/19 23:02 Dose: 2 mg Documented by: Nicotine (Nicoderm Cq ([facility])) 21 mg TRANSDERM. DAILY [facility] Last Admin: 09/27/19 09:33 Dose: 21 mg Documented by: Nitroglycerin (Nitrostat) 0.4 mg SUBLINGUAL Q5M PRN PRN Reason: CARDIAC/CHEST PAIN Oxycodone HCl (Oxyir) 5 mg PO Q4H PRN PRN PRN Reason: Pain Score 4-5/10 Last Admin: 09/24/19 05:15 Dose: 5 mg Documented by: Oxycodone HCl (Oxyir) 10 mg PO Q4H PRN PRN PRN Reason: Pain Score 6-10/10 Last Admin: 09/27/19 09:42 Dose: 10 mg Documented by: Pantoprazole Sodium (Protonix) 40 mg PO DAILY [facility] Last Admin: 09/27/19 09:33 Dose: 40 mg Documented by: Polyethylene Glycol (Miralax) 17 gm PO DAILY [facility] Last Admin: 09/27/19 09:37 Dose: 17 gm Documented by: Prochlorperazine Edisylate (Compazine Iv) 5 mg IV Q4H PRN PRN PRN Reason: Breakthrough Nausea/Vomiting Psyllium Hydrophilic Mucilloid (Metamucil) 1 packet PO DAILY PRN PRN PRN Reason: Constipation Rosuvastatin Calcium (Crestor) 40 mg PO QHS [facility] Last Admin: 09/26/19 21:25 Dose: 40 mg Documented by: Senna/Docusate Sodium (Senokot-S, Salima-Colace) 2 tablet PO BID PRN PRN Reason: Constipation Sodium Chloride () 10 - 40 ml IV UD PRN PRN Reason: SALINE FLUSH Last Admin: 09/27/19 05:47 Dose: 10 ml Documented by: Throat Lozenges (Cepacol Sore Throat Lozenge) 1 lozenge MUCOUS MEM Q2H PRN PRN PRN Reason: SORE THROAT Discharge Diet: 8 Cup Fluid Restriciton, 2000 mg Sodium Diet Discharge Activity: Return to Normal Activity Call your doctor if you observe: Shortness of breath, Dizziness, Fainting spells, Chest pain Home Medications: Medications to take at Discharge Isosorbide Mononitrate [Imdur] 30 mg PO DAILY 02/18/17 Albuterol Aerosols [Ventolin Aerosols] 2.5 mg INHALATION Q4H PRN PRN 02/23/17 Pantoprazole Sodium [Protonix] 40 mg PO DAILY 11/15/17 Lisinopril [Zestril] 2.5 mg PO DAILY 05/21/18 Rosuvastatin Calcium [Crestor] 40 mg PO DAILY 06/16/18 Clopidogrel Bisulfate [Plavix] 75 mg PO DAILY 09/01/18 Allopurinol 300 mg PO DAILY 09/20/18 Nitroglycerin 0.4 mg SL PRN PRN 12/01/18 Nicotine [Nicoderm Cq] 21 mg TRANSDERM. DAILY patch 12/03/18 Aspirin [Aspir 81] 81 mg PO DAILY #1 tablet. 01/21/19 Albuterol Inhaler [Ventolin Hfa] 2 puff INHALATION Q4H PRN PRN 02/24/19 Oxycodone HCl/Acetaminophen [Oxycodon-Acetaminophen 7.5-325] 1 tab PO Q6H PRN 05/02/19 Carvedilol [Coreg (Beta Sina)] 6.25 mg PO BID #60 tab 09/27/19 Furosemide [Lasix] 40 mg PO BID@1000,1800 #60 tab 09/27/19 Glimepiride [Amaryl] 1 mg PO DAILY #30 tab 09/27/19 Levothyroxine [Synthroid] 25 mcg PO DAILY@0600 #30 tab 09/27/19 Prednisone See Taper PO DAILY #30 tab 09/27/19 Following Prescrptions Were Given to Patient: Glimepiride [Amaryl] 1 mg PO DAILY #30 tab Transmission Status: Received by [facility] [place] Carvedilol [Coreg (Beta Sina)] 6.25 mg PO BID #60 tab Transmission Status: Received by [facility] [place] Furosemide [Lasix] 40 mg PO BID@1000,1800 #60 tab Transmission Status: Received by [facility] [place] Prednisone See Taper PO DAILY #30 tab Transmission Status: Received by [facility] [place] Levothyroxine [Synthroid] 25 mcg PO DAILY@0600 #30 tab Transmission Status: Received by [facility] [place] Primary Care Physician: Juan De La Vega III, MD [Primary Care Provider] - Please follow up with your Primary Care Physician in: 1 Week Please Follow Up With: Richard Park NP-C When: 1-2 Weeks Disposition: Home Minutes spent on discharge:: 35 Patient Condition:: Stable Medical Necessity - Tobacco Use Smoking Status: Current every day smoker Tobacco Use: Cigarettes Meaningful Use Info Meaningful Use Diagnoses (Choose all that apply): None applicable <[place] - Last Filed: 09/28/19 08:41> Discharge Date and Diagnosis - Secondary Discharge Diagnosis Chronic Problems (Last Reviewed 12/24/18 @ 14:09 by TISH Blankenship) History of left heart catheterization (Chronic 06/29/19) LVEF: by LV gram 15-20 %; [place] Multivessel CAD; Occluded [place] mid LAD. Occluded [place] proximal RCA. Occluded SVG to DIAG. Occluded SVG to RCA. Occluded HUMPHREY to LAD. Severe 85% stenosis in last remaining vessel of SVG to LCX with widely patent SVG stents. Severe LV dysfunction. Referred for immediate PCI: Will tx to [facility] for high risk PCI to last remaining vessel of SVG to OM. 06/29/19 per DANA @ [facility] Hypoxia, sleep related (Chronic) Coarse tremors (Chronic) Headache (Chronic) COPD (chronic obstructive pulmonary disease) (Chronic) Obesity (BMI 30.0-34.9) (Chronic) Nicotine dependence (Chronic) Gout (Chronic) Degenerative cervical disc (Chronic) Chronic back pain (Chronic) Presence of automatic implantable cardioverter-defibrillator (Chronic) H/O coronary artery bypass surgery (Chronic ~2008) HUMPHREY-LAD, SVG-D1, SVG-OM Chronic renal failure, stage 3 (moderate) (Chronic) Chronic systolic (congestive) heart failure (Chronic) Stented coronary artery (Chronic ~12/2016) has had 7 stents as of 06/15/17 Ischemic cardiomyopathy (Chronic) 25% ejection fraction in November 2016 V-tach (Chronic) has an AICD Benign essential hypertension (Chronic) Gastroesophageal reflux disease (Chronic) Hyperlipidemia (Chronic) Type 2 diabetes mellitus (Chronic) Morbid obesity (Chronic) CAD (coronary artery disease) (Chronic) Hospital Course and Treatment Summary of Care Provided: This patient was seen in conjunction with Alyssa Corbett NP. I have independently interviewed and examined the patient and reviewed pertinent historical, laboratory, and other data. Please refer to her note for patient's presentation, findings, and recommendations. The patient is a 69 year old M with past medical history of CAD status post CABG, status post stents, with chronic systolic CHF/ischemic cardiomyopathy status post AICD who comes in with complaints of shortness of breath and found to have elevated troponins. Patient was managed as acute on chronic systolic CHF. 2D echo shows an EF of 50%. He was seen by cardiology. Patient initially on IV Lasix and transition to oral Lasix. He was also managed as acute COPD exacerbation per respiratory panel was negative. Patient was managed on IV steroids, breathing treatments. He continued to improve. He was evaluated for oxygen on the day of discharge and did not qualify for it. He was discharged home on Lasix p.o. 40 mg twice daily, prednisone taper, breathing treatments. He will follow-up with cardiology within 2 weeks. He would need repeat blood work done within a week. Day of discharge, patient was seen and examined. He appears anxious, was worried about the state of his heart and his lungs. Reassurance were given. Asked him to take all his medications and follow-up with his doctors. Physical Exam: Gen: Comfortable, not pale, not jaundiced, alert oriented x3 CVS:HS I +II, regular, no murmurs RESP: Diminished, occasional wheezes GI: BS present and normal, nontender, no palpable organs EXT:No edema - Physical Exam Vitals/I&O's: Vital Signs Temp Pulse Resp BP Pulse Ox 97.5 F L 98 18 119/67 94 09/27/19 15:27 09/27/19 15:27 09/27/19 15:27 09/27/19 15:27 09/27/19 15:27 Oxygen Flow Rate (L/min) 2 Oxygen Delivery Method Room Air Weight: 92.6 kg Body Mass Index (BMI) 31.8 Finger Stick Blood Glucose 111 Intake and Output for Last 24 Hours 09/26/19 09/27/19 09/28/19 23:59 23:59 23:59 Intake Total 1460 / 1460 540 / 540 Output Total 2750 / 2750 1350 / 1350 Balance -1290 / -1290 -810 / -810 Laboratory Results 09/27/19 08:32: Sodium 137, Potassium 4.2, Chloride 102, Carbon Dioxide 25.0, Anion Gap 10, BUN 54 H, Creatinine 1.52 H, Estim Creat Clear Calc 45.00, Est GFR (MDRD) Af Amer 59 L, Est GFR (MDRD) Non-Af 49 L, BUN/Creatinine Ratio 35.5 H, Glucose 165 H, Calcium 8.9 09/27/19 11:38: POC Glucose 228 H Code Visit Inpatient E&M: 15808 Disch Hosp
[2019-09-27] MEDS: Acetaminophen 325 MG Tablet 650 MG PO (12:28)
--- NOTE | 2019-09-28 15:45 | CASEMGMT ---
DC DATE: 09.27.2019 DC DISPOSITION: Home DC DIAGNOSIS: COPD exacerbation LACE/STRATA: 16/ F/U APPTS MADE PRIOR TO DC: YES PRESCRIPTIONS ACQUIRED BY PT: yes. Intro role of CM to patient's . Pt was sleeping. Pt's states he is not being compliant with his fluid restriction. states pt is allowed to drink 2000 ml. Reviewed instructions with her including recommendation was for 1500 ml per day. states she has cups to measure from the hospital. states she tries to tell pt to monitor fluid and weight, however he has not. will continue to encourage him to monitor weight and fluids. LEONIE CM let know pt has appt on Thursday, and his PCP can reinforce instructions and evaluate how pt is doing. - states pharmacy had to call hospital for Prednisone taper. This took over an hour. Pt now has all prescriptions. Frankie SAUCEDO RN ACM
== END 2019-09-27 15:26 | disposition home or self-care (01) | DRG 291 ==
LOC: ED 09:16 → ICU 11:06 → PCU 09-26 07:18 → ICU 09-26 07:24 → PCU 09-26 07:26
PROVIDERS: Admitting Provider Internal Medicine; Emergency Provider Emergency Medicine; PCP Family Medicine; Visit Provider Internal Medicine
DX: I13.0 Hypertensive heart and chronic kidney disease with heart failure and stage 1 through stage 4 chronic kidney disease, or unspecified chronic kidney disease (principal); I50.23 Acute on chronic systolic (congestive) heart failure; J44.1 Chronic obstructive pulmonary disease with (acute) exacerbation; I25.810 Atherosclerosis of coronary artery bypass graft(s) without angina pectoris; Z95.810 Presence of automatic (implantable) cardiac defibrillator; N18.3 Chronic kidney disease, stage 3 (moderate); E11.22 Type 2 diabetes mellitus with diabetic chronic kidney disease; I25.10 Atherosclerotic heart disease of native coronary artery without angina pectoris; Z95.1 Presence of aortocoronary bypass graft; Z95.5 Presence of coronary angioplasty implant and graft; Z79.02 Long term (current) use of antithrombotics/antiplatelets; Z79.82 Long term (current) use of aspirin; E78.5 Hyperlipidemia, unspecified; F17.210 Nicotine dependence, cigarettes, uncomplicated; I25.5 Ischemic cardiomyopathy; G47.33 Obstructive sleep apnea (adult) (pediatric); K21.9 Gastro-esophageal reflux disease without esophagitis; E03.9 Hypothyroidism, unspecified; M10.9 Gout, unspecified; R79.9 Abnormal finding of blood chemistry, unspecified
CPT/HCPCS: 36415; 71045; 71046; 80048; 80061; 81001; 82803; 82962; 83036; 83605; 83735; 83880; 84100; 84439; 84443; 84481; 84484; 85025; 85610; 85730; 87633; 87641; 93005; 93306; 94640; 94667; 94668; 99251; 99285; J7030; J7050; Q9957; A4216; C8929; G0463; J1940

== ENCOUNTER 2019-10-19 13:28 | Inpatient (IN) | payer MEDICARE, MEDICAID, SELFPAY ==
[2019-10-05 10:04] VITALS: BMI 31.8
[2019-10-19] VITALS (19 sets, daily range): BP systolic 91–143; BP diastolic 48–84; PULSE 76–94; RESP 14–26; TEMP 36.4–36.8; O2SAT 91–100; BMI 31.4; BMI 30.2; BMI 30.3
--- NOTE | 2019-10-19 13:37 | RAD_ITS ---
STUDY: X-RAY CHEST REASON FOR EXAM: Male, 69 years old. WORSENING DYSPNEA, COUGH, WEAKNESS. HX OF CHF TECHNIQUE: Single AP portable view of the chest. COMPARISON: Comparison is made with prior study dated September 25, 2019. FINDINGS: EKG electrodes are seen. Stable mild increased markings at the lung bases suggestive of mild degree of scarring. There is no demonstrated pleural abnormality. Sternal cerclage wires and vascular clips are present from a prior sternotomy and coronary artery bypass graft procedure (CABG). A left-sided dual-chamber pacemaker is seen. Normal mediastinum and serjio. Normal visualized pulmonary arteries. There is atherosclerotic tortuosity of the aortic arch and descending thoracic aorta. Normal visualized thoracic spine. Normal visualized ribs, clavicles, and shoulders. There is no demonstrated abnormality of the visualized soft tissue structures of the upper abdomen. RAD/Chest 1 View IMPRESSION: Mild increased markings at the lung bases suggestive of a mild degree of bibasilar scarring. Electronically Signed: Arcenio Leary, at 14:39 EDT , Service support ,
--- NOTE | 2019-10-19 13:47 | ED.VIS.GEN ---
History of Present Illness Chief Complaint: Shortness of Breath Informant: Patient Onset: Days Context: Gradual Onset Timing: Continuous Narrative: Is a 69-year-old male with history of coronary artery disease, COPD, CHF, hyperlipidemia and hypertension presented with worsening shortness of breath. Patient is in the past week he has had cough and shortness of breath. He states today symptoms were so bad he felt like he was going to . He states he has chest pain that he describes as discomfort associated with breathing. She denies any weight gain or swelling of his legs. He has had associated runny nose. He denies any fever or chills. Chart review shows the patient is actually had an 8 pound weight loss in the past 2 weeks. No other complaints or concerns at this time. Recent Illness/Hospitalization: Yes - CHF exacerbation 1 month ago Past Medical History - Allergies and Home Meds Allergies/Adverse Reactions: Allergies chlorpromazine HCl [From Thorazine] Allergy (Severe, Verified 10/19/19 13:30) Hives PER PATIENT tramadol HCl [From Ultram] Allergy (Severe, Verified 10/19/19 13:30) Hives PER PATIENT codeine Allergy (Intermediate, Verified 10/19/19 13:30) Hives atorvastatin Adverse Reaction (Intermediate, Verified 10/19/19 13:30) Other LEG PAIN/CRAMPS cyclobenzaprine [From Flexeril] Adverse Reaction (Verified 10/19/19 13:30) Upset Stomach metformin Adverse Reaction (Verified 10/19/19 13:30) Upset Stomach naproxen Adverse Reaction (Verified 10/19/19 13:30) Upset Stomach promethazine [From Phenergan] Adverse Reaction (Verified 10/19/19 13:30) Other CONFUSION Primary Care Physician: Juan De La Vega III, MD [Primary Care Provider] - Prior records reviewed: Yes Past Medical History: - - CHF, COPD, cardiomyopathy, hypertension, hyperlipidemia, coronary artery disease Surgical History: angioplasty - stents x10, coronary bypass surgery, - - AICD placement, back surgery x 2, hernia repair Smoking Status: Current every day smoker - Family History Paternal Family History: Family History (Last Reviewed 10/07/19 @ 07:06 by NEFTALI Evangelista) Brother CAD (coronary artery disease) Myocardial infarction Sudden cardiac Mother Cancer Hypertension Father Cancer COPD (chronic obstructive pulmonary disease) Family History: Reports: Cancer, Heart Disease Maternal Family History: Family History (Last Reviewed 10/07/19 @ 07:06 by NEFTALI Evangelista) Brother CAD (coronary artery disease) Myocardial infarction Sudden cardiac Mother Cancer Hypertension Father Cancer COPD (chronic obstructive pulmonary disease) Family History: Reports: - - Patient notes a paternal family history of chronic lung disease, lung cancer with history of tobacco use. Review of Systems General: Reports: Malaise. Denies: Chills, Fever, Sweats Eyes: Denies: Visual changes - bilaterally, Diplopia ENT: Reports: Rhinorrhea. Denies: Sore throat Cardiovascular: Reports: Chest pain. Denies: Palpitations Respiratory: Reports: Dyspnea, Cough, Dyspnea on exertion. Denies: Sputum Gastrointestinal: Denies: Abdominal pain, Nausea, Vomiting, Diarrhea, Melena, Hematochezia Genitourinary: Denies: Dysuria, Hematuria, Frequency Musculoskeletal: Denies: Back pain, Swelling, Extremity Pain Skin: Denies: Rash, Wounds Neurological: Denies: Headache, Weakness, Numbness Physical Exam Vital Signs/Narrative: Vital Signs Temp Pulse Resp BP Pulse Ox 10/19/19 13:28 98.2 F 87 20 H 91/48 L 91 Inital Vital Signs reviewed: Yes General: Well nourished, Well developed, No Acute Distress Head: Normocephalic, Atraumatic Eyes: Perrl, EOMI ENT: Moist mucous membranes, No rhinorrhea Neck: Supple, Nontender, No JVD Cardiovascular: Regular rate, Regular rhythm, No murmurs. Negative for: Murmur Respiratory: Chest nontender, Rhonchi - diffuse, Diminished - bases, - - Tachypnea. Negative for: No distress Abdomen: Soft, Nontender, Nondistended, Normal bowel sounds Back: Nontender, Normal Inspection Extremities: Nontender, No edema Skin: Normal color, No rash Neurological: Alert, Oriented x3, Cranial nerves II-XII grossly intact, Normal Strength, Normal Sensation Psychological: Normal affect, Normal Mood Diagnostic/Tx/Re-eval Chest X-Ray - ED: 1 View, Read by ED Physician, Read by Radiologist, No Acute Disease Clinical Impression(s) from Imaging Studies Chest X-Ray 10/19/19 13:37 IMPRESSION: Mild increased markings at the lung bases suggestive of a mild degree of bibasilar scarring. Electronically Signed: Arcenio Leary, at 14:39 EDT , Service support , Chest CT 10/19/19 14:43 IMPRESSION: Mild increased markings at the lung bases suggestive of mild linear scarring. Mild emphysematous changes slightly worse in the right upper lobe. Electronically Signed: Arcenio Leary, at 15:26 EDT , Service support , Laboratory Data 10/19/19 10/19/19 10/19/19 13:45 13:45 13:45 WBC 6.6 RBC 4.76 Hgb 14.1 Hct 43.2 MCV 90.8 MCH 29.6 MCHC 32.6 RDW Std Deviation 46.6 H RDW Coeff of Maggie 14.0 Plt Count 234 MPV 9.0 Immature Gran % (Auto) 0.500 Neut % (Auto) 67.5 Lymph % (Auto) 20.4 [place] % (Auto) 9.2 Eos % (Auto) 2.1 Baso % (Auto) 0.3 Absolute Neuts (auto) 4.5 Absolute Lymphs (auto) 1.35 Nucleated RBC % 0 Sodium 138 Potassium 4.2 Chloride 103 Carbon Dioxide 29.0 Anion Gap 6 BUN 21 H Creatinine 1.21 Estim Creat Clear Calc 56.53 Est GFR (MDRD) Af Amer 77 Est GFR (MDRD) Non-Af 63 BUN/Creatinine Ratio 17.4 Glucose 104 Lactic Acid 1.2 Calcium 8.8 Troponin I < 0.015 B-Natriuretic Peptide 10/19/19 13:45 WBC RBC Hgb Hct MCV MCH MCHC RDW Std Deviation RDW Coeff of Maggie Plt Count MPV Immature Gran % (Auto) Neut % (Auto) Lymph % (Auto) [place] % (Auto) Eos % (Auto) Baso % (Auto) Absolute Neuts (auto) Absolute Lymphs (auto) Nucleated RBC % Sodium Potassium Chloride Carbon Dioxide Anion Gap BUN Creatinine Estim Creat Clear Calc Est GFR (MDRD) Af Amer Est GFR (MDRD) Non-Af BUN/Creatinine Ratio Glucose Lactic Acid Calcium Troponin I B-Natriuretic Peptide 135.5 H - Rhythm Strip Rhythm Strip: Sinus Rhythm Rate: 89 Ectopy: None - EKG Initial EKG Interpretation: Sinus Rhythm, - - Sinus rhythm at a rate of 89 ID interval 144 QRS 112 QTc 484 Normal axis T wave inversions in lateral leads, no reciprocal changes - Medical Decision Making Admitted for worsening shortness of breath and chest tightness. He states he feels like he is because of his symptoms. Patient is hemodynamically stable but he is borderline hypoxic. It just at rest patient is 81% on room air but has increased work of breathing and seems uncomfortable. Patient does not seem to be a CHF exacerbation as he does not have JVD, peripheral edema and is actually had a weight loss of 8 pounds over the past 2 weeks. I suspect patient has more of a COPD exacerbation. Because of the current coronavirus pandemic, patient is given an HFA albuterol treatment instead of aerosol. His flu swab is negative. CT of the chest as well as chest x-ray did not show any acute process. Patient does not have diffuse groundglass opacities or other findings consistent with severe respiratory infection. Patient's troponin is normal. He is not having dynamic EKG changes. I do not suspect ACS at this time. His proBNP is actually below his baseline. I do think patient would benefit from treatment for likely COPD exacerbation especially given how symptomatic he is. He is given Solu-Medrol in the emergency room. Case is discussed with Dr. Lyla Swanson. ED Disposition - Plan for ED Patient: Disposition: Acute Care Hospital [facility] Diagnosis: COPD exacerbation, Chest pain Referrals: Juan De La Vega III, MD [Primary Care Provider] -
[2019-10-19 13:56] LABS: Absolute Lymphocyte Count 1.35 X10^3/uL (0.83-4.51); Absolute Neutrophil Count 4.5 X10^3/uL (2.0-7.7); Basophil# 0.02 X10^3/uL; Basophil% 0.3 % (0-1); Eosinophil# 0.14 X10^3/uL; Eosinophils% 2.1 % (0-5); Hematocrit 43.2 % (40-54); Hemoglobin 14.1 g/dL (13.0-16.5); Lymphocyte # 1.35 X10^3/ul (4.0); Lymphocyte % 20.4 % (19-41); Mean Corp Hgb Conc 32.6 g/dL (32-36); Mean Corpuscular Hgb 29.6 pg (27.0-32.0); Mean Corpuscular Volume 90.8 fL (80-94); Monocyte# 0.61 X10^3/uL; Monocyte% 9.2 % (0-10); NRBC Flagged by Analyzer 0 % (0-5); Neutrophil # 4.46 X10^3/uL (2.7-7.7); Neutrophil % 67.5 % (47-70); Platelet Count 234 K/mm3 (150-450); RBC Distribution Width SD 46.6 fl (35.1-43.9); Red Blood Count 4.76 M/mm3 (4.6-6.2); White Blood Count 6.6 K/mm3 (4.4-11.0)
[2019-10-19 14:17] LABS: Anion Gap 6 (5-15); BUN 21 mg/dL (7-18); BUN/Creat Ratio 17.4 RATIO (10-20); Calcium,Total 8.8 mg/dL (8.5-10.1); Chloride 103 mmol/L (98-107); Creatinine, Serum 1.21 mg/dL (0.70-1.30); EST Glomerular Filtration Rate 63 mL/min (>60); Est Glom Filt Rate - Afr Amer 77 mL/min (>60); Estimated Creatinine Clearance 56.53 ml/min; Glucose 104 mg/dL (74-106); Potassium 4.2 mmol/L (3.5-5.1); Sodium Level 138 mmol/L (136-145)
[2019-10-19 14:19] LABS: BNP,B-Type NATRIURETIC PEPTIDE 135.5 pg/mL (0-100)
[2019-10-19 14:24] LABS: Lactic Acid 1.2 mmol/L (0.4-1.9)
--- NOTE | 2019-10-19 14:43 | CT_ITS ---
STUDY: CT CHEST WITHOUT CONTRAST REASON FOR EXAM: Male, 69 years old. PT STATED WORSENING SHORT OF BREATH, HX OF COPD, HTN, CHF, CAD, DB, CP, HYPOTENSION RADIATION DOSAGE (If Supplied By Facility): CTDIvol = ( 16.35 ) mGy, DLP = ( 608.71 ) mGycm TECHNIQUE: Transaxial imaging was performed without the administration of intravenous contrast material. Multiplanar coronal and sagittal images were reformatted. Individualized dose optimization techniques were used for this CT. COMPARISON: Comparison is made with prior study dated October 07, 2018. FINDINGS: A left-sided double-lumen pacemaker is seen. Mild degree of a emphysematous changes in the upper lobes with bleb formation worse in the right upper lobe. Minimal increased markings at the lung bases suggestive of bibasilar scarring. Calcified granuloma in the right upper lobe. There is no demonstrated pleural abnormality. Sternal cerclage wires and vascular clips are present from a prior sternotomy and coronary artery bypass graft procedure (CABG). There are calcifications of the coronary arteries. There are multiple small lymph nodes within the mediastinum, which are normal in size and morphology most compatible with reactive lymph hyperplasia. Normal hilar regions. Normal unenhanced pulmonary arteries. There is atherosclerotic calcification of the aortic arch with tortuosity and elongation of the aortic arch and descending thoracic aorta. There are mild degenerative changes of the thoracic spine. There is no demonstrated abnormality of the visualized upper abdomen. CT/Chest without Contrast IMPRESSION: Mild increased markings at the lung bases suggestive of mild linear scarring. Mild emphysematous changes slightly worse in the right upper lobe. Electronically Signed: Arcenio Leary, at 15:26 EDT , Service support ,
--- NOTE | 2019-10-19 15:46 | NURSING ---
PCU WHITE COPD EXAC, CP
--- NOTE | 2019-10-19 15:48 | HP.PCM_ITS ---
Problem List (1) Acute respiratory failure Status: Acute Qualifiers: Respiratory failure complication: unspecified whether with hypoxia or hypercapnia Qualified Code(s): J96.00 - Acute respiratory failure, unspecified whether with hypoxia or hypercapnia (2) COPD exacerbation Status: Acute (3) Suspected 2019-nCoV infection Status: Acute (4) Chest pain Status: Acute Qualifiers: Chest pain type: unspecified Qualified Code(s): R07.9 - Chest pain, unspecified (5) ARIADNA (obstructive sleep apnea) Status: Suspected (6) COPD (chronic obstructive pulmonary disease) Status: Chronic Qualifiers: COPD type: unspecified COPD (7) Obesity (BMI 30.0-34.9) Status: Chronic (8) Nicotine dependence Status: Chronic Qualifiers: Nicotine product type: other Substance use status: in remission Qualified Code(s): F17.291 - Nicotine dependence, other tobacco product, in remission (9) Degenerative cervical disc Status: Chronic (10) Chronic back pain Status: Chronic Qualifiers: Back pain location: back pain in unspecified location Back pain laterality: unspecified Qualified Code(s): M54.9 - Dorsalgia, unspecified; G89.29 - Other chronic pain (11) Presence of automatic implantable cardioverter-defibrillator Status: Chronic (12) H/O coronary artery bypass surgery Status: Chronic Comment: HUMPHREY-LAD, SVG-D1, SVG-OM (13) Chronic renal failure, stage 3 (moderate) Status: Chronic (14) Chronic systolic (congestive) heart failure Status: Chronic (15) Ischemic cardiomyopathy Status: Chronic Comment: 25% ejection fraction in November 2016 (16) V-tach Status: Chronic Comment: has an AICD (17) Benign essential hypertension Status: Chronic (18) Gastroesophageal reflux disease Status: Chronic Qualifiers: Esophagitis presence: esophagitis presence not specified (19) Hyperlipidemia Status: Chronic Qualifiers: Hyperlipidemia type: unspecified Qualified Code(s): E78.5 - Hyperlipidemia, unspecified (20) Type 2 diabetes mellitus Status: Chronic Qualifiers: Diabetes mellitus local intermodal truck driver insulin use: without local intermodal truck driver use Diabetes mellitus complication status: with other specified complication Qualified Code(s): E11.69 - Type 2 diabetes mellitus with other specified complication (21) Morbid obesity Status: Chronic (22) CAD (coronary artery disease) Status: Chronic Qualifiers: Coronary Disease-Associated Artery/Lesion type: unspecified vessel or lesion type [place] vs. transplanted heart: unspecified whether [place] or transplanted heart Associated angina: angina presence unspecified Qualified Code(s): I25.10 - Atherosclerotic heart disease of [place] coronary artery without angina pectoris History of Present Illness Date of Admission: 10/19/19 Chief Complaint: Dyspnea, cough, chest pain The patient is a 69 y/o M w/ PMHx: CAD s/p CABG and PCI x 10, Diabetes mellitus type II, Obesity, HTN, HLD, Chronic COPD, Tobacco use history, Chronic Back Pain, Chronic Systolic CHF/Ischemic Cardiomyopathy, Hx VT s/p AICD placement, PVD w/ chronic claudication, CKD stage III (baseline Cr 1.6) who presented initially 06/29/19 and was discharged following COPD exacerbation, NSTEMI w/ transfer to [facility] for high risk PCI at that time who then re-presented to the [facility] on 09/23/19, remained with discharge on 09/27/19 w/ treatment for elevated cardiac enzymes, recurrent COPD exacerbation, CHF exacerbation who now re-presents to [facility] ED on 10/19/19, referred per his [employer] with concern for CHF exacerbation although patient denies edema, orthopnea or weight gain and instead notes 8 lb weight loss recently and history of onset upper cramping, 5/10 abdominal pain ~ 4-5 days prior with loose stools which resolved but then onset fatigue, malaise, arthralgia, myalgia, dry ongoing cough and progressively worsening dyspnea with chest tightness ongoing, constant x 3 days, rated 7/10 in severity, described as if someone was squeezing his lungs and heart from the inside. Work-up in the ED included T 97.9, heart rate 83, BP 143/57 although did initially decrease down to 99/62, respiratory rate in the 20s although upon evaluation concerning for near 30s, 96% on 2 L nasal cannula, increased work of breathing evident, CBC with WC 6.6, hemoglobin 14.1, platelet 234 with no shift, BG requested following patient evaluation and not severe appearing with pH 7.43, bicarb 27.6, O2 97, PCO2 41.3, PO2 91, BMP with BUN/creatinine 21/1.21, troponin less than 0.015, lactic acid 1.2, BNP 135.5, negative rapid influenza, blood culture x2 pending per ED, chest x-ray with mild increased markings at the lung bases suggestive of mild bibasilar scarring, follow-up CT chest with mild increased markings at the lung bases suggestive of mild linear scarring with mild emphysematous changes slightly worse in the right upper lobe, EKG with sinus rhythm with stable ST-T wave changes with no acute evidence of ischemia. In the ED patient ministered Solu-Medrol, fentanyl, aspirin, albuterol pro-air. Initial discussions for transition to a PCU status given chest tightness concurrently with recent stents however upon evaluation had significant increased work of breathing and ABG as noted was requested although not severe appearing. Given patient history and concerning story concern for possible fatigue and decline therefore will admit to the ICU. Past Medical History Past Medical History (Chronic Problems): Chronic Problems (Last Reviewed 10/07/19 @ 07:06 by NEFTALI Evangelista) History of left heart catheterization (Chronic 06/29/19) LVEF: by LV gram 15-20 %; [place] Multivessel CAD; Occluded [place] mid LAD. Occluded [place] proximal RCA. Occluded SVG to DIAG. Occluded SVG to RCA. Occluded HUMPHREY to LAD. Severe 85% stenosis in last remaining vessel of SVG to LCX with widely patent SVG stents. Severe LV dysfunction. Referred for immediate PCI: Will tx to [facility] for high risk PCI to last remaining vessel of SVG to OM. 06/29/19 per DANA @ [facility] Hypoxia, sleep related (Chronic) Coarse tremors (Chronic) Headache (Chronic) COPD (chronic obstructive pulmonary disease) (Chronic) Obesity (BMI 30.0-34.9) (Chronic) Nicotine dependence (Chronic) Gout (Chronic) Degenerative cervical disc (Chronic) Chronic back pain (Chronic) Presence of automatic implantable cardioverter-defibrillator (Chronic) H/O coronary artery bypass surgery (Chronic ~2008) HUMPHREY-LAD, SVG-D1, SVG-OM Chronic renal failure, stage 3 (moderate) (Chronic) Chronic systolic (congestive) heart failure (Chronic) Stented coronary artery (Chronic ~12/2016) has had 7 stents as of 06/15/17 Ischemic cardiomyopathy (Chronic) 25% ejection fraction in November 2016 V-tach (Chronic) has an AICD Benign essential hypertension (Chronic) Gastroesophageal reflux disease (Chronic) Hyperlipidemia (Chronic) Type 2 diabetes mellitus (Chronic) Morbid obesity (Chronic) CAD (coronary artery disease) (Chronic) Medical History: Medical History (Last Reviewed 10/07/19 @ 07:06 by NEFTALI Evangelista) Nicotine dependence (Chronic) F17.200 Gout (Chronic) M10.9 Degenerative cervical disc (Chronic) M50.30 Chronic back pain (Chronic) M54.9, G89.29 Chronic renal failure, stage 3 (moderate) (Chronic) N18.3 Chronic systolic (congestive) heart failure (Chronic) I50.22 Ischemic cardiomyopathy (Chronic) I25.5 25% ejection fraction in November 2016 V-tach (Chronic) I47.2 has an AICD Benign essential hypertension (Chronic) I10 Gastroesophageal reflux disease (Chronic) K21.9 Hyperlipidemia (Chronic) E78.5 Type 2 diabetes mellitus (Chronic) E11.9 Morbid obesity (Chronic) E66.01 CAD (coronary artery disease) (Chronic) I25.10 Tubular adenoma of colon (Inactive) D12.6 Allergies chlorpromazine HCl [From Thorazine] Allergy (Severe, Verified 10/19/19 13:30) Hives PER PATIENT tramadol HCl [From Ultram] Allergy (Severe, Verified 10/19/19 13:30) Hives PER PATIENT codeine Allergy (Intermediate, Verified 10/19/19 13:30) Hives atorvastatin Adverse Reaction (Intermediate, Verified 10/19/19 13:30) Other LEG PAIN/CRAMPS cyclobenzaprine [From Flexeril] Adverse Reaction (Verified 10/19/19 13:30) Upset Stomach metformin Adverse Reaction (Verified 10/19/19 13:30) Upset Stomach naproxen Adverse Reaction (Verified 10/19/19 13:30) Upset Stomach promethazine [From Phenergan] Adverse Reaction (Verified 10/19/19 13:30) Other CONFUSION Home Medications: Ambulatory Orders Medication Instructions Recorded Isosorbide Mononitrate [Imdur] 30 mg PO DAILY 02/18/17 Albuterol Aerosols [Ventolin 2.5 mg INHALATION Q4H PRN PRN 02/23/17 Aerosols] Pantoprazole Sodium [Protonix] 40 mg PO DAILY 11/15/17 Lisinopril [Zestril] 2.5 mg PO DAILY 05/21/18 Rosuvastatin Calcium [Crestor] 40 mg PO DAILY 06/16/18 Clopidogrel Bisulfate [Plavix] 75 mg PO DAILY 09/01/18 Allopurinol 300 mg PO DAILY 09/20/18 Nitroglycerin 0.4 mg SL PRN PRN 12/01/18 Albuterol Inhaler [Ventolin Hfa] 2 puff INHALATION Q4H PRN PRN 02/24/19 Oxycodone HCl/Acetaminophen 1 tab PO Q6H PRN 05/02/19 [Oxycodon-Acetaminophen 7.5-325] aspirin 325 mg tablet,delayed 325 mg PO DAILY 10/05/19 release spironolactone 25 mg tablet 25 mg PO DAILY 10/05/19 Carvedilol [Coreg (Beta Sina)] 6.25 mg PO BID 10/19/19 Furosemide [Lasix] 40 mg PO BID@1000,1800 10/19/19 Glimepiride [Amaryl] 1 mg PO DAILY 10/19/19 Levothyroxine [Synthroid] 25 mcg PO DAILY@0600 10/19/19 Sertraline HCl [Zoloft] 50 mg PO DAILY 10/19/19 Surgical History: Surgical History (Last Reviewed 10/07/19 @ 07:06 by NEFTALI Evangelista) History of left heart catheterization (Chronic) Onset Date: 06/29/19 Z98.890 LVEF: by LV gram 15-20 %; [place] Multivessel CAD; Occluded [place] mid LAD. Occluded [place] proximal RCA. Occluded SVG to DIAG. Occluded SVG to RCA. Occluded HUMPHREY to LAD. Severe 85% stenosis in last remaining vessel of SVG to LCX with widely patent SVG stents. Severe LV dysfunction. Referred for immediate PCI: Will tx to [facility] for high risk PCI to last remaining vessel of SVG to OM. 06/29/19 per DANA @ [facility] Presence of automatic implantable cardioverter-defibrillator (Chronic) Z95.810 H/O coronary artery bypass surgery (Chronic) Onset Date: ~2008 Z95.1 HUMPHREY-LAD, SVG-D1, SVG-OM Stented coronary artery (Chronic) Onset Date: ~12/2016 has had 7 stents as of 06/15/17 Hx of hernia repair (Inactive) Z98.890, Z87.19 Previous back surgery (Inactive) Z98.890 Surgical History: angioplasty - stents x 10, coronary bypass surgery, - - AICD placement, back surgery x 2, hernia repair, PCI. Psychiatric History: No pertinent psych hx Lives: Spouse/ Significant Other Smoking Status: Current every day smoker - Patient with market attempts for tobacco cessation, using nicotine patch high-dose with ongoing 1 to 4 cigarettes daily. Tobacco Use: Cigarettes Alcohol: Sober - Sober x26 years. Drugs: None - *Family History Paternal Family History: Family History (Last Reviewed 10/07/19 @ 07:06 by NEFTALI Evangelista) Brother CAD (coronary artery disease) Myocardial infarction Sudden cardiac Mother Cancer Hypertension Father Cancer COPD (chronic obstructive pulmonary disease) History Items: Cancer, Heart Disease Maternal Family History: Family History (Last Reviewed 10/07/19 @ 07:06 by NEFTALI Evangelista) Brother CAD (coronary artery disease) Myocardial infarction Sudden cardiac Mother Cancer Hypertension Father Cancer COPD (chronic obstructive pulmonary disease) History Items: - - Patient notes a paternal family history of chronic lung disease, lung cancer with history of tobacco use. Review of Systems Constitutional: Reports: Anorexia, Malaise, Weakness, Fatigue. Denies: Chills, Fever, Weight Change HEENT: Denies: Head Aches, Sinus Congestion, Sinus Drainage Cardiovascular: Reports: Chest Pain, Chest Tightness. Denies: Chest Pressure, Edema, Heaviness, Light Headedness, Orthopnea, Palpitations, Syncope Respiratory: Reports: Cough, Shortness of Breath, Shortness of breath at rest, Shortness of breath upon exertion, Wheezing. Denies: Sputum production Gastrointestinal: Reports: Abdominal Pain, Diarrhea, Nausea. Denies: Vomiting Genitourinary: Denies: Dysuria Musculoskeletal: Reports: Back Pain, Joint Pain, Muscle pain. Denies: Joint Tenderness Skin: Denies: Rash, Wounds Neurological: Denies: Numbness, Tingling, Focal weakness Psychiatric: Reports: Anxiety, Depression. Denies: Homicidal Ideations, Suicidal Ideations Hematologic/ Lymphatic: Reports: Easy Bruising, Easy Bleeding VTE Information - Inpt Only VTE Present on Admission: No VTE Mechan Device Prophylaxis: SCD's VTE Pharm Prophylaxis ordered?: Yes Patient Problems: Active and Suspected Problems (Last Reviewed 10/07/19 @ 07:06 by NEFTALI Evangelista) Chest pain (Acute) Acute respiratory failure (Acute) Suspected 2019-nCoV infection (Acute) COPD exacerbation (Acute) Subjective: Seated upright in the ED bed, fatigued, ill-appearing, increased respiratory rate, mild respiratory distress evident. Objective: Physical Examination: General: awake, alert, oriented x 3 and cooperative, seated upright in the ED bed, fatigued and ill-appearing, increased work of breathing, some accessory muscle usage and conversational dyspnea. Skin: normal color, turgor, no icterus, cyanosis. HEENT: AT/NC, EOMI, PERRLA, mask in place, no carotid bruits or JVD noted. Lungs: Diminished breath sounds throughout, greater bases, increased respiratory rate, increased work of breathing, some accessory muscle usage, conversational dyspnea, mild end expiratory wheezing, no specific rales or rhonchi. Heart: Regular rate and rhythm; no gallop, rub audible. Abdomen: soft, obese, mild discomfort to bilateral upper quadrant palpation but not severe with no rebound or guarding, ND, mildly hyperactive BS, no HSM. Extremities: no cyanosis, clubbing, or edema. Neurological: patient awake, alert, oriented x 3; cognitive function appears near baseline intact; pupils equally reactive to light and accomodation; cranial nerves II-XII grossly normal, moving all 4 extremities, no focal deficits, strength severely global decrease secondary to acute presentation. Psychiatric: affect appears fatigued, ill-appearing, no acute evidence of depressive or anxiety feelings. - Physical Exam Vitals/I&O's: Vital Signs Temp Pulse Resp BP Pulse Ox 97.6 F L 87 14 107/63 97 10/19/19 15:00 10/19/19 15:21 10/19/19 15:21 10/19/19 15:00 10/19/19 15:00 Oxygen Flow Rate (L/min) 3 Oxygen Delivery Method Nasal Cannula Weight: 207 lb Body Mass Index (BMI) 31.4 Finger Stick Blood Glucose 111 Microbiology Past 72 Hours 10/19/19 13:45 Mucosa - Nose Influenza Types A,B Direct FA (PAT) - Final Laboratory Results 10/19/19 13:45: WBC 6.6, RBC 4.76, Hgb 14.1, Hct 43.2, MCV 90.8, MCH 29.6, MCHC 32.6, RDW Std Deviation 46.6 H, RDW Coeff of Maggie 14.0, Plt Count 234, MPV 9.0, Immature Gran % (Auto) 0.500, Neut % (Auto) 67.5, Lymph % (Auto) 20.4, [place] % (Auto) 9.2, Eos % (Auto) 2.1, Baso % (Auto) 0.3, Absolute Neuts (auto) 4.5, A bsolute Lymphs (auto) 1.35, Nucleated RBC % 0 10/19/19 13:45: Sodium 138, Potassium 4.2, Chloride 103, Carbon Dioxide 29.0, Anion Gap 6, BUN 21 H, Creatinine 1.21, Estim Creat Clear Calc 56.53, Est GFR (MDRD) Af Amer 77, Est GFR (MDRD) Non-Af 63, BUN/Creatinine Ratio 17.4, Glucose 104, Calcium 8.8, Troponin I < 0.015 10/19/19 13:45: Lactic Acid 1.2 10/19/19 13:45: B-Natriuretic Peptide 135.5 H Assessment/Plan All Active Problems (Last Reviewed 10/07/19 @ 07:06 by NEFTALI Evangelista) Chest pain (Acute) Acute respiratory failure (Acute) Suspected 2019-nCoV infection (Acute) Unstable angina (Acute) COPD exacerbation (Acute) COPD exacerbation (Resolved) Cardiac enzymes elevated (Resolved) The patient is a 69 y/o M w/ PMHx: CAD s/p CABG and PCI x > 10, Diabetes mellitus type II, Obesity, HTN, HLD, Chronic COPD, Tobacco use history, Chronic Back Pain, Chronic Systolic CHF/Ischemic Cardiomyopathy, Hx VT s/p AICD placement, PVD w/ chronic claudication, CKD stage III who presented initially 06/29/19 and was discharged following COPD exacerbation, NSTEMI w/ transfer to [facility] for high risk PCI at that time who then re-presented to the [facility] on 09/23/19, remained with discharge on 09/27/19 w/ treatment for elevated cardiac enzymes, recurrent COPD exacerbation, CHF exacerbation who now re-presents to the [facility] ED on 10/19/19, referred per his [employer] with history of onset upper cramping, 5/10 abdominal pain ~ 4-5 days prior with loose stools which resolved but then onset fatigue, malaise, arthralgia, myalgia, dry ongoing cough and progressively worsening dyspnea with chest tightness ongoing, constant x 3 days, rated 7/10 in severity, described as if someone was squeezing his lungs and heart from the inside. 1. Acute Hypoxic Respiratory Failure (Increased work of breathing, accessory muscle usage, evidence distress) secondary to Acute on chronic COPD exacerbation suspected secondary to Acute Viral Syndrome, Possible COVID 19: As noted given patient respiratory status with evidence of mild distress upon ED evaluation although ABG not market will admit to the ICU and closely monitor, consider transition to second floor if clinically improved overnight, request copy coordinator consultation, obtain respiratory viral panel, maintain on oxygen with wean as tolerated to room air, continue ATC duonebs, PRN albuterol, IV methylprednisolone, HOB, IS parameters, IV rocephin and azithromycin per discussion with ID as some concern for possible COVID-19. Following 24-48 hour re-evaluation and respiratory viral panel may consider testing at that time and de-escalate abx therapy if appropriate. Requested sputum Cx, urine antigens and repeat CXR in AM. 2. Chest Pain/tightness with Recent PCI, CAD: Will place on a monitored bed to assure no acute myocardial infarction with serial cardiac enzymes and EKGs. ASA, NG, morphine. Updated patient [employer], Dr. Inman and if any concerning cardiac findings may add consultation. 3. Chronic Systolic CHF/Ischemic Cardiomyopathy: Noted concern initially for exacerbation; however, reporting weight loss, no marked edema or orthopnea, BNP not marked elevated, given presentation will be judicious about IVF usage, status post AICD placement, will continue aspirin, Plavix, statin, beta-sina, spironolactone and BEHZAD inhibitor. 4. Hypertension: Continue home regimen including Lasix, Imdur, isosorbide, metoprolol, spironolactone, BEHZAD inhibitor with hold parameters, PRN hydralazine. 5. Hyperlipidemia: Continue home statin regimen. 6. Tobacco Abuse: Encouraged cessation, inpatient consultation per RT, NR if desired. 7. CKD stage III: Admission BUN/Cr 21/1.21, baseline 1.6, repeat BMP in AM. 8. Diabetes mellitus type II: Hold oral home regimen, ADA diet, accu checks w/ ISS. 9. Anxiety and depression: We will continue patient home Zoloft regimen. 10. Hx VT: s/p AICD placement. 11. GERD: Continue home PPI. 12. DVT Prophylaxis: SCDs, therapeutic lovenox. 13. CODE status: Patient does not have a healthcare power of litigation attorney or living will set up. During prior admissions have encouraged patient to set these items up as he is and notes that he and his spouse have discussed these items and I have also discussed this with him and his family on prior admissions especially as he has voiced avoidance of any jail supportive care. Again, discussed CODE status at length including difference between FULL code, DNR-CCA and DNR-CC status. Following discussions about the differences in these status, requested Full Code status. Advanced Care Planning Face to Face Time: 16 minutes. Inpatient E&M: 13345 Init Hosp L3 Procedures: 79283 Advncd Care Plan 30 Min
[2019-10-19] MEDS: MethylPREDNISolone 125 MG/2 ML Vial IV (16:09)
[2019-10-19] MEDS: Aspirin 325 MG Tablet PO (16:09)
[2019-10-19] MEDS: fentaNYL 100 MCG/2 ML Ampul 25 MCG IV (16:11)
[2019-10-19 16:25] LABS: Base Excess 3 mmol/L (-2 to +2); Bicarbonate 27.6 mmol/L (22-26); Blood Gas Specimen Type ART; O2 Delivery Device Nasal Can; PO2 91 mmHG (75-100); SITE R Brachial; SO2 97 % (95-99); Time Given 1618; Total Carbon Dioxide 29 mmol/L; pCO2 41.3 mmHg (35-45); pH 7.43 (7.35-7.45)
--- NOTE | 2019-10-19 16:40 | NURSING ---
ICU 6
--- NOTE | 2019-10-19 16:53 | EKG12_ITS ---
Test Reason : ADMISSION EKG Blood Pressure : / mmHG Vent. Rate : 082 BPM Atrial Rate : 082 BPM P-R Int : 164 ms QRS Dur : 120 ms QT Int : 426 ms P-R-T Axes : 068 -19 139 degrees QTc Int : 497 ms Normal sinus rhythm Incomplete left bundle branch block ST & T wave abnormality, consider lateral ischemia Abnormal ECG When compared with ECG of 24-SEP-2019 03:23, No significant change was found Confirmed by SHAVONNE LUNDBERG, LISA ([id number]), editorial specialist LANDRY YARBROUGH ([id number]) on 10/20/2019 1:49:19 PM Referred By: AMBROSIO Confirmed By:LISA MARVIN MD
[2019-10-19] MEDS: Morphine 2 MG/ML Syringe IV (18:02)
[2019-10-19] MEDS: Ceftriaxone 1 GM/50 ML BAG IV (18:03)
[2019-10-19 18:06] LABS: Magnesium 1.9 mg/dL (1.6-2.6)
[2019-10-19] MEDS: Furosemide 40 MG Tablet PO (18:40)
[2019-10-19] MEDS: Ipratropium/Albuterol Sulfate 3 ML AMPUL.NEB INHALATION (19:00)
[2019-10-19] MEDS: Carvedilol 6.25 MG Tablet PO (22:46)
[2019-10-19] MEDS: Insulin Lispro 100 UNIT/ML INSULN.PEN SC (22:46)
[2019-10-19] MEDS: 0.9% Saline Lock 10 ML Syringe IV (22:46)
[2019-10-19] MEDS: Rosuvastatin 20 MG Tablet 40 MG PO (22:48)
[2019-10-19] MEDS: oxyCODONE 5 MG Tablet 7.5 MG PO (22:57)
[2019-10-19 23:11] LABS: Bedside Glucose 210 mg/dL (70-110)
[2019-10-20] VITALS (27 sets, daily range): BP systolic 102–132; BP diastolic 44–76; PULSE 70–95; RESP 13–22; TEMP 36.6–36.9; O2SAT 89–97
[2019-10-20] MEDS: Ipratropium/Albuterol Sulfate 3 ML AMPUL.NEB INHALATION ×5 (00:34→19:40)
[2019-10-20] MEDS: Levothyroxine 25 MCG TABLET PO (05:19)
[2019-10-20 05:25] LABS: Absolute Lymphocyte Count 0.51 X10^3/uL (0.83-4.51); Absolute Neutrophil Count 2.6 X10^3/uL (2.0-7.7); Hemoglobin 13.1 g/dL (13.0-16.5); Lymphocyte # 0.51 X10^3/ul (4.0); Lymphocyte % 16.1 % (19-41); Mean Corp Hgb Conc 33.6 g/dL (32-36); Mean Corpuscular Volume 89.2 fL (80-94); Mean Platelet Vol. 9.2 fl (6.2-12.0); Monocyte# 0.04 X10^3/uL; Monocyte% 1.3 % (0-10); NRBC Flagged by Analyzer 0 % (0-5); Neutrophil # 2.61 X10^3/uL (2.7-7.7); Neutrophil % 82.6 % (47-70); POSITIVE DIFFERENTIAL YES; Platelet Count 222 K/mm3 (150-450); RBC Distribution Width CV 13.7 % (11.6-14.6); RBC Distribution Width SD 45.3 fl (35.1-43.9); Red Blood Count 4.37 M/mm3 (4.6-6.2); White Blood Count 3.2 K/mm3 (4.4-11.0)
[2019-10-20 05:29] LABS: Differential Indicated SCAN CRITERIA MET
[2019-10-20 05:44] LABS: Differential Comment SCANNED
--- NOTE | 2019-10-20 05:55 | RAD_ITS ---
STUDY: X-RAY CHEST REASON FOR EXAM: Male, 69 years old. COUGH AND DYSPNEA TECHNIQUE: Single AP portable view of the chest. COMPARISON: Comparison is made with prior study dated October 19, 2019. FINDINGS: EKG electrodes are seen. Mild increased markings at the left lung base suggests of left basilar atelectasis and/or scarring. Blunting of the left costophrenic angle. Sternal cerclage wires and vascular clips are present from a prior sternotomy and coronary artery bypass graft procedure (CABG). A left-sided dual-chamber pacemaker is seen. Normal mediastinum and serjio. Normal visualized pulmonary arteries. There is atherosclerotic tortuosity of the aortic arch and descending thoracic aorta. Normal visualized thoracic spine. Normal visualized ribs, clavicles, and shoulders. There is no demonstrated abnormality of the visualized soft tissue structures of the upper abdomen. RAD/Chest 1 View (Portable) IMPRESSION: Mild increased markings at the left lung base suggestive of left basilar atelectasis and/or scarring with blunting of the left costophrenic angle. Electronically Signed: Arcenio Leary, at 8:15 EDT , Service support ,
--- NOTE | 2019-10-20 05:55 | EKG12_ITS ---
Test Reason : AM EKG Blood Pressure : / mmHG Vent. Rate : 072 BPM Atrial Rate : 072 BPM P-R Int : 168 ms QRS Dur : 132 ms QT Int : 456 ms P-R-T Axes : 063 -21 146 degrees QTc Int : 499 ms Normal sinus rhythm Non-specific intra-ventricular conduction block T wave abnormality, consider lateral ischemia Abnormal ECG Confirmed by SHAVONNE LUNDBERG, LISA ([id number]), general expeditor LANDRY YARBROUGH ([id number]) on 10/20/2019 1:48:53 PM Referred By: AMBROSIO Confirmed By:LISA MARVIN MD
[2019-10-20 05:58] LABS: Anion Gap 9 (5-15); BUN 26 mg/dL (7-18); BUN/Creat Ratio 24.3 RATIO (10-20); Calcium,Total 8.6 mg/dL (8.5-10.1); Chloride 105 mmol/L (98-107); Creatinine, Serum 1.07 mg/dL (0.70-1.30); EST Glomerular Filtration Rate 73 mL/min (>60); Est Glom Filt Rate - Afr Amer 88 mL/min (>60); Estimated Creatinine Clearance 66.07 ml/min; Glucose 186 mg/dL (74-106); Potassium 4.5 mmol/L (3.5-5.1); Sodium Level 139 mmol/L (136-145)
[2019-10-20] MEDS: oxyCODONE 5 MG Tablet 7.5 MG PO (06:49)
--- NOTE | 2019-10-20 06:55 | PCM.CON.CC ---
Reason for Consult Date of Consultation: 10/20/19 Reason for Consultation: Acute respiratory failure, COPD with exacerbation History of Present Illness: The patient is a 69-year-old male, with a history as outlined below, who presented to the emergency department on October 18 with complaints of shortness of breath and cough. The patient had just been seen in the cardiology clinic earlier in the day due to a history of coronary artery disease status post CABG. The patient also has an ICD in place. He was just admitted to the hospital in August 2019 with shortness of breath and was also noted to have an elevated troponin at that time. The patient was medically managed with Lasix. The patient also has a history of mild obstructive lung disease based upon pulmonary function studies from July 2017. The patient has a long-standing tobacco abuse history, having smoked 1 pack per day ?57 years. He quit completely in June 2017. The patient's last surface echocardiogram completed in August 2019 revealed severe segmental systolic dysfunction with an ejection fraction of 15%. On presentation to the emergency department, the patient was noted to be afebrile with a blood pressure of 91/48 mmHg. Initial laboratory evaluation revealed no evidence of a leukocytosis. Chemistry profile was unremarkable. Arterial blood gas obtained on 2 L/min via nasal cannula revealed a pH of 7.43 with a corresponding PCO2 of 41 and PO2 of 91. BNP was only mildly elevated to 135. Troponin was negative. A CT chest without contrast was obtained and revealed emphysematous changes in the upper lobes without focal infiltrate or groundglass changes. The patient was given aerosolized bronchodilators and IV steroids. He was subsequently admitted to the medical intensive care unit for further management. The patient was also placed empirically on azithromycin and ceftriaxone. Overnight, the patient has remained hemodynamically stable. His repeat CBC with differential this morning did reveal lymphopenia. He is currently maintaining appropriate oxygen saturations on 1 L/min via nasal cannula. This morning, the patient continues to report the presence of significant shortness of breath, nonproductive cough, pleuritic type chest pain, generalized malaise and fatigue. Past Medical History Past Medical History (Chronic Problems): Chronic Problems (Last Reviewed 10/07/19 @ 07:06 by NEFTALI Evangelista) History of left heart catheterization (Chronic 06/29/19) LVEF: by LV gram 15-20 %; [place] Multivessel CAD; Occluded [place] mid LAD. Occluded [place] proximal RCA. Occluded SVG to DIAG. Occluded SVG to RCA. Occluded HUMPHREY to LAD. Severe 85% stenosis in last remaining vessel of SVG to LCX with widely patent SVG stents. Severe LV dysfunction. Referred for immediate PCI: Will tx to [facility] for high risk PCI to last remaining vessel of SVG to OM. 06/29/19 per DANA @ [facility] Hypoxia, sleep related (Chronic) Coarse tremors (Chronic) Headache (Chronic) COPD (chronic obstructive pulmonary disease) (Chronic) Obesity (BMI 30.0-34.9) (Chronic) Nicotine dependence (Chronic) Gout (Chronic) Degenerative cervical disc (Chronic) Chronic back pain (Chronic) Presence of automatic implantable cardioverter-defibrillator (Chronic) H/O coronary artery bypass surgery (Chronic ~2008) HUMPHREY-LAD, SVG-D1, SVG-OM Chronic renal failure, stage 3 (moderate) (Chronic) Chronic systolic (congestive) heart failure (Chronic) Stented coronary artery (Chronic ~12/2016) has had 7 stents as of 06/15/17 Ischemic cardiomyopathy (Chronic) 25% ejection fraction in November 2016 V-tach (Chronic) has an AICD Benign essential hypertension (Chronic) Gastroesophageal reflux disease (Chronic) Hyperlipidemia (Chronic) Type 2 diabetes mellitus (Chronic) Morbid obesity (Chronic) CAD (coronary artery disease) (Chronic) Medical History: Medical History (Last Reviewed 10/07/19 @ 07:06 by NEFTALI Evangelista) Nicotine dependence (Chronic) F17.200 Gout (Chronic) M10.9 Degenerative cervical disc (Chronic) M50.30 Chronic back pain (Chronic) M54.9, G89.29 Chronic renal failure, stage 3 (moderate) (Chronic) N18.3 Chronic systolic (congestive) heart failure (Chronic) I50.22 Ischemic cardiomyopathy (Chronic) I25.5 25% ejection fraction in November 2016 V-tach (Chronic) I47.2 has an AICD Benign essential hypertension (Chronic) I10 Gastroesophageal reflux disease (Chronic) K21.9 Hyperlipidemia (Chronic) E78.5 Type 2 diabetes mellitus (Chronic) E11.9 Morbid obesity (Chronic) E66.01 CAD (coronary artery disease) (Chronic) I25.10 Tubular adenoma of colon (Inactive) D12.6 Allergies chlorpromazine HCl [From Thorazine] Allergy (Severe, Verified 10/19/19 13:30) Hives PER PATIENT tramadol HCl [From Ultram] Allergy (Severe, Verified 10/19/19 13:30) Hives PER PATIENT codeine Allergy (Intermediate, Verified 10/19/19 13:30) Hives atorvastatin Adverse Reaction (Intermediate, Verified 10/19/19 13:30) Other LEG PAIN/CRAMPS cyclobenzaprine [From Flexeril] Adverse Reaction (Verified 10/19/19 13:30) Upset Stomach metformin Adverse Reaction (Verified 10/19/19 13:30) Upset Stomach naproxen Adverse Reaction (Verified 10/19/19 13:30) Upset Stomach promethazine [From Phenergan] Adverse Reaction (Verified 10/19/19 13:30) Other CONFUSION Home Medications: Ambulatory Orders Medication Instructions Recorded Isosorbide Mononitrate [Imdur] 30 mg PO DAILY 02/18/17 Albuterol Aerosols [Ventolin 2.5 mg INHALATION Q4H PRN PRN 02/23/17 Aerosols] Pantoprazole Sodium [Protonix] 40 mg PO DAILY 11/15/17 Lisinopril [Zestril] 2.5 mg PO DAILY 05/21/18 Rosuvastatin Calcium [Crestor] 40 mg PO DAILY 06/16/18 Clopidogrel Bisulfate [Plavix] 75 mg PO DAILY 09/01/18 Allopurinol 300 mg PO DAILY 09/20/18 Nitroglycerin 0.4 mg SL PRN PRN 12/01/18 Albuterol Inhaler [Ventolin Hfa] 2 puff INHALATION Q4H PRN PRN 02/24/19 Oxycodone HCl/Acetaminophen 1 tab PO Q6H PRN 05/02/19 [Oxycodon-Acetaminophen 7.5-325] aspirin 325 mg tablet,delayed 325 mg PO DAILY 10/05/19 release spironolactone 25 mg tablet 25 mg PO DAILY 10/05/19 Carvedilol [Coreg (Beta Sina)] 6.25 mg PO BID 10/19/19 Furosemide [Lasix] 40 mg PO BID@1000,1800 10/19/19 Glimepiride [Amaryl] 1 mg PO DAILY 10/19/19 Levothyroxine [Synthroid] 25 mcg PO DAILY@0600 10/19/19 Sertraline HCl [Zoloft] 50 mg PO DAILY 10/19/19 Surgical History: Surgical History (Last Reviewed 10/07/19 @ 07:06 by NEFTALI Evangelista) History of left heart catheterization (Chronic) Onset Date: 06/29/19 Z98.890 LVEF: by LV gram 15-20 %; [place] Multivessel CAD; Occluded [place] mid LAD. Occluded [place] proximal RCA. Occluded SVG to DIAG. Occluded SVG to RCA. Occluded HUMPHREY to LAD. Severe 85% stenosis in last remaining vessel of SVG to LCX with widely patent SVG stents. Severe LV dysfunction. Referred for immediate PCI: Will tx to [facility] for high risk PCI to last remaining vessel of SVG to OM. 06/29/19 per DANA @ [facility] Presence of automatic implantable cardioverter-defibrillator (Chronic) Z95.810 H/O coronary artery bypass surgery (Chronic) Onset Date: ~2008 Z95.1 HUMPHREY-LAD, SVG-D1, SVG-OM Stented coronary artery (Chronic) Onset Date: ~12/2016 has had 7 stents as of 06/15/17 Hx of hernia repair (Inactive) Z98.890, Z87.19 Previous back surgery (Inactive) Z98.890 Surgical History: angioplasty - stents x 10, coronary bypass surgery, - - AICD placement, back surgery x 2, hernia repair, PCI. Psychiatric History: No pertinent psych hx Lives: Spouse/ Significant Other Smoking Status: Current every day smoker Tobacco Use: Cigarettes Alcohol: Sober - Sober x26 years. Drugs: None - *Family History Paternal Family History: Family History (Last Reviewed 10/07/19 @ 07:06 by NEFTALI Evangelista) Brother CAD (coronary artery disease) Myocardial infarction Sudden cardiac Mother Cancer Hypertension Father Cancer COPD (chronic obstructive pulmonary disease) History Items: Cancer, Heart Disease Maternal Family History: Family History (Last Reviewed 10/07/19 @ 07:06 by NEFTALI Evangelista) Brother CAD (coronary artery disease) Myocardial infarction Sudden cardiac Mother Cancer Hypertension Father Cancer COPD (chronic obstructive pulmonary disease) History Items: - - Patient notes a paternal family history of chronic lung disease, lung cancer with history of tobacco use. Review of Systems Constitutional: Reports: Malaise, Fatigue. Denies: Chills, Fever Eyes: Denies: Blurred vision, Double vision HEENT: Denies: Head Aches, Sinus Congestion, Sinus Drainage Cardiovascular: Denies: Chest Pain, Palpitations Respiratory: Reports: Cough, Pleuritic Pain, Shortness of Breath Gastrointestinal: Denies: Abdominal Pain, Nausea, Vomiting Genitourinary: Denies: Dysuria Musculoskeletal: Reports: Back Pain. Denies: Joint Pain, Joint Tenderness Skin: Denies: Rash, Wounds Neurological: Denies: Numbness, Tingling, Focal weakness Psychiatric: Denies: Anxiety, Depression, Homicidal Ideations, Suicidal Ideations Hematologic/ Lymphatic: Denies: Easy Bruising, Easy Bleeding Patient Problems: Active and Suspected Problems (Last Reviewed 10/07/19 @ 07:06 by NEFTALI Evangelista) Chest pain (Acute) Acute respiratory failure (Acute) Suspected 2019-nCoV infection (Acute) COPD exacerbation (Acute) Objective: The patient's most recent lab work, culture data and imaging studies have all been personally reviewed. Respiratory viral panel was negative. - Physical Exam Vitals/I&O's: Vital Signs Temp Pulse Resp BP Pulse Ox 98.3 F 77 19 H 121/75 H 94 10/20/19 05:00 10/20/19 06:00 10/20/19 06:00 10/20/19 06:00 10/20/19 06:00 Oxygen Flow Rate (L/min) 1 Oxygen Delivery Method Nasal Cannula Weight: 201 lb 11.567 oz Body Mass Index (BMI) 30.2 Finger Stick Blood Glucose 111 Intake and Output for Last 24 Hours 10/18/19 10/19/19 10/20/19 23:59 23:59 23:59 Intake Total 955 / 955 240 / 240 Output Total 550 / 550 800 / 800 Balance 405 / 405 -560 / -560 General: Alert, Oriented x3, Cooperative, No apparent distress HEENT: Atraumatic, PERRLA, Normocephalic Oral: No Gingival or Mucosal Lesions/ Ulcerations Neck: Supple, No Nodes, Trachea Midline Lungs: No rhonchi, No rales, Diminished, Wheezes Cardiovascular: Regular rate, Regular Rhythm, Normal S1 Abdomen: Bowel Sounds Present, Soft, Non Tender, Non-Distended Extremities: No clubbing, No cyanosis, No edema Skin: No breakdown Musculoskeletal: No Tenderness to Palpation of Joints or Extremities Lymphatic: No Cervical, Supraclavicular, or Inguinal Adenopathy Neurological: Cranial nerves II-XII grossly intact, Neuro grossly intact Psych/Mental Status: Alert and oriented to time, place, person, mood and affect Labs (Last 48 Hours) 10/19/19 10/19/19 10/19/19 13:45 13:45 13:45 WBC 6.6 RBC 4.76 Hgb 14.1 Hct 43.2 MCV 90.8 MCH 29.6 MCHC 32.6 RDW Std Deviation 46.6 H RDW Coeff of Maggie 14.0 Plt Count 234 MPV 9.0 Immature Gran % (Auto) 0.500 Neut % (Auto) 67.5 Lymph % (Auto) 20.4 [place] % (Auto) 9.2 Eos % (Auto) 2.1 Baso % (Auto) 0.3 Absolute Neuts (auto) 4.5 Absolute Lymphs (auto) 1.35 Nucleated RBC % 0 Differential Comment Diff Path Review Specimen Type Sample Site pH Bicarbonate Actual POC Total CO2 Base Excess O2 Saturation ABG pCO2 ABG pO2 Greg Test O2 Delivery Device Liter Flow Blood Gas Notified Whom Blood Gas Notified Time Sodium 138 Potassium 4.2 Chloride 103 Carbon Dioxide 29.0 Anion Gap 6 BUN 21 H Creatinine 1.21 Estim Creat Clear Calc 56.53 Est GFR (MDRD) Af Amer 77 Est GFR (MDRD) Non-Af 63 BUN/Creatinine Ratio 17.4 Glucose 104 Lactic Acid 1.2 Calcium 8.8 Magnesium Ferritin Total Bilirubin Direct Bilirubin AST ALT Alkaline Phosphatase Lactate Dehydrogenase Troponin I < 0.015 B-Natriuretic Peptide Total Protein Albumin POC Glucose 10/19/19 10/19/19 10/19/19 13:45 13:45 16:20 WBC RBC Hgb Hct MCV MCH MCHC RDW Std Deviation RDW Coeff of Maggie Plt Count MPV Immature Gran % (Auto) Neut % (Auto) Lymph % (Auto) [place] % (Auto) Eos % (Auto) Baso % (Auto) Absolute Neuts (auto) Absolute Lymphs (auto) Nucleated RBC % Differential Comment Diff Path Review Specimen Type ART Sample Site R Brachial pH 7.43 Bicarbonate Actual 27.6 H POC Total CO2 29 Base Excess 3 H O2 Saturation 97 ABG pCO2 41.3 ABG pO2 91 Greg Test NA O2 Delivery Device Nasal Can Liter Flow 2.0 Blood Gas Notified Whom ED MD Blood Gas Notified Time 1618 Sodium Potassium Chloride Carbon Dioxide Anion Gap BUN Creatinine Estim Creat Clear Calc Est GFR (MDRD) Af Amer Est GFR (MDRD) Non-Af BUN/Creatinine Ratio Glucose Lactic Acid Calcium Magnesium 1.9 Ferritin Total Bilirubin Direct Bilirubin AST ALT Alkaline Phosphatase Lactate Dehydrogenase Troponin I B-Natriuretic Peptide 135.5 H Total Protein Albumin POC Glucose 10/19/19 10/19/19 10/19/19 20:30 22:44 23:15 WBC RBC Hgb Hct MCV MCH MCHC RDW Std Deviation RDW Coeff of Maggie Plt Count MPV Immature Gran % (Auto) Neut % (Auto) Lymph % (Auto) [place] % (Auto) Eos % (Auto) Baso % (Auto) Absolute Neuts (auto) Absolute Lymphs (auto) Nucleated RBC % Differential Comment Diff Path Review Specimen Type Sample Site pH Bicarbonate Actual POC Total CO2 Base Excess O2 Saturation ABG pCO2 ABG pO2 Greg Test O2 Delivery Device Liter Flow Blood Gas Notified Whom Blood Gas Notified Time Sodium Potassium Chloride Carbon Dioxide Anion Gap BUN Creatinine Estim Creat Clear Calc Est GFR (MDRD) Af Amer Est GFR (MDRD) Non-Af BUN/Creatinine Ratio Glucose Lactic Acid Calcium Magnesium Ferritin Total Bilirubin Direct Bilirubin AST ALT Alkaline Phosphatase Lactate Dehydrogenase Troponin I < 0.015 < 0.015 B-Natriuretic Peptide Total Protein Albumin POC Glucose 210 H 10/20/19 10/20/19 10/20/19 05:15 05:15 05:15 WBC 3.2 L RBC 4.37 L Hgb 13.1 Hct 39.0 L MCV 89.2 MCH 30.0 MCHC 33.6 RDW Std Deviation 45.3 H RDW Coeff of Maggie 13.7 Plt Count 222 MPV 9.2 Immature Gran % (Auto) 0.000 Neut % (Auto) 82.6 H Lymph % (Auto) 16.1 L [place] % (Auto) 1.3 Eos % (Auto) 0.0 Baso % (Auto) 0.0 Absolute Neuts (auto) 2.6 Absolute Lymphs (auto) 0.51 L Nucleated RBC % 0 Differential Comment SCANNED Diff Path Review May foll Specimen Type Sample Site pH Bicarbonate Actual POC Total CO2 Base Excess O2 Saturation ABG pCO2 ABG pO2 Greg Test O2 Delivery Device Liter Flow Blood Gas Notified Whom Blood Gas Notified Time Sodium 139 Potassium 4.5 Chloride 105 Carbon Dioxide 25.0 Anion Gap 9 BUN 26 H Creatinine 1.07 Estim Creat Clear Calc 66.07 Est GFR (MDRD) Af Amer 88 Est GFR (MDRD) Non-Af 73 BUN/Creatinine Ratio 24.3 H Glucose 186 H Lactic Acid Calcium 8.6 Magnesium Ferritin Total Bilirubin Pending Direct Bilirubin Pending AST Pending ALT Pending Alkaline Phosphatase Pending Lactate Dehydrogenase Troponin I B-Natriuretic Peptide Total Protein Pending Albumin Pending POC Glucose 10/20/19 05:15 WBC RBC Hgb Hct MCV MCH MCHC RDW Std Deviation RDW Coeff of Maggie Plt Count MPV Immature Gran % (Auto) Neut % (Auto) Lymph % (Auto) [place] % (Auto) Eos % (Auto) Baso % (Auto) Absolute Neuts (auto) Absolute Lymphs (auto) Nucleated RBC % Differential Comment Diff Path Review Specimen Type Sample Site pH Bicarbonate Actual POC Total CO2 Base Excess O2 Saturation ABG pCO2 ABG pO2 Greg Test O2 Delivery Device Liter Flow Blood Gas Notified Whom Blood Gas Notified Time Sodium Potassium Chloride Carbon Dioxide Anion Gap BUN Creatinine Estim Creat Clear Calc Est GFR (MDRD) Af Amer Est GFR (MDRD) Non-Af BUN/Creatinine Ratio Glucose Lactic Acid Calcium Magnesium Ferritin Pending Total Bilirubin Direct Bilirubin AST ALT Alkaline Phosphatase Lactate Dehydrogenase Pending Troponin I B-Natriuretic Peptide Total Protein Albumin POC Glucose Microbiology 10/19/19 17:20 Mucosa - Nose Respiratory Panel (PCR) - Final 10/19/19 13:45 Mucosa - Nose Influenza Types A,B Direct FA (PAT) - Final Clinical Impression(s) from Imaging Studies Chest X-Ray 10/19/19 13:37 IMPRESSION: Mild increased markings at the lung bases suggestive of a mild degree of bibasilar scarring. Electronically Signed: Arcenio Leary, at 14:39 EDT , Service support , Chest CT 10/19/19 14:43 IMPRESSION: Mild increased markings at the lung bases suggestive of mild linear scarring. Mild emphysematous changes slightly worse in the right upper lobe. Electronically Signed: Arcenio Leary, at 15:26 EDT , Service support , Current Medications Acetaminophen (Tylenol) 650 mg PO Q6H PRN PRN PRN Reason: Pain Score 1-10/Temp > 100.7 F Al Hydroxide/Mg Hydroxide (Mylanta Ii) 30 ml PO Q6H PRN PRN PRN Reason: Gastric Burning Albuterol Sulfate (Ventolin Aerosols) 2.5 mg INHALATION Q2H PRN PRN PRN Reason: Dyspnea, wheezing Albuterol/Ipratropium (Duoneb) 3 ml INHALATION Q4HWA.RT [facility] Last Admin: 10/20/19 00:34 Dose: 3 ml Documented by: Allopurinol (Zyloprim) 300 mg PO DAILY [facility] Aspirin (Ecotrin) 325 mg PO DAILYCM [facility] Carvedilol (Coreg) 6.25 mg PO BID [facility] Last Admin: 10/19/19 22:46 Dose: 6.25 mg Documented by: Clopidogrel Bisulfate (Plavix) 75 mg PO DAILY [facility] Dextrose (D50w Syringe) 0 gm IV X1 PRN; Protocol PRN Reason: Hypoglycemia Enoxaparin Sodium (Lovenox) 40 mg SC DAILY [facility] Furosemide (Lasix) 40 mg PO BID@1000,1800 [facility] Last Admin: 10/19/19 18:40 Dose: 40 mg Documented by: Glucagon () 1 mg IM .X1 PRN PRN Reason: Hypoglycemia Guaifenesin (Robitussin) 20 ml PO Q4H PRN PRN PRN Reason: COUGH Hydralazine HCl (Apresoline Iv) 10 mg IV Q4H PRN PRN PRN Reason: SBP > 160 Ceftriaxone Sodium (Rocephin) 1 gm in 50 mls @ 100 mls/hr IV Q24 [facility] Last Infusion: 10/19/19 18:47 Dose: Infused Documented by: Azithromycin 500 mg/ Dextrose 255 mls @ 250 mls/hr IV Q24 [facility] Last Infusion: 10/19/19 19:05 Dose: Infused Documented by: Sodium Chloride () 250 mls @ 15 mls/hr IV .[id number] PRN PRN Reason: Saline Flush Sodium Chloride () 250 mls @ 15 mls/hr IV .[id number] PRN PRN Reason: Additional IVPB Infusion Insulin Human Lispro (Humalog Kwikpen (Bkc)) 0 unit SC ACHS [facility]; Protocol Last Admin: 10/19/19 22:46 Dose: 2 units Documented by: Isosorbide Mononitrate (Imdur) 30 mg PO DAILY [facility] Levothyroxine Sodium (Synthroid) 25 mcg PO DAILY@0600 [facility] Last Admin: 10/20/19 05:19 Dose: 25 mcg Documented by: Lisinopril (Zestril) 2.5 mg PO DAILY [facility] Magnesium Hydroxide (Milk Of Magnesia) 30 ml PO DAILY PRN PRN PRN Reason: Constipation Melatonin (Melatonin) 3 mg PO QHS PRN PRN PRN Reason: INSOMNIA Last Admin: 10/20/19 00:00 Dose: 3 mg Documented by: Methylprednisolone (Solu-Medrol) 40 mg IV Q8 [facility] Last Admin: 10/20/19 05:19 Dose: 40 mg Documented by: Morphine Sulfate () 2 mg IV Q3H PRN PRN PRN Reason: Pain Score 6-10/10 Last Admin: 10/19/19 18:02 Dose: 2 mg Documented by: Nitroglycerin (Nitrostat) 0.4 mg SUBLINGUAL Q5M PRN PRN Reason: CARDIAC/CHEST PAIN Ondansetron HCl (Zofran) 4 mg IV Q8H PRN PRN PRN Reason: NAUSEA/VOMITING Oxycodone HCl (Oxyir) 7.5 mg PO Q6H PRN PRN Reason: Pain Score 1-10/10 Last Admin: 10/20/19 06:49 Dose: 7.5 mg Documented by: Pantoprazole Sodium (Protonix) 40 mg PO DAILY [facility] Psyllium Hydrophilic Mucilloid (Metamucil) 1 packet PO DAILY PRN PRN PRN Reason: Constipation Rosuvastatin Calcium (Crestor) 40 mg PO QHS [facility] Last Admin: 10/19/19 22:48 Dose: 40 mg Documented by: Senna/Docusate Sodium (Senokot-S, Salima-Colace) 2 tablet PO BID PRN PRN PRN Reason: Constipation Sertraline HCl (Zoloft) 50 mg PO DAILY [facility] Sodium Chloride () 10 - 40 ml IV UD PRN PRN Reason: SALINE FLUSH Last Admin: 10/19/19 22:46 Dose: 20 ml Documented by: Spironolactone (Aldactone) 25 mg PO DAILY [facility] Throat Lozenges (Cepacol Sore Throat Lozenge) 1 lozenge MUCOUS MEM Q2H PRN PRN PRN Reason: SORE THROAT Assessment/Plan Active and Suspected Problems (Last Reviewed 10/07/19 @ 07:06 by NEFTALI Evangelista) Chest pain (Acute) Acute respiratory failure (Acute) Suspected 2019-nCoV infection (Acute) COPD exacerbation (Acute) RECOMMENDATIONS: 1. Check LDH, ferritin and hepatic function profile. 2. Check pro calcitonin level. 3. Antibiotics can likely be discontinued from my perspective. 4. Continue to wean supplemental oxygen to maintain saturations at or above 90%. 5. Encourage incentive spirometer use and mobilize patient as tolerated. 6. COVID19 testing will be sent. 7. The patient is medically stable for transfer out of the intensive care unit. IMPRESSIONS: 1. Acute hypoxemic respiratory insufficiency CT chest only revealed chronic emphysematous changes without focal infiltrate, consolidation or groundglass changes. The patient has remained afebrile but does have some lymphopenia noted on CBC with differential this morning. Respiratory viral panel was negative. At this time, the patient does not appear to have evidence of a bacterial pneumonia. However, I cannot discount the possibility of other potential viral etiologies. In addition, the patient has a history of ischemic cardiomyopathy with a significantly depressed ejection fraction, which may also be contributing to his perceived dyspnea. For now, the patient will be continued on scheduled bronchodilators and IV steroids. Given that there is a lack of a readily identifiable etiology for the patient's presenting symptoms, will send COVID testing. Orders have been placed accordingly. 2. Ischemic cardiomyopathy with chronic systolic heart failure Continue outpatient medical management. Troponins have been negative. No need for repeat echocardiogram at this time. 3. 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 Continue home medications as indicated. This note was generated with [employer] dictation software. It may contain incorrect words, spelling, and punctuation that were not noted in checking the note before signing. Inpatient E&M: 14266 Init Hosp L3
[2019-10-20 07:38] LABS: AST(SGOT) 34 U/L (15-37); Alanine Aminotransfer ALT/SGPT 33 U/L (16-61); Albumin, Serum 3.1 g/dL (3.2-5.0); Alkaline Phosphatase 62 U/L (45-117); Bilirubin, Direct < 0.05 mg/dL (0.00-0.30); Globulin 3.5 g/dL (2.2-4.2); Protein, Total 6.6 g/dL (6.4-8.2)
[2019-10-20 07:41] LABS: Ferritin 110 ng/mL (26-388); LDH 476 U/L (87-241)
--- NOTE | 2019-10-20 07:51 | PN_ITS ---
Patient Problems: Active and Suspected Problems (Last Reviewed 10/07/19 @ 07:06 by NEFTALI Evangelista) Chest pain (Acute) Acute respiratory failure (Acute) Suspected 2019-nCoV infection (Acute) COPD exacerbation (Acute) Reason for Visit: Acute dyspnea Subjective: Patient is a 69-year-old gentleman with significant multiple medical comorbidities who presented with myalgias, nonproductive cough fever and chills. An assessment of acute hypoxic respiratory failure was made admitted to a monitored bed for subsequent management Objective: GENERAL: cooperative HEENT: Atraumatic; EYES; Anicteric, Normal Conjunctiva NECK; supple, normal thyroid, RESPIRATORY: Diminished to auscultation CARDIOVASCULAR: Regular S1 S2, GI: soft, normoactive bowel sounds, : No Renal angle tenderness; EXTREMITIES: No o clubbing, MUSCULOSKELETAL: no muscle waisting NEURO: Awake; no lateralizing signs. SKIN: No Rash PSYCH; Flat affect Vitals/I&O's: Vital Signs Temp Pulse Resp BP Pulse Ox 98.3 F 70 15 118/74 95 10/20/19 05:00 10/20/19 07:03 10/20/19 07:03 10/20/19 07:00 10/20/19 07:03 Oxygen Flow Rate (L/min) 1 Oxygen Delivery Method Nasal Cannula Weight: 91.5 kg Body Mass Index (BMI) 30.2 Finger Stick Blood Glucose 111 Intake and Output for Last 24 Hours 10/18/19 10/19/19 10/20/19 23:59 23:59 23:59 Intake Total 955 / 955 240 / 240 Output Total 550 / 550 800 / 800 Balance 405 / 405 -560 / -560 Microbiology Past 72 Hours 10/19/19 17:20 Mucosa - Nose Respiratory Panel (PCR) - Final 10/19/19 13:45 Mucosa - Nose Influenza Types A,B Direct FA (PAT) - Final Laboratory Results 10/19/19 13:45: WBC 6.6, RBC 4.76, Hgb 14.1, Hct 43.2, MCV 90.8, MCH 29.6, MCHC 32.6, RDW Std Deviation 46.6 H, RDW Coeff of Maggie 14.0, Plt Count 234, MPV 9.0, Immature Gran % (Auto) 0.500, Neut % (Auto) 67.5, Lymph % (Auto) 20.4, Ross % (Auto) 9.2, Eos % (Auto) 2.1, Baso % (Auto) 0.3, Absolute Neuts (auto) 4.5, Absolute Lymphs (auto) 1.35, Nucleated RBC % 0 10/19/19 13:45: Sodium 138, Potassium 4.2, Chloride 103, Carbon Dioxide 29.0, Anion Gap 6, BUN 21 H, Creatinine 1.21, Estim Creat Clear Calc 56.53, Est GFR (MDRD) Af Amer 77, Est GFR (MDRD) Non-Af 63, BUN/Creatinine Ratio 17.4, Glucose 104, Calcium 8.8, Troponin I < 0.015 10/19/19 13:45: Lactic Acid 1.2 10/19/19 13:45: B-Natriuretic Peptide 135.5 H 10/19/19 13:45: Magnesium 1.9 10/19/19 16:20: Specimen Type ART, Sample Site R Brachial, pH 7.43, Bicarbonate Actual 27.6 H, POC Total CO2 29, Base Excess 3 H, O2 Saturation 97, ABG pCO2 41.3, ABG pO2 91, Greg Test NA, O2 Delivery Device Nasal Can, Liter Flow 2.0, Blood Gas Notified Whom ED MD, Blood Gas Notified Time 1618 10/19/19 20:30: Troponin I < 0.015 10/19/19 22:44: POC Glucose 210 H 10/19/19 23:15: Troponin I < 0.015 10/20/19 05:15: WBC 3.2 L, RBC 4.37 L, Hgb 13.1, Hct 39.0 L, MCV 89.2, MCH 30.0, MCHC 33.6, RDW Std Deviation 45.3 H, RDW Coeff of Maggie 13.7, Plt Count 222, MPV 9.2, Immature Gran % (Auto) 0.000, Neut % (Auto) 82.6 H, Lymph % (Auto) 16.1 L, Ross % (Auto) 1.3, Eos % (Auto) 0.0, Baso % (Auto) 0.0, Absolute Neuts (auto) 2.6, Absolute Lymphs (auto) 0.51 L, Nucleated RBC % 0, Differential Comment SCANNED, Diff Path Review November10/20/19 05:15: Sodium 139, Potassium 4.5, Chloride 105, Carbon Dioxide 25.0, Anion Gap 9, BUN 26 H, Creatinine 1.07, Estim Creat Clear Calc 66.07, Est GFR (MDRD) Af Amer 88, Est GFR (MDRD) Non-Af 73, BUN/Creatinine Ratio 24.3 H, Glucose 186 H, Calcium 8.6 10/20/19 05:15: Total Bilirubin 0.30, Direct Bilirubin < 0.05, AST 34, ALT 33, Alkaline Phosphatase 62, Total Protein 6.6, Albumin 3.1 L, Globulin 3.5 10/20/19 05:15: Ferritin 110, Lactate Dehydrogenase 476 H Current Medications Acetaminophen (Tylenol) 650 mg PO Q6H PRN PRN PRN Reason: Pain Score 1-10/Temp > 100.7 F Al Hydroxide/Mg Hydroxide (Mylanta Ii) 30 ml PO Q6H PRN PRN PRN Reason: Gastric Burning Albuterol Sulfate (Ventolin Aerosols) 2.5 mg INHALATION Q2H PRN PRN PRN Reason: Dyspnea, wheezing Albuterol/Ipratropium (Duoneb) 3 ml INHALATION Q4HWA.RT [facility] Last Admin: 10/20/19 07:02 Dose: 3 ml Documented by: Allopurinol (Zyloprim) 300 mg PO DAILY [facility] Aspirin (Ecotrin) 325 mg PO DAILYCM [facility] Carvedilol (Coreg) 6.25 mg PO BID [facility] Last Admin: 10/19/19 22:46 Dose: 6.25 mg Documented by: Clopidogrel Bisulfate (Plavix) 75 mg PO DAILY [facility] Dextrose (D50w Syringe) 0 gm IV X1 PRN; Protocol PRN Reason: Hypoglycemia Enoxaparin Sodium (Lovenox) 40 mg SC DAILY [facility] Furosemide (Lasix) 40 mg PO BID@1000,1800 [facility] Last Admin: 10/19/19 18:40 Dose: 40 mg Documented by: Glucagon () 1 mg IM .X1 PRN PRN Reason: Hypoglycemia Guaifenesin (Robitussin) 20 ml PO Q4H PRN PRN PRN Reason: COUGH Hydralazine HCl (Apresoline Iv) 10 mg IV Q4H PRN PRN PRN Reason: SBP > 160 Ceftriaxone Sodium (Rocephin) 1 gm in 50 mls @ 100 mls/hr IV Q24 [facility] Last Infusion: 10/19/19 18:47 Dose: Infused Documented by: Azithromycin 500 mg/ Dextrose 255 mls @ 250 mls/hr IV Q24 [facility] Last Infusion: 10/19/19 19:05 Dose: Infused Documented by: Sodium Chloride () 250 mls @ 15 mls/hr IV .[id number] PRN PRN Reason: Saline Flush Sodium Chloride () 250 mls @ 15 mls/hr IV .[id number] PRN PRN Reason: Additional IVPB Infusion Insulin Human Lispro (Humalog Kwikpen (Bkc)) 0 unit SC ACHS [facility]; Protocol Last Admin: 10/19/19 22:46 Dose: 2 units Documented by: Isosorbide Mononitrate (Imdur) 30 mg PO DAILY [facility] Levothyroxine Sodium (Synthroid) 25 mcg PO DAILY@0600 [facility] Last Admin: 10/20/19 05:19 Dose: 25 mcg Documented by: Lisinopril (Zestril) 2.5 mg PO DAILY [facility] Magnesium Hydroxide (Milk Of Magnesia) 30 ml PO DAILY PRN PRN PRN Reason: Constipation Melatonin (Melatonin) 3 mg PO QHS PRN PRN PRN Reason: INSOMNIA Last Admin: 10/20/19 00:00 Dose: 3 mg Documented by: Methylprednisolone (Solu-Medrol) 40 mg IV Q8 [facility] Last Admin: 10/20/19 05:19 Dose: 40 mg Documented by: Morphine Sulfate () 2 mg IV Q3H PRN PRN PRN Reason: Pain Score 6-10/10 Last Admin: 10/19/19 18:02 Dose: 2 mg Documented by: Nitroglycerin (Nitrostat) 0.4 mg SUBLINGUAL Q5M PRN PRN Reason: CARDIAC/CHEST PAIN Ondansetron HCl (Zofran) 4 mg IV Q8H PRN PRN PRN Reason: NAUSEA/VOMITING Oxycodone HCl (Oxyir) 7.5 mg PO Q6H PRN PRN Reason: Pain Score 1-10/10 Last Admin: 10/20/19 06:49 Dose: 7.5 mg Documented by: Pantoprazole Sodium (Protonix) 40 mg PO DAILY [facility] Psyllium Hydrophilic Mucilloid (Metamucil) 1 packet PO DAILY PRN PRN PRN Reason: Constipation Rosuvastatin Calcium (Crestor) 40 mg PO QHS [facility] Last Admin: 10/19/19 22:48 Dose: 40 mg Documented by: Senna/Docusate Sodium (Senokot-S, Salima-Colace) 2 tablet PO BID PRN PRN PRN Reason: Constipation Sertraline HCl (Zoloft) 50 mg PO DAILY [facility] Sodium Chloride () 10 - 40 ml IV UD PRN PRN Reason: SALINE FLUSH Last Admin: 10/19/19 22:46 Dose: 20 ml Documented by: Spironolactone (Aldactone) 25 mg PO DAILY [facility] Throat Lozenges (Cepacol Sore Throat Lozenge) 1 lozenge MUCOUS MEM Q2H PRN PRN PRN Reason: SORE THROAT STROKE Vital Signs/Narrative: Vital Signs Temp Pulse Resp BP Pulse Ox 10/20/19 07:03 70 15 95 10/20/19 07:00 71 18 118/74 96 10/20/19 06:00 77 19 H 121/75 H 94 10/20/19 05:00 98.3 F 81 18 112/61 93 10/20/19 04:00 71 17 110/55 L 97 Medical Necessity - Tobacco Use Smoking Status: Current every day smoker Tobacco Use: Cigarettes Assessment/Plan All Active Problems (Last Reviewed 10/07/19 @ 07:06 by NEFTALI Evangelista) Chest pain (Acute) Acute respiratory failure (Acute) Suspected 2019-nCoV infection (Acute) Unstable angina (Acute) COPD exacerbation (Acute) COPD exacerbation (Resolved) Cardiac enzymes elevated (Resolved) Patient is a 69-year-old gentleman with significant multiple medical comorbidities who presented with myalgias, nonproductive cough fever and chills. An assessment of acute hypoxic respiratory failure was made admitted to a monitored bed for subsequent management 1. Acute hypoxic respiratory failure ?Suspected to be secondary to underlying viral pneumonia possible culprit. Patient placed on isolation while the COVID 19 test is being pursued. Patient was also placed on supplemental oxygen titrated to keep saturation greater than 90 2. COPD with acute exacerbation ?Contributing to above 3. Coronary artery disease ?With recent PCI SVG to OM1. Patient did complain of chest pain on admission 4. Ischemic cardiomyopathy -with an ejection fraction of 15% status post AICD placement 5. Chronic systolic congestive heart failure ?Currently stable 6. Hypertension ~ blood pressure controlled, home medications continued with dose adjustment as needed 7. Diabetes mellitus type II; - managed with diet placed on Accu-Cheks before meals and at bedtime with sliding scale coverage 8. Dyslipidemia ~patient is on statin therapy, continued at home dose 9. GERD patient is on PPI 10. Hypertension -blood pressure stable did continue with home meds 11. Chronic back pain with sciatica with history of pain seeking behavior 12. Gout -On allopurinol 13. DVT prophylaxis ~ on enoxaparin Inpatient E&M: [id number] [facility] L[facility]
[2019-10-20 08:01] LABS: Bedside Glucose 193 mg/dL (70-110)
[2019-10-20] MEDS: Insulin Lispro 100 UNIT/ML INSULN.PEN SC ×3 (08:20→21:19)
[2019-10-20] MEDS: Isosorbide Mononitrate 30 MG Tablet PO (08:21)
[2019-10-20] MEDS: Furosemide 40 MG Tablet PO ×2 (08:21→17:05)
[2019-10-20] MEDS: Lisinopril 2.5 MG Tablet PO (08:21)
[2019-10-20] MEDS: Carvedilol 6.25 MG Tablet PO ×2 (08:21→21:20)
[2019-10-20] MEDS: Sertraline 50 MG Tablet PO (08:22)
[2019-10-20] MEDS: Pantoprazole Sodium 40 MG Tablet PO (08:22)
[2019-10-20] MEDS: Aspirin E.C. 325 MG Tablet PO (08:22)
[2019-10-20] MEDS: Clopidogrel Bisulfate 75 MG Tablet PO (08:22)
[2019-10-20] MEDS: Spironolactone 25 MG Tablet PO (08:22)
[2019-10-20] MEDS: Enoxaparin 40 MG/0.4 ML Syringe SC (08:23)
[2019-10-20] MEDS: Ceftriaxone 1 GM/50 ML BAG IV (08:24)
[2019-10-20 09:22] LABS: Procalcitonin 0.14 ng/mL (0.00-0.09)
[2019-10-20] MEDS: oxyCODONE 5 MG Tablet 10 MG PO ×3 (09:51→21:00)
[2019-10-20] MEDS: Allopurinol 300 MG Tablet PO (09:51)
[2019-10-20 12:09] LABS: Pathologist Review Reviewed
[2019-10-20 12:21] LABS: Bedside Glucose 302 mg/dL (70-110)
[2019-10-20 15:50] LABS: Bedside Glucose 136 mg/dL (70-110)
--- NOTE | 2019-10-20 15:56 | CASEMGMT ---
LEONIE JEAN-BAPTISTE readmission review: Patient was seen @[facility] on 09/23/19-09/27/19 for CHF, COPD exacerbation. Patient was discharged to home with fluid restrictions. Per follow-up phone call with , patient is not following fluid restriction recommendation. Patient was able to fill prescriptions. Per chart patient followed up with [facility] on 10/04 and 10/18. [facility] sent patient to ED after appt on 10/18 for CHF workup. Per documentation patient has had a 8 lbs weight loss. Patient is being ruled out for Covid-19. Please see LEONIE JEAN-BAPTISTE assessment from 09/24/19. Disposition plan: Patient to discharge home with family support and follow-up plans in place. Monitor for need for home oxygen.
[2019-10-20] MEDS: Acetaminophen 325 MG Tablet 650 MG PO (21:01)
[2019-10-20] MEDS: Rosuvastatin 20 MG Tablet 40 MG PO (21:19)
[2019-10-20] MEDS: 0.9% Saline Lock 10 ML Syringe IV (21:20)
[2019-10-20] MEDS: MELATONIN 3 MG TABLET PO ×2 (21:20)
[2019-10-20 21:45] LABS: Bedside Glucose 300 mg/dL (70-110)
[2019-10-21] VITALS (7 sets, daily range): BP systolic 108–113; BP diastolic 59–69; PULSE 66–88; RESP 17–20; TEMP 36.4–36.6; O2SAT 91–95
[2019-10-21] MEDS: Ipratropium/Albuterol Sulfate 3 ML AMPUL.NEB INHALATION ×2 (02:26→06:50)
[2019-10-21] MEDS: oxyCODONE 5 MG Tablet 10 MG PO ×3 (02:28→11:00)
[2019-10-21] MEDS: 0.9% Saline Lock 10 ML Syringe IV ×4 (02:28→11:09)
[2019-10-21] MEDS: Levothyroxine 25 MCG TABLET PO (06:37)
[2019-10-21] MEDS: Insulin Lispro 100 UNIT/ML INSULN.PEN SC (06:37)
[2019-10-21] MEDS: Acetaminophen 325 MG Tablet 650 MG PO (06:45)
[2019-10-21 06:55] LABS: Absolute Lymphocyte Count 0.66 X10^3/uL (0.83-4.51); Absolute Neutrophil Count 8.6 X10^3/uL (2.0-7.7); Basophil# 0.01 X10^3/uL; Basophil% 0.1 % (0-1); Hematocrit 40.9 % (40-54); Hemoglobin 13.8 g/dL (13.0-16.5); Lymphocyte # 0.66 X10^3/ul (4.0); Lymphocyte % 6.8 % (19-41); Mean Corp Hgb Conc 33.7 g/dL (32-36); Mean Corpuscular Hgb 30.3 pg (27.0-32.0); Mean Corpuscular Volume 89.7 fL (80-94); Mean Platelet Vol. 9.4 fl (6.2-12.0); Monocyte# 0.42 X10^3/uL; Monocyte% 4.3 % (0-10); NRBC Flagged by Analyzer 0 % (0-5); Neutrophil # 8.56 X10^3/uL (2.7-7.7); Neutrophil % 88.4 % (47-70); Platelet Count 235 K/mm3 (150-450); RBC Distribution Width CV 13.6 % (11.6-14.6); RBC Distribution Width SD 44.5 fl (35.1-43.9); Red Blood Count 4.56 M/mm3 (4.6-6.2); White Blood Count 9.7 K/mm3 (4.4-11.0)
[2019-10-21 06:56] LABS: Bedside Glucose 182 mg/dL (70-110)
[2019-10-21 07:19] LABS: Anion Gap 10 (5-15); BUN 38 mg/dL (7-18); BUN/Creat Ratio 27.5 RATIO (10-20); Calcium,Total 8.7 mg/dL (8.5-10.1); Chloride 99 mmol/L (98-107); Creatinine, Serum 1.38 mg/dL (0.70-1.30); EST Glomerular Filtration Rate 54 mL/min (>60); Est Glom Filt Rate - Afr Amer 66 mL/min (>60); Estimated Creatinine Clearance 51.23 ml/min; Glucose 188 mg/dL (74-106); Potassium 3.9 mmol/L (3.5-5.1); Sodium Level 137 mmol/L (136-145)
--- NOTE | 2019-10-21 07:38 | PN_ITS ---
Patient Problems: Active and Suspected Problems (Last Reviewed 10/07/19 @ 07:06 by NEFTALI Evangelista) Chest pain (Acute) Acute respiratory failure (Acute) Suspected 2019-nCoV infection (Acute) COPD exacerbation (Acute) Objective: GENERAL: cooperative HEENT: Atraumatic; EYES; Anicteric, Normal Conjunctiva NECK; supple, normal thyroid, RESPIRATORY: Diminished to auscultation CARDIOVASCULAR: Regular S1 S2, GI: soft, normoactive bowel sounds, : No Renal angle tenderness; EXTREMITIES: No o clubbing, MUSCULOSKELETAL: no muscle waisting NEURO: Awake; no lateralizing signs. SKIN: No Rash PSYCH; Flat affect Vitals/I&O's: Vital Signs Temp Pulse Resp BP Pulse Ox 97.8 F 66 20 H 108/61 91 10/21/19 03:15 10/21/19 06:49 10/21/19 06:49 10/21/19 03:15 10/21/19 06:49 Oxygen Flow Rate (L/min) 2 Oxygen Delivery Method Room Air Weight: 91.5 kg Body Mass Index (BMI) 30.2 Finger Stick Blood Glucose 111 Intake and Output for Last 24 Hours 10/19/19 10/20/19 10/21/19 23:59 23:59 23:59 Intake Total 955 / 955 1025 / 1025 Output Total 550 / 550 1950 / 1950 Balance 405 / 405 -925 / -925 Microbiology Past 72 Hours 10/19/19 17:20 Mucosa - Nose Respiratory Panel (PCR) - Final 10/19/19 13:45 Mucosa - Nose Influenza Types A,B Direct FA (PAT) - Final Laboratory Results 10/20/19 05:15: Diff Path Review Reviewed 10/20/19 05:15: Total Bilirubin 0.30, Direct Bilirubin < 0.05, AST 34, ALT 33, Alkaline Phosphatase 62, Total Protein 6.6, Albumin 3.1 L, Globulin 3.5 10/20/19 05:15: Ferritin 110, Lactate Dehydrogenase 476 H 10/20/19 06:53: POC Glucose 193 H 10/20/19 08:50: Procalcitonin 0.14 H 10/20/19 09:25: Miscellaneous Test Pending 10/20/19 11:33: POC Glucose 302 H 10/20/19 15:36: POC Glucose 136 H 10/20/19 21:10: POC Glucose 300 H 10/21/19 06:34: POC Glucose 182 H 10/21/19 06:45: Sodium 137, Potassium 3.9, Chloride 99, Carbon Dioxide 28.0, Anion Gap 10, BUN 38 H, Creatinine 1.38 H, Estim Creat Clear Calc 51.23, Est GFR (MDRD) Af Amer 66, Est GFR (MDRD) Non-Af 54 L, BUN/Creatinine Ratio 27.5 H, Glucose 188 H, Calcium 8.7, Magnesium 2.0 10/21/19 06:45: WBC 9.7, RBC 4.56 L, Hgb 13.8, Hct 40.9, MCV 89.7, MCH 30.3, MCHC 33.7, RDW Std Deviation 44.5 H, RDW Coeff of Maggie 13.6, Plt Count 235, MPV 9.4, Immature Gran % (Auto) 0.400, Neut % (Auto) 88.4 H, Lymph % (Auto) 6.8 L, [place] % (Auto) 4.3, Eos % (Auto) 0.0, Baso % (Auto) 0.1, Absolute Neuts (auto) 8.6 H, Absolute Lymphs (auto) 0.66 L, Nucleated RBC % 0 Current Medications Acetaminophen (Tylenol) 650 mg PO Q6H PRN PRN PRN Reason: Pain Score 1-10/Temp > 100.7 F Last Admin: 10/21/19 06:45 Dose: 650 mg Documented by: Al Hydroxide/Mg Hydroxide (Mylanta Ii) 30 ml PO Q6H PRN PRN PRN Reason: Gastric Burning Albuterol Sulfate (Ventolin Aerosols) 2.5 mg INHALATION Q2H PRN PRN PRN Reason: Dyspnea, wheezing Albuterol/Ipratropium (Duoneb) 3 ml INHALATION Q4HWA.RT [facility] Last Admin: 10/21/19 06:50 Dose: 3 ml Documented by: Allopurinol (Zyloprim) 300 mg PO DAILY [facility] Last Admin: 10/20/19 09:51 Dose: 300 mg Documented by: [facility] Last Admin: 10/20/19 08:22 Dose: 325 mg Documented by: Carvedilol (Coreg) 6.25 mg PO BID [facility] Last Admin: 10/20/19 21:20 Dose: 6.25 mg Documented by: Clopidogrel Bisulfate (Plavix) 75 mg PO DAILY [facility] Last Admin: 10/20/19 08:22 Dose: 75 mg Documented by: Dextrose (D50w Syringe) 0 gm IV X1 PRN; Protocol PRN Reason: Hypoglycemia Enoxaparin Sodium (Lovenox) 40 mg SC DAILY [facility] Last Admin: 10/20/19 08:23 Dose: 40 mg Documented by: Furosemide (Lasix) 40 mg PO BID@1000,1800 [facility] Last Admin: 10/20/19 17:05 Dose: 40 mg Documented by: Glucagon () 1 mg IM .X1 PRN PRN Reason: Hypoglycemia Guaifenesin (Robitussin) 20 ml PO Q4H PRN PRN PRN Reason: COUGH Hydralazine HCl (Apresoline Iv) 10 mg IV Q4H PRN PRN PRN Reason: SBP > 160 Ceftriaxone Sodium (Rocephin) 1 gm in 50 mls @ 100 mls/hr IV Q24 [facility] Last Infusion: 10/20/19 10:47 Dose: Infused Documented by: Azithromycin 500 mg/ Dextrose 255 mls @ 250 mls/hr IV Q24 [facility] Last Infusion: 10/20/19 11:12 Dose: Infused Documented by: Sodium Chloride () 250 mls @ 15 mls/hr IV .[id number] PRN PRN Reason: Saline Flush Sodium Chloride () 250 mls @ 15 mls/hr IV .[id number] PRN PRN Reason: Additional IVPB Infusion Insulin Human Lispro (Humalog Kwikpen (Bkc)) 0 unit SC ACHS [facility]; Protocol Last Admin: 10/21/19 06:37 Dose: 1 units Documented by: Isosorbide Mononitrate (Imdur) 30 mg PO DAILY [facility] Last Admin: 10/20/19 08:21 Dose: 30 mg Documented by: Levothyroxine Sodium (Synthroid) 25 mcg PO DAILY@0600 [facility] Last Admin: 10/21/19 06:37 Dose: 25 mcg Documented by: Lisinopril (Zestril) 2.5 mg PO DAILY [facility] Last Admin: 10/20/19 08:21 Dose: 2.5 mg Documented by: Magnesium Hydroxide (Milk Of Magnesia) 30 ml PO DAILY PRN PRN PRN Reason: Constipation Melatonin (Melatonin) 3 mg PO QHS PRN PRN PRN Reason: INSOMNIA Last Admin: 10/20/19 21:20 Dose: 3 mg Documented by: Methylprednisolone (Solu-Medrol) 40 mg IV Q8 [facility] Last Admin: 10/21/19 06:37 Dose: 40 mg Documented by: Morphine Sulfate () 2 mg IV Q3H PRN PRN PRN Reason: Pain Score 6-10/10 Last Admin: 10/19/19 18:02 Dose: 2 mg Documented by: Nicotine (Nicoderm Cq (Pbkc)) 21 mg TRANSDERM. DAILY [facility] Last Admin: 10/20/19 18:14 Dose: 21 mg Documented by: Nitroglycerin (Nitrostat) 0.4 mg SUBLINGUAL Q5M PRN PRN Reason: CARDIAC/CHEST PAIN Ondansetron HCl (Zofran) 4 mg IV Q8H PRN PRN PRN Reason: NAUSEA/VOMITING Oxycodone HCl (Oxyir) 10 mg PO Q4H PRN PRN PRN Reason: Pain Score 6-10/10 Last Admin: 10/21/19 06:45 Dose: 10 mg Documented by: Pantoprazole Sodium (Protonix) 40 mg PO DAILY [facility] Last Admin: 10/20/19 08:22 Dose: 40 mg Documented by: Psyllium Hydrophilic Mucilloid (Metamucil) 1 packet PO DAILY PRN PRN PRN Reason: Constipation Rosuvastatin Calcium (Crestor) 40 mg PO QHS [facility] Last Admin: 10/20/19 21:19 Dose: 40 mg Documented by: Senna/Docusate Sodium (Senokot-S, Salima-Colace) 2 tablet PO BID PRN PRN PRN Reason: Constipation Sertraline HCl (Zoloft) 50 mg PO DAILY [facility] Last Admin: 10/20/19 08:22 Dose: 50 mg Documented by: Sodium Chloride () 10 - 40 ml IV UD PRN PRN Reason: SALINE FLUSH Last Admin: 10/21/19 06:36 Dose: 10 ml Documented by: Spironolactone (Aldactone) 25 mg PO DAILY [facility] Last Admin: 10/20/19 08:22 Dose: 25 mg Documented by: Throat Lozenges (Cepacol Sore Throat Lozenge) 1 lozenge MUCOUS MEM Q2H PRN PRN PRN Reason: SORE THROAT STROKE Vital Signs/Narrative: Vital Signs Pulse Resp Pulse Ox 10/21/19 06:49 66 20 H 91 Medical Necessity - Tobacco Use Smoking Status: Current every day smoker Tobacco Use: Cigarettes Assessment/Plan All Active Problems (Last Reviewed 10/07/19 @ 07:06 by NEFTALI Evangelista) Chest pain (Acute) Acute respiratory failure (Acute) Suspected 2019-nCoV infection (Acute) Unstable angina (Acute) COPD exacerbation (Acute) COPD exacerbation (Resolved) Cardiac enzymes elevated (Resolved) Patient is a 69-year-old gentleman with significant multiple medical comorbidities who presented with myalgias, nonproductive cough fever and chills. An assessment of acute hypoxic respiratory failure was made admitted to a monitored bed for subsequent management 1. Acute hypoxic respiratory failure ?Suspected to be secondary to underlying viral pneumonia possible culprit. Patient placed on isolation while the COVID 19 test is being pursued. Patient was also placed on supplemental oxygen titrated to keep saturation greater than 90 2. COPD with acute exacerbation ?Contributing to above 3. Coronary artery disease ?With recent PCI SVG to OM1. Patient did complain of chest pain on admission 4. Ischemic cardiomyopathy -with an ejection fraction of 15% status post AICD placement 5. Chronic systolic congestive heart failure ?Currently stable 6. Hypertension ~ blood pressure controlled, home medications continued with dose adjustment as needed 7. Diabetes mellitus type II; - managed with diet placed on Accu-Cheks before meals and at bedtime with sliding scale coverage 8. Dyslipidemia ~patient is on statin therapy, continued at home dose 9. GERD patient is on PPI 10. Hypertension -blood pressure stable did continue with home meds 11. Chronic back pain with sciatica with history of pain seeking behavior 12. Gout -On allopurinol 13. DVT prophylaxis ~ on enoxaparin
--- NOTE | 2019-10-21 09:14 | PN_ITS ---
Patient Problems: Active and Suspected Problems (Last Reviewed 10/07/19 @ 07:06 by NEFTALI Evangelista) Chest pain (Acute) Acute respiratory failure (Acute) Suspected 2019-nCoV infection (Acute) COPD exacerbation (Acute) Subjective: The patient was seen and examined at the bedside this morning. Events from the last 24 hours have been reviewed. The patient is currently afebrile, hemodynamically stable and maintaining appropriate oxygen saturations on room air. Objective: The patient's most recent lab work, culture data and imaging studies have all been personally reviewed. Respiratory viral panel was negative. Blood cultures have shown no growth to date. - Physical Exam Vitals/I&O's: Vital Signs Temp Pulse Resp BP Pulse Ox 97.8 F 71 20 H 108/61 91 10/21/19 03:15 10/21/19 07:52 10/21/19 06:49 10/21/19 03:15 10/21/19 06:49 Oxygen Flow Rate (L/min) 2 Oxygen Delivery Method Room Air Weight: 201 lb 11.567 oz Body Mass Index (BMI) 30.2 Finger Stick Blood Glucose 111 Intake and Output for Last 24 Hours 10/19/19 10/20/19 10/21/19 23:59 23:59 23:59 Intake Total 955 / 955 1025 / 1025 Output Total 550 / 550 1950 / 1950 Balance 405 / 405 -925 / -925 General: Alert, Cooperative, No apparent distress HEENT: Atraumatic, Normocephalic Oral: Moist Mucosa, No Gingival or Mucosal Lesions/ Ulcerations Neck: Supple, No Nodes, Trachea Midline Lungs: No rhonchi, No wheeze, No rales, Diminished Cardiovascular: Regular rate, Regular Rhythm, Normal S1, Normal S2, No murmurs Abdomen: Bowel Sounds Present, Soft, Non Tender Extremities: No clubbing, No cyanosis, No edema Skin: No breakdown Musculoskeletal: No Tenderness to Palpation of Joints or Extremities, No Muscle Wasting Lymphatic: No Cervical, Supraclavicular, or Inguinal Adenopathy Neurological: Cranial nerves II-XII grossly intact, Neuro grossly intact Psych/Mental Status: Alert and oriented to time, place, person, mood and affect Labs (Last 48 Hours) 10/19/19 10/19/19 10/19/19 13:45 13:45 13:45 WBC 6.6 RBC 4.76 Hgb 14.1 Hct 43.2 MCV 90.8 MCH 29.6 MCHC 32.6 RDW Std Deviation 46.6 H RDW Coeff of Maggie 14.0 Plt Count 234 MPV 9.0 Immature Gran % (Auto) 0.500 Neut % (Auto) 67.5 Lymph % (Auto) 20.4 [place] % (Auto) 9.2 Eos % (Auto) 2.1 Baso % (Auto) 0.3 Absolute Neuts (auto) 4.5 Absolute Lymphs (auto) 1.35 Nucleated RBC % 0 Differential Comment Diff Path Review Specimen Type Sample Site pH Bicarbonate Actual POC Total CO2 Base Excess O2 Saturation ABG pCO2 ABG pO2 Greg Test O2 Delivery Device Liter Flow Blood Gas Notified Whom Blood Gas Notified Time Sodium 138 Potassium 4.2 Chloride 103 Carbon Dioxide 29.0 Anion Gap 6 BUN 21 H Creatinine 1.21 Estim Creat Clear Calc 56.53 Est GFR (MDRD) Af Amer 77 Est GFR (MDRD) Non-Af 63 BUN/Creatinine Ratio 17.4 Glucose 104 Lactic Acid 1.2 Calcium 8.8 Magnesium Ferritin Total Bilirubin Direct Bilirubin AST ALT Alkaline Phosphatase Lactate Dehydrogenase Troponin I < 0.015 B-Natriuretic Peptide Total Protein Albumin Globulin Procalcitonin Miscellaneous Test POC Glucose 10/19/19 10/19/19 10/19/19 13:45 13:45 16:20 WBC RBC Hgb Hct MCV MCH MCHC RDW Std Deviation RDW Coeff of Maggie Plt Count MPV Immature Gran % (Auto) Neut % (Auto) Lymph % (Auto) [place] % (Auto) Eos % (Auto) Baso % (Auto) Absolute Neuts (auto) Absolute Lymphs (auto) Nucleated RBC % Differential Comment Diff Path Review Specimen Type ART Sample Site R Brachial pH 7.43 Bicarbonate Actual 27.6 H POC Total CO2 29 Base Excess 3 H O2 Saturation 97 ABG pCO2 41.3 ABG pO2 91 Greg Test NA O2 Delivery Device Nasal Can Liter Flow 2.0 Blood Gas Notified Whom ED MD Blood Gas Notified Time 1618 Sodium Potassium Chloride Carbon Dioxide Anion Gap BUN Creatinine Estim Creat Clear Calc Est GFR (MDRD) Af Amer Est GFR (MDRD) Non-Af BUN/Creatinine Ratio Glucose Lactic Acid Calcium Magnesium 1.9 Ferritin Total Bilirubin Direct Bilirubin AST ALT Alkaline Phosphatase Lactate Dehydrogenase Troponin I B-Natriuretic Peptide 135.5 H Total Protein Albumin Globulin Procalcitonin Miscellaneous Test POC Glucose 10/19/19 10/19/19 10/19/19 20:30 22:44 23:15 WBC RBC Hgb Hct MCV MCH MCHC RDW Std Deviation RDW Coeff of Maggie Plt Count MPV Immature Gran % (Auto) Neut % (Auto) Lymph % (Auto) [place] % (Auto) Eos % (Auto) Baso % (Auto) Absolute Neuts (auto) Absolute Lymphs (auto) Nucleated RBC % Differential Comment Diff Path Review Specimen Type Sample Site pH Bicarbonate Actual POC Total CO2 Base Excess O2 Saturation ABG pCO2 ABG pO2 Greg Test O2 Delivery Device Liter Flow Blood Gas Notified Whom Blood Gas Notified Time Sodium Potassium Chloride Carbon Dioxide Anion Gap BUN Creatinine Estim Creat Clear Calc Est GFR (MDRD) Af Amer Est GFR (MDRD) Non-Af BUN/Creatinine Ratio Glucose Lactic Acid Calcium Magnesium Ferritin Total Bilirubin Direct Bilirubin AST ALT Alkaline Phosphatase Lactate Dehydrogenase Troponin I < 0.015 < 0.015 B-Natriuretic Peptide Total Protein Albumin Globulin Procalcitonin Miscellaneous Test POC Glucose 210 H 10/20/19 10/20/19 10/20/19 05:15 05:15 05:15 WBC 3.2 L RBC 4.37 L Hgb 13.1 Hct 39.0 L MCV 89.2 MCH 30.0 MCHC 33.6 RDW Std Deviation 45.3 H RDW Coeff of Maggie 13.7 Plt Count 222 MPV 9.2 Immature Gran % (Auto) 0.000 Neut % (Auto) 82.6 H Lymph % (Auto) 16.1 L [place] % (Auto) 1.3 Eos % (Auto) 0.0 Baso % (Auto) 0.0 Absolute Neuts (auto) 2.6 Absolute Lymphs (auto) 0.51 L Nucleated RBC % 0 Differential Comment SCANNED Diff Path Review Reviewed Specimen Type Sample Site pH Bicarbonate Actual POC Total CO2 Base Excess O2 Saturation ABG pCO2 ABG pO2 Greg Test O2 Delivery Device Liter Flow Blood Gas Notified Whom Blood Gas Notified Time Sodium 139 Potassium 4.5 Chloride 105 Carbon Dioxide 25.0 Anion Gap 9 BUN 26 H Creatinine 1.07 Estim Creat Clear Calc 66.07 Est GFR (MDRD) Af Amer 88 Est GFR (MDRD) Non-Af 73 BUN/Creatinine Ratio 24.3 H Glucose 186 H Lactic Acid Calcium 8.6 Magnesium Ferritin Total Bilirubin 0.30 Direct Bilirubin < 0.05 AST 34 ALT 33 Alkaline Phosphatase 62 Lactate Dehydrogenase Troponin I B-Natriuretic Peptide Total Protein 6.6 Albumin 3.1 L Globulin 3.5 Procalcitonin Miscellaneous Test POC Glucose 10/20/19 10/20/19 10/20/19 05:15 06:53 08:50 WBC RBC Hgb Hct MCV MCH MCHC RDW Std Deviation RDW Coeff of Maggie Plt Count MPV Immature Gran % (Auto) Neut % (Auto) Lymph % (Auto) [place] % (Auto) Eos % (Auto) Baso % (Auto) Absolute Neuts (auto) Absolute Lymphs (auto) Nucleated RBC % Differential Comment Diff Path Review Specimen Type Sample Site pH Bicarbonate Actual POC Total CO2 Base Excess O2 Saturation ABG pCO2 ABG pO2 Greg Test O2 Delivery Device Liter Flow Blood Gas Notified Whom Blood Gas Notified Time Sodium Potassium Chloride Carbon Dioxide Anion Gap BUN Creatinine Estim Creat Clear Calc Est GFR (MDRD) Af Amer Est GFR (MDRD) Non-Af BUN/Creatinine Ratio Glucose Lactic Acid Calcium Magnesium Ferritin 110 Total Bilirubin Direct Bilirubin AST ALT Alkaline Phosphatase Lactate Dehydrogenase 476 H Troponin I B-Natriuretic Peptide Total Protein Albumin Globulin Procalcitonin 0.14 H Miscellaneous Test POC Glucose 193 H 10/20/19 10/20/19 10/20/19 09:25 11:33 15:36 WBC RBC Hgb Hct MCV MCH MCHC RDW Std Deviation RDW Coeff of Maggie Plt Count MPV Immature Gran % (Auto) Neut % (Auto) Lymph % (Auto) [place] % (Auto) Eos % (Auto) Baso % (Auto) Absolute Neuts (auto) Absolute Lymphs (auto) Nucleated RBC % Differential Comment Diff Path Review Specimen Type Sample Site pH Bicarbonate Actual POC Total CO2 Base Excess O2 Saturation ABG pCO2 ABG pO2 Greg Test O2 Delivery Device Liter Flow Blood Gas Notified Whom Blood Gas Notified Time Sodium Potassium Chloride Carbon Dioxide Anion Gap BUN Creatinine Estim Creat Clear Calc Est GFR (MDRD) Af Amer Est GFR (MDRD) Non-Af BUN/Creatinine Ratio Glucose Lactic Acid Calcium Magnesium Ferritin Total Bilirubin Direct Bilirubin AST ALT Alkaline Phosphatase Lactate Dehydrogenase Troponin I B-Natriuretic Peptide Total Protein Albumin Globulin Procalcitonin Miscellaneous Test Pending POC Glucose 302 H 136 H 10/20/19 10/21/19 10/21/19 21:10 06:34 06:45 WBC RBC Hgb Hct MCV MCH MCHC RDW Std Deviation RDW Coeff of Maggie Plt Count MPV Immature Gran % (Auto) Neut % (Auto) Lymph % (Auto) [place] % (Auto) Eos % (Auto) Baso % (Auto) Absolute Neuts (auto) Absolute Lymphs (auto) Nucleated RBC % Differential Comment Diff Path Review Specimen Type Sample Site pH Bicarbonate Actual POC Total CO2 Base Excess O2 Saturation ABG pCO2 ABG pO2 Greg Test O2 Delivery Device Liter Flow Blood Gas Notified Whom Blood Gas Notified Time Sodium 137 Potassium 3.9 Chloride 99 Carbon Dioxide 28.0 Anion Gap 10 BUN 38 H Creatinine 1.38 H Estim Creat Clear Calc 51.23 Est GFR (MDRD) Af Amer 66 Est GFR (MDRD) Non-Af 54 L BUN/Creatinine Ratio 27.5 H Glucose 188 H Lactic Acid Calcium 8.7 Magnesium 2.0 Ferritin Total Bilirubin Direct Bilirubin AST ALT Alkaline Phosphatase Lactate Dehydrogenase Troponin I B-Natriuretic Peptide Total Protein Albumin Globulin Procalcitonin Miscellaneous Test POC Glucose 300 H 182 H 10/21/19 06:45 WBC 9.7 RBC 4.56 L Hgb 13.8 Hct 40.9 MCV 89.7 MCH 30.3 MCHC 33.7 RDW Std Deviation 44.5 H RDW Coeff of Maggie 13.6 Plt Count 235 MPV 9.4 Immature Gran % (Auto) 0.400 Neut % (Auto) 88.4 H Lymph % (Auto) 6.8 L [place] % (Auto) 4.3 Eos % (Auto) 0.0 Baso % (Auto) 0.1 Absolute Neuts (auto) 8.6 H Absolute Lymphs (auto) 0.66 L Nucleated RBC % 0 Differential Comment Diff Path Review Specimen Type Sample Site pH Bicarbonate Actual POC Total CO2 Base Excess O2 Saturation ABG pCO2 ABG pO2 Greg Test O2 Delivery Device Liter Flow Blood Gas Notified Whom Blood Gas Notified Time Sodium Potassium Chloride Carbon Dioxide Anion Gap BUN Creatinine Estim Creat Clear Calc Est GFR (MDRD) Af Amer Est GFR (MDRD) Non-Af BUN/Creatinine Ratio Glucose Lactic Acid Calcium Magnesium Ferritin Total Bilirubin Direct Bilirubin AST ALT Alkaline Phosphatase Lactate Dehydrogenase Troponin I B-Natriuretic Peptide Total Protein Albumin Globulin Procalcitonin Miscellaneous Test POC Glucose Microbiology 10/19/19 17:20 Mucosa - Nose Respiratory Panel (PCR) - Final 10/19/19 13:45 Mucosa - Nose Influenza Types A,B Direct FA (PAT) - Final Clinical Impression(s) from Imaging Studies Chest X-Ray 10/19/19 13:37 IMPRESSION: Mild increased markings at the lung bases suggestive of a mild degree of bibasilar scarring. Electronically Signed: Arcenio Sapphire, at 14:39 EDT , Service support , Chest CT 10/19/19 14:43 IMPRESSION: Mild increased markings at the lung bases suggestive of mild linear scarring. Mild emphysematous changes slightly worse in the right upper lobe. Electronically Signed: Arcenio Sapphire, at 15:26 EDT , Service support , Chest X-Ray 10/20/19 05:55 IMPRESSION: Mild increased markings at the left lung base suggestive of left basilar atelectasis and/or scarring with blunting of the left costophrenic angle. Electronically Signed: Arcenio Sapphire, at 8:15 EDT , Service support , Current Medications Acetaminophen (Tylenol) 650 mg PO Q6H PRN PRN PRN Reason: Pain Score 1-10/Temp > 100.7 F Last Admin: 10/21/19 06:45 Dose: 650 mg Documented by: Al Hydroxide/Mg Hydroxide (Mylanta Ii) 30 ml PO Q6H PRN PRN PRN Reason: Gastric Burning Albuterol Sulfate (Ventolin Aerosols) 2.5 mg INHALATION Q2H PRN PRN PRN Reason: Dyspnea, wheezing Albuterol/Ipratropium (Duoneb) 3 ml INHALATION Q4HWA.RT CAROLYN Last Admin: 10/21/19 06:50 Dose: 3 ml Documented by: Allopurinol (Zyloprim) 300 mg PO DAILY [facility] Last Admin: 10/20/19 09:51 Dose: 300 mg Documented by: Aspirin (Ecotrin) 325 mg PO DAILYCM [facility] Last Admin: 10/20/19 08:22 Dose: 325 mg Documented by: Carvedilol (Coreg) 6.25 mg PO BID [facility] Last Admin: 10/20/19 21:20 Dose: 6.25 mg Documented by: Clopidogrel Bisulfate (Plavix) 75 mg PO DAILY [facility] Last Admin: 10/20/19 08:22 Dose: 75 mg Documented by: Dextrose (D50w Syringe) 0 gm IV X1 PRN; Protocol PRN Reason: Hypoglycemia Enoxaparin Sodium (Lovenox) 40 mg SC DAILY [facility] Last Admin: 10/20/19 08:23 Dose: 40 mg Documented by: Furosemide (Lasix) 40 mg PO BID@1000,1800 [facility] Last Admin: 10/20/19 17:05 Dose: 40 mg Documented by: Glucagon () 1 mg IM .X1 PRN PRN Reason: Hypoglycemia Guaifenesin (Robitussin) 20 ml PO Q4H PRN PRN PRN Reason: COUGH Hydralazine HCl (Apresoline Iv) 10 mg IV Q4H PRN PRN PRN Reason: SBP > 160 Ceftriaxone Sodium (Rocephin) 1 gm in 50 mls @ 100 mls/hr IV Q24 [facility] Last Infusion: 10/20/19 10:47 Dose: Infused Documented by: Azithromycin 500 mg/ Dextrose 255 mls @ 250 mls/hr IV Q24 [facility] Last Infusion: 10/20/19 11:12 Dose: Infused Documented by: Sodium Chloride () 250 mls @ 15 mls/hr IV .[id number] PRN PRN Reason: Saline Flush Sodium Chloride () 250 mls @ 15 mls/hr IV .[id number] PRN PRN Reason: Additional IVPB Infusion Insulin Human Lispro (Humalog Kwikpen (Bkc)) 0 unit SC ACHS [facility]; Protocol Last Admin: 10/21/19 06:37 Dose: 1 units Documented by: Isosorbide Mononitrate (Imdur) 30 mg PO DAILY [facility] Last Admin: 10/20/19 08:21 Dose: 30 mg Documented by: Levothyroxine Sodium (Synthroid) 25 mcg PO DAILY@0600 [facility] Last Admin: 10/21/19 06:37 Dose: 25 mcg Documented by: Lisinopril (Zestril) 2.5 mg PO DAILY [facility] Last Admin: 10/20/19 08:21 Dose: 2.5 mg Documented by: Magnesium Hydroxide (Milk Of Magnesia) 30 ml PO DAILY PRN PRN PRN Reason: Constipation Melatonin (Melatonin) 3 mg PO QHS PRN PRN PRN Reason: INSOMNIA Last Admin: 10/20/19 21:20 Dose: 3 mg Documented by: Methylprednisolone (Solu-Medrol) 40 mg IV Q8 [facility] Last Admin: 10/21/19 06:37 Dose: 40 mg Documented by: Morphine Sulfate () 2 mg IV Q3H PRN PRN PRN Reason: Pain Score 6-10/10 Last Admin: 10/19/19 18:02 Dose: 2 mg Documented by: Nicotine (Nicoderm Cq (Pbkc)) 21 mg TRANSDERM. DAILY [facility] Last Admin: 10/20/19 18:14 Dose: 21 mg Documented by: Nitroglycerin (Nitrostat) 0.4 mg SUBLINGUAL Q5M PRN PRN Reason: CARDIAC/CHEST PAIN Ondansetron HCl (Zofran) 4 mg IV Q8H PRN PRN PRN Reason: NAUSEA/VOMITING Oxycodone HCl (Oxyir) 10 mg PO Q4H PRN PRN PRN Reason: Pain Score 6-10/10 Last Admin: 10/21/19 06:45 Dose: 10 mg Documented by: Pantoprazole Sodium (Protonix) 40 mg PO DAILY [facility] Last Admin: 10/20/19 08:22 Dose: 40 mg Documented by: Psyllium Hydrophilic Mucilloid (Metamucil) 1 packet PO DAILY PRN PRN PRN Reason: Constipation Rosuvastatin Calcium (Crestor) 40 mg PO QHS [facility] Last Admin: 10/20/19 21:19 Dose: 40 mg Documented by: Senna/Docusate Sodium (Senokot-S, Salima-Colace) 2 tablet PO BID PRN PRN PRN Reason: Constipation Sertraline HCl (Zoloft) 50 mg PO DAILY [facility] Last Admin: 10/20/19 08:22 Dose: 50 mg Documented by: Sodium Chloride () 10 - 40 ml IV UD PRN PRN Reason: SALINE FLUSH Last Admin: 10/21/19 06:36 Dose: 10 ml Documented by: Spironolactone (Aldactone) 25 mg PO DAILY [facility] Last Admin: 10/20/19 08:22 Dose: 25 mg Documented by: Throat Lozenges (Cepacol Sore Throat Lozenge) 1 lozenge MUCOUS MEM Q2H PRN PRN PRN Reason: SORE THROAT Medical Necessity - Tobacco Use Smoking Status: Current every day smoker Tobacco Use: Cigarettes Assessment/Plan All Active Problems (Last Reviewed 10/07/19 @ 07:06 by NEFTALI Evangelista) Chest pain (Acute) Acute respiratory failure (Acute) Suspected 2019-nCoV infection (Acute) Unstable angina (Acute) COPD exacerbation (Acute) COPD exacerbation (Resolved) Cardiac enzymes elevated (Resolved) RECOMMENDATIONS: 1. Antibiotics can be discontinued from my perspective. 2. Continue to wean supplemental oxygen to maintain saturations at or above 90%. 3. Encourage incentive spirometer use and mobilize patient as tolerated. 4. Transition from IV steroids to prednisone 40 mg daily and plan for taper at discharge. 5. Continue bronchodilators. 6. The patient is medically stable for discharge home today. [facility] will contact him if his COVID testing is positive. Otherwise, infection control will contact the patient with negative test results. The patient should remain in quarantine accordingly. IMPRESSIONS: 1. Acute hypoxemic respiratory insufficiency CT chest only revealed chronic emphysematous changes without focal infiltrate, consolidation or groundglass changes. While the patient remained afebrile throughout his hospitalization, he did have some lymphopenia on CBC with differential. Respiratory viral panel was negative. There was no evidence of bacterial pneumonia. Given the undifferentiated nature of the patient's symptoms, coronavirus testing was sent. The patient is currently on room air as of this morning. He should remain on scheduled bronchodilators. IV steroids can be transitioned to prednisone 40 mg daily, with plans for a taper at discharge. The patient will be contacted by [facility] if coronavirus testing is positive. Otherwise, infection control will contact the patient with negative test results. He should remain in quarantine accordingly. The patient can call the pulmonary medicine clinic with any concerns or questions. 2. Ischemic cardiomyopathy with chronic systolic heart failure Continue outpatient medical management. Troponins have been negative. No need for repeat echocardiogram at this time. 3. 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 Continue home medications as indicated. This note was generated with [employer] software. It may contain incorrect words, spelling, and punctuation that were not noted in checking the note before signing. Inpatient E&M: 35315 Subs Hosp L2
[2019-10-21] MEDS: Carvedilol 6.25 MG Tablet PO (09:44)
[2019-10-21] MEDS: Aspirin E.C. 325 MG Tablet PO (09:44)
[2019-10-21] MEDS: Isosorbide Mononitrate 30 MG Tablet PO (09:45)
[2019-10-21] MEDS: Enoxaparin 40 MG/0.4 ML Syringe SC (09:45)
[2019-10-21] MEDS: Furosemide 40 MG Tablet PO (09:45)
[2019-10-21] MEDS: Clopidogrel Bisulfate 75 MG Tablet PO (09:46)
[2019-10-21] MEDS: Spironolactone 25 MG Tablet PO (09:48)
[2019-10-21] MEDS: Morphine 2 MG/ML Syringe IV (09:49)
[2019-10-21] MEDS: Pantoprazole Sodium 40 MG Tablet PO (09:56)
--- NOTE | 2019-10-21 11:01 | DCINST_ITS ---
- Discharge Diagnoses Current Active Problems: Current Active and Chronic Problems (Last Reviewed 10/07/19 @ 07:06 by NEFTALI Evangelista) Chest pain (Acute) Acute respiratory failure (Acute) Suspected 2019-nCoV infection (Acute) COPD exacerbation (Acute) You will use the following diet at home:: Calorie/Carbohydrate Controlled (specify 1200, 1400, etc) - 1800 Your food should be the consistency of: Regular Discharge Activity: Return to Normal Activity Additional Instructions: patient to self isolate for 14 days the results come back and when contacted by the health department Pending Tests on Discharge: COVID 19 test Allergies/Adverse Reactions: Allergies chlorpromazine HCl [From Thorazine] Allergy (Severe, Verified 10/19/19 13:30) Hives PER PATIENT tramadol HCl [From Ultram] Allergy (Severe, Verified 10/19/19 13:30) Hives PER PATIENT codeine Allergy (Intermediate, Verified 10/19/19 13:30) Hives atorvastatin Adverse Reaction (Intermediate, Verified 10/19/19 13:30) Other LEG PAIN/CRAMPS cyclobenzaprine [From Flexeril] Adverse Reaction (Verified 10/19/19 13:30) Upset Stomach metformin Adverse Reaction (Verified 10/19/19 13:30) Upset Stomach naproxen Adverse Reaction (Verified 10/19/19 13:30) Upset Stomach promethazine [From Phenergan] Adverse Reaction (Verified 10/19/19 13:30) Other CONFUSION Medications to take at Discharge Isosorbide Mononitrate [Imdur] 30 mg PO DAILY 02/18/17 Albuterol Aerosols [Ventolin Aerosols] 2.5 mg INHALATION Q4H PRN PRN 02/23/17 Pantoprazole Sodium [Protonix] 40 mg PO DAILY 11/15/17 Lisinopril [Zestril] 2.5 mg PO DAILY 05/21/18 Rosuvastatin Calcium [Crestor] 40 mg PO DAILY 06/16/18 Clopidogrel Bisulfate [Plavix] 75 mg PO DAILY 09/01/18 Allopurinol 300 mg PO DAILY 09/20/18 Nitroglycerin 0.4 mg SL PRN PRN 12/01/18 Albuterol Inhaler [Ventolin Hfa] 2 puff INHALATION Q4H PRN PRN 02/24/19 Oxycodone HCl/Acetaminophen [Oxycodon-Acetaminophen 7.5-325] 1 tab PO Q6H PRN 05/02/19 aspirin 325 mg tablet,delayed release 325 mg PO DAILY 10/05/19 spironolactone 25 mg tablet 25 mg PO DAILY 10/05/19 Carvedilol [Coreg (Beta Sina)] 6.25 mg PO BID 10/19/19 Furosemide [Lasix] 40 mg PO BID@1000,1800 10/19/19 Glimepiride [Amaryl] 1 mg PO DAILY 10/19/19 Levothyroxine [Synthroid] 25 mcg PO DAILY@0600 10/19/19 Sertraline HCl [Zoloft] 50 mg PO DAILY 10/19/19 Primary Care Physician: Juan De La Vega III, MD [Primary Care Provider] - Please follow up with your Primary Care Physician in: after the period of quarantine Test Results: Test results from this visit will be discussed in further detail at your follow- up appointment, if applicable. Proposed Discharge Date: 10/21/19
--- NOTE | 2019-10-21 11:06 | PCM.DC.SUM ---
Discharge Date and Diagnosis - Problem List Patient Problems: Active and Suspected Problems (Last Reviewed 10/07/19 @ 07:06 by NEFTALI Evangelista) Chest pain (Acute) Acute respiratory failure (Acute) Suspected 2019-nCoV infection (Acute) COPD exacerbation (Acute) Date of Admission: 10/19/19 Date of Discharge: 10/21/19 - Primary Discharge Diagnosis Active and Suspected Problems (Last Reviewed 10/07/19 @ 07:06 by NEFTALI Evangelista) Chest pain (Acute) Acute respiratory failure (Acute) Suspected 2019-nCoV infection (Acute) COPD exacerbation (Acute) - Secondary Discharge Diagnosis Chronic Problems (Last Reviewed 10/07/19 @ 07:06 by NEFTALI Evangelista) History of left heart catheterization (Chronic 06/29/19) LVEF: by LV gram 15-20 %; [place] Multivessel CAD; Occluded [place] mid LAD. Occluded [place] proximal RCA. Occluded SVG to DIAG. Occluded SVG to RCA. Occluded HUMPHREY to LAD. Severe 85% stenosis in last remaining vessel of SVG to LCX with widely patent SVG stents. Severe LV dysfunction. Referred for immediate PCI: Will tx to [facility] for high risk PCI to last remaining vessel of SVG to OM. 06/29/19 per DANA @ [facility] Hypoxia, sleep related (Chronic) Coarse tremors (Chronic) Headache (Chronic) COPD (chronic obstructive pulmonary disease) (Chronic) Obesity (BMI 30.0-34.9) (Chronic) Nicotine dependence (Chronic) Gout (Chronic) Degenerative cervical disc (Chronic) Chronic back pain (Chronic) Presence of automatic implantable cardioverter-defibrillator (Chronic) H/O coronary artery bypass surgery (Chronic ~2008) HUMPHREY-LAD, SVG-D1, SVG-OM Chronic renal failure, stage 3 (moderate) (Chronic) Chronic systolic (congestive) heart failure (Chronic) Stented coronary artery (Chronic ~12/2016) has had 7 stents as of 06/15/17 Ischemic cardiomyopathy (Chronic) 25% ejection fraction in November 2016 V-tach (Chronic) has an AICD Benign essential hypertension (Chronic) Gastroesophageal reflux disease (Chronic) Hyperlipidemia (Chronic) Type 2 diabetes mellitus (Chronic) Morbid obesity (Chronic) CAD (coronary artery disease) (Chronic) Hospital Course and Treatment Imaging Results: Clinical Impression(s) from Imaging Studies Chest X-Ray 10/19/19 13:37 IMPRESSION: Mild increased markings at the lung bases suggestive of a mild degree of bibasilar scarring. Electronically Signed: Arcenio Sapphire, at 14:39 EDT , Service support , Chest CT 10/19/19 14:43 IMPRESSION: Mild increased markings at the lung bases suggestive of mild linear scarring. Mild emphysematous changes slightly worse in the right upper lobe. Electronically Signed: Arcenio Sapphire, at 15:26 EDT , Service support , Chest X-Ray 10/20/19 05:55 IMPRESSION: Mild increased markings at the left lung base suggestive of left basilar atelectasis and/or scarring with blunting of the left costophrenic angle. Electronically Signed: Arcenio Sapphire, at 8:15 EDT , Service support , Operations: None Summary of Care Provided: Patient is a 69-year-old gentleman with significant multiple medical comorbidities who presented with myalgias, nonproductive cough fever and chills. An assessment of acute hypoxic respiratory failure was made admitted to a monitored bed for subsequent management 1. Acute hypoxic respiratory failure ?Suspected to be secondary to underlying viral pneumonia possible culprit. Patient placed on isolation while the COVID 19 test is being pursued. Patient was also placed on supplemental oxygen titrated to keep saturation greater than 90 ?10/21/2019; patient seen deemed stable enough to be discharged. With patient COVID 19 test results pending patient was instructed to self isolate for 14 days pending results of his COVID 19 test and when contacted by the health department of [facility] 2. COPD with acute exacerbation ?Contributing to above 3. Coronary artery disease ?With recent PCI SVG to OM1. Patient did complain of chest pain on admission 4. Ischemic cardiomyopathy -with an ejection fraction of 15% status post AICD placement 5. Chronic systolic congestive heart failure ?Currently stable 6. Hypertension ~ blood pressure controlled, home medications continued with dose adjustment as needed 7. Diabetes mellitus type II; - managed with diet placed on Accu-Cheks before meals and at bedtime with sliding scale coverage 8. Dyslipidemia ~patient is on statin therapy, continued at home dose 9. GERD patient is on PPI 10. Hypertension -blood pressure stable did continue with home meds 11. Chronic back pain with sciatica with history of pain seeking behavior 12. Gout -On allopurinol 13. DVT prophylaxis ~ on enoxaparin Patient Problems: Active and Suspected Problems (Last Reviewed 10/07/19 @ 07:06 by NEFTALI Evangelista) Chest pain (Acute) Acute respiratory failure (Acute) Suspected 2019-nCoV infection (Acute) COPD exacerbation (Acute) Objective: GENERAL: cooperative HEENT: Atraumatic; EYES; Anicteric, Normal Conjunctiva NECK; supple, normal thyroid, RESPIRATORY: Diminished to auscultation CARDIOVASCULAR: Regular S1 S2, GI: soft, normoactive bowel sounds, : No Renal angle tenderness; EXTREMITIES: No o clubbing, MUSCULOSKELETAL: no muscle waisting NEURO: Awake; no lateralizing signs. SKIN: No Rash PSYCH; Flat affect - Physical Exam Vitals/I&O's: Vital Signs Temp Pulse Resp BP Pulse Ox 97.6 F L 88 17 111/59 L 94 10/21/19 09:28 10/21/19 09:28 10/21/19 09:28 10/21/19 09:28 10/21/19 09:28 Oxygen Flow Rate (L/min) 2 Oxygen Delivery Method Room Air Weight: 91.5 kg Body Mass Index (BMI) 30.2 Finger Stick Blood Glucose 111 Intake and Output for Last 24 Hours 10/19/19 10/20/19 10/21/19 23:59 23:59 23:59 Intake Total 955 / 955 1025 / 1025 Output Total 550 / 550 1950 / 1950 Balance 405 / 405 -925 / -925 Microbiology Past 72 Hours 10/19/19 17:20 Mucosa - Nose Respiratory Panel (PCR) - Final 10/19/19 13:45 Mucosa - Nose Influenza Types A,B Direct FA (PAT) - Final Laboratory Results 10/20/19 05:15: Diff Path Review Reviewed 10/20/19 09:25: Miscellaneous Test Cancelled 10/20/19 09:25: COVID-19 (MANDIE) Pending 10/20/19 11:33: POC Glucose 302 H 10/20/19 15:36: POC Glucose 136 H 10/20/19 21:10: POC Glucose 300 H 10/21/19 06:34: POC Glucose 182 H 10/21/19 06:45: Sodium 137, Potassium 3.9, Chloride 99, Carbon Dioxide 28.0, Anion Gap 10, BUN 38 H, Creatinine 1.38 H, Estim Creat Clear Calc 51.23, Est GFR (MDRD) Af Amer 66, Est GFR (MDRD) Non-Af 54 L, BUN/Creatinine Ratio 27.5 H, Glucose 188 H, Calcium 8.7, Magnesium 2.0 10/21/19 06:45: WBC 9.7, RBC 4.56 L, Hgb 13.8, Hct 40.9, MCV 89.7, MCH 30.3, MCHC 33.7, RDW Std Deviation 44.5 H, RDW Coeff of Maggie 13.6, Plt Count 235, MPV 9.4, Immature Gran % (Auto) 0.400, Neut % (Auto) 88.4 H, Lymph % (Auto) 6.8 L, Alexander % (Auto) 4.3, Eos % (Auto) 0.0, Baso % (Auto) 0.1, Absolute Neuts (auto) 8.6 H, Absolute Lymphs (auto) 0.66 L, Nucleated RBC % 0 Current Medications Acetaminophen (Tylenol) 650 mg PO Q6H PRN PRN PRN Reason: Pain Score 1-10/Temp > 100.7 F Last Admin: 10/21/19 06:45 Dose: 650 mg Documented by: Al Hydroxide/Mg Hydroxide (Mylanta Ii) 30 ml PO Q6H PRN PRN PRN Reason: Gastric Burning Albuterol Sulfate (Ventolin Aerosols) 2.5 mg INHALATION Q2H PRN PRN PRN Reason: Dyspnea, wheezing Albuterol/Ipratropium (Duoneb) 3 ml INHALATION Q4HWA.RT CAROLYN Last Admin: 10/21/19 06:50 Dose: 3 ml Documented by: Allopurinol (Zyloprim) 300 mg PO DAILY [facility] Last Admin: 10/20/19 09:51 Dose: 300 mg Documented by: Aspirin (Ecotrin) 325 mg PO DAILYCM [facility] Last Admin: 10/21/19 09:44 Dose: 325 mg Documented by: Carvedilol (Coreg) 6.25 mg PO BID [facility] Last Admin: 10/21/19 09:44 Dose: 6.25 mg Documented by: Clopidogrel Bisulfate (Plavix) 75 mg PO DAILY [facility] Last Admin: 10/21/19 09:46 Dose: 75 mg Documented by: Dextrose (D50w Syringe) 0 gm IV X1 PRN; Protocol PRN Reason: Hypoglycemia Enoxaparin Sodium (Lovenox) 40 mg SC DAILY [facility] Last Admin: 10/21/19 09:45 Dose: 40 mg Documented by: Furosemide (Lasix) 40 mg PO BID@1000,1800 [facility] Last Admin: 10/21/19 09:45 Dose: 40 mg Documented by: Glucagon () 1 mg IM .X1 PRN PRN Reason: Hypoglycemia Guaifenesin (Robitussin) 20 ml PO Q4H PRN PRN PRN Reason: COUGH Hydralazine HCl (Apresoline Iv) 10 mg IV Q4H PRN PRN PRN Reason: SBP > 160 Ceftriaxone Sodium (Rocephin) 1 gm in 50 mls @ 100 mls/hr IV Q24 [facility] Last Infusion: 10/20/19 10:47 Dose: Infused Documented by: Azithromycin 500 mg/ Dextrose 255 mls @ 250 mls/hr IV Q24 [facility] Last Infusion: 10/20/19 11:12 Dose: Infused Documented by: Sodium Chloride () 250 mls @ 15 mls/hr IV .[id number] PRN PRN Reason: Saline Flush Sodium Chloride () 250 mls @ 15 mls/hr IV .[id number] PRN PRN Reason: Additional IVPB Infusion Insulin Human Lispro (Humalog Kwikpen (Bkc)) 0 unit SC ACHS [facility]; Protocol Last Admin: 10/21/19 06:37 Dose: 1 units Documented by: Isosorbide Mononitrate (Imdur) 30 mg PO DAILY [facility] Last Admin: 10/21/19 09:45 Dose: 30 mg Documented by: Levothyroxine Sodium (Synthroid) 25 mcg PO DAILY@0600 [facility] Last Admin: 10/21/19 06:37 Dose: 25 mcg Documented by: Lisinopril (Zestril) 2.5 mg PO DAILY [facility] Last Admin: 10/20/19 08:21 Dose: 2.5 mg Documented by: Magnesium Hydroxide (Milk Of Magnesia) 30 ml PO DAILY PRN PRN PRN Reason: Constipation Melatonin (Melatonin) 3 mg PO QHS PRN PRN PRN Reason: INSOMNIA Last Admin: 10/20/19 21:20 Dose: 3 mg Documented by: Methylprednisolone (Solu-Medrol) 40 mg IV Q8 [facility] Last Admin: 10/21/19 06:37 Dose: 40 mg Documented by: Morphine Sulfate () 2 mg IV Q3H PRN PRN PRN Reason: Pain Score 6-10/10 Last Admin: 10/21/19 09:49 Dose: 2 mg Documented by: Nicotine (Nicoderm Cq (Pbkc)) 21 mg TRANSDERM. DAILY [facility] Last Admin: 10/21/19 09:45 Dose: 21 mg Documented by: Nitroglycerin (Nitrostat) 0.4 mg SUBLINGUAL Q5M PRN PRN Reason: CARDIAC/CHEST PAIN Ondansetron HCl (Zofran) 4 mg IV Q8H PRN PRN PRN Reason: NAUSEA/VOMITING Oxycodone HCl (Oxyir) 10 mg PO Q4H PRN PRN PRN Reason: Pain Score 6-10/10 Last Admin: 10/21/19 11:00 Dose: 10 mg Documented by: Pantoprazole Sodium (Protonix) 40 mg PO DAILY [facility] Last Admin: 10/21/19 09:56 Dose: 40 mg Documented by: Psyllium Hydrophilic Mucilloid (Metamucil) 1 packet PO DAILY PRN PRN PRN Reason: Constipation Rosuvastatin Calcium (Crestor) 40 mg PO QHS [facility] Last Admin: 10/20/19 21:19 Dose: 40 mg Documented by: Senna/Docusate Sodium (Senokot-S, Salima-Colace) 2 tablet PO BID PRN PRN PRN Reason: Constipation Sertraline HCl (Zoloft) 50 mg PO DAILY [facility] Last Admin: 10/20/19 08:22 Dose: 50 mg Documented by: Sodium Chloride () 10 - 40 ml IV UD PRN PRN Reason: SALINE FLUSH Last Admin: 10/21/19 09:49 Dose: 10 ml Documented by: Spironolactone (Aldactone) 25 mg PO DAILY [facility] Last Admin: 10/21/19 09:48 Dose: 25 mg Documented by: Throat Lozenges (Cepacol Sore Throat Lozenge) 1 lozenge MUCOUS MEM Q2H PRN PRN PRN Reason: SORE THROAT Discharge Diet: 1800 Calorie Control Diet Discharge Activity: - - Self isolate for 14 days Home Medications: Medications to take at Discharge Isosorbide Mononitrate [Imdur] 30 mg PO DAILY 02/18/17 Albuterol Aerosols [Ventolin Aerosols] 2.5 mg INHALATION Q4H PRN PRN 02/23/17 Pantoprazole Sodium [Protonix] 40 mg PO DAILY 11/15/17 Lisinopril [Zestril] 2.5 mg PO DAILY 05/21/18 Rosuvastatin Calcium [Crestor] 40 mg PO DAILY 06/16/18 Clopidogrel Bisulfate [Plavix] 75 mg PO DAILY 09/01/18 Allopurinol 300 mg PO DAILY 09/20/18 Nitroglycerin 0.4 mg SL PRN PRN 12/01/18 Albuterol Inhaler [Ventolin Hfa] 2 puff INHALATION Q4H PRN PRN 02/24/19 Oxycodone HCl/Acetaminophen [Oxycodon-Acetaminophen 7.5-325] 1 tab PO Q6H PRN 05/02/19 aspirin 325 mg tablet,delayed release 325 mg PO DAILY 10/05/19 spironolactone 25 mg tablet 25 mg PO DAILY 10/05/19 Carvedilol [Coreg (Beta Sina)] 6.25 mg PO BID 10/19/19 Furosemide [Lasix] 40 mg PO BID@1000,1800 10/19/19 Glimepiride [Amaryl] 1 mg PO DAILY 10/19/19 Levothyroxine [Synthroid] 25 mcg PO DAILY@0600 10/19/19 Sertraline HCl [Zoloft] 50 mg PO DAILY 10/19/19 Primary Care Physician: Juan De La Vega III, MD [Primary Care Provider] - Please follow up with your Primary Care Physician in: after the period of quarantine Disposition: Home Minutes spent on discharge:: 35 Patient Condition:: Stable Medical Necessity - Tobacco Use Smoking Status: Current every day smoker Tobacco Use: Cigarettes Meaningful Use Info Meaningful Use Diagnoses (Choose all that apply): None applicable Inpatient E&M: 49816 [facility]
[2019-10-21] MEDS: Lisinopril 2.5 MG Tablet PO (11:08)
[2019-10-21] MEDS: Allopurinol 300 MG Tablet PO (11:09)
[2019-10-21] MEDS: Sertraline 50 MG Tablet PO (11:09)
--- NOTE | 2019-10-21 11:27 | CASEMGMT ---
Social Work Pt is ready for discharge today. Phone call to Marialuisa Arriaza CM at [facility]. Pt currently receives home delivered meals and has a medical alert. No other services at this time. Discharge instructions faxed to [facility]. JOANNE Zazueta
--- NOTE | 2019-10-22 15:06 | CM.UR ---
LEONIE Discharge Follow-Up Phone Call. Lace: 14 Strata: 4 Discharge Date: 10/20 Adm Dx: 10/18 States he has been feeling ok since discharge. States still has some shortness of breath but he is expecting that since he has COPD. Denies that he is on fluid restriction--per readmission review-- had told CM that he was not following his fluid restrictions at home. Instructed that as a diabetic he may feel really thirsty at times but he cannot just continuously drink fluids. Explained it is important to control his blood sugars to help avoid this. Verb understanding. Reinforced 14 days self isolation. Verb understanding. Reinforced to contact Dr. De La Vega to schedule appt after 14 days of self isolation. verb understanding. No new medications were given. Denies questions about medications. Denies questions about discharge instructions. Encouraged him to call PCP if any questions should arise. Verb understanding. Asked if he had any recommendations for [facility] to improve. Denies stating it is a great place. Alyson Moran RN, CCM.
== END 2019-10-21 12:40 | disposition home or self-care (01) | DRG 191 ==
LOC: ED 15:37 → ICU 16:44 → MS2 10-21 06:26
PROVIDERS: Internal Medicine Critical Care Medicine; Admitting Provider Family Medicine; Emergency Provider Emergency Medicine; PCP Family Medicine; Visit Provider Internal Medicine
DX: J44.1 Chronic obstructive pulmonary disease with (acute) exacerbation (principal); I50.22 Chronic systolic (congestive) heart failure; I13.0 Hypertensive heart and chronic kidney disease with heart failure and stage 1 through stage 4 chronic kidney disease, or unspecified chronic kidney disease; E78.5 Hyperlipidemia, unspecified; E11.22 Type 2 diabetes mellitus with diabetic chronic kidney disease; N18.3 Chronic kidney disease, stage 3 (moderate); K21.9 Gastro-esophageal reflux disease without esophagitis; I25.10 Atherosclerotic heart disease of native coronary artery without angina pectoris; F17.210 Nicotine dependence, cigarettes, uncomplicated; M10.9 Gout, unspecified; M54.30 Sciatica, unspecified side; G89.29 Other chronic pain; I25.5 Ischemic cardiomyopathy; Z79.84 Long term (current) use of oral hypoglycemic drugs; Z95.810 Presence of automatic (implantable) cardiac defibrillator; Z95.1 Presence of aortocoronary bypass graft; Z95.5 Presence of coronary angioplasty implant and graft
CPT/HCPCS: 36415; 36600; 71045; 71250; 80048; 80076; 82728; 82803; 82962; 83605; 83615; 83735; 83880; 84145; 84484; 85025; 87040; 87633; 87635; 87804; 93005; 94640; 99251; 99285; 99406; A4216; G0463; U0004

== ENCOUNTER 2019-11-03 07:48 | Inpatient (IN) | payer MEDICARE, MEDICAID, SELFPAY ==
[2019-10-19 17:29] VITALS: BMI 30.2
[2019-11-03] VITALS (23 sets, daily range): BP systolic 76–112; BP diastolic 48–73; PULSE 68–99; RESP 16–24; TEMP 36–36.7; O2SAT 90–99; BMI 29.7; BMI 31.0
--- NOTE | 2019-11-03 08:04 | RAD_ITS ---
STUDY: X-RAY CHEST REASON FOR EXAM: Male, 69 years old. Dry cough, sob, recent COVID test, hx COPD TECHNIQUE: Single AP portable view of the chest. COMPARISON: Comparison is made with prior examination October 20, 2019. FINDINGS: Mild increased markings at the lung bases worse on the left side. This has progressed as compared to prior study. There is no demonstrated pleural abnormality. Sternal cerclage wires and vascular clips are present from a prior sternotomy and coronary artery bypass graft procedure (CABG). A left-sided dual-chamber pacemaker is seen. Normal mediastinum and serjio. Normal visualized pulmonary arteries. There is atherosclerotic calcification of the aortic arch with tortuosity. There are degenerative changes of the visualized thoracic spine. Normal visualized ribs, clavicles, and shoulders. There is no demonstrated abnormality of the visualized soft tissue structures of the upper abdomen. RAD/Chest 1 View (Portable) IMPRESSION: Increased markings at the lung bases worse on the left side. This has progressed as compared to prior study. Electronically Signed: Arcenio Leary, at 9:36 EDT , Service support ,
--- NOTE | 2019-11-03 08:04 | EKG12_ITS ---
Test Reason : SOB Blood Pressure : / mmHG Vent. Rate : 088 BPM Atrial Rate : 088 BPM P-R Int : 146 ms QRS Dur : 110 ms QT Int : 398 ms P-R-T Axes : 054 -16 136 degrees QTc Int : 481 ms Normal sinus rhythm ST & T wave abnormality, consider lateral ischemia Prolonged QT Abnormal ECG Confirmed by SHAVONNE LUNDBERG, LISA ([id number]), editor sound LANDRY YARBROUGH ([id number]) on 11/07/2019 8:31:33 AM Referred By: MOMO Confirmed By:LISA MARVIN MD
--- NOTE | 2019-11-03 08:06 | ED.VIS.GEN ---
History of Present Illness Chief Complaint: Shortness of Breath Informant: Patient Onset: Days Context: Gradual Onset Current Severity: Mild Maximum Severity: Moderate Narrative: Patient presents with a couple day history of increasing shortness of breath. He reports a dry cough. He has had posttussive emesis. He does not believe he had fever at home but has not been able to check his temperature. Patient was admitted in late September for COPD exacerbation. He states he symptoms did improve after that and then worsened again over the past couple of days. He is not currently on antibiotics or steroids. He does not feel like he is wheezing. - Past Medical History (1) Benign essential hypertension Status: Chronic (2) CAD (coronary artery disease) Status: Chronic (3) COPD (chronic obstructive pulmonary disease) Status: Chronic (4) Chronic back pain Status: Chronic (5) Chronic renal failure, stage 3 (moderate) Status: Chronic (6) Chronic systolic (congestive) heart failure Status: Chronic (7) Gastroesophageal reflux disease Status: Chronic (8) Gout Status: Chronic (9) H/O coronary artery bypass surgery Status: Chronic Comment: HUMPHREY-LAD, SVG-D1, SVG-OM (10) Hyperlipidemia Status: Chronic (11) Ischemic cardiomyopathy Status: Chronic Comment: 25% ejection fraction in November 2016 (12) Presence of automatic implantable cardioverter-defibrillator Status: Chronic (13) Type 2 diabetes mellitus Status: Chronic Past Medical History - Allergies and Home Meds Allergies/Adverse Reactions: Allergies chlorpromazine HCl [From Thorazine] Allergy (Severe, Verified 11/03/19 07:50) Hives PER PATIENT tramadol HCl [From Ultram] Allergy (Severe, Verified 11/03/19 07:50) Hives PER PATIENT codeine Allergy (Intermediate, Verified 11/03/19 07:50) Hives atorvastatin Adverse Reaction (Intermediate, Verified 11/03/19 07:50) Other LEG PAIN/CRAMPS cyclobenzaprine [From Flexeril] Adverse Reaction (Verified 11/03/19 07:50) Upset Stomach metformin Adverse Reaction (Verified 11/03/19 07:50) Upset Stomach naproxen Adverse Reaction (Verified 11/03/19 07:50) Upset Stomach promethazine [From Phenergan] Adverse Reaction (Verified 11/03/19 07:50) Other CONFUSION Primary Care Physician: Juan De La Vega III, MD [Primary Care Provider] - Prior records reviewed: Yes Surgical History: angioplasty - stents x 10, coronary bypass surgery, - - AICD placement, back surgery x 2, hernia repair, PCI. Smoking Status: Current every day smoker - Family History Paternal Family History: Family History (Last Reviewed 10/07/19 @ 07:06 by NEFTALI Evangelista) Brother CAD (coronary artery disease) Myocardial infarction Sudden cardiac Mother Cancer Hypertension Father Cancer COPD (chronic obstructive pulmonary disease) Family History: Reports: Cancer, Heart Disease Maternal Family History: Family History (Last Reviewed 10/07/19 @ 07:06 by NEFTALI Evangelista) Brother CAD (coronary artery disease) Myocardial infarction Sudden cardiac Mother Cancer Hypertension Father Cancer COPD (chronic obstructive pulmonary disease) Family History: Reports: - - Patient notes a paternal family history of chronic lung disease, lung cancer with history of tobacco use. Review of Systems General: Denies: Chills, Fever Eyes: Denies: Visual changes - bilaterally ENT: Denies: Bilateral ear pain Cardiovascular: Denies: Chest pain Respiratory: Reports: Dyspnea, Cough. Denies: Sputum Gastrointestinal: Reports: Vomiting - Posttussive vomiting. Denies: Abdominal pain, Diarrhea Genitourinary: Denies: Dysuria Musculoskeletal: Denies: Swelling, Extremity Pain Skin: Denies: Rash Neurological: Denies: Headache Hematologic: Denies: Easy bruising, Easy bleeding Allergy: Denies: Uticaria Physical Exam Vital Signs/Narrative: Vital Signs Temp Pulse Resp BP Pulse Ox 11/03/19 07:49 97.8 F 97 22 H 99/73 94 Inital Vital Signs reviewed: Yes General: Well nourished, Well developed Head: Normocephalic ENT: Moist mucous membranes Neck: Supple Cardiovascular: Regular rate, Regular rhythm Respiratory: No distress, - - Crackles left base Abdomen: Soft, Nontender Extremities: Nontender, No edema Skin: Normal color Neurological: Alert, Oriented x3 Psychological: Normal affect Diagnostic/Tx/Re-eval Impressions Chest X-Ray 11/03/19 08:04 IMPRESSION: Increased markings at the lung bases worse on the left side. This has progressed as compared to prior study. Electronically Signed: Arcenio Leary, at 9:36 EDT , Service support , 11/03/19 08:04 Chest 1 View (Portable) [RAD] Stat Laboratory Results 11/03/19 11/03/19 11/03/19 08:10 08:10 08:10 WBC 10.4 RBC 4.93 Hgb 14.5 Hct 44.6 MCV 90.5 MCH 29.4 MCHC 32.5 RDW Std Deviation 45.7 H RDW Coeff of Maggie 13.8 Plt Count 220 MPV 9.4 Immature Gran % (Auto) 0.500 Neut % (Auto) 77.2 H Lymph % (Auto) 13.8 L [place] % (Auto) 7.4 Eos % (Auto) 0.8 Baso % (Auto) 0.3 Absolute Neuts (auto) 8.0 H Absolute Lymphs (auto) 1.43 Nucleated RBC % 0 Sodium 134 L Potassium 4.4 Chloride 98 Carbon Dioxide 28.0 Anion Gap 8 BUN 27 H Creatinine 1.82 H Estim Creat Clear Calc 37.58 Est GFR (MDRD) Af Amer 48 L Est GFR (MDRD) Non-Af 40 L BUN/Creatinine Ratio 14.8 Glucose 93 Lactic Acid 1.9 Calcium 9.3 Troponin I < 0.015 B-Natriuretic Peptide 11/03/19 08:10 WBC RBC Hgb Hct MCV MCH MCHC RDW Std Deviation RDW Coeff of Maggie Plt Count MPV Immature Gran % (Auto) Neut % (Auto) Lymph % (Auto) [place] % (Auto) Eos % (Auto) Baso % (Auto) Absolute Neuts (auto) Absolute Lymphs (auto) Nucleated RBC % Sodium Potassium Chloride Carbon Dioxide Anion Gap BUN Creatinine Estim Creat Clear Calc Est GFR (MDRD) Af Amer Est GFR (MDRD) Non-Af BUN/Creatinine Ratio Glucose Lactic Acid Calcium Troponin I B-Natriuretic Peptide 144.9 H - EKG Initial EKG Interpretation: Sinus Rhythm - Sinus at [address] depression and T wave inversion. This actually looks improved when compared to prior study of October 20, 2019. - Medical Decision Making Patient was given Tylenol and Zofran. He is given IV fluids. Patient's blood pressure did drop into the 80s systolic. He is responding to IV fluids and current blood pressure is 100/65 after 1500 cc of fluid. An additional 1 L has been ordered. Patient is given Rocephin and Zithromax along with a dose of steroids given his baseline COPD. Patient does have an increase in his creatinine over baseline. I suspect that he has dehydration. With his respiratory symptoms and history of COPD he will be covered for respiratory etiology as well. ED Disposition - Plan for ED Patient: Disposition: Home or Assisted Living Diagnosis: COPD (chronic obstructive pulmonary disease), Dehydration Referrals: Juan De La Vega III, MD [Primary Care Provider] -
[2019-11-03 08:26] LABS: Absolute Lymphocyte Count 1.43 X10^3/uL (0.83-4.51); Basophil# 0.03 X10^3/uL; Basophil% 0.3 % (0-1); Eosinophil# 0.08 X10^3/uL; Eosinophils% 0.8 % (0-5); Hematocrit 44.6 % (40-54); Hemoglobin 14.5 g/dL (13.0-16.5); Lymphocyte # 1.43 X10^3/ul (4.0); Lymphocyte % 13.8 % (19-41); Mean Corp Hgb Conc 32.5 g/dL (32-36); Mean Corpuscular Hgb 29.4 pg (27.0-32.0); Mean Corpuscular Volume 90.5 fL (80-94); Mean Platelet Vol. 9.4 fl (6.2-12.0); Monocyte# 0.77 X10^3/uL; Monocyte% 7.4 % (0-10); NRBC Flagged by Analyzer 0 % (0-5); Neutrophil % 77.2 % (47-70); Platelet Count 220 K/mm3 (150-450); RBC Distribution Width CV 13.8 % (11.6-14.6); RBC Distribution Width SD 45.7 fl (35.1-43.9); Red Blood Count 4.93 M/mm3 (4.6-6.2); White Blood Count 10.4 K/mm3 (4.4-11.0)
[2019-11-03 08:41] LABS: Anion Gap 8 (5-15); BUN 27 mg/dL (7-18); BUN/Creat Ratio 14.8 RATIO (10-20); Calcium,Total 9.3 mg/dL (8.5-10.1); Chloride 98 mmol/L (98-107); Creatinine, Serum 1.82 mg/dL (0.70-1.30); EST Glomerular Filtration Rate 40 mL/min (>60); Est Glom Filt Rate - Afr Amer 48 mL/min (>60); Estimated Creatinine Clearance 37.58 ml/min; Glucose 93 mg/dL (74-106); Potassium 4.4 mmol/L (3.5-5.1); Sodium Level 134 mmol/L (136-145)
[2019-11-03 08:47] LABS: BNP,B-Type NATRIURETIC PEPTIDE 144.9 pg/mL (0-100)
[2019-11-03] MEDS: Acetaminophen 500 MG Tablet 1000 MG PO (08:47)
[2019-11-03] MEDS: Ondansetron 4 MG/2 ML Vial IV (08:48)
[2019-11-03 08:49] LABS: Lactic Acid 1.9 mmol/L (0.4-1.9)
[2019-11-03] MEDS: 0.9% Normal Saline 1,000 ML 999 ML IV ×2 (08:54→09:43)
[2019-11-03] MEDS: MethylPREDNISolone 125 MG/2 ML Vial IV (09:43)
[2019-11-03] MEDS: Ibuprofen 200 MG Tablet 400 MG PO (09:43)
[2019-11-03] MEDS: Ceftriaxone 1 GM/50 ML BAG IV (09:44)
[2019-11-03] MEDS: Metoclopramide 10 MG/2 ML Vial 5 MG IV ×2 (09:57→16:41)
--- NOTE | 2019-11-03 12:28 | PCM.HP.STD ---
Problem List (1) Acute respiratory failure Status: Acute Qualifiers: Respiratory failure complication: unspecified whether with hypoxia or hypercapnia Qualified Code(s): J96.00 - Acute respiratory failure, unspecified whether with hypoxia or hypercapnia (2) Suspected 2019-nCoV infection Status: Inactive (3) Dehydration Status: Inactive (4) Unstable angina Status: Inactive (5) COPD exacerbation Status: Acute (6) History of left heart catheterization Status: Chronic Comment: LVEF: by LV gram 15-20 %; [place] Multivessel CAD; Occluded [place] mid LAD. Occluded [place] proximal RCA. Occluded SVG to DIAG. Occluded SVG to RCA. Occluded HUMPHREY to LAD. Severe 85% stenosis in last remaining vessel of SVG to LCX with widely patent SVG stents. Severe LV dysfunction. Referred for immediate PCI: Will tx to [facility] for high risk PCI to last remaining vessel of SVG to OM. 06/29/[address] DANA @ [facility] [place] (7) Hypoxia, sleep related Status: Chronic (8) Coarse tremors Status: Chronic (9) Headache Status: Chronic (10) ARIANDA (obstructive sleep apnea) Status: Suspected (11) COPD (chronic obstructive pulmonary disease) Status: Chronic Qualifiers: COPD type: unspecified COPD (12) Obesity (BMI 30.0-34.9) Status: Chronic (13) Nicotine dependence Status: Chronic Qualifiers: Nicotine product type: other Substance use status: in remission Qualified Code(s): F17.291 - Nicotine dependence, other tobacco product, in remission (14) Gout Status: Chronic (15) Degenerative cervical disc Status: Chronic (16) Chronic back pain Status: Chronic Qualifiers: Back pain location: back pain in unspecified location Back pain laterality: unspecified Qualified Code(s): M54.9 - Dorsalgia, unspecified; G89.29 - Other chronic pain (17) Presence of automatic implantable cardioverter-defibrillator Status: Chronic (18) H/O coronary artery bypass surgery Status: Chronic Comment: HUMPHREY-LAD, SVG-D1, SVG-OM (19) Chronic renal failure, stage 3 (moderate) Status: Chronic (20) Chronic systolic (congestive) heart failure Status: Chronic (21) Stented coronary artery Status: Chronic Comment: has had 7 stents as of 06/15/17 (22) Ischemic cardiomyopathy Status: Chronic Comment: 25% ejection fraction in November 2016 (23) V-tach Status: Chronic Comment: has an AICD (24) Benign essential hypertension Status: Chronic (25) Gastroesophageal reflux disease Status: Chronic Qualifiers: Esophagitis presence: esophagitis presence not specified (26) Hyperlipidemia Status: Chronic Qualifiers: Hyperlipidemia type: unspecified Qualified Code(s): E78.5 - Hyperlipidemia, unspecified (27) Type 2 diabetes mellitus Status: Chronic Qualifiers: Diabetes mellitus long term care administrator insulin use: without retirement use Diabetes mellitus complication status: with other specified complication Qualified Code(s): E11.69 - Type 2 diabetes mellitus with other specified complication (28) Morbid obesity Status: Chronic (29) CAD (coronary artery disease) Status: Chronic Qualifiers: Coronary Disease-Associated Artery/Lesion type: unspecified vessel or lesion type [place] vs. transplanted heart: unspecified whether [place] or transplanted heart Associated angina: angina presence unspecified Qualified Code(s): I25.10 - Atherosclerotic heart disease of [place] coronary artery without angina pectoris History of Present Illness Date of Admission: 11/03/19 Chief Complaint: Shortness of breath for past few days The patient is a 69 year old M with multiple comorbidities including COPD and CHF came to ER with progressive worsening of shortness of breath for few days. He has dry cough and has been short of breath for 1 week after recent admission 10/18 to COPD exacerbation. Patient denies any fever or chills. [] In ER, patient was noted to be hypotensive, blood pressure 81/52, heart rate 61, respiratory rate 24 with pulse ox 94% on 2 L of oxygen. Patient does not use oxygen at home. The patient was resuscitated with IV fluid in ED and blood pressure currently 101/61. He was also given 1 dose of ceftriaxone and Zithromax in ED. Patient further said he has been taking daily weight at home and it is stable about 202 pounds. Basic labs done in ER shows sodium 134, BUN/creatinine 27/1.82, increased from baseline 38/1.38, BNP 144/9. First troponin negative. Chest x-ray independently reviewed and to me it seems similar to the previous chest x-ray of 10/20/2019 although officially reported as increased markings on the left side as compared to right side. Normal serjio and mediastinum. Past Medical History Past Medical History (Chronic Problems): Chronic Problems (Last Reviewed 10/07/19 @ 07:06 by NEFTALI Evangelista) History of left heart catheterization (Chronic 06/29/19) LVEF: by LV gram 15-20 %; [place] Multivessel CAD; Occluded [place] mid LAD. Occluded [place] proximal RCA. Occluded SVG to DIAG. Occluded SVG to RCA. Occluded HUMPHREY to LAD. Severe 85% stenosis in last remaining vessel of SVG to LCX with widely patent SVG stents. Severe LV dysfunction. Referred for immediate PCI: Will tx to [facility] for high risk PCI to last remaining vessel of SVG to OM. 06/29/19 [address] DANA @ [facility] [place] Hypoxia, sleep related (Chronic) Coarse tremors (Chronic) Headache (Chronic) COPD (chronic obstructive pulmonary disease) (Chronic) Obesity (BMI 30.0-34.9) (Chronic) Nicotine dependence (Chronic) Gout (Chronic) Degenerative cervical disc (Chronic) Chronic back pain (Chronic) Presence of automatic implantable cardioverter-defibrillator (Chronic) H/O coronary artery bypass surgery (Chronic ~2008) HUMPHREY-LAD, SVG-D1, SVG-OM Chronic renal failure, stage 3 (moderate) (Chronic) Chronic systolic (congestive) heart failure (Chronic) Stented coronary artery (Chronic ~12/2016) has had 7 stents as of 06/15/17 Ischemic cardiomyopathy (Chronic) 25% ejection fraction in November 2016 V-tach (Chronic) has an AICD Benign essential hypertension (Chronic) Gastroesophageal reflux disease (Chronic) Hyperlipidemia (Chronic) Type 2 diabetes mellitus (Chronic) Morbid obesity (Chronic) CAD (coronary artery disease) (Chronic) Medical History: Medical History (Last Reviewed 10/07/19 @ 07:06 by NEFTALI Evangelista) Nicotine dependence (Chronic) F17.200 Gout (Chronic) M10.9 Degenerative cervical disc (Chronic) M50.30 Chronic back pain (Chronic) M54.9, G89.29 Chronic renal failure, stage 3 (moderate) (Chronic) N18.3 Chronic systolic (congestive) heart failure (Chronic) I50.22 Ischemic cardiomyopathy (Chronic) I25.5 25% ejection fraction in November 2016 V-tach (Chronic) I47.2 has an AICD Benign essential hypertension (Chronic) I10 Gastroesophageal reflux disease (Chronic) K21.9 Hyperlipidemia (Chronic) E78.5 Type 2 diabetes mellitus (Chronic) E11.9 Morbid obesity (Chronic) E66.01 CAD (coronary artery disease) (Chronic) I25.10 Tubular adenoma of colon (Inactive) D12.6 Allergies chlorpromazine HCl [From Thorazine] Allergy (Severe, Verified 11/03/19 07:50) Hives PER PATIENT tramadol HCl [From Ultram] Allergy (Severe, Verified 11/03/19 07:50) Hives PER PATIENT codeine Allergy (Intermediate, Verified 11/03/19 07:50) Hives atorvastatin Adverse Reaction (Intermediate, Verified 11/03/19 07:50) Other LEG PAIN/CRAMPS cyclobenzaprine [From Flexeril] Adverse Reaction (Verified 11/03/19 07:50) Upset Stomach metformin Adverse Reaction (Verified 11/03/19 07:50) Upset Stomach naproxen Adverse Reaction (Verified 11/03/19 07:50) Upset Stomach promethazine [From Phenergan] Adverse Reaction (Verified 11/03/19 07:50) Other CONFUSION Home Medications: Ambulatory Orders Medication Instructions Recorded Isosorbide Mononitrate [Imdur] 30 mg PO DAILY 02/18/17 Albuterol Aerosols [Ventolin 2.5 mg INHALATION Q4H PRN PRN 02/23/17 Aerosols] Pantoprazole Sodium [Protonix] 40 mg PO DAILY 11/15/17 Lisinopril [Zestril] 2.5 mg PO DAILY 05/21/18 Rosuvastatin Calcium [Crestor] 40 mg PO DAILY 06/16/18 Clopidogrel Bisulfate [Plavix] 75 mg PO DAILY 09/01/18 Allopurinol 300 mg PO DAILY 09/20/18 Nitroglycerin 0.4 mg SL PRN PRN 12/01/18 Albuterol Inhaler [Ventolin Hfa] 2 puff INHALATION Q4H PRN PRN 02/24/19 Oxycodone HCl/Acetaminophen 1 tab PO Q6H PRN 05/02/19 [Oxycodon-Acetaminophen 7.5-325] aspirin 325 mg tablet,delayed 325 mg PO DAILY 10/05/19 release spironolactone 25 mg tablet 25 mg PO DAILY 10/05/19 Carvedilol [Coreg (Beta Sina)] 6.25 mg PO BID 10/19/19 Furosemide [Lasix] 40 mg PO BID@1000,1800 10/19/19 Glimepiride [Amaryl] 1 mg PO DAILY 10/19/19 Levothyroxine [Synthroid] 25 mcg PO DAILY@0600 10/19/19 Sertraline HCl [Zoloft] 50 mg PO DAILY 10/19/19 Surgical History: Surgical History (Last Reviewed 10/07/19 @ 07:06 by NEFTALI Evangelista) History of left heart catheterization (Chronic) Onset Date: 06/29/19 Z98.890 LVEF: by LV gram 15-20 %; [place] Multivessel CAD; Occluded [place] mid LAD. Occluded [place] proximal RCA. Occluded SVG to DIAG. Occluded SVG to RCA. Occluded HUMPHREY to LAD. Severe 85% stenosis in last remaining vessel of SVG to LCX with widely patent SVG stents. Severe LV dysfunction. Referred for immediate PCI: Will tx to [facility] for high risk PCI to last remaining vessel of SVG to OM. 06/29/19 [address] DANA @ [facility] [place] Presence of automatic implantable cardioverter-defibrillator (Chronic) Z95.810 H/O coronary artery bypass surgery (Chronic) Onset Date: ~2008 Z95.1 HUMPHREY-LAD, SVG-D1, SVG-OM Stented coronary artery (Chronic) Onset Date: ~12/2016 has had 7 stents as of 06/15/17 Hx of hernia repair (Inactive) Z98.890, Z87.19 Previous back surgery (Inactive) Z98.890 Surgical History: angioplasty - stents x 10, coronary bypass surgery, - - AICD placement, back surgery x 2, hernia repair, PCI. Psychiatric History: No pertinent psych hx Smoking Status: Never smoker - *Family History Paternal Family History: Family History (Last Reviewed 10/07/19 @ 07:06 by NEFTALI Evangelista) Brother CAD (coronary artery disease) Myocardial infarction Sudden cardiac Mother Cancer Hypertension Father Cancer COPD (chronic obstructive pulmonary disease) History Items: Cancer, Heart Disease Maternal Family History: Family History (Last Reviewed 10/07/19 @ 07:06 by NEFTALI Evangelista) Brother CAD (coronary artery disease) Myocardial infarction Sudden cardiac Mother Cancer Hypertension Father Cancer COPD (chronic obstructive pulmonary disease) History Items: - - Patient notes a paternal family history of chronic lung disease, lung cancer with history of tobacco use. Review of Systems Constitutional: Reports: Chills. Denies: Fever HEENT: Denies: Head Aches, Sinus Congestion, Sinus Drainage Cardiovascular: Denies: Chest Pain, Chest Pressure, Chest Tightness, Palpitations Respiratory: Reports: Cough, Shortness of Breath, Shortness of breath at rest, Shortness of breath upon exertion, Wheezing. Denies: Hemoptysis, Sputum production Gastrointestinal: Denies: Abdominal Pain, Nausea, Vomiting Genitourinary: Denies: Dysuria Musculoskeletal: Reports: Back Pain, Joint Pain, Neck Pain. Denies: Joint Tenderness Skin: Denies: Rash, Wounds Neurological: Reports: Balance problems. Denies: Focal weakness, Numbness, Tingling Psychiatric: Denies: Anxiety, Depression, Homicidal Ideations, Suicidal Ideations Hematologic/ Lymphatic: Denies: Easy Bruising, Easy Bleeding VTE Information - Inpt Only VTE Present on Admission: No VTE Mechan Device Prophylaxis: None VTE Pharm Prophylaxis ordered?: Yes - Physical Exam Vitals/I&O's: Vital Signs Temp Pulse Resp BP Pulse Ox 97.9 F 76 18 95/57 L 99 11/03/19 11:08 11/03/19 11:08 11/03/19 11:08 11/03/19 11:08 11/03/19 11:08 Oxygen Flow Rate (L/min) 2 Oxygen Delivery Method Nasal Cannula Weight: 204 lb 3.2 oz Body Mass Index (BMI) 31.0 Finger Stick Blood Glucose 111 Intake and Output for Last 24 Hours 11/01/19 11/02/19 11/03/19 23:59 23:59 23:59 Intake Total 2805 / 2805 Balance 2805 / 2805 General: Alert, Oriented x3, Cooperative HEENT: Atraumatic, PERRLA, EOMI, Normocephalic Oral: No Gingival or Mucosal Lesions/ Ulcerations, Dry Mucosa Neck: Supple, No JVD, Negative Carotid Bruits Lungs: Diminished - Air entry diminished diffusely in all lung bui predominantly in left lung base, Rhonchi, Short of Breath, Wheezes Cardiovascular: Regular rate, Regular Rhythm, Normal S1, Normal S2, No murmurs, - - Left subclavicular pacemaker Abdomen: Bowel Sounds Present, Soft, Non Tender Extremities: No edema - Patient edema much controlled., Capillary Refill Less than 3 Seconds Skin: No rashes, No breakdown Musculoskeletal: Arthritic Changes, Tenderness - Tenderness in lumbar spine and cervical spine. Surgical scar present right lumbar spine. Neurological: Cranial nerves II-XII grossly intact, Deep Tendon Reflexes 2+/4 and Symmetrical, Neuro grossly intact Psych/Mental Status: Normal Affect, Appropriate Microbiology Past 72 Hours 11/03/19 08:15 Mucosa - Nose Respiratory Panel (PCR) - Final Laboratory Results 11/03/19 08:10: WBC 10.4, RBC 4.93, Hgb 14.5, Hct 44.6, MCV 90.5, MCH 29.4, MCHC 32.5, RDW Std Deviation 45.7 H, RDW Coeff of Maggie 13.8, Plt Count 220, MPV 9.4, Immature Gran % (Auto) 0.500, Neut % (Auto) 77.2 H, Lymph % (Auto) 13.8 L, [place] % (Auto) 7.4, Eos % (Auto) 0.8, Baso % (Auto) 0.3, Absolute Neuts (auto) 8.0 H, Absolute Lymphs (auto) 1.43, Nucleated RBC % 0 11/03/19 08:10: Sodium 134 L, Potassium 4.4, Chloride 98, Carbon Dioxide 28.0, Anion Gap 8, BUN 27 H, Creatinine 1.82 H, Estim Creat Clear Calc 37.58, Est GFR (MDRD) Af Amer 48 L, Est GFR (MDRD) Non-Af 40 L, BUN/Creatinine Ratio 14.8, Glucose 93, Calcium 9.3, Troponin I < 0.015 11/03/19 08:10: Lactic Acid 1.9 11/03/19 08:10: B-Natriuretic Peptide 144.9 H Current Medications Sodium Chloride () 10 - 40 ml IV UD PRN PRN Reason: SALINE FLUSH Assessment/Plan All Active Problems (Last Reviewed 10/07/19 @ 07:06 by NEFTALI Evangelista) Acute respiratory failure (Acute) COPD exacerbation (Acute) COPD exacerbation (Resolved) Cardiac enzymes elevated (Resolved) The patient is a 69 year old M with multiple comorbidities including COPD and CHF came to ER with progressive worsening of shortness of breath for few days along with dry cough. Patient was found hypotensive 81/52 in ER. Chest x-ray independently reviewed and to me it seems similar to the previous chest x-ray of 10/20/2019 although officially reported as increased markings on the left side as compared to right side. EKG shows normal sinus rhythm with nonspecific ST-T wave abnormality. QTC 481 ms. 1. COPD exacerbation with acute hypoxic respiratory insufficiency: Patient is being admitted in PCU. Patient respiratory panel is negative. Recently patient respiratory panel uncovered 19 was negative during previous admission 10/18 to 10/20. On scheduled DuoNeb, PRN albuterol, IV Solu-Medrol, incentive spirometry, chest physiotherapy and Mucinex. Sputum culture ordered. Blood cultures x2 ordered from ER. Will follow off antibiotic. Patient does not have fever. Had 1 dose of IV ceftriaxone and Zithromax in ER today. 2. Hypotension with dehydration in ED: Patient had 1.5 L normal saline bolus in ER. Does not need further IV fluid. Blood pressure is stable. Hold Lasix and spironolactone today. Hold antihypertensive medications today. 3. Acute kidney injury on CKD stage III: BUN/creatinine 27/1.82, increased from baseline 38/1.38. Monitor intake and output, electrolytes and kidney function. Monitor daily weight. 4.. Coronary artery disease WITH Ischemic cardiomyopathy with EF 15% status post AICD: Patient had recent recent PCI SVG to OM1. This time, stable no chest pain. Continue patient cardiac medication. EKG shows QTC 481 ms. On sertraline 50 mg daily. 5. Chronic systolic congestive heart failure: Stable. Hold diuretics today as he is hypotensive. 6. Diabetes mellitus type II; Accu-Cheks before meals and at bedtime with sliding scale coverage ordered. 7. Dyslipidemia: On home dose of statin 8. GERD patient is on PPI 9 chronic back pain with sciatica with history of pain seeking behavior 10. Gout -On allopurinol 11. DVT prophylaxis ~ on enoxaparin Advanced lab directive/living will: Living will/advanced directive/end of life care: Patient does not have living will or advanced directive. After discussion of procedures involved with full code, DNR CC arrest and DNR CC, the patient opted for full code Patient does want artificial life support including intubation, tube feed, ventilator and/chest compression, central venous catheter, vasopressor and DC shock if needed DNR CC arrest. Total time spent in [id number] encounter in discussion of advanced directive 16 minutes. Clinical Impression(s) from Imaging Studies Chest X-Ray 11/03/19 08:04 IMPRESSION: Increased markings at the lung bases worse on the left side. This has progressed as compared to prior study. Inpatient E&M: 23920 Init Hosp L3 Procedures: 51951 Advncd Care Plan 30 Min
--- NOTE | 2019-11-03 13:13 | NURSING ---
pt took all am meds at home this am
[2019-11-03 13:15] LABS: Bedside Glucose 85 mg/dL (70-110)
[2019-11-03] MEDS: Enoxaparin 40 MG/0.4 ML Syringe SC (13:20)
[2019-11-03] MEDS: 0.9% Saline Lock 10 ML Syringe IV ×4 (13:20→20:06)
[2019-11-03] MEDS: Morphine 2 MG/ML Syringe IV ×2 (13:20→20:06)
[2019-11-03] MEDS: Ipratropium/Albuterol Sulfate 3 ML AMPUL.NEB INHALATION ×2 (13:33→19:04)
[2019-11-03] MEDS: guaiFENesin 1,200 MG Tablet 1200 MG PO ×2 (14:11→21:57)
[2019-11-03] MEDS: oxyCODONE 5 MG Tablet PO (15:28)
[2019-11-03] MEDS: Acetaminophen 325 MG Tablet 650 MG PO (15:28)
[2019-11-03] MEDS: proCHLORPERazine 10 MG/2 ML Vial IV (15:29)
--- NOTE | 2019-11-03 16:48 | NURSING ---
2l nc placed on pt. po drops as pt nods off to sleep.
[2019-11-03 16:50] LABS: Bedside Glucose 130 mg/dL (70-110)
[2019-11-03] MEDS: Senna/Docusate Sodium 1 Tablet 2 TABLET PO (21:56)
[2019-11-03] MEDS: MELATONIN 3 MG TABLET PO (21:56)
[2019-11-03] MEDS: Carvedilol 6.25 MG Tablet PO (21:57)
[2019-11-03] MEDS: Rosuvastatin 20 MG Tablet 40 MG PO (21:57)
[2019-11-03 22:06] LABS: Bedside Glucose 244 mg/dL (70-110)
[2019-11-04] VITALS (15 sets, daily range): BP systolic 100–118; BP diastolic 57–68; PULSE 81–102; RESP 17–20; TEMP 36.4–36.8; O2SAT 92–97
[2019-11-04] MEDS: Acetaminophen 325 MG Tablet 650 MG PO (03:52)
[2019-11-04] MEDS: oxyCODONE 5 MG Tablet PO (03:52)
[2019-11-04] MEDS: Metoclopramide 10 MG/2 ML Vial 5 MG IV ×3 (06:38→17:14)
[2019-11-04] MEDS: Insulin Lispro 100 UNIT/ML INSULN.PEN SC ×4 (06:39→21:31)
[2019-11-04] MEDS: Levothyroxine 25 MCG TABLET PO (06:39)
[2019-11-04] MEDS: 0.9% Saline Lock 10 ML Syringe IV ×5 (06:39→21:38)
[2019-11-04 06:40] LABS: Bedside Glucose 167 mg/dL (70-110)
--- NOTE | 2019-11-04 07:42 | CPS ---
Pt states he does not wear bipap at home and states he is not going to wear it here at the hospital.
[2019-11-04 07:48] LABS: Anion Gap 5 (5-15); BUN 35 mg/dL (7-18); BUN/Creat Ratio 22.7 RATIO (10-20); Calcium,Total 8.7 mg/dL (8.5-10.1); Chloride 104 mmol/L (98-107); Creatinine, Serum 1.54 mg/dL (0.70-1.30); EST Glomerular Filtration Rate 48 mL/min (>60); Est Glom Filt Rate - Afr Amer 58 mL/min (>60); Estimated Creatinine Clearance 44.42 ml/min; Glucose 166 mg/dL (74-106); Potassium 4.7 mmol/L (3.5-5.1); Sodium Level 136 mmol/L (136-145)
[2019-11-04] MEDS: Aspirin E.C. 325 MG Tablet PO (09:37)
[2019-11-04] MEDS: Isosorbide Mononitrate 30 MG Tablet PO (09:37)
[2019-11-04] MEDS: Spironolactone 25 MG Tablet PO (09:37)
[2019-11-04] MEDS: Glimepiride 1 MG Tablet PO (09:37)
[2019-11-04] MEDS: Carvedilol 6.25 MG Tablet PO ×2 (09:37→21:31)
[2019-11-04] MEDS: Pantoprazole Sodium 40 MG Tablet PO (09:38)
[2019-11-04] MEDS: Senna/Docusate Sodium 1 Tablet 2 TABLET PO (09:38)
[2019-11-04] MEDS: Clopidogrel Bisulfate 75 MG Tablet PO (09:38)
[2019-11-04] MEDS: Enoxaparin 40 MG/0.4 ML Syringe SC (09:38)
[2019-11-04] MEDS: Furosemide 40 MG Tablet PO ×2 (09:38→17:12)
[2019-11-04] MEDS: Morphine 2 MG/ML Syringe IV (09:39)
[2019-11-04] MEDS: Sertraline 50 MG Tablet PO (09:39)
[2019-11-04] MEDS: Allopurinol 300 MG Tablet PO (09:39)
[2019-11-04] MEDS: Ipratropium/Albuterol Sulfate 3 ML AMPUL.NEB INHALATION ×3 (10:34→19:15)
--- NOTE | 2019-11-04 10:41 | PN_ITS ---
Reason for Visit: Follow-up for COPD exacerbation and hypotension. Objective: Patient blood pressure has recovered 112/57. Patient further stated his body weight at home was 199 pounds but here it is 204 pounds since admission. Lasix resumed. No fever or chills. Patient still has cough. Complain of severe back pain. On physical exam General: Alert, Oriented x3, Cooperative HEENT: Atraumatic, PERRLA, EOMI, Normocephalic Oral: No Gingival or Mucosal Lesions/ Ulcerations, Dry Mucosa Neck: Supple, No JVD, Negative Carotid Bruits Lungs: Air entry diminished diffusely in all lung bui predominantly in left lung base, Rhonchi, no shortness of breath. Cardiovascular: Regular rate, Regular Rhythm, Normal S1, Normal S2, No murmurs, Left subclavicular pacemaker Abdomen: Bowel Sounds Present, Soft, Non Tender Extremities: No edema - Patient edema much controlled., Capillary Refill Less than 3 Seconds Skin: No rashes, No breakdown Musculoskeletal: Arthritic Changes, Tenderness - Tenderness in lumbar spine and cervical spine. Surgical scar present right lumbar spine. Neurological: Cranial nerves II-XII grossly intact, Deep Tendon Reflexes 2+/4 and Symmetrical, Neuro grossly intact Psych/Mental Status: Normal Affect, Appropriate Vitals/I&O's: Vital Signs Temp Pulse Resp BP Pulse Ox 97.5 F L 86 18 112/57 L 95 11/04/19 09:22 11/04/19 10:35 11/04/19 10:35 11/04/19 09:22 11/04/19 09:22 Oxygen Flow Rate (L/min) 2 Oxygen Delivery Method Nasal Cannula Weight: 204 lb 5.896 oz Body Mass Index (BMI) 31.0 Finger Stick Blood Glucose 111 Intake and Output for Last 24 Hours 11/02/19 11/03/19 11/04/19 23:59 23:59 23:59 Intake Total 2955 / 2955 100 / 100 Output Total 500 / 500 600 / 600 Balance 2455 / 2455 -500 / -500 Microbiology Past 72 Hours 11/03/19 08:15 Mucosa - Nose Respiratory Panel (PCR) - Final Laboratory Results 11/03/19 13:01: POC Glucose 85 11/03/19 16:36: POC Glucose 130 H 11/03/19 21:54: POC Glucose 244 H 11/04/19 06:35: POC Glucose 167 H 11/04/19 07:08: Sodium 136, Potassium 4.7, Chloride 104, Carbon Dioxide 27.0, Anion Gap 5, BUN 35 H, Creatinine 1.54 H, Estim Creat Clear Calc 44.42, Est GFR (MDRD) Af Amer 58 L, Est GFR (MDRD) Non-Af 48 L, BUN/Creatinine Ratio 22.7 H, Glucose 166 H, Calcium 8.7 Current Medications Acetaminophen (Tylenol) 650 mg PO Q6H PRN PRN PRN Reason: Pain Score 1-10/Temp > 100.7 F Last Admin: 11/04/19 03:52 Dose: 650 mg Documented by: Albuterol Sulfate (Ventolin Aerosols) 2.5 mg INHALATION Q2H PRN PRN PRN Reason: SOB/Wheezing Albuterol/Ipratropium (Duoneb) 3 ml INHALATION Q4H.RT [facility] Last Admin: 11/04/19 10:34 Dose: 3 ml Documented by: Allopurinol (Zyloprim) 300 mg PO DAILY [facility] Last Admin: 11/04/19 09:39 Dose: 300 mg Documented by: [facility]) [facility] Last Admin: 11/04/19 09:37 Dose: 325 mg Documented by: Bisacodyl (Dulcolax) 10 mg RECTAL DAILY PRN PRN PRN Reason: Constipation Carvedilol (Coreg) 6.25 mg PO BID [facility] Last Admin: 11/04/19 09:37 Dose: 6.25 mg Documented by: Clopidogrel Bisulfate (Plavix) 75 mg PO DAILY [facility] Last Admin: 11/04/19 09:38 Dose: 75 mg Documented by: Dextrose (D50w Syringe) 0 gm IV X1 PRN; Protocol PRN Reason: Hypoglycemia Enoxaparin Sodium (Lovenox) 40 mg SC DAILY [facility] Last Admin: 11/04/19 09:38 Dose: 40 mg Documented by: Furosemide (Lasix) 40 mg PO DAILY [facility] Glimepiride (Amaryl) [facility] Last Admin: 11/04/19 09:37 Dose: 1 mg Documented by: Glucagon () 1 mg IM .X1 PRN PRN Reason: Hypoglycemia Guaifenesin (Mucinex) 1,200 mg PO BID [facility] Last Admin: 11/03/19 21:57 Dose: 1,200 mg Documented by: Insulin Human Lispro (Humalog Kwikpen (Bkc)) 0 unit SC [facility]; Protocol Last Admin: 11/04/19 06:39 Dose: 1 u Documented by: Isosorbide Mononitrate (Imdur) 30 mg PO DAILY [facility] Last Admin: 11/04/19 09:37 Dose: 30 mg Documented by: Levothyroxine Sodium (Synthroid) 25 mcg PO DAILY@0600 [facility] Last Admin: 11/04/19 06:39 Dose: 25 mcg Documented by: Melatonin (Melatonin) 3 mg PO QHS PRN PRN PRN Reason: INSOMNIA Last Admin: 11/03/19 21:56 Dose: 3 mg Documented by: Methylprednisolone (Solu-Medrol) 40 mg IV Q8 [facility] Last Admin: 11/04/19 06:38 Dose: 40 mg Documented by: Metoclopramide HCl (Reglan) 5 mg IV Q6 [facility] Last Admin: 11/04/19 06:38 Dose: 5 mg Documented by: Morphine Sulfate () 2 mg IV Q3H PRN PRN PRN Reason: Pain Score 6-10/10 Last Admin: 11/04/19 09:39 Dose: 2 mg Documented by: Nicotine (Nicoderm Cq (Pbkc)) 21 mg TRANSDERM. DAILY [facility] Last Admin: 11/04/19 09:38 Dose: 21 mg Documented by: Nitroglycerin (Nitrostat) 0.4 mg SUBLINGUAL Q5M PRN PRN Reason: CHEST PAIN Oxycodone HCl (Oxyir) 5 mg PO Q4H PRN PRN PRN Reason: Pain Score 4-5/10 Last Admin: 11/04/19 03:52 Dose: 5 mg Documented by: Pantoprazole Sodium (Protonix) 40 mg PO DAILY [facility] Last Admin: 11/04/19 09:38 Dose: 40 mg Documented by: Polyethylene Glycol (Miralax) 17 gm PO DAILY [facility] Last Admin: 11/04/19 09:38 Dose: Not Given Documented by: Prochlorperazine Edisylate (Compazine Iv) 10 mg IV Q6H PRN PRN PRN Reason: nausea/vomitng Last Admin: 11/03/19 15:29 Dose: 10 mg Documented by: Rosuvastatin Calcium (Crestor) 40 mg PO QHS [facility] Last Admin: 11/03/19 21:57 Dose: 40 mg Documented by: Senna/Docusate Sodium (Senokot-S, Salima-Colace) 2 tablet PO BID [facility] Last Admin: 11/04/19 09:38 Dose: 2 tablet Documented by: Sertraline HCl (Zoloft) 50 mg PO DAILY [facility] Last Admin: 11/04/19 09:39 Dose: 50 mg Documented by: Sodium Chloride () 10 - 40 ml IV UD PRN PRN Reason: SALINE FLUSH Last Admin: 11/04/19 09:39 Dose: 10 ml Documented by: Spironolactone (Aldactone) 25 mg PO DAILY [facility] Last Admin: 11/04/19 09:37 Dose: 25 mg Documented by: STROKE Vital Signs/Narrative: Vital Signs Temp Pulse Resp BP Pulse Ox 11/04/19 10:35 86 18 11/04/19 09:22 97.5 F L 95 20 H 112/57 L 95 11/04/19 07:25 92 11/04/19 07:01 81 18 97 Medical Necessity - Tobacco Use Smoking Status: Current every day smoker Assessment/Plan All Active Problems (Last Reviewed 10/07/19 @ 07:06 by NEFTALI Evangelista) Acute respiratory failure (Acute) COPD exacerbation (Acute) COPD exacerbation (Resolved) Cardiac enzymes elevated (Resolved) The patient is a 69 year old M with multiple comorbidities including COPD and CHF came to ER with progressive worsening of shortness of breath for few days along with dry cough. Patient was found hypotensive 81/52 in ER. Chest x-ray independently reviewed and to me it seems similar to the previous chest x-ray of 10/20/2019 although officially reported as increased markings on the left side as compared to right side. EKG shows normal sinus rhythm with nonspecific ST-T wave abnormality. QTC 481 ms. 1. COPD exacerbation with acute hypoxic respiratory insufficiency: Patient is being admitted in PCU. Respiratory panel is negative. Recently patient respiratory panel and COVID 19 was negative during previous admission 10/18 to 10/20. On scheduled DuoNeb, PRN albuterol, IV Solu-Medrol, incentive spirometry, chest physiotherapy and Mucinex. Sputum culture ordered. Patient does not have fever. Had 1 dose of IV ceftriaxone and Zithromax in ER today. On 11/03: Sputum culture collected. Blood cultures x2 are pending. I think there is no indication for antibiotic at this time. 2. Hypotension with dehydration in ED: Patient had 1.5 L normal saline bolus in ER. Does not need further IV fluid. Blood pressure is stable. 11/03: Blood pressure recovered. Resumed home dose of Lasix 40 mg twice daily. 3. Acute kidney injury on CKD stage III: BUN/creatinine 27/1.82, increased from baseline 38/1.38. Monitor intake and output, electrolytes and kidney function. Monitor daily weight. 11/03: BUN/creatinine improved 35/1.54 but worse mainly due to fluid shift. 4.. Coronary artery disease WITH Ischemic cardiomyopathy with EF 15% status post AICD: Patient had recent recent PCI SVG to OM1. This time, stable no chest pain. Continue patient cardiac medication. EKG shows QTC 481 ms. On sertraline 50 mg daily. 5. Chronic systolic congestive heart failure: Stable. Hold diuretics today as he is hypotensive. 6. Diabetes mellitus type II; Accu-Cheks before meals and at bedtime with sliding scale coverage ordered. 7. Dyslipidemia: On home dose of statin 8. GERD patient is on PPI 9 chronic back pain with sciatica with history of pain seeking behavior 10. Gout -On allopurinol 11. DVT prophylaxis ~ on enoxaparin Advanced lab directive/living will: Full code. Clinical Impression(s) from Imaging Studies Chest X-Ray 11/03/19 08:04 IMPRESSION: Increased markings at the lung bases worse on the left side. This has progressed as compared to prior study. Inpatient E&M: 02191 Subs Hosp L2
[2019-11-04 11:55] LABS: Bedside Glucose 172 mg/dL (70-110)
[2019-11-04] MEDS: HYDROmorphone 1 MG/ML Syringe IV ×2 (13:16→21:33)
--- NOTE | 2019-11-04 13:18 | CASEMGMT ---
RN CM Readmission Note Previous Admission: 10.18-10.21.2019 Diagnosis: Acute Respiratory Failure, COPD exacerbation, suspected COVID-19 (negative testing). DC Disposition: Home with services from [facility] Current Admission Presentation: Intro role of CM and purpose of RN CM assessment. Demographics, PCP and Pharmacy verified. PCP: Dr. Juan De La Vega III Specialists: Dr. Inman, cardiology; Dr. Pop, Pulmonology. Pt has not seen recently. Encouraged pt to schedule visit with pulmonology and if symptoms return at home, to contact office earlier to have physician recommendation for treatment. Preferred Pharmacy: [facility] Insurance: [facility] Dual COMP HMO Prescription Benefit: yes LNOK: , Alma Rosa Acuna- pt states he assists his @ home. She has HHC and grandson (33yrs old) is staying with his while pt is in hospital. Living Arrangements: Lives in two story home with . Bedroom/bath on second floor. Pt states no difficulty doing stairs.Independent in ADL, IADL. Receives delivered meals- states he does not remember name of company, but will resume on dc. Transportation: drives DME: rollator, nebulizer, shower chair, grab bars. (denies oxygen, cpap) HHC/SNF: denies Patient DC goals: Home on dc DC PLAN: Anticipate home on dc. Per PT/OT, pt is at baseline and therapies not recommended. Pt is on 2L NC presently, but hopes to return home without needing oxygen. If unable to wean oxygen, will need Home oxygen testing. Per [facility] website-[facility] is only local provider. Frankie SAUCEDO RN ACM
--- NOTE | 2019-11-04 16:11 | CASEMGMT ---
Social Work Pt is current with [facility]. VM left with [facility] Elam CM that pt has been admitted. JOANNE Zazueta
[2019-11-04] MEDS: oxyCODONE 5 MG Tablet 10 MG PO (17:18)
[2019-11-04 17:55] LABS: Bedside Glucose 180 mg/dL (70-110)
[2019-11-04] MEDS: Rosuvastatin 20 MG Tablet 40 MG PO (21:31)
[2019-11-04] MEDS: guaiFENesin 1,200 MG Tablet 1200 MG PO (21:32)
[2019-11-04 23:36] LABS: Bedside Glucose 199 mg/dL (70-110)
[2019-11-05] VITALS (14 sets, daily range): BP systolic 109–135; BP diastolic 55–75; PULSE 72–120; RESP 11–19; TEMP 36.4–36.8; O2SAT 93–98
[2019-11-05] MEDS: Ipratropium/Albuterol Sulfate 3 ML AMPUL.NEB INHALATION ×5 (00:53→19:25)
[2019-11-05] MEDS: oxyCODONE 5 MG Tablet 10 MG PO ×4 (01:37→20:00)
[2019-11-05] MEDS: HYDROmorphone 1 MG/ML Syringe IV ×4 (04:11→22:01)
[2019-11-05] MEDS: Levothyroxine 25 MCG TABLET PO (05:52)
[2019-11-05] MEDS: Metoclopramide 10 MG/2 ML Vial 5 MG IV ×3 (05:52→17:32)
[2019-11-05] MEDS: 0.9% Saline Lock 10 ML Syringe IV ×6 (06:05→22:02)
[2019-11-05 06:37] LABS: Anion Gap 6 (5-15); BUN 37 mg/dL (7-18); BUN/Creat Ratio 29.8 RATIO (10-20); Calcium,Total 8.8 mg/dL (8.5-10.1); Chloride 106 mmol/L (98-107); Creatinine, Serum 1.24 mg/dL (0.70-1.30); EST Glomerular Filtration Rate 62 mL/min (>60); Est Glom Filt Rate - Afr Amer 74 mL/min (>60); Estimated Creatinine Clearance 55.16 ml/min; Glucose 159 mg/dL (74-106); Sodium Level 137 mmol/L (136-145)
[2019-11-05] MEDS: Insulin Lispro 100 UNIT/ML INSULN.PEN SC ×2 (06:49→11:16)
[2019-11-05 07:46] LABS: Bedside Glucose 157 mg/dL (70-110)
[2019-11-05] MEDS: Pantoprazole Sodium 40 MG Tablet PO (09:16)
[2019-11-05] MEDS: Allopurinol 300 MG Tablet PO (09:16)
[2019-11-05] MEDS: Enoxaparin 40 MG/0.4 ML Syringe SC (09:16)
[2019-11-05] MEDS: Senna/Docusate Sodium 1 Tablet 2 TABLET PO ×2 (09:16→22:06)
[2019-11-05] MEDS: guaiFENesin 1,200 MG Tablet 1200 MG PO ×2 (09:16→22:05)
[2019-11-05] MEDS: Clopidogrel Bisulfate 75 MG Tablet PO (09:16)
[2019-11-05] MEDS: Sertraline 50 MG Tablet PO (09:16)
[2019-11-05] MEDS: Glimepiride 1 MG Tablet PO (09:16)
[2019-11-05] MEDS: Carvedilol 6.25 MG Tablet PO ×2 (09:17→22:06)
[2019-11-05] MEDS: Aspirin E.C. 325 MG Tablet PO (09:17)
[2019-11-05] MEDS: Spironolactone 25 MG Tablet PO (09:17)
[2019-11-05] MEDS: Furosemide 40 MG Tablet PO ×2 (09:17→17:32)
[2019-11-05] MEDS: Isosorbide Mononitrate 30 MG Tablet PO (09:17)
--- NOTE | 2019-11-05 10:49 | PCM.PN.HOSP ---
Reason for Visit: COPD exacerbation. Acute respiratory insufficiency Objective: Patient is still gets short of breath and has expiratory wheezing. Feels chest congestion. On echo exam General: Alert, Oriented x3, Cooperative HEENT: Atraumatic, PERRLA, EOMI, Normocephalic Oral: No Gingival or Mucosal Lesions/ Ulcerations, Dry Mucosa Neck: Supple, No JVD, Negative Carotid Bruits Lungs: Air entry diminished diffusely in all lung bui predominantly in left lung base, expiratory wheezing and rhonchi, mild shortness of breath on exertion Cardiovascular: Regular rate, Regular Rhythm, Normal S1, Normal S2, No murmurs, Left subclavicular pacemaker Abdomen: Bowel Sounds Present, Soft, Non Tender Extremities: Patient edema much controlled., Capillary Refill Less than 3 Seconds Skin: No rashes, No breakdown Musculoskeletal: Arthritic Changes, Tenderness - Tenderness in lumbar spine and cervical spine. Surgical scar present right lumbar spine. Neurological: Cranial nerves II-XII grossly intact, Deep Tendon Reflexes 2+/4 and Symmetrical, Neuro grossly intact Psych/Mental Status: Normal Affect, Appropriate Vitals/I&O's: Vital Signs Temp Pulse Resp BP Pulse Ox 97.6 F L 74 18 131/67 H 93 11/05/19 09:08 11/05/19 10:00 11/05/19 10:00 11/05/19 09:08 11/05/19 09:08 Oxygen Flow Rate (L/min) 1.5 Oxygen Delivery Method Room Air Weight: 200 lb 13.458 oz Body Mass Index (BMI) 31.0 Finger Stick Blood Glucose 111 Intake and Output for Last 24 Hours 11/03/19 11/04/19 11/05/19 23:59 23:59 23:59 Intake Total 2955 / 2955 1520 / 1520 60 / 60 Output Total 500 / 500 5530 / 5530 0 / 0 Balance 2455 / 2455 -4010 / -4010 60 / 60 Microbiology Past 72 Hours 11/03/19 09:50 Sputum, Expectorated/Coughed Gram Stain - Final 11/03/19 08:15 Mucosa - Nose Respiratory Panel (PCR) - Final Laboratory Results 11/04/19 11:27: POC Glucose 172 H 11/04/19 17:10: POC Glucose 180 H 11/04/19 21:29: POC Glucose 199 H 11/05/19 05:42: Sodium 137, Potassium 4.0, Chloride 106, Carbon Dioxide 25.0, Anion Gap 6, BUN 37 H, Creatinine 1.24, Estim Creat Clear Calc 55.16, Est GFR (MDRD) Af Amer 74, Est GFR (MDRD) Non-Af 62, BUN/Creatinine Ratio 29.8 H, Glucose 159 H, Calcium 8.8 11/05/19 06:47: POC Glucose 157 H Current Medications Acetaminophen (Tylenol) 650 mg PO Q6H PRN PRN PRN Reason: Pain Score 1-10/Temp > 100.7 F Last Admin: 11/04/19 03:52 Dose: 650 mg Documented by: Albuterol Sulfate (Ventolin Aerosols) 2.5 mg INHALATION Q2H PRN PRN PRN Reason: SOB/Wheezing Albuterol/Ipratropium (Duoneb) 3 ml INHALATION Q4H.RT [facility] Last Admin: 11/05/19 10:00 Dose: 3 ml Documented by: Allopurinol (Zyloprim) 300 mg PO DAILY [facility] Last Admin: 11/05/19 09:16 Dose: 300 mg Documented by: Aspirin (Ecotrin) 325 mg PO DAILYCM [facility] Last Admin: 11/05/19 09:17 Dose: 325 mg Documented by: Bisacodyl (Dulcolax) 10 mg RECTAL DAILY PRN PRN PRN Reason: Constipation Carvedilol (Coreg) 6.25 mg PO BID [facility] Last Admin: 11/05/19 09:17 Dose: 6.25 mg Documented by: Clopidogrel Bisulfate (Plavix) 75 mg PO DAILY [facility] Last Admin: 11/05/19 09:16 Dose: 75 mg Documented by: Dextrose (D50w Syringe) 0 gm IV X1 PRN; Protocol PRN Reason: Hypoglycemia Enoxaparin Sodium (Lovenox) 40 mg SC DAILY [facility] Last Admin: 11/05/19 09:16 Dose: 40 mg Documented by: Furosemide (Lasix) 40 mg PO BIDLX [facility] Last Admin: 11/05/19 09:17 Dose: 40 mg Documented by: Glimepiride (Amaryl) 1 mg PO DAILYCM [facility] Last Admin: 11/05/19 09:16 Dose: 1 mg Documented by: Glucagon () 1 mg IM .X1 PRN PRN Reason: Hypoglycemia Guaifenesin (Mucinex) 1,200 mg PO BID [facility] Last Admin: 11/05/19 09:16 Dose: 1,200 mg Documented by: Hydromorphone HCl (Dilaudid Inj) 1 mg IV Q3H PRN PRN PRN Reason: Pain Score 6-10/10 Last Admin: 11/05/19 04:11 Dose: 1 mg Documented by: Insulin Human Lispro (Humalog Kwikpen (Bkc)) 0 unit SC [facility]; Protocol Last Admin: 11/05/19 06:49 Dose: 1 u Documented by: Isosorbide Mononitrate (Imdur) 30 mg PO DAILY [facility] Last Admin: 11/05/19 09:17 Dose: 30 mg Documented by: Levothyroxine Sodium (Synthroid) 25 mcg PO DAILY@0600 [facility] Last Admin: 11/05/19 05:52 Dose: 25 mcg Documented by: Melatonin (Melatonin) 3 mg PO QHS PRN PRN PRN Reason: INSOMNIA Last Admin: 11/03/19 21:56 Dose: 3 mg Documented by: Methylprednisolone (Solu-Medrol) 40 mg IV Q8 [facility] Last Admin: 11/05/19 05:52 Dose: 40 mg Documented by: Metoclopramide HCl (Reglan) 5 mg IV Q6 [facility] Last Admin: 11/05/19 05:52 Dose: 5 mg Documented by: Nicotine (Nicoderm Cq (Pbkc)) 21 mg TRANSDERM. DAILY [facility] Last Admin: 11/05/19 09:17 Dose: 21 mg Documented by: Nitroglycerin (Nitrostat) 0.4 mg SUBLINGUAL Q5M PRN PRN Reason: CHEST PAIN Oxycodone HCl (Oxyir) 10 mg PO Q4H PRN PRN PRN Reason: Pain Score 4-5/10 Last Admin: 11/05/19 09:16 Dose: 10 mg Documented by: Pantoprazole Sodium (Protonix) 40 mg PO DAILY [facility] Last Admin: 11/05/19 09:16 Dose: 40 mg Documented by: Polyethylene Glycol (Miralax) 17 gm PO DAILY [facility] Last Admin: 11/05/19 09:17 Dose: Not Given Documented by: Prochlorperazine Edisylate (Compazine Iv) 10 mg IV Q6H PRN PRN PRN Reason: nausea/vomitng Last Admin: 11/03/19 15:29 Dose: 10 mg Documented by: Rosuvastatin Calcium (Crestor) 40 mg PO QHS [facility] Last Admin: 11/04/19 21:31 Dose: 40 mg Documented by: Senna/Docusate Sodium (Senokot-S, Salima-Colace) 2 tablet PO BID [facility] Last Admin: 11/05/19 09:16 Dose: 2 tablet Documented by: Sertraline HCl (Zoloft) 50 mg PO DAILY [facility] Last Admin: 11/05/19 09:16 Dose: 50 mg Documented by: Sodium Chloride () 10 - 40 ml IV UD PRN PRN Reason: SALINE FLUSH Last Admin: 11/05/19 06:05 Dose: 30 ml Documented by: Spironolactone (Aldactone) 25 mg PO DAILY [facility] Last Admin: 11/05/19 09:17 Dose: 25 mg Documented by: STROKE Vital Signs/Narrative: Vital Signs Temp Pulse Resp BP Pulse Ox 11/05/19 10:00 74 18 11/05/19 09:08 97.6 F L 93 18 131/67 H 93 11/05/19 07:23 88 Medical Necessity - Tobacco Use Smoking Status: Current every day smoker Assessment/Plan All Active Problems (Last Reviewed 10/07/19 @ 07:06 by NEFTALI Evangelista) Acute respiratory failure (Acute) COPD exacerbation (Acute) COPD exacerbation (Resolved) Cardiac enzymes elevated (Resolved) The patient is a 69 year old M with multiple comorbidities including COPD and CHF came to ER with progressive worsening of shortness of breath for few days along with dry cough. Patient was found hypotensive 81/52 in ER. Chest x-ray independently reviewed and to me it seems similar to the previous chest x-ray of 10/20/2019 although officially reported as increased markings on the left side as compared to right side. EKG shows normal sinus rhythm with nonspecific ST-T wave abnormality. QTC 481 ms. 1. COPD exacerbation with acute hypoxic respiratory insufficiency: Patient is being admitted in PCU. Respiratory panel is negative. Recently patient respiratory panel and COVID 19 was negative during previous admission 10/18 to 10/20. On scheduled DuoNeb, PRN albuterol, IV Solu-Medrol, incentive spirometry, chest physiotherapy and Mucinex. Sputum culture ordered. Patient does not have fever. Had 1 dose of IV ceftriaxone and Zithromax in ER today. On 11/03: Sputum culture collected. Blood cultures x2 are pending. 11/04: No fever or chills. Pulse ox 93% on room air. I think there is no indication for antibiotic at this time. Continue bronchodilator steroid. 2. Hypotension with dehydration in ED: Patient had 1.5 L normal saline bolus in ER. Does not need further IV fluid. Blood pressure is stable. 11/03: Blood pressure recovered. Resumed home dose of Lasix 40 mg twice daily. 11/04: Patient weight is back on baseline, 200 pounds. Continue diuresis and follow electrolytes 3. Acute kidney injury on CKD stage III: BUN/creatinine 27/1.82, increased from baseline 38/1.38. Monitor intake and output, electrolytes and kidney function. Monitor daily weight. 11/03: BUN/creatinine improved 35/1.54 but worse mainly due to fluid shift. 11/04: BUN/creatinine improved, 37/1.2 from baseline. 4. Coronary artery disease WITH Ischemic cardiomyopathy with EF 15% status post AICD: Patient had recent recent PCI SVG to OM1. This time, stable no chest pain. Continue patient cardiac medication. EKG shows QTC 481 ms. On sertraline 50 mg daily. 5. Chronic systolic congestive heart failure: Stable. Hold diuretics today as he is hypotensive. 6. Diabetes mellitus type II; Accu-Cheks before meals and at bedtime with sliding scale coverage ordered. 7. Dyslipidemia: On home dose of statin 8. GERD patient is on PPI 9 chronic back pain with sciatica with history of pain seeking behavior 10. Gout -On allopurinol 11. DVT prophylaxis ~ on enoxaparin Advanced lab directive/living will: Full code. Clinical Impression(s) from Imaging Studies Chest X-Ray 11/03/19 08:04 IMPRESSION: Increased markings at the lung bases worse on the left side. This has progressed as compared to prior study. Inpatient E&M: 87700 Subs Hosp L2
[2019-11-05 12:01] LABS: Bedside Glucose 178 mg/dL (70-110)
[2019-11-05 16:46] LABS: Bedside Glucose 148 mg/dL (70-110)
[2019-11-05] MEDS: Rosuvastatin 20 MG Tablet 40 MG PO (22:05)
[2019-11-05 22:16] LABS: Bedside Glucose 143 mg/dL (70-110)
[2019-11-06] VITALS (7 sets, daily range): BP systolic 125–133; BP diastolic 64–73; PULSE 60–102; RESP 18; TEMP 36.4; O2SAT 91–97
[2019-11-06] MEDS: HYDROmorphone 1 MG/ML Syringe IV ×3 (02:57→10:05)
[2019-11-06] MEDS: 0.9% Saline Lock 10 ML Syringe IV ×3 (02:57→10:05)
[2019-11-06] MEDS: Ipratropium/Albuterol Sulfate 3 ML AMPUL.NEB INHALATION ×2 (03:22→07:02)
[2019-11-06] MEDS: Levothyroxine 25 MCG TABLET PO (06:00)
[2019-11-06] MEDS: Metoclopramide 10 MG/2 ML Vial 5 MG IV (06:00)
[2019-11-06 06:16] LABS: Bedside Glucose 148 mg/dL (70-110)
[2019-11-06 07:31] LABS: Anion Gap 9 (5-15); BUN 39 mg/dL (7-18); Calcium,Total 8.9 mg/dL (8.5-10.1); Chloride 107 mmol/L (98-107); EST Glomerular Filtration Rate 58 mL/min (>60); Est Glom Filt Rate - Afr Amer 71 mL/min (>60); Estimated Creatinine Clearance 52.62 ml/min; Glucose 149 mg/dL (74-106); Magnesium 2.1 mg/dL (1.6-2.6); Potassium 4.3 mmol/L (3.5-5.1); Sodium Level 136 mmol/L (136-145)
[2019-11-06] MEDS: Sertraline 50 MG Tablet PO (08:56)
[2019-11-06] MEDS: Senna/Docusate Sodium 1 Tablet 2 TABLET PO (08:56)
[2019-11-06] MEDS: guaiFENesin 1,200 MG Tablet 1200 MG PO (08:56)
[2019-11-06] MEDS: Allopurinol 300 MG Tablet PO (08:56)
[2019-11-06] MEDS: Pantoprazole Sodium 40 MG Tablet PO (08:56)
[2019-11-06] MEDS: Enoxaparin 40 MG/0.4 ML Syringe SC (08:57)
[2019-11-06] MEDS: Glimepiride 1 MG Tablet PO (08:57)
[2019-11-06] MEDS: Isosorbide Mononitrate 30 MG Tablet PO (08:57)
[2019-11-06] MEDS: Spironolactone 25 MG Tablet PO (08:57)
[2019-11-06] MEDS: Aspirin E.C. 325 MG Tablet PO (08:57)
[2019-11-06] MEDS: Clopidogrel Bisulfate 75 MG Tablet PO (08:57)
[2019-11-06] MEDS: Furosemide 40 MG Tablet PO (08:57)
[2019-11-06] MEDS: Carvedilol 6.25 MG Tablet PO (08:57)
[2019-11-06] MEDS: oxyCODONE 5 MG Tablet 10 MG PO (09:04)
--- NOTE | 2019-11-06 09:57 | PCM.DC ---
- Discharge Diagnoses Current Active Problems: Current Active and Chronic Problems (Last Reviewed 10/07/19 @ 07:06 by NEFTALI Evangelista) COPD (chronic obstructive pulmonary disease) (Chronic) You will use the following diet at home:: Calorie/Carbohydrate Controlled (specify 1200, 1400, etc), Cardiac Discharge Activity: May Not Drive Call your doctor if you observe: Fever of 101 or Higher, Numbness or Tingling, Change in Color, Inability to have a bowel movement, Shortness of breath, Dizziness, Fainting spells, Swelling in the ankles, Chest pain, Prolonged hiccoughing, Increased palpitations (irregular heartbeat), Calf discomfort, Uncontrolled pain Allergies/Adverse Reactions: Allergies chlorpromazine HCl [From Thorazine] Allergy (Severe, Verified 11/03/19 07:50) Hives PER PATIENT tramadol HCl [From Ultram] Allergy (Severe, Verified 11/03/19 07:50) Hives PER PATIENT codeine Allergy (Intermediate, Verified 11/03/19 07:50) Hives atorvastatin Adverse Reaction (Intermediate, Verified 11/03/19 07:50) Other LEG PAIN/CRAMPS cyclobenzaprine [From Flexeril] Adverse Reaction (Verified 11/03/19 07:50) Upset Stomach metformin Adverse Reaction (Verified 11/03/19 07:50) Upset Stomach naproxen Adverse Reaction (Verified 11/03/19 07:50) Upset Stomach promethazine [From Phenergan] Adverse Reaction (Verified 11/03/19 07:50) Other CONFUSION Medications to take at Discharge Isosorbide Mononitrate [Imdur] 30 mg PO DAILY 02/18/17 Albuterol Aerosols [Ventolin Aerosols] 2.5 mg INHALATION Q4H PRN PRN 02/23/17 Pantoprazole Sodium [Protonix] 40 mg PO DAILY 11/15/17 Lisinopril [Zestril] 2.5 mg PO DAILY 05/21/18 Rosuvastatin Calcium [Crestor] 40 mg PO DAILY 06/16/18 Clopidogrel Bisulfate [Plavix] 75 mg PO DAILY 09/01/18 Allopurinol 300 mg PO DAILY 09/20/18 Nitroglycerin 0.4 mg SL PRN PRN 12/01/18 Albuterol Inhaler [Ventolin Hfa] 2 puff INHALATION Q4H PRN PRN 02/24/19 Oxycodone HCl/Acetaminophen [Oxycodon-Acetaminophen 7.5-325] 1 tab PO Q6H PRN 05/02/19 aspirin 325 mg tablet,delayed release 325 mg PO DAILY 10/05/19 spironolactone 25 mg tablet 25 mg PO DAILY 10/05/19 Carvedilol [Coreg (Beta Sina)] 6.25 mg PO BID 10/19/19 Furosemide [Lasix] 40 mg PO BID@1000,1800 10/19/19 Glimepiride [Amaryl] 1 mg PO DAILY 10/19/19 Levothyroxine [Synthroid] 25 mcg PO DAILY@0600 10/19/19 Sertraline HCl [Zoloft] 50 mg PO DAILY 10/19/19 Guaifenesin [Mucinex] 1,200 mg PO BID #14 tab 11/06/19 Nicotine [Nicoderm Cq] 21 mg TRANSDERM. DAILY #30 patch 11/06/19 Prednisone 10 mg PO DAILY #30 tab 11/06/19 The following prescriptions were given: Guaifenesin [Mucinex] 1,200 mg PO BID #14 tab Transmission Status: Pending to [facility] Nicotine [Nicoderm Cq] 21 mg TRANSDERM. DAILY #30 patch Transmission Status: Pending to [facility] Prednisone 10 mg PO DAILY #30 tab Transmission Status: Pending to [facility] Primary Care Physician: Juan De La Vega III, MD [Primary Care Provider] - Test Results: Test results from this visit will be discussed in further detail at your follow-up appointment, if applicable. Please Follow Up With: Juan De La Vega III, MD When: in 1-2 week Please Follow Up With: Carlos Pop DO When: in 2-3 week Please Follow Up With: Gordy Inman MD When: in 2-3 weeks
--- NOTE | 2019-11-06 10:09 | PCM.DC.SUM ---
Discharge Date and Diagnosis Date of Admission: 11/03/19 Date of Discharge: 11/06/19 - Secondary Discharge Diagnosis Chronic Problems (Last Reviewed 10/07/19 @ 07:06 by NEFTALI Evangelista) History of left heart catheterization (Chronic 06/29/19) LVEF: by LV gram 15-20 %; [place] Multivessel CAD; Occluded [place] mid LAD. Occluded [place] proximal RCA. Occluded SVG to DIAG. Occluded SVG to RCA. Occluded HU[place] to LAD. Severe 85% stenosis in last remaining vessel of SVG to LCX with widely patent SVG stents. Severe LV dysfunction. Referred for immediate PCI: Will tx to [facility] for high risk PCI to last remaining vessel of SVG to OM. 06/29/19 per DANA @ [facility] Hypoxia, sleep related (Chronic) Coarse tremors (Chronic) Headache (Chronic) COPD (chronic obstructive pulmonary disease) (Chronic) Obesity (BMI 30.0-34.9) (Chronic) Nicotine dependence (Chronic) Gout (Chronic) Degenerative cervical disc (Chronic) Chronic back pain (Chronic) Presence of automatic implantable cardioverter-defibrillator (Chronic) H/O coronary artery bypass surgery (Chronic ~2008) [place]-LAD, SVG-D1, SVG-OM Chronic renal failure, stage 3 (moderate) (Chronic) Chronic systolic (congestive) heart failure (Chronic) Stented coronary artery (Chronic ~12/2016) has had 7 stents as of 06/15/17 Ischemic cardiomyopathy (Chronic) 25% ejection fraction in November 2016 V-tach (Chronic) has an AICD Benign essential hypertension (Chronic) Gastroesophageal reflux disease (Chronic) Hyperlipidemia (Chronic) Type 2 diabetes mellitus (Chronic) Morbid obesity (Chronic) CAD (coronary artery disease) (Chronic) Hospital Course and Treatment Operations: None Summary of Care Provided: The patient is a 69 year old M with multiple comorbidities including COPD and CHF came to ER with progressive worsening of shortness of breath for few days along with dry cough. Patient was found hypotensive 81/52 in ER. Chest x-ray independently reviewed and to me it seems similar to the previous chest x-ray of 10/20/2019 although officially reported as increased markings on the left side as compared to right side. EKG shows normal sinus rhythm with nonspecific ST-T wave abnormality. QTC 481 ms. 1. COPD exacerbation with acute hypoxic respiratory insufficiency: Patient is being admitted in PCU. Respiratory panel is negative. Recently patient respiratory panel and COVID 19 was negative during previous admission 10/18 to 10/20. On scheduled DuoNeb, PRN albuterol, IV Solu-Medrol, incentive spirometry, chest physiotherapy and Mucinex. Sputum culture ordered. Patient does not have fever. Had 1 dose of IV ceftriaxone and Zithromax in ER today. On 11/03: Sputum culture collected. Blood cultures x2 are pending. 11/04: No fever or chills. Pulse ox 93% on room air. I think there is no indication for antibiotic at this time. Continue bronchodilator steroid. 11/05: Walking pulse oximetry done. 95% at rest on room air. 91% on room air on ambulation. Patient shortness of breath has resolved. Patient has albuterol and DuoNeb nebulization. Prescription given for Mucinex prednisone and nicotine patch. Advised to follow-up in pulmonary clinic 2. Hypotension with dehydration in ED: Patient had 1.5 L normal saline bolus in ER. Does not need further IV fluid. Blood pressure is stable. 11/03: Blood pressure recovered. Resumed home dose of Lasix 40 mg twice daily. 11/04: Patient weight is back on baseline, 200 pounds. Continue diuresis and follow electrolytes 11/05: Patient is diuresed well. Weight is 197 pounds. Last total of 7 pounds since admission. 3. Acute kidney injury on CKD stage III: BUN/creatinine 27/1.82, increased from baseline 38/1.38. Monitor intake and output, electrolytes and kidney function. Monitor daily weight. 11/03: BUN/creatinine improved 35/1.54 but worse mainly due to fluid shift. 11/04: BUN/creatinine improved, 37/1.2 from baseline. 11/05: BUN/creatinine on baseline 39/1.30. Bicarb 20. 4. Coronary artery disease WITH Ischemic cardiomyopathy with EF 15% status post AICD: Patient had recent recent PCI SVG to OM1. This time, stable no chest pain. Continue patient cardiac medication. EKG shows QTC 481 ms. On sertraline 50 mg daily. 5. Chronic systolic congestive heart failure: Stable. Hold diuretics today as he is hypotensive. 6. Diabetes mellitus type II; Accu-Cheks before meals and at bedtime with sliding scale coverage. Blood sugars are controlled 7. Dyslipidemia: On home dose of statin 8. GERD patient is on PPI 9 chronic back pain with sciatica with history of pain seeking behavior 10. Gout -On allopurinol 11. DVT prophylaxis ~ on enoxaparin Advanced lab directive/living will: Full code. Discharge medication reconciliation done. Discharge follow-up instructions completed. Discharge process discussed with the patient and all questions were answered to patient's satisfaction. Total time spent, exact 35 minutes on discharge meds reconciliation, examination, coordination of care with nurses and ancillary staff, review of imaging and blood test and discussion with the patient on follow-up instructions Objective: General: Alert, Oriented x3, Cooperative HEENT: Atraumatic, PERRLA, EOMI, Normocephalic Oral: No Gingival or Mucosal Lesions/ Ulcerations, Dry Mucosa Neck: Supple, No JVD, Negative Carotid Bruits Lungs: Air entry diminished diffusely in all lung bui, mild expiratory wheezing and rhonchi, shortness of breath resolved. Cardiovascular: Regular rate, Regular Rhythm, Normal S1, Normal S2, No murmurs, Left subclavicular pacemaker Abdomen: Bowel Sounds Present, Soft, Non Tender Extremities: Patient edema much controlled., Capillary Refill Less than 3 Seconds Skin: No rashes, No breakdown Musculoskeletal: Arthritic Changes, chronic mild tenderness in lumbar spine and cervical spine. Surgical scar present right lumbar spine. Neurological: Cranial nerves II-XII grossly intact, Deep Tendon Reflexes 2+/4 and Symmetrical, Neuro grossly intact Psych/Mental Status: Normal Affect, Appropriate - Physical Exam Vitals/I&O's: Vital Signs Temp Pulse Resp BP Pulse Ox 97.5 F L 102 H 18 133/73 H 97 11/06/19 08:51 11/06/19 08:51 11/06/19 08:51 11/06/19 08:51 11/06/19 08:51 Oxygen Flow Rate (L/min) 1.5 Oxygen Delivery Method Room Air Weight: 197 lb 12.074 oz Body Mass Index (BMI) 31.0 Finger Stick Blood Glucose 111 Intake and Output for Last 24 Hours 11/04/19 11/05/19 11/06/19 23:59 23:59 23:59 Intake Total 1520 / 1520 940 / 1240 550 / 550 Output Total 5530 / 5530 0 / 0 Balance -4010 / -4010 940 / 1240 550 / 550 Microbiology Past 72 Hours 11/03/19 08:10 Blood Culture (Wb) - Left Wrist Blood Culture - Preliminary No growth in 48 hours. 11/03/19 08:10 Blood Culture (Wb) - Right Hand Blood Culture - Preliminary No growth in 48 hours. 11/03/19 09:50 Sputum, Expectorated/Coughed Gram Stain - Final 11/03/19 09:50 Sputum, Expectorated/Coughed Respiratory Culture - Preliminary Appears to be normal respiratory zhang. Further studies to follow. 11/03/19 08:15 Mucosa - Nose Respiratory Panel (PCR) - Final Laboratory Results 11/05/19 11:14: POC Glucose 178 H 11/05/19 16:40: POC Glucose 148 H 11/05/19 21:58: POC Glucose 143 H 11/06/19 06:09: POC Glucose 148 H 11/06/19 06:15: Sodium 136, Potassium 4.3, Chloride 107, Carbon Dioxide 20.0 L, Anion Gap 9, BUN 39 H, Creatinine 1.30, Estim Creat Clear Calc 52.62, Est GFR (MDRD) Af Amer 71, Est GFR (MDRD) Non-Af 58 L, BUN/Creatinine Ratio 30.0 H, Glucose 149 H, Calcium 8.9, Magnesium 2.1 Current Medications Acetaminophen (Tylenol) 650 mg PO Q6H PRN PRN PRN Reason: Pain Score 1-10/Temp > 100.7 F Last Admin: 11/04/19 03:52 Dose: 650 mg Documented by: Albuterol Sulfate (Ventolin Aerosols) 2.5 mg INHALATION Q2H PRN PRN PRN Reason: SOB/Wheezing Albuterol/Ipratropium (Duoneb) 3 ml INHALATION Q4H.RT [facility] Last Admin: 11/06/19 07:02 Dose: 3 ml Documented by: Allopurinol (Zyloprim) 300 mg PO DAILY [facility] Last Admin: 11/06/19 08:56 Dose: 300 mg Documented by: [facility]) [facility] Last Admin: 11/06/19 08:57 Dose: 325 mg Documented by: Bisacodyl (Dulcolax) 10 mg RECTAL DAILY PRN PRN PRN Reason: Constipation Carvedilol (Coreg) 6.25 mg PO BID [facility] Last Admin: 11/06/19 08:57 Dose: 6.25 mg Documented by: Clopidogrel Bisulfate (Plavix) 75 mg PO DAILY [facility] Last Admin: 11/06/19 08:57 Dose: 75 mg Documented by: Dextrose (D50w Syringe) 0 gm IV X1 PRN; Protocol PRN Reason: Hypoglycemia Enoxaparin Sodium (Lovenox) 40 mg SC DAILY [facility] Last Admin: 11/06/19 08:57 Dose: 40 mg Documented by: Furosemide (Lasix) 40 mg PO BIDLX [facility] Last Admin: 11/06/19 08:57 Dose: 40 mg Documented by: Glimepiride (Amaryl) 1 mg PO DAILYCM [facility] Last Admin: 11/06/19 08:57 Dose: 1 mg Documented by: Glucagon () 1 mg IM .X1 PRN PRN Reason: Hypoglycemia Guaifenesin (Mucinex) 1,200 mg PO BID [facility] Last Admin: 11/06/19 08:56 Dose: 1,200 mg Documented by: Hydromorphone HCl (Dilaudid Inj) 1 mg IV Q3H PRN PRN PRN Reason: Pain Score 6-10/10 Last Admin: 11/06/19 10:05 Dose: 1 mg Documented by: Insulin Human Lispro (Humalog Kwikpen (Bkc)) 0 unit SC [facility]; Protocol Last Admin: 11/06/19 06:24 Dose: Not Given Documented by: Isosorbide Mononitrate (Imdur) 30 mg PO DAILY [facility] Last Admin: 11/06/19 08:57 Dose: 30 mg Documented by: Levothyroxine Sodium (Synthroid) 25 mcg PO DAILY@0600 [facility] Last Admin: 11/06/19 06:00 Dose: 25 mcg Documented by: Melatonin (Melatonin) 3 mg PO QHS PRN PRN PRN Reason: INSOMNIA Last Admin: 11/03/19 21:56 Dose: 3 mg Documented by: Methylprednisolone (Solu-Medrol) 40 mg IV Q8 [facility] Last Admin: 11/06/19 06:00 Dose: 40 mg Documented by: Metoclopramide HCl (Reglan) 5 mg IV Q6 [facility] Last Admin: 11/06/19 06:00 Dose: 5 mg Documented by: Nicotine (Nicoderm Cq (Pbkc)) 21 mg TRANSDERM. DAILY [facility] Last Admin: 11/06/19 08:57 Dose: 21 mg Documented by: Nitroglycerin (Nitrostat) 0.4 mg SUBLINGUAL Q5M PRN PRN Reason: CHEST PAIN Oxycodone HCl (Oxyir) 10 mg PO Q4H PRN PRN PRN Reason: Pain Score 4-5/10 Last Admin: 11/06/19 09:04 Dose: 10 mg Documented by: Pantoprazole Sodium (Protonix) 40 mg PO DAILY [facility] Last Admin: 11/06/19 08:56 Dose: 40 mg Documented by: Polyethylene Glycol (Miralax) 17 gm PO DAILY [facility] Last Admin: 11/06/19 08:59 Dose: Not Given Documented by: Prochlorperazine Edisylate (Compazine Iv) 10 mg IV Q6H PRN PRN PRN Reason: nausea/vomitng Last Admin: 11/03/19 15:29 Dose: 10 mg Documented by: Rosuvastatin Calcium (Crestor) 40 mg PO QHS [facility] Last Admin: 11/05/19 22:05 Dose: 40 mg Documented by: Senna/Docusate Sodium (Senokot-S, Salima-Colace) 2 tablet PO BID [facility] Last Admin: 11/06/19 08:56 Dose: 2 tablet Documented by: Sertraline HCl (Zoloft) 50 mg PO DAILY [facility] Last Admin: 11/06/19 08:56 Dose: 50 mg Documented by: Sodium Chloride () 10 - 40 ml IV UD PRN PRN Reason: SALINE FLUSH Last Admin: 11/06/19 10:05 Dose: 10 ml Documented by: Spironolactone (Aldactone) 25 mg PO DAILY [facility] Last Admin: 11/06/19 08:57 Dose: 25 mg Documented by: Discharge Activity: May Not Drive Call your doctor if you observe: Fever of 101 or Higher, Numbness or Tingling, Change in Color, Inability to have a bowel movement, Shortness of breath, Dizziness, Fainting spells, Swelling in the ankles, Chest pain, Prolonged hiccoughing, Increased palpitations (irregular heartbeat), Calf discomfort, Uncontrolled pain Home Medications: Medications to take at Discharge Isosorbide Mononitrate [Imdur] 30 mg PO DAILY 02/18/17 Albuterol Aerosols [Ventolin Aerosols] 2.5 mg INHALATION Q4H PRN PRN 02/23/17 Pantoprazole Sodium [Protonix] 40 mg PO DAILY 11/15/17 Lisinopril [Zestril] 2.5 mg PO DAILY 05/21/18 Rosuvastatin Calcium [Crestor] 40 mg PO DAILY 06/16/18 Clopidogrel Bisulfate [Plavix] 75 mg PO DAILY 09/01/18 Allopurinol 300 mg PO DAILY 09/20/18 Nitroglycerin 0.4 mg SL PRN PRN 12/01/18 Albuterol Inhaler [Ventolin Hfa] 2 puff INHALATION Q4H PRN PRN 02/24/19 Oxycodone HCl/Acetaminophen [Oxycodon-Acetaminophen 7.5-325] 1 tab PO Q6H PRN 05/02/19 aspirin 325 mg tablet,delayed release 325 mg PO DAILY 10/05/19 spironolactone 25 mg tablet 25 mg PO DAILY 10/05/19 Carvedilol [Coreg (Beta Sina)] 6.25 mg PO BID 10/19/19 Furosemide [Lasix] 40 mg PO BID@1000,1800 10/19/19 Glimepiride [Amaryl] 1 mg PO DAILY 10/19/19 Levothyroxine [Synthroid] 25 mcg PO DAILY@0600 10/19/19 Sertraline HCl [Zoloft] 50 mg PO DAILY 10/19/19 Guaifenesin [Mucinex] 1,200 mg PO BID #14 tab 11/06/19 Nicotine [Nicoderm Cq] 21 mg TRANSDERM. DAILY #30 patch 11/06/19 Prednisone 10 mg PO DAILY #30 tab 11/06/19 Following Prescrptions Were Given to Patient: Guaifenesin [Mucinex] 1,200 mg PO BID #14 tab Transmission Status: Received by [facility] Nicotine [Nicoderm Cq] 21 mg TRANSDERM. DAILY #30 patch Transmission Status: Received by [facility] Prednisone 10 mg PO DAILY #30 tab Transmission Status: Received by [facility] Primary Care Physician: Juan De La Vega III, MD [Primary Care Provider] - Please Follow Up With: Juan De La Vega III, MD When: in 1-2 week Please Follow Up With: Carlos Pop DO When: in 2-3 week Please Follow Up With: Gordy Inman MD When: in 2-3 weeks Medical Necessity - Tobacco Use Smoking Status: Current every day smoker Meaningful Use Info Meaningful Use Diagnoses (Choose all that apply): None applicable Inpatient E&M: 91686 Disch Hosp
--- NOTE | 2019-11-07 12:51 | CASEMGMT ---
RN CM Discharge Follow-up Phone Call: RONAK: Manfred Strata: 4 Call Date: 11/07/19 Discharge Date: 11/06/19 Time of Call: 1250 Duration: 1 min Admitting Diagnosis: Exacerbation of COPD RN CM attempted to complete follow-up phone call after recent hospitalization. No answer after several rings, no voicemail box to leave message. CM will attempted call again later.
== END 2019-11-06 11:10 | disposition home or self-care (01) | DRG 191 ==
LOC: ED 11:01 → PCU 13:11
PROVIDERS: Admitting Provider Internal Medicine; Emergency Provider Emergency Medicine; PCP Family Medicine; Visit Provider Internal Medicine
DX: J44.1 Chronic obstructive pulmonary disease with (acute) exacerbation (principal); N17.9 Acute kidney failure, unspecified; I13.0 Hypertensive heart and chronic kidney disease with heart failure and stage 1 through stage 4 chronic kidney disease, or unspecified chronic kidney disease; I50.22 Chronic systolic (congestive) heart failure; N18.3 Chronic kidney disease, stage 3 (moderate); E11.22 Type 2 diabetes mellitus with diabetic chronic kidney disease; E66.01 Morbid (severe) obesity due to excess calories; G47.33 Obstructive sleep apnea (adult) (pediatric); F17.200 Nicotine dependence, unspecified, uncomplicated; E86.0 Dehydration; I25.10 Atherosclerotic heart disease of native coronary artery without angina pectoris; I95.9 Hypotension, unspecified; K21.9 Gastro-esophageal reflux disease without esophagitis; E78.5 Hyperlipidemia, unspecified; I25.5 Ischemic cardiomyopathy; Z95.810 Presence of automatic (implantable) cardiac defibrillator; Z79.82 Long term (current) use of aspirin; Z79.02 Long term (current) use of antithrombotics/antiplatelets; Z82.49 Family history of ischemic heart disease and other diseases of the circulatory system; Z80.1 Family history of malignant neoplasm of trachea, bronchus and lung; Z82.5 Family history of asthma and other chronic lower respiratory diseases; Z95.5 Presence of coronary angioplasty implant and graft; Z51.5 Encounter for palliative care; M10.9 Gout, unspecified; M54.30 Sciatica, unspecified side; Z79.890 Hormone replacement therapy; Z68.31 Body mass index [BMI] 31.0-31.9, adult
CPT/HCPCS: 36415; 71045; 80048; 82962; 83605; 83735; 83880; 84484; 85025; 87040; 87070; 87205; 87633; 93005; 94640; 94667; 94668; 99251; 99285; J7030; J7040; J7050; A4216; G0463; J2405

== ENCOUNTER 2019-12-16 15:15 | Emergency (ER) | payer MEDICARE, MEDICAID, SELFPAY ==
[2019-11-03 12:18] VITALS: BMI 31.0
[2019-12-16 15:16] VITALS: BP 148/108; PULSE 68; RESP 16; TEMP 36.8; O2SAT 94; BMI 31.5
--- NOTE | 2019-12-16 15:38 | RAD_ITS ---
STUDY: X-RAY - LEFT SHOULDER REASON FOR EXAM: Male, 69 years old. FALL, LEFT SHOULDER PAIN TECHNIQUE: 2 view(s) of the shoulder. COMPARISON: April 24, 2018 FINDINGS: Normal glenohumeral articulation. Normal acromioclavicular joint. Normal acromion. Normal humeral head and visualized proximal humerus. The soft tissue structures are unremarkable. Normal visualized pulmonary apex. RAD/Shoulder min 2 Views IMPRESSION: Normal x-ray examination of the shoulder. Electronically Signed: Cy Campbell MD at 17:46 EDT , Service support ,
--- NOTE | 2019-12-16 15:44 | ED.RN ---
NO RESP PRECAUTIONS PER MD.
[2019-12-16 15:51] VITALS: PULSE 88; RESP 20
[2019-12-16] MEDS: Ipratropium/Albuterol Sulfate 3 ML AMPUL.NEB INHALATION (15:51)
[2019-12-16] MEDS: Albuterol 2.5 MG/3 ML VIAL.NEB. INHALATION (15:51)
[2019-12-16 16:05] LABS: Absolute Lymphocyte Count 1.76 X10^3/uL (0.83-4.51); Absolute Neutrophil Count 5.1 X10^3/uL (2.0-7.7); Basophil# 0.04 X10^3/uL; Basophil% 0.5 % (0-1); Eosinophil# 0.06 X10^3/uL; Eosinophils% 0.8 % (0-5); Hematocrit 43.1 % (40-54); Hemoglobin 13.9 g/dL (13.0-16.5); Lymphocyte # 1.76 X10^3/ul (4.0); Lymphocyte % 22.8 % (19-41); Mean Corp Hgb Conc 32.3 g/dL (32-36); Mean Corpuscular Hgb 29.8 pg (27.0-32.0); Mean Corpuscular Volume 92.3 fL (80-94); Mean Platelet Vol. 9.6 fl (6.2-12.0); Monocyte# 0.74 X10^3/uL; Monocyte% 9.6 % (0-10); NRBC Flagged by Analyzer 0 % (0-5); Neutrophil # 5.08 X10^3/uL (2.7-7.7); Neutrophil % 65.9 % (47-70); Platelet Count 258 K/mm3 (150-450); RBC Distribution Width CV 14.9 % (11.6-14.6); RBC Distribution Width SD 50.3 fl (35.1-43.9); Red Blood Count 4.67 M/mm3 (4.6-6.2); White Blood Count 7.7 K/mm3 (4.4-11.0)
[2019-12-16] MEDS: Ondansetron 4 MG/2 ML Vial IV (16:14)
[2019-12-16] MEDS: MethylPREDNISolone 125 MG/2 ML Vial IV (16:14)
[2019-12-16] MEDS: Morphine 4 MG/ML Syringe IV ×2 (16:14→18:41)
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
[2019-12-16 16:37] LABS: Anion Gap 7 (5-15); BUN 22 mg/dL (7-18); BUN/Creat Ratio 19.3 RATIO (10-20); Calcium,Total 9.1 mg/dL (8.5-10.1); Chloride 105 mmol/L (98-107); Creatinine, Serum 1.14 mg/dL (0.70-1.30); EST Glomerular Filtration Rate 68 mL/min (>60); Est Glom Filt Rate - Afr Amer 82 mL/min (>60); Glucose 84 mg/dL (74-106); Potassium 3.4 mmol/L (3.5-5.1); Sodium Level 141 mmol/L (136-145)
--- NOTE | 2019-12-16 17:15 | RAD_ITS ---
STUDY: X-RAY CHEST REASON FOR EXAM: Male, 69 years old. FALL, LEFT RIB PAIN TECHNIQUE: Frontal and lateral views of the chest. COMPARISON: November 03, 2019 FINDINGS: Bipolar pacer and sternotomy wires. The lungs are clear and expanded. There is no demonstrated pleural abnormality. Normal size heart. Normal mediastinum and serjio. Normal visualized pulmonary arteries. Normal visualized aortic arch and descending thoracic aorta. Normal visualized thoracic spine. Normal visualized ribs, clavicles, and shoulders. There is no demonstrated abnormality of the visualized soft tissue structures of the upper abdomen. RAD/Chest PA and Lateral IMPRESSION: No acute disease. Electronically Signed: Cy Campbell MD at 17:43 EDT , Service support ,
[2019-12-16 18:42] VITALS: BP 138/77; PULSE 62; RESP 15; O2SAT 97
== END 2019-12-16 18:43 | disposition home or self-care (01) ==
LOC: ED 18:09
PROVIDERS: Emergency Provider Emergency Medicine; PCP Family Medicine
DX: S20.212A Contusion of left front wall of thorax, initial encounter (principal); S40.012A Contusion of left shoulder, initial encounter; J44.1 Chronic obstructive pulmonary disease with (acute) exacerbation; W18.30XA Fall on same level, unspecified, initial encounter; Y93.9 Activity, unspecified; Y92.89 Other specified places as the place of occurrence of the external cause; Y99.9 Unspecified external cause status; I10 Essential (primary) hypertension; I25.10 Atherosclerotic heart disease of native coronary artery without angina pectoris; M54.9 Dorsalgia, unspecified; G89.29 Other chronic pain; N18.3 Chronic kidney disease, stage 3 (moderate); K21.9 Gastro-esophageal reflux disease without esophagitis; I13.0 Hypertensive heart and chronic kidney disease with heart failure and stage 1 through stage 4 chronic kidney disease, or unspecified chronic kidney disease; E78.5 Hyperlipidemia, unspecified; E66.01 Morbid (severe) obesity due to excess calories; Z82.49 Family history of ischemic heart disease and other diseases of the circulatory system; Z88.6 Allergy status to analgesic agent; Z88.8 Allergy status to other drugs, medicaments and biological substances; Z95.810 Presence of automatic (implantable) cardiac defibrillator; I25.5 Ischemic cardiomyopathy; I50.22 Chronic systolic (congestive) heart failure; Z91.81 History of falling
CPT/HCPCS: 71046; 73030; 80048; 85025; 94640; 96374; 99285; A4216; J2405

== ENCOUNTER 2019-12-31 04:53 | Emergency (ER) | payer MEDICARE, MEDICAID, SELFPAY ==
[2019-12-21 10:17] VITALS: BMI 31.3
[2019-12-31 04:54] VITALS: BP 148/90; PULSE 102; RESP 18; TEMP 36.4; O2SAT 98; BMI 31.0
--- NOTE | 2019-12-31 05:07 | EKG12_ITS ---
Test Reason : NAUSEA Blood Pressure : / mmHG Vent. Rate : 099 BPM Atrial Rate : 099 BPM P-R Int : 150 ms QRS Dur : 116 ms QT Int : 392 ms P-R-T Axes : 046 -01 137 degrees QTc Int : 503 ms Sinus rhythm with occasional Premature ventricular complexes and Premature atrial complexes Incomplete left bundle branch block ST & T wave abnormality, consider lateral ischemia Prolonged QT Abnormal ECG Confirmed by SHAVONNE LUNDBERG, LISA ([id number]), editor magazine COREY BRYANT ([id number]) on 01/02/2020 1:32:46 PM Referred By: ISABELL Confirmed By:LISA MARVIN MD
--- NOTE | 2019-12-31 05:07 | CT_ITS ---
STUDY: CT BRAIN WITHOUT CONTRAST REASON FOR EXAM: Male, 69 years old. SANCHEZ WITH EMESIS x FEW DAYS, CONCERN FOR DEHYDRATION, HX TREMORS, STAGE 3 KD, HTN, STENT, CABG, COPD, DIAB RADIATION DOSAGE (If Supplied By Facility): CTDIvol = ( 44.99 ) mGy, DLP = ( 812.98 ) mGycm TECHNIQUE: Transaxial CT imaging of the brain was performed without administration of intravenous contrast material. Individualized dose optimization techniques were used for this CT. COMPARISON: February 25, 2019 FINDINGS: Normal soft tissue structures. Normal calvarium. There is an area of encephalomalacia in the LEFT parietal lobe which could be due to an old infarct. This is unchanged from the prior examination. There is mild cerebral atrophy with widening of the extra-axial spaces and ventricular dilatation. There are areas of decreased attenuation within the white matter tracts of the supratentorial brain, consistent with microvascular disease changes. Normal basal ganglia and thalami. Normal brainstem. There is mild cerebellar atrophy. There is no intracranial hemorrhage. There are no findings of an acute ischemic infarction. Normal visualized paranasal sinuses. CT/Brain/Head without Contrast IMPRESSION: There are chronic changes as described which are stable. There is NO evidence of acute abnormality. Electronically Signed: Serge Motley MD at 5:57 EDT , Service support ,
[2019-12-31] MEDS: 0.9% Normal Saline 1,000 ML 100 ML IV (05:17)
[2019-12-31] MEDS: Metoclopramide 10 MG/2 ML Vial 5 MG IV (05:18)
[2019-12-31 05:22] LABS: Absolute Neutrophil Count 6.1 X10^3/uL (2.0-7.7); Basophil# 0.03 X10^3/uL; Basophil% 0.3 % (0-1); Eosinophil# 0.11 X10^3/uL; Eosinophils% 1.2 % (0-5); Hematocrit 43.8 % (40-54); Hemoglobin 14.6 g/dL (13.0-16.5); Lymphocyte % 19.3 % (19-41); Mean Corp Hgb Conc 33.3 g/dL (32-36); Mean Corpuscular Hgb 30.7 pg (27.0-32.0); Mean Corpuscular Volume 92.2 fL (80-94); Mean Platelet Vol. 9.8 fl (6.2-12.0); Monocyte# 0.84 X10^3/uL; Monocyte% 9.5 % (0-10); NRBC Flagged by Analyzer 0 % (0-5); Neutrophil # 6.13 X10^3/uL (2.7-7.7); Neutrophil % 69.6 % (47-70); Platelet Count 197 K/mm3 (150-450); RBC Distribution Width SD 50.2 fl (35.1-43.9); Red Blood Count 4.75 M/mm3 (4.6-6.2); White Blood Count 8.8 K/mm3 (4.4-11.0)
--- NOTE | 2019-12-31 05:24 | ED.DCSUM_ITS ---
History of Present Illness Chief Complaint: Nausea/Vomiting Informant: Patient - Abdominal Pain/Flank Pain Onset: - - no abd pain - Nausea/Vomiting/Emesis GI Symptom: Nausea, Vomiting Onset: Days - several Quality: Nonbilious. Negative for: Blood streaks, Coffee ground, Hematemesis Severity: Severe - I can't keep anything down. I'm not eating anything, so I don't think food is triggering my symptoms. - Diarrhea/Melena/Hematochezia GI Symptom: Negative for: Diarrhea, Melena, Hematochezia Associated Symptoms: Negative for: Dysuria, Frequency, Hematuria, Urgency Narrative: Patient is a poor historian. Presents for vomiting for several days. In further questioning and review of systems, it seems that he has had headaches for the same period of time, the headaches come and go, and when they are worse he tends to vomit more. He states he is sensitive to light, feels like the headache is on both sides, frontal, behind his eyes. He denies any focal neurologic symptoms or changes in his vision. States he always has blurry vision and it has not changed. He has had no loss or diplopia. No confusion, loss of consciousness, or chest pain. He has chronic cough and shortness of breath that is unchanged and he associates with his COPD. He states that 1 week ago, he started a new medication for his congestive heart failure, Entresto. He is concerned this could be causing his symptoms. He had no problems with the medication for the first 4 or so days of taking it. - Past Medical History (1) Benign essential hypertension Status: Chronic (2) CAD (coronary artery disease) Status: Chronic (3) COPD (chronic obstructive pulmonary disease) Status: Chronic (4) Chronic back pain Status: Chronic (5) Chronic renal failure, stage 3 (moderate) Status: Chronic (6) Chronic systolic (congestive) heart failure Status: Chronic (7) Degenerative cervical disc Status: Chronic (8) Gastroesophageal reflux disease Status: Chronic (9) Gout Status: Chronic (10) Hyperlipidemia Status: Chronic (11) Ischemic cardiomyopathy Status: Chronic Comment: 25% ejection fraction in November 2016 (12) Type 2 diabetes mellitus Status: Chronic (13) ARIADNA (obstructive sleep apnea) Status: Suspected Past Medical History - Allergies and Home Meds Allergies/Adverse Reactions: Allergies chlorpromazine HCl [From Thorazine] Allergy (Severe, Verified 12/31/19 04:57) Hives PER PATIENT tramadol HCl [From Ultram] Allergy (Severe, Verified 12/31/19 04:57) Hives PER PATIENT codeine Allergy (Intermediate, Verified 12/31/19 04:57) Hives atorvastatin Adverse Reaction (Intermediate, Verified 12/31/19 04:57) Other LEG PAIN/CRAMPS cyclobenzaprine [From Flexeril] Adverse Reaction (Verified 12/31/19 04:57) Upset Stomach metformin Adverse Reaction (Verified 12/31/19 04:57) Upset Stomach naproxen Adverse Reaction (Verified 12/31/19 04:57) Upset Stomach promethazine [From Phenergan] Adverse Reaction (Verified 12/31/19 04:57) Other CONFUSION Primary Care Physician: Juan De La Vega III, MD [Primary Care Provider] - 3-5 Days if not improving Surgical History: angioplasty - stents x 10, coronary bypass surgery, - - AICD placement, back surgery x 2, hernia repair, PCI. Smoking Status: Light Smoker (<10/day) - Family History Paternal Family History: Family History (Last Reviewed 10/07/19 @ 07:06 by NEFTALI Evangeilsta) Brother CAD (coronary artery disease) Myocardial infarction Sudden cardiac Mother Cancer Hypertension Father Cancer COPD (chronic obstructive pulmonary disease) Family History: Reports: Cancer, Heart Disease Maternal Family History: Family History (Last Reviewed 10/07/19 @ 07:06 by NEFTALI Evangelista) Brother CAD (coronary artery disease) Myocardial infarction Sudden cardiac Mother Cancer Hypertension Father Cancer COPD (chronic obstructive pulmonary disease) Family History: Reports: - - Patient notes a paternal family history of chronic lung disease, lung cancer with history of tobacco use. Review of Systems General: Reports: Malaise. Denies: Chills, Fever, Sweats Eyes: Reports: Blurred Vision - bilaterally. Denies: Visual changes - bilaterally, Diplopia ENT: Denies: Rhinorrhea, Sore throat Cardiovascular: Denies: Chest pain, Palpitations Respiratory: Reports: Dyspnea, Cough, Dyspnea on exertion. Denies: Sputum, Orthopnea Gastrointestinal: Reports: Nausea, Vomiting. Denies: Abdominal pain, Diarrhea, Melena, Hematochezia Genitourinary: Denies: Dysuria, Hematuria, Frequency Musculoskeletal: Denies: Myalgias, Neck pain, Back pain, Swelling, Extremity Pain Skin: Denies: Rash, Wounds Neurological: Reports: Headache. Denies: Weakness, Numbness Physical Exam Vital Signs/Narrative: Vital Signs Temp Pulse Resp BP Pulse Ox 12/31/19 04:54 97.6 F L 102 H 18 148/90 H 98 Inital Vital Signs reviewed: Yes General: Well nourished, Well developed, No Acute Distress Head: Normocephalic, Atraumatic Eyes: Perrl, EOMI ENT: Moist mucous membranes, No rhinorrhea Neck: Supple, Nontender Cardiovascular: Regular rate, Regular rhythm, No murmurs, Tachycardia - mild Respiratory: No distress, CTA bilaterally, Chest nontender Abdomen: Soft, Nontender, Nondistended, Normal bowel sounds Back: Nontender, Normal Inspection. Negative for: CVA tenderness Extremities: Nontender, No edema. Negative for: Calf Tenderness Skin: Normal color, No rash Neurological: Alert, Oriented x3, Cranial nerves II-XII grossly intact, Normal Strength, Normal Sensation, Normal Gait Psychological: Normal affect, Normal Mood Diagnostic/Tx/Re-eval Impressions Brain CT 12/31/19 05:07 IMPRESSION: There are chronic changes as described which are stable. There is NO evidence of acute abnormality. Electronically Signed: Serge Motley MD at 5:57 EDT , Service support , 12/31/19 05:07 Brain/Head without Contrast [CT] Stat Laboratory Results 12/31/19 12/31/19 05:13 05:13 WBC 8.8 RBC 4.75 Hgb 14.6 Hct 43.8 MCV 92.2 MCH 30.7 MCHC 33.3 RDW Std Deviation 50.2 H RDW Coeff of Maggie 15.0 H Plt Count 197 MPV 9.8 Immature Gran % (Auto) 0.100 Neut % (Auto) 69.6 Lymph % (Auto) 19.3 [place] % (Auto) 9.5 Eos % (Auto) 1.2 Baso % (Auto) 0.3 Absolute Neuts (auto) 6.1 Absolute Lymphs (auto) 1.70 Nucleated RBC % 0 Sodium 134 L Potassium 3.5 Chloride 97 L Carbon Dioxide 25.0 Anion Gap 12 BUN 27 H Creatinine 2.23 H Estim Creat Clear Calc 30.67 Est GFR (MDRD) Af Amer 38 L Est GFR (MDRD) Non-Af 31 L BUN/Creatinine Ratio 12.1 Glucose 100 Calcium 9.0 Total Bilirubin 0.60 AST 31 ALT 29 Alkaline Phosphatase 80 Troponin I 0.018 Total Protein 7.9 Albumin 3.6 Globulin 4.3 H Albumin/Globulin Ratio 0.8 L Lipase 44 L - Rhythm Strip Rhythm Strip: Sinus Rhythm Rate: 99 Ectopy: PVC(s) - EKG Initial EKG Interpretation: Sinus Rhythm, No Acute Injury Pattern, LBBB - incomplete, Non- Specific ST Changes Prior: Unchanged - Medical Decision Making Labs are unremarkable, CT of the head shows stable encephalomalacia high parietal left side, unchanged compared with prior. I discussed this finding with the patient, and it seems he does not have any idea what I am talking about, and ask like he has never heard about this. He does not recall ever being told he had a stroke. It is possible this is congenital. In our system, he has been to this hospital many many times. He has never had an MRI. He is advised to follow-up with his doctor concerning this. I do not know if this is related to his symptoms, it certainly could be related to his headaches as this is not the first time he has had headaches and states that before he turned 51 he was having cluster headaches for years but then they stopped. After treating him with Reglan and Zofran, his headache is improved and his nausea/vomiting is resolved. He is tolerating oral fluids. I feel he is stable to be discharged home and I do not think he needs a CT of his abdomen, his exam there was very benign. Discussed all this with the patient he is comfortable with following up with his doctor. ED Disposition - Plan for ED Patient: Disposition: Home or Assisted Living Diagnosis: Migraine, Vomiting, Encephalomalacia Instructions: ED, Migraine (Classical), ED Nausea Vomiting Adult Referrals: Juan De La Vega III, MD [Primary Care Provider] - 3-5 Days if not improving
[2019-12-31] MEDS: Ondansetron 4 MG/2 ML Vial IV (05:54)
[2019-12-31 05:56] VITALS: BP 91/49; PULSE 63; RESP 15; O2SAT 97
[2019-12-31 05:59] LABS: ALB/GLOB Ratio 0.8 RATIO (0.9-2.4); AST(SGOT) 31 U/L (15-37); Alanine Aminotransfer ALT/SGPT 29 U/L (16-61); Albumin, Serum 3.6 g/dL (3.2-5.0); Alkaline Phosphatase 80 U/L (45-117); Anion Gap 12 (5-15); BUN 27 mg/dL (7-18); BUN/Creat Ratio 12.1 RATIO (10-20); Chloride 97 mmol/L (98-107); Creatinine, Serum 2.23 mg/dL (0.70-1.30); EST Glomerular Filtration Rate 31 mL/min (>60); Est Glom Filt Rate - Afr Amer 38 mL/min (>60); Estimated Creatinine Clearance 30.67 ml/min; Globulin 4.3 g/dL (2.2-4.2); Glucose 100 mg/dL (74-106); Lipase 44 U/L (73-393); Potassium 3.5 mmol/L (3.5-5.1); Protein, Total 7.9 g/dL (6.4-8.2); Sodium Level 134 mmol/L (136-145)
[2019-12-31 07:14] VITALS: BP 125/74; PULSE 92; RESP 16; O2SAT 99
== END 2019-12-31 07:14 | disposition home or self-care (01) ==
PROVIDERS: Emergency Provider Emergency Medicine; PCP Family Medicine
DX: G43.909 Migraine, unspecified, not intractable, without status migrainosus (principal); R11.2 Nausea with vomiting, unspecified; G93.89 Other specified disorders of brain; F17.200 Nicotine dependence, unspecified, uncomplicated
CPT/HCPCS: 70450; 80053; 83690; 84484; 85025; 93005; 96361; 96374; 96375; 99285; J7030; A4216; J2405

== ENCOUNTER 2020-02-10 04:57 | Emergency (ER) | payer MEDICARE, MEDICAID, SELFPAY ==
[2020-01-03 06:51] VITALS: BMI 31.0
[2020-02-10 04:59] VITALS: BP 133/81; PULSE 98; RESP 18; TEMP 36.9; O2SAT 94; BMI 31.7
--- NOTE | 2020-02-10 05:06 | EKG12_ITS ---
Test Reason : DYSRHYTHMIA Blood Pressure : / mmHG Vent. Rate : 093 BPM Atrial Rate : 093 BPM P-R Int : 148 ms QRS Dur : 114 ms QT Int : 384 ms P-R-T Axes : 065 002 118 degrees QTc Int : 477 ms Normal sinus rhythm with sinus arrhythmia Incomplete left bundle branch block Nonspecific T wave abnormality Prolonged QT Abnormal ECG Confirmed by SHAVONNE LUNDBERG, LISA ([id number]), book or script editor COREY BRYANT ([id number]) on 02/14/2020 9:18:07 AM Referred By: ERIN Confirmed By:LISA MARVIN MD
--- NOTE | 2020-02-10 05:08 | RAD_ITS ---
STUDY: X-RAY - UNILATERAL RIBS ( LEFT ) WITH CHEST REASON FOR EXAM: Male, 69 years old. patient fell on concrete yesterday and landed on chest. patient having left chest and lt mid anterior rib pain. worse with movement and coughing TECHNIQUE - RIBS: 3 view(s) of the ribs. TECHNIQUE - CHEST: Single AP portable view of the chest. COMPARISON: None. FINDINGS - RIBS: There is cortical irregularity of the anterior aspect of the left fourth and fifth ribs suggesting nondisplaced fractures. FINDINGS - CHEST: Pacemaker is seen on the left side. The lungs are clear and expanded. There is no demonstrated pleural abnormality. Sternal cerclage wires and vascular clips are present from a prior sternotomy and coronary artery bypass graft procedure (CABG). Normal mediastinum and serjio. Normal visualized pulmonary arteries. Normal visualized aortic arch and descending thoracic aorta. Normal visualized thoracic spine. There is degenerative osteoarthritis of the bilateral shoulders. There is no demonstrated abnormality of the visualized soft tissue structures of the upper abdomen. RAD/Ribs Uni Min 3V w/PA Chest IMPRESSION: RIBS: There is cortical irregularity of the anterior aspect of the left fourth and fifth ribs suggesting nondisplaced fractures. CHEST: No evidence of pneumothorax. Electronically Signed: Lisa Aguilar, at 6:16 EDT Tel , Service support ,
--- NOTE | 2020-02-10 05:11 | ED.VIS.GEN ---
History of Present Illness Chief Complaint: Chest Pain Informant: Patient Narrative: 69-year-old male presenting with left-sided rib pain. He states he had a mechanical fall while going out to take the trash and fell onto the concrete. He states he tripped over his slipper and he did not get his hands out in front of him. He states that bystanders did help him to his feet. The pain in the left side of his ribs since yesterday afternoon. He states he did not try any Tylenol, ibuprofen, ice. He does not feel like he short of breath. That he did not hit his head and did not have loss of consciousness. Past Medical History - Allergies and Home Meds Allergies/Adverse Reactions: Allergies chlorpromazine HCl [From Thorazine] Allergy (Severe, Verified 02/10/20 05:09) Hives PER PATIENT tramadol HCl [From Ultram] Allergy (Severe, Verified 02/10/20 05:09) Hives PER PATIENT codeine Allergy (Intermediate, Verified 02/10/20 05:09) Hives atorvastatin Adverse Reaction (Intermediate, Verified 02/10/20 05:09) Other LEG PAIN/CRAMPS cyclobenzaprine [From Flexeril] Adverse Reaction (Verified 02/10/20 05:09) Upset Stomach metformin Adverse Reaction (Verified 02/10/20 05:09) Upset Stomach naproxen Adverse Reaction (Verified 02/10/20 05:09) Upset Stomach promethazine [From Phenergan] Adverse Reaction (Verified 02/10/20 05:09) Other CONFUSION Primary Care Physician: Juan De La Vega III, MD [Primary Care Provider] - Surgical History: angioplasty - stents x 10, coronary bypass surgery, - - AICD placement, back surgery x 2, hernia repair, PCI. Smoking Status: Current every day smoker - Family History Paternal Family History: Family History (Last Reviewed 01/03/20 @ 11:03 by Alyssa Hawkins) Brother CAD (coronary artery disease) Myocardial infarction Sudden cardiac Mother Cancer Hypertension Father Cancer COPD (chronic obstructive pulmonary disease) Family History: Reports: Cancer, Heart Disease Maternal Family History: Family History (Last Reviewed 01/03/20 @ 11:03 by Alyssa Hawkins) Brother CAD (coronary artery disease) Myocardial infarction Sudden cardiac Mother Cancer Hypertension Father Cancer COPD (chronic obstructive pulmonary disease) Family History: Reports: - - Patient notes a paternal family history of chronic lung disease, lung cancer with history of tobacco use. Review of Systems General: Denies: Chills, Fever Eyes: Denies: Visual changes - bilaterally, Diplopia ENT: Denies: Rhinorrhea, Sore throat Cardiovascular: Reports: Chest pain, - - Left sided rib pain, - Respiratory: Denies: Dyspnea, Cough, Sputum Gastrointestinal: Reports: Abdominal pain. Denies: Nausea, Vomiting Musculoskeletal: Denies: Myalgias Skin: Denies: Rash, Abscess Neurological: Denies: Headache Physical Exam Vital Signs/Narrative: Vital Signs Temp Pulse Resp BP Pulse Ox 02/10/20 04:59 98.5 F 98 18 133/81 H 94 Inital Vital Signs reviewed: Yes General: Obese, No Acute Distress Head: Normocephalic Eyes: Perrl, EOMI ENT: Moist mucous membranes Cardiovascular: Regular rate, Regular rhythm Respiratory: No distress, - - Tenderness to palpation of the left ribs in the midaxillary line and posterior axillary line. No gross deformity. Equal symmetric breath sounds bilaterally. No bruising. Abdomen: Soft Extremities: Nontender Skin: Normal color, No rash Neurological: Alert, Oriented x3 Psychological: Normal affect Diagnostic/Tx/Re-eval - Rhythm Strip Rhythm Strip: Sinus Rhythm Rate: 93 - ER interval 148 ms, QRS duration 114 ms, QTC 477 ms Ectopy: None - Significant interval changes from previous EKG performed 12/31/2019 - Medical Decision Making Clinical Impression(s) from Imaging Studies Ribs w/Chest X-Ray 02/10/20 05:08 IMPRESSION: RIBS: There is cortical irregularity of the anterior aspect of the left fourth and fifth ribs suggesting nondisplaced fractures. CHEST: No evidence of pneumothorax. Electronically Signed: Lisa Aguilar, at 6:16 EDT Tel , Service support , Laboratory Data 02/10/20 05:20 WBC 6.1 RBC 4.38 L Hgb 13.6 Hct 41.4 MCV 94.5 H MCH 31.1 MCHC 32.9 RDW Std Deviation 50.2 H RDW Coeff of Maggie 14.6 Plt Count 225 MPV 9.4 Immature Gran % (Auto) 0.200 Neut % (Auto) 60.0 Lymph % (Auto) 27.2 [place] % (Auto) 10.7 H Eos % (Auto) 1.2 Baso % (Auto) 0.7 Absolute Neuts (auto) 3.6 Absolute Lymphs (auto) 1.65 Nucleated RBC % 0 Patient presents with left upper rib pain after mechanical fall which she sustained yesterday afternoon. He states that he is not significantly short of breath however he does have pain under the left axilla and upper ribs anteriorly. Patient's vital signs are stable and he is afebrile. He has equal symmetric breath sounds and chest wall rise. Rib series identifies fractures noted above. No pneumothorax or other acute abnormality. Patient was given 2 doses of morphine in the ED for his pain. Patient does have Percocet 7.5 g that he takes at home 4 times daily since the patient is having chest pain I did have an EKG performed which is sinus rhythm without signs of ischemic change. There is no acute abnormality since previous EKG done in December. Patient CBC is normal. Due to issues with the analyzer in the laboratory his BMP and troponin are pending. Patient will be signed out to incoming ED physician for follow-up on these. If these are normal then I feel he will likely be discharged home and he can take his home medication for his rib pain. ED Disposition - Plan for ED Patient: Disposition: Home or Assisted Living Diagnosis: Fall, Ribs, multiple fractures Instructions: ED Rib Fx Referrals: Juan De La Vega III, MD [Primary Care Provider] -
[2020-02-10] MEDS: Morphine 4 MG/ML Syringe IV ×2 (05:26→07:02)
[2020-02-10 05:33] LABS: Absolute Lymphocyte Count 1.65 X10^3/uL (0.83-4.51); Absolute Neutrophil Count 3.6 X10^3/uL (2.0-7.7); Basophil# 0.04 X10^3/uL; Basophil% 0.7 % (0-1); Eosinophil# 0.07 X10^3/uL; Eosinophils% 1.2 % (0-5); Hematocrit 41.4 % (40-54); Hemoglobin 13.6 g/dL (13.0-16.5); Lymphocyte # 1.65 X10^3/ul (4.0); Lymphocyte % 27.2 % (19-41); Mean Corp Hgb Conc 32.9 g/dL (32-36); Mean Corpuscular Hgb 31.1 pg (27.0-32.0); Mean Corpuscular Volume 94.5 fL (80-94); Mean Platelet Vol. 9.4 fl (6.2-12.0); Monocyte# 0.65 X10^3/uL; Monocyte% 10.7 % (0-10); NRBC Flagged by Analyzer 0 % (0-5); Neutrophil # 3.64 X10^3/uL (2.7-7.7); Platelet Count 225 K/mm3 (150-450); RBC Distribution Width CV 14.6 % (11.6-14.6); RBC Distribution Width SD 50.2 fl (35.1-43.9); Red Blood Count 4.38 M/mm3 (4.6-6.2); White Blood Count 6.1 K/mm3 (4.4-11.0)
[2020-02-10 06:04] VITALS: BP 126/75; PULSE 88; RESP 14; O2SAT 95
[2020-02-10] MEDS: Lidocaine 5% Patch 1 PATCH TOPICAL (06:04)
[2020-02-10 06:53] VITALS: PULSE 82; RESP 16
[2020-02-10] MEDS: Albuterol 2.5 MG/3 ML VIAL.NEB. INHALATION (06:53)
[2020-02-10 07:15] LABS: Anion Gap 7 (5-15); BUN 17 mg/dL (7-18); BUN/Creat Ratio 12.6 RATIO (10-20); Calcium,Total 8.3 mg/dL (8.5-10.1); Chloride 105 mmol/L (98-107); Creatinine, Serum 1.35 mg/dL (0.70-1.30); EST Glomerular Filtration Rate 56 mL/min (>60); Est Glom Filt Rate - Afr Amer 67 mL/min (>60); Estimated Creatinine Clearance 50.67 ml/min; Glucose 88 mg/dL (74-106); Potassium 3.4 mmol/L (3.5-5.1); Sodium Level 140 mmol/L (136-145)
[2020-02-10 07:32] VITALS: BP 133/84; PULSE 79; RESP 18; O2SAT 96
== END 2020-02-10 07:33 | disposition home or self-care (01) ==
PROVIDERS: Emergency Provider Student in an Organized Health Care Education/Training Program; PCP Family Medicine
DX: S22.42XA Multiple fractures of ribs, left side, initial encounter for closed fracture (principal); W01.198A Fall on same level from slipping, tripping and stumbling with subsequent striking against other object, initial encounter; Y93.89 Activity, other specified; Y92.007 Garden or yard of unspecified non-institutional (private) residence as the place of occurrence of the external cause; Y99.9 Unspecified external cause status; F17.200 Nicotine dependence, unspecified, uncomplicated; Z82.49 Family history of ischemic heart disease and other diseases of the circulatory system; Z88.6 Allergy status to analgesic agent; Z88.8 Allergy status to other drugs, medicaments and biological substances; Z95.810 Presence of automatic (implantable) cardiac defibrillator; E66.9 Obesity, unspecified
CPT/HCPCS: 71101; 80048; 84484; 85025; 93005; 94640; 99285; A4216

== ENCOUNTER 2020-02-15 11:53 | Emergency (ER) | payer MEDICARE, MEDICAID, SELFPAY ==
[2020-02-15 11:56] VITALS: BP 119/75; PULSE 89; RESP 18; TEMP 36.7; O2SAT 96; BMI 31.6
--- NOTE | 2020-02-15 12:30 | ED.VISSUMM ---
- ER Visit Summary Date of Service: 02/15/20 Chief Complaint: Left rib pain History of Present Illness: The patient is a 69 M who presents with left rib pain that has been getting worse over the past 2 days. Patient states that he fell and landed on his left chest 2 days ago. Patient states the pain is sharp. Patient states pain is worse with deep breathing. Patient does admit to a cough but denies any sputum production. Patient states he has a history of COPD. Patient states he feels like he broke his ribs. Patient is concerned that there is a broken rib puncturing his lung. Physical Examination: Vital signs are stable. Patient is afebrile. Patient is in no acute distress. Oral mucosa is pink and moist. Neck is supple. Trachea is midline. There is no JVD. Heart was regular rate and rhythm. Lungs show expiratory wheezing bilaterally. There is good respiratory effort noted. Abdomen is soft. Bowel sounds are normal. There is no tenderness. Cranial nerves II through XII are intact. There are no focal motor or sensory deficits noted. Extremities are intact. There is no calf tenderness or edema. Test Results: X-rays of the left ribs were obtained. The rib fractures from 02/10/2020 of the left fourth and fifth ribs were unchanged. There is no pneumothorax. These were interpreted by the radiologist and reviewed by myself. Emergency Department Course and Treatment: Patient was given injection of morphine here. Patient was given a DuoNeb aerosol here. Patient was feeling better on reevaluation. Patient was instructed to continue his inhaler as previously prescribed. Patient was instructed to continue his Percocet as prescribed. Patient was instructed to take 10-15 deep breaths every hour to prevent atelectasis and pneumonia. Patient was instructed to follow-up with his primary care physician in 5 to 7 days. Patient understood and was agreeable with the plan. All questions were answered. Disposition: Discharge home Impression: Left fourth and fifth rib fractures This note was generated with [employer] dictation software. It may contain incorrect words, spelling, and punctuation that were not noted in review of the chart prior to signing ED Disposition - Plan for ED Patient: Disposition: Home or Assisted Living Diagnosis: Fracture of rib of left side Instructions: ED Rib Fx Referrals: Juan De La Vega III, MD [Primary Care Provider] - 5-7 Days
--- NOTE | 2020-02-15 12:35 | RAD_ITS ---
STUDY: X-RAY - UNILATERAL RIBS ( LEFT ) WITH CHEST REASON FOR EXAM: Male, 69 years old. pt states broke left upper ribs 5 days ago was sleep walking and ran into wall, constant pain in left upper ribs increases with breathing and movement. Pt has pacemaker TECHNIQUE - RIBS: 4 view(s) of the ribs. TECHNIQUE - CHEST: Single PA view of the chest. COMPARISON: 02/10/2020 FINDINGS - RIBS: Persistent cortical irregularity noted in the anterior aspect of the left fourth and fifth ribs. No significant healing has occurred since the previous study. FINDINGS - CHEST: Satisfactory appearance of a left subclavian pacemaker The lungs are clear and expanded. There is no demonstrated pleural abnormality. Sternal cerclage wires and vascular clips are present from a prior sternotomy and coronary artery bypass graft procedure (CABG). Normal mediastinum and serjio. Normal visualized pulmonary arteries. Normal visualized aortic arch and descending thoracic aorta. Normal visualized thoracic spine. Normal visualized ribs, clavicles, and shoulders. There is no demonstrated abnormality of the visualized soft tissue structures of the upper abdomen. RAD/Ribs Uni Min 3V w/PA Chest IMPRESSION: RIBS: No significant change in the appearance of previously noted anterior left fourth and fifth rib fractures CHEST: No acute pulmonary process Electronically Signed: Nixon Banks MD at 13:21 EDT , Service support ,
[2020-02-15] MEDS: Ipratropium/Albuterol Sulfate 3 ML AMPUL.NEB INHALATION (12:38)
[2020-02-15 12:39] VITALS: PULSE 85; RESP 20
[2020-02-15] MEDS: Morphine 4 MG/ML Syringe IM (13:25)
[2020-02-15 14:26] VITALS: BP 117/79; PULSE 81; RESP 18; O2SAT 99
== END 2020-02-15 14:27 | disposition home or self-care (01) ==
PROVIDERS: Emergency Provider Emergency Medicine; PCP Family Medicine
DX: S22.42XA Multiple fractures of ribs, left side, initial encounter for closed fracture (principal); W22.01XA Walked into wall, initial encounter; J44.9 Chronic obstructive pulmonary disease, unspecified; Z95.0 Presence of cardiac pacemaker; I25.10 Atherosclerotic heart disease of native coronary artery without angina pectoris; Z95.1 Presence of aortocoronary bypass graft; Z72.0 Tobacco use
CPT/HCPCS: 71101; 94640; 96372; 99282

== ENCOUNTER 2020-02-24 06:11 | Emergency (ER) | payer MEDICARE, MEDICAID, SELFPAY ==
[2020-02-24 06:12] VITALS: BP 100/77; PULSE 94; RESP 16; TEMP 36.8; O2SAT 94; BMI 31.8
--- NOTE | 2020-02-24 06:15 | ED.RN ---
RN CALLED FOR EKG, PULLED OLD EKGS FOR
[2020-02-24 06:24] VITALS: O2SAT 95
--- NOTE | 2020-02-24 06:24 | RAD_ITS ---
HISTORY: CHEST PAIN X 1 WEEK. HX OF BROKEN RIBS ADDITIONAL HISTORY: None provided. EXAMINATION/TECHNIQUE: XR Chest 1 View AP/PA Number of images including paperwork: 1 COMPARISON: 02/15/2020 FINDINGS: LUNGS AND PLEURA: No consolidation, mass or pleural effusion. CARDIAC [place]: Stable. MEDIASTINUM AND [place]: Stable. UPPER ABDOMEN: Unremarkable. SKELETON AND SOFT TISSUES: No acute findings. Degenerative changes. OTHER DEVICES AND HARDWARE: Pacemaker with left-sided generator. RAD/Chest 1 View (Portable) IMPRESSION: No acute cardiopulmonary abnormality. at 0723 Reported and signed by: Ama Small MD Electronically Signed: Ama Small MD at 7:23 EDT Tel , Service support ,
--- NOTE | 2020-02-24 06:24 | EKG12_ITS ---
Test Reason : CP Blood Pressure : / mmHG Vent. Rate : 091 BPM Atrial Rate : 091 BPM P-R Int : 146 ms QRS Dur : 116 ms QT Int : 400 ms P-R-T Axes : 055 -17 142 degrees QTc Int : 492 ms Normal sinus rhythm Incomplete left bundle branch block T wave abnormality, consider lateral ischemia Prolonged QT Abnormal ECG Confirmed by SHAVONNE LUNDBERG, LISA ([id number]), tape editor COREY BRYANT ([id number]) on 02/28/2020 9:26:27 AM Referred By: PETE Confirmed By:LISA MARVIN MD
[2020-02-24] MEDS: Ondansetron 4 MG/2 ML Vial IV (06:31)
[2020-02-24] MEDS: Morphine 4 MG/ML Syringe IV ×2 (06:32→07:42)
[2020-02-24] MEDS: 0.9% Normal Saline 1,000 ML 150 ML IV (06:32)
[2020-02-24 06:34] LABS: Absolute Lymphocyte Count 1.38 X10^3/uL (0.83-4.51); Basophil# 0.03 X10^3/uL; Basophil% 0.5 % (0-1); Eosinophil# 0.11 X10^3/uL; Eosinophils% 1.8 % (0-5); Hematocrit 46.1 % (40-54); Hemoglobin 15.4 g/dL (13.0-16.5); Lymphocyte # 1.38 X10^3/ul (4.0); Lymphocyte % 22.6 % (19-41); Mean Corp Hgb Conc 33.4 g/dL (32-36); Mean Corpuscular Volume 92.8 fL (80-94); Mean Platelet Vol. 9.7 fl (6.2-12.0); Monocyte# 0.55 X10^3/uL; NRBC Flagged by Analyzer 0 % (0-5); Neutrophil # 4.02 X10^3/uL (2.7-7.7); Neutrophil % 65.8 % (47-70); Platelet Count 189 K/mm3 (150-450); RBC Distribution Width CV 13.8 % (11.6-14.6); RBC Distribution Width SD 46.4 fl (35.1-43.9); Red Blood Count 4.97 M/mm3 (4.6-6.2); White Blood Count 6.1 K/mm3 (4.4-11.0)
[2020-02-24 06:48] LABS: D-Dimer Quantitative (DVT/PE) 1.02 FEU/ug/m (0.27-0.49)
[2020-02-24 06:49] LABS: Anion Gap 8 (5-15); BUN 38 mg/dL (7-18); BUN/Creat Ratio 20.7 RATIO (10-20); Calcium,Total 8.6 mg/dL (8.5-10.1); Chloride 106 mmol/L (98-107); Creatinine, Serum 1.84 mg/dL (0.70-1.30); EST Glomerular Filtration Rate 39 mL/min (>60); Est Glom Filt Rate - Afr Amer 47 mL/min (>60); Estimated Creatinine Clearance 37.17 ml/min; Glucose 114 mg/dL (74-106); Potassium 3.3 mmol/L (3.5-5.1); Sodium Level 139 mmol/L (136-145)
--- NOTE | 2020-02-24 06:49 | RAD_ITS ---
STUDY: X-RAY - LEFT SHOULDER REASON FOR EXAM: Fall 1 week ago. TECHNIQUE: 2 view(s) of the shoulder. COMPARISON: None. FINDINGS: Normal glenohumeral articulation. There is mild acromioclavicular arthrosis. There is a low-lying acromion. Normal humeral head and visualized proximal humerus. There is a small focus of calcific tendinitis as on the prior study. Normal visualized pulmonary apex. RAD/Shoulder min 2 Views IMPRESSION: Calcific tendinitis. Mild acromioclavicular arthrosis. Electronically Signed: Dany Hayes MD at 7:56 EDT Tel , Service support ,
--- NOTE | 2020-02-24 06:52 | CT_ITS ---
STUDY: CTA CHEST REASON FOR EXAM: Male, 69 years old. CP LAST NIGHT, BACK/LT ARM PAIN RADIATION DOSAGE (If Supplied By Facility): CTDIvol = ( 13.29 ) mGy, DLP = ( 499.54 ) mGycm TECHNIQUE: The examination was performed with the intravenous administration of IV 100mL Isovue-370. Post-processing of the angiographic images was performed, with multiplanar reformation and 3D reconstruction. Individualized dose optimization techniques were used for this CT. COMPARISON: Comparison is made with prior examination dated 06/29/2019 and 10/19/2019. FINDINGS: Normal enhancement of the main pulmonary artery and right and left pulmonary arteries. Normal enhancement of the bilateral peripheral pulmonary arteries. There is no demonstrated pulmonary embolism. Normal thoracic aorta and visualized great vessels. There is no demonstrated aortic dissection. Sternal cerclage wires and vascular clips are present from a prior sternotomy and coronary artery bypass graft procedure (CABG). There are calcifications of the coronary arteries. Normal mediastinum. Normal hilar regions. Normal visualized trachea and bronchi. The lungs are well expanded. Stable mild degree of emphysematous changes worse in the upper lobes with the small bulla formation. No focal consolidation is seen. Increased markings at the lung bases worse on the left side suggestive of scarring. Normal pleura. Normal chest wall structures. There are degenerative changes of thoracic spine. Normal visualized upper abdomen. CT/CTA Chest W/WO Contrast IMPRESSION: No evidence of pulmonary embolism. Emphysematous changes with the bullous formation in the upper lobes and bibasilar scarring. Electronically Signed: Arcenio Leary, at 8:13 EDT , Service support ,
--- NOTE | 2020-02-24 06:53 | ED.DCSUM_ITS ---
- ER Visit Summary Date of Service: 02/24/20 Chief Complaint: [Chest pain] History of Present Illness: The patient is a 69 M [presents the emergency department chest discomfort that has worsened since yesterday. Patient states that he fell a couple of weeks ago and broke some ribs in his left anterior ches t. Patient had been taking Percocet but ran out yesterday. He denies any new injury. Patient also complaining of pain in his left shoulder that is worse with movement. He complains of numbness and tingling in his fingers except for the small finger. Patient states that he has had chronic issues with his neck and always has neck pain. Patient denies recent travel or surgery. He denies fever or recent illness. Patient has history of COPD and has a chronic cough but it is no different than usual. He denies any exposures to COVID-19 patients. Patient with history of type 2 diabetes, high cholesterol, V. tach, ischemic cardiomyopathy, and COPD. Patient has a implantable defibrillator. Patient has cardiac stents.] Physical Examination: [HEENT-PERRLA, EOMI. Cranial nerves II through XII grossly intact. TMs clear. Mucous membranes moist. No adenopathy. Cardiovascular-regular rate and rhythm without murmur or ectopy Lungs-clear to auscultation, chest wall stable without crepitus or subcu emphysema. Patient has tenderness palpation over left anterior chest wall that reproduces his pain. Abdomen-normoactive bowel sounds, soft, nontender, no rebound or rigidity, no peritoneal signs. Extremities-intact ?4, normal range of motion, normal pulses, atraumatic. Patient has tenderness palpation diffusely about the glenohumeral joint of the left shoulder. Patient has pain with range of motion of the glenohumeral joint. He is neurovascular intact distally. There is no obvious deformity or sulcus sign noted.] Test Results: [EKG obtained on arrival showed a sinus rhythm with a ventricular rate of [address] changes. When compared with prior EKG from February 092019 no new changes noted. CBC with differential obtained showed a white of 6.1, hemoglobin 15, hematocrit 46, platelets 189. Chemistries unremarkable. Troponin less than 0.017.] Chest x-ray showed nothing acute. CTA of the chest pending results. Patient's x-ray of the left shoulder showed nothing acute. Emergency Department Course and Treatment: [He was treated with morphine and Zofran.] Treatment Plan: [Patient advised to follow-up with primary care physician within next 3 to 5 days. I feel his chest pain is noncardiac and is musculoskeletal. Patient's had chronic neck pain and paresthesias in his left arm. He is advised to follow-up with his primary care physician regarding these as he may need further imaging such as possibly MRI to evaluate further. Given a prescription for Percocet for pain.] Disposition: [Discharged home in stable condition] Impression: [Left chest wall pain secondary to rib fractures Left shoulder pain Paresthesias left arm.] This note was generated with [employer] dictation software. It may contain incorrect words, spelling, and punctuation that were not noted in review of the chart pr ior to signing <AlokshmuelJeana - Last Filed: 02/24/20 07:30> - ER Visit Summary Clinical Impression(s) from Imaging Studies Chest X-Ray 02/24/20 06:24 IMPRESSION: No acute cardiopulmonary abnormality. at 0723 Reported and signed by: Ama Small MD Electronically Signed: Ama Small MD at 7:23 EDT Tel , Service support , Shoulder X-Ray 02/24/20 06:49 IMPRESSION: Calcific tendinitis. Mild acromioclavicular arthrosis. Electronically Signed: Dany Hayes MD at 7:56 EDT Tel , Service support , Chest CTA 02/24/20 06:52 IMPRESSION: No evidence of pulmonary embolism. Emphysematous changes with the bullous formation in the upper lobes and bibasilar scarring. Electronically Signed: Arcenio Leary, at 8:13 EDT , Service support , This note was generated with [employer] dictation software. It may contain incorrect words, spelling, and punctuation that were not noted in review of the chart prior to signing <Gentry King - Last Filed: 02/24/20 08:16> ED Disposition <Jeana Miles - Last Filed: 02/24/20 07:30> <Gentry King - Last Filed: 02/24/20 08:16> - Plan for ED Patient: Instructions: ED Rib Fx, ED Shoulder Pain Uncertain Cause Prescriptions: Oxycodone HCl/Acetaminophen [Percocet 5/325] 1 tab PO Q6H PRN PRN 3 Days #12 tab PRN Reason: Pain Prescription Printed Referrals: Juan De La Vega III, MD [Primary Care Provider] - 3-5 Days
--- NOTE | 2020-02-24 07:31 | ED.DEP ---
ED Disposition - Plan for ED Patient: Instructions: ED Rib Fx, ED Shoulder Pain Uncertain Cause Prescriptions: Oxycodone HCl/Acetaminophen [Percocet 5/325] 1 tab PO Q6H PRN PRN 3 Days #12 tab PRN Reason: Pain Prescription Printed Referrals: Juan De La Vega III, MD [Primary Care Provider] - 3-5 Days
[2020-02-24 07:45] VITALS: BP 98/66; PULSE 88; RESP 15; O2SAT 92
[2020-02-24 08:30] VITALS: BP 110/71; PULSE 80; RESP 20; O2SAT 94
--- NOTE | 2020-02-24 08:31 | ED.RN ---
REVIEWED D/C INSTRUCTIONS, FOLLOW UP CARE, PRESCRIPTION, AND S/S THAT WOULD WARRANT A RETURN TO THE ED WITH PT. PT VERBALIZED AN UNDERSTANDING AND DENIES FURTHER QUESTIONS FOR THIS RN. PT SKIN P/W/D, RESP EVEN AND UNLABORED, PT A&O X 3, NO DISTRESS NOTED. PT AMBULATED OUT OF ED, GAIT STEADY.
== END 2020-02-24 08:32 | disposition home or self-care (01) ==
LOC: ED 06:59
PROVIDERS: Emergency Provider Emergency Medicine; PCP Family Medicine
DX: S22.42XA Multiple fractures of ribs, left side, initial encounter for closed fracture (principal); X58.XXXA Exposure to other specified factors, initial encounter; Y93.89 Activity, other specified; Y92.9 Unspecified place or not applicable; Y99.9 Unspecified external cause status; M25.512 Pain in left shoulder; R20.2 Paresthesia of skin; E11.9 Type 2 diabetes mellitus without complications; E78.00 Pure hypercholesterolemia, unspecified; I25.5 Ischemic cardiomyopathy; J44.9 Chronic obstructive pulmonary disease, unspecified; Z95.810 Presence of automatic (implantable) cardiac defibrillator; Z95.5 Presence of coronary angioplasty implant and graft; R05 Cough
CPT/HCPCS: 71045; 71275; 73030; 80048; 84484; 85025; 85379; 93005; 96361; 96374; 96375; 96376; 99285; J7030; Q9967; A4216; J2405

== ENCOUNTER 2020-03-11 01:11 | Emergency (ER) | payer MEDICARE, MEDICAID, SELFPAY ==
[2020-02-28 10:00] VITALS: BMI 31.1
[2020-03-11 01:12] VITALS: BP 155/126; PULSE 109; RESP 24; TEMP 36.8; O2SAT 92; BMI 34.2
--- NOTE | 2020-03-11 01:34 | EKG12_ITS ---
Test Reason : CP Blood Pressure : / mmHG Vent. Rate : 107 BPM Atrial Rate : 107 BPM P-R Int : 146 ms QRS Dur : 116 ms QT Int : 380 ms P-R-T Axes : 063 -15 108 degrees QTc Int : 507 ms Sinus tachycardia Incomplete left bundle branch block T wave abnormality, consider lateral ischemia Abnormal ECG Confirmed by SHAVONNE LUNDBERG, LISA ([id number]), editorial assistant HARINI STONE ([id number]) on 03/12/2020 2:42:06 PM Referred By: HOANG Confirmed By:LISA MARVIN MD
--- NOTE | 2020-03-11 01:35 | ED.VISSUMM ---
- ER Visit Summary Date of Service: 03/11/20 Chief Complaint: Chest pain History of Present Illness: The patient is a 70 M who presents with chest pain that began today approximately 7-1/2 hours prior to arrival. Patient describes the pain is sharp and dull. Patient states the pain is over the right chest. Patient states it is worse with deep breathing and movement. Patient states the pain is also worse with coughing. Patient states nothing seems to help with it. Patient admits to a cough. Patient admits to some sputum production with this but does not know the color of it. Patient denies any fevers or chills. Patient denies any nausea or vomiting. Patient denies any diaphoresis. Patient denies any heartburn or reflux. Patient denies any palpitations or lightheadedness. Patient was given 4 baby aspirin and 1 sublingual nitroglycerin by EMS. Patient states the nitroglycerin did not change his pain. Physical Examination: Vital signs are stable except for an elevated blood pressure of 155/126 and a mild tachycardia of 104 and a mild tachypnea of 24. Patient is afebrile. Patient is in no acute distress. Oral mucosa is pink and moist. Neck is supple. Trachea is midline. There is no JVD. Heart was regular rate and rhythm. Lungs showed some rhonchi in the right base. There is adequate respiratory effort noted. Abdomen is soft. Bowel sounds are normal. There is no tenderness. Cranial nerves II through XII are intact. There are no focal motor or sensory deficits noted. Test Results: EKG shows a sinus tachycardia with a rate of 107. There is an incomplete left bundle branch block. There are nonspecific ST-T wave changes in the lateral leads. These are all unchanged compared to previous EKG dated 02/24/2020. CBC was normal. Comprehensive metabolic profile showed a mild hypokalemia of 3.1. BUN and creatinine were slightly elevated at 22 and 1.56 respectively however, these were similar to prior results. Troponin was normal at 0.044. BNP was slightly elevated at 286.8. Portable chest x-ray was obtained. There are no acute infiltrates. There are mild fibrotic changes. This was interpreted by the radiologist and reviewed by myself. A delta troponin was obtained and was 0.042. Emergency Department Course and Treatment: Patient was given a dose of morphine here. Patient was given a dose of oral potassium here. Patient was also given a dose of Zofran for his nausea. Patient was given repeat dose of morphine. Patient was feeling better on reevaluation. Since his pain is primarily on the right side of his chest, it is different than previous episodes of angina, is worse with movement, and 2 troponins were normal, I do not feel it is cardiac in nature. I feel patient is safe to be discharged home. Patient was instructed to follow-up with his primary care physician and mule spinner in 3 to 5 days. Patient understood and was agreeable with the plan. All questions were answered. Disposition: Discharge home Impression: 1. Chest pain This note was generated with [employer] dictation software. It may contain incorrect words, spelling, and punctuation that were not noted in review of the chart prior to signing ED Disposition - Plan for ED Patient: Disposition: Home or Assisted Living Diagnosis: Chest pain Instructions: ED Chest Pain Atypical Unkn Cause Referrals: Juan De La Vega III, MD [Primary Care Provider] - 3-5 Days Gordy Inman MD [STAFF PHYSICIAN] - 3-5 Days
[2020-03-11 01:41] LABS: Absolute Neutrophil Count 7.6 X10^3/uL (2.0-7.7); Basophil# 0.04 X10^3/uL; Basophil% 0.4 % (0-1); Eosinophil# 0.02 X10^3/uL; Eosinophils% 0.2 % (0-5); Hematocrit 44.6 % (40-54); Hemoglobin 15.1 g/dL (13.0-16.5); Lymphocyte % 14.2 % (19-41); Mean Corp Hgb Conc 33.9 g/dL (32-36); Mean Corpuscular Hgb 30.8 pg (27.0-32.0); Mean Platelet Vol. 9.5 fl (6.2-12.0); Monocyte# 0.78 X10^3/uL; Monocyte% 7.9 % (0-10); NRBC Flagged by Analyzer 0 % (0-5); Neutrophil # 7.62 X10^3/uL (2.7-7.7); Platelet Count 230 K/mm3 (150-450); RBC Distribution Width CV 13.7 % (11.6-14.6); RBC Distribution Width SD 46.1 fl (35.1-43.9); White Blood Count 9.9 K/mm3 (4.4-11.0)
--- NOTE | 2020-03-11 01:45 | RAD_ITS ---
STUDY: X-RAY CHEST REASON FOR EXAM: Male, 70 years old. COUGH AND CHEST PAIN, TIGHTNESS X 8 HOURS TECHNIQUE: Frontal view COMPARISON: None. FINDINGS: Pacemaker leads are in proper position. Lungs are expanded. There are mild fibrotic changes. There are NO acute infiltrates. There is a tiny calcified granuloma at the RIGHT lung base. There is no demonstrated pleural abnormality. Normal size heart. There has been open heart surgery. Normal visualized pulmonary arteries. Normal visualized aortic arch and descending thoracic aorta. Normal visualized thoracic spine. Normal visualized ribs, clavicles, and shoulders. There is no demonstrated abnormality of the visualized soft tissue structures of the upper abdomen. RAD/Chest 1 View (Portable) IMPRESSION: Pacemaker leads are in proper position. Lungs are expanded. There are mild fibrotic changes. There are NO acute infiltrates. There is a tiny calcified granuloma at the RIGHT lung base. There is no demonstrated pleural abnormality. Normal size heart. Electronically Signed: Serge Motley MD at 2:07 EDT , Service support ,
[2020-03-11 01:58] LABS: ALB/GLOB Ratio 1.1 RATIO (0.9-2.4); AST(SGOT) 35 U/L (15-37); Alanine Aminotransfer ALT/SGPT 38 U/L (16-61); Albumin, Serum 3.8 g/dL (3.2-5.0); Alkaline Phosphatase 84 U/L (45-117); Anion Gap 10 (5-15); BUN 22 mg/dL (7-18); BUN/Creat Ratio 14.1 RATIO (10-20); Calcium,Total 8.5 mg/dL (8.5-10.1); Chloride 101 mmol/L (98-107); Creatinine, Serum 1.56 mg/dL (0.70-1.30); EST Glomerular Filtration Rate 47 mL/min (>60); Est Glom Filt Rate - Afr Amer 57 mL/min (>60); Estimated Creatinine Clearance 43.24 ml/min; Globulin 3.4 g/dL (2.2-4.2); Glucose 113 mg/dL (74-106); Potassium 3.1 mmol/L (3.5-5.1); Protein, Total 7.2 g/dL (6.4-8.2); Sodium Level 138 mmol/L (136-145)
[2020-03-11 02:03] VITALS: BP 130/74; PULSE 96; RESP 12; O2SAT 95
[2020-03-11 02:03] LABS: BNP,B-Type NATRIURETIC PEPTIDE 286.8 pg/mL (0-100)
[2020-03-11] MEDS: Morphine 4 MG/ML Syringe IV ×2 (02:03→03:44)
[2020-03-11] MEDS: Ondansetron 4 MG/2 ML Vial IV (02:47)
[2020-03-11 02:51] VITALS: BP 145/85; PULSE 95; RESP 18; O2SAT 95
[2020-03-11 03:47] VITALS: BP 101/83; PULSE 98; RESP 21; O2SAT 97
[2020-03-11 06:26] VITALS: BP 134/86; PULSE 102; RESP 18; O2SAT 96
== END 2020-03-11 06:33 | disposition home or self-care (01) ==
PROVIDERS: Emergency Provider Emergency Medicine; PCP Family Medicine
DX: R07.9 Chest pain, unspecified (principal); I44.7 Left bundle-branch block, unspecified; R05 Cough; R00.0 Tachycardia, unspecified; R06.82 Tachypnea, not elsewhere classified
CPT/HCPCS: 71045; 80053; 83880; 84484; 85025; 93005; 96374; 96375; 96376; 99285; A4216; J2405

== ENCOUNTER → 2020-03-15 10:46 | Outpatient (CLI) | payer MEDICARE, MEDICAID, SELFPAY ==
[2020-01-03 06:51] VITALS: BMI 31.0
[2020-03-14 13:18] VITALS: BMI 31.4
[2020-03-15 11:00] VITALS: PULSE 100; PULSE 101; PULSE 105; PULSE 109; PULSE 112; PULSE 113; PULSE 99; O2SAT 94; O2SAT 96; O2SAT 97
--- NOTE | 2020-03-15 14:01 | PCM.PSN.6M ---
PSN 6 Minute Walk Test - 6 Minute Walk Test 6 Minute Walk Test: 6 Minute Walk Test PSN:6-Minute Walk Test Start: 03/15/20 11:17 Freq: Status: Active Protocol: RESP.6MINW Document 03/15/20 11:00 [facility] (Rec: 03/15/20 11:28 [facility] [id number]) 6 Minute Walk Test Date Performed 03/15/20 Time Performed 11:00 Height 5 ft 9 in Weight: 92.533 kg Weight in Pounds 204.[address]: Dr Pop Assistive device used: Walker Pre-test Oxygen Delivery Method Room Air Pulse Ox (%) 94 Pulse Rate (60-100 beats/min) 99 Dyspnea Rico Scale (0-10) 0.5 Exertion Rico Scale (6-20) 6 1st minute Oxygen Delivery Method Room Air Pulse Ox (%) 97 Pulse Rate (60-100 beats/min) 101 H 2nd minute Oxygen Delivery Method Room Air Pulse Ox (%) 96 Pulse Rate (60-100 beats/min) 112 H 3rd minute Oxygen Delivery Method Room Air Pulse Ox (%) 96 Pulse Rate (60-100 beats/min) 113 H 4th minute Oxygen Delivery Method Room Air Pulse Ox (%) 96 Pulse Rate (60-100 beats/min) 109 H 5th minute Oxygen Delivery Method Room Air Pulse Ox (%) 97 Pulse Rate (60-100 beats/min) 100 6th minute Oxygen Delivery Method Room Air Pulse Ox (%) 96 Pulse Rate (60-100 beats/min) 105 H Dyspnea Rico Scale (0-10) 3 Exertion Rico Scale (6-20) 13 Post-test Oxygen Delivery Method Room Air Pulse Ox (%) 96 Pulse Rate (60-100 beats/min) 99 Full Laps Walked 13 Partial Lap, Number of Tiles Walked 35 Total Distance Walked (ft) 802 - Interpretation Interpretation: The patient was able to ambulate 802 feet over the course of 6 minutes on room air with the assistance of a walker and no breaks. The patient experienced no significant desaturation, but did have a peak heart rate of 113 bpm. These findings are consistent with a cardiovascular limitation exercise tolerance. - Recommendations Recommendations: No supplemental oxygen is indicated at this time.
== END ==
PROVIDERS: PCP Family Medicine; Referring Provider Family Medicine; Visit Provider Family Medicine
DX: J44.9 Chronic obstructive pulmonary disease, unspecified (principal)
CPT/HCPCS: 94618

== ENCOUNTER → 2020-03-26 06:50 | Outpatient (CLI) | payer MEDICARE, MEDICAID, SELFPAY ==
[2020-01-03 06:51] VITALS: BMI 31.0
[2020-03-15 13:04] VITALS: BMI 31.4
--- NOTE | 2020-03-26 10:42 | PFTCOMP_ITS ---
COMPLETE PULMONARY FUNCTION TEST INTERPRETATION Brief HPI: Patient is a 70 year old male, currently under the care of Dr. Pop, who presents to [facility] for complete pulmonary function tests secondary to diagnosis of COPD. Respiratory therapist reports good effort and reproducible results. Interpretation: Forced expiration spirometry shows a moderate large airways obstructive ventilatory defect with an FEV1 of 64% predicted. There is no significant bronchodilator response by strict ATS criteria. Spirograms are of good quality and plateau slowly, indicating slowly emptying areas of the lungs. The respiratory flow volume loop shows decreased expiratory flow rates at all lung volumes consistent with airway obstruction. Lung volumes by body plethysmography show a normal total lung capacity at 6.56 L, 109% predicted. All other lung volumes are within normal limits. Diffusion capacity by carbon monoxide is decreased at 68% predicted. The airway resistance is elevated. Compared to previous pulmonary function tests from 08/13/2017, there is been a significant decrease in all spirometric values. Impression: Irreversible moderate large airways obstructive ventilatory defect with a symmetric reduction diffusing capacity, and a pattern consistent with COPD. There has been significant worsening over the last 2 years.
== END ==
PROVIDERS: PCP Family Medicine; Referring Provider Family Medicine; Visit Provider Family Medicine
DX: J44.9 Chronic obstructive pulmonary disease, unspecified (principal)
CPT/HCPCS: 94060; 94726; 94729

== ENCOUNTER → 2020-03-30 17:34 | Outpatient (CLI) | payer MEDICARE, MEDICAID, SELFPAY ==
[2020-03-30 09:42] VITALS: BMI 31.3
== END ==
PROVIDERS: PCP Family Medicine; Referring Provider Nurse Practitioner Acute Care; Visit Provider Nurse Practitioner Acute Care
DX: K30 Functional dyspepsia (principal)
CPT/HCPCS: 87635; C9803; U0003

== ENCOUNTER → 2020-04-04 12:59 | Outpatient (CLI) | payer MEDICARE, MEDICAID, SELFPAY ==
[2020-03-30 09:42] VITALS: BMI 31.3
--- NOTE | 2020-04-04 13:56 | NEURO_ITS ---
NCS and/or EMG Patient Report Ordering Doctor: Juan De La Vega Jr. DATE OF SERVICE: 04/04/20 Joshua Acuna presents for electrodiagnostic testing of the left upper limb. Reports numbness and tingling in the first 4 digits of the left hand. Electrodiagnostic findings: Left median motor nerve demonstrates prolonged dista l latency with normal amplitude and reduced conduction velocity. Normal left ulnar motor response. Prolonged left median F-wave. Prolonged left median sensory latency at the wrist. Prolonged left median palmar latency. On needle EMG, all muscles tested in the left upper limb showed no evidence of denervation with normal motor unit action potentials. Electrodiagnostic assessment: This is an abnormal study in the left upper limb. 1. Electrodiagnostic findings demonstrate left-sided median mononeuropathy. This is consistent with a moderate left carpal tunnel syndrome. If there are any further questions, please do not hesitate to contact me.
== END ==
PROVIDERS: PCP Family Medicine; Referring Provider Family Medicine; Visit Provider Family Medicine
DX: M54.12 Radiculopathy, cervical region (principal)
CPT/HCPCS: 95886; 95910

== ENCOUNTER 2020-04-21 02:36 | Emergency (ER) | payer MEDICARE, MEDICAID, SELFPAY ==
[2020-03-30 09:42] VITALS: BMI 31.3
[2020-04-21 02:39] VITALS: BP 101/80; PULSE 93; RESP 20; TEMP 36.4; O2SAT 90; O2SAT 92; BMI 32.2
--- NOTE | 2020-04-21 03:02 | CT_ITS ---
HISTORY: FELL DOWN STAIRS, DENIES LOC, HEAD AND NECK PAIN ADDITIONAL HISTORY: None provided. COMPARISON: 12/31/2019 EXAMINATION/TECHNIQUE: CT Head or Brain W/O Contrast Injection. Axial, coronal and sagittal images. Number of images including paperwork: 267. A radiation dose optimization technique was used for this scan. FINDINGS: BRAIN: No acute hemorrhage or mass. No definite acute infarct; MRI more sensitive. White matter hypodensity is nonspecific but most commonly seen with chronic ischemic changes. Generalized atrophy. Left frontal encephalomalacia appears similar. VENTRICULAR SYSTEM: No hydrocephalus. PARANASAL SINUSES AND MASTOIDS: No air-fluid level in the imaged extent. Mild mucosal thickening noted. ORBITS: Unremarkable imaged extent. SKELETON AND SOFT TISSUES: Calvarium intact. ASPECTS score: Not applicable. CT/Brain/Head without Contrast IMPRESSION: No acute intracranial abnormality. Chronic involutional and white matter changes. Individualized dose optimization techniques were used for this CT. at 0415 Reported and signed by: Ama Small MD Electronically Signed: Ama Small MD at 4:15 EDT Tel , Service support ,
--- NOTE | 2020-04-21 03:02 | RAD_ITS ---
HISTORY: FELL DOWN SEVERAL STEPSC/O BILAT HIP PAIN AND PAIN TO ENTIRE SPINE ADDITIONAL HISTORY: None provided. EXAMINATION/TECHNIQUE: XR Pelvis 1 or 2 Views Number of images including paperwork: 1 COMPARISON: 01/01/2019 FINDINGS: BONES: No acute fracture. JOINTS: No subluxation. Degenerative changes of the hips and the visible spine, similar to previous. SOFT TISSUES: No distinct foreign body. Vascular calcifications. RAD/Pelvis 1 or 2 Views IMPRESSION: Degenerative changes without acute osseous abnormality. at 0420 Reported and signed by: Ama Small MD Electronically Signed: Ama Small MD at 4:20 EDT Tel , Service support ,
--- NOTE | 2020-04-21 03:02 | RAD_ITS ---
HISTORY: FELL DOWN SEVERAL STEPSC/O BILAT HIP PAIN AND PAIN TO ENTIRE SPINE ADDITIONAL HISTORY: None provided. EXAMINATION/TECHNIQUE: XR Spine Thoracic 2 Views Number of images including paperwork: 4 COMPARISON: 10/12/2015 FINDINGS: VERTEBRAE: No acute fracture. VERTEBRAL ALIGNMENT: No traumatic subluxation. DISKS AND JOINTS: Multilevel discogenic degenerative changes, grossly similar to previous. SOFT TISSUES: Unremarkable paraspinous soft tissues. Sternal wires and cardiac device leads. RAD/Thoracic Spine 2 Views IMPRESSION: No acute osseous abnormality. Thoracic spondylosis. at 0423 Reported and signed by: Ama Small MD Electronically Signed: Ama Small MD at 4:23 EDT Tel , Service support ,
--- NOTE | 2020-04-21 03:02 | CT_ITS ---
HISTORY: FELL DOWN STAIRS, DENIES LOC,HEAD AND NECK PAIN ADDITIONAL HISTORY: None provided COMPARISON: 02/25/2019 TECHNIQUE: Noncontrast CT images of the cervical spine. 2D images were reviewed to aid in assessment of the cervical spine. A radiation dose optimization technique was used for this scan. Number of images including paperwork: 389 FINDINGS: BONES: No acute fracture. No suspicious bone lesion. VERTEBRAL ALIGNMENT: No traumatic subluxation. Loss of normal cervical lordosis. DISCS AND JOINTS: Severe discogenic degenerative changes at C4-5. Mild to moderate discogenic degenerative changes elsewhere. Facet arthropathy. SPINAL CANAL AND FORAMINA: No critical canal stenosis. SOFT TISSUES: No prevertebral soft tissue swelling. No pathologic-appearing cervical adenopathy. Vascular calcifications. LUNG APICES: Unremarkable. PARANASAL SINUSES: Unremarkable imaged portions if any. CT/Spine Cervical without Contras IMPRESSION: 1. No acute osseous abnormality. 2. Loss of normal cervical lordosis may be related to positioning or muscle spasm. 3. Cervical spondylosis. Individualized dose optimization techniques were used for this CT. at 0413 Reported and signed by: Ama Small MD Electronically Signed: Ama Smlal MD at 4:13 EDT Tel , Service support ,
--- NOTE | 2020-04-21 03:02 | RAD_ITS ---
HISTORY: FELL DOWN SEVERAL STEPSC/O BILAT HIP PAIN AND PAIN TO ENTIRE SPINE ADDITIONAL HISTORY: None provided. EXAMINATION/TECHNIQUE: XR Spine Lumbar 2 or 3 Views Number of images including paperwork: 3 COMPARISON: 01/01/2019, 11/03/2018 FINDINGS: VERTEBRAE: No acute fracture. VERTEBRAL ALIGNMENT: No traumatic subluxation. DISKS AND JOINTS: Moderate to severe multilevel discogenic degenerative changes with some relative sparing at L4-5. Facet arthropathy. SOFT TISSUES: Unremarkable paraspinous soft tissues. Vascular calcifications. RAD/Lumbar Spine 2 or 3 Views IMPRESSION: No acute osseous abnormality. Lumbar spondylosis. at 0418 Reported and signed by: Ama Small MD Electronically Signed: Ama Small MD at 4:18 EDT Tel , Service support ,
--- NOTE | 2020-04-21 03:04 | ED.VIS.FALL ---
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 Negative for: Parasthesias, Weakness, Loss of function, Loss of consciousness, Amnesia Narrative: Patient states he was in socks, middle of the night, slipped and accidentally fell down an entire flight of steps in his home. Hit his head but no loss of consciousness. He has a headache and some nausea. No focal neurologic symptoms or changes in his vision. He is on no anticoagulants but is on antiplatelets. No injury to his arms or legs, he states he has pain in his buttocks, his low back, mid back, but his back does not hurt as bad as his neck. Denies any chest pain, abdominal pain, he denies any discomfort when he takes a deep inspiration. - Past Medical History (1) Benign essential hypertension Status: Chronic (2) CAD (coronary artery disease) Status: Chronic (3) COPD (chronic obstructive pulmonary disease) Status: Chronic Comment: FEV1 64% of predicted (4) Chronic back pain Status: Chronic (5) Chronic renal failure, stage 3 (moderate) Status: Chronic (6) Chronic systolic (congestive) heart failure Status: Chronic (7) Degenerative cervical disc Status: Chronic (8) Gastroesophageal reflux disease Status: Chronic (9) Hyperlipidemia Status: Chronic (10) Type 2 diabetes mellitus Status: Chronic (11) ARIADNA (obstructive sleep apnea) Status: Suspected Past Medical History - Allergies and Home Meds Allergies/Adverse Reactions: Allergies chlorpromazine HCl [From Thorazine] Allergy (Severe, Verified 04/21/20 02:37) Hives PER PATIENT tramadol HCl [From Ultram] Allergy (Severe, Verified 04/21/20 02:37) Hives PER PATIENT codeine Allergy (Intermediate, Verified 04/21/20 02:37) Hives atorvastatin Adverse Reaction (Intermediate, Verified 04/21/20 02:37) Other LEG PAIN/CRAMPS cyclobenzaprine [From Flexeril] Adverse Reaction (Verified 04/21/20 02:37) Upset Stomach metformin Adverse Reaction (Verified 04/21/20 02:37) Upset Stomach naproxen Adverse Reaction (Verified 04/21/20 02:37) Upset Stomach promethazine [From Phenergan] Adverse Reaction (Verified 04/21/20 02:37) Other CONFUSION Primary Care Physician: Juan De La Vega III, MD [Primary Care Provider] - As Needed Surgical History: angioplasty - stents x 10, coronary bypass surgery, - - AICD placement, back surgery x 2, hernia repair, PCI. Lives: Alone Smoking Status: Current every day smoker - Family History Paternal Family History: Family History (Last Reviewed 03/30/20 @ 09:58 by Marlene Robles FISHING ACCESSORIES MAKER, FISHING ACCESSORIES MAKER-C) Brother CAD (coronary artery disease) Myocardial infarction Sudden cardiac Mother Cancer Hypertension Father Cancer COPD (chronic obstructive pulmonary disease) Family History: Reports: Cancer, Heart Disease Maternal Family History: Family History (Last Reviewed 03/30/20 @ 09:58 by Marlene Robles FISHING ACCESSORIES MAKER, FISHING ACCESSORIES MAKER-C) Brother CAD (coronary artery disease) Myocardial infarction Sudden cardiac Mother Cancer Hypertension Father Cancer COPD (chronic obstructive pulmonary disease) Family History: Reports: - - Patient notes a paternal family history of chronic lung disease, lung cancer with history of tobacco use. Review of Systems General: Denies: Chills, Fever, Sweats Eyes: Denies: Visual changes - bilaterally, Diplopia ENT: Denies: Rhinorrhea, Sore throat Cardiovascular: Denies: Chest pain, Palpitations Respiratory: Denies: Dyspnea, Cough, Dyspnea on exertion Gastrointestinal: Reports: Nausea. Denies: Abdominal pain, Vomiting, Diarrhea, Melena, Hematochezia Genitourinary: Denies: Dysuria, Hematuria, Frequency Musculoskeletal: Reports: Neck pain, Back pain. Denies: Extremity Pain Skin: Denies: Rash, Wounds Neurological: Reports: Headache. Denies: Weakness, Numbness Physical Exam Vital Signs/Narrative: Vital Signs Temp Pulse Resp BP Pulse Ox 04/21/20 02:39 97.5 F L 93 20 H 101/80 92 Inital Vital Signs reviewed: Yes General: Well nourished, Well developed, - - Keenly alert, no distress. Brought by paramedics on backboard, placed in c-collar. Head: Normocephalic, Atraumatic Eyes: Perrl, EOMI ENT: TM's clear, No hemotympanum or drainage, No trauma Neck: Spinal Tenderness - Mid cervical spine only. No step-off or obvious signs of trauma. Cardiovascular: Regular rate, Regular rhythm, No murmurs Respiratory: No distress, CTA bilaterally - With equal breath sounds present bilaterally and symmetric, Chest nontender Abdomen: Soft, Nontender, Nondistended, Normal bowel sounds Back: Spinal Tenderness - Mild upper lumbar, mid thoracic. No obvious signs of trauma, no step-offs. Pelvis stable AP compression and nontender. Extremeties: Tenderness in buttocks, bilateral pelvic brim's laterally. No crepitance. He has pain in both of these areas with external rotation at the hip, but there is no groin pain, painless internal rotation, and there is no shortening or asymmetry in leg length. Full range of motion throughout all other joints of the lower extremities, all joints of the upper extremities, and neurovascularly intact distally throughout all 4 extremities. Skin: Normal color, No rash, No Trauma Neurological: Alert, Oriented x3, Cranial nerves II-XII grossly intact, Normal Strength, Normal Sensation, - - GCS 15 Psychological: Normal affect, Normal Mood Diagnostic/Tx/Re-eval Clinical Impression(s) from Imaging Studies Brain CT 04/21/20 03:02 IMPRESSION: No acute intracranial abnormality. Chronic involutional and white matter changes. Individualized dose optimization techniques were used for this CT. at 9044 Reported and signed by: Ama Small MD Electronically Signed: Ama Small MD at 4:15 EDT Tel , Service support , Cervical Spine CT 04/21/20 03:02 IMPRESSION: 1. No acute osseous abnormality. 2. Loss of normal cervical lordosis may be related to positioning or muscle spasm. 3. Cervical spondylosis. Individualized dose optimization techniques were used for this CT. at 3022 Reported and signed by: Ama Small MD Electronically Signed: Ama Small MD at 4:13 EDT Tel , Service support , Lumbar Spine X-Ray 04/21/20 03:02 IMPRESSION: No acute osseous abnormality. Lumbar spondylosis. at 0418 Reported and signed by: Ama Small MD Electronically Signed: Ama Small MD at 4:18 EDT Tel , Service support , Pelvis X-Ray 04/21/20 03:02 IMPRESSION: Degenerative changes without acute osseous abnormality. at 0420 Reported and signed by: Ama Small MD Electronically Signed: Ama Small MD at 4:20 EDT Tel , Service support , Thoracic Spine X-Ray 04/21/20 03:02 IMPRESSION: No acute osseous abnormality. Thoracic spondylosis. at 0423 Reported and signed by: Ama Small MD Electronically Signed: Ama Small MD at 4:23 EDT Tel , Service support , - Medical Decision Making Patient was given morphine for his pain which helped. After imaging returned negative, I removed the c-collar, he was able to gently turn his head in all directions with some mild pain and stiffness but no acute neurologic symptoms. He said it felt better. We were able to get him on his feet and he could stand and walk gingerly, and then sit in a chair without difficulty. Pelvis x-ray shows nothing acute, and by exam he is having no pain in his hip joint proper. I am comfortable with him going home at this time. He was prescribed a short course of analgesics to use as needed. Discussed reasons to return. ED Disposition - Plan for ED Patient: Disposition: Home or Assisted Living Diagnosis: Closed head injury without loss of consciousness, Cervical strain, acute, Back contusion, Fall down stairs Instructions: ED Head Injury Adult, ED Sprain Strain Neck Prescriptions: Hydrocodone Bitart/Apap 5-325 [[place] 5MG-325MG] 1 tab PO Q6H PRN PRN 2 Days #8 tab PRN Reason: Pain Prescription Printed Referrals: Juan De La Vega III, MD [Primary Care Provider] - As Needed
[2020-04-21] MEDS: Ondansetron 4 MG/2 ML Vial IV (03:33)
[2020-04-21] MEDS: Morphine 4 MG/ML Syringe IV ×2 (03:34→04:20)
[2020-04-21 04:36] VITALS: BP 119/75; PULSE 96; RESP 15; O2SAT 92
[2020-04-21] MEDS: HYDROcodone Bitartrate/Apap 5/325 Tablet PO (04:55)
[2020-04-21 05:13] VITALS: BP 119/75; PULSE 96; RESP 15; O2SAT 92
== END 2020-04-21 05:14 | disposition home or self-care (01) ==
PROVIDERS: Emergency Provider Emergency Medicine; PCP Family Medicine
DX: S09.90XA Unspecified injury of head, initial encounter (principal); S16.1XXA Strain of muscle, fascia and tendon at neck level, initial encounter; S20.229A Contusion of unspecified back wall of thorax, initial encounter; W10.9XXA Fall (on) (from) unspecified stairs and steps, initial encounter; G47.33 Obstructive sleep apnea (adult) (pediatric); E11.22 Type 2 diabetes mellitus with diabetic chronic kidney disease; I13.0 Hypertensive heart and chronic kidney disease with heart failure and stage 1 through stage 4 chronic kidney disease, or unspecified chronic kidney disease; I50.22 Chronic systolic (congestive) heart failure; N18.3 Chronic kidney disease, stage 3 (moderate); J44.9 Chronic obstructive pulmonary disease, unspecified; E78.5 Hyperlipidemia, unspecified; I25.10 Atherosclerotic heart disease of native coronary artery without angina pectoris; K21.9 Gastro-esophageal reflux disease without esophagitis; M47.816 Spondylosis without myelopathy or radiculopathy, lumbar region; F17.200 Nicotine dependence, unspecified, uncomplicated; Z82.49 Family history of ischemic heart disease and other diseases of the circulatory system; Z88.6 Allergy status to analgesic agent; Z88.8 Allergy status to other drugs, medicaments and biological substances; Z95.810 Presence of automatic (implantable) cardiac defibrillator; Z95.5 Presence of coronary angioplasty implant and graft
CPT/HCPCS: 70450; 72070; 72100; 72125; 72170; 96374; 96375; 99285; A4216; J2405

== ENCOUNTER 2020-04-24 18:24 | Emergency (ER) | payer MEDICARE, MEDICAID, SELFPAY ==
[2020-04-24] VITALS (10 sets, daily range): BP systolic 109–150; BP diastolic 71–91; PULSE 86–97; RESP 16–25; TEMP 36.1–37; O2SAT 93–99; BMI 31.6
--- NOTE | 2020-04-24 19:03 | EKG12_ITS ---
Test Reason : SOB Blood Pressure : / mmHG Vent. Rate : 095 BPM Atrial Rate : 095 BPM P-R Int : 146 ms QRS Dur : 116 ms QT Int : 388 ms P-R-T Axes : 061 014 162 degrees QTc Int : 487 ms Normal sinus rhythm Incomplete left bundle branch block Prolonged QT Abnormal ECG Confirmed by SHAVONNE LUNDBERG, LISA ([id number]), purchasing expeditor COREY BRYANT ([id number]) on 04/30/2020 2:19:57 PM Referred By: BUCKY Confirmed By:LSIA MARVIN MD
[2020-04-24] MEDS: Nitroglycerin SL (ED/IMG/CATH) 0.4 MG TABLET SUBLINGUAL (19:27)
[2020-04-24 19:29] LABS: Absolute Lymphocyte Count 1.38 X10^3/uL (0.83-4.51); Absolute Neutrophil Count 3.6 X10^3/uL (2.0-7.7); Basophil# 0.03 X10^3/uL; Basophil% 0.5 % (0-1); Eosinophil# 0.14 X10^3/uL; Eosinophils% 2.3 % (0-5); Hematocrit 41.7 % (40-54); Hemoglobin 13.6 g/dL (13.0-16.5); Lymphocyte # 1.38 X10^3/ul (4.0); Lymphocyte % 23.2 % (19-41); Mean Corp Hgb Conc 32.6 g/dL (32-36); Mean Corpuscular Hgb 30.8 pg (27.0-32.0); Mean Corpuscular Volume 94.6 fL (80-94); Mean Platelet Vol. 9.7 fl (6.2-12.0); Monocyte# 0.75 X10^3/uL; Monocyte% 12.6 % (0-10); NRBC Flagged by Analyzer 0 % (0-5); Neutrophil # 3.64 X10^3/uL (2.7-7.7); Neutrophil % 61.1 % (47-70); Platelet Count 197 K/mm3 (150-450); RBC Distribution Width CV 15.4 % (11.6-14.6); Red Blood Count 4.41 M/mm3 (4.6-6.2)
--- NOTE | 2020-04-24 19:32 | RAD_ITS ---
STUDY: X-RAY CHEST REASON FOR EXAM: Male, 70 years old. Shortness of breath TECHNIQUE: Frontal view of the chest COMPARISON: 03/11/20 FINDINGS: The lungs are clear. There are no pleural effusions. There is no pneumothorax. The heart is normal in size. Again noted are sternotomy wires and a pacemaker. The visualized osseous structures are within normal limits. RAD/Chest 1 View (Portable) IMPRESSION: No acute thoracic pathology. Electronically Signed: Mehdi Campa, at 20:09 EDT Tel , Service support ,
--- NOTE | 2020-04-24 19:40 | ED.DCSUM_ITS ---
History of Present Illness Chief Complaint: Shortness of Breath Informant: Patient Narrative: Patient is a 70-year-old male with a past medical history of CAD, CHF, hypertension, hyperlipidemia, diabetes who presents to the emergency department for shortness of breath, cough and chest wall pain. This started early this morning. States his cough has been productive of a yellow/green sputum. He denies any fevers or chills. No leg swelling or calf pain. His chest hurts every time that he coughs. He did have one episode of vomiting due to significant cough and sputum production. He has had the similar symptoms before in the past when he had a CHF exacerbation. He denies any significant abdominal pain. No change in bowel habits. No urinary symptoms. Denies any known sick contacts. He is a current everyday smoker. He is on supplemental oxygen only at nighttime. He has not tried taking anything for his symptoms at this point. Past Medical History - Allergies and Home Meds Allergies/Adverse Reactions: Allergies chlorpromazine HCl [From Thorazine] Allergy (Severe, Verified 04/21/20 02:37) Hives PER PATIENT tramadol HCl [From Ultram] Allergy (Severe, Verified 04/21/20 02:37) Hives PER PATIENT codeine Allergy (Intermediate, Verified 04/21/20 02:37) Hives atorvastatin Adverse Reaction (Intermediate, Verified 04/21/20 02:37) Other LEG PAIN/CRAMPS cyclobenzaprine [From Flexeril] Adverse Reaction (Verified 04/21/20 02:37) Upset Stomach metformin Adverse Reaction (Verified 04/21/20 02:37) Upset Stomach naproxen Adverse Reaction (Verified 04/21/20 02:37) Upset Stomach promethazine [From Phenergan] Adverse Reaction (Verified 04/21/20 02:37) Other CONFUSION Primary Care Physician: Juan De La Vega III, MD [Primary Care Provider] - 2 Days Prior records reviewed: Yes Surgical History: angioplasty - stents x 10, coronary bypass surgery, - - AICD placement, back surgery x 2, hernia repair, PCI. Smoking Status: Current every day smoker - Family History Paternal Family History: Family History (Last Reviewed 03/30/20 @ 09:58 by Marlene Robles CAREER EDUCATION TEACHER, CAREER EDUCATION TEACHER-C) Brother CAD (coronary artery disease) Myocardial infarction Sudden cardiac Mother Cancer Hypertension Father Cancer COPD (chronic obstructive pulmonary disease) Family History: Reports: Cancer, Heart Disease Maternal Family History: Family History (Last Reviewed 03/30/20 @ 09:58 by Marlene Robles NP, CAREER EDUCATION TEACHER-C) Brother CAD (coronary artery disease) Myocardial infarction Sudden cardiac Mother Cancer Hypertension Father Cancer COPD (chronic obstructive pulmonary disease) Family History: Reports: - - Patient notes a paternal family history of chronic lung disease, lung cancer with history of tobacco use. Review of Systems All systems negative except as indicated General: Denies: Chills, Fever, Sweats Eyes: Denies: Visual changes - bilaterally, Diplopia ENT: Denies: Rhinorrhea, Sore throat Cardiovascular: Reports: Chest pain - Chest wall. Denies: Palpitations Respiratory: Reports: Dyspnea, Cough, Sputum Gastrointestinal: Reports: Melena, Hematochezia. Denies: Abdominal pain, Nausea, Vomiting, Diarrhea Genitourinary: Denies: Dysuria, Hematuria, Frequency Musculoskeletal: Denies: Back pain, Extremity Pain Skin: Denies: Rash, Wounds Neurological: Denies: Headache, Weakness, Numbness Physical Exam Vital Signs/Narrative: Vital Signs Temp Pulse Resp BP Pulse Ox 04/24/20 19:27 90 138/90 H 04/24/20 19:26 96.9 F L 91 25 H 138/90 H 94 04/24/20 18:25 96.9 F L 92 24 H 150/91 H 99 Inital Vital Signs reviewed: Yes General: Well nourished, Well developed, No Acute Distress Head: Normocephalic, Atraumatic Eyes: Perrl, EOMI ENT: Moist mucous membranes, No rhinorrhea Neck: Supple, Nontender Cardiovascular: Regular rate, Regular rhythm, No murmurs Respiratory: Rales, Rhonchi, Diminished, Chest tenderness Abdomen: Soft, Nontender, Nondistended, Normal bowel sounds Back: Nontender, Normal Inspection Extremities: Nontender. Negative for: Edema, Calf Tenderness Skin: Normal color, No rash Neurological: Alert, Oriented x3, Cranial nerves II-XII grossly intact, Normal Strength, Normal Sensation Psychological: Normal affect, Normal Mood Diagnostic/Tx/Re-eval - EKG Initial EKG Interpretation: - - Rate of 95 bpm and normal sinus rhythm. QRS of 116 otherwise normal intervals. Normal axis. Nonspecific ST changes without any signs of acute ischemia. Prior EKG for comparison was performed on March 112019 which is similar in appearance. - Medical Decision Making Patient presents to the emergency department for chest pain, shortness of breath and chest wall pain. Upon arrival to the emergency department he is mildly tachypneic but satting well on room air. Patient given a sublingual nitro given suspicion of CHF exacerbation. EKG did not show any signs of acute ischemia. Basic lab work and x-ray being obtained. X-ray did not reveal any acute cardiopulmonary abnormality. BNP was slightly elevated. Troponin is negative. The rest the lab work did not reveal any significant acute abnormality. Patient given a breathing treatment and feels much better at this time. He does want to go home. We did a walking ambulatory test and did not desaturate past 92%. We will give a dose of prednisone here and sent home with prescription for azithromycin and prednisone. He does have breathing treatments at home. Strict return precautions were discussed with him including any worsening shortness of breath or developing any chest pain. He otherwise is to follow-up with his PCP. Patient understands and is agreeable this plan. Will discharge home in stable condition. ED Disposition - Plan for ED Patient: Disposition: Home or Assisted Living Diagnosis: COPD exacerbation, Dyspnea, Cough Instructions: ED COPD Flare Prescriptions: predniSONE tablet 40 mg PO DAILY 4 Days #8 tab Transmission Status: Received by [email or web address] Azithromycin [Zithromax Z-Anthony] 250 mg PO UD #1 box Transmission Status: Received by [email or web address] Referrals: Juan De La Vega III, MD [Primary Care Provider] - 2 Days
[2020-04-24 19:48] LABS: Anion Gap 4 (5-15); BUN 25 mg/dL (7-18); BUN/Creat Ratio 16.7 RATIO (10-20); Chloride 112 mmol/L (98-107); EST Glomerular Filtration Rate 49 mL/min (>60); Est Glom Filt Rate - Afr Amer 60 mL/min (>60); Estimated Creatinine Clearance 44.97 ml/min; Glucose 91 mg/dL (74-106); Potassium 3.7 mmol/L (3.5-5.1); Sodium Level 144 mmol/L (136-145)
[2020-04-24 20:13] LABS: BNP,B-Type NATRIURETIC PEPTIDE 694.3 pg/mL (0-100)
[2020-04-24] MEDS: Morphine 4 MG/ML Syringe IV ×2 (20:49→22:29)
[2020-04-24] MEDS: Ipratropium/Albuterol Sulfate 3 ML AMPUL.NEB INHALATION (22:04)
[2020-04-24] MEDS: predniSONE 20 MG Tablet 40 MG PO (23:32)
== END 2020-04-24 23:35 | disposition home or self-care (01) ==
PROVIDERS: Emergency Provider Emergency Medicine; PCP Family Medicine
DX: J44.1 Chronic obstructive pulmonary disease with (acute) exacerbation (principal); R06.00 Dyspnea, unspecified; R05 Cough; E11.9 Type 2 diabetes mellitus without complications; E78.5 Hyperlipidemia, unspecified; I11.0 Hypertensive heart disease with heart failure; I25.10 Atherosclerotic heart disease of native coronary artery without angina pectoris; F17.200 Nicotine dependence, unspecified, uncomplicated; Z82.49 Family history of ischemic heart disease and other diseases of the circulatory system; Z88.6 Allergy status to analgesic agent; Z88.8 Allergy status to other drugs, medicaments and biological substances; Z95.810 Presence of automatic (implantable) cardiac defibrillator
CPT/HCPCS: 36415; 71045; 80048; 83880; 84484; 85025; 87635; 93005; 94640; 96374; 96376; 99285; A4216; U0003

== ENCOUNTER 2020-06-22 05:35 | Emergency (ER) | payer MEDICARE, MEDICAID, SELFPAY ==
[2020-06-11 13:07] VITALS: BMI 31.3
[2020-06-22 05:36] VITALS: BP 110/60; PULSE 97; RESP 20; TEMP 36.9; O2SAT 95; BMI 32.1
--- NOTE | 2020-06-22 06:05 | EKG12_ITS ---
Test Reason : DYSRHYTHMIA Blood Pressure : / mmHG Vent. Rate : 092 BPM Atrial Rate : 092 BPM P-R Int : 146 ms QRS Dur : 118 ms QT Int : 404 ms P-R-T Axes : 072 -14 151 degrees QTc Int : 499 ms Normal sinus rhythm Incomplete left bundle branch block ST & T wave abnormality, consider lateral ischemia Prolonged QT Abnormal ECG Confirmed by SHAVONNE LUNDBERG, LISA ([id number]), editorial intern COREY BRYANT ([id number]) on 06/26/2020 9:07:22 AM Referred By: Confirmed By:LISA MARVIN MD
--- NOTE | 2020-06-22 06:05 | RAD_ITS ---
STUDY: X-RAY CHEST REASON FOR EXAM: Male, 70 years old. COUGH, HX HEART AND LUNG ISSUES. TECHNIQUE: AP upright portable view. COMPARISON: 04/24/2020. FINDINGS: Dual-chamber pacing lead tips remain in the right atrium and right ventricle. Small calcified granuloma in the lateral segment of the right middle lobe is unchanged. No confluent infiltrates. Prominent interstitial lung markings in the left lower lobe versus subsegmental atelectases. There is no demonstrated pleural abnormality. Normal size heart. Intact sternal wires. Normal mediastinum and serjio. Normal visualized pulmonary arteries. Normal visualized aortic arch and descending thoracic aorta. Normal visualized thoracic spine. Normal visualized ribs, clavicles, and shoulders. There is no demonstrated abnormality of the visualized soft tissue structures of the upper abdomen. RAD/Chest 1 View (Portable) IMPRESSION: Prominent interstitial lung markings in the left lower lobe. Subsegmental atelectasis versus minimal interstitial pneumonitis. Follow-up radiographs will help. Electronically Signed: Davi Mendoza MD at 8:24 EST , Service support ,
--- NOTE | 2020-06-22 06:10 | ED.DCSUM_ITS ---
- ER Visit Summary Date of Service: 06/22/20 Chief Complaint: Shortness of breath History of Present Illness: The patient is a 70 M presenting with shortness of breath x2 days. He complains of fever with temperature up to 101.4. He has had a productive cough and shortness of breath. He has had nausea and vomiting. He has chest pain when he coughs. He denies abdominal pain. Denies diarrhea. He states he chronically has myalgias. He has a headache. Denies neck pain. He states his shortness of breath is worsened with exertion. He denies loss of sense of taste or smell. Denies known exposure to Covid Physical Examination: Vitals are stable. Patient is afebrile. Alert no acute distress. Pulse ox 88% on room air HEENT exam is unremarkable. Neck is supple. Lungs are expiratory wheezing bilaterally. Heart is regular rate and rhythm. Abdomen is soft nontender nondistended. Extremities are unremarkable. Skin is warm and dry. No focal neurologic deficit. Remainder of exam is unremarkable. Emergency Department Course and Treatment: Patient was given albuterol, Atrovent aerosols. Patient was given morphine, Zofran IV. EKG is sinus rhythm rate of 92, similar to previous. CBC, chemistries unremarkable other than potassium 3.4, glucose 137, BUN 36, creatinine 2.29. Creatinine is elevated from previous. Covid is pending. Troponin is negative. Chest x-ray is pending. Patient will be signed out to oncoming physician for final disposition Disposition: Pending Impression: Dyspnea, cough This note was generated with [employer] dictation software. It may contain incorrect words, spelling, and punctuation that were not noted in review of the chart prior to signing ED Disposition - Plan for ED Patient: Referrals: Juan De La Vega III, MD [Primary Care Provider] -
[2020-06-22 06:18] LABS: Absolute Lymphocyte Count 1.12 X10^3/uL (0.83-4.51); Absolute Neutrophil Count 3.8 X10^3/uL (2.0-7.7); Basophil# 0.02 X10^3/uL; Basophil% 0.3 % (0-1); Eosinophil# 0.13 X10^3/uL; Eosinophils% 2.3 % (0-5); Hematocrit 44.1 % (40-54); Hemoglobin 14.6 g/dL (13.0-16.5); Lymphocyte # 1.12 X10^3/ul (4.0); Lymphocyte % 19.5 % (19-41); Mean Corp Hgb Conc 33.1 g/dL (32-36); Mean Corpuscular Hgb 31.2 pg (27.0-32.0); Mean Corpuscular Volume 94.2 fL (80-94); Monocyte# 0.69 X10^3/uL; NRBC Flagged by Analyzer 0 % (0-5); Neutrophil # 3.78 X10^3/uL (2.7-7.7); Neutrophil % 65.7 % (47-70); Platelet Count 174 K/mm3 (150-450); RBC Distribution Width CV 14.2 % (11.6-14.6); Red Blood Count 4.68 M/mm3 (4.6-6.2); White Blood Count 5.8 K/mm3 (4.4-11.0)
[2020-06-22 06:22] VITALS: PULSE 89; RESP 22
[2020-06-22] MEDS: Ipratropium/Albuterol Sulfate 3 ML AMPUL.NEB INHALATION (06:22)
[2020-06-22] MEDS: Albuterol 2.5 MG/3 ML VIAL.NEB. INHALATION ×3 (06:22)
[2020-06-22 06:44] LABS: AST(SGOT) 14 U/L (15-37); Alanine Aminotransfer ALT/SGPT 21 U/L (16-61); Albumin, Serum 3.5 g/dL (3.2-5.0); Alkaline Phosphatase 101 U/L (45-117); Anion Gap 10 (5-15); BUN 36 mg/dL (7-18); BUN/Creat Ratio 15.7 RATIO (10-20); Calcium,Total 8.4 mg/dL (8.5-10.1); Chloride 107 mmol/L (98-107); Creatinine, Serum 2.29 mg/dL (0.70-1.30); EST Glomerular Filtration Rate 30 mL/min (>60); Est Glom Filt Rate - Afr Amer 37 mL/min (>60); Estimated Creatinine Clearance 29.45 ml/min; Globulin 3.4 g/dL (2.2-4.2); Glucose 137 mg/dL (74-106); Potassium 3.4 mmol/L (3.5-5.1); Protein, Total 6.9 g/dL (6.4-8.2); Sodium Level 141 mmol/L (136-145)
[2020-06-22] MEDS: Ondansetron 4 MG/2 ML Vial IV (06:46)
[2020-06-22] MEDS: Morphine 4 MG/ML Syringe IV (06:46)
[2020-06-22 08:34] VITALS: BP 120/58; PULSE 90; RESP 18; O2SAT 97
--- NOTE | 2020-06-22 08:43 | ED.DCSUM_ITS ---
- ER Visit Summary Date of Service: 06/22/20 Chief Complaint: [] History of Present Illness: The patient is a 70 M [] Physical Examination: [] Test Results: [] Emergency Department Course and Treatment: [] Treatment Plan: [] Disposition: [] Impression: [] This note was generated with [employer] dictation software. It may contain incorrect words, spelling, and punctuation that were not noted in review of the chart prior to signing ED Disposition - Plan for ED Patient: Disposition: Home or Assisted Living Diagnosis: COPD with exacerbation, Bronchospasm, acute, Acute on chronic renal failure, Hypokalemia, Infiltrate of lower lobe of left lung present on imaging study Instructions: ED COPD Flare, ED Diet for Chronic Kidney Disease Prescriptions: Prednisone [Deltasone] 40 mg PO DAILY #10 tab Transmission Status: Pending to [facility] Doxycycline 100 mg PO BID #14 cap Transmission Status: Pending to [facility] Referrals: Juan De La Vega III, MD [Primary Care Provider] - 3-5 Days
[2020-06-22] MEDS: predniSONE 20 MG Tablet 60 MG PO (09:06)
[2020-06-22] MEDS: Doxycycline 100 MG CAPSULE PO (09:06)
[2020-06-22 09:07] VITALS: BP 124/76; PULSE 84; RESP 17; O2SAT 95
== END 2020-06-22 09:07 | disposition home or self-care (01) ==
PROVIDERS: Emergency Provider Emergency Medicine; PCP Family Medicine
DX: J44.1 Chronic obstructive pulmonary disease with (acute) exacerbation (principal); G89.29 Other chronic pain; N17.9 Acute kidney failure, unspecified; N18.9 Chronic kidney disease, unspecified; E11.9 Type 2 diabetes mellitus without complications; E87.6 Hypokalemia; R91.8 Other nonspecific abnormal finding of lung field; J98.01 Acute bronchospasm; I44.7 Left bundle-branch block, unspecified
CPT/HCPCS: 71045; 80053; 84484; 85025; 87426; 93005; 94640; 96374; 96375; 99285; A4216; J2405

== ENCOUNTER 2020-07-16 10:20 | Observation (INO) | payer MEDICARE, MEDICAID, SELFPAY ==
[2020-07-16] VITALS (11 sets, daily range): BP systolic 101–116; BP diastolic 64–84; PULSE 94–112; RESP 16–20; TEMP 36.4–36.9; O2SAT 89–98; BMI 33.1; BMI 32.1
--- NOTE | 2020-07-16 10:36 | CT_ITS ---
STUDY: CT BRAIN WITHOUT CONTRAST REASON FOR EXAM: Male, 70 years old. VERTIGO, LBP WITH SANCHEZ, HTN, CABG, [place], PACER, DB RADIATION DOSAGE (If Supplied By Facility): CTDIvol = ( 44.99 ) mGy, DLP = ( 812.98 ) mGycm TECHNIQUE: Transaxial CT imaging of the brain was performed without administration of intravenous contrast material. Individualized dose optimization techniques were used for this CT. COMPARISON: Comparison is made with prior study dated 04/21/2020. FINDINGS: Normal soft tissue structures. Normal calvarium. There is mild cerebral atrophy with widening of the extra-axial spaces and ventricular dilatation. There are areas of decreased attenuation within the white matter tracts of the supratentorial brain, consistent with microvascular disease changes. Stable focal encephalomalacia in the superior posterior aspect of the left posterior occipital lobes. Normal basal ganglia and thalami. Normal brainstem. Normal cerebellum. There is no intracranial hemorrhage. There are no findings of an acute ischemic infarction. Atherosclerotic calcification of the cavernous portions of the internal carotid arteries bilaterally. Partial opacification of the ethmoid sinuses worse on the left side with the nasal septal deviation with the spur formation. Conchal bullosa of the right middle turbinate. CT/Brain/Head without Contrast IMPRESSION: Chronic involutional changes of the brain. Electronically Signed: Arcenio Leary, at 12:02 EST , Service support ,
--- NOTE | 2020-07-16 10:36 | RAD_ITS ---
STUDY: X-RAY CHEST REASON FOR EXAM: Male, 70 years old. Low back pain and headache since this am TECHNIQUE: Single AP portable view of the chest. COMPARISON: Comparison is made with prior study dated 06/22/2020. FINDINGS: EKG electrodes are seen. Focal infiltrate is seen at the right lung base as well as in the right perihilar region. Follow-up is recommended. There is no demonstrated pleural abnormality. Sternal cerclage wires and vascular clips are present from a prior sternotomy and coronary artery bypass graft procedure (CABG). A left-sided dual chamber pacemaker is seen. Normal mediastinum and serjio. Normal visualized pulmonary arteries. Normal visualized aortic arch and descending thoracic aorta. Normal visualized thoracic spine. Normal visualized ribs, clavicles, and shoulders. There is no demonstrated abnormality of the visualized soft tissue structures of the upper abdomen. RAD/Chest 1 View (Portable) IMPRESSION: Focal infiltrate in the right lower lobe as well as in the right perihilar region. Electronically Signed: Arcenio Leary, at 12:04 EST , Service support ,
--- NOTE | 2020-07-16 10:37 | EKG12_ITS ---
Test Reason : HEADACHE Blood Pressure : / mmHG Vent. Rate : 094 BPM Atrial Rate : 094 BPM P-R Int : 154 ms QRS Dur : 122 ms QT Int : 404 ms P-R-T Axes : 058 004 152 degrees QTc Int : 505 ms Normal sinus rhythm Incomplete left bundle branch block T wave abnormality, consider lateral ischemia Abnormal ECG Confirmed by BERYL LUNDBERG, MICHELLE ([id number]), publishing editor COREY BRYANT ([id number]) on 07/18/2020 10:45:59 AM Referred By: AZALEA Confirmed By:MICHELLE CORDOBA MD
[2020-07-16 10:55] LABS: Absolute Lymphocyte Count 1.21 X10^3/uL (0.83-4.51); Absolute Neutrophil Count 3.1 X10^3/uL (2.0-7.7); Basophil# 0.03 X10^3/uL; Basophil% 0.6 % (0-1); Eosinophil# 0.12 X10^3/uL; Eosinophils% 2.4 % (0-5); Hematocrit 44.3 % (40-54); Hemoglobin 14.9 g/dL (13.0-16.5); Lymphocyte # 1.21 X10^3/ul (4.0); Lymphocyte % 24.4 % (19-41); Mean Corp Hgb Conc 33.6 g/dL (32-36); Mean Corpuscular Hgb 31.6 pg (27.0-32.0); Mean Corpuscular Volume 94.1 fL (80-94); Mean Platelet Vol. 9.8 fl (6.2-12.0); Monocyte# 0.49 X10^3/uL; Monocyte% 9.9 % (0-10); NRBC Flagged by Analyzer 0 % (0-5); Neutrophil # 3.09 X10^3/uL (2.7-7.7); Neutrophil % 62.5 % (47-70); Platelet Count 221 K/mm3 (150-450); RBC Distribution Width CV 14.3 % (11.6-14.6); Red Blood Count 4.71 M/mm3 (4.6-6.2)
[2020-07-16 11:05] LABS: International Normalized Ratio 0.9; Partial Thromboplast Time 30.1 Seconds (24.1-36.2)
[2020-07-16] MEDS: 0.9% Normal Saline 1,000 ML 1000 ML IV (11:05)
[2020-07-16] MEDS: Ondansetron 4 MG/2 ML Vial IV (11:05)
[2020-07-16 11:13] LABS: ALB/GLOB Ratio 0.9 RATIO (0.9-2.4); AST(SGOT) 23 U/L (15-37); Alanine Aminotransfer ALT/SGPT 25 U/L (16-61); Albumin, Serum 3.3 g/dL (3.2-5.0); Alkaline Phosphatase 90 U/L (45-117); Anion Gap 7 (5-15); BUN 24 mg/dL (7-18); BUN/Creat Ratio 15.1 RATIO (10-20); Calcium,Total 8.5 mg/dL (8.5-10.1); Chloride 108 mmol/L (98-107); Creatinine, Serum 1.59 mg/dL (0.70-1.30); EST Glomerular Filtration Rate 46 mL/min (>60); Est Glom Filt Rate - Afr Amer 56 mL/min (>60); Estimated Creatinine Clearance 42.42 ml/min; Globulin 3.5 g/dL (2.2-4.2); Glucose 86 mg/dL (74-106); Potassium 3.6 mmol/L (3.5-5.1); Protein, Total 6.8 g/dL (6.4-8.2); Sodium Level 142 mmol/L (136-145)
[2020-07-16] MEDS: fentaNYL 100 MCG/2 ML Ampul 50 MCG IV ×2 (11:25→13:18)
[2020-07-16] MEDS: Ceftriaxone 1 GM/50 ML BAG IV (13:18)
[2020-07-16] MEDS: proMETHazine 25 MG/ML Syringe 6.25 MG IV (13:41)
--- NOTE | 2020-07-16 14:00 | ED.VISSUMM ---
- ER Visit Summary Date of Service: 07/16/20 Chief Complaint: Headache and back pain History of Present Illness: The patient is a 70 M who presents from home for headache and back pain. This started this morning when he woke up. He has a severe headache all over in his low back hurts all over. Denies any trauma. Nothing incited this. Nothing seems to make it better. He does have associated vertigo and nausea. He also reports a cough with sputum. Denies fevers. Physical Examination: Afebrile and vital signs unremarkable except for respiratory rate of 20. 94% on room air. Patient is sitting in a dark room and appears uncomfortable. HEENT exam is unremarkable. Neck is nontender with no meningeal signs. Heart is regular. Coarse breath sounds bilaterally. Abdomen soft and nontender. Back is nontender. Skin appears unremarkable. Cranial nerves grossly intact. Normal strength and sensation. Test Results: EKG shows sinus rhythm at a rate of 94 with nonspecific T wave changes. I reviewed his chest x-ray. Chest x-ray shows a right lower lobe infiltrate which has changed over the past month. CT brain shows chronic changes. CBC, CMP, coags unremarkable. COVID-19 testing is negative. His troponin is elevated at 0.21. He had this before. Emergency Department Course and Treatment: Patient had an EKG. Placed on a monitor. Treated with fluids, pain meds, Zofran. He had continued pain and required additional pain medicine and Phenergan. His work-up as above showed a new infiltrate. His Covid test was negative. I have low suspicion for Covid. Cultures are pending. He was treated with azithromycin and Rocephin. CT brain was unremarkable. I do not suspect stroke or hemorrhage. His troponin is slightly elevated. He had this before. I suspect this is from his kidney disease. Repeat is pending. He is not having chest pain. Given his continued pain, pneumonia, respiratory symptoms, and elevated troponin, I did contact the hospitalist for inpatient care. Treatment Plan: As above Disposition: Admission Impression: Pneumonia, elevated troponin, headache This note was generated with [employer] dictation software. It may contain incorrect words, spelling, and punctuation that were not noted in review of the chart prior to signing ED Disposition - Plan for ED Patient: Referrals: Juan De La Vega III, MD [Primary Care Provider] -
--- NOTE | 2020-07-16 15:44 | PCM.HP.STD ---
Problem List (1) Elevated troponin Status: Acute (2) Suspected 2019-nCoV infection Status: Inactive (3) Dehydration Status: Inactive (4) Smoking greater than 30 pack years Status: Chronic Comment: Appropriate for low-dose CT lung screening due January 2021 (5) Unstable angina Status: Inactive (6) COPD exacerbation Status: Chronic (7) History of left heart catheterization Status: Chronic Comment: LVEF: by LV gram 15-20 %; Council Multivessel CAD; Occluded [place] mid LAD. Occluded [place] proximal RCA. Occluded SVG to DIAG. Occluded SVG to RCA. Occluded [place] to LAD. Severe 85% stenosis in last remaining vessel of SVG to LCX with widely patent SVG stents. Severe LV dysfunction. Referred for immediate PCI: Will tx to [facility] for high risk PCI to last remaining vessel of SVG to OM. 06/29/19 per DANA @ [facility] (8) Hypoxia, sleep related Status: Chronic (9) Coarse tremors Status: Chronic (10) Headache Status: Chronic (11) ARIADNA (obstructive sleep apnea) Status: Suspected (12) COPD (chronic obstructive pulmonary disease) Status: Chronic Qualifiers: Comment: FEV1 64% of predicted (13) Obesity (BMI 30.0-34.9) Status: Chronic (14) Nicotine dependence Status: Chronic Qualifiers: (15) Gout Status: Chronic (16) Degenerative cervical disc Status: Chronic (17) Chronic back pain Status: Chronic Qualifiers: (18) Presence of automatic implantable cardioverter-defibrillator Status: Chronic (19) H/O coronary artery bypass surgery Status: Chronic Comment: [place]-LAD, SVG-D1, SVG-OM (20) Chronic renal failure, stage 3 (moderate) Status: Chronic (21) Chronic systolic (congestive) heart failure Status: Chronic (22) Stented coronary artery Status: Chronic Comment: has had 7 stents as of 06/15/17 (23) Ischemic cardiomyopathy Status: Chronic Comment: 25% ejection fraction in November 2016 (24) V-tach Status: Chronic Comment: has an AICD (25) Benign essential hypertension Status: Chronic (26) Gastroesophageal reflux disease Status: Chronic (27) Hyperlipidemia Status: Chronic Qualifiers: (28) Type 2 diabetes mellitus Status: Chronic Qualifiers: (29) Morbid obesity Status: Chronic (30) CAD (coronary artery disease) Status: Chronic Qualifiers: History of Present Illness Date of Admission: 07/16/20 Chief Complaint: chest pain, headache and cough The patient is a 70 year old M presents with 1 day history of headache, cough and back pain. Patient was also noticing chest pain which is left-sided similar to when he has had myocardial infarction's before. Patient presented to the emergency room where he had chest x-ray that was unremarkable, troponin elevated at 0.2. Concern was patient had pneumonia patient did receive azithromycin and ceftriaxone. Patient was complaining of a frontal headache and did receive fentanyl for that. Concern was for possible pneumonia but also for possible developing myocardial infarction given the patient's extensive cardiac history and decision was made to admit the patient. Patient was checked for COVID-19 here and was negative but also was checked recently few days prior for procedure which was also negative. [] Past Medical History Past Medical History (Chronic Problems): Chronic Problems (Last Reviewed 06/11/20 @ 13:39 by Nafisa LINDSAY, PA) Smoking greater than 30 pack years (Chronic) Appropriate for low-dose CT lung screening due January 2021 COPD exacerbation (Chronic) History of left heart catheterization (Chronic 06/29/19) LVEF: by LV gram 15-20 %; Council Multivessel CAD; [place] mid LAD. [place] proximal RCA. Occluded SVG to DIAG. Occluded SVG to RCA. Occluded [place] to LAD. Severe 85% stenosis in last remaining vessel of SVG to LCX with widely patent SVG stents. Severe LV dysfunction. Referred for immediate PCI: Will tx to [facility] for high risk PCI to last remaining vessel of SVG to OM. 06/29/19 per DANA @ [facility] Hypoxia, sleep related (Chronic) Coarse tremors (Chronic) Headache (Chronic) COPD (chronic obstructive pulmonary disease) (Chronic) FEV1 64% of predicted Obesity (BMI 30.0-34.9) (Chronic) Nicotine dependence (Chronic) Gout (Chronic) Degenerative cervical disc (Chronic) Chronic back pain (Chronic) Presence of automatic implantable cardioverter-defibrillator (Chronic) H/O coronary artery bypass surgery (Chronic ~2008) [place]-LAD, SVG-D1, SVG-OM Chronic renal failure, stage 3 (moderate) (Chronic) Chronic systolic (congestive) heart failure (Chronic) Stented coronary artery (Chronic ~12/2016) has had 7 stents as of 06/15/17 Ischemic cardiomyopathy (Chronic) 25% ejection fraction in November 2016 V-tach (Chronic) has an AICD Benign essential hypertension (Chronic) Gastroesophageal reflux disease (Chronic) Hyperlipidemia (Chronic) Type 2 diabetes mellitus (Chronic) Morbid obesity (Chronic) CAD (coronary artery disease) (Chronic) Medical History: Medical History (Last Reviewed 07/16/20 @ 15:[address] Ravin Ortega, DO) Nicotine dependence (Chronic) F17.200 Gout (Chronic) M10.9 Degenerative cervical disc (Chronic) M50.30 Chronic back pain (Chronic) M54.9, G89.29 Chronic renal failure, stage 3 (moderate) (Chronic) N18.3 Chronic systolic (congestive) heart failure (Chronic) I50.22 Ischemic cardiomyopathy (Chronic) I25.5 25% ejection fraction in November 2016 V-tach (Chronic) I47.2 has an AICD Benign essential hypertension (Chronic) I10 Gastroesophageal reflux disease (Chronic) K21.9 Hyperlipidemia (Chronic) E78.5 Type 2 diabetes mellitus (Chronic) E11.9 Morbid obesity (Chronic) E66.01 CAD (coronary artery disease) (Chronic) I25.10 Tubular adenoma of colon (Inactive) D12.6 Allergies chlorpromazine HCl [From Thorazine] Allergy (Severe, Verified 07/16/20 10:25) Hives PER PATIENT tramadol HCl [From Ultram] Allergy (Severe, Verified 07/16/20 10:25) Hives PER PATIENT codeine Allergy (Intermediate, Verified 07/16/20 10:25) Hives atorvastatin Adverse Reaction (Intermediate, Verified 07/16/20 15:20) LEG PAIN/CRAMPS LEG PAIN/CRAMPS cyclobenzaprine [From Flexeril] Adverse Reaction (Verified 07/16/20 10:25) Upset Stomach metformin Adverse Reaction (Verified 07/16/20 10:25) Upset Stomach naproxen Adverse Reaction (Verified 07/16/20 10:25) Upset Stomach promethazine [From Phenergan] Adverse Reaction (Verified 07/16/20 15:20) CONFUSION CONFUSION Home Medications: Ambulatory Orders Medication Instructions Recorded Pantoprazole Sodium [Protonix] 40 mg PO DAILY 11/15/17 Rosuvastatin Calcium [Crestor] 40 mg PO DAILY 06/16/18 Clopidogrel Bisulfate [Plavix] 75 mg PO DAILY 09/01/18 Allopurinol 300 mg PO DAILY 09/20/18 Nitroglycerin 0.4 mg SL PRN PRN 12/01/18 Albuterol Inhaler [Ventolin Hfa] 2 puff INHALATION Q4H PRN PRN 02/24/19 Oxycodone HCl/Acetaminophen 1 tab PO Q6H PRN 05/02/19 [Oxycodon-Acetaminophen 7.5-325] aspirin 325 mg tablet,delayed 325 mg PO DAILY 10/05/19 release Carvedilol [Coreg (Beta Sina)] 6.25 mg PO BID 10/19/19 Furosemide [Lasix] 40 mg PO BID@1000,1800 10/19/19 Glimepiride [Amaryl] 1 mg PO DAILY 10/19/19 Levothyroxine [Synthroid] 25 mcg PO DAILY@0600 10/19/19 sacubitril 24 mg-valsartan 26 mg 1 tab PO BID #60 tab 12/21/19 tablet umeclidinium 62.5 mcg-vilanterol 1 inh INHALATION Q24H #1 ea 01/03/20 25 mcg/actuation powdr for inhalation Surgical History: Surgical History (Last Reviewed 07/16/20 @ 15:[address] Ravin Ortega, DO) History of left heart catheterization (Chronic) Onset Date: 06/29/19 Z98.890 LVEF: by LV gram 15-20 %; Council Multivessel CAD; [place] mid LAD. [place] proximal RCA. Occluded SVG to DIAG. Occluded SVG to RCA. Occluded [place] to LAD. Severe 85% stenosis in last remaining vessel of SVG to LCX with widely patent SVG stents. Severe LV dysfunction. Referred for immediate PCI: Will tx to [facility] for high risk PCI to last remaining vessel of SVG to OM. 06/29/19 per DANA @ [facility] Presence of automatic implantable cardioverter-defibrillator (Chronic) Z95.810 H/O coronary artery bypass surgery (Chronic) Onset Date: ~2008 Z95.1 HU[place]Y-LAD, SVG-D1, SVG-OM Stented coronary artery (Chronic) Onset Date: ~12/2016 has had 7 stents as of 06/15/17 Hx of hernia repair (Inactive) Z98.890, Z87.19 Previous back surgery (Inactive) Z98.890 Surgical History: angioplasty - stents x 10, coronary bypass surgery, - - AICD placement, back surgery x 2, hernia repair, PCI. Psychiatric History: No pertinent psych hx Smoking Status: Light Smoker (<10/day) Tobacco Use: - - Patient smokes a few cigarettes per day but also chews Alcohol: None Drugs: None - *Family History Paternal Family History: Family History (Last Reviewed 07/16/20 @ 15:[address] Ravin Ortega DO) Brother CAD (coronary artery disease) Myocardial infarction Sudden cardiac Mother Cancer Hypertension Father Cancer COPD (chronic obstructive pulmonary disease) History Items: Cancer, Heart Disease Maternal Family History: Family History (Last Reviewed 07/16/20 @ 15:[address] Ravin Ortega DO) Brother CAD (coronary artery disease) Myocardial infarction Sudden cardiac Mother Cancer Hypertension Father Cancer COPD (chronic obstructive pulmonary disease) History Items: - - Patient notes a paternal family history of chronic lung disease, lung cancer with history of tobacco use. Review of Systems Constitutional: Denies: Anorexia, Fever, Night Sweats Eyes: Denies: Blurred vision, Double vision HEENT: Reports: Head Aches. Denies: Sinus Congestion, Sinus Drainage Cardiovascular: Reports: Chest Pain. Denies: Edema Respiratory: Reports: Cough. Denies: Shortness of breath at rest, Sputum production Gastrointestinal: Denies: Abdominal Pain, Nausea, Vomiting Genitourinary: Denies: Dysuria Musculoskeletal: Denies: Joint Pain, Joint Tenderness Skin: Denies: Rash, Wounds Neurological: Denies: Numbness, Tingling, Focal weakness Psychiatric: Denies: Anxiety, Depression Hematologic/ Lymphatic: Denies: Easy Bruising, Easy Bleeding, Hx of blood clot Comment: All review of systems were negative except as mentioned above in the history of present illness and the other review of systems. VTE Information - Inpt Only VTE Present on Admission: No VTE Mechan Device Prophylaxis: None VTE Pharm Prophylaxis ordered?: No Patient Problems: Active and Suspected Problems (Last Reviewed 06/11/20 @ 13:39 by Nafisa LINDSAY, PA) Elevated troponin (Acute) ARIADNA (obstructive sleep apnea) (Suspected) - Physical Exam Vitals/I&O's: Vital Signs Temp Pulse Resp BP Pulse Ox 36.4 C L 102 H 18 101/64 96 07/16/20 14:58 07/16/20 14:58 07/16/20 14:58 07/16/20 14:58 07/16/20 14:58 Oxygen Flow Rate (L/min) 2 Oxygen Delivery Method Nasal Cannula Weight: 98.8 kg Body Mass Index (BMI) 33.1 Finger Stick Blood Glucose 111 Intake and Output for Last 24 Hours 07/14/20 07/15/20 07/16/20 23:59 23:59 23:59 Intake Total 1305 / 1305 Balance 1305 / 1305 General: Alert, Cooperative, No apparent distress, - - Appears older than stated age HEENT: Atraumatic, Normocephalic Oral: Moist Mucosa, No Gingival or Mucosal Lesions/ Ulcerations Neck: No Nodes, Thyroid Normal Size and Texture Lungs: Normal air movement, - - Crackles in the right lower lobe Cardiovascular: Regular rate, Regular Rhythm, Normal S1, Normal S2, No murmurs Abdomen: Bowel Sounds Present, Soft, Non Tender, Non-Distended, No Hepato-splenomegaly Extremities: No edema, No Calf Tenderness Skin: No rashes, No breakdown Psych/Mental Status: Normal Affect, Appropriate Microbiology Past 72 Hours 07/16/20 10:47 Mucosa - Nose SARS-CoV-2 Antigen (Rapid) - Final Laboratory Results 07/16/20 10:45: WBC 5.0, RBC 4.71, Hgb 14.9, Hct 44.3, MCV 94.1 H, MCH 31.6, MCHC 33.6, RDW Std Deviation 49.0 H, RDW Coeff of Maggie 14.3, Plt Count 221, MPV 9.8, Immature Gran % (Auto) 0.200, Neut % (Auto) 62.5, Lymph % (Auto) 24.4, [place] % (Auto) 9.9, Eos % (Auto) 2.4, Baso % (Auto) 0.6, Absolute Neuts (auto) 3.1, Absolute Lymphs (auto) 1.21, Nucleated RBC % 0 07/16/20 10:45: PT 12.0, INR 0.9, APTT 30.1 07/16/20 10:45: Sodium 142, Potassium 3.6, Chloride 108 H, Carbon Dioxide 27.0, Anion Gap 7, BUN 24 H, Creatinine 1.59 H, Estim Creat Clear Calc 42.42, Est GFR (MDRD) Af Amer 56 L, Est GFR (MDRD) Non-Af 46 L, BUN/Creatinine Ratio 15.1, Glucose 86, Calcium 8.5, Total Bilirubin 0.30, AST 23, ALT 25, Alkaline Phosphatase 90, Troponin I 0.210 H, Total Protein 6.8, Albumin 3.3, Globulin 3.5, Albumin/Globulin Ratio 0.9 07/16/20 15:20: Troponin I Pending EKG reviewed and showed normal sinus rhythm with ST depressions inferior leads. Is unchanged from 06/22/2020. Chest x-ray personally reviewed and did not show any evidence of any infiltration or pulmonary edema. Clinical Impression(s) from Imaging Studies Brain CT 07/16/20 10:36 IMPRESSION: Chronic involutional changes of the brain. Electronically Signed: Arcenio Leary, at 12:02 EST , Service support , Chest X-Ray 07/16/20 10:36 IMPRESSION: Focal infiltrate in the right lower lobe as well as in the right perihilar region. Electronically Signed: Arcenio Leary, at 12:04 EST , Service support , Assessment/Plan All Active Problems (Last Reviewed 06/11/20 @ 13:39 by Nafisa LINDSAY, PA) Elevated troponin (Acute) COPD exacerbation (Resolved) Cardiac enzymes elevated (Resolved) 1. Elevated troponin Continue to cycle troponins Unclear if a developing non-ST patient myocardial infarction versus and ischemia Patient has a very extensive cardiac history with ischemic cardiomyopathy and bypass Discussed with Dr. Lay, who will be seeing the patient on consultation Continue with home medications, including aspirin, carvedilol, clopidogrel 2. Headache Unclear this is a migraine or other variant. Patient did receive narcotics in the emergency room. There is no evidence to support the use of narcotics for headaches or migraines. Patient would not receive any narcotics for his headache during this hospitalization. Will try with aspirin. Try to minimize use of narcotics for rebound analgesia. 3. Possible pneumonia Of note, patient does not have a fever nor leukocytosis Will treat the patient empirically with azithromycin and ceftriaxone which patient generally did receive in the emergency room. Check urinary antigens for Streptococcus and Legionella. COVID-19 was negative If culture work-up is unremarkable, may consider discontinuing antibiotics. 4. VTE prophylaxis: Enoxaparin 5. Advanced care planning: Discussed with the patient. Patient wishes to be full CODE STATUS. OBSV E&M: 19882 Initial observation care L2
--- NOTE | 2020-07-16 15:46 | EKG12_ITS ---
Test Reason : AM EKG Blood Pressure : / mmHG Vent. Rate : 085 BPM Atrial Rate : 085 BPM P-R Int : 156 ms QRS Dur : 122 ms QT Int : 408 ms P-R-T Axes : 067 -28 161 degrees QTc Int : 485 ms Normal sinus rhythm [id number] Abnormal ECG Confirmed by BERYL LUNDBERG, MICHELLE ([id number]), editorial assistant HARINI STONE ([id number]) on 07/19/2020 9:04:25 AM Referred By: CAESAR Confirmed By:MICHELLE CORDOBA MD
--- NOTE | 2020-07-16 17:31 | PCM.CONS.C ---
Problem List (1) Elevated troponin Status: Acute (2) CAD (coronary artery disease) Status: Chronic Qualifiers: (3) Stented coronary artery Status: Chronic Comment: has had 7 stents as of 06/15/17 (4) H/O coronary artery bypass surgery Status: Chronic Comment: HUMPHREY-LAD, SVG-D1, SVG-OM (5) Ischemic cardiomyopathy Status: Chronic Comment: 25% ejection fraction in November 2016 (6) Chronic systolic (congestive) heart failure Status: Chronic (7) Presence of automatic implantable cardioverter-defibrillator Status: Chronic (8) Hyperlipidemia Status: Chronic Qualifiers: (9) Benign essential hypertension Status: Chronic (10) Type 2 diabetes mellitus Status: Chronic Qualifiers: (11) COPD (chronic obstructive pulmonary disease) Status: Chronic Qualifiers: Comment: FEV1 64% of predicted (12) Chronic renal failure, stage 3 (moderate) Status: Chronic (13) Obesity (BMI 30.0-34.9) Status: Chronic Reason for Consult Date of Consultation: 07/16/20 History of Present Illness: The patient is a 70 year old white male with a past medical history of CAD status post PCI, status post CABG, ischemic mediated cardiomyopathy, chronic systolic CHF, status post dual-chamber ICD placement, hyperlipidemia, hypertension, diabetes mellitus, COPD, chronic renal insufficiency, morbid obesity who presents for concerns of abnormal troponin I levels with concerns of left chest discomfort/pressure, left upper extremity discomfort, shortness of breath/dyspnea, wheezing, for cardiovascular evaluation. He states he feels as if he is having one of his CHF exacerbations. He states the discomfort he has felt the chest is different from discomfort he has felt before when he has eventually had PCI or CABG. He denies any nausea, emesis, or diaphoresis. He does not seem to complain of acute orthopnea but states that he did get up during the night to use his nebulizer and then sleep in the chair. He is not sure whether he has had any significant change in his lower extremities with respect to ongoing peripheral pitting edema. He denies any near-syncope or syncope or ICD discharge. He states based upon his symptoms he was evaluated by his grandson. He states he was told he had a fever of 100.4. The EMS was called. Apparently the EMS did not duplicate his fever and reported a temperature, according to the patient, of approximately 98.4. He was brought to the hospital for further evaluation. He had cardiac enzymes performed which were determinant. He had an ECG that demonstrated sinus rhythm with the appearance of an incomplete left bundle branch block pattern. His chest x-ray is as noted below. He was then placed in the PCU for further evaluation from a cardiac standpoint. In the interim there was concerns of a possible right lower lobe infiltrate/pneumonia. Thus he was to receive IV antibiotic therapy as well. His COVID-19 rapid antigen test was reported as negative. [] Past Medical History Allergies/Adverse Reactions: Allergies chlorpromazine HCl [From Thorazine] Allergy (Severe, Verified 07/16/20 10:25) Hives PER PATIENT tramadol HCl [From Ultram] Allergy (Severe, Verified 07/16/20 10:25) Hives PER PATIENT codeine Allergy (Intermediate, Verified 07/16/20 10:25) Hives atorvastatin Adverse Reaction (Intermediate, Verified 07/16/20 15:20) LEG PAIN/CRAMPS LEG PAIN/CRAMPS cyclobenzaprine [From Flexeril] Adverse Reaction (Verified 07/16/20 10:25) Upset Stomach metformin Adverse Reaction (Verified 07/16/20 10:25) Upset Stomach naproxen Adverse Reaction (Verified 07/16/20 10:25) Upset Stomach promethazine [From Phenergan] Adverse Reaction (Verified 07/16/20 15:20) CONFUSION CONFUSION Home Medications: Ambulatory Orders Medication Instructions Recorded Pantoprazole Sodium [Protonix] 40 mg PO DAILY 11/15/17 Rosuvastatin Calcium [Crestor] 40 mg PO DAILY 06/16/18 Clopidogrel Bisulfate [Plavix] 75 mg PO DAILY 09/01/18 Allopurinol 300 mg PO DAILY 09/20/18 Nitroglycerin 0.4 mg SL PRN PRN 12/01/18 Albuterol Inhaler [Ventolin Hfa] 2 puff INHALATION Q4H PRN PRN 02/24/19 Oxycodone HCl/Acetaminophen 1 tab PO Q6H PRN 05/02/19 [Oxycodon-Acetaminophen 7.5-325] aspirin 325 mg tablet,delayed 325 mg PO DAILY 10/05/19 release Carvedilol [Coreg (Beta Sina)] 6.25 mg PO BID 10/19/19 Furosemide [Lasix] 40 mg PO BID@1000,1800 10/19/19 Glimepiride [Amaryl] 1 mg PO DAILY 10/19/19 Levothyroxine [Synthroid] 25 mcg PO DAILY@0600 10/19/19 sacubitril 24 mg-valsartan 26 mg 1 tab PO BID #60 tab 12/21/19 tablet umeclidinium 62.5 mcg-vilanterol 1 inh INHALATION Q24H #1 ea 01/03/20 25 mcg/actuation powdr for inhalation Past Medical History (Chronic Problems): Chronic Problems (Last Reviewed 07/16/20 @ 15:[address] Ravin Ortega, DO) Smoking greater than 30 pack years (Chronic) Appropriate for low-dose CT lung screening due January 2021 COPD exacerbation (Chronic) History of left heart catheterization (Chronic 06/29/19) LVEF: by LV gram 15-20 %; [employer] CAD; Occluded [place] mid LAD. Occluded [place] proximal RCA. Occluded SVG to DIAG. Occluded SVG to RCA. Occluded HUMPHREY to LAD. Severe 85% stenosis in last remaining vessel of SVG to LCX with widely patent SVG stents. Severe LV dysfunction. Referred for immediate PCI: Will tx to [facility] for high risk PCI to last remaining vessel of SVG to OM. 06/29/19 per DANA @ [facility] Hypoxia, sleep related (Chronic) Coarse tremors (Chronic) Headache (Chronic) COPD (chronic obstructive pulmonary disease) (Chronic) FEV1 64% of predicted Obesity (BMI 30.0-34.9) (Chronic) Nicotine dependence (Chronic) Gout (Chronic) Degenerative cervical disc (Chronic) Chronic back pain (Chronic) Presence of automatic implantable cardioverter-defibrillator (Chronic) H/O coronary artery bypass surgery (Chronic ~2008) HUMPHREY-LAD, SVG-D1, SVG-OM Chronic renal failure, stage 3 (moderate) (Chronic) Chronic systolic (congestive) heart failure (Chronic) Stented coronary artery (Chronic ~12/2016) has had 7 stents as of 06/15/17 Ischemic cardiomyopathy (Chronic) 25% ejection fraction in November 2016 V-tach (Chronic) has an AICD Benign essential hypertension (Chronic) Gastroesophageal reflux disease (Chronic) Hyperlipidemia (Chronic) Type 2 diabetes mellitus (Chronic) Morbid obesity (Chronic) CAD (coronary artery disease) (Chronic) Surgical History: angioplasty - stents x 10, coronary bypass surgery, - - AICD placement, back surgery x 2, hernia repair, PCI. Psychiatric History: No pertinent psych hx - *Family History Paternal Family History: Family History (Last Reviewed 07/16/20 @ 15:[address] Ravin Ortega DO) Brother CAD (coronary artery disease) Myocardial infarction Sudden cardiac Mother Cancer Hypertension Father Cancer COPD (chronic obstructive pulmonary disease) History Items: Cancer, Heart Disease Maternal Family History: Family History (Last Reviewed 07/16/20 @ 15:[address] Ravin Ortega DO) Brother CAD (coronary artery disease) Myocardial infarction Sudden cardiac Mother Cancer Hypertension Father Cancer COPD (chronic obstructive pulmonary disease) History Items: - - Patient notes a paternal family history of chronic lung disease, lung cancer with history of tobacco use. Smoking Status: Light Smoker (<10/day) Tobacco Use: - Alcohol: None Drugs: None Review of Systems - Review of Systems General: Reports: Fever. Denies: Fatigue, Night Sweats HEENT: Reports: Hearing Changes Cardiovascular: Reports: Chest Discomfort, Chest Discomfort at Rest, Shortness of Breath, Shortness of Breath at Rest. Denies: Orthopnea, PND, Peripheral Edema, Palpitations, Lightheadedness, Dizziness, Near Syncope, Syncope Respiratory: Reports: Shortness of Breath, Wheezing. Denies: Cough, Sputum Production, Hemoptysis Gastrointestinal: Denies: Hematemesis, Hematochezia, Melena Genitourinary: Denies: Dysuria, Hematuria Skin: Denies: Rash Subjectve: This is a 70-year-old white male who appears to be resting reasonably comfortably at the moment in no acute distress. Objective: Vital Signs Temp Pulse Resp BP Pulse Ox 98.2 F 101 H 18 113/81 H 95 07/16/20 16:10 07/16/20 16:10 07/16/20 16:10 07/16/20 16:10 07/16/20 16:10 Oxygen Flow Rate (L/min) 2 Oxygen Delivery Method Room Air Weight: 211 lb Body Mass Index (BMI) 32.1 Finger Stick Blood Glucose 111 Intake and Output for Last 24 Hours 07/14/20 07/15/20 07/16/20 23:59 23:59 23:59 Intake Total 1305 / 1305 Balance 1305 / 1305 General: Awake, Alert, Oriented x 3, Cooperative, No Acute Distress, Obese HEENT: Atraumatic, Normocephalic, PERRL, EOMI, Sclera Non Icteric Neck: Supple, Good ROM, No JVD Lungs: Inspiratory Wheezes - Stone Cardiovascular: Regular Rhythm, Normal S1, Normal S2, Positive S4 Vascular: No Carotid Bruits Abdomen: Bowel Sounds Present, Soft, Non Tender Extremities: No Cyanosis, No Clubbing, No edema Neurological: No Focal Motor or Sensory Deficit Psych/Mental Status: Appropriate 07/16/20 10:45: WBC 5.0, RBC 4.71, Hgb 14.9, Hct 44.3, MCV 94.1 H, MCH 31.6, MCHC 33.6, Plt Count 221, MPV 9.8, Immature Gran % (Auto) 0.200, Neut % (Auto) 62.5, Lymph % (Auto) 24.4, [place] % (Auto) 9.9, Eos % (Auto) 2.4, Baso % (Auto) 0.6, Absolute Neuts (auto) 3.1, Nucleated RBC % 0 07/16/20 10:45: PT 12.0, INR 0.9, APTT 30.1 07/16/20 10:45: Sodium 142, Potassium 3.6, Chloride 108 H, Carbon Dioxide 27.0, Anion Gap 7, BUN 24 H, Creatinine 1.59 H, Est GFR (MDRD) Af Amer 56 L, Est GFR (MDRD) Non-Af 46 L, BUN/Creatinine Ratio 15.1, Glucose 86, Calcium 8.5, Total Bilirubin 0.30, Troponin I 0.210 H 07/16/20 15:20: Troponin I 0.319 H Rhythm: Sinus rhythm EKG: As noted above ECHO: 09-24-2019 Interpretation Summary The study was technically difficult. Contrast injection was performed. Severe segmental systolic dysfunction (see wall motion). The estimated ejection fraction is 15 %. The left atrium is mildly enlarged. Mild diffuse mitral valve thickening. Mild-Moderate (1-2+) mitral valve insufficiency. Trivial tricuspid valve insufficiency. Mild diffuse aortic valve thickening. Mild focal aortic valve calcification. Unable to estimate RV systolic pressure/pulmonary artery pressure due to technically difficult study. There is evidence of diastolic dysfunction. Stress Test: 12-03-2017 Stress Test Report Date: 12/03/2017 Procedure: Pharmacologic stress nuclear imaging study Indications: Chest pain; CAD; VA; PCI; CABG; ICD Consent: Per the patient Procedure: The patient underwent pharmacologic (Regadenoson) evaluation with a peak heart rate of 96 beats per minute (62 predicted maximal heart rate) and a peak blood pressure of 122/70 mmHg. The baseline ECG demonstrated normal sinus rhythm, poor R-wave progression, ST/T-wave abnormality. The peak pharmacologic ECG demonstrated somatic/motion artifact with no obvious ECG changes. There were no cardiac dysrhythmias pretest, during pharmacologic infusion, or recovery. There was no complaint of chest discomfort during pharmacologic infusion or recovery. The examination was discontinued secondary to completion of protocol. Impression: 1. Pharmacologic (Regadenoson) evaluation 2. Peak pharmacologic ECG with no obvious ECG changes. 3. No cardiac dysrhythmias pretest, during pharmacologic infusion, or recovery 4. Nuclear images pending Myocardial perfusion imaging study: Technique: The patient was injected with 14.4 millicuries of technetium 99m Cardiolite and subsequently rest SPECT Cardiolite nuclear imaging was obtained in the horizontal long, vertical long, and short axis views. The patient underwent pharmacologic (Regadenoson) evaluation with a peak heart rate of 96 beats per minute (62 % percent predicted maximal heart rate) and a peak blood pressure of 122/70 mmHg. The patient was injected with 44.2 millicuries of technetium 99m Cardiolite and subsequently stress SPECT Cardiolite nuclear imaging was obtained in the horizontal long, vertical long, and short axis views. A gated Cardiolite study at peak stress was obtained. Interpretation: Rest and stress SPECT Cardiolite nuclear imaging status post realignment, normalization, and attenuation correction demonstrate the appearance of diminished absence of myocardial perfusion/tracer uptake in portions of the mid to distal anterior, mid to distal anterolateral, distal anteroseptal, distal inferior, and apical segments without significant change between rest and stress. There is diminished end systolic thickening and brightening in the aforementioned areas. The gated Cardiolite study demonstrates diminished myocardial thickening and inward wall motion in the aforementioned areas. The reported LVEF is 24 %. Impression: 1. Rest and stress SPECT Cardiolite nuclear imaging demonstrating myocardial perfusion changes compatible with previous myocardial injury/infarction involving portions of the mid to distal anterior, distal anterolateral, distal anteroseptal, distal inferior, and apical segments with no myocardial perfusion changes consider diagnostic for associated stress-induced myocardial ischemia. 2. The gated Cardiolite study reports an LVEF of 24%. Cardiac Cath: 06-29-2019 CONCLUSIONS LVEF: by LV gram 15-20 % [employer] CAD Occluded [place] mid LAD. Occluded [place] proximal RCA. Occluded SVG to DIAG Occluded SVG to RCA Occluded HUMPHREY to LAD. Severe 85% stenosis in last remaining vessel of SVG to LCX with widely patent SVG stents. Severe LV dysfunction. RECOMMENDATIONS Referred for immediate PCI Will tx to [facility] for high risk PCI to last remaining vessel of SVG to OM. Management as per referring Tube Bender Hand 4Fr sheath sutured in place. DESCRIPTION OF PROCEDURE The patient arrived to the procedure lab. The risks and benefits of the procedure as well as a full description of our services here and current unavailability of surgical backup were fully explained to the patient and/or their significant other prior to the catheterization. The Timeout was completed, verifying the correct patient and procedure. The patient's procedural site was prepped and draped in the usual fashion. Local anesthetic was given subcutaneously to right groin region with Lidocaine 2%. Using a modified Seldinger technique, arterial access was obtained via the right femoral artery, a 4Fr sheath was inserted Left Coronary Artery selective angiography was performed in multiple views using a 4 Fr. JL5 catheter. Right Coronary Artery selective angiography was then performed in multiple views using a 4 Fr. 3DRC catheter - occluded. Saphenous Vein graft to the OM selective angiography was performed in multiple views using a 4 Fr. 3DRC catheter. Left internal mammary artery graft to the LAD selective angiography was performed in multiple views using a 4 Fr. AR MOD 2 catheter. Left Ventriculography was performed in LOVE projection using a 4 Fr. Pigtail catheter. LV to AO pullback pressures were then recorded. CORONARY ANGIOGRAPHY DOMINANCE: Right Dominant LEFT HEART ASSESSMENT Left Ventricular Ejection Fraction: by LV Gram 15-20 % Anterior Hypokinesis - Severe Depressed Left Ventricular systolic function LVEDP: 7 mmHg LEFT MAIN: Mild luminal irregularities less than 30% LEFT ANTERIOR DESCENDING ARTERY: MID LAD: is occluded CIRCUMFLEX ARTERY: DISTAL CIRC: 75 % Stenosis RIGHT CORONARY ARTERY: is occluded GRAFTS: HUMPHREY graft to the LAD is totally occluded Saphenous Vein graft to the RCA is totally occluded Saphenous Vein graft to the 1st Diagonal is totally occluded Saphenous Vein graft to the CIRC has a proximal lesion of 85 %, with widely patent SVG stents. COLLATERAL FLOW: Collateral flow from Left to Left PCI: 12?4?2019: [facility]: PCI to the SVG to the OM CT Surgery: 04-30-2009: [facility] HUMPHREY to the LAD SVG to the diagonal branch SVG to the OM SVG to the RCA system CXR: Preliminary evaluation: Post open heart surgery changes; dual-chamber ICD; possible right lower lobe infiltrate; please see official report Assessment/Plan 1. Abnormal troponin I levels The patient does present with abnormal troponin I levels. They are indeterminant. He has had this earlier this year in August where it was felt at the time it was related to supply demand mismatch. He did not require repeat cardiac catheterization at that time. At the present time this is concerning for possible change in his underlying CAD or graft status based upon the patient's symptoms superimposed upon his cardiovascular disease history. Thus he will continue in the PCU with follow-up cardiac enzymes and ECG as deemed appropriate. He may need a follow-up transthoracic echocardiogram to reassess his overall left ventricular wall motion and systolic function. Depending upon his clinical course he may need reassessment either noninvasively or invasively with studies such as exercise tolerance test/imaging studies, diagnostic cardiac catheterization, or possible viability studies. At the same time his troponin I levels may be a type II event from supply demand mismatch brought out by his underlying concerns of acute on chronic systolic mediated CHF and possible COPD event. Thus he does need to undergo evaluation care for other etiologies as well that may be exacerbating his underlying cardiac condition for appropriate evaluation and treatment. 2. CAD status post PCI and CABG The patient has had a history of coronary artery revascularization as described. He underwent CABG. Later on he had PCI to his 1 remaining SVG graft to the OM distribution. At the present time again there is concern as to whether or not he is experiencing an underlying acute coronary syndrome/CAD or graft event versus being a type II event brought out by changes of acute on chronic systolic CHF and/or changes with his COPD/pulmonary status. At the moment he will continue to be monitored with follow-up cardiac enzymes and ECG. Again and noninvasive valuation is not unreasonable. Depending upon his findings and clinical course he may need to be considered for repeat evaluation in the cardiac catheterization laboratory. 3. Ischemic mediated cardiomyopathy He does have a history of a severe ischemic mediated cardiomyopathy. He has been on medical therapy. He does have an ICD in place. His overall left ventricular wall motion systolic function can be reassessed with a transthoracic echocardiogram. 4. Acute on chronic systolic mediated CHF There are concerns that he has acute on chronic systolic mediated CHF. This could bring out a type II event. At the moment he will need continued observation and evaluation as noted. He will need continued medical therapy and attempt to minimize any obvious volume overload leading to CHF. 5. ICD He does have a dual-chamber ICD in place. Based upon his previous interrogation appears to be functioning appropriately. He can be reassessed as needed. 6. Hyperlipidemia He will continue medical management. 7. Hypertension He will continue medical therapy with adjustment as needed. 8. Diabetes mellitus He will continue evaluation care per internal medicine. 9. COPD He does have a history of COPD. Certainly this can be exacerbating his underlying cardiovascular disease process. He will need continued evaluation care per internal medicine and possibly pulmonology. 10. Chronic renal insufficiency He does appear to have an element of chronic renal insufficiency. This led to be taken into consideration if he does undergo further evaluation with procedures using IV contrast such as cardiac catheterization. 11. Obesity Unfortunately the patient remains overweight/obese. This does not help with his underlying cardiopulmonary condition, etc. He has been counseled in the past with the need to bring his weight under better control. Comment: The patient's case was discussed and reviewed with the patient as well as Dr. Ortega. This note was generated using a voice recognition system and there may be incorrect words, spelling or punctuation that were not noted when reviewing the office note prior to saving.
[2020-07-16] MEDS: Albuterol 2.5 MG/3 ML VIAL.NEB. INHALATION (17:44)
--- NOTE | 2020-07-16 17:52 | ECHOCS_ITS ---
Reason For Study: CAD Procedure This was a 2D Doppler, Color Flow transthoracic echocardiogram. The study was technically difficult. Contrast injection was performed. Exam performed portable in patient room. Left Ventricle Moderately dilated left ventricle. Severe segmental systolic dysfunction (see wall motion). The estimated ejection fraction is 15 %. There is evidence of diastolic dysfunction. Anterio-Basal: Hypokinetic. Lateral-Basal: Hypokinetic. Infero-Basal: Hypokinetic. Basal inferoseptal: Hypokinetic. Basal anteroseptal: Hypokinetic. Mid-Anterior : Akinetic. Mid-Lateral : Akinetic. Mid-Posterior: Akinetic. Mid-Inferior: Hypokinetic. Mid-inferoseptal : Hypokinetic. Mid-anteroseptal : Akinetic. [place] : Akinetic. Right Ventricle Normal RV size. ICD or pacer leads identified within the right ventricle. Normal systolic function. Atria The left atrium is moderately enlarged. Normal right atrium. ICD or pacer leads identified within the right atrium. No doppler evidence for ASD. Mitral Valve There is no mitral annular calcification. Mild diffuse mitral valve thickening. Moderate (2+) mitral valve insufficiency. Tricuspid Valve Normal tricuspid valve. Mild tricuspid valve insufficiency. Right ventricular systolic pressure estimated to be 42 mmHg. Aortic Valve Trisinus/trileaflet aortic valve. Mild diffuse aortic valve thickening. Mild focal aortic valve calcification. Pulmonic Valve The pulmonic valve is not well visualized. Great Vessels Borderline to mildly enlarged aortic root. Pericardium/Pleural No pericardial effusion. Medication Diluted definity 4.0ml given slow IV push to enhance endocardial definition. MMode/2D Measurements & Calculations LVIDd: 6.3 cm IVSd: 1.1 cm LVOT diam: 2.2 cm LVIDs: 5.4 cm LVPWd: 0.99 cm RVDd: 3.7 cm FS: 13.6 % LVOT area: 4.0 cm2 Ao root diam: 3.9 cm LAV(MOD-bp): 91.6 ml LVAd ap4: 57.2 cm2 LAV(MOD-bp) Indexed: 41.4 ml/m2 EDV(MOD-sp4): 262.7 ml LAV(MOD-sp2): 101.3 ml EDV(sp4-el): 273.3 ml LAV(MOD-sp4): 83.0 ml LVAs ap4: 53.3 cm2 ESV(MOD-sp4): 234.5 ml ESV(sp4-el): 244.7 ml EF(MOD-sp4): 10.7 % EF(sp4-el): 10.5 % SV(MOD-sp4): 28.2 ml SV(sp4-el): 28.6 ml LA A4 area: 24.6 cm2 LA dimension(2D): 5.3 cm RA A4 area: 13.9 cm2 Doppler Measurements & Calculations MV E max neal: 159.2 cm/sec Lat Peak E' Neal: 4.3 cm/sec Med Peak E' Neal: 3.3 cm/sec MV A max neal: 133.1 cm/sec E/E' lat: 37.4 E/E' med: 48.9 MV E/A: 1.2 Ao V2 max: 159.7 cm/sec LV V1 max: 90.6 cm/sec TR max neal: 290.3 cm/sec Ao max P.2 mmHg LV V1 max P.3 mmHg TR max P.8 mmHg DEMETRIS(V,D): 2.2 cm2 Interpretation Summary The study was technically difficult. Contrast injection was performed. Moderately dilated left ventricle. Severe segmental systolic dysfunction (see wall motion). The estimated ejection fraction is 15 %. The left atrium is moderately enlarged. Mild diffuse mitral valve thickening. Moderate (2+) mitral valve insufficiency. Mild tricuspid valve insufficiency. Mild diffuse aortic valve thickening. Mild focal aortic valve calcification. Borderline to mildly enlarged aortic root. Right ventricular systolic pressure estimated to be 42 mmHg. There is evidence of diastolic dysfunction. Ordering Physician: Waldo Lay Referring Physician: JEFFY BECK III Performed By: Yadi Joel, KALINA, RVT
[2020-07-16] MEDS: Nitroglycerin Oint 1 INCH PACKET TD (18:27)
[2020-07-16] MEDS: Furosemide 40 MG/4 ML Vial IV (18:30)
[2020-07-16] MEDS: Acetaminophen 325 MG Tablet 650 MG PO (19:09)
[2020-07-16] MEDS: oxyCODONE 5 MG Tablet PO (19:09)
[2020-07-16] MEDS: SACUBITRIL/VALSARTAN 24/26 MG TABLET 1 EACH PO (21:08)
[2020-07-17] VITALS (18 sets, daily range): BP systolic 94–128; BP diastolic 55–70; PULSE 80–98; RESP 16–21; TEMP 36.8–37.1; O2SAT 91–98
[2020-07-17] MEDS: Nitroglycerin Oint 1 INCH PACKET TD ×3 (00:29→12:33)
[2020-07-17] MEDS: Acetaminophen 325 MG Tablet 650 MG PO ×2 (01:10→07:39)
[2020-07-17] MEDS: oxyCODONE 5 MG Tablet PO ×2 (01:11→07:39)
--- NOTE | 2020-07-17 05:55 | EKG12_ITS ---
Test Reason : Blood Pressure : / mmHG Vent. Rate : 105 BPM Atrial Rate : 105 BPM P-R Int : 158 ms QRS Dur : 118 ms QT Int : 368 ms P-R-T Axes : 068 004 141 degrees QTc Int : 486 ms Sinus tachycardia with occasional Premature ventricular complexes ICLBBB T wave abnormality, consider lateral ischemia Abnormal ECG Confirmed by BERYL LUNDBERG, MICHELLE ([id number]), supervising editor trailer HARINI STONE ([id number]) on 07/19/2020 9:05:58 AM Referred By: BERYL Confirmed By:MICHELLE CORDOBA MD
[2020-07-17] MEDS: Levothyroxine 25 MCG TABLET PO (05:56)
[2020-07-17] MEDS: Clopidogrel Bisulfate 75 MG Tablet PO (05:56)
[2020-07-17] MEDS: Aspirin E.C. 325 MG Tablet PO (05:56)
[2020-07-17 06:38] LABS: Cholesterol 146 mg/dL (200); High Density Lipoprotein 38 mg/dL; Triglycerides 353 mg/dL; Very Low Density Lipoprotein 71 mg/dL (5-40)
[2020-07-17] MEDS: Albuterol 2.5 MG/3 ML VIAL.NEB. INHALATION ×2 (07:01→15:24)
--- NOTE | 2020-07-17 09:41 | CASEMGMT ---
According to the [facility] website, the following are in-network tertiary facilities: [facility], [place], [place], [facility], [facility], [place], [facility], and . Duog HADLEY CM
--- NOTE | 2020-07-17 09:56 | PCM.PN.CARD ---
Subjectve: The patient states he feels better with respect to his respiratory symptoms. He continues to complain of chronic back discomfort. Objective: Vital Signs Temp Pulse Resp BP Pulse Ox 98.8 F 89 21 H 110/70 98 07/17/20 05:50 07/17/20 07:30 07/17/20 07:30 07/17/20 05:55 07/17/20 07:56 Oxygen Flow Rate (L/min) 3 Oxygen Delivery Method Nasal Cannula Weight: 211 lb Body Mass Index (BMI) 32.1 Finger Stick Blood Glucose 111 Intake and Output for Last 24 Hours 07/15/20 07/16/20 07/17/20 23:59 23:59 23:59 Intake Total 1305 / 1525 220 / 220 Balance 1305 / 1525 220 / 220 General: Awake, Alert, Oriented x 3, Cooperative, No Acute Distress, Obese HEENT: Atraumatic, Normocephalic, PERRL, EOMI, Sclera Non Icteric Neck: No JVD Lungs: Inspiratory Wheezes - Stone Cardiovascular: Regular Rhythm, Normal S1, Normal S2 Abdomen: Bowel Sounds Present, Soft Extremities: No edema Neurological: No Focal Motor or Sensory Deficit Psych/Mental Status: Appropriate 07/16/20 10:45: WBC 5.0, RBC 4.71, Hgb 14.9, Hct 44.3, MCV 94.1 H, MCH 31.6, MCHC 33.6, Plt Count 221, MPV 9.8, Immature Gran % (Auto) 0.200, Neut % (Auto) 62.5, Lymph % (Auto) 24.4, [place] % (Auto) 9.9, Eos % (Auto) 2.4, Baso % (Auto) 0.6, Absolute Neuts (auto) 3.1, Nucleated RBC % 0 07/16/20 10:45: PT 12.0, INR 0.9, APTT 30.1 07/16/20 10:45: Sodium 142, Potassium 3.6, Chloride 108 H, Carbon Dioxide 27.0, Anion Gap 7, BUN 24 H, Creatinine 1.59 H, Est GFR (MDRD) Af Amer 56 L, Est GFR (MDRD) Non-Af 46 L, BUN/Creatinine Ratio 15.1, Glucose 86, Calcium 8.5, Total Bilirubin 0.30, Troponin I 0.210 H 07/16/20 15:20: Troponin I 0.319 H 07/16/20 18:10: Troponin I 0.283 H 07/17/20 05:30: Triglycerides 353 H, Cholesterol 146, LDL Cholesterol 37, VLDL Cholesterol 71 H, HDL Cholesterol 38 L Rhythm: Sinus rhythm WA: One episode appearing compatible with paroxysmal atrial fibrillation; PVCs EKG: Sinus rhythm; incomplete left bundle branch block pattern ECHO: Pending Medical Necessity - Tobacco Use Smoking Status: Light Smoker (<10/day) Tobacco Use: - Assessment/Plan 1. Abnormal troponin I levels The patient does present with abnormal troponin I levels. They are indeterminant. He has had this earlier this year in August where it was felt at the time it was related to supply demand mismatch. He did not require repeat cardiac catheterization at that time. At the present time this is concerning for possible change in his underlying CAD or graft status based upon the patient's symptoms superimposed upon his cardiovascular disease history. Thus he will continue in the PCU with follow-up cardiac enzymes and ECG as deemed appropriate. He is undergoing follow-up transthoracic echocardiogram to reassess his overall left ventricular wall motion and systolic function. Based upon his symptoms, his objective findings with his troponin I levels, etc., as previously noted there is concern about his underlying CAD/graft status. Thus it was felt reasonable the patient be reassessed in the cardiac catheterization laboratory for the need for additional revascularization therapy. If this is not the case then he will need continued medical management. 2. CAD status post PCI and CABG The patient has had a history of coronary artery revascularization as described. He underwent CABG. Later on he had PCI to his 1 remaining SVG graft to the OM distribution. At the present time again there is concern as to whether or not he is experiencing an underlying acute coronary syndrome/CAD or graft event versus being a type II event brought out by changes of acute on chronic systolic CHF and/or changes with his COPD/pulmonary status. His cardiac enzymes have remained indeterminate. His echocardiogram is pending, however, based upon preliminary evaluation he continues with left ventricular regional wall motion abnormalities with diminished LV systolic function/LVEF. Again there is concern as to whether or not he has had progression of his [place] vessel or his graft vessel disease would be contributing to his symptoms and findings. As he does seem to be improved today from a respiratory standpoint it was felt reasonable to consider repeat diagnostic cardiac catheterization. The procedure and risk were discussed with him. He was agreeable to this approach. Depending upon the findings he may or may not need additional revascularization therapy versus continued medical management. 3. Ischemic mediated cardiomyopathy He does have a history of a severe ischemic mediated cardiomyopathy. He has been on medical therapy. He does have an ICD in place. His overall left ventricular wall motion systolic function can be reassessed with a transthoracic echocardiogram. 4. Acute on chronic systolic mediated CHF There are concerns that he has acute on chronic systolic mediated CHF. This could bring out a type II event. He states he does feel better today after diuretic therapy. 5. ICD He does have a dual-chamber ICD in place. Based upon his previous interrogation appears to be functioning appropriately. He can be reassessed as needed. 6. Hyperlipidemia He will continue medical management. 7. Hypertension He will continue medical therapy with adjustment as needed. 8. Diabetes mellitus He will continue evaluation care per internal medicine. 9. COPD He does have a history of COPD. Certainly this can be exacerbating his underlying cardiovascular disease process. He will need continued evaluation care per internal medicine and possibly pulmonology. 10. Chronic renal insufficiency He does appear to have an element of chronic renal insufficiency. This led to be taken into consideration if he does undergo further evaluation with procedures using IV contrast such as cardiac catheterization. 11. Obesity Unfortunately the patient remains overweight/obese. This does not help with his underlying cardiopulmonary condition, etc. He has been counseled in the past with the need to bring his weight under better control. Comment: The patient's case was discussed and reviewed with the patient as well as Dr. Dorantes. This note was generated using a voice recognition system and there may be incorrect words, spelling or punctuation that were not noted when reviewing the office note prior to saving. Procedure Criteria Procedure Type: Elective COVID Risk Discussion: The surgeon/proceduralist and patient have discussed in detail the risk of exposure to and/or potential harm posed by the COVID-19 virus with having a surgery/procedure at this time versus the risk of delaying the surgery/procedure. It is not possible to know either the risk of delaying the surgery or procedure or chance of getting an infection with perfect accuracy, but a joint decision was made between the patient and the surgeon/proceduralist to proceed at this time with the scheduled surgery/procedure as indicated on the consent form.
[2020-07-17] MEDS: 0.9% Normal Saline 1,000 ML 50 ML IV (11:47)
--- NOTE | 2020-07-17 12:01 | CL.D_ITS ---
Patient Name: LANNY WRIGHT Study Date: 07/17/2020 Performing: Waldo Lay MD Ht: 68 inches 173 cm : 1950 Wt: 211.9 lbs 96 kg Age: 70 Gender: male BSA: 2.1 PROCEDURE(S) PERFORMED CE52-URC/COR/CABG CLINICAL PROFILE AND INDICATIONS Heart Failure: NYHA Class: 3, Newly Diagnosed: No, Heart Failure Type: Systolic Stress/Imaging Stress/Image Study Performed: No Angina Classification Anginal Classification w/in 2 Weeks: CCS III CAD Presentations: Unstable angina. CONCLUSIONS Elevated Left Ventricular End Diastolic Pressure [place] Multivessel CAD HUMPHREY to LAD: previously documented as small, atretic, and occluded SVG to DX1: previously documented as occluded SVG to OM1: previous stent patent with subsequent mid 90 % stenosis and distal, pre bifurcation, hazy 75 % stenosis SVG to RCA: previously documented as occluded RECOMMENDATIONS Risk factor modification Medical therapy Referred for PCI at [facility] Case discussed at reviewed with Dr. Castrejon of interventional cardiology who subsequently recommended tra nsfer to [facility] for PCI. He discussed the case with interventional cardiology at [facility]. DESCRIPTION OF PROCEDURE The patient arrived to the procedure lab. The risks and benefits of the procedure as well as a full d escription of our services here and current unavailability of surgical backup were fully explained to the patient and/or their significant other prior to the catheterization. The Timeout was completed, verifying the correct patient and procedure. The patient's procedural site was prepped and draped in the usual fashion. Local anesthetic was given subcutaneously to right radial region with Lidocaine 2% . Using a modified Seldinger technique, arterial access was obtained via the right radial artery, a 6 Fr sheath was inserted. Left Coronary Artery selective angiography was performed in multiple views u sing a 5 Fr. 4.0 [place] catheter. Saphenous Vein graft to the OM 1 selective angiography was performed in multiple views using a 5 Fr. JR 4 catheter. LV to AO pullback pressures were then recorded.The ar terial sheath was pulled and a TR Band was applied for hemostasis. 12cc of air applied CORONARY ANGIOGRAPHY DOMINANCE: Right Dominant LEFT HEART ASSESSMENT Left Ventricular Ejection Fraction: Not assessed Elevated Left Ventricular End Diastolic Pressure LVEDP: 33 mmHg LEFT MAIN: Angiographically normal LEFT ANTERIOR DESCENDING ARTERY: PROX LAD: Moderate calcification MID LAD: is occluded with the mid to distal vessel filling late DIAGONAL 1: Proximal - is occluded with the distal vessel filling late and faintly CIRCUMFLEX ARTERY: Mild luminal irregularities MID CIRC: 50 % Stenosis RIGHT CORONARY ARTERY: not evaluated (previously documented as chronically occluded) GRAFTS: HUMPHREY graft to the Mid LAD previously documented as small, atretic, and occluded Saphenous Vein graft to the 1st Diagonal previously documented as occluded Saphenous Vein graft to the 1st OM previously placed stent is patent with subsequent mid 90 % stenosi s and distal, pre bifurcation, hazy 75 % stenosis Saphenous Vein graft to the RCA previously documented as occluded COMPLICATIONS No Complications PROCEDURE MEDICATIONS Fentanyl 50 mcg IV Versed 1 mg IV Fentanyl 50 mcg IV Oxygen: 2 L/min via nasal cannula Heparin diluted in 23cc Heparinized saline. Patient given 10cc IA of this solution. 07/17/2020 10:52 :24 Verapamil 2.5mg, Ntg 100mcgs, 2000 units of Heparin diluted in 23cc Heparinized saline. Patient give n 10cc IA of this solution. 07/17/2020 10:52:24 SUMMARY OF HEMODYNAMIC DATA Time AIR REST ECG 10:25:29 AO 91/67 (78) SA 10:52:38 LV 123/10, 35 11:11:25 LV 119/10, 33 11:11:31 LVp 116/5, 32 11:11:43 AOp 114/72 (90) 11:11:48 Signed By Waldo Lay MD On 07/17/2020 12:00:54 PM Waldo Lay MD
[2020-07-17 13:21] LABS: Partial Thromboplast Time 26.6 Seconds (24.1-36.2)
[2020-07-17] MEDS: SACUBITRIL/VALSARTAN 24/26 MG TABLET 1 EACH PO (13:49)
[2020-07-17] MEDS: oxyCODONE 5 MG Tablet 10 MG PO (13:49)
[2020-07-17] MEDS: Furosemide 40 MG/4 ML Vial IV (14:41)
[2020-07-17] MEDS: HEPARIN/D5w 25,000 UNITS 25,000 UNITS/250 ML IV.SOLN. 14 UNITS IV (14:52)
--- NOTE | 2020-07-22 08:50 | DS.PCM_ITS ---
Discharge Date and Diagnosis - Problem List Patient Problems: Active and Suspected Problems (Last Reviewed 07/16/20 @ 15:[address] Ravin Ortega DO) Elevated troponin (Acute) ARIADNA (obstructive sleep apnea) (Suspected) Date of Admission: 07/16/20 Date of Discharge: 07/17/20 - Primary Discharge Diagnosis Acute Problems: Active Problems (Last Reviewed 07/16/20 @ 15:[address] Ravin Ortega DO) #1 unstable angina #2 multivessel coronary artery disease #3 in-stent stenosis saphenous venous graft to obtuse marginal 1 #4 ischemic cardiomyopathy #5 acute on chronic systolic CHF #6 hyperlipidemia #7 essential hypertension #8 type 2 diabetes Suspected Problems: Suspected Problems (Last Reviewed 07/16/20 @ 15:[address] Ravin Ortega DO) ARIADNA (obstructive sleep apnea) (Suspected) - Secondary Discharge Diagnosis Chronic Problems: Chronic Problems (Last Reviewed 07/16/20 @ 15:[address] Ravin Ortega DO) Smoking greater than 30 pack years (Chronic) Appropriate for low-dose CT lung screening due January 2021 COPD exacerbation (Chronic) History of left heart catheterization (Chronic 07/17/20) LEFT MAIN: Angiographically normal;LEFT ANTERIOR DESCENDING ARTERY: PROX LAD: Moderate calcification MID LAD: is occluded with the mid to distal vessel filling late, DIAGONAL 1: Proximal - is occluded with the distal vessel filling late and faintly; CIRCUMFLEX ARTERY: Mild luminal irregularities, MID CIRC: 50 % Stenosis; RIGHT CORONARY ARTERY: not evaluated (previously documented as chronically occluded); GRAFTS: HUMPHREY graft to the Mid LAD previously documented as small, atretic, and occluded; Saphenous Vein graft to the 1st Diagonal previously; documented as occluded; Saphenous Vein graft to the 1st OM previously placed stent is patent with subsequent mid 90 % stenosis and distal, pre bifurcation, hazy 75 % stenosis; Saphenous Vein graft to the RCA previously documented as occluded - per cardiac cath 07/17/20 - LVEF: by LV gram 15-20 %; [place] Multivessel CAD; Occluded [place] mid LAD. Occluded [place] proximal RCA. Occluded SVG to DIAG. Occluded SVG to RCA. Occluded HUMPHREY to LAD. Severe 85% stenosis in last remaining vessel of SVG to LCX with widely patent SVG stents. Severe LV dysfunction. Referred for immediate PCI: Will tx to [facility] for high risk PCI to last remaining vessel of SVG to OM. 06/29/[address]ACKIEN @ [facility] Hypoxia, sleep related (Chronic) Coarse tremors (Chronic) Headache (Chronic) COPD (chronic obstructive pulmonary disease) (Chronic) FEV1 64% of predicted Obesity (BMI 30.0-34.9) (Chronic) Nicotine dependence (Chronic) Gout (Chronic) Degenerative cervical disc (Chronic) Chronic back pain (Chronic) Presence of automatic implantable cardioverter-defibrillator (Chronic) H/O coronary artery bypass surgery (Chronic ~2008) HUMPHREY-LAD, SVG-D1, SVG-OM Chronic renal failure, stage 3 (moderate) (Chronic) Chronic systolic (congestive) heart failure (Chronic) Stented coronary artery (Chronic ~12/2016) has had 7 stents as of 06/15/17 Ischemic cardiomyopathy (Chronic) 25% ejection fraction in November 2016 V-tach (Chronic) has an AICD Benign essential hypertension (Chronic) Gastroesophageal reflux disease (Chronic) Hyperlipidemia (Chronic) Type 2 diabetes mellitus (Chronic) Morbid obesity (Chronic) CAD (coronary artery disease) (Chronic) Hospital Course and Treatment Operations: None Procedures: 2-D Echocardiogram, Cardiac catheterization Summary of Care Provided: The patient is a 70 year old M seen in the emergency room at [facility] with chief complaint of headache and back pain. Work-up in the emergency room included an EKG which showed a sinus rhythm at [address]-T wave changes, chest x-ray showed a right lower lobe infiltrate as well as a right perihilar infiltrate. Troponin was elevated at 0.21, COVID- 19 testing was negative. Patient was placed in observation status in PCU, his troponins remained elevated and he was seen by professional healthcare representative who recommended a heart catheterization, this was carried out which showed multivessel coronary disease and an in-stent stenosis which required transfer to another hospital to address. On 07/17/2020, patient was seen and examined: On examination he appeared in good health and spirits. Vital signs as documented. Skin warm and dry and without overt rashes. Neck without JVD, neck was supple, trachea midline, thyroid was normal. Lungs clear bilaterally, normal air movement was noted. Heart exam notable for regular rhythm, normal sounds and absence of murmurs, rubs or gallops. Abdomen unremarkable and without evidence of organomegaly, masses, or abdominal aortic enlargement. Bowel sounds are present, abdomen is not distended. Extremities nonedematous, no cyanosis was noted, no clubbing was noted. Neuro: Cranial nerves II through XII are grossly intact, no focal motor deficits were noted, sensation to light touch and pinprick intact, motor exam 5/5 throughout. Psych: Patient is alert and oriented x3, he does not appear anxious or depressed, he does not appear agitated. Patient appears stable on 07/17/2020 transfer to an acute care hospital for further care. Patient Problems: Active and Suspected Problems (Last Reviewed 07/16/20 @ 15:[address] Ravin Ortega, DO) Elevated troponin (Acute) ARIADNA (obstructive sleep apnea) (Suspected) - Physical Exam Vitals/I&O's: Vital Signs Temp Pulse Resp BP Pulse Ox 98.3 F 88 20 H 102/68 94 07/17/20 14:30 07/17/20 15:53 07/17/20 15:53 07/17/20 14:30 07/17/20 14:30 Oxygen Flow Rate (L/min) 2 Oxygen Delivery Method Nasal Cannula Weight: 95.708 kg Body Mass Index (BMI) 32.1 Finger Stick Blood Glucose 111 Microbiology Past 72 Hours 07/16/20 13:20 Blood Culture (Wb) - Left Hand Blood Culture - Final No growth in 5 days. 07/16/20 13:12 Blood Culture (Wb) - Right Wrist Blood Culture - Final No growth in 5 days. Home Medications: Medications to take at Discharge Pantoprazole Sodium [Protonix] 40 mg PO DAILY 11/15/17 Rosuvastatin Calcium [Crestor] 40 mg PO DAILY 06/16/18 Clopidogrel Bisulfate [Plavix] 75 mg PO DAILY 09/01/18 Allopurinol 300 mg PO DAILY 09/20/18 Nitroglycerin 0.4 mg SL PRN PRN 12/01/18 Albuterol Inhaler [Ventolin Hfa] 2 puff INHALATION Q4H PRN PRN 02/24/19 Oxycodone HCl/Acetaminophen [Oxycodon-Acetaminophen 7.5-325] 1 tab PO Q6H PRN 05/02/19 aspirin 325 mg tablet,delayed release 325 mg PO DAILY 10/05/19 Carvedilol [Coreg (Beta Sina)] 6.25 mg PO BID 10/19/19 Furosemide [Lasix] 40 mg PO BID@1000,1800 10/19/19 Glimepiride [Amaryl] 1 mg PO DAILY 10/19/19 Levothyroxine [Synthroid] 25 mcg PO DAILY@0600 10/19/19 sacubitril 24 mg-valsartan 26 mg tablet 1 tab PO BID #60 tab 12/21/19 umeclidinium 62.5 mcg-vilanterol 25 mcg/actuation powdr for inhalation 1 inh INHALATION Q24H #1 ea 07/19/20 Primary Care Physician: Juan De La Vega III, MD [Primary Care Provider] - Disposition: Acute care Hospital Minutes spent on discharge:: 30 Patient Condition:: Stable Medical Necessity - Tobacco Use Smoking Status: Light Smoker (<10/day) Tobacco Use: - Meaningful Use Info Meaningful Use Diagnoses (Choose all that apply): None applicable OBSV E&M: 98821 Observation care discharge
== END 2020-07-17 16:39 | disposition short-term general hospital (02) ==
LOC: ED 11:02 → PCU 15:56
PROVIDERS: Internal Medicine Cardiovascular Disease; Emergency Provider Emergency Medicine; PCP Family Medicine; Visit Provider Internal Medicine
DX: I25.810 Atherosclerosis of coronary artery bypass graft(s) without angina pectoris (principal); F17.210 Nicotine dependence, cigarettes, uncomplicated; J44.9 Chronic obstructive pulmonary disease, unspecified; G47.33 Obstructive sleep apnea (adult) (pediatric); E66.9 Obesity, unspecified; Z68.32 Body mass index [BMI] 32.0-32.9, adult; N18.30 Chronic kidney disease, stage 3 unspecified; I50.23 Acute on chronic systolic (congestive) heart failure; I13.0 Hypertensive heart and chronic kidney disease with heart failure and stage 1 through stage 4 chronic kidney disease, or unspecified chronic kidney disease; E11.22 Type 2 diabetes mellitus with diabetic chronic kidney disease; K21.9 Gastro-esophageal reflux disease without esophagitis; M10.9 Gout, unspecified; I25.5 Ischemic cardiomyopathy; G89.29 Other chronic pain; E78.5 Hyperlipidemia, unspecified; I25.2 Old myocardial infarction; F17.220 Nicotine dependence, chewing tobacco, uncomplicated; Z79.899 Other long term (current) drug therapy; Z79.84 Long term (current) use of oral hypoglycemic drugs; Z79.02 Long term (current) use of antithrombotics/antiplatelets; Z95.810 Presence of automatic (implantable) cardiac defibrillator; Z95.1 Presence of aortocoronary bypass graft; I08.1 Rheumatic disorders of both mitral and tricuspid valves
CPT/HCPCS: 36415; 70450; 71045; 80053; 80061; 84484; 85025; 85610; 85730; 87040; 87426; 87449; 93005; 93306; 93455; 94640; 96365; 96366; 96367; 96375; 96376; 99152; 99153; 99218; 99285; J7030; J7040; Q9957; A4216; C1769; C1894; C8929; G0378; J0696; J1940; J2405; Q9967

== ENCOUNTER 2020-08-16 16:00 | Inpatient (IN) | payer MEDICARE, MEDICAID, SELFPAY ==
[2020-07-16 16:01] VITALS: BMI 32.1
[2020-08-16] VITALS (11 sets, daily range): BP systolic 97–138; BP diastolic 66–90; PULSE 87–101; RESP 15–26; TEMP 36.1–36.8; O2SAT 93–98; BMI 33.0; BMI 30.2; BMI 30.3
--- NOTE | 2020-08-16 16:21 | CT_ITS ---
We are attempting to reach an attending provider to discuss findings. An addendum with communication details will be sent when the communication is complete. STUDY: CT HEAD STROKE PROTOCOL W/O CONTRAST INJECTION REASON FOR EXAM: Male, 70 years old. DIZZINESS X FEW DAYS RADIATION DOSAGE (If Supplied By Facility): CTDIvol = ( 44.99 ) mGy, DLP = ( 829.85 ) mGycm TECHNIQUE: Transaxial CT imaging of the brain was performed without administration of intravenous contrast material. Individualized dose optimization techniques were used for this CT. COMPARISON: 07/16/2020 FINDINGS: Normal soft tissue structures. Normal calvarium. Calcification of cavernous carotids. Mild atrophy and periventricular white matter ischemic changes.. Focal encephalomalacia high in left parietal lobe Normal basal ganglia and thalami. Normal brainstem. Normal cerebellum. Empty sella deformity likely of no significance. There is no intracranial hemorrhage. There are no findings of an acute ischemic infarction. Minor mucosal thickening left maxillary and bilateral ethmoid air cells. No significant change since prior exam CT/STROKE Brain/Head without Cont IMPRESSION: Atrophy and periventricular white matter ischemic changes with without evidence for acute bleed. If concern for acute infarct MRI recommended Electronically Signed: Warner Brown MD at 17:46 EST , Service support ,
--- NOTE | 2020-08-16 16:21 | EKG12_ITS ---
Test Reason : DIZZINESS Blood Pressure : / mmHG Vent. Rate : 091 BPM Atrial Rate : 091 BPM P-R Int : 156 ms QRS Dur : 122 ms QT Int : 388 ms P-R-T Axes : 047 -03 118 degrees QTc Int : 477 ms Sinus rhythm with occasional Premature ventricular complexes and Premature atrial complexes Possible Left atrial enlargement Cannot rule out Anterior infarct , age undetermined Abnormal ECG Confirmed by BERYL LUNDBERG, MICHELLE ([id number]), scientific publications editor HARINI STONE ([id number]) on 08/21/2020 10:42:42 AM Referred By: THADDEUS Confirmed By:MICHELLE CORDOBA MD
[2020-08-16] MEDS: Ipratropium/Albuterol Sulfate 3 ML AMPUL.NEB INHALATION (16:40)
--- NOTE | 2020-08-16 16:48 | RAD_ITS ---
STUDY: X-RAY CHEST REASON FOR EXAM: Male, 70 years old. DIZZINESS FOR A FEW DAYS, RECENT CARDIAC STENTS PLACED TECHNIQUE: AP portable COMPARISON: 07/16/2020. FINDINGS: There is prominence of markings in both upper and lower lobes. More focal consolidation seen in the right upper and lower lobes suspicious for pneumonia. There is no demonstrated pleural abnormality. Postop change status post median sternotomy and CABG. Normal size heart. Normal mediastinum and serjio. Normal visualized pulmonary arteries. Normal visualized aortic arch and descending thoracic aorta. Pacer noted on the left with electrodes in satisfactory position. Dorsal spine demonstrates degenerative change. Normal visualized ribs, clavicles, and shoulders. There is no demonstrated abnormality of the visualized soft tissue structures of the upper abdomen. RAD/Chest 1 View IMPRESSION: Findings suggestive of mild congestive failure however cannot exclude coexisting pneumonia. Clinical correlation recommended Electronically Signed: Warner Brown MD at 18:20 EST , Service support ,
--- NOTE | 2020-08-16 16:58 | ED.DCSUM_ITS ---
- ER Visit Summary Date of Service: 08/16/20 Chief Complaint: Shortness of breath and vertigo History of Present Illness: The patient is a [address] Juan De La Vega and Dr. Lay. He is a poor informant. He reports that he has slurred speech that began yesterday. States that he also has dizziness that he describes as I feel like I am drunk. Also admits to blurred vision. He reports has had paresthesias in his left hand for the past 2 days. Patient reports that he has had a nonproductive cough for the past 2 days with shortness of breath. He denies sick contacts. He does wear a mask. No fever or chills. He reports yesterday he was nauseated and vomited. He is not today. Physical Examination: Vitals: Stable. Afebrile. General: Well-nourished and well-developed. Head: Normocephalic atraumatic. Neck: Supple, no lymphadenopathy. No JVD. Nontender. Dry mucous membranes. Cardiovascular: Regular rate and rhythm. 2 out of 6 systolic murmur no murmurs. Respiratory: No respiratory distress. Mild wheezing bilaterally with good air movement ilaterally. Abdominal: Soft, nontender, nondistended, normal bowel sounds. No guarding, rebound, or peritoneal signs. Back: Nontender. Extremities: Nontender, no edema. Skin: Normal color, no rash. Neurologic: Alert and oriented ?3. Cranial nerves II through XII are intact. Normal strength. Decreased sensation to light touch left upper and lower extremities. No hemineglect. He does have slurred speech. His NIH scale is 3. Psych: Normal affect. Test Results: Did attempt to obtain an EKG, but the patient could not hold still enough for a reasonable EKG. EKG is sinus at [address] changes. He has T wave inversions in leads I and aVL. There are PACs and PVCs. However this is unchanged from July 262019. Troponin 0 0.136. Lactic acid is 1.6. INR is 1.0. PTT is 30.5. Chem-7 shows a sodium 134, potassium 3.4, BUN of 45, creatinine 4.52, glucose of 31. Creatinine ranged between 1.03?2.29 and 2019. CBC shows a white count of 22 with segmented neutrophils 91 lymphocytes of 4. Clinical Impression(s) from Imaging Studies Brain CT 08/16/20 16:21 IMPRESSION: Atrophy and periventricular white matter ischemic changes with without evidence for acute bleed. If concern for acute infarct MRI recommended Electronically Signed: Warner Brown MD at 17:46 EST , Service support , ADDENDUM: 08/16/20 1754 IMPRESSION: Atrophy and periventricular white matter ischemic changes with without evidence for acute bleed. If concern for acute infarct MRI recommended N.B. : The above information has been verbally conveyed by Warner Brown MD to Lyndon Huynh MD, on 08/16/2020 17:47:56 (ET). Electronically Signed: Warner Brown MD at 17:46 EST , Service support , Chest X-Ray 08/16/20 16:48 IMPRESSION: Findings suggestive of mild congestive failure however cannot exclude coexisting pneumonia. Clinical correlation recommended Electronically Signed: Warner Brown MD at 18:20 EST , Service support , Emergency Department Course and Treatment: Patient was treated albuterol Atrovent aerosols. He was given Solu-Medrol and Zofran IV. Patient became increasing confused and combative in the emergency department. He required multiple nurses for restraint. He was given a dose of Geodon IM and is now resting more comfortably. When the patient sugar returned he was given an amp of D50 IV. Repeat glucose is 190. He was given Rocephin and Zithromax IV. In my opinion the chest x-ray is consistent with pneumonia. Treatment Plan: Patient was discussed with Dr. Lara. He will be admitted the hospital for further evaluation and treatment. Disposition: Admitted in serious condition. Impression: 1. Hyperglycemia with history of [id number] diabetes mellitus. 2. Acute kidney injury. 3. Pneumonia. This note was generated with [employer] software. It may contain incorrect words, spelling, and punctuation that were not noted in review of the chart prior to signing ED Disposition - Plan for ED Patient: Referrals: Juan De La Vega III, MD [Primary Care Provider] -
[2020-08-16] MEDS: Ondansetron 4 MG/2 ML Vial IV (17:17)
[2020-08-16] MEDS: MethylPREDNISolone 125 MG/2 ML Vial IV (17:18)
[2020-08-16] MEDS: Ziprasidone IM 20 MG/ML VIAL IM (17:18)
[2020-08-16 17:29] LABS: Absolute Lymphocyte Count 0.88 X10^3/uL (0.83-4.51); Absolute Neutrophil Count 20.1 X10^3/uL (2.0-7.7); Basophil# 0.03 X10^3/uL; Basophil% 0.1 % (0-1); Eosinophil# 0.01 X10^3/uL; Hematocrit 45.2 % (40-54); Hemoglobin 15.5 g/dL (13.0-16.5); Lymphocyte # 0.88 X10^3/ul (4.0); Mean Corp Hgb Conc 34.3 g/dL (32-36); Mean Corpuscular Hgb 30.6 pg (27.0-32.0); Mean Corpuscular Volume 89.2 fL (80-94); Mean Platelet Vol. 9.6 fl (6.2-12.0); Monocyte# 0.87 X10^3/uL; Monocyte% 3.9 % (0-10); NRBC Flagged by Analyzer 0 % (0-5); Neutrophil # 20.09 X10^3/uL (2.7-7.7); Neutrophil % 91.3 % (47-70); POSITIVE DIFFERENTIAL YES; Platelet Count 216 K/mm3 (150-450); RBC Distribution Width CV 14.6 % (11.6-14.6); Red Blood Count 5.07 M/mm3 (4.6-6.2)
[2020-08-16 17:46] LABS: Partial Thromboplast Time 30.5 Seconds (24.1-36.2); Prothrombin Time (Protime)PT. 12.5 SECONDS (11.7-14.9)
[2020-08-16] MEDS: Ceftriaxone 1 GM/50 ML BAG IV (18:02)
[2020-08-16 18:03] LABS: Anion Gap 15 (5-15); BUN 45 mg/dL (7-18); Calcium,Total 7.7 mg/dL (8.5-10.1); Chloride 98 mmol/L (98-107); Creatinine, Serum 4.52 mg/dL (0.70-1.30); EST Glomerular Filtration Rate 14 mL/min (>60); Est Glom Filt Rate - Afr Amer 17 mL/min (>60); Estimated Creatinine Clearance 14.92 ml/min; Glucose 31 mg/dL (74-106); Potassium 3.4 mmol/L (3.5-5.1); Sodium Level 134 mmol/L (136-145)
[2020-08-16] MEDS: Dextrose 50%-Water 25 GM/50 ML DISP.SYRIN IV (18:07)
[2020-08-16 18:14] LABS: Differential Indicated SCAN CRITERIA MET
[2020-08-16 18:18] LABS: Differential Comment @SLIDE SCANNED; Platelet Estimate ADEQUATE (ADEQ); Red Cell Morphology NORM C+C NORMAL (NORM C&C)
[2020-08-16 18:36] LABS: Lactic Acid 1.6 mmol/L (0.4-1.9)
[2020-08-16 18:55] LABS: Bedside Glucose 195 mg/dL (70-110)
--- NOTE | 2020-08-16 19:44 | HP.PCM_ITS ---
Problem List (1) Elevated troponin Status: Acute (2) Smoking greater than 30 pack years Status: Chronic Comment: Appropriate for low-dose CT lung screening due January 2021 (3) ARIADNA (obstructive sleep apnea) Status: Chronic (4) COPD (chronic obstructive pulmonary disease) Status: Chronic Qualifiers: Chronic bronchitis type: unspecified Comment: FEV1 64% of predicted (5) Obesity (BMI 30.0-34.9) Status: Chronic (6) Nicotine dependence Status: Chronic Qualifiers: Substance use status: unspecified nicotine-induced disorder (7) Chronic back pain Status: Chronic Qualifiers: Back pain location: back pain in unspecified location (8) Chronic systolic (congestive) heart failure Status: Chronic (9) Benign essential hypertension Status: Chronic (10) Gastroesophageal reflux disease Status: Chronic Qualifiers: Esophagitis presence: esophagitis presence not specified Qualified Code(s): K21.9 - Gastro-esophageal reflux disease without esophagitis (11) Hyperlipidemia Status: Chronic Qualifiers: Hyperlipidemia type: unspecified Qualified Code(s): E78.5 - Hyperlipidemia, unspecified (12) Type 2 diabetes mellitus Status: Chronic Qualifiers: Diabetes mellitus skilled nursing insulin use: without skilled nursing use Diabetes mellitus complication status: with other specified complication Qualified Code(s): E11.69 - Type 2 diabetes mellitus with other specified complication (13) CAD (coronary artery disease) Status: Chronic Qualifiers: Coronary Disease-Associated Artery/Lesion type: unspecified vessel or lesion type [place] vs. transplanted heart: [place] heart History of Present Illness Date of Admission: 08/16/20 Chief Complaint: Shortness of breath, dizziness, paresthesia, hypoglycemia - 2days The patient is a 70 year old M with past medical history of CAD status post CABG, status post stents, hypertension, hyperlipidemia, status post AICD, type II DM comes into the ED with multiple complaints including slurred speech which started a day before admission, paresthesia, vertigo. Patient also complains of chest discomfort as well as shortness of breath. He stated that he had 2 stents placed recently in [facility]. He denied any dizziness or palpitations no nausea or vomiting. Denied any fever or chills or loss of smell or taste. Patient stated that he has a poor appetite and did not eat at all 2 days ago because he was not feeling hungry. He denied any sick contacts. He denied any diarrhea. He uses oxygen about 2 L at night only. He continues to smoke less than half a pack of cigarettes a day Vitals in the ED showed temperature of 97F, heart rate 94, blood pressure 138/90, respiratory rate was 20, SPO2 is 97% on 3 L of oxygen. WBC count is 22.0, hemoglobin 15.5, platelet count 216, INR 1.0, sodium is 134, potassium 3.4, chloride 98, bicarbonate 21, BUN 45, creatinine 4.52, just creatinine was 1.59, glucose is 31, lactic acid 1.6, troponin 0.136. His COVID-19 antigen was negative, CT scan of the brain showed atrophy and periventricular white matter ischemic changes. Chest x-ray was suggestive of mild CHF/pneumonia Past Medical History Past Medical History (Chronic Problems): Chronic Problems (Last Reviewed 07/16/20 @ 15:[address] Ravin Ortega, ) Smoking greater than 30 pack years (Chronic) Appropriate for low-dose CT lung screening due January 2021 COPD exacerbation (Chronic) History of left heart catheterization (Chronic 07/17/20) LEFT MAIN: Angiographically normal;LEFT ANTERIOR DESCENDING ARTERY: PROX LAD: Moderate calcification MID LAD: is occluded with the mid to distal vessel filling late, DIAGONAL 1: Proximal - is occluded with the distal vessel filling late and faintly; CIRCUMFLEX ARTERY: Mild luminal irregularities, MID CIRC: 50 % Stenosis; RIGHT CORONARY ARTERY: not evaluated (previously documented as chronically occluded); GRAFTS: HUMPHREY graft to the Mid LAD previously documented as small, atretic, and occluded; Saphenous Vein graft to the 1st Diagonal previously; documented as occluded; Saphenous Vein graft to the 1st OM previously placed stent is patent with subsequent mid 90 % stenosis and distal, pre bifurcation, hazy 75 % stenosis; Saphenous Vein graft to the RCA previously documented as occluded - per cardiac cath 07/17/20 - LVEF: by LV gram 15-20 %; [place] Multivessel CAD; Occluded [place] mid LAD. Occluded [place] proximal RCA. Occluded SVG to DIAG. Occluded SVG to RCA. Occluded HUMPHREY to LAD. Severe 85% stenosis in last remaining vessel of SVG to LCX with widely patent SVG stents. Severe LV dysfunction. Referred for immediate PCI: Will tx to [facility] for high risk PCI to last remaining vessel of SVG to OM. 06/29/19 per DANA @ [facility] Hypoxia, sleep related (Chronic) Coarse tremors (Chronic) Headache (Chronic) ARIADNA (obstructive sleep apnea) (Chronic) COPD (chronic obstructive pulmonary disease) (Chronic) FEV1 64% of predicted Obesity (BMI 30.0-34.9) (Chronic) Nicotine dependence (Chronic) Gout (Chronic) Degenerative cervical disc (Chronic) Chronic back pain (Chronic) Presence of automatic implantable cardioverter-defibrillator (Chronic) H/O coronary artery bypass surgery (Chronic ~2008) HUMPHREY-LAD, SVG-D1, SVG-OM Chronic renal failure, stage 3 (moderate) (Chronic) Chronic systolic (congestive) heart failure (Chronic) Stented coronary artery (Chronic ~12/2016) has had 7 stents as of 06/15/17 Ischemic cardiomyopathy (Chronic) 25% ejection fraction in November 2016 V-tach (Chronic) has an AICD Benign essential hypertension (Chronic) Gastroesophageal reflux disease (Chronic) Hyperlipidemia (Chronic) Type 2 diabetes mellitus (Chronic) Morbid obesity (Chronic) CAD (coronary artery disease) (Chronic) Medical History: Medical History (Last Reviewed 07/16/20 @ 15:[address] Ravin Ortega, DO) Nicotine dependence (Chronic) F17.200 Gout (Chronic) M10.9 Degenerative cervical disc (Chronic) M50.30 Chronic back pain (Chronic) M54.9, G89.29 Chronic renal failure, stage 3 (moderate) (Chronic) N18.3 Chronic systolic (congestive) heart failure (Chronic) I50.22 Ischemic cardiomyopathy (Chronic) I25.5 25% ejection fraction in November 2016 V-tach (Chronic) I47.2 has an AICD Benign essential hypertension (Chronic) I10 Gastroesophageal reflux disease (Chronic) K21.9 Hyperlipidemia (Chronic) E78.5 Type 2 diabetes mellitus (Chronic) E11.9 Morbid obesity (Chronic) E66.01 CAD (coronary artery disease) (Chronic) I25.10 Tubular adenoma of colon (Inactive) D12.6 Allergies chlorpromazine HCl [From Thorazine] Allergy (Severe, Verified 08/16/20 16:11) Hives PER PATIENT tramadol HCl [From Ultram] Allergy (Severe, Verified 08/16/20 16:11) Hives PER PATIENT codeine Allergy (Intermediate, Verified 08/16/20 16:11) Hives atorvastatin Adverse Reaction (Intermediate, Verified 08/16/20 16:11) LEG PAIN/CRAMPS LEG PAIN/CRAMPS cyclobenzaprine [From Flexeril] Adverse Reaction (Verified 08/16/20 16:11) Upset Stomach metformin Adverse Reaction (Verified 08/16/20 16:11) Upset Stomach naproxen Adverse Reaction (Verified 08/16/20 16:11) Upset Stomach promethazine [From Phenergan] Adverse Reaction (Verified 08/16/20 16:11) CONFUSION CONFUSION Home Medications: Ambulatory Orders Medication Instructions Recorded Pantoprazole Sodium [Protonix] 40 mg PO DAILY 11/15/17 Rosuvastatin Calcium [Crestor] 40 mg PO DAILY 06/16/18 Clopidogrel Bisulfate [Plavix] 75 mg PO DAILY 09/01/18 Allopurinol 300 mg PO DAILY 09/20/18 Nitroglycerin 0.4 mg SL PRN PRN 12/01/18 Albuterol Inhaler [Ventolin Hfa] 2 puff INHALATION Q4H PRN PRN 02/24/19 Oxycodone HCl/Acetaminophen 1 tab PO Q6H PRN 05/02/19 [Oxycodon-Acetaminophen 7.5-325] aspirin 325 mg tablet,delayed 325 mg PO DAILY 10/05/19 release Carvedilol [Coreg (Beta Sina)] 6.25 mg PO BID 10/19/19 Furosemide [Lasix] 40 mg PO BID@1000,1800 10/19/19 Glimepiride [Amaryl] 1 mg PO DAILY 10/19/19 Levothyroxine [Synthroid] 25 mcg PO DAILY@0600 10/19/19 sacubitril 24 mg-valsartan 26 mg 1 tab PO BID #60 tab 12/21/19 tablet umeclidinium 62.5 mcg-vilanterol 1 inh INHALATION Q24H #1 ea 07/19/20 25 mcg/actuation powdr for inhalation Isosorbide Mononitrate [Isosorbide 30 mg PO DAILY 08/16/20 Mononitrate ER] Surgical History: Surgical History (Last Updated 07/17/20 @ 13:59 by Nafisa Coleman) History of left heart catheterization (Chronic) Onset Date: 07/17/20 Z98.890 LEFT MAIN: Angiographically normal;LEFT ANTERIOR DESCENDING ARTERY: PROX LAD: Moderate calcification MID LAD: is occluded with the mid to distal vessel filling late, DIAGONAL 1: Proximal - is occluded with the distal vessel filling late and faintly; CIRCUMFLEX ARTERY: Mild luminal irregularities, MID CIRC: 50 % Stenosis; R IGHT CORONARY ARTERY: not evaluated (previously documented as chronically occluded); GRAFTS: HUMPHREY graft to the Mid LAD previously documented as small, atretic, and occluded; Saphenous Vein graft to the 1st Diagonal previously; documented as occluded; Saphenous Vein graft to the 1st OM previously placed stent is patent with subsequent mid 90 % stenosis and distal, pre bifurcation, hazy 75 % stenosis; Saphenous Vein graft to the RCA previously documented as occluded - per cardiac cath 07/17/20 - LVEF: by LV gram 15-20 %; [place] Multivessel CAD; Occluded [place] mid LAD. Occluded [place] proximal RCA. Occluded SVG to DIAG. Occluded SVG to RCA. Occluded HUMPHREY to LAD. Severe 85% stenosis in last remaining vessel of SVG to LCX with widely patent SVG stents. Severe LV dysfunction. Referred for immediate PCI: Will tx to [facility] for high risk PCI to last remaining vessel of SVG to OM. 06/29/19 per DANA @ [facility] Presence of automatic implantable cardioverter-defibrillator (Chronic) Z95.810 H/O coronary artery bypass surgery (Chronic) Onset Date: ~2008 Z95.1 HUMPHREY-LAD, SVG-D1, SVG-OM Stented coronary artery (Chronic) Onset Date: ~12/2016 has had 7 stents as of 06/15/17 Hx of hernia repair (Inactive) Z98.890, Z87.19 Previous back surgery (Inactive) Z98.890 Surgical History: angioplasty - stents x 10, coronary bypass surgery, - - AICD placement, back surgery x 2, hernia repair, PCI. Psychiatric History: No pertinent psych hx Lives: Spouse/ Significant Other Smoking Status: Current every day smoker Tobacco Use: Cigarettes Alcohol: None Drugs: None - *Family History Paternal Family History: Family History (Last Reviewed 07/16/20 @ 15:[address] Ravin Ortega DO) Brother CAD (coronary artery disease) Myocardial infarction Sudden cardiac Mother Cancer Hypertension Father Cancer COPD (chronic obstructive pulmonary disease) History Items: Cancer, Heart Disease Maternal Family History: Family History (Last Reviewed 07/16/20 @ 15:[address] Ravin Ortega DO) Brother CAD (coronary artery disease) Myocardial infarction Sudden cardiac Mother Cancer Hypertension Father Cancer COPD (chronic obstructive pulmonary disease) History Items: Cancer - lung, Hypertension, - - Patient notes a paternal family history of chronic lung disease, lung cancer with history of tobacco use. Review of Systems Constitutional: Reports: Anorexia, Chills, Malaise, Weakness, Fatigue. Denies: Fever, Weight Change Eyes: Denies: Blurred vision, Cataracts, Conjunctivae Inflammation HEENT: Denies: Difficulty Hearing, Difficulty Swallowing, Head Aches, Hearing Changes, Sinus Congestion, Sinus Drainage Cardiovascular: Reports: Chest Pain. Denies: Claudication, Light Headedness, Orthopnea, Palpitations Respiratory: Reports: Cough, Shortness of Breath, Shortness of breath at rest, Shortness of breath upon exertion, Sputum production, Wheezing. Denies: Hemoptysis Gastrointestinal: Denies: Abdominal Pain, Constipation, Hematemesis, Hematochezia, Nausea, Vomiting Genitourinary: Denies: Dysuria, Frequency, Incontinence, Nocturia Musculoskeletal: Denies: Joint Pain, Joint stiffness, Joint swelling, Joint Tenderness Skin: Denies: Pruritis, Rash, Wounds Neurological: Denies: Difficulty swallowing, Focal weakness, Numbness, Tingling Psychiatric: Denies: Anxiety, Depression, Homicidal Ideations, Suicidal Ideations Hematologic/ Lymphatic: Denies: Easy Bruising, Easy Bleeding VTE Information - Inpt Only VTE Present on Admission: No VTE Pharm Prophylaxis ordered?: Yes Patient Problems: Active and Suspected Problems (Last Reviewed 07/16/20 @ 15:[address] Ravin Ortega DO) Elevated troponin (Acute) - Physical Exam Vitals/I&O's: Vital Signs Temp Pulse Resp BP Pulse Ox 97.8 F 87 18 99/67 96 08/16/20 19:17 08/16/20 19:17 08/16/20 19:17 08/16/20 19:17 08/16/20 19:17 Oxygen Flow Rate (L/min) 2 Oxygen Delivery Method Nasal Cannula Weight: 98.5 kg Body Mass Index (BMI) 33.0 Finger Stick Blood Glucose 195 Intake and Output for Last 24 Hours 08/14/20 08/15/20 08/16/20 23:59 23:59 23:59 Intake Total 305 / 305 Balance 305 / 305 General: Alert, Oriented x3, Cooperative, No apparent distress HEENT: Atraumatic, PERRLA, EOMI, Normocephalic Oral: Dry Mucosa Neck: Supple Lungs: Diminished, Wheezes Cardiovascular: Regular rate, Regular Rhythm, Normal S1, Normal S2, No murmurs Abdomen: Bowel Sounds Present, Soft, Non Tender, Non-Distended, No Hepato- splenomegaly Extremities: Edema - Bilateral pedal edema +1, chronic venous stasis changes with hardening of the skin Skin: No rashes Musculoskeletal: No Tenderness to Palpation of Joints or Extremities Lymphatic: No Cervical, Supraclavicular, or Inguinal Adenopathy Neurological: Cranial nerves II-XII grossly intact, Neuro grossly intact Psych/Mental Status: Normal Affect, Appropriate Microbiology Past 72 Hours 08/16/20 17:15 Mucosa - Nose SARS-CoV-2 Antigen (Rapid) - Final Laboratory Results 08/16/20 17:13: WBC 22.0 H, RBC 5.07, Hgb 15.5, Hct 45.2, MCV 89.2, MCH 30.6, MCHC 34.3, RDW Std Deviation 47.0 H, RDW Coeff of Maggie 14.6, Plt Count 216, MPV 9.6, Immature Gran % (Auto) 0.700, Neut % (Auto) 91.3 H, Lymph % (Auto) 4.0 L, [place] % (Auto) 3.9, Eos % (Auto) 0.0, Baso % (Auto) 0.1, Absolute Neuts (auto) 20.1 H, Absolute Lymphs (auto) 0.88, Nucleated RBC % 0, Differential Comment @SLIDE SCANNED, Platelet Estimate ADEQUATE, RBC Morphology NORM C+C 08/16/20 17:13: PT 12.5, INR 1.0, APTT 30.5 08/16/20 17:13: Sodium 134 L, Potassium 3.4 L, Chloride 98, Carbon Dioxide 21.0, Anion Gap 15, BUN 45 H, Creatinine 4.52 H, Estim Creat Clear Calc 14.92, Est GFR (MDRD) Af Amer 17 L, Est GFR (MDRD) Non-Af 14 L, BUN/Creatinine Ratio 10.0, Glucose 31 L*, Calcium 7.7 L, Troponin I 0.136 H 08/16/20 17:49: Lactic Acid 1.6 08/16/20 18:51: POC Glucose 195 H Current Medications Labetalol HCl (Labetalol (Prefilled) 20 Mg/4 Ml) 20 mg IV X1 PRN PRN Reason: BLOOD PRESSURE Assessment/Plan All Active Problems (Last Reviewed 07/16/20 @ 15:[address] Ravin Ortega, DO) Elevated troponin (Acute) COPD exacerbation (Resolved) Cardiac enzymes elevated (Resolved) 1. Acute recurrent hypoglycemia secondary to use of oral hypoglycemics in the context of JILLIAN Blood sugar on admission was 39 Patient presented with neurological symptoms that have since resolved Amaryl on hold, will continueto be elevated trend blood sugars 2. JILLIAN on CKD stage III, creatinine is between 1.3-1.8, likely prerenal from cardiorenal He was admitted creatinine 4.52. BNPep > 500 We will start patient on Lasix 40 mg IV twice daily Repeat blood work in a.m., consider nephrology consult if renal function worsens Hold Entresto 3. Acute hypoxic respiratory insufficiency secondary to bilateral pneumonia, possible COVID-19 pneumonia COVID-19 rapid antigen is negative, COVID-19 PCR is pending Continue with breathing treatments, encourage use of incentive spirometer. Wean off oxygen for SPO2 more than 94% 4. Pneumonia, possible COVID-19 pneumonia COVID-19 testing is pending, Started on IV ceftriaxone and azithromycin; will continue same Urine Legionella enterococcal antigen testing, respiratory panel 5. Hypokalemia, potassium is 3.4, replace, recheck in a.m. 6. Chest pain, elevated troponin likely secondary to demand ischemia, history of CAD status post CABG, status post recent stents No acute ST-T changes on EKG We will trend troponins, consider cardiology consult if troponin trends upwards Continue on aspirin, Plavix, isosorbide, rosuvastatin 7. Hypothyroidism, continue on synthroid 8. Chronic back pain, on Percocet 9. DVT prophylaxis -heparin subcu 10. CODE STATUS: Full code I discussed and explained in details the various types of CODE STATUS-full code, DNR CCA, DNR CC. Patient would like everything to be done to keep him alive. He chose full code. Time spent discussing CODE STATUS 18 minutes Inpatient E&M: 28301 Init Hosp L3 Procedures: 27632 Advncd Care Plan 30 Min
[2020-08-16 20:16] LABS: BNP,B-Type NATRIURETIC PEPTIDE 503.7 pg/mL (0-100)
[2020-08-16 20:56] LABS: Bedside Glucose 137 mg/dL (70-110)
[2020-08-16] MEDS: Morphine 4 MG/ML Syringe IV (21:24)
[2020-08-17] VITALS (15 sets, daily range): BP systolic 95–108; BP diastolic 58–71; PULSE 85–104; RESP 16–22; TEMP 36.6–36.8; O2SAT 93–97
--- NOTE | 2020-08-17 00:03 | US_ITS ---
STUDY: RENAL ULTRASOUND - COMPLETE REASON FOR EXAM: Male, 70 years old. ally TECHNIQUE: Ultrasound evaluation of the kidneys was performed with real-time and static sifuentes-scale imaging. COMPARISON: None. FINDINGS: RIGHT KIDNEY: Normal location of the right kidney, which is normal in size. The right kidney measures 11.1 x 5.6 x 6.2 cm. There is a normal cortex of the right kidney. The renal cortex measures 2.1 cm. There is no right renal mass or cyst. There are no right renal calculi. There is no right hydronephrosis. DISTAL RIGHT URETER: There is non-visualization of the distal right ureter. There is no demonstrated right ureterovesical junction calculus. There is a visualized right ureteral jet. LEFT KIDNEY: Normal location of the left kidney, which is normal in size. The left kidney measures 11.6 x 5.6 x 6.5 cm. There is a normal cortex of the left kidney. The renal cortex measures 1.8 cm. There is no left renal mass or cyst. There are no left renal calculi. There is no left hydronephrosis. DISTAL LEFT URETER: There is non-visualization of the distal left ureter. There is no demonstrated left ureterovesical junction calculus. There is a visualized left ureteral jet. BLADDER: The distended urinary bladder has a volume of 601 ml. There is a normal wall thickness of the distended urinary bladder. There is no demonstrated mass within the urinary bladder. There are no demonstrated bladder calculi. US/Kidney and Bladder IMPRESSION: Normal ultrasound of the kidneys and urinary bladder. Electronically Signed: Christian Bauman MD ([place]) at 9:55 EST , Service support ,
[2020-08-17] MEDS: Acetaminophen 325 MG Tablet 650 MG PO ×4 (00:18→18:36)
[2020-08-17] MEDS: oxyCODONE 5 MG Tablet 7.5 MG PO ×4 (00:23→18:36)
[2020-08-17] MEDS: Heparin Injection (Vial) 5,000 UNIT/ML VIAL 5000 UNIT SC ×4 (00:29→21:56)
[2020-08-17] MEDS: Carvedilol 6.25 MG Tablet PO ×2 (00:29→14:21)
[2020-08-17 00:51] LABS: Bedside Glucose 139 mg/dL (70-110)
[2020-08-17 00:57] LABS: AST(SGOT) 61 U/L (15-37); Alanine Aminotransfer ALT/SGPT 29 U/L (16-61); Albumin, Serum 3.7 g/dL (3.2-5.0); Alkaline Phosphatase 90 U/L (45-117); Bilirubin, Direct 0.06 mg/dL (0.00-0.30); Globulin 3.9 g/dL (2.2-4.2); Protein, Total 7.6 g/dL (6.4-8.2)
[2020-08-17] MEDS: Albuterol 2.5 MG/3 ML VIAL.NEB. INHALATION (02:04)
[2020-08-17] MEDS: Levothyroxine 25 MCG TABLET PO (05:19)
[2020-08-17 06:56] LABS: Absolute Lymphocyte Count 0.44 X10^3/uL (0.83-4.51); Absolute Neutrophil Count 11.5 X10^3/uL (2.0-7.7); Basophil# 0.01 X10^3/uL; Basophil% 0.1 % (0-1); Hematocrit 41.8 % (40-54); Hemoglobin 14.3 g/dL (13.0-16.5); Lymphocyte # 0.44 X10^3/ul (4.0); Lymphocyte % 3.6 % (19-41); Mean Corp Hgb Conc 34.2 g/dL (32-36); Mean Corpuscular Hgb 30.7 pg (27.0-32.0); Mean Corpuscular Volume 89.7 fL (80-94); Mean Platelet Vol. 9.7 fl (6.2-12.0); Monocyte# 0.13 X10^3/uL; Monocyte% 1.1 % (0-10); NRBC Flagged by Analyzer 0 % (0-5); Neutrophil # 11.52 X10^3/uL (2.7-7.7); Neutrophil % 94.8 % (47-70); POSITIVE DIFFERENTIAL YES; Platelet Count 172 K/mm3 (150-450); RBC Distribution Width CV 14.6 % (11.6-14.6); RBC Distribution Width SD 47.9 fl (35.1-43.9); Red Blood Count 4.66 M/mm3 (4.6-6.2); White Blood Count 12.2 K/mm3 (4.4-11.0)
[2020-08-17] MEDS: Ipratropium/Albuterol Sulfate 3 ML AMPUL.NEB INHALATION ×3 (06:56→18:35)
[2020-08-17 07:02] LABS: Differential Indicated SCAN CRITERIA MET
[2020-08-17 07:26] LABS: ALB/GLOB Ratio 0.8 RATIO (0.9-2.4); AST(SGOT) 48 U/L (15-37); Alanine Aminotransfer ALT/SGPT 28 U/L (16-61); Albumin, Serum 3.3 g/dL (3.2-5.0); Alkaline Phosphatase 79 U/L (45-117); Anion Gap 14 (5-15); BUN 56 mg/dL (7-18); Calcium,Total 7.4 mg/dL (8.5-10.1); Chloride 97 mmol/L (98-107); Creatinine, Serum 5.09 mg/dL (0.70-1.30); EST Glomerular Filtration Rate 12 mL/min (>60); Est Glom Filt Rate - Afr Amer 15 mL/min (>60); Globulin 3.9 g/dL (2.2-4.2); Glucose 111 mg/dL (74-106); Potassium 3.5 mmol/L (3.5-5.1); Protein, Total 7.2 g/dL (6.4-8.2); Sodium Level 133 mmol/L (136-145)
--- NOTE | 2020-08-17 07:42 | CON.PCM_ITS ---
Problem List (1) Toe pain, right Status: Acute (2) Smoking greater than 30 pack years Status: Chronic Comment: Appropriate for low-dose CT lung screening due January 2021 (3) COPD exacerbation Status: Chronic (4) Obesity (BMI 30.0-34.9) Status: Chronic (5) Nicotine dependence Status: Chronic Qualifiers: Substance use status: unspecified nicotine-induced disorder (6) Chronic back pain Status: Chronic Qualifiers: Back pain location: back pain in unspecified location (7) Type 2 diabetes mellitus Status: Chronic Qualifiers: Diabetes mellitus custodial insulin use: without custodial use Diabetes mellitus complication status: with other specified complication Qualified Code(s): E11.69 - Type 2 diabetes mellitus with other specified complication Reason for Consult Date of Consultation: 08/17/20 Reason for Consultation: Right hallux pain. History of trauma right hallux History of Present Illness: The patient is a 70 year old M who presents to hospital with worsening CHF and COPD and is hypoxic on admission. Patient had podiatry consulted for concern of right hallux pain with bruising noted to the dorsal aspect near the level of the IPJ. Patient states that he slammed his foot in a door yesterday and has since had pain to his right foot. No one else has worked this up yet. Patient denies denies any drainage from the site and states that it hurts all the time no matter if he is walking or not. Patient has no other pedal complaints. [] Past Medical History Past Medical History (Chronic Problems): Chronic Problems (Last Reviewed 07/16/20 @ 15:[address] Ravin Ortega, DO) Smoking greater than 30 pack years (Chronic) Appropriate for low-dose CT lung screening due January 2021 COPD exacerbation (Chronic) History of left heart catheterization (Chronic 07/17/20) LEFT MAIN: Angiographically normal;LEFT ANTERIOR DESCENDING ARTERY: PROX LAD: Moderate calcification MID LAD: is occluded with the mid to distal vessel filling late, DIAGONAL 1: Proximal - is occluded with the distal vessel filling late and faintly; CIRCUMFLEX ARTERY: Mild luminal irregularities, MID CIRC: 50 % Stenosis; RIGHT CORONARY ARTERY: not evaluated (previously documented as chronically occluded); GRAFTS: HUMPHREY graft to the Mid LAD previously documented as small, atretic, and occluded; Saphenous Vein graft to the 1st Diagonal previously; documented as occluded; Saphenous Vein graft to the 1st OM previously placed stent is patent with subsequent mid 90 % stenosis and distal, pre bifurcation, hazy 75 % stenosis; Saphenous Vein graft to the RCA previously documented as occluded - per cardiac cath 07/17/20 - LVEF: by LV gram 15-20 %; [place] Multivessel CAD; Occluded [place] mid LAD. Occluded [place] proximal RCA. Occluded SVG to DIAG. Occluded SVG to RCA. Occluded HUMPHREY to LAD. Severe 85% stenosis in last remaining vessel of SVG to LCX with widely patent SVG stents. Severe LV dysfunction. Referred for immediate PCI: Will tx to [facility] for high risk PCI to last remaining vessel of SVG to OM. 06/29/19 per DANA @ [facility] Hypoxia, sleep related (Chronic) Coarse tremors (Chronic) Headache (Chronic) ARIADNA (obstructive sleep apnea) (Chronic) COPD (chronic obstructive pulmonary disease) (Chronic) FEV1 64% of predicted Obesity (BMI 30.0-34.9) (Chronic) Nicotine dependence (Chronic) Gout (Chronic) Degenerative cervical disc (Chronic) Chronic back pain (Chronic) Presence of automatic implantable cardioverter-defibrillator (Chronic) H/O coronary artery bypass surgery (Chronic ~2008) HUMPHREY-LAD, SVG-D1, SVG-OM Chronic renal failure, stage 3 (moderate) (Chronic) Chronic systolic (congestive) heart failure (Chronic) Stented coronary artery (Chronic ~12/2016) has had 7 stents as of 06/15/17 Ischemic cardiomyopathy (Chronic) 25% ejection fraction in November 2016 V-tach (Chronic) has an AICD Benign essential hypertension (Chronic) Gastroesophageal reflux disease (Chronic) Hyperlipidemia (Chronic) Type 2 diabetes mellitus (Chronic) Morbid obesity (Chronic) CAD (coronary artery disease) (Chronic) Medical History: Medical History (Last Reviewed 07/16/20 @ 15:[address] Ravin Ortega, DO) Nicotine dependence (Chronic) F17.200 Gout (Chronic) M10.9 Degenerative cervical disc (Chronic) M50.30 Chronic back pain (Chronic) M54.9, G89.29 Chronic renal failure, stage 3 (moderate) (Chronic) N18.3 Chronic systolic (congestive) heart failure (Chronic) I50.22 Ischemic cardiomyopathy (Chronic) I25.5 25% ejection fraction in November 2016 V-tach (Chronic) I47.2 has an AICD Benign essential hypertension (Chronic) I10 Gastroesophageal reflux disease (Chronic) K21.9 Hyperlipidemia (Chronic) E78.5 Type 2 diabetes mellitus (Chronic) E11.9 Morbid obesity (Chronic) E66.01 CAD (coronary artery disease) (Chronic) I25.10 Tubular adenoma of colon (Inactive) D12.6 Allergies chlorpromazine HCl [From Thorazine] Allergy (Severe, Verified 08/16/20 16:11) Hives PER PATIENT tramadol HCl [From Ultram] Allergy (Severe, Verified 08/16/20 16:11) Hives PER PATIENT codeine Allergy (Intermediate, Verified 08/16/20 16:11) Hives atorvastatin Adverse Reaction (Intermediate, Verified 08/16/20 16:11) LEG PAIN/CRAMPS LEG PAIN/CRAMPS cyclobenzaprine [From Flexeril] Adverse Reaction (Verified 08/16/20 16:11) Upset Stomach metformin Adverse Reaction (Verified 08/16/20 16:11) Upset Stomach naproxen Adverse Reaction (Verified 08/16/20 16:11) Upset Stomach promethazine [From Phenergan] Adverse Reaction (Verified 08/16/20 16:11) CONFUSION CONFUSION Home Medications: Ambulatory Orders Medication Instructions Recorded Pantoprazole Sodium [Protonix] 40 mg PO DAILY 11/15/17 Rosuvastatin Calcium [Crestor] 40 mg PO DAILY 06/16/18 Clopidogrel Bisulfate [Plavix] 75 mg PO DAILY 09/01/18 Allopurinol 300 mg PO DAILY 09/20/18 Nitroglycerin 0.4 mg SL PRN PRN 12/01/18 Albuterol Inhaler [Ventolin Hfa] 2 puff INHALATION Q4H PRN PRN 02/24/19 Oxycodone HCl/Acetaminophen 1 tab PO Q6H PRN 05/02/19 [Oxycodon-Acetaminophen 7.5-325] aspirin 325 mg tablet,delayed 325 mg PO DAILY 10/05/19 release Carvedilol [Coreg (Beta Sina)] 6.25 mg PO BID 10/19/19 Furosemide [Lasix] 40 mg PO BID@1000,1800 10/19/19 Glimepiride [Amaryl] 1 mg PO DAILY 10/19/19 Levothyroxine [Synthroid] 25 mcg PO DAILY@0600 03/25/20 sacubitril 24 mg-valsartan 26 mg 1 tab PO BID #60 tab 12/21/19 tablet umeclidinium 62.5 mcg-vilanterol 1 inh INHALATION Q24H #1 ea 07/19/20 25 mcg/actuation powdr for inhalation Isosorbide Mononitrate [Isosorbide 30 mg PO DAILY 08/16/20 Mononitrate ER] Surgical History: Surgical History (Last Updated 07/17/20 @ 13:59 by Nafisa Coleman) History of left heart catheterization (Chronic) Onset Date: 07/17/20 Z98.890 LEFT MAIN: Angiographically normal;LEFT ANTERIOR DESCENDING ARTERY: PROX LAD: Moderate calcification MID LAD: is occluded with the mid to distal vessel filling late, DIAGONAL 1: Proximal - is occluded with the distal vessel filling late and faintly; CIRCUMFLEX ARTERY: Mild luminal irregularities, MID CIRC: 50 % Stenosis; RIGHT CORONARY ARTERY: not evaluated (previously documented as chronically occluded); GRAFTS: HUMPHREY graft to the Mid LAD previously documented as small, atretic, and occluded; Saphenous Vein graft to the 1st Diagonal previously; documented as occluded; Saphenous Vein graft to the 1st OM previously placed stent is patent with subsequent mid 90 % stenosis and distal, pre bifurcation, hazy 75 % stenosis; Saphenous Vein graft to the RCA previously documented as occluded - per cardiac cath 07/17/20 - LVEF: by LV gram 15-20 %; [place] Multivessel CAD; Occluded [place] mid LAD. Occluded [place] proximal RCA. Occluded SVG to DIAG. Occluded SVG to RCA. Occluded HUMPHREY to LAD. Severe 85% stenosis in last remaining vessel of SVG to LCX with widely patent SVG stents. Severe LV dysfunction. Referred for immediate PCI: Will tx to [facility] for high risk PCI to last remaining vessel of SVG to OM. 06/29/19 per DANA @ [facility] Presence of automatic implantable cardioverter-defibrillator (Chronic) Z95.810 H/O coronary artery bypass surgery (Chronic) Onset Date: ~2008 Z95.1 HUMPHREY-LAD, SVG-D1, SVG-OM Stented coronary artery (Chronic) Onset Date: ~12/2016 has had 7 stents as of 06/15/17 Hx of hernia repair (Inactive) Z98.890, Z87.19 Previous back surgery (Inactive) Z98.890 Surgical History: angioplasty - stents x 10, coronary bypass surgery, - - AICD placement, back surgery x 2, hernia repair, PCI. Psychiatric History: No pertinent psych hx Lives: Spouse/ Significant Other Smoking Status: Current every day smoker Tobacco Use: Cigarettes Alcohol: None Drugs: None - *Family History Paternal Family History: Family History (Last Reviewed 07/16/20 @ 15:[address] Ravin Ortega DO) Brother CAD (coronary artery disease) Myocardial infarction Sudden cardiac Mother Cancer Hypertension Father Cancer COPD (chronic obstructive pulmonary disease) History Items: Cancer, Heart Disease Maternal Family History: Family History (Last Reviewed 07/16/20 @ 15:[address] Ravin Ortega DO) Brother CAD (coronary artery disease) Myocardial infarction Sudden cardiac Mother Cancer Hypertension Father Cancer COPD (chronic obstructive pulmonary disease) History Items: Cancer - lung, Hypertension, - - Patient notes a paternal family history of chronic lung disease, lung cancer with history of tobacco use. Review of Systems Constitutional: Denies: Chills, Fever HEENT: Denies: Hard of Hearing Cardiovascular: Denies: Chest Pain Respiratory: Reports: Shortness of Breath Musculoskeletal: Reports: Foot Pain - Right hallux Skin: Reports: Lesions - Bruise right hallux Neurological: Denies: Numbness, Tingling Patient Problems: Active and Suspected Problems (Last Reviewed 07/16/20 @ 15:[address] Ravin Ortega DO) Elevated troponin (Acute) Subjective: Patient seen and examined bedside. Patient denies any other pedal complaints. Patient denies any nausea, fever, chills, chest pain, shortness of breath, cough, streaking, purulence, vomiting. - Physical Exam Vitals/I&O's: Vital Signs Temp Pulse Resp BP Pulse Ox 98.3 F 94 18 104/67 95 08/17/20 05:00 08/17/20 06:53 08/17/20 05:00 08/17/20 05:00 08/17/20 05:00 Oxygen Flow Rate (L/min) 2 Oxygen Delivery Method Nasal Cannula Weight: 92.986 kg Body Mass Index (BMI) 30.2 Finger Stick Blood Glucose 195 Intake and Output for Last 24 Hours 08/15/20 08/16/20 08/17/20 23:59 23:59 23:59 Intake Total 485 / 485 360 / 360 Balance 485 / 485 360 / 360 General: Alert, Oriented x3 HEENT: Atraumatic Abdomen: Obese Extremities: No clubbing, No cyanosis, No edema, Capillary Refill Less than 3 Seconds, No Calf Tenderness, Peripheral Pulses Normal, Tenderness - Right hallux mild Skin: - - There is a red discoloration noted to the dorsal aspect of right hallux at the level of the IPJ approximately 1 cm x 2 cm. There is no drainage. site is stable. There is mild pain to compression. No pain with range of motion. Hx of trauma at this area of 1 day duration. No breaks in the skin Musculoskeletal: Tenderness - Right hallux, - - No pain with range of motion of hallux IPJ or MPJ. Mild pain with compression of discolored site. Neurological: Sensory exam intact to light touch and pain Psych/Mental Status: Normal Affect Microbiology Past 72 Hours 08/17/20 02:00 Mucosa - Nasopharyngeal Respiratory Panel (PCR) - Final 08/17/20 03:15 Urine, Random Legionella Antigen - Final 08/17/20 03:15 Urine, Random Streptococcus pneumoniae Antigen (M - Final 08/16/20 17:15 Mucosa - Nose SARS-CoV-2 Antigen (Rapid) - Final Laboratory Results 08/16/20 17:13: WBC 22.0 H, RBC 5.07, Hgb 15.5, Hct 45.2, MCV 89.2, MCH 30.6, MCHC 34.3, RDW Std Deviation 47.0 H, RDW Coeff of Maggie 14.6, Plt Count 216, MPV 9.6, Immature Gran % (Auto) 0.700, Neut % (Auto) 91.3 H, Lymph % (Auto) 4.0 L, [place] % (Auto) 3.9, Eos % (Auto) 0.0, Baso % (Auto) 0.1, Absolute Neuts (auto) 20.1 H, Absolute Lymphs (auto) 0.88, Nucleated RBC % 0, Differential Comment @SLIDE SCANNED, Platelet Estimate ADEQUATE, RBC Morphology NORM C+C 08/16/20 17:13: PT 12.5, INR 1.0, APTT 30.5 08/16/20 17:13: Sodium 134 L, Potassium 3.4 L, Chloride 98, Carbon Dioxide 21.0, Anion Gap 15, BUN 45 H, Creatinine 4.52 H, Estim Creat Clear Calc 14.92, Est GFR (MDRD) Af Amer 17 L, Est GFR (MDRD) Non-Af 14 L, BUN/Creatinine Ratio 10.0, Glucose 31 L*, Calcium 7.7 L, Troponin I 0.136 H 08/16/20 17:13: B-Natriuretic Peptide 503.7 H 08/16/20 17:30: Total Bilirubin 0.50, Direct Bilirubin 0.06, AST 61 H, ALT 29, Alkaline Phosphatase 90, Total Protein 7.6, Albumin 3.7, Globulin 3.9 08/16/20 17:49: Lactic Acid 1.6 08/16/20 18:51: POC Glucose 195 H 08/16/20 20:05: COVID-19 (MANDIE) Not Detected 08/16/20 20:51: POC Glucose 137 H 08/17/20 00:48: POC Glucose 139 H 08/17/20 00:50: Troponin I 0.096 H 08/17/20 04:14: Troponin I 0.085 H 08/17/20 06:40: WBC 12.2 H, RBC 4.66, Hgb 14.3, Hct 41.8, MCV 89.7, MCH 30.7, MC HC 34.2, RDW Std Deviation 47.9 H, RDW Coeff of Maggie 14.6, Plt Count 172, MPV 9.7, Immature Gran % (Auto) 0.400, Neut % (Auto) 94.8 H, Lymph % (Auto) 3.6 L, [place] % (Auto) 1.1, Eos % (Auto) 0.0, Baso % (Auto) 0.1, Absolute Neuts (auto) 11.5 H, Absolute Lymphs (auto) 0.44 L, Nucleated RBC % 0 08/17/20 06:40: Sodium 133 L, Potassium 3.5, Chloride 97 L, Carbon Dioxide 22.0, Anion Gap 14, BUN 56 H, Creatinine 5.09 H, Estim Creat Clear Calc 13.70, Est GFR (MDRD) Af Amer 15 L, Est GFR (MDRD) Non-Af 12 L, BUN/Creatinine Ratio 11.0, Glucose 111 H, Calcium 7.4 L, Total Bilirubin 0.40, AST 48 H, ALT 28, Alkaline Phosphatase 79, Troponin I 0.088 H, Total Protein 7.2, Albumin 3.3, Globulin 3.9, Albumin/Globulin Ratio 0.8 L Current Medications Acetaminophen (Acetaminophen 325 Mg Tablet) 650 mg PO Q6H PRN PRN PRN Reason: Pain Score 1-10/Temp > 100.7 F Last Admin: 08/17/20 06:24 Dose: 650 mg Documented by: Albuterol Sulfate (Albuterol 2.5 Mg/3 Ml Vial.Neb.) 2.5 mg INHALATION Q2H PRN PRN PRN Reason: SOB/Wheezing Last Admin: 08/17/20 02:04 Dose: 2.5 mg Documented by: Albuterol/Ipratropium (Ipratropium/Albuterol Sulfate 3 Ml Ampul.Neb) 3 ml INHALATION Q6HWA.RT [facility] Last Admin: 08/17/20 06:56 Dose: 3 ml Documented by: Allopurinol (Allopurinol 300 Mg Tablet) [facility] Carvedilol (Carvedilol 6.25 Mg Tablet) 6.25 mg PO BID [facility] Last Admin: 08/17/20 00:29 Dose: 6.25 mg Documented by: Clopidogrel Bisulfate (Clopidogrel Bisulfate 75 Mg Tablet) 75 mg PO DAILY [facility] Furosemide (Furosemide 40 Mg/4 Ml Vial) 40 mg IV BID@1000,1800 [facility] Heparin Sodium (Porcine) (Heparin Injection (Vial) 5,000 Unit/Ml Vial) 5,000 unit SC Q8 [facility] Last Admin: 08/17/20 05:21 Dose: 5,000 unit Documented by: Ceftriaxone Sodium (Rocephin) 1 gm in 50 mls @ 100 mls/hr IV Q24@2200 [facility] Azithromycin 500 mg/ Dextrose 255 mls @ 250 mls/hr IV Q24@2200 [facility] Isosorbide Mononitrate (Isosorbide Mononitrate 30 Mg Tablet) 30 mg PO DAILY [facility] Levothyroxine Sodium (Levothyroxine 25 Mcg Tablet) 25 mcg PO DAILY@0600 [facility] Last Admin: 08/17/20 05:19 Dose: 25 mcg Documented by: Nicotine (Nicotine 14 Mg Patch) 14 mg TD DAILY [facility] Last Admin: 08/17/20 00:29 Dose: 14 mg Documented by: Nitroglycerin (Nitroglycerin (Inpatient Use) 0.4 Mg Tab.Subl) 0.4 mg SUBLINGUAL Q5M PRN PRN Reason: CHEST PAIN Ondansetron HCl (Ondansetron 4 Mg/2 Ml Vial) 4 mg IV Q8H PRN PRN PRN Reason: NAUSEA/VOMITING Oxycodone HCl (Oxycodone 5 Mg Tablet) 7.5 mg PO Q6H PRN PRN PRN Reason: Pain Score 6-10 Last Admin: 08/17/20 06:25 Dose: 7.5 mg Documented by: Pantoprazole Sodium (Pantoprazole Sodium 40 Mg Tablet) 40 mg PO DAILY [facility] Rosuvastatin Calcium (Rosuvastatin 20 Mg Tablet) 40 mg PO DAILY@2200 [facility] Assessment/Plan All Active Problems (Last Reviewed 07/16/20 @ 15:[address] Ravin Ortega, ) Toe pain, right (Acute) Elevated troponin (Acute) COPD exacerbation (Resolved) Cardiac enzymes elevated (Resolved) Right hallux pain History of trauma right hallux Diabetes CHF, COPD, hypoxemia Patient seen and examined bedside Patient noted to have slammed toe in door yesterday and has not had this worked up. Recommend x-ray to assess for any possible fractures X-ray ordered There is no breaks in the skin no dressing is necessary, no signs of infection Weightbearing and activity as tolerated We will continue to monitor Thank you for the consult Please contact if any concerns or questions
[2020-08-17] MEDS: Pantoprazole Sodium 40 MG Tablet PO (08:12)
[2020-08-17] MEDS: Allopurinol 300 MG Tablet PO (08:12)
[2020-08-17] MEDS: Clopidogrel Bisulfate 75 MG Tablet PO (08:12)
--- NOTE | 2020-08-17 08:45 | RAD_ITS ---
STUDY: X-RAY - RIGHT FOOT CLINICAL: Male, 70 years old. great toe injury, slammed in a door TECHNIQUE: 3 view(s) of the foot. COMPARISON: None. FINDINGS: There is a plantar calcaneal spur. Normal visualized subtalar, talonavicular, calcaneocuboid, tarsal and tarsometatarsal articulations. Normal metatarsi. Normal metatarsophalangeal joint of the great toe. Normal tibial and fibular sesamoid bones. Normal interphalangeal joint of the great toe. Normal phalanges of the great toe. Normal second through fifth metatarsophalangeal joints. Normal interphalangeal joints and phalanges of the lesser toes. The soft tissue structures are unremarkable. RAD/Foot min 3 Views IMPRESSION: No fracture or malalignment. Electronically Signed: Christian Bauman MD ([place]) at 9:53 EST , Service support ,
--- NOTE | 2020-08-17 09:12 | PN_ITS ---
Subjective: Chief complaint: Follow-up after admission for community-acquired pneumonia, recurrent hypoglycemia, JILLIAN on CKD and abnormal cardiac enzymes. Patient seen and examined. No acute events overnight. This morning, he is feeling better. Still having cough and chest discomfort upon coughing. Denied chest pain. Denies fever or chills. He is afebrile, blood pressure is borderline, heart rate stable, pulse ox is 93% on 2 L. - Physical Exam Vitals/I&O's: Vital Signs Temp Pulse Resp BP Pulse Ox 97.8 F 89 16 95/62 93 08/17/20 08:02 08/17/20 08:02 08/17/20 08:02 08/17/20 08:02 08/17/20 08:02 Oxygen Flow Rate (L/min) 2 Oxygen Delivery Method Nasal Cannula Weight: 205 lb Body Mass Index (BMI) 30.2 Finger Stick Blood Glucose 195 Intake and Output for Last 24 Hours 08/15/20 08/16/20 08/17/20 23:59 23:59 23:59 Intake Total 485 / 485 360 / 360 Balance 485 / 485 360 / 360 General: Alert, Oriented x3, Cooperative, - - Mildly short of breath. HEENT: Atraumatic, PERRLA, EOMI, Normocephalic Oral: Moist Mucosa, No Gingival or Mucosal Lesions/ Ulcerations Neck: Supple, No JVD, Negative Carotid Bruits, Trachea Midline, Thyroid Normal Size and Texture Lungs: No wheeze, Diminished, Rales, Rhonchi, Short of Breath, - - Decreased breath sounds at the bases, bilateral coarse crackles more on the left base. Cardiovascular: Regular rate, Regular Rhythm, Normal S1, Normal S2, PMI Normal Abdomen: Bowel Sounds Present, Soft, Non Tender, Non-Distended, No Hepato- splenomegaly, Obese Extremities: No clubbing, No cyanosis, No edema Skin: No rashes, No breakdown Lymphatic: No Cervical, Supraclavicular, or Inguinal Adenopathy Neurological: Cranial nerves II-XII grossly intact, Motor Exam 5/5 strength throughout Psych/Mental Status: Normal Affect, Appropriate, Alert and oriented to time, place, person, mood and affect Microbiology Past 72 Hours 08/17/20 02:00 Mucosa - Nasopharyngeal Respiratory Panel (PCR) - Final 08/17/20 03:15 Urine, Random Legionella Antigen - Final 08/17/20 03:15 Urine, Random Streptococcus pneumoniae Antigen (M - Final 08/16/20 17:15 Mucosa - Nose SARS-CoV-2 Antigen (Rapid) - Final Laboratory Results 08/16/20 17:13: WBC 22.0 H, RBC 5.07, Hgb 15.5, Hct 45.2, MCV 89.2, MCH 30.6, MCHC 34.3, RDW Std Deviation 47.0 H, RDW Coeff of Maggie 14.6, Plt Count 216, MPV 9.6, Immature Gran % (Auto) 0.700, Neut % (Auto) 91.3 H, Lymph % (Auto) 4.0 L, Archuleta % (Auto) 3.9, Eos % (Auto) 0.0, Baso % (Auto) 0.1, Absolute Neuts (auto) 20.1 H, Absolute Lymphs (auto) 0.88, Nucleated RBC % 0, Differential Comment @SLIDE SCANNED, Platelet Estimate ADEQUATE, RBC Morphology NORM C+C 08/16/20 17:13: PT 12.5, INR 1.0, APTT 30.5 08/16/20 17:13: Sodium 134 L, Potassium 3.4 L, Chloride 98, Carbon Dioxide 21.0, Anion Gap 15, BUN 45 H, Creatinine 4.52 H, Estim Creat Clear Calc 14.92, Est GFR (MDRD) Af Amer 17 L, Est GFR (MDRD) Non-Af 14 L, BUN/Creatinine Ratio 10.0, Glucose 31 L*, Calcium 7.7 L, Troponin I 0.136 H 08/16/20 17:13: B-Natriuretic Peptide 503.7 H 08/16/20 17:30: Total Bilirubin 0.50, Direct Bilirubin 0.06, AST 61 H, ALT 29, Alkaline Phosphatase 90, Total Protein 7.6, Albumin 3.7, Globulin 3.9 08/16/20 17:49: Lactic Acid 1.6 08/16/20 18:51: POC Glucose 195 H 08/16/20 20:05: COVID-19 (MANDIE) Not Detected 08/16/20 20:51: POC Glucose 137 H 08/17/20 00:48: POC Glucose 139 H 08/17/20 00:50: Troponin I 0.096 H 08/17/20 04:14: Troponin I 0.085 H 08/17/20 06:40: WBC 12.2 H, RBC 4.66, Hgb 14.3, Hct 41.8, MCV 89.7, MCH 30.7, MCHC 34.2, RDW Std Deviation 47.9 H, RDW Coeff of Maggie 14.6, Plt Count 172, MPV 9.7, Immature Gran % (Auto) 0.400, Neut % (Auto) 94.8 H, Lymph % (Auto) 3.6 L, Archuleta % (Auto) 1.1, Eos % (Auto) 0.0, Baso % (Auto) 0.1, Absolute Neuts (auto) 11.5 H, Absolute Lymphs (auto) 0.44 L, Nucleated RBC % 0 08/17/20 06:40: Sodium 133 L, Potassium 3.5, Chloride 97 L, Carbon Dioxide 22.0, Anion Gap 14, BUN 56 H, Creatinine 5.09 H, Estim Creat Clear Calc 13.70, Est GFR (MDRD) Af Amer 15 L, Est GFR (MDRD) Non-Af 12 L, BUN/Creatinine Ratio 11.0, Glucose 111 H, Calcium 7.4 L, Total Bilirubin 0.40, AST 48 H, ALT 28, Alkaline Phosphatase 79, Troponin I 0.088 H, Total Protein 7.2, Albumin 3.3, Globulin 3.9, Albumin/Globulin Ratio 0.8 L Clinical Impression(s) from Imaging Studies Brain CT 08/16/20 16:21 IMPRESSION: Atrophy and periventricular white matter ischemic changes with without evidence for acute bleed. If concern for acute infarct MRI recommended Electronically Signed: Warner Brown MD at 17:46 EST , Service support , ADDENDUM: 08/16/20 7324 IMPRESSION: Atrophy and periventricular white matter ischemic changes with without evidence for acute bleed. If concern for acute infarct MRI recommended N.B. : The above information has been verbally conveyed by Warner Brown MD to Lyndon Huynh MD, on 08/16/2020 17:47:56 (ET). Electronically Signed: Warner Brown MD at 17:46 EST , Service support , Chest X-Ray 08/16/20 16:48 IMPRESSION: Findings suggestive of mild congestive failure however cannot exclude coexisting pneumonia. Clinical correlation recommended Electronically Signed: Warner Brown MD at 18:20 EST , Service support , Current Medications Acetaminophen (Acetaminophen 325 Mg Tablet) 650 mg PO Q6H PRN PRN PRN Reason: Pain Score 1-10/Temp > 100.7 F Last Admin: 08/17/20 06:24 Dose: 650 mg Documented by: Albuterol Sulfate (Albuterol 2.5 Mg/3 Ml Vial.Neb.) 2.5 mg INHALATION Q2H PRN PRN PRN Reason: SOB/Wheezing Last Admin: 08/17/20 02:04 Dose: 2.5 mg Documented by: Albuterol/Ipratropium (Ipratropium/Albuterol Sulfate 3 Ml Ampul.Neb) 3 ml INHALATION Q6HWA.RT [facility] Last Admin: 08/17/20 06:56 Dose: 3 ml Documented by: Allopurinol ([facility]op[facility]ol 300 Mg Tablet) [facility] Last Admin: 08/17/20 08:12 Dose: 300 mg Documented by: Carvedilol (Carvedilol 6.25 Mg Tablet) 6.25 mg PO BID [facility] Last Admin: 08/17/20 00:29 Dose: 6.25 mg Documented by: Clopidogrel Bisulfate (Clopidogrel Bisulfate 75 Mg Tablet) 75 mg PO DAILY [facility] Last Admin: 08/17/20 08:12 Dose: 75 mg Documented by: Furosemide (Furosemide 40 Mg/4 Ml Vial) 40 mg IV BID@1000,1800 [facility] Heparin Sodium (Porcine) (Heparin Injection (Vial) 5,000 Unit/Ml Vial) 5,000 unit SC Q8 [facility] Last Admin: 08/17/20 05:21 Dose: 5,000 unit Documented by: Ceftriaxone Sodium (Rocephin) 1 gm in 50 mls @ 100 mls/hr IV Q24@2200 [facility] Azithromycin 500 mg/ Dextrose 255 mls @ 250 mls/hr IV Q24@2200 [facility] Sodium Chloride () 1,000 mls @ 100 mls/hr IV .Q10H [facility] Isosorbide Mononitrate (Isosorbide Mononitrate 30 Mg Tablet) 30 mg PO DAILY [facility] Levothyroxine Sodium (Levothyroxine 25 Mcg Tablet) 25 mcg PO DAILY@0600 [facility] Last Admin: 08/17/20 05:19 Dose: 25 mcg Documented by: Nicotine (Nicotine 14 Mg Patch) 14 mg TD DAILY [facility] Last Admin: 08/17/20 08:12 Dose: 14 mg Documented by: Nitroglycerin (Nitroglycerin (Inpatient Use) 0.4 Mg Tab.Subl) 0.4 mg SUBLINGUAL Q5M PRN PRN Reason: CHEST PAIN Ondansetron HCl (Ondansetron 4 Mg/2 Ml Vial) 4 mg IV Q8H PRN PRN PRN Reason: NAUSEA/VOMITING Oxycodone HCl (Oxycodone 5 Mg Tablet) 7.5 mg PO Q6H PRN PRN PRN Reason: Pain Score 6-10 Last Admin: 08/17/20 06:25 Dose: 7.5 mg Documented by: Pantoprazole Sodium (Pantoprazole Sodium 40 Mg Tablet) 40 mg PO DAILY [facility] Last Admin: 08/17/20 08:12 Dose: 40 mg Documented by: Rosuvastatin Calcium (Rosuvastatin 20 Mg Tablet) 40 mg PO DAILY@2200 [facility] Medical Necessity - Tobacco Use Smoking Status: Current every day smoker Tobacco Use: Cigarettes Assessment/Plan This is a 70 years old male patient presented to the emergency room because of worsening shortness of breath and dry cough as well as dizziness, found to have JILLIAN on CKD, acute on chronic systolic CHF and probable pneumonia. #1 acute on chronic systolic CHF: He is on IV Lasix for diuresis, on Coreg, isosorbide mononitrate as well. Today, he is feeling better, remains on oxygen. Kidney function is trending up. He had 2D echocardiogram on June, that showed ejection fraction 50%, other findings reviewed. Chest x-ray reviewed. EKG revealed normal sinus rhythm, no acute segment changes. Troponin was borderline elevated likely because of demand ischemia. Plan: Continue same treatment, repeat CBC and BMP tomorrow morning, PT OT evaluation and treatment. #2 probable community-acquired pneumonia: This is based on chest x-ray findings, leukocytosis, it is not typical. Patient is started on IV Rocephin and Zithromax. He has been afebrile, WBC is trending down. Pneumococcal and Legionella antigen were negative. COVID-19 antigen came back negative. COVID- 19 PCR also negative. Respiratory panel for viruses were negative. Plan to continue same treatment. #3 acute kidney injury on top of stage III chronic kidney disease: Baseline creatinine has been around 1.3- 2 mg/dL, admission creatinine was 4.52, came up to 5.09 today likely because of diuresis. Kidney ultrasound done. Plan for nephrology consult. #4 recurrent hypoglycemia: This likely because of sulfonylurea, patient has been taking glimepiride in the setting of worsening kidney function. Glimepiride held. Blood sugar stabilized. We will start him on Accu-Cheks every 6 hours and sliding scale. #5 Chronic systolic CHF/ischemic cardiomyopathy/status post ICD: With acute exacerbation as above, plan as above. #6 hypertension: Currently, blood pressure is borderline, asymptomatic, continue Coreg and nitrates. #7 COPD: Patient use oxygen at night at 2 L. Chest x-ray reviewed. He is on DuoNeb and albuterol. #8 type 2 diabetes mellitus: With frequent hypoglycemia due to taking sulfonylurea in the setting of JILLIAN on CKD. Blood sugar stabilized. Plan as above. #9 CAD status post CABG and stents: Continue Coreg, nitrate. #10 hyperlipidemia: Continue statins. #11 GERD: Continue Protonix. #12 DVT prophylaxis: Subcu heparin. This note was generated with [employer] dictation software. It may contain incorrect words, spelling, and punctuation that were not noted in checking the note before signing. Inpatient E&M: 51073 Subs Hosp L2
[2020-08-17] MEDS: 0.9% Normal Saline 1,000 ML 100 ML IV ×2 (10:27→20:25)
[2020-08-17] MEDS: Furosemide 40 MG/4 ML Vial IV (10:28)
--- NOTE | 2020-08-17 11:12 | CASEMGMT ---
LEONIE JEAN-BAPTISTE assessment: Face to Face with patient for initial transition planning/care coordination assessment. LEONIE JEAN-BAPTISTE introduced self and role at [facility], pt voices understanding and consents to assessment at this time. Pt is sitting up in bed in no distress at this time. Pt is A/Ox4 at this time and answers all questions appropriately at this time. Care providers, pharmacy, and demographics verified at this time. Presentation: Pt c/o dizziness for a few days. recent cardiac stents placed Admitting dx: Recurrent hypoglycemia PCP: Yolette GONZALEZ Specialists: shasha Inman; marlena Pop [facility]erred [facility]: [facility] Prescription Benefit: [facility] Living Will/HPOA: Pt states does not have LW/HPOA and declines AD info at this time. LNOK: Alma Rosa Acuna, Living Arrangements: Pt states lives with and cares for , Alma Rosa Acuna, in 2 story home and states no concerns at home at this time. Pt states is independent with ADL's. Transportation: Pt states drives self and states no transportation concerns at this time. DME/HHC: Pt states has the following DME: rollator, grab bars, shower chair, nebulizer, and 2L home oxygen at bedtime thru [employer]. Green sheet left on chart for [employer], if pt needs continuous oxygen at discharge. Pt states no hx of HHC or SNF. Pt states that he does have meals delivered 1 meal/day 7 days/week. Pt states he gets the meals one week and then his gets them one week. Pt states no concerns with going home at time of discharge. Pt states is retired. Pt states smokes 2-3cigarettes daily and does not drink ETOH. Pt states no further concerns/needs at this time. CM to follow for home oxygen need and any further discharge planning/needs. Advised pt to ask for CM if any further questions/concerns/needs arise, voices understanding. Pt Goal: Home Plan: Home, pending home oxygen testing. [place] LEONIE JEAN-BAPTISTE
[2020-08-17 12:25] LABS: Bedside Glucose 132 mg/dL (70-110)
[2020-08-17] MEDS: Isosorbide Mononitrate 30 MG Tablet PO (14:21)
--- NOTE | 2020-08-17 14:32 | PCM.CONS.R ---
Consultation - Renal 08/17/20 PCP/ Referring MD: Requesting physician: [] Primary care physician: Dr. Juan De La Vega III, MD - History of Present Illness History of Present Illness: The patient is a 70 year old M with past medical history of coronary artery disease s/p CABG s/p PCI stent s/p hypertension dyslipidemia s/p AICD type 2 diabetes mellitus who presented with a chief complaint of slurred speech for day prior to admission paresthesias vertigo. He also had some chest discomfort and shortness of breath. He had 2 stents recently placed in [facility] but denies dizziness palpitations no nausea vomiting fever chills or anosmia. He has poor appetite and not had no p.o. intake of solids because of poor appetite denies sick contacts and no nausea vomiting or diarrhea. Uses oxygen about 2 L at night only. His creatinine was 4.52 on admission with a BUN of 45 and a potassium of 3.4. His COVID-19 antigen was negative. The chest x-ray was suggestive of mild CHF or pneumonia. Patient was found to be hypoglycemic and was treated accordingly. The patient was on sacubitril?valsartan and Lasix twice daily and his blood pressure was in the 90s initially. The patient was taking 12 ibuprofen tablets at least every day for many years for lower back pain. - Allergies Allergies: Allergies chlorpromazine HCl [From Thorazine] Allergy (Severe, Verified 08/16/20 16:11) Hives PER PATIENT tramadol HCl [From Ultram] Allergy (Severe, Verified 08/16/20 16:11) Hives PER PATIENT codeine Allergy (Intermediate, Verified 08/16/20 16:11) Hives atorvastatin Adverse Reaction (Intermediate, Verified 08/16/20 16:11) LEG PAIN/CRAMPS LEG PAIN/CRAMPS cyclobenzaprine [From Flexeril] Adverse Reaction (Verified 08/16/20 16:11) Upset Stomach metformin Adverse Reaction (Verified 08/16/20 16:11) Upset Stomach naproxen Adverse Reaction (Verified 08/16/20 16:11) Upset Stomach promethazine [From Phenergan] Adverse Reaction (Verified 08/16/20 16:11) CONFUSION CONFUSION - Current Medications Current Medications: Current Medications Acetaminophen (Acetaminophen 325 Mg Tablet) 650 mg PO Q6H PRN PRN PRN Reason: Pain Score 1-10/Temp > 100.7 F Last Admin: 08/17/20 12:31 Dose: 650 mg Documented by: Albuterol Sulfate (Albuterol 2.5 Mg/3 Ml Vial.Neb.) 2.5 mg INHALATION Q2H PRN PRN PRN Reason: SOB/Wheezing Last Admin: 08/17/20 02:04 Dose: 2.5 mg Documented by: Albuterol/Ipratropium (Ipratropium/Albuterol Sulfate 3 Ml Ampul.Neb) 3 ml INHALATION Q6HWA.RT [facility] Last Admin: 08/17/20 12:51 Dose: 3 ml Documented by: Allopurinol (Allopurinol 300 Mg Tablet) 300 mg PO DAILYCM [facility] Last Admin: 08/17/20 08:12 Dose: 300 mg Documented by: Carvedilol (Carvedilol 6.25 Mg Tablet) 6.25 mg PO BID [facility] Last Admin: 08/17/20 14:21 Dose: 6.25 mg Documented by: Clopidogrel Bisulfate (Clopidogrel Bisulfate 75 Mg Tablet) 75 mg PO DAILY [facility] Last Admin: 08/17/20 08:12 Dose: 75 mg Documented by: Furosemide (Furosemide 40 Mg/4 Ml Vial) 40 mg IV BID@1000,1800 [facility] Last Admin: 08/17/20 10:28 Dose: 40 mg Documented by: Heparin Sodium (Porcine) (Heparin Injection (Vial) 5,000 Unit/Ml Vial) 5,000 unit SC Q8 [facility] Last Admin: 08/17/20 14:21 Dose: 5,000 unit Documented by: Ceftriaxone Sodium (Rocephin) 1 gm in 50 mls @ 100 mls/hr IV Q24@2200 [facility] Azithromycin 500 mg/ Dextrose 255 mls @ 250 mls/hr IV Q24@2200 [facility] Sodium Chloride () 1,000 mls @ 100 mls/hr IV .Q10H [facility] Last Admin: 08/17/20 10:27 Dose: 100 mls/hr Documented by: Insulin Human Lispro (Insulin Lispro 100 Unit/Ml Insuln.Pen) 0 unit SC Q6 [facility]; Protocol Last Admin: 08/17/20 12:20 Dose: Not Given Documented by: Isosorbide Mononitrate (Isosorbide Mononitrate 30 Mg Tablet) 30 mg PO DAILY [facility] Last Admin: 08/17/20 14:21 Dose: 30 mg Documented by: Levothyroxine Sodium (Levothyroxine 25 Mcg Tablet) 25 mcg PO DAILY@0600 [facility] Last Admin: 08/17/20 05:19 Dose: 25 mcg Documented by: Nicotine (Nicotine 14 Mg Patch) 14 mg TD DAILY [facility] Last Admin: 08/17/20 08:12 Dose: 14 mg Documented by: Nitroglycerin (Nitroglycerin (Inpatient Use) 0.4 Mg Tab.Subl) 0.4 mg SUBLINGUAL Q5M PRN PRN Reason: CHEST PAIN Ondansetron HCl (Ondansetron 4 Mg/2 Ml Vial) 4 mg IV Q8H PRN PRN PRN Reason: NAUSEA/VOMITING Oxycodone HCl (Oxycodone 5 Mg Tablet) 7.5 mg PO Q6H PRN PRN PRN Reason: Pain Score 6-10 Last Admin: 08/17/20 12:30 Dose: 7.5 mg Documented by: Pantoprazole Sodium (Pantoprazole Sodium 40 Mg Tablet) 40 mg PO DAILY [facility] Last Admin: 08/17/20 08:12 Dose: 40 mg Documented by: Rosuvastatin Calcium (Rosuvastatin 20 Mg Tablet) 40 mg PO DAILY@2200 [facility] Tamsulosin HCl (Tamsulosin Hcl 0.4 Mg Capsule) 0.4 mg PO DAILY@1730 [facility] - Past Medical History Past Medical History (Chronic Problems): Chronic Problems (Last Reviewed 07/16/20 @ 15:[address] Ravin Ortega, ) Smoking greater than 30 pack years (Chronic) Appropriate for low-dose CT lung screening due January 2021 History of left heart catheterization (Chronic 07/17/20) LEFT MAIN: Angiographically normal;LEFT ANTERIOR DESCENDING ARTERY: PROX LAD: Moderate calcification MID LAD: is occluded with the mid to distal vessel filling late, DIAGONAL 1: Proximal - is occluded with the distal vessel filling late and faintly; CIRCUMFLEX ARTERY: Mild luminal irregularities, MID CIRC: 50 % Stenosis; RIGHT CORONARY ARTERY: not evaluated (previously documented as chronically occluded); GRAFTS: HUMPHREY graft to the Mid LAD previously documented as small, atretic, and occluded; Saphenous Vein graft to the 1st Diagonal previously; documented as occluded; Saphenous Vein graft to the 1st OM previously placed stent is patent with subsequent mid 90 % stenosis and distal, pre bifurcation, hazy 75 % stenosis; Saphenous Vein graft to the RCA previously documented as occluded - per cardiac cath 07/17/20 - LVEF: by LV gram 15-20 %; [place] Multivessel CAD; Occluded [place] mid LAD. Occluded [place] proximal RCA. Occluded SVG to DIAG. Occluded SVG to RCA. Occluded HUMPHREY to LAD. Severe 85% stenosis in last remaining vessel of SVG to LCX with widely patent SVG stents. Severe LV dysfunction. Referred for immediate PCI: Will tx to [facility] for high risk PCI to last remaining vessel of SVG to OM. 06/29/19 per [facility] @ [facility] Hypoxia, sleep related (Chronic) ARIADNA (obstructive sleep apnea) (Chronic) COPD (chronic obstructive pulmonary disease) (Chronic) FEV1 64% of predicted Obesity (BMI 30.0-34.9) (Chronic) Nicotine dependence (Chronic) Gout (Chronic) Degenerative cervical disc (Chronic) Chronic back pain (Chronic) Presence of automatic implantable cardioverter-defibrillator (Chronic) H/O coronary artery bypass surgery (Chronic ~2008) HUMPHREY-LAD, SVG-D1, SVG-OM Chronic renal failure, stage 3 (moderate) (Chronic) Chronic systolic (congestive) heart failure (Chronic) Stented coronary artery (Chronic ~12/2016) has had 7 stents as of 06/15/17 Ischemic cardiomyopathy (Chronic) 25% ejection fraction in November 2016 V-tach (Chronic) has an AICD Benign essential hypertension (Chronic) Gastroesophageal reflux disease (Chronic) Hyperlipidemia (Chronic) Type 2 diabetes mellitus (Chronic) Morbid obesity (Chronic) CAD (coronary artery disease) (Chronic) - Past Surgical History Surgical History: angioplasty - stents x 10, coronary bypass surgery, - - AICD placement, back surgery x 2, hernia repair, PCI. - Social History Smoking Status: Current every day smoker Alcohol: None Drugs: None - Family History Paternal Family History: Family History (Last Reviewed 07/16/20 @ 15:[address] Ravin Ortega DO) Brother CAD (coronary artery disease) Myocardial infarction Sudden cardiac Mother Cancer Hypertension Father Cancer COPD (chronic obstructive pulmonary disease) History Items: Cancer, Heart Disease Maternal Family History: Family History (Last Reviewed 07/16/20 @ 15:[address] Ravin Ortega DO) Brother CAD (coronary artery disease) Myocardial infarction Sudden cardiac Mother Cancer Hypertension Father Cancer COPD (chronic obstructive pulmonary disease) History Items: Cancer - lung, Hypertension, - - Patient notes a paternal family history of chronic lung disease, lung cancer with history of tobacco use. Review of Systems Eyes: Reports: - - Review of systems otherwise negative unless noted in the HPI - Physical Exam Vitals/I&O's: Vital Signs Temp Pulse Resp BP Pulse Ox 97.8 F 96 18 108/71 96 08/17/20 14:13 08/17/20 14:13 08/17/20 14:13 08/17/20 14:13 08/17/20 14:13 Oxygen Flow Rate (L/min) 2 Oxygen Delivery Method Nasal Cannula Weight: 92.986 kg Body Mass Index (BMI) 30.2 Finger Stick Blood Glucose 195 Intake and Output for Last 24 Hours 08/15/20 08/16/20 08/17/20 23:59 23:59 23:59 Intake Total 485 / 485 840 / 840 Output Total 900 / 900 Balance 485 / 485 -60 / -60 General: Alert, Cooperative HEENT: Atraumatic, Normocephalic Oral: Moist Mucosa Neck: Supple, Trachea Midline Lungs: Clear to auscultation, Normal air movement Cardiovascular: Normal S1, Normal S2 Abdomen: Bowel Sounds Present, Soft, Obese Extremities: No clubbing, No edema Microbiology Past 72 Hours 08/17/20 02:00 Mucosa - Nasopharyngeal Respiratory Panel (PCR) - Final 08/17/20 03:15 Urine, Random Legionella Antigen - Final 08/17/20 03:15 Urine, Random Streptococcus pneumoniae Antigen (M - Final 08/16/20 17:15 Mucosa - Nose SARS-CoV-2 Antigen (Rapid) - Final Laboratory Results 08/16/20 17:13: WBC 22.0 H, RBC 5.07, Hgb 15.5, Hct 45.2, MCV 89.2, MCH 30.6, MCHC 34.3, RDW Std Deviation 47.0 H, RDW Coeff of Maggie 14.6, Plt Count 216, MPV 9.6, Immature Gran % (Auto) 0.700, Neut % (Auto) 91.3 H, Lymph % (Auto) 4.0 L, [place]kin % (Auto) 3.9, Eos % (Auto) 0.0, Baso % (Auto) 0.1, Absolute Neuts (auto) 20.1 H, Absolute Lymphs (auto) 0.88, Nucleated RBC % 0, Differential Comment @SLIDE SCANNED, Platelet Estimate ADEQUATE, RBC Morphology NORM C+C 08/16/20 17:13: PT 12.5, INR 1.0, APTT 30.5 08/16/20 17:13: Sodium 134 L, Potassium 3.4 L, Chloride 98, Carbon Dioxide 21.0, Anion Gap 15, BUN 45 H, Creatinine 4.52 H, Estim Creat Clear Calc 14.92, Est GFR (MDRD) Af Amer 17 L, Est GFR (MDRD) Non-Af 14 L, BUN/Creatinine Ratio 10.0, Glucose 31 L*, Calcium 7.7 L, Troponin I 0.136 H 08/16/20 17:13: B-Natriuretic Peptide 503.7 H 08/16/20 17:30: Total Bilirubin 0.50, Direct Bilirubin 0.06, AST 61 H, ALT 29, Alkaline Phosphatase 90, Total Protein 7.6, Albumin 3.7, Globulin 3.9 08/16/20 17:49: Lactic Acid 1.6 08/16/20 18:51: POC Glucose 195 H 08/16/20 20:05: COVID-19 (MANDIE) Not Detected 08/16/20 20:51: POC Glucose 137 H 08/17/20 00:48: POC Glucose 139 H 08/17/20 00:50: Troponin I 0.096 H 08/17/20 04:14: Troponin I 0.085 H 08/17/20 06:40: WBC 12.2 H, RBC 4.66, Hgb 14.3, Hct 41.8, MCV 89.7, MCH 30.7, MCHC 34.2, RDW Std Deviation 47.9 H, RDW Coeff of Maggie 14.6, Plt Count 172, MPV 9.7, Immature Gran % (Auto) 0.400, Neut % (Auto) 94.8 H, Lymph % (Auto) 3.6 L, [place]kin % (Auto) 1.1, Eos % (Auto) 0.0, Baso % (Auto) 0.1, Absolute Neuts (auto) 11.5 H, Absolute Lymphs (auto) 0.44 L, Nucleated RBC % 0 08/17/20 06:40: Sodium 133 L, Potassium 3.5, Chloride 97 L, Carbon Dioxide 22.0, Anion Gap 14, BUN 56 H, Creatinine 5.09 H, Estim Creat Clear Calc 13.70, Est GFR (MDRD) Af Amer 15 L, Est GFR (MDRD) Non-Af 12 L, BUN/Creatinine Ratio 11.0, Glucose 111 H, Calcium 7.4 L, Total Bilirubin 0.40, AST 48 H, ALT 28, Alkaline Phosphatase 79, Troponin I 0.088 H, Total Protein 7.2, Albumin 3.3, Globulin 3.9, Albumin/Globulin Ratio 0.8 L 08/17/20 12:16: POC Glucose 132 H Current Medications Acetaminophen (Acetaminophen 325 Mg Tablet) 650 mg PO Q6H PRN PRN PRN Reason: Pain Score 1-10/Temp > 100.7 F Last Admin: 08/17/20 12:31 Dose: 650 mg Documented by: Albuterol Sulfate (Albuterol 2.5 Mg/3 Ml Vial.Neb.) 2.5 mg INHALATION Q2H PRN PRN PRN Reason: SOB/Wheezing Last Admin: 08/17/20 02:04 Dose: 2.5 mg Documented by: Albuterol/Ipratropium (Ipratropium/Albuterol Sulfate 3 Ml Ampul.Neb) 3 ml INHALATION Q6HWA.RT [facility] Last Admin: 08/17/20 12:51 Dose: 3 ml Documented by: Allopurinol ([facility] 300 Mg Tablet) [facility] Last Admin: 08/17/20 08:12 Dose: 300 mg Documented by: Carvedilol (Carvedilol 6.25 Mg Tablet) 6.25 mg PO BID [facility] Last Admin: 08/17/20 14:21 Dose: 6.25 mg Documented by: Clopidogrel Bisulfate (Clopidogrel Bisulfate 75 Mg Tablet) 75 mg PO DAILY [facility] Last Admin: 08/17/20 08:12 Dose: 75 mg Documented by: Furosemide (Furosemide 40 Mg/4 Ml Vial) 40 mg IV BID@1000,1800 [facility] Last Admin: 08/17/20 10:28 Dose: 40 mg Documented by: Heparin Sodium (Porcine) (Heparin Injection (Vial) 5,000 Unit/Ml Vial) 5,000 unit SC Q8 [facility] Last Admin: 08/17/20 14:21 Dose: 5,000 unit Documented by: Ceftriaxone Sodium (Rocephin) 1 gm in 50 mls @ 100 mls/hr IV Q24@2200 [facility] Azithromycin 500 mg/ Dextrose 255 mls @ 250 mls/hr IV Q24@0 [facility] Sodium Chloride () 1,000 mls @ 100 mls/hr IV .Q10H [facility] Last Admin: 08/17/20 10:27 Dose: 100 mls/hr Documented by: Insulin Human Lispro (Insulin Lispro 100 Unit/Ml Insuln.Pen) 0 unit SC Q6 [facility]; Protocol Last Admin: 08/17/20 12:20 Dose: Not Given Documented by: Isosorbide Mononitrate (Isosorbide Mononitrate 30 Mg Tablet) 30 mg PO DAILY [facility] Last Admin: 08/17/20 14:21 Dose: 30 mg Documented by: Levothyroxine Sodium (Levothyroxine 25 Mcg Tablet) 25 mcg PO DAILY@0600 [facility] Last Admin: 08/17/20 05:19 Dose: 25 mcg Documented by: Nicotine (Nicotine 14 Mg Patch) 14 mg TD DAILY [facility] Last Admin: 08/17/20 08:12 Dose: 14 mg Documented by: Nitroglycerin (Nitroglycerin (Inpatient Use) 0.4 Mg Tab.Subl) 0.4 mg SUBLINGUAL Q5M PRN PRN Reason: CHEST PAIN Ondansetron HCl (Ondansetron 4 Mg/2 Ml Vial) 4 mg IV Q8H PRN PRN PRN Reason: NAUSEA/VOMITING Oxycodone HCl (Oxycodone 5 Mg Tablet) 7.5 mg PO Q6H PRN PRN PRN Reason: Pain Score 6-10 Last Admin: 08/17/20 12:30 Dose: 7.5 mg Documented by: Pantoprazole Sodium (Pantoprazole Sodium 40 Mg Tablet) 40 mg PO DAILY [facility] Last Admin: 08/17/20 08:12 Dose: 40 mg Documented by: Rosuvastatin Calcium (Rosuvastatin 20 Mg Tablet) 40 mg PO DAILY@2200 [facility] Tamsulosin HCl (Tamsulosin Hcl 0.4 Mg Capsule) 0.4 mg PO DAILY@1730 [facility] Assessment/Plan JILLIAN?prerenal/ATN multifactorial with fluid depletion hypotension valsartan Lasix and high-dose NSAIDs CKD baseline creatinine 1.5-2.2 Hyponatremia Hypoglycemia resolved HF CAP Ultrasound was reviewed. IV diuretics stopped and the patient is currently on normal saline at 100 mL/h. Repeat bladder scan tomorrow. Patient was started back on Flomax. 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 He was given the opportunity to ask questions and stated that those were answered to his satisfaction. Thank you very much for allowing me to participate in the care of this patient. Please do not hesitate to call if you have any any questions or concerns
[2020-08-17] MEDS: Tamsulosin HCl 0.4 MG Capsule PO (16:49)
[2020-08-17 16:55] LABS: Bedside Glucose 120 mg/dL (70-110)
--- NOTE | 2020-08-17 20:49 | PCS.PANDOC ---
PANDEMIC DOCUMENTATION INITIATED: Date: 08/16/20 Time: 1600
[2020-08-17] MEDS: Ceftriaxone 1 GM/50 ML BAG IV (21:51)
[2020-08-17] MEDS: Rosuvastatin 20 MG Tablet 40 MG PO (21:55)
[2020-08-18] VITALS (17 sets, daily range): BP systolic 97–105; BP diastolic 53–70; PULSE 84–99; RESP 16–20; TEMP 36.5–36.7; O2SAT 95–99
[2020-08-18 00:05] LABS: Bedside Glucose 139 mg/dL (70-110)
[2020-08-18] MEDS: Ondansetron 4 MG/2 ML Vial IV ×2 (00:19→08:58)
[2020-08-18] MEDS: Acetaminophen 325 MG Tablet 650 MG PO ×2 (00:41→06:50)
[2020-08-18] MEDS: oxyCODONE 5 MG Tablet 7.5 MG PO ×2 (00:43→06:50)
[2020-08-18] MEDS: Albuterol 2.5 MG/3 ML VIAL.NEB. INHALATION ×3 (02:16→23:06)
[2020-08-18 06:02] LABS: Absolute Lymphocyte Count 0.49 X10^3/uL (0.83-4.51); Basophil# 0.01 X10^3/uL; Basophil% 0.1 % (0-1); Hematocrit 37.7 % (40-54); Hemoglobin 12.5 g/dL (13.0-16.5); Lymphocyte # 0.49 X10^3/ul (4.0); Lymphocyte % 4.9 % (19-41); Mean Corp Hgb Conc 33.2 g/dL (32-36); Mean Corpuscular Hgb 30.5 pg (27.0-32.0); Mean Platelet Vol. 10.1 fl (6.2-12.0); Monocyte# 0.54 X10^3/uL; Monocyte% 5.3 % (0-10); NRBC Flagged by Analyzer 0 % (0-5); Neutrophil # 9.02 X10^3/uL (2.7-7.7); Neutrophil % 89.3 % (47-70); POSITIVE DIFFERENTIAL YES; Platelet Count 145 K/mm3 (150-450); RBC Distribution Width CV 14.9 % (11.6-14.6); RBC Distribution Width SD 50.3 fl (35.1-43.9); White Blood Count 10.1 K/mm3 (4.4-11.0)
[2020-08-18 06:05] LABS: Differential Indicated SCAN CRITERIA MET
[2020-08-18] MEDS: Heparin Injection (Vial) 5,000 UNIT/ML VIAL 5000 UNIT SC ×3 (06:11→21:42)
[2020-08-18] MEDS: Levothyroxine 25 MCG TABLET PO (06:11)
[2020-08-18] MEDS: 0.9% Normal Saline 1,000 ML 100 ML IV (06:12)
[2020-08-18 06:26] LABS: Bedside Glucose 104 mg/dL (70-110)
[2020-08-18 06:50] LABS: Anion Gap 12 (5-15); BUN 85 mg/dL (7-18); BUN/Creat Ratio 12.2 RATIO (10-20); Calcium,Total 6.7 mg/dL (8.5-10.1); Chloride 99 mmol/L (98-107); Creatinine, Serum 6.94 mg/dL (0.70-1.30); EST Glomerular Filtration Rate 8 mL/min (>60); Est Glom Filt Rate - Afr Amer 10 mL/min (>60); Estimated Creatinine Clearance 10.05 ml/min; Glucose 111 mg/dL (74-106); Potassium 3.5 mmol/L (3.5-5.1); Sodium Level 134 mmol/L (136-145)
[2020-08-18 06:55] LABS: Differential Comment SCANNED
[2020-08-18] MEDS: Ipratropium/Albuterol Sulfate 3 ML AMPUL.NEB INHALATION ×3 (07:12→19:52)
--- NOTE | 2020-08-18 07:50 | PCM.PROGNOTE ---
Subjective: Chief complaint: Follow-up after admission for JILLIAN on CKD, recurrent hypoglycemia, probable pneumonia and abnormal cardiac enzymes. Patient seen and examined. No acute events overnight. This morning, he complains of increasing back pain and requested to increase OxyIR. Denied worsening shortness of breath, still having mild cough. He is afebrile, blood pressure and heart rate are maintained, pulse ox is 97% on 2 L. - Physical Exam Vitals/I&O's: Vital Signs Temp Pulse Resp BP Pulse Ox 97.8 F 89 18 105/70 97 08/18/20 06:00 08/18/20 06:46 08/18/20 06:00 08/18/20 06:00 08/18/20 06:00 Oxygen Flow Rate (L/min) 2 Oxygen Delivery Method Nasal Cannula Weight: 204 lb 5.896 oz Body Mass Index (BMI) 30.2 Finger Stick Blood Glucose 195 Intake and Output for Last 24 Hours 08/16/20 08/17/20 08/18/20 23:59 23:59 23:59 Intake Total 485 / 485 2406.67 / 2646.67 1673.33 / 1673.33 Output Total 1450 / 1450 350 / 350 Balance 485 / 485 956.67 / 1196.67 1323.33 / 1323.33 General: Alert, Oriented x3, Cooperative, - - He is in moderate pain. HEENT: Atraumatic, PERRLA, EOMI, Normocephalic Oral: Moist Mucosa, No Gingival or Mucosal Lesions/ Ulcerations Neck: Supple, No JVD, Negative Carotid Bruits, Trachea Midline, Thyroid Normal Size and Texture Lungs: Clear to auscultation, No rhonchi, No wheeze, No rales, Diminished, - - Decreased breath sounds at the bases, otherwise clear. Cardiovascular: Regular rate, Regular Rhythm, Normal S1, Normal S2, PMI Normal Abdomen: Bowel Sounds Present, Soft, Non Tender, Non-Distended, No Hepato-splenomegaly, Obese Extremities: No clubbing, No cyanosis, No edema Skin: No rashes, No breakdown Lymphatic: No Cervical, Supraclavicular, or Inguinal Adenopathy Neurological: Cranial nerves II-XII grossly intact, Neuro grossly intact Psych/Mental Status: Normal Affect, Appropriate, Alert and oriented to time, place, person, mood and affect Microbiology Past 72 Hours 08/17/20 02:00 Mucosa - Nasopharyngeal Respiratory Panel (PCR) - Final 08/17/20 03:15 Urine, Random Legionella Antigen - Final 08/17/20 03:15 Urine, Random Streptococcus pneumoniae Antigen (M - Final 08/16/20 17:15 Mucosa - Nose SARS-CoV-2 Antigen (Rapid) - Final Laboratory Results 08/17/20 12:16: POC Glucose 132 H 08/17/20 16:40: POC Glucose 120 H 08/18/20 00:00: POC Glucose 139 H 08/18/20 05:32: WBC 10.1, RBC 4.10 L, Hgb 12.5 L, Hct 37.7 L, MCV 92.0, MCH 30.5, MCHC 33.2, RDW Std Deviation 50.3 H, RDW Coeff of Maggie 14.9 H, Plt Count 145 L, MPV 10.1, Immature Gran % (Auto) 0.400, Neut % (Auto) 89.3 H, Lymph % (Auto) 4.9 L, [place] % (Auto) 5.3, Eos % (Auto) 0.0, Baso % (Auto) 0.1, Absolute Neuts (auto) 9.0 H, Absolute Lymphs (auto) 0.49 L, Nucleated RBC % 0, Differential Comment SCANNED 08/18/20 05:32: Sodium 134 L, Potassium 3.5, Chloride 99, Carbon Dioxide 23.0, Anion Gap 12, BUN 85 H, Creatinine 6.94 H, Estim Creat Clear Calc 10.05, Est GFR (MDRD) Af Amer 10 L, Est GFR (MDRD) Non-Af 8 L, BUN/Creatinine Ratio 12.2, Glucose 111 H, Calcium 6.7 L 08/18/20 06:20: POC Glucose 104 Clinical Impression(s) from Imaging Studies Renal Ultrasound 08/17/20 00:03 IMPRESSION: Normal ultrasound of the kidneys and urinary bladder. Electronically Signed: Christian Bauman MD ([place]) at 9:55 EST , Service support , Foot X-Ray 08/17/20 08:45 IMPRESSION: No fracture or malalignment. Electronically Signed: Christian Bauman MD ([place]) at 9:53 EST , Service support , Current Medications Acetaminophen (Acetaminophen 325 Mg Tablet) 650 mg PO Q6H PRN PRN PRN Reason: Pain Score 1-10/Temp > 100.7 F Last Admin: 08/18/20 06:50 Dose: 650 mg Documented by: Albuterol Sulfate (Albuterol 2.5 Mg/3 Ml Vial.Neb.) 2.5 mg INHALATION Q2H PRN PRN PRN Reason: SOB/Wheezing Last Admin: 08/18/20 02:16 Dose: 2.5 mg Documented by: Albuterol/Ipratropium (Ipratropium/Albuterol Sulfate 3 Ml Ampul.Neb) 3 ml INHALATION Q6HWA.RT [facility] Last Admin: 08/18/20 07:12 Dose: 3 ml Documented by: Allopurinol (Allopurinol 300 Mg Tablet) 300 mg PO DAILYCM [facility] Last Admin: 08/17/20 08:12 Dose: 300 mg Documented by: Carvedilol (Carvedilol 6.25 Mg Tablet) 6.25 mg PO BID [facility] Last Admin: 08/17/20 22:00 Dose: Not Given Documented by: Clopidogrel Bisulfate (Clopidogrel Bisulfate 75 Mg Tablet) 75 mg PO DAILY [facility] Last Admin: 08/17/20 08:12 Dose: 75 mg Documented by: Heparin Sodium (Porcine) (Heparin Injection (Vial) 5,000 Unit/Ml Vial) 5,000 unit SC Q8 [facility] Last Admin: 08/18/20 06:11 Dose: 5,000 unit Documented by: Ceftriaxone Sodium (Rocephin) 1 gm in 50 mls @ 100 mls/hr IV Q24@2200 [facility] Last Infusion: 08/17/20 22:38 Dose: Infused Documented by: Azithromycin 500 mg/ Dextrose 255 mls @ 250 mls/hr IV Q24@2200 [facility] Last Infusion: 08/18/20 00:28 Dose: Infused Documented by: Sodium Chloride () 1,000 mls @ 100 mls/hr IV .Q10H [facility] Last Admin: 08/18/20 06:12 Dose: 100 mls/hr Documented by: Insulin Human Lispro (Insulin Lispro 100 Unit/Ml Insuln.Pen) 0 unit SC Q6 [facility]; Protocol Last Admin: 08/18/20 06:48 Dose: Not Given Documented by: Isosorbide Mononitrate (Isosorbide Mononitrate 30 Mg Tablet) 30 mg PO DAILY [facility] Last Admin: 08/17/20 14:21 Dose: 30 mg Documented by: Levothyroxine Sodium (Levothyroxine 25 Mcg Tablet) 25 mcg PO DAILY@0600 [facility] Last Admin: 08/18/20 06:11 Dose: 25 mcg Documented by: Nicotine (Nicotine 14 Mg Patch) 14 mg TD DAILY [facility] Last Admin: 08/17/20 08:12 Dose: 14 mg Documented by: Nitroglycerin (Nitroglycerin (Inpatient Use) 0.4 Mg Tab.Subl) 0.4 mg SUBLINGUAL Q5M PRN PRN Reason: CHEST PAIN Ondansetron HCl (Ondansetron 4 Mg/2 Ml Vial) 4 mg IV Q8H PRN PRN PRN Reason: NAUSEA/VOMITING Last Admin: 08/18/20 00:19 Dose: 4 mg Documented by: Oxycodone HCl (Oxycodone 5 Mg Tablet) 10 mg PO Q6H PRN PRN PRN Reason: Pain Score 6-10 Pantoprazole Sodium (Pantoprazole Sodium 40 Mg Tablet) 40 mg PO DAILY [facility] Last Admin: 08/17/20 08:12 Dose: 40 mg Documented by: Rosuvastatin Calcium (Rosuvastatin 20 Mg Tablet) 40 mg PO DAILY@2200 [facility] Last Admin: 08/17/20 21:55 Dose: 40 mg Documented by: Tamsulosin HCl (Tamsulosin Hcl 0.4 Mg Capsule) 0.4 mg PO DAILY@1730 [facility] Last Admin: 08/17/20 16:49 Dose: 0.4 mg Documented by: Medical Necessity - Tobacco Use Smoking Status: Current every day smoker Tobacco Use: Cigarettes Assessment/Plan This is a 70 years old male patient presented to the emergency room because of worsening shortness of breath and dry cough as well as dizziness, found to have JILLIAN on CKD, acute hyperglycemia and probable pneumonia. #3 acute kidney injury on top of stage III chronic kidney disease: Currently, patient is on IV fluids, IV diuretics discontinued. His kidney function continued to worsen, today's creatinine is 6.94, it was 5.09 yesterday. Baseline creatinine has been around 1.3- 2 mg/dL, admission creatinine was 4.52. Ultrasound kidneys was normal, no evidence of obstructive uropathy, no stones. Patient does have good urine output. Nephrology on the case. Patient may need to go for dialysis if kidney function continues to worsen. Plan: Continue IV fluids, avoid nephrotoxic drugs, repeat BMP tomorrow morning. #2 Mild acute on chronic systolic CHF: Patient was IV Lasix for diuresis, on Coreg, isosorbide mononitrate as well. IV Lasix continued and patient has been on IV fluids because of worsening kidney function. Respiratory status remained stable, remains on 2 L of oxygen. He had 2D echocardiogram on June, that showed ejection fraction 15%, other findings reviewed. Troponin was borderline elevated likely because of demand ischemia. Plan: Continue IV fluids, monitor volume status. #3 probable community-acquired pneumonia: He is on IV Rocephin Zithromax. He has been afebrile, WBC is back to normal. He remains on 2 L of oxygen. Pneumococcal and Legionella antigen were negative. COVID-19 antigen came back negative. COVID-19 PCR also negative. Respiratory panel for viruses were negative. Plan to continue same treatment. #4 recurrent hypoglycemia: This likely because of sulfonylurea, patient has been taking glimepiride in the setting of worsening kidney function. Glimepiride held. Blood sugar stabilized. Continue Accu-Cheks and sliding scale. #5 Chronic systolic CHF/ischemic cardiomyopathy/status post ICD: Plan as above. #6 hypertension: Currently, blood pressure stable, asymptomatic, continue Coreg and nitrates. #7 COPD: Patient use oxygen at night at 2 L. Chest x-ray reviewed. He is on DuoNeb and albuterol. #8 type 2 diabetes mellitus: With frequent hypoglycemia due to taking sulfonylurea in the setting of JILLIAN on CKD. Blood sugar stabilized. Plan as above. #9 CAD status post CABG and stents: Continue Coreg, nitrate. #10 hyperlipidemia: Continue statins. #11 GERD: Continue Protonix. #12 DVT prophylaxis: Subcu heparin. This note was generated with [employer]elTree[employer] software. It may contain incorrect words, spelling, and punctuation that were not noted in checking the note before signing. Inpatient E&M: [id number] [facility] L3
[2020-08-18 09:25] LABS: Bedside Glucose 113 mg/dL (70-110)
[2020-08-18] MEDS: Allopurinol 300 MG Tablet PO (10:54)
[2020-08-18] MEDS: Pantoprazole Sodium 40 MG Tablet PO (10:55)
[2020-08-18] MEDS: Isosorbide Mononitrate 30 MG Tablet PO (10:55)
[2020-08-18] MEDS: Clopidogrel Bisulfate 75 MG Tablet PO (10:55)
[2020-08-18] MEDS: proMETHazine 25 MG/ML Syringe 6.25 MG IV ×2 (12:25→19:13)
[2020-08-18] MEDS: oxyCODONE 5 MG Tablet 10 MG PO ×2 (12:29→18:53)
[2020-08-18 12:45] LABS: Bedside Glucose 109 mg/dL (70-110)
--- NOTE | 2020-08-18 15:12 | PN_ITS ---
Subjective: Patient seen and examined bedside. Patient denies any new pedal complaints. Patient denies any nausea, fever, chills, chest pain, shortness of breath, cough, streaking, purulence, vomiting. - Physical Exam Vitals/I&O's: Vital Signs Temp Pulse Resp BP Pulse Ox 97.7 F L 96 18 105/53 L 99 08/18/20 10:56 08/18/20 13:24 08/18/20 13:24 08/18/20 10:56 08/18/20 10:56 Oxygen Flow Rate (L/min) 2.5 Oxygen Delivery Method Nasal Cannula Weight: 92.7 kg Body Mass Index (BMI) 30.2 Finger Stick Blood Glucose 195 Intake and Output for Last 24 Hours 08/16/20 08/17/20 08/18/20 23:59 23:59 23:59 Intake Total 485 / 485 2406.67 / 2646.67 1673.33 / 1673.33 Output Total 1450 / 1450 350 / 350 Balance 485 / 485 956.67 / 1196.67 1323.33 / 1323.33 General: Alert, Oriented x3 HEENT: Atraumatic Abdomen: Obese Extremities: No clubbing, No cyanosis, No edema, Capillary Refill Less than 3 Seconds, No Calf Tenderness - Mild to right hallux, Peripheral Pulses Normal, Tenderness Skin: - - There is a red discoloration noted to the dorsal aspect of right hallux at the level of the IPJ approximately 1 cm x 2 cm. There is no drainage. site is stable. There is mild pain to compression. No pain with range of motion. Hx of trauma at this area. No breaks in the skin Musculoskeletal: Tenderness - Right hallux Neurological: Sensory exam intact to light touch and pain Psych/Mental Status: Normal Affect, Appropriate Microbiology Past 72 Hours 08/17/20 02:00 Mucosa - Nasopharyngeal Respiratory Panel (PCR) - Final 08/17/20 03:15 Urine, Random Legionella Antigen - Final 08/17/20 03:15 Urine, Random Streptococcus pneumoniae Antigen (M - Final 08/16/20 17:15 Mucosa - Nose SARS-CoV-2 Antigen (Rapid) - Final Laboratory Results 08/17/20 16:40: POC Glucose 120 H 08/18/20 00:00: POC Glucose 139 H 08/18/20 05:32: WBC 10.1, RBC 4.10 L, Hgb 12.5 L, Hct 37.7 L, MCV 92.0, MCH 30.5, MCHC 33.2, RDW Std Deviation 50.3 H, RDW Coeff of Maggie 14.9 H, Plt Count 145 L, MPV 10.1, Immature Gran % (Auto) 0.400, Neut % (Auto) 89.3 H, Lymph % (Auto) 4.9 L, [place] % (Auto) 5.3, Eos % (Auto) 0.0, Baso % (Auto) 0.1, Absolute Neuts (auto) 9.0 H, Absolute Lymphs (auto) 0.49 L, Nucleated RBC % 0, Differential Comment SCANNED 08/18/20 05:32: Sodium 134 L, Potassium 3.5, Chloride 99, Carbon Dioxide 23.0, A nion Gap 12, BUN 85 H, Creatinine 6.94 H, Estim Creat Clear Calc 10.05, Est GFR (MDRD) Af Amer 10 L, Est GFR (MDRD) Non-Af 8 L, BUN/Creatinine Ratio 12.2, Glucose 111 H, Calcium 6.7 L 08/18/20 06:20: POC Glucose 104 08/18/20 08:26: POC Glucose 113 H 08/18/20 12:31: POC Glucose 109 Current Medications Acetaminophen (Acetaminophen 325 Mg Tablet) 650 mg PO Q6H PRN PRN PRN Reason: Pain Score 1-10/Temp > 100.7 F Last Admin: 08/18/20 06:50 Dose: 650 mg Documented by: Albuterol Sulfate (Albuterol 2.5 Mg/3 Ml Vial.Neb.) 2.5 mg INHALATION Q2H PRN PRN PRN Reason: SOB/Wheezing Last Admin: 08/18/20 09:39 Dose: 2.5 mg Documented by: Albuterol/Ipratropium (Ipratropium/Albuterol Sulfate 3 Ml Ampul.Neb) 3 ml INHALATION Q6HWA.RT [facility] Last Admin: 08/18/20 13:24 Dose: 3 ml Documented by: Allopurinol (Allopurinol 300 Mg Tablet) 300 mg PO DAILYCM [facility] Last Admin: 08/18/20 10:54 Dose: 300 mg Documented by: Carvedilol (Carvedilol 6.25 Mg Tablet) 6.25 mg PO BID [facility] Last Admin: 08/18/20 10:54 Dose: Not Given Documented by: Clopidogrel Bisulfate (Clopidogrel Bisulfate 75 Mg Tablet) 75 mg PO DAILY [facility] Last Admin: 08/18/20 10:55 Dose: 75 mg Documented by: Heparin Sodium (Porcine) (Heparin Injection (Vial) 5,000 Unit/Ml Vial) 5,000 unit SC Q8 [facility] Last Admin: 08/18/20 13:47 Dose: 5,000 unit Documented by: Ceftriaxone Sodium (Rocephin) 1 gm in 50 mls @ 100 mls/hr IV Q24@2200 [facility] Last Infusion: 08/17/20 22:38 Dose: Infused Documented by: Azithromycin 500 mg/ Dextrose 255 mls @ 250 mls/hr IV Q24@2200 [facility] Last Infusion: 08/18/20 00:28 Dose: Infused Documented by: Sodium Chloride () 1,000 mls @ 100 mls/hr IV .Q10H [facility] Last Admin: 08/18/20 06:12 Dose: 100 mls/hr Documented by: Sodium Chloride () 250 mls @ 15 mls/hr IV .[id number] PRN PRN Reason: Saline Flush Sodium Chloride () 250 mls @ 15 mls/hr IV .[id number] PRN PRN Reason: Additional IVPB Infusion Insulin Human Lispro (Insulin Lispro 100 Unit/Ml Insuln.Pen) 0 unit SC Q6 [facility]; Protocol Last Admin: 08/18/20 12:31 Dose: Not Given Documented by: Isosorbide Mononitrate (Isosorbide Mononitrate 30 Mg Tablet) 30 mg PO DAILY [facility] Last Admin: 08/18/20 10:55 Dose: 30 mg Documented by: Levothyroxine Sodium (Levothyroxine 25 Mcg Tablet) 25 mcg PO DAILY@0600 [facility] Last Admin: 08/18/20 06:11 Dose: 25 mcg Documented by: Nicotine (Nicotine 14 Mg Patch) 14 mg TD DAILY [facility] Last Admin: 08/18/20 09:00 Dose: 14 mg Documented by: Nitroglycerin (Nitroglycerin (Inpatient Use) 0.4 Mg Tab.Subl) 0.4 mg SUBLINGUAL Q5M PRN PRN Reason: CHEST PAIN Ondansetron HCl (Ondansetron 4 Mg/2 Ml Vial) 4 mg IV Q8H PRN PRN PRN Reason: NAUSEA/VOMITING Last Admin: 08/18/20 08:58 Dose: 4 mg Documented by: Oxycodone HCl (Oxycodone 5 Mg Tablet) 10 mg PO Q6H PRN PRN PRN Reason: Pain Score 6-10 Last Admin: 08/18/20 12:29 Dose: 10 mg Documented by: Pantoprazole Sodium (Pantoprazole Sodium 40 Mg Tablet) 40 mg PO DAILY [facility] Last Admin: 08/18/20 10:55 Dose: 40 mg Documented by: Promethazine HCl (Promethazine 25 Mg/Ml Syringe) 6.25 mg IV Q6H PRN PRN PRN Reason: NAUSEA/VOMITING Last Admin: 08/18/20 12:25 Dose: 6.25 mg Documented by: Rosuvastatin Calcium (Rosuvastatin 20 Mg Tablet) 40 mg PO DAILY@2200 [facility] Last Admin: 08/17/20 21:55 Dose: 40 mg Documented by: Sodium Chloride (0.9% Saline Lock 10 Ml Syringe) 10 - 40 ml IV UD PRN PRN Reason: SALINE FLUSH Tamsulosin HCl (Tamsulosin Hcl 0.4 Mg Capsule) 0.4 mg PO DAILY@1730 [facility] Last Admin: 08/17/20 16:49 Dose: 0.4 mg Documented by: Medical Necessity - Tobacco Use Smoking Status: Current every day smoker Tobacco Use: Cigarettes Assessment/Plan Right hallux pain Ecchymosis right hallux History of trauma right hallux Diabetes CHF, COPD, hypoxemia Patient seen and examined bedside Patient noted to have slammed toe in door 08/16/20 and has not had this worked up. Recommend x-ray to assess for any possible fractures X-ray reviewed demonstrating no fracture There is no breaks in the skin no dressing is necessary, no signs of infection Weightbearing and activity as tolerated Podiatry will continue to follow on a weekly basis if patient remains in hospital Discussed with patient the normal course of healing for a bruise of his this type to his foot. Patient understood and all questions were answered. Please follow-up with Dr. Thomas as necessary of the [facility] if toe pain continues or worsens Please contact if any concerns or questions Neva Thomas DPM [facility] [phone] This note was generated with Dragon dictation software. It may contain incorrect words, spelling, and punctuation that were not noted in checking the note before signing.
--- NOTE | 2020-08-18 16:32 | PN.RENAL_ITS ---
Subjective: Patient has SOB but stable. On NC at 2 l/min He said he is making urine his limbs are shaky No urinary obstructive symptoms has nausea No vomiting. eating well - Physical Exam Vitals/I&O's: Vital Signs Temp Pulse Resp BP Pulse Ox 97.7 F L 92 18 105/53 L 99 08/18/20 10:56 08/18/20 15:02 08/18/20 13:24 08/18/20 10:56 08/18/20 10:56 Oxygen Flow Rate (L/min) 2.5 Oxygen Delivery Method Nasal Cannula Weight: 92.7 kg Body Mass Index (BMI) 30.2 Finger Stick Blood Glucose 195 Intake and Output for Last 24 Hours 08/16/20 08/17/20 08/18/20 23:59 23:59 23:59 Intake Total 485 / 485 2406.67 / 2646.67 2153.33 / 2153.33 Output Total 1450 / 1450 1075 / 1075 Balance 485 / 485 956.67 / 1196.67 1078.33 / 1078.33 General: Alert, Oriented x3 HEENT: Atraumatic Oral: Moist Mucosa Neck: Supple, No JVD Lungs: Clear to auscultation, Normal air movement, No rhonchi, No wheeze Cardiovascular: Regular rate, Regular Rhythm, Normal S1, Normal S2 Abdomen: Bowel Sounds Present, Soft, Non Tender Extremities: No clubbing, No cyanosis, No edema Skin: No rashes Musculoskeletal: No Tenderness to Palpation of Joints or Extremities Lymphatic: No Cervical, Supraclavicular, or Inguinal Adenopathy Neurological: Cranial nerves II-XII grossly intact, Neuro grossly intact Psych/Mental Status: Appropriate Microbiology Past 72 Hours 08/17/20 02:00 Mucosa - Nasopharyngeal Respiratory Panel (PCR) - Final 08/17/20 03:15 Urine, Random Legionella Antigen - Final 08/17/20 03:15 Urine, Random Streptococcus pneumoniae Antigen (M - Final 08/16/20 17:15 Mucosa - Nose SARS-CoV-2 Antigen (Rapid) - Final Laboratory Results 08/17/20 16:40: POC Glucose 120 H 08/18/20 00:00: POC Glucose 139 H 08/18/20 05:32: WBC 10.1, RBC 4.10 L, Hgb 12.5 L, Hct 37.7 L, MCV 92.0, MCH 30.5, MCHC 33.2, RDW Std Deviation 50.3 H, RDW Coeff of Maggie 14.9 H, Plt Count 145 L, MPV 10.1, Immature Gran % (Auto) 0.400, Neut % (Auto) 89.3 H, Lymph % (Auto) 4.9 L, [place] % (Auto) 5.3, Eos % (Auto) 0.0, Baso % (Auto) 0.1, Absolute Neuts (auto) 9.0 H, Absolute Lymphs (auto) 0.49 L, Nucleated RBC % 0, Differential Comment SCANNED 08/18/20 05:32: Sodium 134 L, Potassium 3.5, Chloride 99, Carbon Dioxide 23.0, Anion Gap 12, BUN 85 H, Creatinine 6.94 H, Estim Creat Clear Calc 10.05, Est GFR (MDRD) Af Amer 10 L, Est GFR (MDRD) Non-Af 8 L, BUN/Creatinine Ratio 12.2, Glucose 111 H, Calcium 6.7 L 08/18/20 06:20: POC Glucose 104 08/18/20 08:26: POC Glucose 113 H 08/18/20 12:31: POC Glucose 109 Current Medications Acetaminophen (Acetaminophen 325 Mg Tablet) 650 mg PO Q6H PRN PRN PRN Reason: Pain Score 1-10/Temp > 100.7 F Last Admin: 08/18/20 06:50 Dose: 650 mg Documented by: Albuterol Sulfate (Albuterol 2.5 Mg/3 Ml Vial.Neb.) 2.5 mg INHALATION Q2H PRN PRN PRN Reason: SOB/Wheezing Last Admin: 08/18/20 09:39 Dose: 2.5 mg Documented by: Albuterol/Ipratropium (Ipratropium/Albuterol Sulfate 3 Ml Ampul.Neb) 3 ml INHALATION Q6HWA.RT [facility] Last Admin: 08/18/20 13:24 Dose: 3 ml Documented by: Allopurinol (Allopurinol 300 Mg Tablet) 300 mg PO DAILYCM [facility] Last Admin: 08/18/20 10:54 Dose: 300 mg Documented by: Carvedilol (Carvedilol 6.25 Mg Tablet) 6.25 mg PO BID [facility] Last Admin: 08/18/20 10:54 Dose: Not Given Documented by: Clopidogrel Bisulfate (Clopidogrel Bisulfate 75 Mg Tablet) 75 mg PO DAILY [facility] Last Admin: 08/18/20 10:55 Dose: 75 mg Documented by: Heparin Sodium (Porcine) (Heparin Injection (Vial) 5,000 Unit/Ml Vial) 5,000 unit SC Q8 [facility] Last Admin: 08/18/20 13:47 Dose: 5,000 unit Documented by: Ceftriaxone Sodium (Rocephin) 1 gm in 50 mls @ 100 mls/hr IV Q24@2200 [facility] Last Infusion: 08/17/20 22:38 Dose: Infused Documented by: Azithromycin 500 mg/ Dextrose 255 mls @ 250 mls/hr IV Q24@2200 [facility] Last Infusion: 08/18/20 00:28 Dose: Infused Documented by: Sodium Chloride () 250 mls @ 15 mls/hr IV .[id number] PRN PRN Reason: Saline Flush Sodium Chloride () 250 mls @ 15 mls/hr IV .[id number] PRN PRN Reason: Additional IVPB Infusion Insulin Human Lispro (Insulin Lispro 100 Unit/Ml Insuln.Pen) 0 unit SC Q6 [facility]; Protocol Last Admin: 08/18/20 12:31 Dose: Not Given Documented by: Isosorbide Mononitrate (Isosorbide Mononitrate 30 Mg Tablet) 30 mg PO DAILY [facility] Last Admin: 08/18/20 10:55 Dose: 30 mg Documented by: Levothyroxine Sodium (Levothyroxine 25 Mcg Tablet) 25 mcg PO DAILY@0600 [facility] Last Admin: 08/18/20 06:11 Dose: 25 mcg Documented by: Nicotine (Nicotine 14 Mg Patch) 14 mg TD DAILY [facility] Last Admin: 08/18/20 09:00 Dose: 14 mg Documented by: Nitroglycerin (Nitroglycerin (Inpatient Use) 0.4 Mg Tab.Subl) 0.4 mg SUBLINGUAL Q5M PRN PRN Reason: CHEST PAIN Ondansetron HCl (Ondansetron 4 Mg/2 Ml Vial) 4 mg IV Q8H PRN PRN PRN Reason: NAUSEA/VOMITING Last Admin: 08/18/20 08:58 Dose: 4 mg Documented by: Oxycodone HCl (Oxycodone 5 Mg Tablet) 10 mg PO Q6H PRN PRN PRN Reason: Pain Score 6-10 Last Admin: 08/18/20 12:29 Dose: 10 mg Documented by: Pantoprazole Sodium (Pantoprazole Sodium 40 Mg Tablet) 40 mg PO DAILY [facility] Last Admin: 08/18/20 10:55 Dose: 40 mg Documented by: Promethazine HCl (Promethazine 25 Mg/Ml Syringe) 6.25 mg IV Q6H PRN PRN PRN Reason: NAUSEA/VOMITING Last Admin: 08/18/20 12:25 Dose: 6.25 mg Documented by: Rosuvastatin Calcium (Rosuvastatin 20 Mg Tablet) 40 mg PO DAILY@2200 [facility] Last Admin: 08/17/20 21:55 Dose: 40 mg Documented by: Sodium Chloride (0.9% Saline Lock 10 Ml Syringe) 10 - 40 ml IV UD PRN PRN Reason: SALINE FLUSH Tamsulosin HCl (Tamsulosin Hcl 0.4 Mg Capsule) 0.4 mg PO DAILY@1730 [facility] Last Admin: 08/17/20 16:49 Dose: 0.4 mg Documented by: Medical Necessity - Tobacco Use Smoking Status: Current every day smoker Tobacco Use: Cigarettes Assessment/Plan 1- JILLIAN on CKD stage 3. baseline Cr 1.5-1.6 mg/dl CKD is likely from CRS and chronic use of high dose of NSAIDs JILLIAN is likely ATN from low BP, poor intake lasix stopped on 08/17 and patient started on NS at 100 cc/hour. Cr continues to worsens. Cr is up to 6.9 mg/dl and BUN > 80 Bladder scan today showed only 280 cc. Patient is making urine Patient looks uremic with shakiness and nauseas. Patient has very low EF at 15% No urgent need for HD today but [facility] SPECIALIST is indicated. Will consult surgery for HD access placement Will arrange for HD session tomorrow after placing Keep MAP > 65. hold home ARB. Continue holding diuretic Will d/c IVF Will check urine Na and Urine Cr to calculate FeNa 2- hypotensive likely from low EF Will d/c IVF to avoid CHF exacerbation 3- CHF low EF. seems compensating. d/c IVF UF tomorrow as tolerated with HD session. might have to use midodrine before HD 4-Pneumonia. On Ceftriaxone and Azithromycin ads per the primary service Renal team will continue to follow. Please call if any question or concern at [phone] Louis Mariscal MD
[2020-08-18 17:06] LABS: Bedside Glucose 123 mg/dL (70-110)
[2020-08-18] MEDS: Tamsulosin HCl 0.4 MG Capsule PO (17:19)
--- NOTE | 2020-08-18 17:19 | CON.PCM_ITS ---
Problem List (1) Chronic renal failure, stage 3 (moderate) Status: Chronic Reason for Consult Date of Consultation: 08/18/20 History of Present Illness: The patient is a 70 year old M here with acute on chronic kidney disease with renal failure and need for dialysis catheter. The patient reportedly is making small urine his creatinine continues to rise nephrology consulted me for dialysis catheter placement. Past Medical History Past Medical History (Chronic Problems): Chronic Problems (Last Reviewed 07/16/20 @ 15:[address] Ravin Ortega, DO) Smoking greater than 30 pack years (Chronic) Appropriate for low-dose CT lung screening due January 2021 History of left heart catheterization (Chronic 07/17/20) LEFT MAIN: Angiographically normal;LEFT ANTERIOR DESCENDING ARTERY: PROX LAD: Moderate calcification MID LAD: is occluded with the mid to distal vessel filling late, DIAGONAL 1: Proximal - is occluded with the distal vessel filling late and faintly; CIRCUMFLEX ARTERY: Mild luminal irregularities, MID CIRC: 50 % Stenosis; RIGHT CORONARY ARTERY: not evaluated (previously documented as chronically occluded); GRAFTS: HUMPHREY graft to the Mid LAD previously documented as small, atretic, and occluded; Saphenous Vein graft to the 1st Diagonal previously; documented as occluded; Saphenous Vein graft to the 1st OM previously placed stent is patent with subsequent mid 90 % stenosis and distal, pre bifurcation, hazy 75 % stenosis; Saphenous Vein graft to the RCA previously documented as occluded - per cardiac cath 07/17/20 - LVEF: by LV gram 15-20 %; [place] Multivessel CAD; Occluded [place] mid LAD. Occluded [place] proximal RCA. Occluded SVG to DIAG. Occluded SVG to RCA. Occluded HUMPHREY to LAD. Severe 85% stenosis in last remaining vessel of SVG to LCX with widely patent SVG stents. Severe LV dysfunction. Referred for immediate PCI: Will tx to [facility] for high risk PCI to last remaining vessel of SVG to OM. 06/29/19 per DANA @ [facility] Hypoxia, sleep related (Chronic) ARIADNA (obstructive sleep apnea) (Chronic) COPD (chronic obstructive pulmonary disease) (Chronic) FEV1 64% of predicted Obesity (BMI 30.0-34.9) (Chronic) Nicotine dependence (Chronic) Gout (Chronic) Degenerative cervical disc (Chronic) Chronic back pain (Chronic) Presence of automatic implantable cardioverter-defibrillator (Chronic) H/O coronary artery bypass surgery (Chronic ~2008) HUMPHREY-LAD, SVG-D1, SVG-OM Chronic renal failure, stage 3 (moderate) (Chronic) Chronic systolic (congestive) heart failure (Chronic) Stented coronary artery (Chronic ~12/2016) has had 7 stents as of 06/15/17 Ischemic cardiomyopathy (Chronic) 25% ejection fraction in November 2016 V-tach (Chronic) has an AICD Benign essential hypertension (Chronic) Gastroesophageal reflux disease (Chronic) Hyperlipidemia (Chronic) Type 2 diabetes mellitus (Chronic) Morbid obesity (Chronic) CAD (coronary artery disease) (Chronic) Medical History: Medical History (Last Reviewed 07/16/20 @ 15:[address] Ravin Ortega, DO) Nicotine dependence (Chronic) F17.200 Gout (Chronic) M10.9 Degenerative cervical disc (Chronic) M50.30 Chronic back pain (Chronic) M54.9, G89.29 Chronic renal failure, stage 3 (moderate) (Chronic) N18.3 Chronic systolic (congestive) heart failure (Chronic) I50.22 Ischemic cardiomyopathy (Chronic) I25.5 25% ejection fraction in November 2016 V-tach (Chronic) I47.2 has an AICD Benign essential hypertension (Chronic) I10 Gastroesophageal reflux disease (Chronic) K21.9 Hyperlipidemia (Chronic) E78.5 Type 2 diabetes mellitus (Chronic) E11.9 Morbid obesity (Chronic) E66.01 CAD (coronary artery disease) (Chronic) I25.10 Tubular adenoma of colon (Inactive) D12.6 Allergies chlorpromazine HCl [From Thorazine] Allergy (Severe, Verified 08/16/20 16:11) Hives PER PATIENT tramadol HCl [From Ultram] Allergy (Severe, Verified 08/16/20 16:11) Hives PER PATIENT codeine Allergy (Intermediate, Verified 08/16/20 16:11) Hives atorvastatin Adverse Reaction (Intermediate, Verified 08/16/20 16:11) LEG PAIN/CRAMPS LEG PAIN/CRAMPS cyclobenzaprine [From Flexeril] Adverse Reaction (Verified 08/16/20 16:11) Upset Stomach metformin Adverse Reaction (Verified 08/16/20 16:11) Upset Stomach naproxen Adverse Reaction (Verified 08/16/20 16:11) Upset Stomach Home Medications: Ambulatory Orders Medication Instructions Recorded Pantoprazole Sodium [Protonix] 40 mg PO DAILY 11/15/17 Rosuvastatin Calcium [Crestor] 40 mg PO DAILY 06/16/18 Clopidogrel Bisulfate [Plavix] 75 mg PO DAILY 09/01/18 Allopurinol 300 mg PO DAILY 09/20/18 Nitroglycerin 0.4 mg SL PRN PRN 12/01/18 Albuterol Inhaler [Ventolin Hfa] 2 puff INHALATION Q4H PRN PRN 02/24/19 Oxycodone HCl/Acetaminophen 1 tab PO Q6H PRN 05/02/19 [Oxycodon-Acetaminophen 7.5-325] aspirin 325 mg tablet,delayed 325 mg PO DAILY 10/05/19 release Carvedilol [Coreg (Beta Sina)] 6.25 mg PO BID 10/19/19 Furosemide [Lasix] 40 mg PO BID@1000,1800 10/19/19 Glimepiride [Amaryl] 1 mg PO DAILY 10/19/19 Levothyroxine [Synthroid] 25 mcg PO DAILY@0600 10/19/19 sacubitril 24 mg-valsartan 26 mg 1 tab PO BID #60 tab 12/21/19 tablet umeclidinium 62.5 mcg-vilanterol 1 inh INHALATION Q24H #1 ea 07/19/20 25 mcg/actuation powdr for inhalation Isosorbide Mononitrate [Isosorbide 30 mg PO DAILY 08/16/20 Mononitrate ER] Surgical History: Surgical History (Last Updated 07/17/20 @ 13:59 by Nafisa Coleman) History of left heart catheterization (Chronic) Onset Date: 07/17/20 Z98.890 LEFT MAIN: Angiographically normal;LEFT ANTERIOR DESCENDING ARTERY: PROX LAD: Moderate calcification MID LAD: is occluded with the mid to distal vessel filling late, DIAGONAL 1: Proximal - is occluded with the distal vessel filling late and faintly; CIRCUMFLEX ARTERY: Mild luminal irregularities, MID CIRC: 50 % Stenosis; RIGHT CORONARY ARTERY: not evaluated (previously documented as chronically occluded); GRAFTS: HUMPHREY graft to the Mid LAD previously documented as small, atretic, and occluded; Saphenous Vein graft to the 1st Diagonal previously; documented as occluded; Saphenous Vein graft to the 1st OM previously placed stent is patent with subsequent mid 90 % stenosis and distal, pre bifurcation, hazy 75 % stenosis; Saphenous Vein graft to the RCA previously documented as occluded - per cardiac cath 07/17/20 - LVEF: by LV gram 15-20 %; [place] Multivessel CAD; Occluded [place] mid LAD. Occluded [place] proximal RCA. Occluded SVG to DIAG. Occluded SVG to RCA. Occluded HU[place]Y to LAD. Severe 85% stenosis in last remaining vessel of SVG to LCX with widely patent SVG stents. Severe LV dysfunction. Referred for immediate PCI: Will tx to [facility] for high risk PCI to last remaining vessel of SVG to OM. 06/29/19 per JACKIEN @ [facility] Presence of automatic implantable cardioverter-defibrillator (Chronic) Z95.810 H/O coronary artery bypass surgery (Chronic) Onset Date: ~2008 Z95.1 [place]-LAD, SVG-D1, SVG-OM Stented coronary artery (Chronic) Onset Date: ~12/2016 has had 7 stents as of 06/15/17 Hx of hernia repair (Inactive) Z98.890, Z87.19 Previous back surgery (Inactive) Z98.890 Surgical History: angioplasty - stents x 10, coronary bypass surgery, - - AICD placement, back surgery x 2, hernia repair, PCI. Psychiatric History: No pertinent psych hx Lives: Spouse/ Significant Other Smoking Status: Current every day smoker Tobacco Use: Cigarettes Alcohol: None Drugs: None - *Family History Paternal Family History: Family History (Last Reviewed 07/16/20 @ 15:[address] Ravin Ortega DO) Brother CAD (coronary artery disease) Myocardial infarction Sudden cardiac Mother Cancer Hypertension Father Cancer COPD (chronic obstructive pulmonary disease) History Items: Cancer, Heart Disease Maternal Family History: Family History (Last Reviewed 07/16/20 @ 15:[address] Ravin Ortega DO) Brother CAD (coronary artery disease) Myocardial infarction Sudden cardiac Mother Cancer Hypertension Father Cancer COPD (chronic obstructive pulmonary disease) History Items: Cancer - lung, Hypertension, - - Patient notes a paternal family history of chronic lung disease, lung cancer with history of tobacco use. Review of Systems Constitutional: Denies: Anorexia, Fever Cardiovascular: Denies: Chest Pain Respiratory: Denies: Cough, Hemoptysis Gastrointestinal: Denies: Abdominal Pain, Nausea, Vomiting Genitourinary: Denies: Dysuria Musculoskeletal: Reports: Foot Pain Skin: Denies: Jaundice Neurological: Denies: Balance problems Hematologic/ Lymphatic: Denies: Anemia - Physical Exam Vitals/I&O's: Vital Signs Temp Pulse Resp BP Pulse Ox 97.7 F L 99 20 H 105/66 97 08/18/20 17:12 08/18/20 17:12 08/18/20 17:12 08/18/20 17:12 08/18/20 17:12 Oxygen Flow Rate (L/min) 2 Oxygen Delivery Method Nasal Cannula Weight: 204 lb 5.896 oz Body Mass Index (BMI) 30.2 Finger Stick Blood Glucose 195 Intake and Output for Last 24 Hours 08/16/20 08/17/20 08/18/20 23:59 23:59 23:59 Intake Total 485 / 485 2406.67 / 2646.67 3153.33 / 3153.33 Output Total 1450 / 1450 1075 / 1075 Balance 485 / 485 956.67 / 1196.67 2078.33 / 2078.33 General: Alert, Oriented x3 Neck: No JVD Lungs: Normal air movement Cardiovascular: Regular rate, Regular Rhythm Abdomen: Soft, Non Tender, Non-Distended Microbiology Past 72 Hours 08/17/20 02:00 Mucosa - Nasopharyngeal Respiratory Panel (PCR) - Final 08/17/20 03:15 Urine, Random Legionella Antigen - Final 08/17/20 03:15 Urine, Random Streptococcus pneumoniae Antigen (M - Final 08/16/20 17:15 Mucosa - Nose SARS-CoV-2 Antigen (Rapid) - Final Laboratory Results 08/18/20 00:00: POC Glucose 139 H 08/18/20 05:32: WBC 10.1, RBC 4.10 L, Hgb 12.5 L, Hct 37.7 L, MCV 92.0, MCH 30.5, MCHC 33.2, RDW Std Deviation 50.3 H, RDW Coeff of Maggie 14.9 H, Plt Count 145 L, MPV 10.1, Immature Gran % (Auto) 0.400, Neut % (Auto) 89.3 H, Lymph % (Auto) 4.9 L, [place] % (Auto) 5.3, Eos % (Auto) 0.0, Baso % (Auto) 0.1, Absolute Neuts (auto) 9.0 H, Absolute Lymphs (auto) 0.49 L, Nucleated RBC % 0, Differential Comment SCANNED 08/18/20 05:32: Sodium 134 L, Potassium 3.5, Chloride 99, Carbon Dioxide 23.0, Anion Gap 12, BUN 85 H, Creatinine 6.94 H, Estim Creat Clear Calc 10.05, Est GFR (MDRD) Af Amer 10 L, Est GFR (MDRD) Non-Af 8 L, BUN/Creatinine Ratio 12.2, Glucose 111 H, Calcium 6.7 L 08/18/20 06:20: POC Glucose 104 08/18/20 08:26: POC Glucose 113 H 08/18/20 12:31: POC Glucose 109 08/18/20 16:45: POC Glucose 123 H Current Medications Acetaminophen (Acetaminophen 325 Mg Tablet) 650 mg PO Q6H PRN PRN PRN Reason: Pain Score 1-10/Temp > 100.7 F Last Admin: 08/18/20 06:50 Dose: 650 mg Documented by: Albuterol Sulfate (Albuterol 2.5 Mg/3 Ml Vial.Neb.) 2.5 mg INHALATION Q2H PRN PRN PRN Reason: SOB/Wheezing Last Admin: 08/18/20 09:39 Dose: 2.5 mg Documented by: Albuterol/Ipratropium (Ipratropium/Albuterol Sulfate 3 Ml Ampul.Neb) 3 ml INHALATION Q6HWA.RT [facility] Last Admin: 08/18/20 13:24 Dose: 3 ml Documented by: Allopurinol (Allopurinol 300 Mg Tablet) 300 mg PO DAILYCM [facility] Last Admin: 08/18/20 10:54 Dose: 300 mg Documented by: Carvedilol (Carvedilol 6.25 Mg Tablet) 6.25 mg PO BID [facility] Last Admin: 08/18/20 10:54 Dose: Not Given Documented by: Clopidogrel Bisulfate (Clopidogrel Bisulfate 75 Mg Tablet) 75 mg PO DAILY [facility] Last Admin: 08/18/20 10:55 Dose: 75 mg Documented by: Heparin Sodium (Porcine) (Heparin Injection (Vial) 5,000 Unit/Ml Vial) 5,000 unit SC Q8 [facility] Last Admin: 08/18/20 13:47 Dose: 5,000 unit Documented by: Ceftriaxone Sodium (Rocephin) 1 gm in 50 mls @ 100 mls/hr IV Q24@2200 [facility] Last Infusion: 08/17/20 22:38 Dose: Infused Documented by: Azithromycin 500 mg/ Dextrose 255 mls @ 250 mls/hr IV Q24@2200 [facility] Last Infusion: 08/18/20 00:28 Dose: Infused Documented by: Sodium Chloride () 250 mls @ 15 mls/hr IV .[id number] PRN PRN Reason: Saline Flush Sodium Chloride () 250 mls @ 15 mls/hr IV .[id number] PRN PRN Reason: Additional IVPB Infusion Insulin Human Lispro (Insulin Lispro 100 Unit/Ml Insuln.Pen) 0 unit SC Q6 [facility]; Protocol Last Admin: 08/18/20 12:31 Dose: Not Given Documented by: Isosorbide Mononitrate (Isosorbide Mononitrate 30 Mg Tablet) 30 mg PO DAILY [facility] Last Admin: 08/18/20 10:55 Dose: 30 mg Documented by: Levothyroxine Sodium (Levothyroxine 25 Mcg Tablet) 25 mcg PO DAILY@0600 [facility] Last Admin: 08/18/20 06:11 Dose: 25 mcg Documented by: Nicotine (Nicotine 14 Mg Patch) 14 mg TD DAILY [facility] Last Admin: 08/18/20 09:00 Dose: 14 mg Documented by: Nitroglycerin (Nitroglycerin (Inpatient Use) 0.4 Mg Tab.Subl) 0.4 mg SUBLINGUAL Q5M PRN PRN Reason: CHEST PAIN Ondansetron HCl (Ondansetron 4 Mg/2 Ml Vial) 4 mg IV Q8H PRN PRN PRN Reason: NAUSEA/VOMITING Last Admin: 08/18/20 08:58 Dose: 4 mg Documented by: Oxycodone HCl (Oxycodone 5 Mg Tablet) 10 mg PO Q6H PRN PRN PRN Reason: Pain Score 6-10 Last Admin: 08/18/20 12:29 Dose: 10 mg Documented by: Pantoprazole Sodium (Pantoprazole Sodium 40 Mg Tablet) 40 mg PO DAILY [facility] Last Admin: 08/18/20 10:55 Dose: 40 mg Documented by: Promethazine HCl (Promethazine 25 Mg/Ml Syringe) 6.25 mg IV Q6H PRN PRN PRN Reason: NAUSEA/VOMITING Last Admin: 08/18/20 12:25 Dose: 6.25 mg Documented by: Rosuvastatin Calcium (Rosuvastatin 20 Mg Tablet) 40 mg PO DAILY@2200 [facility] Last Admin: 08/17/20 21:55 Dose: 40 mg Documented by: Sodium Chloride (0.9% Saline Lock 10 Ml Syringe) 10 - 40 ml IV UD PRN PRN Reason: SALINE FLUSH Tamsulosin HCl (Tamsulosin Hcl 0.4 Mg Capsule) 0.4 mg PO DAILY@1730 [facility] Last Admin: 08/17/20 16:49 Dose: 0.4 mg Documented by: Assessment/Plan 70-year-old male with acute on chronic kidney disease 1. Patient requires dialysis catheter for dialysis. I discussed tunneled right IJ temporary dialysis catheter placement. I discussed this procedure in detail with the patient including the risks of bleeding, infection, pneumothorax, DVT or nonfunctioning of catheter. Patient understands the risks and is willing to proceed. Patient is on Plavix and heparin I will hold his heparin and Plavix tomorrow morning. I did inform him of the increased risk of bleeding due to Plavix and the patient understands. The patient is having dialysis immediately after the procedure. Piter Rocha MD Pager: [facility] [address] [place] [address], [address] [place] [address] Office:
[2020-08-18] MEDS: 0.9% Saline Lock 10 ML Syringe IV (19:13)
[2020-08-18] MEDS: Ceftriaxone 1 GM/50 ML BAG IV (21:00)
[2020-08-18] MEDS: Rosuvastatin 20 MG Tablet 40 MG PO (21:41)
[2020-08-18 23:46] LABS: Bedside Glucose 125 mg/dL (70-110)
[2020-08-19] VITALS (23 sets, daily range): BP systolic 89–116; BP diastolic 45–72; PULSE 52–102; RESP 16–20; TEMP 36.4–37; O2SAT 93–98; BMI 30.2
[2020-08-19] MEDS: Acetaminophen 325 MG Tablet 650 MG PO (01:18)
[2020-08-19] MEDS: Ipratropium/Albuterol Sulfate 3 ML AMPUL.NEB INHALATION ×3 (02:57→20:02)
[2020-08-19] MEDS: oxyCODONE 5 MG Tablet 10 MG PO ×3 (03:18→16:05)
[2020-08-19 04:33] LABS: Absolute Neutrophil Count 6.6 X10^3/uL (2.0-7.7); Basophil# 0.01 X10^3/uL; Basophil% 0.1 % (0-1); Eosinophil# 0.01 X10^3/uL; Eosinophils% 0.1 % (0-5); Hematocrit 36.8 % (40-54); Hemoglobin 12.5 g/dL (13.0-16.5); Lymphocyte % 14.2 % (19-41); Mean Corpuscular Hgb 31.3 pg (27.0-32.0); Mean Corpuscular Volume 92.2 fL (80-94); Mean Platelet Vol. 10.3 fl (6.2-12.0); Monocyte% 7.1 % (0-10); NRBC Flagged by Analyzer 0 % (0-5); Neutrophil # 6.62 X10^3/uL (2.7-7.7); Neutrophil % 78.1 % (47-70); Platelet Count 142 K/mm3 (150-450); RBC Distribution Width SD 50.5 fl (35.1-43.9); Red Blood Count 3.99 M/mm3 (4.6-6.2); White Blood Count 8.5 K/mm3 (4.4-11.0)
[2020-08-19 04:34] LABS: Partial Thromboplast Time 32.7 Seconds (24.1-36.2)
[2020-08-19 04:44] LABS: Anion Gap 13 (5-15); BUN 91 mg/dL (7-18); BUN/Creat Ratio 13.7 RATIO (10-20); Calcium,Total 6.9 mg/dL (8.5-10.1); Chloride 103 mmol/L (98-107); Creatinine, Serum 6.66 mg/dL (0.70-1.30); EST Glomerular Filtration Rate 9 mL/min (>60); Est Glom Filt Rate - Afr Amer 11 mL/min (>60); Estimated Creatinine Clearance 10.47 ml/min; Glucose 74 mg/dL (74-106); Potassium 3.5 mmol/L (3.5-5.1); Sodium Level 137 mmol/L (136-145)
[2020-08-19 04:48] LABS: Thyroid Stim Hormone (TSH) 0.98 uIU/mL (0.358-3.74)
[2020-08-19] MEDS: Pantoprazole Sodium 40 MG Tablet PO (05:02)
[2020-08-19] MEDS: Levothyroxine 25 MCG TABLET PO (05:02)
--- NOTE | 2020-08-19 05:40 | RAD_ITS ---
HISTORY: sob EXAM: XR Chest 2 Views COMPARISON: August 16, 2020 FINDINGS: LINES/DEVICES: Left chest wall dual lead, left subclavian access cardiac defibrillator/pacer. Sternal wires. And mediastinal clips. LUNGS: There are chronic interstitial changes. No pneumothorax. Airspace disease within both lungs persists but is less than on the previous study MEDIASTINUM AND CARDIOVASCULAR STRUCTURES: Cardiac silhouette not enlarged. Central airways and mediastinal contour are unremarkable. Athersclerotic plaque within the aortic arch. BONES AND SOFT TISSUES: Thoracic spondylosis. RAD/Chest PA and Lateral IMPRESSION: Chronic interestitial changes. Decrease airspace disease consistent with improving pneumonia. at 0557 Reported and signed by: Manuel Silva MD Electronically Signed: Manuel Silva MD at 5:56 EST Tel , Service support ,
--- NOTE | 2020-08-19 05:55 | EKG12_ITS ---
Test Reason : AM EKG Blood Pressure : / mmHG Vent. Rate : 099 BPM Atrial Rate : 099 BPM P-R Int : 144 ms QRS Dur : 118 ms QT Int : 388 ms P-R-T Axes : 070 045 155 degrees QTc Int : 497 ms Sinus rhythm with frequent Premature ventricular complexes and Premature atrial complexes Incomplete left bundle branch block T wave abnormality, consider lateral ischemia Prolonged QT Abnormal ECG When compared with ECG of 16-AUG-2020 17:36, MANUAL COMPARISON REQUIRED, DATA IS UNCONFIRMED Confirmed by SHAVONNE LUNDBERG, LISA ([id number]), movie editor HARINI STONE ([id number]) on 08/22/2020 11:19:36 AM Referred By: ROSSY Confirmed By:LISA MARVIN MD
[2020-08-19 06:21] LABS: Bedside Glucose 75 mg/dL (70-110)
[2020-08-19] MEDS: Albuterol 2.5 MG/3 ML VIAL.NEB. INHALATION ×2 (06:44→16:30)
[2020-08-19 07:12] LABS: Hemoglobin A1c 5.9 % (3.8-5.6)
[2020-08-19] MEDS: Lidocaine 1% (20 ml mdv) 20 ML Vial (07:38)
[2020-08-19] MEDS: Heparin 10,000 UNITS/10 ML Vial 10000 UNITS (07:45)
--- NOTE | 2020-08-19 07:55 | RAD_ITS ---
STUDY: X-RAY CHEST REASON FOR EXAM: Male, 70 years old patient is status post catheter placement. TECHNIQUE: Single AP portable view of the chest. COMPARISON: 08/19/2020 time stamped 5:42 AM. FINDINGS: Left-sided intercardiac pacemaker is present. A tunneled catheter is present with the tip the catheter in the superior vena cava. Cardiac monitoring leads are present. The lungs are hyperexpanded. There is patchy left basilar airspace disease versus pulmonary nodule measuring approximately 2 cm in greatest dimension. There appears to be a small left-sided pleural effusion. There is borderline cardiomegaly. Normal mediastinum and serjio. Normal visualized pulmonary arteries. There is atherosclerotic calcification of the aortic arch with tortuosity. Normal visualized thoracic spine. Normal visualized ribs, clavicles, and shoulders. There is no demonstrated abnormality of the visualized soft tissue structures of the upper abdomen. RAD/CXR for Line Placement IMPRESSION: A focal opacity at the left lung base suggest possible nodule. Electronically Signed: Orly Turner MD at 9:13 EST , Service support ,
--- NOTE | 2020-08-19 07:59 | PCM.OPRPT ---
Problem List (1) Chronic renal failure, stage 3 (moderate) Status: Chronic Report of Operation Date of Procedure: 08/19/20 Pre-Operative Diagnosis: Acute kidney injury and need for dialysis access Post-Operative Diagnosis: Same Surgery/Procedure Performed:: Ultrasound and fluoroscopy guided right chest tunneled temporary dialysis catheter utilizing right IJ Description of Procedure: Patient was brought back to the operating room and the right chest and neck were prepped and draped in usual sterile fashion. Local anesthetic was injected into the neck as well as the chest and the area between. A small incision was made in the right neck as well as in the right chest. Using ultrasound guidance the right IJ was localized and a needle and guidewire were placed into the right IJ under fluoroscopy guidance. Next the needle was removed and serial dilators as well as a peel-away sheath was placed into the right IJ under fluoroscopy guidance. Next the catheter was tunneled from the chest site to the neck site and placed through the peel-away sheath and the peel-away sheath was removed. Placement was adequate on fluoroscopy. Both catheters were drawn back and flushed with saline and flushed and dez easily. They were then each instilled with 1.6 cc of heparin. They were both clamped and capped. Next the catheter was sutured to the skin using 3-0 nylon and the upper neck incision was closed using 3-0 Vicryl. Steri-Strips were applied to the upper incision. The area was cleaned and a bandage was applied. Patient was then taken to PACU in stable condition and tolerated the procedure well and will have a chest x-ray in PACU. Grafts/Implants Used: Palindrome curved temporary dialysis catheter
[2020-08-19] MEDS: Allopurinol 300 MG Tablet PO (08:59)
--- NOTE | 2020-08-19 09:15 | PCM.PROGNOTE ---
Subjective: Chief complaint: Follow-up after admission for JILLIAN on CKD/uremia, recurrent hypoglycemia and probable pneumonia. Patient seen and examined. No acute events overnight. Today, he feels almost the same, breathing has been stable on 2 L of oxygen. He underwent placement of right internal jugular tunneled dialysis catheter this morning. He is complaining of pain at the insertion site. He is afebrile, blood pressure has been borderline, pulse ox is 97% on 2 L. - Physical Exam Vitals/I&O's: Vital Signs Temp Pulse Resp BP Pulse Ox 97.6 F L 95 18 103/58 L 97 08/19/20 08:40 08/19/20 08:40 08/19/20 08:40 08/19/20 08:40 08/19/20 08:40 Oxygen Flow Rate (L/min) 2 Oxygen Delivery Method Nasal Cannula Weight: 204 lb 5.896 oz Body Mass Index (BMI) 30.2 Finger Stick Blood Glucose 195 Intake and Output for Last 24 Hours 08/17/20 08/18/20 08/19/20 23:59 23:59 23:59 Intake Total 2406.67 / 2646.67 3753.33 / 3753.33 50 / 50 Output Total 1450 / 1450 2100 / 2100 Balance 956.67 / 1196.67 1653.33 / 1653.33 50 / 50 General: Alert, Oriented x3, Cooperative, - - Shaking, mildly short of breath. HEENT: Atraumatic, PERRLA, EOMI, Normocephalic Oral: Moist Mucosa, No Gingival or Mucosal Lesions/ Ulcerations Neck: Supple, No JVD, Negative Carotid Bruits, Trachea Midline, Thyroid Normal Size and Texture Lungs: No wheeze, No rales, Diminished, Rhonchi, - - Decreased breath sounds bilateral, more on the right base, scattered rhonchi. Cardiovascular: Regular rate, Regular Rhythm, Normal S1, Normal S2, PMI Normal Abdomen: Bowel Sounds Present, Soft, Non Tender, Non-Distended, No Hepato-splenomegaly, Obese Extremities: No clubbing, No cyanosis, No edema Skin: No rashes, No breakdown Lymphatic: No Cervical, Supraclavicular, or Inguinal Adenopathy Neurological: Cranial nerves II-XII grossly intact, Neuro grossly intact Psych/Mental Status: Normal Affect, Appropriate, Alert and oriented to time, place, person, mood and affect Microbiology Past 72 Hours 08/16/20 17:49 Blood Culture (Wb) - Right Wrist Blood Culture - Preliminary No growth in 48 hours. 08/16/20 17:45 Blood Culture (Wb) - Left Wrist Blood Culture - Preliminary No growth in 48 hours. 08/17/20 02:00 Mucosa - Nasopharyngeal Respiratory Panel (PCR) - Final 08/17/20 03:15 Urine, Random Legionella Antigen - Final 08/17/20 03:15 Urine, Random Streptococcus pneumoniae Antigen (M - Final 08/16/20 17:15 Mucosa - Nose SARS-CoV-2 Antigen (Rapid) - Final Laboratory Results 08/18/20 08:26: POC Glucose 113 H 08/18/20 12:31: POC Glucose 109 08/18/20 16:45: POC Glucose 123 H 08/18/20 23:33: POC Glucose 125 H 08/19/20 04:02: WBC 8.5, RBC 3.99 L, Hgb 12.5 L, Hct 36.8 L, MCV 92.2, MCH 31.3, MCHC 34.0, RDW Std Deviation 50.5 H, RDW Coeff of Maggie 15.0 H, Plt Count 142 L, MPV 10.3, Immature Gran % (Auto) 0.400, Neut % (Auto) 78.1 H, Lymph % (Auto) 14.2 L, Tift % (Auto) 7.1, Eos % (Auto) 0.1, Baso % (Auto) 0.1, Absolute Neuts (auto) 6.6, Absolute Lymphs (auto) 1.20, Nucleated RBC % 0 08/19/20 04:02: Sodium 137, Potassium 3.5, Chloride 103, Carbon Dioxide 21.0, Anion Gap 13, BUN 91 H, Creatinine 6.66 H, Estim Creat Clear Calc 10.47, Est GFR (MDRD) Af Amer 11 L, Est GFR (MDRD) Non-Af 9 L, BUN/Creatinine Ratio 13.7, Glucose 74, Calcium 6.9 L 08/19/20 04:02: APTT 32.7 08/19/20 04:02: TSH 0.98 08/19/20 04:02: Hemoglobin A1c 5.9 H 08/19/20 06:17: POC Glucose 75 Current Medications Acetaminophen (Acetaminophen 325 Mg Tablet) 650 mg PO Q6H PRN PRN PRN Reason: Pain Score 1-10/Temp > 100.7 F Last Admin: 08/19/20 01:18 Dose: 650 mg Documented by: Albuterol Sulfate (Albuterol 2.5 Mg/3 Ml Vial.Neb.) 2.5 mg INHALATION Q2H PRN PRN PRN Reason: SOB/Wheezing Last Admin: 08/19/20 06:44 Dose: 2.5 mg Documented by: Albuterol/Ipratropium (Ipratropium/Albuterol Sulfate 3 Ml Ampul.Neb) 3 ml INHALATION Q6HWA.RT [facility] Last Admin: 08/19/20 02:57 Dose: 3 ml Documented by: Allopurinol (Allopurinol 300 Mg Tablet) 300 mg PO DAILYCM [facility] Last Admin: 08/19/20 08:59 Dose: 300 mg Documented by: Carvedilol (Carvedilol 6.25 Mg Tablet) 6.25 mg PO BID [facility] Last Admin: 08/19/20 08:56 Dose: Not Given Documented by: Clopidogrel Bisulfate (Clopidogrel Bisulfate 75 Mg Tablet) 75 mg PO DAILY [facility] Last Admin: 08/18/20 10:55 Dose: 75 mg Documented by: Heparin Sodium (Porcine) (Heparin Injection (Vial) 5,000 Unit/Ml Vial) 5,000 unit SC Q8 [facility] Last Admin: 08/18/20 21:42 Dose: 5,000 unit Documented by: Ceftriaxone Sodium (Rocephin) 1 gm in 50 mls @ 100 mls/hr IV Q24@2200 [facility] Last Infusion: 08/18/20 21:40 Dose: Infused Documented by: Azithromycin 500 mg/ Dextrose 255 mls @ 250 mls/hr IV Q24@2200 [facility] Last Infusion: 08/18/20 23:26 Dose: Infused Documented by: Sodium Chloride () 250 mls @ 15 mls/hr IV .[id number] PRN PRN Reason: Saline Flush Sodium Chloride () 250 mls @ 15 mls/hr IV .[id number] PRN PRN Reason: Additional IVPB Infusion Insulin Human Lispro (Insulin Lispro 100 Unit/Ml Insuln.Pen) 0 unit SC Q6 [facility]; Protocol Last Admin: 08/19/20 06:18 Dose: Not Given Documented by: Levothyroxine Sodium (Levothyroxine 25 Mcg Tablet) 25 mcg PO DAILY@0600 [facility] Last Admin: 08/19/20 05:02 Dose: 25 mcg Documented by: Midodrine (Midodrine Hcl 5 Mg Tablet) 10 mg PO TID [facility] Nicotine (Nicotine 14 Mg Patch) 14 mg TD DAILY [facility] Last Admin: 08/19/20 08:59 Dose: 14 mg Documented by: Nitroglycerin (Nitroglycerin (Inpatient Use) 0.4 Mg Tab.Subl) 0.4 mg SUBLINGUAL Q5M PRN PRN Reason: CHEST PAIN Ondansetron HCl (Ondansetron 4 Mg/2 Ml Vial) 4 mg IV Q8H PRN PRN PRN Reason: NAUSEA/VOMITING Last Admin: 08/18/20 08:58 Dose: 4 mg Documented by: Oxycodone HCl (Oxycodone 5 Mg Tablet) 10 mg PO Q6H PRN PRN PRN Reason: Pain Score 6-10 Last Admin: 08/19/20 09:05 Dose: 10 mg Documented by: Pantoprazole Sodium (Pantoprazole Sodium 40 Mg Tablet) 40 mg PO DAILY [facility] Last Admin: 08/19/20 05:02 Dose: 40 mg Documented by: Promethazine HCl (Promethazine 25 Mg/Ml Syringe) 6.25 mg IV Q6H PRN PRN PRN Reason: NAUSEA/VOMITING Last Admin: 08/18/20 19:13 Dose: 6.25 mg Documented by: Rosuvastatin Calcium (Rosuvastatin 20 Mg Tablet) 40 mg PO DAILY@2200 [facility] Last Admin: 08/18/20 21:41 Dose: 40 mg Documented by: Sodium Chloride (0.9% Saline Lock 10 Ml Syringe) 10 - 40 ml IV UD PRN PRN Reason: SALINE FLUSH Last Admin: 08/18/20 19:13 Dose: 20 ml Documented by: Tamsulosin HCl (Tamsulosin Hcl 0.4 Mg Capsule) 0.4 mg PO DAILY@1730 [facility] Last Admin: 08/18/20 17:19 Dose: 0.4 mg Documented by: Medical Necessity - Tobacco Use Smoking Status: Current every day smoker Tobacco Use: Cigarettes Assessment/Plan This is a 70 years old male patient presented to the emergency room because of worsening shortness of breath and dry cough as well as dizziness, found to have JILLIAN on CKD/uremia, found to have recurrent hypoglycemia and probable pneumonia. #3 acute kidney injury on top of stage III chronic kidney disease/uremia: Patient has been having tremors and shakiness, BUN and creatinine has been trending up. Nephrology consulted and recommended to start hemodialysis. Today, patient underwent basement of right internal jugular tunneled dialysis catheter. Today's BUN is 91, trending up. Today's creatinine is 6.66, normal improved. Patient's blood pressure still borderline to low. IV fluids discontinued. Plan: Hemodialysis today, start midodrine 10 mg p.o. 3 times daily to raise blood pressure, repeat CBC and BMP tomorrow morning. Patient had very low ejection fraction 15% which makes hemodialysis challenging because of low blood pressure. #2 Mild acute on chronic systolic CHF: IV Lasix discontinued because of worsening kidney function. Currently, patient is on Coreg and Imdur. Repeat chest x-ray reviewed, showed resolution of the right lower lobe infiltrate versus fluid overload, improved areation of the lung bui, revealed questionable right lower lobe nodule. Respiratory status remained stable, remains on 2 L of oxygen. He had 2D echocardiogram on June, that showed ejection fraction 15%, other findings reviewed. Troponin was borderline elevated likely because of demand ischemia. Plan: Discontinue Imdur, continue Coreg, start midodrine as above. #3 probable community-acquired pneumonia: Remained on IV Rocephin Zithromax. He has been afebrile, WBC is back to normal. He remains on 2 L of oxygen. Pneumococcal and Legionella antigen were negative. COVID-19 antigen came back negative. COVID-19 PCR also negative. Respiratory panel for viruses were negative. Repeat chest x-ray reviewed. Plan to continue same treatment. #4 recurrent hypoglycemia: This likely because of sulfonylurea, patient has been taking glimepiride in the setting of worsening kidney function. Glimepiride held. Blood sugar stabilized. Continue Accu-Cheks and sliding scale. #5 Chronic systolic CHF/ischemic cardiomyopathy/status post ICD: With ejection fraction 15%. Currently, patient is off diuretics, on Coreg. Plan to hold Imdur as above. #6 hypertension: Blood pressure remained borderline and sometimes low. Plan to discontinue Imdur, continue Coreg, start monitoring as above. #7 COPD: Patient use oxygen at night at 2 L. Repeat chest x-ray reviewed. Continue DuoNeb and albuterol. #8 type 2 diabetes mellitus: With frequent hypoglycemia due to taking sulfonylurea in the setting of JILLIAN on CKD. Blood sugar stabilized. Plan as above. #9 CAD status post CABG and stents: Continue Coreg, discontinue Imdur as above. #10 hyperlipidemia: Continue statins. #11 GERD: Continue Protonix. #12 DVT prophylaxis: Subcu heparin. This note was generated with [employer] dictation software. It may contain incorrect words, spelling, and punctuation that were not noted in checking the note before signing. Inpatient E&M: [id number] [facility] L3
[2020-08-19] MEDS: Midodrine HCl 5 MG Tablet 10 MG PO ×2 (11:52→21:45)
[2020-08-19 11:56] LABS: Bedside Glucose 115 mg/dL (70-110)
--- NOTE | 2020-08-19 13:46 | DIALYSIS ---
First hemodialysis tx completed x 2 hours without complications. Pt tolerated tx well with stable vitals throughout tx. Fluid removed 600ml. Hepatitis labs were not drawn during tx as lab did not arrive during tx. Lab to obtain. Written report sheet completed and given to LEONIE Skelton post tx. Next dialysis tomorrow 08/20/20
--- NOTE | 2020-08-19 16:22 | PN.RENAL_ITS ---
Subjective: Patient had HD session earlier today. less shaky after HD complaining of neck pain at the site of tunneled cath No SOB. No N/V - Physical Exam Vitals/I&O's: Vital Signs Temp Pulse Resp BP Pulse Ox 97.9 F 52 L 17 116/72 93 08/19/20 14:30 08/19/20 14:30 08/19/20 14:30 08/19/20 14:30 08/19/20 14:30 Oxygen Flow Rate (L/min) 2 Oxygen Delivery Method Nasal Cannula Weight: 92.7 kg Body Mass Index (BMI) 30.2 Finger Stick Blood Glucose 195 Intake and Output for Last 24 Hours 08/17/20 08/18/20 08/19/20 23:59 23:59 23:59 Intake Total 2406.67 / 2646.67 3753.33 / 3753.33 410 / 410 Output Total 1450 / 1450 2100 / 2100 Balance 956.67 / 1196.67 1653.33 / 1653.33 410 / 410 General: Alert, Oriented x3 HEENT: Atraumatic Oral: Moist Mucosa Neck: Supple, No JVD Lungs: Clear to auscultation, Normal air movement, No rhonchi Cardiovascular: Regular rate, Regular Rhythm, Normal S1, Normal S2 Abdomen: Bowel Sounds Present, Soft, Non Tender Extremities: No clubbing, Edema - +1 edema of LE Skin: No rashes Musculoskeletal: No Tenderness to Palpation of Joints or Extremities Lymphatic: No Cervical, Supraclavicular, or Inguinal Adenopathy Neurological: Cranial nerves II-XII grossly intact, Neuro grossly intact Psych/Mental Status: Appropriate Microbiology Past 72 Hours 08/16/20 17:49 Blood Culture (Wb) - Right Wrist Blood Culture - Preliminary No growth in 48 hours. 08/16/20 17:45 Blood Culture (Wb) - Left Wrist Blood Culture - Preliminary No growth in 48 hours. 08/17/20 02:00 Mucosa - Nasopharyngeal Respiratory Panel (PCR) - Final 08/17/20 03:15 Urine, Random Legionella Antigen - Final 08/17/20 03:15 Urine, Random Streptococcus pneumoniae Antigen (M - Final 08/16/20 17:15 Mucosa - Nose SARS-CoV-2 Antigen (Rapid) - Final Laboratory Results 08/16/20 17:13: Hep Bs Antigen Pending, Hep Bs Antibody Pending 08/18/20 16:45: POC Glucose 123 H 08/18/20 23:33: POC Glucose 125 H 08/19/20 04:02: WBC 8.5, RBC 3.99 L, Hgb 12.5 L, Hct 36.8 L, MCV 92.2, MCH 31.3, MCHC 34.0, RDW Std Deviation 50.5 H, RDW Coeff of Maggie 15.0 H, Plt Count 142 L, MPV 10.3, Immature Gran % (Auto) 0.400, Neut % (Auto) 78.1 H, Lymph % (Auto) 14.2 L, Pettis % (Auto) 7.1, Eos % (Auto) 0.1, Baso % (Auto) 0.1, Absolute Neuts (auto) 6.6, Absolute Lymphs (auto) 1.20, Nucleated RBC % 0 08/19/20 04:02: Sodium 137, Potassium 3.5, Chloride 103, Carbon Dioxide 21.0, Anion Gap 13, BUN 91 H, Creatinine 6.66 H, Estim Creat Clear Calc 10.47, Est GFR (MDRD) Af Amer 11 L, Est GFR (MDRD) Non-Af 9 L, BUN/Creatinine Ratio 13.7, Glucose 74, Calcium 6.9 L 08/19/20 04:02: APTT 32.7 08/19/20 04:02: TSH 0.98 08/19/20 04:02: Hemoglobin A1c 5.9 H 08/19/20 06:17: POC Glucose 75 08/19/20 11:48: POC Glucose 115 H Current Medications Acetaminophen (Acetaminophen 325 Mg Tablet) 650 mg PO Q6H PRN PRN PRN Reason: Pain Score 1-10/Temp > 100.7 F Last Admin: 08/19/20 01:18 Dose: 650 mg Documented by: Albuterol Sulfate (Albuterol 2.5 Mg/3 Ml Vial.Neb.) 2.5 mg INHALATION Q2H PRN PRN PRN Reason: SOB/Wheezing Last Admin: 08/19/20 06:44 Dose: 2.5 mg Documented by: Albuterol/Ipratropium (Ipratropium/Albuterol Sulfate 3 Ml Ampul.Neb) 3 ml INHALATION Q6HWA.RT [facility] Last Admin: 08/19/20 13:40 Dose: 3 ml Documented by: Allopurinol (Allopurinol 300 Mg Tablet) 300 mg PO DAILYCM [facility] Last Admin: 08/19/20 08:59 Dose: 300 mg Documented by: Carvedilol (Carvedilol 6.25 Mg Tablet) 6.25 mg PO BID [facility] Last Admin: 08/19/20 08:56 Dose: Not Given Documented by: Clopidogrel Bisulfate (Clopidogrel Bisulfate 75 Mg Tablet) 75 mg PO DAILY [facility] Last Admin: 08/18/20 10:55 Dose: 75 mg Documented by: Heparin Sodium (Porcine) (Heparin Injection (Vial) 5,000 Unit/Ml Vial) 5,000 unit SC Q8 [facility] Last Admin: 08/18/20 21:42 Dose: 5,000 unit Documented by: Heparin Sodium (Porcine) (Heparin 10,000 Units/10 Ml Vial) 0 - 10,000 units IV PRN PRN PRN Reason: DIALYSIS CATH Ceftriaxone Sodium (Rocephin) 1 gm in 50 mls @ 100 mls/hr IV Q24@2200 [facility] Last Infusion: 08/18/20 21:40 Dose: Infused Documented by: Azithromycin 500 mg/ Dextrose 255 mls @ 250 mls/hr IV Q24@2200 [facility] Last Infusion: 08/18/20 23:26 Dose: Infused Documented by: Sodium Chloride () 250 mls @ 15 mls/hr IV .[id number] PRN PRN Reason: Saline Flush Sodium Chloride () 250 mls @ 15 mls/hr IV .[id number] PRN PRN Reason: Additional IVPB Infusion Insulin Human Lispro (Insulin Lispro 100 Unit/Ml Insuln.Pen) 0 unit SC Q6 [facility]; Protocol Last Admin: 08/19/20 11:55 Dose: Not Given Documented by: Levothyroxine Sodium (Levothyroxine 25 Mcg Tablet) 25 mcg PO DAILY@0600 [facility] Last Admin: 08/19/20 05:02 Dose: 25 mcg Documented by: Midodrine (Midodrine Hcl 5 Mg Tablet) 10 mg PO TID [facility] Last Admin: 08/19/20 11:52 Dose: 10 mg Documented by: Nicotine (Nicotine 14 Mg Patch) 14 mg TD DAILY [facility] Last Admin: 08/19/20 08:59 Dose: 14 mg Documented by: Nitroglycerin (Nitroglycerin (Inpatient Use) 0.4 Mg Tab.Subl) 0.4 mg SUBLINGUAL Q5M PRN PRN Reason: CHEST PAIN Ondansetron HCl (Ondansetron 4 Mg/2 Ml Vial) 4 mg IV Q8H PRN PRN PRN Reason: NAUSEA/VOMITING Last Admin: 08/18/20 08:58 Dose: 4 mg Documented by: Oxycodone HCl (Oxycodone 5 Mg Tablet) 10 mg PO Q6H PRN PRN PRN Reason: Pain Score 6-10 Last Admin: 08/19/20 16:05 Dose: 10 mg Documented by: Pantoprazole Sodium (Pantoprazole Sodium 40 Mg Tablet) 40 mg PO DAILY [facility] Last Admin: 08/19/20 05:02 Dose: 40 mg Documented by: Promethazine HCl (Promethazine 25 Mg/Ml Syringe) 6.25 mg IV Q6H PRN PRN PRN Reason: NAUSEA/VOMITING Last Admin: 08/18/20 19:13 Dose: 6.25 mg Documented by: Rosuvastatin Calcium (Rosuvastatin 20 Mg Tablet) 40 mg PO DAILY@2200 [facility] Last Admin: 08/18/20 21:41 Dose: 40 mg Documented by: Sodium Chloride (0.9% Saline Lock 10 Ml Syringe) 10 - 40 ml IV UD PRN PRN Reason: SALINE FLUSH Last Admin: 08/18/20 19:13 Dose: 20 ml Documented by: Tamsulosin HCl (Tamsulosin Hcl 0.4 Mg Capsule) 0.4 mg PO DAILY@1730 [facility] Last Admin: 08/18/20 17:19 Dose: 0.4 mg Documented by: Medical Necessity - Tobacco Use Smoking Status: Current every day smoker Tobacco Use: Cigarettes Assessment/Plan 1- JILLIAN on CKD stage 3. baseline Cr 1.5-1.6 mg/dl CKD is likely from CRS and chronic use of high dose of NSAIDs JILLIAN is likely ATN from low BP, and poor intake. HD started 08/19 due to uremic symptoms. tolerated HD session well earlier today Next HD session tomorrow HD access R IJ TC Will continue to monitor for kidney function recovery 2- hypotensive likely from low EF Better. monitor BP with UF Might need to start midodrine if BP drops with HD 3- CHF low EF. seems compensating. UF as tolerated 4-Pneumonia. On Ceftriaxone and Azithromycin ads per the primary service Renal team will continue to follow. Please call if any question or concern at [phone] Louis Mariscal MD
[2020-08-19] MEDS: Tamsulosin HCl 0.4 MG Capsule PO (18:38)
[2020-08-19 18:46] LABS: Bedside Glucose 132 mg/dL (70-110)
[2020-08-19] MEDS: Ceftriaxone 1 GM/50 ML BAG IV (21:41)
[2020-08-19] MEDS: Rosuvastatin 20 MG Tablet 40 MG PO (21:46)
[2020-08-19] MEDS: Heparin Injection (Vial) 5,000 UNIT/ML VIAL 5000 UNIT SC (21:46)
[2020-08-19] MEDS: Ondansetron 4 MG/2 ML Vial IV (22:50)
[2020-08-19] MEDS: proMETHazine 25 MG/ML Syringe 6.25 MG IV (23:54)
[2020-08-19] MEDS: 0.9% Saline Lock 10 ML Syringe IV (23:55)
[2020-08-20] VITALS (17 sets, daily range): BP systolic 80–119; BP diastolic 44–66; PULSE 78–97; RESP 14–22; TEMP 36.1–36.9; O2SAT 91–98
[2020-08-20 00:21] LABS: Bedside Glucose 102 mg/dL (70-110)
[2020-08-20] MEDS: Albuterol 2.5 MG/3 ML VIAL.NEB. INHALATION ×2 (04:20→16:58)
[2020-08-20] MEDS: oxyCODONE 5 MG Tablet 10 MG PO ×4 (04:37→23:05)
[2020-08-20 04:44] LABS: Absolute Lymphocyte Count 1.18 X10^3/uL (0.83-4.51); Absolute Neutrophil Count 4.3 X10^3/uL (2.0-7.7); Basophil# 0.02 X10^3/uL; Basophil% 0.3 % (0-1); Eosinophil# 0.03 X10^3/uL; Eosinophils% 0.5 % (0-5); Hematocrit 38.1 % (40-54); Hemoglobin 12.7 g/dL (13.0-16.5); Lymphocyte # 1.18 X10^3/ul (4.0); Lymphocyte % 19.2 % (19-41); Mean Corp Hgb Conc 33.3 g/dL (32-36); Mean Corpuscular Hgb 30.7 pg (27.0-32.0); Mean Platelet Vol. 10.3 fl (6.2-12.0); Monocyte# 0.61 X10^3/uL; Monocyte% 9.9 % (0-10); NRBC Flagged by Analyzer 0 % (0-5); Neutrophil % 69.8 % (47-70); Platelet Count 135 K/mm3 (150-450); RBC Distribution Width CV 14.9 % (11.6-14.6); Red Blood Count 4.14 M/mm3 (4.6-6.2); White Blood Count 6.2 K/mm3 (4.4-11.0)
[2020-08-20 04:58] LABS: Prothrombin Time (Protime)PT. 12.6 SECONDS (11.7-14.9)
[2020-08-20 05:01] LABS: Anion Gap 11 (5-15); BUN 63 mg/dL (7-18); BUN/Creat Ratio 14.2 RATIO (10-20); Calcium,Total 7.6 mg/dL (8.5-10.1); Chloride 101 mmol/L (98-107); Creatinine, Serum 4.44 mg/dL (0.70-1.30); EST Glomerular Filtration Rate 14 mL/min (>60); Est Glom Filt Rate - Afr Amer 17 mL/min (>60); Glucose 89 mg/dL (74-106); Potassium 3.5 mmol/L (3.5-5.1); Sodium Level 137 mmol/L (136-145)
[2020-08-20] MEDS: Heparin Injection (Vial) 5,000 UNIT/ML VIAL 5000 UNIT SC ×3 (05:38→23:07)
[2020-08-20] MEDS: Midodrine HCl 5 MG Tablet 10 MG PO ×3 (05:38→20:04)
[2020-08-20] MEDS: Levothyroxine 25 MCG TABLET PO (05:38)
[2020-08-20 05:50] LABS: Bedside Glucose 104 mg/dL (70-110)
[2020-08-20] MEDS: Ipratropium/Albuterol Sulfate 3 ML AMPUL.NEB INHALATION ×3 (06:49→19:28)
[2020-08-20] MEDS: Pantoprazole Sodium 40 MG Tablet PO (08:02)
[2020-08-20] MEDS: Clopidogrel Bisulfate 75 MG Tablet PO (08:02)
[2020-08-20] MEDS: Allopurinol 300 MG Tablet PO (08:02)
[2020-08-20 08:34] LABS: Hepatitis B Surface Antibody Non-Reactive; Hepatitis B Surface Antigen Non-Reactive (Nonreactive)
--- NOTE | 2020-08-20 10:38 | CASEMGMT ---
Addendum entered by Sera Alaniz 08/20/20 14:33: Per [place] at [facility], pt has a tentative chair time of MWF at 0630 with 0610 arrival time. Still awaiting financial approval. Doug HADLEY CM Addendum entered by Sera Alaniz 08/20/20 13:01: Dr. Faith here to see pt and states pt will need set up with OP HD and that pt is acute at this time. Referral made via [facility] portal and faxed to [facility] and [facility] admissions at this time. Pt states no preference on days but would like morning time, if possible. Call to [place] at [facility] to notify of referral and preferences, voices understanding. CM to follow. Doug HADLEY CM Original Note: Pt was started on HD over the weekend. This RN CM to room to discuss OP HD set up at this time. Pt provided verbal list of in-network local providers at this time and pt states he would like [facility] at this time. This LEONIE JEAN-BAPTISTE has not seen bicycle racer yet today to clarify that pt will definitely need OP HD set up yet at this time. CM to follow. Referral packet printed and ready to go. Doug HADLEY CM
--- NOTE | 2020-08-20 10:51 | CASEMGMT ---
DENYS received a call from Nafisa with [employer]. She is patient's mattress spring encaser. He gets home delivered meals and he has a medical alert button. She said patient's is anxious about him coming home. She is afraid she will have to take care of him. She asked about a bedside commode as his bathroom and bedroom are on the second level and he does not do well with steps. DENYS explained to Nafisa there is no discharge plan for patient yet. He was just started on dialysis and it is unknown if he will need to go home on dialysis. DENYS told her we can keep her updated as we get more information. Her name is Nafisa and her direct number is [phone]. Alyssa JOHNSON MSW
--- NOTE | 2020-08-20 11:03 | PN_ITS ---
<Taras Burden - Last Filed: 08/20/20 11:03> Reason for Visit: Hypoglycemia, JILLIAN Subjective: Pt tolerated dialysis well yesterday. He states that he has had significant upper extremity tremor and that this improved after dialysis. He states today he is still somewhat tremulous and anxious that he is not ready to return home. He is lying in bed undergoing a second round of dialysis in no acute distress. No sob, and no LE edema. Vitals/I&O's: Vital Signs Temp Pulse Resp BP Pulse Ox 97.8 F 91 14 111/66 91 08/20/20 09:22 08/20/20 09:22 08/20/20 09:22 08/20/20 09:22 08/20/20 09:22 Oxygen Flow Rate (L/min) 2.5 Oxygen Delivery Method Room Air Weight: 205 lb 7.533 oz Body Mass Index (BMI) 30.2 Finger Stick Blood Glucose 195 Intake and Output for Last 24 Hours 08/18/20 08/19/20 08/20/20 23:59 23:59 23:59 Intake Total 3753.33 / 3753.33 1205 / 1205 250 / 250 Output Total 2100 / 2100 1100 / 1100 Balance 1653.33 / 1653.33 105 / 105 250 / 250 General: Alert, Oriented x3, Cooperative HEENT: Atraumatic, PERRLA, EOMI, Normocephalic Neck: Supple, No JVD, Negative Carotid Bruits Lungs: Clear to auscultation, Normal air movement Cardiovascular: Regular rate, No murmurs Abdomen: Bowel Sounds Present, Soft, Non Tender Extremities: No edema, Capillary Refill Less than 3 Seconds Skin: No rashes, No breakdown Musculoskeletal: No Tenderness to Palpation of Joints or Extremities Neurological: Cranial nerves II-XII grossly intact Psych/Mental Status: Normal Affect, Appropriate, Alert and oriented to time, place, person, mood and affect Microbiology Past 72 Hours 08/16/20 17:49 Blood Culture (Wb) - Right Wrist Blood Culture - Preliminary No growth in 48 hours. 08/16/20 17:45 Blood Culture (Wb) - Left Wrist Blood Culture - Preliminary No growth in 48 hours. 08/17/20 02:00 Mucosa - Nasopharyngeal Respiratory Panel (PCR) - Final Laboratory Results 08/16/20 17:13: Hep Bs Antigen Non-Reactive, Hep Bs Antibody Non-Reactive 08/19/20 11:48: POC Glucose 115 H 08/19/20 18:29: POC Glucose 132 H 08/20/20 00:08: POC Glucose 102 08/20/20 04:25: WBC 6.2, RBC 4.14 L, Hgb 12.7 L, Hct 38.1 L, MCV 92.0, MCH 30.7, MCHC 33.3, RDW Std Deviation 50.0 H, RDW Coeff of Maggie 14.9 H, Plt Count 135 L, MPV 10.3, Immature Gran % (Auto) 0.300, Neut % (Auto) 69.8, Lymph % (Auto) 19.2, [place] % (Auto) 9.9, Eos % (Auto) 0.5, Baso % (Auto) 0.3, Absolute Neuts (auto) 4.3, Absolute Lymphs (auto) 1.18, Nucleated RBC % 0 08/20/20 04:25: PT 12.6, INR 1.0 08/20/20 04:25: Sodium 137, Potassium 3.5, Chloride 101, Carbon Dioxide 25.0, Anion Gap 11, BUN 63 H, Creatinine 4.44 H, Estim Creat Clear Calc 15.70, Est GFR (MDRD) Af Amer 17 L, Est GFR (MDRD) Non-Af 14 L, BUN/Creatinine Ratio 14.2, Glucose 89, Calcium 7.6 L 08/20/20 04:25: Hep B Core IgM Ab Pending 08/20/20 05:45: POC Glucose 104 Current Medications Acetaminophen (Acetaminophen 325 Mg Tablet) 650 mg PO Q6H PRN PRN PRN Reason: Pain Score 1-10/Temp > 100.7 F Last Admin: 08/19/20 01:18 Dose: 650 mg Documented by: Albuterol Sulfate (Albuterol 2.5 Mg/3 Ml Vial.Neb.) 2.5 mg INHALATION Q2H PRN PRN PRN Reason: SOB/Wheezing Last Admin: 08/20/20 04:20 Dose: 2.5 mg Documented by: Albuterol/Ipratropium (Ipratropium/Albuterol Sulfate 3 Ml Ampul.Neb) 3 ml INHALATION Q6HWA.RT [facility] Last Admin: 08/20/20 06:49 Dose: 3 ml Documented by: Allopurinol (Allopurinol 300 Mg Tablet) 300 mg PO DAILYCM [facility] Last Admin: 08/20/20 08:02 Dose: 300 mg Documented by: Carvedilol (Carvedilol 6.25 Mg Tablet) 6.25 mg PO BID [facility] Last Admin: 08/19/20 21:39 Dose: Not Given Documented by: Clopidogrel Bisulfate (Clopidogrel Bisulfate 75 Mg Tablet) 75 mg PO DAILY [facility] Last Admin: 08/20/20 08:02 Dose: 75 mg Documented by: Heparin Sodium (Porcine) (Heparin Injection (Vial) 5,000 Unit/Ml Vial) 5,000 unit SC Q8 [facility] Last Admin: 08/20/20 05:38 Dose: 5,000 unit Documented by: Heparin Sodium (Porcine) (Heparin 10,000 Units/10 Ml Vial) 0 - 10,000 units IV PRN PRN PRN Reason: DIALYSIS CATH Ceftriaxone Sodium (Rocephin) 1 gm in 50 mls @ 100 mls/hr IV Q24@2200 [facility] Last Infusion: 08/19/20 22:15 Dose: Infused Documented by: Azithromycin 500 mg/ Dextrose 255 mls @ 250 mls/hr IV Q24@2200 [facility] Last Infusion: 08/19/20 23:53 Dose: Infused Documented by: Sodium Chloride () 250 mls @ 15 mls/hr IV .[id number] PRN PRN Reason: Saline Flush Sodium Chloride () 250 mls @ 15 mls/hr IV .[id number] PRN PRN Reason: Additional IVPB Infusion Insulin Human Lispro (Insulin Lispro 100 Unit/Ml Insuln.Pen) 0 unit SC Q6 [facility]; Protocol Last Admin: 08/20/20 05:46 Dose: Not Given Documented by: Levothyroxine Sodium (Levothyroxine 25 Mcg Tablet) 25 mcg PO DAILY@0600 [facility] Last Admin: 08/20/20 05:38 Dose: 25 mcg Documented by: Midodrine (Midodrine Hcl 5 Mg Tablet) 10 mg PO TID [facility] Last Admin: 08/20/20 05:38 Dose: 10 mg Documented by: Nicotine (Nicotine 14 Mg Patch) 14 mg TD DAILY [facility] Last Admin: 08/20/20 08:03 Dose: 14 mg Documented by: Nitroglycerin (Nitroglycerin (Inpatient Use) 0.4 Mg Tab.Subl) 0.4 mg SUBLINGUAL Q5M PRN PRN Reason: CHEST PAIN Ondansetron HCl (Ondansetron 4 Mg/2 Ml Vial) 4 mg IV Q8H PRN PRN PRN Reason: NAUSEA/VOMITING Last Admin: 08/19/20 22:50 Dose: 4 mg Documented by: Oxycodone HCl (Oxycodone 5 Mg Tablet) 10 mg PO Q6H PRN PRN PRN Reason: Pain Score 6-10 Last Admin: 08/20/20 04:37 Dose: 10 mg Documented by: Pantoprazole Sodium (Pantoprazole Sodium 40 Mg Tablet) 40 mg PO DAILY [facility] Last Admin: 08/20/20 08:02 Dose: 40 mg Documented by: Promethazine HCl (Promethazine 25 Mg/Ml Syringe) 6.25 mg IV Q6H PRN PRN PRN Reason: NAUSEA/VOMITING Last Admin: 08/19/20 23:54 Dose: 6.25 mg Documented by: Rosuvastatin Calcium (Rosuvastatin 20 Mg Tablet) 40 mg PO DAILY@2200 [facility] Last Admin: 08/19/20 21:46 Dose: 40 mg Documented by: Sodium Chloride (0.9% Saline Lock 10 Ml Syringe) 10 - 40 ml IV UD PRN PRN Reason: SALINE FLUSH Last Admin: 08/19/20 23:55 Dose: 20 ml Documented by: Tamsulosin HCl (Tamsulosin Hcl 0.4 Mg Capsule) 0.4 mg PO DAILY@1730 [facility] Last Admin: 08/19/20 18:38 Dose: 0.4 mg Documented by: STROKE Vital Signs/Narrative: Vital Signs Temp Pulse Resp BP Pulse Ox 08/20/20 09:22 97.8 F 91 14 111/66 91 Medical Necessity - Tobacco Use Smoking Status: Current every day smoker Tobacco Use: Cigarettes Assessment/Plan 1. JILLIAN on CKDIII - dialysis yeterday and today. He has not previously had dialysis. [facility] following. 2. Acute on chronic systolic CHF, ischemic CM - pt has AICD. Acute CHF appears resolved at this time. Care will primarily consist of dialysis at this point. TSH normal. 3. CAP - Rocephin/azithro (completed azithro). Doing well. walking pulse of pr ior to DC. Urine antigens neg. Resp panel neg. Blood cx neg. Covid neg. No fever/WBC elevation. 4. DMt2 with recurrent Hypoglycemia - pt should not resume glimeperide at dc. Blood sugar is controlled. He has not required sliding scale insulin yet. Plan to continue diabetic diet. A1C 5.9. 5. COPD - no exacerbation - prn aerosols 6. CAD - prior CABG/stents - imdur has been discontinued. 7. GERD - on PPI DVT ppx: heparin DC planning: CM working on arranging outpatient dialysis This patient was seen by Taras Burden PA-C under the supervision of Dr. Barbosa. <Miguel Barbosa - Last Filed: 08/20/20 12:22> Vitals/I&O's: Vital Signs Temp Pulse Resp BP Pulse Ox 97.8 F 91 14 111/66 91 08/20/20 09:22 08/20/20 09:22 08/20/20 09:22 08/20/20 09:22 08/20/20 09:22 Oxygen Flow Rate (L/min) 2.5 Oxygen Delivery Method Room Air Weight: 93.2 kg Body Mass Index (BMI) 30.2 Finger Stick Blood Glucose 195 Intake and Output for Last 24 Hours 08/18/20 08/19/20 08/20/20 23:59 23:59 23:59 Intake Total 3753.33 / 3753.33 1205 / 1205 250 / 250 Output Total 2100 / 2100 1100 / 1100 Balance 1653.33 / 1653.33 105 / 105 250 / 250 Microbiology Past 72 Hours 08/16/20 17:49 Blood Culture (Wb) - Right Wrist Blood Culture - Preliminary No growth in 48 hours. 08/16/20 17:45 Blood Culture (Wb) - Left Wrist Blood Culture - Preliminary No growth in 48 hours. Laboratory Results 08/16/20 17:13: Hep Bs Antigen Non-Reactive, Hep Bs Antibody Non-Reactive 08/19/20 18:29: POC Glucose 132 H 08/20/20 00:08: POC Glucose 102 08/20/20 04:25: WBC 6.2, RBC 4.14 L, Hgb 12.7 L, Hct 38.1 L, MCV 92.0, MCH 30.7, MCHC 33.3, RDW Std Deviation 50.0 H, RDW Coeff of Maggie 14.9 H, Plt Count 135 L, MPV 10.3, Immature Gran % (Auto) 0.300, Neut % (Auto) 69.8, Lymph % (Auto) 19.2, [place] % (Auto) 9.9, Eos % (Auto) 0.5, Baso % (Auto) 0.3, Absolute Neuts (auto) 4.3, Absolute Lymphs (auto) 1.18, Nucleated RBC % 0 08/20/20 04:25: PT 12.6, INR 1.0 08/20/20 04:25: Sodium 137, Potassium 3.5, Chloride 101, Carbon Dioxide 25.0, Anion Gap 11, BUN 63 H, Creatinine 4.44 H, Estim Creat Clear Calc 15.70, Est GFR (MDRD) Af Amer 17 L, Est GFR (MDRD) Non-Af 14 L, BUN/Creatinine Ratio 14.2, Glucose 89, Calcium 7.6 L 08/20/20 04:25: Hep B Core IgM Ab Pending 08/20/20 05:45: POC Glucose 104 Current Medications Acetaminophen (Acetaminophen 325 Mg Tablet) 650 mg PO Q6H PRN PRN PRN Reason: Pain Score 1-10/Temp > 100.7 F Last Admin: 08/20/20 11:12 Dose: 650 mg Documented by: Albuterol Sulfate (Albuterol 2.5 Mg/3 Ml Vial.Neb.) 2.5 mg INHALATION Q2H PRN PRN PRN Reason: SOB/Wheezing Last Admin: 08/20/20 04:20 Dose: 2.5 mg Documented by: Albuterol/Ipratropium (Ipratropium/Albuterol Sulfate 3 Ml Ampul.Neb) 3 ml INHALATION Q6HWA.RT [facility] Last Admin: 08/20/20 06:49 Dose: 3 ml Documented by: [facility] ([facility] 300 [facility] Last Admin: 08/20/20 08:02 Dose: 300 mg Documented by: Carvedilol (Carvedilol 6.25 Mg Tablet) 6.25 mg PO BID [facility] Last Admin: 08/19/20 21:39 Dose: Not Given Documented by: Clopidogrel Bisulfate (Clopidogrel Bisulfate 75 Mg Tablet) 75 mg PO DAILY [facility] Last Admin: 08/20/20 08:02 Dose: 75 mg Documented by: Heparin Sodium (Porcine) (Heparin Injection (Vial) 5,000 Unit/Ml Vial) 5,000 unit SC Q8 [facility] Last Admin: 08/20/20 05:38 Dose: 5,000 unit Documented by: Heparin Sodium (Porcine) (Heparin 10,000 Units/10 Ml Vial) 0 - 10,000 units IV PRN PRN PRN Reason: DIALYSIS CATH Ceftriaxone Sodium (Rocephin) 1 gm in 50 mls @ 100 mls/hr IV Q24@2200 [facility] Last Infusion: 08/19/20 22:15 Dose: Infused Documented by: Sodium Chloride () 250 mls @ 15 mls/hr IV .[id number] PRN PRN Reason: Saline Flush Sodium Chloride () 250 mls @ 15 mls/hr IV .[id number] PRN PRN Reason: Additional IVPB Infusion Insulin Human Lispro (Insulin Lispro 100 Unit/Ml Insuln.Pen) 0 unit SC Q6 [facility]; Protocol Last Admin: 08/20/20 05:46 Dose: Not Given Documented by: Levothyroxine Sodium (Levothyroxine 25 Mcg Tablet) 25 mcg PO DAILY@0600 [facility] Last Admin: 08/20/20 05:38 Dose: 25 mcg Documented by: Midodrine (Midodrine Hcl 5 Mg Tablet) 10 mg PO TID [facility] Last Admin: 08/20/20 05:38 Dose: 10 mg Documented by: Nicotine (Nicotine 14 Mg Patch) 14 mg TD DAILY [facility] Last Admin: 08/20/20 08:03 Dose: 14 mg Documented by: Nitroglycerin (Nitroglycerin (Inpatient Use) 0.4 Mg Tab.Subl) 0.4 mg SUBLINGUAL Q5M PRN PRN Reason: CHEST PAIN Ondansetron HCl (Ondansetron 4 Mg/2 Ml Vial) 4 mg IV Q8H PRN PRN PRN Reason: NAUSEA/VOMITING Last Admin: 08/19/20 22:50 Dose: 4 mg Documented by: Oxycodone HCl (Oxycodone 5 Mg Tablet) 10 mg PO Q6H PRN PRN PRN Reason: Pain Score 6-10 Last Admin: 08/20/20 11:12 Dose: 10 mg Documented by: Pantoprazole Sodium (Pantoprazole Sodium 40 Mg Tablet) 40 mg PO DAILY [facility] Last Admin: 08/20/20 08:02 Dose: 40 mg Documented by: Promethazine HCl (Promethazine 25 Mg/Ml Syringe) 6.25 mg IV Q6H PRN PRN PRN Reason: NAUSEA/VOMITING Last Admin: 08/19/20 23:54 Dose: 6.25 mg Documented by: Rosuvastatin Calcium (Rosuvastatin 20 Mg Tablet) 40 mg PO DAILY@2200 [facility] Last Admin: 08/19/20 21:46 Dose: 40 mg Documented by: Sodium Chloride (0.9% Saline Lock 10 Ml Syringe) 10 - 40 ml IV UD PRN PRN Reason: SALINE FLUSH Last Admin: 08/19/20 23:55 Dose: 20 ml Documented by: Tamsulosin HCl (Tamsulosin Hcl 0.4 Mg Capsule) 0.4 mg PO DAILY@1730 [facility] Last Admin: 08/19/20 18:38 Dose: 0.4 mg Documented by: STROKE Vital Signs/Narrative: Vital Signs Temp Pulse Resp BP Pulse Ox 08/20/20 09:22 97.8 F 91 14 111/66 91 Assessment/Plan This patient was seen in conjunction with Taras Burden PA-C . I have independently interviewed and examined the patient and reviewed pertinent historical, laboratory, and other data. Please refer to Taras Burden PA-C note for details of this patient's presentation, findings, and recommendations. I have reviewed Taras Burden PA-C note and concur with documented findings. In brief, patient is a 70-year-old gentleman admitted with shortness of breath. Patient was found to have acute on chronic kidney injury and hyperglycemia with suspected pneumonia. Patient underwent dialysis catheter placement with initiation of dialysis Physical Examination: GENERAL: cooperative HEENT: Atraumatic; EYES; Anicteric, Normal Conjunctiva NECK; supple, normal thyroid, RESPIRATORY: Diminished to auscultation CARDIOVASCULAR: Regular S1 S2, GI: soft, normoactive bowel sounds, : No Renal angle tenderness; EXTREMITIES: no clubbing, MUSCULOSKELETAL: no muscle waisting NEURO: Awake; no lateralizing signs. SKIN: No Rash PSYCH; Flat affect Assessment: 1. Acute kidney injury 2. Chronic kidney disease stage III 3. Acute on chronic CHF with decreased ejection fraction EF 50% on an echo obtained on June 2020 4. Suspected community-acquired pneumonia 5. Ischemic cardiomyopathy status post AICD placement 6. CAD with previous CABG and subsequent stent placement 7. Diabetes mellitus type 2 8. Sulfonylurea induced glycemia 9. Essential hypertension 10. COPD 11. Dyslipidemia 12. GERD Recommendations: 1. I have discussed the results of my overview and impressions with the patient 2. Options for management were reviewed Inpatient E&M: 69013 Subs Hosp L2
[2020-08-20] MEDS: Acetaminophen 325 MG Tablet 650 MG PO (11:12)
--- NOTE | 2020-08-20 12:29 | DIALYSIS ---
HD x 3 hours complete. Tolerated tx well. UF of 1000ml. Used right chest wall dialysis catheter. Lumens closed with heparin per fill volume. Caps placed. Dressing in intact. Report was given to LEONIE Goldman.
--- NOTE | 2020-08-20 12:43 | PN.RENAL_ITS ---
Subjective: no new events - Physical Exam Vitals/I&O's: Vital Signs Temp Pulse Resp BP Pulse Ox 96.9 F L 97 16 119/59 L 91 08/20/20 12:28 08/20/20 12:28 08/20/20 12:28 08/20/20 12:28 08/20/20 09:22 Oxygen Flow Rate (L/min) 2.5 Oxygen Delivery Method Room Air Weight: 93.2 kg Body Mass Index (BMI) 30.2 Finger Stick Blood Glucose 195 Intake and Output for Last 24 Hours 08/18/20 08/19/20 08/20/20 23:59 23:59 23:59 Intake Total 3753.33 / 3753.33 1205 / 1205 250 / 250 Output Total 2100 / 2100 1100 / 1100 Balance 1653.33 / 1653.33 105 / 105 250 / 250 General: Alert, Oriented x3, Cooperative HEENT: Atraumatic, PERRLA, EOMI, Normocephalic Neck: Supple, No JVD, Negative Carotid Bruits Lungs: Clear to auscultation, Normal air movement Cardiovascular: Regular rate, No murmurs Abdomen: Bowel Sounds Present, Soft, Non Tender Extremities: No edema, Capillary Refill Less than 3 Seconds Skin: No rashes, No breakdown Musculoskeletal: No Tenderness to Palpation of Joints or Extremities Neurological: Cranial nerves II-XII grossly intact Psych/Mental Status: Normal Affect, Appropriate Microbiology Past 72 Hours 08/16/20 17:49 Blood Culture (Wb) - Right Wrist Blood Culture - Preliminary No growth in 48 hours. 08/16/20 17:45 Blood Culture (Wb) - Left Wrist Blood Culture - Preliminary No growth in 48 hours. Laboratory Results 08/16/20 17:13: Hep Bs Antigen Non-Reactive, Hep Bs Antibody Non-Reactive 08/19/20 18:29: POC Glucose 132 H 08/20/20 00:08: POC Glucose 102 08/20/20 04:25: WBC 6.2, RBC 4.14 L, Hgb 12.7 L, Hct 38.1 L, MCV 92.0, MCH 30.7, MCHC 33.3, RDW Std Deviation 50.0 H, RDW Coeff of Maggie 14.9 H, Plt Count 135 L, MPV 10.3, Immature Gran % (Auto) 0.300, Neut % (Auto) 69.8, Lymph % (Auto) 19.2, [place] % (Auto) 9.9, Eos % (Auto) 0.5, Baso % (Auto) 0.3, Absolute Neuts (auto) 4.3, Absolute Lymphs (auto) 1.18, Nucleated RBC % 0 08/20/20 04:25: PT 12.6, INR 1.0 08/20/20 04:25: Sodium 137, Potassium 3.5, Chloride 101, Carbon Dioxide 25.0, Anion Gap 11, BUN 63 H, Creatinine 4.44 H, Estim Creat Clear Calc 15.70, Est GFR (MDRD) Af Amer 17 L, Est GFR (MDRD) Non-Af 14 L, BUN/Creatinine Ratio 14.2, Glucose 89, Calcium 7.6 L 08/20/20 04:25: Hep B Core IgM Ab Pending 08/20/20 05:45: POC Glucose 104 Current Medications Acetaminophen (Acetaminophen 325 Mg Tablet) 650 mg PO Q6H PRN PRN PRN Reason: Pain Score 1-10/Temp > 100.7 F Last Admin: 08/20/20 11:12 Dose: 650 mg Documented by: Albuterol Sulfate (Albuterol 2.5 Mg/3 Ml Vial.Neb.) 2.5 mg INHALATION Q2H PRN PRN PRN Reason: SOB/Wheezing Last Admin: 08/20/20 04:20 Dose: 2.5 mg Documented by: Albuterol/Ipratropium (Ipratropium/Albuterol Sulfate 3 Ml Ampul.Neb) 3 ml INHALATION Q6HWA.RT [facility] Last Admin: 08/20/20 06:49 Dose: 3 ml Documented by: Allopurinol (Allopurinol 300 Mg Tablet) 300 mg PO DAILYCM [facility] Last Admin: 08/20/20 08:02 Dose: 300 mg Documented by: Carvedilol (Carvedilol 6.25 Mg Tablet) 6.25 mg PO BID [facility] Last Admin: 08/19/20 21:39 Dose: Not Given Documented by: Clopidogrel Bisulfate (Clopidogrel Bisulfate 75 Mg Tablet) 75 mg PO DAILY [facility] Last Admin: 08/20/20 08:02 Dose: 75 mg Documented by: Heparin Sodium (Porcine) (Heparin Injection (Vial) 5,000 Unit/Ml Vial) 5,000 unit SC Q8 [facility] Last Admin: 08/20/20 05:38 Dose: 5,000 unit Documented by: Heparin Sodium (Porcine) (Heparin 10,000 Units/10 Ml Vial) 0 - 10,000 units IV PRN PRN PRN Reason: DIALYSIS CATH Ceftriaxone Sodium (Rocephin) 1 gm in 50 mls @ 100 mls/hr IV Q24@2200 [facility] Last Infusion: 08/19/20 22:15 Dose: Infused Documented by: Sodium Chloride () 250 mls @ 15 mls/hr IV .[id number] PRN PRN Reason: Saline Flush Sodium Chloride () 250 mls @ 15 mls/hr IV .[id number] PRN PRN Reason: Additional IVPB Infusion Insulin Human Lispro (Insulin Lispro 100 Unit/Ml Insuln.Pen) 0 unit SC Q6 [facility]; Protocol Last Admin: 08/20/20 05:46 Dose: Not Given Documented by: Levothyroxine Sodium (Levothyroxine 25 Mcg Tablet) 25 mcg PO DAILY@0600 [facility] Last Admin: 08/20/20 05:38 Dose: 25 mcg Documented by: Midodrine (Midodrine Hcl 5 Mg Tablet) 10 mg PO TID [facility] Last Admin: 08/20/20 05:38 Dose: 10 mg Documented by: Nicotine (Nicotine 14 Mg Patch) 14 mg TD DAILY [facility] Last Admin: 08/20/20 08:03 Dose: 14 mg Documented by: Nitroglycerin (Nitroglycerin (Inpatient Use) 0.4 Mg Tab.Subl) 0.4 mg SUBLINGUAL Q5M PRN PRN Reason: CHEST PAIN Ondansetron HCl (Ondansetron 4 Mg/2 Ml Vial) 4 mg IV Q8H PRN PRN PRN Reason: NAUSEA/VOMITING Last Admin: 08/19/20 22:50 Dose: 4 mg Documented by: Oxycodone HCl (Oxycodone 5 Mg Tablet) 10 mg PO Q6H PRN PRN PRN Reason: Pain Score 6-10 Last Admin: 08/20/20 11:12 Dose: 10 mg Documented by: Pantoprazole Sodium (Pantoprazole Sodium 40 Mg Tablet) 40 mg PO DAILY [facility] Last Admin: 08/20/20 08:02 Dose: 40 mg Documented by: Promethazine HCl (Promethazine 25 Mg/Ml Syringe) 6.25 mg IV Q6H PRN PRN PRN Reason: NAUSEA/VOMITING Last Admin: 08/19/20 23:54 Dose: 6.25 mg Documented by: Rosuvastatin Calcium (Rosuvastatin 20 Mg Tablet) 40 mg PO DAILY@2200 [facility] Last Admin: 08/19/20 21:46 Dose: 40 mg Documented by: Sodium Chloride (0.9% Saline Lock 10 Ml Syringe) 10 - 40 ml IV UD PRN PRN Reason: SALINE FLUSH Last Admin: 08/19/20 23:55 Dose: 20 ml Documented by: Tamsulosin HCl (Tamsulosin Hcl 0.4 Mg Capsule) 0.4 mg PO DAILY@1730 [facility] Last Admin: 08/19/20 18:38 Dose: 0.4 mg Documented by: Medical Necessity - Tobacco Use Smoking Status: Current every day smoker Tobacco Use: Cigarettes Assessment/Plan 1- JILLIAN on CKD stage 3. baseline Cr 1.5-1.6 mg/dl CKD is likely from CRS and chronic use of high dose of NSAIDs JILLIAN is likely ATN from low BP, and poor intake. HD started 08/19 due to uremic symptoms. seen on HD today Next HD session tomorrow HD access R IJ TC renal US is ok check urinalysis 2- hypotensive likely from low EF Better. monitor BP with UF 3- CHF low EF. seems compensating. UF as tolerated 4-Pneumonia. On Ceftriaxone and Azithromycin as per the primary service
[2020-08-20 13:15] LABS: Bedside Glucose 107 mg/dL (70-110)
[2020-08-20] MEDS: Carvedilol 6.25 MG Tablet PO (15:05)
[2020-08-20] MEDS: Tamsulosin HCl 0.4 MG Capsule PO (17:15)
[2020-08-20 17:20] LABS: Bedside Glucose 120 mg/dL (70-110)
[2020-08-20 18:11] LABS: Bacteria 0 SEEN /hpf (None Seen); Mucous, Urine 0 SEEN /hpf (<or=2+); Squamous Epithelial Cells - UA 0 SEEN /hpf (0-5); White Blood Cells 0 SEEN /hpf (0-5)
[2020-08-20 18:15] LABS: Color, Urine Yellow (Yellow); Glucose, Dipstick Normal (Normal); Ketone-Dipstick Negative (Negative); Leukocyte Esterase-Dipstick Negative /ul (Negative); Nitrite-Dipstick Negative (Negative); Occult Blood-Urine 150 /ul (Negative); Protein-Dipstick 30 mg/dl (Negative); Urine Bilirubin Dipstick Negative (Negative); Urine Clarity Clear (Clear); Urine Urobilinogen Normal (Normal)
[2020-08-20 18:22] LABS: Red Blood Cells-Urine 0-5 SEEN /hpf (0-5)
[2020-08-20] MEDS: Ondansetron 4 MG/2 ML Vial IV (18:35)
[2020-08-20] MEDS: Rosuvastatin 20 MG Tablet 40 MG PO (23:04)
[2020-08-20] MEDS: Ceftriaxone 1 GM/50 ML BAG IV (23:08)
[2020-08-21] VITALS (11 sets, daily range): BP systolic 97–114; BP diastolic 58–69; PULSE 81–103; RESP 16–20; TEMP 36.4–37.1; O2SAT 91–98
[2020-08-21 00:16] LABS: Bedside Glucose 129 mg/dL (70-110)
[2020-08-21] MEDS: proMETHazine 25 MG/ML Syringe 6.25 MG IV ×2 (04:46→18:07)
[2020-08-21] MEDS: oxyCODONE 5 MG Tablet 10 MG PO ×4 (05:04→23:25)
[2020-08-21] MEDS: Levothyroxine 25 MCG TABLET PO (05:04)
[2020-08-21] MEDS: Midodrine HCl 5 MG Tablet 10 MG PO ×3 (05:05→23:25)
[2020-08-21] MEDS: Heparin Injection (Vial) 5,000 UNIT/ML VIAL 5000 UNIT SC ×3 (05:15→22:14)
[2020-08-21] MEDS: Ipratropium/Albuterol Sulfate 3 ML AMPUL.NEB INHALATION ×3 (06:54→22:34)
[2020-08-21] MEDS: Pantoprazole Sodium 40 MG Tablet PO (08:17)
[2020-08-21] MEDS: Allopurinol 300 MG Tablet PO (08:17)
[2020-08-21] MEDS: Clopidogrel Bisulfate 75 MG Tablet PO (08:17)
[2020-08-21 08:26] LABS: Bedside Glucose 113 mg/dL (70-110)
[2020-08-21 09:29] LABS: Hepatitis B Core AB IgM Negative (Negative)
--- NOTE | 2020-08-21 10:56 | CASEMGMT ---
Addendum entered by Sera Alaniz 08/21/20 13:16: Per Dr. Barbosa/Bernie MORTON, pt will be kept at least until tomorrow before discharge. Call to [place] at [facility] to notify that pt will not be there for 1st treatment tomorrow and to see if they can check on the financial clearance at this time. Doug HADLEY CM Original Note: All needed clinicals previously faxed to [facility] admissions and call to admissions to see if pt is financially clear at this time. Per [place] at [facility], he has cleared pt medically with a chair time of MWF at 0630, arrival time is 0610. Per [place] at [facility], pt is still pending financially at this time. CM to follow. Doug HADLEY CM
[2020-08-21 11:15] LABS: Bedside Glucose 103 mg/dL (70-110)
[2020-08-21] MEDS: 0.9% Saline Lock 10 ML Syringe IV ×2 (11:57→18:07)
[2020-08-21] MEDS: Ondansetron 4 MG/2 ML Vial IV ×2 (11:57→22:22)
--- NOTE | 2020-08-21 12:01 | PCM.PN.REN ---
Subjective: no new complaints - Physical Exam Vitals/I&O's: Vital Signs Temp Pulse Resp BP Pulse Ox 97.6 F L 95 16 107/58 L 93 08/21/20 08:15 08/21/20 08:15 08/21/20 08:15 08/21/20 08:15 08/21/20 08:15 Oxygen Flow Rate (L/min) 2 Oxygen Delivery Method Room Air Weight: 89.9 kg Body Mass Index (BMI) 30.2 Finger Stick Blood Glucose 195 Intake and Output for Last 24 Hours 08/19/20 08/20/20 08/21/20 23:59 23:59 23:59 Intake Total 1205 / 1205 770 / 770 450 / 450 Output Total 1100 / 1100 Balance 105 / 105 770 / 770 450 / 450 General: Alert, Oriented x3, Cooperative HEENT: Atraumatic, PERRLA, EOMI, Normocephalic Neck: Supple, No JVD, Negative Carotid Bruits Lungs: Clear to auscultation, Normal air movement Cardiovascular: Regular rate, No murmurs Abdomen: Bowel Sounds Present, Soft, Non Tender Extremities: No edema, Capillary Refill Less than 3 Seconds Skin: No rashes, No breakdown Musculoskeletal: No Tenderness to Palpation of Joints or Extremities Neurological: Cranial nerves II-XII grossly intact Psych/Mental Status: Normal Affect, Appropriate Microbiology Past 72 Hours 08/16/20 17:49 Blood Culture (Wb) - Right Wrist Blood Culture - Preliminary No growth in 48 hours. 08/16/20 17:45 Blood Culture (Wb) - Left Wrist Blood Culture - Preliminary No growth in 48 hours. Laboratory Results 08/20/20 04:25: Hep B Core IgM Ab Negative 08/20/20 13:07: POC Glucose 107 08/20/20 16:05: Eos Smear Total Cells Pending 08/20/20 16:05: Urine Color Yellow, Urine Clarity Clear, Urine pH 6.0, Ur Specific [place] 1.010, Urine Protein 30 H, Urine Glucose (UA) Normal, Urine Ketones Negative, Urine Occult Blood 150 H, Urine Nitrite Negative, Urine Bilirubin Negative, Urine Urobilinogen Normal, Ur Leukocyte Esterase Negative, Urine RBC 0-5 SEEN, Urine WBC 0 SEEN, Ur Squamous Epith Cells 0 SEEN, Urine Bacteria 0 SEEN, Urine Mucus 0 SEEN 08/20/20 17:13: POC Glucose 120 H 08/21/20 00:12: POC Glucose 129 H 08/21/20 08:13: POC Glucose 113 H 08/21/20 11:09: POC Glucose 103 Current Medications Acetaminophen (Acetaminophen 325 Mg Tablet) 650 mg PO Q6H PRN PRN PRN Reason: Pain Score 1-10/Temp > 100.7 F Last Admin: 08/20/20 11:12 Dose: 650 mg Documented by: Albuterol Sulfate (Albuterol 2.5 Mg/3 Ml Vial.Neb.) 2.5 mg INHALATION Q2H PRN PRN PRN Reason: SOB/Wheezing Last Admin: 08/20/20 16:58 Dose: 2.5 mg Documented by: Albuterol/Ipratropium (Ipratropium/Albuterol Sulfate 3 Ml Ampul.Neb) 3 ml INHALATION Q6HWA.RT COUNT INCLUDES THE [facility] Last Admin: 08/21/20 06:54 Dose: 3 ml Documented by: Allopurinol (Allopurinol 300 Mg Tablet) 300 mg PO DAILYCM COUNT INCLUDES THE [facility] Last Admin: 08/21/20 08:17 Dose: 300 mg Documented by: Carvedilol (Carvedilol 6.25 Mg Tablet) 6.25 mg PO BID COUNT [facility]CLUDES [facility] Last Admin: 08/21/20 08:19 Dose: Not Given Documented by: Clopidogrel Bisulfate (Clopidogrel Bisulfate 75 Mg Tablet) 75 mg PO DAILY COUNT [facility]CLUDES [facility] Last Admin: 08/21/20 08:17 Dose: 75 mg Documented by: Heparin Sodium (Porcine) (Heparin Injection (Vial) 5,000 Unit/Ml Vial) 5,000 unit SC Q8 [facility]CLUDES [facility] Last Admin: 08/21/20 05:15 Dose: 5,000 unit Documented by: Heparin Sodium (Porcine) (Heparin 10,000 Units/10 Ml Vial) 0 - 10,000 units IV PRN PRN PRN Reason: DIALYSIS CATH Ceftriaxone Sodium (Rocephin) 1 gm in 50 mls @ 100 mls/hr IV Q24@2200 [facility]CLUDES [facility] Last Infusion: 08/21/20 01:12 Dose: Infused Documented by: Sodium Chloride () 250 mls @ 15 mls/hr IV .[id number] PRN PRN Reason: Saline Flush Sodium Chloride () 250 mls @ 15 mls/hr IV .[id number] PRN PRN Reason: Additional IVPB Infusion Insulin Human Lispro (Insulin Lispro 100 Unit/Ml Insuln.Pen) 0 unit SC Q6 [facility]; Protocol Last Admin: 08/21/20 11:10 Dose: Not Given Documented by: Levothyroxine Sodium (Levothyroxine 25 Mcg Tablet) 25 mcg PO DAILY@0600 [facility] Last Admin: 08/21/20 05:04 Dose: 25 mcg Documented by: Midodrine (Midodrine Hcl 5 Mg Tablet) 10 mg PO TID COUNT [facility]CLUDES [facility] Last Admin: 08/21/20 05:05 Dose: 10 mg Documented by: Nicotine (Nicotine 14 Mg Patch) 14 mg TD DAILY [facility]CLUD[facility] Last Admin: 08/21/20 08:17 Dose: 14 mg Documented by: Nitroglycerin (Nitroglycerin (Inpatient Use) 0.4 Mg Tab.Subl) 0.4 mg SUBLINGUAL Q5M PRN PRN Reason: CHEST PAIN Ondansetron HCl (Ondansetron 4 Mg/2 Ml Vial) 4 mg IV Q8H PRN PRN PRN Reason: NAUSEA/VOMITING Last Admin: 08/21/20 11:57 Dose: 4 mg Documented by: Oxycodone HCl (Oxycodone 5 Mg Tablet) 10 mg PO Q6H PRN PRN PRN Reason: Pain Score 6-10 Last Admin: 08/21/20 11:07 Dose: 10 mg Documented by: Pantoprazole Sodium (Pantoprazole Sodium 40 Mg Tablet) 40 mg PO DAILY COUNT [facility]CLUDES [facility] Last Admin: 08/21/20 08:17 Dose: 40 mg Documented by: Promethazine HCl (Promethazine 25 Mg/Ml Syringe) 6.25 mg IV Q6H PRN PRN PRN Reason: NAUSEA/VOMITING Last Admin: 08/21/20 04:46 Dose: 6.25 mg Documented by: Rosuvastatin Calcium (Rosuvastatin 20 Mg Tablet) 40 mg PO DAILY@2200 [facility]CLUDES [facility] Last Admin: 08/20/20 23:04 Dose: 40 mg Documented by: Sodium Chloride (0.9% Saline Lock 10 Ml Syringe) 10 - 40 ml IV UD PRN PRN Reason: SALINE FLUSH Last Admin: 08/21/20 11:57 Dose: 10 ml Documented by: Tamsulosin HCl (Tamsulosin Hcl 0.4 Mg Capsule) 0.4 mg PO DAILY@1730 [facility]CLUDES [facility] Last Admin: 08/20/20 17:15 Dose: 0.4 mg Documented by: Medical Necessity - Tobacco Use Smoking Status: Current every day smoker Tobacco Use: Cigarettes Assessment/Plan 1- JILLIAN on CKD stage 3. baseline Cr 1.5-1.6 mg/dl HD started 08/19 due to uremic symptoms. seen on HD today HD access R IJ TC renal US is ok UA shows some protein and blood 2- hypotensive likely from low EF Better. monitor BP with UF 3- CHF low EF. seems compensating. UF as tolerated reviewed records from [facility][1]. he was admitted here on jul 17 for instent thrombosis. had PCI and stent placement by interventional cardiology. cr at the time of dc was 1.3 or so. patient says he has been voiding ok since then. he was taking Ibuprofen upto 16 a day and fifth of vodka a day. says he has been taking NSAIDs for a long time. doubt contrast nephropathy given delayed presentation but cholesterol emboli is possible. no peripheral signs of cholesterol emboli. urine eos pending but not many WBC on UA send ANCA and C3 also for now will reach out to Dr Levy if biopsy is needed ok to dc from my end if dialysis chair time is confirmed
--- NOTE | 2020-08-21 14:55 | PN_ITS ---
<Taras Burden - Last Filed: 08/21/20 14:55> Reason for Visit: JILILAN Subjective: Pt still feels shaky. He is concerned that he is not ready for discharge. He has no new SOB or LE edema. No fever chills. He is undergoing 3rd round of dialysis today. He plans for outpatient dialysis 3x/week Vitals/I&O's: Vital Signs Temp Pulse Resp BP Pulse Ox 97.6 F L 103 H 17 107/58 L 93 08/21/20 08:15 08/21/20 14:00 08/21/20 12:16 08/21/20 08:15 08/21/20 08:15 Oxygen Flow Rate (L/min) 2 Oxygen Delivery Method Room Air Weight: 198 lb 3.129 oz Body Mass Index (BMI) 30.2 Finger Stick Blood Glucose 195 Intake and Output for Last 24 Hours 08/19/20 08/20/20 08/21/20 23:59 23:59 23:59 Intake Total 1205 / 1205 770 / 770 450 / 450 Output Total 1100 / 1100 Balance 105 / 105 770 / 770 450 / 450 General: Alert, Oriented x3, Cooperative HEENT: Atraumatic, PERRLA, EOMI, Normocephalic Neck: Supple, No JVD, Negative Carotid Bruits Lungs: Clear to auscultation, Normal air movement Cardiovascular: Regular rate, No murmurs Abdomen: Bowel Sounds Present, Soft, Non Tender Extremities: No edema, Capillary Refill Less than 3 Seconds Skin: No rashes, No breakdown Musculoskeletal: No Tenderness to Palpation of Joints or Extremities Neurological: Cranial nerves II-XII grossly intact Psych/Mental Status: Normal Affect, Appropriate, Alert and oriented to time, place, person, mood and affect Microbiology Past 72 Hours 08/16/20 17:49 Blood Culture (Wb) - Right Wrist Blood Culture - Preliminary No growth in 48 hours. 08/16/20 17:45 Blood Culture (Wb) - Left Wrist Blood Culture - Preliminary No growth in 48 hours. Laboratory Results 08/20/20 04:25: Hep B Core IgM Ab Negative 08/20/20 16:05: Eos Smear Total Cells Pending 08/20/20 16:05: Urine Color Yellow, Urine Clarity Clear, Urine pH 6.0, Ur Specific [place] 1.010, Urine Protein 30 H, Urine Glucose (UA) Normal, Urine Ketones Negative, Urine Occult Blood 150 H, Urine Nitrite Negative, Urine Bilirubin Negative, Urine Urobilinogen Normal, Ur Leukocyte Esterase Negative, Urine RBC 0-5 SEEN, Urine WBC 0 SEEN, Ur Squamous Epith Cells 0 SEEN, Urine Bacteria 0 SEEN, Urine Mucus 0 SEEN 08/20/20 17:13: POC Glucose 120 H 08/21/20 00:12: POC Glucose 129 H 08/21/20 08:13: POC Glucose 113 H 08/21/20 11:09: POC Glucose 103 Current Medications Acetaminophen (Acetaminophen 325 Mg Tablet) 650 mg PO Q6H PRN PRN PRN Reason: Pain Score 1-10/Temp > 100.7 F Last Admin: 08/20/20 11:12 Dose: 650 mg Documented by: Albuterol Sulfate (Albuterol 2.5 Mg/3 Ml Vial.Neb.) 2.5 mg INHALATION Q2H PRN PRN PRN Reason: SOB/Wheezing Last Admin: 08/20/20 16:58 Dose: 2.5 mg Documented by: Albuterol/Ipratropium (Ipratropium/Albuterol Sulfate 3 Ml Ampul.Neb) 3 ml INHALATION Q6HWA.RT [facility] Last Admin: 08/21/20 12:16 Dose: 3 ml Documented by: Allopurinol ([facility] 300 Mg Tablet) [facility] Last Admin: 08/21/20 08:17 Dose: 300 mg Documented by: Carvedilol (Carvedilol 6.25 Mg Tablet) 6.25 mg PO BID [facility] Last Admin: 08/21/20 08:19 Dose: Not Given Documented by: Clopidogrel Bisulfate (Clopidogrel Bisulfate 75 Mg Tablet) 75 mg PO DAILY [facility] Last Admin: 08/21/20 08:17 Dose: 75 mg Documented by: Heparin Sodium (Porcine) (Heparin Injection (Vial) 5,000 Unit/Ml Vial) 5,000 unit SC Q8 [facility] Last Admin: 08/21/20 05:15 Dose: 5,000 unit Documented by: Heparin Sodium (Porcine) (Heparin 10,000 Units/10 Ml Vial) 0 - 10,000 units IV PRN PRN PRN Reason: DIALYSIS CATH Ceftriaxone Sodium (Rocephin) 1 gm in 50 mls @ 100 mls/hr IV Q24@2200 [facility] Last Infusion: 08/21/20 01:12 Dose: Infused Documented by: Sodium Chloride () 250 mls @ 15 mls/hr IV .[id number] PRN PRN Reason: Saline Flush Sodium Chloride () 250 mls @ 15 mls/hr IV .[id number] PRN PRN Reason: Additional IVPB Infusion Insulin Human Lispro (Insulin Lispro 100 Unit/Ml Insuln.Pen) 0 unit SC Q6 [facility]; Protocol Last Admin: 08/21/20 11:10 Dose: Not Given Documented by: Levothyroxine Sodium (Levothyroxine 25 Mcg Tablet) 25 mcg PO DAILY@0600 [facility] Last Admin: 08/21/20 05:04 Dose: 25 mcg Documented by: Midodrine (Midodrine Hcl 5 Mg Tablet) 10 mg PO TID [facility] Last Admin: 08/21/20 05:05 Dose: 10 mg Documented by: Nicotine (Nicotine 14 Mg Patch) 14 mg TD DAILY [facility] Last Admin: 08/21/20 08:17 Dose: 14 mg Documented by: Nitroglycerin (Nitroglycerin (Inpatient Use) 0.4 Mg Tab.Subl) 0.4 mg SUBLINGUAL Q5M PRN PRN Reason: CHEST PAIN Ondansetron HCl (Ondansetron 4 Mg/2 Ml Vial) 4 mg IV Q8H PRN PRN PRN Reason: NAUSEA/VOMITING Last Admin: 08/21/20 11:57 Dose: 4 mg Documented by: Oxycodone HCl (Oxycodone 5 Mg Tablet) 10 mg PO Q6H PRN PRN PRN Reason: Pain Score 6-10 Last Admin: 08/21/20 11:07 Dose: 10 mg Documented by: Pantoprazole Sodium (Pantoprazole Sodium 40 Mg Tablet) 40 mg PO DAILY [facility] Last Admin: 08/21/20 08:17 Dose: 40 mg Documented by: Promethazine HCl (Promethazine 25 Mg/Ml Syringe) 6.25 mg IV Q6H PRN PRN PRN Reason: NAUSEA/VOMITING Last Admin: 08/21/20 04:46 Dose: 6.25 mg Documented by: Rosuvastatin Calcium (Rosuvastatin 20 Mg Tablet) 40 mg PO DAILY@2200 [facility] Last Admin: 08/20/20 23:04 Dose: 40 mg Documented by: Sodium Chloride (0.9% Saline Lock 10 Ml Syringe) 10 - 40 ml IV UD PRN PRN Reason: SALINE FLUSH Last Admin: 08/21/20 11:57 Dose: 10 ml Documented by: Tamsulosin HCl (Tamsulosin Hcl 0.4 Mg Capsule) 0.4 mg PO DAILY@1730 [facility] Last Admin: 08/20/20 17:15 Dose: 0.4 mg Documented by: STROKE Vital Signs/Narrative: Vital Signs Pulse Resp 08/21/20 14:00 103 H 08/21/20 12:16 98 17 Medical Necessity - Tobacco Use Smoking Status: Current every day smoker Tobacco Use: Cigarettes Assessment/Plan 1. JILLIAN on CKDIII - dialysis - third round today. He has not previously had dialysis. [place] [facility] following. He will continue dialysis 3x/ week 2. Acute on chronic systolic CHF, ischemic CM - pt has AICD. Acute CHF appears resolved at this time. Care will primarily consist of dialysis at this point. TSH normal. 3. CAP - Rocephin/azithro (completed azithro). Doing well. walking pulse of prior to DC. Urine antigens neg. Resp panel neg. Blood cx neg. Covid neg. No fever/WBC elevation. 4. DMt2 with recurrent Hypoglycemia - pt should not resume glimeperide at dc. Blood sugar is controlled. He has not required sliding scale insulin yet. Plan to continue diabetic diet. A1C 5.9. 5. COPD - no exacerbation - prn aerosols 6. CAD - prior CABG/stents - imdur has been discontinued. 7. GERD - on PPI DVT ppx: heparin DC planning: home tomorrow if stable This patient was seen by Taras Burden PA-C under the supervision of Dr. Barbosa. <Miguel Barbosa - Last Filed: 08/21/20 15:47> Vitals/I&O's: Vital Signs Temp Pulse Resp BP Pulse Ox 98.2 F 93 18 109/58 L 93 08/21/20 15:05 08/21/20 15:05 08/21/20 15:05 08/21/20 15:05 08/21/20 15:05 Oxygen Flow Rate (L/min) 2 Oxygen Delivery Method Room Air Weight: 89.9 kg Body Mass Index (BMI) 30.2 Finger Stick Blood Glucose 195 Intake and Output for Last 24 Hours 08/19/20 08/20/20 08/21/20 23:59 23:59 23:59 Intake Total 1205 / 1205 770 / 770 750 / 750 Output Total 1100 / 1100 Balance 105 / 105 770 / 770 750 / 750 Microbiology Past 72 Hours 08/16/20 17:49 Blood Culture (Wb) - Right Wrist Blood Culture - Preliminary No growth in 48 hours. 08/16/20 17:45 Blood Culture (Wb) - Left Wrist Blood Culture - Preliminary No growth in 48 hours. Laboratory Results 08/20/20 04:25: Hep B Core IgM Ab Negative 08/20/20 16:05: Eos Smear Total Cells Pending 08/20/20 16:05: Urine Color Yellow, Urine Clarity Clear, Urine pH 6.0, Ur Specific [place] 1.010, Urine Protein 30 H, Urine Glucose (UA) Normal, Urine Ketones Negative, Urine Occult Blood 150 H, Urine Nitrite Negative, Urine Bilirubin Negative, Urine Urobilinogen Normal, Ur Leukocyte Esterase Negative, Urine RBC 0-5 SEEN, Urine WBC 0 SEEN, Ur Squamous Epith Cells 0 SEEN, Urine Bacteria 0 SEEN, Urine Mucus 0 SEEN 08/20/20 17:13: POC Glucose 120 H 08/21/20 00:12: POC Glucose 129 H 08/21/20 08:13: POC Glucose 113 H 08/21/20 11:09: POC Glucose 103 Current Medications Acetaminophen (Acetaminophen 325 Mg Tablet) 650 mg PO Q6H PRN PRN PRN Reason: Pain Score 1-10/Temp > 100.7 F Last Admin: 08/20/20 11:12 Dose: 650 mg Documented by: Albuterol Sulfate (Albuterol 2.5 Mg/3 Ml Vial.Neb.) 2.5 mg INHALATION Q2H PRN PRN PRN Reason: SOB/Wheezing Last Admin: 08/20/20 16:58 Dose: 2.5 mg Documented by: Albuterol/Ipratropium (Ipratropium/Albuterol Sulfate 3 Ml Ampul.Neb) 3 ml INHALATION Q6HWA.RT [facility] Last Admin: 08/21/20 12:16 Dose: 3 ml Documented by: Allopurinol (Allopurinol 300 Mg Tablet) 300 mg PO DAILYCM [facility] Last Admin: 08/21/20 08:17 Dose: 300 mg Documented by: Carvedilol (Carvedilol 6.25 Mg Tablet) 6.25 mg PO BID [facility] Last Admin: 08/21/20 08:19 Dose: Not Given Documented by: Clopidogrel Bisulfate (Clopidogrel Bisulfate 75 Mg Tablet) 75 mg PO DAILY [facility] Last Admin: 08/21/20 08:17 Dose: 75 mg Documented by: Heparin Sodium (Porcine) (Heparin Injection (Vial) 5,000 Unit/Ml Vial) 5,000 unit SC Q8 [facility] Last Admin: 08/21/20 15:04 Dose: 5,000 unit Documented by: Heparin Sodium (Porcine) (Heparin 10,000 Units/10 Ml Vial) 0 - 10,000 units IV PRN PRN PRN Reason: DIALYSIS CATH Ceftriaxone Sodium (Rocephin) 1 gm in 50 mls @ 100 mls/hr IV Q24@2200 [facility] Last Infusion: 08/21/20 01:12 Dose: Infused Documented by: Sodium Chloride () 250 mls @ 15 mls/hr IV .[id number] PRN PRN Reason: Saline Flush Sodium Chloride () 250 mls @ 15 mls/hr IV .[id number] PRN PRN Reason: Additional IVPB Infusion Insulin Human Lispro (Insulin Lispro 100 Unit/Ml Insuln.Pen) 0 unit SC Q6 [facility]; Protocol Last Admin: 08/21/20 11:10 Dose: Not Given Documented by: Levothyroxine Sodium (Levothyroxine 25 Mcg Tablet) 25 mcg PO DAILY@0600 [facility] Last Admin: 08/21/20 05:04 Dose: 25 mcg Documented by: Midodrine (Midodrine Hcl 5 Mg Tablet) 10 mg PO TID [facility] Last Admin: 08/21/20 15:04 Dose: 10 mg Documented by: Nicotine (Nicotine 14 Mg Patch) 14 mg TD DAILY [facility] Last Admin: 08/21/20 08:17 Dose: 14 mg Documented by: Nitroglycerin (Nitroglycerin (Inpatient Use) 0.4 Mg Tab.Subl) 0.4 mg SUBLINGUAL Q5M PRN PRN Reason: CHEST PAIN Ondansetron HCl (Ondansetron 4 Mg/2 Ml Vial) 4 mg IV Q8H PRN PRN PRN Reason: NAUSEA/VOMITING Last Admin: 08/21/20 11:57 Dose: 4 mg Documented by: Oxycodone HCl (Oxycodone 5 Mg Tablet) 10 mg PO Q6H PRN PRN PRN Reason: Pain Score 6-10 Last Admin: 08/21/20 11:07 Dose: 10 mg Documented by: Pantoprazole Sodium (Pantoprazole Sodium 40 Mg Tablet) 40 mg PO DAILY [facility] Last Admin: 08/21/20 08:17 Dose: 40 mg Documented by: Promethazine HCl (Promethazine 25 Mg/Ml Syringe) 6.25 mg IV Q6H PRN PRN PRN Reason: NAUSEA/VOMITING Last Admin: 08/21/20 04:46 Dose: 6.25 mg Documented by: Rosuvastatin Calcium (Rosuvastatin 20 Mg Tablet) 40 mg PO DAILY@2200 [facility] Last Admin: 08/20/20 23:04 Dose: 40 mg Documented by: Sodium Chloride (0.9% Saline Lock 10 Ml Syringe) 10 - 40 ml IV UD PRN PRN Reason: SALINE FLUSH Last Admin: 08/21/20 11:57 Dose: 10 ml Documented by: Tamsulosin HCl (Tamsulosin Hcl 0.4 Mg Capsule) 0.4 mg PO DAILY@1730 [facility] Last Admin: 08/20/20 17:15 Dose: 0.4 mg Documented by: STROKE Vital Signs/Narrative: Vital Signs Temp Pulse Resp BP Pulse Ox 08/21/20 15:05 98.2 F 93 18 109/58 L 93 08/21/20 14:00 103 H 08/21/20 12:16 98 17 Assessment/Plan This patient was seen in conjunction with Taras Burden PA-C . I have independently interviewed and examined the patient and reviewed pertinent historical, laboratory, and other data. Please refer to Taras Burden PA-C note for details of this patient's presentation, findings, and recommendations. I have reviewed Taras Burden PA-C note and concur with documented findings. In brief, patient is a 70-year-old gentleman admitted with shortness of breath. Patient was found to have acute on chronic kidney injury and hyperglycemia with suspected pneumonia. Patient underwent dialysis catheter placement with initiation of dialysis 08/21/2020; patient seen currently being dialyzed. Patient also complains of feeling weak. Plan was for patient to have been discharged today however she requested to stay an additional day. Physical Examination: GENERAL: cooperative HEENT: Atraumatic; EYES; Anicteric, Normal Conjunctiva NECK; supple, normal thyroid, RESPIRATORY: Diminished to auscultation CARDIOVASCULAR: Regular S1 S2, GI: soft, normoactive bowel sounds, : No Renal angle tenderness; EXTREMITIES: no clubbing, MUSCULOSKELETAL: no muscle waisting NEURO: Awake; no lateralizing signs. SKIN: No Rash PSYCH; Flat affect Assessment: 1. Acute kidney injury 2. Chronic kidney disease stage III 3. Acute on chronic CHF with decreased ejection fraction EF 50% on an echo obtained on June 2020 4. Suspected community-acquired pneumonia 5. Ischemic cardiomyopathy status post AICD placement 6. CAD with previous CABG and subsequent stent placement 7. Diabetes mellitus type 2 8. Sulfonylurea induced glycemia 9. Essential hypertension 10. COPD 11. Dyslipidemia 12. GERD Recommendations: 1. I have discussed the results of my overview and impressions with the patient 2. Options for management were reviewed Inpatient E&M: [id number] Subs Hosp L2
--- NOTE | 2020-08-21 15:06 | DIALYSIS ---
HD today as ordered. 3hr 3k uf -1000ml ending on profile B stable no issues.
[2020-08-21] MEDS: Tamsulosin HCl 0.4 MG Capsule PO (17:01)
[2020-08-21 17:05] LABS: Bedside Glucose 120 mg/dL (70-110)
[2020-08-21] MEDS: Ceftriaxone 1 GM/50 ML BAG IV (22:24)
[2020-08-22] VITALS (10 sets, daily range): BP systolic 106–119; BP diastolic 66–68; PULSE 88–102; RESP 16–18; TEMP 36.5–36.6; O2SAT 94–100
[2020-08-22] MEDS: proMETHazine 25 MG/ML Syringe 6.25 MG IV (00:36)
[2020-08-22 01:05] LABS: Bedside Glucose 118 mg/dL (70-110)
[2020-08-22] MEDS: Levothyroxine 25 MCG TABLET PO (05:39)
[2020-08-22] MEDS: oxyCODONE 5 MG Tablet 10 MG PO ×2 (05:39→12:11)
[2020-08-22] MEDS: Midodrine HCl 5 MG Tablet 10 MG PO ×2 (05:39→15:50)
[2020-08-22] MEDS: Heparin Injection (Vial) 5,000 UNIT/ML VIAL 5000 UNIT SC ×2 (05:41→15:50)
[2020-08-22 06:00] LABS: Mean Corp Hgb Conc 33.3 g/dL (32-36); Mean Corpuscular Hgb 30.9 pg (27.0-32.0); Mean Corpuscular Volume 92.6 fL (80-94); Platelet Count 135 K/mm3 (150-450); RBC Distribution Width CV 14.6 % (11.6-14.6); RBC Distribution Width SD 48.5 fl (35.1-43.9); Red Blood Count 4.21 M/mm3 (4.6-6.2); White Blood Count 5.4 K/mm3 (4.4-11.0)
[2020-08-22 06:30] LABS: Anion Gap 8 (5-15); BUN 35 mg/dL (7-18); BUN/Creat Ratio 14.1 RATIO (10-20); Calcium,Total 8.5 mg/dL (8.5-10.1); Chloride 98 mmol/L (98-107); Creatinine, Serum 2.49 mg/dL (0.70-1.30); EST Glomerular Filtration Rate 27 mL/min (>60); Est Glom Filt Rate - Afr Amer 33 mL/min (>60); Glucose 104 mg/dL (74-106); Magnesium 1.8 mg/dL (1.6-2.6); Potassium 3.2 mmol/L (3.5-5.1); Sodium Level 133 mmol/L (136-145)
[2020-08-22] MEDS: Ipratropium/Albuterol Sulfate 3 ML AMPUL.NEB INHALATION ×2 (07:07→13:04)
[2020-08-22] MEDS: Magnesium Chloride 64 MG Delay Rel.Tablet 128 MG PO (09:21)
[2020-08-22] MEDS: Allopurinol 300 MG Tablet PO (09:21)
[2020-08-22] MEDS: Pantoprazole Sodium 40 MG Tablet PO (09:22)
[2020-08-22] MEDS: Clopidogrel Bisulfate 75 MG Tablet PO (09:22)
--- NOTE | 2020-08-22 09:46 | CASEMGMT ---
Addendum entered by Sera Alaniz 08/22/20 15:35: [facility] to check on [facility] at this time. If she gets approval, she will call PCU to notify so pt can be discharged. Pt updated, voices understanding. Doug HADLEY CM Addendum entered by Sera Alaniz 08/22/20 14:58: Pt updated on pending financial approval and that this is causing delay in discharge at this time, voices understanding. Call to [place] at [facility] and unable to reach him at this time. Doug HADLEY CM Addendum entered by Sera Alaniz 08/22/20 13:27: Still no financial approval via portal so call placed to Bala at [facility] to check on financial approval. She states it is not back yet but she will check with authorizations to check on status at this time and give this RN ESTIVEN a call back. Pt is up for discharge at this time but awaiting financial clearance. Pt does not qualify for home oxygen at this time. Doug HADLEY CM Original Note: Call to [place] at [facility] to check on financials for pt's OP HD and he states he will call this RN ESTIVEN back. [place] is aware that pt to be discharged today, voices understanding. CM to follow. Doug HADLEY CM
--- NOTE | 2020-08-22 10:31 | DCINST_ITS ---
- Discharge Diagnoses Current Active Problems: Current Active and Chronic Problems (Last Reviewed 07/16/20 @ 15:[address] Ravin Ortega, DO) Smoking greater than 30 pack years (Chronic) Appropriate for low-dose CT lung screening due January 2021 ARIADNA (obstructive sleep apnea) (Chronic) COPD (chronic obstructive pulmonary disease) (Chronic) FEV1 64% of predicted Obesity (BMI 30.0-34.9) (Chronic) Nicotine dependence (Chronic) Chronic back pain (Chronic) Chronic renal failure, stage 3 (moderate) (Chronic) Chronic systolic (congestive) heart failure (Chronic) Benign essential hypertension (Chronic) Gastroesophageal reflux disease (Chronic) Hyperlipidemia (Chronic) Type 2 diabetes mellitus (Chronic) CAD (coronary artery disease) (Chronic) You will use the following diet at home:: Renal (restricted protein/sodium) Your food should be the consistency of: Regular Your liquids should be the consistency of: Regular/Thin Discharge Activity: Return to Normal Activity, May not drive while taking narcotic pain medications. Call your doctor if you observe: Shortness of breath, Swelling in the ankles Allergies/Adverse Reactions: Allergies chlorpromazine HCl [From Thorazine] Allergy (Severe, Verified 08/16/20 16:11) Hives PER PATIENT tramadol HCl [From Ultram] Allergy (Severe, Verified 08/16/20 16:11) Hives PER PATIENT codeine Allergy (Intermediate, Verified 08/16/20 16:11) Hives atorvastatin Adverse Reaction (Intermediate, Verified 08/16/20 16:11) LEG PAIN/CRAMPS LEG PAIN/CRAMPS cyclobenzaprine [From Flexeril] Adverse Reaction (Verified 08/16/20 16:11) Upset Stomach metformin Adverse Reaction (Verified 08/16/20 16:11) Upset Stomach naproxen Adverse Reaction (Verified 08/16/20 16:11) Upset Stomach Medications to take at Discharge Pantoprazole Sodium [Protonix] 40 mg PO DAILY 11/15/17 Rosuvastatin Calcium [Crestor] 40 mg PO DAILY 06/16/18 Clopidogrel Bisulfate [Plavix] 75 mg PO DAILY 09/01/18 Allopurinol 300 mg PO DAILY 09/20/18 Nitroglycerin 0.4 mg SL PRN PRN 12/01/18 Albuterol Inhaler [Ventolin Hfa] 2 puff INHALATION Q4H PRN PRN 02/24/19 Oxycodone HCl/Acetaminophen [Oxycodon-Acetaminophen 7.5-325] 1 tab PO Q6H PRN 05/02/19 aspirin 325 mg tablet,delayed release 325 mg PO DAILY 10/05/19 Carvedilol [Coreg (Beta Sina)] 6.25 mg PO BID 10/19/19 Levothyroxine [Synthroid] 25 mcg PO DAILY@0600 10/19/19 umeclidinium 62.5 mcg-vilanterol 25 mcg/actuation powdr for inhalation 1 inh INHALATION Q24H #1 ea 07/19/20 Midodrine HCl [Proamatine] 10 mg PO TID #90 tab 08/22/20 Tamsulosin HCl [Flomax] 0.4 mg PO DAILY@1730 #30 cap 08/22/20 The following prescriptions were given: Tamsulosin HCl [Flomax] 0.4 mg PO DAILY@1730 #30 cap Transmission Status: Sent to [facility] Midodrine HCl [Proamatine] 10 mg PO TID #90 tab Transmission Status: Sent to [facility] Primary Care Physician: Juan De La Vega III, MD [Primary Care Provider] - Please follow up with your Primary Care Physician in: 1-2 weeks Test Results: Test results from this visit will be discussed in further detail at your follow- up appointment, if applicable. Please Follow Up With: Shimon De La Vega MD When: 2-4 weeks Please Follow Up With: Dakota Faith MD - dialysis When: as directed Proposed Discharge Date: 08/22/20
[2020-08-22] MEDS: Albuterol 2.5 MG/3 ML VIAL.NEB. INHALATION (10:41)
--- NOTE | 2020-08-22 11:23 | PCM.DC.SUM ---
<Taras Burden - Last Filed: 08/22/20 11:23> Discharge Date and Diagnosis Date of Admission: 08/16/20 Date of Discharge: 08/22/20 - Primary Discharge Diagnosis Acute Problems: JILLIAN on CKD, now ESRD, on dialysis Acute hypoglycemia 2/2 JILLIAN and oral diabetic agent - amaryl Acute hypoxic respiratory failure 2/2 CAP, acute on chronic systolic CHF - Secondary Discharge Diagnosis Chronic Problems: Chronic Problems (Last Reviewed 07/16/20 @ 15:[address] Ravin Ortega, DO) Smoking greater than 30 pack years (Chronic) Appropriate for low-dose CT lung screening due January 2021 History of left heart catheterization (Chronic 07/17/20) LEFT MAIN: Angiographically normal;LEFT ANTERIOR DESCENDING ARTERY: PROX LAD: Moderate calcification MID LAD: is occluded with the mid to distal vessel filling late, DIAGONAL 1: Proximal - is occluded with the distal vessel filling late and faintly; CIRCUMFLEX ARTERY: Mild luminal irregularities, MID CIRC: 50 % Stenosis; RIGHT CORONARY ARTERY: not evaluated (previously documented as chronically occluded); GRAFTS: HUMPHREY graft to the Mid LAD previously documented as small, atretic, and occluded; Saphenous Vein graft to the 1st Diagonal previously; documented as occluded; Saphenous Vein graft to the 1st OM previously placed stent is patent with subsequent mid 90 % stenosis and distal, pre bifurcation, hazy 75 % stenosis; Saphenous Vein graft to the RCA previously documented as occluded - per cardiac cath 07/17/20 - LVEF: by LV gram 15-20 %; Jamul Multivessel CAD; Occluded [place] mid LAD. Occluded [place] proximal RCA. Occluded SVG to DIAG. Occluded SVG to RCA. Occluded HUMPHREY to LAD. Severe 85% stenosis in last remaining vessel of SVG to LCX with widely patent SVG stents. Severe LV dysfunction. Referred for immediate PCI: Will tx to [facility] for high risk PCI to last remaining vessel of SVG to OM. 06/29/19 per DANA @ [facility] Hypoxia, sleep related (Chronic) ARIADNA (obstructive sleep apnea) (Chronic) COPD (chronic obstructive pulmonary disease) (Chronic) FEV1 64% of predicted Obesity (BMI 30.0-34.9) (Chronic) Nicotine dependence (Chronic) Gout (Chronic) Degenerative cervical disc (Chronic) Chronic back pain (Chronic) Presence of automatic implantable cardioverter-defibrillator (Chronic) H/O coronary artery bypass surgery (Chronic ~2008) HUMPHREY-LAD, SVG-D1, SVG-OM Chronic renal failure, stage 3 (moderate) (Chronic) Chronic systolic (congestive) heart failure (Chronic) Stented coronary artery (Chronic ~12/2016) has had 7 stents as of 06/15/17 Ischemic cardiomyopathy (Chronic) 25% ejection fraction in November 2016 V-tach (Chronic) has an AICD Benign essential hypertension (Chronic) Gastroesophageal reflux disease (Chronic) Hyperlipidemia (Chronic) Type 2 diabetes mellitus (Chronic) Morbid obesity (Chronic) CAD (coronary artery disease) (Chronic) Hospital Course and Treatment Imaging Results: CT/STROKE Brain/Head without Cont IMPRESSION: Atrophy and periventricular white matter ischemic changes with without evidence for acute bleed. If concern for acute infarct MRI recommended RAD/Chest 1 View IMPRESSION: Findings suggestive of mild congestive failure however cannot exclude coexisting pneumonia. Clinical correlation recommended US/Kidney and Bladder IMPRESSION: Normal ultrasound of the kidneys and urinary bladder. RAD/Foot min 3 Views IMPRESSION: No fracture or malalignment. RAD/Chest PA and Lateral IMPRESSION: Chronic interestitial changes. Decrease airspace disease consistent with improving pneumonia. RAD/CXR for Line Placement IMPRESSION: A focal opacity at the left lung base suggest possible nodule. Consults: Nephrology - [facility] nephrology General surgery - [facility] Podiatry - Martha Operations: None Procedures: Dialysis Summary of Care Provided: Hospital Course: The patient is a 70 year old M with past medical history of type 2 diabetes, CAD, CKD stage III, chronic systolic congestive heart failure, AICD in place, Who presented to the emergency room with complaints of shortness of breath, dizziness, paresthesias, and hypoglycemia for 2 days. He was noted to have acute kidney injury on CKD stage III, pneumonia which was felt to be community-acquired, and hyperglycemia with blood sugars at 39. Blood sugars were felt to be due to JILLIAN and Amaryl. Patient was admitted to the PCU and treated for JILLIAN and community-acquired pneumonia with Rocephin and azithromycin. He was also felt to have some degree of acute CHF. Nephrology was consulted. Patient's renal function declined and dialysis was recommended. The patient was agreeable and he was started on dialysis per [place] [facility]. Patient's breathing issues resolved and he completed full therapy with azithromycin and Rocephin for pneumonia while here. Patient's blood pressure was low with dialysis so Imdur and Entresto were discontinued. He was placed on midodrine for pressure support. Patient's blood sugars remained well controlled without any oral diabetic medications and no sliding scale insulin was ever required. He was placed on flomax for urinary retention and does continue to produce urine. He was taken off lasix and CHF was well managed with dialysis. At discharge she will not resume the aforementioned medications. He will need follow-up with vascular surgery in 2 to 4 weeks, follow-up with nephrology for ongoing dialysis as directed. Patient was discharged home in stable condition. He should also follow-up with his PCP in 1 to 2 weeks. This patient was seen by Taras Burden PA-C under the supervision of Doctor Chelsey. [] - Physical Exam Vitals/I&O's: Vital Signs Temp Pulse Resp BP Pulse Ox 97.9 F 90 16 106/66 97 08/22/20 09:24 08/22/20 10:41 08/22/20 10:41 08/22/20 09:24 08/22/20 11:11 Oxygen Flow Rate (L/min) 2 Oxygen Delivery Method Room Air Weight: 194 lb 0.108 oz Body Mass Index (BMI) 30.2 Finger Stick Blood Glucose 195 Intake and Output for Last 24 Hours 08/20/20 08/21/20 08/22/20 23:59 23:59 23:59 Intake Total 770 / 770 1400 / 1800 600 / 600 Balance 770 / 770 1400 / 1800 600 / 600 General: Alert, Oriented x3, Cooperative HEENT: Atraumatic, PERRLA, EOMI, Normocephalic Neck: Supple, No JVD, Negative Carotid Bruits Lungs: Clear to auscultation, Normal air movement Cardiovascular: Regular rate, No murmurs Abdomen: Bowel Sounds Present, Soft, Non Tender Extremities: No edema, Capillary Refill Less than 3 Seconds Skin: No rashes, No breakdown Musculoskeletal: No Tenderness to Palpation of Joints or Extremities Neurological: Cranial nerves II-XII grossly intact Psych/Mental Status: Normal Affect, Appropriate, Alert and oriented to time, place, person, mood and affect Microbiology Past 72 Hours 08/16/20 17:49 Blood Culture (Wb) - Right Wrist Blood Culture - Final No growth in 5 days. 08/16/20 17:45 Blood Culture (Wb) - Left Wrist Blood Culture - Final No growth in 5 days. Laboratory Results 08/21/20 17:03: POC Glucose 120 H 08/22/20 01:00: POC Glucose 118 H 08/22/20 05:54: WBC 5.4, RBC 4.21 L, Hgb 13.0, Hct 39.0 L, MCV 92.6, MCH 30.9, MCHC 33.3, RDW Std Deviation 48.5 H, RDW Coeff of Maggie 14.6, Plt Count 135 L, MPV 10.0 08/22/20 05:54: Sodium 133 L, Potassium 3.2 L, Chloride 98, Carbon Dioxide 27.0, Anion Gap 8, BUN 35 H, Creatinine 2.49 H, Estim Creat Clear Calc 28.00, Est GFR (MDRD) Af Amer 33 L, Est GFR (MDRD) Non-Af 27 L, BUN/Creatinine Ratio 14.1, Glucose 104, Calcium 8.5, Magnesium 1.8 08/22/20 05:54: c-ANCA Antibody Pending, p-ANCA Antibody Pending, Complement C3 Pending Current Medications Acetaminophen (Acetaminophen 325 Mg Tablet) 650 mg PO Q6H PRN PRN PRN Reason: Pain Score 1-10/Temp > 100.7 F Last Admin: 08/20/20 11:12 Dose: 650 mg Documented by: Albuterol Sulfate (Albuterol 2.5 Mg/3 Ml Vial.Neb.) 2.5 mg INHALATION Q2H PRN PRN PRN Reason: SOB/Wheezing Last Admin: 08/22/20 10:41 Dose: 2.5 mg Documented by: Albuterol/Ipratropium (Ipratropium/Albuterol Sulfate 3 Ml Ampul.Neb) 3 ml INHALATION Q6HWA.RT [facility] Last Admin: 08/22/20 07:07 Dose: 3 ml Documented by: Allopurinol (Allopurinol 300 Mg Tablet) 300 mg PO DAILYCM [facility] Last Admin: 08/22/20 09:21 Dose: 300 mg Documented by: Carvedilol (Carvedilol 6.25 Mg Tablet) 6.25 mg PO BID [facility] Last Admin: 08/22/20 09:23 Dose: Not Given Documented by: Clopidogrel Bisulfate (Clopidogrel Bisulfate 75 Mg Tablet) 75 mg PO DAILY [facility] Last Admin: 08/22/20 09:22 Dose: 75 mg Documented by: Heparin Sodium (Porcine) (Heparin Injection (Vial) 5,000 Unit/Ml Vial) 5,000 unit SC Q8 [facility] Last Admin: 08/22/20 05:41 Dose: 5,000 unit Documented by: Heparin Sodium (Porcine) (Heparin 10,000 Units/10 Ml Vial) 0 - 10,000 units IV PRN PRN PRN Reason: DIALYSIS CATH Ceftriaxone Sodium (Rocephin) 1 gm in 50 mls @ 100 mls/hr IV Q24@2200 [facility] Last Infusion: 08/21/20 23:00 Dose: Infused Documented by: Sodium Chloride () 250 mls @ 15 mls/hr IV .[id number] PRN PRN Reason: Saline Flush Sodium Chloride () 250 mls @ 15 mls/hr IV .[id number] PRN PRN Reason: Additional IVPB Infusion Insulin Human Lispro (Insulin Lispro 100 Unit/Ml Insuln.Pen) 0 unit SC Q6 [facility]; Protocol Last Admin: 08/22/20 07:12 Dose: Not Given Documented by: Levothyroxine Sodium (Levothyroxine 25 Mcg Tablet) 25 mcg PO DAILY@0600 [facility] Last Admin: 08/22/20 05:39 Dose: 25 mcg Documented by: Midodrine (Midodrine Hcl 5 Mg Tablet) 10 mg PO TID [facility] Last Admin: 08/22/20 05:39 Dose: 10 mg Documented by: Nicotine (Nicotine 14 Mg Patch) 14 mg TD DAILY [facility] Last Admin: 08/22/20 09:22 Dose: 14 mg Documented by: Nitroglycerin (Nitroglycerin (Inpatient Use) 0.4 Mg Tab.Subl) 0.4 mg SUBLINGUAL Q5M PRN PRN Reason: CHEST PAIN Ondansetron HCl (Ondansetron 4 Mg/2 Ml Vial) 4 mg IV Q8H PRN PRN PRN Reason: NAUSEA/VOMITING Last Admin: 08/21/20 22:22 Dose: 4 mg Documented by: Oxycodone HCl (Oxycodone 5 Mg Tablet) 10 mg PO Q6H PRN PRN PRN Reason: Pain Score 6-10 Last Admin: 08/22/20 05:39 Dose: 10 mg Documented by: Pantoprazole Sodium (Pantoprazole Sodium 40 Mg Tablet) 40 mg PO DAILY [facility] Last Admin: 08/22/20 09:22 Dose: 40 mg Documented by: Promethazine HCl (Promethazine 25 Mg/Ml Syringe) 6.25 mg IV Q6H PRN PRN PRN Reason: NAUSEA/VOMITING Last Admin: 08/22/20 00:36 Dose: 6.25 mg Documented by: Rosuvastatin Calcium (Rosuvastatin 20 Mg Tablet) 40 mg PO DAILY@2200 [facility] Last Admin: 08/21/20 22:13 Dose: Not Given Documented by: Sodium Chloride (0.9% Saline Lock 10 Ml Syringe) 10 - 40 ml IV UD PRN PRN Reason: SALINE FLUSH Last Admin: 08/21/20 18:07 Dose: 10 ml Documented by: Tamsulosin HCl (Tamsulosin Hcl 0.4 Mg Capsule) 0.4 mg PO DAILY@1730 [facility] Last Admin: 08/21/20 17:01 Dose: 0.4 mg Documented by: Discharge Diet: Renal Diet Discharge Activity: Return to Normal Activity, May not drive while taking narcotic pain medications. Call your doctor if you observe: Shortness of breath, Swelling in the ankles Home Medications: Medications to take at Discharge Pantoprazole Sodium [Protonix] 40 mg PO DAILY 11/15/17 Rosuvastatin Calcium [Crestor] 40 mg PO DAILY 06/16/18 Clopidogrel Bisulfate [Plavix] 75 mg PO DAILY 09/01/18 Allopurinol 300 mg PO DAILY 09/20/18 Nitroglycerin 0.4 mg SL PRN PRN 12/01/18 Albuterol Inhaler [Ventolin Hfa] 2 puff INHALATION Q4H PRN PRN 02/24/19 Oxycodone HCl/Acetaminophen [Oxycodon-Acetaminophen 7.5-325] 1 tab PO Q6H PRN 05/02/19 aspirin 325 mg tablet,delayed release 325 mg PO DAILY 10/05/19 Carvedilol [Coreg (Beta Sina)] 6.25 mg PO BID 10/19/19 Levothyroxine [Synthroid] 25 mcg PO DAILY@0600 10/19/19 umeclidinium 62.5 mcg-vilanterol 25 mcg/actuation powdr for inhalation 1 inh INHALATION Q24H #1 ea 07/19/20 Midodrine HCl [Proamatine] 10 mg PO TID #90 tab 08/22/20 Tamsulosin HCl [Flomax] 0.4 mg PO DAILY@1730 #30 cap 08/22/20 Following Prescriptions Were Given to Patient: Tamsulosin HCl [Flomax] 0.4 mg PO DAILY@1730 #30 cap Transmission Status: Received by [employer] #30 Midodrine HCl [Proamatine] 10 mg PO TID #90 tab Transmission Status: Received by [employer] [facility] Primary Care Physician: Juan De La Vega III, MD [Primary Care Provider] - Please follow up with your Primary Care Physician in: 1-2 weeks Please Follow Up With: Shimon De La Vega MD When: 2-4 weeks Please Follow Up With: Dakota Faith MD When: as directed Please Follow Up With: Juan De La Vega III, MD Disposition: Home Minutes spent on discharge:: 35 Patient Condition:: Stable Medical Necessity - Tobacco Use Smoking Status: Current every day smoker Tobacco Use: Cigarettes Meaningful Use Info Meaningful Use Diagnoses (Choose all that apply): None applicable <Miguel Barbosa - Last Filed: 08/22/20 12:20> Discharge Date and Diagnosis - Secondary Discharge Diagnosis Chronic Problems: Chronic Problems (Last Reviewed 07/16/20 @ 15:[address] Ravin Ortega, DO) Smoking greater than 30 pack years (Chronic) Appropriate for low-dose CT lung screening due January 2021 History of left heart catheterization (Chronic 07/17/20) LEFT MAIN: Angiographically normal;LEFT ANTERIOR DESCENDING ARTERY: PROX LAD: Moderate calcification MID LAD: is occluded with the mid to distal vessel filling late, DIAGONAL 1: Proximal - is occluded with the distal vessel filling late and faintly; CIRCUMFLEX ARTERY: Mild luminal irregularities, MID CIRC: 50 % Stenosis; RIGHT CORONARY ARTERY: not evaluated (previously documented as chronically occluded); GRAFTS: HUMPHREY graft to the Mid LAD previously documented as small, atretic, and occluded; Saphenous Vein graft to the 1st Diagonal previously; documented as occluded; Saphenous Vein graft to the 1st OM previously placed stent is patent with subsequent mid 90 % stenosis and distal, pre bifurcation, hazy 75 % stenosis; Saphenous Vein graft to the RCA previously documented as occluded - per cardiac cath 07/17/20 - LVEF: by LV gram 15-20 %; Jamul Multivessel CAD; Occluded [place] mid LAD. Occluded [place] proximal RCA. Occluded SVG to DIAG. Occluded SVG to RCA. Occluded HUMPHREY to LAD. Severe 85% stenosis in last remaining vessel of SVG to LCX with widely patent SVG stents. Severe LV dysfunction. Referred for immediate PCI: Will tx to [facility] for high risk PCI to last remaining vessel of SVG to OM. 06/29/19 per JACKIEN @ [facility] Hypoxia, sleep related (Chronic) ARIADNA (obstructive sleep apnea) (Chronic) COPD (chronic obstructive pulmonary disease) (Chronic) FEV1 64% of predicted Obesity (BMI 30.0-34.9) (Chronic) Nicotine dependence (Chronic) Gout (Chronic) Degenerative cervical disc (Chronic) Chronic back pain (Chronic) Presence of automatic implantable cardioverter-defibrillator (Chronic) H/O coronary artery bypass surgery (Chronic ~2008) HU[place]HREY-LAD, SVG-D1, SVG-OM Chronic renal failure, stage 3 (moderate) (Chronic) Chronic systolic (congestive) heart failure (Chronic) Stented coronary artery (Chronic ~12/2016) has had 7 stents as of 06/15/17 Ischemic cardiomyopathy (Chronic) 25% ejection fraction in November 2016 V-tach (Chronic) has an AICD Benign essential hypertension (Chronic) Gastroesophageal reflux disease (Chronic) Hyperlipidemia (Chronic) Type 2 diabetes mellitus (Chronic) Morbid obesity (Chronic) CAD (coronary artery disease) (Chronic) Hospital Course and Treatment Summary of Care Provided: This patient was seen in conjunction with Taras Burden PA-C . I have independently interviewed and examined the patient and reviewed pertinent historical, laboratory, and other data. Please refer to Taras Burden PA-C note for details of this patient's presentation, findings, and recommendations. I have reviewed Taras Burden PA-C note and concur with documented findings. In brief, patient is a 70-year-old gentleman admitted with shortness of breath. Patient was found to have acute on chronic kidney injury and hyperglycemia with suspected pneumonia. Patient underwent dialysis catheter placement with initiation of dialysis Assessment: 1. Acute kidney injury 2. Chronic kidney disease stage III 3. Acute on chronic CHF with decreased ejection fraction EF 50% on an echo obtained on June 2020 4. Suspected community-acquired pneumonia 5. Ischemic cardiomyopathy status post AICD placement 6. CAD with previous CABG and subsequent stent placement 7. Diabetes mellitus type 2 8. Sulfonylurea induced glycemia 9. Essential hypertension 10. COPD 11. Dyslipidemia 12. GERD Hospital course: As documented above - Physical Exam Vitals/I&O's: Vital Signs Temp Pulse Resp BP Pulse Ox 97.9 F 90 16 106/66 97 08/22/20 09:24 08/22/20 10:41 08/22/20 10:41 08/22/20 09:24 08/22/20 11:11 Oxygen Flow Rate (L/min) 2 Oxygen Delivery Method Room Air Weight: 88 kg Body Mass Index (BMI) 30.2 Finger Stick Blood Glucose 195 Intake and Output for Last 24 Hours 08/20/20 08/21/20 08/22/20 23:59 23:59 23:59 Intake Total 770 / 770 1400 / 1800 600 / 600 Balance 770 / 770 1400 / 1800 600 / 600 Microbiology Past 72 Hours 08/16/20 17:49 Blood Culture (Wb) - Right Wrist Blood Culture - Final No growth in 5 days. 08/16/20 17:45 Blood Culture (Wb) - Left Wrist Blood Culture - Final No growth in 5 days. Laboratory Results 08/21/20 17:03: POC Glucose 120 H 08/22/20 01:00: POC Glucose 118 H 08/22/20 05:54: WBC 5.4, RBC 4.21 L, Hgb 13.0, Hct 39.0 L, MCV 92.6, MCH 30.9, MCHC 33.3, RDW Std Deviation 48.5 H, RDW Coeff of Maggie 14.6, Plt Count 135 L, MPV 10.0 08/22/20 05:54: Sodium 133 L, Potassium 3.2 L, Chloride 98, Carbon Dioxide 27.0, Anion Gap 8, BUN 35 H, Creatinine 2.49 H, Estim Creat Clear Calc 28.00, Est GFR (MDRD) Af Amer 33 L, Est GFR (MDRD) Non-Af 27 L, BUN/Creatinine Ratio 14.1, Glucose 104, Calcium 8.5, Magnesium 1.8 08/22/20 05:54: c-ANCA Antibody Pending, p-ANCA Antibody Pending, Complement C3 Pending Current Medications Acetaminophen (Acetaminophen 325 Mg Tablet) 650 mg PO Q6H PRN PRN PRN Reason: Pain Score 1-10/Temp > 100.7 F Last Admin: 08/20/20 11:12 Dose: 650 mg Documented by: Albuterol Sulfate (Albuterol 2.5 Mg/3 Ml Vial.Neb.) 2.5 mg INHALATION Q2H PRN PRN PRN Reason: SOB/Wheezing Last Admin: 08/22/20 10:41 Dose: 2.5 mg Documented by: Albuterol/Ipratropium (Ipratropium/Albuterol Sulfate 3 Ml Ampul.Neb) 3 ml INHALATION Q6HWA.RT [facility] Last Admin: 08/22/20 07:07 Dose: 3 ml Documented by: Allopurinol (Allopurinol 300 Mg Tablet) 300 mg PO DAILYCM [facility] Last Admin: 08/22/20 09:21 Dose: 300 mg Documented by: Carvedilol (Carvedilol 6.25 Mg Tablet) 6.25 mg PO BID [facility] Last Admin: 08/22/20 09:23 Dose: Not Given Documented by: Clopidogrel Bisulfate (Clopidogrel Bisulfate 75 Mg Tablet) 75 mg PO DAILY [facility] Last Admin: 08/22/20 09:22 Dose: 75 mg Documented by: Heparin Sodium (Porcine) (Heparin Injection (Vial) 5,000 Unit/Ml Vial) 5,000 unit SC Q8 [facility] Last Admin: 08/22/20 05:41 Dose: 5,000 unit Documented by: Heparin Sodium (Porcine) (Heparin 10,000 Units/10 Ml Vial) 0 - 10,000 units IV PRN PRN PRN Reason: DIALYSIS CATH Ceftriaxone Sodium (Rocephin) 1 gm in 50 mls @ 100 mls/hr IV Q24@2200 [facility] Last Infusion: 08/21/20 23:00 Dose: Infused Documented by: Sodium Chloride () 250 mls @ 15 mls/hr IV .[id number] PRN PRN Reason: Saline Flush Sodium Chloride () 250 mls @ 15 mls/hr IV .[id number] PRN PRN Reason: Additional IVPB Infusion Insulin Human Lispro (Insulin Lispro 100 Unit/Ml Insuln.Pen) 0 unit SC Q6 [facility]; Protocol Last Admin: 08/22/20 12:13 Dose: Not Given Documented by: Levothyroxine Sodium (Levothyroxine 25 Mcg Tablet) 25 mcg PO DAILY@0600 [facility] Last Admin: 08/22/20 05:39 Dose: 25 mcg Documented by: Midodrine (Midodrine Hcl 5 Mg Tablet) 10 mg PO TID [facility] Last Admin: 08/22/20 05:39 Dose: 10 mg Documented by: Nicotine (Nicotine 14 Mg Patch) 14 mg TD DAILY [facility] Last Admin: 08/22/20 09:22 Dose: 14 mg Documented by: Nitroglycerin (Nitroglycerin (Inpatient Use) 0.4 Mg Tab.Subl) 0.4 mg SUBLINGUAL Q5M PRN PRN Reason: CHEST PAIN Ondansetron HCl (Ondansetron 4 Mg/2 Ml Vial) 4 mg IV Q8H PRN PRN PRN Reason: NAUSEA/VOMITING Last Admin: 08/21/20 22:22 Dose: 4 mg Documented by: Oxycodone HCl (Oxycodone 5 Mg Tablet) 10 mg PO Q6H PRN PRN PRN Reason: Pain Score 6-10 Last Admin: 08/22/20 12:11 Dose: 10 mg Documented by: Pantoprazole Sodium (Pantoprazole Sodium 40 Mg Tablet) 40 mg PO DAILY [facility] Last Admin: 08/22/20 09:22 Dose: 40 mg Documented by: Promethazine HCl (Promethazine 25 Mg/Ml Syringe) 6.25 mg IV Q6H PRN PRN PRN Reason: NAUSEA/VOMITING Last Admin: 08/22/20 00:36 Dose: 6.25 mg Documented by: Rosuvastatin Calcium (Rosuvastatin 20 Mg Tablet) 40 mg PO DAILY@2200 [facility] Last Admin: 08/21/20 22:13 Dose: Not Given Documented by: Sodium Chloride (0.9% Saline Lock 10 Ml Syringe) 10 - 40 ml IV UD PRN PRN Reason: SALINE FLUSH Last Admin: 08/21/20 18:07 Dose: 10 ml Documented by: Tamsulosin HCl (Tamsulosin Hcl 0.4 Mg Capsule) 0.4 mg PO DAILY@1730 [facility] Last Admin: 08/21/20 17:01 Dose: 0.4 mg Documented by: Inpatient E&M: [id number] [facility]
--- NOTE | 2020-08-22 11:27 | PHA.DC.MC ---
Pharmacy Service has performed discharge medication reconciliation and counseling for this patient. 1. MIDODRINE 10MG PO TID 2. TAMSULOSIN 0.4MG PO DAILY The patient's discharge medication list was reviewed for discrepancies and discrepancies were resolved. Home Medications Pantoprazole Sodium [Protonix] 40 mg PO DAILY 11/15/17 Rosuvastatin Calcium [Crestor] 40 mg PO DAILY 06/16/18 Clopidogrel Bisulfate [Plavix] 75 mg PO DAILY 09/01/18 Allopurinol 300 mg PO DAILY 09/20/18 Nitroglycerin 0.4 mg SL PRN PRN 12/01/18 Albuterol Inhaler [Ventolin Hfa] 2 puff INHALATION Q4H PRN PRN 02/24/19 Oxycodone HCl/Acetaminophen [Oxycodon-Acetaminophen 7.5-325] 1 tab PO Q6H PRN 05/02/19 aspirin 325 mg tablet,delayed release 325 mg PO DAILY 10/05/19 Carvedilol [Coreg (Beta Sina)] 6.25 mg PO BID 10/19/19 Levothyroxine [Synthroid] 25 mcg PO DAILY@0600 10/19/19 umeclidinium 62.5 mcg-vilanterol 25 mcg/actuation powdr for inhalation 1 inh INHALATION Q24H #1 ea 07/19/20 Midodrine HCl [Proamatine] 10 mg PO TID #90 tab 08/22/20 Tamsulosin HCl [Flomax] 0.4 mg PO DAILY@1730 #30 cap 08/22/20 The patient was counseled on the following discharge medications and changes in medications for homegoing were reviewed. The Reason for Use, instructions for use, and potential side effects were reviewed for all new medications. The patient's questions regarding all of their medications were answered. The patient was able to verbally demonstrate an understanding of their discharge medications. Patient was counseled by shift mgrBen.
--- NOTE | 2020-08-22 12:00 | DIALYSIS ---
1015: Changed right chest wall dialysis catheter dressing. Pt had been picking at the dressing trying to remove it. Pt was instructed to leave the dressing in place. Reminded him that the staff at the chronic dialysis facility will change the dressing at his next dialysis treatment. Report was given to LEONIE Hodge.
--- NOTE | 2020-08-22 12:59 | PCM.PN.REN ---
Subjective: no new complaints - Physical Exam Vitals/I&O's: Vital Signs Temp Pulse Resp BP Pulse Ox 97.9 F 90 16 106/66 97 08/22/20 09:24 08/22/20 10:41 08/22/20 10:41 08/22/20 09:24 08/22/20 11:11 Oxygen Flow Rate (L/min) 2 Oxygen Delivery Method Room Air Weight: 88 kg Body Mass Index (BMI) 30.2 Finger Stick Blood Glucose 195 Intake and Output for Last 24 Hours 08/20/20 08/21/20 08/22/20 23:59 23:59 23:59 Intake Total 770 / 770 1400 / 1800 820 / 820 Balance 770 / 770 1400 / 1800 820 / 820 General: Alert, Oriented x3, Cooperative HEENT: Atraumatic, PERRLA, EOMI, Normocephalic Neck: Supple, No JVD, Negative Carotid Bruits Lungs: Clear to auscultation, Normal air movement Cardiovascular: Regular rate, No murmurs Abdomen: Bowel Sounds Present, Soft, Non Tender Extremities: No edema, Capillary Refill Less than 3 Seconds Skin: No rashes, No breakdown Musculoskeletal: No Tenderness to Palpation of Joints or Extremities Neurological: Cranial nerves II-XII grossly intact Psych/Mental Status: Normal Affect, Appropriate Microbiology Past 72 Hours 08/16/20 17:49 Blood Culture (Wb) - Right Wrist Blood Culture - Final No growth in 5 days. 08/16/20 17:45 Blood Culture (Wb) - Left Wrist Blood Culture - Final No growth in 5 days. Laboratory Results 08/21/20 17:03: POC Glucose 120 H 08/22/20 01:00: POC Glucose 118 H 08/22/20 05:54: WBC 5.4, RBC 4.21 L, Hgb 13.0, Hct 39.0 L, MCV 92.6, MCH 30.9, MCHC 33.3, RDW Std Deviation 48.5 H, RDW Coeff of Maggie 14.6, Plt Count 135 L, MPV 10.0 08/22/20 05:54: Sodium 133 L, Potassium 3.2 L, Chloride 98, Carbon Dioxide 27.0, Anion Gap 8, BUN 35 H, Creatinine 2.49 H, Estim Creat Clear Calc 28.00, Est GFR (MDRD) Af Amer 33 L, Est GFR (MDRD) Non-Af 27 L, BUN/Creatinine Ratio 14.1, Glucose 104, Calcium 8.5, Magnesium 1.8 08/22/20 05:54: c-ANCA Antibody Pending, p-ANCA Antibody Pending, Complement C3 Pending Current Medications Acetaminophen (Acetaminophen 325 Mg Tablet) 650 mg PO Q6H PRN PRN PRN Reason: Pain Score 1-10/Temp > 100.7 F Last Admin: 08/20/20 11:12 Dose: 650 mg Documented by: Albuterol Sulfate (Albuterol 2.5 Mg/3 Ml Vial.Neb.) 2.5 mg INHALATION Q2H PRN PRN PRN Reason: SOB/Wheezing Last Admin: 08/22/20 10:41 Dose: 2.5 mg Documented by: Albuterol/Ipratropium (Ipratropium/Albuterol Sulfate 3 Ml Ampul.Neb) 3 ml INHALATION Q6HWA.RT [facility] Last Admin: 08/22/20 07:07 Dose: 3 ml Documented by: Allopurinol (Allopurinol 300 Mg Tablet) 300 mg PO DAILYCM [facility] Last Admin: 08/22/20 09:21 Dose: 300 mg Documented by: Carvedilol (Carvedilol 6.25 Mg Tablet) 6.25 mg PO BID [facility] Last Admin: 08/22/20 09:23 Dose: Not Given Documented by: Clopidogrel Bisulfate (Clopidogrel Bisulfate 75 Mg Tablet) 75 mg PO DAILY [facility] Last Admin: 08/22/20 09:22 Dose: 75 mg Documented by: Heparin Sodium (Porcine) (Heparin Injection (Vial) 5,000 Unit/Ml Vial) 5,000 unit SC Q8 [facility] Last Admin: 08/22/20 05:41 Dose: 5,000 unit Documented by: Heparin Sodium (Porcine) (Heparin 10,000 Units/10 Ml Vial) 0 - 10,000 units IV PRN PRN PRN Reason: DIALYSIS CATH Ceftriaxone Sodium (Rocephin) 1 gm in 50 mls @ 100 mls/hr IV Q24@2200 [facility] Last Infusion: 08/21/20 23:00 Dose: Infused Documented by: Sodium Chloride () 250 mls @ 15 mls/hr IV .[id number] PRN PRN Reason: Saline Flush Sodium Chloride () 250 mls @ 15 mls/hr IV .[id number] PRN PRN Reason: Additional IVPB Infusion Insulin Human Lispro (Insulin Lispro 100 Unit/Ml Insuln.Pen) 0 unit SC Q6 [facility]; Protocol Last Admin: 08/22/20 12:13 Dose: Not Given Documented by: Levothyroxine Sodium (Levothyroxine 25 Mcg Tablet) 25 mcg PO DAILY@0600 [facility] Last Admin: 08/22/20 05:39 Dose: 25 mcg Documented by: Midodrine (Midodrine Hcl 5 Mg Tablet) 10 mg PO TID [facility] Last Admin: 08/22/20 05:39 Dose: 10 mg Documented by: Nicotine (Nicotine 14 Mg Patch) 14 mg TD DAILY [facility] Last Admin: 08/22/20 09:22 Dose: 14 mg Documented by: Nitroglycerin (Nitroglycerin (Inpatient Use) 0.4 Mg Tab.Subl) 0.4 mg SUBLINGUAL Q5M PRN PRN Reason: CHEST PAIN Ondansetron HCl (Ondansetron 4 Mg/2 Ml Vial) 4 mg IV Q8H PRN PRN PRN Reason: NAUSEA/VOMITING Last Admin: 08/21/20 22:22 Dose: 4 mg Documented by: Oxycodone HCl (Oxycodone 5 Mg Tablet) 10 mg PO Q6H PRN PRN PRN Reason: Pain Score 6-10 Last Admin: 08/22/20 12:11 Dose: 10 mg Documented by: Pantoprazole Sodium (Pantoprazole Sodium 40 Mg Tablet) 40 mg PO DAILY [facility] Last Admin: 08/22/20 09:22 Dose: 40 mg Documented by: Promethazine HCl (Promethazine 25 Mg/Ml Syringe) 6.25 mg IV Q6H PRN PRN PRN Reason: NAUSEA/VOMITING Last Admin: 08/22/20 00:36 Dose: 6.25 mg Documented by: Rosuvastatin Calcium (Rosuvastatin 20 Mg Tablet) 40 mg PO DAILY@2200 [facility] Last Admin: 08/21/20 22:13 Dose: Not Given Documented by: Sodium Chloride (0.9% Saline Lock 10 Ml Syringe) 10 - 40 ml IV UD PRN PRN Reason: SALINE FLUSH Last Admin: 08/21/20 18:07 Dose: 10 ml Documented by: Tamsulosin HCl (Tamsulosin Hcl 0.4 Mg Capsule) 0.4 mg PO DAILY@1730 [facility] Last Admin: 08/21/20 17:01 Dose: 0.4 mg Documented by: Medical Necessity - Tobacco Use Smoking Status: Current every day smoker Tobacco Use: Cigarettes Assessment/Plan 1- JILLIAN on CKD stage 3. baseline Cr 1.5-1.6 mg/dl HD started 08/19 due to uremic symptoms. seen on HD today HD access R IJ TC renal US is ok UA shows some protein and blood 2- hypotensive likely from low EF Better. monitor BP with UF 3- CHF low EF. seems compensating. UF as [facility] here on jul 17 for instent thrombosis. had PCI and stent placement by interventional cardiology. cr at the time of dc was 1.3 or so. patient says he has been voiding ok since then. he was taking Ibuprofen upto 16 a day and fifth of vodka a day. says he has been taking NSAIDs for a long time. doubt contrast nephropathy given delayed presentation but cholesterol emboli is possible. no peripheral signs of cholesterol emboli. urine eos pending but not many WBC on UA pending ANCA and C3 also for now will reach out to Dr Levy if biopsy is needed ok to dc from my end if dialysis chair time is confirmed
--- NOTE | 2020-08-22 16:00 | NURSING ---
supervisory examiner from [facility] called and spoke with this RN. Confirmed financial approval for patient and verified chair time. Notified patient of acceptance.
[2020-08-22 20:54] LABS: Eosinophil Ct. Urine No Eosinophils Seen % (.)
[2020-08-23 02:11] LABS: Bedside Glucose 149 mg/dL (70-110)
--- NOTE | 2020-08-23 09:40 | CASEMGMT ---
This RN CM had messages from [facility] admissions and Id[facility] from last pm which stated pt was financially clear and Micaela had called PCU and pt was discharged last pm. This RN CM will complete f/u phone with pt later today. Doug HADLEY CM
--- NOTE | 2020-08-23 10:40 | CASEMGMT ---
DENYS received a voice mail from Nafisa with [facility]. She was asking about d/c plans for patient. DENYS called her back and let her know he was discharged last night. No additional services were recommended. DENYS also let her know his dialysis schedule. DENYS told her SW will fax d/c instructions. She thanked DENYS for the information. DENYS faxed d/c instructions and med list. Alyssa BABIN
--- NOTE | 2020-08-23 11:24 | CASEMGMT ---
RN CM Discharge F/U Phone Call LACE: 16 Strata: 4 Discharge date: 08/22/20 Call date: 08/23/20 Call time: 1125 Admission dx: Recurrent hypoglycemia Pt states has been doing 'pretty good' since discharge. Pt states no questions regarding discharge instructions/medications at this time. The schedule letter from [facility] was never faxed prior to discharge. Pt is reminded of OP dialysis time of 0630 with start date 08/24/20 at 0630 but will need to arrive prior to 0600, voices understanding. Pt was made aware previously that he would need a ride to 1st OP treatment and pt was short with this RN CM and stated no problem with having someone take him and now pt states he has no ride and would like number to [facility] to see if they can help set up a ride. Pt states has no family that can drop him off/pick him up tomorrow and declines for this RN CM to help with this at this time. This RN CM advised pt that he does have transportation through his insurance but pt states 'it's too late for that.' Pt voices no suggestions for [facility] at this time. Pt voices no further questions/concerns/needs at this time. SStaten RN CM
[2020-08-23 20:07] LABS: Cytoplasmic Ab (C-ANCA) <1:20 titer (Neg:<1:20)
[2020-08-23 21:20] LABS: Complement C3 152 mg/dL (82-167); Perinuclear Ab (P-ANCA) <1:20 titer (Neg:<1:20)
== END 2020-08-22 16:32 | disposition home or self-care (01) | DRG 673 ==
LOC: ED 16:38 → PCU 19:29
PROVIDERS: Anesthesiology; Hospitalist; Internal Medicine Nephrology; Surgery; Admitting Provider Internal Medicine; Emergency Provider Emergency Medicine; PCP Family Medicine; Visit Provider Internal Medicine
PROC: 0JH63XZ Insertion of Tunneled Vascular Access Device into Chest Subcutaneous Tissue and Fascia, Percutaneous Approach (ICD-10-PCS; principal; 2020-08-19 07:30)
DX: N17.0 Acute kidney failure with tubular necrosis (principal); J18.9 Pneumonia, unspecified organism; I50.23 Acute on chronic systolic (congestive) heart failure; J96.01 Acute respiratory failure with hypoxia; I13.2 Hypertensive heart and chronic kidney disease with heart failure and with stage 5 chronic kidney disease, or end stage renal disease; I24.8 Other forms of acute ischemic heart disease; I25.810 Atherosclerosis of coronary artery bypass graft(s) without angina pectoris; E87.1 Hypo-osmolality and hyponatremia; E11.65 Type 2 diabetes mellitus with hyperglycemia; E11.22 Type 2 diabetes mellitus with diabetic chronic kidney disease; N18.6 End stage renal disease; I25.5 Ischemic cardiomyopathy; E11.649 Type 2 diabetes mellitus with hypoglycemia without coma; T39.395A Adverse effect of other nonsteroidal anti-inflammatory drugs [NSAID], initial encounter; E78.5 Hyperlipidemia, unspecified; K21.9 Gastro-esophageal reflux disease without esophagitis; F17.210 Nicotine dependence, cigarettes, uncomplicated; Z95.5 Presence of coronary angioplasty implant and graft; Z95.810 Presence of automatic (implantable) cardiac defibrillator; Z79.82 Long term (current) use of aspirin; Z79.02 Long term (current) use of antithrombotics/antiplatelets; Z79.890 Hormone replacement therapy; Z80.1 Family history of malignant neoplasm of trachea, bronchus and lung; Z79.899 Other long term (current) drug therapy; Z82.49 Family history of ischemic heart disease and other diseases of the circulatory system; Z82.5 Family history of asthma and other chronic lower respiratory diseases; Z99.2 Dependence on renal dialysis; G47.33 Obstructive sleep apnea (adult) (pediatric); R33.9 Retention of urine, unspecified; M54.9 Dorsalgia, unspecified; G89.29 Other chronic pain; Z68.33 Body mass index [BMI] 33.0-33.9, adult; E03.9 Hypothyroidism, unspecified; E87.6 Hypokalemia; T38.3X5A Adverse effect of insulin and oral hypoglycemic [antidiabetic] drugs, initial encounter; E66.01 Morbid (severe) obesity due to excess calories
CPT/HCPCS: 36415; 70450; 71045; 71046; 73630; 76770; 77001; 80048; 80053; 80076; 81001; 82962; 83036; 83605; 83735; 83880; 84443; 84484; 85025; 85027; 85610; 85730; 86160; 86256; 86705; 86706; 87040; 87205; 87340; 87426; 87449; 87633; 87635; 90937; 93005; 94640; 94667; 94668; 97110; 97162; 97166; 97530; 97535; 97802; 99251; 99285; 99406; J7030; J7050; A4216; C1750; G0257; G0463; J1940; J2405; J3486; U0002

== ENCOUNTER 2020-09-07 07:29 | Emergency (ER) | payer MEDICARE, MEDICAID, SELFPAY ==
[2020-08-19 05:00] VITALS: BMI 30.2
[2020-09-07] VITALS (10 sets, daily range): BP systolic 105–136; BP diastolic 66–87; PULSE 84–101; RESP 18–30; TEMP 36.3–37.1; O2SAT 99–100; BMI 30.7
--- NOTE | 2020-09-07 07:44 | EKG12_ITS ---
Test Reason : SOB Blood Pressure : / mmHG Vent. Rate : 093 BPM Atrial Rate : 093 BPM P-R Int : 152 ms QRS Dur : 126 ms QT Int : 406 ms P-R-T Axes : 068 000 155 degrees QTc Int : 504 ms Sinus rhythm with occasional Premature ventricular complexes Non-specific intra-ventricular conduction block Nonspecific T wave abnormality Abnormal ECG Confirmed by SKYLER LUNDBERG, [place] ([id number]), associate editor COREY BRYANT ([id number]) on 09/10/2020 11:38:37 A M Referred By: ESPERANZA Confirmed By:SHAKIRA HOLLAND MD
--- NOTE | 2020-09-07 07:45 | ED.VISSUMM ---
- ER Visit Summary Date of Service: 09/07/20 Chief Complaint: Shortness of breath History of Present Illness: The patient is a 70 M who presents with shortness of breath that began today while he was at dialysis. Patient states it began rather suddenly. Patient states he did use albuterol which helps some. Patient admits to a cough. Patient states he was coughing up some sputum but does not know the color. Patient denies any fevers or chills. Patient denies any chest pain. Patient denies any sore throat or rhinorrhea. Patient admits to headache and neck pain. Patient describes these as throbbing and pressure. Patient denies any paresthesias or weakness. Patient denies any visual changes. Patient states he only uses home oxygen at night. Physical Examination: Vital signs are stable except for mild tachypnea of 30. Patient is afebrile. Patient is in no acute distress. Oral mucosa is pink and moist. Neck is supple. Trachea is midline. There is no JVD. Heart was regular rate and rhythm. Lungs show diffuse expiratory wheezing. There is good respiratory effort. There are no retractions. Abdomen is soft. Bowel sounds are normal. There is no tenderness. Cranial nerves II through XII are intact. There are no focal motor or sensory deficits noted. Extremities are intact. There is no calf tenderness or edema. Test Results: EKG was obtained. On my interpretation, there is a normal sinus rhythm with a rate of 93 with occasional PVCs noted. QRS axis is normal. CT and QT intervals are normal. There are nonspecific ST-T wave changes. There is an incomplete left bundle branch block. This was unchanged compared to previous EKG dated 08/19/2020. CBC shows hemoglobin 12.5 and hematocrit 38.2. Platelets were slightly low at 86. Comprehensive metabolic profile was essentially within normal limits. Troponin was normal. Lactate was normal. CT scan of the brain was obtained. There is a new chronic left frontal subdural hematoma with minimal mass-effect. Portable 1 view chest x-ray was obtained. On my interpretation, lung bui are clear. There is normal cardiac silhouette. Bony thorax is normal. There is no acute process noted. Radiologist also interpreted the x-ray and agrees. Emergency Department Course and Treatment: Patient was given IV morphine and Zofran initially. Patient was given repeat doses of morphine. Patient was advised of his findings. Upon further questioning, the patient states that his told him that he fell approximately 1 week ago and hit his head. Patient requested to be transferred to [facility]. Case was discussed with the transfer line and emergency physician there. The patient will be transferred to the emergency department there. Patient understood and was agreeable with the plan. All questions were answered. Disposition: Transfer to [facility] Impression: 1. Subdural hematoma Critical care time: 30 minutes. This was time spent obtaining history, performing physical examination, documenting, interpreting test results, discussion with consultants, and determining disposition. This note was generated with [employer] dictation software. It may contain incorrect words, spelling, and punctuation that were not noted in review of the chart prior to signing ED Disposition - Plan for ED Patient: Disposition: [facility] Diagnosis: Subdural hematoma Referrals: Juan De La Vega III, MD [Primary Care Provider] -
[2020-09-07] MEDS: Ipratropium/Albuterol Sulfate 3 ML AMPUL.NEB INHALATION (08:04)
[2020-09-07 08:08] LABS: Absolute Lymphocyte Count 1.06 X10^3/uL (0.83-4.51); Absolute Neutrophil Count 4.7 X10^3/uL (2.0-7.7); Basophil# 0.02 X10^3/uL; Basophil% 0.3 % (0-1); Eosinophil# 0.11 X10^3/uL; Eosinophils% 1.7 % (0-5); Hematocrit 38.2 % (40-54); Hemoglobin 12.5 g/dL (13.0-16.5); Lymphocyte # 1.06 X10^3/ul (4.0); Lymphocyte % 16.3 % (19-41); Mean Corp Hgb Conc 32.7 g/dL (32-36); Mean Corpuscular Volume 94.8 fL (80-94); Mean Platelet Vol. 10.2 fl (6.2-12.0); Monocyte# 0.56 X10^3/uL; Monocyte% 8.6 % (0-10); NRBC Flagged by Analyzer 0 % (0-5); Neutrophil # 4.72 X10^3/uL (2.7-7.7); Neutrophil % 72.8 % (47-70); POSITIVE COUNT YES; Platelet Count 86 K/mm3 (150-450); RBC Distribution Width CV 14.6 % (11.6-14.6); RBC Distribution Width SD 50.6 fl (35.1-43.9); Red Blood Count 4.03 M/mm3 (4.6-6.2); White Blood Count 6.5 K/mm3 (4.4-11.0)
[2020-09-07 08:10] LABS: Differential Indicated SCAN CRITERIA MET
[2020-09-07 08:26] LABS: AST(SGOT) 14 U/L (15-37); Alanine Aminotransfer ALT/SGPT 15 U/L (16-61); Albumin, Serum 3.5 g/dL (3.2-5.0); Alkaline Phosphatase 102 U/L (45-117); Anion Gap 7 (5-15); BUN 12 mg/dL (7-18); BUN/Creat Ratio 11.7 RATIO (10-20); Calcium,Total 8.7 mg/dL (8.5-10.1); Chloride 103 mmol/L (98-107); Creatinine, Serum 1.03 mg/dL (0.70-1.30); EST Glomerular Filtration Rate 76 mL/min (>60); Est Glom Filt Rate - Afr Amer 92 mL/min (>60); Estimated Creatinine Clearance 65.49 ml/min; Globulin 3.6 g/dL (2.2-4.2); Glucose 126 mg/dL (74-106); Lactic Acid 1.6 mmol/L (0.4-1.9); Potassium 3.4 mmol/L (3.5-5.1); Protein, Total 7.1 g/dL (6.4-8.2); Sodium Level 139 mmol/L (136-145)
[2020-09-07 08:53] LABS: Platelet Estimate MOD DEC (ADEQ)
--- NOTE | 2020-09-07 08:53 | RAD_ITS ---
STUDY: X-RAY CHEST REASON FOR EXAM: Male, 70 years old. DYSPNEA, COUGH, HEADACHE TECHNIQUE: Single AP portable view of the chest. COMPARISON: Comparison is made with prior study dated 08/19/2020. FINDINGS: EKG electrodes are seen. A right-sided double-lumen catheter is seen with the tip at the junction of the superior vena cava and right atrium. Mild degree of vascular congestion. There is no demonstrated pleural abnormality. Sternal cerclage wires and vascular clips are present from a prior sternotomy and coronary artery bypass graft procedure (CABG). A left-sided dual-chamber pacemaker is seen. Normal mediastinum and serjio. Normal visualized pulmonary arteries. There is atherosclerotic calcification of the aortic arch with tortuosity. There are diffuse degenerative changes of the visualized thoracic spine. Normal visualized ribs, clavicles, and shoulders. There is no demonstrated abnormality of the visualized soft tissue structures of the upper abdomen. RAD/Chest 1 View (Portable) IMPRESSION: Mild degree of vascular congestion. Electronically Signed: Arcenio Leary MD at 9:26 EST , Service support ,
--- NOTE | 2020-09-07 09:05 | CT_ITS ---
STUDY: CT BRAIN WITHOUT CONTRAST REASON FOR EXAM: Male, 70 years old. HEADACHE, INCREASED SOB RADIATION DOSAGE (If Supplied By Facility): CTDIvol = ( 44.99 ) mGy, DLP = ( 829.85 ) mGycm TECHNIQUE: Transaxial CT imaging of the brain was performed without administration of intravenous contrast material. Individualized dose optimization techniques were used for this CT. COMPARISON: Comparison is made with prior study dated 08/16/2020. FINDINGS: Normal soft tissue structures. Normal calvarium. There now is evidence of the small chronic subdural hematoma overlying the left frontal parietal occipital lobes with a maximum transverse dimension of 9.3 mm. No significant shift of the midline is seen. There is mild cerebral atrophy with widening of the extra-axial spaces and ventricular dilatation. There are areas of decreased attenuation within the white matter tracts of the supratentorial brain, consistent with microvascular disease changes. Stable area of encephalomalacia in the posterior aspect of the left parietal occipital lobe. Normal basal ganglia and thalami. Normal brainstem. Normal cerebellum. There is no intracranial hemorrhage. There are no findings of an acute ischemic infarction. Atherosclerotic calcification of the vertebral arteries and cavernous portions of the internal carotid arteries bilaterally. Mucosal thickening of the ethmoid sinuses. CT/Brain/Head without Contrast IMPRESSION: Chronic involutional changes of the brain. Since prior study, there is evidence of a new small chronic subdural hematoma overlying the left frontoparietal occipital lobes with minimal mass effect. No significant shift of the midline is seen. Electronically Signed: Arcenio Leary MD at 9:40 EST , Service support ,
[2020-09-07] MEDS: Morphine 4 MG/ML Syringe IV ×2 (09:30→12:21)
--- NOTE | 2020-09-07 11:43 | NURSING ---
DR BOLTON TALKING TO NORIS SAINI
[2020-09-07] MEDS: Albuterol 2.5 MG/3 ML VIAL.NEB. INHALATION (12:34)
--- NOTE | 2020-09-07 12:53 | ED.RN ---
[facility] ambulance 60 min eta
== END 2020-09-07 14:36 | disposition short-term general hospital (02) ==
PROVIDERS: Emergency Provider Emergency Medicine; PCP Family Medicine
DX: S06.5X9A Traumatic subdural hemorrhage with loss of consciousness of unspecified duration, initial encounter (principal); Z99.2 Dependence on renal dialysis; I44.7 Left bundle-branch block, unspecified
CPT/HCPCS: 70450; 71045; 80053; 83605; 84484; 85025; 87040; 87426; 93005; 94640; 96374; 96376; 99285; A4216

== ENCOUNTER 2020-09-11 12:40 | Emergency (ER) | payer MEDICARE, MEDICAID, SELFPAY ==
[2020-09-07 07:32] VITALS: BMI 30.7
[2020-09-11 12:41] VITALS: BP 116/79; PULSE 90; RESP 15; TEMP 36.3; O2SAT 97; BMI 29.0
--- NOTE | 2020-09-11 13:02 | CT_ITS ---
STUDY: CT BRAIN WITHOUT CONTRAST REASON FOR EXAM: Male, 70 years old. Ongoing headache, recent subdural hematoma. Hx diabetes, hypertension, chronic renal failure. RADIATION DOSAGE (If Supplied By Facility): CTDIvol = ( 44.99 ) mGy, DLP = ( 815.79 ) mGycm TECHNIQUE: Transaxial CT imaging of the brain was performed without administration of intravenous contrast material. Individualized dose optimization techniques were used for this CT. COMPARISON: Comparison is made with prior examination dated 09/07/2020. FINDINGS: Normal soft tissue structures. Normal calvarium. Once again, there is evidence of a small chronic subdural hematoma overlying the left frontoparietal occipital lobes. This is essentially unchanged. No significant shift of the midline structures are seen. There is mild cerebral atrophy with widening of the extra-axial spaces and ventricular dilatation. There is evidence of a stable encephalomalacia in the posterior left parietal-occipital lobe. Normal basal ganglia and thalami. Normal brainstem. Normal cerebellum. There is no intracranial hemorrhage. There are no findings of an acute ischemic infarction. Mucosal thickening of the ethmoid sinuses as well as the inferior medial portion of the left maxillary sinus. CT/Brain/Head without Contrast IMPRESSION: Chronic involutional changes of the brain. Stable small chronic left subdural hematoma. Electronically Signed: Arcenio Leary MD at 14:27 EST , Service support ,
--- NOTE | 2020-09-11 13:03 | ED.DCSUM_ITS ---
- ER Visit Summary Date of Service: 09/11/20 Chief Complaint: Headache History of Present Illness: The patient is a 70 M who presents with a headache that became worse today. Patient states the pain has been constant throughout the day today. Patient states the pain feels like a pressure. Patient states it is over the right frontal area. Patient states the pain does radiate into his neck. Patient admits to nausea but denies any vomiting. Patient admits to photophobia and blurred vision. Patient was seen here recently and was diagnosed with a subdural hematoma. Patient was transferred to [facility] at that time. Patient states the neurosurgeon they wanted to do surgery but his cardiac function would not allow it. Patient states his headaches were improving and he was discharged home. Patient is no longer taking his Plavix. Physical Examination: Vital signs are stable. Patient is afebrile. Patient is in no acute distress. Oral mucosa is pink and moist. Neck is supple. Trachea is midline. There is no JVD noted. Heart was regular rate and rhythm. Lungs are clear and equal bilaterally. Abdomen is soft. Bowel sounds are normal. There is no tenderness. There is no rebound or guarding noted. Skin is warm dry. Cranial nerves II through XII are intact. There are no focal motor or sensory deficits noted. Extremities are intact. There is no calf tenderness or edema. Test Results: CT scan of the brain was obtained. There is a chronic subdural hematoma on the right. This was unchanged compared to previous CT scan. This was interpreted by the radiologist and reviewed by myself. Emergency Department Course and Treatment: Patient was given a dose of morphine here. Patient had no relief with this. Patient was given a dose of Dilaudid. Patient states his headache has resolved. Patient was instructed to continue his Percocet as previously prescribed. Patient was instructed to follow-up with his primary care physician in 5 to 7 days. Patient was instructed return if worse in any way. Patient understood and was agreeable with the plan. All questions were answered. Disposition: Discharge home Impression: 1. Subdural hematoma This note was generated with [employer] software. It may contain incorrect words, spelling, and punctuation that were not noted in review of the chart prior to signing ED Disposition - Plan for ED Patient: Disposition: Home or Assisted Living Diagnosis: Subdural hematoma Instructions: ED Head Injury (Adult) Referrals: Juan De La Vega III, MD [Primary Care Provider] - 5-7 Days
[2020-09-11] MEDS: Morphine 4 MG/ML Syringe IV ×2 (13:38→14:36)
[2020-09-11 15:10] VITALS: BP 91/60; PULSE 82; RESP 22; O2SAT 90
[2020-09-11] MEDS: HYDROmorphone 0.5 MG/0.5 ML SYRINGE IV (15:17)
[2020-09-11 15:19] VITALS: BP 93/62; PULSE 80; RESP 18; O2SAT 86; O2SAT 98
[2020-09-11 15:54] VITALS: BP 104/68; PULSE 85; RESP 20; O2SAT 98
== END 2020-09-11 16:02 | disposition home or self-care (01) ==
PROVIDERS: Emergency Provider Emergency Medicine; PCP Family Medicine
DX: I62.00 Nontraumatic subdural hemorrhage, unspecified (principal); N18.9 Chronic kidney disease, unspecified
CPT/HCPCS: 70450; 96374; 96375; 96376; 99285; A4216

== ENCOUNTER 2020-09-20 16:37 | Emergency (ER) | payer MEDICARE, MEDICAID, SELFPAY ==
[2020-09-20 16:38] VITALS: BP 116/69; PULSE 101; RESP 36; TEMP 36.1; O2SAT 100; BMI 28.1
[2020-09-20 16:45] VITALS: O2SAT 98
--- NOTE | 2020-09-20 17:00 | EKG12_ITS ---
Test Reason : Blood Pressure : / mmHG Vent. Rate : 089 BPM Atrial Rate : 089 BPM P-R Int : 142 ms QRS Dur : 118 ms QT Int : 406 ms P-R-T Axes : 061 004 183 degrees QTc Int : 493 ms Normal sinus rhythm Incomplete left bundle branch block Nonspecific ST and T wave abnormality Prolonged QT Abnormal ECG Confirmed by SKYLER LUNDBERG, [place] ([id number]), image editor CORYE BRYANT ([id number]) on 09/24/2020 9:57:11 AM Referred By: MARVIN Confirmed By:SHAKIRA HOLLAND MD
--- NOTE | 2020-09-20 17:02 | ED.DCSUM_ITS ---
History of Present Illness Chief Complaint: Shortness of Breath Informant: Patient Narrative: 70-year-old male with multiple medical problems including coronary artery disease CHF COPD. Tells me that for the past several days he has been increasingly short of breath. He notes new leg swelling. He notes cough that is nonproductive. He notes chest pain that is worse with touch cough and movement. States this feels like his congestive heart failure. Patient was admitted in July with pneumonia and CHF and recurrent hypoglycemia. He was seen in the emergency department in the middle of August when he was found to have a subdural hematoma from a fall. He tells me he was transferred to [place] and they adjusted his meds and they took him off of dialysis and he does no longer have a dialysis port. He states that he came back to the emergency department several days later and never got his medication list back in so he does not know what meds he supposed to be taking. He does tell me that he has lost 15 to 20 pounds over the past several weeks. - Past Medical History (1) Smoking greater than 30 pack years Status: Chronic Comment: Appropriate for low-dose CT lung screening due January 2021 (2) ARIADNA (obstructive sleep apnea) Status: Chronic (3) COPD (chronic obstructive pulmonary disease) Status: Chronic Comment: FEV1 64% of predicted (4) Gout Status: Chronic (5) Chronic back pain Status: Chronic (6) Presence of automatic implantable cardioverter-defibrillator Status: Chronic (7) H/O coronary artery bypass surgery Status: Chronic Comment: HUMPHREY-LAD, SVG-D1, SVG-OM (8) Chronic renal failure, stage 3 (moderate) Status: Chronic (9) Chronic systolic (congestive) heart failure Status: Chronic (10) Ischemic cardiomyopathy Status: Chronic Comment: 25% ejection fraction in November 2016 (11) Gastroesophageal reflux disease Status: Chronic (12) Hyperlipidemia Status: Chronic (13) Type 2 diabetes mellitus Status: Chronic Past Medical History - Allergies and Home Meds Allergies/Adverse Reactions: Allergies chlorpromazine HCl [From Thorazine] Allergy (Severe, Verified 09/20/20 16:42) Hives PER PATIENT tramadol HCl [From Ultram] Allergy (Severe, Verified 09/20/20 16:42) Hives PER PATIENT codeine Allergy (Intermediate, Verified 09/20/20 16:42) Hives promethazine [From Phenergan] Allergy (Verified 09/20/20 16:42) confusion atorvastatin Adverse Reaction (Intermediate, Verified 09/20/20 16:42) LEG PAIN/CRAMPS LEG PAIN/CRAMPS cyclobenzaprine [From Flexeril] Adverse Reaction (Verified 09/20/20 16:42) Upset Stomach metformin Adverse Reaction (Verified 09/20/20 16:42) Upset Stomach naproxen Adverse Reaction (Verified 09/20/20 16:42) Upset Stomach Primary Care Physician: Juan De La Vega III, MD [Primary Care Provider] - Surgical History: angioplasty - stents x 10, coronary bypass surgery, - - AICD placement, back surgery x 2, hernia repair, PCI. Lives: Spouse/ Significant Other Smoking Status: Current every day smoker Drugs: None - Family History Maternal Family History: Family History (Last Reviewed 07/16/20 @ 15:[address] Ravin Ortega DO) Brother CAD (coronary artery disease) Myocardial infarction Sudden cardiac Mother Cancer Hypertension Father Cancer COPD (chronic obstructive pulmonary disease) Family History: Reports: Cancer - lung, Hypertension, - - Patient notes a paternal family history of chronic lung disease, lung cancer with history of tobacco use. Paternal Family History: Family History (Last Reviewed 07/16/20 @ 15:[address] Ravin Ortega DO) Brother CAD (coronary artery disease) Myocardial infarction Sudden cardiac Mother Cancer Hypertension Father Cancer COPD (chronic obstructive pulmonary disease) Family History: Reports: Cancer, Heart Disease Review of Systems General: Denies: Chills, Fever, Sweats Eyes: Denies: Visual changes - bilaterally, Diplopia ENT: Denies: Rhinorrhea, Sore throat Cardiovascular: Reports: Chest pain - Worse with cough and touch and movement. Denies: Palpitations Respiratory: Reports: Dyspnea, Cough. Denies: Dyspnea on exertion Gastrointestinal: Denies: Abdominal pain, Nausea, Vomiting, Diarrhea, Melena, Hematochezia Genitourinary: Denies: Dysuria, Hematuria, Frequency Musculoskeletal: Reports: Swelling. Denies: Back pain, Extremity Pain Skin: Denies: Rash, Wounds Neurological: Denies: Headache, Weakness, Numbness Physical Exam Vital Signs/Narrative: Vital Signs Temp Pulse Resp BP Pulse Ox 09/20/20 16:38 97.0 F L 101 H 36 H 116/69 100 Inital Vital Signs reviewed: Yes General: Well nourished, Well developed, No Acute Distress Head: Normocephalic, Atraumatic Eyes: Perrl, EOMI ENT: Moist mucous membranes, No rhinorrhea Neck: Supple, Nontender Cardiovascular: Regular rate, Regular rhythm, No murmurs Respiratory: No distress, Rales, Chest tenderness Abdomen: Soft, Nontender, Nondistended, Normal bowel sounds Back: Nontender, Normal Inspection Extremities: Nontender, Edema - 1+ edema bilaterally Skin: Normal color, No rash Neurological: Alert, Oriented x3, Cranial nerves II-XII grossly intact, Normal Strength, Normal Sensation Psychological: Normal affect, Normal Mood Diagnostic/Tx/Re-eval Clinical Impression(s) from Imaging Studies Chest X-Ray 09/20/20 17:20 IMPRESSION: 1. Interval removal of the right jugular hemodialysis catheter is seen in the ureter study. 2. Persistent and interstitial lung changes. Vascular congestion versus chronic change. Electronically Signed: Dawit Robins DO at 17:32 EST Tel [phone], Service support , Chest CTA 09/20/20 18:06 IMPRESSION: 1. No evidence of pulmonary embolus. 2. No aortic dissection or aneurysm. 3. Evidence of CABG procedure and cardiac pacemaker. 4. Emphysematous changes in lungs with old granulomatous disease. There is no acute pulmonary process. 5. Minimal calcified pleural plaque posteriorly at the right hemithorax. 6. Degenerative changes of the thoracic spine. 7. Small hiatal hernia Electronically Signed: Dawit Robins DO at 19:00 EST Tel [phone], Service support , Laboratory Last Values WBC 6.0 K/mm3 (4.4-11.0) 09/20/20 17:10 RBC 4.16 M/mm3 (4.6-6.2) L 09/20/20 17:10 Hgb 12.5 g/dL (13.0-16.5) L 09/20/20 17:10 Hct 39.8 % (40-54) L 09/20/20 17:10 MCV 95.7 fL (80-94) H 09/20/20 17:10 MCH 30.0 pg (27.0-32.0) 09/20/20 17:10 MCHC 31.4 g/dL (32-36) L 09/20/20 17:10 RDW Std Deviation 49.6 fl (35.1-43.9) H 09/20/20 17:10 RDW Coeff of Maggie 14.2 % (11.6-14.6) 09/20/20 17:10 Plt Count 214 K/mm3 (150-450) 09/20/20 17:10 MPV 9.9 fl (6.2-12.0) 09/20/20 17:10 Immature Gran % (Auto) 0.300 % (0.0-0.9) 09/20/20 17:10 Neut % (Auto) 58.2 % (47-70) 09/20/20 17:10 Lymph % (Auto) 27.1 % (19-41) 09/20/20 17:10 Nuckolls % (Auto) 11.4 % (0-10) H 09/20/20 17:10 Eos % (Auto) 2.3 % (0-5) 09/20/20 17:10 Baso % (Auto) 0.7 % (0-1) 09/20/20 17:10 Absolute Neuts (auto) 3.5 X10^3/uL (2.0-7.7) 09/20/20 17:10 Absolute Lymphs (auto) 1.62 X10^3/uL (0.83-4.51) 09/20/20 17:10 Nucleated RBC % 0 % (0-5) 09/20/20 17:10 PT 13.3 SECONDS (11.7-14.9) 09/20/20 17:10 INR 1.1 09/20/20 17:10 APTT 33.1 Seconds (24.1-36.2) 09/20/20 17:10 Sodium 141 mmol/L (136-145) 09/20/20 17:10 Potassium 4.0 mmol/L (3.5-5.1) 09/20/20 17:10 Chloride 109 mmol/L (98-107) H 09/20/20 17:10 Carbon Dioxide 28.0 mmol/L (21.0-32.0) 09/20/20 17:10 Anion Gap 4 (5-15) L 09/20/20 17:10 BUN 16 mg/dL (7-18) 09/20/20 17:10 Creatinine 1.17 mg/dL (0.70-1.30) 09/20/20 17:10 Estim Creat Clear Calc 57.65 ml/min 09/20/20 17:10 Est GFR (MDRD) Af Amer 79 mL/min (>60) 09/20/20 17:10 Est GFR (MDRD) Non-Af 66 mL/min (>60) 09/20/20 17:10 BUN/Creatinine Ratio 13.7 RATIO (10-20) 09/20/20 17:10 Glucose 101 mg/dL (74-106) 09/20/20 17:10 Calcium 8.7 mg/dL (8.5-10.1) 09/20/20 17:10 Total Bilirubin 0.30 mg/dL (0.20-1.00) 09/20/20 17:10 AST 9 U/L (15-37) L 09/20/20 17:10 ALT 19 U/L (16-61) 09/20/20 17:10 Alkaline Phosphatase 101 U/L (45-117) 09/20/20 17:10 Troponin I 0.018 ng/mL (<0.045) 09/20/20 17:10 B-Natriuretic Peptide 404.8 pg/mL (0-100) H 09/20/20 17:10 Total Protein 7.1 g/dL (6.4-8.2) 09/20/20 17:10 Albumin 3.6 g/dL (3.2-5.0) 09/20/20 17:10 Globulin 3.5 g/dL (2.2-4.2) 09/20/20 17:10 Albumin/Globulin Ratio 1.0 RATIO (0.9-2.4) 09/20/20 17:10 - EKG Initial EKG Interpretation: Sinus Rhythm - EKG demonstrates a normal sinus rhythm at a rate of 89 with incomplete left bundle branch block without ectopy or concerning features of ACS. - Medical Decision Making My interpretation of the single view portable chest x-ray is mild CHF. His beta natruretic peptide is about 400. Creatinine is normal white count is normal. CTA of the chest negative for pulmonary embolism infiltrate. Covid test is negative. Patient's vital signs have been very normal. When I am not in the room his respiratory rate is around 18 on the monitor. When I am in the room his respiratory rate increases to around 30. His sats are 96 to 98%. I think it is very reasonable that the patient be discharged home on twice daily Lasix for the next 5 days and have him follow-up with primary care. He is comfortable with this plan. Return if worsening or concerns. ED Disposition - Plan for ED Patient: Disposition: Home or Assisted Living Diagnosis: Ischemic cardiomyopathy, Systolic heart failure, Dyspnea Instructions: ED Heart Failure, Congestive (CHF) Prescriptions: Furosemide [Lasix] 40 mg PO BID #10 tab Prescription Printed Referrals: Juan De La Vega III, MD [Primary Care Provider] - 3-5 Days
--- NOTE | 2020-09-20 17:20 | RAD_ITS ---
STUDY: X-RAY CHEST REASON FOR EXAM: Male, 70 years old. Dyspnea. TECHNIQUE: Single AP portable view of the chest. COMPARISON: 09/07/2020. FINDINGS: Absence of the right jugular hemodialysis catheter is seen on the earlier study. The lungs are well-expanded. There is persistent interstitial coarsening unchanged from prior study. There is no demonstrated pleural abnormality. Sternal cerclage wires are present from a prior sternotomy. The heart is normal in size. Stable cardiac pacemaker. The mediastinum and serjio appear unchanged. Normal visualized pulmonary arteries. There is atherosclerotic calcification of the aortic arch with tortuosity. The thoracic spine is obscured by the mediastinum. Normal visualized ribs, clavicles, and shoulders. There is no demonstrated abnormality of the visualized soft tissue structures of the upper abdomen. RAD/Chest 1 View (Portable) IMPRESSION: 1. Interval removal of the right jugular hemodialysis catheter is seen in the ureter study. 2. Persistent and interstitial lung changes. Vascular congestion versus chronic change. Electronically Signed: Dawit Robins DO at 17:32 EST Tel [phone], Service support ,
[2020-09-20 17:27] LABS: Absolute Lymphocyte Count 1.62 X10^3/uL (0.83-4.51); Absolute Neutrophil Count 3.5 X10^3/uL (2.0-7.7); Basophil# 0.04 X10^3/uL; Basophil% 0.7 % (0-1); Eosinophil# 0.14 X10^3/uL; Eosinophils% 2.3 % (0-5); Hematocrit 39.8 % (40-54); Hemoglobin 12.5 g/dL (13.0-16.5); Lymphocyte # 1.62 X10^3/ul (4.0); Lymphocyte % 27.1 % (19-41); Mean Corp Hgb Conc 31.4 g/dL (32-36); Mean Corpuscular Volume 95.7 fL (80-94); Mean Platelet Vol. 9.9 fl (6.2-12.0); Monocyte# 0.68 X10^3/uL; Monocyte% 11.4 % (0-10); NRBC Flagged by Analyzer 0 % (0-5); Neutrophil # 3.48 X10^3/uL (2.7-7.7); Neutrophil % 58.2 % (47-70); Platelet Count 214 K/mm3 (150-450); RBC Distribution Width CV 14.2 % (11.6-14.6); RBC Distribution Width SD 49.6 fl (35.1-43.9); Red Blood Count 4.16 M/mm3 (4.6-6.2)
[2020-09-20 17:33] LABS: International Normalized Ratio 1.1; Prothrombin Time (Protime)PT. 13.3 SECONDS (11.7-14.9)
[2020-09-20 17:34] LABS: Partial Thromboplast Time 33.1 Seconds (24.1-36.2)
[2020-09-20 17:40] LABS: BNP,B-Type NATRIURETIC PEPTIDE 404.8 pg/mL (0-100)
[2020-09-20 17:43] LABS: AST(SGOT) 9 U/L (15-37); Alanine Aminotransfer ALT/SGPT 19 U/L (16-61); Albumin, Serum 3.6 g/dL (3.2-5.0); Alkaline Phosphatase 101 U/L (45-117); Anion Gap 4 (5-15); BUN 16 mg/dL (7-18); BUN/Creat Ratio 13.7 RATIO (10-20); Calcium,Total 8.7 mg/dL (8.5-10.1); Chloride 109 mmol/L (98-107); Creatinine, Serum 1.17 mg/dL (0.70-1.30); EST Glomerular Filtration Rate 66 mL/min (>60); Est Glom Filt Rate - Afr Amer 79 mL/min (>60); Estimated Creatinine Clearance 57.65 ml/min; Globulin 3.5 g/dL (2.2-4.2); Glucose 101 mg/dL (74-106); Protein, Total 7.1 g/dL (6.4-8.2); Sodium Level 141 mmol/L (136-145)
--- NOTE | 2020-09-20 18:06 | CT_ITS ---
STUDY: CTA CHEST REASON FOR EXAM: Male, 70 years old. Dyspnea. Shortness of breath for several days. Swelling of the legs. History of COPD, emphysema. Diabetes and prior CABG procedure. RADIATION DOSAGE (If Supplied By Facility): CTDIvol = ( 13.17 ) mGy, DLP = ( 519.76 ) mGycm TECHNIQUE: The examination was performed with the intravenous administration of IV 100mL Isovue-370. Post-processing of the angiographic images was performed, with multiplanar reformation and 3D reconstruction. Individualized dose optimization techniques were used for this CT. COMPARISON: None. FINDINGS: Normal enhancement of the main pulmonary artery and right and left pulmonary arteries. Normal enhancement of the bilateral peripheral pulmonary arteries. There is no demonstrated pulmonary embolism. Mild atherosclerotic changes of the thoracic aorta without aneurysm. There is no demonstrated aortic dissection. Sternal cerclage wires and vascular clips are present from a prior sternotomy and coronary artery bypass graft procedure (CABG). The heart is normal in size. Normal pericardium. Pacing leads are seen in the right heart. Nonspecific subcentimeter mediastinal lymphadenopathy. Normal hilar regions. Normal visualized trachea and bronchi. The lungs are hyper expanded, with flattening of the hemidiaphragms. There are small bullae in the right lung apex. There is mild emphysematous changes lungs with no focal mass or infiltrate. There is a pleural-based calcified granuloma measuring 4 mm in the periphery of the right upper lobe just above the horizontal fissure. Minimal calcified pleural plaque posteriorly in the right hemithorax. Pacer generator is seen in the soft tissues left chest wall. There is evidence of median sternotomy. Mild degenerative changes of the thoracic spine. Small hiatal hernia. Otherwise normal visualized upper abdomen. CT/CTA Chest W/WO Contrast IMPRESSION: 1. No evidence of pulmonary embolus. 2. No aortic dissection or aneurysm. 3. Evidence of CABG procedure and cardiac pacemaker. 4. Emphysematous changes in lungs with old granulomatous disease. There is no acute pulmonary process. 5. Minimal calcified pleural plaque posteriorly at the right hemithorax. 6. Degenerative changes of the thoracic spine. 7. Small hiatal hernia Electronically Signed: Dawit Robins DO at 19:00 EST Tel [phone], Service support ,
[2020-09-20 18:09] VITALS: BP 115/75; PULSE 92; RESP 18; TEMP 36.9; O2SAT 95
[2020-09-20] MEDS: Ondansetron ODT 4 MG Tablet PO (18:13)
[2020-09-20 18:53] VITALS: BP 114/80; PULSE 90; RESP 17; TEMP 36.6; O2SAT 95
[2020-09-20 18:55] VITALS: O2SAT 95
[2020-09-20 19:49] VITALS: BP 118/69; PULSE 84; RESP 24; TEMP 36.4; O2SAT 98
== END 2020-09-20 19:54 | disposition home or self-care (01) ==
PROVIDERS: Emergency Provider Emergency Medicine; PCP Family Medicine
DX: I25.5 Ischemic cardiomyopathy (principal); I50.22 Chronic systolic (congestive) heart failure; R06.00 Dyspnea, unspecified; I44.7 Left bundle-branch block, unspecified; E78.5 Hyperlipidemia, unspecified; J44.9 Chronic obstructive pulmonary disease, unspecified; K21.9 Gastro-esophageal reflux disease without esophagitis; E11.22 Type 2 diabetes mellitus with diabetic chronic kidney disease; N18.30 Chronic kidney disease, stage 3 unspecified; I25.10 Atherosclerotic heart disease of native coronary artery without angina pectoris; G47.33 Obstructive sleep apnea (adult) (pediatric); K44.9 Diaphragmatic hernia without obstruction or gangrene; F17.200 Nicotine dependence, unspecified, uncomplicated; Z80.1 Family history of malignant neoplasm of trachea, bronchus and lung; Z82.49 Family history of ischemic heart disease and other diseases of the circulatory system; Z88.6 Allergy status to analgesic agent; Z88.8 Allergy status to other drugs, medicaments and biological substances; Z95.1 Presence of aortocoronary bypass graft; Z95.810 Presence of automatic (implantable) cardiac defibrillator; Z99.2 Dependence on renal dialysis
CPT/HCPCS: 71045; 71275; 80053; 83880; 84484; 85025; 85610; 85730; 87426; 93005; 99285; Q9967; A4216

== ENCOUNTER 2020-09-21 20:23 | Inpatient (IN) | payer MEDICARE, MEDICAID, SELFPAY ==
[2020-09-20 16:38] VITALS: BMI 28.1
[2020-09-21] VITALS (8 sets, daily range): BP systolic 112–133; BP diastolic 78–89; PULSE 110–120; RESP 16–34; TEMP 36.6; O2SAT 87–98; BMI 29.7; BMI 28.2; BMI 28.3
--- NOTE | 2020-09-21 20:34 | ED.RN ---
CALLED FOR EKG PER RN REQUEST, PULLED OLD EKGS FOR
--- NOTE | 2020-09-21 20:37 | EKG12_ITS ---
Test Reason : CP Blood Pressure : / mmHG Vent. Rate : 123 BPM Atrial Rate : 123 BPM P-R Int : 148 ms QRS Dur : 132 ms QT Int : 432 ms P-R-T Axes : 063 044 092 degrees QTc Int : 618 ms Sinus tachycardia Left bundle branch block Abnormal ECG Confirmed by BERYL LUNDBERG, MICHELLE ([id number]), communications editor COREY BRYANT ([id number]) on 09/24/2020 12:15:29 PM Referred By: HOANG Confirmed By:MICHELLE CORDOBA MD
--- NOTE | 2020-09-21 20:40 | ED.VISSUMM ---
- ER Visit Summary Date of Service: 09/21/20 Chief Complaint: Chest pain History of Present Illness: The patient is a 70 M who presents with chest pain that began today. Patient states it is gradually getting worse. Patient describes it as a squeezing. Patient states nothing makes it better and nothing makes it worse. Patient admits to some nausea and vomiting. Patient admits to some diaphoresis with the pain. Patient also admits to shortness of breath and cough. Patient states he did have an episode of acid reflux earlier today. Patient also admits to some lightheadedness. Patient has a history of coronary artery disease as well as chronic kidney disease. Patient is a smoker. Physical Examination: Vital signs are stable except for tachycardia of 120 and a mild tachypnea of 33. Patient is afebrile. Patient is in no acute distress. Oral mucosa is pink and moist. Neck is supple. Trachea is midline. There is no JVD noted. Heart was regular rate and rhythm. Lungs are clear and equal bilaterally. Abdomen is soft. Bowel sounds are normal. There is no tenderness. There is no rebound or guarding noted. Skin is warm dry. Cranial nerves II through XII are intact. There are no focal motor or sensory deficits noted. Extremities are intact. There is no calf tenderness or edema. Test Results: EKG was obtained. On my interpretation, there is a sinus tachycardia with a rate of 123. There is a left bundle branch block pattern noted. There are no acute ST or T wave changes. This was essentially unchanged compared to previous EKG dated 09/07/2020. Portable 1 view chest x-ray was obtained. On my interpretation, lung bui are clear. There is normal cardiac silhouette. Bony thorax is normal. There is no acute process noted. Radiologist also interpreted the x-ray and agrees. CBC shows slight leukocytosis of 11.5. Creatinine was 1.69. PT with INR and PTT were within normal limits. Troponin was slightly elevated at 0.098. Covid rapid antigen was obtained and was negative. Emergency Department Course and Treatment: Patient was given aspirin and Zofran here. Patient was feeling better on reevaluation. Given the slight elevation of his troponin, I recommended admission to the hospital. Disposition: Admit to hospital Impression: 1. Chest pain 2. Elevated troponin This note was generated with [employer] software. It may contain incorrect words, spelling, and punctuation that were not noted in review of the chart prior to signing ED Disposition - Plan for ED Patient: Disposition: Acute Care Hospital [facility] Diagnosis: Chest pain Referrals: Juan De La Vega III, MD [Primary Care Provider] -
[2020-09-21 20:47] LABS: Absolute Lymphocyte Count 0.87 X10^3/uL (0.83-4.51); Basophil# 0.03 X10^3/uL; Basophil% 0.3 % (0-1); Eosinophils% 0.9 % (0-5); Hemoglobin 13.7 g/dL (13.0-16.5); Lymphocyte # 0.87 X10^3/ul (4.0); Lymphocyte % 7.6 % (19-41); Mean Corp Hgb Conc 31.9 g/dL (32-36); Mean Corpuscular Hgb 30.4 pg (27.0-32.0); Mean Corpuscular Volume 95.3 fL (80-94); Monocyte% 4.3 % (0-10); NRBC Flagged by Analyzer 0 % (0-5); Neutrophil # 9.97 X10^3/uL (2.7-7.7); Neutrophil % 86.5 % (47-70); Platelet Count 242 K/mm3 (150-450); RBC Distribution Width CV 14.1 % (11.6-14.6); RBC Distribution Width SD 49.3 fl (35.1-43.9); Red Blood Count 4.51 M/mm3 (4.6-6.2); White Blood Count 11.5 K/mm3 (4.4-11.0)
[2020-09-21] MEDS: Ondansetron 4 MG/2 ML Vial IV ×2 (20:48→23:13)
--- NOTE | 2020-09-21 20:50 | RAD_ITS ---
STUDY: X-RAY CHEST REASON FOR EXAM: Male, 70 years old. Chest pain TECHNIQUE: 1 view COMPARISON: Prior chest radiograph of 09/20/2020 FINDINGS: The lung bui are well expanded without new consolidation, focal atelectasis or substantial pleural effusion. Calcified granuloma of the right lower lung zone. Stable prominent interstitial markings. Stable cardiac size status post prior midline sternotomy. A right atrial pacemaker lead in the right ventricular defibrillator lead remain in good position. A left coronary stent is present. Normal mediastinum and serjio. Normal visualized pulmonary arteries. Normal visualized aortic arch and descending thoracic aorta. Normal visualized thoracic spine. Normal visualized ribs, clavicles, and shoulders. There is no demonstrated abnormality of the visualized soft tissue structures of the upper abdomen. RAD/Chest 1 View (Portable) IMPRESSION: No acute pulmonary changes. Stable interstitial prominence without new consolidation, focal atelectasis or a substantial pleural effusion. Stable normal cardiac size. Status post prior midline sternotomy with ICD in good position. Electronically Signed: Rupinder Levine MD at 21:36 EST , Service support ,
[2020-09-21 21:04] LABS: Prothrombin Time (Protime)PT. 13.2 SECONDS (11.7-14.9)
[2020-09-21 21:05] LABS: Partial Thromboplast Time 33.3 Seconds (24.1-36.2)
[2020-09-21 21:13] LABS: ALB/GLOB Ratio 1.1 RATIO (0.9-2.4); AST(SGOT) 21 U/L (15-37); Alanine Aminotransfer ALT/SGPT 19 U/L (16-61); Albumin, Serum 4.1 g/dL (3.2-5.0); Alkaline Phosphatase 96 U/L (45-117); Anion Gap 10 (5-15); BUN 20 mg/dL (7-18); BUN/Creat Ratio 11.8 RATIO (10-20); Calcium,Total 9.3 mg/dL (8.5-10.1); Chloride 101 mmol/L (98-107); Creatinine, Serum 1.69 mg/dL (0.70-1.30); EST Glomerular Filtration Rate 43 mL/min (>60); Est Glom Filt Rate - Afr Amer 52 mL/min (>60); Estimated Creatinine Clearance 39.91 ml/min; Globulin 3.8 g/dL (2.2-4.2); Glucose 146 mg/dL (74-106); Protein, Total 7.9 g/dL (6.4-8.2); Sodium Level 136 mmol/L (136-145)
--- NOTE | 2020-09-21 22:37 | HP.PCM_ITS ---
Problem List (1) Cardiac enzymes elevated Status: Acute (2) Chest pain Status: Acute Qualifiers: Chest pain type: unspecified Qualified Code(s): R07.9 - Chest pain, unspecified (3) ARIADNA (obstructive sleep apnea) Status: Chronic (4) COPD (chronic obstructive pulmonary disease) Status: Chronic Qualifiers: Chronic bronchitis type: unspecified Comment: FEV1 64% of predicted (5) Nicotine dependence Status: Chronic Qualifiers: Substance use status: unspecified nicotine-induced disorder (6) Presence of automatic implantable cardioverter-defibrillator Status: Chronic (7) H/O coronary artery bypass surgery Status: Chronic Comment: HUMPHREY-LAD, SVG-D1, SVG-OM (8) Chronic renal failure, stage 3 (moderate) Status: Chronic Qualifiers: Chronic kidney disease stage 3 subtype: unspecified whether 3a or 3b Qualified Code(s): N18.30 - Chronic kidney disease, stage 3 unspecified (9) Chronic systolic (congestive) heart failure Status: Chronic (10) Stented coronary artery Status: Chronic Comment: has had 7 stents as of 06/15/17 (11) Ischemic cardiomyopathy Status: Chronic Comment: 25% ejection fraction in November 2016 (12) V-tach Status: Chronic Comment: has an AICD (13) Benign essential hypertension Status: Chronic (14) Gastroesophageal reflux disease Status: Chronic Qualifiers: Esophagitis presence: esophagitis presence not specified Qualified Code(s): K21.9 - Gastro-esophageal reflux disease without esophagitis (15) Hyperlipidemia Status: Chronic Qualifiers: Hyperlipidemia type: unspecified Qualified Code(s): E78.5 - Hyperlipidemia, unspecified (16) Type 2 diabetes mellitus Status: Chronic Qualifiers: Diabetes mellitus manager intermediate insulin use: without manager intermediate use Diabetes mellitus complication status: with other specified complication Qualified Code(s): E11.69 - Type 2 diabetes mellitus with other specified complication (17) CAD (coronary artery disease) Status: Chronic Qualifiers: Coronary Disease-Associated Artery/Lesion type: unspecified vessel or lesion type [place] vs. transplanted heart: [place] heart History of Present Illness Date of Admission: 09/21/20 Chief Complaint: Chest pain The patient is a 70 y/o M w/ PMHx: ESRD on HD, Chronic CHF/Ischemic cardiomyopathy, Hx VT s/p AICD, HTN, HLD, Chronic COPD/Emphysema/Chronic Bronchitis with chronic hypoxic respiratory failure with ongoing tobacco use, GERD, Diabetes mellitus type II, CAD s/p CABG x 3 and PCI x 10, Chronic back pain s/p back surgery x 2 with chronic L foot drop, Hx Intracranial hemorrhage recently with subdural hematoma following fall onto ice off of his dual antiplatelet therapy since 09/07/2020, Hx EtOH abuse sober x 26 years, recently evaluated in the ED on 09/20/2020 with at that time complained of dyspnea as well as lower extremity swelling and nonproductive cough with discharge to home on increased Lasix regimen of 40 mg p.o. twice daily for suspected mild CHF exacerbation who now re-presents to the [facility] ED on 09/21/20 with lessened dyspnea however worsened chest discomfort now described as a tightness and a squeezing also sensation of a crushing in his midsternal region with associated worsened dyspnea, nausea, diaphoresis and radiation to his left upper extremity with lightheadedness and dizziness prompting ED presentation, rated at its worst 6-8 out of 10 in severity, currently 0 out of 10 upon ED evaluation. Does note that the discomfort was worse with exertion. CTPA day prior with no evidence of PE. Records requested from [facility] from 09/07/2020 presentation with history of mechanical fall onto ice, hitting head with subdural hematoma at that time as patient has been off of his dual antiplatelet therapy aspirin and Plavix since then with upcoming neurosurgery appointment for potential resumption per discussion with patient. Work-up in the ED included T 97.9, HR 120, BP 116/78, RR 33, 87% on RA-->94% on 4L NC, CBC w/ WBC 11.5, Hgb 13.7, Plts 242 with L shift, unremarkable coags, CMP with BUN/Cr 20/1.69, glucose 146, trop 0.098 otherwise no marked appearing, rapid sars COVID antigen negative, CXR with stable interstital promience without new acute findings, evidence prior midline sternotomy with ICD in place, EKG with ST with L BBB similar to prior without acute evidence of ischemia. In the ED patient administered zofran, morphine. ASA therapy ordered but deferred given SDH history. Past Medical History Past Medical History (Chronic Problems): Chronic Problems (Last Reviewed 07/16/20 @ 15:[address] Ravin Ortega, DO) Smoking greater than 30 pack years (Chronic) Appropriate for low-dose CT lung screening due January 2021 History of left heart catheterization (Chronic 07/17/20) LEFT MAIN: Angiographically normal;LEFT ANTERIOR DESCENDING ARTERY: PROX LAD: Moderate calcification MID LAD: is occluded with the mid to distal vessel filling late, DIAGONAL 1: Proximal - is occluded with the distal vessel filling late and faintly; CIRCUMFLEX ARTERY: Mild luminal irregularities, MID CIRC: 50 % Stenosis; RIGHT CORONARY ARTERY: not evaluated (previously documented as chronically occluded); GRAFTS: HUMPHREY graft to the Mid LAD previously documented as small, atretic, and occluded; Saphenous Vein graft to the 1st Diagonal previously; documented as occluded; Saphenous Vein graft to the 1st OM previously placed stent is patent with subsequent mid 90 % stenosis and distal, pre bifurcation, hazy 75 % stenosis; Saphenous Vein graft to the RCA previously documented as occluded - per cardiac cath 07/17/20 - LVEF: by LV gram 15-20 %; [place] Multivessel CAD; Occluded [place] mid LAD. Occluded [place] proximal RCA. Occluded SVG to DIAG. Occluded SVG to RCA. Occluded HUMPHREY to LAD. Severe 85% stenosis in last remaining vessel of SVG to LCX with widely patent SVG stents. Severe LV dysfunction. Referred for immediate PCI: Will tx to [facility] for high risk PCI to last remaining vessel of SVG to OM. 06/29/19 per DANA @ [facility] Hypoxia, sleep related (Chronic) ARIADNA (obstructive sleep apnea) (Chronic) COPD (chronic obstructive pulmonary disease) (Chronic) FEV1 64% of predicted Obesity (BMI 30.0-34.9) (Chronic) Nicotine dependence (Chronic) Gout (Chronic) Degenerative cervical disc (Chronic) Chronic back pain (Chronic) Presence of automatic implantable cardioverter-defibrillator (Chronic) H/O coronary artery bypass surgery (Chronic ~2008) HUMPHREY-LAD, SVG-D1, SVG-OM Chronic renal failure, stage 3 (moderate) (Chronic) Chronic systolic (congestive) heart failure (Chronic) Stented coronary artery (Chronic ~12/2016) has had 7 stents as of 06/15/17 Ischemic cardiomyopathy (Chronic) 25% ejection fraction in November 2016 V-tach (Chronic) has an AICD Benign essential hypertension (Chronic) Gastroesophageal reflux disease (Chronic) Hyperlipidemia (Chronic) Type 2 diabetes mellitus (Chronic) Morbid obesity (Chronic) CAD (coronary artery disease) (Chronic) Medical History: Medical History (Last Reviewed 07/16/20 @ 15:[address] Ravin Ortega, DO) Nicotine dependence (Chronic) F17.200 Gout (Chronic) M10.9 Degenerative cervical disc (Chronic) M50.30 Chronic back pain (Chronic) M54.9, G89.29 Chronic renal failure, stage 3 (moderate) (Chronic) N18.3 Chronic systolic (congestive) heart failure (Chronic) I50.22 Ischemic cardiomyopathy (Chronic) I25.5 25% ejection fraction in November 2016 V-tach (Chronic) I47.2 has an AICD Benign essential hypertension (Chronic) I10 Gastroesophageal reflux disease (Chronic) K21.9 Hyperlipidemia (Chronic) E78.5 Type 2 diabetes mellitus (Chronic) E11.9 Morbid obesity (Chronic) E66.01 CAD (coronary artery disease) (Chronic) I25.10 Tubular adenoma of colon (Inactive) D12.6 Allergies chlorpromazine HCl [From Thorazine] Allergy (Severe, Verified 09/21/20 20:51) Hives PER PATIENT tramadol HCl [From Ultram] Allergy (Severe, Verified 09/21/20 20:51) Hives PER PATIENT codeine Allergy (Intermediate, Verified 09/21/20 20:51) Hives promethazine [From Phenergan] Allergy (Verified 09/21/20 20:51) confusion atorvastatin Adverse Reaction (Intermediate, Verified 09/21/20 20:51) LEG PAIN/CRAMPS LEG PAIN/CRAMPS cyclobenzaprine [From Flexeril] Adverse Reaction (Verified 09/21/20 20:51) Upset Stomach metformin Adverse Reaction (Verified 09/21/20 20:51) Upset Stomach naproxen Adverse Reaction (Verified 09/21/20 20:51) Upset Stomach Home Medications: Ambulatory Orders Medication Instructions Recorded Albuterol Aerosols [Ventolin 2.5 mg INHALATION Q4H PRN PRN 09/11/20 Aerosols] Allopurinol [Zyloprim] 300 mg PO DAILY 09/11/20 Carvedilol [Coreg] 6.25 mg PO BID 09/11/20 Glimepiride [Amaryl] 1 mg PO DAILY 09/11/20 Ipratropium/Albuterol Sulfate 3 ml IH Q6H PRN 09/11/20 [Iprat-Albut 0.5-3(2.5) mg/3 ml] Levetiracetam [Keppra] 500 mg PO DAILY 09/11/20 Levothyroxine [Synthroid] 25 mcg PO DAILY 09/11/20 Nicotine [Nicoderm Cq (PBKC)] 14 mg TRANSDERM. DAILY 09/11/20 Nitroglycerin [Nitrostat] 0.4 mg SL Q5M PRN 09/11/20 Oxycodone HCl/Acetaminophen 1 ea PO Q6H PRN 09/11/20 [Endocet 7.5-325 mg Tablet] Pantoprazole Sodium [Protonix] 40 mg PO DAILY 09/11/20 Rosuvastatin Calcium [Crestor] 40 mg PO QHS 09/11/20 Sacubitril/Valsartan 24/26 mg 1 ea PO BID 09/11/20 [Entresto 24 mg-26 mg Tablet] Umeclidinium Brm/Vilanterol Tr 1 ea IH DAILY 09/11/20 [Anoro Ellipta 62.5-25 Mcg INH] Furosemide [Lasix] 40 mg PO BID #10 tab 09/20/20 Surgical History: Surgical History (Last Updated 07/17/20 @ 13:59 by Nafisa Coleman) History of left heart catheterization (Chronic) Onset Date: 07/17/20 Z98.890 LEFT MAIN: Angiographically normal;LEFT ANTERIOR DESCENDING ARTERY: PROX LAD: Moderate calcification MID LAD: is occluded with the mid to distal vessel filling late, DIAGONAL 1: Proximal - is occluded with the distal vessel filling late and faintly; CIRCUMFLEX ARTERY: Mild luminal irregularities, MID CIRC: 50 % Stenosis; RIGHT CORONARY ARTERY: not evaluated (previously documented as chronically occluded); GRAFTS: HUMPHREY graft to the Mid LAD previously documented as small, atretic, and occluded; Saphenous Vein graft to the 1st Diagonal previously; documented as occluded; Saphenous Vein graft to the 1st OM previously placed stent is patent with subsequent mid 90 % stenosis and distal, pre bifurcation, hazy 75 % stenosis; Saphenous Vein graft to the RCA previously documented as occluded - per cardiac cath 07/17/20 - LVEF: by LV gram 15-20 %; [place] Multivessel CAD; Occluded [place] mid LAD. Occluded [place] proximal RCA. Occluded SVG to DIAG. Occluded SVG to RCA. Occluded HUMPHREY to LAD. Severe 85% stenosis in last remaining vessel of SVG to LCX with widely patent SVG stents. Severe LV dysfunction. Referred for immediate PCI: Will tx to [facility] for high risk PCI to last remaining vessel of SVG to OM. 06/29/19 per DANA @ [facility] Presence of automatic implantable cardioverter-defibrillator (Chronic) Z95.810 H/O coronary artery bypass surgery (Chronic) Onset Date: ~2008 Z95.1 HUMPHREY-LAD, SVG-D1, SVG-OM Stented coronary artery (Chronic) Onset Date: ~12/2016 has had 7 stents as of 06/15/17 Hx of hernia repair (Inactive) Z98.890, Z87.19 Previous back surgery (Inactive) Z98.890 Surgical History: angioplasty - stents x 10, coronary bypass surgery, - - AICD placement, back surgery x 2, hernia repair, PCI. Psychiatric History: No pertinent psych hx Lives: Spouse/ Significant Other Smoking Status: Current every day smoker - Patient currently smoking 1 to 5 cigarettes daily but is also currently using a 21 mg nicotine patch. Discussed at length and patient is amenable to starting to transition down again to 14 mg patch. Tobacco Use: Cigarettes Alcohol: Sober - Sober x 26 years. Drugs: None - *Family History Maternal Family History: Family History (Last Reviewed 07/16/20 @ 15:[address] Ravin Ortega DO) Brother CAD (coronary artery disease) Myocardial infarction Sudden cardiac Mother Cancer Hypertension Father Cancer COPD (chronic obstructive pulmonary disease) History Items: Cancer - lung, Hypertension, - - Patient notes a paternal family history of chronic lung disease, lung cancer with history of tobacco use. Paternal Family History: Family History (Last Reviewed 07/16/20 @ 15:[address] Ravin Ortega DO) Brother CAD (coronary artery disease) Myocardial infarction Sudden cardiac Mother Cancer Hypertension Father Cancer COPD (chronic obstructive pulmonary disease) History Items: Cancer, Heart Disease Review of Systems Constitutional: Reports: Malaise, Weakness, Fatigue. Denies: Chills, Fever, Weight Change HEENT: Reports: Head Aches. Denies: Sinus Congestion, Sinus Drainage Cardiovascular: Reports: Chest Pain, Chest Pressure, Chest Tightness, Light Headedness. Denies: Orthopnea, Palpitations, Syncope Respiratory: Reports: Shortness of Breath, Shortness of breath upon exertion. Denies: Cough, Shortness of breath at rest, Sputum production Gastrointestinal: Reports: Nausea. Denies: Abdominal Pain, Vomiting Genitourinary: Denies: Dysuria Musculoskeletal: Reports: Arm Pain, Back Pain, Joint Pain. Denies: Joint Tende rness Skin: Denies: Rash, Wounds Neurological: Denies: Numbness, Tingling, Focal weakness Psychiatric: Denies: Anxiety, Depression, Homicidal Ideations, Suicidal Ideations Hematologic/ Lymphatic: Reports: Easy Bruising, Easy Bleeding VTE Information - Inpt Only VTE Present on Admission: No VTE Mechan Device Prophylaxis: SCD's VTE Pharm Prophylaxis ordered?: No Reason prophylaxis not ordered:: Medical Contraindication - Patient with recent subdural hematoma, contraindicated. Patient Problems: Active and Suspected Problems (Last Reviewed 07/16/20 @ 15:[address] Ravin Ortega, DO) Chest pain (Acute) Cardiac enzymes elevated (Acute) Subjective: Patient seated upright in the ED bed, fatigued appearance, ongoing mild complaint of nausea, no chest pain currently. Objective: Physical Examination: General: awake, alert, oriented x 3 and cooperative, seated upright in bed in no apparent distress. Skin: normal color, turgor, no icterus, cyanosis. HEENT: AT/NC, EOMI, PERRLA, mildly dry MM, no carotid bruits or JVD noted. Lungs: Diminished breath sounds, greater bases, appropriate effort, no evidence of any distress, no rales, ronchi or wheezing. Heart: Mildly tachycardic with regular rhythm; no gallop, rub audible, upper chest AICD in place. Abdomen: soft, NTTP, ND, normal BS, no HSM. Extremities: no cyanosis, clubbing, or edema. Neurological: patient awake, alert, oriented as noted; cognitive function intact; pupils equally reactive to light and accomodation; cranial nerves II-XII grossly normal, moving all 4 extremities, no focal deficits, strength moderately to severely global decrease secondary to acute complaints and ongoing nausea. Psychiatric: affect appears fatigued, appears to not be feeling well, no acute evidence of depressive or anxiety feelings. - Physical Exam Vitals/I&O's: Vital Signs Temp Pulse Resp BP Pulse Ox 97.9 F 115 H 19 H 118/78 97 09/21/20 20:25 09/21/20 21:38 09/21/20 21:38 09/21/20 21:38 09/21/20 21:38 Oxygen Flow Rate (L/min) 4 Oxygen Delivery Method Nasal Cannula Weight: 195 lb 8.8 oz Body Mass Index (BMI) 29.7 Finger Stick Blood Glucose 195 Microbiology Past 72 Hours 09/21/20 20:45 Mucosa - Nasopharyngeal SARS-CoV-2 Antigen (Rapid) - Final Laboratory Results 09/21/20 20:36: WBC 11.5 H, RBC 4.51 L, Hgb 13.7, Hct 43.0, MCV 95.3 H, MCH 30.4, MCHC 31.9 L, RDW Std Deviation 49.3 H, RDW Coeff of Maggie 14.1, Plt Count 242, MPV 10.0, Immature Gran % (Auto) 0.400, Neut % (Auto) 86.5 H, Lymph % (Auto) 7.6 L, Rutherford % (Auto) 4.3, Eos % (Auto) 0.9, Baso % (Auto) 0.3, Absolute Neuts (auto) 10.0 H, Absolute Lymphs (auto) 0.87, Nucleated RBC % 0 09/21/20 20:36: PT 13.2, INR 1.0, APTT 33.3 09/21/20 20:36: Sodium 136, Potassium 5.0, Chloride 101, Carbon Dioxide 25.0, Anion Gap 10, BUN 20 H, Creatinine 1.69 H, Estim Creat Clear Calc 39.91, Est GFR (MDRD) Af Amer 52 L, Est GFR (MDRD) Non-Af 43 L, BUN/Creatinine Ratio 11.8, Glucose 146 H, Calcium 9.3, Total Bilirubin 0.70, AST 21, ALT 19, Alkaline Phosphatase 96, Troponin I 0.098 H, Total Protein 7.9, Albumin 4.1, Globulin 3.8, Albumin/Globulin Ratio 1.1 Assessment/Plan All Active Problems (Last Reviewed 07/16/20 @ 15:[address] Ravin Ortega, DO) Chest pain (Acute) Cardiac enzymes elevated (Acute) The patient is a 70 y/o M w/ PMHx: ESRD on HD, Chronic CHF/Ischemic cardiomyopathy, Hx VT s/p AICD, HTN, HLD, Chronic COPD/Emphysema/Chronic Bronchitis with chronic hypoxic respiratory failure with ongoing tobacco use, GERD, Diabetes mellitus type II, CAD s/p CABG x 3 and PCI x 10, Chronic back pain s/p back surgery x 2 with chronic L foot drop, Hx Intracranial hemorrhage, Hx EtOH abuse sober x 26 years, recently evaluated in the ED on 09/20/2020 with primarily complaint of dyspnea at that time and lower extremity swelling with CTPA with chronic findings only discharged increase Lasix regimen who now represents to the [facility] ED on 09/21/20 with onset crushing squeezing chest discomfort with left upper extremity radiation, associated dyspnea, diaphoresis and nausea. 1. Chest Pain with indeterminate cardiac enzyme: EKG with ST with L BBB similar to prior without acute evidence of ischemia, CXR w/ stable interstitial pr ominence without any new acute findings with evidence of prior midline sternotomy and AICD in place, initial trop 0.098 most recently on 09/20/2020 0.018. Patient chest pain has been specifically with coughing and with certain activities. Will admit to PCU, place on a monitored bed to assure no acute myocardial infarction with serial cardiac enzymes and EKGs. Patient with recent cardiac catheterization 06/2020 with referral at that time to [facility]. Will request Cardiology consultation given recent intervention and notable history. Complicated presentation as patient is not able to be anticoagulated currently and has been off his aspirin and Plavix since his mechanical fall and diagnosed subdural hematoma on 09/07/2020 with transfer at that time from the ED at [facility] to [facility] with neurosurgery evaluation. [facility] records requested. May need to contact Neurosurgery to discuss if possible repeat CT head with resumption ASA/Plavix allowable given history and current presentation with concerning clinical picture. NG, morphine. 2. Chronic Systolic CHF, Ischemic Cardiomyopathy: Chest x-ray with no overt overload currently, stable on 4L NC, BNP on 09/20/2020 404.8 with increased to Lasix 40 mg twice daily at that time with complaint of worsened dyspnea, no overt failure appearance currently. Patient s/p AICD, hx VT concurrently, will continue home statin, coreg, lasix, sacubitril/valsartan, most recent 07/16/20 ECHO w/ severe segmental systolic dysfunction, EF 30%, moderately enlarged LA, mild decrease in lead thickening, moderate MVI, mild TR, mild diffuse AV thickening, borderline to mild enlarged aortic root, RVSP 42 mmHg, evidence of diastolic dysfunction. Will continue entresto, statin, coreg, lasix and noted recent increased renal function associated. Continue 4L NC which appears to have been his recent requirement. Patient has as noted been off aspirin and Plavix since 09/07/2020. 3. CAD: CABG x 3 HUMPHREY-LAD, SVG-D1, SVG-OM and PCI x 10, will continue home coreg, statin, sacubitril/valsartan regimen. 07/17/20 cardiac catheterization with elevated LV end-diastolic pressure, [place] multivessel CAD, HUMPHREY to LAD noted to be small, atretic and occluded, SVG to DX 1 occluded, SVG to OM1 with prior stent patent with subsequent mid 90% stenosis and distal pre-bifurcation hazy approximate 75% stenosis, SVG to RCA occluded with at that time recommended risk factor modification, medical therapy, referred for PCI at [facility] with transfer to mixer attendant at their facility at that time secondary to complicated history. We will continue Entresto, statin, Coreg regimen. Patient has as noted has been off aspirin and Plavix since 09/07/2020. 4. Recent Mechanical fall w/ Resulting Intracranial Hemorrhage (SDH 08/2020 secondary to Fall): Most recent repeat CT head 09/11/20 stable small chronic L subdural hematoma, transferred initially 09/07/2020 following mechanical fall onto the ice with headache with ED presentation with noted subdural hematoma at that time to [facility] and has been evaluated by neurosurgery at their facility with continued hold on his dual antiplatelet therapy since then with upcoming neurosurgery visit per his report. Unfortunately patient situation is complicated and does put him at great risk given his significant CAD status post PCI history as noted. Will continue home seizure prophylaxis keppra regimen. 5. Hx ESRD on HD: Patient with admission 08/16/2020 to 08/22/2020 with acute kidney injury on chronic kidney disease requiring dialysis initiation at that time per [facility]. Following his fall with subdural hematoma with transfer to [facility] mid August 2020 patient was at that time discontinued from his dialysis with a dialysis port removal. 6. Chronic Kidney Disease Stage III with prior noted JILLIAN requiring ESRD temporarily with Acute renal insufficiency: Admission BUN/Cr 20/1.69 likely increased from 09/20/2020 secondary to increased Lasix regimen at discharge, baseline renal function most recently BUN/creatinine 16/1.17 on 09/20/2020, repeat BMP in AM. 7. Diabetes mellitus type II: Hold oral home regimen, ADA diet until NPO status, accu checks w/ ISS. 8. Hypertension: Will continue home coreg, lasix, sacubitril/valsartan regimen with hold parameters, PRN hydralazine. 9. Hyperlipidemia: Will continue home statin, FLP in AM. 10. Chronic COPD/emphysema/chronic bronchitis with Chronic Hypoxic Respiratory Failure: Will maintain on oxygen with wean as tolerated to room air/home oxygen supplementation, continue ATC duonebs, PRN albuterol, HOB, IS parameters. Continue 4L NC which appears to have been his recent requirement. 11. Hypothyroidism: Will continue home synthroid regimen. 12. Former alcohol abuse: Sober x 26 years, encourage continued sobriety. 13. Tobacco Abuse: Encouraged cessation, inpatient consultation per RT, NR if desired. 14. GERD: Continue home PPI. 15. ARIADNA: BIPAP q HS. 16. DVT prophylaxis: SCDs, will defer any chemoprophylaxis given recent SDH. 17. CODE status: Patient ALDAIR is his and living will he notes is not in place, encouraged discussions with case management/social work to assist in setting up if he is interested. Discussed CODE status at length including difference between FULL code, DNR-CCA and DNR-CC status. Following discussions about the differences in these status, requested Full Code status. Discussed likely poor prognosis given significant medical history. Advanced Care Planning Face to Face Time: 16 minutes. OBSV E&M: 68220 Initial observation care L3 Procedures: [id number] Advncd Care Plan 30 Min
[2020-09-21] MEDS: Morphine 4 MG/ML Syringe IV (22:44)
--- NOTE | 2020-09-21 23:17 | ED.RN ---
ASA HELD D/T HX: SUBDURAL HEMATOMA
--- NOTE | 2020-09-21 23:34 | EKG12_ITS ---
Test Reason : Blood Pressure : / mmHG Vent. Rate : 112 BPM Atrial Rate : 112 BPM P-R Int : 152 ms QRS Dur : 118 ms QT Int : 380 ms P-R-T Axes : 065 020 229 degrees QTc Int : 518 ms Sinus tachycardia Incomplete left bundle branch block T wave abnormality, consider lateral ischemia Abnormal ECG When compared with ECG of 22-SEP-2020 01:51, MANUAL COMPARISON REQUIRED, DATA IS UNCONFIRMED Confirmed by SHAVONNE LUNDBERG, LISA ([id number]), newspaper managing editor COREY BRYANT ([id number]) on 09/25/2020 1:09:38 PM Referred By: AMBROSIO Confirmed By:LISA MARVIN MD
--- NOTE | 2020-09-21 23:49 | CPS ---
Patient refuses to use bipap at night
[2020-09-21] MEDS: Albuterol 2.5 MG/3 ML VIAL.NEB. INHALATION (23:54)
[2020-09-22] VITALS (26 sets, daily range): BP systolic 70–114; BP diastolic 44–86; PULSE 108–117; RESP 12–25; TEMP 36.3–36.9; O2SAT 92–98
--- NOTE | 2020-09-22 00:12 | CT_ITS ---
We are attempting to reach an attending provider to discuss findings. An addendum with communication details will be sent when the communication is complete. STUDY: CT HEAD STROKE PROTOCOL W/O CONTRAST INJECTION REASON FOR EXAM: Male, 70 years old. Subdural hemorrhage RADIATION DOSAGE (If Supplied By Facility): CTDIvol = ( ) mGy, DLP = ( ) mGycm TECHNIQUE: Transaxial CT imaging of the brain was performed without administration of intravenous contrast material. Individualized dose optimization techniques were used for this CT. COMPARISON: No relevant priors. FINDINGS: Normal soft tissue structures. Normal calvarium. Normal size ventricles and extra-axial spaces for the patient''s age. There is left frontal subdural hematoma measures 14 mm in maximum thickness. 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 Normal basal ganglia and thalami. Normal brainstem. Normal cerebellum. There is no intracranial hemorrhage. There are no findings of an acute ischemic infarction. Normal visualized paranasal sinuses. CT/STROKE Brain/Head without Cont IMPRESSION: There is left frontal subdural hematoma measures 14 mm in maximum thickness. 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 Electronically Signed: Lisa Aguilar MD at 1:24 EST Tel , Service support ,
--- NOTE | 2020-09-22 00:13 | PCM.HOSP.N ---
Hospitalist Note Discussed case with Dr. Mace at [facility] given his presentation who is personal financial counselor for Dr. Baxter at this time. She reviewed his chart and recent admission. Discussed his recent 09/11/20 CT head also. Discussed his current presentation and cardiac concerns. She noted there is always potential risk thus close follow-up (2 weeks with neurosurgery, monitoring for headaches) but given his current presentation she cleared him to start on asa, plavix regimen given elevated cardiac risk presentation. Per discussion with her will obtain repeat CT head now for baseline and start asa, plavix regimen. Dr. Lay updated on current discussions and amenable. Discussed with PCU staff and patient updated. Neurosurgery [facility] Answering service
[2020-09-22 00:23] LABS: Magnesium 1.8 mg/dL (1.6-2.6)
[2020-09-22] MEDS: Nitroglycerin Oint 1 INCH PACKET 0.5 INCH TD (00:39)
[2020-09-22] MEDS: MELATONIN 3 MG TABLET PO (00:39)
[2020-09-22] MEDS: Morphine 4 MG/ML Syringe IV (00:39)
--- NOTE | 2020-09-22 01:25 | CCHN_ITS ---
Hospitalist Note CT head obtained and radiology called with report noting stable small L subdural hematoma. Relayed with production staff worker PCU. They noted currently patient with decreased BP with NG paste in place and recent morphine therefore paste removed.
[2020-09-22] MEDS: Clopidogrel Bisulfate 75 MG Tablet PO (01:27)
[2020-09-22] MEDS: Aspirin 81 MG TAB.CHEW 324 MG PO (01:27)
[2020-09-22] MEDS: Ondansetron 4 MG/2 ML Vial IV ×3 (02:34→09:04)
[2020-09-22] MEDS: Albuterol 2.5 MG/3 ML VIAL.NEB. INHALATION (02:36)
[2020-09-22] MEDS: HEPARIN/D5w 25,000 UNITS 25,000 UNITS/250 ML IV.SOLN. 12 UNITS IV (02:36)
[2020-09-22 04:16] LABS: Absolute Lymphocyte Count 1.22 X10^3/uL (0.83-4.51); Absolute Neutrophil Count 5.6 X10^3/uL (2.0-7.7); Basophil# 0.02 X10^3/uL; Basophil% 0.3 % (0-1); Eosinophil# 0.01 X10^3/uL; Eosinophils% 0.1 % (0-5); Hematocrit 40.9 % (40-54); Lymphocyte # 1.22 X10^3/ul (4.0); Lymphocyte % 16.4 % (19-41); Mean Corp Hgb Conc 31.8 g/dL (32-36); Mean Corpuscular Hgb 30.3 pg (27.0-32.0); Mean Corpuscular Volume 95.3 fL (80-94); Mean Platelet Vol. 9.9 fl (6.2-12.0); Monocyte# 0.55 X10^3/uL; Monocyte% 7.4 % (0-10); NRBC Flagged by Analyzer 0 % (0-5); Neutrophil # 5.63 X10^3/uL (2.7-7.7); Neutrophil % 75.5 % (47-70); Platelet Count 192 K/mm3 (150-450); RBC Distribution Width SD 49.1 fl (35.1-43.9); Red Blood Count 4.29 M/mm3 (4.6-6.2); White Blood Count 7.5 K/mm3 (4.4-11.0)
[2020-09-22 04:35] LABS: AST(SGOT) 141 U/L (15-37); Alanine Aminotransfer ALT/SGPT 24 U/L (16-61); Albumin, Serum 3.6 g/dL (3.2-5.0); Alkaline Phosphatase 90 U/L (45-117); Anion Gap 9 (5-15); BUN 22 mg/dL (7-18); BUN/Creat Ratio 14.8 RATIO (10-20); Calcium,Total 8.6 mg/dL (8.5-10.1); Chloride 102 mmol/L (98-107); Cholesterol 94 mg/dL (200); Creatinine, Serum 1.49 mg/dL (0.70-1.30); EST Glomerular Filtration Rate 50 mL/min (>60); Est Glom Filt Rate - Afr Amer 60 mL/min (>60); Estimated Creatinine Clearance 45.27 ml/min; Globulin 3.5 g/dL (2.2-4.2); Glucose 113 mg/dL (74-106); High Density Lipoprotein 33 mg/dL; Protein, Total 7.1 g/dL (6.4-8.2); Sodium Level 136 mmol/L (136-145); Triglycerides 88 mg/dL; Very Low Density Lipoprotein 18 mg/dL (5-40)
--- NOTE | 2020-09-22 05:06 | PCM.HOSP.N ---
Hospitalist Note Patient chest pain improved /; however, now hypotensive, SBP in 70s, will given small IVF bolus and given complicated presentation will transition to the ICU. Consulted Dr. Pop and updated on case. Also, notified Dr. Coleman of patient current presentation.
[2020-09-22] MEDS: 0.9% Normal Saline 1,000 ML 250 ML IV (05:16)
--- NOTE | 2020-09-22 05:55 | EKG12_ITS ---
Test Reason : CP Blood Pressure : / mmHG Vent. Rate : 112 BPM Atrial Rate : 112 BPM P-R Int : 152 ms QRS Dur : 120 ms QT Int : 372 ms P-R-T Axes : 061 -21 187 degrees QTc Int : 507 ms Sinus tachycardia Incomplete left bundle branch block T wave abnormality, consider lateral ischemia Abnormal ECG When compared with ECG of 21-SEP-2020 23:44, MANUAL COMPARISON REQUIRED, DATA IS UNCONFIRMED Confirmed by SHAVONNE LUNDBERG, LISA ([id number]), online editor COREY BRYANT ([id number]) on 09/25/2020 1:10:16 PM Referred By: AMBROSIO Confirmed By:LISA MARVIN MD
--- NOTE | 2020-09-22 06:59 | NURSING ---
0545 Called Report to LEONIE Plasencia in ICU at this time CMastRN
[2020-09-22] MEDS: Levothyroxine 25 MCG TABLET PO (07:04)
[2020-09-22] MEDS: Ipratropium/Albuterol Sulfate 3 ML AMPUL.NEB INHALATION ×2 (07:44→13:55)
--- NOTE | 2020-09-22 08:15 | CON.PCM_ITS ---
Reason for Consult Date of Consultation: 09/22/20 Reason for Consultation: Chest pain, NSTEMI, hypotension History of Present Illness: The patient is a 70-year-old male, with a history as outlined below, who initially presented to the emergency department on September 21 with complaints of chest pain. The patient has a known history of coronary artery disease status post CABG in April 2009 at [facility]. The patient then underwent revascularization in 2017 here at [facility]. The patient was recently admitted August 16 with decompensated heart failure. The patient last underwent a cardiac catheterization in June 2020 which revealed an elevated LVEDP and multivessel coronary disease. In addition to the aforementioned, the patient has a known history of COPD and chronic nicotine dependency. His last PFTs from February 2020 revealed evidence of a moderate large airways obstructive impairment with symmetric reduction in diffusing capacity. The patient is currently prescribed Anoro daily. The patient was evaluated in the emergency department on September 20 with complaints of shortness of breath. CTA chest obtained at that time showed no evidence for pulmonary embolism. The lung bui were hyperinflated with flattening of the diaphragms. Emphysematous changes were noted bilaterally. On presentation to the emergency department, the patient was noted to be afebrile, tachycardic and tachypneic. Laboratory evaluation revealed a white blood cell count of 11,000. Coagulation profile was within normal limits. Chemistry profile was notable for a creatinine of 1.69. Initial troponin was 0.098. However, the patient's troponin level has increased to 17.1 as of this morning. Initial plain film chest x-ray demonstrated no acute cardiopulmonary process. CT head revealed a left frontal subdural hematoma measuring 14 mm in thickness. The patient was initially admitted to the progressive care unit. However, early this morning, he apparently became hypotensive, which necessitated his transfer to the medical intensive care unit. On my review, it does appear that the patient was given IV morphine overnight and did receive Nitropaste this morning. Past Medical History Past Medical History (Chronic Problems): Chronic Problems (Last Reviewed 07/16/20 @ 15:[address] Ravin Ortega DO) Smoking greater than 30 pack years (Chronic) Appropriate for low-dose CT lung screening due January 2021 History of left heart catheterization (Chronic 07/17/20) LEFT MAIN: Angiographically normal;LEFT ANTERIOR DESCENDING ARTERY: PROX LAD: Moderate calcification MID LAD: is occluded with the mid to distal vessel filling late, DIAGONAL 1: Proximal - is occluded with the distal vessel filling late and faintly; CIRCUMFLEX ARTERY: Mild luminal irregularities, MID CIRC: 50 % Stenosis; RIGHT CORONARY ARTERY: not evaluated (previously documented as chronically occluded); GRAFTS: HUMPHREY graft to the Mid LAD previously documented as small, atretic, and occluded; Saphenous Vein graft to the 1st Diagonal previously; documented as occluded; Saphenous Vein graft to the 1st OM previously placed stent is patent with subsequent mid 90 % stenosis and distal, pre bifurcation, hazy 75 % stenosis; Saphenous Vein graft to the RCA previously documented as occluded - per cardiac cath 07/17/20 - LVEF: by LV gram 15-20 %; [place] Multivessel CAD; Occluded lac vieux mid LAD. Occluded lac vieux proximal RCA. Occluded SVG to DIAG. Occluded SVG to RCA. Occluded HUMPHREY to LAD. Severe 85% stenosis in last remaining vessel of SVG to LCX with widely patent SVG stents. Severe LV dysfunction. Referred for immediate PCI: Will tx to [facility] for high risk PCI to last remaining vessel of SVG to OM. 06/29/19 per DANA @ [facility] Hypoxia, sleep related (Chronic) ARIADNA (obstructive sleep apnea) (Chronic) COPD (chronic obstructive pulmonary disease) (Chronic) FEV1 64% of predicted Obesity (BMI 30.0-34.9) (Chronic) Nicotine dependence (Chronic) Gout (Chronic) Degenerative cervical disc (Chronic) Chronic back pain (Chronic) Presence of automatic implantable cardioverter-defibrillator (Chronic) H/O coronary artery bypass surgery (Chronic ~2008) HUMPHREY-LAD, SVG-D1, SVG-OM Chronic renal failure, stage 3 (moderate) (Chronic) Chronic systolic (congestive) heart failure (Chronic) Stented coronary artery (Chronic ~12/2016) has had 7 stents as of 06/15/17 Ischemic cardiomyopathy (Chronic) 25% ejection fraction in November 2016 V-tach (Chronic) has an AICD Benign essential hypertension (Chronic) Gastroesophageal reflux disease (Chronic) Hyperlipidemia (Chronic) Type 2 diabetes mellitus (Chronic) Morbid obesity (Chronic) CAD (coronary artery disease) (Chronic) Medical History: Medical History (Last Reviewed 07/16/20 @ 15:[address] Ravin Ortega, DO) Nicotine dependence (Chronic) F17.200 Gout (Chronic) M10.9 Degenerative cervical disc (Chronic) M50.30 Chronic back pain (Chronic) M54.9, G89.29 Chronic renal failure, stage 3 (moderate) (Chronic) N18.3 Chronic systolic (congestive) heart failure (Chronic) I50.22 Ischemic cardiomyopathy (Chronic) I25.5 25% ejection fraction in November 2016 V-tach (Chronic) I47.2 has an AICD Benign essential hypertension (Chronic) I10 Gastroesophageal reflux disease (Chronic) K21.9 Hyperlipidemia (Chronic) E78.5 Type 2 diabetes mellitus (Chronic) E11.9 Morbid obesity (Chronic) E66.01 CAD (coronary artery disease) (Chronic) I25.10 Tubular adenoma of colon (Inactive) D12.6 Allergies chlorpromazine HCl [From Thorazine] Allergy (Severe, Verified 09/21/20 20:51) Hives PER PATIENT tramadol HCl [From Ultram] Allergy (Severe, Verified 09/21/20 20:51) Hives PER PATIENT codeine Allergy (Intermediate, Verified 09/21/20 20:51) Hives promethazine [From Phenergan] Allergy (Verified 09/21/20 20:51) confusion atorvastatin Adverse Reaction (Intermediate, Verified 09/21/20 20:51) LEG PAIN/CRAMPS LEG PAIN/CRAMPS cyclobenzaprine [From Flexeril] Adverse Reaction (Verified 09/21/20 20:51) Upset Stomach metformin Adverse Reaction (Verified 09/21/20 20:51) Upset Stomach naproxen Adverse Reaction (Verified 09/21/20 20:51) Upset Stomach Home Medications: Ambulatory Orders Medication Instructions Recorded Albuterol Aerosols [Ventolin 2.5 mg INHALATION Q4H PRN PRN 09/11/20 Aerosols] Allopurinol [Zyloprim] 300 mg PO DAILY 09/11/20 Carvedilol [Coreg] 6.25 mg PO BID 09/11/20 Glimepiride [Amaryl] 1 mg PO DAILY 09/11/20 Ipratropium/Albuterol Sulfate 3 ml IH Q6H PRN 09/11/20 [Iprat-Albut 0.5-3(2.5) mg/3 ml] Levetiracetam [Keppra] 500 mg PO DAILY 09/11/20 Levothyroxine [Synthroid] 25 mcg PO DAILY 09/11/20 Nicotine [Nicoderm Cq (PBKC)] 14 mg TRANSDERM. DAILY 09/11/20 Nitroglycerin [Nitrostat] 0.4 mg SL Q5M PRN 09/11/20 Oxycodone HCl/Acetaminophen 1 ea PO Q6H PRN 09/11/20 [Endocet 7.5-325 mg Tablet] Pantoprazole Sodium [Protonix] 40 mg PO DAILY 09/11/20 Rosuvastatin Calcium [Crestor] 40 mg PO QHS 09/11/20 Sacubitril/Valsartan 24/26 mg 1 ea PO BID 09/11/20 [Entresto 24 mg-26 mg Tablet] Umeclidinium Brm/Vilanterol Tr 1 ea IH DAILY 09/11/20 [Anoro Ellipta 62.5-25 Mcg INH] Furosemide [Lasix] 40 mg PO BID #10 tab 09/20/20 Surgical History: Surgical History (Last Updated 07/17/20 @ 13:59 by Nafisa Coleman) History of left heart catheterization (Chronic) Onset Date: 07/17/20 Z98.890 LEFT MAIN: Angiographically normal;LEFT ANTERIOR DESCENDING ARTERY: PROX LAD: Moderate calcification MID LAD: is occluded with the mid to distal vessel filling late, DIAGONAL 1: Proximal - is occluded with the distal vessel filling late and faintly; CIRCUMFLEX ARTERY: Mild luminal irregularities, MID CIRC: 50 % Stenosis; RIGHT CORONARY ARTERY: not evaluated (previously documented as chronically occluded); GRAFTS: HUMPHREY graft to the Mid LAD previously documented as small, atretic, and occluded; Saphenous Vein graft to the 1st Diagonal previously; documented as occluded; Saphenous Vein graft to the 1st OM previously placed stent is patent with subsequent mid 90 % stenosis and distal, pre bifurcation, hazy 75 % stenosis; Saphenous Vein graft to the RCA previously documented as occluded - per cardiac cath 07/17/20 - LVEF: by LV gram 15-20 %; [place] Multivessel CAD; Occluded lac vie[place] mid LAD. Occluded [place] proximal RCA. Occluded SVG to DIAG. Occluded SVG to RCA. Occluded HUMPHREY to LAD. Severe 85% stenosis in last remaining vessel of SVG to LCX with widely patent SVG stents. Severe LV dysfunction. Referred for immediate PCI: Will tx to [facility] for high risk PCI to last remaining vessel of SVG to OM. 06/29/19 per DANA @ [facility] Presence of automatic implantable cardioverter-defibrillator (Chronic) Z95.810 H/O coronary artery bypass surgery (Chronic) Onset Date: ~2008 Z95.1 HUMPHREY-LAD, SVG-D1, SVG-OM Stented coronary artery (Chronic) Onset Date: ~12/2016 has had 7 stents as of 06/15/17 Hx of hernia repair (Inactive) Z98.890, Z87.19 Previous back surgery (Inactive) Z98.890 Surgical History: angioplasty - stents x 10, coronary bypass surgery, - - AICD placement, back surgery x 2, hernia repair, PCI. 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 Drugs: None - *Family History Paternal Family History: Family History (Last Reviewed 07/16/20 @ 15:[address] Ravin Ortega DO) Brother CAD (coronary artery disease) Myocardial infarction Sudden cardiac Mother Cancer Hypertension Father Cancer COPD (chronic obstructive pulmonary disease) History Items: Cancer, Heart Disease Maternal Family History: Family History (Last Reviewed 07/16/20 @ 15:[address] Ravin Ortega DO) Brother CAD (coronary artery disease) Myocardial infarction Sudden cardiac Mother Cancer Hypertension Father Cancer COPD (chronic obstructive pulmonary disease) History Items: Cancer - lung, Hypertension, - - Patient notes a paternal family history of chronic lung disease, lung cancer with history of tobacco use. Review of Systems Constitutional: Denies: Chills, Fever, Weight Change Eyes: Denies: Blurred vision, Double vision HEENT: Denies: Head Aches, Sinus Congestion, Sinus Drainage Cardiovascular: Reports: Chest Pain Respiratory: Reports: Cough, Shortness of Breath Gastrointestinal: Denies: Abdominal Pain, Nausea, Vomiting Genitourinary: Denies: Dysuria Musculoskeletal: Denies: Joint Pain, Joint Tenderness Skin: Denies: Rash, Wounds Neurological: Denies: Numbness, Tingling, Focal weakness Psychiatric: Denies: Anxiety, Depression, Homicidal Ideations, Suicidal Ideations Hematologic/ Lymphatic: Denies: Easy Bruising, Easy Bleeding Patient Problems: Active and Suspected Problems (Last Reviewed 07/16/20 @ 15:[address] Ravin Ortega, DO) Chest pain (Acute) Cardiac enzymes elevated (Acute) NSTEMI (non-ST elevated myocardial infarction) (Acute) Subdural hematoma (Acute) Objective: The patient's most recent lab work, culture data and imaging studies have all been personally reviewed. Rapid coronavirus antigen testing was negative. - Physical Exam Vitals/I&O's: Vital Signs Temp Pulse Resp BP Pulse Ox 98.4 F 112 H 24 H 76/57 L 98 09/22/20 06:00 09/22/20 06:45 09/22/20 06:45 09/22/20 06:45 09/22/20 07:33 Oxygen Flow Rate (L/min) 2 Oxygen Delivery Method Non-Rebreather Weight: 185 lb 13.595 oz Body Mass Index (BMI) 28.2 Finger Stick Blood Glucose 195 Intake and Output for Last 24 Hours 09/20/20 09/21/20 09/22/20 23:59 23:59 23:59 Intake Total 250 / 250 Balance 250 / 250 General: Alert, Cooperative, No apparent distress HEENT: Atraumatic, Normocephalic Oral: No Gingival or Mucosal Lesions/ Ulcerations Neck: Supple, No Nodes, Trachea Midline Lungs: No rhonchi, No wheeze, No rales, Diminished Cardiovascular: Regular rate, Regular Rhythm Abdomen: Bowel Sounds Present, Soft, Non Tender Extremities: No clubbing, No cyanosis, No edema Skin: No breakdown Musculoskeletal: No Tenderness to Palpation of Joints or Extremities Lymphatic: No Cervical, Supraclavicular, or Inguinal Adenopathy Neurological: Neuro grossly intact Psych/Mental Status: Normal Affect, Appropriate Labs (Last 48 Hours) 09/21/20 09/21/20 09/21/20 20:36 20:36 20:36 WBC 11.5 H RBC 4.51 L Hgb 13.7 Hct 43.0 MCV 95.3 H MCH 30.4 MCHC 31.9 L RDW Std Deviation 49.3 H RDW Coeff of Maggie 14.1 Plt Count 242 MPV 10.0 Immature Gran % (Auto) 0.400 Neut % (Auto) 86.5 H Lymph % (Auto) 7.6 L Payette % (Auto) 4.3 Eos % (Auto) 0.9 Baso % (Auto) 0.3 Absolute Neuts (auto) 10.0 H Absolute Lymphs (auto) 0.87 Nucleated RBC % 0 PT 13.2 INR 1.0 APTT 33.3 Sodium 136 Potassium 5.0 Chloride 101 Carbon Dioxide 25.0 Anion Gap 10 BUN 20 H Creatinine 1.69 H Estim Creat Clear Calc 39.91 Est GFR (MDRD) Af Amer 52 L Est GFR (MDRD) Non-Af 43 L BUN/Creatinine Ratio 11.8 Glucose 146 H Calcium 9.3 Magnesium Total Bilirubin 0.70 AST 21 ALT 19 Alkaline Phosphatase 96 Troponin I 0.098 H Total Protein 7.9 Albumin 4.1 Globulin 3.8 Albumin/Globulin Ratio 1.1 Triglycerides Cholesterol LDL Cholesterol VLDL Cholesterol HDL Cholesterol 09/21/20 09/22/20 09/22/20 20:36 00:54 04:07 WBC 7.5 RBC 4.29 L Hgb 13.0 Hct 40.9 MCV 95.3 H MCH 30.3 MCHC 31.8 L RDW Std Deviation 49.1 H RDW Coeff of Maggie 14.0 Plt Count 192 MPV 9.9 Immature Gran % (Auto) 0.300 Neut % (Auto) 75.5 H Lymph % (Auto) 16.4 L Payette % (Auto) 7.4 Eos % (Auto) 0.1 Baso % (Auto) 0.3 Absolute Neuts (auto) 5.6 Absolute Lymphs (auto) 1.22 Nucleated RBC % 0 PT INR APTT Sodium Potassium Chloride Carbon Dioxide Anion Gap BUN Creatinine Estim Creat Clear Calc Est GFR (MDRD) Af Amer Est GFR (MDRD) Non-Af BUN/Creatinine Ratio Glucose Calcium Magnesium 1.8 Total Bilirubin AST ALT Alkaline Phosphatase Troponin I 5.080 H* Total Protein Albumin Globulin Albumin/Globulin Ratio Triglycerides Cholesterol LDL Cholesterol VLDL Cholesterol HDL Cholesterol 09/22/20 09/22/20 04:07 04:07 WBC RBC Hgb Hct MCV MCH MCHC RDW Std Deviation RDW Coeff of Maggie Plt Count MPV Immature Gran % (Auto) Neut % (Auto) Lymph % (Auto) Payette % (Auto) Eos % (Auto) Baso % (Auto) Absolute Neuts (auto) Absolute Lymphs (auto) Nucleated RBC % PT INR APTT Sodium 136 Potassium 5.0 Chloride 102 Carbon Dioxide 25.0 Anion Gap 9 BUN 22 H Creatinine 1.49 H Estim Creat Clear Calc 45.27 Est GFR (MDRD) Af Amer 60 Est GFR (MDRD) Non-Af 50 L BUN/Creatinine Ratio 14.8 Glucose 113 H Calcium 8.6 Magnesium Total Bilirubin 0.50 AST 141 H ALT 24 Alkaline Phosphatase 90 Troponin I 17.100 H* Total Protein 7.1 Albumin 3.6 Globulin 3.5 Albumin/Globulin Ratio 1.0 Triglycerides 88 Cholesterol 94 LDL Cholesterol 43 VLDL Cholesterol 18 HDL Cholesterol 33 L Microbiology 09/21/20 20:45 Mucosa - Nasopharyngeal SARS-CoV-2 Antigen (Rapid) - Final Clinical Impression(s) from Imaging Studies Chest X-Ray 09/21/20 20:50 IMPRESSION: No acute pulmonary changes. Stable interstitial prominence without new consolidation, focal atelectasis or a substantial pleural effusion. Stable normal cardiac size. Status post prior midline sternotomy with ICD in good position. Electronically Signed: Rupinder Levine MD at 21:36 EST , Service support , Brain CT 09/22/20 00:12 IMPRESSION: There is left frontal subdural hematoma measures 14 mm in maximum thickness. 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 Electronically Signed: Lisa Aguilar MD at 1:24 EST Tel , Service support , ADDENDUM: 09/22/20 0135 IMPRESSION: There is left frontal subdural hematoma measures 14 mm in maximum thickness. 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 N.B. : The above information has been verbally conveyed by Lisa Aguilar MD to Lyla Swanson MD, on 09/22/2020 01:28:50 (ET). Electronically Signed: Lisa Aguilar MD at 1:24 EST Tel , Service support , Current Medications Acetaminophen (Acetaminophen 325 Mg Tablet) 650 mg PO Q6H PRN PRN PRN Reason: Pain Score 1-10/Temp > 100.7 F Al Hydroxide/Mg Hydroxide (Mag Hydrox/Al Hydrox/Simeth 30 Ml Udc) 30 ml PO Q6H PRN PRN PRN Reason: Gastric Burning Albuterol Sulfate (Albuterol 2.5 Mg/3 Ml Vial.Neb.) 2.5 mg INHALATION Q2H PRN PRN PRN Reason: Dyspnea, wheezing Last Admin: 09/22/20 02:36 Dose: 2.5 mg Documented by: Albuterol/Ipratropium (Ipratropium/Albuterol Sulfate 3 Ml Ampul.Neb) 3 ml INHALATION Q6HWA.RT CAROLYN Last Admin: 09/22/20 07:44 Dose: 3 ml Documented by: Allopurinol (Allopurinol 300 Mg Tablet) 300 mg PO DAILY CAROLYN Aspirin (Aspirin 81 Mg Tab.Chew) 81 mg PO DAILY@0800 CAROLYN Carvedilol (Carvedilol 6.25 Mg Tablet) 6.25 mg PO BID CAROLYN Clopidogrel Bisulfate (Clopidogrel Bisulfate 75 Mg Tablet) 75 mg PO DAILY [facility] Furosemide (Furosemide 40 Mg Tablet) 40 mg PO DAILY CAROLYN Guaifenesin (Guaifenesin 10 Ml Udc (200mg/10ml)) 20 ml PO Q4H PRN PRN PRN Reason: COUGH Heparin Sodium (Porcine) (Heparin Injection (Vial) 5,000 Unit/Ml Vial) 0 unit IV UD PRN; Protocol PRN Reason: dose adjustment Hydralazine HCl (Hydralazine 20 Mg/Ml Vial) 10 mg IV Q4H PRN PRN PRN Reason: SBP > 160 Heparin Sodium/Dextrose () 25,000 units in 250 mls @ 12 mls/hr IV .[id number] [facility]; Protocol Last Admin: 09/22/20 02:36 Dose: 1,200 units/hr, 12 mls/hr Documented by: Sodium Chloride () 1,000 mls @ 250 mls/hr IV .Q4H CAROLYN Last Admin: 09/22/20 05:16 Dose: 250 mls/hr Documented by: Insulin Human Lispro (Insulin Lispro 100 Unit/Ml Insuln.Pen) 0 unit SC ACHS [facility]; Protocol Levetiracetam (Levetiracetam 500 Mg Tablet) 500 mg PO DAILY [facility] Levothyroxine Sodium (Levothyroxine 25 Mcg Tablet) 25 mcg PO DAILY@0600 [facility] Last Admin: 09/22/20 07:04 Dose: 25 mcg Documented by: Magnesium Hydroxide (Magnesium Hydroxide 30 Ml Udc) 30 ml PO DAILY PRN PRN PRN Reason: Constipation Melatonin (Melatonin 3 Mg Tablet) 3 mg PO QHS PRN PRN PRN Reason: INSOMNIA Last Admin: 09/22/20 00:39 Dose: 3 mg Documented by: Morphine Sulfate (Morphine 4 Mg/Ml Syringe) 4 mg IV Q3H PRN PRN PRN Reason: Pain Score 6-10 Last Admin: 09/22/20 00:39 Dose: 4 mg Documented by: Nicotine (Nicotine 14 Mg Patch) 14 mg TD DAILY [facility] Nitroglycerin (Nitroglycerin Oint 1 Inch Packet) 0.5 inch TD Q6H [facility] Last Admin: 09/22/20 05:35 Dose: Not Given Documented by: Ondansetron HCl (Ondansetron 4 Mg/2 Ml Vial) 4 mg IV Q6H PRN PRN PRN Reason: NAUSEA/VOMITING Last Admin: 09/22/20 02:34 Dose: 4 mg Documented by: Oxycodone HCl (Oxycodone 5 Mg Tablet) 5 mg PO Q6H PRN PRN PRN Reason: Pain Score 4-5/10 Pantoprazole Sodium (Pantoprazole Sodium 40 Mg Tablet) 40 mg PO DAILY [facility] Psyllium Hydrophilic Mucilloid (Psyllium 1 Packet) 1 packet PO DAILY PRN PRN PRN Reason: Constipation Rosuvastatin Calcium (Rosuvastatin 20 Mg Tablet) 40 mg PO QHS [facility] Sacubitril/Valsartan (Sacubitril/Valsartan 24/26 Mg Tablet) 1 each PO BID [facility] Senna/Docusate Sodium (Senna/Docusate Sodium 1 Tablet) 2 tablet PO BID PRN PRN PRN Reason: Constipation Sodium Chloride (0.9% Saline Lock 10 Ml Syringe) 10 - 40 ml IV UD PRN PRN Reason: SALINE FLUSH Throat Lozenges (Benzocaine/Menthol 1 Lozenge) 1 lozenge MUCOUS MEM Q2H PRN PRN PRN Reason: SORE THROAT Assessment/Plan Active and Suspected Problems (Last Reviewed 07/16/20 @ 15:[address] Ravin Ortega, DO) Chest pain (Acute) Cardiac enzymes elevated (Acute) NSTEMI (non-ST elevated myocardial infarction) (Acute) Subdural hematoma (Acute) RECOMMENDATIONS: 1. Continue bronchodilators as ordered. 2. Continue nicotine replacement therapy. 3. Defer primary management of chest pain/NSTEMI to cardiology and hospitalist. 4. Wean supplemental oxygen as tolerated. 5. Avoid simultaneous use of morphine and nitro products, given the development of hypotension. 6. No need for vasopressor support at this time. IMPRESSIONS: 1. Chest pain/non-ST segment elevation KS The patient has an extensive cardiac history and has an elevated troponin of 17. Cardiology evaluation is currently pending. However, there are currently plans for possible cardiac catheterization later this morning. 2. Hypotension Most likely secondary to vasodilatory effects of IV morphine and nitro, given to the patient overnight and this morning. His hemodynamics are currently stable without the need for vasopressor support. 3. COPD/chronic nicotine dependency The patient has known COPD and is currently followed in the pulmonary medicine clinic. Agree with continuing scheduled bronchodilators as ordered. 4. Recent fall with subdural hematoma The patient will need to be monitored closely, especially in light of the antiplatelet/anticoagulation currently being employed. 5. End-stage renal disease/diabetes mellitus/hypertension/hyperlipidemia/hypothyroidism Complicates care, management, recovery and prognosis. Continue home medications as indicated. This note was generated with [employer] dictation software. It may contain incorrect words, spelling, and punctuation that were not noted in checking the note before signing. Inpatient E&M: 30965 Init Hosp L3
--- NOTE | 2020-09-22 08:45 | CON.PCM_ITS ---
Problem List (1) NSTEMI (non-ST elevated myocardial infarction) Status: Acute (2) CAD (coronary artery disease) Status: Chronic Qualifiers: Coronary Disease-Associated Artery/Lesion type: unspecified vessel or lesion type [place] vs. transplanted heart: [place] heart (3) Stented coronary artery Status: Chronic Comment: has had 7 stents as of 06/15/17 (4) H/O coronary artery bypass surgery Status: Chronic Comment: HUMPHREY-LAD, SVG-D1, SVG-OM (5) Ischemic cardiomyopathy Status: Chronic Comment: 25% ejection fraction in November 2016 (6) Chronic systolic (congestive) heart failure Status: Chronic (7) Presence of automatic implantable cardioverter-defibrillator Status: Chronic (8) Hyperlipidemia Status: Chronic Qualifiers: Hyperlipidemia type: unspecified Qualified Code(s): E78.5 - Hyperlipidemia, unspecified (9) Benign essential hypertension Status: Chronic (10) Type 2 diabetes mellitus Status: Chronic Qualifiers: Diabetes mellitus long distance billing operator insulin use: without long distance billing operator use Diabetes mellitus complication status: with other specified complication Qualified Code(s): E11.69 - Type 2 diabetes mellitus with other specified complication (11) Chronic renal failure, stage 3 (moderate) Status: Chronic Qualifiers: Chronic kidney disease stage 3 subtype: unspecified whether 3a or 3b Qualified Code(s): N18.30 - Chronic kidney disease, stage 3 unspecified (12) COPD (chronic obstructive pulmonary disease) Status: Chronic Qualifiers: Chronic bronchitis type: unspecified Comment: FEV1 64% of predicted (13) Subdural hematoma Status: Acute Reason for Consult Date of Consultation: 09/22/20 History of Present Illness: The patient is a 70 year [id number] white male with a past medical history of underlying CAD, PCI, CABG, ischemic mediated cardiomyopathy, chronic systolic CHF, status post dual-chamber ICD placement, hyperlipidemia, hypertension, diabetes mellitus, COPD, chronic renal insufficiency, and now status post subdural hematoma who presents for evaluation of an acute non-ST segment elevation WI with ongoing concerning symptoms and abnormal cardiac enzyme levels. The patient was evaluated on 07-16-2020 for concerns of his cardiovascular condition. He underwent noninvasive and invasive evaluation at [facility]. The results are as noted below. He was subsequently transferred to [facility] for subsequent SVG graft PCI. He continued medical therapy. He states that he was doing well until the beginning of this month with an he fell and had blunt head trauma. He states he was reassessed at [facility] and was found to have a subdural hematoma. His aspirin and antiplatelet therapy were discontinued. He notes he was doing well until approximately yesterday when he began to have recurrent left chest/left upper extremity discomfort, shortness of breath/dyspnea, and the sensation of being dizzy. He stated he recognized his symptoms as being similar to what he had before with his cardiovascular condition. Thus he elected to present to the hospital for further evaluation and care. He has been monitored and has had cardiac enzymes performed which are positive (increasing). His ECG demonstrated sinus rhythm with incomplete left bundle branch block pattern. He was noted to continue medical therapy and have evidence of hypotension and was subsequently placed in the ICU for further evaluation and care. His medicines were adjusted to assist with his blood pressure related issues. He states he continues to feel bad all over and continues to have concerns of his ongoing chest discomfort and left upper extremity discomfort. He has also recently undergone evaluation on 09-20-[address] scan was considered negative for thromboembolic disease and great vessel disease. He has also undergone brain CT scan which did demonstrate an underlying subdural hematoma. His COVID-19 study was reported as negative. The [facility] hospitalist staff did discuss his case with neurosurgery who granted permission to proceed, based on his acute cardiovascular condition, with resuming his antiplatelet therapy and anticoagulant therapy. [] Past Medical History Allergies/Adverse Reactions: Allergies chlorpromazine HCl [From Thorazine] Allergy (Severe, Verified 09/21/20 20:51) Hives PER PATIENT tramadol HCl [From Ultram] Allergy (Severe, Verified 09/21/20 20:51) Hives PER PATIENT codeine Allergy (Intermediate, Verified 09/21/20 20:51) Hives promethazine [From Phenergan] Allergy (Verified 09/21/20 20:51) confusion atorvastatin Adverse Reaction (Intermediate, Verified 09/21/20 20:51) LEG PAIN/CRAMPS LEG PAIN/CRAMPS cyclobenzaprine [From Flexeril] Adverse Reaction (Verified 09/21/20 20:51) Upset Stomach metformin Adverse Reaction (Verified 09/21/20 20:51) Upset Stomach naproxen Adverse Reaction (Verified 09/21/20 20:51) Upset Stomach Home Medications: Ambulatory Orders Medication Instructions Recorded Albuterol Aerosols [Ventolin 2.5 mg INHALATION Q4H PRN PRN 09/11/20 Aerosols] Allopurinol [Zyloprim] 300 mg PO DAILY 09/11/20 Carvedilol [Coreg] 6.25 mg PO BID 09/11/20 Glimepiride [Amaryl] 1 mg PO DAILY 09/11/20 Ipratropium/Albuterol Sulfate 3 ml IH Q6H PRN 09/11/20 [Iprat-Albut 0.5-3(2.5) mg/3 ml] Levetiracetam [Keppra] 500 mg PO DAILY 09/11/20 Levothyroxine [Synthroid] 25 mcg PO DAILY 09/11/20 Nicotine [Nicoderm Cq (PBKC)] 14 mg TRANSDERM. DAILY 09/11/20 Nitroglycerin [Nitrostat] 0.4 mg SL Q5M PRN 09/11/20 Oxycodone HCl/Acetaminophen 1 ea PO Q6H PRN 09/11/20 [Endocet 7.5-325 mg Tablet] Pantoprazole Sodium [Protonix] 40 mg PO DAILY 09/11/20 Rosuvastatin Calcium [Crestor] 40 mg PO QHS 09/11/20 Sacubitril/Valsartan 24/26 mg 1 ea PO BID 09/11/20 [Entresto 24 mg-26 mg Tablet] Umeclidinium Brm/Vilanterol Tr 1 ea IH DAILY 09/11/20 [Anoro Ellipta 62.5-25 Mcg INH] Furosemide [Lasix] 40 mg PO BID #10 tab 09/20/20 Past Medical History (Chronic Problems): Chronic Problems (Last Reviewed 07/16/20 @ 15:[address] Ravin Ortega, DO) Smoking greater than 30 pack years (Chronic) Appropriate for low-dose CT lung screening due January 2021 History of left heart catheterization (Chronic 07/17/20) LEFT MAIN: Angiographically normal;LEFT ANTERIOR DESCENDING ARTERY: PROX LAD: Moderate calcification MID LAD: is occluded with the mid to distal vessel filling late, DIAGONAL 1: Proximal - is occluded with the distal vessel filling late and faintly; CIRCUMFLEX ARTERY: Mild luminal irregularities, MID CIRC: 50 % Stenosis; RIGHT CORONARY ARTERY: not evaluated (previously documented as chronically occluded); GRAFTS: HUMPHREY graft to the Mid LAD previously documented as small, atretic, and occluded; Saphenous Vein graft to the 1st Diagonal previously; documented as occluded; Saphenous Vein graft to the 1st OM previously placed stent is patent with subsequent mid 90 % stenosis and distal, pre bifurcation, hazy 75 % stenosis; Saphenous Vein graft to the RCA previously documented as occluded - per cardiac cath 07/17/20 - LVEF: by LV gram 15-20 %; [place] Multivessel CAD; Occluded [place] mid LAD. Occluded [place] proximal RCA. Occluded SVG to DIAG. Occluded SVG to RCA. Occluded HUMPHREY to LAD. Severe 85% stenosis in last remaining vessel of SVG to LCX with widely patent SVG st ents. Severe LV dysfunction. Referred for immediate PCI: Will tx to [facility] for high risk PCI to last remaining vessel of SVG to OM. 06/29/19 per [facility] @ [facility] Hypoxia, sleep related (Chronic) ARIADNA (obstructive sleep apnea) (Chronic) COPD (chronic obstructive pulmonary disease) (Chronic) FEV1 64% of predicted Obesity (BMI 30.0-34.9) (Chronic) Nicotine dependence (Chronic) Gout (Chronic) Degenerative cervical disc (Chronic) Chronic back pain (Chronic) Presence of automatic implantable cardioverter-defibrillator (Chronic) H/O coronary artery bypass surgery (Chronic ~2008) HUMPHREY-LAD, SVG-D1, SVG-OM Chronic renal failure, stage 3 (moderate) (Chronic) Chronic systolic (congestive) heart failure (Chronic) Stented coronary artery (Chronic ~12/2016) has had 7 stents as of 06/15/17 Ischemic cardiomyopathy (Chronic) 25% ejection fraction in November 2016 V-tach (Chronic) has an AICD Benign essential hypertension (Chronic) Gastroesophageal reflux disease (Chronic) Hyperlipidemia (Chronic) Type 2 diabetes mellitus (Chronic) Morbid obesity (Chronic) CAD (coronary artery disease) (Chronic) Surgical History: angioplasty - stents x 10, coronary bypass surgery, - - AICD placement, back surgery x 2, hernia repair, PCI. Psychiatric History: No pertinent psych hx - *Family History Paternal Family History: Family History (Last Reviewed 07/16/20 @ 15:[address] Ravin Ortega, DO) Brother CAD (coronary artery disease) Myocardial infarction Sudden cardiac Mother Cancer Hypertension Father Cancer COPD (chronic obstructive pulmonary disease) History Items: Cancer, Heart Disease Maternal Family History: Family History (Last Reviewed 07/16/20 @ 15:[address] Ravin Ortega, DO) Brother CAD (coronary artery disease) Myocardial infarction Sudden cardiac Mother Cancer Hypertension Father Cancer COPD (chronic obstructive pulmonary disease) History Items: Cancer - lung, Hypertension, - - Patient notes a paternal family history of chronic lung disease, lung cancer with history of tobacco use. Lives: Spouse/ Significant Other Smoking Status: Current every day smoker Tobacco Use: Cigarettes Alcohol: Sober - Sober x 26 years. Drugs: None Review of Systems - Review of Systems General: Reports: Fatigue. Denies: Fever, Night Sweats Cardiovascular: Reports: Chest Discomfort, Chest Discomfort at Rest, Chest Discomfort with Exertion, Shortness of Breath, Shortness of Breath at Rest, Shortness of Breath with Exertion, Dizziness. Denies: Orthopnea, PND, Peripheral Edema, Palpitations, Lightheadedness, Near Syncope, Syncope Respiratory: Reports: Shortness of Breath. Denies: Cough, Sputum Production, Hemoptysis Gastrointestinal: Denies: Hematemesis, Hematochezia, Melena Genitourinary: Denies: Dysuria, Hematuria Skin: Denies: Rash Subjectve: Is a 70-year-old white male currently in the ICU. Objective: Vital Signs Temp Pulse Resp BP Pulse Ox 98.4 F 110 H 19 H 76/57 L 98 09/22/20 06:00 09/22/20 08:31 09/22/20 08:31 09/22/20 06:45 09/22/20 07:33 Oxygen Flow Rate (L/min) 2 Oxygen Delivery Method Non-Rebreather Weight: 185 lb 13.595 oz Body Mass Index (BMI) 28.2 Finger Stick Blood Glucose 195 Intake and Output for Last 24 Hours 09/20/20 09/21/20 09/22/20 23:59 23:59 23:59 Intake Total 250 / 250 Balance 250 / 250 General: Awake, Alert, Oriented x 3, Cooperative, Ill Appearing HEENT: Atraumatic, Normocephalic, PERRL, EOMI, Sclera Non Icteric Neck: Supple, Good ROM, No JVD Lungs: Diminished Stone Bases Cardiovascular: Regular Rhythm, Normal S1, Normal S2 Abdomen: Bowel Sounds Present, Soft Extremities: No edema Neurological: No Focal Motor or Sensory Deficit Psych/Mental Status: Appropriate 09/21/20 20:36: WBC 11.5 H, RBC 4.51 L, Hgb 13.7, Hct 43.0, MCV 95.3 H, MCH 30.4, MCHC 31.9 L, Plt Count 242, MPV 10.0, Immature Gran % (Auto) 0.400, Neut % (Auto) 86.5 H, Lymph % (Auto) 7.6 L, [place] % (Auto) 4.3, Eos % (Auto) 0.9, Baso % (Auto) 0.3, Absolute Neuts (auto) 10.0 H, Nucleated RBC % 0 09/21/20 20:36: PT 13.2, INR 1.0, APTT 33.3 09/21/20 20:36: Sodium 136, Potassium 5.0, Chloride 101, Carbon Dioxide 25.0, Anion Gap 10, BUN 20 H, Creatinine 1.69 H, Est GFR (MDRD) Af Amer 52 L, Est GFR (MDRD) Non-Af 43 L, BUN/Creatinine Ratio 11.8, Glucose 146 H, Calcium 9.3, Total Bilirubin 0.70, Troponin I 0.098 H 09/21/20 20:36: Magnesium 1.8 09/22/20 00:54: Troponin I 5.080 H* 09/22/20 04:07: WBC 7.5, RBC 4.29 L, Hgb 13.0, Hct 40.9, MCV 95.3 H, MCH 30.3, MCHC 31.8 L, Plt Count 192, MPV 9.9, Immature Gran % (Auto) 0.300, Neut % (Auto) 75.5 H, Lymph % (Auto) 16.4 L, [place] % (Auto) 7.4, Eos % (Auto) 0.1, Baso % (Auto) 0.3, Absolute Neuts (auto) 5.6, Nucleated RBC % 0 09/22/20 04:07: Sodium 136, Potassium 5.0, Chloride 102, Carbon Dioxide 25.0, Anion Gap 9, BUN 22 H, Creatinine 1.49 H, Est GFR (MDRD) Af Amer 60, Est GFR (MDRD) Non-Af 50 L, BUN/Creatinine Ratio 14.8, Glucose 113 H, Calcium 8.6, Total Bilirubin 0.50, Triglycerides 88, Cholesterol 94, LDL Cholesterol 43, VLDL Cholesterol 18, HDL Cholesterol 33 L 09/22/20 04:07: Troponin I 17.100 H* Rhythm: Sinus rhythm EKG: Sinus rhythm; incomplete left bundle branch block pattern ECHO: 07/17/2020 Interpretation Summary The study was technically difficult. Contrast injection was performed. Moderately dilated left ventricle. Severe segmental systolic dysfunction (see wall motion). The estimated ejection fraction is 15 %. The left atrium is moderately enlarged. Mild diffuse mitral valve thickening. Moderate (2+) mitral valve insufficiency. Mild tricuspid valve insufficiency. Mild diffuse aortic valve thickening. Mild focal aortic valve calcification. Borderline to mildly enlarged aortic root. Right ventricular systolic pressure estimated to be 42 mmHg. There is evidence of diastolic dysfunction. Stress Test Report Date: 12/03/2017 Procedure: Pharmacologic stress nuclear imaging study Indications: Chest pain; CAD; WI; PCI; CABG; ICD Consent: Per the patient Procedure: The patient underwent pharmacologic (Regadenoson) evaluation with a peak heart rate of 96 beats per minute (62 predicted maximal heart rate) and a peak blood pressure of 122/70 mmHg. The baseline ECG demonstrated normal sinus rhythm, poor R-wave progression, ST/T-wave abnormality. The peak pharmacologic ECG demonstrated somatic/motion artifact with no obvious ECG changes. There were no cardiac dysrhythmias pretest, during pharmacologic infusion, or recovery. There was no complaint of chest discomfort during pharmacologic infusion or recovery. The examination was discontinued secondary to completion of protocol. Impression: 1. Pharmacologic (Regadenoson) evaluation 2. Peak pharmacologic ECG with no obvious ECG changes. 3. No cardiac dysrhythmias pretest, during pharmacologic infusion, or recovery 4. Nuclear images pending Myocardial perfusion imaging study: Technique: The patient was injected with 14.4 millicuries of technetium 99m Cardiolite and subsequently rest SPECT Cardiolite nuclear imaging was obtained in the horizontal long, vertical long, and short axis views. The patient underwent pharmacologic (Regadenoson) evaluation with a peak heart rate of 96 beats per minute (62 % percent predicted maximal heart rate) and a peak blood pressure of 122/70 mmHg. The patient was injected with 44.2 millicuries of technetium 99m Cardiolite and subsequently stress SPECT Cardiolite nuclear imaging was obtained in the horizontal long, vertical long, and short axis views. A gated Cardiolite study at peak stress was obtained. Interpretation: Rest and stress SPECT Cardiolite nuclear imaging status post realignment, normalization, and attenuation correction demonstrate the appearance of diminished absence of myocardial perfusion/tracer uptake in portions of the mid to distal anterior, mid to distal anterolateral, distal anteroseptal, distal inferior, and apical segments without significant change between rest and stress. There is diminished end systolic thickening and brightening in the aforementioned areas. The gated Cardiolite study demonstrates diminished myoca rdial thickening and inward wall motion in the aforementioned areas. The reported LVEF is 24 %. Impression: 1. Rest and stress SPECT Cardiolite nuclear imaging demonstrating myocardial perfusion changes compatible with previous myocardial injury/infarction involving portions of the mid to distal anterior, distal anterolateral, distal anteroseptal, distal inferior, and apical segments with no myocardial perfusion changes consider diagnostic for associated stress-induced myocardial ischemia. 2. The gated Cardiolite study reports an LVEF of 24%. Cardiac Cath: 07/17/2020 CONCLUSIONS Elevated Left Ventricular End Diastolic Pressure [place] Multivessel CAD HUMPHREY to LAD: previously documented as small, atretic, and occluded SVG to DX1: previously documented as occluded SVG to OM1: previous stent patent with subsequent mid 90 % stenosis and distal, pre bifurcation, hazy 75 % stenosis SVG to RCA: previously documented as occluded RECOMMENDATIONS Risk factor modification Medical therapy Referred for PCI at [facility] Case discussed at reviewed with Dr. Castrejon of interventional cardiology who subsequently recommended transfer to [facility] for PCI. He discussed the case with interventional cardiology at [facility]. DESCRIPTION OF PROCEDURE The patient arrived to the procedure lab. The risks and benefits of the procedure as well as a full description of our services here and current unavai lability of surgical backup were fully explained to the patient and/or their significant other prior to the catheterization. The Timeout was completed, verifying the correct patient and procedure. The patient's procedural site was prepped and draped in the usual fashion. Local anesthetic was given subcutaneously to right radial region with Lidocaine 2%. Using a modified Seldinger technique, arterial access was obtained via the right radial artery, a 6Fr sheath was inserted. Left Coronary Artery selective angiography was performed in multiple views using a 5 Fr. 4.0 Howard catheter. Saphenous Vein graft to the OM 1 selective angiography was performed in multiple views using a 5 Fr. JR 4 catheter. LV to AO pullback pressures were then recorded.The arterial sheath was pulled and a TR Band was applied for hemostasis. 12cc of air applied CORONARY ANGIOGRAPHY DOMINANCE: Right Dominant LEFT HEART ASSESSMENT Left Ventricular Ejection Fraction: Not assessed Elevated Left Ventricular End Diastolic Pressure LVEDP: 33 mmHg LEFT MAIN: Angiographically normal LEFT ANTERIOR DESCENDING ARTERY: PROX LAD: Moderate calcification MID LAD: is occluded with the mid to distal vessel filling late DIAGONAL 1: Proximal - is occluded with the distal vessel filling late and faintly CIRCUMFLEX ARTERY: Mild luminal irregularities MID CIRC: 50 % Stenosis RIGHT CORONARY ARTERY: not evaluated (previously documented as chronically occluded) GRAFTS: HUMPHREY graft to the Mid LAD previously documented as small, atretic, and occluded Saphenous Vein graft to the 1st Diagonal previously documented as occluded Saphenous Vein graft to the 1st OM previously placed stent is patent with subsequent mid 90 % stenosis and distal, pre bifurcation, hazy 75 % stenosis Saphenous Vein graft to the RCA previously documented as occluded PCI: 12?20 20: [facility]: PCI to the SVG to the OM: Details available at this time 12?4?20 19: [facility]: PCI to the SVG to the OM CT Surgery:?5?2009: [facility]: HUMPHREY to the LAD SVG to the diagonal branch SVG to the OM SVG to the RCA CXR: MPRESSION: No acute pulmonary changes. Stable interstitial prominence without new consolidation, focal atelectasis or a substantial pleural effusion. Stable normal cardiac size. Status post prior midline sternotomy with ICD in good position. Electronically Signed: Rupinder Levine MD at 21:[address] Scan: IMPRESSION: 1. No evidence of pulmonary embolus. 2. No aortic dissection or aneurysm. 3. Evidence of CABG procedure and cardiac pacemaker. 4. Emphysematous changes in lungs with old granulomatous disease. There is no acute pulmonary process. 5. Minimal calcified pleural plaque posteriorly at the right hemithorax. 6. Degenerative changes of the thoracic spine. 7. Small hiatal hernia Electronically Signed: Dawit Robins DO at 19:00 EST Assessment/Plan . Acute non-ST segment elevation WI The patient presents with findings compatible with acute non-ST segment elevation WI. There is concern based upon the patient's recent interruption, due to his mechanical fall and subdural hematoma, of his antiplatelet agents, as to the possibility of in-stent restenosis leading to this event. The patient has been monitored. His cardiac enzymes have increased. His ECG is a s noted. He has continued on medical therapy with approval to resume his antiplatelet/anticoagulant therapy by his [facility] neurosurgical team. He has continued with ongoing symptoms. Thus at the present time the patient will be recommended for further evaluation with diagnostic cardiac catheterization. The procedure and risks of been discussed with the patient and he is agreeable to this approach. 2. CAD status post PCI and CABG The patient has an extensive history of underlying CAD revascularization as described above. He has been treated medically. He presents with a recurrent acute non-ST segment elevation WI as described above. At the present time he will continue medical therapy as tolerated and proceed with further evaluation with diagnostic cardiac catheterization. 3. Ischemic mediated cardiomyopathy He has an underlying ischemic mediated cardiomyopathy. He has been on medical management. He has received revascularization therapy. He has an ICD in place. 4. Chronic systolic mediated CHF The patient has a history of chronic systolic mediated CHF. He does not appear to have acute symptoms at the moment. He will need to continue his medical management and proceed with his invasive evaluation as described above. 5. ICD He does have a dual-chamber ICD. He states it has not discharged. This can be reassessed as needed. 6. Hyperlipidemia He will continue medical therapy. 7. Hypertension He has blood pressure is low at this time. Thus his medications are being adjusted to compensate for this. 8. Diabetes mellitus He will continue medical management per internal medicine. 9. Chronic renal insufficiency He does have chronic renal sufficiency. This will have to be taken into consideration with his upcoming cardiac catheterization and IV contrast related procedure. However at the moment, based upon his ongoing cardiovascular clinical course it appears he does need to proceed with cardiac catheterization and he has been made aware of the possibility of IV contrast-induced nephropathy and the potential for worsening renal function. He acknowledged this information. 10. Subdural hematoma He has experienced a subdural hematoma. He has undergone evaluation as noted. Per the [facility] hospitalist team he has been given permission by his neurosurgical team to resume his antiplatelet and anticoagulant therapy. He will need to be monitored for any obvious worsening HURL SHAKER events. Comment: The patient's case has been discussed and reviewed with the patient as well as previously with Dr. Swanson and Dr. Dorantes of the [facility] hospitalist team as well as Dr. Coleman of the interventional cardiology section of the [facility]. This note was generated using a voice recognition system and there may be incorrect words, spelling or punctuation that were not noted when reviewing the office note prior to saving. Procedure Criteria Procedure Type: Elective COVID Risk Discussion: The surgeon/proceduralist and patient have discussed in detail the risk of exposure to and/or potential harm posed by the COVID-19 virus with having a surgery/procedure at this time versus the risk of delaying the surgery/procedure. It is not possible to know either the risk of delaying the surgery or procedure or chance of getting an infection with perfect accuracy, but a joint decision was made between the patient and the surgeon/proceduralist to proceed at this time with the scheduled surgery/procedure as indicated on the consent form.
[2020-09-22] MEDS: Morphine 2 MG/ML Syringe IV (09:01)
[2020-09-22] MEDS: Clopidogrel Bisulfate 300 MG Tablet PO (09:20)
[2020-09-22 09:23] LABS: Partial Thromboplast Time 62.3 Seconds (24.1-36.2)
[2020-09-22] MEDS: 0.9% Normal Saline 1,000 ML 100 ML IV (09:40)
--- NOTE | 2020-09-22 10:40 | NURSING ---
Pt to systems testing laboratory technician w/[facility].
--- NOTE | 2020-09-22 13:15 | EKG12_ITS ---
Test Reason : CP ADMIN Blood Pressure : / mmHG Vent. Rate : 121 BPM Atrial Rate : 121 BPM P-R Int : 158 ms QRS Dur : 124 ms QT Int : 314 ms P-R-T Axes : 066 033 209 degrees QTc Int : 445 ms Sinus tachycardia Left bundle branch block Abnormal ECG When compared with ECG of 20-SEP-2020 17:12, MANUAL COMPARISON REQUIRED, DATA IS UNCONFIRMED Confirmed by SHAVONNE LUNDBERG, LISA ([id number]), clinical editor COREY BRYANT ([id number]) on 09/25/2020 1:10:33 PM Referred By: AMBROSIO Confirmed By:LISA MARVIN MD
--- NOTE | 2020-09-22 13:20 | CL.I_ITS ---
Patient Name: LANNY WRIGHT Study Date: 09/22/2020 Performing: Rupesh Coleman MD Ht: 68.11 inches 173 cm : 1950 Wt: 185.19 lbs 84 kg Age: 70 Gender: male BSA: 1.98 PROCEDURE(S) PERFORMED [id number] AND/OR PTCA SINGLE GRAFT [id number] MECHANICAL THROMBECTOMY (ANGIOJET) 16624 CLINICAL PROFILE AND CO-MORBIDITIES Indications: ACS <= 24 hrs, Worsening Angina, LV Dysfunction, Cardiomyopathy Heart Failure: NYHA Class: 3, Newly Diagnosed: No, Heart Failure Type: Systolic Stress/Imaging Stress/Image Study Performed: No Angina Classification Anginal Classification w/in 2 Weeks: CCS IV CAD Presentations: Non-STEMI. CONCLUSIONS Successful PCI with thrombectomy and BMS to SVG to OM RECOMMENDATIONS DESCRIPTION OF PROCEDURE The patient arrived to the procedure lab. The risks and benefits of the procedure as well as a full d escription of our services here and current unavailability of surgical backup were fully explained to the patient and/or their significant other prior to the catheterization. The Timeout was completed, verifying the correct patient and procedure. The patient's procedural site was prepped and draped in the usual fashion. Local anesthetic was given subcutaneously to right radial region with Lidocaine 2% . Local anesthetic was given subcutaneously to right groin region with Lidocaine 2% Using a modified Seldinger technique,arterial access was obtained via the right femoral artery, a 4Fr sheath was inser blayne Left Coronary Artery selective angiography was performed in multiple views using a 4 Fr. JL5 cath eter. Saphenous Vein graft to the OM 1 selective angiography was performed in multiple views using a 4 Fr. JR4 catheter.The images were reviewed and options discussed. A decision was then made to proceed with an Intervention, IVUS or other adjunct procedure. Arterial sheath was exchanged for a 6 Fr Sheath. IM Guide catheter was inserted and engaged into the SVG to the OM 1. BMW Guide wire was advanced to the 1st OM graft. Priority One inserted Pass # 1 Priority One Removed Angiogram performed post thrombectomy. 3x20 Euphora Balloon catheter was inserte d. Balloon catheter was advanced across lesion in the graft to the OM 1. PTCA balloon inflated at 8 a tms for 12 secs. PTCA balloon inflated at 8 atms for 6 secs. PTCA balloon inflated at 8 atms for 6 se cs. PTCA balloon inflated at 8 atms for 8 secs. PTCA balloon inflated at 8 atms for 6 secs. PTCA ball oon inflated at 8 atms for 5 secs. PTCA balloon inflated at 8 atms for 5 secs. PTCA balloon inflated at 8 atms for 5 secs. PTCA balloon inflated at 8 atms for 5 secs. Angiogram performed post balloon di latation. Priority One inserted Pass # 2 Priority One Removed 2.5x12 Emerge Balloon catheter was inse rted. Balloon catheter was advanced across lesion in the graft to the OM 1. PTCA balloon inflated at 6 atms for 8 secs. PTCA balloon inflated at 6 atms for 6 secs. PTCA balloon inflated at 6 atms for 8 secs. PTCA balloon inflated at 6 atms for 8 secs. PTCA balloon inflated at 6 atms for 5 s ecs. Angiogram performed post balloon dilatation. Priority One inserted Pass # 3 Angiogram performed post thrombectomy. 2.5x12 Emerge Balloon catheter was reinserted PTCA balloon inflated at 8 atms for 6 secs. PTCA balloon inflated at 8 atms for 6 secs. PTCA balloon inflated at 8 atms for 6 secs. PTCA balloon inflated at 8 atms for 6 secs. PTCA balloon inflated at 8 atms for 6 secs. PTCA balloon infla blayne at 8 atms for 6 secs. PTCA balloon inflated at 8 atms for 6 secs. PTCA balloon inflated at 8 atms for 6 secs. PTCA balloon inflated at 8 atms for 6 secs. PTCA balloon inflated at 8 atms for 6 secs. PTCA balloon inflated at 8 atms for 6 secs. PTCA balloon inflated at 8 atms for 6 secs. PTCA balloon inflated at 8 atms for 6 secs. PTCA balloon inflated at 8 atms for 6 secs. PTCA balloon inflated at 8 atms for 6 secs. 3.5x15 Emerge Balloon catheter was inserted. Balloon catheter was adva nced across lesion in the graft to the OM 1. PTCA balloon inflated at 6 atms for 8 secs. PTCA balloon inflated at 6 atms for 6 secs. PTCA balloon inflated at 6 atms for 8 secs. Angiogram performed post balloon dilatation. PTCA balloon inflated at 12 atms for 32 secs. Angiogram performed post balloon di latation. 3.5x12 Rebel Bare Metal stent was inserted Bare Metal stent was advanced across the lesion in the first obtuse marginal graft proximal. Angiogram performed post stent deployment. Angiogram per formed post stent deployment. Contrast was injected through the sheath and the Right Iliac and Femora l artery were assessed for possible closure device. The arterial sheath was sutured in place and cap ped INTERVENTION INFORMATION LESION SITE: Saphaenous Vein Graft to the lesion location in the proximal graft segment Lesion Complexity: High/C, chronic total occlusion: No, lesion at bifurcation: No, thrombus present: Yes, lesion length: 100 mm, culprit lesion: Yes, Previously treated lesion: Yes, In-stent restenosis: Yes Pre Stenosis: 100 % Pre intervention LAURA flow: 0 PROCEDURE: Thrombectomy, Bare Metal Stent with pre dilatation. There was significant thrombus burden. We had to perform multiple runs with aspiration thrombectomy a nd angiojet thrombectomy catheters. PTCA was performed along the length of the vessel. BMS was placed in one location where there was residual thrombus/plaque despite multiple balloon inflation. BMS was placed as patient has recent subdural hematoma. Also, we are getting a surgical opinion to see he wi ll be a candidate for redo CABG. Post Stenosis: 0 % Post intervention LAURA flow: 3 Lesion Devices: Fernandez .014 BMW [place] Straight 190cm Cardinal 6 Fr IM 100cm Guide Catheter Terumo Priority One Aspiration Catheter Medtronic SC EUPHORA RX 3.0x20 BALLOON Renny Sci EMERGE MR 2.50x12 BALLOON Renny Sci 4F Spiroflex Angiojet Catheter Renny Sci EMERGE MR 3.50x15 BALLOON Renny Sci Rebel MR BMS 3.50x12 COMPLICATIONS No Complications PROCEDURE MEDICATIONS Fentanyl 25 mcg IV Versed 0.5 mg IV Oxygen: 3 L/min via nasal cannula Heparin 6000 unit(s) IV 09/22/2020 11:55:39 Lasix 40 mg IV 09/22/2020 11:56:19 Heparin 2000 unit(s) IV 09/22/2020 12:27:19 Nitro 200 mcg IC 09/22/2020 12:48:35 Nitro 200 mcg IC 09/22/2020 12:48:35 SUMMARY OF HEMODYNAMIC DATA Time AIR REST ECG 10:39:53 AO 96/73 (83) SA 11:36:01 Signed By Rupesh Coleman MD On 09/22/2020 13:19:39 Rupesh Coleman MD
--- NOTE | 2020-09-22 13:28 | EKG12_ITS ---
Test Reason : S/P PCI Blood Pressure : / mmHG Vent. Rate : 116 BPM Atrial Rate : 116 BPM P-R Int : 144 ms QRS Dur : 122 ms QT Int : 362 ms P-R-T Axes : 075 047 259 degrees QTc Int : 503 ms Sinus tachycardia Incomplete Left bundle branch block Abnormal ECG Confirmed by BERYL LUNDBERG, MICHELLE ([id number]), video editor LANDRY YARBROUGH ([id number]) on 09/28/2020 7:47:22 AM Referred By: DAVIDA DONAHUE Confirmed By:MICHELLE CORDOBA MD
--- NOTE | 2020-09-22 13:31 | CL.D_ITS ---
Patient Name: LANNY WRIGHT Study Date: 09/22/2020 Performing: Waldo Lay MD Ht: 68.11 inches 173 cm : 1950 Wt: 185.19 lbs 84 kg Age: 70 Gender: male BSA: 1.98 PROCEDURE(S) PERFORMED [id number]/COR/CABG [id number] AND/OR PTCA SINGLE GRAFT [id number] MECHANICAL THROMBECTOMY (ANGIOJET) [id number] CLINICAL PROFILE AND INDICATIONS Indications: ACS <= 24 hrs, Worsening Angina, LV Dysfunction, Cardiomyopathy Heart Failure: NYHA Class: 3, Newly Diagnosed: No, Heart Failure Type: Systolic Stress/Imaging Stress/Image Study Performed: No Angina Classification Anginal Classification w/in 2 Weeks: CCS IV CAD Presentations: Non-STEMI. CONCLUSIONS [place] Multivessel CAD HUMPHREY to LAD: previously documented as small, atretic, and occluded SVG to DX1: previously documented as occluded SVG to OM1: proximally occluded SVG to RCA: previously documented as occluded Left to Left collateral flow Left to Right collateral flow Case discussed / reviewed with Dr. Coleman of Interventional Cardiology RECOMMENDATIONS Risk factor modification Medical therapy Referred for immediate PCI DESCRIPTION OF PROCEDURE The patient arrived to the procedure lab. The risks and benefits of the procedure as well as a full d escription of our services here and current unavailability of surgical backup were fully explained to the patient and/or their significant other prior to the catheterization. The Timeout was completed, verifying the correct patient and procedure. The patient's procedural site was prepped and draped in the usual fashion. Local anesthetic was given subcutaneously to right radial region with Lidocaine 2% . Local anesthetic was given subcutaneously to right groin region with Lidocaine 2%. Using a modified Seldinger technique, arterial access was obtained via the right femoral artery, a 4Fr sheath was ins erted Left Coronary Artery selective angiography was performed in multiple views using a 4 Fr. JL5 c atheter. Saphenous Vein graft to the OM 1 selective angiography was performed in multiple views using a 4 Fr. JR4 catheter.Contrast was injected through the sheath and the Right Iliac and Femoral artery were assessed for possible closure device.The arterial sheath was sutured in place and capped CORONARY ANGIOGRAPHY DOMINANCE: Right Dominant LEFT HEART ASSESSMENT Left Ventricular Ejection Fraction: Not assessed LEFT MAIN: Angiographically normal LEFT ANTERIOR DESCENDING ARTERY: PROX LAD: Moderate calcification MID LAD: is occluded with the mid to distal vessel filling late and faintly from bridging collaterals and left to left collaterals DIAGONAL 1: Proximal - is occluded with the distal vessel filling late and faintly CIRCUMFLEX ARTERY: Mild luminal irregularities MID CIRC: 50 % Stenosis RIGHT CORONARY ARTERY: not evaluated (previously documented as chronically occluded) Distal RCA system: filling partially from left to right collateral flow GRAFTS: HU[place]HREY graft to the Mid LAD previously documented as small, atretic, and occluded Saphenous Vein graft to the 1st Diagonal previously documented as occluded Saphenous Vein graft to the 1st OM is totally occluded Saphenous Vein graft to the RCA previously documented as occluded COLLATERAL FLOW: Collateral flow from Left to Left Collateral flow from Left to Right COMPLICATIONS No Complications PROCEDURE MEDICATIONS Fentanyl 25 mcg IV Versed 0.5 mg IV Oxygen: 3 L/min via nasal cannula Heparin 6000 unit(s) IV 09/22/2020 11:55:39 Lasix 40 mg IV 09/22/2020 11:56:19 Heparin 2000 unit(s) IV 09/22/2020 12:27:19 Nitro 200 mcg IC 09/22/2020 12:48:35 Nitro 200 mcg IC 09/22/2020 12:48:35 SUMMARY OF HEMODYNAMIC DATA Time AIR REST ECG 10:39:53 AO 96/73 (83) SA 11:36:01 Signed By Waldo Lay MD On 09/22/2020 13:30:31 Waldo Lay MD
--- NOTE | 2020-09-22 13:55 | NURSING ---
rn remains at bedside since arrival from phlebotomy lab assistant at 1330. pt rhoncherous, almost continuously coughing. pressure being held at groin site by rn during [id number] spells. pt also nauseated and dry heaving. no emesis, just coughing up thick sputum. called for breathing treatment, pt receiving it now.
[2020-09-22] MEDS: fentaNYL 100 MCG/2 ML Ampul 25 MCG IV (14:43)
[2020-09-22] MEDS: proCHLORPERazine 10 MG/2 ML Vial 5 MG IV (14:46)
[2020-09-22 15:01] LABS: Bedside Glucose 123 mg/dL (70-110)
--- NOTE | 2020-09-22 16:22 | NURSING ---
notified pt's & [facility] that pt has left [facility]. Nurses station phone # and bed # given to pt's .
--- NOTE | 2020-09-22 16:40 | PCM.DC.SUM ---
Discharge Date and Diagnosis - Problem List Patient Problems: Active and Suspected Problems (Last Reviewed 07/16/20 @ 15:[address] Ravin Ortega DO) Chest pain (Acute) Cardiac enzymes elevated (Acute) NSTEMI (non-ST elevated myocardial infarction) (Acute) Subdural hematoma (Acute) Date of Admission: 09/21/20 Date of Discharge: 09/22/20 - Primary Discharge Diagnosis Acute Problems: Active Problems (Last Reviewed 07/16/20 @ 15:[address] Ravin Ortega DO) #1 non-STEMI #2 occluded saphenous venous graft to obtuse marginal 1 #3 ischemic cardiomyopathy #4 chronic kidney disease stage III secondary to type 2 diabetes #5 type 2 diabetes #6 hyperlipidemia #7 chronic obstructive pulmonary disease - Secondary Discharge Diagnosis Chronic Problems: Chronic Problems (Last Reviewed 07/16/20 @ 15:[address] Ravin Ortega DO) Smoking greater than 30 pack years (Chronic) Appropriate for low-dose CT lung screening due January 2021 History of left heart catheterization (Chronic 07/17/20) LEFT MAIN: Angiographically normal;LEFT ANTERIOR DESCENDING ARTERY: PROX LAD: Moderate calcification MID LAD: is occluded with the mid to distal vessel filling late, DIAGONAL 1: Proximal - is occluded with the distal vessel filling late and faintly; CIRCUMFLEX ARTERY: Mild luminal irregularities, MID CIRC: 50 % Stenosis; RIGHT CORONARY ARTERY: not evaluated (previously documented as chronically occluded); GRAFTS: HUMPHREY graft to the Mid LAD previously documented as small, atretic, and occluded; Saphenous Vein graft to the 1st Diagonal previously; documented as occluded; Saphenous Vein graft to the 1st OM previously placed stent is patent with subsequent mid 90 % stenosis and distal, pre bifurcation, hazy 75 % stenosis; Saphenous Vein graft to the RCA previously documented as occluded - per cardiac cath 07/17/20 - LVEF: by LV gram 15-20 %; [place] Multivessel CAD; Occluded [place] mid LAD. Occluded [place] proximal RCA. Occluded SVG to DIAG. Occluded SVG to RCA. Occluded HUMPHREY to LAD. Severe 85% stenosis in last remaining vessel of SVG to LCX with widely patent SVG stents. Severe LV dysfunction. Referred for immediate PCI: Will tx to [facility] for high risk PCI to last remaining vessel of SVG to OM. 06/29/19 per DANA @ [facility] Hypoxia, sleep related (Chronic) ARIADNA (obstructive sleep apnea) (Chronic) COPD (chronic obstructive pulmonary disease) (Chronic) FEV1 64% of predicted Obesity (BMI 30.0-34.9) (Chronic) Nicotine dependence (Chronic) Gout (Chronic) Degenerative cervical disc (Chronic) Chronic back pain (Chronic) Presence of automatic implantable cardioverter-defibrillator (Chronic) H/O coronary artery bypass surgery (Chronic ~2008) HUMPHREY-LAD, SVG-D1, SVG-OM Chronic renal failure, stage 3 (moderate) (Chronic) Chronic systolic (congestive) heart failure (Chronic) Stented coronary artery (Chronic ~12/2016) has had 7 stents as of 06/15/17 Ischemic cardiomyopathy (Chronic) 25% ejection fraction in November 2016 V-tach (Chronic) has an AICD Benign essential hypertension (Chronic) Gastroesophageal reflux disease (Chronic) Hyperlipidemia (Chronic) Type 2 diabetes mellitus (Chronic) Morbid obesity (Chronic) CAD (coronary artery disease) (Chronic) Hospital Course and Treatment Operations: None Procedures: Cardiac catheterization - With bare-metal stent placement in a saphenous venous graft to obtuse marginal branch Summary of Care Provided: The patient is a 70 year old M was seen in the emergency room at [facility] with a chief complaint of chest pain. Patient has a long history of coronary artery disease. EKG was obtained that showed a sinus tachycardia at a rate of 123 with a left bundle branch block pattern, chest x-ray was obtained and was negative for acute cardiac disease, CBC was remarkable for leukocytosis of 11.5, creatinine was elevated 1.69, troponin was slightly elevated at 0.098. Patient was given aspirin and Zofran, he was admitted to ICU for chest pain and elevated troponin, patient's cardiac enzymes were cycled and they elevated, it was felt he would benefit from undergoing another cardiac catheterization, on 09/22/2020, patient underwent a cardiac catheterization and there is noted to be a thrombus in the saphenous venous graft to the obtuse marginal branch, this was removed and a nondrug-eluting stent was placed in the area. It was recommended that the patient be transferred [facility] for further intervention (such as a bypass procedure)-at first the patient did not want to be transferred but then he relented and was decided that he did want to be transferred. I talked at length with his on the telephone about the cardiac catheterization and stent placement so that she knew what had been done, she stated that the patient continues to smoke at home and that he does not listen to her about stopping smoking. On 09/22/2020, patient was seen and examined: On examination he appeared in good health and spirits. Vital signs as documented. Skin warm and dry and without overt rashes. Neck without JVD, neck was supple, trachea midline, thyroid was normal. Lungs clear bilaterally, normal air movement was noted. Heart exam notable for regular rhythm, normal sounds and absence of murmurs, rubs or gallops. Abdomen unremarkable and without evidence of organomegaly, masses, or abdominal aortic enlargement. Bowel sounds are present, abdomen is not distended. Extremities nonedematous, no cyanosis was noted, no clubbing was noted. Neuro: Cranial nerves II through XII are grossly intact, no focal motor deficits were noted, sensation to light touch and pinprick intact, motor exam 5/5 throughout. Psych: Patient is alert and oriented x3, he does not appear anxious or depressed, he does not appear agitated. On 09/22/2020, patient was transferred to [facility] for continuing care. Patient was stable at the time of discharge for transport. Patient Problems: Active and Suspected Problems (Last Reviewed 07/16/20 @ 15:[address] Ravin Ortega, DO) Chest pain (Acute) Cardiac enzymes elevated (Acute) NSTEMI (non-ST elevated myocardial infarction) (Acute) Subdural hematoma (Acute) - Physical Exam Vitals/I&O's: Vital Signs Temp Pulse Resp BP Pulse Ox 97.4 F L 108 H 18 87/53 L 98 09/22/20 13:30 09/22/20 15:30 09/22/20 15:30 09/22/20 15:30 09/22/20 15:30 Oxygen Flow Rate (L/min) 3 Oxygen Delivery Method Nasal Cannula Weight: 84.3 kg Body Mass Index (BMI) 28.2 Finger Stick Blood Glucose 195 Intake and Output for Last 24 Hours 09/20/20 09/21/20 09/22/20 23:59 23:59 23:59 Intake Total 1376.8 / 1376.8 Output Total 700 / 700 Balance 676.8 / 676.8 Microbiology Past 72 Hours 09/21/20 20:45 Mucosa - Nasopharyngeal SARS-CoV-2 Antigen (Rapid) - Final Laboratory Results 09/21/20 20:36: WBC 11.5 H, RBC 4.51 L, Hgb 13.7, Hct 43.0, MCV 95.3 H, MCH 30.4, MCHC 31.9 L, RDW Std Deviation 49.3 H, RDW Coeff of Maggie 14.1, Plt Count 242, MPV 10.0, Immature Gran % (Auto) 0.400, Neut % (Auto) 86.5 H, Lymph % (Auto) 7.6 L, Calhoun % (Auto) 4.3, Eos % (Auto) 0.9, Baso % (Auto) 0.3, Absolute Neuts (auto) 10.0 H, Absolute Lymphs (auto) 0.87, Nucleated RBC % 0 09/21/20 20:36: PT 13.2, INR 1.0, APTT 33.3 09/21/20 20:36: Sodium 136, Potassium 5.0, Chloride 101, Carbon Dioxide 25.0, Anion Gap 10, BUN 20 H, Creatinine 1.69 H, Estim Creat Clear Calc 39.91, Est GFR (MDRD) Af Amer 52 L, Est GFR (MDRD) Non-Af 43 L, BUN/Creatinine Ratio 11.8, Glucose 146 H, Calcium 9.3, Total Bilirubin 0.70, AST 21, ALT 19, Alkaline Phosphatase 96, Troponin I 0.098 H, Total Protein 7.9, Albumin 4.1, Globulin 3.8, Albumin/Globulin Ratio 1.1 09/21/20 20:36: Magnesium 1.8 09/22/20 00:54: Troponin I 5.080 H* 09/22/20 04:07: WBC 7.5, RBC 4.29 L, Hgb 13.0, Hct 40.9, MCV 95.3 H, MCH 30.3, MCHC 31.8 L, RDW Std Deviation 49.1 H, RDW Coeff of Maggie 14.0, Plt Count 192, MPV 9.9, Immature Gran % (Auto) 0.300, Neut % (Auto) 75.5 H, Lymph % (Auto) 16.4 L, Calhoun % (Auto) 7.4, Eos % (Auto) 0.1, Baso % (Auto) 0.3, Absolute Neuts (auto) 5.6, Absolute Lymphs (auto) 1.22, Nucleated RBC % 0 09/22/20 04:07: Sodium 136, Potassium 5.0, Chloride 102, Carbon Dioxide 25.0, Anion Gap 9, BUN 22 H, Creatinine 1.49 H, Estim Creat Clear Calc 45.27, Est GFR (MDRD) Af Amer 60, Est GFR (MDRD) Non-Af 50 L, BUN/Creatinine Ratio 14.8, Glucose 113 H, Calcium 8.6, Total Bilirubin 0.50, AST 141 H, ALT 24, Alkaline Phosphatase 90, Total Protein 7.1, Albumin 3.6, Globulin 3.5, Albumin/Globulin Ratio 1.0, Triglycerides 88, Cholesterol 94, LDL Cholesterol 43, VLDL Cholesterol 18, HDL Cholesterol 33 L 09/22/20 04:07: Troponin I 17.100 H* 09/22/20 08:50: APTT 62.3 H 09/22/20 13:36: POC Glucose 123 H Home Medications: Medications to take at Discharge Albuterol Aerosols [Ventolin Aerosols] 2.5 mg INHALATION Q4H PRN PRN 09/11/20 Allopurinol [Zyloprim] 300 mg PO DAILY 09/11/20 Carvedilol [Coreg] 6.25 mg PO BID 09/11/20 Glimepiride [Amaryl] 1 mg PO DAILY 09/11/20 Ipratropium/Albuterol Sulfate [Iprat-Albut 0.5-3(2.5) mg/3 ml] 3 ml IH Q6H PRN 09/11/20 Levetiracetam [Keppra] 500 mg PO DAILY 09/11/20 Levothyroxine [Synthroid] 25 mcg PO DAILY 09/11/20 Nicotine [Nicoderm Cq (PBKC)] 14 mg TRANSDERM. DAILY 09/11/20 Nitroglycerin [Nitrostat] 0.4 mg SL Q5M PRN 09/11/20 Oxycodone HCl/Acetaminophen [Endocet 7.5-325 mg Tablet] 1 ea PO Q6H PRN 09/11/20 Pantoprazole Sodium [Protonix] 40 mg PO DAILY 09/11/20 Rosuvastatin Calcium [Crestor] 40 mg PO QHS 09/11/20 Sacubitril/Valsartan 24/26 mg [Entresto 24 mg-26 mg Tablet] 1 ea PO BID 09/11/20 Umeclidinium Brm/Vilanterol Tr [Anoro Ellipta 62.5-25 Mcg INH] 1 ea IH DAILY 09/11/20 Furosemide [Lasix] 40 mg PO BID #10 tab 09/20/20 Primary Care Physician: Juan De La Vega III, MD [Primary Care Provider] - Disposition: Acute care Hospital Minutes spent on discharge:: 31 Patient Condition:: Stable Medical Necessity - Tobacco Use Smoking Status: Current every day smoker Tobacco Use: Cigarettes Meaningful Use Info Meaningful Use Diagnoses (Choose all that apply): AMI - AMI/Post PCI/Angioplasty Aspirin given w/in 24hrs of arrival?: Yes ASA at discharge?: Yes Antiplatelet Therapy at Discharge:: Yes Statins at discharge?: No Reason statins not ordered:: Allergy - Patient transported to [facility] Travis/ARB at discharge?: No Reason Travis/ARB not ordered:: Hypotension Beta Sina at discharge?: No Reason Beta Sina not ordered:: Hypotension Done w/ Acute CA measure.: Yes Documented LVEF (%): 15 Inpatient E&M: [id number] Disch Hosp
--- NOTE | 2020-09-24 06:30 | CRPHASE1 ---
Patient Communication Former Patient:: Phase I - 05/2017, Phase II - 05/2017 Choice Letter Given to Patient:: Yes - Given at Discharge by RN Guide to Cardiac Rehab Given by ICU Staff Prior to Discharge: Yes - Given to patient at discharge by RN Guide to Cardiac Rehab Mailed to Patient by CR Staff:: Yes - Given to patient at discharge by RN Patient Contacted Post Discharge by CR Staff:: Yes - Contacted by CR staff 09/24/2020 PHII Cardiac Rehab Referral:: [facility] Cardiac Rehabilitation Info Cardiac Rehabilitation Program Information: Cardiac Rehabilitation is important for patients like you who are recovering from a heart problem. Cardiac rehabilitation programs are recognized as integral to the continued care of the patient with coronary heart disease. The cardiac rehabilitation program is designed to optimize a patient's physical, psychological, and social functioning. Health healthcare advisory services manager work in cardiac rehabilitation programs and assist you with getting the treatments you need to get stronger and healthier - like exercise, healthy eating habits, and medications. Cardiac rehabilitation has been show to help people with heart problems live longer and have better life enjoyment than people who do not go to cardiac rehabilitation. Please contact the Cardiac Rehabilitation Program at [facility] at in two weeks if you have not heard from them.
--- NOTE | 2020-09-24 06:32 | CRPH1.INSTRU ---
General Education CAD and cardiac anatomy and function:: Patient communicates acknowledgment Explanation of diagnoses and procedures:: Patient communicates acknowledgment Sign/Symptoms of CT:: Patient communicates acknowledgment Antiplatelet therapy: Patient communicates acknowledgment Proper use of NTG-SL: Patient communicates acknowledgment Emergency procedures and activation of EMS: Patient communicates acknowledgment Compliance of all prescribed medications: Patient communicates acknowledgment - Discused Risk factors with patient via telephone Dyslipidemia Patient Dyslipidemia Risk Factors Are:: Total Cholesterol, Triglycerides, HDL, LDL Recommendations Include:: Lipid profile provided, Reviewed NCEP/ATP guidelines, Therapeutic Lifestyle Change dietary guidelines Dyslipidemia Response Code:: Patient communicates acknowledgment Hypertension Recommendations Include:: Maintain BP <130/85, BP <130/80 if diabetic, DASH dietary guidelines, Decrease/maintain normal body weight Hypertension:: Patient communicates acknowledgment Heart Disease Patient Heart Disease Risk Factors Are:: Family history of heart disease < 65 years old, Previous cardiac event Recommendations Include:: Educated family members of their risk, Educated family members of importance of prevention of heart disease Heart Disease Response Code:: Patient communicates acknowledgment Diabetes Patient Diabetes Risk Factors Are:: Elevated blood sugars Recommendations Include:: Maintain fasting blood sugars 70-110 md/dL - Glucose 113, Maintain HgbA1c of 6% or less - HbA1c 5.9%, Monitor blood sugar as prescribed, Diabetic dietary guidelines, Decrease/maintain body weight Diabetes:: Patient communicates acknowledgment
== END 2020-09-22 16:15 | disposition short-term general hospital (02) | DRG 246 ==
LOC: ED 22:37 → PCU 23:01 → ICU 09-22 06:14
PROVIDERS: Admitting Provider Family Medicine; Emergency Provider Emergency Medicine; PCP Family Medicine; Visit Provider Internal Medicine
DX: I21.4 Non-ST elevation (NSTEMI) myocardial infarction (principal); S06.5X9A Traumatic subdural hemorrhage with loss of consciousness of unspecified duration, initial encounter; N18.6 End stage renal disease; I13.2 Hypertensive heart and chronic kidney disease with heart failure and with stage 5 chronic kidney disease, or end stage renal disease; I50.22 Chronic systolic (congestive) heart failure; I25.810 Atherosclerosis of coronary artery bypass graft(s) without angina pectoris; J96.11 Chronic respiratory failure with hypoxia; I25.5 Ischemic cardiomyopathy; E11.22 Type 2 diabetes mellitus with diabetic chronic kidney disease; E78.5 Hyperlipidemia, unspecified; J44.9 Chronic obstructive pulmonary disease, unspecified; E03.9 Hypothyroidism, unspecified; G47.33 Obstructive sleep apnea (adult) (pediatric); I44.7 Left bundle-branch block, unspecified; K21.9 Gastro-esophageal reflux disease without esophagitis; F17.210 Nicotine dependence, cigarettes, uncomplicated; Z95.810 Presence of automatic (implantable) cardiac defibrillator; Z79.890 Hormone replacement therapy; Z80.1 Family history of malignant neoplasm of trachea, bronchus and lung; Z82.49 Family history of ischemic heart disease and other diseases of the circulatory system; Z82.5 Family history of asthma and other chronic lower respiratory diseases; Z99.2 Dependence on renal dialysis
CPT/HCPCS: 36415; 70450; 71045; 71275; 80053; 80061; 82962; 83735; 83880; 84484; 85025; 85610; 85730; 87426; 92937; 92973; 93005; 93455; 94640; 99152; 99153; 99251; 99285; 99406; C1757; J7030; J7050; Q9967; A4216; C1725; C1769; C1876; C1887; C1894; G0463; J1327; J1940; J2405

== ENCOUNTER 2020-09-29 11:07 | Emergency (ER) | payer MEDICARE, MEDICAID, SELFPAY ==
[2020-09-21 23:36] VITALS: BMI 28.2
[2020-09-29] VITALS (14 sets, daily range): BP systolic 60–84; BP diastolic 43–69; PULSE 45–94; RESP 12–20; TEMP 36.2; O2SAT 94–100; BMI 28.1
--- NOTE | 2020-09-29 11:43 | ED.DCSUM_ITS ---
History of Present Illness Chief Complaint: Hypotension Informant: Patient Narrative: 70-year-old male presenting with low blood pressure. Patient states that he was recently hospitalized at [facility] for episodes of chest pain. He states that while he was in the hospital for 5 days they did not do a cardiac catheterization. Patient is on nitroglycerin for his chest pain. Patient has history of cardiac disease and stents. Patient is not presenting with chest pain today. He was told that if his blood pressure was low she is come to the emergency room. Patient does state that he is fatigued and has not slept very well in the last 5 days. He denies fever, cough, shortness of breath. He denies leg pain or swelling. Past Medical History - Allergies and Home Meds Allergies/Adverse Reactions: Allergies chlorpromazine HCl [From Thorazine] Allergy (Severe, Verified 09/29/20 11:09) Hives PER PATIENT tramadol HCl [From Ultram] Allergy (Severe, Verified 09/29/20 11:09) Hives PER PATIENT codeine Allergy (Intermediate, Verified 09/29/20 11:09) Hives promethazine [From Phenergan] Allergy (Verified 09/29/20 11:09) confusion atorvastatin Adverse Reaction (Intermediate, Verified 09/29/20 11:09) LEG PAIN/CRAMPS LEG PAIN/CRAMPS cyclobenzaprine [From Flexeril] Adverse Reaction (Verified 09/29/20 11:09) Upset Stomach metformin Adverse Reaction (Verified 09/29/20 11:09) Upset Stomach naproxen Adverse Reaction (Verified 09/29/20 11:09) Upset Stomach Primary Care Physician: Juan De La Vega III, MD [Primary Care Provider] - Prior records reviewed: Yes Past Medical History: - - GERD, hyperlipidemia, diabetes type 2, CAD, hypertension, obstructive sleep apnea, gout, CKD stage IV. Surgical History: angioplasty - stents x 10, coronary bypass surgery, - - AICD placement, back surgery x 2, hernia repair, PCI. Smoking Status: Former smoker - Family History Maternal Family History: Family History (Last Reviewed 07/16/20 @ 15:[address] Ravin Ortega DO) Brother CAD (coronary artery disease) Myocardial infarction Sudden cardiac Mother Cancer Hypertension Father Cancer COPD (chronic obstructive pulmonary disease) Family History: Reports: Cancer - lung, Hypertension, - - Patient notes a paternal family history of chronic lung disease, lung cancer with history of tobacco use. Paternal Family History: Family History (Last Reviewed 07/16/20 @ 15:[address] Ravin Ortega DO) Brother CAD (coronary artery disease) Myocardial infarction Sudden cardiac Mother Cancer Hypertension Father Cancer COPD (chronic obstructive pulmonary disease) Family History: Reports: Cancer, Heart Disease Review of Systems General: Reports: Malaise. Denies: Chills, Fever, Sweats Eyes: Denies: Visual changes - bilaterally, Diplopia ENT: Denies: Rhinorrhea, Sore throat Cardiovascular: Denies: Chest pain, Palpitations Respiratory: Reports: Dyspnea Gastrointestinal: Denies: Abdominal pain, Nausea, Vomiting, Diarrhea, Melena, Hematochezia Genitourinary: Denies: Dysuria, Hematuria, Frequency Musculoskeletal: Denies: Back pain, Extremity Pain Skin: Denies: Rash, Wounds Neurological: Denies: Headache, Weakness, Numbness Psych: Denies: Depression, Anxiety, Suicidal thoughts, Suicidal ideations, -, - Physical Exam Vital Signs/Narrative: Vital Signs Temp Pulse Resp BP Pulse Ox 09/29/20 11:09 97.2 F L 45 L 14 81/44 L 98 Inital Vital Signs reviewed: Yes General: Well nourished, No Acute Distress Head: Normocephalic, Atraumatic Eyes: Perrl, EOMI ENT: Moist mucous membranes, Nasal congestion Cardiovascular: Regular rate, Regular rhythm Respiratory: No distress, CTA bilaterally Extremities: Nontender, No edema Skin: Normal color, No rash Neurological: Alert, Oriented x3, Cranial nerves II-XII grossly intact Psychological: Normal affect, Normal Mood Diagnostic/Tx/Re-eval Clinical Impression(s) from Imaging Studies Chest X-Ray 09/29/20 11:44 IMPRESSION: Mild hazy density in the mid and lower lung bui bilaterally. Question pulmonary edema. Electronically Signed: Yunier Peacock MD at 12:43 EST , Service support , Brain CT 09/29/20 11:53 IMPRESSION: No definite acute abnormality. Persistent mild to moderate size subacute left subdural hematoma slightly smaller. Electronically Signed: Yunier Peacock MD at 12:37 EST , Service support , Laboratory Data 09/29/20 09/29/20 09/29/20 11:49 11:49 11:49 WBC 8.8 RBC 4.15 L Hgb 12.2 L Hct 38.7 L MCV 93.3 MCH 29.4 MCHC 31.5 L RDW Std Deviation 48.7 H RDW Coeff of Maggie 14.2 Plt Count 228 MPV 10.7 Immature Gran % (Auto) 0.300 Neut % (Auto) 67.5 Lymph % (Auto) 18.3 L [place] % (Auto) 11.6 H Eos % (Auto) 1.8 Baso % (Auto) 0.5 Absolute Neuts (auto) 6.0 Absolute Lymphs (auto) 1.61 Nucleated RBC % 0 Sodium 133 L Potassium 3.5 Chloride 93 L Carbon Dioxide 30.0 Anion Gap 10 BUN 49 H Creatinine 3.00 H Estim Creat Clear Calc 22.48 Est GFR (MDRD) Af Amer 27 L Est GFR (MDRD) Non-Af 22 L BUN/Creatinine Ratio 16.3 Glucose 101 Calcium 8.6 Troponin I 1.950 H* B-Natriuretic Peptide 490.9 H - Medical Decision Making 70-year-old male presenting with hypotension and slight shortness of breath. Patient was admitted to [facility] previously and transferred to [facility]. Patient notes that he was in the hospital for 5 days. He states they did nothing for me. After speaking with his it appears that his blood pressure has been in the 70s systolic at home and they had originally been trying to keep his pressures low. While he was at [facility] his states that they tried to keep him up to 100 systolic. Patient's also expresses concern that patient cannot take care of himself and he did not any home health care set up for him. She cannot care for him and he has been sleeping on the couch. Patient had EKG performed on arrival which shows sinus rhythm at [address] changes as interpreted by myse lf. Chest x-ray one-view portable shows mild pulmonary edema is interpreted by myself. Radiology does agree. White blood cell count 8.8, hemoglobin 12.2, platelets 228. Troponin is 1.95, BNP 490. Patient's troponin has come down considerably from his previous visit. He is not complaining of any chest pain although he is hypotensive. He was given IV fluids without response. Initially the patient states he did not want to go to [facility] however the hospitalist did not feel comfortable keeping him here at [facility] given his recent transfer by cardiology and they have met the limits of the cardiac capabilities here. After speaking to his she was able to convince him to go. Patient will be transported in stable condition. Impression: 1. Hypotension 2. Elevated troponin 3. CHF ED Disposition - Plan for ED Patient: Referrals: Juan De La Vega III, MD [Primary Care Provider] -
--- NOTE | 2020-09-29 11:44 | RAD_ITS ---
STUDY: X-RAY CHEST REASON FOR EXAM: Male, 70 years old. chest pain TECHNIQUE: Single AP portable view of the chest. COMPARISON: 09/21/2020. FINDINGS: Normal lung volumes. Mild diffuse hazy density of both mid and lower lung bui suggestive of mild pulmonary edema. No gross effusions. There is mild cardiac enlargement. Previous CABG. Pacemaker is seen with leads terminating in the right atrium and right ventricle.. Normal mediastinum and serjio. Normal visualized pulmonary arteries. Normal visualized aortic arch and descending thoracic aorta. Normal visualized thoracic spine. Normal visualized ribs, clavicles, and shoulders. There is no demonstrated abnormality of the visualized soft tissue structures of the upper abdomen. RAD/Chest 1 View (Portable) IMPRESSION: Mild hazy density in the mid and lower lung bui bilaterally. Question pulmonary edema. Electronically Signed: Yunier Peacock MD at 12:43 EST , Service support ,
--- NOTE | 2020-09-29 11:44 | EKG12_ITS ---
Test Reason : Blood Pressure : / mmHG Vent. Rate : 084 BPM Atrial Rate : 084 BPM P-R Int : 150 ms QRS Dur : 140 ms QT Int : 448 ms P-R-T Axes : 056 000 160 degrees QTc Int : 529 ms Sinus rhythm with Premature atrial complexes with Aberrant conduction Non-specific intra-ventricular conduction block Nonspecific T wave abnormality Abnormal ECG Confirmed by BERYL LUNDBERG, MICHELLE ([id number]), map editor COREY BRYANT ([id number]) on 10/02/2020 12:33:54 PM Referred By: ERIN Confirmed By:MICHELLE CORDOBA MD
--- NOTE | 2020-09-29 11:53 | CT_ITS ---
STUDY: CT BRAIN WITHOUT CONTRAST REASON FOR EXAM: Male, 70 years old. head injury RADIATION DOSAGE (If Supplied By Facility): CTDIvol = ( 44.99 ) mGy, DLP = ( 846.73 ) mGycm TECHNIQUE: Transaxial CT imaging of the brain was performed without administration of intravenous contrast material. Individualized dose optimization techniques were used for this CT. COMPARISON: 09/22/2020. That exam showed subdural hematoma. FINDINGS: Normal soft tissue structures. Normal calvarium. Mildly improved mixed density subacute left subdural hematoma, primarily over the left frontal lobe. Greatest thickness now approximately 1.3 cm on axial image 32 versus 1.4 cm previously. Mild mass effect on the underlying left cerebral hemisphere. No definite acute bleeding. Stable mild diffuse atrophy and white matter disease. No midline shift. There is no intracranial hemorrhage. There are no findings of an acute ischemic infarction. Normal visualized paranasal sinuses. CT/Brain/Head without Contrast IMPRESSION: No definite acute abnormality. Persistent mild to moderate size subacute left subdural hematoma slightly smaller. Electronically Signed: Yunier Peacock MD at 12:37 EST , Service support ,
[2020-09-29 12:04] LABS: Absolute Lymphocyte Count 1.61 X10^3/uL (0.83-4.51); Basophil# 0.04 X10^3/uL; Basophil% 0.5 % (0-1); Eosinophil# 0.16 X10^3/uL; Eosinophils% 1.8 % (0-5); Hematocrit 38.7 % (40-54); Hemoglobin 12.2 g/dL (13.0-16.5); Lymphocyte # 1.61 X10^3/ul (4.0); Lymphocyte % 18.3 % (19-41); Mean Corp Hgb Conc 31.5 g/dL (32-36); Mean Corpuscular Hgb 29.4 pg (27.0-32.0); Mean Corpuscular Volume 93.3 fL (80-94); Mean Platelet Vol. 10.7 fl (6.2-12.0); Monocyte# 1.02 X10^3/uL; Monocyte% 11.6 % (0-10); NRBC Flagged by Analyzer 0 % (0-5); Neutrophil # 5.96 X10^3/uL (2.7-7.7); Neutrophil % 67.5 % (47-70); Platelet Count 228 K/mm3 (150-450); RBC Distribution Width CV 14.2 % (11.6-14.6); RBC Distribution Width SD 48.7 fl (35.1-43.9); Red Blood Count 4.15 M/mm3 (4.6-6.2); White Blood Count 8.8 K/mm3 (4.4-11.0)
--- NOTE | 2020-09-29 12:12 | ED.RN ---
2L O2 APPLIED DUE TO THE PATIENT'S SPO2 DROPPING WHILE ASLEEP. PATIENT HAS A HISTORY OF SLEEP APNEA. MD ALSO NOTIFIED OF LOW BPs. WILL CONTINUE TO MONITOR.
[2020-09-29] MEDS: 0.9% Normal Saline 1,000 ML 999 ML IV (12:15)
[2020-09-29 12:18] LABS: BNP,B-Type NATRIURETIC PEPTIDE 490.9 pg/mL (0-100)
[2020-09-29 12:31] LABS: Anion Gap 10 (5-15); BUN 49 mg/dL (7-18); BUN/Creat Ratio 16.3 RATIO (10-20); Calcium,Total 8.6 mg/dL (8.5-10.1); Chloride 93 mmol/L (98-107); EST Glomerular Filtration Rate 22 mL/min (>60); Est Glom Filt Rate - Afr Amer 27 mL/min (>60); Estimated Creatinine Clearance 22.48 ml/min; Glucose 101 mg/dL (74-106); Potassium 3.5 mmol/L (3.5-5.1); Sodium Level 133 mmol/L (136-145)
[2020-09-29] MEDS: Aspirin 81 MG TAB.CHEW 324 MG PO (15:24)
[2020-09-29] MEDS: Albuterol 2.5 MG/3 ML VIAL.NEB. INHALATION (16:22)
[2020-09-29] MEDS: Ipratropium/Albuterol Sulfate 3 ML AMPUL.NEB INHALATION (16:22)
== END 2020-09-29 18:03 | disposition short-term general hospital (02) ==
PROVIDERS: Emergency Provider Student in an Organized Health Care Education/Training Program; PCP Family Medicine
DX: I95.9 Hypotension, unspecified (principal); I50.9 Heart failure, unspecified; I13.0 Hypertensive heart and chronic kidney disease with heart failure and stage 1 through stage 4 chronic kidney disease, or unspecified chronic kidney disease; E78.5 Hyperlipidemia, unspecified; G47.33 Obstructive sleep apnea (adult) (pediatric); K21.9 Gastro-esophageal reflux disease without esophagitis; N18.4 Chronic kidney disease, stage 4 (severe); E11.22 Type 2 diabetes mellitus with diabetic chronic kidney disease; I25.10 Atherosclerotic heart disease of native coronary artery without angina pectoris; Z80.1 Family history of malignant neoplasm of trachea, bronchus and lung; Z82.49 Family history of ischemic heart disease and other diseases of the circulatory system; Z87.891 Personal history of nicotine dependence; Z88.6 Allergy status to analgesic agent; Z88.8 Allergy status to other drugs, medicaments and biological substances; Z95.810 Presence of automatic (implantable) cardiac defibrillator
CPT/HCPCS: 70450; 71045; 80048; 83880; 84484; 85025; 93005; 94640; 96360; 99285; J7030; A4216

== ENCOUNTER 2020-10-11 13:10 | Outpatient (RCR) | payer MEDICARE, SELFPAY ==
[2020-10-11] MEDS: COVID-19 VACC, MRNA(PFIZER)/PF 30 MCG/0.3 ML SYRINGE IM (15:14)
[2020-11-01] MEDS: COVID-19 VACC, MRNA(PFIZER)/PF 30 MCG/0.3 ML SYRINGE IM (15:00)
== END 2020-10-11 23:59 ==
LOC: IMMUN 13:10
PROVIDERS: PCP Family Medicine; Visit Provider Family Medicine
DX: Z23 Encounter for immunization (principal)
CPT/HCPCS: 0001A; 0002A; 91300

== ENCOUNTER 2020-10-14 09:07 | Emergency (ER) | payer MEDICARE, MEDICAID, SELFPAY ==
[2020-09-29 11:09] VITALS: BMI 28.1
[2020-10-14 09:13] VITALS: BP 102/79; PULSE 93; RESP 20; TEMP 36.7; O2SAT 95; BMI 23.7
--- NOTE | 2020-10-14 09:34 | EKG12_ITS ---
Test Reason : GEN ILL Blood Pressure : / mmHG Vent. Rate : 090 BPM Atrial Rate : 090 BPM P-R Int : 158 ms QRS Dur : 140 ms QT Int : 422 ms P-R-T Axes : 060 -08 182 degrees QTc Int : 516 ms Sinus rhythm with occasional Premature ventricular complexes Possible Left atrial enlargement Left bundle branch block Abnormal ECG Confirmed by SHAVONNE LUNDBERG, LISA ([id number]), primer expeditor and drier COREY BRYANT ([id number]) on 10/16/2020 8:59:22 AM Referred By: MARVIN Confirmed By:LISA MARVIN MD
--- NOTE | 2020-10-14 09:47 | ED.VIS.GEN ---
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 He states he has been trying to take his medications but does not believe there been staying in him. He states that he still urinating fine. He states he has not had a bowel movement for 2 weeks. When asked what he is doing about that he tells me nothing and then a few minutes later tells me he has been taking something for a colonoscopy that they gave me in [place]. His is in the hospital having a NSTEMI with respiratory failure. He ate bad food exposure or bad water. He denies any new medications in the past 2 weeks. - Past Medical History (1) NSTEMI (non-ST elevated myocardial infarction) Status: Chronic (2) Subdural hematoma Status: Chronic (3) Benign essential hypertension Status: Chronic (4) CAD (coronary artery disease) Status: Chronic (5) COPD (chronic obstructive pulmonary disease) Status: Chronic Comment: FEV1 64% of predicted (6) Chronic back pain Status: Chronic (7) Chronic renal failure, stage 3 (moderate) Status: Chronic (8) Chronic systolic (congestive) heart failure Status: Chronic (9) Degenerative cervical disc Status: Chronic (10) Gastroesophageal reflux disease Status: Chronic (11) Gout Status: Chronic (12) Hyperlipidemia Status: Chronic (13) Hypoxia, sleep related Status: Chronic (14) Ischemic cardiomyopathy Status: Chronic Comment: 25% ejection fraction in November 2016 (15) Morbid obesity Status: Chronic (16) Type 2 diabetes mellitus Status: Chronic Past Medical History - Allergies and Home Meds Allergies/Adverse Reactions: Allergies chlorpromazine HCl [From Thorazine] Allergy (Severe, Verified 10/14/20 09:08) Hives PER PATIENT tramadol HCl [From Ultram] Allergy (Severe, Verified 10/14/20 09:08) Hives PER PATIENT codeine Allergy (Intermediate, Verified 10/14/20 09:08) Hives promethazine [From Phenergan] Allergy (Verified 10/14/20 09:08) confusion atorvastatin Adverse Reaction (Intermediate, Verified 10/14/20 09:08) LEG PAIN/CRAMPS LEG PAIN/CRAMPS cyclobenzaprine [From Flexeril] Adverse Reaction (Verified 10/14/20 09:08) Upset Stomach metformin Adverse Reaction (Verified 10/14/20 09:08) Upset Stomach naproxen Adverse Reaction (Verified 10/14/20 09:08) Upset Stomach Primary Care Physician: Juan De La Vega III, MD [Primary Care Provider] - 3-5 Days if not improving Surgical History: angioplasty - stents x 10, coronary bypass surgery, - - AICD placement, back surgery x 2, hernia repair, PCI. Lives: Spouse/ Significant Other Smoking Status: Former smoker Drugs: None - Family History Maternal Family History: Family History (Last Reviewed 07/16/20 @ 15:[address] Ravin Ortega DO) Brother CAD (coronary artery disease) Myocardial infarction Sudden cardiac Mother Cancer Hypertension Father Cancer COPD (chronic obstructive pulmonary disease) Family History: Reports: Cancer - lung, Hypertension, - - Patient notes a paternal family history of chronic lung disease, lung cancer with history of tobacco use. Paternal Family History: Family History (Last Reviewed 07/16/20 @ 15:[address] Ravin Ortega DO) Brother CAD (coronary artery disease) Myocardial infarction Sudden cardiac Mother Cancer Hypertension Father Cancer COPD (chronic obstructive pulmonary disease) Family History: Reports: Cancer, Heart Disease Review of Systems General: Denies: Chills, Fever, Sweats Eyes: Denies: Visual changes - bilaterally, Diplopia ENT: Denies: Rhinorrhea, Sore throat Cardiovascular: Denies: Chest pain, Palpitations Respiratory: Reports: Dyspnea - No change in his chronic shortness of breath and cough, Cough. Denies: Dyspnea on exertion Gastrointestinal: Reports: Nausea, Vomiting, Constipation - Patient reports no bowel movement for 2 weeks. Denies: Abdominal pain, Diarrhea, Melena, Hematochezia Genitourinary: Denies: Dysuria, Hematuria, Frequency Musculoskeletal: Denies: Back pain, Extremity Pain Skin: Denies: Rash, Wounds Neurological: Denies: Headache, Weakness, Numbness Physical Exam Vital Signs/Narrative: Vital Signs Temp Pulse Resp BP Pulse Ox 10/14/20 09:13 98.0 F 93 20 H 102/79 95 Inital Vital Signs reviewed: Yes General: Well nourished, Well developed, No Acute Distress Head: Normocephalic, Atraumatic Eyes: Perrl, EOMI ENT: Moist mucous membranes, No rhinorrhea Neck: Supple, Nontender Cardiovascular: Regular rate, Regular rhythm, No murmurs Respiratory: No distress, CTA bilaterally, Chest nontender Abdomen: Soft, Nontender, Nondistended, Normal bowel sounds Back: Nontender, Normal Inspection Extremities: Nontender, No edema Skin: Normal color, No rash Neurological: Alert, Oriented x3, Cranial nerves II-XII grossly intact, Normal Strength, Normal Sensation Psychological: Normal affect, Normal Mood Diagnostic/Tx/Re-eval Clinical Impression(s) from Imaging Studies KUB X-Ray 10/14/20 10:35 IMPRESSION: Prominent stool throughout the colon with no evidence of underlying obstruction. Electronically Signed: Hossein DO Michael at 10:50 EDT , Service support , Laboratory Last Values WBC 6.4 K/mm3 (4.4-11.0) 10/14/20 09:50 RBC 4.41 M/mm3 (4.6-6.2) L 10/14/20 09:50 Hgb 13.2 g/dL (13.0-16.5) 10/14/20 09:50 Hct 40.3 % (40-54) 10/14/20 09:50 MCV 91.4 fL (80-94) 10/14/20 09:50 MCH 29.9 pg (27.0-32.0) 10/14/20 09:50 MCHC 32.8 g/dL (32-36) 10/14/20 09:50 RDW Std Deviation 49.1 fl (35.1-43.9) H 10/14/20 09:50 RDW Coeff of Maggie 14.6 % (11.6-14.6) 10/14/20 09:50 Plt Count 235 K/mm3 (150-450) 10/14/20 09:50 MPV 10.0 fl (6.2-12.0) 10/14/20 09:50 Immature Gran % (Auto) 0.300 % (0.0-0.9) 10/14/20 09:50 Neut % (Auto) 69.3 % (47-70) 10/14/20 09:50 Lymph % (Auto) 17.1 % (19-41) L 10/14/20 09:50 [place] % (Auto) 11.9 % (0-10) H 10/14/20 09:50 Eos % (Auto) 0.9 % (0-5) 10/14/20 09:50 Baso % (Auto) 0.5 % (0-1) 10/14/20 09:50 Absolute Neuts (auto) 4.4 X10^3/uL (2.0-7.7) 10/14/20 09:50 Absolute Lymphs (auto) 1.09 X10^3/uL (0.83-4.51) 10/14/20 09:50 Nucleated RBC % 0 % (0-5) 10/14/20 09:50 Sodium 130 mmol/L (136-145) L 10/14/20 09:50 Potassium 3.3 mmol/L (3.5-5.1) L 10/14/20 09:50 Chloride 92 mmol/L (98-107) L 10/14/20 09:50 Carbon Dioxide 30.0 mmol/L (21.0-32.0) 10/14/20 09:50 Anion Gap 8 (5-15) 10/14/20 09:50 BUN 32 mg/dL (7-18) H 10/14/20 09:50 Creatinine 1.72 mg/dL (0.70-1.30) H 10/14/20 09:50 Estim Creat Clear Calc 40.53 ml/min 10/14/20 09:50 Est GFR (MDRD) Af Amer 51 mL/min (>60) L 10/14/20 09:50 Est GFR (MDRD) Non-Af 42 mL/min (>60) L 10/14/20 09:50 BUN/Creatinine Ratio 18.6 RATIO (10-20) 10/14/20 09:50 Glucose 120 mg/dL (74-106) H 10/14/20 09:50 Calcium 9.4 mg/dL (8.5-10.1) 10/14/20 09:50 Total Bilirubin 1.10 mg/dL (0.20-1.00) H 10/14/20 09:50 AST 17 U/L (15-37) 10/14/20 09:50 ALT 21 U/L (16-61) 10/14/20 09:50 Alkaline Phosphatase 90 U/L (45-117) 10/14/20 09:50 Total Protein 7.4 g/dL (6.4-8.2) 10/14/20 09:50 Albumin 3.7 g/dL (3.2-5.0) 10/14/20 09:50 Globulin 3.7 g/dL (2.2-4.2) 10/14/20 09:50 Albumin/Globulin Ratio 1.0 RATIO (0.9-2.4) 10/14/20 09:50 Lipase 38 U/L (73-393) L 10/14/20 09:50 Urine Color Yellow (Yellow) 10/14/20 11:05 Urine Clarity Clear (Clear) 10/14/20 11:05 Urine pH 6.0 (5.0 - 8.0) 10/14/20 11:05 Ur Specific [place] 1.010 (1.002-1.030) 10/14/20 11:05 Urine Protein Negative mg/dl (Negative) 10/14/20 11:05 Urine Glucose (UA) Normal mg/dl (Normal) 10/14/20 11:05 Urine Ketones Negative mg/dl (Negative) 10/14/20 11:05 Urine Occult Blood Negative /ul (Negative) 10/14/20 11:05 Urine Nitrite Negative (Negative) 10/14/20 11:05 Urine Bilirubin Negative mg/dL (Negative) 10/14/20 11:05 Urine Urobilinogen Normal mg/dl (Normal) 10/14/20 11:05 Ur Leukocyte Esterase 100 /ul (Negative) H 10/14/20 11:05 Urine RBC 0 SEEN /hpf (0-5) 10/14/20 11:05 Urine WBC 10-25 SEEN /hpf (0-5) 10/14/20 11:05 Ur Squamous Epith Cells 0-5 SEEN /hpf (0-5) 10/14/20 11:05 Urine Bacteria 0 SEEN /hpf (None Seen) 10/14/20 11:05 Urine Mucus 0 SEEN /hpf (<or=2+) 10/14/20 11:05 - Medical Decision Making My interpretation of the abdominal x-rays is constipation. Nonobstructive pattern. Patient's labs appeared near his baseline. Sodium noted to be 130 and potassium 3.3. His urinalysis shows a specific gravity 1.01. There are no ketones. There is no bacteria or nitrates. There is a small amount of white cells of questionable significance. He received oral potassium after oral Zofran. Nursing unfortunately was able to obtain his blood did not start an IV. Patient's labs are basically at baseline. His vital signs are normal. I do not see a strong indication that he needs to be admitted into the hospital. He has magnesium citrate at home. I will write for Zofran. If worsening or concerns or follow-up with primary care ED Disposition - Plan for ED Patient: Disposition: Home or Assisted Living Diagnosis: Vomiting, Hypokalemia, Hyponatremia Instructions: ED Vomiting (Adult) Prescriptions: Ondansetron [Zofran Odt] 4 mg PO Q6H PRN PRN #15 tablet PRN Reason: Nausea Transmission Status: Received by [id number] Referrals: Juan De La Vega III, MD [Primary Care Provider] - 3-5 Days if not improving
[2020-10-14 09:57] LABS: Absolute Lymphocyte Count 1.09 X10^3/uL (0.83-4.51); Absolute Neutrophil Count 4.4 X10^3/uL (2.0-7.7); Basophil# 0.03 X10^3/uL; Basophil% 0.5 % (0-1); Eosinophil# 0.06 X10^3/uL; Eosinophils% 0.9 % (0-5); Hematocrit 40.3 % (40-54); Hemoglobin 13.2 g/dL (13.0-16.5); Lymphocyte # 1.09 X10^3/ul (4.0); Lymphocyte % 17.1 % (19-41); Mean Corp Hgb Conc 32.8 g/dL (32-36); Mean Corpuscular Hgb 29.9 pg (27.0-32.0); Mean Corpuscular Volume 91.4 fL (80-94); Monocyte# 0.76 X10^3/uL; Monocyte% 11.9 % (0-10); NRBC Flagged by Analyzer 0 % (0-5); Neutrophil # 4.43 X10^3/uL (2.7-7.7); Neutrophil % 69.3 % (47-70); Platelet Count 235 K/mm3 (150-450); RBC Distribution Width CV 14.6 % (11.6-14.6); RBC Distribution Width SD 49.1 fl (35.1-43.9); Red Blood Count 4.41 M/mm3 (4.6-6.2); White Blood Count 6.4 K/mm3 (4.4-11.0)
[2020-10-14] MEDS: Ondansetron ODT 4 MG Tablet PO (10:09)
[2020-10-14 10:10] LABS: AST(SGOT) 17 U/L (15-37); Alanine Aminotransfer ALT/SGPT 21 U/L (16-61); Albumin, Serum 3.7 g/dL (3.2-5.0); Alkaline Phosphatase 90 U/L (45-117); Anion Gap 8 (5-15); BUN 32 mg/dL (7-18); BUN/Creat Ratio 18.6 RATIO (10-20); Calcium,Total 9.4 mg/dL (8.5-10.1); Chloride 92 mmol/L (98-107); Creatinine, Serum 1.72 mg/dL (0.70-1.30); EST Glomerular Filtration Rate 42 mL/min (>60); Est Glom Filt Rate - Afr Amer 51 mL/min (>60); Estimated Creatinine Clearance 40.53 ml/min; Globulin 3.7 g/dL (2.2-4.2); Glucose 120 mg/dL (74-106); Lipase 38 U/L (73-393); Potassium 3.3 mmol/L (3.5-5.1); Protein, Total 7.4 g/dL (6.4-8.2); Sodium Level 130 mmol/L (136-145)
--- NOTE | 2020-10-14 10:11 | ED.RN ---
unable to obtain iv. dr paez aware and ordered oral zofran, we will wait for lab results to decide if we need to do further treatment
--- NOTE | 2020-10-14 10:35 | RAD_ITS ---
INDICATION: constipation EXAMINATION/TECHNIQUE: X-RAY - XR Abdomen 1 View COMPARISON: None FINDINGS: BOWEL GAS PATTERN: Non-obstructive. No bowel or stomach distention. Prominent stool throughout the colon is present. FREE AIR: Not assessed on a single supine view. ORGANOMEGALY: Not seen. CALCIFICATIONS: No abnormal calcifications observed. LOWER CHEST: No acute pathology. BONES AND SOFT TISSUES: Degenerative changes. RAD/Abdomen Single View IMPRESSION: Prominent stool throughout the colon with no evidence of underlying obstruction. Electronically Signed: Hossein Rodriguez DO at 10:50 EDT , Service support ,
--- NOTE | 2020-10-14 10:49 | ED.RN ---
UNABLE TO OBTAIN AN IV IN PT. PT POKED MULTIPLE TIMES, BY EMS, AND NURSING STAFF. DR. WONG INFORMED. ORDERS CHANGED TO ORAL MEDS.
[2020-10-14] MEDS: Potassium Chloride Oral Tablet 20 MEQ PO (10:55)
[2020-10-14 11:10] LABS: Bacteria 0 SEEN /hpf (None Seen); Color, Urine Yellow (Yellow); Glucose, Dipstick Normal (Normal); Ketone-Dipstick Negative (Negative); Leukocyte Esterase-Dipstick 100 /ul (Negative); Mucous, Urine 0 SEEN /hpf (<or=2+); Nitrite-Dipstick Negative (Negative); Occult Blood-Urine Negative /ul (Negative); Protein-Dipstick Negative (Negative); Red Blood Cells-Urine 0 SEEN /hpf (0-5); Urine Bilirubin Dipstick Negative (Negative); Urine Clarity Clear (Clear); Urine Urobilinogen Normal (Normal)
[2020-10-14 11:14] VITALS: PULSE 96; RESP 18; O2SAT 98
--- NOTE | 2020-10-14 11:16 | ED.RN ---
PT ASSISTED UP TO BATHROOM TO PEE. PT ABLE TO GIVE URINE SPECIMEN. ASSISTED BACK INTO BED AND MONITOR REPLACE. CALL LIGHT GIVEN. PT DRY HEAVING, C/O CONTINUED NAUSEA. DR. WONG INFORMED.
[2020-10-14 11:18] LABS: Squamous Epithelial Cells - UA 0-5 SEEN /hpf (0-5); White Blood Cells 10-25 SEEN /hpf (0-5)
[2020-10-14 11:50] VITALS: BP 110/81; PULSE 89; RESP 16; O2SAT 98
== END 2020-10-14 11:52 | disposition home or self-care (01) ==
PROVIDERS: Emergency Provider Emergency Medicine; PCP Family Medicine
DX: R11.2 Nausea with vomiting, unspecified (principal); E87.6 Hypokalemia; E87.1 Hypo-osmolality and hyponatremia; E11.22 Type 2 diabetes mellitus with diabetic chronic kidney disease; E66.01 Morbid (severe) obesity due to excess calories; E78.5 Hyperlipidemia, unspecified; I13.0 Hypertensive heart and chronic kidney disease with heart failure and stage 1 through stage 4 chronic kidney disease, or unspecified chronic kidney disease; I25.10 Atherosclerotic heart disease of native coronary artery without angina pectoris; I25.5 Ischemic cardiomyopathy; I25.2 Old myocardial infarction; I44.7 Left bundle-branch block, unspecified; I50.22 Chronic systolic (congestive) heart failure; J44.9 Chronic obstructive pulmonary disease, unspecified; K21.9 Gastro-esophageal reflux disease without esophagitis; N18.30 Chronic kidney disease, stage 3 unspecified; K59.00 Constipation, unspecified; Z80.1 Family history of malignant neoplasm of trachea, bronchus and lung; Z82.49 Family history of ischemic heart disease and other diseases of the circulatory system; Z87.891 Personal history of nicotine dependence; Z88.6 Allergy status to analgesic agent; Z88.8 Allergy status to other drugs, medicaments and biological substances; Z95.810 Presence of automatic (implantable) cardiac defibrillator
CPT/HCPCS: 74018; 80053; 81001; 83690; 85025; 93005; 96361; 96374; 99285; A4216; J2405

== ENCOUNTER 2020-10-24 13:40 | Emergency (ER) | payer MEDICARE, MEDICAID, SELFPAY ==
[2020-10-24 13:42] VITALS: BP 90/61; PULSE 72; RESP 20; TEMP 36; O2SAT 98; BMI 24.3
--- NOTE | 2020-10-24 14:24 | ED.VISSUMM ---
- ER Visit Summary Date of Service: 10/24/20 Chief Complaint: Nausea and vomiting History of Present Illness: The patient is a 70 M who presents with nausea and vomiting that has been constant for the past 9 days. Patient states he has been unable to keep anything down. Patient was sent in by palliative care for possible dehydration. Patient denies any diarrhea but admits to constipation. Patient states that he has not had a bowel movement in the past 9 days as well. Patient states he is passing flatus. Patient states nothing makes the nausea and vomiting better or worse. Patient denies any hematemesis or coffee-ground emesis. Patient denies any dysuria or hematuria. Patient states she has been seen here in the past for this and was given Zofran. Patient states this has not helped. Physical Examination: Vital signs are stable except for slightly low blood pressure of 90/61. Patient is afebrile. Patient is in no acute distress. Oral mucosa is pink and moist. Neck is supple. Trachea is midline. There is no JVD. Heart was regular rate and rhythm. Lungs are clear and equal bilaterally. Abdomen is soft. Bowel sounds are normal. There is no tenderness. There is no rebound or guarding noted. Cranial nerves II through XII are intact. There are no focal motor or sensory deficits noted. Extremities are intact. There is no calf tenderness or edema. Test Results: CBC was within normal limits. Comprehensive metabolic profile showed a sodium of 125 and a chloride of 88. Potassium was 3.4. BUN was 33 and creatinine was 1.76. These were consistent with prior results. Acute abdominal x-rays were obtained. There are 5 views. On my interpretation, there is no evidence of obstruction or free air. There is a large amount of stool throughout the colon. Radiologist also interpreted the x-rays and agrees. Emergency Department Course and Treatment: Patient was given IV fluids. Patient was given Reglan and Benadryl. Patient is feeling better on reevaluation. Patient ambulated to the bathroom without difficulty. Patient was given a prescription for Reglan. Patient was instructed to start with a liquid diet and advance as tolerated. Patient was instructed to follow-up with his primary care physician in 5 to 7 days. Patient understood and was agreeable with the plan. All questions were answered. Disposition: Discharge home Impression: 1. Nausea and vomiting 2. Constipation This note was generated with Dragon dictation software. It may contain incorrect words, spelling, and punctuation that were not noted in review of the chart prior to signing ED Disposition - Plan for ED Patient: Disposition: Home or Assisted Living Diagnosis: Nausea and vomiting, Constipation Instructions: ED Constipation (Adult), ED Vomiting (Adult) Prescriptions: Polyethylene Glycol 3350 [Miralax] 17 gm PO QHS PRN PRN #5 packet PRN Reason: Constipation Transmission Status: Pending to [facility] Metoclopramide [Reglan] 10 mg PO 4X/DAY PRN PRN #20 tablet PRN Reason: Nausea/Vomiting Transmission Status: Pending to [facility] Referrals: Juan De La Vega III, MD [Primary Care Provider] - 3-5 Days
[2020-10-24] MEDS: Metoclopramide 10 MG/2 ML Vial IV (14:33)
[2020-10-24] MEDS: 0.9% Normal Saline 1,000 ML 1000 ML IV (14:33)
[2020-10-24] MEDS: DiphenhydrAMINE 50 MG/ML Syringe 25 MG IV (14:33)
--- NOTE | 2020-10-24 14:55 | RAD_ITS ---
STUDY: X-RAY - ACUTE ABDOMINAL SERIES REASON FOR EXAM: Male, 70 years old. Pain . 9 day history of nausea and vomiting. TECHNIQUE: Single view of the chest. Supine, and erect view(s) of the abdomen were obtained. COMPARISON: Comparison is made with prior study dated 10/14/2020. FINDINGS: Hyperinflation. Scattered calcified granulomas. Prior CABG. A left-sided dual-chamber pacemaker is seen. Normal mediastinum and serjio. There is prominence of the pulmonary hilar arteries without peripheral pulmonary vascular congestion, suggesting pulmonary hypertension. Normal visualized aortic arch and descending thoracic aorta. There is an abundance of fecal material throughout the colon. The soft tissue structures of the abdomen and pelvis are unremarkable. There are diffuse degenerative changes of the visualized lumbar spine. Minimal levoscoliosis. RAD/Acute Abdomen Inc Chest IMPRESSION: Large amount of fecal material is seen in the colon. Electronically Signed: Arcenio Leary MD at 15:21 EDT , Service support ,
[2020-10-24 15:01] LABS: Absolute Lymphocyte Count 1.72 X10^3/uL (0.83-4.51); Basophil# 0.03 X10^3/uL; Basophil% 0.4 % (0-1); Eosinophil# 0.06 X10^3/uL; Eosinophils% 0.8 % (0-5); Hematocrit 43.1 % (40-54); Hemoglobin 14.3 g/dL (13.0-16.5); Lymphocyte # 1.72 X10^3/ul (4.0); Lymphocyte % 22.7 % (19-41); Mean Corp Hgb Conc 33.2 g/dL (32-36); Mean Corpuscular Hgb 29.6 pg (27.0-32.0); Mean Corpuscular Volume 89.2 fL (80-94); Mean Platelet Vol. 10.3 fl (6.2-12.0); Monocyte% 10.6 % (0-10); NRBC Flagged by Analyzer 0 % (0-5); Neutrophil # 4.95 X10^3/uL (2.7-7.7); Neutrophil % 65.4 % (47-70); Platelet Count 245 K/mm3 (150-450); RBC Distribution Width CV 14.4 % (11.6-14.6); Red Blood Count 4.83 M/mm3 (4.6-6.2); White Blood Count 7.6 K/mm3 (4.4-11.0)
[2020-10-24 15:21] LABS: AST(SGOT) 28 U/L (15-37); Alanine Aminotransfer ALT/SGPT 20 U/L (16-61); Albumin, Serum 3.8 g/dL (3.2-5.0); Alkaline Phosphatase 86 U/L (45-117); Anion Gap 7 (5-15); BUN 33 mg/dL (7-18); BUN/Creat Ratio 18.8 RATIO (10-20); Calcium,Total 9.3 mg/dL (8.5-10.1); Chloride 88 mmol/L (98-107); Creatinine, Serum 1.76 mg/dL (0.70-1.30); EST Glomerular Filtration Rate 41 mL/min (>60); Est Glom Filt Rate - Afr Amer 50 mL/min (>60); Estimated Creatinine Clearance 38.32 ml/min; Globulin 3.7 g/dL (2.2-4.2); Glucose 130 mg/dL (74-106); Potassium 3.4 mmol/L (3.5-5.1); Protein, Total 7.5 g/dL (6.4-8.2); Sodium Level 125 mmol/L (136-145)
[2020-10-24 15:52] VITALS: BP 103/64; PULSE 90; RESP 16; O2SAT 99
== END 2020-10-24 16:01 | disposition home or self-care (01) ==
PROVIDERS: Emergency Provider Emergency Medicine; PCP Family Medicine
DX: R11.2 Nausea with vomiting, unspecified (principal); K59.00 Constipation, unspecified
CPT/HCPCS: 74022; 80053; 85025; 96374; 96375; 99283; J7030; A4216

== ENCOUNTER 2020-11-17 18:44 | Inpatient (IN) | payer MEDICARE, MEDICAID, SELFPAY ==
[2020-11-17] VITALS (15 sets, daily range): BP systolic 84–144; BP diastolic 54–130; PULSE 75–133; RESP 12–36; TEMP 36–36.4; O2SAT 93–100; BMI 23.6; BMI 24.2
--- NOTE | 2020-11-17 18:46 | EKG12_ITS ---
Test Reason : SOB Blood Pressure : / mmHG Vent. Rate : 127 BPM Atrial Rate : 127 BPM P-R Int : 148 ms QRS Dur : 130 ms QT Int : 334 ms P-R-T Axes : 065 044 102 degrees QTc Int : 485 ms Sinus tachycardia with Premature supraventricular complexes and Premature ventricular complexes or Fu josiane complexes Non-specific intra-ventricular conduction block Nonspecific T wave abnormality Abnormal ECG Confirmed by BERYL LUNDBERG, MICHELLE ([id number]), map editor COREY BRYANT ([id number]) on 11/21/2020 8:32:44 AM Referred By: MARVIN Confirmed By:MICHELLE CORDOBA MD
[2020-11-17] MEDS: MethylPREDNISolone 125 MG/2 ML Vial IV (19:01)
[2020-11-17] MEDS: Ipratropium/Albuterol Sulfate 3 ML AMPUL.NEB INHALATION (19:01)
--- NOTE | 2020-11-17 19:04 | ED.DCSUM_ITS ---
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 He is only able to speak in one-word sentences. In short EMS was called to the house for shortness of breath. They found her to be hypoxic in the 80s. He wears oxygen only at night. He is a continuous smoker who has an extensive cardiac history. He tells me that his shortness of breath began yesterday. It got progressively worse and then severe tonight. He denies any active chest pain. No fevers. - Past Medical History (1) Benign essential hypertension Status: Chronic (2) CAD (coronary artery disease) Status: Chronic (3) COPD (chronic obstructive pulmonary disease) Status: Chronic Comment: FEV1 64% of predicted (4) Chronic back pain Status: Chronic (5) Chronic renal failure, stage 3 (moderate) Status: Chronic (6) Chronic systolic (congestive) heart failure Status: Chronic (7) Gastroesophageal reflux disease Status: Chronic (8) Gout Status: Chronic (9) Hyperlipidemia Status: Chronic (10) Ischemic cardiomyopathy Status: Chronic Comment: 25% ejection fraction in November 2016 (11) Smoking greater than 30 pack years Status: Chronic Comment: Appropriate for low-dose CT lung screening due January 2021 (12) Type 2 diabetes mellitus Status: Chronic (13) V-tach Status: Chronic Comment: has an AICD Past Medical History - Allergies and Home Meds Allergies/Adverse Reactions: Allergies chlorpromazine HCl [From Thorazine] Allergy (Severe, Verified 11/17/20 18:44) Hives PER PATIENT tramadol HCl [From Ultram] Allergy (Severe, Verified 11/17/20 18:44) Hives PER PATIENT codeine Allergy (Intermediate, Verified 11/17/20 18:44) Hives promethazine [From Phenergan] Allergy (Verified 11/17/20 18:44) confusion atorvastatin Adverse Reaction (Intermediate, Verified 11/17/20 18:44) LEG PAIN/CRAMPS LEG PAIN/CRAMPS cyclobenzaprine [From Flexeril] Adverse Reaction (Verified 11/17/20 18:44) Upset Stomach metformin Adverse Reaction (Verified 11/17/20 18:44) Upset Stomach naproxen Adverse Reaction (Verified 11/17/20 18:44) Upset Stomach Primary Care Physician: Juan De La Vega III, MD [Primary Care Provider] - Surgical History: angioplasty - stents x 10, coronary bypass surgery, - - AICD placement, back surgery x 2, hernia repair, PCI. Lives: Spouse/ Significant Other Smoking Status: Light Smoker (<10/day) Drugs: None - Family History Maternal Family History: Family History (Last Reviewed 07/16/20 @ 15:[address] Ravin Ortega DO) Brother CAD (coronary artery disease) Myocardial infarction Sudden cardiac Mother Cancer Hypertension Father Cancer COPD (chronic obstructive pulmonary disease) Family History: Reports: Cancer - lung, Hypertension, - - Patient notes a paternal family history of chronic lung disease, lung cancer with history of tobacco use. Paternal Family History: Family History (Last Reviewed 07/16/20 @ 15:[address] Ravin Ortega DO) Brother CAD (coronary artery disease) Myocardial infarction Sudden cardiac Mother Cancer Hypertension Father Cancer COPD (chronic obstructive pulmonary disease) Family History: Reports: Cancer, Heart Disease Review of Systems General: Reports: Malaise. Denies: Chills, Fever, Sweats Eyes: Denies: Visual changes - bilaterally, Diplopia ENT: Denies: Rhinorrhea, Sore throat Cardiovascular: Denies: Chest pain, Palpitations Respiratory: Reports: Dyspnea, Cough, Dyspnea on exertion Gastrointestinal: Denies: Abdominal pain, Nausea, Vomiting, Diarrhea, Melena, Hematochezia Genitourinary: Denies: Dysuria, Hematuria, Frequency Musculoskeletal: Denies: Back pain, Extremity Pain Skin: Denies: Rash, Wounds Neurological: Denies: Headache, Weakness, Numbness Physical Exam Vital Signs/Narrative: Vital Signs Temp Pulse Resp BP Pulse Ox 11/17/20 18:45 97.0 F L 133 H 36 H 144/130 H 100 Inital Vital Signs reviewed: Yes General: Well nourished, Well developed, Acute Distress - Patient is in acute respiratory distress Head: Normocephalic, Atraumatic Eyes: Perrl, EOMI ENT: Moist mucous membranes, No rhinorrhea Neck: Supple, Nontender Cardiovascular: Regular rate, Regular rhythm, No murmurs Respiratory: Chest nontender, Wheezing, Decreased Air Movement, Retractions Abdomen: Soft, Nontender, Nondistended, Normal bowel sounds Back: Nontender, Normal Inspection Extremities: Nontender, No edema Skin: No rash, - - Patient has mottling of his skin over the anterior abdomen and the flanks Neurological: Alert, Oriented x3, Cranial nerves II-XII grossly intact, Normal Strength, Normal Sensation Diagnostic/Tx/Re-eval Clinical Impression(s) from Imaging Studies Chest X-Ray 11/17/20 19:17 IMPRESSION: Increased interstitial markings may represent edema and/or infection. Trace right pleural effusion. Electronically Signed: Jose Angel Lloyd MD at 19:41 EDT Tel , Service support , Chest X-Ray 11/17/20 20:50 IMPRESSION: No pneumothorax status post central line placement. at 2127 Reported and signed by: Ama Small MD Electronically Signed: Ama Small MD at 21:27 EDT Tel , Service support , Laboratory Last Values WBC 13.7 K/mm3 (4.4-11.0) H 11/17/20 19:05 RBC 4.55 M/mm3 (4.6-6.2) L 11/17/20 19:05 Hgb 13.1 g/dL (13.0-16.5) 11/17/20 19:05 Hct 41.1 % (40-54) 11/17/20 19:05 MCV 90.3 fL (80-94) 11/17/20 19:05 MCH 28.8 pg (27.0-32.0) 11/17/20 19:05 MCHC 31.9 g/dL (32-36) L 11/17/20 19:05 RDW Std Deviation 51.4 fl (35.1-43.9) H 11/17/20 19:05 RDW Coeff of Maggie 15.6 % (11.6-14.6) H 11/17/20 19:05 Plt Count 280 K/mm3 (150-450) 11/17/20 19:05 MPV 10.4 fl (6.2-12.0) 11/17/20 19:05 Immature Gran % (Auto) 0.600 % (0.0-0.9) 11/17/20 19:05 Neut % (Auto) 78.6 % (47-70) H 11/17/20 19:05 Lymph % (Auto) 12.1 % (19-41) L 11/17/20 19:05 [place] % (Auto) 8.6 % (0-10) 11/17/20 19:05 Eos % (Auto) 0.0 % (0-5) 11/17/20 19:05 Baso % (Auto) 0.1 % (0-1) 11/17/20 19:05 Absolute Neuts (auto) 10.7 X10^3/uL (2.0-7.7) H 11/17/20 19:05 Absolute Lymphs (auto) 1.66 X10^3/uL (0.83-4.51) 11/17/20 19:05 Nucleated RBC % 0 % (0-5) 11/17/20 19:05 PT 14.5 SECONDS (11.7-14.9) 11/17/20 19:05 INR 1.2 11/17/20 19:05 APTT 30.9 Seconds (24.1-36.2) 11/17/20 19:05 Specimen Type ART 11/17/20 19:13 Sample Site R Radial 11/17/20 19:13 pH 7.45 (7.35-7.45) 11/17/20 19:13 Bicarbonate Actual 29.6 mmol/L (22-26) H 11/17/20 19:13 Total CO2 31 mmol/L 11/17/20 19:13 Base Excess 6 mmol/L (-2 to +2) H 11/17/20 19:13 O2 Saturation 99 % (95-99) 11/17/20 19:13 O2 % 30 11/17/20 19:13 ABG pCO2 42.4 mmHg (35-45) 11/17/20 19:13 ABG pO2 123 mmHG (75-100) H 11/17/20 19:13 Greg Test Positive 11/17/20 19:13 Respiration Rate 12 11/17/20 19:13 O2 Delivery Device BiPAP 11/17/20 19:13 POC PEEP 6 11/17/20 19:13 POC Pressure Suppt 10 11/17/20 19:13 Sodium 132 mmol/L (136-145) L 11/17/20 19:05 Potassium 3.0 mmol/L (3.5-5.1) L 11/17/20 19:05 Chloride 90 mmol/L (98-107) L 11/17/20 19:05 Carbon Dioxide 31.0 mmol/L (21.0-32.0) 11/17/20 19:05 Anion Gap 11 (5-15) 11/17/20 19:05 BUN 18 mg/dL (7-18) 11/17/20 19:05 Creatinine 1.23 mg/dL (0.70-1.30) 11/17/20 19:05 Estim Creat Clear Calc 54.84 ml/min 11/17/20 19:05 Est GFR (MDRD) Af Amer 75 mL/min (>60) 11/17/20 19:05 Est GFR (MDRD) Non-Af 62 mL/min (>60) 11/17/20 19:05 BUN/Creatinine Ratio 14.6 RATIO (10-20) 11/17/20 19:05 Glucose 244 mg/dL (74-106) H 11/17/20 19:05 Lactic Acid 3.5 mmol/L (0.4-1.9) H* 11/17/20 19:05 Calcium 8.7 mg/dL (8.5-10.1) 11/17/20 19:05 Total Bilirubin 2.30 mg/dL (0.20-1.00) H 11/17/20 19:05 AST 62 U/L (15-37) H 11/17/20 19:05 ALT 73 U/L (16-61) H 11/17/20 19:05 Alkaline Phosphatase 112 U/L (45-117) 11/17/20 19:05 Troponin I 0.082 ng/mL (<0.045) H 11/17/20 19:05 B-Natriuretic Peptide 4206.6 pg/mL (0-100) H 11/17/20 19:05 Total Protein 7.3 g/dL (6.4-8.2) 11/17/20 19:05 Albumin 2.8 g/dL (3.2-5.0) L 11/17/20 19:05 Globulin 4.5 g/dL (2.2-4.2) H 11/17/20 19:05 Albumin/Globulin Ratio 0.6 RATIO (0.9-2.4) L 11/17/20 19:05 Lipase 144 U/L (73-393) 11/17/20 19:05 - EKG Initial EKG Interpretation: Sinus Tachycardia - EKG demonstrates a sinus tachycardia with PAC. - Medical Decision Making Patient was taken off of CPAP from EMS and placed on BiPAP which made remarkable improvement in his work of breathing. Patient also received a DuoNeb and Solu- Medrol. He had taken to albuterol at home and received DuoNeb by EMS. The mottling his abdomen chest and lower extremities resolved and he was able to speak in full sentence. White count slightly elevated at 13 lactic acid 3.5. My interpretation of the chest x-ray is small pleural effusion otherwise negative. Patient had an ABG that showed a pH of 7.45 PCO2 42.4 PO2 of 120.8 and a bicarb of 29.6. This would go against a significant COPD exacerbation has been going on for 2 days. His beta natruretic peptide is significantly elevated at 4200. However clinically he has no rales his chest x-ray does not look like overt failure. He has no peripheral edema. Patient was a difficult IV stick and had multiple attempts multiple successful attempts but then the IV would blow once fluids were started. Therefore a right IJ triple-lumen catheter was placed under sterile ultrasound guidance using the modified Seldinger technique without difficulty. My interpretation of the post procedure x-ray is satisfactory placement of the line and no pneumothorax. My concerns is the potential for pulmonary embolism given his significant respiratory distress and hypoxemia. The patient was started on a heparin drip as I am informed that there cannot be a CTA performed through the power injectable central line. Patient developed hypotension and received a fluid bolus. His mean is now above 65. I do not see any infectious symptoms to make me think sepsis. Given his history of congestive heart failure we need to be judicious with fluids. I believe the elevated white count and elevated lactic and may very be due to his increased work of breathing and hypoxemia. Plan will be admission into the ICU. 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
[2020-11-17] MEDS: 0.9% Normal Saline 1,000 ML 150 ML IV (19:12)
--- NOTE | 2020-11-17 19:17 | RAD_ITS ---
INDICATION: respiratory failure EXAMINATION/TECHNIQUE: X-RAY - XR Chest 1 View COMPARISON: 10/24/2020. FINDINGS: Increased interstitial markings. Tortuous and calcified thoracic aorta. Median sternotomy wires present. Left-sided cardiac device. The heart is not enlarged. Trace right pleural effusion. No pneumothorax. No acute osseous abnormalities. RAD/Chest 1 View (Portable) IMPRESSION: Increased interstitial markings may represent edema and/or infection. Trace right pleural effusion. Electronically Signed: Jose Angel Lloyd MD at 19:41 EDT Tel , Service support ,
[2020-11-17 19:21] LABS: Allen Test Positive; Base Excess 6 mmol/L (-2 to +2); Bicarbonate 29.6 mmol/L (22-26); Blood Gas Specimen Type ART; FI02 30; O2 Delivery Device BiPAP; PEEP 6; PO2 123 mmHG (75-100); PS 10; RR 12; SITE R Radial; SO2 99 % (95-99); Total Carbon Dioxide 31 mmol/L; pCO2 42.4 mmHg (35-45); pH 7.45 (7.35-7.45)
[2020-11-17 19:33] LABS: Absolute Lymphocyte Count 1.66 X10^3/uL (0.83-4.51); Absolute Neutrophil Count 10.7 X10^3/uL (2.0-7.7); Basophil# 0.02 X10^3/uL; Basophil% 0.1 % (0-1); Hematocrit 41.1 % (40-54); Hemoglobin 13.1 g/dL (13.0-16.5); Lymphocyte # 1.66 X10^3/ul (0.83-4.51); Lymphocyte % 12.1 % (19-41); Mean Corp Hgb Conc 31.9 g/dL (32-36); Mean Corpuscular Hgb 28.8 pg (27.0-32.0); Mean Corpuscular Volume 90.3 fL (80-94); Mean Platelet Vol. 10.4 fl (6.2-12.0); Monocyte# 1.18 X10^3/uL; Monocyte% 8.6 % (0-10); NRBC Flagged by Analyzer 0 % (0-5); Neutrophil # 10.73 X10^3/uL (2.7-7.7); Neutrophil % 78.6 % (47-70); Platelet Count 280 K/mm3 (150-450); RBC Distribution Width CV 15.6 % (11.6-14.6); RBC Distribution Width SD 51.4 fl (35.1-43.9); Red Blood Count 4.55 M/mm3 (4.6-6.2); White Blood Count 13.7 K/mm3 (4.4-11.0)
[2020-11-17 19:42] LABS: International Normalized Ratio 1.2; Prothrombin Time (Protime)PT. 14.5 SECONDS (11.7-14.9)
[2020-11-17 19:43] LABS: Partial Thromboplast Time 30.9 Seconds (24.1-36.2)
[2020-11-17 19:52] LABS: ALB/GLOB Ratio 0.6 RATIO (0.9-2.4); AST(SGOT) 62 U/L (15-37); Alanine Aminotransfer ALT/SGPT 73 U/L (16-61); Albumin, Serum 2.8 g/dL (3.2-5.0); Alkaline Phosphatase 112 U/L (45-117); Anion Gap 11 (5-15); BUN 18 mg/dL (7-18); BUN/Creat Ratio 14.6 RATIO (10-20); Calcium,Total 8.7 mg/dL (8.5-10.1); Chloride 90 mmol/L (98-107); Creatinine, Serum 1.23 mg/dL (0.70-1.30); EST Glomerular Filtration Rate 62 mL/min (>60); Est Glom Filt Rate - Afr Amer 75 mL/min (>60); Estimated Creatinine Clearance 54.84 ml/min; Globulin 4.5 g/dL (2.2-4.2); Glucose 244 mg/dL (74-106); Lipase 144 U/L (73-393); Protein, Total 7.3 g/dL (6.4-8.2); Sodium Level 132 mmol/L (136-145)
[2020-11-17] MEDS: 0.9% Normal Saline 1,000 ML 999 ML IV (19:55)
[2020-11-17 20:12] LABS: Lactic Acid 3.5 mmol/L (0.4-1.9)
--- NOTE | 2020-11-17 20:50 | RAD_ITS ---
HISTORY: line placement ADDITIONAL HISTORY: None provided. EXAMINATION/TECHNIQUE: XR Chest 1 View AP/PA Number of images including paperwork: 1 COMPARISON: 11/17/2020 7:14 PM FINDINGS: LUNGS AND PLEURA: Right basilar airspace opacity and small right pleural effusion, minimally changed. No pneumothorax. C calcification.FAortic tortuosity.FStable.} UPPER ABDOMEN: Unremarkable. SKELETON AND SOFT TISSUES: {No acute skeletal findings.FNo acute skeletal findings. Degenerative changes.} OTHER DEVICES AND HARDWARE: Right sided central venous catheter tip near the cavoatrial junction. Pacemaker with left sided generator. Sternal wires and surgical clips. RAD/CXR for Line Placement IMPRESSION: No pneumothorax status post central line placement. at 2127 Reported and signed by: Ama Small MD Electronically Signed: Ama Small MD at 21:27 EDT Tel , Service support ,
--- NOTE | 2020-11-17 21:14 | HP.PCM_ITS ---
Problem List (1) Acute and chronic respiratory failure with hypoxia Status: Chronic (2) COPD exacerbation Status: Chronic (3) Lactic acidosis Status: Acute (4) Abnormal LFTs Status: Acute (5) Cardiac enzymes elevated Status: Acute (6) ARIADNA (obstructive sleep apnea) Status: Chronic (7) Nicotine dependence Status: Chronic Qualifiers: Nicotine product type: cigarettes Substance use status: unspecified nicotine-induced disorder Qualified Code(s): F17.219 - Nicotine dependence, cigarettes, with unspecified nicotine-induced disorders (8) Chronic systolic (congestive) heart failure Status: Chronic (9) Stented coronary artery Status: Chronic Comment: has had 7 stents as of 06/15/17 (10) Ischemic cardiomyopathy Status: Chronic Comment: 25% ejection fraction in November 2016 (11) Benign essential hypertension Status: Chronic (12) Gastroesophageal reflux disease Status: Chronic Qualifiers: Esophagitis presence: esophagitis presence not specified Qualified Code(s): K21.9 - Gastro-esophageal reflux disease without esophagitis (13) Hyperlipidemia Status: Chronic Qualifiers: Hyperlipidemia type: unspecified Qualified Code(s): E78.5 - Hyperlipidemia, unspecified (14) Type 2 diabetes mellitus Status: Chronic Qualifiers: Diabetes mellitus tank terminal gauger insulin use: without tank terminal gauger use Diabetes mellitus complication status: with other specified complication Qualified Code(s): E11.69 - Type 2 diabetes mellitus with other specified complication (15) CAD (coronary artery disease) Status: Chronic Qualifiers: Coronary Disease-Associated Artery/Lesion type: unspecified vessel or lesion type Stebbins vs. transplanted heart: iqugmiut heart History of Present Illness Date of Admission: 11/17/20 Chief Complaint: Dyspnea, acute respiratory failure. The patient is a 70 y/o M w/ PMHx: ESRD on HD, Chronic Systolic CHF/Ischemic cardiomyopathy, Hx VT s/p AICD, HTN, HLD, Chronic COPD/Emphysema/Chronic Bronchitis with chronic hypoxic respiratory failure with ongoing tobacco use, GERD, Diabetes mellitus type II, CAD s/p CABG x 3 and PCI x 10, Chronic back pain s/p back surgery x 2 with chronic L foot drop, Hx Intracranial hemorrhage recently with subdural hematoma following fall onto ice off of his dual antiplatelet therapy since 09/07/2020, Hx EtOH abuse sober x 26 years who presents to the [facility] ED on 11/17/20 with significant respiratory distress with EMS called his home secondary to severity of hypoxia noted to be in the 80s, pursed lip breathing, 1 word sentences noting initially shortness of breath began the day prior but is progressively worsened and more severe tonight with no associated fever, chills, chest discomfort. Work-up in the ED included T 97, temporally, heart rate initially 133, BP 144/130, respiratory rate 36, initially 100% on BiPAP given respiratory distress presentation with EMS with most recent vitals heart rate 89, BP 95/64, respiratory rate 20, 95% on BiPAP, CBC with WBC 13.7, hemoglobin 13.1, platelet 280 with left shift, unremarkable coags, ABG with pH 7.45, bicarb 29.6, O2 saturation 99, PCO2 42.4, PO2 123 on BiPAP, CMP with sodium 132, potassium 3.0, chloride 90, glucose 244, lactic acid 3.5, total bilirubin 2.30, AST/ALT 62/73, alk phos 112, troponin 0 0.082, lipase 144, blood culture x2 pending per ED, rapid Covid antigen negative per ED, chest x-ray with increased interstitial markings suspicious for edema and/or infection, trace right pleural effusion, EKG with sinus tachycardia with PACs with no acute evidence of ischemia. In the ED patient ministered normal saline, Solu-Medrol 125 mg IV x1 as well as DuoNeb therapy. Secondary to difficulty of access patient with central line placement. Past Medical History Past Medical History (Chronic Problems): Chronic Problems (Last Updated 09/24/20 @ 09:25 by Nafisa Coleman) Acute and chronic respiratory failure with hypoxia (Chronic) COPD exacerbation (Chronic) Presence of stent of bypass graft (Chronic ~09/22/20) Successful PCI with thrombectomy and BMS to SVG to OM per cardiac cath 09/22/20; PCI/EZ to SVG -LCX/OM 07/18/20 @ [facility] Atherosclerosis of coronary artery bypass graft without angina pectoris (Chronic) NSTEMI (non-ST elevated myocardial infarction) (Chronic) Subdural hematoma (Chronic) Smoking greater than 30 pack years (Chronic) Appropriate for low-dose CT lung screening due January 2021 History of left heart catheterization (Chronic 07/17/20) LEFT MAIN: Angiographically normal;LEFT ANTERIOR DESCENDING ARTERY: PROX LAD: Moderate calcification MID LAD: is occluded with the mid to distal vessel filling late, DIAGONAL 1: Proximal - is occluded with the distal vessel filling late and faintly; CIRCUMFLEX ARTERY: Mild luminal irregularities, MID CIRC: 50 % Stenosis; RIGHT CORONARY ARTERY: not evaluated (previously documented as chronically occluded); GRAFTS: HUMPHREY graft to the Mid LAD previously documented as small, atretic, and occluded; Saphenous Vein graft to the 1st Diagonal previously; documented as occluded; Saphenous Vein graft to the 1st OM previously placed stent is patent with subsequent mid 90 % stenosis and distal, pre bifurcation, hazy 75 % stenosis; Saphenous Vein graft to the RCA previously documented as occluded - per cardiac cath 07/17/20 - LVEF: by LV gram 15-20 %; Stebbins Multivessel CAD; Occluded iqugmiut mid LAD. Occluded iqugmiut proximal RCA. Occluded SVG to DIAG. Occluded SVG to RCA. Occluded HUMPHREY to LAD. Severe 85% stenosis in last remaining vessel of SVG to LCX with widely patent SVG stents. Severe LV dysfunction. Referred for immediate PCI: Will tx to [facility] for high risk PCI to last remaining vessel of SVG to OM. 06/29/19 per DJN @ [facility] Hypoxia, sleep related (Chronic) ARIADNA (obstructive sleep apnea) (Chronic) COPD (chronic obstructive pulmonary disease) (Chronic) FEV1 64% of predicted Obesity (BMI 30.0-34.9) (Chronic) Nicotine dependence (Chronic) Gout (Chronic) Degenerative cervical disc (Chronic) Chronic back pain (Chronic) Presence of automatic implantable cardioverter-defibrillator (Chronic) H/O coronary artery bypass surgery (Chronic ~2008) HUMPHREY-LAD, SVG-D1, SVG-OM Chronic renal failure, stage 3 (moderate) (Chronic) Chronic systolic (congestive) heart failure (Chronic) Stented coronary artery (Chronic ~12/2016) has had 7 stents as of 06/15/17 Ischemic cardiomyopathy (Chronic) 25% ejection fraction in November 2016 V-tach (Chronic) has an AICD Benign essential hypertension (Chronic) Gastroesophageal reflux disease (Chronic) Hyperlipidemia (Chronic) Type 2 diabetes mellitus (Chronic) Morbid obesity (Chronic) CAD (coronary artery disease) (Chronic) Medical History: Medical History (Last Updated 09/24/20 @ 09:25 by Nafisa Coleman) Presence of stent of bypass graft (Chronic) Onset Date: ~09/22/20 Z95.828 Successful PCI with thrombectomy and BMS to SVG to OM per cardiac cath 09/22/20; PCI/EZ to SVG -LCX/OM 07/18/20 @ [facility] Atherosclerosis of coronary artery bypass graft without angina pectoris (Chronic) I25.810 Nicotine dependence (Chronic) F17.200 Gout (Chronic) M10.9 Degenerative cervical disc (Chronic) M50.30 Chronic back pain (Chronic) M54.9, G89.29 Chronic renal failure, stage 3 (moderate) (Chronic) N18.3 Chronic systolic (congestive) heart failure (Chronic) I50.22 Ischemic cardiomyopathy (Chronic) I25.5 25% ejection fraction in November 2016 V-tach (Chronic) I47.2 has an AICD Benign essential hypertension (Chronic) I10 Gastroesophageal reflux disease (Chronic) K21.9 Hyperlipidemia (Chronic) E78.5 Type 2 diabetes mellitus (Chronic) E11.9 Morbid obesity (Chronic) E66.01 CAD (coronary artery disease) (Chronic) I25.10 Tubular adenoma of colon (Inactive) D12.6 Allergies chlorpromazine HCl [From Thorazine] Allergy (Severe, Verified 11/17/20 18:44) Hives PER PATIENT tramadol HCl [From Ultram] Allergy (Severe, Verified 11/17/20 18:44) Hives PER PATIENT codeine Allergy (Intermediate, Verified 11/17/20 18:44) Hives promethazine [From Phenergan] Allergy (Verified 11/17/20 18:44) confusion atorvastatin Adverse Reaction (Intermediate, Verified 11/17/20 18:44) LEG PAIN/CRAMPS LEG PAIN/CRAMPS cyclobenzaprine [From Flexeril] Adverse Reaction (Verified 11/17/20 18:44) Upset Stomach metformin Adverse Reaction (Verified 11/17/20 18:44) Upset Stomach naproxen Adverse Reaction (Verified 11/17/20 18:44) Upset Stomach Home Medications: Ambulatory Orders Medication Instructions Recorded Albuterol Aerosols [Ventolin 2.5 mg INHALATION Q4H PRN PRN 09/11/20 Aerosols] Allopurinol [Zyloprim] 300 mg PO DAILY 09/11/20 Glimepiride [Amaryl] 1 mg PO DAILY 09/11/20 Ipratropium/Albuterol Sulfate 3 ml IH Q6H PRN 09/11/20 [Iprat-Albut 0.5-3(2.5) mg/3 ml] Levetiracetam [Keppra] 500 mg PO DAILY 09/11/20 Levothyroxine [Synthroid] 25 mcg PO DAILY 09/11/20 Nicotine [Nicoderm Cq (PBKC)] 14 mg TRANSDERM. DAILY 09/11/20 Nitroglycerin [Nitrostat] 0.4 mg SL Q5M PRN 09/11/20 Oxycodone HCl/Acetaminophen 1 ea PO Q6H PRN 09/11/20 [Endocet 7.5-325 mg Tablet] Pantoprazole Sodium [Protonix] 40 mg PO DAILY 09/11/20 Umeclidinium Brm/Vilanterol Tr 1 ea IH DAILY 09/11/20 [Anoro Ellipta 62.5-25 Mcg INH] Furosemide [Lasix] 40 mg PO BID #10 tab 09/20/20 aspirin 81 mg tablet,delayed 81 mg PO DAILY 09/28/20 release carvedilol 3.125 mg tablet 3.125 mg PO BID 09/28/20 polyethylene glycol 3350 17 gram 17 g PO DAILY 09/28/20 oral powder packet ranolazine 500 mg tablet,extended 500 mg PO BID 09/28/20 release,12 hr Lisinopril [Zestril] 2.5 mg PO DAILY 09/29/20 Rosuvastatin Calcium [Crestor] 40 mg PO QHS 09/29/20 Ondansetron [Zofran Odt] 4 mg PO Q6H PRN PRN #15 tablet 10/14/20 Metoclopramide [Reglan] 10 mg PO 4X/DAY PRN PRN #20 tablet 10/24/20 Polyethylene Glycol 3350 [Miralax] 17 gm PO QHS PRN PRN #5 packet 10/24/20 Surgical History: Surgical History (Last Updated 09/24/20 @ 09:26 by Nafisa Coleman) History of left heart catheterization (Chronic) Onset Date: 07/17/20 Z98.890 LEFT MAIN: Angiographically normal;LEFT ANTERIOR DESCENDING ARTERY: PROX LAD: Moderate calcification MID LAD: is occluded with the mid to distal vessel filling late, DIAGONAL 1: Proximal - is occluded with the distal vessel filling late and faintly; CIRCUMFLEX ARTERY: Mild luminal irregularities, MID CIRC: 50 % Stenosis; RIGHT CORONARY ARTERY: not evaluated (previously documented as chronically occluded); GRAFTS: HUMPHREY graft to the Mid LAD previously documented as small, atretic, and occluded; Saphenous Vein graft to the 1st Diagonal previously; documented as occluded; Saphenous Vein graft to the 1st OM previously placed stent is patent with subsequent mid 90 % stenosis and distal, pre bifurcation, hazy 75 % stenosis; Saphenous Vein graft to the RCA previously documented as occluded - per cardiac cath 07/17/20 - LVEF: by LV gram 15-20 %; Stebbins Multivessel CAD; Occluded iqugmiut mid LAD. Occluded iqugmiut proximal RCA. Occluded SVG to DIAG. Occluded SVG to RCA. Occluded HUMPHREY to LAD. Severe 85% stenosis in last remaining vessel of SVG to LCX with widely patent SVG stents. Severe LV dysfunction. Referred for immediate PCI: Will tx to [facility] for high risk PCI to last remaining vessel of SVG to OM. 06/29/19 per DANA @ [facility] Presence of automatic implantable cardioverter-defibrillator (Chronic) Z95.810 H/O coronary artery bypass surgery (Chronic) Onset Date: ~2008 Z95.1 HUMPHREY-LAD, SVG-D1, SVG-OM Stented coronary artery (Chronic) Onset Date: ~12/2016 has had 7 stents as of 06/15/17 Presence of coronary angioplasty implant and graft Onset Date: ~09/22/20 Z95.5 Successful PCI with thrombectomy and BMS to SVG to OM per cardiac cath 09/22/20; PCI/EZ to SVG -LCX/OM 07/18/20 @ [facility] Hx of hernia repair (Inactive) Z98.890, Z87.19 Previous back surgery (Inactive) Z98.890 Surgical History: angioplasty - stents x 10, coronary bypass surgery, - - AICD placement, back surgery x 2, hernia repair, PCI. Psychiatric History: No pertinent psych hx Lives: Spouse/ Significant Other Smoking Status: Light Smoker (<10/day) - Patient smoking 1 to 5 cigarettes daily however with concurrent nicotine patch usage. Tobacco Use: Cigarettes Alcohol: Sober - Sober x 26 years. Drugs: None - *Family History Paternal Family History: Family History (Last Reviewed 07/16/20 @ 15:[address] Ravin Ortega, DO) Brother CAD (coronary artery disease) Myocardial infarction Sudden cardiac Mother Cancer Hypertension Father Cancer COPD (chronic obstructive pulmonary disease) History Items: Cancer, Heart Disease Maternal Family History: Family History (Last Reviewed 07/16/20 @ 15:[address] Ravin Ortega DO) Brother CAD (coronary artery disease) Myocardial infarction Sudden cardiac Mother Cancer Hypertension Father Cancer COPD (chronic obstructive pulmonary disease) History Items: Cancer - lung, Hypertension, - - Patient notes a paternal family history of chronic lung disease, lung cancer with history of tobacco use. Review of Systems Constitutional: Reports: Anorexia, Malaise, Weakness, Fatigue. Denies: Chills, Fever, Weight Change HEENT: Denies: Head Aches, Sinus Congestion, Sinus Drainage Cardiovascular: Denies: Chest Pain, Palpitations Respiratory: Reports: Shortness of Breath, Shortness of breath at rest, Shortness of breath upon exertion, Wheezing. Denies: Cough, Sputum production Gastrointestinal: Denies: Abdominal Pain, Nausea, Vomiting Genitourinary: Denies: Dysuria Musculoskeletal: Reports: Joint Pain. Denies: Joint Tenderness Skin: Denies: Rash, Wounds Neurological: Denies: Numbness, Tingling, Focal weakness Psychiatric: Denies: Anxiety, Depression, Homicidal Ideations, Suicidal Ideations Hematologic/ Lymphatic: Reports: Anemia, Easy Bruising, Easy Bleeding VTE Information - Inpt Only VTE Present on Admission: No VTE Mechan Device Prophylaxis: SCD's VTE Pharm Prophylaxis ordered?: Yes Patient Problems: Active and Suspected Problems (Last Updated 09/24/20 @ 09:25 by Nafisa Coleman) Lactic acidosis (Acute) Abnormal LFTs (Acute) Cardiac enzymes elevated (Acute) Subjective: Patient seated upright in the ED bed, BIPAP in place, improved from initial ED presentation, still lethargic. Objective: Physical Examination: General: Awakens to stimuli, intermittently alert, not answering orientation questions but will interact some before closing his eyes again, very lethargic, BiPAP in place, accessory muscle usage and evidence of respiratory distress lessening since initial presentation. Skin: normal color, turgor, no icterus, cyanosis. HEENT: AT/NC, EOMI, PERRLA, MM, no carotid bruits, no marked JVD noted. Lungs: Severely diffusely diminished breath sounds, greater bases, evidence of respiratory distress although lessening since initial ED presentation, BiPAP in place, lethargic, ongoing end expiratory wheezing, no specific rales at the bases. Heart: Improved, regular rate and rhythm; no gallop, rub audible. Abdomen: soft, NTTP, ND, normal BS, no HSM. Extremities: no cyanosis, clubbing, or edema. Neurological: Awakens to stimuli, intermittently alert, not answering orientation questions but will interact some before closing his eyes again, very lethargic; cognitive function not baseline intact; pupils equally reactive to light and accomodation; cranial nerves difficult to assess given acute presentation, moving all 4 extremities to stimuli, strength severely globally decreased secondary to acute presentation as noted. Psychiatric: affect appears lethargic, flat, respiratory distress lessening since initial ED presentation, no acute evidence of depressive or anxiety feelings. - Physical Exam Vitals/I&O's: Vital Signs Temp Pulse Resp BP Pulse Ox 97.0 F L 89 20 H 95/64 95 11/17/20 18:45 11/17/20 20:42 11/17/20 20:42 11/17/20 20:42 11/17/20 20:42 Oxygen Delivery Method Bi-pap Weight: 155 lb 6.814 oz Body Mass Index (BMI) 23.6 Finger Stick Blood Glucose 195 Intake and Output for Last 24 Hours 11/15/20 11/16/20 11/17/20 23:59 23:59 23:59 Intake Total 110 / 110 Balance 110 / 110 Microbiology Past 72 Hours 11/17/20 19:20 Nasal Secretion SARS-CoV-2 Antigen (Rapid) - Final Laboratory Results 11/17/20 19:05: WBC 13.7 H, RBC 4.55 L, Hgb 13.1, Hct 41.1, MCV 90.3, MCH 28.8, MCHC 31.9 L, RDW Std Deviation 51.4 H, RDW Coeff of Maggie 15.6 H, Plt Count 280, MPV 10.4, Immature Gran % (Auto) 0.600, Neut % (Auto) 78.6 H, Lymph % (Auto) 12.1 L, [place] % (Auto) 8.6, Eos % (Auto) 0.0, Baso % (Auto) 0.1, Absolute Neuts (auto) 10.7 H, Absolute Lymphs (auto) 1.66, Nucleated RBC % 0 11/17/20 19:05: Lactic Acid 3.5 H* 11/17/20 19:05: PT 14.5, INR 1.2, APTT 30.9 11/17/20 19:05: Sodium 132 L, Potassium 3.0 L, Chloride 90 L, Carbon Dioxide 31.0, Anion Gap 11, BUN 18, Creatinine 1.23, Estim Creat Clear Calc 54.84, Est GFR (MDRD) Af Amer 75, Est GFR (MDRD) Non-Af 62, BUN/Creatinine Ratio 14.6, Glucose 244 H, Calcium 8.7, Total Bilirubin 2.30 H, AST 62 H, ALT 73 H, Alkaline Phosphatase 112, Troponin I 0.082 H, Total Protein 7.3, Albumin 2.8 L, Globulin 4.5 H, Albumin/Globulin Ratio 0.6 L, Lipase 144 11/17/20 19:13: Specimen Type ART, Sample Site R Radial, pH 7.45, Bicarbonate Actual 29.6 H, Total CO2 31, Base Excess 6 H, O2 Saturation 99, O2 % 30, ABG pCO2 42.4, ABG pO2 123 H, Greg Test Positive, Respiration Rate 12, O2 Delivery Device BiPAP, POC PEEP 6, POC Pressure Suppt 10 Current Medications Sodium Chloride () 1,000 mls @ 150 mls/hr IV .Q6H40M ONE Stop: 11/18/20 01:24 Last Infusion: 11/17/20 19:56 Dose: 0 mls/hr Documented by: Assessment/Plan All Active Problems (Last Updated 09/24/20 @ 09:25 by Nafisa Coleman) Lactic acidosis (Acute) Abnormal LFTs (Acute) Chest pain (Acute) Cardiac enzymes elevated (Acute) The patient is a 70 y/o M w/ PMHx: ESRD on HD, Chronic Systolic CHF/Ischemic cardiomyopathy, Hx VT s/p AICD, HTN, HLD, Chronic COPD/Emphysema/Chronic Bronchitis with chronic hypoxic respiratory failure with ongoing tobacco use, GERD, Diabetes mellitus type II, CAD s/p CABG x 3 and PCI x 10, Chronic back pain s/p back surgery x 2 with chronic L foot drop, Hx Intracranial hemorrhage who presents to the [facility] ED on 11/17/20 with significant respiratory distress with EMS called his home secondary to severity of hypoxia noted to be in the 80s, pursed lip breathing, 1 word sentences noting initially shortness of breath began the day prior but is progressively worsened and more severe tonight. 1. Acute on Chronic (4L NC) Hypoxic Respiratory Failure secondary to Acute on Chronic COPD: Will admit to the ICU, continue BIPAP placement, ABG not marked appearing upon ED presentation, awaiting ability to perform CTPA but if unable to secondary to curent central access placement, may require anticoagulation with heparin drip until access able to be obtained but with history of fall w/ recent intracranial bleeding already on dual antiplt therapies certainly would prefer to know if anticoagulation a necessity. Will transition once improving to oxygen with wean as tolerated to home oxygen supplementation, continue ATC duonebs, PRN albuterol, IV methylprednisolone, HOB, IS parameters, IV Levaquin given WBC elevation with L shift and elevated LA with pending sputum cultures, respiratory viral panel. ICU/Pulmonary consulted, pending. BNP requested but appearance less suspicious for CHF exacerbation. Given hypotensive if notable and CTPA more consistent with CHF would require pressure therapy to be able to use IV diuresis. 2. Hypokalemia: Admission K+ 3.0, magnesium level requested, supplementation electrolyte ICU protocol requested, repeat level in AM. 3. Lactic acidosis: Admission lactic acid 3.5, again suspect secondary to #1, significant history ongoing likely 48 hours of severe hypoxia, will continue treatment as noted #1, trend lactic acid per protocol, judicious hydration given underlying CHF and cardiomyopathy history. 4. Abnormal LFTs: Admission total bilirubin 2.30, AST/LT 62/73, unclear specific etiology, questionably associated with acute presentation given likely ongoing 48 hours of significant hypoxia, progressively worsening with shock, will continue treatment as noted #1, repeat CMP in a.m., if further elevations may need to consider imaging, hepatic profile. 5. Chronic Systolic CHF, Ischemic Cardiomyopathy, questionable : 07/16/20 ECHO w/ severe segmental systolic dysfunction, EF 30%, moderately enlarged LA, mild decrease in lead thickening, moderate MVI, mild TR, mild diffuse AV thickening, borderline to mild enlarged aortic root, RVSP 42 mmHg, evidence of diastolic dysfunction. Will antiplt therapy, holding HTN regimens given hypotensive presentation, resume once improved. BNP pending, appearance not consistent with CHF exacerbation but as noted awaiting CTPA, need peripheral access first. 6. CAD w/ Recent NSTEMI w/ Indeterminant enzymes, improved: CABG x 3 HUMPHREY-LAD, SVG-D1, SVG-OM and PCI x 10, will continue home coreg, statin, sacubitril/valsartan regimen. 07/17/20 cardiac catheterization with elevated LV end-diastolic pressure, iqugmiut multivessel CAD, HUMPHREY to LAD noted to be small, atretic and occluded, SVG to DX 1 occluded, SVG to OM1 with prior stent patent with subsequent mid 90% stenosis and distal pre-bifurcation hazy approximate 75% stenosis, SVG to RCA occluded with at that time recommended risk factor modif ication, medical therapy, referred for PCI at [facility] with transfer to auto club travel counselor at their facility at that time secondary to complicated history. Will continue antiplt therapies, statin, holding HTN regimen given hypotensive presentation, resume once appropriate, trend cardiac enzymes, although currently improved from prior. 7. Hx Mechanical fall w/ Resulting Intracranial Hemorrhage (SDH 08/2020 secondary to Fall): Patient cleared most recently on 09/22/[address] Mace at [facility] to restart asa, plavix secondary to recent complicated presentation with NS TRACEY. 09/29/20 CT head follow-up most recently with No definite acute abnormality, persistent mild to moderate size subacute left subdural hematoma slightly smaller. Will continue home seizure prophylaxis keppra regimen. 8. Chronic Kidney Disease Stage III with prior noted JILLIAN requiring ESRD temporarily: Admission BUN/creat 18/1.23, improved from most recent previous 10/24/2020 BUN/creatinine 33/1.76, renal function has been consistently fluctuating especially upon presentation but in between these range has been 1.0-1.3, will continue to closely trend. 9. Diabetes mellitus type II: Hold oral home regimen, NPO status given #1, once improving transition to ADA diet, accu checks while NPO a 6 hours w/ ISS. 10. Hypertension: Will hold HTN regimen given hypotensive presentation, resume once appropriate, PRN hydralazine. 11. Hyperlipidemia: Will continue home statin. 12. Hypothyroidism: Will continue home synthroid regimen. 13. Former alcohol abuse: Sober x 26 years, encourage continued sobriety. 14. Tobacco Abuse: Encouraged cessation, inpatient consultation per RT, NR if desired. 15. GERD: Continue home PPI. 16. ARIADNA: Continue current continuous BIPAP, normally uses q HS. 17. DVT prophylaxis: SCDs, as noted planned CTPA once able given concern for possible PE, if noted would initiate heparin drip to be cautious; however, if unable to perform CTPA soon secondary to access difficulties may need to consider heparin drip early prior. 18. CODE status: Patient HCPOA is his and living will he notes is not in place, encouraged discussions with case management/social work to assist in setting up if he is interested. Discussed CODE status at length including difference between FULL code, DNR-CCA and DNR-CC status. Following discussions about the differences in these status, requested Full Code status. Advanced Care Planning Face to Face Time: 16 minutes. Inpatient E&M: 06997 Init Hosp L3 Procedures: 77111 Advncd Care Plan 30 Min
[2020-11-17 21:51] LABS: BNP,B-Type NATRIURETIC PEPTIDE 4206.6 pg/mL (0-100)
[2020-11-17] MEDS: Heparin Injection (Vial) 5,000 UNIT/ML VIAL 4500 UNIT IV (22:21)
[2020-11-17] MEDS: HEPARIN/D5w 25,000 UNITS 25,000 UNITS/250 ML IV.SOLN. 10 UNITS IV (22:25)
[2020-11-17 23:12] LABS: Magnesium 2.2 mg/dL (1.6-2.6)
[2020-11-17] MEDS: oxyCODONE 5 MG Tablet PO (23:15)
[2020-11-17] MEDS: Ranolazine 500 MG Tablet PO (23:15)
[2020-11-17] MEDS: Acetaminophen 325 MG Tablet 650 MG PO (23:16)
[2020-11-17] MEDS: levoFLOXacin IV 750 MG/150 ML BAG 100 MG IV (23:16)
[2020-11-17 23:27] LABS: Procalcitonin 0.16 ng/mL (0.00-0.09)
[2020-11-17 23:28] LABS: Reflex Lactate? Y
[2020-11-17] MEDS: 0.9% Normal Saline 1,000 ML 125 ML IV (23:30)
[2020-11-18] VITALS (85 sets, daily range): BP systolic 66–123; BP diastolic 45–86; PULSE 79–109; RESP 12–26; TEMP 36.2–37.1; O2SAT 93–974
[2020-11-18 00:04] LABS: Lactic Acid 1.2 mmol/L (0.4-1.9)
[2020-11-18] MEDS: Insulin Lispro 100 UNIT/ML INSULN.PEN SC ×5 (00:30→21:32)
--- NOTE | 2020-11-18 00:44 | CPS ---
Pt refuses bipap at this time. RN explained cautions of not wearing with pt refusing. RN placed pt on 3 lpm with oxygen sat 95%
--- NOTE | 2020-11-18 00:56 | NURSING ---
pt refused to wear bipap any longer, asking for more pain meds for his back pain, placed on 3lnc.
[2020-11-18 01:46] LABS: Bedside Glucose 191 mg/dL (70-110)
--- NOTE | 2020-11-18 02:11 | NURSING ---
bp cuff switched to the left arm, pt stated his left arm bp is always higher, bp was 66/51 right arm, then 90/58 left arm
[2020-11-18] MEDS: oxyCODONE 5 MG Tablet 7.5 MG PO ×3 (03:43→16:01)
[2020-11-18 04:29] LABS: Absolute Lymphocyte Count 0.66 X10^3/uL (0.83-4.51); Absolute Neutrophil Count 11.2 X10^3/uL (2.0-7.7); Basophil# 0.01 X10^3/uL; Basophil% 0.1 % (0-1); Eosinophil# 0.01 X10^3/uL; Eosinophils% 0.1 % (0-5); Hemoglobin 11.8 g/dL (13.0-16.5); Lymphocyte # 0.66 X10^3/ul (0.83-4.51); Lymphocyte % 5.4 % (19-41); Mean Corp Hgb Conc 31.9 g/dL (32-36); Mean Corpuscular Hgb 29.1 pg (27.0-32.0); Mean Corpuscular Volume 91.1 fL (80-94); Monocyte% 2.5 % (0-10); NRBC Flagged by Analyzer 0 % (0-5); Neutrophil # 11.19 X10^3/uL (2.7-7.7); Neutrophil % 91.6 % (47-70); Platelet Count 236 K/mm3 (150-450); RBC Distribution Width CV 15.4 % (11.6-14.6); RBC Distribution Width SD 50.5 fl (35.1-43.9); Red Blood Count 4.06 M/mm3 (4.6-6.2); White Blood Count 12.2 K/mm3 (4.4-11.0)
[2020-11-18 04:37] LABS: Partial Thromboplast Time 62.3 Seconds (24.1-36.2)
[2020-11-18 04:47] LABS: ALB/GLOB Ratio 0.7 RATIO (0.9-2.4); AST(SGOT) 37 U/L (15-37); Alanine Aminotransfer ALT/SGPT 58 U/L (16-61); Albumin, Serum 2.4 g/dL (3.2-5.0); Alkaline Phosphatase 97 U/L (45-117); Anion Gap 10 (5-15); BUN 20 mg/dL (7-18); BUN/Creat Ratio 17.5 RATIO (10-20); Calcium,Total 8.1 mg/dL (8.5-10.1); Chloride 91 mmol/L (98-107); Creatinine, Serum 1.14 mg/dL (0.70-1.30); EST Glomerular Filtration Rate 68 mL/min (>60); Est Glom Filt Rate - Afr Amer 82 mL/min (>60); Estimated Creatinine Clearance 59.17 ml/min; Globulin 3.6 g/dL (2.2-4.2); Glucose 170 mg/dL (74-106); Potassium 2.9 mmol/L (3.5-5.1); Sodium Level 133 mmol/L (136-145)
[2020-11-18 06:36] LABS: Bedside Glucose 178 mg/dL (70-110)
[2020-11-18] MEDS: Ipratropium/Albuterol Sulfate 3 ML AMPUL.NEB INHALATION ×4 (07:15→19:01)
--- NOTE | 2020-11-18 07:16 | ED.RN ---
[facility] called with critical lab results. CTA positive for PE. Spoke with Dr. Swanson she has been made aware of test results
--- NOTE | 2020-11-18 07:29 | PCM.PN.HOSP ---
Patient Problems: Active and Suspected Problems (Last Updated 09/24/20 @ 09:25 by Nafisa Coleman) Lactic acidosis (Acute) Abnormal LFTs (Acute) Acute hypoxemic respiratory failure (Acute) Hypokalemia (Acute) Elevated lactic acid level (Acute) Cardiac enzymes elevated (Acute) Reason for Visit: Acute hypoxic respiratory failure Pulmonary embolism Subjective: Patient is a 70-year-old gentleman with multiple comorbidities admitted with progressive shortness of breath.CTA of the chest obtained demonstrated lobar and segmental pulmonary emboli to the right lower lobe and right middle lobe. Was also found to have right-sided airspace consolidation and groundglass attenuation could be secondary to multifocal pneumonia and/or pulmonary infarcts. Patient was placed on noninvasive ventilation and admitted to the intensive care Objective: GENERAL: Cooperative HEENT: Atraumatic; EYES; Anicteric, Normal Conjunctiva NECK; supple, normal thyroid, RESPIRATORY: Diminished to auscultation CARDIOVASCULAR: Regular S1 S2, GI: soft, normoactive bowel sounds, : No Renal angle tenderness; EXTREMITIES: No edema, no clubbing, MUSCULOSKELETAL: no muscle waisting NEURO: Awake; no lateralizing signs. SKIN: No Rash PSYCH; Flat affect Vitals/I&O's: Vital Signs Temp Pulse Resp BP Pulse Ox 97.1 F L 95 21 H 110/72 100 11/18/20 05:00 11/18/20 07:16 11/18/20 07:16 11/18/20 06:00 11/18/20 06:00 Oxygen Flow Rate (L/min) 3 Oxygen Delivery Method Nasal Cannula Weight: 73.7 kg Body Mass Index (BMI) 24.2 Finger Stick Blood Glucose 195 Intake and Output for Last 24 Hours 11/16/20 11/17/20 11/18/20 23:59 23:59 23:59 Intake Total 1210 / 1210 413.92 / 413.92 Output Total 0 / 0 Balance 1210 / 1210 413.92 / 413.92 Microbiology Past 72 Hours 11/17/20 22:45 Mucosa - Nasopharyngeal Respiratory Panel (PCR) - Final 11/17/20 19:20 Nasal Secretion SARS-CoV-2 Antigen (Rapid) - Final Laboratory Results 11/17/20 19:05: WBC 13.7 H, RBC 4.55 L, Hgb 13.1, Hct 41.1, MCV 90.3, MCH 28.8, MCHC 31.9 L, RDW Std Deviation 51.4 H, RDW Coeff of Maggie 15.6 H, Plt Count 280, MPV 10.4, Immature Gran % (Auto) 0.600, Neut % (Auto) 78.6 H, Lymph % (Auto) 12.1 L, Taney % (Auto) 8.6, Eos % (Auto) 0.0, Baso % (Auto) 0.1, Absolute Neuts (auto) 10.7 H, Absolute Lymphs (auto) 1.66, Nucleated RBC % 0 11/17/20 19:05: Lactic Acid 3.5 H* 11/17/20 19:05: PT 14.5, INR 1.2, APTT 30.9 11/17/20 19:05: Sodium 132 L, Potassium 3.0 L, Chloride 90 L, Carbon Dioxide 31.0, Anion Gap 11, BUN 18, Creatinine 1.23, Estim Creat Clear Calc 54.84, Est GFR (MDRD) Af Amer 75, Est GFR (MDRD) Non-Af 62, BUN/Creatinine Ratio 14.6, Glucose 244 H, Calcium 8.7, Total Bilirubin 2.30 H, AST 62 H, ALT 73 H, Alkaline Phosphatase 112, Troponin I 0.082 H, Total Protein 7.3, Albumin 2.8 L, Globulin 4.5 H, Albumin/Globulin Ratio 0.6 L, Lipase 144 11/17/20 19:05: B-Natriuretic Peptide 4206.6 H 11/17/20 19:05: Magnesium 2.2 11/17/20 19:05: Procalcitonin 0.16 H 11/17/20 19:13: Specimen Type ART, Sample Site R Radial, pH 7.45, Bicarbonate Actual 29.6 H, Total CO2 31, Base Excess 6 H, O2 Saturation 99, O2 % 30, ABG pCO2 42.4, ABG pO2 123 H, Greg Test Positive, Respiration Rate 12, O2 Delivery Device BiPAP, POC PEEP 6, POC Pressure Suppt 10 11/17/20 23:35: Lactic Acid 1.2 11/18/20 00:05: Troponin I 0.083 H 11/18/20 00:27: POC Glucose 191 H 11/18/20 04:23: WBC 12.2 H, RBC 4.06 L, Hgb 11.8 L, Hct 37.0 L, MCV 91.1, MCH 29.1, MCHC 31.9 L, RDW Std Deviation 50.5 H, RDW Coeff of Maggie 15.4 H, Plt Count 236, MPV 10.0, Immature Gran % (Auto) 0.300, Neut % (Auto) 91.6 H, Lymph % (Auto) 5.4 L, Taney % (Auto) 2.5, Eos % (Auto) 0.1, Baso % (Auto) 0.1, Absolute Neuts (auto) 11.2 H, Absolute Lymphs (auto) 0.66 L, Nucleated RBC % 0 11/18/20 04:23: Sodium 133 L, Potassium 2.9 L, Chloride 91 L, Carbon Dioxide 32.0, Anion Gap 10, BUN 20 H, Creatinine 1.14, Estim Creat Clear Calc 59.17, Est GFR (MDRD) Af Amer 82, Est GFR (MDRD) Non-Af 68, BUN/Creatinine Ratio 17.5, Glucose 170 H, Calcium 8.1 L, Total Bilirubin 1.90 H, AST 37, ALT 58, Alkaline Phosphatase 97, Troponin I 0.071 H, Total Protein 6.0 L, Albumin 2.4 L, Globulin 3.6, Albumin/Globulin Ratio 0.7 L 11/18/20 04:23: APTT 62.3 H 11/18/20 05:49: POC Glucose 178 H Current Medications Acetaminophen (Acetaminophen 325 Mg Tablet) 650 mg PO Q6H PRN PRN PRN Reason: Pain Score 1-10/Temp > 100.7 F Last Admin: 11/17/20 23:16 Dose: 650 mg Documented by: Al Hydroxide/Mg Hydroxide (Mag Hydrox/Al Hydrox/Simeth 30 Ml Udc) 30 ml PO Q6H PRN PRN PRN Reason: Gastric Burning Albuterol Sulfate (Albuterol 2.5 Mg/3 Ml Vial.Neb.) 2.5 mg INHALATION Q2H PRN PRN PRN Reason: Dyspnea, wheezing Albuterol/Ipratropium (Ipratropium/Albuterol Sulfate 3 Ml Ampul.Neb) 3 ml INHALATION Q4HWA.RT CAROLYN Last Admin: 11/18/20 07:15 Dose: 3 ml Documented by: Allopurinol (Allopurinol 300 Mg Tablet) 300 mg PO DAILY [facility] Aspirin (Aspirin E.C. 81 Mg Tablet) 81 mg PO DAILY [facility] Dextrose (Dextrose 50%-Water 25 Gm/50 Ml Disp.Syrin) 0 gm IV X1 PRN; Protocol PRN Reason: Hypoglycemia Glucagon (Glucagon 1 Mg/Ml Syringe) 1 mg IM .X1 PRN PRN Reason: Hypoglycemia Guaifenesin (Guaifenesin 10 Ml Udc (200mg/10ml)) 10 ml PO Q4H PRN PRN PRN Reason: COUGH Heparin Sodium (Porcine) (Heparin Injection (Vial) 5,000 Unit/Ml Vial) 0 unit IV UD PRN; Protocol PRN Reason: dose adjustment Hydralazine HCl (Hydralazine 20 Mg/Ml Vial) 10 mg IV Q4H PRN PRN PRN Reason: SBP > 160 Sodium Chloride () 1,000 mls @ 125 mls/hr IV .Q8H [facility] Last Admin: 11/17/20 23:30 Dose: 125 mls/hr Documented by: Heparin Sodium/Dextrose () 25,000 units in 250 mls @ 10 mls/hr IV .Q25H [facility]; Protocol Last Admin: 11/17/20 23:20 Dose: Not Given Documented by: Levofloxacin (Levaquin Iv) 750 mg in 150 mls @ 100 mls/hr IV QHS [facility] Last Infusion: 11/18/20 02:57 Dose: Infused Documented by: Norepinephrine Bitartrate 8 mg (/ Sodium Chloride) 250 mls @ 9.375 mls/hr CONT INF .[id number] [facility]; Protocol Last Titration: 11/18/20 05:30 Dose: 10 mcg/min, 18.8 mls/hr Documented by: Insulin Human Lispro (Insulin Lispro 100 Unit/Ml Insuln.Pen) 0 unit SC Q6 [facility]; Protocol Last Admin: 11/18/20 05:51 Dose: 1 u Documented by: Levetiracetam (Levetiracetam 500 Mg Tablet) 500 mg PO DAILY [facility] Levothyroxine Sodium (Levothyroxine 25 Mcg Tablet) 25 mcg PO DAILY@0600 [facility] Magnesium Hydroxide (Magnesium Hydroxide 30 Ml Udc) 30 ml PO DAILY PRN PRN PRN Reason: Constipation Methylprednisolone (Methylprednisolone 40 Mg/Ml Vial) 40 mg IV Q8 [facility] Last Admin: 11/18/20 05:44 Dose: 40 mg Documented by: Metoclopramide HCl (Metoclopramide 10 Mg Tablet) 10 mg PO 4X/DAY PRN PRN PRN Reason: NAUSEA/VOMITING Nitroglycerin (Nitroglycerin (Inpatient Use) 0.4 Mg Tab.Subl) 0.4 mg SL Q5M PRN PRN Reason: CARDIAC/CHEST PAIN Nutritional Formula (Lactose Free) (Ensure Enlive 120 Ml Liquid) 120 ml PO 4X/DAY [facility] Ondansetron HCl (Ondansetron 4 Mg/2 Ml Vial) 4 mg IV Q8H PRN PRN PRN Reason: NAUSEA/VOMITING Oxycodone HCl (Oxycodone 5 Mg Tablet) 7.5 mg PO Q6H PRN PRN PRN Reason: Pain Score 4-5 Last Admin: 11/18/20 03:43 Dose: 7.5 mg Documented by: Pantoprazole Sodium (Pantoprazole Sodium 40 Mg Tablet) 40 mg PO DAILY [facility] Polyethylene Glycol (Polyethylene Glycol 3350 17 Gm Packet) 17 gm PO DAILY [facility] Prochlorperazine Edisylate (Prochlorperazine 10 Mg/2 Ml Vial) 5 mg IV Q4H PRN PRN PRN Reason: Breakthrough Nausea/Vomiting Psyllium Hydrophilic Mucilloid (Psyllium 1 Packet) 1 packet PO DAILY PRN PRN PRN Reason: Constipation Ranolazine (Ranolazine 500 Mg Tablet) 500 mg PO BID [facility] Last Admin: 11/17/20 23:15 Dose: 500 mg Documented by: Rosuvastatin Calcium (Rosuvastatin 20 Mg Tablet) 40 mg PO QHS [facility] Senna/Docusate Sodium (Senna/Docusate Sodium 1 Tablet) 2 tablet PO BID PRN PRN PRN Reason: Constipation Sodium Chloride (0.9% Saline Lock 10 Ml Syringe) 10 - 40 ml IV UD PRN PRN Reason: SALINE FLUSH Throat Lozenges (Benzocaine/Menthol 1 Lozenge) 1 lozenge MUCOUS MEM Q2H PRN PRN PRN Reason: SORE THROAT STROKE Vital Signs/Narrative: Vital Signs Temp Pulse Resp BP BP Pulse Ox 11/18/20 07:16 95 21 H 11/18/20 06:00 91 21 H 110/72 100 11/18/20 05:30 90 104/67 11/18/20 05:15 90 99/71 11/18/20 05:00 97.1 F L 92 21 H 90/59 L 90/59 L 100 11/18/20 04:45 94 96/58 L 11/18/20 04:30 92 100/65 11/18/20 04:15 96 109/71 11/18/20 04:00 96 22 H 104/84 H 104/84 H 100 11/18/20 03:45 97 108/72 Medical Necessity - Tobacco Use Smoking Status: Light Smoker (<10/day) Tobacco Use: Cigarettes Assessment/Plan All Active Problems (Last Updated 09/24/20 @ 09:25 by Nafisa Coleman) Lactic acidosis (Acute) Abnormal LFTs (Acute) Acute hypoxemic respiratory failure (Acute) Hypokalemia (Acute) Elevated lactic acid level (Acute) Chest pain (Acute) Cardiac enzymes elevated (Acute) Patient is a 70-year-old gentleman with multiple comorbidities admitted with progressive shortness of breath.CTA of the chest obtained demonstrated lobar and segmental pulmonary emboli to the right lower lobe and right middle lobe. Was also found to have right-sided airspace consolidation and groundglass attenuation could be secondary to multifocal pneumonia and/or pulmonary infarcts. Patient was placed on noninvasive ventilation and admitted to the intensive care 1. Acute hypoxic respiratory failure -Due to combination of pulmonary embolism, congestive heart failure as well as suspected community-acquired pneumonia admitted to the intensive care unit patient was managed on BiPAP, consultation placed to pulmonary medicine 2. Lobar and segmental pulmonary emboli to the right lower lobe and right middle lobe. -Patient started on heparin 2D echo ordered for RV function assessment due to the presence of suspected pulmonary infarction 3. Suspected pneumonia ?Superimposed on patient's Pulmonary infarction patient has elevated WBC count with elevated lactic acid as well as procalcitonin. Patient was started on Levaquin with supplemental oxygen 4. Acute on chronic chronic congestive heart failure with EF of 15% based on an echo obtained on 07/17/2020 Kidney disease stage III Echo from 07/17/2020 Moderately dilated left ventricle. Severe segmental systolic dysfunction (see wall motion). The estimated ejection fraction is 15 %. The left atrium is moderately enlarged. Mild diffuse mitral valve thickening. Moderate (2+) mitral valve insufficiency. Mild tricuspid valve insufficiency. Mild diffuse aortic valve thickening. Mild focal aortic valve calcification. Borderline to mildly enlarged aortic root. Right ventricular systolic pressure estimated to be 42 mmHg. There is evidence of diastolic dysfunction. Repeat echo ordered consultation placed to cardiology 5. Elevated troponin ?Possibly demand ischemia from above serial cardiac enzymes ordered echo ordered cardiology consulted 6. Severe hypotension ?Cardiogenic shock versus septic shock. Patient's Suspected (suspected pneumonia) being treated with antibiotics. Patient was started on Levophed which is currently being titrated to keep MAP greater than 50 7. CAD -with previous CABG and subsequent stent placement 8. Diabetes mellitus type II -patient's oral hypoglycemics held. Placed on long acting insulin, Accu-Cheks a.c. and at bedtime and covered with sliding scale insulin 9. Hypertension - Blood pressure controlled, home medications continued with dose adjustment as needed 10. COPD acute exacerbation -Placed on steroids as well as Levaquin in addition to bronchodilator treatment 11. Dyslipidemia -Patient is on statin therapy, continued at home dose 12. Hypothyroidism - Patient is on levothyroxine home dose continued 13. Ischemic cardiomyopathy -status post AICD placement 14. Hypokalemia -Corrected per protocol 15. Mild hyponatremia ?Monitoring electrolytes Clinical Impression(s) from Imaging Studies Chest CTA 11/18/20 22:35 IMPRESSION: 1. Lobar and segmental pulmonary emboli to the right lower lobe and right middle lobe. 2. Right-sided airspace consolidation and groundglass attenuation could be secondary to multifocal pneumonia and/or pulmonary infarcts. 3. Right-sided pleural effusion. 4. Nonspecific mediastinal lymphadenopathy. Inpatient E&M: [id number] [facility] L3
--- NOTE | 2020-11-18 07:38 | PCM.CON.CC ---
Reason for Consult Date of Consultation: 11/18/20 Reason for Consultation: Acute hypoxemic respiratory failure History of Present Illness: The patient is a 70-year-old male, with a history as outlined below, who presented to the emergency department on November 17 with complaints of gradually worsening shortness of breath over the last 48 to 72 hours. The patient has a known history of coronary artery disease status post CABG in April 2009 at [facility]. The patient then underwent revascularization in 2016 here at [facility]. The patient last underwent a cardiac catheterization in August 2020, which did require PCI with thrombectomy. In addition to the aforementioned, the patient has a known history of COPD and chronic nicotine dependency. His last PFTs from February 2020 revealed evidence of a moderate large airways obstructive impairment with symmetric reduction in diffusing capacity. The patient is currently prescribed Anoro daily. The patient does have a prolonged smoking history and does continue to smoke 1 pack of cigarettes per day. He denies a history of venous thromboembolic disease. He only utilizes supplemental oxygen at 3 L/min with sleep. On presentation to the emergency department, the patient was noted to be afebrile but was profoundly tachycardic and tachypneic. He required the use of noninvasive positive pressure ventilatory support. Initial laboratory evaluation revealed an elevated white blood cell count to 14,000. Coagulation profile was within normal limits. Arterial blood gas obtained on BiPAP revealed a pH of 7.45 with a corresponding PCO2 of 42 and PO2 of 123. Chemistry profile was notable for a sodium of 132, potassium of 3.0 and chloride of 90. Lactate was elevated to 3.5. Troponin was increased to 0.082. BNP was elevated to 4206. CTA chest revealed lobar and segmental pulmonary emboli to the right lower lobe and right middle lobe. There was evidence of nonconfluent groundglass changes in the right middle lobe along with a possible airspace consolidation and pleural effusion involving the right lower lobe. The patient initially received supplemental IV fluid hydration, aerosol treatments and IV steroids. He was also placed on a continuous heparin infusion. The patient was then admitted to the medical intensive care unit for further management. Overnight, the patient was weaned from BiPAP to nasal cannula supplemental oxygen. However, due to persistent hypotension, the patient was started on Levophed, which is currently infusing at 10 mcg/min. He denies any chest pain but does report the presence of shortness of breath and chronic low back pain. Past Medical History Past Medical History (Chronic Problems): Chronic Problems (Last Updated 09/24/20 @ 09:25 by Nafisa Coleman) Acute and chronic respiratory failure with hypoxia (Chronic) COPD exacerbation (Chronic) COPD (chronic obstructive pulmonary disease) (Chronic) Presence of stent of bypass graft (Chronic ~09/22/20) Successful PCI with thrombectomy and BMS to SVG to OM per cardiac cath 09/22/20; PCI/EZ to SVG -LCX/OM 07/18/20 @ [facility] Atherosclerosis of coronary artery bypass graft without angina pectoris (Chronic) NSTEMI (non-ST elevated myocardial infarction) (Chronic) Subdural hematoma (Chronic) Smoking greater than 30 pack years (Chronic) Appropriate for low-dose CT lung screening due January 2021 History of left heart catheterization (Chronic 07/17/20) LEFT MAIN: Angiographically normal;LEFT ANTERIOR DESCENDING ARTERY: PROX LAD: Moderate calcification MID LAD: is occluded with the mid to distal vessel filling late, DIAGONAL 1: Proximal - is occluded with the distal vessel filling late and faintly; CIRCUMFLEX ARTERY: Mild luminal irregularities, MID CIRC: 50 % Stenosis; RIGHT CORONARY ARTERY: not evaluated (previously documented as chronically occluded); GRAFTS: HUMPHREY graft to the Mid LAD previously documented as small, atretic, and occluded; Saphenous Vein graft to the 1st Diagonal previously; documented as occluded; Saphenous Vein graft to the 1st OM previously placed stent is patent with subsequent mid 90 % stenosis and distal, pre bifurcation, hazy 75 % stenosis; Saphenous Vein graft to the RCA previously documented as occluded - per cardiac cath 07/17/20 - LVEF: by LV gram 15-20 %; [place] Multivessel CAD; Occluded [place] mid LAD. [place] proximal RCA. Occluded SVG to DIAG. Occluded SVG to RCA. Occluded HUMPHREY to LAD. Severe 85% stenosis in last remaining vessel of SVG to LCX with widely patent SVG stents. Severe LV dysfunction. Referred for immediate PCI: Will tx to [facility] for high risk PCI to last remaining vessel of SVG to OM. 06/29/19 per DANA @ [facility] Hypoxia, sleep related (Chronic) ARIADNA (obstructive sleep apnea) (Chronic) COPD (chronic obstructive pulmonary disease) (Chronic) FEV1 64% of predicted Obesity (BMI 30.0-34.9) (Chronic) Nicotine dependence (Chronic) Gout (Chronic) Degenerative cervical disc (Chronic) Chronic back pain (Chronic) Presence of automatic implantable cardioverter-defibrillator (Chronic) H/O coronary artery bypass surgery (Chronic ~2008) HUMPHREY-LAD, SVG-D1, SVG-OM Chronic renal failure, stage 3 (moderate) (Chronic) Chronic systolic (congestive) heart failure (Chronic) Stented coronary artery (Chronic ~12/2016) has had 7 stents as of 06/15/17 Ischemic cardiomyopathy (Chronic) 25% ejection fraction in November 2016 V-tach (Chronic) has an AICD Benign essential hypertension (Chronic) Gastroesophageal reflux disease (Chronic) Hyperlipidemia (Chronic) Type 2 diabetes mellitus (Chronic) Morbid obesity (Chronic) CAD (coronary artery disease) (Chronic) Medical History: Medical History (Last Updated 09/24/20 @ 09:25 by Nafisa Coleman) Presence of stent of bypass graft (Chronic) Onset Date: ~09/22/20 Z95.828 Successful PCI with thrombectomy and BMS to SVG to OM per cardiac cath 09/22/20; PCI/EZ to SVG -LCX/OM 07/18/20 @ [facility] Atherosclerosis of coronary artery bypass graft without angina pectoris (Chronic) I25.810 Nicotine dependence (Chronic) F17.200 Gout (Chronic) M10.9 Degenerative cervical disc (Chronic) M50.30 Chronic back pain (Chronic) M54.9, G89.29 Chronic renal failure, stage 3 (moderate) (Chronic) N18.3 Chronic systolic (congestive) heart failure (Chronic) I50.22 Ischemic cardiomyopathy (Chronic) I25.5 25% ejection fraction in November 2016 V-tach (Chronic) I47.2 has an AICD Benign essential hypertension (Chronic) I10 Gastroesophageal reflux disease (Chronic) K21.9 Hyperlipidemia (Chronic) E78.5 Type 2 diabetes mellitus (Chronic) E11.9 Morbid obesity (Chronic) E66.01 CAD (coronary artery disease) (Chronic) I25.10 Tubular adenoma of colon (Inactive) D12.6 Allergies chlorpromazine HCl [From Thorazine] Allergy (Severe, Verified 11/17/20 18:44) Hives PER PATIENT tramadol HCl [From Ultram] Allergy (Severe, Verified 11/17/20 18:44) Hives PER PATIENT codeine Allergy (Intermediate, Verified 11/17/20 18:44) Hives promethazine [From Phenergan] Allergy (Verified 11/17/20 18:44) confusion atorvastatin Adverse Reaction (Intermediate, Verified 11/17/20 18:44) LEG PAIN/CRAMPS LEG PAIN/CRAMPS cyclobenzaprine [From Flexeril] Adverse Reaction (Verified 11/17/20 18:44) Upset Stomach metformin Adverse Reaction (Verified 11/17/20 18:44) Upset Stomach naproxen Adverse Reaction (Verified 11/17/20 18:44) Upset Stomach Home Medications: Ambulatory Orders Medication Instructions Recorded Albuterol Aerosols [Ventolin 2.5 mg INHALATION Q4H PRN PRN 09/11/20 Aerosols] Allopurinol [Zyloprim] 300 mg PO DAILY 09/11/20 Glimepiride [Amaryl] 1 mg PO DAILY 09/11/20 Ipratropium/Albuterol Sulfate 3 ml IH Q6H PRN 09/11/20 [Iprat-Albut 0.5-3(2.5) mg/3 ml] Levetiracetam [Keppra] 500 mg PO DAILY 09/11/20 Levothyroxine [Synthroid] 25 mcg PO DAILY 09/11/20 Nicotine [Nicoderm Cq (PBKC)] 14 mg TRANSDERM. DAILY 09/11/20 Nitroglycerin [Nitrostat] 0.4 mg SL Q5M PRN 09/11/20 Oxycodone HCl/Acetaminophen 1 ea PO Q6H PRN 09/11/20 [Endocet 7.5-325 mg Tablet] Pantoprazole Sodium [Protonix] 40 mg PO DAILY 09/11/20 Umeclidinium Brm/Vilanterol Tr 1 ea IH DAILY 09/11/20 [Anoro Ellipta 62.5-25 Mcg INH] Furosemide [Lasix] 40 mg PO BID #10 tab 09/20/20 aspirin 81 mg tablet,delayed 81 mg PO DAILY 09/28/20 release carvedilol 3.125 mg tablet 3.125 mg PO BID 09/28/20 polyethylene glycol 3350 17 gram 17 g PO DAILY 09/28/20 oral powder packet ranolazine 500 mg tablet,extended 500 mg PO BID 09/28/20 release,12 hr Lisinopril [Zestril] 2.5 mg PO DAILY 09/29/20 Rosuvastatin Calcium [Crestor] 40 mg PO QHS 09/29/20 Ondansetron [Zofran Odt] 4 mg PO Q6H PRN PRN #15 tablet 10/14/20 Metoclopramide [Reglan] 10 mg PO 4X/DAY PRN PRN #20 tablet 10/24/20 Polyethylene Glycol 3350 [Miralax] 17 gm PO QHS PRN PRN #5 packet 10/24/20 Surgical History: Surgical History (Last Updated 09/24/20 @ 09:26 by Nafisa Coleman) History of left heart catheterization (Chronic) Onset Date: 07/17/20 Z98.890 LEFT MAIN: Angiographically normal;LEFT ANTERIOR DESCENDING ARTERY: PROX LAD: Moderate calcification MID LAD: is occluded with the mid to distal vessel filling late, DIAGONAL 1: Proximal - is occluded with the distal vessel filling late and faintly; CIRCUMFLEX ARTERY: Mild luminal irregularities, MID CIRC: 50 % Stenosis; RIGHT CORONARY ARTERY: not evaluated (previously documented as chronically occluded); GRAFTS: HUMPHREY graft to the Mid LAD previously documented as small, atretic, and occluded; Saphenous Vein graft to the 1st Diagonal previously; documented as occluded; Saphenous Vein graft to the 1st OM previously placed stent is patent with subsequent mid 90 % stenosis and distal, pre bifurcation, hazy 75 % stenosis; Saphenous Vein graft to the RCA previously documented as occluded - per cardiac cath 07/17/20 - LVEF: by LV gram 15-20 %; [place] Multivessel CAD; [place] mid LAD. [place] proximal RCA. Occluded SVG to DIAG. Occluded SVG to RCA. Occluded HUMPHREY to LAD. Severe 85% stenosis in last remaining vessel of SVG to LCX with widely patent SVG stents. Severe LV dysfunction. Referred for immediate PCI: Will tx to [facility] for high risk PCI to last remaining vessel of SVG to OM. 06/29/19 per DANA @ [facility] Presence of automatic implantable cardioverter-defibrillator (Chronic) Z95.810 H/O coronary artery bypass surgery (Chronic) Onset Date: ~2008 Z95.1 HUMPHREY-LAD, SVG-D1, SVG-OM Stented coronary artery (Chronic) Onset Date: ~12/2016 has had 7 stents as of 06/15/17 Presence of coronary angioplasty implant and graft Onset Date: ~09/22/20 Z95.5 Successful PCI with thrombectomy and BMS to SVG to OM per cardiac cath 09/22/20; PCI/EZ to SVG -LCX/OM 07/18/20 @ [facility] Hx of hernia repair (Inactive) Z98.890, Z87.19 Previous back surgery (Inactive) Z98.890 Surgical History: angioplasty - stents x 10, coronary bypass surgery, - - AICD placement, back surgery x 2, hernia repair, PCI. Psychiatric History: No pertinent psych hx Lives: Spouse/ Significant Other Smoking Status: Light Smoker (<10/day) Tobacco Use: Cigarettes Alcohol: Sober - Sober x 26 years. Drugs: None - *Family History Paternal Family History: Family History (Last Reviewed 07/16/20 @ 15:[address] Ravin Ortega DO) Brother CAD (coronary artery disease) Myocardial infarction Sudden cardiac Mother Cancer Hypertension Father Cancer COPD (chronic obstructive pulmonary disease) History Items: Cancer, Heart Disease Maternal Family History: Family History (Last Reviewed 07/16/20 @ 15:[address] Ravin Ortega DO) Brother CAD (coronary artery disease) Myocardial infarction Sudden cardiac Mother Cancer Hypertension Father Cancer COPD (chronic obstructive pulmonary disease) History Items: Cancer - lung, Hypertension, - - Patient notes a paternal family history of chronic lung disease, lung cancer with history of tobacco use. Review of Systems Constitutional: Reports: Weakness, Fatigue. Denies: Chills, Fever Eyes: Denies: Blurred vision, Double vision HEENT: Denies: Head Aches, Sinus Congestion, Sinus Drainage Cardiovascular: Denies: Chest Pain Respiratory: Reports: Shortness of Breath. Denies: Cough Gastrointestinal: Denies: Abdominal Pain, Nausea, Vomiting Genitourinary: Denies: Dysuria Musculoskeletal: Reports: Back Pain Skin: Denies: Rash, Wounds Neurological: Denies: Numbness, Tingling, Focal weakness Psychiatric: Denies: Anxiety, Depression, Homicidal Ideations, Suicidal Ideations Hematologic/ Lymphatic: Denies: Hx of blood clot Patient Problems: Active and Suspected Problems (Last Updated 09/24/20 @ 09:25 by Nafisa Coleman) Lactic acidosis (Acute) Abnormal LFTs (Acute) Acute hypoxemic respiratory failure (Acute) Hypokalemia (Acute) Elevated lactic acid level (Acute) Cardiac enzymes elevated (Acute) Objective: The patient's most recent lab work, culture data and imaging studies have all been personally reviewed. Surface echocardiogram from June 2020 revealed a moderately dilated RV with severe segmental systolic dysfunction and an ejection fraction of 15%. Right ventricular systolic pressure was estimated to be 42 mmHg. Rapid coronavirus antigen testing was negative. Respiratory viral panel was negative. Blood cultures are pending. - Physical Exam Vitals/I&O's: Vital Signs Temp Pulse Resp BP Pulse Ox 97.1 F L 95 21 H 110/72 100 11/18/20 05:00 11/18/20 07:16 11/18/20 07:16 11/18/20 06:00 11/18/20 06:00 Oxygen Flow Rate (L/min) 3 Oxygen Delivery Method Nasal Cannula Weight: 162 lb 7.691 oz Body Mass Index (BMI) 24.2 Finger Stick Blood Glucose 195 Intake and Output for Last 24 Hours 11/16/20 11/17/20 11/18/20 23:59 23:59 23:59 Intake Total 1210 / 1210 413.92 / 413.92 Output Total 0 / 0 Balance 1210 / 1210 413.92 / 413.92 General: Alert, Cooperative HEENT: Atraumatic, Normocephalic Oral: No Gingival or Mucosal Lesions/ Ulcerations Neck: Supple, No Nodes, Trachea Midline, - - Right IJ triple-lumen catheter in place Lungs: Diminished, Tachypneic, Wheezes Cardiovascular: Regular rate, Regular Rhythm Abdomen: Bowel Sounds Present, Soft, Non Tender Extremities: No clubbing, No cyanosis, No edema Skin: No breakdown Musculoskeletal: No Tenderness to Palpation of Joints or Extremities, No Muscle Wasting Lymphatic: No Cervical, Supraclavicular, or Inguinal Adenopathy Neurological: Cranial nerves II-XII grossly intact, Neuro grossly intact Psych/Mental Status: Flat Affect Labs (Last 48 Hours) 11/17/20 11/17/20 11/17/20 19:05 19:05 19:05 WBC 13.7 H RBC 4.55 L Hgb 13.1 Hct 41.1 MCV 90.3 MCH 28.8 MCHC 31.9 L RDW Std Deviation 51.4 H RDW Coeff of Maggie 15.6 H Plt Count 280 MPV 10.4 Immature Gran % (Auto) 0.600 Neut % (Auto) 78.6 H Lymph % (Auto) 12.1 L [place] % (Auto) 8.6 Eos % (Auto) 0.0 Baso % (Auto) 0.1 Absolute Neuts (auto) 10.7 H Absolute Lymphs (auto) 1.66 Nucleated RBC % 0 PT 14.5 INR 1.2 APTT 30.9 Specimen Type Sample Site pH Bicarbonate Actual Total CO2 Base Excess O2 Saturation O2 % ABG pCO2 ABG pO2 Greg Test Respiration Rate O2 Delivery Device POC PEEP POC Pressure Suppt Sodium Potassium Chloride Carbon Dioxide Anion Gap BUN Creatinine Estim Creat Clear Calc Est GFR (MDRD) Af Amer Est GFR (MDRD) Non-Af BUN/Creatinine Ratio Glucose Lactic Acid 3.5 H* Calcium Magnesium Total Bilirubin AST ALT Alkaline Phosphatase Troponin I B-Natriuretic Peptide Total Protein Albumin Globulin Albumin/Globulin Ratio Lipase Procalcitonin POC Glucose 11/17/20 11/17/20 11/17/20 19:05 19:05 19:05 WBC RBC Hgb Hct MCV MCH MCHC RDW Std Deviation RDW Coeff of Maggie Plt Count MPV Immature Gran % (Auto) Neut % (Auto) Lymph % (Auto) [place] % (Auto) Eos % (Auto) Baso % (Auto) Absolute Neuts (auto) Absolute Lymphs (auto) Nucleated RBC % PT INR APTT Specimen Type Sample Site pH Bicarbonate Actual Total CO2 Base Excess O2 Saturation O2 % ABG pCO2 ABG pO2 Greg Test Respiration Rate O2 Delivery Device POC PEEP POC Pressure Suppt Sodium 132 L Potassium 3.0 L Chloride 90 L Carbon Dioxide 31.0 Anion Gap 11 BUN 18 Creatinine 1.23 Estim Creat Clear Calc 54.84 Est GFR (MDRD) Af Amer 75 Est GFR (MDRD) Non-Af 62 BUN/Creatinine Ratio 14.6 Glucose 244 H Lactic Acid Calcium 8.7 Magnesium 2.2 Total Bilirubin 2.30 H AST 62 H ALT 73 H Alkaline Phosphatase 112 Troponin I 0.082 H B-Natriuretic Peptide 4206.6 H Total Protein 7.3 Albumin 2.8 L Globulin 4.5 H Albumin/Globulin Ratio 0.6 L Lipase 144 Procalcitonin POC Glucose 11/17/20 11/17/20 11/17/20 19:05 19:13 23:35 WBC RBC Hgb Hct MCV MCH MCHC RDW Std Deviation RDW Coeff of Maggie Plt Count MPV Immature Gran % (Auto) Neut % (Auto) Lymph % (Auto) [place] % (Auto) Eos % (Auto) Baso % (Auto) Absolute Neuts (auto) Absolute Lymphs (auto) Nucleated RBC % PT INR APTT Specimen Type ART Sample Site R Radial pH 7.45 Bicarbonate Actual 29.6 H Total CO2 31 Base Excess 6 H O2 Saturation 99 O2 % 30 ABG pCO2 42.4 ABG pO2 123 H Greg Test Positive Respiration Rate 12 O2 Delivery Device BiPAP POC PEEP 6 POC Pressure Suppt 10 Sodium Potassium Chloride Carbon Dioxide Anion Gap BUN Creatinine Estim Creat Clear Calc Est GFR (MDRD) Af Amer Est GFR (MDRD) Non-Af BUN/Creatinine Ratio Glucose Lactic Acid 1.2 Calcium Magnesium Total Bilirubin AST ALT Alkaline Phosphatase Troponin I B-Natriuretic Peptide Total Protein Albumin Globulin Albumin/Globulin Ratio Lipase Procalcitonin 0.16 H POC Glucose 11/18/20 11/18/20 11/18/20 00:05 00:27 04:23 WBC 12.2 H RBC 4.06 L Hgb 11.8 L Hct 37.0 L MCV 91.1 MCH 29.1 MCHC 31.9 L RDW Std Deviation 50.5 H RDW Coeff of Maggie 15.4 H Plt Count 236 MPV 10.0 Immature Gran % (Auto) 0.300 Neut % (Auto) 91.6 H Lymph % (Auto) 5.4 L [place] % (Auto) 2.5 Eos % (Auto) 0.1 Baso % (Auto) 0.1 Absolute Neuts (auto) 11.2 H Absolute Lymphs (auto) 0.66 L Nucleated RBC % 0 PT INR APTT Specimen Type Sample Site pH Bicarbonate Actual Total CO2 Base Excess O2 Saturation O2 % ABG pCO2 ABG pO2 Greg Test Respiration Rate O2 Delivery Device POC PEEP POC Pressure Suppt Sodium Potassium Chloride Carbon Dioxide Anion Gap BUN Creatinine Estim Creat Clear Calc Est GFR (MDRD) Af Amer Est GFR (MDRD) Non-Af BUN/Creatinine Ratio Glucose Lactic Acid Calcium Magnesium Total Bilirubin AST ALT Alkaline Phosphatase Troponin I 0.083 H B-Natriuretic Peptide Total Protein Albumin Globulin Albumin/Globulin Ratio Lipase Procalcitonin POC Glucose 191 H 11/18/20 11/18/20 11/18/20 04:23 04:23 05:49 WBC RBC Hgb Hct MCV MCH MCHC RDW Std Deviation RDW Coeff of Maggie Plt Count MPV Immature Gran % (Auto) Neut % (Auto) Lymph % (Auto) [place] % (Auto) Eos % (Auto) Baso % (Auto) Absolute Neuts (auto) Absolute Lymphs (auto) Nucleated RBC % PT INR APTT 62.3 H Specimen Type Sample Site pH Bicarbonate Actual Total CO2 Base Excess O2 Saturation O2 % ABG pCO2 ABG pO2 Greg Test Respiration Rate O2 Delivery Device POC PEEP POC Pressure Suppt Sodium 133 L Potassium 2.9 L Chloride 91 L Carbon Dioxide 32.0 Anion Gap 10 BUN 20 H Creatinine 1.14 Estim Creat Clear Calc 59.17 Est GFR (MDRD) Af Amer 82 Est GFR (MDRD) Non-Af 68 BUN/Creatinine Ratio 17.5 Glucose 170 H Lactic Acid Calcium 8.1 L Magnesium Total Bilirubin 1.90 H AST 37 ALT 58 Alkaline Phosphatase 97 Troponin I 0.071 H B-Natriuretic Peptide Total Protein 6.0 L Albumin 2.4 L Globulin 3.6 Albumin/Globulin Ratio 0.7 L Lipase Procalcitonin POC Glucose 178 H Microbiology 11/17/20 22:45 Mucosa - Nasopharyngeal Respiratory Panel (PCR) - Final 11/17/20 19:20 Nasal Secretion SARS-CoV-2 Antigen (Rapid) - Final Clinical Impression(s) from Imaging Studies Chest X-Ray 11/17/20 19:17 IMPRESSION: Increased interstitial markings may represent edema and/or infection. Trace right pleural effusion. Electronically Signed: Jose Angel Lloyd MD at 19:41 EDT Tel , Service support , Chest X-Ray 11/17/20 20:50 IMPRESSION: No pneumothorax status post central line placement. at 2127 Reported and signed by: Ama Small MD Electronically Signed: Ama Small MD at 21:27 EDT Tel , Service support , Chest CTA 11/18/20 22:35 IMPRESSION: 1. Lobar and segmental pulmonary emboli to the right lower lobe and right middle lobe. 2. Right-sided airspace consolidation and groundglass attenuation could be secondary to multifocal pneumonia and/or pulmonary infarcts. 3. Right-sided pleural effusion. 4. Nonspecific mediastinal lymphadenopathy. N.B. : The above information has been verbally conveyed by Orly Turner MD to Abrahan Hernandez RN, RN, on 11/18/2020 07:15:51 (ET). Electronically Signed: Orly Turner MD at 7:22 EDT , Service support , ADDENDUM: 11/18/20728 IMPRESSION: 1. Lobar and segmental pulmonary emboli to the right lower lobe and right middle lobe. 2. Right-sided airspace consolidation and groundglass attenuation could be secondary to multifocal pneumonia and/or pulmonary infarcts. 3. Right-sided pleural effusion. 4. Nonspecific mediastinal lymphadenopathy. N.B. : The above information has been verbally conveyed by Orly Turner MD to Abrahan Hernandez RN, RN, on 11/18/2020 07:15:51 (ET). Electronically Signed: Orly Turner MD at 7:22 EDT , Service support , Current Medications Acetaminophen (Acetaminophen 325 Mg Tablet) 650 mg PO Q6H PRN PRN PRN Reason: Pain Score 1-10/Temp > 100.7 F Last Admin: 11/17/20 23:16 Dose: 650 mg Documented by: Al Hydroxide/Mg Hydroxide (Mag Hydrox/Al Hydrox/Simeth 30 Ml Udc) 30 ml PO Q6H PRN PRN PRN Reason: Gastric Burning Albuterol Sulfate (Albuterol 2.5 Mg/3 Ml Vial.Neb.) 2.5 mg INHALATION Q2H PRN PRN PRN Reason: Dyspnea, wheezing Albuterol/Ipratropium (Ipratropium/Albuterol Sulfate 3 Ml Ampul.Neb) 3 ml INHALATION Q4HWA.RT CAROLYN Last Admin: 11/18/20 07:15 Dose: 3 ml Documented by: Allopurinol (Allopurinol 300 Mg Tablet) 300 mg PO DAILY CAROLYN Aspirin (Aspirin E.C. 81 Mg Tablet) 81 mg PO DAILY CAROLYN Dextrose (Dextrose 50%-Water 25 Gm/50 Ml Disp.Syrin) 0 gm IV X1 PRN; Protocol PRN Reason: Hypoglycemia Glucagon (Glucagon 1 Mg/Ml Syringe) 1 mg IM .X1 PRN PRN Reason: Hypoglycemia Guaifenesin (Guaifenesin 10 Ml Udc (200mg/10ml)) 10 ml PO Q4H PRN PRN PRN Reason: COUGH Heparin Sodium (Porcine) (Heparin Injection (Vial) 5,000 Unit/Ml Vial) 0 unit IV UD PRN; Protocol PRN Reason: dose adjustment Hydralazine HCl (Hydralazine 20 Mg/Ml Vial) 10 mg IV Q4H PRN PRN PRN Reason: SBP > 160 Sodium Chloride () 1,000 mls @ 125 mls/hr IV .Q8H [facility] Last Admin: 11/17/20 23:30 Dose: 125 mls/hr Documented by: Heparin Sodium/Dextrose () 25,000 units in 250 mls @ 10 mls/hr IV .Q25H [facility]; Protocol Last Admin: 11/17/20 23:20 Dose: Not Given Documented by: Levofloxacin (Levaquin Iv) 750 mg in 150 mls @ 100 mls/hr IV QHS [facility] Last Infusion: 11/18/20 02:57 Dose: Infused Documented by: Norepinephrine Bitartrate 8 mg (/ Sodium Chloride) 250 mls @ 9.375 mls/hr CONT INF .[id number] [facility]; Protocol Last Titration: 11/18/20 05:30 Dose: 10 mcg/min, 18.8 mls/hr Documented by: Insulin Human Lispro (Insulin Lispro 100 Unit/Ml Insuln.Pen) 0 unit SC Q6 [facility]; Protocol Last Admin: 11/18/20 05:51 Dose: 1 u Documented by: Levetiracetam (Levetiracetam 500 Mg Tablet) 500 mg PO DAILY [facility] Levothyroxine Sodium (Levothyroxine 25 Mcg Tablet) 25 mcg PO DAILY@0600 [facility] Magnesium Hydroxide (Magnesium Hydroxide 30 Ml Udc) 30 ml PO DAILY PRN PRN PRN Reason: Constipation Methylprednisolone (Methylprednisolone 40 Mg/Ml Vial) 40 mg IV Q8 [facility] Last Admin: 11/18/20 05:44 Dose: 40 mg Documented by: Metoclopramide HCl (Metoclopramide 10 Mg Tablet) 10 mg PO 4X/DAY PRN PRN PRN Reason: NAUSEA/VOMITING Nitroglycerin (Nitroglycerin (Inpatient Use) 0.4 Mg Tab.Subl) 0.4 mg SL Q5M PRN PRN Reason: CARDIAC/CHEST PAIN Nutritional Formula (Lactose Free) (Ensure Enlive 120 Ml Liquid) 120 ml PO 4X/DAY [facility] Ondansetron HCl (Ondansetron 4 Mg/2 Ml Vial) 4 mg IV Q8H PRN PRN PRN Reason: NAUSEA/VOMITING Oxycodone HCl (Oxycodone 5 Mg Tablet) 7.5 mg PO Q6H PRN PRN PRN Reason: Pain Score 4-5 Last Admin: 11/18/20 03:43 Dose: 7.5 mg Documented by: Pantoprazole Sodium (Pantoprazole Sodium 40 Mg Tablet) 40 mg PO DAILY [facility] Polyethylene Glycol (Polyethylene Glycol 3350 17 Gm Packet) 17 gm PO DAILY [facility] Prochlorperazine Edisylate (Prochlorperazine 10 Mg/2 Ml Vial) 5 mg IV Q4H PRN PRN PRN Reason: Breakthrough Nausea/Vomiting Psyllium Hydrophilic Mucilloid (Psyllium 1 Packet) 1 packet PO DAILY PRN PRN PRN Reason: Constipation Ranolazine (Ranolazine 500 Mg Tablet) 500 mg PO BID [facility] Last Admin: 11/17/20 23:15 Dose: 500 mg Documented by: Rosuvastatin Calcium (Rosuvastatin 20 Mg Tablet) 40 mg PO QHS [facility] Senna/Docusate Sodium (Senna/Docusate Sodium 1 Tablet) 2 tablet PO BID PRN PRN PRN Reason: Constipation Sodium Chloride (0.9% Saline Lock 10 Ml Syringe) 10 - 40 ml IV UD PRN PRN Reason: SALINE FLUSH Throat Lozenges (Benzocaine/Menthol 1 Lozenge) 1 lozenge MUCOUS MEM Q2H PRN PRN PRN Reason: SORE THROAT Assessment/Plan Active and Suspected Problems (Last Updated 09/24/20 @ 09:25 by Nafisa Coleman) Lactic acidosis (Acute) Abnormal LFTs (Acute) Acute hypoxemic respiratory failure (Acute) Hypokalemia (Acute) Elevated lactic acid level (Acute) Cardiac enzymes elevated (Acute) RECOMMENDATIONS: 1. Wean supplemental oxygen to maintain saturations at or above 90%. 2. Continue empiric antimicrobials. Check strep and urine Legionella antigens along with MRSA screen. 3. Continue scheduled bronchodilators and IV steroids. 4. Discontinue fluids. 5. Continue Levophed to maintain a mean arterial pressure at or above 65 mmHg. 6. Obtain echocardiogram. 7. Electrolyte repletion as needed. 8. Continue heparin infusion for now. 9. Obtain cardiology consultation. IMPRESSIONS: 1. Acute hypoxemic respiratory failure/history of COPD The patient's presenting respiratory failure is likely multi factorial in etiology with acute PE, possible decompensated heart failure and community-acquired pneumonia contributing. Accordingly, the patient will be continued on a heparin infusion for the newly diagnosed lobar and segmental PE noted on CTA chest. The patient was also noted to have findings concerning for potential pneumonia in the right lower lobe along with an associated pleural effusion. Therefore, the patient will be maintained on antimicrobials. Given the patient's history of COPD, bronchodilators and IV steroids will be continued. The patient has been weaned from BiPAP this morning and is currently maintaining appropriate oxygen saturations on nasal cannula O2. Plan to wean supplemental oxygen to maintain saturations at or above 90%. Encourage incentive spirometer use. 2. Shock Unclear if this is strictly distributive shock in the setting of possible pneumonia versus cardiogenic in etiology. While the patient does have pulmonary emboli, there are small and segmental in nature and unlikely to cause the development of obstructive shock. For now, the patient will be continued on antimicrobials to address the possible pulmonary source of infection. In addition, Levophed will be continued to maintain a mean arterial pressure at or above 65 mmHg. Plan to obtain urgent echocardiogram as well, given the patient's history of ischemic cardiomyopathy and severely depressed ejection fraction. 3. Hypokalemia Electrolyte repletion as ordered. Recheck levels in the morning. 4. History of ischemic cardiomyopathy/systolic heart failure The patient does have a known history of coronary artery disease and did present with an elevated troponin and a BNP greater than 4000. However, the patient's current hemodynamic status would preclude the use of diuretics. Await results of repeat echocardiogram and input from cardiology. 5. Chronic tobacco dependency I have personally spent 4 minutes once again discussing the deleterious effects of continued tobacco use with the patient, including modalities which could be utilized to achieve a smoke-free lifestyle. Nicotine replacement therapy will be initiated while the patient is admitted to the hospital. 6. History of gout/diabetes mellitus/hypothyroidism/chronic back pain/GERD/hypertension/hyperlipidemia Complicates care, management, recovery and prognosis. Continue to hold antihypertensives. TIME: 39 minutes of critical care time, independent of procedures, was spent addressing the patient's acute hypoxemic respiratory failure, distributive versus cardiogenic shock, hypokalemia, history of ischemic cardiomyopathy, systolic heart failure, chronic tobacco dependency, review of all data and collaboration with the care team. [id number]) [phone]: [id number] Critical care first hour - Behavior Interventions Behavior Intervention: [id number] Smoking Cessation 3-10 min
--- NOTE | 2020-11-18 07:47 | ECHOCS_ITS ---
Reason For Study: Emboli Procedure This was a 2D Doppler, Color Flow transthoracic echocardiogram. The study was technically difficult. Contrast injection was performed. Left Ventricle Moderately dilated left ventricle. Severe segmental systolic dysfunction (see wall motion). The estimated ejection fraction is 10 %. Anterio-Basal: Hypokinetic. Lateral-Basal: Hypokinetic. Infero- Basal: Hypokinetic. Basal inferoseptal: Hypokinetic. Mid-Anterior : Akinetic. Mid-Lateral : Akinetic. Mid-Posterior: Akinetic. Mid-Inferior: Akinetic. Mid-inferoseptal : Akinetic. Mid- anteroseptal : Akinetic. [place] : Akinetic. Right Ventricle Normal RV size. ICD or pacer leads identified within the right ventricle. Mild global right ventricular systolic dysfunction. Atria The left atrium is moderately enlarged. Normal right atrium. ICD or pacer leads identified within the right atrium. No doppler evidence for ASD. Mitral Valve There is no mitral annular calcification. Mild diffuse mitral valve thickening. Mild papillary muscle dysfunction of the mitral valve. Moderate (2+) mitral valve insufficiency. Tricuspid Valve Normal tricuspid valve. Moderate (2+) tricuspid valve insufficiency. Right ventricular systolic pressure estimated to be 52 mmHg. Aortic Valve Trisinus/trileaflet aortic valve. Mild diffuse aortic valve thickening. Moderate diffuse aortic valve calcification. Mild aortic stenosis. Pulmonic Valve The pulmonic valve is not well visualized. Great Vessels Normal sized aortic root. Pericardium/Pleural No pericardial effusion. Medication Diluted definity 2ml given slow IV push to enhance endocardial definition. MMode/2D Measurements & Calculations LVIDd: 6.4 cm IVSd: 1.3 cm LVOT diam: 2.0 cm LVIDs: 5.2 cm LVPWd: 1.0 cm FS: 19.5 % LVOT area: 3.0 cm2 Ao root diam: 3.7 cm LAV(MOD-bp): 117.5 ml LVAd ap4: 66.8 cm2 LA dimension: 4.7 cm LAV(MOD-bp) Indexed: 61.9 ml/m2 LVLd ap4: 10.8 cm LAV(MOD-sp2): 121.5 ml EDV(MOD-sp4): 336.6 ml LAV(MOD-sp4): 113.6 ml EDV(sp4-el): 350.4 ml LVAs ap4: 58.8 cm2 LVLs ap4: 10.5 cm ESV(MOD-sp4): 268.9 ml ESV(sp4-el): 278.4 ml EF(MOD-sp4): 20.1 % EF(sp4-el): 20.5 % SV(MOD-sp4): 67.6 ml SV(sp4-el): 71.9 ml LA A4 area: 30.0 cm2 RA A4 area: 17.6 cm2 Time Measurements MV dec time: 0.15 sec Doppler Measurements & Calculations MV E max jaspreet: 151.8 cm/sec Ao V2 max: 110.7 cm/sec LV V1 max: 66.3 cm/sec MV A max jaspreet: 47.3 cm/sec Ao max P.9 mmHg LV V1 max P.8 mmHg MV E/A: 3.2 DEMETRIS(V,D): 1.8 cm2 MR max jaspreet: 352.2 cm/sec TR max jaspreet: 332.3 cm/sec MR max P.6 mmHg TR max P.2 mmHg MR mean jaspreet: 247.3 cm/sec MR mean P.5 mmHg MR VTI: 96.2 cm ECHO/Echo Complete W/ Contrast Interpretation Summary The study was technically difficult. Contrast injection was performed. Moderately dilated left ventricle. Severe segmental systolic dysfunction (see wall motion). The estimated ejection fraction is 10 %. The left atrium is moderately enlarged. Mild diffuse mitral valve thickening. Mild papillary muscle dysfunction of the mitral valve. Moderate (2+) mitral valve insufficiency. Moderate (2+) tricuspid valve insufficiency. Mild diffuse aortic valve thickening. Moderate diffuse aortic valve calcification. Mild aortic stenosis. Right ventricular systolic pressure estimated to be 52 mmHg. Transmitral diastolic flow velocities suggest diastolic dysfunction (pseudonorm al pattern). ICD or pacer leads identified within the right atrium ICD or pacer leads identified within the right ventricle. Ordering Physician: Carlos Pop Referring Physician: LISA De La Vega M.D. Performed By: Clem Ovalle RCS
[2020-11-18] MEDS: BENZOCAINE/MENTHOL 1 LOZENGE MUCOUS MEM (08:02)
[2020-11-18] MEDS: Acetaminophen 325 MG Tablet 650 MG PO ×2 (08:02→21:18)
[2020-11-18] MEDS: Albuterol 2.5 MG/3 ML VIAL.NEB. INHALATION ×2 (09:20→21:30)
[2020-11-18] MEDS: levETIRAcetam 500 MG Tablet PO (09:56)
[2020-11-18] MEDS: Aspirin E.C. 81 MG Tablet PO (09:56)
[2020-11-18] MEDS: Pantoprazole Sodium 40 MG Tablet PO (09:57)
[2020-11-18] MEDS: Allopurinol 300 MG Tablet PO (09:57)
[2020-11-18] MEDS: Ranolazine 500 MG Tablet PO ×2 (09:57→21:19)
[2020-11-18] MEDS: 0.9% Saline Lock 10 ML Syringe IV ×2 (09:58→16:00)
[2020-11-18 10:14] LABS: Partial Thromboplast Time 44.1 Seconds (24.1-36.2)
[2020-11-18 12:36] LABS: Bedside Glucose 273 mg/dL (70-110)
[2020-11-18 13:19] LABS: Mucous, Urine 0 SEEN /hpf (<or=2+); Red Blood Cells-Urine 0 SEEN /hpf (0-5); White Blood Cells 0 SEEN /hpf (0-5)
[2020-11-18 13:23] LABS: Color, Urine Yellow (Yellow); Glucose, Dipstick Normal (Normal); Ketone-Dipstick 5 mg/dl (Negative); Leukocyte Esterase-Dipstick 25 /ul (Negative); Nitrite-Dipstick Negative (Negative); Occult Blood-Urine 10 /ul (Negative); Protein-Dipstick 30 mg/dl (Negative); Urine Clarity Sl. Cloudy (Clear); Urine Urobilinogen 8 mg/dl (Normal)
[2020-11-18 13:25] LABS: Urine Bilirubin Dipstick 1 mg/dL (Negative)
[2020-11-18 13:29] LABS: Squamous Epithelial Cells - UA 0-5 SEEN /hpf (0-5)
[2020-11-18 13:30] LABS: Bacteria RARE /hpf (None Seen); Hyaline Cast 0-5 SEEN /lpf (0-5)
[2020-11-18] MEDS: Glucerna Shake 120 ML LIQUID PO (14:12)
[2020-11-18] MEDS: HEPARIN/D5w 25,000 UNITS 25,000 UNITS/250 ML IV.SOLN. 11 UNITS IV (14:53)
[2020-11-18 16:15] LABS: Bedside Glucose 188 mg/dL (70-110)
[2020-11-18 17:00] LABS: Partial Thromboplast Time 44.1 Seconds (24.1-36.2)
[2020-11-18 17:07] LABS: Potassium 3.1 mmol/L (3.5-5.1)
--- NOTE | 2020-11-18 18:00 | NURSING ---
education re chronic illness deferred till acute illness resolving
[2020-11-18 18:12] LABS: M R Staph aureus DNA By PCR Negative (Negative); Probe Check PASS; Specimen Processing Control PASS
--- NOTE | 2020-11-18 19:25 | PCM.CONS.C ---
Reason for Consult Date of Consultation: 11/18/20 Reason for Consultation: Shortness of breath, CHF History of Present Illness: The patient is a 70 year [id number] white male with a past medical history of underlying CAD, PCI, CABG with recent thrombectomy and PCI of SVG to OM, ischemic mediated cardiomyopathy, chronic systolic CHF, status post dual-chamber ICD placement, hyperlipidemia, hypertension, diabetes mellitus, COPD, chronic renal insufficiency,status post subdural hematoma presents with significant dyspnea. He was hypotensive and was started on Levophed drip. He was also found to have PE but his symptoms were felt to be out of proportion to his PE. He has not been on IV Lasix. However patient states that he feels significantly better since admission. He has been on a heparin drip. Review of systems: All systems reviewed. All else is negative except that in HPI Past Medical History Allergies/Adverse Reactions: Allergies chlorpromazine HCl [From Thorazine] Allergy (Severe, Verified 11/17/20 18:44) Hives PER PATIENT tramadol HCl [From Ultram] Allergy (Severe, Verified 11/17/20 18:44) Hives PER PATIENT codeine Allergy (Intermediate, Verified 11/17/20 18:44) Hives promethazine [From Phenergan] Allergy (Verified 11/17/20 18:44) confusion atorvastatin Adverse Reaction (Intermediate, Verified 11/17/20 18:44) LEG PAIN/CRAMPS LEG PAIN/CRAMPS cyclobenzaprine [From Flexeril] Adverse Reaction (Verified 11/17/20 18:44) Upset Stomach metformin Adverse Reaction (Verified 11/17/20 18:44) Upset Stomach naproxen Adverse Reaction (Verified 11/17/20 18:44) Upset Stomach Home Medications: Ambulatory Orders Medication Instructions Recorded Albuterol Aerosols [Ventolin 2.5 mg INHALATION Q4H PRN PRN 09/11/20 Aerosols] Allopurinol [Zyloprim] 300 mg PO DAILY 09/11/20 Glimepiride [Amaryl] 1 mg PO DAILY 09/11/20 Ipratropium/Albuterol Sulfate 3 ml IH Q6H PRN 09/11/20 [Iprat-Albut 0.5-3(2.5) mg/3 ml] Levetiracetam [Keppra] 500 mg PO DAILY 09/11/20 Levothyroxine [Synthroid] 25 mcg PO DAILY 09/11/20 Nicotine [Nicoderm Cq (PBKC)] 14 mg TRANSDERM. DAILY 09/11/20 Nitroglycerin [Nitrostat] 0.4 mg SL Q5M PRN 09/11/20 Oxycodone HCl/Acetaminophen 1 ea PO Q6H PRN 09/11/20 [Endocet 7.5-325 mg Tablet] Pantoprazole Sodium [Protonix] 40 mg PO DAILY 09/11/20 Umeclidinium Brm/Vilanterol Tr 1 ea IH DAILY 09/11/20 [Anoro Ellipta 62.5-25 Mcg INH] Furosemide [Lasix] 40 mg PO BID #10 tab 09/20/20 aspirin 81 mg tablet,delayed 81 mg PO DAILY 09/28/20 release carvedilol 3.125 mg tablet 3.125 mg PO BID 09/28/20 polyethylene glycol 3350 17 gram 17 g PO DAILY 09/28/20 oral powder packet ranolazine 500 mg tablet,extended 500 mg PO BID 09/28/20 release,12 hr Lisinopril [Zestril] 2.5 mg PO DAILY 09/29/20 Rosuvastatin Calcium [Crestor] 40 mg PO QHS 09/29/20 Ondansetron [Zofran Odt] 4 mg PO Q6H PRN PRN #15 tablet 10/14/20 Metoclopramide [Reglan] 10 mg PO 4X/DAY PRN PRN #20 tablet 10/24/20 Polyethylene Glycol 3350 [Miralax] 17 gm PO QHS PRN PRN #5 packet 10/24/20 Past Medical History (Chronic Problems): Chronic Problems (Last Updated 09/24/20 @ 09:25 by Nafisa Coleman) Acute and chronic respiratory failure with hypoxia (Chronic) COPD exacerbation (Chronic) COPD (chronic obstructive pulmonary disease) (Chronic) Presence of stent of bypass graft (Chronic ~09/22/20) Successful PCI with thrombectomy and BMS to SVG to OM per cardiac cath 09/22/20; PCI/EZ to SVG -LCX/OM 07/18/20 @ [facility] Atherosclerosis of coronary artery bypass graft without angina pectoris (Chronic) NSTEMI (non-ST elevated myocardial infarction) (Chronic) Subdural hematoma (Chronic) Smoking greater than 30 pack years (Chronic) Appropriate for low-dose CT lung screening due January 2021 History of left heart catheterization (Chronic 07/17/20) LEFT MAIN: Angiographically normal;LEFT ANTERIOR DESCENDING ARTERY: PROX LAD: Moderate calcification MID LAD: is occluded with the mid to distal vessel filling late, DIAGONAL 1: Proximal - is occluded with the distal vessel filling late and faintly; CIRCUMFLEX ARTERY: Mild luminal irregularities, MID CIRC: 50 % Stenosis; RIGHT CORONARY ARTERY: not evaluated (previously documented as chronically occluded); GRAFTS: HUMPHREY graft to the Mid LAD previously documented as small, atretic, and occluded; Saphenous Vein graft to the 1st Diagonal previously; documented as occluded; Saphenous Vein graft to the 1st OM previously placed stent is patent with subsequent mid 90 % stenosis and distal, pre bifurcation, hazy 75 % stenosis; Saphenous Vein graft to the RCA previously documented as occluded - per cardiac cath 07/17/20 - LVEF: by LV gram 15-20 %; [place] Multivessel CAD; Occluded ho-chunk mid LAD. Occluded ho-chunk proximal RCA. Occluded SVG to DIAG. Occluded SVG to RCA. Occluded HUMPHREY to LAD. Severe 85% stenosis in last remaining vessel of SVG to LCX with widely patent SVG stents. Severe LV dysfunction. Referred for immediate PCI: Will tx to [facility] for high risk PCI to last remaining vessel of SVG to OM. 06/29/19 per DANA @ [facility] Hypoxia, sleep related (Chronic) ARIADNA (obstructive sleep apnea) (Chronic) COPD (chronic obstructive pulmonary disease) (Chronic) FEV1 64% of predicted Obesity (BMI 30.0-34.9) (Chronic) Nicotine dependence (Chronic) Gout (Chronic) Degenerative cervical disc (Chronic) Chronic back pain (Chronic) Presence of automatic implantable cardioverter-defibrillator (Chronic) H/O coronary artery bypass surgery (Chronic ~2008) HUMPHREY-LAD, SVG-D1, SVG-OM Chronic renal failure, stage 3 (moderate) (Chronic) Chronic systolic (congestive) heart failure (Chronic) Stented coronary artery (Chronic ~12/2016) has had 7 stents as of 06/15/17 Ischemic cardiomyopathy (Chronic) 25% ejection fraction in November 2016 V-tach (Chronic) has an AICD Benign essential hypertension (Chronic) Gastroesophageal reflux disease (Chronic) Hyperlipidemia (Chronic) Type 2 diabetes mellitus (Chronic) Morbid obesity (Chronic) CAD (coronary artery disease) (Chronic) Surgical History: angioplasty - stents x 10, coronary bypass surgery, - - AICD placement, back surgery x 2, hernia repair, PCI. Psychiatric History: No pertinent psych hx - *Family History Paternal Family History: Family History (Last Reviewed 07/16/20 @ 15:[address] Ravin Ortega DO) Brother CAD (coronary artery disease) Myocardial infarction Sudden cardiac Mother Cancer Hypertension Father Cancer COPD (chronic obstructive pulmonary disease) History Items: Cancer, Heart Disease Maternal Family History: Family History (Last Reviewed 07/16/20 @ 15:[address] Ravin Ortega DO) Brother CAD (coronary artery disease) Myocardial infarction Sudden cardiac Mother Cancer Hypertension Father Cancer COPD (chronic obstructive pulmonary disease) History Items: Cancer - lung, Hypertension, - - Patient notes a paternal family history of chronic lung disease, lung cancer with history of tobacco use. Lives: Spouse/ Significant Other Smoking Status: Light Smoker (<10/day) Tobacco Use: Cigarettes Alcohol: Sober - Sober x 26 years. Drugs: None Objective: Vital Signs Temp Pulse Resp BP Pulse Ox 97.8 F 94 23 H 92/53 L 99 11/18/20 16:00 11/18/20 17:00 11/18/20 17:00 11/18/20 18:45 11/18/20 17:00 Oxygen Flow Rate (L/min) 3 Oxygen Delivery Method Nasal Cannula Weight: 162 lb 7.691 oz Body Mass Index (BMI) 24.2 Finger Stick Blood Glucose 195 Intake and Output for Last 24 Hours 11/16/20 11/17/20 11/18/20 23:59 23:59 23:59 Intake Total 1210 / 1210 2390.55 / 2390.55 Output Total 475 / 475 Balance 1210 / 1210 1915.55 / 1915.55 General: Awake, Alert, Oriented x 3 HEENT: Atraumatic Oral: Moist Mucosa Neck: Supple Lungs: Clear to auscultation Cardiovascular: Regular Rhythm 11/17/20 19:05: WBC 13.7 H, RBC 4.55 L, Hgb 13.1, Hct 41.1, MCV 90.3, MCH 28.8, MCHC 31.9 L, Plt Count 280, MPV 10.4, Immature Gran % (Auto) 0.600, Neut % (Auto) 78.6 H, Lymph % (Auto) 12.1 L, Story % (Auto) 8.6, Eos % (Auto) 0.0, Baso % (Auto) 0.1, Absolute Neuts (auto) 10.7 H, Nucleated RBC % 0 11/17/20 19:05: Lactic Acid 3.5 H* 11/17/20 19:05: PT 14.5, INR 1.2, APTT 30.9 11/17/20 19:05: Sodium 132 L, Potassium 3.0 L, Chloride 90 L, Carbon Dioxide 31.0, Anion Gap 11, BUN 18, Creatinine 1.23, Est GFR (MDRD) Af Amer 75, Est GFR (MDRD) Non-Af 62, BUN/Creatinine Ratio 14.6, Glucose 244 H, Calcium 8.7, Total Bilirubin 2.30 H, Troponin I 0.082 H 11/17/20 19:05: B-Natriuretic Peptide 4206.6 H 11/17/20 19:05: Magnesium 2.2 11/17/20 23:35: Lactic Acid 1.2 11/18/20 00:05: Troponin I 0.083 H 11/18/20 04:23: WBC 12.2 H, RBC 4.06 L, Hgb 11.8 L, Hct 37.0 L, MCV 91.1, MCH 29.1, MCHC 31.9 L, Plt Count 236, MPV 10.0, Immature Gran % (Auto) 0.300, Neut % (Auto) 91.6 H, Lymph % (Auto) 5.4 L, Story % (Auto) 2.5, Eos % (Auto) 0.1, Baso % (Auto) 0.1, Absolute Neuts (auto) 11.2 H, Nucleated RBC % 0 11/18/20 04:23: Sodium 133 L, Potassium 2.9 L, Chloride 91 L, Carbon Dioxide 32.0, Anion Gap 10, BUN 20 H, Creatinine 1.14, Est GFR (MDRD) Af Amer 82, Est GFR (MDRD) Non-Af 68, BUN/Creatinine Ratio 17.5, Glucose 170 H, Calcium 8.1 L, Total Bilirubin 1.90 H, Troponin I 0.071 H 11/18/20 04:23: APTT 62.3 H 11/18/20 09:45: APTT 44.1 H 11/18/20 13:10: Urine Color Yellow, Urine Clarity Sl. Cloudy, Urine pH 6.0, Ur Specific [place] 1.010, Urine Protein 30 H, Urine Glucose (UA) Normal, Urine Ketones 5 H, Urine Occult Blood 10 H, Urine Nitrite Negative, Urine Bilirubin 1 H, Urine Urobilinogen 8 H, Ur Leukocyte Esterase 25 H, Urine RBC 0 SEEN, Urine WBC 0 SEEN 11/18/20 16:20: APTT 44.1 H 11/18/20 16:36: Potassium 3.1 L Rhythm: EKG: ECHO: Stress Test: Cardiac Cath: PCI: CT Surgery: Holter monitor: EPS: PPM: CXR: Chest CT Scan: Assessment/Plan 1. Shortness of breath: Possibly due to combination of CHF and PE. Patient's Levophed is being weaned off. Will be reasonable to start the patient on his home medications from a CHF standpoint. Due to patient's low blood pressure I think will be reasonable. Start this slowly. Will be reasonable to start him on Coreg alone and then if blood pressure tolerates add lisinopril. Lasix can be started at 40 mg daily instead of twice daily if blood pressure continues to remain significantly low. 2. CAD: Patient had recent thrombectomy and bare-metal stent placement to SVG to OM. Patient is currently only on aspirin due to history of subdural hematoma. He seems to have done well with this. At this point continue aspirin alone as patient will likely need oral anticoagulation from a PE standpoint as well.
[2020-11-18] MEDS: TITRATION PARAMETER CHANGE 1 EACH IV ×2 (19:52→19:56)
[2020-11-18] MEDS: oxyCODONE 5 MG Tablet 10 MG PO (21:18)
[2020-11-18] MEDS: Rosuvastatin 20 MG Tablet 40 MG PO (21:19)
[2020-11-18] MEDS: levoFLOXacin IV 750 MG/150 ML BAG 100 MG IV (21:20)
[2020-11-18 21:41] LABS: Bedside Glucose 265 mg/dL (70-110)
--- NOTE | 2020-11-18 22:35 | CT_ITS ---
STUDY: CTA CHEST REASON FOR EXAM: Male, 70 years old. Hypoxia, respiratory failure -- Please perform once peripheral access obtained RADIATION DOSAGE (If Supplied By Facility): CTDIvol = ( 18.85 ) mGy, DLP = ( 525.03 ) mGycm TECHNIQUE: The examination was performed with the intravenous administration of 100mL of Isovue-370. Post-processing of the angiographic images was performed, with multiplanar reformation and 3D reconstruction. Individualized dose optimization techniques were used for this CT. COMPARISON: CT of the chest dated 05/02/2019. FINDINGS: Cardiac monitoring leads are present. Patient has a left-sided intracardiac pacemaker and defibrillator. Patient has had a sternotomy. Normal enhancement of the main pulmonary artery and right and left pulmonary arteries. Normal enhancement of the bilateral peripheral pulmonary arteries. There are lobar and segmental pulmonary emboli to the right lower lobe and right middle lobe. There is prominence of the main pulmonary arteries without peripheral pulmonary vascular congestion, suggesting pulmonary hypertension. There is atherosclerotic calcification of the aortic arch with tortuosity. There is insufficient enhancement of the aorta to exclude dissection. There is cardiomegaly. There are enlarged mediastinal lymph nodes. Normal hilar regions. Normal visualized trachea and bronchi. The lungs are hyper expanded, with flattening of the hemidiaphragms. There is right middle lobe groundglass attenuation. There is right lower lobe airspace consolidation and atelectasis. Left lung appears to be clear. There is a right-sided pleural effusion. Normal chest wall structures. There is deformity of bilateral ribs consistent with old rib fractures. There are degenerative changes of the lower thoracic spine and upper lumbar spine. Normal visualized upper abdomen. CT/CTA Chest W/WO Contrast IMPRESSION: 1. Lobar and segmental pulmonary emboli to the right lower lobe and right middle lobe. 2. Right-sided airspace consolidation and groundglass attenuation could be secondary to multifocal pneumonia and/or pulmonary infarcts. 3. Right-sided pleural effusion. 4. Nonspecific mediastinal lymphadenopathy. N.B. : The above information has been verbally conveyed by Orly Turner MD to Abrahan Hernandez RN, RN, on 11/18/2020 07:15:51 (ET). Electronically Signed: Orly Turner MD at 7:22 EDT , Service support ,
[2020-11-19] VITALS (42 sets, daily range): BP systolic 70–102; BP diastolic 33–90; PULSE 84–100; RESP 14–25; TEMP 36.2–36.8; O2SAT 94–100
[2020-11-19 00:04] LABS: Partial Thromboplast Time 57.3 Seconds (24.1-36.2)
[2020-11-19] MEDS: MELATONIN 3 MG TABLET PO (00:18)
[2020-11-19] MEDS: oxyCODONE 5 MG Tablet 10 MG PO ×5 (01:32→23:14)
[2020-11-19] MEDS: Albuterol 2.5 MG/3 ML VIAL.NEB. INHALATION ×2 (03:20→12:47)
[2020-11-19] MEDS: Acetaminophen 325 MG Tablet 650 MG PO (05:32)
[2020-11-19] MEDS: Levothyroxine 25 MCG TABLET PO (05:38)
[2020-11-19 05:50] LABS: Absolute Lymphocyte Count 0.59 X10^3/uL (0.83-4.51); Absolute Neutrophil Count 10.4 X10^3/uL (2.0-7.7); Basophil# 0.01 X10^3/uL; Basophil% 0.1 % (0-1); Hematocrit 35.2 % (40-54); Hemoglobin 11.3 g/dL (13.0-16.5); Lymphocyte # 0.59 X10^3/ul (0.83-4.51); Mean Corp Hgb Conc 32.1 g/dL (32-36); Mean Corpuscular Hgb 29.4 pg (27.0-32.0); Mean Corpuscular Volume 91.4 fL (80-94); Mean Platelet Vol. 10.3 fl (6.2-12.0); NRBC Flagged by Analyzer 0 % (0-5); Neutrophil # 10.37 X10^3/uL (2.7-7.7); Neutrophil % 88.5 % (47-70); POSITIVE DIFFERENTIAL YES; Platelet Count 203 K/mm3 (150-450); RBC Distribution Width CV 15.6 % (11.6-14.6); RBC Distribution Width SD 52.1 fl (35.1-43.9); Red Blood Count 3.85 M/mm3 (4.6-6.2); White Blood Count 11.7 K/mm3 (4.4-11.0)
[2020-11-19 05:58] LABS: Differential Indicated SCAN CRITERIA MET
[2020-11-19 06:06] LABS: ALB/GLOB Ratio 0.6 RATIO (0.9-2.4); AST(SGOT) 29 U/L (15-37); Alanine Aminotransfer ALT/SGPT 54 U/L (16-61); Albumin, Serum 2.2 g/dL (3.2-5.0); Alkaline Phosphatase 97 U/L (45-117); Anion Gap 5 (5-15); BUN 25 mg/dL (7-18); BUN/Creat Ratio 22.5 RATIO (10-20); Calcium,Total 8.5 mg/dL (8.5-10.1); Chloride 95 mmol/L (98-107); Creatinine, Serum 1.11 mg/dL (0.70-1.30); EST Glomerular Filtration Rate 70 mL/min (>60); Est Glom Filt Rate - Afr Amer 84 mL/min (>60); Estimated Creatinine Clearance 60.77 ml/min; Globulin 3.6 g/dL (2.2-4.2); Glucose 169 mg/dL (74-106); Magnesium 2.1 mg/dL (1.6-2.6); Phosphorus 2.8 mg/dL (2.5-4.9); Potassium 3.6 mmol/L (3.5-5.1); Protein, Total 5.8 g/dL (6.4-8.2); Sodium Level 133 mmol/L (136-145)
[2020-11-19] MEDS: Ipratropium/Albuterol Sulfate 3 ML AMPUL.NEB INHALATION ×4 (06:40→20:00)
--- NOTE | 2020-11-19 07:43 | PN_ITS ---
Subjective: Patient did okay overnight. Patient feels subjectively unchanged compared to previous. Patient denies any current chest pain, nominal pain, nausea or vomiting. No bleeding has been reported. Cardiology did adjust goals of pressor therapy overnight. Objective: Patient continues to require Levophed at 2 mics to maintain blood pressure General: Alert, Oriented x3, Cooperative, No apparent distress HEENT: Atraumatic, PERRLA, EOMI, Normocephalic Oral: Moist Mucosa, No Gingival or Mucosal Lesions/ Ulcerations Neck: Supple, No JVD, No Nodes, Trachea Midline, - - Right IJ is clean, dry and intact Lungs: No rhonchi, No rales, Diminished, Wheezes Cardiovascular: Regular rate, Regular Rhythm, Normal S1, Normal S2, No murmurs, No rub noted, No Gallop Abdomen: Bowel Sounds Present, Soft, Non Tender, Non-Distended Extremities: No clubbing, No cyanosis, No edema Skin: No rashes, No breakdown Musculoskeletal: No Tenderness to Palpation of Joints or Extremities Lymphatic: No Cervical, Supraclavicular, or Inguinal Adenopathy Neurological: Cranial nerves II-XII grossly intact, Neuro grossly intact, Motor Exam 5/5 strength throughout Psych/Mental Status: Alert and oriented to time, place, person, mood and affect Vital Signs Temp Pulse Resp BP Pulse Ox 36.7 C 90 19 H 95/65 99 11/19/20 04:00 11/19/20 06:41 11/19/20 06:41 11/19/20 06:00 11/19/20 06:41 Oxygen Flow Rate (L/min) 3 Oxygen Delivery Method Nasal Cannula Weight: 76.3 kg Body Mass Index (BMI) 24.2 Finger Stick Blood Glucose 195 Intake and Output for Last 24 Hours 11/17/20 11/18/20 11/19/20 23:59 23:59 23:59 Intake Total 1210 / 1210 2849.45 / 2973.25 240.4 / 240.4 Output Total 475 / 475 100 / 100 Balance 1210 / 1210 2374.45 / 2498.25 140.4 / 140.4 Labs (Last 48 Hours) 11/17/20 11/17/20 11/17/20 19:05 19:05 19:05 WBC 13.7 H RBC 4.55 L Hgb 13.1 Hct 41.1 MCV 90.3 MCH 28.8 MCHC 31.9 L RDW Std Deviation 51.4 H RDW Coeff of Maggie 15.6 H Plt Count 280 MPV 10.4 Immature Gran % (Auto) 0.600 Neut % (Auto) 78.6 H Lymph % (Auto) 12.1 L [place] % (Auto) 8.6 Eos % (Auto) 0.0 Baso % (Auto) 0.1 Absolute Neuts (auto) 10.7 H Absolute Lymphs (auto) 1.66 Nucleated RBC % 0 PT 14.5 INR 1.2 APTT 30.9 Specimen Type Sample Site pH Bicarbonate Actual Total CO2 Base Excess O2 Saturation O2 % ABG pCO2 ABG pO2 Greg Test Respiration Rate O2 Delivery Device POC PEEP POC Pressure Suppt Sodium Potassium Chloride Carbon Dioxide Anion Gap BUN Creatinine Estim Creat Clear Calc Est GFR (MDRD) Af Amer Est GFR (MDRD) Non-Af BUN/Creatinine Ratio Glucose Lactic Acid 3.5 H* Calcium Phosphorus Magnesium Total Bilirubin AST ALT Alkaline Phosphatase Troponin I B-Natriuretic Peptide Total Protein Albumin Globulin Albumin/Globulin Ratio Lipase Procalcitonin Urine Color Urine Clarity Urine pH Ur Specific [place] Urine Protein Urine Glucose (UA) Urine Ketones Urine Occult Blood Urine Nitrite Urine Bilirubin Urine Urobilinogen Ur Leukocyte Esterase Urine RBC Urine WBC Ur Squamous Epith Cells Urine Bacteria Hyaline Casts Urine Mucus MRSA (PCR) POC Glucose 11/17/20 11/17/20 11/17/20 19:05 19:05 19:05 WBC RBC Hgb Hct MCV MCH MCHC RDW Std Deviation RDW Coeff of Maggie Plt Count MPV Immature Gran % (Auto) Neut % (Auto) Lymph % (Auto) [place] % (Auto) Eos % (Auto) Baso % (Auto) Absolute Neuts (auto) Absolute Lymphs (auto) Nucleated RBC % PT INR APTT Specimen Type Sample Site pH Bicarbonate Actual Total CO2 Base Excess O2 Saturation O2 % ABG pCO2 ABG pO2 Greg Test Respiration Rate O2 Delivery Device POC PEEP POC Pressure Suppt Sodium 132 L Potassium 3.0 L Chloride 90 L Carbon Dioxide 31.0 Anion Gap 11 BUN 18 Creatinine 1.23 Estim Creat Clear Calc 54.84 Est GFR (MDRD) Af Amer 75 Est GFR (MDRD) Non-Af 62 BUN/Creatinine Ratio 14.6 Glucose 244 H Lactic Acid Calcium 8.7 Phosphorus Magnesium 2.2 Total Bilirubin 2.30 H AST 62 H ALT 73 H Alkaline Phosphatase 112 Troponin I 0.082 H B-Natriuretic Peptide 4206.6 H Total Protein 7.3 Albumin 2.8 L Globulin 4.5 H Albumin/Globulin Ratio 0.6 L Lipase 144 Procalcitonin Urine Color Urine Clarity Urine pH Ur Specific [place] Urine Protein Urine Glucose (UA) Urine Ketones Urine Occult Blood Urine Nitrite Urine Bilirubin Urine Urobilinogen Ur Leukocyte Esterase Urine RBC Urine WBC Ur Squamous Epith Cells Urine Bacteria Hyaline Casts Urine Mucus MRSA (PCR) POC Glucose 11/17/20 11/17/20 11/17/20 19:05 19:13 23:35 WBC RBC Hgb Hct MCV MCH MCHC RDW Std Deviation RDW Coeff of Maggie Plt Count MPV Immature Gran % (Auto) Neut % (Auto) Lymph % (Auto) [place] % (Auto) Eos % (Auto) Baso % (Auto) Absolute Neuts (auto) Absolute Lymphs (auto) Nucleated RBC % PT INR APTT Specimen Type ART Sample Site R Radial pH 7.45 Bicarbonate Actual 29.6 H Total CO2 31 Base Excess 6 H O2 Saturation 99 O2 % 30 ABG pCO2 42.4 ABG pO2 123 H Greg Test Positive Respiration Rate 12 O2 Delivery Device BiPAP POC PEEP 6 POC Pressure Suppt 10 Sodium Potassium Chloride Carbon Dioxide Anion Gap BUN Creatinine Estim Creat Clear Calc Est GFR (MDRD) Af Amer Est GFR (MDRD) Non-Af BUN/Creatinine Ratio Glucose Lactic Acid 1.2 Calcium Phosphorus Magnesium Total Bilirubin AST ALT Alkaline Phosphatase Troponin I B-Natriuretic Peptide Total Protein Albumin Globulin Albumin/Globulin Ratio Lipase Procalcitonin 0.16 H Urine Color Urine Clarity Urine pH Ur Specific [place] Urine Protein Urine Glucose (UA) Urine Ketones Urine Occult Blood Urine Nitrite Urine Bilirubin Urine Urobilinogen Ur Leukocyte Esterase Urine RBC Urine WBC Ur Squamous Epith Cells Urine Bacteria Hyaline Casts Urine Mucus MRSA (PCR) POC Glucose 11/18/20 11/18/20 11/18/20 00:05 00:27 04:23 WBC 12.2 H RBC 4.06 L Hgb 11.8 L Hct 37.0 L MCV 91.1 MCH 29.1 MCHC 31.9 L RDW Std Deviation 50.5 H RDW Coeff of Maggie 15.4 H Plt Count 236 MPV 10.0 Immature Gran % (Auto) 0.300 Neut % (Auto) 91.6 H Lymph % (Auto) 5.4 L [place] % (Auto) 2.5 Eos % (Auto) 0.1 Baso % (Auto) 0.1 Absolute Neuts (auto) 11.2 H Absolute Lymphs (auto) 0.66 L Nucleated RBC % 0 PT INR APTT Specimen Type Sample Site pH Bicarbonate Actual Total CO2 Base Excess O2 Saturation O2 % ABG pCO2 ABG pO2 Greg Test Respiration Rate O2 Delivery Device POC PEEP POC Pressure Suppt Sodium Potassium Chloride Carbon Dioxide Anion Gap BUN Creatinine Estim Creat Clear Calc Est GFR (MDRD) Af Amer Est GFR (MDRD) Non-Af BUN/Creatinine Ratio Glucose Lactic Acid Calcium Phosphorus Magnesium Total Bilirubin AST ALT Alkaline Phosphatase Troponin I 0.083 H B-Natriuretic Peptide Total Protein Albumin Globulin Albumin/Globulin Ratio Lipase Procalcitonin Urine Color Urine Clarity Urine pH Ur Specific [place] Urine Protein Urine Glucose (UA) Urine Ketones Urine Occult Blood Urine Nitrite Urine Bilirubin Urine Urobilinogen Ur Leukocyte Esterase Urine RBC Urine WBC Ur Squamous Epith Cells Urine Bacteria Hyaline Casts Urine Mucus MRSA (PCR) POC Glucose 191 H 11/18/20 11/18/20 11/18/20 04:23 04:23 05:49 WBC RBC Hgb Hct MCV MCH MCHC RDW Std Deviation RDW Coeff of Maggie Plt Count MPV Immature Gran % (Auto) Neut % (Auto) Lymph % (Auto) [place] % (Auto) Eos % (Auto) Baso % (Auto) Absolute Neuts (auto) Absolute Lymphs (auto) Nucleated RBC % PT INR APTT 62.3 H Specimen Type Sample Site pH Bicarbonate Actual Total CO2 Base Excess O2 Saturation O2 % ABG pCO2 ABG pO2 Greg Test Respiration Rate O2 Delivery Device POC PEEP POC Pressure Suppt Sodium 133 L Potassium 2.9 L Chloride 91 L Carbon Dioxide 32.0 Anion Gap 10 BUN 20 H Creatinine 1.14 Estim Creat Clear Calc 59.17 Est GFR (MDRD) Af Amer 82 Est GFR (MDRD) Non-Af 68 BUN/Creatinine Ratio 17.5 Glucose 170 H Lactic Acid Calcium 8.1 L Phosphorus Magnesium Total Bilirubin 1.90 H AST 37 ALT 58 Alkaline Phosphatase 97 Troponin I 0.071 H B-Natriuretic Peptide Total Protein 6.0 L Albumin 2.4 L Globulin 3.6 Albumin/Globulin Ratio 0.7 L Lipase Procalcitonin Urine Color Urine Clarity Urine pH Ur Specific [place] Urine Protein Urine Glucose (UA) Urine Ketones Urine Occult Blood Urine Nitrite Urine Bilirubin Urine Urobilinogen Ur Leukocyte Esterase Urine RBC Urine WBC Ur Squamous Epith Cells Urine Bacteria Hyaline Casts Urine Mucus MRSA (PCR) POC Glucose 178 H 11/18/20 11/18/20 11/18/20 09:45 11:50 13:10 WBC RBC Hgb Hct MCV MCH MCHC RDW Std Deviation RDW Coeff of Maggie Plt Count MPV Immature Gran % (Auto) Neut % (Auto) Lymph % (Auto) [place] % (Auto) Eos % (Auto) Baso % (Auto) Absolute Neuts (auto) Absolute Lymphs (auto) Nucleated RBC % PT INR APTT 44.1 H Specimen Type Sample Site pH Bicarbonate Actual Total CO2 Base Excess O2 Saturation O2 % ABG pCO2 ABG pO2 Greg Test Respiration Rate O2 Delivery Device POC PEEP POC Pressure Suppt Sodium Potassium Chloride Carbon Dioxide Anion Gap BUN Creatinine Estim Creat Clear Calc Est GFR (MDRD) Af Amer Est GFR (MDRD) Non-Af BUN/Creatinine Ratio Glucose Lactic Acid Calcium Phosphorus Magnesium Total Bilirubin AST ALT Alkaline Phosphatase Troponin I B-Natriuretic Peptide Total Protein Albumin Globulin Albumin/Globulin Ratio Lipase Procalcitonin Urine Color Yellow Urine Clarity Sl. Cloudy Urine pH 6.0 Ur Specific [place] 1.010 Urine Protein 30 H Urine Glucose (UA) Normal Urine Ketones 5 H Urine Occult Blood 10 H Urine Nitrite Negative Urine Bilirubin 1 H Urine Urobilinogen 8 H Ur Leukocyte Esterase 25 H Urine RBC 0 SEEN Urine WBC 0 SEEN Ur Squamous Epith Cells 0-5 SEEN Urine Bacteria RARE Hyaline Casts 0-5 SEEN Urine Mucus 0 SEEN MRSA (PCR) POC Glucose 273 H 11/18/20 11/18/20 11/18/20 16:00 16:05 16:20 WBC RBC Hgb Hct MCV MCH MCHC RDW Std Deviation RDW Coeff of Maggie Plt Count MPV Immature Gran % (Auto) Neut % (Auto) Lymph % (Auto) [place] % (Auto) Eos % (Auto) Baso % (Auto) Absolute Neuts (auto) Absolute Lymphs (auto) Nucleated RBC % PT INR APTT 44.1 H Specimen Type Sample Site pH Bicarbonate Actual Total CO2 Base Excess O2 Saturation O2 % ABG pCO2 ABG pO2 Greg Test Respiration Rate O2 Delivery Device POC PEEP POC Pressure Suppt Sodium Potassium Chloride Carbon Dioxide Anion Gap BUN Creatinine Estim Creat Clear Calc Est GFR (MDRD) Af Amer Est GFR (MDRD) Non-Af BUN/Creatinine Ratio Glucose Lactic Acid Calcium Phosphorus Magnesium Total Bilirubin AST ALT Alkaline Phosphatase Troponin I B-Natriuretic Peptide Total Protein Albumin Globulin Albumin/Globulin Ratio Lipase Procalcitonin Urine Color Urine Clarity Urine pH Ur Specific [place] Urine Protein Urine Glucose (UA) Urine Ketones Urine Occult Blood Urine Nitrite Urine Bilirubin Urine Urobilinogen Ur Leukocyte Esterase Urine RBC Urine WBC Ur Squamous Epith Cells Urine Bacteria Hyaline Casts Urine Mucus MRSA (PCR) Negative POC Glucose 188 H 11/18/20 11/18/20 11/18/20 16:36 21:31 23:45 WBC RBC Hgb Hct MCV MCH MCHC RDW Std Deviation RDW Coeff of Maggie Plt Count MPV Immature Gran % (Auto) Neut % (Auto) Lymph % (Auto) [place] % (Auto) Eos % (Auto) Baso % (Auto) Absolute Neuts (auto) Absolute Lymphs (auto) Nucleated RBC % PT INR APTT 57.3 H Specimen Type Sample Site pH Bicarbonate Actual Total CO2 Base Excess O2 Saturation O2 % ABG pCO2 ABG pO2 Greg Test Respiration Rate O2 Delivery Device POC PEEP POC Pressure Suppt Sodium Potassium 3.1 L Chloride Carbon Dioxide Anion Gap BUN Creatinine Estim Creat Clear Calc Est GFR (MDRD) Af Amer Est GFR (MDRD) Non-Af BUN/Creatinine Ratio Glucose Lactic Acid Calcium Phosphorus Magnesium Total Bilirubin AST ALT Alkaline Phosphatase Troponin I B-Natriuretic Peptide Total Protein Albumin Globulin Albumin/Globulin Ratio Lipase Procalcitonin Urine Color Urine Clarity Urine pH Ur Specific [place] Urine Protein Urine Glucose (UA) Urine Ketones Urine Occult Blood Urine Nitrite Urine Bilirubin Urine Urobilinogen Ur Leukocyte Esterase Urine RBC Urine WBC Ur Squamous Epith Cells Urine Bacteria Hyaline Casts Urine Mucus MRSA (PCR) POC Glucose 265 H 11/19/20 11/19/20 11/19/20 05:45 05:45 05:45 WBC 11.7 H RBC 3.85 L Hgb 11.3 L Hct 35.2 L MCV 91.4 MCH 29.4 MCHC 32.1 RDW Std Deviation 52.1 H RDW Coeff of Maggie 15.6 H Plt Count 203 MPV 10.3 Immature Gran % (Auto) 0.400 Neut % (Auto) 88.5 H Lymph % (Auto) 5.0 L Lam[place] % (Auto) 6.0 Eos % (Auto) 0.0 Baso % (Auto) 0.1 Absolute Neuts (auto) 10.4 H Absolute Lymphs (auto) 0.59 L Nucleated RBC % 0 PT INR APTT 93.0 H* Specimen Type Sample Site pH Bicarbonate Actual Total CO2 Base Excess O2 Saturation O2 % ABG pCO2 ABG pO2 Greg Test Respiration Rate O2 Delivery Device POC PEEP POC Pressure Suppt Sodium 133 L Potassium 3.6 Chloride 95 L Carbon Dioxide 33.0 H Anion Gap 5 BUN 25 H Creatinine 1.11 Estim Creat Clear Calc 60.77 Est GFR (MDRD) Af Amer 84 Est GFR (MDRD) Non-Af 70 BUN/Creatinine Ratio 22.5 H Glucose 169 H Lactic Acid Calcium 8.5 Phosphorus 2.8 Magnesium 2.1 Total Bilirubin 0.90 AST 29 ALT 54 Alkaline Phosphatase 97 Troponin I B-Natriuretic Peptide Total Protein 5.8 L Albumin 2.2 L Globulin 3.6 Albumin/Globulin Ratio 0.6 L Lipase Procalcitonin Urine Color Urine Clarity Urine pH Ur Specific [place] Urine Protein Urine Glucose (UA) Urine Ketones Urine Occult Blood Urine Nitrite Urine Bilirubin Urine Urobilinogen Ur Leukocyte Esterase Urine RBC Urine WBC Ur Squamous Epith Cells Urine Bacteria Hyaline Casts Urine Mucus MRSA (PCR) POC Glucose Microbiology 11/18/20 13:10 Urine, Clean Catch Legionella Antigen - Final 11/18/20 13:10 Urine, Clean Catch Streptococcus pneumoniae Antigen (M - Final 11/17/20 22:45 Mucosa - Nasopharyngeal Respiratory Panel (PCR) - Final 11/17/20 19:20 Nasal Secretion SARS-CoV-2 Antigen (Rapid) - Final Medical Necessity - Tobacco Use Smoking Status: Light Smoker (<10/day) Tobacco Use: Cigarettes Assessment/Plan All Active Problems (Last Updated 09/24/20 @ 09:25 by Nafisa Coleman) Lactic acidosis (Acute) Abnormal LFTs (Acute) Acute hypoxemic respiratory failure (Acute) Hypokalemia (Acute) Elevated lactic acid level (Acute) Chest pain (Acute) Cardiac enzymes elevated (Acute) RECOMMENDATIONS: 1. Wean supplemental oxygen to maintain saturations at or above 90%. 2. Continue empiric antimicrobials. 3. Continue scheduled bronchodilators and IV steroids. 4. Minimize fluids. 5. Continue Levophed to maintain a mean arterial pressure at or above 65 mmHg. 6. Obtain echocardiogram. 7. Electrolyte repletion as needed. 8. Continue heparin infusion for now. 9. Appreciate cardiology consultation. IMPRESSIONS: 1. Acute hypoxemic respiratory failure/history of COPD/pulmonary emboli The patient's presenting respiratory failure is likely multi factorial in etiology with acute PE, possible decompensated heart failure and community- acquired pneumonia contributing. Accordingly, the patient will be continued on a heparin infusion for the newly diagnosed lobar and segmental PE noted on CTA chest. Given marginal metabolic reserve, continued therapy for COPD exacerbation and pneumonia would be indicated. Possibly discontinue antibiotics once culture negative. Legionella and streptococcal antigens are negative. 2. Shock Unclear if this is strictly distributive shock in the setting of possible pneumonia versus cardiogenic in etiology. Patient with continued pressor requirements. Clinical suspicion for an element of cardiogenic shock as patient does have a severely depressed EF. Continue to wean pressors as tolerated. Continue anticoagulation for pulmonary emboli. 3. Hypokalemia Electrolyte repletion as ordered. Recheck levels in the morning. 4. History of ischemic cardiomyopathy/systolic heart failure The patient does have a known history of coronary artery disease and did present with an elevated troponin and a BNP greater than 4000. However, the patient's current hemodynamic status would preclude the use of diuretics. Appreciate cardiology recommendations 5. Chronic tobacco dependency Patient appears to be precontemplative for smoking cessation at this time. Nicotine replacement has been initiated in the hospital. Patient follows with Dr. Pop as an outpatient. 6. History of gout/diabetes mellitus/hypothyroidism/chronic back pain/GERD/hypertension/hyperlipidemia Complicates care, management, recovery and prognosis. Continue to hold antihypertensives. TIME: 33 minutes of critical care time, independent of procedures, was spent addressing the patient's acute hypoxemic respiratory failure, distributive versus cardiogenic shock, hypokalemia, history of ischemic cardiomyopathy, systolic heart failure, chronic tobacco dependency, review of all data and collaboration with the care team. (6 AM to 7 AM) [phone] [id number] Critical care first hour
[2020-11-19] MEDS: Insulin Lispro 100 UNIT/ML INSULN.PEN SC ×4 (08:30→21:46)
[2020-11-19] MEDS: Aspirin E.C. 81 MG Tablet PO (08:52)
[2020-11-19] MEDS: levETIRAcetam 500 MG Tablet PO (08:52)
[2020-11-19] MEDS: Pantoprazole Sodium 40 MG Tablet PO (08:53)
[2020-11-19] MEDS: Allopurinol 300 MG Tablet PO (08:53)
[2020-11-19] MEDS: Ranolazine 500 MG Tablet PO ×2 (08:53→21:50)
[2020-11-19] MEDS: Glucerna Shake 120 ML LIQUID PO (08:57)
[2020-11-19] MEDS: Polyethylene Glycol 3350 17 GM PACKET PO (08:58)
--- NOTE | 2020-11-19 09:43 | PN.CARD_ITS ---
Subjectve: The patient is awake and alert. He remains in the ICU. He continues to require IV vasopressor support. Objective: Vital Signs Temp Pulse Resp BP Pulse Ox 98.0 F 89 19 H 95/65 99 11/19/20 04:00 11/19/20 07:54 11/19/20 06:41 11/19/20 06:00 11/19/20 06:41 Oxygen Flow Rate (L/min) 3 Oxygen Delivery Method Nasal Cannula Weight: 168 lb 3.403 oz Body Mass Index (BMI) 24.2 Finger Stick Blood Glucose 195 Intake and Output for Last 24 Hours 11/17/20 11/18/20 11/19/20 23:59 23:59 23:59 Intake Total 1210 / 1210 2849.45 / 2973.25 240.4 / 240.4 Output Total 475 / 475 100 / 100 Balance 1210 / 1210 2374.45 / 2498.25 140.4 / 140.4 General: Awake, Alert, Oriented x 3, Cooperative HEENT: Atraumatic, Normocephalic, PERRL, EOMI, Sclera Non Icteric Neck: Supple, Good ROM Lungs: Rhonchi Cardiovascular: Regular Rhythm, Premature Ectopic Beats, Normal S1, Normal S2 Abdomen: Bowel Sounds Present, Soft Extremities: No edema Neurological: No Focal Motor or Sensory Deficit Psych/Mental Status: Appropriate 11/18/20 09:45: APTT 44.1 H 11/18/20 13:10: Urine Color Yellow, Urine Clarity Sl. Cloudy, Urine pH 6.0, Ur Specific [place] 1.010, Urine Protein 30 H, Urine Glucose (UA) Normal, Urine Ketones 5 H, Urine Occult Blood 10 H, Urine Nitrite Negative, Urine Bilirubin 1 H, Urine Urobilinogen 8 H, Ur Leukocyte Esterase 25 H, Urine RBC 0 SEEN, Urine WBC 0 SEEN 11/18/20 16:20: APTT 44.1 H 11/18/20 16:36: Potassium 3.1 L 11/18/20 23:45: APTT 57.3 H 11/19/20 05:45: WBC 11.7 H, RBC 3.85 L, Hgb 11.3 L, Hct 35.2 L, MCV 91.4, MCH 29.4, MCHC 32.1, Plt Count 203, MPV 10.3, Immature Gran % (Auto) 0.400, Neut % (Auto) 88.5 H, Lymph % (Auto) 5.0 L, [place] % (Auto) 6.0, Eos % (Auto) 0.0, Baso % (Auto) 0.1, Absolute Neuts (auto) 10.4 H, Nucleated RBC % 0 11/19/20 05:45: Sodium 133 L, Potassium 3.6, Chloride 95 L, Carbon Dioxide 33.0 H, Anion Gap 5, BUN 25 H, Creatinine 1.11, Est GFR (MDRD) Af Amer 84, Est GFR (MDRD) Non-Af 70, BUN/Creatinine Ratio 22.5 H, Glucose 169 H, Calcium 8.5, Phosphorus 2.8, Magnesium 2.1, Total Bilirubin 0.90 11/19/20 05:45: APTT 93.0 H* Rhythm: Sinus rhythm; PVCs; occasional electronic ventricular paced rhythm Medical Necessity - Tobacco Use Smoking Status: Light Smoker (<10/day) Tobacco Use: Cigarettes Assessment/Plan 1. Hypotension The patient remains hypotensive requiring IV vasopressor support. The etiology may be multifactorial. There is concerned this may be related to underlying pulmonary emboli superimposed upon his chronic cardiovascular condition. From a cardiovascular standpoint he is going to go through reassessment of his left ventricular wall motion systolic function with a transthoracic echocardiogram. 2. CAD status post PCI status post CABG The patient has an extensive underlying history of CAD requiring both PCI and CABG. He has been evaluated and cared for locally as well as at [facility]. Based upon his most recent evaluation at [facility] it was not felt he was a candidate for any other type of revascularization therapy and/or ventricular assist device therapy, etc. Thus he was delegated to conservative medical management. At the present time his cardiovascular meds such as nitrates, beta-blockers, afterload reducing agents, etc. have been on hold secondary to his low blood pressure. Hopefully over time if his blood pressure stabilizes he will be able to reintroduce his cardiovascular medications. In the interim he is scheduled for an echocardiogram to reassess his left ventricular wall motion and systolic function to assist with his evaluation care. There are no plans at this time for any repeat invasive evaluation or care. If he would require repeat invasive evaluation such as cardiac catheterization with the thought of needing repeat PCI to his SVG graft previously evaluated and cared for then it would be recommended, based upon the complexity of his cardiovascular disease and what was entailed with his last PCI, that he be referred back to a tertiary care center for additional evaluation and care. 3. Ischemic mediated cardiomyopathy He does have an underlying ischemic mediated cardiomyopathy. Ideally he would continue medical management and support. Again as noted above based upon low blood pressure his medications are on hold. His left ventricle will be reassessed with an echocardiogram to assist with his evaluation and care. As noted above he was deemed at the tertiary care center not to be a candidate for any additional revascularization therapy or ventricular assist type devices. 4. Chronic systolic mediated CHF He does have a history of chronic systolic mediated CHF. He will need to continue medical therapy including diuretic therapy as best as possible. 5. Hyperlipidemia He should continue medical management. 6. Hypertension The present time his blood pressure is low. His medications will need to be readjusted is as he tolerates. 7. Diabetes mellitus He will continue evaluation care per internal medicine. 8. Pulmonary emboli He will continue evaluation care per internal medicine pulmonology/critical care medicine. Comment: The patient also states he has been evaluated by palliative care. He states he may not be able to return home and may have to go to an extended care facility. The patient's case has been previously discussed with Dr. Coleman. This note was generated using a voice recognition system and there may be incorrect words, spelling or punctuation that were not noted when reviewing the office note prior to saving.
--- NOTE | 2020-11-19 11:14 | CASEMGMT ---
According to the [facility] website, the following are in-network tertiary facilities: [facility], [place], [facility], [facility], [facility], [facility], and . Doug HADLEY CM
--- NOTE | 2020-11-19 11:20 | CASEMGMT ---
Social Work Pt has services through [employer]. 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 SW spoke with [employer] coverage staff. Pt receives 14 meals a week from [employer], a medical alert and aid services through [employer], 3 hours a day M-. No skilled services are in place. CHAZ Rutherford updated. JOANNE Zazueta
--- NOTE | 2020-11-19 11:45 | CASEMGMT ---
This RN CM to room to complete CM assessment and RN is at bedside giving meds at this time. CM to attempt again later. SStaten RN CM
[2020-11-19 11:51] LABS: Bedside Glucose 322 mg/dL (70-110)
--- NOTE | 2020-11-19 11:51 | CASEMGMT ---
Call to [facility], pt's order is for 2L continuous home oxygen. SStridge HADLEY CM
--- NOTE | 2020-11-19 13:13 | PCM.PN.HOSP ---
Patient Problems: Active and Suspected Problems (Last Updated 09/24/20 @ 09:25 by Nafisa Coleman) Lactic acidosis (Acute) Abnormal LFTs (Acute) Acute hypoxemic respiratory failure (Acute) Hypokalemia (Acute) Elevated lactic acid level (Acute) Cardiac enzymes elevated (Acute) Subjective: Still short of breath. Still on norepinephrine gtt. Vitals/I&O's: Vital Signs Temp Pulse Resp BP Pulse Ox 36.2 C L 95 16 92/53 L 99 11/19/20 07:00 11/19/20 12:47 11/19/20 12:47 11/19/20 10:00 11/19/20 10:00 Oxygen Flow Rate (L/min) 3 Oxygen Delivery Method Nasal Cannula Weight: 76.3 kg Body Mass Index (BMI) 24.2 Finger Stick Blood Glucose 195 Intake and Output for Last 24 Hours 11/17/20 11/18/20 11/19/20 23:59 23:59 23:59 Intake Total 1210 / 1210 2849.45 / 2973.25 495.6 / 495.6 Output Total 475 / 475 100 / 100 Balance 1210 / 1210 2374.45 / 2498.25 395.6 / 395.6 General: Alert, No apparent distress HEENT: Atraumatic, Normocephalic Oral: Moist Mucosa, No Gingival or Mucosal Lesions/ Ulcerations Neck: No Nodes, Thyroid Normal Size and Texture Lungs: Normal air movement, - - coarse breath sounds Cardiovascular: Regular rate, Regular Rhythm, Normal S1, Normal S2 Abdomen: Bowel Sounds Present, Soft, Non Tender, Non-Distended, No Hepato-splenomegaly Extremities: No edema, No Calf Tenderness Psych/Mental Status: Normal Affect, Appropriate Microbiology Past 72 Hours 11/18/20 13:10 Urine, Clean Catch Legionella Antigen - Final 11/18/20 13:10 Urine, Clean Catch Streptococcus pneumoniae Antigen (M - Final 11/17/20 22:45 Mucosa - Nasopharyngeal Respiratory Panel (PCR) - Final 11/17/20 19:20 Nasal Secretion SARS-CoV-2 Antigen (Rapid) - Final Laboratory Results 11/18/20 13:10: Urine Color Yellow, Urine Clarity Sl. Cloudy, Urine pH 6.0, Ur Specific Rienzi 1.010, Urine Protein 30 H, Urine Glucose (UA) Normal, Urine Ketones 5 H, Urine Occult Blood 10 H, Urine Nitrite Negative, Urine Bilirubin 1 H, Urine Urobilinogen 8 H, Ur Leukocyte Esterase 25 H, Urine RBC 0 SEEN, Urine WBC 0 SEEN, Ur Squamous Epith Cells 0-5 SEEN, Urine Bacteria RARE, Hyaline Casts 0-5 SEEN, Urine Mucus 0 SEEN 11/18/20 16:00: MRSA (PCR) Negative 11/18/20 16:05: POC Glucose 188 H 11/18/20 16:20: APTT 44.1 H 11/18/20 16:36: Potassium 3.1 L 11/18/20 21:31: POC Glucose 265 H 11/18/20 23:45: APTT 57.3 H 11/19/20 05:45: WBC 11.7 H, RBC 3.85 L, Hgb 11.3 L, Hct 35.2 L, MCV 91.4, MCH 29.4, MCHC 32.1, RDW Std Deviation 52.1 H, RDW Coeff of Maggie 15.6 H, Plt Count 203, MPV 10.3, Immature Gran % (Auto) 0.400, Neut % (Auto) 88.5 H, Lymph % (Auto) 5.0 L, Terry % (Auto) 6.0, Eos % (Auto) 0.0, Baso % (Auto) 0.1, Absolute Neuts (auto) 10.4 H, Absolute Lymphs (auto) 0.59 L, Nucleated RBC % 0 11/19/20 05:45: Sodium 133 L, Potassium 3.6, Chloride 95 L, Carbon Dioxide 33.0 H, Anion Gap 5, BUN 25 H, Creatinine 1.11, Estim Creat Clear Calc 60.77, Est GFR (MDRD) Af Amer 84, Est GFR (MDRD) Non-Af 70, BUN/Creatinine Ratio 22.5 H, Glucose 169 H, Calcium 8.5, Phosphorus 2.8, Magnesium 2.1, Total Bilirubin 0.90, AST 29, ALT 54, Alkaline Phosphatase 97, Total Protein 5.8 L, Albumin 2.2 L, Globulin 3.6, Albumin/Globulin Ratio 0.6 L 11/19/20 05:45: APTT 93.0 H* 11/19/20 11:40: POC Glucose 322 H 11/19/20 12:40: APTT Cancelled 11/19/20 13:00: APTT Pending Current Medications Acetaminophen (Acetaminophen 325 Mg Tablet) 650 mg PO Q6H PRN PRN PRN Reason: Pain Score 1-10/Temp > 100.7 F Last Admin: 11/19/20 05:32 Dose: 650 mg Documented by: Al Hydroxide/Mg Hydroxide (Mag Hydrox/Al Hydrox/Simeth 30 Ml Udc) 30 ml PO Q6H PRN PRN PRN Reason: Gastric Burning Albuterol Sulfate (Albuterol 2.5 Mg/3 Ml Vial.Neb.) 2.5 mg INHALATION Q2H PRN PRN PRN Reason: Dyspnea, wheezing Last Admin: 11/19/20 12:47 Dose: 2.5 mg Documented by: Albuterol/Ipratropium (Ipratropium/Albuterol Sulfate 3 Ml Ampul.Neb) 3 ml INHALATION Q4HWA.RT CAROLYN Last Admin: 11/19/20 10:24 Dose: 3 ml Documented by: Allopurinol (Allopurinol 300 Mg Tablet) 300 mg PO DAILY CAROLYN Last Admin: 11/19/20 08:53 Dose: 300 mg Documented by: Aspirin (Aspirin E.C. 81 Mg Tablet) 81 mg PO DAILY CAROLYN Last Admin: 11/19/20 08:52 Dose: 81 mg Documented by: Dextrose (Dextrose 50%-Water 25 Gm/50 Ml Disp.Syrin) 0 gm IV X1 PRN; Protocol PRN Reason: Hypoglycemia Glucagon (Glucagon 1 Mg/Ml Syringe) 1 mg IM .X1 PRN PRN Reason: Hypoglycemia Guaifenesin (Guaifenesin 10 Ml Udc (200mg/10ml)) 10 ml PO Q4H PRN PRN PRN Reason: COUGH Heparin Sodium (Porcine) (Heparin Injection (Vial) 5,000 Unit/Ml Vial) 0 unit IV UD PRN; Protocol PRN Reason: dose adjustment Heparin Sodium/Dextrose () 25,000 units in 250 mls @ 10 mls/hr IV .Q25H CAROLYN; Protocol Last Titration: 11/19/20 07:34 Dose: 1,000 units/hr, 10 mls/hr Documented by: Levofloxacin (Levaquin Iv) 750 mg in 150 mls @ 100 mls/hr IV QHS CAROLYN Last Infusion: 11/18/20 22:50 Dose: Infused Documented by: Norepinephrine Bitartrate 8 mg (/ Sodium Chloride) 250 mls @ 9.375 mls/hr CONT INF .[id number] [facility]; Protocol Last Titration: 11/19/20 10:00 Dose: 2 mcg/min, 3.8 mls/hr Documented by: Insulin Human Lispro (Insulin Lispro 100 Unit/Ml Insuln.Pen) 0 unit SC ACHS [facility]; Protocol Last Admin: 11/19/20 11:43 Dose: 5 units Documented by: Levetiracetam (Levetiracetam 500 Mg Tablet) 500 mg PO DAILY [facility] Last Admin: 11/19/20 08:52 Dose: 500 mg Documented by: Levothyroxine Sodium (Levothyroxine 25 Mcg Tablet) 25 mcg PO DAILY@0600 [facility] Last Admin: 11/19/20 05:38 Dose: 25 mcg Documented by: Magnesium Hydroxide (Magnesium Hydroxide 30 Ml Udc) 30 ml PO DAILY PRN PRN PRN Reason: Constipation Melatonin (Melatonin 3 Mg Tablet) 3 mg PO QHS PRN PRN PRN Reason: INSOMNIA Last Admin: 11/19/20 00:18 Dose: 3 mg Documented by: Methylprednisolone (Methylprednisolone 40 Mg/Ml Vial) 40 mg IV Q8 [facility] Last Admin: 11/19/20 05:38 Dose: 40 mg Documented by: Metoclopramide HCl (Metoclopramide 10 Mg Tablet) 10 mg PO 4X/DAY PRN PRN PRN Reason: NAUSEA/VOMITING Nicotine (Nicotine 14 Mg Patch) 14 mg TD DAILY [facility] Last Admin: 11/19/20 08:52 Dose: 14 mg Documented by: Nitroglycerin (Nitroglycerin (Inpatient Use) 0.4 Mg Tab.Subl) 0.4 mg SL Q5M PRN PRN Reason: CARDIAC/CHEST PAIN Nutritional Formula (Lactose Free) (Glucerna Shake 120 Ml Liquid) 120 ml PO 4X/DAY [facility] Last Admin: 11/19/20 08:57 Dose: 120 ml Documented by: Ondansetron HCl (Ondansetron 4 Mg/2 Ml Vial) 4 mg IV Q8H PRN PRN PRN Reason: NAUSEA/VOMITING Oxycodone HCl (Oxycodone 5 Mg Tablet) 10 mg PO Q4H PRN PRN PRN Reason: Pain Score 4-10 Last Admin: 11/19/20 10:28 Dose: 10 mg Documented by: Pantoprazole Sodium (Pantoprazole Sodium 40 Mg Tablet) 40 mg PO DAILY [facility] Last Admin: 11/19/20 08:53 Dose: 40 mg Documented by: Polyethylene Glycol (Polyethylene Glycol 3350 17 Gm Packet) 17 gm PO DAILY [facility] Last Admin: 11/19/20 08:58 Dose: 17 gm Documented by: Prochlorperazine Edisylate (Prochlorperazine 10 Mg/2 Ml Vial) 5 mg IV Q4H PRN PRN PRN Reason: Breakthrough Nausea/Vomiting Psyllium Hydrophilic Mucilloid (Psyllium 1 Packet) 1 packet PO DAILY PRN PRN PRN Reason: Constipation Ranolazine (Ranolazine 500 Mg Tablet) 500 mg PO BID [facility] Last Admin: 11/19/20 08:53 Dose: 500 mg Documented by: Rosuvastatin Calcium (Rosuvastatin 20 Mg Tablet) 40 mg PO QHS [facility] Last Admin: 11/18/20 21:19 Dose: 40 mg Documented by: Senna/Docusate Sodium (Senna/Docusate Sodium 1 Tablet) 2 tablet PO BID PRN PRN PRN Reason: Constipation Sodium Chloride (0.9% Saline Lock 10 Ml Syringe) 10 - 40 ml IV UD PRN PRN Reason: SALINE FLUSH Last Admin: 11/18/20 16:00 Dose: 10 ml Documented by: Throat Lozenges (Benzocaine/Menthol 1 Lozenge) 1 lozenge MUCOUS MEM Q2H PRN PRN PRN Reason: SORE THROAT Last Admin: 11/18/20 08:02 Dose: 1 lozenge Documented by: STROKE Vital Signs/Narrative: Vital Signs Pulse Resp BP Pulse Ox 11/19/20 12:47 95 16 11/19/20 11:23 94 11/19/20 10:24 91 18 11/19/20 10:00 94 19 H 92/53 L 99 Medical Necessity - Tobacco Use Smoking Status: Light Smoker (<10/day) Tobacco Use: Cigarettes Assessment/Plan All Active Problems (Last Updated 09/24/20 @ 09:25 by Nafisa Coleman) Lactic acidosis (Acute) Abnormal LFTs (Acute) Acute hypoxemic respiratory failure (Acute) Hypokalemia (Acute) Elevated lactic acid level (Acute) Chest pain (Acute) Cardiac enzymes elevated (Acute) 1. acute hypoxic respiratory failure multifactorial: COPD, CHF, PE, pneumonia oxygen weaning ongoing 2. acute PE on heparin gtt 3. Shock cardiogenic v other on norepinephrine gtt infectious work up thus far negative 4. pneumonia v pulmonary infarct on levofloxacin leginonella, strep antigen negative, respiratory panel, COVID-19 negative 5. DM2 fair control on SSI Inpatient E&M: 58722 Subs Hosp L2
[2020-11-19 13:16] LABS: Partial Thromboplast Time 52.6 Seconds (24.1-36.2)
[2020-11-19] MEDS: Heparin Injection (Vial) 5,000 UNIT/ML VIAL IV (13:22)
--- NOTE | 2020-11-19 13:36 | CASEMGMT ---
Social Work SW received phone call from pt step daughter Hillary Bolton who provided information and was concerned that pt could not return home at this time but needed SNF. SW met with pt in room and introduced self and role to pt. Pt was alert and oriented and willing to talk with SW. PCP: Juan De La Vega III Specialists: Donn Inman Preferred Pharmacy: [facility] Insurance: [facility] Dual Complete and [employer] Prescription Benefit: yes Living Will/HPOA: SW assisted pt in completing Health Care POA and Living Will naming his step daughter Hillary Bolton. LNOK: Hillary Bolton, step daughter, Alireza Villanueva, step son, Alma Rosa [place], Living Arrangements: Pt lives in a two story home with his grandson Martin. Martin does not provide any assistance to patient. Pt bedroom and bathroom are on the second story, pt states he sleeps on the couch and crawls the stairs to the bathroom. Pt states he has not been able to care for himself at home and needs SNF placement. DME: States has the following DME: shower chair, rollator, grab bars, nebulizer, oxygen concentrator - 2L at bedtime through [facility]/SNF: Pt does have services of [facility] including global meals, medical alert and home health aids 3 hr a day M-. Pt is current with [facility] Palliative medicine. PLAN: Pt is understanding that he can no longer care for himself at home and would like SNF placement. List of SNF providers including quality and resource use data and consistent with the patients preferred geographical region, medical needs and insurance network. Pt preferred provider is [facility]. SW placed call to [facility] and awaiting return call. SW assisted pt in completing LW and HCPOA. Original given to pt and copy placed on pt chart. Copy made for pt step daughter Hillary as well. SW spoke with pt regarding Hospice services. Hospice has been recommended to patient previously and SW spoke with pt explaining hospice services. Pt adamantly refusing hospice at this time. JOANNE Zazueta
[2020-11-19] MEDS: HEPARIN/D5w 25,000 UNITS 25,000 UNITS/250 ML IV.SOLN. 11 UNITS IV (14:00)
[2020-11-19 15:55] LABS: Bedside Glucose 282 mg/dL (70-110)
[2020-11-19 20:06] LABS: Partial Thromboplast Time 60.2 Seconds (24.1-36.2)
[2020-11-19] MEDS: Rosuvastatin 20 MG Tablet 40 MG PO (21:50)
[2020-11-19] MEDS: APIXABAN 5 MG TABLET 10 MG PO (21:50)
[2020-11-19] MEDS: levoFLOXacin IV 750 MG/150 ML BAG 100 MG IV (21:51)
[2020-11-19] MEDS: 0.9% Saline Lock 10 ML Syringe IV (21:55)
[2020-11-19 22:25] LABS: Bedside Glucose 240 mg/dL (70-110)
[2020-11-20] VITALS (33 sets, daily range): BP systolic 73–103; BP diastolic 49–70; PULSE 17–101; RESP 10–26; TEMP 36.7–36.8; O2SAT 93–100
[2020-11-20] MEDS: Ipratropium/Albuterol Sulfate 3 ML AMPUL.NEB INHALATION ×5 (00:38→22:28)
[2020-11-20] MEDS: oxyCODONE 5 MG Tablet 10 MG PO ×3 (05:05→19:55)
[2020-11-20] MEDS: Levothyroxine 25 MCG TABLET PO (05:08)
[2020-11-20 07:48] LABS: Anion Gap 5 (5-15); BUN 36 mg/dL (7-18); BUN/Creat Ratio 23.4 RATIO (10-20); Calcium,Total 8.7 mg/dL (8.5-10.1); Chloride 94 mmol/L (98-107); Creatinine, Serum 1.54 mg/dL (0.70-1.30); EST Glomerular Filtration Rate 48 mL/min (>60); Est Glom Filt Rate - Afr Amer 58 mL/min (>60); Glucose 153 mg/dL (74-106); Potassium 4.5 mmol/L (3.5-5.1); Sodium Level 132 mmol/L (136-145)
[2020-11-20] MEDS: Albuterol 2.5 MG/3 ML VIAL.NEB. INHALATION (08:09)
[2020-11-20] MEDS: Midodrine HCl 5 MG Tablet PO ×2 (08:30→12:30)
--- NOTE | 2020-11-20 08:44 | PN.CARD_ITS ---
Subjective Subjective: The patient is awake and alert. He denies ongoing chest discomfort. He states his breathing is better when he is sitting up and lying down. He also noted when he got up to stand he felt somewhat off balance. Objective Data Objective Data Vital Signs: Vital Signs Temp Pulse Resp BP Pulse Ox 98.1 F 97 20 H 73/49 L 100 11/20/20 00:00 11/20/20 01:00 11/20/20 01:00 11/20/20 01:00 11/20/20 01:00 Oxygen Flow Rate (L/min) 3 Oxygen Delivery Method Nasal Cannula Weight: 168 lb 3.403 oz Body Mass Index (BMI) 24.2 Finger Stick Blood Glucose 195 Intake & Output: Intake and Output for Last 24 Hours 11/18/20 11/19/20 11/20/20 23:59 23:59 23:59 Intake Total 2849.45 / 2973.25 1186.89 / 1430.69 247.6 / 247.6 Output Total 475 / 475 750 / 750 0 / 0 Balance 2374.45 / 2498.25 436.89 / 680.69 247.6 / 247.6 Lab / Micro Data Result Diagrams: 11/19/20 05:45 11/20/20 05:05 Labs: Laboratory Results - last 24 hr 11/19/20 11/19/20 11/19/20 11:40 12:40 13:00 APTT Cancelled 52.6 H Sodium Potassium Chloride Carbon Dioxide Anion Gap BUN Creatinine Estim Creat Clear Calc Est GFR (MDRD) Af Amer Est GFR (MDRD) Non-Af BUN/Creatinine Ratio Glucose Calcium POC Glucose 322 H 11/19/20 11/19/20 11/19/20 15:47 19:45 21:46 APTT 60.2 H Sodium Potassium Chloride Carbon Dioxide Anion Gap BUN Creatinine Estim Creat Clear Calc Est GFR (MDRD) Af Amer Est GFR (MDRD) Non-Af BUN/Creatinine Ratio Glucose Calcium POC Glucose 282 H 240 H 11/20/20 05:05 APTT Sodium 132 L Potassium 4.5 Chloride 94 L Carbon Dioxide 33.0 H Anion Gap 5 BUN 36 H Creatinine 1.54 H Estim Creat Clear Calc 43.80 Est GFR (MDRD) Af Amer 58 L Est GFR (MDRD) Non-Af 48 L BUN/Creatinine Ratio 23.4 H Glucose 153 H Calcium 8.7 POC Glucose Micro: Microbiology 11/17/20 19:05 Blood Culture (Wb) #2 - Anticubital Left Blood Culture - Preliminary No growth in 48 hours. 11/17/20 19:50 Blood Culture (Wb) - Anticubital Left Blood Culture - Preliminary No growth in 48 hours. 11/18/20 13:10 Urine, Clean Catch Legionella Antigen - Final 11/18/20 13:10 Urine, Clean Catch Streptococcus pneumoniae Antigen (M - Final 11/17/20 22:45 Mucosa - Nasopharyngeal Respiratory Panel (PCR) - Final 11/17/20 19:20 Nasal Secretion SARS-CoV-2 Antigen (Rapid) - Final Radiography Diagnostic Testing: Radiology Impression Echocardiogram 11/18/20 07:47 Interpretation Summary The study was technically difficult. Contrast injection was performed. Moderately dilated left ventricle. Severe segmental systolic dysfunction (see wall motion). The estimated ejection fraction is 10 %. The left atrium is moderately enlarged. Mild diffuse mitral valve thickening. Mild papillary muscle dysfunction of the mitral valve. Moderate (2+) mitral valve insufficiency. Moderate (2+) tricuspid valve insufficiency. Mild diffuse aortic valve thickening. Moderate diffuse aortic valve calcification. Mild aortic stenosis. Right ventricular systolic pressure estimated to be 52 mmHg. Transmitral diastolic flow velocities suggest diastolic dysfunction (pseudonormal pattern). ICD or pacer leads identified within the right atrium ICD or pacer leads identified within the right ventricle. Ordering Physician: Carlos Pop Referring Physician: LISA De La Vega M.D. Performed By: Clem Ovalle RCS Physical Exam Const alert and oriented x3 Orientation / Consciousness: awake HEENT normocephalic Eyes PERRL, EOMs intact bilaterally, conjunctivae normal and no scleral icterus Neck full ROM and supple Chest Chest: midline sternotomy incision Resp Auscultation: diminished lung sounds Cardio regular rate, S1 normal heart sound and S2 normal heart sound Palpation: abnormal PMI Rate: regular rate Rhythm: regular rhythm, abnormal rhythm ectopic beats and other Heart Sounds: S1 normal and S2 normal GI normal to inspection, nondistended, normoactive bowel sounds Extremity no pedal edema 11/19/20 12:40: APTT Cancelled 11/19/20 13:00: APTT 52.6 H 11/19/20 19:45: APTT 60.2 H 11/20/20 05:05: Sodium 132 L, Potassium 4.5, Chloride 94 L, Carbon Dioxide 33.0 H, Anion Gap 5, BUN 36 H, Creatinine 1.54 H, Est GFR (MDRD) Af Amer 58 L, Est GFR (MDRD) Non-Af 48 L, BUN/Creatinine Ratio 23.4 H, Glucose 153 H, Calcium 8.7 Rhythm: Sinus rhythm; PVCs; electronic ventricular paced rhythm ECHO: Assessment & Plan Assessment/Plan (1) CAD (coronary artery disease): Status: Chronic Code(s): I25.10 - Atherosclerotic heart disease of [place] coronary artery without angina pectoris Qualifiers: Coronary Disease-Associated Artery/Lesion type: unspecified vessel or lesion type [place] vs. transplanted heart: [place] heart Plan: The patient will continue risk factor evaluation care as deemed appropriate. The patient has undergone extensive noninvasive and invasive evaluation in the past. He has been evaluated locally and at [facility]. At [facility]-coupled with their colleagues at [facility]-he has been deemed not a candidate for any further intervention/procedures. (2) Stented coronary artery: Status: Chronic Plan: He does have a history of underlying CAD and is undergone multiple PCI procedures. At the present he will continue medical management. (3) H/O coronary artery bypass surgery: Status: Chronic Code(s): Z95.1 - Presence of aortocoronary bypass graft Plan: He has a history of underlying CABG. He is undergone noninvasive and invasive evaluation in the past. He has had multiple percutaneous interventions of his SVG graft to his OM system. At the present time he will continue medical management. (4) Ischemic cardiomyopathy: Status: Chronic Code(s): I25.5 - Ischemic cardiomyopathy Plan: He does have an ischemic mediated cardiomyopathy. His recent echocardiogram demonstrates his left ventricular systolic function to be diminished with an estimated LVEF of 10%. He will continue medical therapy. He does have an ICD in place. (5) Chronic systolic (congestive) heart failure: Status: Chronic Code(s): I50.22 - Chronic systolic (congestive) heart failure Plan: He does have chronic systolic CHF. At the present time he will continue medical management and support as best as possible. (6) Presence of automatic implantable cardioverter-defibrillator: Status: Chronic Code(s): Z95.810 - Presence of automatic (implantable) cardiac defibrillator Plan: He does have an ICD in place. It has been monitored in the past and has been thought to be functioning appropriately. (7) Hyperlipidemia: Status: Chronic Code(s): E78.5 - Hyperlipidemia, unspecified Qualifiers: Hyperlipidemia type: unspecified Qualified Code(s): E78.5 - Hyperlipidemia, unspecified Plan: He will continue medical therapy. (8) Benign essential hypertension: Status: Chronic Code(s): I10 - Essential (primary) hypertension Plan: His blood pressure has been low. He has been requiring IV Levophed therapy. An attempt will be made to introduce midodrine in the hopes that this will support his blood pressure and allow him to be weaned from the IV Levophed. Additional comment: Overall the patient will continue conservative medical management and support. He is reportedly enrolled in palliative care. He has requested eventual transfer to an extended care facility. Over time he may need to consider evol ving into hospice therapy as well. The patient's case was discussed and reviewed with Dr. Ortega.
[2020-11-20 09:26] LABS: Hematocrit 36.3 % (40-54); Hemoglobin 11.5 g/dL (13.0-16.5); Mean Corp Hgb Conc 31.7 g/dL (32-36); Mean Corpuscular Hgb 29.1 pg (27.0-32.0); Mean Corpuscular Volume 91.9 fL (80-94); RBC Distribution Width CV 15.5 % (11.6-14.6); RBC Distribution Width SD 52.2 fl (35.1-43.9); Red Blood Count 3.95 M/mm3 (4.6-6.2); White Blood Count 13.5 K/mm3 (4.4-11.0)
[2020-11-20 09:27] LABS: Mean Platelet Vol. 10.8 fl (6.2-12.0); POSITIVE DIFFERENTIAL YES; Platelet Count 232 K/mm3 (150-450)
[2020-11-20 09:28] LABS: Absolute Lymphocyte Count 0.47 X10^3/uL (0.83-4.51); Absolute Neutrophil Count 12.4 X10^3/uL (2.0-7.7); Basophil% 0.1 % (0-1); Differential Indicated SCAN CRITERIA MET; Eosinophils% 0.1 % (0-5); Lymphocyte # 0.47 X10^3/ul (0.83-4.51); Lymphocyte % 3.5 % (19-41); Monocyte% 3.8 % (0-10); Neutrophil # 12.44 X10^3/uL (2.7-7.7)
[2020-11-20 09:29] LABS: Differential Comment SCANNED; NRBC Flagged by Analyzer 0 % (0-5)
--- NOTE | 2020-11-20 10:00 | CASEMGMT ---
This RN CM participated in ICU multidisciplinary rounds. Pt is still on pressors and midodrine started this am. Pt's plan is still to go to [facility] at discharge. CM to follow. Doug HADLEY CM
--- NOTE | 2020-11-20 10:03 | CASEMGMT ---
SW called [facility], spoke w/[facility]. She states left SW [facility] a message, states they do take [facility]. [facility] faxed referral, [facility] is to call this SW back. SCOTT Avery
[2020-11-20] MEDS: Aspirin E.C. 81 MG Tablet PO (10:29)
[2020-11-20] MEDS: Glucerna Shake 120 ML LIQUID PO (10:30)
[2020-11-20] MEDS: APIXABAN 5 MG TABLET 10 MG PO ×2 (10:30→21:25)
[2020-11-20] MEDS: levETIRAcetam 500 MG Tablet PO (10:31)
[2020-11-20] MEDS: Polyethylene Glycol 3350 17 GM PACKET PO (10:31)
[2020-11-20] MEDS: Allopurinol 300 MG Tablet PO (10:32)
[2020-11-20] MEDS: Pantoprazole Sodium 40 MG Tablet PO (10:32)
[2020-11-20] MEDS: Ranolazine 500 MG Tablet PO ×2 (10:32→21:26)
--- NOTE | 2020-11-20 11:40 | PN.HOSP_ITS ---
Subjective Subjective: Feels well. Still on pressors. Breathing well. Objective Data Objective Data Vital Signs: Vital Signs Temp Pulse Resp BP Pulse Ox 36.8 C 94 20 H 93/67 99 11/20/20 08:00 11/20/20 11:00 11/20/20 11:00 11/20/20 11:00 11/20/20 11:00 Oxygen Flow Rate (L/min) 3 Oxygen Delivery Method Nasal Cannula Weight: 79.6 kg Body Mass Index (BMI) 24.2 Finger Stick Blood Glucose 195 Intake & Output: Intake and Output for Last 24 Hours 11/18/20 11/19/20 11/20/20 23:59 23:59 23:59 Intake Total 2849.45 / 2973.25 1186.89 / 1430.69 774.78 / 774.78 Output Total 475 / 475 750 / 750 0 / 0 Balance 2374.45 / 2498.25 436.89 / 680.69 774.78 / 774.78 Lab / Micro Data Result Diagrams: 11/20/20 05:05 11/20/20 05:05 Labs: Laboratory Results - last 24 hr 11/19/20 11/19/20 11/19/20 11:40 12:40 13:00 WBC RBC Hgb Hct MCV MCH MCHC RDW Std Deviation RDW Coeff of Maggie Plt Count MPV Immature Gran % (Auto) Neut % (Auto) Lymph % (Auto) Osborne % (Auto) Eos % (Auto) Baso % (Auto) Absolute Neuts (auto) Absolute Lymphs (auto) Nucleated RBC % Differential Comment APTT Cancelled 52.6 H Sodium Potassium Chloride Carbon Dioxide Anion Gap BUN Creatinine Estim Creat Clear Calc Est GFR (MDRD) Af Amer Est GFR (MDRD) Non-Af BUN/Creatinine Ratio Glucose Calcium POC Glucose 322 H 11/19/20 11/19/20 11/19/20 15:47 19:45 21:46 WBC RBC Hgb Hct MCV MCH MCHC RDW Std Deviation RDW Coeff of Maggie Plt Count MPV Immature Gran % (Auto) Neut % (Auto) Lymph % (Auto) Osborne % (Auto) Eos % (Auto) Baso % (Auto) Absolute Neuts (auto) Absolute Lymphs (auto) Nucleated RBC % Differential Comment APTT 60.2 H Sodium Potassium Chloride Carbon Dioxide Anion Gap BUN Creatinine Estim Creat Clear Calc Est GFR (MDRD) Af Amer Est GFR (MDRD) Non-Af BUN/Creatinine Ratio Glucose Calcium POC Glucose 282 H 240 H 11/20/20 11/20/20 05:05 05:05 WBC 13.5 H RBC 3.95 L Hgb 11.5 L Hct 36.3 L MCV 91.9 MCH 29.1 MCHC 31.7 L RDW Std Deviation 52.2 H RDW Coeff of Maggie 15.5 H Plt Count 232 MPV 10.8 Immature Gran % (Auto) 0.500 Neut % (Auto) 92.0 H Lymph % (Auto) 3.5 L Osborne % (Auto) 3.8 Eos % (Auto) 0.1 Baso % (Auto) 0.1 Absolute Neuts (auto) 12.4 H Absolute Lymphs (auto) 0.47 L Nucleated RBC % 0 Differential Comment SCANNED APTT Sodium 132 L Potassium 4.5 Chloride 94 L Carbon Dioxide 33.0 H Anion Gap 5 BUN 36 H Creatinine 1.54 H Estim Creat Clear Calc 43.80 Est GFR (MDRD) Af Amer 58 L Est GFR (MDRD) Non-Af 48 L BUN/Creatinine Ratio 23.4 H Glucose 153 H Calcium 8.7 POC Glucose Micro: Microbiology 11/20/20 05:30 Sputum, Expectorated/Coughed Gram Stain - Final 11/17/20 19:05 Blood Culture (Wb) #2 - Anticubital Left Blood Culture - Preliminary No growth in 48 hours. 11/17/20 19:50 Blood Culture (Wb) - Anticubital Left Blood Culture - Preliminary No growth in 48 hours. 11/18/20 13:10 Urine, Clean Catch Legionella Antigen - Final 11/18/20 13:10 Urine, Clean Catch Streptococcus pneumoniae Antigen (M - Final 11/17/20 22:45 Mucosa - Nasopharyngeal Respiratory Panel (PCR) - Final 11/17/20 19:20 Nasal Secretion SARS-CoV-2 Antigen (Rapid) - Final Radiography Diagnostic Testing: Radiology Impression Echocardiogram 11/18/20 07:47 Interpretation Summary The study was technically difficult. Contrast injection was performed. Moderately dilated left ventricle. Severe segmental systolic dysfunction (see wall motion). The estimated ejection fraction is 10 %. The left atrium is moderately enlarged. Mild diffuse mitral valve thickening. Mild papillary muscle dysfunction of the mitral valve. Moderate (2+) mitral valve insufficiency. Moderate (2+) tricuspid valve insufficiency. Mild diffuse aortic valve thickening. Moderate diffuse aortic valve calcification. Mild aortic stenosis. Right ventricular systolic pressure estimated to be 52 mmHg. Transmitral diastolic flow velocities suggest diastolic dysfunction (pseudonormal pattern). ICD or pacer leads identified within the right atrium ICD or pacer leads identified within the right ventricle. Ordering Physician: Carlos Pop Referring Physician: LISA De La Vega M.D. Performed By: Clem Ovalle RCS Physical Exam Const alert Neck no lymphadenopathy Resp normal respiratory effort Resp Narrative: bibasilar crackles Cardio regular rate and regular rhythm GI normal to inspection, nondistended, normoactive bowel sounds, soft to palpation, non-tender and non-distended Assessment & Plan Assessment/Plan (1) Acute respiratory failure with hypoxia: Status: Acute Code(s): J96.01 - Acute respiratory failure with hypoxia Plan: Improved. multifactorial (2) Pulmonary embolism: Status: Acute Code(s): I26.99 - Other pulmonary embolism without acute cor pulmonale Plan: apixaban (3) Shock: Status: Acute Code(s): R57.9 - Shock, unspecified Plan: ongoing on Levophed midodrine to be started (4) Pneumonia: Status: Acute Code(s): J18.9 - Pneumonia, unspecified organism Plan: on levofloxacin Inpatient E&M: 63105 Subs Hosp L2
[2020-11-20 11:55] LABS: Bedside Glucose 295 mg/dL (70-110)
--- NOTE | 2020-11-20 12:09 | CASEMGMT ---
Addendum entered by Altagracia Grace 11/20/20 12:26: SW spoke w/pt, let him know that [facility] to take him, SW will get back in contact with them closer to discharge with updated clinical information to see if they can appropriately care for pt. Pt states understanding. SW asked if okay to call step daughter Hillary Bolton to update her, he is in agreement with this. SW called Hillary, let her know referral was sent to [facility] and they will review his information again closer to discharge to see if they are able to accept pt. Hillary states understanding. She also states pt called his and told her that he is dying, Hillary asking for clarification. SW explained will ask RN to call Hillary to update her. SW asked RN to call Hillary, she will do so as time allows. SW will continue to follow. SCOTT Avery Original Note: [facility] and confirm they take pt's insurance. They would like to look at his information again once he is out of ICU, to make sure that they can medically care for pt. DENYS will continue to follow. SCOTT Avery
--- NOTE | 2020-11-20 12:16 | PN.CC_ITS ---
Subjective Subjective: Patient did okay overnight. Patient continues to report significant back pain, but states this is his baseline. Patient continues to be on pressor agents to maintain appropriate blood pressure. No bleeding complications have been reported following transition to Eliquis therapy. Patient has been on his baseline nasal cannula oxygen, but still reports dyspnea with minimal exertion. Patient was able to get up with physical therapy yesterday. Objective Data Objective Data Vital Signs: Vital Signs Temp Pulse Resp BP Pulse Ox 36.8 C 94 20 H 93/67 99 11/20/20 08:00 11/20/20 11:00 11/20/20 11:00 11/20/20 11:00 11/20/20 11:00 Oxygen Flow Rate (L/min) 3 Oxygen Delivery Method Nasal Cannula Weight: 79.6 kg Body Mass Index (BMI) 24.2 Finger Stick Blood Glucose 195 Intake & Output: Intake and Output for Last 24 Hours 11/18/20 11/19/20 11/20/20 23:59 23:59 23:59 Intake Total 2849.45 / 2973.25 1186.89 / 1430.69 774.78 / 774.78 Output Total 475 / 475 750 / 750 0 / 0 Balance 2374.45 / 2498.25 436.89 / 680.69 774.78 / 774.78 Lab / Micro Data Result Diagrams: 11/20/20 05:05 11/20/20 05:05 Labs: Laboratory Results - last 24 hr 11/19/20 11/19/20 11/19/20 12:40 13:00 15:47 WBC RBC Hgb Hct MCV MCH MCHC RDW Std Deviation RDW Coeff of Maggie Plt Count MPV Immature Gran % (Auto) Neut % (Auto) Lymph % (Auto) [place] % (Auto) Eos % (Auto) Baso % (Auto) Absolute Neuts (auto) Absolute Lymphs (auto) Nucleated RBC % Differential Comment APTT Cancelled 52.6 H Sodium Potassium Chloride Carbon Dioxide Anion Gap BUN Creatinine Estim Creat Clear Calc Est GFR (MDRD) Af Amer Est GFR (MDRD) Non-Af BUN/Creatinine Ratio Glucose Calcium POC Glucose 282 H 11/19/20 11/19/20 11/20/20 19:45 21:46 05:05 WBC RBC Hgb Hct MCV MCH MCHC RDW Std Deviation RDW Coeff of Maggie Plt Count MPV Immature Gran % (Auto) Neut % (Auto) Lymph % (Auto) [place] % (Auto) Eos % (Auto) Baso % (Auto) Absolute Neuts (auto) Absolute Lymphs (auto) Nucleated RBC % Differential Comment APTT 60.2 H Sodium 132 L Potassium 4.5 Chloride 94 L Carbon Dioxide 33.0 H Anion Gap 5 BUN 36 H Creatinine 1.54 H Estim Creat Clear Calc 43.80 Est GFR (MDRD) Af Amer 58 L Est GFR (MDRD) Non-Af 48 L BUN/Creatinine Ratio 23.4 H Glucose 153 H Calcium 8.7 POC Glucose 240 H 11/20/20 11/20/20 05:05 11:49 WBC 13.5 H RBC 3.95 L Hgb 11.5 L Hct 36.3 L MCV 91.9 MCH 29.1 MCHC 31.7 L RDW Std Deviation 52.2 H RDW Coeff of Maggie 15.5 H Plt Count 232 MPV 10.8 Immature Gran % (Auto) 0.500 Neut % (Auto) 92.0 H Lymph % (Auto) 3.5 L [place] % (Auto) 3.8 Eos % (Auto) 0.1 Baso % (Auto) 0.1 Absolute Neuts (auto) 12.4 H Absolute Lymphs (auto) 0.47 L Nucleated RBC % 0 Differential Comment SCANNED APTT Sodium Potassium Chloride Carbon Dioxide Anion Gap BUN Creatinine Estim Creat Clear Calc Est GFR (MDRD) Af Amer Est GFR (MDRD) Non-Af BUN/Creatinine Ratio Glucose Calcium POC Glucose 295 H Micro: Microbiology 11/20/20 05:30 Sputum, Expectorated/Coughed Gram Stain - Final 11/17/20 19:05 Blood Culture (Wb) #2 - Anticubital Left Blood Culture - Preliminary No growth in 48 hours. 11/17/20 19:50 Blood Culture (Wb) - Anticubital Left Blood Culture - Preliminary No growth in 48 hours. 11/18/20 13:10 Urine, Clean Catch Legionella Antigen - Final 11/18/20 13:10 Urine, Clean Catch Streptococcus pneumoniae Antigen (M - Final 11/17/20 22:45 Mucosa - Nasopharyngeal Respiratory Panel (PCR) - Final 11/17/20 19:20 Nasal Secretion SARS-CoV-2 Antigen (Rapid) - Final Radiography Diagnostic Testing: Radiology Impression Echocardiogram 11/18/20 07:47 Interpretation Summary The study was technically difficult. Contrast injection was performed. Moderately dilated left ventricle. Severe segmental systolic dysfunction (see wall motion). The estimated ejection fraction is 10 %. The left atrium is moderately enlarged. Mild diffuse mitral valve thickening. Mild papillary muscle dysfunction of the mitral valve. Moderate (2+) mitral valve insufficiency. Moderate (2+) tricuspid valve insufficiency. Mild diffuse aortic valve thickening. Moderate diffuse aortic valve calcification. Mild aortic stenosis. Right ventricular systolic pressure estimated to be 52 mmHg. Transmitral diastolic flow velocities suggest diastolic dysfunction (pseudonormal pattern). ICD or pacer leads identified within the right atrium ICD or pacer leads identified within the right ventricle. ___ Ordering Physician: Carlos Pop Referring Physician: LIAS De La Vega M.D. Performed By: Clem Ovalle RCS Physical Exam Const alert, oriented x3 and no apparent distress General Appearance: cooperative, well developed and frail; Negative for in distress or ill appearing HEENT normocephalic, head/scalp atraumatic and moist oral mucous membranes Mouth: oral and palatal mucosa normal Eyes PERRL, EOMs intact bilaterally and conjunctivae normal Neck full ROM and no lymphadenopathy Resp Effort and Inspection: Negative for uses accessory muscles Auscultation: wheezes throughout and diminished lung sounds; Negative for rales or rhonchi Cardio regular rate, regular rhythm, S1 normal heart sound, S2 normal heart sound, no murmurs, no rub and no gallops GI normal to inspection, nondistended, normoactive bowel sounds Extremity no clubbing, cyanosis or edema Skin no rashes or lesions noted Skin Narrative: Dermal atrophy noted Neuro oriented x3 and CN's II-XII intact bilaterally Psych cooperative Speech: normal speech Assessment & Plan Assessment/Plan (1) Shock: Status: Acute Code(s): R57.9 - Shock, unspecified (2) Pulmonary embolism: Status: Acute Code(s): I26.99 - Other pulmonary embolism without acute cor pulmonale Qualifiers: Pulmonary embolism type: single subsegmental (without acute cor pulm onale) Qualified Code(s): I26.93 - Single subsegmental pulmonary embolism without acute cor pulmonale (3) Acute respiratory failure with hypoxia: Status: Acute Code(s): J96.01 - Acute respiratory failure with hypoxia (4) Atherosclerosis of coronary artery bypass graft without angina pectoris: Status: Chronic Code(s): I25.810 - Atherosclerosis of coronary artery bypass graft(s) without angina pectoris Qualifiers: [place] vs. transplanted heart: [place] heart Qualified Code(s): I25.810 - Atherosclerosis of coronary artery bypass graft(s) without angina pectoris (5) ARIADNA (obstructive sleep apnea): Status: Chronic Code(s): G47.33 - Obstructive sleep apnea (adult) (pediatric) (6) COPD (chronic obstructive pulmonary disease): Status: Chronic Code(s): J44.9 - Chronic obstructive pulmonary disease, unspecified Qualifiers: Chronic bronchitis type: mixed simple and mucopurulent COPD type: chronic bronchitis Qualified Code(s): J41.8 - Mixed simple and mucopurulent chronic bronchitis (7) Chronic back pain: Status: Chronic Code(s): M54.9 - Dorsalgia, unspecified; G89.29 - Other chronic pain Qualifiers: Back pain location: low back pain Back pain laterality: midline Sc iatica presence: without sciatica Qualified Code(s): M54.5 - Low back pain; G89.29 - Other chronic pain (8) Gout: Status: Chronic Code(s): M10.9 - Gout, unspecified Qualifiers: Gout site: unspecified site Gout etiology: unspecified cause Chronicity: chronic Presence of tophus: without tophus Qualified Code(s): M1A.9XX0 - Chronic gout, unspecified, without tophus (tophi) (9) Nicotine dependence: Status: Chronic Code(s): F17.200 - Nicotine dependence, unspecified, uncomplicated Qualifiers: Nicotine product type: cigarettes Substance use status: unspecified nicotine-induced disorder Qualified Code(s): F17.219 - Nicotine dependence, cigarettes, with unspecified nicotine-induced disorders (10) Benign essential hypertension: Status: Chronic Code(s): I10 - Essential (primary) hypertension (11) Hyperlipidemia: Status: Chronic Code(s): E78.5 - Hyperlipidemia, unspecified Qualifiers: Hyperlipidemia type: unspecified Qualified Code(s): E78.5 - Hyperlipidemia, unspecified (12) Gastroesophageal reflux disease: Status: Chronic Code(s): K21.9 - Gastro-esophageal reflux disease without esophagitis Qualifiers: Esophagitis presence: esophagitis presence not specified Qualified Code(s): K21.9 - Gastro-esophageal reflux disease without esophagitis (13) Type 2 diabetes mellitus: Status: Chronic Code(s): E11.9 - Type 2 diabetes mellitus without complications Qualifiers: Diabetes mellitus complication status: with other specified complication Diabetes mellitus terminal press operator insulin use: without terminal press operator use Qualified Code(s): E11.69 - Type 2 diabetes mellitus with other specified complication Plan: RECOMMENDATIONS: 1. Wean supplemental oxygen to maintain saturations at or above 90%. 2. Monitor off antimicrobials 3. Continue scheduled bronchodilators. 4. Minimize fluids. 5. Continue Levophed to maintain a mean arterial pressure at or above 6 mmHg.0 6. Initiate midodrine if okay with cardiology 7. Electrolyte repletion as needed. 8. Okay to continue with 10 a inhibitor 9. Appreciate cardiology consultation. IMPRESSIONS: 1. Acute hypoxemic respiratory failure/history of COPD/pulmonary emboli The patient's presenting respiratory failure is likely multi factorial in etiology with acute PE, possible decompensated heart failure and community- acquired pneumonia contributing. Accordingly, the patient will be continued on a 10 a inhibitor for the newly diagnosed lobar and segmental PE noted on CTA chest. Given marginal metabolic reserve, continued therapy for COPD exacerbation and pneumonia would be indicated. Okay to discontinue antibiotics from my perspective. Respiratory status appears to be relatively stable. 2. Shock Unclear if this is strictly distributive shock in the setting of possible pneumonia versus cardiogenic in etiology. Patient with continued pressor requirements. Clinical suspicion for an element of cardiogenic shock as patient does have a severely depressed EF. Repeat echocardiogram shows decrease in EF to 10%. Unclear if this is secondary to inability to deal with PE versus progression of disease. If patient does not improve in the next 24 to 48 hours, discussion about palliative measures may be necessary. Patient is not a good candidate for LVAD, but defer to cardiology. Continue to wean pressors as tolerated. Continue anticoagulation for pulmonary emboli. 3. Hypokalemia Electrolyte repletion as ordered. Recheck levels in the morning. 4. History of ischemic cardiomyopathy/systolic heart failure The patient does have a known history of coronary artery disease and did present with an elevated troponin and a BNP greater than 4000. However, the patient's current hemodynamic status would preclude the use of aggressive diuretics. Appreciate cardiology recommendations 5. Chronic tobacco dependency Patient appears to be precontemplative for smoking cessation at this time. Nicotine replacement has been initiated in the hospital. Patient follows with Dr. Pop as an outpatient. 6. History of gout/diabetes mellitus/hypothyroidism/chronic back pain/GERD/hypertension/hyperlipidemia Complicates care, management, recovery and prognosis. Continue to hold antihypertensives. TIME: 35 minutes of critical care time, independent of procedures, was spent addr essing the patient's acute hypoxemic respiratory failure, distributive versus cardiogenic shock, hypokalemia, history of ischemic cardiomyopathy, systolic heart failure, chronic tobacco dependency, review of all data and collaboration with the care team. (8 AM to 9 AM) [phone] [id number] Critical care first hour
[2020-11-20] MEDS: Mag Hydrox/Al Hydrox/Simeth 30 ML UDC PO (12:24)
[2020-11-20] MEDS: Insulin Lispro 100 UNIT/ML INSULN.PEN SC ×3 (12:27→21:22)
--- NOTE | 2020-11-20 15:05 | CASEMGMT ---
Social Work Note SW received call from Yuli Rodriguez at [facility], she is pt's new Addressing Machine Operator. SW updated Yuli on pt's admission to [facility]. Sera Galan TRANSPORT COORDINATOR, EMISSIONS TESTING TECHNICIAN
[2020-11-20] MEDS: Midodrine HCl 5 MG Tablet 10 MG PO (16:49)
[2020-11-20] MEDS: 0.9% Saline Lock 10 ML Syringe IV ×2 (16:50→21:23)
[2020-11-20 16:51] LABS: Bedside Glucose 213 mg/dL (70-110)
[2020-11-20] MEDS: Rosuvastatin 20 MG Tablet 40 MG PO (21:23)
[2020-11-20] MEDS: MELATONIN 3 MG TABLET PO (21:24)
[2020-11-20] MEDS: levoFLOXacin IV 750 MG/150 ML BAG 100 MG IV (21:26)
[2020-11-20 21:46] LABS: Bedside Glucose 236 mg/dL (70-110)
[2020-11-21] VITALS (27 sets, daily range): BP systolic 87–106; BP diastolic 60–77; PULSE 80–108; RESP 15–28; TEMP 36.2–36.9; O2SAT 90–100
[2020-11-21] MEDS: Albuterol 2.5 MG/3 ML VIAL.NEB. INHALATION ×4 (01:43→22:30)
[2020-11-21] MEDS: 0.9% Saline Lock 10 ML Syringe IV ×2 (05:25→13:18)
[2020-11-21] MEDS: oxyCODONE 5 MG Tablet 10 MG PO ×3 (05:25→18:56)
[2020-11-21] MEDS: Levothyroxine 25 MCG TABLET PO (05:25)
[2020-11-21] MEDS: Ipratropium/Albuterol Sulfate 3 ML AMPUL.NEB INHALATION ×4 (05:45→19:46)
[2020-11-21 06:05] LABS: Anion Gap 6 (5-15); BUN 41 mg/dL (7-18); BUN/Creat Ratio 27.3 RATIO (10-20); Calcium,Total 8.8 mg/dL (8.5-10.1); Chloride 93 mmol/L (98-107); EST Glomerular Filtration Rate 49 mL/min (>60); Est Glom Filt Rate - Afr Amer 60 mL/min (>60); Estimated Creatinine Clearance 44.97 ml/min; Glucose 159 mg/dL (74-106); Magnesium 2.3 mg/dL (1.6-2.6); Phosphorus 2.9 mg/dL (2.5-4.9); Sodium Level 130 mmol/L (136-145)
--- NOTE | 2020-11-21 06:48 | PCM.PN.INT ---
Subjective Subjective: Patient did okay overnight. Patient continues to report dyspnea and is requesting DuoNeb's every 2 hours. Patient states that he feels well initially, but worsens with time. Patient is not associating this with rest. No chest pain has been reported. Patient was able to be taken off of pressors yesterday and has tolerated well. Objective Data Objective Data Vital Signs: Vital Signs Temp Pulse Resp BP Pulse Ox 36.2 C L 98 26 H 95/66 97 11/21/20 04:00 11/21/20 06:00 11/21/20 06:00 11/21/20 06:00 11/21/20 06:00 Oxygen Flow Rate (L/min) 3 Oxygen Delivery Method Nasal Cannula Weight: 79.6 kg Body Mass Index (BMI) 24.2 Finger Stick Blood Glucose 195 Intake & Output: Intake and Output for Last 24 Hours 11/19/20 11/20/20 11/21/20 23:59 23:59 23:59 Intake Total 1186.89 / 1430.69 2124.78 / 2364.78 360 / 360 Output Total 750 / 750 350 / 350 400 / 400 Balance 436.89 / 680.69 1774.78 / 2014.78 -40 / -40 Lab / Micro Data Result Diagrams: 11/20/20 05:05 11/21/20 05:30 Labs: Laboratory Results - last 24 hr 11/20/20 11/20/20 11/20/20 05:05 05:05 11:49 WBC 13.5 H RBC 3.95 L Hgb 11.5 L Hct 36.3 L MCV 91.9 MCH 29.1 MCHC 31.7 L RDW Std Deviation 52.2 H RDW Coeff of Maggie 15.5 H Plt Count 232 MPV 10.8 Immature Gran % (Auto) 0.500 Neut % (Auto) 92.0 H Lymph % (Auto) 3.5 L [place] % (Auto) 3.8 Eos % (Auto) 0.1 Baso % (Auto) 0.1 Absolute Neuts (auto) 12.4 H Absolute Lymphs (auto) 0.47 L Nucleated RBC % 0 Differential Comment SCANNED Sodium 132 L Potassium 4.5 Chloride 94 L Carbon Dioxide 33.0 H Anion Gap 5 BUN 36 H Creatinine 1.54 H Estim Creat Clear Calc 43.80 Est GFR (MDRD) Af Amer 58 L Est GFR (MDRD) Non-Af 48 L BUN/Creatinine Ratio 23.4 H Glucose 153 H Calcium 8.7 Phosphorus Magnesium POC Glucose 295 H 11/20/20 11/20/20 11/21/20 16:46 21: 05:30 WBC RBC Hgb Hct MCV MCH MCHC RDW Std Deviation RDW Coeff of Maggie Plt Count MPV Immature Gran % (Auto) Neut % (Auto) Lymph % (Auto) [place] % (Auto) Eos % (Auto) Baso % (Auto) Absolute Neuts (auto) Absolute Lymphs (auto) Nucleated RBC % Differential Comment Sodium 130 L Potassium 6.0 H* Chloride 93 L Carbon Dioxide 31.0 Anion Gap 6 BUN 41 H Creatinine 1.50 H Estim Creat Clear Calc 44.97 Est GFR (MDRD) Af Amer 60 Est GFR (MDRD) Non-Af 49 L BUN/Creatinine Ratio 27.3 H Glucose 159 H Calcium 8.8 Phosphorus 2.9 Magnesium 2.3 POC Glucose 213 H 236 H Micro: Microbiology 11/20/20 05:30 Sputum, Expectorated/Coughed Gram Stain - Final 11/17/20 19:05 Blood Culture (Wb) #2 - Anticubital Left Blood Culture - Preliminary No growth in 48 hours. 11/17/20 19:50 Blood Culture (Wb) - Anticubital Left Blood Culture - Preliminary No growth in 48 hours. 11/18/20 13:10 Urine, Clean Catch Legionella Antigen - Final 11/18/20 13:10 Urine, Clean Catch Streptococcus pneumoniae Antigen (M - Final 11/17/20 22:45 Mucosa - Nasopharyngeal Respiratory Panel (PCR) - Final 11/17/20 19:20 Nasal Secretion SARS-CoV-2 Antigen (Rapid) - Final Physical Exam Const alert, oriented x3 and no apparent distress Constitutional Narrative: No conversational dyspnea, but does appear anxious General Appearance: cooperative, well developed, in distress and frail; Negative for ill appearing HEENT normocephalic, head/scalp atraumatic and moist oral mucous membranes Eyes PERRL, EOMs intact bilaterally and conjunctivae normal Neck full ROM and no lymphadenopathy Resp Effort and Inspection: able to speak in complete sentences and prolonged expiratory phase; Negative for uses accessory muscles Auscultation: diminished lung sounds; Negative for rales, rhonchi or wheezes Cardio regular rate, regular rhythm, S1 normal heart sound, S2 normal heart sound, no murmurs, no rub and no gallops GI normal to inspection, nondistended, normoactive bowel sounds Extremity no clubbing, cyanosis or edema Skin no rashes or lesions noted Skin Narrative: Dermal atrophy noted Neuro oriented x3 and CN's II-XII intact bilaterally Psych cooperative Speech: normal speech Assessment & Plan Assessment/Plan (1) Shock: Status: Acute Code(s): R57.9 - Shock, unspecified (2) Pulmonary embolism: Status: Acute Code(s): I26.99 - Other pulmonary embolism without acute cor pulmonale Qualifiers: Pulmonary embolism type: single subsegmental (without acute cor pulmonale) Qualified Code(s): I26.93 - Single subsegmental pulmonary embolism without acute cor pulmonale (3) Acute respiratory failure with hypoxia: Status: Acute Code(s): J96.01 - Acute respiratory failure with hypoxia (4) Atherosclerosis of coronary artery bypass graft without angina pectoris: Status: Chronic Code(s): I25.810 - Atherosclerosis of coronary artery bypass graft(s) without angina pectoris Qualifiers: [place] vs. transplanted heart: [place] heart Qualified Code(s): I25.810 - Atherosclerosis of coronary artery bypass graft(s) without angina pectoris (5) ARIADNA (obstructive sleep apnea): Status: Chronic Code(s): G47.33 - Obstructive sleep apnea (adult) (pediatric) (6) COPD (chronic obstructive pulmonary disease): Status: Chronic Code(s): J44.9 - Chronic obstructive pulmonary disease, unspecified Qualifiers: COPD type: chronic bronchitis Chronic bronchitis type: mixed simple and mucopurulent Qualified Code(s): J41.8 - Mixed simple and mucopurulent chronic bronchitis (7) Chronic back pain: Status: Chronic Code(s): M54.9 - Dorsalgia, unspecified; G89.29 - Other chronic pain Qualifiers: Back pain location: low back pain Back pain laterality: midline Sciatica presence: without sciatica Qualified Code(s): M54.5 - Low back pain; G89.29 - Other chronic pain (8) Gout: Status: Chronic Code(s): M10.9 - Gout, unspecified Qualifiers: Gout site: unspecified site Gout etiology: unspecified cause Chronicity: chronic Presence of tophus: without tophus Qualified Code(s): M1A.9XX0 - Chronic gout, unspecified, without tophus (tophi) (9) Nicotine dependence: Status: Chronic Code(s): F17.200 - Nicotine dependence, unspecified, uncomplicated Qualifiers: Nicotine product type: cigarettes Substance use status: unspecified nicotine-induced disorder Qualified Code(s): F17.219 - Nicotine dependence, cigarettes, with unspecified nicotine-induced disorders (10) Benign essential hypertension: Status: Chronic Code(s): I10 - Essential (primary) hypertension (11) Hyperlipidemia: Status: Chronic Code(s): E78.5 - Hyperlipidemia, unspecified Qualifiers: Hyperlipidemia type: unspecified Qualified Code(s): E78.5 - Hyperlipidemia, unspecified (12) Gastroesophageal reflux disease: Status: Chronic Code(s): K21.9 - Gastro-esophageal reflux disease without esophagitis Qualifiers: Esophagitis presence: esophagitis presence not specified Qualified Code(s): K21.9 - Gastro-esophageal reflux disease without esophagitis (13) Type 2 diabetes mellitus: Status: Chronic Code(s): E11.9 - Type 2 diabetes mellitus without complications Qualifiers: Diabetes mellitus complication status: with other specified complication Diabetes mellitus local intermodal truck driver insulin use: without skilled nursing use Qualified Code(s): E11.69 - Type 2 diabetes mellitus with other specified complication Plan: RECOMMENDATIONS: 1. Wean supplemental oxygen to maintain saturations at or above 90%. 2. Monitor off antimicrobials 3. Transition to 5-day prednisone burst 4. Minimize fluids. 5. Continue midodrine at current dosing 6. Hold on electrolyte repletion. Likely not necessary to address hyperkalemia 7. Continue telemetry 8. Okay to continue with 10 a inhibitor 9. Okay to leave the intensive care unit IMPRESSIONS: 1. Acute hypoxemic respiratory failure/history of COPD/pulmonary emboli The patient's presenting respiratory failure is likely multi factorial in etiology with acute PE, possible decompensated heart failure and community-acquired pneumonia contributing. Accordingly, the patient will be continued on a 10 a inhibitor for the newly diagnosed lobar and segmental PE noted on CTA chest. Patient still requiring/requesting multiple aerosols. Unclear if this is related to anxiety as he did not have wheezing on my exam. Will place on a 5-day burst of prednisone. 2. Shock Unclear if this is strictly distributive shock in the setting of possible pneumonia versus cardiogenic in etiology. Patient with continued pressor requirements. Clinical suspicion for an element of cardiogenic shock as patient does have a severely depressed EF. Repeat echocardiogram shows decrease in EF to 10%. Unclear if this is secondary to inability to deal with PE versus progression of disease. Patient appears to have responded to midodrine therapy. Continue anticoagulation for pulmonary emboli. 3. Hypokalemia Electrolyte repletion as ordered. Recheck levels in the morning. Clinical suspicion for elevated potassium secondary to repletion. Will monitor with telemetry and repeat BMP in the a.m. 4. History of ischemic cardiomyopathy/systolic heart failure The patient does have a known history of coronary artery disease and did present with an elevated troponin and a BNP greater than 4000. However, the patient's current hemodynamic status would preclude the use of aggressive diuretics. Appreciate cardiology recommendations 5. Chronic tobacco dependency Patient appears to be precontemplative for smoking cessation at this time. Nicotine replacement has been initiated in the hospital. Patient follows with Dr. Pop as an outpatient. 6. History of gout/diabetes mellitus/hypothyroidism/chronic back pain/GERD/hypertension/hyperlipidemia Complicates care, management, recovery and prognosis. Continue to hold antihypertensives. In[facility] E&M: [id number]
[2020-11-21] MEDS: Midodrine HCl 5 MG Tablet 10 MG PO ×3 (07:39→16:38)
[2020-11-21] MEDS: predniSONE 20 MG Tablet 40 MG PO (07:40)
[2020-11-21 07:50] LABS: Bedside Glucose 167 mg/dL (70-110)
--- NOTE | 2020-11-21 08:21 | PCM.PN.CARD ---
Objective Data Objective Data Vital Signs: Vital Signs Temp Pulse Resp BP Pulse Ox 98.3 F 101 H 22 H 98/71 98 11/21/20 08:00 11/21/20 08:00 11/21/20 08:00 11/21/20 08:00 11/21/20 08:00 Oxygen Flow Rate (L/min) 3 Oxygen Delivery Method Nasal Cannula Weight: 175 lb 7.807 oz Body Mass Index (BMI) 24.2 Finger Stick Blood Glucose 195 Intake & Output: Intake and Output for Last 24 Hours 11/19/20 11/20/20 11/21/20 23:59 23:59 23:59 Intake Total 1186.89 / 1430.69 2124.78 / 2364.78 450 / 450 Output Total 750 / 750 350 / 350 500 / 500 Balance 436.89 / 680.69 1774.78 / 2014.78 -50 / -50 Lab / Micro Data Result Diagrams: 11/20/20 05:05 11/21/20 05:30 Labs: Laboratory Results - last 24 hr 11/20/20 11/20/20 11/20/20 05:05 11:49 16:46 WBC 13.5 H RBC 3.95 L Hgb 11.5 L Hct 36.3 L MCV 91.9 MCH 29.1 MCHC 31.7 L RDW Std Deviation 52.2 H RDW Coeff of Maggie 15.5 H Plt Count 232 MPV 10.8 Immature Gran % (Auto) 0.500 Neut % (Auto) 92.0 H Lymph % (Auto) 3.5 L Fajardo % (Auto) 3.8 Eos % (Auto) 0.1 Baso % (Auto) 0.1 Absolute Neuts (auto) 12.4 H Absolute Lymphs (auto) 0.47 L Nucleated RBC % 0 Differential Comment SCANNED Sodium Potassium Chloride Carbon Dioxide Anion Gap BUN Creatinine Estim Creat Clear Calc Est GFR (MDRD) Af Amer Est GFR (MDRD) Non-Af BUN/Creatinine Ratio Glucose Calcium Phosphorus Magnesium POC Glucose 295 H 213 H 11/20/20 11/21/20 11/21/20 21:21 05:30 07:40 WBC RBC Hgb Hct MCV MCH MCHC RDW Std Deviation RDW Coeff of Maggie Plt Count MPV Immature Gran % (Auto) Neut % (Auto) Lymph % (Auto) Fajardo % (Auto) Eos % (Auto) Baso % (Auto) Absolute Neuts (auto) Absolute Lymphs (auto) Nucleated RBC % Differential Comment Sodium 130 L Potassium 6.0 H* Chloride 93 L Carbon Dioxide 31.0 Anion Gap 6 BUN 41 H Creatinine 1.50 H Estim Creat Clear Calc 44.97 Est GFR (MDRD) Af Amer 60 Est GFR (MDRD) Non-Af 49 L BUN/Creatinine Ratio 27.3 H Glucose 159 H Calcium 8.8 Phosphorus 2.9 Magnesium 2.3 POC Glucose 236 H 167 H Micro: Microbiology 11/20/20 05:30 Sputum, Expectorated/Coughed Gram Stain - Final 11/17/20 19:05 Blood Culture (Wb) #2 - Anticubital Left Blood Culture - Preliminary No growth in 48 hours. 11/17/20 19:50 Blood Culture (Wb) - Anticubital Left Blood Culture - Preliminary No growth in 48 hours. 11/18/20 13:10 Urine, Clean Catch Legionella Antigen - Final 11/18/20 13:10 Urine, Clean Catch Streptococcus pneumoniae Antigen (M - Final 11/17/20 22:45 Mucosa - Nasopharyngeal Respiratory Panel (PCR) - Final 11/17/20 19:20 Nasal Secretion SARS-CoV-2 Antigen (Rapid) - Final Physical Exam Const alert and oriented x3 Orientation / Consciousness: awake HEENT normocephalic Eyes PERRL, EOMs intact bilaterally, conjunctivae normal and no scleral icterus Neck full ROM and supple Chest Chest: midline sternotomy incision Resp Auscultation: diminished lung sounds Cardio regular rate, S1 normal heart sound and S2 normal heart sound Palpation: abnormal PMI Rate: regular rate Rhythm: regular rhythm, abnormal rhythm ectopic beats and other Heart Sounds: S1 normal and S2 normal GI normal to inspection, nondistended, normoactive bowel sounds Extremity no pedal edema 11/20/20 05:05: WBC 13.5 H, RBC 3.95 L, Hgb 11.5 L, Hct 36.3 L, MCV 91.9, MCH 29.1, MCHC 31.7 L, Plt Count 232, MPV 10.8, Immature Gran % (Auto) 0.500, Neut % (Auto) 92.0 H, Lymph % (Auto) 3.5 L, F[place]ardo % (Auto) 3.8, Eos % (Auto) 0.1, Baso % (Auto) 0.1, Absolute Neuts (auto) 12.4 H, Nucleated RBC % 0 11/21/20 05:30: Sodium 130 L, Potassium 6.0 H*, Chloride 93 L, Carbon Dioxide 31.0, Anion Gap 6, BUN 41 H, Creatinine 1.50 H, Est GFR (MDRD) Af Amer 60, Est GFR (MDRD) Non-Af 49 L, BUN/Creatinine Ratio 27.3 H, Glucose 159 H, Calcium 8.8, Phosphorus 2.9, Magnesium 2.3 Rhythm: EKG: ECHO: Stress Test: Cardiac Cath: PCI: CT Surgery: Holter monitor: EPS: PPM: CXR: Chest CT Scan: Assessment & Plan Assessment/Plan (1) CAD (coronary artery disease): Status: Chronic Code(s): I25.10 - Atherosclerotic heart disease of [place] coronary artery without angina pectoris Qualifiers: Coronary Disease-Associated Artery/Lesion type: unspecified vessel or lesion type [place] vs. transplanted heart: [place] heart Plan: The patient will continue risk factor evaluation care as deemed appropriate. The patient has undergone extensive noninvasive and invasive evaluation in the past. He has been evaluated locally and at [facility]. At [facility]-coupled with their colleagues at [facility]-he has been deemed not a candidate for any further intervention/procedures. (2) Stented coronary artery: Status: Chronic Plan: He does have a history of underlying CAD and is undergone multiple PCI procedures. At the present he will continue medical management. (3) H/O coronary artery bypass surgery: Status: Chronic Code(s): Z95.1 - Presence of aortocoronary bypass graft Plan: He has a history of underlying CABG. He is undergone noninvasive and invasive evaluation in the past. He has had multiple percutaneous interventions of his SVG graft to his OM system. At the present time he will continue medical management. (4) Ischemic cardiomyopathy: Status: Chronic Code(s): I25.5 - Ischemic cardiomyopathy Plan: He does have an ischemic mediated cardiomyopathy. His recent echocardiogram demonstrates his left ventricular systolic function to be diminished with an estimated LVEF of 10%. He will continue medical therapy. He does have an ICD in place. (5) Chronic systolic (congestive) heart failure: Status: Chronic Code(s): I50.22 - Chronic systolic (congestive) heart failure Plan: He does have chronic systolic CHF. At the present time he will continue medical management and support as best as possible. (6) Presence of automatic implantable cardioverter-defibrillator: Status: Chronic Code(s): Z95.810 - Presence of automatic (implantable) cardiac defibrillator Plan: He does have an ICD in place. It has been monitored in the past and has been thought to be functioning appropriately. (7) Hyperlipidemia: Status: Chronic Code(s): E78.5 - Hyperlipidemia, unspecified Qualifiers: Hyperlipidemia type: unspecified Qualified Code(s): E78.5 - Hyperlipidemia, unspecified Plan: He will continue medical therapy. (8) Benign essential hypertension: Status: Chronic Code(s): I10 - Essential (primary) hypertension Plan: His blood pressure has been low. He has been requiring IV Levophed therapy. An attempt will be made to introduce midodrine in the hopes that this will support his blood pressure and allow him to be weaned from the IV Levophed. Additional comment: Overall the patient will continue conservative medical management and support. He is reportedly enrolled in palliative care. He has requested eventual transfer to an extended care facility. Over time he may need to consider evolving into hospice therapy as well. The patient's case was discussed and reviewed with Dr. Ortega.
[2020-11-21] MEDS: Insulin Lispro 100 UNIT/ML INSULN.PEN SC ×4 (08:22→21:16)
[2020-11-21] MEDS: Polyethylene Glycol 3350 17 GM PACKET PO (09:24)
[2020-11-21] MEDS: Ranolazine 500 MG Tablet PO ×2 (09:25→21:15)
[2020-11-21] MEDS: Pantoprazole Sodium 40 MG Tablet PO (09:25)
[2020-11-21] MEDS: levETIRAcetam 500 MG Tablet PO (09:25)
[2020-11-21] MEDS: Aspirin E.C. 81 MG Tablet PO (09:26)
[2020-11-21] MEDS: Allopurinol 300 MG Tablet PO (09:26)
[2020-11-21] MEDS: Sodium Polystyrene Sulfonate 15 GM/60 ML UDC PO (09:34)
[2020-11-21] MEDS: APIXABAN 5 MG TABLET 10 MG PO ×2 (10:07→21:15)
--- NOTE | 2020-11-21 10:26 | CASEMGMT ---
Patient's step daughter arrived. DENYS gave her an envelope with a copy of patient's Healthcare Power of Boat Rigger and Healthcare Living Will. Patient asked about [place]. DENYS let him know they wanted to look at his information once he was out of ICU. DENYS told him once physicians get notes in today SW will send them updates. Patient's step daughter wanted to know about patient's medical status and any updates. DENYS told her SW will notify patient's RN. DENYS notified RN Eveline. Alyssa Corona IT APPLICATIONS DEVELOPER ELIZABETH
[2020-11-21 11:11] LABS: Bedside Glucose 196 mg/dL (70-110)
--- NOTE | 2020-11-21 12:08 | PCM.PN.HOSP ---
Subjective Subjective: Short of breath. Some relief with BDs. Objective Data Objective Data Vital Signs: Vital Signs Temp Pulse Resp BP Pulse Ox 36.8 C 102 H 19 H 106/77 98 11/21/20 09:16 11/21/20 10:43 11/21/20 10:20 11/21/20 09:16 11/21/20 10:20 Oxygen Flow Rate (L/min) 3 Oxygen Delivery Method Nasal Cannula Weight: 79.6 kg Body Mass Index (BMI) 24.2 Finger Stick Blood Glucose 195 Intake & Output: Intake and Output for Last 24 Hours 11/19/20 11/20/20 11/21/20 23:59 23:59 23:59 Intake Total 1186.89 / 1430.69 2124.78 / 2364.78 850 / 850 Output Total 750 / 750 350 / 350 500 / 500 Balance 436.89 / 680.69 1774.78 / 2014.78 350 / 350 Lab / Micro Data Result Diagrams: 11/20/20 05:05 11/21/20 05:30 Labs: Laboratory Results - last 24 hr 11/20/20 11/20/20 11/21/20 16:46 21:21 05:30 Sodium 130 L Potassium 6.0 H* Chloride 93 L Carbon Dioxide 31.0 Anion Gap 6 BUN 41 H Creatinine 1.50 H Estim Creat Clear Calc 44.97 Est GFR (MDRD) Af Amer 60 Est GFR (MDRD) Non-Af 49 L BUN/Creatinine Ratio 27.3 H Glucose 159 H Calcium 8.8 Phosphorus 2.9 Magnesium 2.3 POC Glucose 213 H 236 H 11/21/20 11/21/20 07:40 10:53 Sodium Potassium Chloride Carbon Dioxide Anion Gap BUN Creatinine Estim Creat Clear Calc Est GFR (MDRD) Af Amer Est GFR (MDRD) Non-Af BUN/Creatinine Ratio Glucose Calcium Phosphorus Magnesium POC Glucose 167 H 196 H Micro: Microbiology 11/20/20 05:30 Sputum, Expectorated/Coughed Gram Stain - Final 11/20/20 05:30 Sputum, Expectorated/Coughed Respiratory Culture - Preliminary Appears to be normal respiratory zhang. Further studies to follow. 11/17/20 19:05 Blood Culture (Wb) #2 - Anticubital Left Blood Culture - Preliminary No growth in 48 hours. 11/17/20 19:50 Blood Culture (Wb) - Anticubital Left Blood Culture - Preliminary No growth in 48 hours. 11/18/20 13:10 Urine, Clean Catch Legionella Antigen - Final 11/18/20 13:10 Urine, Clean Catch Streptococcus pneumoniae Antigen (M - Final 11/17/20 22:45 Mucosa - Nasopharyngeal Respiratory Panel (PCR) - Final 11/17/20 19:20 Nasal Secretion SARS-CoV-2 Antigen (Rapid) - Final Physical Exam Const alert Constitutional Narrative: up in bed. no respiratory distress. no coversational dyspnea. HEENT Head and Scalp: normocephalic Resp normal respiratory effort Resp Narrative: bibasilar crackles Cardio regular rate, regular rhythm, S1 normal heart sound and S2 normal heart sound Neuro Sensorium / Orientation: awake and alert Assessment & Plan Assessment/Plan (1) Acute and chronic respiratory failure with hypoxia: Status: Chronic Code(s): J96.21 - Acute and chronic respiratory failure with hypoxia (2) Pulmonary embolism: Status: Acute Code(s): I26.99 - Other pulmonary embolism without acute cor pulmonale Qualifiers: Pulmonary embolism type: single subsegmental (without acute cor pulmonale) Qualified Code(s): I26.93 - Single subsegmental pulmonary embolism without acute cor pulmonale (3) Pneumonia: Status: Acute Code(s): J18.9 - Pneumonia, unspecified organism (4) Shock: Status: Acute Code(s): R57.9 - Shock, unspecified (5) COPD exacerbation: Status: Chronic Code(s): J44.1 - Chronic obstructive pulmonary disease with (acute) exacerbation Plan: Not candidate for further intervention. Continue levofloxacin through the . Continue apixaban Prednisone through the Continue midodrine Medical mgmt for CAD DW patient about palliation of symptoms. Explained it will not correct any medical condition, but to lesson his symptoms. Continue palliative care. Not hospice appropriate at this time. Add lorazepam PRN for dyspnea. Inpatient E&M: 58679 Subs Hosp L2
[2020-11-21 13:11] LABS: Anion Gap 7 (5-15); BUN 44 mg/dL (7-18); BUN/Creat Ratio 29.5 RATIO (10-20); Calcium,Total 8.8 mg/dL (8.5-10.1); Chloride 94 mmol/L (98-107); Creatinine, Serum 1.49 mg/dL (0.70-1.30); EST Glomerular Filtration Rate 50 mL/min (>60); Est Glom Filt Rate - Afr Amer 60 mL/min (>60); Estimated Creatinine Clearance 45.27 ml/min; Glucose 194 mg/dL (74-106); Potassium 5.2 mmol/L (3.5-5.1); Sodium Level 129 mmol/L (136-145)
[2020-11-21] MEDS: Ondansetron 4 MG/2 ML Vial IV (13:18)
--- NOTE | 2020-11-21 15:40 | CASEMGMT ---
DENYS faxed updated information to [facility]. DENYS also followed up with a phone call. Await response. Alyssa Corona CASUALTY UNDERWRITER [employer] SUPERVISOR
[2020-11-21 16:45] LABS: Bedside Glucose 219 mg/dL (70-110)
--- NOTE | 2020-11-21 18:22 | PCM.PN.CARD ---
Subjective Subjective: The patient is now out of the ICU and in the PCU. He has chronic shortness of breath and dyspnea. Objective Data Objective Data Vital Signs: Vital Signs Temp Pulse Resp BP Pulse Ox 97.9 F 80 21 H 101/66 96 11/21/20 17:28 11/21/20 17:28 11/21/20 17:39 11/21/20 17:28 11/21/20 17:28 Oxygen Flow Rate (L/min) 3 Oxygen Delivery Method Nasal Cannula Weight: 175 lb 7.807 oz Body Mass Index (BMI) 24.2 Finger Stick Blood Glucose 195 Intake & Output: Intake and Output for Last 24 Hours 11/19/20 11/20/20 11/21/20 23:59 23:59 23:59 Intake Total 1186.89 / 1430.69 2124.78 / 2364.78 1550 / 1550 Output Total 750 / 750 350 / 350 600 / 600 Balance 436.89 / 680.69 1774.78 / 2014.78 950 / 950 Lab / Micro Data Result Diagrams: 11/20/20 05:05 11/21/20 12:30 Labs: Laboratory Results - last 24 hr 11/20/20 11/21/20 11/21/20 21:21 05:30 07:40 Sodium 130 L Potassium 6.0 H* Chloride 93 L Carbon Dioxide 31.0 Anion Gap 6 BUN 41 H Creatinine 1.50 H Estim Creat Clear Calc 44.97 Est GFR (MDRD) Af Amer 60 Est GFR (MDRD) Non-Af 49 L BUN/Creatinine Ratio 27.3 H Glucose 159 H Calcium 8.8 Phosphorus 2.9 Magnesium 2.3 POC Glucose 236 H 167 H 11/21/20 11/21/20 11/21/20 10:53 12:30 16:35 Sodium 129 L Potassium 5.2 H Chloride 94 L Carbon Dioxide 28.0 Anion Gap 7 BUN 44 H Creatinine 1.49 H Estim Creat Clear Calc 45.27 Est GFR (MDRD) Af Amer 60 Est GFR (MDRD) Non-Af 50 L BUN/Creatinine Ratio 29.5 H Glucose 194 H Calcium 8.8 Phosphorus Magnesium POC Glucose 196 H 219 H Micro: Microbiology 11/20/20 05:30 Sputum, Expectorated/Coughed Gram Stain - Final 11/20/20 05:30 Sputum, Expectorated/Coughed Respiratory Culture - Preliminary Appears to be normal respiratory zhang. Further studies to follow. 11/17/20 19:05 Blood Culture (Wb) #2 - Anticubital Left Blood Culture - Preliminary No growth in 48 hours. 11/17/20 19:50 Blood Culture (Wb) - Anticubital Left Blood Culture - Preliminary No growth in 48 hours. 11/18/20 13:10 Urine, Clean Catch Legionella Antigen - Final 11/18/20 13:10 Urine, Clean Catch Streptococcus pneumoniae Antigen (M - Final 11/17/20 22:45 Mucosa - Nasopharyngeal Respiratory Panel (PCR) - Final 11/17/20 19:20 Nasal Secretion SARS-CoV-2 Antigen (Rapid) - Final Physical Exam Const alert and oriented x3 Orientation / Consciousness: awake HEENT normocephalic and head/scalp atraumatic Eyes PERRL and EOMs intact bilaterally Neck full ROM and supple Chest Chest: midline sternotomy incision Resp Auscultation: diminished lung sounds Cardio regular rate, regular rhythm, S1 normal heart sound and S2 normal heart sound GI normal to inspection, nondistended, normoactive bowel sounds Extremity no pedal edema Psych mental status grossly normal Assessment & Plan Assessment/Plan (1) CAD (coronary artery disease): Status: Chronic Code(s): I25.10 - Atherosclerotic heart disease of [place] coronary artery without angina pectoris Qualifiers: Coronary Disease-Associated Artery/Lesion type: unspecified vessel or lesion type [place] vs. transplanted heart: [place] heart Plan: The patient will continue risk factor evaluation care as deemed appropriate. The patient has undergone extensive noninvasive and invasive evaluation in the past. He has been evaluated locally and at [facility]. At [facility]-coupled with their colleagues at [facility]-he has been deemed not a candidate for any further intervention/procedures. (2) Stented coronary artery: Status: Chronic Plan: He does have a history of underlying CAD and is undergone multiple PCI procedures. At the present he will continue medical management. (3) H/O coronary artery bypass surgery: Status: Chronic Code(s): Z95.1 - Presence of aortocoronary bypass graft Plan: He has a history of underlying CABG. He is undergone noninvasive and invasive evaluation in the past. He has had multiple percutaneous interventions of his SVG graft to his OM system. At the present time he will continue medical management. (4) Ischemic cardiomyopathy: Status: Chronic Code(s): I25.5 - Ischemic cardiomyopathy Plan: He does have an ischemic mediated cardiomyopathy. His recent echocardiogram demonstrates his left ventricular systolic function to be diminished with an estimated LVEF of 10%. He will continue medical therapy. He does have an ICD in place. (5) Chronic systolic (congestive) heart failure: Status: Chronic Code(s): I50.22 - Chronic systolic (congestive) heart failure Plan: He does have chronic systolic CHF. At the present time he will continue medical management and support as best as possible. (6) Presence of automatic implantable cardioverter-defibrillator: Status: Chronic Code(s): Z95.810 - Presence of automatic (implantable) cardiac defibrillator Plan: He does have an ICD in place. It has been monitored in the past and has been thought to be functioning appropriately. (7) Hyperlipidemia: Status: Chronic Code(s): E78.5 - Hyperlipidemia, unspecified Qualifiers: Hyperlipidemia type: unspecified Qualified Code(s): E78.5 - Hyperlipidemia, unspecified Plan: He will continue medical therapy. (8) Benign essential hypertension: Status: Chronic Code(s): I10 - Essential (primary) hypertension Plan: His blood pressure has been low. He was placed on medical therapy with midodrine. He has been able to be weaned off his IV vasopressor and remain on midodrine to assist with supporting his blood pressure. He is now in the PCU. Addt'l Comments At the present time the patient will continue served of medical management. As noted above he is not an ideal candidate for further cardiac intervention. He has been enrolled in palliative care. Over time this may transition to hospice care. His case has been discussed with the [facility] staff.
[2020-11-21] MEDS: Rosuvastatin 20 MG Tablet 40 MG PO (21:15)
[2020-11-21] MEDS: levoFLOXacin IV 750 MG/150 ML BAG 100 MG IV (21:21)
[2020-11-21 21:55] LABS: Bedside Glucose 193 mg/dL (70-110)
[2020-11-21] MEDS: MELATONIN 3 MG TABLET PO (23:11)
[2020-11-22] VITALS (16 sets, daily range): BP systolic 93–101; BP diastolic 60–72; PULSE 88–108; RESP 18–21; TEMP 36.4–36.6; O2SAT 93–100
[2020-11-22] MEDS: Ipratropium/Albuterol Sulfate 3 ML AMPUL.NEB INHALATION ×5 (02:04→19:24)
[2020-11-22] MEDS: oxyCODONE 5 MG Tablet 10 MG PO ×2 (02:43→09:17)
[2020-11-22 06:02] LABS: Absolute Lymphocyte Count 0.54 X10^3/uL (0.83-4.51); Absolute Neutrophil Count 9.4 X10^3/uL (2.0-7.7); Basophil# 0.01 X10^3/uL; Basophil% 0.1 % (0-1); Differential Indicated SCAN CRITERIA MET; Hematocrit 36.7 % (40-54); Hemoglobin 11.5 g/dL (13.0-16.5); Lymphocyte # 0.54 X10^3/ul (0.83-4.51); Lymphocyte % 5.1 % (19-41); Mean Corp Hgb Conc 31.3 g/dL (32-36); Mean Corpuscular Volume 92.4 fL (80-94); Mean Platelet Vol. 11.1 fl (6.2-12.0); Monocyte# 0.55 X10^3/uL; Monocyte% 5.2 % (0-10); NRBC Flagged by Analyzer 0 % (0-5); POSITIVE DIFFERENTIAL YES; Platelet Count 245 K/mm3 (150-450); RBC Distribution Width CV 15.4 % (11.6-14.6); RBC Distribution Width SD 52.7 fl (35.1-43.9); Red Blood Count 3.97 M/mm3 (4.6-6.2); White Blood Count 10.7 K/mm3 (4.4-11.0)
[2020-11-22 06:26] LABS: Anion Gap 6 (5-15); BUN 45 mg/dL (7-18); BUN/Creat Ratio 32.1 RATIO (10-20); Calcium,Total 8.6 mg/dL (8.5-10.1); Chloride 93 mmol/L (98-107); EST Glomerular Filtration Rate 53 mL/min (>60); Est Glom Filt Rate - Afr Amer 65 mL/min (>60); Estimated Creatinine Clearance 48.18 ml/min; Glucose 169 mg/dL (74-106); Potassium 5.1 mmol/L (3.5-5.1); Sodium Level 130 mmol/L (136-145)
[2020-11-22 06:30] LABS: Differential Comment SCANNED
[2020-11-22] MEDS: Insulin Lispro 100 UNIT/ML INSULN.PEN SC ×4 (06:39→20:32)
[2020-11-22] MEDS: Levothyroxine 25 MCG TABLET PO (06:40)
[2020-11-22 06:55] LABS: Bedside Glucose 178 mg/dL (70-110)
[2020-11-22] MEDS: predniSONE 20 MG Tablet 40 MG PO (09:10)
[2020-11-22] MEDS: Ranolazine 500 MG Tablet PO ×2 (09:10→20:32)
[2020-11-22] MEDS: Allopurinol 300 MG Tablet PO (09:10)
[2020-11-22] MEDS: Midodrine HCl 5 MG Tablet 10 MG PO ×3 (09:10→17:09)
[2020-11-22] MEDS: Aspirin E.C. 81 MG Tablet PO (09:11)
[2020-11-22] MEDS: Pantoprazole Sodium 40 MG Tablet PO (09:11)
[2020-11-22] MEDS: APIXABAN 5 MG TABLET 10 MG PO ×2 (09:11→20:32)
[2020-11-22] MEDS: levETIRAcetam 500 MG Tablet PO (09:11)
[2020-11-22] MEDS: Magnesium Hydroxide 30 ML UDC PO (09:17)
--- NOTE | 2020-11-22 09:46 | PN.CC_ITS ---
Subjective Subjective: Patient did well overnight. No acute issues were reported. Patient transferred out of the intensive care unit. Patient is not reporting any orthostatic type symptoms. Patient is on baseline nasal cannula oxygen and tolerating well. Objective Data Objective Data Vital Signs: Vital Signs Temp Pulse Resp BP Pulse Ox 36.4 C L 90 18 93/60 99 11/22/20 09:04 11/22/20 09:04 11/22/20 09:04 11/22/20 09:04 11/22/20 09:04 Oxygen Flow Rate (L/min) 3 Oxygen Delivery Method Nasal Cannula Weight: 79.6 kg Body Mass Index (BMI) 24.2 Finger Stick Blood Glucose 195 Intake & Output: Intake and Output for Last 24 Hours 11/20/20 11/21/20 11/22/20 23:59 23:59 23:59 Intake Total 2124.78 / 2364.78 1700 / 1940 480 / 480 Output Total 350 / 350 700 / 700 Balance 1774.78 / 2014.78 1000 / 1240 480 / 480 Lab / Micro Data Result Diagrams: 11/22/20 05:50 11/22/20 05:50 Labs: Laboratory Results - last 24 hr 11/21/20 11/21/20 11/21/20 10:53 12:30 16:35 WBC RBC Hgb Hct MCV MCH MCHC RDW Std Deviation RDW Coeff of Maggie Plt Count MPV Immature Gran % (Auto) Neut % (Auto) Lymph % (Auto) [place] % (Auto) Eos % (Auto) Baso % (Auto) Absolute Neuts (auto) Absolute Lymphs (auto) Nucleated RBC % Differential Comment Sodium 129 L Potassium 5.2 H Chloride 94 L Carbon Dioxide 28.0 Anion Gap 7 BUN 44 H Creatinine 1.49 H Estim Creat Clear Calc 45.27 Est GFR (MDRD) Af Amer 60 Est GFR (MDRD) Non-Af 50 L BUN/Creatinine Ratio 29.5 H Glucose 194 H Calcium 8.8 POC Glucose 196 H 219 H 11/21/20 11/22/20 11/22/20 21:14 05:50 05:50 WBC 10.7 RBC 3.97 L Hgb 11.5 L Hct 36.7 L MCV 92.4 MCH 29.0 MCHC 31.3 L RDW Std Deviation 52.7 H RDW Coeff of Maggie 15.4 H Plt Count 245 MPV 11.1 Immature Gran % (Auto) 1.600 H Neut % (Auto) 88.0 H Lymph % (Auto) 5.1 L [place] % (Auto) 5.2 Eos % (Auto) 0.0 Baso % (Auto) 0.1 Absolute Neuts (auto) 9.4 H Absolute Lymphs (auto) 0.54 L Nucleated RBC % 0 Differential Comment SCANNED Sodium 130 L Potassium 5.1 Chloride 93 L Carbon Dioxide 31.0 Anion Gap 6 BUN 45 H Creatinine 1.40 H Estim Creat Clear Calc 48.18 Est GFR (MDRD) Af Amer 65 Est GFR (MDRD) Non-Af 53 L BUN/Creatinine Ratio 32.1 H Glucose 169 H Calcium 8.6 POC Glucose 193 H 11/22/20 06:38 WBC RBC Hgb Hct MCV MCH MCHC RDW Std Deviation RDW Coeff of Maggie Plt Count MPV Immature Gran % (Auto) Neut % (Auto) Lymph % (Auto) [place] % (Auto) Eos % (Auto) Baso % (Auto) Absolute Neuts (auto) Absolute Lymphs (auto) Nucleated RBC % Differential Comment Sodium Potassium Chloride Carbon Dioxide Anion Gap BUN Creatinine Estim Creat Clear Calc Est GFR (MDRD) Af Amer Est GFR (MDRD) Non-Af BUN/Creatinine Ratio Glucose Calcium POC Glucose 178 H Micro: Microbiology 11/20/20 05:30 Sputum, Expectorated/Coughed Gram Stain - Final 11/20/20 05:30 Sputum, Expectorated/Coughed Respiratory Culture - Preliminary Appears to be normal respiratory zhang. Further studies to follow. 11/17/20 19:05 Blood Culture (Wb) #2 - Anticubital Left Blood Culture - Preliminary No growth in 48 hours. 11/17/20 19:50 Blood Culture (Wb) - Anticubital Left Blood Culture - Preliminary No growth in 48 hours. 11/18/20 13:10 Urine, Clean Catch Legionella Antigen - Final 11/18/20 13:10 Urine, Clean Catch Streptococcus pneumoniae Antigen (M - Final 11/17/20 22:45 Mucosa - Nasopharyngeal Respiratory Panel (PCR) - Final 11/17/20 19:20 Nasal Secretion SARS-CoV-2 Antigen (Rapid) - Final Physical Exam Const alert, oriented x3 and no apparent distress Constitutional Narrative: No conversational dyspnea, but does appear less anxious General Appearance: cooperative, well developed, in distress and frail; Negative for ill appearing HEENT normocephalic, head/scalp atraumatic and moist oral mucous membranes Eyes PERRL, EOMs intact bilaterally and conjunctivae normal Neck full ROM and no lymphadenopathy Resp Effort and Inspection: able to speak in complete sentences and prolonged expiratory phase; Negative for uses accessory muscles Auscultation: diminished lung sounds; Negative for rales, rhonchi or wheezes Cardio regular rate, regular rhythm, S1 normal heart sound, S2 normal heart sound, no murmurs, no rub and no gallops GI normal to inspection, nondistended, normoactive bowel sounds Extremity no clubbing, cyanosis or edema Skin no rashes or lesions noted Skin Narrative: Dermal atrophy noted Neuro oriented x3 and CN's II-XII intact bilaterally Psych cooperative Speech: normal speech Assessment & Plan Assessment/Plan (1) Shock: Status: Acute Code(s): R57.9 - Shock, unspecified (2) Pulmonary embolism: Status: Acute Code(s): I26.99 - Other pulmonary embolism without acute cor pulmonale Qualifiers: Pulmonary embolism type: single subsegmental (without acute cor pulmonale) Qualified Code(s): I26.93 - Single subsegmental pulmonary embolism without acute cor pulmonale (3) Acute respiratory failure with hypoxia: Status: Acute Code(s): J96.01 - Acute respiratory failure with hypoxia (4) Atherosclerosis of coronary artery bypass graft without angina pectoris: Status: Chronic Code(s): I25.810 - Atherosclerosis of coronary artery bypass graft(s) without angina pectoris Qualifiers: [place] vs. transplanted heart: [place] heart Qualified Code(s): I25.810 - Atherosclerosis of coronary artery bypass graft(s) without angina pectoris (5) ARIADNA (obstructive sleep apnea): Status: Chronic Code(s): G47.33 - Obstructive sleep apnea (adult) (pediatric) (6) COPD (chronic obstructive pulmonary disease): Status: Chronic Code(s): J44.9 - Chronic obstructive pulmonary disease, unspecified Qualifiers: COPD type: chronic bronchitis Chronic bronchitis type: mixed simple and mucopurulent Qualified Code(s): J41.8 - Mixed simple and mucopurulent chronic bronchitis (7) Chronic back pain: Status: Chronic Code(s): M54.9 - Dorsalgia, unspecified; G89.29 - Other chronic pain Qualifiers: Back pain location: low back pain Back pain laterality: midline Sciatica presence: without sciatica Qualified Code(s): M54.5 - Low back pain; G89.29 - Other chronic pain (8) Gout: Status: Chronic Code(s): M10.9 - Gout, unspecified Qualifiers: Gout site: unspecified site Gout etiology: unspecified cause Chronicity: chronic Presence of tophus: without tophus Qualified Code(s): M1A.9XX0 - Chronic gout, unspecified, without tophus (tophi) (9) Nicotine dependence: Status: Chronic Code(s): F17.200 - Nicotine dependence, unspecified, uncomplicated Qualifiers: Nicotine product type: cigarettes Substance use status: unspecified nicotine-induced disorder Qualified Code(s): F17.219 - Nicotine dependence, cigarettes, with unspecified nicotine-induced disorders (10) Benign essential hypertension: Status: Chronic Code(s): I10 - Essential (primary) hypertension (11) Hyperlipidemia: Status: Chronic Code(s): E78.5 - Hyperlipidemia, unspecified Qualifiers: Hyperlipidemia type: unspecified Qualified Code(s): E78.5 - Hyperlipidemia, unspecified (12) Gastroesophageal reflux disease: Status: Chronic Code(s): K21.9 - Gastro-esophageal reflux disease without esophagitis Qualifiers: Esophagitis presence: esophagitis presence not specified Qualified Code(s): K21.9 - Gastro-esophageal reflux disease without esophagitis (13) Type 2 diabetes mellitus: Status: Chronic Code(s): E11.9 - Type 2 diabetes mellitus without complications Qualifiers: Diabetes mellitus complication status: with other specified complication Diabetes mellitus [facility] insulin use: without assistant terminal manager use Qualified Code(s): E11.69 - Type 2 diabetes mellitus with other specified complication Plan: RECOMMENDATIONS: 1. Wean supplemental oxygen to maintain saturations at or above 90%. 2. Monitor off antimicrobials 3. Transition to 5-day prednisone burst 4. Minimize fluids. 5. Continue midodrine at current dosing 6. Hold on electrolyte repletion. Likely not necessary to address hyperkalemia 7. Continue telemetry 8. Okay to continue with 10 a inhibitor 9. Walking oximetry prior to discharge IMPRESSIONS: 1. Acute hypoxemic respiratory failure/history of COPD/pulmonary emboli The patient's presenting respiratory failure is likely multi factorial in etiology with acute PE, possible decompensated heart failure and community- acquired pneumonia contributing. Accordingly, the patient will be continued on a 10 a inhibitor for the newly diagnosed lobar and segmental PE noted on CTA chest. Patient still requiring/requesting multiple aerosols. Unclear if this is related to anxiety as he did not have wheezing on my exam. Will complete a 5-day burst of prednisone. Patient should have a walking oximetry prior to discharge. Anticipate lifelong anticoagulation given comorbidities 2. Shock Resolved. Unclear if this is strictly distributive shock in the setting of possible pneumonia versus cardiogenic in etiology. Patient with continued pressor requirements. Clinical suspicion for an element of cardiogenic shock as patient does have a severely depressed EF. Repeat echocardiogram shows decrease in EF to 10%. Unclear if this is secondary to inability to deal with PE versus progression of disease. Patient appears to have responded to midodrine therapy. Continue anticoagulation for pulmonary emboli. 3. Hypokalemia Electrolyte repletion as ordered. Recheck levels in the morning. Clinical suspicion for elevated potassium secondary to repletion. Will monitor with telemetry and repeat BMP in the a.m. 4. History of ischemic cardiomyopathy/systolic heart failure The patient does have a known history of coronary artery disease and did present with an elevated troponin and a BNP greater than 4000. However, the patient's current hemodynamic status would preclude the use of aggressive diuretics. Appreciate cardiology recommendations 5. Chronic tobacco dependency Patient appears to be precontemplative for smoking cessation at this time. Nicotine replacement has been initiated in the hospital. Patient follows with Dr. Pop as an outpatient. 6. History of gout/diabetes mellitus/hypothyroidism/chronic back pain/GERD/hypertension/hyperlipidemia Complicates care, management, recovery and prognosis. Continue to hold antihypertensives. Inpatient E&M: 25297 Subs Hosp L2
--- NOTE | 2020-11-22 09:49 | CASEMGMT ---
DENYS called [facility] and left a voice mail requesting a return call regarding referral. Alyssa Corona AUDIOPROSTHOLOGIST ELIZABETH
--- NOTE | 2020-11-22 10:09 | PN.CARD_ITS ---
Subjective Subjective: The patient states he feels somewhat better today. He believes his breathing is somewhat improved. He states he feels he can walk to the bathroom and back without his oxygen therapy without becoming short of breath or dyspneic. Objective Data Objective Data Vital Signs: Vital Signs Temp Pulse Resp BP Pulse Ox 97.6 F L 88 19 H 93/60 99 11/22/20 09:04 11/22/20 10:00 11/22/20 10:00 11/22/20 09:04 11/22/20 09:04 Oxygen Flow Rate (L/min) 3 Oxygen Delivery Method Nasal Cannula Weight: 175 lb 7.807 oz Body Mass Index (BMI) 24.2 Finger Stick Blood Glucose 195 Intake & Output: Intake and Output for Last 24 Hours 11/20/20 11/21/20 11/22/20 23:59 23:59 23:59 Intake Total 2124.78 / 2364.78 1700 / 1940 480 / 480 Output Total 350 / 350 700 / 700 Balance 1774.78 / 2014.78 1000 / 1240 480 / 480 Lab / Micro Data Result Diagrams: 11/22/20 05:50 11/22/20 05:50 Labs: Laboratory Results - last 24 hr 11/21/20 11/21/20 11/21/20 10:53 12:30 16:35 WBC RBC Hgb Hct MCV MCH MCHC RDW Std Deviation RDW Coeff of Maggie Plt Count MPV Immature Gran % (Auto) Neut % (Auto) Lymph % (Auto) [place] % (Auto) Eos % (Auto) Baso % (Auto) Absolute Neuts (auto) Absolute Lymphs (auto) Nucleated RBC % Differential Comment Sodium 129 L Potassium 5.2 H Chloride 94 L Carbon Dioxide 28.0 Anion Gap 7 BUN 44 H Creatinine 1.49 H Estim Creat Clear Calc 45.27 Est GFR (MDRD) Af Amer 60 Est GFR (MDRD) Non-Af 50 L BUN/Creatinine Ratio 29.5 H Glucose 194 H Calcium 8.8 POC Glucose 196 H 219 H 11/21/20 11/22/20 11/22/20 21:14 05:50 05:50 WBC 10.7 RBC 3.97 L Hgb 11.5 L Hct 36.7 L MCV 92.4 MCH 29.0 MCHC 31.3 L RDW Std Deviation 52.7 H RDW Coeff of Maggie 15.4 H Plt Count 245 MPV 11.1 Immature Gran % (Auto) 1.600 H Neut % (Auto) 88.0 H Lymph % (Auto) 5.1 L [place] % (Auto) 5.2 Eos % (Auto) 0.0 Baso % (Auto) 0.1 Absolute Neuts (auto) 9.4 H Absolute Lymphs (auto) 0.54 L Nucleated RBC % 0 Differential Comment SCANNED Sodium 130 L Potassium 5.1 Chloride 93 L Carbon Dioxide 31.0 Anion Gap 6 BUN 45 H Creatinine 1.40 H Estim Creat Clear Calc 48.18 Est GFR (MDRD) Af Amer 65 Est GFR (MDRD) Non-Af 53 L BUN/Creatinine Ratio 32.1 H Glucose 169 H Calcium 8.6 POC Glucose 193 H 11/22/20 06:38 WBC RBC Hgb Hct MCV MCH MCHC RDW Std Deviation RDW Coeff of Maggie Plt Count MPV Immature Gran % (Auto) Neut % (Auto) Lymph % (Auto) [place] % (Auto) Eos % (Auto) Baso % (Auto) Absolute Neuts (auto) Absolute Lymphs (auto) Nucleated RBC % Differential Comment Sodium Potassium Chloride Carbon Dioxide Anion Gap BUN Creatinine Estim Creat Clear Calc Est GFR (MDRD) Af Amer Est GFR (MDRD) Non-Af BUN/Creatinine Ratio Glucose Calcium POC Glucose 178 H Micro: Microbiology 11/20/20 05:30 Sputum, Expectorated/Coughed Gram Stain - Final 11/20/20 05:30 Sputum, Expectorated/Coughed Respiratory Culture - Preliminary Appears to be normal respiratory zhang. Further studies to follow. 11/17/20 19:05 Blood Culture (Wb) #2 - Anticubital Left Blood Culture - Preliminary No growth in 48 hours. 11/17/20 19:50 Blood Culture (Wb) - Anticubital Left Blood Culture - Preliminary No growth in 48 hours. 11/18/20 13:10 Urine, Clean Catch Legionella Antigen - Final 11/18/20 13:10 Urine, Clean Catch Streptococcus pneumoniae Antigen (M - Final 11/17/20 22:45 Mucosa - Nasopharyngeal Respiratory Panel (PCR) - Final 11/17/20 19:20 Nasal Secretion SARS-CoV-2 Antigen (Rapid) - Final Physical Exam Const alert and oriented x3 Orientation / Consciousness: awake HEENT head/scalp atraumatic Eyes PERRL and EOMs intact bilaterally Neck full ROM and supple Resp normal respiratory effort and clear to auscultation bilaterally Cardio regular rate, regular rhythm, S1 normal heart sound and S2 normal heart sound GI normal to inspection, nondistended, normoactive bowel sounds Extremity General Extremity: edema Psych mental status grossly normal Assessment & Plan Assessment/Plan (1) CAD (coronary artery disease): Status: Chronic Code(s): I25.10 - Atherosclerotic heart disease of [place] coronary artery without angina pectoris Qualifiers: Coronary Disease-Associated Artery/Lesion type: unspecified vessel or lesion type [place] vs. transplanted heart: [place] heart Plan: The patient will continue risk factor evaluation care as deemed appropriate. The patient has undergone extensive noninvasive and invasive evaluation in the past. He has been evaluated locally and at [facility]. At [facility]-coupled with their colleagues at [facility]-he has been deemed not a candidate for any further intervention/procedures. (2) Stented coronary artery: Status: Chronic Plan: He does have a history of underlying CAD and is undergone multiple PCI procedures. At the present he will continue medical management. (3) H/O coronary artery bypass surgery: Status: Chronic Code(s): Z95.1 - Presence of aortocoronary bypass graft Plan: He has a history of underlying CABG. He is undergone noninvasive and invasive evaluation in the past. He has had multiple percutaneous interventions of his SVG graft to his OM system. At the present time he will continue medical management. (4) Ischemic cardiomyopathy: Status: Chronic Code(s): I25.5 - Ischemic cardiomyopathy Plan: He does have an ischemic mediated cardiomyopathy. His recent echocardiogram demonstrates his left ventricular systolic function to be diminished with an estimated LVEF of 10%. He will continue medical therapy. He does have an ICD in place. (5) Chronic systolic (congestive) heart failure: Status: Chronic Code(s): I50.22 - Chronic systolic (congestive) heart failure Plan: He does have chronic systolic CHF. At the present time he will continue medical management and support as best as possible. Hopefully his blood pressure will allow future adjustment of medications includi ng the use of diuretic therapy as needed. (6) Presence of automatic implantable cardioverter-defibrillator: Status: Chronic Code(s): Z95.810 - Presence of automatic (implantable) cardiac defibrillator Plan: He does have an ICD in place. It has been monitored in the past and has been thought to be functioning appropriately. (7) Hyperlipidemia: Status: Chronic Code(s): E78.5 - Hyperlipidemia, unspecified Qualifiers: Hyperlipidemia type: unspecified Qualified Code(s): E78.5 - Hyperlipidemia, unspecified Plan: He will continue medical therapy. (8) Benign essential hypertension: Status: Chronic Code(s): I10 - Essential (primary) hypertension Plan: His blood pressure has been low. He was placed on medical therapy with midodrine. He has been able to be weaned off his IV vasopressor and remain on midodrine to assist with supporting his blood pressure. He is now in the PCU. Addt'l Comments The patient's case was discussed and reviewed with the patient. At the present time he will continue conservative medical management. He has been made aware that based upon his low blood pressure there may be limits on his medical therapy. He will continue O2 support as needed. He is enrolled in palliative care and may eventually need hospice care. This note was generated with [employer] dictation software. It may contain incorrect words, spelling, and punctuation that were not noted in checking the note before signing.
[2020-11-22] MEDS: Polyethylene Glycol 3350 17 GM PACKET PO (11:43)
[2020-11-22 12:45] LABS: Bedside Glucose 249 mg/dL (70-110)
--- NOTE | 2020-11-22 12:55 | CASEMGMT ---
DENYS faxed updated OT notes to [facility]. DENYS still has not been able to reach anyone at [facility] to let me know if they will accept patient or not. Alyssa Corona HELMINTHOLOGY TEACHER ELIZABETH
[2020-11-22] MEDS: Albuterol 2.5 MG/3 ML VIAL.NEB. INHALATION (13:01)
--- NOTE | 2020-11-22 13:19 | CASEMGMT ---
Pt is [facility], pt is active with [facility].
--- NOTE | 2020-11-22 13:53 | CASEMGMT ---
SW called [facility] and spoke with [facility]. She said they are not able to accept patient as they cannot manage his needs. SSW also faxed a referral to [facility] as this was their second choice. DENYS also talked with Sera at [facility] regarding referral. SW let patient know this information. SW will let his step daughter know when she arrives. Alyssa Corona INDUSTRIAL CONTROLLER ELIZABETH
--- NOTE | 2020-11-22 14:25 | CASEMGMT ---
DENYS spoke with patient's step daughter. SW let her know [facility] declined patient stating they cannot manage his care. DENYS told her SW did send a referral to [facility] and SW will hopefully hear before the end of the day. SW told her SW will let them know as soon as SW hears something. SW did let her know there is always the possibility that insurance could deny him correction level of care and recommend home with home health. She said there is no way he can go home. DENYS told her that we just need to take it 1 step at a time. It will all work out. Alyssa Corona SPRUE KNOCKER ELIZABETH
--- NOTE | 2020-11-22 14:47 | CASEMGMT ---
DENYS received a call from Sera at [facility] and they can accept patient. She will start the pre-cert. DENYS notified patient and his step daughter. DENYS told them that now we have to wait on insurance to approve. DENYS will let them know as soon as DENYS hears something. Plan: d/c to [facility] pending insurance approval. Alyssa JOHNSON
--- NOTE | 2020-11-22 15:08 | PCM.PN.HOSP ---
Subjective Subjective: Complains of pain feet. Burning sensation. He feels it is his gout flaring up. Breathing better today. [place] something break loose and he breathed better. Objective Data Objective Data Vital Signs: Vital Signs Temp Pulse Resp BP Pulse Ox 36.4 C L 98 21 H 93/60 93 11/22/20 09:04 11/22/20 14:59 11/22/20 13:02 11/22/20 09:04 11/22/20 11:55 Oxygen Flow Rate (L/min) 3 Oxygen Delivery Method Room Air Weight: 79.6 kg Body Mass Index (BMI) 24.2 Finger Stick Blood Glucose 195 Intake & Output: Intake and Output for Last 24 Hours 11/20/20 11/21/20 11/22/20 23:59 23:59 23:59 Intake Total 2124.78 / 2364.78 1700 / 1940 840 / 840 Output Total 350 / 350 700 / 700 Balance 1774.78 / 2014.78 1000 / 1240 840 / 840 Lab / Micro Data Result Diagrams: 11/22/20 05:50 11/22/20 05:50 Labs: Laboratory Results - last 24 hr 11/21/20 11/21/20 11/22/20 16:35 21:14 05:50 WBC RBC Hgb Hct MCV MCH MCHC RDW Std Deviation RDW Coeff of Maggie Plt Count MPV Immature Gran % (Auto) Neut % (Auto) Lymph % (Auto) [place] % (Auto) Eos % (Auto) Baso % (Auto) Absolute Neuts (auto) Absolute Lymphs (auto) Nucleated RBC % Differential Comment Sodium 130 L Potassium 5.1 Chloride 93 L Carbon Dioxide 31.0 Anion Gap 6 BUN 45 H Creatinine 1.40 H Estim Creat Clear Calc 48.18 Est GFR (MDRD) Af Amer 65 Est GFR (MDRD) Non-Af 53 L BUN/Creatinine Ratio 32.1 H Glucose 169 H Calcium 8.6 POC Glucose 219 H 193 H 11/22/20 11/22/20 11/22/20 05:50 06:38 11:43 WBC 10.7 RBC 3.97 L Hgb 11.5 L Hct 36.7 L MCV 92.4 MCH 29.0 MCHC 31.3 L RDW Std Deviation 52.7 H RDW Coeff of Maggie 15.4 H Plt Count 245 MPV 11.1 Immature Gran % (Auto) 1.600 H Neut % (Auto) 88.0 H Lymph % (Auto) 5.1 L [place] % (Auto) 5.2 Eos % (Auto) 0.0 Baso % (Auto) 0.1 Absolute Neuts (auto) 9.4 H Absolute Lymphs (auto) 0.54 L Nucleated RBC % 0 Differential Comment SCANNED Sodium Potassium Chloride Carbon Dioxide Anion Gap BUN Creatinine Estim Creat Clear Calc Est GFR (MDRD) Af Amer Est GFR (MDRD) Non-Af BUN/Creatinine Ratio Glucose Calcium POC Glucose 178 H 249 H Micro: Microbiology 11/20/20 05:30 Sputum, Expectorated/Coughed Gram Stain - Final 11/20/20 05:30 Sputum, Expectorated/Coughed Respiratory Culture - Final 11/17/20 19:05 Blood Culture (Wb) #2 - Anticubital Left Blood Culture - Preliminary No growth in 48 hours. 11/17/20 19:50 Blood Culture (Wb) - Anticubital Left Blood Culture - Preliminary No growth in 48 hours. 11/18/20 13:10 Urine, Clean Catch Legionella Antigen - Final 11/18/20 13:10 Urine, Clean Catch Streptococcus pneumoniae Antigen (M - Final 11/17/20 22:45 Mucosa - Nasopharyngeal Respiratory Panel (PCR) - Final 11/17/20 19:20 Nasal Secretion SARS-CoV-2 Antigen (Rapid) - Final Physical Exam Const alert Constitutional Narrative: up in bed. no respiratory distress. no coversational dyspnea. HEENT Head and Scalp: normocephalic Neck no lymphadenopathy Resp normal respiratory effort and clear to auscultation bilaterally Resp Narrative: bibasilar crackles Cardio regular rate, regular rhythm, S1 normal heart sound and S2 normal heart sound GI normal to inspection, nondistended, normoactive bowel sounds and non-tender Extremity normal to inspection and no clubbing, cyanosis or edema Extremity Narrative: no podagra Neuro Sensorium / Orientation: awake and alert Assessment & Plan Assessment/Plan (1) Acute and chronic respiratory failure with hypoxia: Status: Chronic Code(s): J96.21 - Acute and chronic respiratory failure with hypoxia (2) Pulmonary embolism: Status: Acute Code(s): I26.99 - Other pulmonary embolism without acute cor pulmonale Qualifiers: Pulmonary embolism type: single subsegmental (without acute cor pulmonale) Qualified Code(s): I26.93 - Single subsegmental pulmonary embolism without acute cor pulmonale (3) Pneumonia: Status: Acute Code(s): J18.9 - Pneumonia, unspecified organism (4) Shock: Status: Acute Code(s): R57.9 - Shock, unspecified (5) COPD exacerbation: Status: Chronic Code(s): J44.1 - Chronic obstructive pulmonary disease with (acute) exacerbation Plan: Not candidate for further cardiac intervention. Continue levofloxacin through the . Continue apixaban Prednisone through the Continue midodrine Medical mgmt for CAD DW patient about palliation of symptoms. Explained it will not correct any medical condition, but to lesson his symptoms. Continue palliative care. Not hospice appropriate at this time. Add lorazepam PRN for dyspnea. Inpatient E&M: 04448 Subs Hosp L2
[2020-11-22 16:55] LABS: Bedside Glucose 157 mg/dL (70-110)
[2020-11-22] MEDS: LORazepam 0.5 MG Tablet PO (17:08)
[2020-11-22] MEDS: Bisacodyl 5 MG Tablet 10 MG PO (17:08)
[2020-11-22 17:10] LABS: Anion Gap 5 (5-15); BUN 47 mg/dL (7-18); BUN/Creat Ratio 35.1 RATIO (10-20); Calcium,Total 8.7 mg/dL (8.5-10.1); Chloride 93 mmol/L (98-107); Creatinine, Serum 1.34 mg/dL (0.70-1.30); EST Glomerular Filtration Rate 56 mL/min (>60); Est Glom Filt Rate - Afr Amer 68 mL/min (>60); Estimated Creatinine Clearance 50.34 ml/min; Glucose 156 mg/dL (74-106); Potassium 5.7 mmol/L (3.5-5.1); Sodium Level 131 mmol/L (136-145)
[2020-11-22] MEDS: 0.9% Saline Lock 10 ML Syringe IV ×4 (17:44→22:43)
[2020-11-22 18:48] LABS: Anion Gap 4 (5-15); BUN 49 mg/dL (7-18); BUN/Creat Ratio 36.8 RATIO (10-20); Calcium,Total 8.5 mg/dL (8.5-10.1); Chloride 93 mmol/L (98-107); Creatinine, Serum 1.33 mg/dL (0.70-1.30); EST Glomerular Filtration Rate 57 mL/min (>60); Est Glom Filt Rate - Afr Amer 68 mL/min (>60); Estimated Creatinine Clearance 50.71 ml/min; Glucose 153 mg/dL (74-106); Potassium 5.6 mmol/L (3.5-5.1); Sodium Level 130 mmol/L (136-145)
[2020-11-22] MEDS: Ondansetron 4 MG/2 ML Vial IV (19:35)
[2020-11-22] MEDS: Rosuvastatin 20 MG Tablet 40 MG PO (20:32)
[2020-11-22 21:06] LABS: Bedside Glucose 178 mg/dL (70-110)
[2020-11-22] MEDS: levoFLOXacin IV 750 MG/150 ML BAG 100 MG IV (21:16)
[2020-11-22 21:52] LABS: Anion Gap 6 (5-15); BUN 53 mg/dL (7-18); BUN/Creat Ratio 34.2 RATIO (10-20); Calcium,Total 8.7 mg/dL (8.5-10.1); Chloride 92 mmol/L (98-107); Creatinine, Serum 1.55 mg/dL (0.70-1.30); EST Glomerular Filtration Rate 47 mL/min (>60); Est Glom Filt Rate - Afr Amer 57 mL/min (>60); Estimated Creatinine Clearance 43.52 ml/min; Glucose 161 mg/dL (74-106); Potassium 6.4 mmol/L (3.5-5.1); Sodium Level 129 mmol/L (136-145)
--- NOTE | 2020-11-22 22:20 | EKG12_ITS ---
Test Reason : ABNORMAL LABS Blood Pressure : / mmHG Vent. Rate : 097 BPM Atrial Rate : 097 BPM P-R Int : 166 ms QRS Dur : 150 ms QT Int : 416 ms P-R-T Axes : 061 030 119 degrees QTc Int : 528 ms Normal sinus rhythm Indeterminate axis Left bundle branch block Abnormal ECG Confirmed by BERYL LUNDBERG, MICHELLE ([id number]), production editor COREY BRYANT ([id number]) on 11/26/2020 12:33:17 PM Referred By: PEDRITO Confirmed By:MICHELLE CORDOBA MD
[2020-11-22] MEDS: Dextrose 50%-Water 25 GM/50 ML DISP.SYRIN IV (22:43)
[2020-11-22] MEDS: Sodium Polystyrene Sulfonate 15 GM/60 ML UDC 30 GM PO (22:43)
[2020-11-22] MEDS: Insulin Lispro 10 UNIT in Syringe 0 ML 6 UNIT IV (22:43)
[2020-11-22] MEDS: Polyethylene Glycol 3350 17 GM PACKET 34 GM PO (22:43)
[2020-11-23] VITALS (18 sets, daily range): BP systolic 92–103; BP diastolic 61–74; PULSE 83–100; RESP 16–20; TEMP 36.2–36.8; O2SAT 98–100
[2020-11-23] MEDS: Polyethylene Glycol 3350 17 GM PACKET 34 GM PO (01:15)
[2020-11-23] MEDS: 0.9% Saline Lock 10 ML Syringe IV ×4 (01:15→06:52)
[2020-11-23] MEDS: proCHLORPERazine 10 MG/2 ML Vial 5 MG IV (01:23)
[2020-11-23 01:39] LABS: Anion Gap 3 (5-15); BUN 53 mg/dL (7-18); BUN/Creat Ratio 36.1 RATIO (10-20); Calcium,Total 8.4 mg/dL (8.5-10.1); Chloride 94 mmol/L (98-107); Creatinine, Serum 1.47 mg/dL (0.70-1.30); EST Glomerular Filtration Rate 50 mL/min (>60); Est Glom Filt Rate - Afr Amer 61 mL/min (>60); Estimated Creatinine Clearance 45.88 ml/min; Glucose 141 mg/dL (74-106); Potassium 5.2 mmol/L (3.5-5.1); Sodium Level 132 mmol/L (136-145)
[2020-11-23] MEDS: Ipratropium/Albuterol Sulfate 3 ML AMPUL.NEB INHALATION ×6 (01:52→22:22)
[2020-11-23 03:40] LABS: Anion Gap 6 (5-15); BUN 50 mg/dL (7-18); Calcium,Total 8.3 mg/dL (8.5-10.1); Chloride 93 mmol/L (98-107); Creatinine, Serum 1.43 mg/dL (0.70-1.30); EST Glomerular Filtration Rate 52 mL/min (>60); Est Glom Filt Rate - Afr Amer 63 mL/min (>60); Estimated Creatinine Clearance 47.17 ml/min; Glucose 129 mg/dL (74-106); Potassium 5.4 mmol/L (3.5-5.1); Sodium Level 133 mmol/L (136-145)
[2020-11-23] MEDS: Levothyroxine 25 MCG TABLET PO (06:32)
[2020-11-23 06:41] LABS: Bedside Glucose 130 mg/dL (70-110)
[2020-11-23 06:58] LABS: Absolute Lymphocyte Count 0.78 X10^3/uL (0.83-4.51); Absolute Neutrophil Count 10.8 X10^3/uL (2.0-7.7); Basophil# 0.03 X10^3/uL; Basophil% 0.2 % (0-1); Hematocrit 36.4 % (40-54); Hemoglobin 11.5 g/dL (13.0-16.5); Lymphocyte # 0.78 X10^3/ul (0.83-4.51); Lymphocyte % 6.2 % (19-41); Mean Corp Hgb Conc 31.6 g/dL (32-36); Mean Corpuscular Hgb 28.8 pg (27.0-32.0); Mean Corpuscular Volume 91.2 fL (80-94); Mean Platelet Vol. 11.3 fl (6.2-12.0); Monocyte# 0.68 X10^3/uL; Monocyte% 5.4 % (0-10); NRBC Flagged by Analyzer 0.7 % (0-5); Neutrophil # 10.76 X10^3/uL (2.7-7.7); Neutrophil % 86.1 % (47-70); Platelet Count 231 K/mm3 (150-450); RBC Distribution Width CV 15.5 % (11.6-14.6); RBC Distribution Width SD 51.1 fl (35.1-43.9); Red Blood Count 3.99 M/mm3 (4.6-6.2); White Blood Count 12.5 K/mm3 (4.4-11.0)
[2020-11-23 07:12] LABS: Anion Gap 5 (5-15); BUN 46 mg/dL (7-18); BUN/Creat Ratio 32.4 RATIO (10-20); Calcium,Total 8.3 mg/dL (8.5-10.1); Chloride 93 mmol/L (98-107); Creatinine, Serum 1.42 mg/dL (0.70-1.30); EST Glomerular Filtration Rate 52 mL/min (>60); Est Glom Filt Rate - Afr Amer 63 mL/min (>60); Glucose 117 mg/dL (74-106); Potassium 5.6 mmol/L (3.5-5.1); Sodium Level 133 mmol/L (136-145)
--- NOTE | 2020-11-23 08:47 | PCM.PN.INT ---
Subjective Subjective: Patient did well overnight. No hemodynamic instability has been reported. Patient has been on his baseline nasal cannula. Patient states his dyspnea is improved, but he is having significant muscular weakness with attempts at ambulation. No falls have been reported. Patient is denying any syncopal or presyncopal symptoms. Objective Data Objective Data Vital Signs: Vital Signs Temp Pulse Resp BP Pulse Ox 36.2 C L 99 20 H 92/61 98 11/23/20 02:50 11/23/20 07:01 11/23/20 07:01 11/23/20 02:50 11/23/20 07:01 Oxygen Flow Rate (L/min) 3 Oxygen Delivery Method Nasal Cannula Weight: 78.3 kg Body Mass Index (BMI) 24.2 Finger Stick Blood Glucose 195 Intake & Output: Intake and Output for Last 24 Hours 11/21/20 11/22/20 11/23/20 23:59 23:59 23:59 Intake Total 1700 / 1940 1230 / 1650 520 / 520 Output Total 700 / 700 200 / 200 Balance 1000 / 1240 1230 / 1450 320 / 320 Lab / Micro Data Result Diagrams: 11/23/20 06:45 11/23/20 06:45 Labs: Laboratory Results - last 24 hr 11/22/20 11/22/20 11/22/20 11:43 15:55 16:50 WBC RBC Hgb Hct MCV MCH MCHC RDW Std Deviation RDW Coeff of Maggie Plt Count MPV Immature Gran % (Auto) Neut % (Auto) Lymph % (Auto) [place] % (Auto) Eos % (Auto) Baso % (Auto) Absolute Neuts (auto) Absolute Lymphs (auto) Nucleated RBC % Sodium 131 L Potassium 5.7 H Chloride 93 L Carbon Dioxide 33.0 H Anion Gap 5 BUN 47 H Creatinine 1.34 H Estim Creat Clear Calc 50.34 Est GFR (MDRD) Af Amer 68 Est GFR (MDRD) Non-Af 56 L BUN/Creatinine Ratio 35.1 H Glucose 156 H Calcium 8.7 POC Glucose 249 H 157 H 11/22/20 11/22/20 11/22/20 17:50 20:30 21:28 WBC RBC Hgb Hct MCV MCH MCHC RDW Std Deviation RDW Coeff of Maggie Plt Count MPV Immature Gran % (Auto) Neut % (Auto) Lymph % (Auto) [place] % (Auto) Eos % (Auto) Baso % (Auto) Absolute Neuts (auto) Absolute Lymphs (auto) Nucleated RBC % Sodium 130 L 129 L Potassium 5.6 H 6.4 H* Chloride 93 L 92 L Carbon Dioxide 33.0 H 31.0 Anion Gap 4 L 6 BUN 49 H 53 H Creatinine 1.33 H 1.55 H Estim Creat Clear Calc 50.71 43.52 Est GFR (MDRD) Af Amer 68 57 L Est GFR (MDRD) Non-Af 57 L 47 L BUN/Creatinine Ratio 36.8 H 34.2 H Glucose 153 H 161 H Calcium 8.5 8.7 POC Glucose 178 H 11/23/20 11/23/20 11/23/20 01:05 03:05 06:32 WBC RBC Hgb Hct MCV MCH MCHC RDW Std Deviation RDW Coeff of Maggie Plt Count MPV Immature Gran % (Auto) Neut % (Auto) Lymph % (Auto) [place] % (Auto) Eos % (Auto) Baso % (Auto) Absolute Neuts (auto) Absolute Lymphs (auto) Nucleated RBC % Sodium 132 L 133 L Potassium 5.2 H 5.4 H Chloride 94 L 93 L Carbon Dioxide 35.0 H 34.0 H Anion Gap 3 L 6 BUN 53 H 50 H Creatinine 1.47 H 1.43 H Estim Creat Clear Calc 45.88 47.17 Est GFR (MDRD) Af Amer 61 63 Est GFR (MDRD) Non-Af 50 L 52 L BUN/Creatinine Ratio 36.1 H 35.0 H Glucose 141 H 129 H Calcium 8.4 L 8.3 L POC Glucose 130 H 11/23/20 11/23/20 06:45 06:45 WBC 12.5 H RBC 3.99 L Hgb 11.5 L Hct 36.4 L MCV 91.2 MCH 28.8 MCHC 31.6 L RDW Std Deviation 51.1 H RDW Coeff of Maggie 15.5 H Plt Count 231 MPV 11.3 Immature Gran % (Auto) 2.100 H Neut % (Auto) 86.1 H Lymph % (Auto) 6.2 L [place] % (Auto) 5.4 Eos % (Auto) 0.0 Baso % (Auto) 0.2 Absolute Neuts (auto) 10.8 H Absolute Lymphs (auto) 0.78 L Nucleated RBC % 0.7 Sodium 133 L Potassium 5.6 H Chloride 93 L Carbon Dioxide 35.0 H Anion Gap 5 BUN 46 H Creatinine 1.42 H Estim Creat Clear Calc 47.50 Est GFR (MDRD) Af Amer 63 Est GFR (MDRD) Non-Af 52 L BUN/Creatinine Ratio 32.4 H Glucose 117 H Calcium 8.3 L POC Glucose Micro: Microbiology 11/17/20 19:05 Blood Culture (Wb) #2 - Anticubital Left Blood Culture - Final No growth in 5 days. 11/17/20 19:50 Blood Culture (Wb) - Anticubital Left Blood Culture - Final No growth in 5 days. 11/20/20 05:30 Sputum, Expectorated/Coughed Gram Stain - Final 11/20/20 05:30 Sputum, Expectorated/Coughed Respiratory Culture - Final 11/18/20 13:10 Urine, Clean Catch Legionella Antigen - Final 11/18/20 13:10 Urine, Clean Catch Streptococcus pneumoniae Antigen (M - Final 11/17/20 22:45 Mucosa - Nasopharyngeal Respiratory Panel (PCR) - Final 11/17/20 19:20 Nasal Secretion SARS-CoV-2 Antigen (Rapid) - Final Physical Exam Const alert, oriented x3 and no apparent distress Constitutional Narrative: No conversational dyspnea. Not as anxious as previous evaluations General Appearance: cooperative, well developed, in distress and frail; Negative for ill appearing HEENT normocephalic, head/scalp atraumatic and moist oral mucous membranes Eyes PERRL, EOMs intact bilaterally and conjunctivae normal Neck full ROM and no lymphadenopathy Resp Effort and Inspection: able to speak in complete sentences and prolonged expiratory phase; Negative for uses accessory muscles Auscultation: diminished lung sounds; Negative for rales, rhonchi or wheezes Cardio regular rate, regular rhythm, S1 normal heart sound, S2 normal heart sound, no murmurs, no rub and no gallops GI normal to inspection, nondistended, normoactive bowel sounds Extremity no clubbing, cyanosis or edema Skin no rashes or lesions noted Skin Narrative: Dermal atrophy noted Neuro oriented x3 and CN's II-XII intact bilaterally Psych cooperative Speech: normal speech Assessment & Plan Assessment/Plan (1) Shock: Status: Resolved Code(s): R57.9 - Shock, unspecified (2) Pulmonary embolism: Status: Acute Code(s): I26.99 - Other pulmonary embolism without acute cor pulmonale Qualifiers: Pulmonary embolism type: single subsegmental (without acute cor pulmonale) Qualified Code(s): I26.93 - Single subsegmental pulmonary embolism without acute cor pulmonale (3) Acute respiratory failure with hypoxia: Status: Resolved Code(s): J96.01 - Acute respiratory failure with hypoxia (4) Atherosclerosis of coronary artery bypass graft without angina pectoris: Status: Chronic Code(s): I25.810 - Atherosclerosis of coronary artery bypass graft(s) without angina pectoris Qualifiers: [place] vs. transplanted heart: [place] heart Qualified Code(s): I25.810 - Atherosclerosis of coronary artery bypass graft(s) without angina pectoris (5) ARIADNA (obstructive sleep apnea): Status: Chronic Code(s): G47.33 - Obstructive sleep apnea (adult) (pediatric) (6) COPD (chronic obstructive pulmonary disease): Status: Chronic Code(s): J44.9 - Chronic obstructive pulmonary disease, unspecified Qualifiers: COPD type: chronic bronchitis Chronic bronchitis type: mixed simple and mucopurulent Qualified Code(s): J41.8 - Mixed simple and mucopurulent chronic bronchitis (7) Chronic back pain: Status: Chronic Code(s): M54.9 - Dorsalgia, unspecified; G89.29 - Other chronic pain Qualifiers: Back pain location: low back pain Back pain laterality: midline Sciatica presence: without sciatica Qualified Code(s): M54.5 - Low back pain; G89.29 - Other chronic pain (8) Gout: Status: Chronic Code(s): M10.9 - Gout, unspecified Qualifiers: Gout site: unspecified site Gout etiology: unspecified cause Chronicity: chronic Presence of tophus: without tophus Qualified Code(s): M1A.9XX0 - Chronic gout, unspecified, without tophus (tophi) (9) Nicotine dependence: Status: Chronic Code(s): F17.200 - Nicotine dependence, unspecified, uncomplicated Qualifiers: Nicotine product type: cigarettes Substance use status: unspecified nicotine-induced disorder Qualified Code(s): F17.219 - Nicotine dependence, cigarettes, with unspecified nicotine-induced disorders (10) Benign essential hypertension: Status: Chronic Code(s): I10 - Essential (primary) hypertension (11) Hyperlipidemia: Status: Deleted Code(s): E78.5 - Hyperlipidemia, unspecified Qualifiers: Hyperlipidemia type: unspecified Qualified Code(s): E78.5 - Hyperlipidemia, unspecified (12) Gastroesophageal reflux disease: Status: Chronic Code(s): K21.9 - Gastro-esophageal reflux disease without esophagitis Qualifiers: Esophagitis presence: esophagitis presence not specified Qualified Code(s): K21.9 - Gastro-esophageal reflux disease without esophagitis (13) Type 2 diabetes mellitus: Status: Deleted Code(s): E11.9 - Type 2 diabetes mellitus without complications Qualifiers: Diabetes mellitus complication status: with other specified complication 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 Wean supplemental oxygen to maintain saturations at or above 90%. 2. Monitor off antimicrobials 3. Complete to 5-day prednisone burst 4. Wean midodrine as an outpatient 5. Walking oximetry prior to discharge 6. Hold on electrolyte repletion. Likely not necessary to address hyperkalemia 7. Continue telemetry 8. Okay to continue with 10 a inhibitor 9. Okay to discharge from a pulmonary perspective IMPRESSIONS: 1. Acute hypoxemic respiratory failure/history of COPD/pulmonary emboli The patient's presenting respiratory failure is likely multi factorial in etiology with acute PE, possible decompensated heart failure and community-acquired pneumonia contributing. Accordingly, the patient will be continued on a 10 a inhibitor for the newly diagnosed lobar and segmental PE noted on CTA chest. Patient still requiring/requesting multiple aerosols. Unclear if this is related to anxiety as he did not have wheezing on my exam. Will complete a 5-day burst of prednisone. Patient should have a walking oximetry prior to discharge. Anticipate lifelong anticoagulation given comorbidities 2. Shock Resolved. Unclear if this is strictly distributive shock in the setting of possible pneumonia versus cardiogenic in etiology. Patient with continued pressor requirements. Clinical suspicion for an element of cardiogenic shock as patient does have a severely depressed EF. Repeat echocardiogram shows decrease in EF to 10%. Unclear if this is secondary to inability to deal with PE versus progression of disease. Patient appears to have responded to midodrine therapy. Continue anticoagulation for pulmonary emboli. Defer to cardiology on if echo needs to be repeated as an outpatient 3. Hypokalemia Electrolyte repletion if indicated. Recheck levels in the morning. Clinical suspicion for elevated potassium secondary to repletion. Will monitor with telemetry. No EKG changes noted. 4. History of ischemic cardiomyopathy/systolic heart failure The patient does have a known history of coronary artery disease and did present with an elevated troponin and a BNP greater than 4000. However, the patient's current hemodynamic status would preclude the use of aggressive diuretics. Appreciate cardiology recommendations 5. Chronic tobacco dependency Patient appears to be precontemplative for smoking cessation at this time. Nicotine replacement has been initiated in the hospital. Patient follows with Dr. Pop as an outpatient. 6. History of gout/diabetes mellitus/hypothyroidism/chronic back pain/GERD/hypertension/hyperlipidemia Complicates care, management, recovery and prognosis. Continue to hold antihypertensives. Inpatient E&M: [id number] Subs Hosp L2
[2020-11-23] MEDS: predniSONE 20 MG Tablet 40 MG PO (08:58)
[2020-11-23] MEDS: Aspirin E.C. 81 MG Tablet PO (08:58)
[2020-11-23] MEDS: Ranolazine 500 MG Tablet PO ×2 (08:58→21:40)
[2020-11-23] MEDS: levETIRAcetam 500 MG Tablet PO (08:58)
[2020-11-23] MEDS: Allopurinol 300 MG Tablet PO (08:58)
[2020-11-23] MEDS: Midodrine HCl 5 MG Tablet 10 MG PO ×2 (08:58→11:04)
[2020-11-23] MEDS: Pantoprazole Sodium 40 MG Tablet PO (08:58)
[2020-11-23] MEDS: APIXABAN 5 MG TABLET 10 MG PO ×2 (08:58→21:40)
[2020-11-23] MEDS: oxyCODONE 5 MG Tablet 10 MG PO ×2 (09:05→16:40)
--- NOTE | 2020-11-23 09:25 | PCM.PN.CARD ---
Subjective Subjective: The patient noted when he was up and ambulating being more short of breath and dyspneic. During that time his O2 saturation was reported to have declined less than 90%. He denies ongoing chest discomfort. He states at rest, with his oxygen supplement, he believes his breathing is comfortable. Objective Data Vital Signs: Vital Signs Temp Pulse Resp BP Pulse Ox 98.0 F 90 18 94/62 100 11/23/20 08:50 11/23/20 08:50 11/23/20 08:50 11/23/20 08:50 11/23/20 08:50 Oxygen Flow Rate (L/min) 3 Oxygen Delivery Method Nasal Cannula Weight: 172 lb 9.951 oz Body Mass Index (BMI) 24.2 Finger Stick Blood Glucose 195 Intake & Output: Intake and Output for Last 24 Hours 11/21/20 11/22/20 11/23/20 23:59 23:59 23:59 Intake Total 1700 / 1940 1230 / 1650 520 / 520 Output Total 700 / 700 200 / 200 Balance 1000 / 1240 1230 / 1450 320 / 320 Lab / Micro Data Result Diagrams: 11/23/20 06:45 11/23/20 06:45 Labs: Laboratory Results - last 24 hr 11/22/20 11/22/20 11/22/20 11:43 15:55 16:50 WBC RBC Hgb Hct MCV MCH MCHC RDW Std Deviation RDW Coeff of Maggie Plt Count MPV Immature Gran % (Auto) Neut % (Auto) Lymph % (Auto) [place] % (Auto) Eos % (Auto) Baso % (Auto) Absolute Neuts (auto) Absolute Lymphs (auto) Nucleated RBC % Sodium 131 L Potassium 5.7 H Chloride 93 L Carbon Dioxide 33.0 H Anion Gap 5 BUN 47 H Creatinine 1.34 H Estim Creat Clear Calc 50.34 Est GFR (MDRD) Af Amer 68 Est GFR (MDRD) Non-Af 56 L BUN/Creatinine Ratio 35.1 H Glucose 156 H Calcium 8.7 POC Glucose 249 H 157 H 11/22/20 11/22/20 11/22/20 17:50 20:30 21:28 WBC RBC Hgb Hct MCV MCH MCHC RDW Std Deviation RDW Coeff of Maggie Plt Count MPV Immature Gran % (Auto) Neut % (Auto) Lymph % (Auto) [place] % (Auto) Eos % (Auto) Baso % (Auto) Absolute Neuts (auto) Absolute Lymphs (auto) Nucleated RBC % Sodium 130 L 129 L Potassium 5.6 H 6.4 H* Chloride 93 L 92 L Carbon Dioxide 33.0 H 31.0 Anion Gap 4 L 6 BUN 49 H 53 H Creatinine 1.33 H 1.55 H Estim Creat Clear Calc 50.71 43.52 Est GFR (MDRD) Af Amer 68 57 L Est GFR (MDRD) Non-Af 57 L 47 L BUN/Creatinine Ratio 36.8 H 34.2 H Glucose 153 H 161 H Calcium 8.5 8.7 POC Glucose 178 H 11/23/20 11/23/20 11/23/20 01:05 03:05 06:32 WBC RBC Hgb Hct MCV MCH MCHC RDW Std Deviation RDW Coeff of Maggie Plt Count MPV Immature Gran % (Auto) Neut % (Auto) Lymph % (Auto) [place] % (Auto) Eos % (Auto) Baso % (Auto) Absolute Neuts (auto) Absolute Lymphs (auto) Nucleated RBC % Sodium 132 L 133 L Potassium 5.2 H 5.4 H Chloride 94 L 93 L Carbon Dioxide 35.0 H 34.0 H Anion Gap 3 L 6 BUN 53 H 50 H Creatinine 1.47 H 1.43 H Estim Creat Clear Calc 45.88 47.17 Est GFR (MDRD) Af Amer 61 63 Est GFR (MDRD) Non-Af 50 L 52 L BUN/Creatinine Ratio 36.1 H 35.0 H Glucose 141 H 129 H Calcium 8.4 L 8.3 L POC Glucose 130 H 11/23/20 11/23/20 06:45 06:45 WBC 12.5 H RBC 3.99 L Hgb 11.5 L Hct 36.4 L MCV 91.2 MCH 28.8 MCHC 31.6 L RDW Std Deviation 51.1 H RDW Coeff of Maggie 15.5 H Plt Count 231 MPV 11.3 Immature Gran % (Auto) 2.100 H Neut % (Auto) 86.1 H Lymph % (Auto) 6.2 L [place] % (Auto) 5.4 Eos % (Auto) 0.0 Baso % (Auto) 0.2 Absolute Neuts (auto) 10.8 H Absolute Lymphs (auto) 0.78 L Nucleated RBC % 0.7 Sodium 133 L Potassium 5.6 H Chloride 93 L Carbon Dioxide 35.0 H Anion Gap 5 BUN 46 H Creatinine 1.42 H Estim Creat Clear Calc 47.50 Est GFR (MDRD) Af Amer 63 Est GFR (MDRD) Non-Af 52 L BUN/Creatinine Ratio 32.4 H Glucose 117 H Calcium 8.3 L POC Glucose Micro: Microbiology 11/17/20 19:05 Blood Culture (Wb) #2 - Anticubital Left Blood Culture - Final No growth in 5 days. 11/17/20 19:50 Blood Culture (Wb) - Anticubital Left Blood Culture - Final No growth in 5 days. 11/20/20 05:30 Sputum, Expectorated/Coughed Gram Stain - Final 11/20/20 05:30 Sputum, Expectorated/Coughed Respiratory Culture - Final 11/18/20 13:10 Urine, Clean Catch Legionella Antigen - Final 11/18/20 13:10 Urine, Clean Catch Streptococcus pneumoniae Antigen (M - Final 11/17/20 22:45 Mucosa - Nasopharyngeal Respiratory Panel (PCR) - Final 11/17/20 19:20 Nasal Secretion SARS-CoV-2 Antigen (Rapid) - Final Cardiology Labs/Tests 11/22/20 15:55: Sodium 131 L, Potassium 5.7 H, Chloride 93 L, Carbon Dioxide 33.0 H, Anion Gap 5, BUN 47 H, Creatinine 1.34 H, Est GFR (MDRD) Af Amer 68, Est GFR (MDRD) Non-Af 56 L, BUN/Creatinine Ratio 35.1 H, Glucose 156 H, Calcium 8.7 11/22/20 17:50: Sodium 130 L, Potassium 5.6 H, Chloride 93 L, Carbon Dioxide 33.0 H, Anion Gap 4 L, BUN 49 H, Creatinine 1.33 H, Est GFR (MDRD) Af Amer 68, Est GFR (MDRD) Non-Af 57 L, BUN/Creatinine Ratio 36.8 H, Glucose 153 H, Calcium 8.5 11/22/20 21:28: Sodium 129 L, Potassium 6.4 H*, Chloride 92 L, Carbon Dioxide 31.0, Anion Gap 6, BUN 53 H, Creatinine 1.55 H, Est GFR (MDRD) Af Amer 57 L, Est GFR (MDRD) Non-Af 47 L, BUN/Creatinine Ratio 34.2 H, Glucose 161 H, Calcium 8.7 11/23/20 01:05: Sodium 132 L, Potassium 5.2 H, Chloride 94 L, Carbon Dioxide 35.0 H, Anion Gap 3 L, BUN 53 H, Creatinine 1.47 H, Est GFR (MDRD) Af Amer 61, Est GFR (MDRD) Non-Af 50 L, BUN/Creatinine Ratio 36.1 H, Glucose 141 H, Calcium 8.4 L 11/23/20 03:05: Sodium 133 L, Potassium 5.4 H, Chloride 93 L, Carbon Dioxide 34.0 H, Anion Gap 6, BUN 50 H, Creatinine 1.43 H, Est GFR (MDRD) Af Amer 63, Est GFR (MDRD) Non-Af 52 L, BUN/Creatinine Ratio 35.0 H, Glucose 129 H, Calcium 8.3 L 11/23/20 06:45: WBC 12.5 H, RBC 3.99 L, Hgb 11.5 L, Hct 36.4 L, MCV 91.2, MCH 28.8, MCHC 31.6 L, Plt Count 231, MPV 11.3, Immature Gran % (Auto) 2.100 H, Neut % (Auto) 86.1 H, Lymph % (Auto) 6.2 L, [place] % (Auto) 5.4, Eos % (Auto) 0.0, Baso % (Auto) 0.2, Absolute Neuts (auto) 10.8 H, Nucleated RBC % 0.7 11/23/20 06:45: Sodium 133 L, Potassium 5.6 H, Chloride 93 L, Carbon Dioxide 35.0 H, Anion Gap 5, BUN 46 H, Creatinine 1.42 H, Est GFR (MDRD) Af Amer 63, Est GFR (MDRD) Non-Af 52 L, BUN/Creatinine Ratio 32.4 H, Glucose 117 H, Calcium 8.3 L Rhythm: Sinus rhythm Physical Exam Const alert and oriented x3 Orientation / Consciousness: awake HEENT head/scalp atraumatic Eyes PERRL and EOMs intact bilaterally Neck full ROM and supple Resp normal respiratory effort Auscultation: rales bilateral base Cardio regular rate, regular rhythm, S1 normal heart sound and S2 normal heart sound GI normal to inspection, nondistended, normoactive bowel sounds Extremity General Extremity: edema Psych mental status grossly normal Assessment & Plan Assessment/Plan (1) CAD (coronary artery disease): Status: Chronic Code(s): I25.10 - Atherosclerotic heart disease of [place] coronary artery without angina pectoris Qualifiers: Coronary Disease-Associated Artery/Lesion type: unspecified vessel or lesion type [place] vs. transplanted heart: [place] heart Plan: The patient will continue risk factor evaluation care as deemed appropriate. The patient has undergone extensive noninvasive and invasive evaluation in the past. He has been evaluated locally and at [facility]. At [facility]-coupled with their colleagues at [facility]-he has been deemed not a candidate for any further intervention/procedures. (2) Stented coronary artery: Status: Chronic Plan: He does have a history of underlying CAD and is undergone multiple PCI procedures. At the present he will continue medical management. (3) H/O coronary artery bypass surgery: Status: Chronic Code(s): Z95.1 - Presence of aortocoronary bypass graft Plan: He has a history of underlying CABG. He is undergone noninvasive and invasive evaluation in the past. He has had multiple percutaneous interventions of his SVG graft to his OM system. At the present time he will continue medical management. (4) Ischemic cardiomyopathy: Status: Chronic Code(s): I25.5 - Ischemic cardiomyopathy Plan: He does have an ischemic mediated cardiomyopathy. His recent echocardiogram demonstrates his left ventricular systolic function to be diminished with an estimated LVEF of 10%. He will continue medical therapy. He does have an ICD in place. (5) Chronic systolic (congestive) heart failure: Status: Chronic Code(s): I50.22 - Chronic systolic (congestive) heart failure Plan: He does have chronic systolic CHF. An attempt will be made to initiate low-dose diuretic therapy to assist with his volume status based upon his physical examination and his symptoms. (6) Presence of automatic implantable cardioverter-defibrillator: Status: Chronic Code(s): Z95.810 - Presence of automatic (implantable) cardiac defibrillator Plan: He does have an ICD in place. It has been monitored in the past and has been thought to be functioning appropriately. (7) Hyperlipidemia: Status: Deleted Code(s): E78.5 - Hyperlipidemia, unspecified Qualifiers: Hyperlipidemia type: unspecified Qualified Code(s): E78.5 - Hyperlipidemia, unspecified Plan: He will continue medical therapy. (8) Benign essential hypertension: Status: Chronic Code(s): I10 - Essential (primary) hypertension Plan: His blood pressure has been low. He was placed on medical therapy with midodrine. He has been able to be weaned off his IV vasopressor and remain on midodrine to assist with supporting his blood pressure. He is now in the PCU. Addt'l Comments The above was discussed and reviewed with patient. He was agreeable to this approach. This note was generated with [employer] dictation software. It may contain incorrect words, spelling, and punctuation that were not noted in checking the note before signing.
[2020-11-23] MEDS: Furosemide 20 MG Tablet PO (10:59)
[2020-11-23] MEDS: Insulin Lispro 100 UNIT/ML INSULN.PEN SC ×3 (11:03→21:39)
--- NOTE | 2020-11-23 11:32 | CASEMGMT ---
DENYS faxed updated PT/OT to [facility] per insurance's request. Alyssa Corona [employer] OPERATOR ELIZABETH
[2020-11-23 11:35] LABS: Bedside Glucose 238 mg/dL (70-110)
[2020-11-23] MEDS: Sodium Polystyrene Sulfonate 15 GM/60 ML UDC PO (11:56)
[2020-11-23] MEDS: Polyethylene Glycol 3350 17 GM PACKET PO (11:56)
[2020-11-23] MEDS: Magnesium Citrate 300 ML 150 ML PO (11:56)
[2020-11-23] MEDS: Albuterol 2.5 MG/3 ML VIAL.NEB. INHALATION (13:36)
--- NOTE | 2020-11-23 16:08 | PN.HOSP_ITS ---
Subjective Subjective: Constipated for 4 weeks Intermittently short of breath. Objective Data Objective Data Vital Signs: Vital Signs Temp Pulse Resp BP Pulse Ox 36.8 C 91 18 103/74 100 11/23/20 14:50 11/23/20 15:27 11/23/20 15:27 11/23/20 14:50 11/23/20 14:55 Oxygen Flow Rate (L/min) 2 Oxygen Delivery Method Nasal Cannula Weight: 78.3 kg Body Mass Index (BMI) 24.2 Finger Stick Blood Glucose 195 Intake & Output: Intake and Output for Last 24 Hours 11/21/20 11/22/20 11/23/20 23:59 23:59 23:59 Intake Total 1700 / 1940 1230 / 1650 920 / 920 Output Total 700 / 700 200 / 200 Balance 1000 / 1240 1230 / 1450 720 / 720 Lab / Micro Data Result Diagrams: 11/23/20 06:45 11/23/20 06:45 Labs: Laboratory Results - last 24 hr 11/22/20 11/22/20 11/22/20 15:55 16:50 17:50 WBC RBC Hgb Hct MCV MCH MCHC RDW Std Deviation RDW Coeff of Maggie Plt Count MPV Immature Gran % (Auto) Neut % (Auto) Lymph % (Auto) [place] % (Auto) Eos % (Auto) Baso % (Auto) Absolute Neuts (auto) Absolute Lymphs (auto) Nucleated RBC % Sodium 131 L 130 L Potassium 5.7 H 5.6 H Chloride 93 L 93 L Carbon Dioxide 33.0 H 33.0 H Anion Gap 5 4 L BUN 47 H 49 H Creatinine 1.34 H 1.33 H Estim Creat Clear Calc 50.34 50.71 Est GFR (MDRD) Af Amer 68 68 Est GFR (MDRD) Non-Af 56 L 57 L BUN/Creatinine Ratio 35.1 H 36.8 H Glucose 156 H 153 H Calcium 8.7 8.5 POC Glucose 157 H 11/22/20 11/22/20 11/23/20 20:30 21:28 01:05 WBC RBC Hgb Hct MCV MCH MCHC RDW Std Deviation RDW Coeff of Maggie Plt Count MPV Immature Gran % (Auto) Neut % (Auto) Lymph % (Auto) [place] % (Auto) Eos % (Auto) Baso % (Auto) Absolute Neuts (auto) Absolute Lymphs (auto) Nucleated RBC % Sodium 129 L 132 L Potassium 6.4 H* 5.2 H Chloride 92 L 94 L Carbon Dioxide 31.0 35.0 H Anion Gap 6 3 L BUN 53 H 53 H Creatinine 1.55 H 1.47 H Estim Creat Clear Calc 43.52 45.88 Est GFR (MDRD) Af Amer 57 L 61 Est GFR (MDRD) Non-Af 47 L 50 L BUN/Creatinine Ratio 34.2 H 36.1 H Glucose 161 H 141 H Calcium 8.7 8.4 L POC Glucose 178 H 11/23/20 11/23/20 11/23/20 03:05 06:32 06:45 WBC 12.5 H RBC 3.99 L Hgb 11.5 L Hct 36.4 L MCV 91.2 MCH 28.8 MCHC 31.6 L RDW Std Deviation 51.1 H RDW Coeff of Maggie 15.5 H Plt Count 231 MPV 11.3 Immature Gran % (Auto) 2.100 H Neut % (Auto) 86.1 H Lymph % (Auto) 6.2 L [place] % (Auto) 5.4 Eos % (Auto) 0.0 Baso % (Auto) 0.2 Absolute Neuts (auto) 10.8 H Absolute Lymphs (auto) 0.78 L Nucleated RBC % 0.7 Sodium 133 L Potassium 5.4 H Chloride 93 L Carbon Dioxide 34.0 H Anion Gap 6 BUN 50 H Creatinine 1.43 H Estim Creat Clear Calc 47.17 Est GFR (MDRD) Af Amer 63 Est GFR (MDRD) Non-Af 52 L BUN/Creatinine Ratio 35.0 H Glucose 129 H Calcium 8.3 L POC Glucose 130 H 11/23/20 11/23/20 06:45 11:02 WBC RBC Hgb Hct MCV MCH MCHC RDW Std Deviation RDW Coeff of Maggie Plt Count MPV Immature Gran % (Auto) Neut % (Auto) Lymph % (Auto) [place] % (Auto) Eos % (Auto) Baso % (Auto) Absolute Neuts (auto) Absolute Lymphs (auto) Nucleated RBC % Sodium 133 L Potassium 5.6 H Chloride 93 L Carbon Dioxide 35.0 H Anion Gap 5 BUN 46 H Creatinine 1.42 H Estim Creat Clear Calc 47.50 Est GFR (MDRD) Af Amer 63 Est GFR (MDRD) Non-Af 52 L BUN/Creatinine Ratio 32.4 H Glucose 117 H Calcium 8.3 L POC Glucose 238 H Micro: Microbiology 11/17/20 19:05 Blood Culture (Wb) #2 - Anticubital Left Blood Culture - Fi nal No growth in 5 days. 11/17/20 19:50 Blood Culture (Wb) - Anticubital Left Blood Culture - Final No growth in 5 days. 11/20/20 05:30 Sputum, Expectorated/Coughed Gram Stain - Final 11/20/20 05:30 Sputum, Expectorated/Coughed Respiratory Culture - Final 11/18/20 13:10 Urine, Clean Catch Legionella Antigen - Final 11/18/20 13:10 Urine, Clean Catch Streptococcus pneumoniae Antigen (M - Final 11/17/20 22:45 Mucosa - Nasopharyngeal Respiratory Panel (PCR) - Final 11/17/20 19:20 Nasal Secretion SARS-CoV-2 Antigen (Rapid) - Final Physical Exam Const alert HEENT Head and Scalp: normocephalic Resp normal respiratory effort and clear to auscultation bilaterally Cardio regular rate, regular rhythm, S1 normal heart sound and S2 normal heart sound GI normal to inspection, nondistended, normoactive bowel sounds, non-tender and non-distended Extremity normal to inspection Skin no rashes or lesions noted Assessment & Plan Assessment/Plan (1) Acute and chronic respiratory failure with hypoxia: Status: Chronic Code(s): J96.21 - Acute and chronic respiratory failure with hypoxia (2) Pulmonary embolism: Status: Acute Code(s): I26.99 - Other pulmonary embolism without acute cor pulmonale Qualifiers: Pulmonary embolism type: single subsegmental (without acute cor pulm onale) Qualified Code(s): I26.93 - Single subsegmental pulmonary embolism without acute cor pulmonale (3) Pneumonia: Status: Acute Code(s): J18.9 - Pneumonia, unspecified organism Qualifiers: Pneumonia type: due to Pneumococcus Laterality: bilateral Lung locatio n: unspecified part of lung Qualified Code(s): J13 - Pneumonia due to Streptococcus pneumoniae (4) Shock: Status: Resolved Code(s): R57.9 - Shock, unspecified (5) COPD exacerbation: Status: Chronic Code(s): J44.1 - Chronic obstructive pulmonary disease with (acute) exacerbation (6) Hyperkalemia: Status: Acute Code(s): E87.5 - Hyperkalemia Plan: Not candidate for further cardiac intervention. Continue levofloxacin through the . Continue apixaban Prednisone through the Unclear if midodrine contributing to hyperkalemia, will decrease dosing midodrine Give kayexalate Medical mgmt for CAD DW patient about palliation of symptoms. Explained it will not correct any medical condition, but to lesson his symptoms. Continue palliative care. Not h ospice appropriate at this time. Add lorazepam PRN for dyspnea.
[2020-11-23] MEDS: Midodrine HCl 5 MG Tablet PO (16:36)
[2020-11-23 16:51] LABS: Bedside Glucose 206 mg/dL (70-110)
--- NOTE | 2020-11-23 17:06 | CASEMGMT ---
DENYS spoke with Sera at [facility] and they did get approval for patient. SW let her know patient will likely come over the weekend. SW notified RN as well as patient. SW also told patient to have his step daughter get his vaccination card and he won't have to quarantine. SW told him SW will notify his step daughter as well. Green sheet on chart. Plan: d/c to [facility] under skilled level of care on a convalescent stay. Alyssa JOHNSON
--- NOTE | 2020-11-23 17:44 | CASEMGMT ---
SW called patient's step daughter and left her a voice mail letting her know patient was approved to go to [facility]. SW let her know he will likely go over the weekend. DENYS told her she needs to get patient's COVID vaccine card that way he does not have to quarantine for 14 days. DENYS told her that if the visitor is vaccinated they can visit patient as much as they want. They do need to notify [facility] they are coming in for a visit. DENYS did tell her that non vaccinated visitors will need to schedule visits and will have to visit in a common area. SW left SW's number if she had any questions. Plan:d/c to [facility] under skilled level of care. Patient was approved by insurance. Alyssa JOHNSON
[2020-11-23] MEDS: Rosuvastatin 20 MG Tablet 40 MG PO (21:40)
[2020-11-23 22:20] LABS: Bedside Glucose 240 mg/dL (70-110)
[2020-11-24] VITALS (12 sets, daily range): BP systolic 96–108; BP diastolic 69–78; PULSE 67–108; RESP 16–22; TEMP 36.6–36.8; O2SAT 92–100
[2020-11-24] MEDS: oxyCODONE 5 MG Tablet 10 MG PO ×2 (01:27→11:26)
[2020-11-24] MEDS: Ipratropium/Albuterol Sulfate 3 ML AMPUL.NEB INHALATION ×4 (02:29→14:07)
[2020-11-24 04:13] LABS: Absolute Lymphocyte Count 0.86 X10^3/uL (0.83-4.51); Absolute Neutrophil Count 11.9 X10^3/uL (2.0-7.7); Basophil# 0.04 X10^3/uL; Basophil% 0.3 % (0-1); Eosinophil# 0.01 X10^3/uL; Eosinophils% 0.1 % (0-5); Hematocrit 34.9 % (40-54); Hemoglobin 11.3 g/dL (13.0-16.5); Lymphocyte # 0.86 X10^3/ul (0.83-4.51); Lymphocyte % 6.2 % (19-41); Mean Corp Hgb Conc 32.4 g/dL (32-36); Mean Corpuscular Hgb 29.5 pg (27.0-32.0); Mean Corpuscular Volume 91.1 fL (80-94); Mean Platelet Vol. 11.1 fl (6.2-12.0); Monocyte# 0.81 X10^3/uL; Monocyte% 5.8 % (0-10); NRBC Flagged by Analyzer 1.4 % (0-5); Neutrophil % 85.5 % (47-70); Platelet Count 218 K/mm3 (150-450); RBC Distribution Width CV 15.6 % (11.6-14.6); RBC Distribution Width SD 51.5 fl (35.1-43.9); Red Blood Count 3.83 M/mm3 (4.6-6.2); White Blood Count 13.9 K/mm3 (4.4-11.0)
[2020-11-24 04:28] LABS: Anion Gap 4 (5-15); BUN 43 mg/dL (7-18); BUN/Creat Ratio 32.8 RATIO (10-20); Calcium,Total 8.2 mg/dL (8.5-10.1); Chloride 92 mmol/L (98-107); Creatinine, Serum 1.31 mg/dL (0.70-1.30); EST Glomerular Filtration Rate 58 mL/min (>60); Est Glom Filt Rate - Afr Amer 70 mL/min (>60); Estimated Creatinine Clearance 51.49 ml/min; Glucose 155 mg/dL (74-106); Magnesium 2.8 mg/dL (1.6-2.6); Potassium 4.7 mmol/L (3.5-5.1); Sodium Level 132 mmol/L (136-145)
[2020-11-24] MEDS: Levothyroxine 25 MCG TABLET PO (06:35)
[2020-11-24] MEDS: Insulin Lispro 100 UNIT/ML INSULN.PEN SC ×2 (06:35→11:21)
[2020-11-24 06:45] LABS: Bedside Glucose 214 mg/dL (70-110)
[2020-11-24] MEDS: Aspirin E.C. 81 MG Tablet PO (08:46)
[2020-11-24] MEDS: predniSONE 20 MG Tablet 40 MG PO (08:47)
[2020-11-24] MEDS: Midodrine HCl 5 MG Tablet PO ×2 (08:47→11:21)
[2020-11-24] MEDS: Ranolazine 500 MG Tablet PO (08:48)
[2020-11-24] MEDS: Allopurinol 300 MG Tablet PO (08:48)
[2020-11-24] MEDS: Pantoprazole Sodium 40 MG Tablet PO (08:48)
[2020-11-24] MEDS: APIXABAN 5 MG TABLET 10 MG PO (08:48)
[2020-11-24] MEDS: Furosemide 20 MG Tablet PO (09:21)
[2020-11-24] MEDS: levETIRAcetam 500 MG Tablet PO (09:22)
--- NOTE | 2020-11-24 09:37 | PCM.PN.INT ---
Subjective Subjective: Patient overall did well overnight. Patient did report that he was not short of breath, but appeared to be more labored on my evaluation. Patient had just finished breakfast and states this was normal for him. Patient has been able to ambulate with the assistance of nursing. Objective Data Objective Data Vital Signs: Vital Signs Temp Pulse Resp BP Pulse Ox 36.8 C 67 22 H 98/69 92 11/24/20 08:44 11/24/20 09:25 11/24/20 09:25 11/24/20 08:44 11/24/20 08:44 Oxygen Flow Rate (L/min) 2 Oxygen Delivery Method Nasal Cannula Weight: 78.3 kg Body Mass Index (BMI) 24.2 Finger Stick Blood Glucose 195 Intake & Output: Intake and Output for Last 24 Hours 11/22/20 11/23/20 11/24/20 23:59 23:59 23:59 Intake Total 1230 / 1650 1280 / 1500 220 / 220 Output Total 200 / 200 Balance 1230 / 1450 1080 / 1300 220 / 220 Lab / Micro Data Result Diagrams: 11/24/20 04:02 11/24/20 04:02 Labs: Laboratory Results - last 24 hr 11/23/20 11/23/20 11/23/20 11:02 16:34 21:36 WBC RBC Hgb Hct MCV MCH MCHC RDW Std Deviation RDW Coeff of Maggie Plt Count MPV Immature Gran % (Auto) Neut % (Auto) Lymph % (Auto) [place] % (Auto) Eos % (Auto) Baso % (Auto) Absolute Neuts (auto) Absolute Lymphs (auto) Nucleated RBC % Sodium Potassium Chloride Carbon Dioxide Anion Gap BUN Creatinine Estim Creat Clear Calc Est GFR (MDRD) Af Amer Est GFR (MDRD) Non-Af BUN/Creatinine Ratio Glucose Calcium Magnesium POC Glucose 238 H 206 H 240 H 11/24/20 11/24/20 11/24/20 04:02 04:02 04:02 WBC 13.9 H RBC 3.83 L Hgb 11.3 L Hct 34.9 L MCV 91.1 MCH 29.5 MCHC 32.4 RDW Std Deviation 51.5 H RDW Coeff of Maggie 15.6 H Plt Count 218 MPV 11.1 Immature Gran % (Auto) 2.100 H Neut % (Auto) 85.5 H Lymph % (Auto) 6.2 L [place] % (Auto) 5.8 Eos % (Auto) 0.1 Baso % (Auto) 0.3 Absolute Neuts (auto) 11.9 H Absolute Lymphs (auto) 0.86 Nucleated RBC % 1.4 Sodium 132 L Potassium 4.7 Chloride 92 L Carbon Dioxide 36.0 H Anion Gap 4 L BUN 43 H Creatinine 1.31 H Estim Creat Clear Calc 51.49 Est GFR (MDRD) Af Amer 70 Est GFR (MDRD) Non-Af 58 L BUN/Creatinine Ratio 32.8 H Glucose 155 H Calcium 8.2 L Magnesium 2.8 H POC Glucose 11/24/20 06:34 WBC RBC Hgb Hct MCV MCH MCHC RDW Std Deviation RDW Coeff of Maggie Plt Count MPV Immature Gran % (Auto) Neut % (Auto) Lymph % (Auto) [place] % (Auto) Eos % (Auto) Baso % (Auto) Absolute Neuts (auto) Absolute Lymphs (auto) Nucleated RBC % Sodium Potassium Chloride Carbon Dioxide Anion Gap BUN Creatinine Estim Creat Clear Calc Est GFR (MDRD) Af Amer Est GFR (MDRD) Non-Af BUN/Creatinine Ratio Glucose Calcium Magnesium POC Glucose 214 H Micro: Microbiology 11/17/20 19:05 Blood Culture (Wb) #2 - Anticubital Left Blood Culture - Final No growth in 5 days. 11/17/20 19:50 Blood Culture (Wb) - Anticubital Left Blood Culture - Final No growth in 5 days. 11/20/20 05:30 Sputum, Expectorated/Coughed Gram Stain - Final 11/20/20 05:30 Sputum, Expectorated/Coughed Respiratory Culture - Final 11/18/20 13:10 Urine, Clean Catch Legionella Antigen - Final 11/18/20 13:10 Urine, Clean Catch Streptococcus pneumoniae Antigen (M - Final 11/17/20 22:45 Mucosa - Nasopharyngeal Respiratory Panel (PCR) - Final 11/17/20 19:20 Nasal Secretion SARS-CoV-2 Antigen (Rapid) - Final Physical Exam Const alert, oriented x3 and no apparent distress Constitutional Narrative: No conversational dyspnea. Patient dyspneic General Appearance: cooperative, well developed, in distress and frail; Negative for ill appearing HEENT normocephalic, head/scalp atraumatic and moist oral mucous membranes Eyes PERRL, EOMs intact bilaterally and conjunctivae normal Neck full ROM and no lymphadenopathy Resp Effort and Inspection: able to speak in complete sentences and prolonged expiratory phase; Negative for uses accessory muscles Auscultation: diminished lung sounds; Negative for rales, rhonchi or wheezes Cardio regular rate, regular rhythm, S1 normal heart sound, S2 normal heart sound, no murmurs, no rub and no gallops GI normal to inspection, nondistended, normoactive bowel sounds Extremity no clubbing, cyanosis or edema Skin no rashes or lesions noted Skin Narrative: Dermal atrophy noted Neuro oriented x3 and CN's II-XII intact bilaterally Psych cooperative Speech: normal speech Assessment & Plan Assessment/Plan (1) Shock: Status: Resolved Code(s): R57.9 - Shock, unspecified (2) Pulmonary embolism: Status: Acute Code(s): I26.99 - Other pulmonary embolism without acute cor pulmonale Qualifiers: Pulmonary embolism type: single subsegmental (without acute cor pulmonale) Qualified Code(s): I26.93 - Single subsegmental pulmonary embolism without acute cor pulmonale (3) Acute respiratory failure with hypoxia: Status: Resolved Code(s): J96.01 - Acute respiratory failure with hypoxia (4) Atherosclerosis of coronary artery bypass graft without angina pectoris: Status: Chronic Code(s): I25.810 - Atherosclerosis of coronary artery bypass graft(s) without angina pectoris Qualifiers: [place] vs. transplanted heart: [place] heart Qualified Code(s): I25.810 - Atherosclerosis of coronary artery bypass graft(s) without angina pectoris (5) ARIADNA (obstructive sleep apnea): Status: Chronic Code(s): G47.33 - Obstructive sleep apnea (adult) (pediatric) (6) COPD (chronic obstructive pulmonary disease): Status: Chronic Code(s): J44.9 - Chronic obstructive pulmonary disease, unspecified Qualifiers: COPD type: chronic bronchitis Chronic bronchitis type: mixed simple and mucopurulent Qualified Code(s): J41.8 - Mixed simple and mucopurulent chronic bronchitis (7) Chronic back pain: Status: Chronic Code(s): M54.9 - Dorsalgia, unspecified; G89.29 - Other chronic pain Qualifiers: Back pain location: low back pain Back pain laterality: midline Sciatica presence: without sciatica Qualified Code(s): M54.5 - Low back pain; G89.29 - Other chronic pain (8) Gout: Status: Chronic Code(s): M10.9 - Gout, unspecified Qualifiers: Gout site: unspecified site Gout etiology: unspecified cause Chronicity: chronic Presence of tophus: without tophus Qualified Code(s): M1A.9XX0 - Chronic gout, unspecified, without tophus (tophi) (9) Nicotine dependence: Status: Chronic Code(s): F17.200 - Nicotine dependence, unspecified, uncomplicated Qualifiers: Nicotine product type: cigarettes Substance use status: unspecified nicotine-induced disorder Qualified Code(s): F17.219 - Nicotine dependence, cigarettes, with unspecified nicotine-induced disorders (10) Benign essential hypertension: Status: Chronic Code(s): I10 - Essential (primary) hypertension (11) Hyperlipidemia: Status: Deleted Code(s): E78.5 - Hyperlipidemia, unspecified Qualifiers: Hyperlipidemia type: unspecified Qualified Code(s): E78.5 - Hyperlipidemia, unspecified (12) Gastroesophageal reflux disease: Status: Chronic Code(s): K21.9 - Gastro-esophageal reflux disease without esophagitis Qualifiers: Esophagitis presence: esophagitis presence not specified Qualified Code(s): K21.9 - Gastro-esophageal reflux disease without esophagitis (13) Type 2 diabetes mellitus: Status: Deleted Code(s): E11.9 - Type 2 diabetes mellitus without complications Qualifiers: Diabetes mellitus complication status: with other specified complication Diabetes mellitus [employer]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 Wean supplemental oxygen to maintain saturations at or above 90%. 2. Monitor off antimicrobials 3. Complete to 5-day prednisone burst 4. Wean midodrine as an outpatient. No plans for changes during admission 5. Walking oximetry prior to discharge 6. Hold on electrolyte repletion. Likely not necessary to address hyperkalemia 7. Continue telemetry 8. Okay to continue with 10 a inhibitor 9. Okay to discharge from a pulmonary perspective IMPRESSIONS: 1. Acute hypoxemic respiratory failure/history of COPD/pulmonary emboli The patient's presenting respiratory failure is likely multi factorial in etiology with acute PE, possible decompensated heart failure and community-acquired pneumonia contributing. Accordingly, the patient will be continued on a 10 a inhibitor for the newly diagnosed lobar and segmental PE noted on CTA chest. Patient still requiring/requesting multiple aerosols. Unclear if this is related to anxiety as he did not have wheezing on my exam. Will complete a 5-day burst of prednisone. Patient should have a walking oximetry prior to discharge. Anticipate lifelong anticoagulation given comorbidities. Patient dyspneic this morning, but lungs were clear. No obvious aspiration noted. 2. Shock Resolved. Unclear if this is strictly distributive shock in the setting of possible pneumonia versus cardiogenic in etiology. Patient with continued pressor requirements. Clinical suspicion for an element of cardiogenic shock as patient does have a severely depressed EF. Repeat echocardiogram shows decrease in EF to 10%. Unclear if this is secondary to inability to deal with PE versus progression of disease. Patient appears to have responded to midodrine therapy. Continue anticoagulation for pulmonary emboli. Defer to cardiology on if echo needs to be repeated as an outpatient 3. Hypokalemia Electrolyte repletion if indicated. Recheck levels in the morning. Clinical suspicion for elevated potassium secondary to repletion. Will monitor with telemetry. No EKG changes noted. 4. History of ischemic cardiomyopathy/systolic heart failure The patient does have a known history of coronary artery disease and did present with an elevated troponin and a BNP greater than 4000. However, the patient's current hemodynamic status would preclude the use of aggressive diuretics. Appreciate cardiology recommendations 5. Chronic tobacco dependency Patient appears to be precontemplative for smoking cessation at this time. Nicotine replacement has been initiated in the hospital. Patient follows with Dr. Pop as an outpatient. 6. History of gout/diabetes mellitus/hypothyroidism/chronic back pain/GERD/hypertension/hyperlipidemia Complicates care, management, recovery and prognosis. Continue to hold antihypertensives. Visit Charges Inpatient E&M: 33005 Subs Hosp L2
[2020-11-24 11:31] LABS: Bedside Glucose 180 mg/dL (70-110)
--- NOTE | 2020-11-24 11:39 | TREXTCAR_ITS ---
Diet 11/18/20 11:50 Diet: Carbohydrate Controlled Food consistency:: Regular Liquid Consistency:: Regular/Thin Dietary Modifications:: Cardiac / Heart Healthy Sodium Restricted Potassium Restricted Is pt able to select menu?: Yes Problem/Diagnosis (1) Shock: Status: Resolved (2) Pulmonary embolism: Status: Acute (3) Acute respiratory failure with hypoxia: Status: Resolved (4) Atherosclerosis of coronary artery bypass graft without angina pectoris: Status: Chronic (5) ARIADNA (obstructive sleep apnea): Status: Chronic (6) COPD (chronic obstructive pulmonary disease): Status: Chronic Comment: FEV1 64% of predicted (7) Chronic back pain: Status: Chronic (8) Gout: Status: Chronic (9) Nicotine dependence: Status: Chronic (10) Benign essential hypertension: Status: Chronic (11) Hyperlipidemia: Status: Deleted (12) Gastroesophageal reflux disease: Status: Chronic (13) Type 2 diabetes mellitus: Status: Deleted Allergies/Procedures Done in Hospital Allergies chlorpromazine HCl [From Thorazine] Allergy (Severe, Verified 11/17/20 18:44) Hives PER PATIENT tramadol HCl [From Ultram] Allergy (Severe, Verified 11/17/20 18:44) Hives PER PATIENT codeine Allergy (Intermediate, Verified 11/17/20 18:44) Hives promethazine [From Phenergan] Allergy (Verified 11/17/20 18:44) confusion atorvastatin Adverse Reaction (Intermediate, Verified 11/17/20 18:44) LEG PAIN/CRAMPS LEG PAIN/CRAMPS cyclobenzaprine [From Flexeril] Adverse Reaction (Verified 11/17/20 18:44) Upset Stomach metformin Adverse Reaction (Verified 11/17/20 18:44) Upset Stomach naproxen Adverse Reaction (Verified 11/17/20 18:44) Upset Stomach Type of Care/Length of Stay Estimated LOS: Convalescent Care Less Than 30 days Type of Care Needed: Skilled Rehab Potential: Fair Prognosis: Fair Additional Orders/Day of Discharge Additional Orders: Pt is active with [facility] Palliative Care Day of Discharge: 11/24/20 Dietary and Speech Recommendations Dietitian Recommendations/Changes: Will change diet to Cardiac/CHO controlled w/ sodium and potassium-restrictions; FR as indicated. Will d/c Glucerna shake w/ medpass as pt is refusing and intake has improved. Discharge Plan Admission Admit Date/Time: 11/17/20 21:51 Attending Provider: Ravin Ortega Primary Care Provider: Juan De La Vega III Consulting Providers: Carlos Pop ; Jose Coleman Instructions Patient Instructions: ED Chest Pain, Noncardiac Discharge Orders/Prescriptions Prescriptions: New acetaminophen [Tylenol] 325 mg Tablet 650 mg PO Q6H PRN PRN (Reason: Pain Score 1-10/Temp > 100.7 F) Qty: 0 RF: 0 Eliquis 5 mg Tablet 10 mg PO BID Qty: 0 RF: 0 Cepacol Sore Throat (sara-men) 15-3.6 mg Lozenge 1 ana cristina mucous membrane Q2H PRN PRN (Reason: SORE THROAT) Qty: 0 RF: 0 guaifenesin 100 mg/5 mL Liquid 10 ml PO Q4H PRN PRN (Reason: COUGH) Qty: 0 RF: 0 furosemide 20 mg Tablet 20 mg PO DAILY Qty: 0 RF: 0 lorazepam 0.5 mg Tablet 0.5 mg PO Q4H PRN PRN (Reason: shortness of breath/anxiety) Qty: 10 RF: 0 insulin lispro [Humalog KwikPen Insulin] 100 unit/mL Insulin Pen See Protocol unit subcut ACHS Qty: 3 RF: 0 melatonin 3 mg Tablet 3 mg PO QHS PRN PRN (Reason: Insomnia) Qty: 0 RF: 0 alum-mag hydroxide-simeth [Mag-Al Plus Extra Strength] 400-400-40 mg/5 mL Suspension 30 ml PO Q6H PRN PRN (Reason: Gastric Burning) Qty: 0 RF: 0 midodrine 5 mg Tablet 5 mg PO TIDCM Qty: 0 RF: 0 oxycodone 5 mg Tablet 10 mg PO Q6H PRN PRN (Reason: Pain Score 4-10) 3 Days Qty: 12 RF: 0 prednisone 20 mg Tablet 40 mg PO DAILY@0800 Qty: 0 RF: 0 Metamucil Fiber Singles 3.4 gram Powder In Packet 1 packet PO DAILY PRN PRN (Reason: Constipation) Qty: 0 RF: 0 sennosides-docusate sodium [Stool Softener-Stimulant Laxat] 8.6-50 mg Tablet 2 tab PO BID PRN PRN (Reason: Constipation) Qty: 0 RF: 0 Continued levetiracetam 500 MG tablet 500 mg PO DAILY RF: 0 nicotine 14 MG patch 14 mg TRANSDERM. DAILY RF: 0 ipratropium-albuterol 3 ML solution for nebulization 3 ml IH Q6H PRN (Reason: SOB/WHEEZING) RF: 0 albuterol sulfate 2.5 MG/3 ML solution for nebulization 2.5 mg INHALATION Q4H PRN PRN (Reason: SOB/WHEEZING) RF: 0 levothyroxine 25 MCG tablet 25 mcg PO DAILY RF: 0 pantoprazole 40 MG tablet 40 mg PO DAILY RF: 0 allopurinol 300 MG tablet 300 mg PO DAILY RF: 0 umeclidinium-vilanterol 1 EACH blister with device 1 ea IH DAILY RF: 0 rosuvastatin 40 MG tablet 40 mg PO QHS RF: 0 ondansetron 4 MG tablet 4 mg PO Q6H PRN PRN (Reason: Nausea) Qty: 15 RF: 0 metoclopramide HCl 10 MG tablet 10 mg PO 4X/DAY PRN PRN (Reason: Nausea/Vomiting) Qty: 20 RF: 0 polyethylene glycol 3350 17 GM packet 17 gm PO QHS PRN PRN (Reason: Constipation) Qty: 5 RF: 0 polyethylene glycol 3350 [Miralax] 17 gram powder in packet 17 g PO DAILY RF: 0 aspirin [Adult Low Dose Aspirin] 81 mg tablet,delayed release (DR/EC) 81 mg PO DAILY RF: 0 ranolazine [Ranexa] 500 mg tablet extended release 12 hr 500 mg PO BID RF: 0 Discontinued nitroglycerin 0.4 MG tablet, sublingual 0.4 mg SL Q5M PRN (Reason: CHEST PAIN) RF: 0 oxycodone-acetaminophen 1 EACH tablet 1 ea PO Q6H PRN (Reason: Pain 1-10 Or Fever) RF: 0 furosemide 40 MG tablet 40 mg PO BID Qty: 10 RF: 0 lisinopril 2.5 MG tablet 2.5 mg PO DAILY RF: 0 carvedilol 3.125 mg tablet 3.125 mg PO BID RF: 0 No Action glimepiride 1 MG tablet 1 mg PO DAILY RF: 0 Referrals: Carlos Pop DO [STAFF PHYSICIAN] - Within 2 Weeks Juan De La Vega III, MD [Primary Care Provider] - In 1 Week Jose Coleman MD [STAFF PHYSICIAN] - Within 2 Weeks Disposition Patient Disposition: Alf Facility
--- NOTE | 2020-11-24 12:01 | PCM.DC.SUM ---
Providers Date of Admission: 11/17/20 Primary Care Physician: Dr. Juan De La Vega III, MD Consultations 11/17/20 22:35 Physician Consult Routine Consulting Provider: Carlos Pop Consulted Physician Type:: [employer] Operator Reason for Consult: Acute hypoxic respiratory failure, COPD exacerbation MD Notified: Yes Date Notified:: 11/17/20 Time Notified: 21:55 Method of Notification:: cortext 11/18/20 06:14 Physician Consult Routine Consulting Provider: Jose Coleman Consulted Physician Type:: CARD -[facility] Reason for Consult: Resp failure, on BIPAP, BL PE, notable cardiac hx, request per ICU MD Notified: Yes Date Notified:: 11/18/20 Time Notified: 06:15 Method of Notification:: cortext Reason For Visit: ACUTE HYPOXIC RESPIRATORY FAILURE Diagnosis Discharge Diagnosis (1) Shock: Status: Resolved Code(s): R57.9 - Shock, unspecified (2) Pulmonary embolism: Status: Acute Code(s): I26.99 - Other pulmonary embolism without acute cor pulmonale Qualifiers: Pulmonary embolism type: single subsegmental (without acute cor pulmonale) Qualified Code(s): I26.93 - Single subsegmental pulmonary embolism without acute cor pulmonale (3) Acute respiratory failure with hypoxia: Status: Resolved Code(s): J96.01 - Acute respiratory failure with hypoxia (4) Atherosclerosis of coronary artery bypass graft without angina pectoris: Status: Chronic Code(s): I25.810 - Atherosclerosis of coronary artery bypass graft(s) without angina pectoris Qualifiers: [place] vs. transplanted heart: [place] heart Qualified Code(s): I25.810 - Atherosclerosis of coronary artery bypass graft(s) without angina pectoris (5) ARIADNA (obstructive sleep apnea): Status: Chronic Code(s): G47.33 - Obstructive sleep apnea (adult) (pediatric) (6) COPD (chronic obstructive pulmonary disease): Status: Chronic Code(s): J44.9 - Chronic obstructive pulmonary disease, unspecified Qualifiers: COPD type: chronic bronchitis Chronic bronchitis type: mixed simple and mucopurulent Qualified Code(s): J41.8 - Mixed simple and mucopurulent chronic bronchitis (7) Chronic back pain: Status: Chronic Code(s): M54.9 - Dorsalgia, unspecified; G89.29 - Other chronic pain Qualifiers: Back pain laterality: midline Back pain location: low back pain Sciatica presence: without sciatica Qualified Code(s): M54.5 - Low back pain; G89.29 - Other chronic pain (8) Gout: Status: Chronic Code(s): M10.9 - Gout, unspecified Qualifiers: Chronicity: chronic Gout etiology: unspecified cause Gout site: unspecified site Presence of tophus: without tophus Qualified Code(s): M1A.9XX0 - Chronic gout, unspecified, without tophus (tophi) (9) Nicotine dependence: Status: Chronic Code(s): F17.200 - Nicotine dependence, unspecified, uncomplicated Qualifiers: Nicotine product type: cigarettes Substance use status: unspecified nicotine-induced disorder Qualified Code(s): F17.219 - Nicotine dependence, cigarettes, with unspecified nicotine-induced disorders (10) Benign essential hypertension: Status: Chronic Code(s): I10 - Essential (primary) hypertension (11) Hyperlipidemia: Status: Deleted Code(s): E78.5 - Hyperlipidemia, unspecified Qualifiers: Hyperlipidemia type: unspecified Qualified Code(s): E78.5 - Hyperlipidemia, unspecified (12) Gastroesophageal reflux disease: Status: Chronic Code(s): K21.9 - Gastro-esophageal reflux disease without esophagitis Qualifiers: Esophagitis presence: esophagitis presence not specified Qualified Code(s): K21.9 - Gastro-esophageal reflux disease without esophagitis (13) Type 2 diabetes mellitus: Status: Deleted Code(s): E11.9 - Type 2 diabetes mellitus without complications Qualifiers: Diabetes mellitus complication status: with other specified complication Diabetes mellitus supervisor intermediates insulin use: without senior care use Qualified Code(s): E11.69 - Type 2 diabetes mellitus with other specified complication Medications at Discharge Home Medications albuterol sulfate 2.5 mg INHALATION Q4H PRN PRN 09/11/20 allopurinol 300 mg PO DAILY 09/11/20 glimepiride 1 mg PO DAILY 09/11/20 ipratropium-albuterol 3 ml IH Q6H PRN 09/11/20 levetiracetam 500 mg PO DAILY 09/11/20 levothyroxine 25 mcg PO DAILY 09/11/20 nicotine 14 mg TRANSDERM. DAILY 09/11/20 pantoprazole 40 mg PO DAILY 09/11/20 umeclidinium-vilanterol 1 ea IH DAILY 09/11/20 aspirin 81 mg tablet,delayed release 81 mg PO DAILY 09/28/20 polyethylene glycol 3350 17 gram oral powder packet 17 g PO DAILY 09/28/20 ranolazine 500 mg tablet,extended release,12 hr 500 mg PO BID 09/28/20 rosuvastatin 40 mg PO QHS 09/29/20 ondansetron 4 mg PO Q6H PRN PRN #15 tablet 10/14/20 metoclopramide HCl 10 mg PO 4X/DAY PRN PRN #20 tablet 10/24/20 polyethylene glycol 3350 17 gm PO QHS PRN PRN #5 packet 10/24/20 acetaminophen [Tylenol] 650 mg PO Q6H PRN PRN #0 tab 11/24/20 alum-mag hydroxide-simeth [Mag-Al Plus Extra Strength] 30 ml PO Q6H PRN PRN #0 ml 11/24/20 apixaban [Eliquis] 10 mg PO BID #0 tab 11/24/20 benzocaine-menthol [Cepacol Sore Throat (sara-men)] 1 ana cristina MUCOUS MEMBRANE Q2H PRN PRN #0 ea 11/24/20 furosemide 20 mg PO DAILY #0 tab 11/24/20 guaifenesin 10 ml PO Q4H PRN PRN #0 ml 11/24/20 insulin lispro [Humalog KwikPen Insulin] See Protocol SUBCUT ACHS #3 ml 11/24/20 lorazepam 0.5 mg PO Q4H PRN PRN #10 tab 11/24/20 melatonin 3 mg PO QHS PRN PRN #0 tab 11/24/20 midodrine 5 mg PO TIDCM #0 tab 11/24/20 oxycodone 10 mg PO Q6H PRN PRN 3 Days #12 tab 11/24/20 prednisone 40 mg PO DAILY@0800 #0 tab 11/24/20 psyllium husk (aspartame) [Metamucil Fiber Singles] 1 packet PO DAILY PRN PRN #0 ea 11/24/20 sennosides-docusate sodium [Stool Softener-Stimulant Laxat] 2 tab PO BID PRN PRN #0 tab 11/24/20 Hospital Course Operations None Procedures 2-D Echocardiogram Summary of Care Provided Minutes Spent on Discharge: 40 Hospital Course: (1) Acute and chronic respiratory failure with hypoxia: Status: Chronic Code(s): J96.21 - Acute and chronic respiratory failure with hypoxia (2) Pulmonary embolism: Status: Acute Code(s): I26.99 - Other pulmonary embolism without acute cor pulmonale Qualifiers: Pulmonary embolism type: single subsegmental (without acute cor pulmonale) Qualified Code(s): I26.93 - Single subsegmental pulmonary embolism without acute cor pulmonale (3) Pneumonia: Status: Acute Code(s): J18.9 - Pneumonia, unspecified organism Qualifiers: Pneumonia type: due to Pneumococcus Laterality: bilateral Lung location: unspecified part of lung Qualified Code(s): J13 - Pneumonia due to Streptococcus pneumoniae (4) Shock: Status: Resolved Code(s): R57.9 - Shock, unspecified (5) COPD exacerbation: Status: Chronic Code(s): J44.1 - Chronic obstructive pulmonary disease with (acute) exacerbation (6) Hyperkalemia: Status: Acute Code(s): E87.5 - Hyperkalemia Plan: Not candidate for further cardiac intervention. Continue levofloxacin through the . Continue apixaban Prednisone through the Unclear if midodrine contributing to hyperkalemia, will decrease dosing midodrine Give kayexalate Medical mgmt for CAD DW patient about palliation of symptoms. Explained it will not correct any medical condition, but to lesson his symptoms. Continue palliative care. Not hospice appropriate at this time. Add lorazepam PRN for dyspnea. ABG / Lab / Microbiology Data Result Diagrams: 11/24/20 04:02 11/24/20 04:02 Laboratory: Laboratory Results - last 24 hr 11/23/20 11/23/20 11/24/20 16:34 21:36 04:02 WBC 13.9 H RBC 3.83 L Hgb 11.3 L Hct 34.9 L MCV 91.1 MCH 29.5 MCHC 32.4 RDW Std Deviation 51.5 H RDW Coeff of Maggie 15.6 H Plt Count 218 MPV 11.1 Immature Gran % (Auto) 2.100 H Neut % (Auto) 85.5 H Lymph % (Auto) 6.2 L [place] % (Auto) 5.8 Eos % (Auto) 0.1 Baso % (Auto) 0.3 Absolute Neuts (auto) 11.9 H Absolute Lymphs (auto) 0.86 Nucleated RBC % 1.4 Sodium Potassium Chloride Carbon Dioxide Anion Gap BUN Creatinine Estim Creat Clear Calc Est GFR (MDRD) Af Amer Est GFR (MDRD) Non-Af BUN/Creatinine Ratio Glucose Calcium Magnesium POC Glucose 206 H 240 H 11/24/20 11/24/20 11/24/20 04:02 04:02 06:34 WBC RBC Hgb Hct MCV MCH MCHC RDW Std Deviation RDW Coeff of Maggie Plt Count MPV Immature Gran % (Auto) Neut % (Auto) Lymph % (Auto) [place] % (Auto) Eos % (Auto) Baso % (Auto) Absolute Neuts (auto) Absolute Lymphs (auto) Nucleated RBC % Sodium 132 L Potassium 4.7 Chloride 92 L Carbon Dioxide 36.0 H Anion Gap 4 L BUN 43 H Creatinine 1.31 H Estim Creat Clear Calc 51.49 Est GFR (MDRD) Af Amer 70 Est GFR (MDRD) Non-Af 58 L BUN/Creatinine Ratio 32.8 H Glucose 155 H Calcium 8.2 L Magnesium 2.8 H POC Glucose 214 H 11/24/20 11:18 WBC RBC Hgb Hct MCV MCH MCHC RDW Std Deviation RDW Coeff of Maggie Plt Count MPV Immature Gran % (Auto) Neut % (Auto) Lymph % (Auto) [place] % (Auto) Eos % (Auto) Baso % (Auto) Absolute Neuts (auto) Absolute Lymphs (auto) Nucleated RBC % Sodium Potassium Chloride Carbon Dioxide Anion Gap BUN Creatinine Estim Creat Clear Calc Est GFR (MDRD) Af Amer Est GFR (MDRD) Non-Af BUN/Creatinine Ratio Glucose Calcium Magnesium POC Glucose 180 H Microbiology: Microbiology 11/17/20 19:05 Blood Culture (Wb) #2 - Anticubital Left Blood Culture - Final No growth in 5 days. 11/17/20 19:50 Blood Culture (Wb) - Anticubital Left Blood Culture - Final No growth in 5 days. 11/20/20 05:30 Sputum, Expectorated/Coughed Gram Stain - Final 11/20/20 05:30 Sputum, Expectorated/Coughed Respiratory Culture - Final 11/18/20 13:10 Urine, Clean Catch Legionella Antigen - Final 11/18/20 13:10 Urine, Clean Catch Streptococcus pneumoniae Antigen (M - Final 11/17/20 22:45 Mucosa - Nasopharyngeal Respiratory Panel (PCR) - Final 11/17/20 19:20 Nasal Secretion SARS-CoV-2 Antigen (Rapid) - Final Meaningful Use Info Meaningful Use Diagnoses (Choose all that apply): None applicable Discharge Plan Admission Admit Date/Time: 11/17/20 21:51 Attending Provider: Ravin Ortega Primary Care Provider: Juan De La Vega III Consulting Providers: Carlos Pop ; Jose Coleman Instructions Patient Instructions: ED Chest Pain, Noncardiac Discharge Orders/Prescriptions Prescriptions: New acetaminophen [Tylenol] 325 mg Tablet 650 mg PO Q6H PRN PRN (Reason: Pain Score 1-10/Temp > 100.7 F) Qty: 0 RF: 0 Eliquis 5 mg Tablet 10 mg PO BID Qty: 0 RF: 0 Cepacol Sore Throat (sara-men) 15-3.6 mg Lozenge 1 ana cristina mucous membrane Q2H PRN PRN (Reason: SORE THROAT) Qty: 0 RF: 0 guaifenesin 100 mg/5 mL Liquid 10 ml PO Q4H PRN PRN (Reason: COUGH) Qty: 0 RF: 0 furosemide 20 mg Tablet 20 mg PO DAILY Qty: 0 RF: 0 lorazepam 0.5 mg Tablet 0.5 mg PO Q4H PRN PRN (Reason: shortness of breath/anxiety) Qty: 10 RF: 0 insulin lispro [Humalog KwikPen Insulin] 100 unit/mL Insulin Pen See Protocol unit subcut ACHS Qty: 3 RF: 0 melatonin 3 mg Tablet 3 mg PO QHS PRN PRN (Reason: Insomnia) Qty: 0 RF: 0 alum-mag hydroxide-simeth [Mag-Al Plus Extra Strength] 400-400-40 mg/5 mL Suspension 30 ml PO Q6H PRN PRN (Reason: Gastric Burning) Qty: 0 RF: 0 midodrine 5 mg Tablet 5 mg PO TIDCM Qty: 0 RF: 0 oxycodone 5 mg Tablet 10 mg PO Q6H PRN PRN (Reason: Pain Score 4-10) 3 Days Qty: 12 RF: 0 prednisone 20 mg Tablet 40 mg PO DAILY@0800 Qty: 0 RF: 0 Metamucil Fiber Singles 3.4 gram Powder In Packet 1 packet PO DAILY PRN PRN (Reason: Constipation) Qty: 0 RF: 0 sennosides-docusate sodium [Stool Softener-Stimulant Laxat] 8.6-50 mg Tablet 2 tab PO BID PRN PRN (Reason: Constipation) Qty: 0 RF: 0 Continued levetiracetam 500 MG tablet 500 mg PO DAILY RF: 0 nicotine 14 MG patch 14 mg TRANSDERM. DAILY RF: 0 ipratropium-albuterol 3 ML solution for nebulization 3 ml IH Q6H PRN (Reason: SOB/WHEEZING) RF: 0 albuterol sulfate 2.5 MG/3 ML solution for nebulization 2.5 mg INHALATION Q4H PRN PRN (Reason: SOB/WHEEZING) RF: 0 levothyroxine 25 MCG tablet 25 mcg PO DAILY RF: 0 pantoprazole 40 MG tablet 40 mg PO DAILY RF: 0 allopurinol 300 MG tablet 300 mg PO DAILY RF: 0 umeclidinium-vilanterol 1 EACH blister with device 1 ea IH DAILY RF: 0 rosuvastatin 40 MG tablet 40 mg PO QHS RF: 0 ondansetron 4 MG tablet 4 mg PO Q6H PRN PRN (Reason: Nausea) Qty: 15 RF: 0 metoclopramide HCl 10 MG tablet 10 mg PO 4X/DAY PRN PRN (Reason: Nausea/Vomiting) Qty: 20 RF: 0 polyethylene glycol 3350 17 GM packet 17 gm PO QHS PRN PRN (Reason: Constipation) Qty: 5 RF: 0 polyethylene glycol 3350 [Miralax] 17 gram powder in packet 17 g PO DAILY RF: 0 aspirin [Adult Low Dose Aspirin] 81 mg tablet,delayed release (DR/EC) 81 mg PO DAILY RF: 0 ranolazine [Ranexa] 500 mg tablet extended release 12 hr 500 mg PO BID RF: 0 Discontinued nitroglycerin 0.4 MG tablet, sublingual 0.4 mg SL Q5M PRN (Reason: CHEST PAIN) RF: 0 oxycodone-acetaminophen 1 EACH tablet 1 ea PO Q6H PRN (Reason: Pain 1-10 Or Fever) RF: 0 furosemide 40 MG tablet 40 mg PO BID Qty: 10 RF: 0 lisinopril 2.5 MG tablet 2.5 mg PO DAILY RF: 0 carvedilol 3.125 mg tablet 3.125 mg PO BID RF: 0 No Action glimepiride 1 MG tablet 1 mg PO DAILY RF: 0 Referrals: Carlos Pop DO [STAFF PHYSICIAN] - Within 2 Weeks Juan De La Vega III, MD [Primary Care Provider] - In 1 Week Jose Coleman MD [STAFF PHYSICIAN] - Within 2 Weeks Disposition Patient Disposition: [facility] Facility Visit Charges Inpatient E&M: 54107 Disch Hosp
--- NOTE | 2020-11-24 12:30 | CPS ---
Patient not given PRN albuterol due to elevated HR in high 120s. RN Christopher notified.
--- NOTE | 2020-11-24 15:21 | PN.CARD_ITS ---
Subjective Subjective: Seen today at bedside along with the nursing staff he had symptoms of shortness of breath on minimal exertion he does not have any active chest pain. Objective Data Vital Signs: Vital Signs Temp Pulse Resp BP Pulse Ox 97.9 F 108 H 21 H 96/71 100 11/24/20 11:28 11/24/20 14:07 11/24/20 14:07 11/24/20 11:28 11/24/20 11:28 Oxygen Flow Rate (L/min) 3 Oxygen Delivery Method Nasal Cannula Weight: 172 lb 9.951 oz Body Mass Index (BMI) 24.2 Finger Stick Blood Glucose 195 Intake & Output: Intake and Output for Last 24 Hours 11/22/20 11/23/20 11/24/20 23:59 23:59 23:59 Intake Total 1230 / 1650 1280 / 1500 220 / 220 Output Total 200 / 200 Balance 1230 / 1450 1080 / 1300 220 / 220 Lab / Micro Data Result Diagrams: 11/24/20 04:02 11/24/20 04:02 Labs: Laboratory Results - last 24 hr 11/23/20 11/23/20 11/24/20 16:34 21:36 04:02 WBC 13.9 H RBC 3.83 L Hgb 11.3 L Hct 34.9 L MCV 91.1 MCH 29.5 MCHC 32.4 RDW Std Deviation 51.5 H RDW Coeff of Maggie 15.6 H Plt Count 218 MPV 11.1 Immature Gran % (Auto) 2.100 H Neut % (Auto) 85.5 H Lymph % (Auto) 6.2 L [place] % (Auto) 5.8 Eos % (Auto) 0.1 Baso % (Auto) 0.3 Absolute Neuts (auto) 11.9 H Absolute Lymphs (auto) 0.86 Nucleated RBC % 1.4 Sodium Potassium Chloride Carbon Dioxide Anion Gap BUN Creatinine Estim Creat Clear Calc Est GFR (MDRD) Af Amer Est GFR (MDRD) Non-Af BUN/Creatinine Ratio Glucose Calcium Magnesium POC Glucose 206 H 240 H 11/24/20 11/24/20 11/24/20 04:02 04:02 06:34 WBC RBC Hgb Hct MCV MCH MCHC RDW Std Deviation RDW Coeff of Maggie Plt Count MPV Immature Gran % (Auto) Neut % (Auto) Lymph % (Auto) [place] % (Auto) Eos % (Auto) Baso % (Auto) Absolute Neuts (auto) Absolute Lymphs (auto) Nucleated RBC % Sodium 132 L Potassium 4.7 Chloride 92 L Carbon Dioxide 36.0 H Anion Gap 4 L BUN 43 H Creatinine 1.31 H Estim Creat Clear Calc 51.49 Est GFR (MDRD) Af Amer 70 Est GFR (MDRD) Non-Af 58 L BUN/Creatinine Ratio 32.8 H Glucose 155 H Calcium 8.2 L Magnesium 2.8 H POC Glucose 214 H 11/24/20 11:18 WBC RBC Hgb Hct MCV MCH MCHC RDW Std Deviation RDW Coeff of Maggie Plt Count MPV Immature Gran % (Auto) Neut % (Auto) Lymph % (Auto) [place] % (Auto) Eos % (Auto) Baso % (Auto) Absolute Neuts (auto) Absolute Lymphs (auto) Nucleated RBC % Sodium Potassium Chloride Carbon Dioxide Anion Gap BUN Creatinine Estim Creat Clear Calc Est GFR (MDRD) Af Amer Est GFR (MDRD) Non-Af BUN/Creatinine Ratio Glucose Calcium Magnesium POC Glucose 180 H Micro: Microbiology 11/24/20 12:45 Interface Orders SARS-CoV-2 Antigen (Rapid) - Final 11/17/20 19:05 Blood Culture (Wb) #2 - Anticubital Left Blood Culture - Final No growth in 5 days. 11/17/20 19:50 Blood Culture (Wb) - Anticubital Left Blood Culture - Final No growth in 5 days. 11/20/20 05:30 Sputum, Expectorated/Coughed Gram Stain - Final 11/20/20 05:30 Sputum, Expectorated/Coughed Respiratory Culture - Final 11/18/20 13:10 Urine, Clean Catch Legionella Antigen - Final 11/18/20 13:10 Urine, Clean Catch Streptococcus pneumoniae Antigen (M - Final 11/17/20 22:45 Mucosa - Nasopharyngeal Respiratory Panel (PCR) - Final 11/17/20 19:20 Nasal Secretion SARS-CoV-2 Antigen (Rapid) - Final Cardiology Labs/Tests 11/24/20 04:02: WBC 13.9 H, RBC 3.83 L, Hgb 11.3 L, Hct 34.9 L, MCV 91.1, MCH 29.5, MCHC 32.4, Plt Count 218, MPV 11.1, Immature Gran % (Auto) 2.100 H, Neut % (Auto) 85.5 H, Lymph % (Auto) 6.2 L, [place] % (Auto) 5.8, Eos % (Auto) 0.1, Baso % (Auto) 0.3, Absolute Neuts (auto) 11.9 H, Nucleated RBC % 1.4 11/24/20 04:02: Sodium 132 L, Potassium 4.7, Chloride 92 L, Carbon Dioxide 36.0 H, Anion Gap 4 L, BUN 43 H, Creatinine 1.31 H, Est GFR (MDRD) Af Amer 70, Est GFR (MDRD) Non-Af 58 L, BUN/Creatinine Ratio 32.8 H, Glucose 155 H, Calcium 8.2 L 11/24/20 04:02: Magnesium 2.8 H Rhythm: Reviewed Physical Exam Const alert and oriented x3 Orientation / Consciousness: awake HEENT head/scalp atraumatic Eyes PERRL and EOMs intact bilaterally Neck full ROM and supple Resp normal respiratory effort Auscultation: rales bilateral base Cardio regular rate, regular rhythm, S1 normal heart sound and S2 normal heart sound GI normal to inspection, nondistended, normoactive bowel sounds Extremity General Extremity: edema Psych mental status grossly normal Assessment & Plan Assessment/Plan (1) CAD (coronary artery disease): Status: Chronic Code(s): I25.10 - Atherosclerotic heart disease of [place] coronary artery without angina pectoris Qualifiers: Coronary Disease-Associated Artery/Lesion type: unspecified vessel or lesion type [place] vs. transplanted heart: [place] heart Plan: The patient will continue risk factor evaluation care as deemed appropriate. The patient has undergone extensive noninvasive and invasive evaluation in the past. He has been evaluated locally and at [facility]. At [facility]-coupled with their colleagues at [facility]-he has been deemed not a candidate for any further intervention/procedures. (2) Stented coronary artery: Status: Chronic Plan: He does have a history of underlying CAD and is undergone multiple PCI procedures. At the present he will continue medical management. (3) H/O coronary artery bypass surgery: Status: Chronic Code(s): Z95.1 - Presence of aortocoronary bypass graft Plan: He has a history of underlying CABG. He is undergone noninvasive and invasive evaluation in the past. He has had multiple percutaneous interventions of his SVG graft to his OM system. At the present time he will continue medical management. (4) Ischemic cardiomyopathy: Status: Chronic Code(s): I25.5 - Ischemic cardiomyopathy Plan: He does have an ischemic mediated cardiomyopathy. His recent echocardiogram demonstrates his left ventricular systolic function to be diminished with an estimated LVEF of 10%. He will continue medical therapy. He does have an ICD in place. (5) Chronic systolic (congestive) heart failure: Status: Chronic Code(s): I50.22 - Chronic systolic (congestive) heart failure Plan: He does have chronic systolic CHF. An attempt will be made to initiate low-dose diuretic therapy to assist with his volume status based upon his physical examination and his symptoms. (6) Presence of automatic implantable cardioverter-defibrillator: Status: Chronic Code(s): Z95.810 - Presence of automatic (implantable) cardiac defibrillator Plan: He does have an ICD in place. It has been monitored in the past and has been thought to be functioning appropriately. (7) Hyperlipidemia: Status: Deleted Code(s): E78.5 - Hyperlipidemia, unspecified Qualifiers: Hyperlipidemia type: unspecified Qualified Code(s): E78.5 - Hyperlipidemia, unspecified Plan: He will continue medical therapy. (8) Benign essential hypertension: Status: Chronic Code(s): I10 - Essential (primary) hypertension Plan: His blood pressure has been low. He was placed on medical therapy with midodrine. He has been able to be weaned off his IV vasopressor and remain on midodrine to assist with supporting his blood pressure. I reviewed and discussed the current medication with the nursing staff Patient will be discharged to half-way. And to follow-up with his primary emergency department technician Dr. Lay in 1 to 2 weeks.
== END 2020-11-24 16:28 | disposition skilled nursing facility (03) | DRG 190 ==
LOC: ED 22:01 → ICU 23:29 → PCU 11-21 10:06
PROVIDERS: Hospitalist; Internal Medicine; Internal Medicine Critical Care Medicine; Admitting Provider Family Medicine; Emergency Provider Emergency Medicine; PCP Family Medicine
DX: J44.1 Chronic obstructive pulmonary disease with (acute) exacerbation (principal); J96.21 Acute and chronic respiratory failure with hypoxia; R57.0 Cardiogenic shock; N18.6 End stage renal disease; J18.9 Pneumonia, unspecified organism; I26.99 Other pulmonary embolism without acute cor pulmonale; I50.22 Chronic systolic (congestive) heart failure; I13.2 Hypertensive heart and chronic kidney disease with heart failure and with stage 5 chronic kidney disease, or end stage renal disease; E87.2 Acidosis; I25.10 Atherosclerotic heart disease of native coronary artery without angina pectoris; G89.29 Other chronic pain; K21.9 Gastro-esophageal reflux disease without esophagitis; E78.5 Hyperlipidemia, unspecified; I25.5 Ischemic cardiomyopathy; G47.33 Obstructive sleep apnea (adult) (pediatric); F17.219 Nicotine dependence, cigarettes, with unspecified nicotine-induced disorders; Z95.5 Presence of coronary angioplasty implant and graft; E03.9 Hypothyroidism, unspecified; I25.2 Old myocardial infarction; E87.6 Hypokalemia; J44.0 Chronic obstructive pulmonary disease with (acute) lower respiratory infection; M1A.9XX0 Chronic gout, unspecified, without tophus (tophi); Z95.810 Presence of automatic (implantable) cardiac defibrillator; Z79.01 Long term (current) use of anticoagulants; Z79.82 Long term (current) use of aspirin; Z79.890 Hormone replacement therapy; Z80.1 Family history of malignant neoplasm of trachea, bronchus and lung; Z99.2 Dependence on renal dialysis; Z82.5 Family history of asthma and other chronic lower respiratory diseases; Z82.49 Family history of ischemic heart disease and other diseases of the circulatory system; E11.69 Type 2 diabetes mellitus with other specified complication; N18.30 Chronic kidney disease, stage 3 unspecified; M54.5 Low back pain; E87.5 Hyperkalemia; Z66 Do not resuscitate
CPT/HCPCS: 36415; 36600; 71045; 71275; 80048; 80053; 81001; 82803; 82962; 83605; 83690; 83735; 83880; 84100; 84132; 84145; 84484; 85025; 85610; 85730; 87040; 87070; 87205; 87426; 87449; 87633; 87641; 93005; 93306; 94002; 94003; 94640; 94667; 94668; 97162; 97166; 97530; 97535; 97802; 97803; 99251; 99285; J7030; J7050; Q9957; Q9967; A4216; C1751; C8929; G0463; J2405

== ENCOUNTER 2020-11-27 11:03 | Emergency (ER) | payer MEDICARE, MEDICAID, SELFPAY ==
[2020-11-17 22:55] VITALS: BMI 24.2
[2020-11-27] VITALS (15 sets, daily range): BP systolic 86–103; BP diastolic 53–79; PULSE 74–93; RESP 20–32; TEMP 35.9–36.9; O2SAT 90–100; BMI 26.2
--- NOTE | 2020-11-27 11:28 | EKG12_ITS ---
Test Reason : SOB Blood Pressure : / mmHG Vent. Rate : 085 BPM Atrial Rate : 085 BPM P-R Int : 156 ms QRS Dur : 140 ms QT Int : 482 ms P-R-T Axes : 073 150 101 degrees QTc Int : 573 ms Sinus rhythm with Premature atrial complexes Non-specific intra-ventricular conduction block Abnormal ECG Confirmed by SHAVONNE LUNDBERG, LISA ([id number]), tape editor COREY BRYANT ([id number]) on 11/28/2020 9:23:17 AM Referred By: ASHA Confirmed By:LISA MARVIN MD
[2020-11-27 12:05] LABS: Mucous, Urine 0 SEEN /hpf (<or=2+); Red Blood Cells-Urine 0 SEEN /hpf (0-5); Squamous Epithelial Cells - UA 0 SEEN /hpf (0-5)
[2020-11-27 12:16] LABS: Base Excess 4 mmol/L (-2 to +2); Bicarbonate 28.5 mmol/L (22-26); Blood Gas Specimen Type ART; LPM 2.5 /min; O2 Delivery Device Cannula; PO2 54 mmHG (75-100); SITE L Brach; SO2 88 % (95-99); Total Carbon Dioxide 30 mmol/L; pCO2 43.3 mmHg (35-45); pH 7.43 (7.35-7.45)
[2020-11-27 12:21] LABS: Color, Urine Yellow (Yellow); Glucose, Dipstick Normal (Normal); Ketone-Dipstick 5 mg/dl (Negative); Leukocyte Esterase-Dipstick 25 /ul (Negative); Nitrite-Dipstick Negative (Negative); Occult Blood-Urine 150 /ul (Negative); Protein-Dipstick 100 mg/dl (Negative); Urine Clarity Clear (Clear); Urine Urobilinogen 12 mg/dl (Normal)
[2020-11-27 12:25] LABS: Urine Bilirubin Dipstick 1 mg/dL (Negative)
[2020-11-27 12:28] LABS: Fine Granular Cast- Urine 5-10 SEEN /lpf (0-5)
[2020-11-27 12:30] LABS: Bacteria 2+ /hpf (None Seen); White Blood Cells 5-10 SEEN /hpf (0-5)
[2020-11-27 12:31] LABS: Amorphous Sediment 1+
--- NOTE | 2020-11-27 12:38 | ED.VIS.DYS ---
HPI History of Present Illness Chief Complaint: Shortness of Breath Narrative Narrative: Patient presenting for evaluation secondary to shortness of breath. Patient has a complicated medical history that includes recent hospital admission secondary to developments of pulmonary embolism, congestive heart failure with ischemic cardiomyopathy, hypertension, COPD, and chronic oxygen dependence. Patient apparently per his daughter has been having some issues with increasing somnolence and today was even more somnolent and was complaining that he was having shortness of breath. Patient denies that he is experiencing much chest pain currently. He denies any infectious signs or symptoms such as fever. He does report that he has a baseline cough. No abdominal pain. No nausea vomiting or diarrhea. Patient is on his baseline nasal cannula oxygen currently. Review of systems otherwise negative. [facility] Medical History Atherosclerosis of coronary artery bypass graft without angina pectoris Benign essential hypertension CAD (coronary artery disease) Chronic back pain Chronic renal failure, stage 3 (moderate) Chronic systolic (congestive) heart failure Degenerative cervical disc Gastroesophageal reflux disease Gout Ischemic cardiomyopathy Nicotine dependence Presence of stent of bypass graft (~09/22/20) Tubular adenoma of colon V-tach Home Medications albuterol sulfate 2.5 mg INHALATION Q4H PRN PRN 09/11/20 [History Last Taken Unknown] allopurinol 300 mg PO DAILY 09/11/20 [History Last Taken Unknown] glimepiride 1 mg PO DAILY 09/11/20 [History Last Taken Unknown] ipratropium-albuterol 3 ml IH Q6H PRN 09/11/20 [History Last Taken Unknown] levetiracetam 500 mg PO DAILY 09/11/20 [History Last Taken Unknown] levothyroxine 25 mcg PO DAILY 09/11/20 [History Last Taken Unknown] nicotine 14 mg TRANSDERM. DAILY 09/11/20 [History Last Taken Unknown] pantoprazole 40 mg PO DAILY 09/11/20 [History Last Taken Unknown] umeclidinium-vilanterol 1 ea IH DAILY 09/11/20 [History Last Taken Unknown] aspirin 81 mg tablet,delayed release 81 mg PO DAILY 09/28/20 [History Last Taken Unknown] polyethylene glycol 3350 17 gram oral powder packet 17 g PO DAILY 09/28/20 [History Last Taken Unknown] ranolazine 500 mg tablet,extended release,12 hr 500 mg PO BID 09/28/20 [History Last Taken Unknown] rosuvastatin 40 mg PO QHS 09/29/20 [History Last Taken Unknown] ondansetron 4 mg PO Q6H PRN PRN #15 tablet 10/14/20 [Rx Last Taken Unknown] metoclopramide HCl 10 mg PO 4X/DAY PRN PRN #20 tablet 10/24/20 [Rx Last Taken Unknown] polyethylene glycol 3350 17 gm PO QHS PRN PRN #5 packet 10/24/20 [Rx Last Taken Unknown] acetaminophen [Tylenol] 650 mg PO Q6H PRN PRN #0 tab 11/24/20 [Rx Last Taken Unknown] apixaban [Eliquis] 10 mg PO BID #0 tab 11/24/20 [Rx Last Taken Unknown] benzocaine-menthol [Cepacol Sore Throat (sara-men)] 1 ana cristina MUCOUS MEMBRANE Q2H PRN PRN #0 ea 11/24/20 [Rx Last Taken Unknown] furosemide 20 mg PO DAILY #0 tab 11/24/20 [Rx Last Taken Unknown] guaifenesin 10 ml PO Q4H PRN PRN #0 ml 11/24/20 [Rx Last Taken Unknown] insulin lispro [Humalog KwikPen Insulin] See Protocol SUBCUT ACHS #3 ml 11/24/20 [Rx Last Taken Unknown] melatonin 3 mg PO QHS PRN PRN #0 tab 11/24/20 [Rx Last Taken Unknown] midodrine 5 mg PO TIDCM #0 tab 11/24/20 [Rx Last Taken Unknown] oxycodone 10 mg PO Q6H PRN PRN 3 Days #12 tab 11/24/20 [Rx Last Taken Unknown] prednisone 40 mg PO DAILY@0800 #0 tab 11/24/20 [Rx Last Taken Unknown] psyllium husk (aspartame) [Metamucil Fiber Singles] 1 packet PO DAILY PRN PRN #0 ea 11/24/20 [Rx Last Taken Unknown] sennosides-docusate sodium [Stool Softener-Stimulant Laxat] 2 tab PO BID PRN PRN #0 tab 11/24/20 [Rx Last Taken Unknown] alum-mag hydroxide-simeth [Mag-Al Plus Extra Strength] 30 ml PO Q4H PRN PRN 11/27/20 [History Last Taken Unknown] lorazepam 0.5 mg PO Q6H PRN PRN 11/27/20 [History Last Taken Unknown] Allergy/AdvReac Type Severity Reaction Status Date / Time chlorpromazine HCl Allergy Severe Hives Verified 11/17/20 18:44 [From Thorazine] tramadol HCl [From Ultram] Allergy Severe Hives Verified 11/17/20 18:44 codeine Allergy Intermediate Hives Verified 11/17/20 18:44 promethazine [From Phenergan] Allergy confusion Verified 11/17/20 18:44 atorvastatin AdvReac Intermediate LEG Verified 11/17/20 18:44 PAIN/CRAMPS cyclobenzaprine AdvReac Upset Verified 11/17/20 18:44 [From Flexeril] Stomach metformin AdvReac Upset Verified 11/17/20 18:44 Stomach naproxen AdvReac Upset Verified 11/17/20 18:44 Stomach Family History Brother , age 36 from [place] CAD (coronary artery disease) Myocardial infarction Sudden cardiac Mother Cancer Lung Hypertension Father Cancer Lung COPD (chronic obstructive pulmonary disease) Surgical History H/O coronary artery bypass surgery (~2008) History of left heart catheterization (07/17/20) Hx of hernia repair Presence of automatic implantable cardioverter-defibrillator Presence of coronary angioplasty implant and graft (~09/22/20) Previous back surgery Stented coronary artery (~12/2016) Social History Smoking Status: Light Smoker (<10/day) Tobacco: How many years used: 58 how long ago did patient quit smokin, 1ppd second hand exposure: Yes alcohol intake: never substance use type: does not use caffeine: Yes what type of physical activity do you participate in: none frequency: does not exercise seatbelt use: always ROS ROS ED Constitutional Constitutional ED: Denies chills or fever(s) ENT ENT ED: Denies rhinorrhea Cardiovascular Cardiovascular: Denies chest pain Respiratory/Chest Respiratory/Chest: Reports cough and dyspnea Gastrointestinal Gastrointestinal: Denies abdominal pain, diarrhea, nausea or vomiting Genitourinary Genitourinary ED: Denies dysuria or hematuria Musculoskeletal Musculoskeletal: Denies back pain Integumentary Denies rash Neurologic Neurologic: Denies paresthesias or weakness Psychiatric Psychiatric: Denies depression Endocrine Endocrinology: Denies fatigue Allergic/Immunologic Allergic/Immunologic ED: Denies urticaria EXAM Physical Exam Const Vital Signs: 11/27/20 11:03 11/27/20 11:08 11/27/20 11:09 Temperature 96.7 F L Temperature Source Oral Pulse Rate 86 Respiratory Rate 28 H Respiratory Effort Short of Breath Accessory Muscle Use Respiratory Pattern Normal Blood Pressure 99/72 Blood Pressure Mean 81 Pulse Ox 94 90 Oxygen Delivery Method Room Air Room Air Room Air Oxygen Flow Rate (L/min) Fraction of Inspired Oxygen (FIO2) 11/27/20 11:13 11/27/20 11:28 11/27/20 11:34 Temperature 96.9 F L Temperature Source Temporal Pulse Rate 87 Respiratory Rate 28 H Respiratory Effort Respiratory Pattern Blood Pressure 93/79 Blood Pressure Mean 83 Pulse Ox 94 99 Oxygen Delivery Method Nasal Cannula Nasal Cannula Nasal Cannula Oxygen Flow Rate (L/min) 2 2 2 Fraction of Inspired Oxygen (FIO2) 100 11/27/20 12:04 11/27/20 12:49 11/27/20 13:02 Temperature 98.4 F 98.4 F Temperature Source Temporal Temporal Pulse Rate 85 85 87 Respiratory Rate 32 H 28 H Respiratory Effort Respiratory Pattern Blood Pressure 97/71 97/71 103/76 Blood Pressure Mean 79 79 85 Pulse Ox 99 100 100 Oxygen Delivery Method Nasal Cannula Nasal Cannula Nasal Cannula Oxygen Flow Rate (L/min) 2 4 2 Fraction of Inspired Oxygen (FIO2) 11/27/20 14:18 Temperature 97.4 F L Temperature Source Axillary Pulse Rate 78 Respiratory Rate 26 H Respiratory Effort Respiratory Pattern Blood Pressure 93/69 Blood Pressure Mean 77 Pulse Ox 99 Oxygen Delivery Method Nasal Cannula Oxygen Flow Rate (L/min) 4 Fraction of Inspired Oxygen (FIO2) Positive well developed General Appearance ED: well developed and other Ill-appearing male who is somnolent but easily arousable sitting upright in the bed HEENT Reports dry mucous membranes atraumatic Mouth ED: Yes dry mucous membranes Mouth: dry mucous membranes Eyes PERRL and EOMs intact bilaterally Neck no lymphadenopathy, supple and no JVD Resp normal respiratory effort and clear to auscultation bilaterally Auscultation: Negative for rales, rhonchi or wheezes Cardio regular rate, regular rhythm and no murmurs Cardio Narrative: Heart sounds are distant, but no obvious murmurs are noted Rate: other Other Details: 1+ radial pulses bilaterally symmetric GI non-tender and non-distended Palpation: soft Extremity Extremity Narrative: Patient has some lower extremity pitting edema. There is some discoloration at the knees and elbows that is a blanching reddish type discoloration. Patient has 5 out of 5 strength of the upper and lower extremities bilaterally General Extremety ED: Yes edema General Extremity: edema Neuro oriented x3 and no sensory deficits noted Neuro Narrative: Patient is somewhat lethargic but easily arousable and is alert and oriented, no lateralizing deficits Sensorium / Orientation: alert, oriented to person, oriented to place, oriented to time and lethargic Motor Exam: strength 5/5 throughout Skin Rashes: no rashes MDM MDM MDM Narrative Medical decision making narrative: Patient presented secondary to shortness of breath. He was noted to be lethargic on initial presentation. Patient was worked up for the possibility of sepsis. He was modestly hypotensive. I did give him a gentle fluid bolus. Patient required central venous access due to an inability to obtain any access this was performed as noted in the procedure note and a right internal jugular venous catheter was placed. Patient's work-up ultimately shows him to have a new onset of a leukocytosis at 17,000. His INR was pathologically elevated at 4.7. Urine showed some bacteria and 5-10 whites that was cultured patient was given Rocephin at that time. Chemistry showed the patient have a creatinine of 1.4. His lactic acid was normal but he does have some elevation of his bilirubin as well as his liver enzymes. Troponin was elevated at 0.1 BNP was 2000. Chest x-ray by my personal review demonstrated a new onset of right-sided infiltrate with good placement of the internal jugular venous catheter aztreonam was added to the patient's medication regimen as he does have a prolonged QTC. Patient's daughter discussed with me about her wishes for him potentially to be transition to palliative care versus hospice care. workers compensation claims analyst will evaluate the patient to help coordinate this. Patient will be admitted at this time for further treatment of pneumonia and metabolic encephalopathy. Lab Data Labs: Laboratory Results - last 24 hr 11/27/20 11/27/2011/27/21 12:00 12:40 12:40 WBC 17.6 H RBC 4.08 L Hgb 11.5 L Hct 36.1 L MCV 88.5 MCH 28.2 MCHC 31.9 L RDW Std Deviation 52.1 H RDW Coeff of Maggie 16.0 H Plt Count 188 MPV 11.2 Immature Gran % (Auto) 0.800 Neut % (Auto) 91.6 H Lymph % (Auto) 2.4 L Radford % (Auto) 5.1 Eos % (Auto) 0.0 Baso % (Auto) 0.1 Absolute Neuts (auto) 16.2 H Absolute Lymphs (auto) 0.43 L Nucleated RBC % 0.2 Platelet Estimate ADEQUATE Polychromasia RARE Hypochromasia 1+ PT 43.7 H INR 4.7 H* APTT 46.9 H Sodium Potassium Chloride Carbon Dioxide Anion Gap BUN Creatinine Estim Creat Clear Calc Est GFR (MDRD) Af Amer Est GFR (MDRD) Non-Af BUN/Creatinine Ratio Glucose Lactic Acid Calcium Total Bilirubin AST ALT Alkaline Phosphatase Troponin I B-Natriuretic Peptide Total Protein Albumin Globulin Albumin/Globulin Ratio Urine Color Yellow Urine Clarity Clear Urine pH 7.0 Ur Specific Pierce 1.010 Urine Protein 100 H Urine Glucose (UA) Normal Urine Ketones 5 H Urine Occult Blood 150 H Urine Nitrite Negative Urine Bilirubin 1 H Urine Urobilinogen 12 H Ur Leukocyte Esterase 25 H Urine RBC 0 SEEN Urine WBC 5-10 SEEN Ur Squamous Epith Cells 0 SEEN Amorphous Sediment 1+ Urine Bacteria 2+ Fine Granular Casts 5-10 SEEN Urine Mucus 0 SEEN 11/27/20 11/27/20 11/27/20 12:40 12:40 12:40 WBC RBC Hgb Hct MCV MCH MCHC RDW Std Deviation RDW Coeff of Maggie Plt Count MPV Immature Gran % (Auto) Neut % (Auto) Lymph % (Auto) Radford % (Auto) Eos % (Auto) Baso % (Auto) Absolute Neuts (auto) Absolute Lymphs (auto) Nucleated RBC % Platelet Estimate Polychromasia Hypochromasia PT INR APTT Sodium 134 L Potassium 3.7 Chloride 96 L Carbon Dioxide 31.0 Anion Gap 7 BUN 50 H Creatinine 1.48 H Estim Creat Clear Calc 47.11 Est GFR (MDRD) Af Amer 61 Est GFR (MDRD) Non-Af 50 L BUN/Creatinine Ratio 33.8 H Glucose 64 L Lactic Acid 1.5 Calcium 7.8 L Total Bilirubin 2.30 H AST 183 H ALT 542 H Alkaline Phosphatase 292 H Troponin I 0.107 H B-Natriuretic Peptide 2205.7 H Total Protein 5.9 L Albumin 2.4 L Globulin 3.5 Albumin/Globulin Ratio 0.7 L Urine Color Urine Clarity Urine pH Ur Specific Pierce Urine Protein Urine Glucose (UA) Urine Ketones Urine Occult Blood Urine Nitrite Urine Bilirubin Urine Urobilinogen Ur Leukocyte Esterase Urine RBC Urine WBC Ur Squamous Epith Cells Amorphous Sediment Urine Bacteria Fine Granular Casts Urine Mucus ABG Data ABG results: ABG 11/27/20 12:05 Specimen Type ART Sample Site L Brach pH 7.43 Bicarbonate Actual 28.5 H Total CO2 30 Base Excess 4 H O2 Saturation 88 L ABG pCO2 43.3 ABG pO2 54 L O2 Delivery Device Cannula Liter Flow 2.5 Radiography Diagnostic Testing: Radiology Impression Abdomen/Pelvis CT 11/27/20 13:40 IMPRESSION: 1. Right middle lobe pneumonia. 2. Moderate right pleural effusion and small left pleural effusion with bibasilar atelectasis. 3. Medina catheter within the collapsed bladder. 4. Avascular arthrosis of both femoral heads with moderate hip arthrosis. Electronically Signed: Babatunde Gallo MD at 14:13 EDT Tel , Service support , Chest X-Ray 11/27/20 13:45 IMPRESSION: Interval development of right middle lobe pneumonia with a small right pleural effusion. Electronically Signed: Babatunde Gallo MD at 14:07 EDT Tel , Service support , EKG Initial EKG: Attestation: I personally reviewed and interpreted this EKG as follows: (Sinus rhythm of 85 with no evidence of abnormal ST segment deviation, left bundle branch block morphology is noted occasional PACs are noted. No evidence of acute ischemic changes.) Procedures Other Procedures Procedure(s): Patient's right internal jugular vein was identified using ultrasound. Patient was prepped and draped in a sterile fashion. Chlorhexidine was used x2. Direct ultrasound guidance was utilized and the right internal jugular vein was accessed under direct visualization with confirmation of needle and wire placement by ultrasound. Modified Seldinger technique was then utilized to place a triple-lumen catheter, there was good flush and withdrawal from each port. This was sutured in place. Nursing placed a dressing. Patient tolerated this well. Critical Care Time Critical care time (excluding procedures): 30-74 minutes, Including time spent:, Discussing w/Patient &/or Family/Environmental Project Manager, Discussing w/Consultants, Arranging Admission or Transfer and Performing Direct Patient Care at Bedside Discharge Plan Triage Chief Complaint: Shortness of Breath ED Provider: Myron García Dx/Rx/DC Orders Clinical Impression: HCAP (healthcare-associated pneumonia), Congestive heart failure, Urinary tract infection, Elevated INR, Transaminitis, Acute metabolic encephalopathy Prescriptions: No Action levetiracetam 500 MG tablet 500 mg PO DAILY RF: 0 nicotine 14 MG patch 14 mg TRANSDERM. DAILY RF: 0 ipratropium-albuterol 3 ML solution for nebulization 3 ml IH Q6H PRN (Reason: SOB/WHEEZING) RF: 0 albuterol sulfate 2.5 MG/3 ML solution for nebulization 2.5 mg INHALATION Q4H PRN PRN (Reason: SOB/WHEEZING) RF: 0 levothyroxine 25 MCG tablet 25 mcg PO DAILY RF: 0 glimepiride 1 MG tablet 1 mg PO DAILY RF: 0 pantoprazole 40 MG tablet 40 mg PO DAILY RF: 0 allopurinol 300 MG tablet 300 mg PO DAILY RF: 0 umeclidinium-vilanterol 1 EACH blister with device 1 ea IH DAILY RF: 0 rosuvastatin 40 MG tablet 40 mg PO QHS RF: 0 ondansetron 4 MG tablet 4 mg PO Q6H PRN PRN (Reason: Nausea) Qty: 15 RF: 0 metoclopramide HCl 10 MG tablet 10 mg PO 4X/DAY PRN PRN (Reason: Nausea/Vomiting) Qty: 20 RF: 0 polyethylene glycol 3350 17 GM packet 17 gm PO QHS PRN PRN (Reason: Constipation) Qty: 5 RF: 0 acetaminophen [Tylenol] 325 mg Tablet 650 mg PO Q6H PRN PRN (Reason: Pain Score 1-10/Temp > 100.7 F) Qty: 0 RF: 0 Eliquis 5 mg Tablet 10 mg PO BID Qty: 0 RF: 0 Cepacol Sore Throat (sara-men) 15-3.6 mg Lozenge 1 ana cristian mucous membrane Q2H PRN PRN (Reason: SORE THROAT) Qty: 0 RF: 0 guaifenesin 100 mg/5 mL Liquid 10 ml PO Q4H PRN PRN (Reason: COUGH) Qty: 0 RF: 0 furosemide 20 mg Tablet 20 mg PO DAILY Qty: 0 RF: 0 insulin lispro [Humalog KwikPen Insulin] 100 unit/mL Insulin Pen See Protocol unit subcut ACHS Qty: 3 RF: 0 melatonin 3 mg Tablet 3 mg PO QHS PRN PRN (Reason: Insomnia) Qty: 0 RF: 0 midodrine 5 mg Tablet 5 mg PO TIDCM Qty: 0 RF: 0 oxycodone 5 mg Tablet 10 mg PO Q6H PRN PRN (Reason: Pain Score 4-10) 3 Days Qty: 12 RF: 0 prednisone 20 mg Tablet 40 mg PO DAILY@0800 Qty: 0 RF: 0 Metamucil Fiber Singles 3.4 gram Powder In Packet 1 packet PO DAILY PRN PRN (Reason: Constipation) Qty: 0 RF: 0 sennosides-docusate sodium [Stool Softener-Stimulant Laxat] 8.6-50 mg Tablet 2 tab PO BID PRN PRN (Reason: Constipation) Qty: 0 RF: 0 lorazepam 0.5 mg tablet 0.5 mg PO Q6H PRN PRN (Reason: shortness of breath/anxiety) RF: 0 alum-mag hydroxide-simeth [Mag-Al Plus Extra Strength] 400-400-40 mg/5 mL suspension 30 ml PO Q4H PRN PRN (Reason: Gastric Burning) RF: 0 polyethylene glycol 3350 [Miralax] 17 gram powder in packet 17 g PO DAILY RF: 0 aspirin [Adult Low Dose Aspirin] 81 mg tablet,delayed release (DR/EC) 81 mg PO DAILY RF: 0 ranolazine [Ranexa] 500 mg tablet extended release 12 hr 500 mg PO BID RF: 0 Primary Care Provider: Jorden Buckley Referrals: Jorden Buckley MD [Primary Care Provider] - Disposition Disposition: Acute Care [facility]
[2020-11-27 13:08] LABS: Absolute Lymphocyte Count 0.43 X10^3/uL (0.83-4.51); Absolute Neutrophil Count 16.2 X10^3/uL (2.0-7.7); Basophil# 0.01 X10^3/uL; Basophil% 0.1 % (0-1); Hematocrit 36.1 % (40-54); Hemoglobin 11.5 g/dL (13.0-16.5); Lymphocyte # 0.43 X10^3/ul (0.83-4.51); Lymphocyte % 2.4 % (19-41); Mean Corp Hgb Conc 31.9 g/dL (32-36); Mean Corpuscular Hgb 28.2 pg (27.0-32.0); Mean Corpuscular Volume 88.5 fL (80-94); Mean Platelet Vol. 11.2 fl (6.2-12.0); Monocyte% 5.1 % (0-10); NRBC Flagged by Analyzer 0.2 % (0-5); Neutrophil # 16.15 X10^3/uL (2.7-7.7); Neutrophil % 91.6 % (47-70); POSITIVE DIFFERENTIAL YES; Platelet Count 188 K/mm3 (150-450); RBC Distribution Width SD 52.1 fl (35.1-43.9); Red Blood Count 4.08 M/mm3 (4.6-6.2); White Blood Count 17.6 K/mm3 (4.4-11.0)
[2020-11-27] MEDS: Ceftriaxone 1 GM/50 ML BAG IV (13:09)
[2020-11-27 13:13] LABS: Differential Indicated SCAN CRITERIA MET
[2020-11-27 13:19] LABS: Prothrombin Time (Protime)PT. 43.7 SECONDS (11.7-14.9)
[2020-11-27 13:20] LABS: Partial Thromboplast Time 46.9 Seconds (24.1-36.2)
[2020-11-27 13:24] LABS: International Normalized Ratio 4.7
[2020-11-27 13:25] LABS: ALB/GLOB Ratio 0.7 RATIO (0.9-2.4); AST(SGOT) 183 U/L (15-37); Alanine Aminotransfer ALT/SGPT 542 U/L (16-61); Albumin, Serum 2.4 g/dL (3.2-5.0); Alkaline Phosphatase 292 U/L (45-117); Anion Gap 7 (5-15); BNP,B-Type NATRIURETIC PEPTIDE 2205.7 pg/mL (0-100); BUN 50 mg/dL (7-18); BUN/Creat Ratio 33.8 RATIO (10-20); Calcium,Total 7.8 mg/dL (8.5-10.1); Chloride 96 mmol/L (98-107); Creatinine, Serum 1.48 mg/dL (0.70-1.30); EST Glomerular Filtration Rate 50 mL/min (>60); Est Glom Filt Rate - Afr Amer 61 mL/min (>60); Estimated Creatinine Clearance 47.11 ml/min; Globulin 3.5 g/dL (2.2-4.2); Glucose 64 mg/dL (74-106); Potassium 3.7 mmol/L (3.5-5.1); Protein, Total 5.9 g/dL (6.4-8.2); Sodium Level 134 mmol/L (136-145)
[2020-11-27 13:30] LABS: Hypochromasia 1+; Platelet Estimate ADEQUATE (ADEQ); Polychromasia RARE
[2020-11-27 13:32] LABS: Lactic Acid 1.5 mmol/L (0.4-1.9)
[2020-11-27] MEDS: Dextrose 50%-Water 25 GM/50 ML DISP.SYRIN IV (13:36)
--- NOTE | 2020-11-27 13:40 | CT_ITS ---
STUDY: CT ABDOMEN AND PELVIS WITHOUT CONTRAST REASON FOR EXAM: Male, 70 years old. Pain, transaminitis RADIATION DOSAGE (If Supplied By Facility): CTDIvol = ( 11.91 ) mGy, DLP = ( 543.66 ) mGycm TECHNIQUE: Transaxial images were obtained from the dome of the diaphragm to the symphysis pubis without oral contrast, and without intravenous contrast. Sagittal and coronal images were reconstructed. Individualized dose optimization techniques were used for this CT. COMPARISON: 05/02/2019 FINDINGS: Alveolar density in the posterior right middle lobe consistent with pneumonia. Moderate right pleural effusion and small left pleural effusion with bibasilar atelectasis. The visualized portions of the heart are within normal limits. Normal liver. Normal gallbladder and extrahepatic biliary system. Normal spleen. Normal pancreas. Normal bilateral adrenal glands. Normal right kidney. Normal left kidney. Normal visualized stomach. Normal small intestine. Normal colon. The appendix is visualized and appears normal. There is diffuse atherosclerotic calcification of the abdominal aorta, without a demonstrated aneurysm. Normal inferior vena cava. Normal retroperitoneum. Medina catheter within the collapsed bladder. Normal abdominal wall. There are diffuse degenerative changes of the visualized lumbar spine. Sclerotic area of both femoral head suggestive of avascular necrosis. Moderate arthrosis of both hip joints. CT/Abdomen/Pelvis without Cont IMPRESSION: 1. Right middle lobe pneumonia. 2. Moderate right pleural effusion and small left pleural effusion with bibasilar atelectasis. 3. Medina catheter within the collapsed bladder. 4. Avascular arthrosis of both femoral heads with moderate hip arthrosis. Electronically Signed: Babatunde Gallo MD at 14:13 EDT Tel , Service support ,
--- NOTE | 2020-11-27 13:45 | RAD_ITS ---
STUDY: X-RAY CHEST REASON FOR EXAM: Male, 70 years old. SOB TECHNIQUE: Single AP portable view of the chest. COMPARISON: 11/17/2020 FINDINGS: Right internal jugular deep venous line which is unchanged. Left subclavian dual-lead pacemaker which is unchanged. Status post median sternotomy. Interval development of alveolar opacity in the lower right lung consistent with right middle lobe pneumonia. Suspect small right pleural effusion. There is moderate cardiac enlargement. Normal mediastinum and serjio. Normal visualized pulmonary arteries. Normal visualized aortic arch and descending thoracic aorta. Normal visualized thoracic spine. Normal visualized ribs, clavicles, and shoulders. There is no demonstrated abnormality of the visualized soft tissue structures of the upper abdomen. RAD/Chest 1 View (Portable) IMPRESSION: Interval development of right middle lobe pneumonia with a small right pleural effusion. Electronically Signed: Babatunde Gallo MD at 14:07 EDT Tel , Service support ,
--- NOTE | 2020-11-27 14:33 | ED.RN ---
called pharmacy regarding ATB.
--- NOTE | 2020-11-27 15:10 | CM.ED ---
SOCIAL WORK Referral Source: Dr. García Reason for Referral: Hospice Consult Discussed case with physician and patient's daughter/NUZHAT, Hillary [phone]. Requesting hospice referral to [facility]. Call to [facility], referral packet faxed. Saige Ontiveros, CATEGORY DEVELOPMENT ANALYST, INFORMATION SECURITY ARCHITECT
--- NOTE | 2020-11-27 15:43 | ED.RN ---
GAVE REPORT TO SVETLANA MOLINA, STATES I WILL HAVE [place] COME ON OVER.
[2020-11-27] MEDS: fentaNYL 100 MCG/2 ML Ampul 25 MCG IV (16:20)
--- NOTE | 2020-11-27 16:26 | PN.HOSP_ITS ---
Documented by User: Richard LINDSAY 11/27/20 16:53 Subjective Subjective: Patient is a 70-year-old male who presents to the ED at [facility] on 11/27/2020 with a chief complaint of shortness of breath. Per patient daughter, patient has been increasingly somnolent since yesterday and more so today with increased shortness of breath. Patient unable to provide any history as he was lethargic and sleeping on my examination. Of note, patient was recently hospitalized due to pulmonary embolism. Past medical history is significant for PE, CHF with ischemic cardiomyopathy hypertension COPD and chronic oxygen dependence. Work-up in the ED was significant for leukocytosis of 17,000. INR of 4.7. A creatinine of 1.4. Elevated troponin at 0.1 and a BNP of 2000. Chest x-ray demonstrated right-sided infiltrate with an internal jugular venous catheter. Antibiotics and aztreonam were initiated in the ED and a conversation of palliative care versus hospice care was initiated with the patient. Objective Data Objective Data Vital Signs: Vital Signs Temp Pulse Resp BP Pulse Ox 98 F 82 26 H 86/73 L 97 11/27/20 16:24 11/27/20 16:24 11/27/20 16:24 11/27/20 16:24 11/27/20 15:44 Oxygen Flow Rate (L/min) 2 Oxygen Delivery Method Nasal Cannula Weight: 177 lb 4.026 oz Body Mass Index (BMI) 26.2 Finger Stick Blood Glucose 195 Intake & Output: Intake and Output for Last 24 Hours 11/25/20 11/26/20 11/27/20 23:59 23:59 23:59 Intake Total 650 / 650 Output Total 600 / 600 Balance 50 / 50 Lab / Micro Data Result Diagrams: 11/27/20 12:40 11/27/20 12:40 Labs: Laboratory Results - last 24 hr 11/27/20 11/27/20 11/27/20 12:00 12:40 12:40 WBC 17.6 H RBC 4.08 L Hgb 11.5 L Hct 36.1 L MCV 88.5 MCH 28.2 MCHC 31.9 L RDW Std Deviation 52.1 H RDW Coeff of Maggie 16.0 H Plt Count 188 MPV 11.2 Immature Gran % (Auto) 0.800 Neut % (Auto) 91.6 H Lymph % (Auto) 2.4 L [place] % (Auto) 5.1 Eos % (Auto) 0.0 Baso % (Auto) 0.1 Absolute Neuts (auto) 16.2 H Absolute Lymphs (auto) 0.43 L Nucleated RBC % 0.2 Platelet Estimate ADEQUATE Polychromasia RARE Hypochromasia 1+ PT 43.7 H INR 4.7 H* APTT 46.9 H Sodium Potassium Chloride Carbon Dioxide Anion Gap BUN Creatinine Estim Creat Clear Calc Est GFR (MDRD) Af Amer Est GFR (MDRD) Non-Af BUN/Creatinine Ratio Glucose Lactic Acid Calcium Total Bilirubin AST ALT Alkaline Phosphatase Troponin I B-Natriuretic Peptide Total Protein Albumin Globulin Albumin/Globulin Ratio Urine Color Yellow Urine Clarity Clear Urine pH 7.0 Ur Specific [place] 1.010 Urine Protein 100 H Urine Glucose (UA) Normal Urine Ketones 5 H Urine Occult Blood 150 H Urine Nitrite Negative Urine Bilirubin 1 H Urine Urobilinogen 12 H Ur Leukocyte Esterase 25 H Urine RBC 0 SEEN Urine WBC 5-10 SEEN Ur Squamous Epith Cells 0 SEEN Amorphous Sediment 1+ Urine Bacteria 2+ Fine Granular Casts 5-10 SEEN Urine Mucus 0 SEEN 11/27/20 11/27/20 11/27/20 12:40 12:40 12:40 WBC RBC Hgb Hct MCV MCH MCHC RDW Std Deviation RDW Coeff of Maggie Plt Count MPV Immature Gran % (Auto) Neut % (Auto) Lymph % (Auto) [place] % (Auto) Eos % (Auto) Baso % (Auto) Absolute Neuts (auto) Absolute Lymphs (auto) Nucleated RBC % Platelet Estimate Polychromasia Hypochromasia PT INR APTT Sodium 134 L Potassium 3.7 Chloride 96 L Carbon Dioxide 31.0 Anion Gap 7 BUN 50 H Creatinine 1.48 H Estim Creat Clear Calc 47.11 Est GFR (MDRD) Af Amer 61 Est GFR (MDRD) Non-Af 50 L BUN/Creatinine Ratio 33.8 H Glucose 64 L Lactic Acid 1.5 Calcium 7.8 L Total Bilirubin 2.30 H AST 183 H ALT 542 H Alkaline Phosphatase 292 H Troponin I 0.107 H B-Natriuretic Peptide 2205.7 H Total Protein 5.9 L Albumin 2.4 L Globulin 3.5 Albumin/Globulin Ratio 0.7 L Urine Color Urine Clarity Urine pH Ur Specific [place] Urine Protein Urine Glucose (UA) Urine Ketones Urine Occult Blood Urine Nitrite Urine Bilirubin Urine Urobilinogen Ur Leukocyte Esterase Urine RBC Urine WBC Ur Squamous Epith Cells Amorphous Sediment Urine Bacteria Fine Granular Casts Urine Mucus Micro: Microbiology 11/27/20 11:40 Nasal Secretion SARS-CoV-2 Antigen (Rapid) - Final ABG Data ABG results: ABG 11/27/20 12:05 Specimen Type ART Sample Site L Brach pH 7.43 Bicarbonate Actual 28.5 H Total CO2 30 Base Excess 4 H O2 Saturation 88 L ABG pCO2 43.3 ABG pO2 54 L O2 Delivery Device Cannula Liter Flow 2.5 Radiography Diagnostic Testing: Radiology Impression Abdomen/Pelvis CT 11/27/20 13:40 IMPRESSION: 1. Right middle lobe pneumonia. 2. Moderate right pleural effusion and small left pleural effusion with bibasilar atelectasis. 3. [place] catheter within the collapsed bladder. 4. Avascular arthrosis of both femoral heads with moderate hip arthrosis. Electronically Signed: Babatunde Gallo MD at 14:13 EDT Tel , Service support , Chest X-Ray 11/27/20 13:45 IMPRESSION: Interval development of right middle lobe pneumonia with a small right pleural effusion. Electronically Signed: Babatunde Gallo MD at 14:07 EDT Tel , Service support , Physical Exam Narrative See subjective. Const Orientation / Consciousness: confused, disoriented and lethargic HEENT head/scalp atraumatic Head and Scalp: normocephalic Eyes EOMs intact bilaterally Neck no lymphadenopathy, supple and no JVD Neck Narrative: Internal jugular venous catheter insert into the right side of the neck. Resp normal respiratory effort and no retractions Cardio regular rate, regular rhythm, no murmurs and no rub GI normal to inspection, nondistended, normoactive bowel sounds and soft to palpati on Extremity normal to inspection Skin no rashes or lesions noted Neuro Neuro Narrative: Unable to assess neurological status as patient was somnolent. Sensorium / Orientation: confused, lethargic and somnolent Psych Psych Narrative: Unable to assess, see above. Assessment & Plan Assessment/Plan (1) Pneumonia: Status: Acute Code(s): J18.9 - Pneumonia, unspecified organism Qualifiers: Laterality: bilateral Lung location: unspecified part of lung Pneumonia type: due to Pneumococcus Qualified Code(s): J13 - Pneumonia due to Streptococcus pneumoniae (2) Acute metabolic encephalopathy: Status: Acute Code(s): G93.41 - Metabolic encephalopathy Plan: Patient is a 70-year-old male who presents to the ED at [facility] on 11/27/2020 with a chief complaint of shortness of breath. Per patient daughter, patient has been increasingly somnolent since yesterday and more so today with increased shortness of breath. Patient unable to provide any history as he was lethargic and sleeping on my examination. Of note, patient was re cently hospitalized due to pulmonary embolism. Work-up in the ED was significant for leukocytosis of 17,000. INR of 4.7. A creatinine of 1.4. Elevated troponin at 0.1 and a BNP of 2000. Chest x-ray demonstrated right-sided infiltrate with an internal jugular venous catheter in the right side of the neck. CT of the abdomen/pelvis demonstrated a right middle lobe pneumonia and moderate right pleural effusion and small left pleural effusion with bibasilar atelectasis. Antibiotics and aztreonam were initiated in the ED and a conversation of palliative care versus hospice care was initiated with the patient. Given patient's significant medical history to include recent admission for treatment of PE, ischemic cardiomyopathy with chronic CHF, presence of implantable cardio defibrillator, coronary angioplasty implant and graft, stented coronary artery, hypertension, COPD and chronic oxygen dependence a discussion of hospice versus hospital admission was had with the patient's daughter. It was discussed with the patient that if her father was admitted, that his quality of life upon discharge would be significantly reduced. Patient daughter was informed that end of life care would be appropriate for her father and she was reassured that he would be kept comfortable throughout his stay in hospice. Patient was approved for admission into hospice care and will be transported via squad. Patient seen by Richard Pacheco PA-C, under the supervision of Dr. Barkley. Documented by User: Dr. Hernando Barkley MD 11/27/20 18:15 Objective Data Lab / Micro Data Result Diagrams: 11/27/20 12:40 11/27/20 12:40 Assessment & Plan Assessment/Plan (1) Acute on chronic systolic (congestive) heart failure: Status: Chronic Code(s): I50.23 - Acute on chronic systolic (congestive) heart failure (2) Acute liver failure: Status: Acute Code(s): K72.00 - Acute and subacute hepatic failure without coma (3) Pulmonary embolism: Status: Acute Code(s): I26.99 - Other pulmonary embolism without acute cor pulmonale Qualifiers: Pulmonary embolism type: single subsegmental (without acute cor pulmonale) Qualified Code(s): I26.93 - Single subsegmental pulmonary embolism without acute cor pulmonale Addendum Addendum: Dr. Barkley: I personally reviewed the chart and examined the patient, and agree with the above findings. 70-year-old male with an extensive previous medical history with acute on chronic systolic CHF with an EF down to 10%, was recently discharged from the hospital has had multiple admissions over the last several months. He was found somnolent by his daughter at longterm facility and was brought into the hospital. He is hypotensive with pneumonia and sepsis due to the pneumonia he also recently had PEs as well as liver failure with an AST of 183 and an ALT of 542 and an alk phos of 292. His INR while not being on Coumadin is 4.7. Less than a week ago, these labs were normal. The daughter who is at bedside and his POA was curious about proceeding with hospice care. Hospice was contacted and they came in and evaluated the patient and felt that he was appropriate and therefore per the daughter's wishes he was transported to the inpatient unit for hospice care. Visit Charges Inpatient E&M: [id number] [facility] L[facility]
[2020-11-27] MEDS: Albuterol 2.5 MG/3 ML VIAL.NEB. INHALATION (16:45)
== END 2020-11-27 17:30 | disposition skilled nursing facility (03) ==
LOC: ED 14:36 → PCU 14:57
PROVIDERS: Emergency Provider Emergency Medicine; PCP Family Medicine; Visit Provider Family Medicine
DX: R06.02 Shortness of breath (principal); J18.9 Pneumonia, unspecified organism; R79.1 Abnormal coagulation profile; G93.41 Metabolic encephalopathy; N39.0 Urinary tract infection, site not specified; I13.0 Hypertensive heart and chronic kidney disease with heart failure and stage 1 through stage 4 chronic kidney disease, or unspecified chronic kidney disease; J90 Pleural effusion, not elsewhere classified; G89.29 Other chronic pain; I25.10 Atherosclerotic heart disease of native coronary artery without angina pectoris; I25.5 Ischemic cardiomyopathy; I50.23 Acute on chronic systolic (congestive) heart failure; J44.0 Chronic obstructive pulmonary disease with (acute) lower respiratory infection; K21.9 Gastro-esophageal reflux disease without esophagitis; M10.9 Gout, unspecified; N18.30 Chronic kidney disease, stage 3 unspecified; Z79.01 Long term (current) use of anticoagulants; Z79.1 Long term (current) use of non-steroidal anti-inflammatories (NSAID); Z79.52 Long term (current) use of systemic steroids; Z79.82 Long term (current) use of aspirin; Z86.711 Personal history of pulmonary embolism; Z87.891 Personal history of nicotine dependence; Z95.5 Presence of coronary angioplasty implant and graft; Z99.81 Dependence on supplemental oxygen
CPT/HCPCS: 36556; 36600; 51702; 71045; 74176; 80053; 81001; 82803; 83605; 83880; 84484; 85025; 85610; 85730; 87040; 87426; 93005; 94640; 96365; 96367; 99285; J7030; A4216